=== PATIENT | male | born 1950 | race Caucasian/White ===

== ENCOUNTER 2023-04-23 09:35 | Day surgery (SDC) | payer OTHER, SELFPAY ==
--- NOTE | 2023-04-23 08:40 | P.ON_ITS ---
Date of procedure: 04/23/23 Procedure: Left sacroiliac joint injection - diagnostic Preop diagnosis includes pain secondary to Sacrum Disorder Postop diagnosis same Performed under fluoroscopic guidance Immediate complications none Anesthesia:none Solution used for injection: 2.5 milliliters 0.25% Marcaine Time out process compliant After informed consent obtained patient was brought to the procedure room placed in the prone position skin overlying the area was prepped and draped in a sterile fashion using betadine. 25 gauge spinal needle Insert over each of the target areas identified in fluoroscopy corresponding needles were advanced Under fluoroscopic guidance until the target/targets encountered , no indication of i ntravascular or Intraneuronal needle tip placement. Solution injected .needles removed post procedurally. patient transferred to recovery room in stable condition to be discharged home after meeting criteria Surgeon: Lisa Palm
[2023-04-23 10:07] VITALS: BP 123/72; PULSE 94; RESP 18; TEMP 36.3
[2023-04-23 10:53] VITALS: BP 125/73; PULSE 85; RESP 20; O2SAT 95
[2023-04-23] MEDS: METHYLPREDNISOLONE ACETATE 80 MG/ML VIAL INJ (10:55)
[2023-04-23] MEDS: BUPIVACAINE HCL 0.25% PF 25 MG/10 ML VIAL INJ (10:56)
[2023-04-23 10:58] VITALS: BP 132/78; PULSE 82; RESP 20; O2SAT 91
== END 2023-04-23 11:01 | disposition home or self-care (01) ==
LOC: SURGOUT 09:36
PROVIDERS: PCP Family Medicine; Visit Provider Anesthesiology Pain Medicine
DX: M53.3 Sacrococcygeal disorders, not elsewhere classified (principal)
CPT/HCPCS: 27096; J1040

== ENCOUNTER 2023-05-17 08:38 | Outpatient (OUT) | payer OTHER, SELFPAY ==
--- NOTE | 2023-05-17 08:53 | PM.CN ---
Consult Note: HPI Data of Consult Patient: known to practice within the last 3 years Consult date: 05/17/23 Requesting Physician: MYLENE ACUÑA NP Primary Care Provider: SUMANTH BECK Consult Narrative Narrative: Patient is here for f/u of left SI joint injection 04/23/23 . He received 100% relief of pain with increased fx. Pain today is left lower back SI area. No new sensorimotor or bowel or bladder issues. No adverse medication SE. Medication regimen assists patient with being better able to complete ADLs. cc:: CC: MYLENE ACUÑA NP Review of Systems ROS Status of ROS 10 or more systems reviewed and unremarkable except as noted in history and below Musculoskeletal Reports: back pain Meds Home Medications and Allergies Home Medications Medication Instructions Recorded Confirmed Type OSCAL WITH D PO .QD 04/18/23 History baclofen 10 mg tablet 10 mg PO TID PRN muscle spasm 04/18/23 04/23/23 History diclofenac sodium 75 mg 75 mg PO BID 04/18/23 04/23/23 History tablet,delayed release glucosamine-chondroitin 250 mg-200 2 tab PO .QD 04/18/23 04/23/23 History mg tablet (Osteo Bi-Flex) multivitamin 1 tab PO DAILY 04/18/23 04/23/23 History oxycodone-acetaminophen 5 mg-325 1 tab PO BID PRN pain 04/18/23 04/23/23 History mg tablet Allergies Allergy/AdvReac Type Severity Reaction Status Date / Time No Known Drug Allergies Allergy Verified 04/23/23 10:04 Exam Constitutional Documenting provider has reviewed patient's vital signs: yes Common normals: no apparent distress, average body habitus, oriented x3, no limitations, healthy appearing, alert and well nourished General appearance: cooperative, comfortable and well developed Orientation/consciousness: Yes awake, Yes oriented to person, Yes oriented to place and Yes oriented to time HENMT Common normals: normocephalic and moist oral mucous membranes Respiratory Common normals: normal respiratory effort, no retractions and no use of accessory muscles Effort & inspection: able to speak in complete sentences and symmetric chest movement Back & Pelvis Lumbar spine/lower back: normal to inspection, lumbar ROM normal, paraspinal muscle spasm and straight leg raise negative bilaterally Extremity Common normals: normal to inspection, normal capillary refill and no pedal edema Other: Muscle strength 5/5 bilat LE with intact sensation negative adrián, negative facet load Assessment and Plan Assessment and Plan (1) Sacroiliac joint pain: (2) Muscle spasm: Plan narcan RX percocet refill f/u 3 months
== END 2023-05-17 08:39 | disposition home or self-care (01) ==
LOC: PM 08:39
PROVIDERS: PCP Family Medicine; Visit Provider Nurse Practitioner
DX: M53.3 Sacrococcygeal disorders, not elsewhere classified (principal); M62.838 Other muscle spasm
CPT/HCPCS: G0463

== ENCOUNTER 2023-07-10 07:54 | Outpatient (OUT) | payer SELFPAY ==
--- NOTE | 2023-07-10 07:57 | PM.CN ---
Consult Note: HPI Data of Consult Patient: known to practice within the last 3 years Requesting Physician: Danielle Davila NP Primary Care Provider: SUMANTH BECK Consult Narrative Reason for consult: f/u Narrative: Regan ramirez pleasant 73 year old male presents for evaluation and management of chronic SIJ pain. Patient reports pain is well controlled since last injection in April, would like to hold off on additional injections at this time and return as pain worsens for repeat injection. cc:: CC: Danielle Davila NP Review of Systems ROS Status of ROS 10 or more systems reviewed and unremarkable except as noted in history and below Musculoskeletal Reports: joint pain (left SIJ) PFSH PFS Medical History (Updated 06/13/23 @ 13:44 by Rosalind Franco) Meds Home Medications and Allergies Home Medications Medication Instructions Recorded Confirmed Type OSCAL WITH D PO .QD 04/18/23 History baclofen 10 mg tablet 10 mg PO TID PRN muscle spasm 04/18/23 04/23/23 History diclofenac sodium 75 mg 75 mg PO BID 04/18/23 04/23/23 History tablet,delayed release glucosamine-chondroitin 250 mg-200 2 tab PO .QD 04/18/23 04/23/23 History mg tablet (Osteo Bi-Flex) multivitamin 1 tab PO DAILY 04/18/23 04/23/23 History oxycodone-acetaminophen 5 mg-325 1 tab PO BID PRN pain 04/18/23 04/23/23 History mg tablet oxycodone-acetaminophen 5 mg-325 1 tab PO BID PRN pain #60 tabs 06/14/23 Rx mg tablet (Percocet) Allergies Allergy/AdvReac Type Severity Reaction Status Date / Time No Known Drug Allergies Allergy Verified 04/23/23 10:04 Exam Constitutional Documenting provider has reviewed patient's vital signs: yes Common normals: no apparent distress, oriented x3, healthy appearing, alert and well nourished General appearance: cooperative HENMT Common normals: normocephalic, hearing grossly normal bilaterally and moist oral mucous membranes Head and scalp: normocephalic Eye Common normals: PERRL Pupil: PERRL Neck & C-Spine Common normals: full ROM General: normal visual inspection Chest Common normals: inspection of chest normal Respiratory Common normals: normal respiratory effort, no retractions and no use of accessory muscles Back & Pelvis Thoracic spine/upper back: normal to inspection Lumbar spine/lower back: normal to inspection, lumbar ROM normal and straight leg raise negative bilaterally Sacroiliac joints: SI joint(s) abnormal (left positive gaenslens, thigh thrust, FABERS) SI joint details: tender to palpation and pain elicited by compression of iliac crest maneuver Extremity Common normals: normal to inspection and full ROM Neuro Common normals: oriented x3, CN's II-XII intact bilaterally, moves all extremities, no focal motor deficits, no sensory deficits noted, deep tendon reflexes 2+ bilaterally and gait normal Sensorium/orientation: alert Motor exam: strength 5/5 throughout and no movement abnormalities noted Psych Common normals: mental status grossly normal, thought process normal, cooperative, affect normal, speech normal and activity/motor behavior normal Speech: normal speech Thought process: normal thought process Results Additional Findings Additional findings: I have checked an [place] report on this patient today and there are no aberrancies noted in the prescribing history.?? A drug screen was completed and reviewed within the last year, and if there has not been a drug screen completed we ordered one today to monitor higher risk, state monitored pain medication use. As part of providing excellent, safe, comprehensive care, the following was completed at our patient's visit: 1. A medication reconciliation and review to ensure accurate knowledge of current/active medications, including asking our patients to inform us about any [id number] medications or herbal remedies/nutritional supplements/alternative remedies. 2. A review to specifically ensure our patients have had annual screening for: elevated body mass index (BMI), tobacco use, screening for depression, and screening for unhealthy alcohol use. When screening is concerning, patients are provided with education and the specific recommendation to discuss the concerning health issue and treatment options with their primary care provider. Assessment and Plan Assessment and Plan (1) Sacroiliac joint pain: (2) Muscle spasm: Plan Repeat Left SIJ injection in 1-2 months or when patient is ready continue percocet 5-325mg BID PRN, narcan previously discussed and prescribed. No side effects from this medication continue baclofen 10mg TID PRN muscle spasms f/u 3 months or after injection
== END 2023-07-10 07:55 | disposition home or self-care (01) ==
PROVIDERS: PCP Family Medicine; Visit Provider Nurse Practitioner
DX: M62.838 Other muscle spasm (principal); M53.3 Sacrococcygeal disorders, not elsewhere classified
CPT/HCPCS: G0463

== ENCOUNTER 2023-09-19 07:59 | Outpatient (OUT) | payer OTHER, SELFPAY ==
--- NOTE | 2023-09-19 08:14 | PM.CN ---
Consult Note: HPI Data of Consult Patient: known to practice within the last 3 years Requesting Physician: Danielle Davila NP Primary Care Provider: SUMANTH BECK Consult Narrative Reason for consult: f/u Narrative: Regan Green a pleasant 73 year old male presents for evaluation and management of chronic sacroiliac joint pain, patient had >3 months of pain relief from last SIJ injection. Today rating pain 6/10 in left SIJ, feels like a stabbing pain. worse with activity. Patient finding benefit from current medication regimen, tolerating well without side effects cc:: CC: Danielle Davila NP Review of Systems ROS Status of ROS 10 or more systems reviewed and unremarkable except as noted in history and below Musculoskeletal Reports: joint pain PFSH PFSH Medical History Sacroiliitis, not elsewhere classified ?M46.1 - Sacroiliitis, not elsewhere classified (ICD-10) Meds Home Medications and Allergies Home Medications Medication Instructions Recorded Confirmed Type OSCAL WITH D PO .QD 04/18/23 History baclofen 10 mg tablet 10 mg PO TID PRN muscle spasm 04/18/23 04/23/23 History diclofenac sodium 75 mg 75 mg PO BID 04/18/23 04/23/23 History tablet,delayed release glucosamine-chondroitin 250 mg-200 2 tab PO .QD 04/18/23 04/23/23 History mg tablet (Osteo Bi-Flex) multivitamin 1 tab PO DAILY 04/18/23 04/23/23 History oxycodone-acetaminophen 5 mg-325 1 tab PO BID PRN pain 04/18/23 04/23/23 History mg tablet oxycodone-acetaminophen 5 mg-325 1 tab PO BID PRN pain #60 tabs 06/14/23 Rx mg tablet (Percocet) oxycodone-acetaminophen 5 mg-325 1 tab PO BID PRN pain #60 tabs 07/10/23 Rx mg tablet (Percocet) oxycodone-acetaminophen 5 mg-325 1 tab PO BID PRN pain #60 tabs 08/15/23 Rx mg tablet (Percocet) Allergies Allergy/AdvReac Type Severity Reaction Status Date / Time No Known Drug Allergies Allergy Verified 04/23/23 10:04 Exam Constitutional Documenting provider has reviewed patient's vital signs: yes Common normals: no apparent distress, oriented x3, healthy appearing, alert and well nourished General appearance: cooperative HENMT Common normals: normocephalic, hearing grossly normal bilaterally and moist oral mucous membranes Head and scalp: normocephalic Eye Common normals: PERRL Pupil: PERRL Neck & C-Spine Common normals: full ROM General: normal visual inspection Chest Common normals: inspection of chest normal Respiratory Common normals: normal respiratory effort, no retractions and no use of accessory muscles Back & Pelvis Sacroiliac joints: SI joint(s) abnormal (left positive gaenslens, thigh thrust, FABERS) SI joint details: tender to palpation and pain elicited by compression of iliac crest maneuver Extremity Common normals: normal to inspection and full ROM Neuro Common normals: oriented x3, CN's II-XII intact bilaterally, moves all extremities, no focal motor deficits, no sensory deficits noted, deep tendon reflexes 2+ bilaterally and gait normal Sensorium/orientation: alert Motor exam: strength 5/5 throughout and no movement abnormalities noted Psych Common normals: mental status grossly normal, thought process normal, cooperative, affect normal, speech normal and activity/motor behavior normal Speech: normal speech Thought process: normal thought process Assessment and Plan Assessment and Plan (1) Sacroiliac joint pain: (2) Chronic prescription opiate use: Assessment and Plan: I have refilled the patient's opioid prescriptions at the above noted dose and schedule.? I feel these medications are improving the patient's quality of life and allow them to tolerate activities of daily living as well as participate in recreational activity.? The patient does not report intolerable side effects. The patient is NOT opioid naive and non-pharmacologic and non-opioid treatment has failed to significantly relieve the patient's pain and improve functionality. The patient has a diagnosis that is related to a somatic or visceral pain etiology. ? ?? I reviewed with the patient the potential risks and side effects with the use of? opioid medications including but not limited to respiratory depression,? sedation, and even . I verified the patient has access to naloxone should? these effects occur. I advised the patient to avoid the use of any other? sedation substances including alcohol, THC, and benzodiazepines while? taking opioid medications due to the risk of compounding side effects and? detrimental outcomes. I reviewed the [employer], pain treatment agreement, urine? drug screen, and opioid start talking forms. The patient was advised to let? their family know they had Naloxone in case they would need to administer? the medication.? ?? A drug screen was completed within the last year, and no aberrancies were noted regarding their use of controlled substances. The patient understands they are subject to the terms and conditions of the pain contract that they have signed. ? ?? I have checked an [place] report on this patient today and there are no aberrancies noted in the prescribing history.? Plan left SIJ injection under fluoroscopy increase tizanidine 4mg tab 1-2 tabs TID PRN muscle spasms patient again inquiring about marijuana as he was previously utilizing opioids and marijuana with last pain management physician. Patient educated on our policy and we will not prescribe opioids if patient utilizes marijuana. continue percocet 5-325 BID PRN moderate to severe pain f/u after SIJ injection
== END 2023-09-19 08:00 | disposition home or self-care (01) ==
PROVIDERS: PCP Family Medicine; Visit Provider Nurse Practitioner
DX: M53.3 Sacrococcygeal disorders, not elsewhere classified (principal); Z79.891 Long term (current) use of opiate analgesic
CPT/HCPCS: G0463

== ENCOUNTER 2023-10-24 06:30 | Day surgery (SDC) | payer OTHER, SELFPAY ==
[2023-10-24 06:59] VITALS: BP 123/78; PULSE 80; RESP 16; O2SAT 99
[2023-10-24] MEDS: BUPIVACAINE HCL 0.25% PF 25 MG/10 ML VIAL 4 ML INJ (07:28)
[2023-10-24] MEDS: METHYLPREDNISOLONE ACETATE 80 MG/ML VIAL INJ (07:28)
--- NOTE | 2023-10-24 08:48 | W.PM.PROCNOT ---
Date of procedure: 10/24/23 Pre-op diagnosis: sacroiliitis Post-op diagnosis: same as pre-op Procedure: Left sacroiliac joint injection Preop diagnosis includes pain secondary to Sacroiliitis Performed under fluoroscopic guidance Immediate complications none Anesthesia:none Solution used for injection: 0.25% Marcaine 3ml, Depo 80mg Time out process compliant After informed consent obtained patient was brought to the procedure room placed in the prone position skin overlying the area was prepped and draped in a sterile fashion using betadine. 25 gauge spinal needle Insert over each of the target areas identified in fluoroscopy corresponding needles were advanced Under fluoroscopic guidance until the target/targets encountered , no indication of intravascular or Intraneuronal needle tip placement. Solution injected .needles removed post procedurally. patient transferred to recovery room in stable condition to be discharged home after meeting criteria Anesthesia: Local Surgeon: Lisa Palm Condition: stable
--- OUTSIDE RECORDS SUMMARY | 2023-10-24 10:20 | XMS_ITS | CCD ---
Author Name Unknown Address [address] [place] [address] Organization [facility] Care Team Providers Care Decision Analyst Name Role Phone PHYSICIAN, DEFAULT Unavailable Unavailable PHYSICIAN, DEFAULT Unavailable Unavailable EBRAHEIM, BILLY Unavailable Unavailable EBRAHEIM, BILLY Unavailable Unavailable SELF, REFERRED Unavailable Unavailable SELF, REFERRED Unavailable Unavailable SOSA ., DR ROMERO Ruiz Attending Unavailable SOSA ., DR ROMERO Ruiz Admitting Unavailable DEFRANCE, DR JULIO Primary Care Unavailable SOSA ., DR ROMERO Ruiz Consulting Unavailable GEETAANTONIA CRUZ Consulting Unava ilable SOSA ., DR ROMERO Ruiz Attending Unavailable SOSA ., DR ROMERO Ruiz Admitting Unavailable SALMERON ., ISELA Consulting Unavailable DEFRANCE, DR JULIO Primary Care Unavailable SOSA ., DR ROMERO Ruiz Attending Unavailable SOSA ., DR ROMERO uRiz Admitting Unavailable SALMERON ., ISELA Consulting Unavailable DEFRANCE, DR JULIO Primary Care Unavailable SOSA ., DR ROMERO Ruiz Attending Unavailable SOSA ., DR ROMERO Ruiz Admitting Unavailable DEFRANCE, DR JULIO Primary Care Unavailable SOSA ., DR ROMERO Ruiz Consulting Unavailable DEFRANCE, DR JULIO Consulting Unavailable SOSA ., DR ROMERO Ruiz Attending Unavailable SOSA ., DR ROMERO Ruiz Admitting Unavailable SALMERON ., ISELA Consulting Unavailable DEFRANCE, DR JULIO Primary Care Unavailable LAKSHMIPATHY ., LBAKE Consulting Ceci vailable LAKSHMIPATHY ., BLAKE Attending Ceci vailable LAKSHMIPATHY ., BLAKE Admitting Ceci vailable DEFRANCE, DR JULIO Primary Care Unavailable HALKER .MYLENE Consulting Unavailable SOSA ., DR ROMERO Ruiz Admitting Unavailable DEFRANCE, DR JULIO Primary Care Unavailable SOSA ., DR ROMERO Ruiz Consulting Unavailable SOSA ., DR ROMERO Ruiz Attending Unavailable LAKSHMIPATHY ., NARENDYUMI Admitting Ceci vailable LAKSHMIPATHY ., NARENDYUMI Attending Ceci MYLENE Anton Unavailable DEFRANCE, DR JULIO Primary Care Unavailable SHEILA ., DR ROMERO Ruiz Attending Unavailable SOSA ., DR ROMERO Ruiz Admitting Unavailable DEFRANCE, DR JULIO Primary Care Unavailable SHEILA ., DR ROMERO Ruiz Consulting Unavailable JARON ., ISELA Attending Unavailable SALMERON ., ISELA Admitting Unavailable DEFRANCE, DR JULIO Primary Care Unavailable ZIEBER, DR ALESSANDRO Gudino Consulting Unavailable SALMERON ., ISELA Consulting Unavailable SHEILA ., DR ROMERO Ruiz Attending Unavailable SOSA ., DR ROMERO Ruiz Admitting Unavailable DEFRANCE, DR JULIO Primary Care Unavailable SALMERON ., ISELA Consulting Unavailable Charity Barkley Unavailable MD Charity Barkley Attending Provider Charity Barkley Attending Unavailable NON STAFF Primary Care Unavailable Charity Barkley Admitting Unavailable NON STAFF Primary Care Unavailable Charity Barkley Admitting Unavailable Charity Barkley Attending Unavailable NON STAFF Primary Care Provider Unavailabl e Medications Current Medications Medication Drug Class(es) Dates Sig (Normalized) Sig (Original) Acetaminophen / oxyCODONE (4 sources) Opioid Agonist Percocet Active Calcium (4 sources) Phosphate Binder, Calcium Calcium + D3 Active Centrum Silver (4 sources) Centrum Silver Active Chondroitin Sulfates / Glucosamine (4 sources) Osteo Bi-Flex On e Per Day Active Diclofenac (4 sources) Nonsteroidal Anti-inflammatory Drug Diclofenac Active Elderberry preparation (4 sources) Elderberry 500 M G as directed Orally Active Super B Complex (4 sources) Super B Complex Active tiZANidine 4 mg oral tablet (4 sources) Central alpha-2 Adrenergic Agonist take 1 tablet by mouth every eight hours tiZANidine HCl 4 MG 1 tablet as needed Orally Three times a day Active Completed/Discontinued Medications Medication Drug Class(es) Dates Sig (Normalized) Sig (Original) triamcinolone acetonide 40 mg/ml injectable suspension (7 sources) Corticosteroid Start: 07-23-2023 Kenalog-40 Aug, 40 mg Start: 05-21-2023 Kenalog-40 May, 20 mg Problems Active Problems Problem Classification Problem Date Documented Date Episodic/Chronic Osteoarthritis (20 sources) Bilateral primary osteoarthritis of hip; Translations: [Unilateral primary osteoarthritis of first carpometacarpal joint, left hand] Onset: 04-16-2018 Chronic Other connective tissue disease (1 source) Arthrodesis status; Translations: [ARTHRODESIS STATUS] Onset: 04-16-2018 Episodic Other connective tissue disease (1 source) Other muscle spasm; Translations: [OTHER MUSCLE SPASM] Onset: 04-03-2023 Episodic Other connective tissue disease (2 sources) Pain in left hand; Translations: [PAIN IN LEFT HAND] Onset: 10-01-2022 Episodic Other connective tissue disease (3 sources) Impingement syndrome of right shoulder Episodic Other injuries and conditions due to external causes (1 source) Personal history of (healed) traumatic fracture; Translations: [PERSONAL HISTORY OF (HEALED) TRAUMATIC FRACTURE] Onset: 04-16-2018 Episodic Other nervous system disorders (5 sources) Other chronic pain; Translations: [OTHER CHRONIC PAIN] Onset: 10-11-2022 Chronic Other non-traumatic joint disorders (4 sources) Other specified arthritis, left hand; Translations: [OTHER SPECIFIED ARTHRITIS LEFT HAND] Onset: 02-21-2023 Chronic Other non-traumatic joint disorders (3 sources) Pain in right shoulder Episodic Spondylosis; intervertebral disc disorders; other back problems (18 sources) Sacroiliitis, not elsewhere classified; Translations: [Other intervertebral disc degeneration, lumbar region] Onset: 04-16-2018 Chronic Spondylosis; intervertebral disc disorders; other back problems (6 sources) Sacrococcygeal disorders, not elsewhere classified; Translations: [Intervertebral disc disorders with radiculopathy, lumbar region] Onset: 07-17-2022 Episodic Sprains and strains (3 sources) Other sprain of right shoulder joint, initial encounter Episodic Superficial injury; contusion (3 sources) Contusion of right shoulder, initial encounter Episodic Unclassified (2 sources) Unknown / UNK(Unknown) Onset: 04-16-2018 Unclassified (4 sources) LOW BACK PAIN, UNSPECIFIED; Translations: [LOW BACK PAIN, UNSPECIFIED] Onset: 10-11-2022 Unclassified (1 source) CONTACT W/AND (SUSP) EXPOS COVID-19; Translations: [CONTACT W/AND (SUSP) EXPOS COVID-19] Onset: 10-11-2022 Unclassified (1 source) Pain in right shoulder; Translations: [Pain in right shoulder] Onset: 06-24-2023 Unclassified (1 source) Pain in left hand; Translations: [Pain in left hand] Onset: 05-21-2023 Past or Other Problems Problem Classification Problem Date Documented Da te Episodic/Chronic Unclassified (1 source) LOW BACK PAIN, UNSPECIFIED; Translations: [LOW BACK PAIN, UNSPECIFIED] Onset: 11-22-2022 Results Test Name Value Interpretation Reference Range Facil ity XR shoulder RT min 2V*on XR shoulder RT min 2V* [facility] Main [address] [address] XRay Report Signed Patient: Regan Green MR#: [id number] 63 : 1950 Acct:[id number] Age/Sex: 73 / M ADM Date: 06/24/23 Loc: [facility] [place] Room: Type: [facility] CLI Attending Dr: Charity Barkley MD Copies to: Charity Barkley MD Ordering Provider: Charity Barkley MD Date of Service: 06/24/23 XR/XR shoulder RT min 2V*: Acute pain of right shoulder 3 views RIGHT shoulder plain film HISTORY: RIGHT shoulder pain COMPARISON: None ACUTE FINDINGS: None DEGENERATIVE CHANGE: Acromioclavicular marginal spurring inferiorly. Acromial spurring. Spurring of the glenohumeral joint SOFT TISSUE FINDINGS: Unremarkable JOINT EFFUSION: None POSTOP CHANGES: None BONY MINERALIZATION: Adequate XR/XR shoulder RT min 2V* IMPRESSION: Degenerative change. Impression dictated by: Artie Goldsmith M.D.06/24/2023 12:37 PM Dictation Location: [place] [address] Transcribed By: [facility] 06/24/23 1237 Dictated By: Artie Goldsmith DO 06/24/23 1236 Signed By: 06/24/23 1237 Normal [facility] XR hand LT min 3V*on 023 XR hand LT min 3V* [facility] Main [address] [address] XRay Report Signed Patient: Regan Green MR#: [id number] [birth year] : 1950 Acct:[id number] Age/Sex: 73 / M ADM Date: 05/21/23 Loc: [facility] [place] Room: Type: REG CLI Attending Dr: Charity Barkley MD Copies to: Charity Barkley MD Ordering Provider: Charity Barkley MD Date of Service: 05/21/23 XR/XR hand LT min 3V*: Left hand pain LEFT HAND - 5 views REASON FOR EXAM: Severe left CMC joint pain of the thumb for months. COMPARISON: Left hand series 01/18/2022 FINDINGS: No focal soft tissue abnormality. Severe degenerative changes involving the CMC joint of the thumb. No acute bony process is seen. IP joints demonstrate mild degenerative changes. Mild degenerative changes of the MCP joints of the first and third digits. No bony erosions. XR/XR hand LT min 3V* IMPRESSION: DEGENERATIVE CHANGES INVOLVING THE LEFT HAND, WORST AT THE CMC JOINT OF THE THUMB. NO ACUTE BONY PROCESS. Impression dictated by: Regan Vigil Jr., D.OLeonides05/21/2023 1:53 PM Dictation Location: [place] [address] Transcribed By: [facility] 05/21/23 1353 Dictated By: Regan Vigil Jr, DO 05/21/23 1352 Signed By: 05/21/23 1353 [facility] Covid-19 PCR (CVDTBH)on SARS-CoV-2 (COVID-19) RNA YASMIN+probe Ql (Unsp spec) Not detected Normal NOT DETECTED [facility] Comment on above: Result Comment: This test is not yet jory roved or cleared by the [place] FDA. When there are no FDA-approved or cleared tests available, and other criteria are met, FDA can make tests available under an emergency access mechanism called an Emergency Use Authorization (EUA). The EUA for this test is supported by the [place] of Health and Human Service's (HHS's) declaration that circumstances exist to justify the emergency use of in vitro diagnostics for the detection and/or diagnosis of the virus that causes COVID-19. This EUA will remain in effect (meaning this test can be used) for the duration of the COVID-19 declaration justifying emergency of IVDs, unless it is terminated or revoked by FDA (after which the test may no longer be used). When diagnostic testing is negative, the possibility of a false negative should be considered in the context of a patient's recent exposures and the presence of clinical signs and symptoms consistent with SARS-CoV-2. Performed By: #### C [facility] #### [place] [address] Dr. Keely Fitzgerald MRI Shoulder w/o Lefton 02-03 MRI Shoulder w/o Left HISTORY: Lifting injury. Patient felt a pop and snap one month ago. COMPARISON: None available TECHNIQUE: Multiplanar multisequence MRI was performed of the left shoulder without contrast. FINDINGS: Degenerative changes of the acromioclavicular joint with moderate undersurface osteophyte formation. The acromion is curved. Coracoclavicular ligament is intact. Small amount of subacromial/subdeltoid bursal fluid. Full thickness tear of distal supraspinatus tendon at the footprint with retraction of torn fibers approximately 2.5 cm. Low-grade intrasubstance tear along the myotendinous junction of infraspinatus. Subscapularis and teres minor tendons are intact. No atrophy or fatty infiltration of the rotator cuff musculature. Full thickness tear of the intra-articular long head biceps tendon. Mildly displaced tear of the posterior superior labrum superimposed on anterior superior through posterior superior labral degeneration. No well-defined or measurable articular cartilage defect or subchondral bone marrow edema. No glenohumeral joint effusion. IMPRESSION: Full thickness tear of distal supraspinatus tendon at the footprint with retraction of torn fibers approximately 2.5 cm. Low-grade intrasubstance tear along the myotendinous junction of infraspinatus. Full thickness tear of the intra-articular long head biceps tendon. Mildly displaced tear of the posterior superior labrum superimposed on anterior superior through posterior superior labral degeneration. Report reported and signed by Boogie Modi on 02/23/2022 1229 Normal [facility] [employer] Operator Brenna 04-28-2021 CNPN Telephone (KeyprDorene) -------- REGAN GREEN ([id number]) 1950 Date Time Provider Department 04/28/21 OZZY PEREZ During your visit today, we recorded the following information about you: Iwona Mcginnis 04/28/2021 10:08 AM Signed PSA order mailed to home address Allergies As of Date: 04/28/2021 (No Known Allergies) Date Reviewed: 05/01/2017 Reviewed by: Michell Correia Ma - Fully Assessed Reason for Visit: Orders [681] Prescriptions as of 04/28/2021 Sig: ASPIRIN 81 MG TABLET,DELAYED * Take 81 mg by mouth once sharita* PERCOCET ORAL Take 1 tablet by mouth once d* SILDENAFIL (PULMONARY HYPERTE* Take 2-5 tablets by mouth one* OXYBUTYNIN CHLORIDE 5 MG TABL* Take 1 tablet by mouth every * KETOROLAC 10 MG TABLET Take 1 tablet by mouth every * DOCUSATE SODIUM 100 MG CAPSULE Take 1 capsule by mouth twice* CIPROFLOXACIN 500 MG TABLET Take 1 tablet by mouth once d* Problem List As Of Date 04/28/2021 Noted Resolved Malignant neoplasm of prostate (HCC) [C61] 02/07/2017 Partial small bowel obstruction (HCC) [K56.600] 03/12/2017 03/12/2017 Rash/skin eruption [R21] 03/12/2017 UTI (urinary tract infection) [N39.0] 05/08/2017 Encounter Status:Closed by IWONA BUENO on 04/28/21 Normal [facility] PELVIS 1 OR 2 [facility] 04-16-20 18 [facility] [address] [place] [id number] ==Patient Name: REGAN GREEN : 1950ex: MAge: Race: WhiteMRN: [id number]. Location: 84Patient Status: OVisit #: [id number] Date: 04/16/2018 9:20:00 AMCompleted Date: 04/16/2018 09:18 AMRequesting Provider: BILLY KILLIAN Attending Provider: BILLY KILLIAN Report Copy To: Signs & Symptoms: M46.1 Sacroiliitis, not elsewhere classified W31Ijfxgjw: AthenaComments: , , , Ordering Provider - BILLY KILLIAN MD , Exam: PELVIS 1 OR 2 VWSAccession #: [id number] =========PELVIS 1 OR 2 VWS 04/16/2018 9:18 AM EDT SIGNS AND SYMPTOMS: M46.1 Sacroiliitis, not elsewhere classified I10 TECHNOLOGIST COMMENTS: ortho check up for pelvis area QUESTION FOR THE RADIOLOGIST: , , , Ordering Provider - BILLY KILLIAN MD , PROTOCOL: AP(PA) view was obtained. COMPARISON: May 27, 2008 FINDINGS: Soft tissues:Interval surgical clips along the pelvis with unchanged phlebolithsMinor heterotopic ossification along the left hip Bones:Posterior column and wall plate fixation of healing fracture Joints:Moderate bilateral hip osteoarthritisMild sacroiliac spurring and sclerosis IMPRESSION: 1. No acute abnormality2. Bilateral moderate hip osteoarthritis3. Pre-existing left posterior wall and column plate fixation of healed acetabular fracture Electronically signed by:Rios Le. Transcribed by: [email or web address], User Resident: Electronically Signed by: RIOS LE @ 04/16/2018 10:35 AM Normal [facility] Comment on above: Order Comment: , , , Ordering Provider - BILLY KILLIAN MD , Vital Signs Date Time Vital Sign Value Performing Clinician Saeed hernandez 05-21-2023 10:00-0400 Body height 182.88 cm Charity Barkley Other [employer] Other 05-21-2023 10:00-0400 Body mass index (BMI) [Ratio] 30.51 kg/m2 Charity Barkley Other [facility] Other 05-21-2023 10:00-0400 Body weight 102.06 kg Charity Deshawnarnol Other [employer] Other Encounters Encounter Date Encounter Type Care Provider Facility Start: 08-20-2023 End: 08-20-2023 ambulatory Charity Barkley Other [facility] Other Start: 08-20-2023 Office outpatient vi sit 15 minutes Charity Calvey [facility] Start: 07-23-2023 End: 07-23-2023 ambulatory Charity Barkley Other [facility] Other Start: 07-23-2023 Office outpatient vi sit 15 minutes Charity Calvey [facility] Start: 06-24-2023 Office outpatient vi sit 15 minutes Charity Calvey [facility] Start: 06-24-2023 End: 06-24-2023 ambulatory NON STAFF Facility:[facility] Start: 06-24-2023 End: 06-24-[address] [facility] Work Phone: Start: 06-24-2023 End: 06-24-2023 Patient encounter procedure MD Charity Barkley Work Phone: [facility] Start: 05-21-2023 Office outpatient ne w 30 minutes Charity Barkley [facility] Start: 05-21-2023 End: 05-21-2023 ambulatory Charity R Filippo [facility] Work Phone: Start: 05-21-2023 End: 05-21-2023 Patient encounter procedure MD Charity Barkley Work Phone: [facility] Start: 03-19-2023 End: 03-20-2023 ambulatory NARENDRANATH LAKSHMIPATHY . Facility:[facility] Start: 02-21-2023 End: 02-22-2023 ambulatory NARENDRANATH SHEYSHMIPATHY . Facility:[facility] Start: 12-18-2022 End: 12-19-[address] ROMERO SOSA . Facility:[facility] Start: 11-22-2022 End: 11-23-[address] ROMERO SOSA . Facility:[facility] Start: 10-11-2022 Encounter for preprocedural laboratory examination DR ROMERO SOSA . [facility] Start: 10-09-2022 End: 10-09-[address] ROMERO SOSA . Facility:[facility] Start: 10-05-2022 End: 10-06-[address] ROMERO SOSA . Facility:[facility] Start: 10-05-2022 End: 10-06-2022 Encounter for preprocedural laboratory examination DR ROMERO SOSA . Facility:[facility] Start: 10-01-2022 Encounter for preprocedural cardiovascular examination ISELA SALMERON . [facility] Start: 09-26-2022 End: 09-27-2022 ambulatory ISELA SALMERON . Facility:[facility] Start: 09-26-2022 End: 09-27-2022 Encounter for preprocedural cardiovascular examination ISELA SALMERON . Facility:[facility] Start: 09-20-2022 End: 09-21-[address] ROMERO SOSA . Facility:[facility] Start: 08-02-2022 End: 08-03-[address] ROMERO SOSA . Facility:[facility] Start: 07-17-2022 End: 07-17-[address] ROMERO SOSA . Facility:[facility] Start: 06-14-2022 End: 06-15-[address] ROMERO SOSA . Facility:[facility] Start: 04-16-2018 End: 04-17-2018 Ambulatory BILLY KILLIAN Facility:[facility] Start: 01-28-2018 End: 01-29-2018 Ambulatory DEFAULT PHYSICIAN Facility:[facility] Procedures Date Procedure Procedure Detail Performing Clinician Start: 06-24-2023 Plain X-ray of right shoulder MD Charity Barkley Work Phone: Start: 05-21-2023 Plain X-ray of left hand MD Charity Barkley Work Phone: Payers Date Payer Category Payer Self-pay [id number] 2023 Unknown [id number] 1957 Medicare [id number] 1959 Unknown [id number] 1959 Unknown [id number] 1950 Unknown [id number] [id number] 1950 Unknown [id number] [id number] 1950 Unknown [id number] 2.16.840.1.760708.3.579.2.593 1950 Unknown [id number] 2.16.840.1.593872.3.579.2.593 1950 Unknown [id number] 2.16.840.1.438407.3.579.2.593 1950 Unknown [id number] 2.16.840.1.538374.3.579.2.593 1950 Unknown [id number] 2.16.840.1.903454.3.579.2.593 1950 Unknown [id number] 2.16.840.1.077367.3.579.2.593 1950 Unknown [id number] 2.16.840.1.225091.3.579.2.593 1950 Unknown [id number] 2.16.840.1.548979.3.579.2.593 1950 Unknown [id number] 2.16.840.1.550462.3.579.2.593 Unknown Unknown [facility] [id number] Unknown [id number] [id number] Unknown [id number] [id number] Worker's Compensation [id number] Social History Date Type Detail Facility Unknown if ever smoked [facility] Work Phone: Sex Assigned At Sex Assigned At Bir th [employer] Other Start: 1950 Sex Assigned At Male F [facility] Clinical Notes 06-14-2022 to 08-20-2023 Note Date & Type Note Facility 08-20-2023 Evaluation note Encounter Date Diagnosis Assessment Notes Aug, Primary osteoarthritis of first carpometacarpal joint of left hand (ICD-10 - M18.12) We performed a cortisone injection into the CMC joint under sterile technique. The patient tolerated this well without complication . We discussed that the finger may feel numb and tingle for hours after this injection. Aug, Sprain of other part of right shoulder region, initial encounter (ICD-10 - S43.491A) Aug, Contusion of right shoulder, initial encounter (ICD-10 - S40.011A) Aug, Arthritis of right shoulder region (ICD-10 - M19.011) Aug, Subacromial impingement of right shoulder (ICD-10 - M75.41) Aug, Acute pain of right shoulder (ICD-10 - M25.511) [facility] [employer] Other 09-19-2023 Evaluation note* Encounter Date Diagnosis Assessment Notes Treatment Notes Treatment Clinical Notes Jul, Sprain of other part of right shoulder region, initial encounter (ICD-10 - S43.491A) Jul, Primary osteoarthrit is of first carpometacarpal joint of left hand (ICD-10 - M18.12) Jul, Contusion of right shoulder, initial encounter (ICD-10 - S40.011A) Jul, Arthritis of right shoulder region (ICD-10 - M19.011) Jul, Subacromial impingement of right shoulder (ICD-10 - M75.41) Right shoulder injected with cortisone under sterile technique, patient tolerated well Jul, Acute pain of right shoulder (ICD-10 - M25.511) [employer] Other 08-21-2023 Evaluation note* Encounter Date Diagnosis Assessment Notes Treatment Notes Treatment Clinical Notes Jun, Sprain of other part of right shoulder region, initial encounter (ICD-10 - S43.491A) Patient instructed on the use of Lidocaine Patches and Voltaren Gel Jun, Primary osteoarthrit is of first carpometacarpal joint of left hand (ICD-10 - M18.12) Patient doing well, he will continue to progress and allow cortisone to continue to keep pain under control. Jun, Contusion of right shoulder, initial encounter (ICD-10 - S40.011A) Jun, Arthritis of right shoulder region (ICD-10 - M19.011) Jun, Subacromial impingement of right shoulder (ICD-10 - M75.41) Jun, Acute pain of right shoulder (ICD-10 - M25.511) [employer] Other 07-18-2023 Evaluation note* Encounter Date Diagnosis Assessment Notes Treatment Notes Treatment Clinical Notes May, Left hand pain (ICD-10 - M79.642) May, Primary osteoarthritis of first carpometacarpal joint of left hand (ICD-10 - M18.12) The patient is suffering from degenerative arthritis involving the thumb CMC joint. We discussed the conservative treatment options which can be beneficial in relieving pain, including hand occupational therapy, wearing a brace, and non-steroidal anti-inflammatory medication. We discussed the use of occasional cortisone injections that can provide pain relief. , We performed a cortisone injection into the CMC joint under sterile technique. The patient tolerated this well without complication. We discussed that the finger may feel numb and tingle for hours after this injection. Patient given order for occupational therapy and braces [employer] Other 05-16-2023 NoteCONSULTATION CONSULTATION DATE: 03/19/2023 TO: Juan Carlos Ngo M.D. CHIEF COMPLAINT: Patient was seen today complaining of pain in his left lower back and hip area. HISTORY: He describes it at 5-7/10 pain, sharp in character, increased with activities such as standing, walking and performing transitioning maneuvers. He feels most comfortable in the semi-recumbent position. Denies any change in bowel and bladder habits or new sensorimotor changes in the lower extremities. EXAM: Notable for patient having no clinical radiculopathy or myelopathy involving his lower extremities. The patient did have a positive left sided FABERs sign and Gaenslen's maneuver, as well as pelvic compression test, and the patient had a fair amount of myofascial spasm involving the lumbar paravertebral muscles on the left side. 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 RECOMMENDATIONS: I have recommended we proceed with a left SI joint injection utilizing Marcaine 0.25% and Depo-Medrol 80 mg for therapeutic purposes. I have asked him to trial to discontinue his baclofen. We will trial him on Skelaxin for his myofascial spasm 800 mg b.i.d., and he was asked to follow up with your office in terms of trying to procure him a sleep aid, as the patient was requesting in our office. We redirected him to your office in regards to the same. As part of providing excellent, safe, comprehensive care, the following was completed at our patient's visit: 1. A medication reconciliation and review to ensure accurate knowledge of current/active medications, including asking our patients to inform us about any [id number] medications or herbal remedies/nutritional supplements/alternative remedies. 2. A review to specifically ensure our patients have had annual screening for: elevated body mass index (BMI, see intake chart for exact total), tobacco use, screening for depression, and screening for unhealthy alcohol use. When screening is concerning, patients are provided with education and the specific recommendation to discuss the concerning health issue and treatment options with their primary care provider.[facility] [id number] Note CONSULTATION PROCEDURE DATE: 02/21/2023 PROCEDURE: Right first MC joint injection. PREOPERATIVE DIAGNOSIS: Pain secondary to arthritis of left first MC joint. POSTOPERATIVE DIAGNOSIS: Pain secondary to arthritis of left first MC joint. INDICATIONS: Patient had mild edema overlying the area of his left first MC joint, point tenderness over the articulation of the first MC joint, mainly on the medial aspect. Range of motion was intact. He had no sensory deficits involving his left upper extremity. SOLUTION USED FOR INJECTION: 2 mL of 0.25% Marcaine, 40 mg of Kenalog, total of 2 mL and 1 mL was used for the injection. IMMEDIATE COMPLICATIONS: None. PROCEDURE: After informed consent was obtained from the patient, placed in the sitting position. Skin overlying the area of the left first MC joint was prepped with alcohol. A 25 gauge, 1 1/2 inch needle was inserted over this area and directed towards the same. After entering the joint space, no indication of intravascular or intraneural needle tip placement. 1 mL of solution was injected. He reports almost 100% reduction in pain symptoms post procedurally. Post procedure, needle was removed. He was discharged after meeting criteriaThe [facility] [id number] NoteCONSULTATION CONSULTATION DATE: 12/18/2022 CHIEF COMPLAINT: Left hand pain. HISTORY OF PRESENT ILLNESS: This is a very pleasant, 72-year-old gentleman who has severe pain in his left hand. He rates it a 9/10; a sharp, throbbing sensation. The patient has an appointment with Dr. Barkley, orthopedist, hand specialist; however, it is in May, the soonest available. The patient is on a wait list. The patient currently takes Percocet 5/325 b.i.d., diclofenac 75 mg b.i.d., baclofen 10 mg h.s. The patient also uses medical marijuana in the evenings. ADLs, activities, opening thing aggravate the patient's pain. The patient has an x-ray of his left hand, which shows subluxation along the carpal metacarpal digit of his thumb on the left hand side. Arthrosis is also noted along the metacarpophalangeal joint and the distal phalangeal joints on the left hand side, digit one. The patient has muscle atrophy noted along the left hand arthrosis. PHYSICAL EXAMINATION: Upon physical examination, this is a pleasant, cooperative gentleman, who does not appear to be in any acute distress. VITAL SIGNS: Stable at 138/88 with a heart rate of 85. At a height of 6', the patient weighs 102 kg. FOCUSED EVALUATION OF THE LEFT HAND: The patient is exquisitely tender along the carpal metacarpal joint on the left hand side along digit one. The patient also has tenderness along the metacarpophalangeal joint along the thumb, consistent with the arthrosis noted on the x-rays. DIAGNOSIS: Current working diagnosis on the patient is multifocal osteoarthritic degenerative changes, loss of left thenar eminence, subluxation of the metacarpal carpal bone on the left hand, digit one, secondary to degenerative changes. PLAN: We will inject the joint in a temporizing manner. Education was done with the patient, reviewing the x-rays. The patient was encouraged to maintain his appointment with Dr. Barkley and to follow up phone call for earlier input. The patient understands and would like to proceed. CC: Juan Carlos Ngo M.D.[facility] [id number] NoteCONSULTATION PROCEDURE DATE: 12/18/2022 PREOPERATIVE DIAGNOSIS: Osteoarthritis of the carpal metacarpal joint, digit one, and the metacarpophalangeal joint, digit one. POSTOPERATIVE DIAGNOSIS: Osteoarthritis of the carpal metacarpal joint, digit one, and the metacarpophalangeal joint, digit one. PROCEDURE: Carpal metacarpal injection, digit one, x1 and metacarpophalangeal joint injection, digit one, x1. Subsequent to obtaining informed consent, the patient was placed in the sitting position. Alcohol prep was used to sterilize the site. A 25 gauge needle was advanced and it comes to rest in the carpal metacarpal joint, digit one, on the left hand side. Negative aspiration. Marcaine 0.125% along with Kenalog 20 mg are placed in the carpal metacarpal joint, digit one, and the metacarpophalangeal joint, digit one. Negative heme. The patient tolerated the procedure well, without any overt complication, will be followed up in the office.[facility] [id number] NoteCONSULTATION CONSULTATION DATE: 11/22/2022 HISTORY OF PRESENT ILLNESS: This is a 72-year-old, active gentleman who returns to the clinic status post bilateral RFA of L2, L3 and L4, L5 completed on 10/09/2022. The patient states he has had 85% relief thus far. This was a repeat RFA, and he did state it felt longer for the improvement to surface. He just has some right lower lumbar tightness, but he works it out with exercise. He does have significant left CMC joint osteoarthritis, which we have obtained x-rays for in the past. It has given him increased pain as well, and does wake him through the night. Activities for his back include lifting, pushing, pulling and sitting too long aggravate his pain. Medications include diclofenac 75 mg b.i.d., Percocet 5/325 b.i.d., multivitamin regimen. Patient's REVIEW OF SYSTEMS / PAST MEDICAL HISTORY / ALLERGIES and IMAGES have been reviewed and noted on the chart. PHYSICAL EXAM: VITAL SIGNS: Blood pressure 133/84, heart rate is 91. His temperature is 97.5. He is 6' tall, weighs 102 kg. GENERAL IMPRESSION: Pleasant, appropriate, no acute distress. FOCUSED EXAM - BACK: Range of motion is functional in lateral rotation and flexion/extension. Right lower lumbar paravertebral muscles are taut but non-spasmodic. No spinal axial pain was reproduced. Philip's point non-tender bilaterally. Negative FABERs and compression test. MUSCULOSKELETAL: Motor is intact bilateral lower extremities, 5/5. Patient walks unassisted with a steady gait. Good muscle tone. Left hand CMC joint with edema and tenderness. Range of motion is decreased. NEUROLOGICALLY: Patient is cognitively intact. Radicular sensory is intact as well. +2 bilateral lower extremity reflexes. DIAGNOSIS: Lower back pain, lumbar spondylosis, lumbar degenerative disc disease and left CMC joint osteoarthritis. PLAN: We will start him on baclofen 10 mg q.h.s. I did talk to the patient about trialing ibuprofen as a replacement for diclofenac, to see if he can get greater inflammatory relief with that. I did recommend 800 mg in the morning, 600 mg in the evening with food. We will send a referral to [facility] to have his left CMC joint evaluated. Patient does agree with this, and we will follow him up in the clinic in three months' time.[facility] [id number] NotePROCEDURE: XR HAND LT MIN 3V HISTORY: Pain of left hand ; chronic first metacarpal pain increasing in severity COMPARISON: XR hand left 01/18/2022 FINDINGS: BONES:Marked degenerative changes of the first carpal-metacarpal joint. Mild-moderate degenerative joint disease involving the first metacarpophalangeal joint and multiple interphalangeal joints of the second through fifth digits. No fracture or dislocation. SOFT TISSUES:No visible soft tissue swelling. EFFUSION:None visible. OTHER: Negative. IMPRESSION: 1. Multifocal OsteoArthritic degenerative changes; marked at the first carpal-metacarpal joint which has progressed since prior study. Electronically authenticated by: ALESSANDRO MEJIA Date: 2022-09-26 22:39[facility]11-17-2022 NoteCONSULTATION CONSULTATION DATE: 09/20/2022 HISTORY OF PRESENT ILLNESS: This is a 72-year-old gentleman returning to the clinic for a two month follow up for chronic lower back pain and left buttock pain. Today he rates his pain 8/10. It is sharp and shooting. At times he has trouble getting out of bed and finds that forward flexion sitting is more comfortable. He reports any physical activities, particularly stairs, bending, standing, walking and pulling aggravate his pain. He has a new radicular pain down his left leg that extends just below the knee. Medication includes diclofenac 50 mg t.i.d., Percocet 5/325 b.i.d., multivitamin and Epkbc-Dy-[id number]. Patient, procedure-holloway, had radiofrequency ablation of his lumbar spine in February of 2021, as well as left SI joint injections in July of this year. Patient does feel that his back is tense and has recently been to the chiropractor which gave him temporary and minimal relief. He denies any new trips or falls. Patient's REVIEW OF SYSTEMS / PAST MEDICAL HISTORY / ALLERGIES and IMAGES have been reviewed and they are noted on the chart. PHYSICAL EXAM: VITAL SIGNS: Blood pressure 120/87, heart rate is 81. Temperature is 97.7. He is 6' tall, weighs 101 kg. GENERAL IMPRESSION: Pleasant, appropriate, no acute distress. FOCUSED EXAM - BACK: Range of motion is guarded in lateral rotation and flexion/extension. Paravertebral muscles are taut and spasmodic. Reproduction of spinal axial pain is noted upon direct compression of the lower lumbar facets bilaterally of L2, L3 and L4, L5 with positive jump response. Philip's point mildly tender to the left with negative FABERs, compression and thigh thrust tests. MUSCULOSKELETAL: Motor is 4/5. No vasomotor weakness to anterior tibialis or extensors. NEUROLOGICAL: Patchy hypoesthesia noted along the bilateral L5-S1 dermatome. Left does radiate below the knee. Reflexes are +1 bilaterally. Upper extremity, left hand first MCP edematous, tender to palpation with edema noted. DIAGNOSIS: Lumbar spondylosis, lumbar degenerative disc disease and left sacroiliitis, lumbar neuritis and left hand osteoarthritis. PLAN: We will obtain a left hand x-ray, as I believe his left thumb joint is arthritic but no conservative or medication measures give him relief. I believe we need further investigation. We will look to repeat bilateral radiofrequency ablation of L2, L3 and L4, L5 which the patient does agree to. He will be brought back to the clinic thereafter for follow up.[facility] [id number] NoteCONSULTATION CONSULTATION DATE: 08/02/2022 HISTORY OF PRESENT ILLNESS: This is a 72-year-old active patient returning to the clinic status post left sided SI joint injection completed on 07/17/2022 that afforded him 90% relief. The patient historically has responded well to SI injections, but patient states that with this injection he did not feel it start working until approximately 12 hours later. Following that, he has sustained great relief which is ongoing. Patient has been active lately, carrying heavy feed bags into the [employer] for hunting season. He knows he is exerting himself excessively and feels achy and sore following that. The patient did have lumbar radiofrequency ablations in February of 2021 which he is still benefiting from. Patient reports activities such as pulling, prolonged sitting, prolonged standing, evening hours, carrying, lifting and bending aggravate his pain. He does use ice which decrease his pain . He does occasionally use his friend's inversion table, which he feels is beneficial. Medications include diclofenac 50 mg t.i.d., Percocet 5/325 b.i.d. and a multivitamin regimen. Patient denies any new pain pattern or vasomotor changes. Patient's REVIEW OF SYSTEMS / PAST MEDICAL HISTORY / ALLERGIES and IMAGES have been reviewed and they are noted on the chart. PHYSICAL EXAM: VITAL SIGNS: Blood pressure 122/83, heart rate is 78. Temperature is 96.9. He is 6' tall, weighs 100.7 kg. GENERAL IMPRESSION: Pleasant, appropriate, no acute distress. FOCUSED EXAM - BACK: Range of motion is functional in lateral rotation and flexion/extension. Paravertebral muscles are taut but non-spasmodic. No reproduction of spinal axial pain upon compression of the lumbar facets indicative of successful RFA. Philip's point mildly tender to the left with no radiating pain. FABERs and compression test negative. MUSCULOSKELETAL: Lower extremities - Motor is 5/5 with good muscle tone. Patient ambulates with a steady gait, does not use assistive device. NEUROLOGICALLY: Radicular sensory is intact. Negative polyneuropathy. DIAGNOSIS: Left sided sacroiliitis, lumbar spondylosis, lumbar degenerative disc disease. PLAN: I did encourage the patient, if he is able to, to use his friend's inversion table on a daily basis. Stretches were demonstrated and encouraged as well. There will be no changes to his medication. We will maintain his Percocet and diclofenac at the said doses/frequencies. I encouraged him to not use ice, but to use heat instead, as well as with a heat rub. Patient will be brought back to the clinic at the end of September for re-evaluation if a repeat SI injection in the month of October is warranted. Patient agrees with the plan of care and all questions were answered.[facility] [id number] NoteCONSULTATION CONSULTATION DATE: 06/14/2022 This is a 72-year-old gentleman who is a [employer]men's [employer] case, returning to the clinic for a 3-month appointment for chronic left lower back pain and left sacroiliitis. He had a successful SI injection on 03/06/2022 that gave him 100% relief but it has since worn off. His pain is 7 out of 10 today, described as sharp. Activities that aggravate his pain are prolonged sitting, pulling, walking, lifting, heavy activity and the evening hours. He does use ice after activity which decreases his pain. Medications include diclofenac 50 mg t.i.d., Percocet 7.5/325 b.i.d. and a multivitamin regimen as well. The patient did have Covid at the end of March and has been dealing with thrush ever since. He is under the care of an oral surgeon and his PCP for management of that. REVIEW OF SYSTEMS, PAST MEDICAL HISTORY, ALLERGIES AND IMAGES: Have been reviewed and noted in the chart. PHYSICAL EXAM: VITAL SIGNS: Blood pressure 124/82, heart rate is 64, temperature is 97.1. Height is 6', weighs 97.8 kg. GENERAL APPEARANCE: Pleasant, appropriate; no acute distress. FOCUSED EXAM: BACK: Range of motion is guarded in left lateral rotation. Functional in flexion and extension. Minimal spinoaxial pain reproduction to compression along the facets of L4, L5 bilaterally; left greater than right. Fullness is felt along the facets indicative of ill facet arthropathy, lumbar spondylosis. Philip's point grossly tender to the right with positive Rai's, compression test and thigh thrust test. Pain does radiate down the left buttocks to the left hip and into the anterior portion of the left groin. This is concordant with left sacroiliitis. N MUSCULOSKELETAL: Difficulty transitioning from a sitting to standing position. Slight muscle atrophy to bilateral lower extremities. Motor is intact, 4 out of 5, patient does not use assistive device to ambulate. NEUROLOGICAL: Radicular sensory is intact, bilateral patella and Achilles reflexes are +2. DIAGNOSIS: Code [facility] is 724.6. PLAN: We will authorize for a left SI joint injection, refill his Percocet 5/325 b.i.d. and refill Diclofenac 50 mg t.i.d. He is compliant with his vitamin regimen. At this time, I reiterated the use of heat and stretches. The patient will be followed in the clinic post-procedure and agrees to move forward.[facility] Hospitalaluation noteNo assessment information available [facility] Work Phone: History general Narrative - Reported* Type Description Date Medical History post knee right replacement Surgical History knee replacement right Surgical History hernia Surgical History prostatectomy Surgical History acetabulum fx Hospitalization History see above [employer] Other Summary Purpose Family History No Family History Records FoundNo Family History Records FoundNo Family History Records FoundNo Family History Records FoundNo Family History Records Found Advance Directives Advance Directive Response Recorded Date/ Time Advance Directives No September 12, 2019 2:23pm Chief Complaint and Reason for Visit Chief Complaint M79.642 Additional Source Comments (unrecognized sect ion and content) No Status Records FoundNo Status Records FoundNo Status Records FoundNo Status Records FoundNo Status Records Found INFORMATION SOURCE (unrecogn ized section and content) DATE CREATED AUTHOR 04/21/2018 [facility] DATE CREATED AUTHOR AUTHOR'S ORGANIZ ATION 12/04/2021 [facility] DATE CREATED AUTHOR AUTHOR'S ORGANIZ ATION 02/25/2022 [facility] dical Specialist DATE CREATED AUTHOR AUTHOR'S ORGANIZ ATION 04/12/2023 [facility] DATE CREATED AUTHOR AUTHOR'S ORGANIZ ATION 07/01/[address] [facility] REASON FOR VISIT (unrecogniz ed section and content) Left Thumb PainRecheck Left ThumbRecheck Right Shoulder and Left ThumbRecheck Left Thumb Care Teams (unrecognized sec tion and content) Team Status: Inactive Member Role Status Dates Charity Barkley MD Attending Provider Active Team Status: Active Member Role Status Dates NON STAFF Primary Care Provider Active Team Status: Inactive Member Role Status Dates Charity Barkley MD Attending Provider Active NON STAFF Primary Care Provider Active Team Status: Inactive Member Role Status Dates NON STAFF Primary Care Provider Active Charity Barkley MD Attending Provider Active Goals (unrecognized section and content) Goals may be documented in a n alternate section FOR RECORDS PERTAINING TO PATIENTS WHO ARE OR HAVE BEEN ENROLLED IN A CHEMICAL DEPENDENCY/SUBSTANCEABUSE PROGRAM, SOME INFORMATION MAY BE OMITTED. This clinical summary was aggregated from multiple sources. Caution should be exercised in using it in the provision of clinical care. This summary normalizes information from multiple sources, and as a consequence, information in this document may materially change the coding, format and clinical context of patient data. In addition, data may be omitted in some cases. CLINICAL DECISIONS SHOULD BE BASED ON THE PRIMARY CLINICAL RECORDS. [employer] [facility]. provides no warranty or guarantee of the accuracy or completeness of information in this document.
[2023-10-24 10:56] VITALS: BP 139/78; BP 140/77; PULSE 78; PULSE 83; RESP 18; O2SAT 96; O2SAT 97
== END 2023-10-24 07:35 | disposition home or self-care (01) ==
LOC: SURGOUT 06:30
PROVIDERS: PCP Family Medicine; Visit Provider Anesthesiology Pain Medicine
DX: M46.1 Sacroiliitis, not elsewhere classified (principal)
CPT/HCPCS: 27096; J1040

== ENCOUNTER 2023-11-07 07:48 | Outpatient (OUT) | payer MEDICARE, OTHER, SELFPAY ==
--- OUTSIDE RECORDS SUMMARY | 2023-11-07 07:53 | XMS_ITS | CCD ---
Author Name Unknown Address [address] [place] [address] Organization [facility] Care Team Providers Care Branch Office Administrator Name Role Phone PHYSICIAN, DEFAULT Unavailable Unavailable PHYSICIAN, DEFAULT Unavailable Unavailable EBRAHEIM, BILLY Unavailable Unavailable EBRAHEIM, BILLY Unavailable Unavailable SELF, REFERRED Unavailable Unavailable SELF, REFERRED Unavailable Unavailable SOSA ., DR ROMERO Ruiz Attending Unavailable SOSA ., DR ROMERO Ruiz Admitting Unavailable DEFRANCE, DR JULIO Primary Care Unavailable SOSA ., DR ROMERO Ruiz Consulting Unavailable ANTONIA CONNOR Consulting Unava ilable SOSA ., DR ROMERO [...] DR JULIO Primary Care Unavailable LAKSHMIPATHY ., NARENDRANATH Consulting Ceci vailable LAKSHMIPATHY ., BLAKE Attending Ceci vailable LAKSHMIPATHY ., NARRAMONE Admitting Ceci vailable DEFRANCE, DR JULIO Primary Care Unavailable HALKER .MYLENE Consulting Unavailable SOSA ., DR ROMERO Ruiz Admitting Unavailable DEFRANCE, DR JULIO Primary Care Unavailable SOSA ., DR ROMERO Ruiz Consulting Unavailable SOSA ., DR ROMERO Ruiz Attending Unavailable LAKSHMIPATHY ., NARRAMONE Admitting Ceci vailable LAKSHMIPATHY ., NARENDRANATH Attending Ceci vailable DOMENICO .MYLENE Unavailable DEFRANCE, DR JULIO Primary Care Unavailable SHEILA ., DR ROMERO Ruiz Attending Unavailable SOSA ., DR ROMERO Ruiz Admitting Unavailable DEFRANCE, DR JULIO Primary Care Unavailable SOSA ., DR ROMERO Ruiz Consulting Unavailable SALMERON ., ISELA Attending Unavailable SALMERON ., ISELA Admitting Unavailable DEFRANCE, DR JULIO Primary Care Unavailable ZIEBER, DR ALESSANDRO Gudino Consulting Unavailable SALMERON ., ISELA Consulting Unavailable SOSA ., DR ROMERO Ruiz [...] NON STAFF Primary Care Provider Unavailabl e SUMANTH HILL Primary Care Unavailable SUMANTH HILL Referring Unavailable SUMANTH HILL Primary Care Unavailable SUMANTH HILL Primary Care Unavailable MAEVE COTA Attending Unavailable MAEVE COTA Referring Unavailable SUMANTH HILL Primary Care Unavailable Sumanth Hill MD Primary Care Provider Medications Current Medications Medication Drug Class(es) Dates Sig (Normalized) Sig (Original) acetaminophen 325 mg / oxyCODONE hydrochloride 5 mg oral tablet (7 sources) Opioid Agonist take 1 tablet by mk th every four hours as needed for pain oxyCODONE-acetamino phen (PERCOCET) 5-325 mg per tablet Take 1 tablet by mouth every 4 (four) hours as needed for pain. 0 Active Percocet Active Calcium (5 sources) Phosphate Binder, Calcium Calcium + D3 Active Centrum Silver (5 sources) Centrum Silver Active Chondroitin Sulfates / Glucosamine (5 sources) Osteo Bi-Flex On e Per Day Active diclofenac sodium 75 mg delayed release oral tablet (7 sources) Nonsteroidal Anti-inflammatory Drug take 1 tablet by mouth in the morning, then take 1 tablet by mouth at bedtime diclofenac (VOLTAREN) 75 mg EC tablet Take 1 tablet (75 mg total) by mouth in the morning and 1 tablet (75 mg total) before bedtime. 0 Active Diclofenac Activ e Elderberry preparation (5 sources) Elderberry 500 M G as directed Orally Active predniSONE 10 mg oral tablet (1 source) Start: 4 End: 4 take 6 tablets by mouth once daily, then take 1 tablet by mouth once daily at mealtime predniSONE (STERAPRED DS) 10 mg tablet pack Take by mouth daily for 8 days. 6 tabs qd x 3 d then 1 less each day with food 33 tablet 0 11/05/2023 11/13/2023 Active Super B Complex (5 sources) Super B Complex Active tiZANidine 4 mg oral tablet (7 sources) Central alpha-2 Adrenergic Agonist Start: 3 take 1 tablet by mouth every eight hours as needed tiZANidine (ZANAFLEX) 4 mg tablet Take 1 tablet (4 mg total) by mouth every 8 (eight) hours as needed for muscle spasms. 0 04/30/2023 Active take 1 tablet by mouth every eig ht hours tiZANidine HCl 4 MG 1 tablet as needed Orally Three times a day Active Completed/Discontinued Medications Medication Drug Class(es) Dates Sig (Normalized) Sig (Original) dexamethasone 0.1 mg/ml oral solution (2 sources) Corticosteroid End: 4 dexAMETHasone (DECADRON) 0.5 mg/5 mL elixir Take by mouth daily. 0 11/05/2023 Discontinued methylPREDNISolone (2 sources) Corticosteroid Start: 3 End: 4 methylPREDNISolone (MEDROL, DEMOND,) 4 mg tablet follow package directions 21 tablet 0 10/22/2023 11/05/2023 Discontinued Start: 10-22-2023 methylPREDNISo lone (MEDROL, DEMOND,) 4 mg tablet follow package directions 21 tablet 0 10/22/2023 Active triamcinolone acetonide 40 mg/ml injectable suspension (11 sources) Corticosteroid Start: 07-23-2023 Kenalog-40 Aug, 40 mg Start: 05-21-2023 Kenalog-40 Oct, 20 mg Problems Active Problems Problem Classification Problem Date Documented Date Episodic/Chronic Cancer of prostate (4 sources) Adenocarcinoma of prostate; Translations: [Malignant neoplasm of prostate] Onset: 11-20-2016 04-16-2023 Chronic Cancer of prostate (2 sources) History of malignant neoplasm of prostate; Translations: [Personal history of malignant neoplasm of prostate] Onset: 10-04-2023 10-04-2023 Episodic Diverticulosis and diverticulitis (1 source) Diverticulitis of intestine, part unspecified, without perforation or abscess without bleeding; Translations: [Diverticulitis of intestine, part unspecified, without perforation or abscess without bleeding] Onset: 10-22-2023 Chronic Intestinal obstruction without hernia (2 sources) Small bowel obstruction; Translations: [Unspecified intestinal obstruction, unspecified as to partial versus complete obstruction] Onset: 10-04-2023 10-04-2023 Episodic Osteoarthritis (20 sources) Bilateral primary osteoarthritis of [...] Onset: 10-01-2022 Episodic Other connective tissue disease (4 sources) Impingement syndrome of right shoulder Episodic [...] Onset: 02-21-2023 Chronic Other non-traumatic joint disorders (4 sources) Pain in right shoulder Episodic Spondylosis; intervertebral disc disorders; other back problems (12 sources) Sacrococcygeal disorders, not elsewhere classified; Translations: [Intervertebral disc disorders with radiculopathy, lumbar region] Onset: 07-17-2022 Episodic Sprains and strains (4 sources) Other sprain of right shoulder joint, initial encounter Episodic Superficial injury; contusion (4 sources) Contusion of right shoulder, initial encounter [...] Translations: [Pain in left hand] Onset: 05-21-2023 Unclassified (1 source) Low back pain, unspecified; Translations: [Low back pain, unspecified] Onset: 10-22-2023 Past or Other Problems Problem Classification Problem Date Documented Date Episodic/Chronic Mood disorders (2 sources) Mood disorders Onset: 07-29-2023 07-29-2023 Other screening for suspected conditions (not mental disorders or infectious disease) (2 sources) Raised prostate specific antigen; Translations: [Elevated prostate specific antigen [PSA]] Onset: 10-09-2016 01-21-2023 Episodic Other skin disorders (2 sources) Eruption; Translations: [Rash and other nonspecific skin eruption] Onset: 03-12-2017 05-19-2020 Episodic Residual codes; unclassified (2 sources) Localized edema; Translations: [Localized edema] Onset: 02-08-2020 02-08-2020 Episodic Spondylosis; intervertebral disc disorders; other back problems (20 sources) Sacroiliitis, not elsewhere classified; Translations: [Other intervertebral disc degeneration, lumbar region] Onset: 04-20-1996 Resolved: 10-04-2023 Chronic Unclassified (1 source) LOW BACK PAIN, UNSPECIFIED; Translations: [LOW BACK PAIN, UNSPECIFIED] Onset: 11-22-2022 Urinary tract infections (2 sources) Urinary tract infectious disease; Translations: [Urinary tract infection, site not specified] Onset: 05-08-2017 Resolved: 10-04-2023 10-04-2023 Episodic Varicose veins of lower extremity (2 sources) Pain co-occurrent and due to varicose veins of right leg; Translations: [Varicose veins of right lower extremity with pain] Onset: 02-08-2020 02-08-2020 Episodic Results Test Name Value Interpretation Reference Range Facil ity MR LUMBAR SPINE WO CONTon MR LUMBAR SPINE WO CONT MR LUMBAR SPINE WO CONT HISTORY: A 73-year-old male with the history of the chronic low back pain with pain is radiating down into the right lower extremity with numbness. Lumbar radiculopathy. TECHNIQUE: Multiplanar and multisequence MRI examination of the lumbar spine is performed. COMPARISON: Comparison is made with prior MRI examination of the lumbar spine of 01/23/[address] scan of the lumbar spine of 10/22/2023. FINDINGS: Vertebral heights are normal. There are diffuse degenerative changes in the lumbar spine. Facet arthropathy seen at multiple levels. There is a heterogeneous marrow signal from degenerative arthritis. No acute bony pathology is identified. There is a grade 1 spondylolisthesis at L4-L5. Both sacroiliac joints are intact. No significant paravertebral soft tissue abnormality seen. At L1-L2, there is a disc degenerative disease and minimal disc bulging with facet arthropathy causing mild degree of spinal stenosis and minimal narrowing of the neural foramina. At L2-L3, there is a disc degenerative disease and facet arthropathy causing moderate degree of spinal stenosis and narrowing of the neural foramina. At L3-L4, there is a severe disc degenerative disease and facet arthropathy. Severe degree of spinal stenosis and narrowing of the neural foramina are seen. There is a right-sided extruded disc with migration of the disc inferiorly behind the L4 vertebral body with. There is compression of the thecal sac and severe narrowing of the right neural foramen. At L4-L5, there is a disc degenerative disease with facet arthropathy causing severe degree of spinal stenosis and narrowing of the neural foramina. There is a grade 1 spondylolisthesis. At L5-S1, there is a disc degenerative disease and facet arthropathy causing mild degree of spinal stenosis. Neural foramina are minimally narrowed. Conus is seen at the level of T12-L1. No intrathecal signal abnormality is identified. IMPRESSION: * There is a right-sided extruded disc at L3-L4 with migration of the disc material inferiorly behind the L4 vertebral body. There is severe narrowing of the right neural foramen and compression of the thecal sac. * Diffusion advance a disc degenerative disease in the lower thoracic and lumbar spine. Facet arthropathy seen at all levels. Various degrees of spinal stenosis and narrowing of the neural foramina at multiple levels as described above. * Grade 1 spondylolisthesis at L4-L5. Finalized by Shaggy Ortega MD on 11/01/2023 10:24 AM [facility] XR shoulder RT min 2V*on XR shoulder RT min 2V* [facility] Main [place] [id number] XRay Report Signed Patient: Regan Green MR#: [id number] 65 : 1950 Acct:[id number] Age/Sex: 73 / M ADM Date: 06/24/23 Loc: [facility] Room: Type: REG CLI Attending Dr: Charity [...] Artie Goldsmith M.D.06/24/2023 12:37 PM Dictation Location: [place] [address] Transcribed By: [facility] 06/24/23 1237 Dictated By: Artie Goldsmith DO 06/24/23 1236 Signed By: 06/24/23 1237 [facility] XR hand LT min 3V*on 023 XR hand LT min 3V* [facility] Main [address] [address] XRay Report Signed Patient: Regan Green MR#: [id number] [birth year] : 1950 Acct:[id number] Age/Sex: 73 / M ADM Date: 05/21/23 Loc: [facility] Room: Type: REG CLI Attending Dr: Chraity Barkley MD Copies to: Charity Barkley MD [...] PROCESS. Impression dictated by: Regan Vigil Jr., D.O.05/21/2023 1:53 PM Dictation Location: [place] [address] Transcribed By: [facility] 05/21/23 1353 Dictated By: Regan Vigil Jr, DO 05/21/23 1352 Signed By: 05/21/23 1353 [facility] Covid-19 PCR (CVDTBH)on SARS-CoV-2 (COVID-19) RNA YASMIN+probe Ql (Unsp spec) Not detected Normal NOT DETECTED [facility] Comment on above: Result Comment: This test is not yet jory roved or cleared by the [place] FDA. When there are no FDA-approved or cleared tests available, and other criteria are met, FDA can make tests available under an emergency access mechanism called an Emergency Use Authorization (EUA). The EUA for this test is supported by the Vaccine Customer Representative of Health and Human Service's (HHS's) declaration [...] consistent with SARS-CoV-2. Performed By: #### C [facility] #### [place] [address] Dr. Keely Fitzgerald MRI Shoulder w/o Lefton [...] by Boogie Modi on 02/23/2022 1229 Normal [facility] Seed Pelleter Brenna 04-28-2021 [facility] -------- REGAN GREEN ([id number]) 1950 Date Time Provider Department 04/28/21 OZZY [...] Status:Closed by IWONA BUENO on 04/28/21 Normal [facility] PELVIS 1 OR 2 [facility] 04-16-20 18 PELVIS 1 OR [address] [facility] [address] [place] [id number] ==Patient Name: REGAN GREEN : 1950ex: MAge: Race: WhiteMRN: [id number]. Location: 84Patient Status: OVisit #: [id number] Date: 04/16/2018 9:20:00 AMCompleted Date: 04/16/2018 09:18 AMRequesting Provider: BILLY KILLIAN Attending Provider: BILLY KILLIAN Report Copy To: Signs & Symptoms: M46.1 Sacroiliitis, not elsewhere classified [id number]: AthenaComments: , , , Ordering Provider - BILLY KILLIAN MD , Exam: PELVIS 1 OR 2 VWSAccession #: [id number] =========PELVIS 1 OR 2 VWS 04/16/2018 9:18 [...] fracture Electronically signed by:Rios Le. Transcribed by: [email or web address], User Resident: Electronically Signed by: RIOS LE @ 04/16/2018 10:35 AM Normal [facility] Comment on above: Order Comment: , , , Ordering Provider - BILLY KILLIAN MD , Vital Signs Date Time Vital Sign Value Performing Clinician Saeed hernandez 05-21-2023 10:00-0400 Body height 182.88 cm Charity Barkley Other [facility] Other 05-21-2023 10:00-0400 Body mass index (BMI) [Ratio] 30.51 kg/m2 Charity Barkley Other [facility] Other 05-21-2023 10:00-0400 Body weight 102.06 kg Charity Barkley Other [facility] Other Encounters Encounter Date Encounter Type Care Provider Facility Start: 11-05-2023 Telephone encounter Dolorse Rm MA [facility] Comment on above: Er Follow-up Lumbar radiculopathy , chronic (Primary Dx) Start: 11-01-2023 End: 11-02-2023 ambulatory [facility] Start: 10-31-2023 End: 10-31-2023 Emergency department patient visit [facility] Start: 10-30-2023 End: 10-30-2023 ambulatory Charity Barkley Other [facility] Other Start: 10-30-2023 Office outpatient vi sit 15 minutes Charity Barkley [facility] Start: 10-22-2023 End: 10-23-2023 Emergency department patient visit MAEVE COTA [facility] Start: 08-20-2023 End: 08-20-2023 ambulatory Charity Barkley Other [facility] Other Start: 08-20-2023 Office outpatient vi sit 15 minutes Charity Barkley [facility] Start: 07-23-2023 End: 07-23-2023 ambulatory Charityzafar Barkley Other [facility] Other Start: 07-23-2023 Office outpatient vi sit 15 minutes Charityzafar Barkley [facility] Start: 06-24-2023 Office outpatient vi sit 15 minutes Charity Barkley [facility] Start: 06-24-2023 End: 06-24-2023 ambulatory NON STAFF Facility:[facility] Start: 06-24-2023 End: 06-24-2023 ambulatory NON STAFF [facility] Work Phone: Start: 06-24-2023 End: 06-24-2023 Patient encounter procedure MD Charity Barkley Work Phone: [facility] Start: 05-21-2023 Office outpatient ne w 30 minutes Charity Barkley [facility] Start: 05-21-2023 End: 05-21-2023 ambulatory Charity R Filippo [facility] Work Phone: Start: 05-21-2023 End: 05-21-2023 Patient encounter procedure MD Charity Barkley Work Phone: [facility] Start: 03-19-2023 End: 03-20-2023 ambulatory NARENDRANATH LAKSHMIPATHY . Facility:[facility] Start: 02-21-2023 End: 02-22-2023 ambulatory NARENDRANATH LAKSHMIPATHY . Facility:[facility] Start: 12-18-2022 End: 12-19-[address] ROMERO SOSA . Facility:[facility] Start: 11-22-2022 End: 11-23-[address] ROMERO SOSA . Facility:[facility] Start: 10-11-2022 Encounter for preprocedural laboratory examination DR ROMERO SOSA . [facility] Start: 10-09-2022 End: 10-09-[address] ROMERO SOSA . Facility:[facility] Start: 10-05-2022 End: 10-06-[address] ROMERO SOSA . Facility:[facility] Start: 10-05-2022 End: 10-06-2022 Encounter for preprocedural laboratory examination DR ROMERO SOSA . Facility:[facility] Start: 10-01-2022 Encounter for preprocedural cardiovascular examination ISELA SALMERON . [facility] Start: 09-26-2022 End: 09-27-2022 ambulatory ISELA SALMERON . Facility: Start: 09-26-2022 End: 09-27-2022 Encounter for preprocedural cardiovascular examination ISELA SALMERON . Facility: Start: 09-20-2022 End: 09-21-[address] ROMERO SOSA . Facility: Start: 08-02-2022 End: 08-03-[address] ROMERO SOSA . Facility: Start: 07-17-2022 End: 07-17-[address] ROMERO SOSA . Facility:[facility] Start: 06-14-2022 End: 06-15-[address] ROMERO SOSA . Facility: Start: 04-16-2018 End: 04-17-2018 Ambulatory BILLY KILLIAN Facility:[facility] Start: 01-28-2018 End: 01-29-2018 Ambulatory DEFAULT PHYSICIAN Facility:[facility] Procedures Date Procedure Procedure Detail Performing Clinician Start: 07-29-2023 Adult depression screening assessment Dolores Sybilangle MARIE Start: 06-24-2023 Plain X-ray of right shoulder MD Charity Barkley Work Phone: Start: 05-21-2023 Plain X-ray of left hand MD Charity Barkley Work Phone: Plan of Treatment Date Care Activity Detail Author Start: 10-31-2024 Tobacco Screening Tobacco Screening [facility] Start: 10-23-2024 Fall Risk Screening Fall Risk Screening [facility] Start: 10-22-2024 Adult BMI Screening Adult BMI Screening [facility] Start: 07-30-2024 End: 07-30-2024 Patient encounter procedure 07/30/2024 8:30 AM EDT Office Visit [facility] [address] [place] [address] Sumanth Hill MD [address] [place] [address] [facility] Start: 07-29-2024 Depression Screening Depression Screening [facility] Start: 07-29-2024 Medicare Annual Wellness Visit Medicare Annual Wellness Visit [facility] Start: 04-21-2024 End: 04-21-2024 Patient encounter procedure 04/21/2024 1:45 PM EDT Office Visit [facility] [address] [place] [address] [facility] [place] [address] Juan F Heller MD [facility] [place] [address] [facility] Start: 07-05-2023 COVID-19 Vaccine ( season) COVID-19 Vaccine ( season) [facility] Start: 07-24-2013 Administration of varicella zoster vaccine Zoster (Shingles) Vaccine (1 of 2) [facility] Start: 1971 DTaP,Tdap and Td Vaccines (1 - Tdap) DTaP,Tdap and Td Vaccines (1 - Tdap) [facility] Start: 1970 Adult BMI Follow Up Plan Adult BMI Follow Up Plan [facility] Immunizations Immunization Date Immunization Notes Care Provider Fa cility 08-20-2022 Influenza, [facility] , [facility] influenza, injectabl e, quadrivalent, preservative free Dolores [facility] 09-18-2021 influenza, injectabl e, quadrivalent, preservative free Dolores [facility] 07-20-2020 Influenza, High-dose , Quadrivalent [facility] 08-11-2019 influenza, high dose seasonal, preservative-free [facility] 08-11-2019 pneumococcal polysaccharide vaccine, 23 valent [facility] 07-31-2018 influenza, injectabl e, quadrivalent, preservative free Dolores [facility] 11-20-2017 influenza, seasonal, injectable, preservative free [facility] 11-20-2017 pneumococcal conjuga te vaccine, 13 valent Dolores [facility] 08-19-2013 pneumococcal polysaccharide vaccine, 23 valent [facility] 05-29-2013 zoster vaccine, live [facility] 05-29-2013 zoster vaccine, unspecified formulation [facility] 08-18-2012 influenza virus vacc ine, whole virus Dolores [facility] 08-13-2012 pneumococcal polysaccharide vaccine, 23 valent Dolores [facility] 08-13-2012 zoster vaccine, live Dolores [facility] 09-03-2011 influenza virus vacc ine, whole virus Dolores [facility] 09-11-2010 influenza virus vacc ine, whole virus Dolores [facility] 08-22-2009 influenza virus vacc ine, whole virus Dolores [facility] Payers Date Payer Category Payer Self-pay [id number] [phone] [id number] 2023 Unknown [id number] 2019 Unknown 2017 Medicare MEDICARE MEDICAR E PART A & B [id number] 2017-Present [phone] [address] [place] [address] [id number] 1959 Medicare [id number] 1959 Unknown [id number] 1959 Unknown [id number] 1950 Unknown [id number] 12.20.830.1.576909.3.579.2.59 3 1950 Unknown [id number] 12.20.830.1.105642.3.579.2.59 3 1952 Unknown [id number] .0.1.744076.3.579.2.59 3 1950 Unknown [id number] .0.1.481609.3.579.2.59 3 1952 Unknown [id number] 2.16.840.1.048242.3.579.2.59 3 1952 Unknown [id number] 2.16.840.1.512158.3.579.2.59 3 1952 Unknown [id number] 2.16.840.1.158053.3.579.2.59 3 1952 Unknown [id number] 2.16.840.1.720022.3.579.2.59 3 1952 Unknown [id number] 2.16.840.1.012515.3.579.2.59 3 1952 Unknown [id number] 2.16.840.1.658163.3.579.2.59 3 1952 Unknown [id number] 2.16.840.1.959504.3.579.2.59 3 1952 Unknown [id number] 2.16.840.1.766138.3.579.2.12 86 1952 Unknown [id number] 2.16.840.1.498932.3.579.2.12 86 1952 Unknown [id number] 2.16.840.1.362877.3.579.2.12 86 1950 Unknown [id number] 2.16.840.1.852728.3.579.2.12 86 Unknown [facility] [id number] Unknown [id number] 2.16.840.1.271842.3.579.2.53 1 Unknown [id number] 2.16.840.1.641024.3.579.2.53 1 Worker's Compensation [id number] Social History Date Type Detail Facility Unknown if ever smoked [facility] Work Phone: Start: 12-01-2019 End: 12-15-2020 [facility]igned At [facility] Start: 1950 Sex Assigned At [facility] Start: 01-17-2023 Tobacco smoking stat us NHIS Ex-smoker [facility] History of tobacco use Current smoker [facility] History of tobacco use Cigarette Smoker P [employer] [facility] Start: 01-17-2023 Tobacco use and exposure Smokeless tobacco non-user [facility] Start: 10-31-2023 Alcohol intake Current drinke r of alcohol (finding) [facility] Start: 12-01-2019 End: 12-15-2020 History of Social function [facility] Frequency of Alcohol Consumption 4 or more times a week [facility] Start: 01-17-2023 Alcohol Comment socially [facility] System Start: 1950 Sex Assigned At Not on file [facility] Goals Date Patient Goal Desired Activity /State Personal health goal Comment on above: Formatting of this n ote might be different from the original. Evaluation of progress towards goal: under assessment, has Clinical Notes 06-14-2022 to 11-05-2023 Telephone Encounter - Dolores Anderson [facility] - 11/05/2023 9:48 AM ESTTelephone Encounter - Dolores Anderson [facility] - 11/05/2023 9:48 AM EST Note Date & Type Note Facility 11-05-2023 Miscellaneous Notes Formattin g of this note might be different from the original. ED Outreach This documentation is being used for Transition of Care purposes: Yes/No: Yes ED Outreach Date: November 05, 2023 ED Outreach Method: COMMUNICATION METHOD: Telephone ED Outreach Attempt: first ED Outreach Outcome: Contacted Patient Name of ED Facility: [facility] Date of ED Discharge: 10/31/2023 Discharge Diagnosis: Sciatica of right side, acute bilateral back pain ED Chief Complaint: back pain Current Symptom Status: continuing- patient states that he is continuing to experience back pain. He had an MRI completed last week and is awaiting instructions from PCP office. He states that he is using heat, ice, percocet and Tizanidine as needed for pain. He denies other concerns at this time. Medication Changes Reviewed: yes Medication Questions/Concerns: denies concerns Follow-up PCP Scheduled: declines at this time Follow-up Specialist Scheduled: seeing pain management this week and discussing possible ablation. Calling Neurosurgeon for an appointment. Chiropractor appointment today. Follow up Testing Scheduled: n/a Patient Contacted Office Prior to ED Visit: yes Additional Comments: Patient will contact the office with additional concerns. documented in this encounter [facility] 11-05-2023 Telephone encount er Note ED Outreach This documentation is being used for Transition of Care purposes: Yes/No: Yes ED Outreach Date: November 05, 2023 ED Outreach Method: COMMUNICATION METHOD: Telephone ED Outreach Attempt: first ED Outreach Outcome: Contacted Patient Name of ED Facility: [facility] Date of ED Discharge: 10/31/2023 Discharge Diagnosis: Sciatica of right side, acute bilateral back pain ED Chief Complaint: back pain Current Symptom Status: continuing- patient states that he is continuing to experience back pain. He had an MRI completed last week and is awaiting instructions from PCP office. He states that he is using heat, ice, percocet and Tizanidine as needed for pain. He denies other concerns at this time. Medication Changes Reviewed: yes Medication Questions/Concerns: denies concerns Follow-up PCP Scheduled: declines at this time Follow-up Specialist Scheduled: seeing pain management this week and discussing possible ablation. Calling Neurosurgeon for an appointment. Chiropractor appointment today. Follow up Testing Scheduled: n/a Patient Contacted Office Prior to ED Visit: yes Additional Comments: Patient will contact the office with additional concerns. [facility] [place] [facility] 10-30-2023 Evaluation note Encounter Date Diagnosis Assessment Notes Oct, Primary osteoarthritis of first carpometacarpal joint of left hand (ICD-10 - M18.12) We performed a cortisone injection into the CMC joint under sterile technique. The patient tolerated this well without complication. We discussed that the finger may feel numb and tingle for hours after this injection. Oct, Sprain of other part of right shoulder region, initial encounter (ICD-10 - S43.491A) Oct, Contusion of right shoulder, initial encounter (ICD-10 - S40.011A) Oct, Arthritis of right shoulder region (ICD-10 - M19.011) Oct, Subacromial impingement of right shoulder (ICD-10 - M75.41) Oct, Acute pain of right shoulder (ICD-10 - M25.511) [facility] Other 12-19-2023 NoteCT LUMBAR SPINE WO CONT HISTORY AND/OR TECH NOTES Low back pain progressively worsening PROCEDURE CT lumbar spine Automated exposure control was utilized All CT scans at this facility use dose modulation, iterative reconstruction, and/or weight based dosing when appropriate to reduce radiation dose to as low as reasonably achievable. COMPARISON October 04 FINDINGS There is diverticulosis There is now increased bowel wall thickening and fat stranding around the proximal sigmoid colon consistent with acute diverticulitis There is no discrete abscess or suspicious gas visible within the wtkzt-pz-syhm. Repeat contrast abdominal pelvic CT may prove useful in combination with colonic screening with appropriate Probable parapelvic cysts in the left kidney Prominent vascular calcifications There is some metal artifact related to a prior surgery at the left acetabular region. There are also clips in the low pelvis as seen on the huc ob image Sagittal images include from the lower margin of T11 through the mid sacrum No compression fracture No destructive bone process Severe facet arthritis with slight anterior translation of L4 on L5 Moderate to severe multilevel degenerative disc disease No aggressive disc disease or endplate destruction No erosive change at the SI joints There is relatively severe canal and neural foraminal stenosis at L3-L4 and L4- L5 from disc bulge and hypertrophic change There is similar but slightly less severe canal stenosis and neural foraminal at L2-L3 and L5-S1 IMPRESSION: Findings most consistent with acute diverticulitis at the proximal sigmoid colon without visible abscess or suspicious gas within the azujj-ps-onwy Close clinical follow-up and short-term progress repeat abdominal pelvic contrast CT and colonic screening considered There is also be severe degenerative change of the lumbar spine and relatively severe canal and neural foraminal stenosis probably greatest at L3-4 and L4-5 levels There is no compression deformity or destructive bone process Finalized by Renaldo Tinajero MD on 10/22/2023 1:09 [facility] 08-20-2023 Evaluation note* Encounter Date Diagnosis Assessment Notes Treatment Notes Treatment Clinical Notes Aug, Primary osteoarthrit is of first carpometacarpal joint [...] pain of right shoulder (ICD-10 - M25.511) [facility] Other 09-19-2023 Evaluation note* Encounter Date Diagnosis [...] pain of right shoulder (ICD-10 - M25.511) [facility] Other 08-21-2023 Evaluation note* Encounter Date Diagnosis [...] pain of right shoulder (ICD-10 - M25.511) [facility] Other 07-18-2023 Evaluation note* Encounter Date Diagnosis [...] given order for occupational therapy and braces [facility] Other 05-16-2023 NoteCONSULTATION CONSULTATION DATE: 03/19/2023 TO: Sumanth Hill M.D. CHIEF COMPLAINT: Patient was seen today [...] our patients to inform us about any iysp-jcv-pdjimue medications or herbal remedies/nutritional supplements/alternative remedies. 2. [...] treatment options with their primary care provider.[facility] [id number] Note CONSULTATION PROCEDURE DATE: 02/21/2023 PROCEDURE: Right [...] removed. He was discharged after meeting criteriaThe [facility] Hospital [id number] NoteCONSULTATION CONSULTATION DATE: 12/18/2022 CHIEF COMPLAINT: Left [...] understands and would like to proceed. CC: Sumanth Hill M.D.[facility] [id number] NoteCONSULTATION PROCEDURE DATE: 12/18/2022 PREOPERATIVE DIAGNOSIS: Osteoarthritis [...] will be followed up in the office.[facility] [id number] NoteCONSULTATION CONSULTATION DATE: 11/22/2022 HISTORY OF PRESENT [...] food. We will send a referral to [facility] to have his left CMC joint evaluated. Patient does agree with this, and we will follow him up in the clinic in three months' time.[facility] [id number] NotePROCEDURE: XR HAND LT MIN 3V HISTORY: [...] Electronically authenticated by: ALESSANDRO MEJIA Date: 2022-09-26 22:39[facility] [id number] NoteCONSULTATION CONSULTATION DATE: 09/20/2022 HISTORY OF PRESENT [...] mg t.i.d., Percocet 5/325 b.i.d., multivitamin and Pmdtj-Te-Wqhd. Patient, procedure-holloway, had radiofrequency ablation of his [...] to the clinic thereafter for follow up.[facility] [id number] NoteCONSULTATION CONSULTATION DATE: 08/02/2022 HISTORY OF PRESENT [...] lately, carrying heavy feed bags into the [place] for hunting season. He knows he is [...] of care and all questions were answered.[facility] [id number] NoteCONSULTATION CONSULTATION DATE: 06/14/2022 This is a [...] and Achilles reflexes are +2. DIAGNOSIS: Code [facility] is 724.6. PLAN: We will authorize for a left SI joint injection, refill his Percocet 5/325 b.i.d. and refill Diclofenac 50 mg t.i.d. He is compliant with his vitamin regimen. At this time, I reiterated the use of heat and stretches. The patient will be followed in the clinic post-procedure and agrees to move forward.[facility] DaytonEvaluation noteNo assessment information available [facility] Work Phone: Evaluation note* Diagnosis Lumbar radiculopathy, chronic- Primary documented in this encounter [facility] Narrative - Reported* Type Description Date Medical History post knee right replacement Surgical History knee replacement right Surgical History hernia Surgical History prostatectomy Surgical History acetabulum fx Hospitalization History see above [facility] Other InstructionsNot on filedocumented in this encounter [facility] Dynamics EnergyReason for referral (narrative)* Consultation (Routine) - Pending Review Specialty Diagnoses / Procedures Referred By Gaston borges Referred To Contact Neurosurgery Diagnoses Lumbar radiculopathy, chronic Sumanth Hill MD [address] [place] [id number] Mayco Nolen MD [address] [place] [phone] Referral ID Status Reason Start Date Expiration Date Visits Requested Visits Authorized [id number] Pending Review Specialty Services Required 11/05/2023 11/04/2024 1 1 [facility] Summary Purpose Family History No Family History Records FoundNo Family History Records FoundNo Family History Records FoundNo Family History Records FoundNo Family History Records FoundNo Family History Records Found Advance Directives Advance Directive Response Recorded Date/ Time Advance Directives No September 12, 2019 2:23pm Latest Code Status on File Code Status Date Activated Date Inactivated Comments Full Code 10/04/2023 11:04 AM 10/06/2023 2:53 PM Latest Code Status on File Code Status Date Activated Date Inactivated Comments Full Code 10/04/2023 11:04 AM 10/06/2023 2:53 PM Chief Complaint and Reason for Visit Chief Complaint M79.642 Additional Source Comments (unrecognized sect ion and content) No Status Records FoundNo Status Records FoundNo Status Records FoundNo Status Records FoundNo Status Records FoundNo Status Records Found INFORMATION SOURCE (unrecogn ized section and content) DATE CREATED AUTHOR 04/21/2018 [facility] DATE CREATED AUTHOR AUTHOR'S ORGANIZ ATION 12/04/2021 [facility] DATE CREATED AUTHOR AUTHOR'S ORGANIZ ATION 02/25/2022 [facility] dical Specialist DATE CREATED AUTHOR AUTHOR'S ORGANIZ ATION 04/12/2023 [facility] DATE CREATED AUTHOR AUTHOR'S ORGANIZ ATION 07/01/2023 [facility] DATE CREATED AUTHOR AUTHOR'S ORGANIZ ATION 11/03/[address] [facility] REASON FOR VISIT (unrecogniz ed section and content) Reason Onset Date Comments Er Follow-up 11/05/2023 Care Teams (unrecognized sec tion and content) [...] Active Charity Barkley MD Attending Provider Active Branch Office Administrator Relationship Specialty Start Date End Date Sumanth Hill MD [address] [place] [address] PCP - General Family Medicine 01/16/23 Branch Office Administrator Relationship Specialty Start Date End Date Sumanth Hill MD [address] [place] [address] PCP - General Family Medicine 01/16/23 Goals (unrecognized section and content) Goals may [...] BE BASED ON THE PRIMARY CLINICAL RECORDS. [employer] provides no warranty or guarantee of the accuracy or completeness of information in this document.
--- NOTE | 2023-11-07 08:03 | P.CN_ITS ---
Consult Note: HPI Data of Consult Patient: known to practice within the last 3 years Consult date: 11/07/23 Requesting Physician: Danielle Davila NP Primary Care Provider: SUMANTH BECK Consult Narrative Reason for consult: f/u Narrative: Regan Green a pleasant 73 year old male presents for evaluation and management of low back pain with radiculopathy. Patient experiencing 10/10 pain in low back and bilateral legs, numbness tingling and weakness to left leg. Patient has been in the ER 3x with this problem and underwent an MRI which reveals severe stenosis at L3-4 L4-5 and mild at L5-S1, pending NS evaluation on 11/[address] Connors. Patient on a medrol dose pack without benefit, percocet diclofenac tizanidine with mild to no benefit. Was prescribed gabapentin 300mg BID short term which helped with his symptoms. cc:: CC: Danielle Davila NP Review of Systems ROS Status of ROS 10 or more systems reviewed and unremark able except as noted in history and below Musculoskeletal Reports: back pain, extremity pain and muscle weakness PFSH PFSH Medical History Sacroiliitis, not elsewhere classified ?M46.1 - Sacroiliitis, not elsewhere classified (ICD-10) Meds Home Medications and Allergies Home Medications Medication Instructions Recorded Confirmed Type OSCAL WITH D PO .QD 04/18/23 History baclofen 10 mg tablet 10 mg PO TID PRN muscle spasm 04/18/23 10/24/23 History diclofenac sodium 75 mg 75 mg PO BID 04/18/23 10/24/23 History tablet,delayed release glucosamine-chondroitin 250 mg-200 2 tab PO .QD 04/18/23 10/24/23 History mg tablet (Osteo Bi-Flex) multivitamin 1 tab PO DAILY 04/18/23 10/24/23 History oxycodone-acetaminophen 5 mg-325 1 tab PO BID PRN pain 04/18/23 04/23/23 History mg tablet oxycodone-acetaminophen 5 mg-325 1 tab PO BID PRN pain #60 tabs 10/21/23 10/24/23 Rx mg tablet (Percocet) tizanidine 4 mg capsule 4 mg PO BID PRN muscle spasticity 10/24/23 10/24/23 History Allergies Allergy/AdvReac Type Severity Reaction Status Date / Time No Known Drug Allergies Allergy Verified 04/23/23 10:04 Exam Constitutional Documenting provider has reviewed patient's vital signs: yes Common normals: no apparent distress, oriented x3, healthy appearing, alert and well nourished General appearance: cooperative HENMT Common normals: normocephalic, hearing grossly normal bilaterally and moist oral mucous membranes Head and scalp: normocephalic Eye Common normals: PERRL Pupil: PERRL Neck & C-Spine Common normals: full ROM General: normal visual inspection Chest Common normals: inspection of chest normal Respiratory Common normals: normal respiratory effort, no retractions and no use of accessory muscles Back & Pelvis Lumbar spine/lower back: ROM limited, pain with ROM and straight leg raise positive left Other: decreased sensation in left L3-4 dermatomal pattern strength 3.5/5 in LLE Extremity Common normals: normal to inspection and full ROM Neuro Common normals: oriented x3, CN's II-XII intact bilaterally, moves all extremities, no focal motor deficits, no sensory deficits noted and deep tendon reflexes 2+ bilaterally Sensorium/orientation: alert Gait (neuro): antalgic Motor exam: no movement abnormalities noted Psych Common normals: mental status grossly normal, thought process normal, cooperative, affect normal, speech normal and activity/motor behavior normal Speech: normal speech Thought process: normal thought process Assessment and Plan Assessment and Plan (1) Lumbar radiculopathy: (2) Lumbar stenosis: Qualifiers: Neurogenic claudication status: with neurogenic claudication Qualified Code(s): M48.062 - Spinal stenosis, lumbar region with neurogenic claudication (3) Muscle spasm: (4) Chronic prescription opiate use: Plan L3-4 CHANTELLE under fluoroscopy based on physical exam and MRI findings if appropriate with NS, consult on 11/19 start gabapentin 300mg daily-twice daily as tolerated continue Percocet 5/325 BID PRN, diclofenac 75mg BID, tizanidine 4-8mg TID PRN f/u 1-2 weeks after CHANTELLE
== END 2023-11-07 07:49 | disposition home or self-care (01) ==
PROVIDERS: PCP Family Medicine; Visit Provider Nurse Practitioner
DX: M54.16 Radiculopathy, lumbar region (principal); M48.062 Spinal stenosis, lumbar region with neurogenic claudication; M62.838 Other muscle spasm; Z79.891 Long term (current) use of opiate analgesic
CPT/HCPCS: G0463

== ENCOUNTER 2023-11-14 08:42 | Outpatient (OUT) | payer OTHER, SELFPAY ==
--- OUTSIDE RECORDS SUMMARY | 2023-11-14 08:45 | XMS_ITS | CCD ---
Author Name Unknown Address [address] [place] [address] Organization [facility] Care Team Providers Care Foundry Worker General Name Role Phone PHYSICIAN, DEFAULT Unavailable Unavailable [...] Unavailable NON STAFF Primary Care Unavailable Charity Brakley Admitting Unavailable NON STAFF Primary Care Unavailable [...] Shaggy Ortega MD on 11/01/2023 10:24 AM [facility] XR shoulder RT min 2V*on XR shoulder RT min 2V* [facility] Main [place] [id number] XRay Report Signed Patient: Regan Green MR#: [id number] 65 : 1950 Acct:[id number] Age/Sex: 73 / M ADM Date: 06/24/23 Loc: [facility] Room: Type: REG CLI Attending Dr: Charity [...] Artie Goldsmith M.D.06/24/2023 12:37 PM Dictation Location: [place] [address] Transcribed By: [facility] 06/24/23 1237 Dictated By: Artie Goldsmith DO 06/24/23 1236 Signed By: 06/24/[address] [facility] XR hand LT min 3V*on 023 XR hand LT min 3V* [facility] Main [address] [address] XRay Report Signed Patient: Regan Green MR#: [id number] 65 : 1950 Acct:[id number] Age/Sex: 73 / M ADM Date: 05/21/23 Loc: [facility] Room: Type: REG CLI Attending Dr: Charity [...] Vigil Jr., D.O.05/21/2023 1:53 PM Dictation Location: [place] [address] Transcribed By: [facility] 05/21/23 1353 Dictated By: Regan Vigil Jr, DO 05/21/23 1352 Signed By: 05/21/[address] [facility] Covid-19 PCR (CVDTBH)on SARS-CoV-2 (COVID-19) RNA YASMIN+probe Ql (Unsp spec) Not detected Normal NOT DETECTED [facility] Comment on above: Result Comment: This test is not yet jory roved or cleared by the [place] FDA. When there are no FDA-approved or cleared tests available, and other criteria are met, FDA can make tests available under an emergency access mechanism called an Emergency Use Authorization (EUA). The EUA for this test is supported by the [place] of Health and Human Service's (HHS's) declaration [...] consistent with SARS-CoV-2. Performed By: #### [facility] #### [place] [address] Dr. Keely Fitzgerald MRI Shoulder w/o Lefton [...] by Boogie Modi on 02/23/[address] [facility] Supervisor [employer] Brenna 04-28-2021 [facility] -------- REGAN GREEN ([id number]) 1950 Date Time Provider Department 04/28/21 OZZY [...] Status:Closed by IWONA BUENO on 04/28/21 Normal [facility] PELVIS 1 OR 2 [facility] 04-16-20 18 [facility]ELVIS [facility] [address] [place] [id number] ==Patient Name: REGAN GREEN : 1950ex: MAge: Race: WhiteMRN: [id number]. Location: 84Patient Status: OVisit #: [id number] Date: 04/16/2018 9:20:00 AMCompleted Date: 04/16/2018 09:18 AMRequesting Provider: BILLY KILLIAN Attending Provider: BILLY KILLIAN Report Copy To: Signs & Symptoms: M46.1 Sacroiliitis, not elsewhere classified [id number]: AthenaComments: , , , Ordering Provider - BILLY KILLIAN MD , Exam: PELVIS 1 OR 2 VWSAccession #: [id number] =========PELVIS 1 OR 2 VWS 04/16/2018 9:18 [...] fracture Electronically signed by:Rios Le. Transcribed by: [email or web address], User Resident: Electronically Signed by: RIOS LE @ 04/16/2018 10:35 AM Normal [facility] Comment on above: Order Comment: , , , Ordering Provider - BILLY KILLIAN MD , Vital Signs Date Time Vital Sign Value Performing Clinician Saeed hernandez 05-21-2023 10:00-0400 Body height 182.88 cm Charity Barkley Other [facility] Other 05-21-2023 10:00-0400 Body mass index (BMI) [Ratio] 30.51 kg/m2 Charity Barkley Other [facility] Other 05-21-2023 10:00-0400 Body weight 102.06 kg Charity Barkley Other [facility] Other Encounters Encounter Date Encounter Type Care Provider Facility Start: 11-05-2023 Telephone encounter Dolores Rm MA [facility] Comment on above: Er Follow-up Lumbar radiculopathy , chronic (Primary Dx) Start: 11-01-2023 End: 11-02-2023 ambulatory [facility] Start: 10-31-2023 End: 10-31-2023 Emergency department patient visit [facility] Start: 10-30-2023 End: 10-30-2023 ambulatory Charity Barkley Other [facility] Other Start: 10-30-2023 Office outpatient vi sit 15 minutes Charity Barklye [facility] Start: 10-22-2023 End: 10-23-2023 Emergency department patient visit [facility]E [facility] Start: 08-20-2023 End: 08-20-2023 ambulatory Charity Barkley Other [facility] Other Start: 08-20-2023 Office outpatient vi sit 15 minutes Charity Barkley [facility] Start: 07-23-2023 End: 07-23-2023 ambulatory Charityzafar Barkley Other [facility] Other Start: 07-23-2023 Office outpatient vi sit 15 minutes Charityzafar Barkley [facility] Start: 06-24-2023 Office outpatient vi sit 15 minutes Charity Barkley [facility] Start: 06-24-2023 End: 06-24-2023 ambulatory NON STAFF Facility:[facility] Start: 06-24-2023 End: 06-24-2023 ambulatory NON STAFF [facility] Work Phone: Start: 06-24-2023 End: 06-24-2023 Patient encounter procedure MD Charity Barkley Work Phone: [facility] Start: 05-21-2023 Office outpatient ne w 30 minutes Charity Barkley [facility] Start: 05-21-2023 End: 05-21-2023 ambulatory Charity R Filippo [facility] Work Phone: Start: 05-21-2023 End: 05-21-2023 Patient encounter procedure MD Charity Barkley Work Phone: [facility] Start: 03-19-2023 End: 03-20-2023 ambulatory NARENDRANATH LAKSHMIPATHY . Facility:[facility] Start: 02-21-2023 End: 02-22-2023 ambulatory NARENDRANATH LAKSHMIPATHY . Facility:[facility] Start: 12-18-2022 End: 12-19-[address] ROMERO SOSA . Facility:[facility] Start: 11-22-2022 End: 11-23-[address] ROMERO SOSA . Facility:[facility] Start: 10-11-2022 Encounter for preprocedural laboratory examination DR ROMERO SOSA . [facility] Start: 10-09-2022 End: 10-09-[address] ROMERO SOSA . Facility:[facility] Start: 10-05-2022 End: 10-06-[address] ROMERO SOSA . Facility:[facility] Start: 10-05-2022 End: 10-06-2022 Encounter for preprocedural laboratory examination DR ROMERO SOSA . Facility:[facility] Start: 10-01-2022 Encounter for preprocedural cardiovascular examination ISELA SALMERON . [facility] Start: 09-26-2022 End: 09-27-2022 ambulatory ISELA SALMERON [...] Start: 04-16-2018 End: 04-17-2018 Ambulatory BILLY KILLIAN Facility:[facility] Start: 01-28-2018 End: 01-29-2018 Ambulatory DEFAULT PHYSICIAN Facility:[facility] Procedures Date Procedure Procedure Detail Performing Clinician Start: 07-29-2023 Adult depression screening assessment Dolores Sybilangle MARIE Start: 06-24-2023 Plain X-ray of right shoulder MD Charity Barkley Work Phone: Start: 05-21-2023 Plain X-ray of left hand MD Charity Barkley Work Phone: Plan of Treatment Date Care Activity Detail Author Start: 10-31-2024 Tobacco Screening Tobacco Screening [facility] Start: 10-23-2024 Fall Risk Screening Fall Risk Screening [facility] Start: 10-22-2024 Adult BMI Screening Adult BMI Screening [facility] Start: 07-30-2024 End: 07-30-2024 Patient encounter procedure 07/30/2024 8:30 AM EDT Office Visit [facility] [address] [place] [address] Sumanth Hill MD [address] [place] [address] [facility] Start: 07-29-2024 Depression Screening Depression Screening [facility] Start: 07-29-2024 Medicare Annual Wellness Visit Medicare Annual Wellness Visit [facility] Start: 04-21-2024 End: 04-21-2024 Patient encounter procedure 04/21/2024 1:45 PM EDT Office Visit [facility] [address] [place] [address] [facility] [place] [address] Juan F Heller MD [facility] [place] [address] [facility] Start: 07-05-2023 COVID-19 Vaccine ( season) COVID-19 Vaccine ( season) [facility] Start: 07-24-2013 Administration of varicella zoster vaccine Zoster (Shingles) Vaccine (1 of 2) [facility] Start: 1971 DTaP,Tdap and Td Vaccines (1 - Tdap) DTaP,Tdap and Td Vaccines (1 - Tdap) [facility] Start: 1970 Adult BMI Follow Up Plan Adult BMI Follow Up Plan [facility] Immunizations Immunization Date Immunization Notes Care Provider Fa cility 08-20-2022 Influenza, High-dose , [facility]riv[facility]22 influenza, injectabl e, quadrivalent, preservative free Dolores [facility] 09-18-2021 influenza, injectabl e, quadrivalent, preservative free Dolores [facility] 07-20-2020 Influenza, High-dose , Quadrivalent [facility] 08-11-2019 influenza, high dose seasonal, preservative-free [facility] 08-11-2019 pneumococcal polysaccharide vaccine, 23 valent [facility] 07-31-2018 influenza, injectabl e, quadrivalent, preservative free Dolores [facility] 11-20-2017 influenza, seasonal, injectable, preservative free [facility] 11-20-2017 pneumococcal conjuga te vaccine, 13 valent Dolores [facility] 08-19-2013 pneumococcal polysaccharide vaccine, 23 valent [facility] 05-29-2013 zoster vaccine, live [facility] 05-29-2013 zoster vaccine, unspecified formulation [facility] 08-18-2012 influenza virus vacc ine, whole virus Dolores [facility] 08-13-2012 pneumococcal polysaccharide vaccine, 23 valent Dolores [facility] 08-13-2012 zoster vaccine, live Dolores [facility] 09-03-2011 influenza virus vacc ine, whole virus Dolores [facility] 09-11-2010 influenza virus vacc ine, whole virus Dolores [facility] 08-22-2009 influenza virus vacc ine, whole virus Dolores [facility] Payers Date Payer Category Payer Self-pay [id number] [phone] [id number] 2023 Unknown [id number] 2019 Unknown 2017 Medicare MEDICARE MEDICAR E PART A & B [id number] 2017-Present [phone] [address] [place] [address] [id number] 1959 Medicare [id number] 1959 Unknown [id number] 1959 Unknown [id number] 1950 Unknown [id number] 12.20.830.1.122486.3.579.2.59 3 1952 Unknown [id number] 12.20.830.1.272047.3.579.2.59 3 1952 Unknown [id number] .0.1.206012.3.579.2.59 3 1952 Unknown [id number] .0.1.759351.3.579.2.59 3 1952 Unknown [id number] 2.16.840.1.898301.3.579.2.59 3 1952 Unknown [id number] 2.16.840.1.202058.3.579.2.59 3 1952 Unknown [id number] 2.16.840.1.619562.3.579.2.59 3 1952 Unknown [id number] 2.16.840.1.946866.3.579.2.59 3 1952 Unknown [id number] 2.16.840.1.648367.3.579.2.59 3 1952 Unknown [id number] 2.16.840.1.523887.3.579.2.59 3 1952 Unknown [id number] 2.16.840.1.812191.3.579.2.59 3 1952 Unknown [id number] 2.16.840.1.886446.3.579.2.12 86 1950 Unknown [id number] 2.16.840.1.649801.3.579.2.12 86 1952 Unknown [id number] 2.16.840.1.295499.3.579.2.12 86 1950 Unknown [id number] 2.16.840.1.437417.3.579.2.12 86 Unknown [facility] [id number] Unknown [id number] 2.16.840.1.851684.3.579.2.53 1 Unknown [id number] 2.16.840.1.946624.3.579.2.53 1 Worker's Compensation [id number] Social History Date Type Detail Facility Unknown if ever smoked [facility] Work Phone: Start: 12-01-2019 End: 12-15-2020 [facility] Start: 1950 Sex Assigned At Male [facility] Start: 01-17-2023 Tobacco smoking stat us NHIS Ex-smoker [facility] History of tobacco use Current smoker [facility] History of tobacco use Cigarette Smoker P [facility] Start: 01-17-2023 Tobacco use and exposure Smokeless tobacco non-user [facility] Start: 10-31-2023 Alcohol intake Current drinke r of alcohol (finding) [facility] Start: 12-01-2019 End: 12-15-2020 History of Social function [facility] Frequency of Alcohol Consumption 4 or more times a week [facility] Start: 01-17-2023 Alcohol Comment socially [facility] Start: 1950 Sex Assigned At Not on file [facility] Goals Date Patient Goal Desired Activity /State Personal health goal Comment on above: Formatting of this n ote might be different from the original. Evaluation of progress towards goal: under assessment, has Clinical Notes 06-14-2022 to 11-05-2023 Telephone Encounter - Dolores Anderson [facility] - 11/05/2023 9:48 AM ESTTelephone Encounter - Dolores Anderson [facility] - 11/05/2023 9:48 AM EST Note Date [...] Outcome: Contacted Patient Name of ED Facility: [facility] Date of ED Discharge: 10/31/2023 Discharge [...] with additional concerns. documented in this encounter [facility] 11-05-2023 Telephone encount er Note ED Outreach This documentation is being used for Transition of Care purposes: Yes/No: Yes ED Outreach Date: November 05, 2023 ED Outreach Method: COMMUNICATION METHOD: Telephone ED Outreach Attempt: first ED Outreach Outcome: Contacted Patient Name of ED Facility: [facility] Date of ED Discharge: 10/31/2023 Discharge [...] will contact the office with additional concerns. [facility] 10-30-2023 Evaluation note Encounter Date Diagnosis Assessment [...] pain of right shoulder (ICD-10 - M25.511) [facility] Other 12-19-2023 NoteCT LUMBAR SPINE WO CONT [...] abscess or suspicious gas visible within the gkedu-ci-hege. Repeat contrast abdominal pelvic CT may prove useful in combination with colonic screening with appropriate Probable parapelvic cysts in the left kidney Prominent vascular calcifications There is some metal artifact related to a prior surgery at the left acetabular region. There are also clips in the low pelvis as seen on the plastic top assembler image Sagittal images include from the lower [...] visible abscess or suspicious gas within the ixpmz-oh-agiz Close clinical follow-up and short-term progress repeat abdominal pelvic contrast CT and colonic screening considered There is also be severe degenerative change of the lumbar spine and relatively severe canal and neural foraminal stenosis probably greatest at L3-4 and L4-5 levels There is no compression deformity or destructive bone process Finalized by Renaldo Tinajero MD on 10/22/2023 1:09 [facility] 08-20-2023 Evaluation note* Encounter Date Diagnosis Assessment [...] pain of right shoulder (ICD-10 - M25.511) [facility] Other 09-19-2023 Evaluation note* Encounter Date Diagnosis [...] pain of right shoulder (ICD-10 - M25.511) [facility] Other 08-21-2023 Evaluation note* Encounter Date Diagnosis [...] pain of right shoulder (ICD-10 - M25.511) [facility] Other 07-18-2023 Evaluation note* Encounter Date Diagnosis [...] given order for occupational therapy and braces [facility] Other 05-16-2023 NoteCONSULTATION CONSULTATION DATE: 03/19/2023 TO: [...] our patients to inform us about any uoqf-cup-eyttxcq medications or herbal remedies/nutritional supplements/alternative remedies. 2. [...] treatment options with their primary care provider.[facility] [id number] Note CONSULTATION PROCEDURE DATE: 02/21/2023 PROCEDURE: Right [...] removed. He was discharged after meeting criteriaThe [facility] [id number] NoteCONSULTATION CONSULTATION DATE: 12/18/2022 CHIEF COMPLAINT: Left [...] encouraged to maintain his appointment with Dr. Bakrley and to follow up phone call for earlier input. The patient understands and would like to proceed. CC: Sumanth Hill M.D.The [facility] [id number] NoteCONSULTATION PROCEDURE DATE: 12/18/2022 PREOPERATIVE DIAGNOSIS: Osteoarthritis [...] will be followed up in the office.The [facility] [id number] NoteCONSULTATION CONSULTATION DATE: 11/22/2022 HISTORY OF PRESENT [...] food. We will send a referral to [facility] to have his left CMC joint evaluated. Patient does agree with this, and we will follow him up in the clinic in three months' time.The [facility] [id number] NotePROCEDURE: XR HAND LT MIN 3V HISTORY: [...] authenticated by: ALESSANDRO MEJIA Date: 2022-09-26 22:39The [facility] [id number] NoteCONSULTATION CONSULTATION DATE: 09/20/2022 HISTORY OF PRESENT [...] mg t.i.d., Percocet 5/325 b.i.d., multivitamin and Tccjq-Mx-Ulbz. Patient, procedure-holloway, had radiofrequency ablation of his [...] to the clinic thereafter for follow up.The [facility] [id number] NoteCONSULTATION CONSULTATION DATE: 08/02/2022 HISTORY OF PRESENT [...] lately, carrying heavy feed bags into the [employer] for hunting season. He knows he is [...] of care and all questions were answered.The [facility] [id number] NoteCONSULTATION CONSULTATION DATE: 06/14/2022 This is a [...] and Achilles reflexes are +2. DIAGNOSIS: Code [facility] is 724.6. PLAN: We will authorize for a left SI joint injection, refill his Percocet 5/325 b.i.d. and refill Diclofenac 50 mg t.i.d. He is compliant with his vitamin regimen. At this time, I reiterated the use of heat and stretches. The patient will be followed in the clinic post-procedure and agrees to move forward.[facility] SystemEvaluation noteNo assessment information available [facility] Work Phone: Evaluation note* Diagnosis Lumbar radiculopathy, chronic- Primary documented in this encounter [facility] CenterToxic Attire [facility] HospitalHistory general Narrative - Reported* Type Description Date Medical History post knee right replacement Surgical History knee replacement right Surgical History hernia Surgical History prostatectomy Surgical History acetabulum fx Hospitalization History see above [facility] Other InstructionsNot on filedocumented in this encounter [facility] HospitalKnownReason for referral (narrative)* Consultation (Routine) - Pending Review Specialty Diagnoses / Procedures Referred By Gaston borges Referred To Contact Neurosurgery Diagnoses Lumbar radiculopathy, chronic Sumanth Hill MD [address] [place] [address] Mayco Nolen MD [address] [place] [phone] Referral ID Status Reason Start Date Expiration Date Visits Requested Visits Authorized [id number] Pending Review Specialty Services Required 11/05/2023 11/04/2024 1 1 [facility] Summary Purpose Family History No Family [...] section and content) DATE CREATED AUTHOR 04/21/2018 [facility] DATE CREATED AUTHOR AUTHOR'S ORGANIZ ATION 12/04/2021 [facility] DATE CREATED AUTHOR AUTHOR'S ORGANIZ ATION 02/25/2022 [facility] dical Specialist DATE CREATED AUTHOR AUTHOR'S ORGANIZ ATION 04/12/2023 [facility] DATE CREATED AUTHOR AUTHOR'S ORGANIZ ATION 07/01/2023 [place] DATE CREATED AUTHOR AUTHOR'S ORGANIZ ATION 11/03/2023 [facility] REASON FOR VISIT (unrecogniz ed section [...] Active Charity Barkley MD Attending Provider Active Foundry Worker General Relationship Specialty Start Date End Date Sumanth Hill MD [address] [place] [address] PCP - General Family Medicine 01/16/23 Foundry Worker General Relationship Specialty Start Date End Date Sumanth Hill MD [address] [place] [address] PCP - General Family Medicine 01/16/23 Goals [...] BE BASED ON THE PRIMARY CLINICAL RECORDS. [employer] provides no warranty or guarantee of the accuracy or completeness of information in this document.
== END 2023-11-14 08:43 ==
LOC: PM 08:42
PROVIDERS: PCP Family Medicine; Visit Provider Nurse Practitioner
DX: M46.1 Sacroiliitis, not elsewhere classified (principal)

== ENCOUNTER 2023-11-18 10:13 | Day surgery (SDC) | payer MEDICARE, OTHER, SELFPAY ==
[2023-11-18 10:48] VITALS: BP 131/74; PULSE 80; RESP 16; TEMP 36.8; O2SAT 98
[2023-11-18 11:43] VITALS: BP 143/69; PULSE 82; RESP 18; O2SAT 97
[2023-11-18 11:46] VITALS: PULSE 82; RESP 18; O2SAT 94
[2023-11-18 11:47] VITALS: BP 146/76
--- NOTE | 2023-11-18 11:47 | P.ON_ITS ---
Date of procedure: 11/18/23 Pre-op diagnosis: Lumbar stenosis with neurogenic claudication Post-op diagnosis: same as pre-op Procedure: Procedure: Left L3-4, L4-5 transforaminal epidural steroid injection Medications: Bupivacaine 0.25% 2cc, lidocaine 2% 1cc, dexamethasone 10mg The patient was seen and examined in the preoperative holding area.? Informed consent was obtained and placed on the chart.? Patient was brought to the medical procedure unit and placed in the prone position where a timeout was completed verifying the correct patient, procedure site, position, and planned special equipment using sterile aseptic technique.? Under direct fluoroscopic visualization a 25-gauge Quincke tipped spinal needle was advanced to the designated neural foramen where contrast dye was injected to show adequate spread.? The needle was inserted at level left L3-4. There was no evidence of vascular or adverse uptake.? Epidural spread was appreciated.? The above- mentioned injectate was then placed in a 1.5 mL aliquot preceded by negative aspiration.? The needle was removed. The needle was inserted and the procedure repeated at level left L4-5.? The surgery site was covered.? Patient was taken to the postprocedural recovery area and monitored for an appropriate length of time before found suitable for discharge in the accompaniment of a responsible adult. Anesthesia: Local Surgeon: Rosales Corona Pathology: none sent Condition: stable Disposition: no change
[2023-11-18] MEDS: 0.9 % SODIUM CHLORIDE 10 ML INJ (11:48)
[2023-11-18] MEDS: LIDOCAINE HCL 2% PF 100 MG/5 ML VIAL 3 ML INJ (11:49)
[2023-11-18] MEDS: IOHEXOL 240 MG/ML - 10 ML VIAL 24 MG INJ (11:49)
[2023-11-18] MEDS: BUPIVACAINE HCL 0.25% PF 25 MG/10 ML VIAL INJ (11:49)
[2023-11-18] MEDS: DEXAMETHASONE SOD PHOS 10 MG/ML VIAL INJ (11:49)
== END 2023-11-18 11:54 | disposition home or self-care (01) ==
PROVIDERS: PCP Family Medicine; Visit Provider Anesthesiology
DX: M48.062 Spinal stenosis, lumbar region with neurogenic claudication (principal)
CPT/HCPCS: 64483; 64484; J0665; J1100; Q9966

== ENCOUNTER 2023-11-27 07:49 | Outpatient (OUT) | payer MEDICARE, OTHER, SELFPAY ==
--- OUTSIDE RECORDS SUMMARY | 2023-11-27 07:56 | XMS_ITS | CCD ---
Author Name Unknown Address [address] [place] [address] Organization [facility] Care Team Providers Care Nutrition Internship Name Role Phone PHYSICIAN, DEFAULT Unavailable Unavailable PHYSICIAN, DEFAULT Unavailable Unavailable EBRAHEIM, BILLY Unavailable Unavailable EBRAHEIM, BILLY Unavailable Unavailable SELF, REFERRED Unavailable Unavailable SELF, REFERRED Unavailable Unavailable SOSA ., DR ROMERO Ruiz Attending Unavailable SOSA ., DR ROMERO Ruiz Admitting Unavailable DEFRANCE, DR JULIO Primary Care Unavailable SOSA ., DR ROMERO Ruiz Consulting Unavailable GEETAANTONIA Consulting Unava ilable SOSA ., DR ROMERO [...] DR JULIO Primary Care Unavailable LAKSHMIPATHY ., BLAKE Consulting Ceci vailable LAKSHMIPATHY ., BLAKE Attending Ceci vailable LAKSHMIPATHY ., BLAKE Admitting Ceci vailable DEFRANCE, DR JULIO Primary Care Unavailable HALKER .MYLENE Unavailable SOSA ., DR ROMERO Ruiz Admitting [...] SHEILA ., DR ROMERO Ruiz Consulting Unavailable SALMERON [...] Barkley Unavailable MD Charity Barkley Attending Provider [phone] Charity Barkley Attending Unavailable NON STAFF Primary Care Unavailable Charity Barkley Admitting Unavailable NON STAFF Primary Care Unavailable Charity Barkley Admitting Unavailable Charity Barkley Attending Unavailable NON STAFF Primary Care Provider UnavailSumanth Ivan MD Primary Care Provider SUMANTH HILL Referring Unavailable DEFRANCE, SUMANTH Borges Primary Care Unavailable CARL SOSA Attending Unavailable CARL SOSA Referring Unavailable MANJURANCE, SUMANTH Borges Primary Care Unavailable DEFRANCE, SUMANTH Borges Primary Care Unavailable DEFPELON, SUMANTH Borges Referring Unavailable DEFPELON, SUMANTH Borges Primary Care Unavailable EBONY, SUMANTH Borges Primary Care Unavailable MAEVE COTA Attending Unavailable MAEVE COTA Referring Unavailable EBONY, SUMANTH Borges Primary Care Unavailable CARL SOSA Referring Unavailable EBONY, SUMANTH Borges Primary Care Unavailable Chloe DELUCA, Rosales Leon Attending Unavailable Medications Current Medications Medication Drug Class(es) Dates Sig (Normalized) Sig (Original) acetaminophen 325 mg / oxyCODONE hydrochloride 5 mg oral tablet (8 sources) Opioid Agonist take 1 tablet by [...] sodium 75 mg delayed release oral tablet (8 sources) Nonsteroidal Anti-inflammatory Drug take 1 tablet by mouth in the morning, then take 1 tablet by mouth at bedtime diclofenac (VOLTAREN) 75 mg EC tablet Take 1 tablet (75 mg total) by mouth in the morning and 1 tablet (75 mg total) before bedtime. 0 Active Diclofenac Activ e Elderberry preparation (5 sources) Elderberry 500 M G as directed Orally Active gabapentin 300 mg oral capsule (1 source) Anti-epileptic Agent Start: 2023 take 1 capsule by mouth twice daily gabapentin (NEURONTIN) 300 mg capsule TAKE 1 CAPSULE BY MOUTH TWICE A DAY 0 11/07/2023 Active methylPREDNISolone (3 sources) Corticosteroid Start: 2023 methylPREDNISolone (MEDROL, DEMOND,) 4 mg tablet Indications: Lumbar radiculopathy, chronic , Neurogenic claudication follow package directions 21 tablet 0 11/14/2023 Active Start: 10-22-2023 End: 11-05-2023 methylPREDNISolone (MEDROL, DEMOND,) 4 mg tablet follow package directions 21 tablet 0 10/22/2023 11/05/2023 Discontinued Start: 10-22-2023 methylPREDNISo lone (MEDROL, DEMOND,) 4 mg tablet follow package directions 21 tablet 0 10/22/2023 Active predniSONE 10 mg oral tablet (1 source) Start: 11-05-2023 End: 11-13-2023 take 6 tablets by mouth once daily, [...] Complex Active tiZANidine 4 mg oral tablet (8 sources) Central alpha-2 Adrenergic Agonist Start: 04-30-2023 take 1 tablet by mouth every eight [...] mg/ml oral solution (2 sources) Corticosteroid End: 11-05-2023 dexAMETHasone (DECADRON) 0.5 mg/5 mL elixir Take by mouth daily. 0 11/05/2023 Discontinued triamcinolone acetonide 40 mg/ml injectable suspension (11 sources) Corticosteroid Start: 07-23-2023 Kenalog-40 17 Aug, 2023 40 mg Start: 05-21-2023 Kenalog-40 Oct, 20 mg Problems Active Problems Problem Classification Problem Date Documented Date Episodic/Chronic Cancer of prostate (6 sources) Adenocarcinoma of prostate; Translations: [Malignant neoplasm of prostate] Onset: 11-20-2016 04-16-2023 Chronic Cancer of prostate (3 sources) History of malignant neoplasm of prostate; Translations: [Personal history of malignant neoplasm of prostate] Onset: 10-04-2023 10-04-2023 Episodic Diverticulosis and diverticulitis (1 source) Diverticulitis of intestine, part unspecified, without perforation or abscess without bleeding; Translations: [Diverticulitis of intestine, part unspecified, without perforation or abscess without bleeding] Onset: 10-22-2023 Chronic Intestinal obstruction without hernia (3 sources) Small bowel obstruction; Translations: [Unspecified intestinal [...] Impingement syndrome of right shoulder Episodic Other connective tissue disease (1 source) Neurogenic claudication; Translations: [Other symptoms and signs involving the nervous system] 11-14-2023 Episodic Other connective tissue disease (3 sources) Other symptoms and signs involving the nervous system; Translations: [Other symptoms and signs involving the nervous system] Onset: 11-14-2023 Episodic Other injuries and conditions due to [...] Spondylosis; intervertebral disc disorders; other back problems (15 sources) Sacrococcygeal disorders, not elsewhere classified; Translations: [...] left hand] Onset: 05-21-2023 Unclassified (1 source) New Patient Onset: 11-14-2023 Unclassified (1 source) Low back pain, unspecified; Translations: [Low back pain, unspecified] Onset: 10-22-2023 Past or Other Problems Problem Classification Problem Date Documented Date Episodic/Chronic Mood disorders (3 sources) Mood disorders Onset: 07-29-2023 07-29-2023 Other screening for suspected conditions (not mental disorders or infectious disease) (3 sources) Raised prostate specific antigen; Translations: [Elevated prostate specific antigen [PSA]] Onset: 10-09-2016 01-21-2023 Episodic Other skin disorders (3 sources) Eruption; Translations: [Rash and other nonspecific skin eruption] Onset: 03-12-2017 05-19-2020 Episodic Residual codes; unclassified (3 sources) Localized edema; Translations: [Localized edema] Onset: 02-08-2020 02-08-2020 Episodic Spondylosis; intervertebral disc disorders; other back problems (20 sources) Sacroiliitis, not elsewhere classified; Translations: [Other intervertebral disc degeneration, lumbar region] Onset: 04-20-1996 Resolved: 10-04-2023 Chronic Unclassified (1 source) LOW BACK PAIN, UNSPECIFIED; Translations: [LOW BACK PAIN, UNSPECIFIED] Onset: 11-22-2022 Urinary tract infections (3 sources) Urinary tract infectious disease; Translations: [Urinary tract infection, site not specified] Onset: 05-08-2017 Resolved: 10-04-2023 10-04-2023 Episodic Varicose veins of lower extremity (3 sources) Pain co-occurrent and due to varicose veins of right leg; Translations: [Varicose veins of right lower extremity with pain] Onset: 02-08-2020 02-08-2020 Episodic Results Test Name Value Interpretation Reference Range Facil ity XR SPINE LUMB BENDING ONLY 2 -3 VWSon 11-16-2023 XR SPINE LUMB BENDING ONLY 2-3 VWS XR SPINE LUMB BENDING ONLY 2-3 VWS Clinical history: Back pain Lumbar spine flexion-extension views: 11/14/2023 COMPARISON: None FINDINGS: Lateral flexion and extension views lumbar spine were obtained. There is loss of intervertebral disc height throughout. No focal osseous lesion is evident. Facet degenerative changes are present. There is anterolisthesis of L4 on L5 measuring 6 mm on extension and 7 mm in flexion. IMPRESSION: Stents of lumbar degenerative changes with anterolisthesis of L4 on L5 with minimal movement as described above. No acute osseous deformity evident radiographically. Finalized by Juan F Morrell MD on 11/16/2023 8:57 PM [facility] MR LUMBAR SPINE WO CONTon MR LUMBAR [...] Shaggy Ortega MD on 11/01/2023 10:24 AM Normal [facility] XR shoulder RT min 2V*on XR shoulder RT min 2V* [facility] Main [address] [address] XRay Report Signed Patient: Regan Green MR#: [id number] 63 : 1950 Acct:[id number] Age/Sex: 73 / M ADM Date: 06/24/23 Loc: [facility] [place] [facility]: [facility] Dr: Charity Barkley MD Copies to: [...] Artie Goldsmith M.D.06/24/2023 12:37 PM Dictation Location: [place] [address] Transcribed By: [facility] 06/24/23 1237 Dictated By: Artie Goldsmith DO 06/24/23 1236 Signed By: 06/24/[address] [facility] XR hand LT min 3V*on 023 XR hand LT min 3V* [facility] Main [address] [address] XRay Report Signed Patient: Regan Green MR#: [id number] [birth year] : 1950 Acct:[id number] Age/Sex: 73 / M ADM Date: 05/21/23 Loc: [facility] [place] Room: [facility] Attending Dr: Charity Barkley MD Copies to: [...] PROCESS. Impression dictated by: Regan Vigil Jr., DLeonidesOLeonides05/21/2023 1:53 PM Dictation Location: [facility] Transcribed By: [facility] 05/21/23 135 Dictated By: Regan Vigil Jr, DO 05/21/23 135 Signed By: 05/21/23 135 [facility] Covid-19 PCR (CVDTB)on SARS-CoV-2 (COVID-19) RNA YASMIN+probe Ql (Unsp spec) Not detected Normal NOT DETECTED [facility] Comment on above: Result Comment: This test is not yet jory roved or cleared by the [place] FDA. When there are no FDA-approved or cleared tests available, and other criteria are met, FDA can make tests available under an emergency access mechanism called an Emergency Use Authorization (EUA). The EUA for this test is supported by the Supervisor Contact And Service Clerks of Health and Human Service's (HHS's) declaration [...] consistent with SARS-CoV-2. Performed By: #### C VDTB #### [facility] Laboratory [address] [place] [address] Dr. Keely Fitgzerald MRI Shoulder w/o Lefton 04-2 MRI Shoulder w/o Left HISTORY: Lifting injury. [...] by Boogie Modi on 02/23/2022 1229 Normal [facility] Photography Intern Brenna 04-28-2021 [facility] Telephone (JERE) -------- REGAN GREEN ([id number]) 1950 M Date Time Provider Department 04/28/21 OZZY PEREZ During your visit today, we recorded the following information about you: [place] [facility] 04/28/2021 10:08 AM Signed PSA order mailed [...] IWONA BUENO on 04/28/21 Normal [facility] PELVIS 1 OR 2 [facility] 04-16-20 18 PELVIS 1 OR [facility] [address] [place] [id number] ==Patient Name: REGAN GREEN : 1950ex: MAge: Race: WhiteMRN: [id number]. Location: 84Patient Status: OVisit #: [id number] Date: 04/16/2018 9:20:00 AMCompleted Date: 04/16/2018 09:18 AMRequesting Provider: BILLY KILLIAN Attending Provider: BILLY KILLIAN Report Copy To: Signs & Symptoms: M46.1 Sacroiliitis, not elsewhere classified [id number]: AthenaComments: , , , Ordering Provider - BILLY KILLIAN MD , Exam: PELVIS 1 OR 2 VWSAccession #: [id number] =========PELVIS 1 OR 2 VWS 04/16/2018 9:18 [...] fracture Electronically signed by:Rios Le. Transcribed by: [email or web address], User Resident: Electronically Signed by: RIOS LE @ 04/16/2018 10:35 AM Normal [facility] Comment on above: Order Comment: , , , Ordering Provider - BILLY KILLIAN MD , Vital Signs Date Time Vital Sign Value Performing Clinician Facility 11-14-2023 09:59-0500 Body height 180.3 cm Carl ABERNATHY Work Phone: [facility] 11-14-2023 09:59-0500 Body mass index (BMI) [Ratio] 29.57 kg/m2 Carl ABERNATHY Work Phone: [facility] 11-14-2023 09:59-0500 Body weight 96.16 kg Carl Sosa SENIOR BIOSTATISTICIAN/GROUP LEADER-DATA TYPIST [facility] 11-14-2023 09:59-0500 Diastolic blood pressure 86 mm[Hg] Carl Sosa SENIOR BIOSTATISTICIAN/GROUP LEADER-DATA TYPIST [facility] 11-14-2023 09:59-0500 Heart rate 81 /min Carl Sosa SENIOR BIOSTATISTICIAN/GROUP LEADER-DATA TYPIST [facility] 11-14-2023 09:59-0500 Systolic blood pressure 135 mm[Hg] Carl Sosa SENIOR BIOSTATISTICIAN/GROUP LEADER-DATA TYPIST [facility] 05-21-2023 10:00-0400 Body height 182.88 cm Charity Filippo Other [facility] Other 05-21-2023 10:00-0400 Body mass index (BMI) [Ratio] 30.51 kg/m2 Charity Filippo Other [facility] Other 05-21-2023 10:00-0400 Body weight 102.06 kg Charity Filippo Other [facility] Other Encounters Encounter Date Encounter Type Care Provider Facility Start: 11-22-2023 ambulatory CARL IAN [facility] Start: 11-18-2023 End: 11-19-2023 ambulatory Rosales Corona MD Facility: [facility] Start: 11-14-2023 End: 11-15-2023 ambulatory CARL SOSA [facility] Start: 11-14-2023 End: 11-14-2023 [facility]ulatory [facility] Start: 11-14-2023 End: 11-14-2023 Office outpatient new 45 minutes Carl Sosa SENIOR BIOSTATISTICIAN/GROUP LEADER-DATA TYPIST Work Phone: [facility] Comment on above: Neurogenic claudicat ion (Primary Dx); Lumbar radiculopathy, chronic Start: 11-05-2023 Telephone encounter Dolores Rm MA [facility] Comment on above: Er Follow-up Lumbar radiculopathy , chronic (Primary Dx) Start: 11-01-2023 End: 11-02-2023 ambulatory SUMANTH Jony [facility] Start: 10-31-2023 End: 10-31-2023 Emergency department patient visit SUMANTH Borges [facility] Start: 10-30-2023 End: 10-30-2023 ambulatory Charity Barkley Other [facility] Other Start: 10-30-2023 Office outpatient vi sit 15 minutes Charity Calvey [facility] Start: 10-22-2023 End: 10-23-2023 Emergency department patient visit MAEVE HICKMANKATHLEEN [facility] Start: 08-20-2023 End: 08-20-2023 ambulatory Charity Barkley Other [facility] Other Start: 08-20-2023 Office outpatient vi sit 15 minutes Charity Calvey [facility] Start: 07-23-2023 End: 07-23-2023 ambulatory Charity Calvey Other [facility] Other Start: 07-23-2023 Office outpatient vi sit 15 minutes Charity Calvey [facility] Start: 06-24-2023 Office outpatient vi sit 15 minutes Charity Calvey [facility] Start: 06-24-2023 End: 06-24-2023 ambulatory NON STAFF Facility:[facility] Start: 06-24-2023 End: 06-24-2023 ambulatory NON STAFF [facility] Work Phone: Start: 06-24-2023 End: 06-24-2023 Patient encounter procedure MD Charity Barkley Work Phone: [facility] Start: 05-21-2023 Office outpatient ne w 30 minutes Charity Calvey [facility] Start: 05-21-2023 End: 05-21-2023 ambulatory Charity Gudino Filippo [facility] Work Phone: Start: 05-21-2023 End: 05-21-2023 Patient encounter procedure MD Charity Barkley Work Phone: [facility] Start: 03-19-2023 End: 03-20-2023 ambulatory NARENDRANATH LAKSHMIPATHY . Facility:[facility] Start: 02-21-2023 End: 02-22-2023 ambulatory NARENDRANATH LAKSHMIPATHY . Facility:[facility] Start: 12-18-2022 End: 12-19-[address] ROMERO SOSA . Facility:[facility] Start: 11-22-2022 End: 11-23-[address] ROMERO SOSA . Facility:[facility] Start: 10-11-2022 Encounter for preprocedural laboratory examination DR ROMERO SOSA . [facility] Start: 10-09-2022 End: 10-09-[address] ROMERO SOSA . Facility:[facility] Start: 10-05-2022 End: 10-06-[address] ROMERO SOSA . Facility:[facility] Start: 10-05-2022 End: 10-06-2022 Encounter for preprocedural laboratory examination DR ROMERO SOSA . Facility:[facility] Start: 10-01-2022 Encounter for preprocedural cardiovascular examination ISELA SALMERON . [facility] Start: 09-26-2022 End: 09-27-2022 ambulatory ISELA SALMERON [...] Facility:[facility] Start: 04-16-2018 End: 04-17-2018 Ambulatory BILLY EBRAHEIM Facility:[facility] Start: 01-28-2018 End: 01-29-2018 Ambulatory DEFAULT PHYSICIAN Facility:[facility] Procedures Date Procedure Procedure Detail Performing Clinician Start: 07-29-2023 Adult depression screening assessment Dolores Anderson CMA Start: 06-24-2023 Plain X-ray of right shoulder MD Charity Barkley Work Phone: Start: 05-21-2023 Plain X-ray of left hand MD Charity Barkley Work Phone: Plan of Treatment Date Care Activity Detail Author Start: 11-14-2024 Adult BMI Screening Adult BMI Screen ing [facility] Start: 11-14-2024 Tobacco Screening Tobacco Screening [facility] Start: 10-31-2024 Tobacco Screening Tobacco Screening [facility] Start: 10-23-2024 Fall Risk Screening Fall Risk Screen ing [facility] Start: 10-22-2024 Adult BMI Screening Adult BMI Screen ing [facility] Start: 07-30-2024 End: 07-30-2024 Patient encounter procedure 07/30/2024 8:30 AM EDT Office Visit [facility] [address] [place] [address] Sumanth Hill MD [address] [place], [place] [id number] [facility] Start: 07-29-2024 Depression Screening Depression Scre ening [facility] Start: 07-29-2024 Medicare Annual Well ness Visit Medicare Annual Wellness Visit [facility] Start: 04-21-2024 End: 04-21-2024 Patient encounter procedure 04/21/2024 1:45 PM EDT Office Visit [facility] [address] [place] [address] [facility] [place] [address] Juan F Heller MD [address] [place] [address] [facility] Start: 11-14-2023 End: 11-14-2024 XR Lumbar spine Views AP W right bending and W left bending [facility] Work Phone: Comment on above: Expected: 11/14/2023 , Expires: 11/14/2024 Start: 07-05-2023 COVID-19 Vaccine ( season) COVID-19 Vaccine ( season) [facility] Start: 07-24-2013 Administration of varicella zoster vaccine Zoster (Shingles) Vaccine (1 of 2) [facility] Start: 1971 DTaP,Tdap and Td Vac cines (1 - Tdap) DTaP,Tdap and Td Vaccines (1 - Tdap) [facility] Start: 1970 Adult BMI Follow Up Plan Adult BMI Follow Up Plan [facility] Immunizations Immunization Date Immunization Notes Care Provider Fa cility 08-20-2022 Influenza, High-dose , Quadrivalent Dolores [facility] 04-26-2022 influenza, injectabl e, quadrivalent, preservative free Dolores [facility] 09-18-2021 influenza, injectabl e, quadrivalent, preservative free Dolores [facility] 07-20-2020 Influenza, High-dose , Quadrivalent Dolores [facility] 08-11-2019 influenza, high dose seasonal, preservative-free Dolores Justin [facility] 08-11-2019 pneumococcal polysaccharide vaccine, 23 valent Dolores [facility] 07-31-2018 influenza, injectabl e, quadrivalent, preservative free Dolores [facility] 11-20-2017 influenza, seasonal, injectable, preservative free Dolores [facility] 11-20-2017 pneumococcal conjuga te vaccine, 13 valent Dolores [facility] 08-19-2013 pneumococcal polysaccharide vaccine, 23 valent Dolores [facility] 05-29-2013 zoster vaccine, live Dolores [facility] 05-29-2013 zoster vaccine, unspecified formulation Dolores Chehi [facility] 08-18-2012 influenza virus vacc ine, whole virus Dolores [facility] 08-13-2012 pneumococcal polysaccharide vaccine, 23 valent Dolores [facility] 08-13-2012 zoster vaccine, live Dolores [facility] 09-03-2011 influenza virus vacc ine, whole virus Dolores [facility] 09-11-2010 influenza virus vacc ine, whole virus Dolores [facility] 08-22-2009 influenza virus vacc ine, whole virus Dolores [facility] Payers Date Payer Category Payer Self-pay [id number] 2023 Unknown [id number] 2019 Unknown 2017 Medicare [id number] 1959 Medicare [id number] 1959 Unknown [id number] 1959 Unknown [id number] 1950 Unknown [id number] 2.16.840.1.477382.3.579.2.59 1950 Unknown [id number] 2.16.840.1.181761.3.579.2.59 1950 Unknown [id number] 2.16.840.1.273116.3.579.2.59 1952 Unknown [id number] 2.16.840.1.775990.3.579.2.59 1952 Unknown [id number] 2.16.840.1.429017.3.579.2.59 1952 Unknown [id number] 2.16.840.1.093980.3.579.2.593 1950 Unknown [id number] 2.16.840.1.380026.3.579.2.593 1952 Unknown [id number] 2.16.840.1.807975.3.579.2.593 1952 Unknown [id number] 2.16.840.1.861417.3.579.2.593 1952 Unknown [id number] 2.16.840.1.288061.3.579.2.593 1952 Unknown [id number] 2.16.840.1.403266.3.579.2.593 1952 Unknown [id number] 2.16.840.1.209354.3.579.2.1285 1952 Unknown [id number] 2.16.840.1.700520.3.579.2.1285 1950 Unknown [id number] 2.16840.1.596004.3.579.2.1285 1952 Unknown [id number] 2.16.840.1.651583.3.579.2.1285 1952 Unknown [id number] 2.16.840.1.442401.3.579.2.1285 1952 Unknown [id number] 2.16.840.1.635741.3.579.2.1285 1952 Unknown [id number] 2.16.840.1.522762.3.579.2.1285 1950 Unknown [id number] 2.16.840.1.185001.3.579.2.196 Unknown [facility] [id number] Unknown [id number] 2.16.840.1.901555.3.579.2.531 Unknown [id number] 2.16.840.1.443903.3.579.2.531 Worker's Compensation [id number] Social History Date Type Detail Facility Unknown if ever smoked [facility] Work Phone: Start: 12-01-2019 End: 12-15-2020 Sex Assigned At [facility] [employer] Other Start: 1950 Sex Assigned At Male F [facility] Start: 01-17-2023 Tobacco smoking stat NHIS Ex-smoker [facility] History of tobacco use Current smoker [facility] History of tobacco use Cigarette Smoker P [facility] Start: 01-17-2023 Tobacco use and exposure Smokeless tobacco non-user [facility] Start: 10-31-2023 End: 11-14-2023 Alcohol intake Current drinker of alcohol (finding) [facility] Start: 12-01-2019 End: 12-15-2020 History of Social function [facility] Frequency of Alcohol Consumption 4 or more times a week [facility] Start: 01-17-2023 Alcohol Comment socially [facility] Start: 1950 Sex Assigned At Not on file P [facility] Goals Date Patient Goal Desired Activity /State Personal health goal Comment on above: Formatting of this n ote might be different from the original. Evaluation of progress towards goal: under assessment, has NG Clinical Notes 06-14-2022 to 11-14-2023 Carl Sosa APRN-LATOYA - 11/14/2023 9:30 AM ESTPatient InstructionsTelephone Encounter - Dolores Anderson CMA - 11/05/2023 9:48 AM EST Note Date & Type Note Facility 11-14-2023 History of Presen t illness Narrative Images from the original note were not included. [facility] [address] [place] [address], [address] [place] [address] * CHART NOTE ? 11/14/2023 Patient: Regan Green 1950 [id number] Nurse Practitioner: Carl Sosa CNP Physician: Mayco Nolen MD, FAANS CHIEF COMPLAINT Low back and BLE pain HISTORY OF PRESENT ILLNESS 73 year old male presents to the office as a new patient for a lumbar spine consultation regarding constant sharp pain in the midline low back that began approximately one month ago. He admits to pain that radiates into the posterior hips and thighs as far as the knee, and numbness in the entire LLE and no feeling in the RLE from the knee down. He states he has weakness in the BLE and must use a wheeled walker due to feeling unstable. He has tried percocet, voltaren, zanaflex, prednisone x 2 and gabapentin without significant improvement. No PT. He was seen by [facility] in [place], but was advised they could no longer help. He has not had any interventional pain procedures, but was seen at [facility] in [place], [place], but was advised he should be seen here first. Patient's imaging was discussed and reviewed to their understanding in office today. Patient has not yet exhausted all conservative measures of treatment and is agreeable to them namely CHANTELLE. 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 Patient uses a walker Patient is not diabetic and a former smoker. No relevant surgical Hx. ALLERGIES No Known Allergies MEDICATIONS Current Outpatient Medications: diclofenac (VOLTAREN) 75 mg EC tablet, Take 1 tablet (75 mg total) by mouth in the morning and 1 tablet (75 mg total) before bedtime., Disp: , Rfl: gabapentin (NEURONTIN) 300 mg capsule, TAKE 1 CAPSULE BY MOUTH TWICE A DAY, Disp: , Rfl: oxyCODONE-acetaminophen (PERCOCET) 5-325 mg per tablet, Take 1 tablet by mouth every 4 (four) hours as needed for pain., Disp: , Rfl: tiZANidine (ZANAFLEX) 4 mg tablet, Take 1 tablet (4 mg total) by mouth every 8 (eight) hours as needed for muscle spasms., Disp: , Rfl: methylPREDNISolone (MEDROL, DEMOND,) 4 mg tablet, follow package directions, Disp: 21 tablet, Rfl: 0 VITAL SIGNS BP 135/86 Pulse 81 Ht 180.3 cm (5' 11 ) Wt 96.2 kg (212 lb) BMI 29.57 kg/m PAST MEDICAL HISTORY Past Medical History: Diagnosis Date Carcinoma of prostate (CMS-HCC) Diverticulitis Diverticulosis Fecal impaction (CMS-HCC) Inflammation of sacroiliac joint (CMS-HCC) Knee pain Low back pain Lumbar disc disorder Osteoarthritis Shingles UTI (urinary tract infection) Visual impairment PAST SURGICAL HISTORY Past Surgical History: Procedure Laterality Date ABDOMINAL ADHESION SURGERY COLONOSCOPY COLONOSCOPY N/A 03/25/2023 Performed by Matt Campbell DO at [facility] HERNIA REPAIR Left inguinal HIP SURGERY Left JOINT REPLACEMENT Right knee and revision PROSTATE BIOPSY PROSTATECTOMY FAMILY HISTORY Family History Adopted: Yes SOCIAL HISTORY Social History Socioeconomic History Marital status: Spouse name: Not on file Number of children: Not on file Years of education: Not on file Highest education level: Not on file Occupational History Not on file Tobacco Use Smoking status: Former Types: Cigarettes Smokeless tobacco: Never Vaping Use Vaping Use: Former Substances: THC Devices: Disposable Substance and Sexual Activity Alcohol use: Yes Comment: socially Drug use: Not Currently Types: Medical Marijuana Sexual activity: Yes Other Topics Concern Not on file Social History Narrative Not on file Social Determinants of Health Financial Resource Strain: Not on file Food Insecurity: No Food Insecurity (11/14/2023) Hunger Screening Food Insecurity - Worry: Never True Food Insecurity - Inability: Never True Transportation Needs: Not on file Physical Activity: Not on file Stress: Not on file Social Connections: Not on file Interpersonal Safety: Not on file REVIEW OF SYSTEMS ROS Positive Findings: Negative otherwise noted in the HPI PHYSICAL EXAMINATION Physical Exam: Mental Status: Orientation: Oriented. Level of consciousness: alert. Speech: Normal quality. Language: Normal. Motor: Muscle Bulk: Normal. Muscle Tone: Normal. Muscle Strength: Right hip flexors: 5/5 Left hip flexors: 4/5 Right hip extensors: 5/5 Left hip extensors: 4/5 Right thigh adductors: 5/5 Left thigh adductors: 4/5 Right thigh abductors: 5/5 Left thigh abductors: 4/5 Right knee extensors: 4/5 Left knee extensors: 4/5 Right knee flexors: 4/5 Left knee flexors: 4/5 Right foot dorsiflexors: 5/5 Left foot dorsiflexors: 4/5 Right foot plantar flexors: 5/5 Left foot plantar flexors: 4/5 Left upper extremity strength 5/5 Sensory: Left arm light touch normal. Right leg light touch decreased from knee. Left leg light touch: decreased in anterior thigh. Gait/Coord/DTR: Abnormal gait: Antalgic; difficulty walking due to being unable to feel RLE. Reflexes: Right brachioradialis 2+ Left brachioradialis 2+ Right biceps 2+ Left biceps 2+ Right triceps 2+ Left triceps 2+ Right patellar 0 Left patellar 2+ Right achilles 2+ Left achilles 2+ Right water plant operator 2+ Left water plant operator 2+ Right Mack reflex absent and left Mack reflex absent Right ankle clonus absent and left ankle clonus absent. MRI / IMAGES MR lumbar spine without contrast 11-01-2023 IMPRESSION: * There is a right-sided extruded [...] above. * Grade 1 spondylolisthesis at L4-L5. CT lumbar spine without contrast 10-22-2023 IMPRESSION: Findings most consistent with acute diverticulitis at the proximal sigmoid colon without visible abscess or suspicious gas within the emqad-cv-awhc Close clinical follow-up and short-term progress repeat abdominal pelvic contrast CT and colonic screening considered There is also be severe degenerative change of the lumbar spine and relatively severe canal and neural foraminal stenosis probably greatest at L3-4 and L4-5 levels There is no compression deformity or destructive bone process DIAGNOSIS / PLAN 73 year old male presents to the office as a new patient for a lumbar spine consultation regarding constant sharp pain in the midline low back that began approximately one month ago. He admits to pain that radiates into the posterior hips and thighs as far as the knee, and numbness in the entire LLE and no feeling in the RLE from the knee down. He states he has weakness in the BLE and must use a wheeled walker due to feeling unstable. He has not had any interventional pain procedures, but was seen at [facility] in [place], [place], but was advised he should be seen here first. Patient's imaging was discussed and reviewed to their understanding in office today. Patient has not yet exhausted all conservative measures of treatment and is agreeable to them namely CHANTELLE. PLAN: Lumbar flexion/extension x-rays. Medrol dose demond. Refer to PT. Refer to Pain Management for L3-4 CHANTELLE. Follow up after injections. Electronically Signed By: Carl Sosa CNP in conjunction with Mayco Nolen MD This note was created with the assistance of a speech recognition program with the goal of generating a timely record of the patient encounter. Inadvertent computerized art professor errors related to syntax, spelling, homophones, and/or inaudibility may be present. Scribe Statement: Scribed for and in the presence of JOSEMANUEL Kirk by Joshua Higginbotham. JOSEMANUEL Kirk 11/14/23 1630 documented in this encounter [facility] 11-14-2023 Instructions AINSLEY Szymanski - 11/14/2023 9:30 AM EST Patient was seen by Dr. Nolen and JOSEMANUEL Chappell Patient was given an order for an x ray Lumbar spine Flex/Ext Medrol pack Physical therapy Referral for Lumbar to PT services Pain management referral for Lumbar L3-4 Patient will follow up after Pain management JA documented [facility] this encounter [facility] 11-05-2023 Miscellaneous Notes ED Outreach This documentation is being used for Transition of Care purposes: Yes/No: Yes ED Outreach Date: November 05, 2023 ED Outreach Method: COMMUNICATION METHOD: Telephone ED Outreach Attempt: first ED Outreach Outcome: Contacted Patient Name of ED Facility: [facility] Date of ED Discharge: 10/31/2023 Discharge [...] with additional concerns. documented in this encounter [facility] 11-05-2023 Telephone encounter Note ED Outreach This documentation is being used for Transition of Care purposes: Yes/No: Yes ED Outreach Date: November 05, 2023 ED Outreach Method: COMMUNICATION METHOD: Telephone ED Outreach Attempt: first ED Outreach Outcome: Contacted Patient Name of ED Facility: [facility] Date of ED Discharge: 10/31/2023 Discharge [...] will contact the office with additional concerns. [facility] 10-30-2023 Evaluation note Encounter Date Diagnosis Assessment [...] pain of right shoulder (ICD-10 - M25.511) [facility] Other 12-19-2023 NoteCT LUMBAR SPINE WO CONT [...] abscess or suspicious gas visible within the mxrrj-gq-qndk. Repeat contrast abdominal pelvic CT may prove useful in combination with colonic screening with appropriate Probable parapelvic cysts in the left kidney Prominent vascular calcifications There is some metal artifact related to a prior surgery at the left acetabular region. 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 Sagittal images include from the lower [...] visible abscess or suspicious gas within the uwvnx-bo-qbqd Close clinical follow-up and short-term progress repeat abdominal pelvic contrast CT and colonic screening considered There is also be severe degenerative change of the lumbar spine and relatively severe canal and neural foraminal stenosis probably greatest at L3-4 and L4-5 levels There is no compression deformity or destructive bone process Finalized by Renaldo Tinajero MD on 10/22/2023 1:09 [facility] 08-20-2023 Evaluation note* Encounter Date Diagnosis [...] pain of right shoulder (ICD-10 - M25.511) [facility] Other 09-19-2023 Evaluation note* Encounter Date Diagnosis [...] pain of right shoulder (ICD-10 - M25.511) [facility] Other 08-21-2023 Evaluation note* Encounter Date Diagnosis [...] pain of right shoulder (ICD-10 - M25.511) [facility] Other 07-18-2023 Evaluation note* Encounter Date Diagnosis [...] given order for occupational therapy and braces [facility] Other 05-16-2023 NoteCONSULTATION CONSULTATION DATE: 03/19/2023 TO: [...] our patients to inform us about any ptwn-lup-tuegafk medications or herbal remedies/nutritional supplements/alternative remedies. 2. [...] treatment options with their primary care provider.[facility] [id number] Note CONSULTATION PROCEDURE DATE: 02/21/2023 PROCEDURE: Right [...] removed. He was discharged after meeting criteriaThe [facility] Medical [id number] NoteCONSULTATION CONSULTATION DATE: 12/18/2022 CHIEF COMPLAINT: Left [...] like to proceed. CC: Sumanth Hill M.D.[facility] [id number] NoteCONSULTATION PROCEDURE DATE: 12/18/2022 PREOPERATIVE DIAGNOSIS: Osteoarthritis [...] will be followed up in the office.[facility] [id number] NoteCONSULTATION CONSULTATION DATE: 11/22/2022 HISTORY OF PRESENT [...] food. We will send a referral to [facility] to have his left CMC joint evaluated. Patient does agree with this, and we will follow him up in the clinic in three months' time.[facility] [id number] NotePROCEDURE: XR HAND LT MIN 3V HISTORY: [...] authenticated by: ALESSANDRO MEJIA Date: 2022-09-26 22:39[facility] [id number] NoteCONSULTATION CONSULTATION DATE: 09/20/2022 HISTORY OF PRESENT [...] mg t.i.d., Percocet 5/325 b.i.d., multivitamin and Cthnj-Fx-Mblf. Patient, procedure-holloway, had radiofrequency ablation of his [...] to the clinic thereafter for follow up.[facility] [id number] NoteCONSULTATION CONSULTATION DATE: 08/02/2022 HISTORY OF PRESENT [...] lately, carrying heavy feed bags into the [employer] for hunting season. He knows he is [...] of care and all questions were answered.[facility] [id number] NoteCONSULTATION CONSULTATION DATE: 06/14/2022 This is a [...] and Achilles reflexes are +2. DIAGNOSIS: Code [facility] is 724.6. PLAN: We will authorize for a left SI joint injection, refill his Percocet 5/325 b.i.d. and refill Diclofenac 50 mg t.i.d. He is compliant with his vitamin regimen. At this time, I reiterated the use of heat and stretches. The patient will be followed in the clinic post-procedure and agrees to move forward.[facility] CenterEvaluation noteNo assessment information available [facility] Work Phone: Evaluation note* Diagnosis Lumbar radiculopathy, chronic- Primary [facility]* Diagnosis Neurogenic claudication- Primary Spinal stenosis of lumbar region Lumbar radiculopathy, chronic [facility] N[facility] - Reported* Type Description Date Medical History post knee right replacement Surgical History knee replacement right Surgical History hernia Surgical History prostatectomy Surgical History acetabulum fx Hospitalization History see above [facility] Other InstructionsNot on filedocumented in this encounter [facility] CenterReason for referral (narrative)* Consultation (Routine) - Pending Review Specialty Diagnoses / Procedures Referred By Gaston borges Referred To Contact Neurosurgery Diagnoses Lumbar radiculopathy, chronic Sumanth Hill MD [address] [place] [phone] Myaco Nolen MD [address] [place] [phone] Referral ID Status Reason Start Date Expiration Date Visits Requested Visits Authorized [id number] Pending Review Specialty Services Required 11/05/2023 11/04/2024 1 1 [employer] [facility] (narrative)* Consultation (Routine) - Pending Review Specialty Diagnoses / Procedures Referred By Chachacherry jony Referred To Contact Pain Medicine Diagnoses Lumbar radiculopathy, chronic Neurogenic claudication Carl Sosa APRN-CNP [address] [facility] [address] [place] [address] [address] Referral ID Status Reason Start Date Expiration Date V isits Requested Visits Authorized [id number] Pending Review 11/14/2023 11/13/2024 1 1 * Physical Therapy (Routine) - Pending Review Specialty Diagnoses / Procedures Referred By Gaston borges Referred To Contact Rehabilitation Diagnoses Lumbar radiculopathy, chronic Neurogenic claudication Carl Sosa APRN-CNP [address] [facility] [address] [place] [address] [facility] [address] [place] [address] Referral ID Status Reason Start Date Expiration Date Visits Requested Visits Authorized [id number] Pending Review Specialty Services Required 11/14/2023 11/13/2024 1 1 [facility] Summary Purpose Family History No Family History Records FoundNo Family History Records FoundNo Family History Records FoundNo Family History Records FoundNo Family History Records FoundNo Family History Records FoundNo Family History Records FoundNo Family History Records FoundNo Family History Records Found Advance Directives No Advanced Directives Records Found Advance Directive Response Recorded Date/ Time Advance [...] section and content) DATE CREATED AUTHOR 04/21/2018 [facility] DATE CREATED AUTHOR AUTHOR'S ORGANIZ ATION 12/04/2021 [facility] DATE CREATED AUTHOR AUTHOR'S ORGANIZ ATION 02/25/2022 [facility] dical Specialist DATE CREATED AUTHOR AUTHOR'S ORGANIZ ATION 04/12/2023 [facility] DATE CREATED AUTHOR AUTHOR'S ORGANIZ ATION 07/01/2023 [facility] DATE CREATED AUTHOR AUTHOR'S ORGANIZ ATION 11/17/2023 [facility] DATE CREATED AUTHOR AUTHOR'S ORGANIZ ATION 11/17/2023 [facility] DATE CREATED AUTHOR AUTHOR'S ORGANIZ ATION 11/24/2023 [facility] DATE CREATED AUTHOR AUTHOR'S ORGANIZ ATION 11/27/2023 [facility] REASON FOR VISIT (unrecogniz ed section and content) Reason Onset Date Comments Er Follow-up 11/05/2023 Reason Comments 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/c/mailed pkt Specialty Diagnoses / Procedures Referred By Contac t Referred To Contact Neurosurgery Diagnoses Lumbar radiculopathy, chronic DefSumanth velasquez MD [address] [place] [phone] Mayco Nolen MD [address] [place] [phone] Referral ID Status Reason Start Date Expiration Date Visits Requested Visits Authorized [id number] Pending Review Specialty Services Required 11/05/2023 11/04/2024 1 1 Care Teams (unrecognized sec tion and content) [...] Active Charity Barkley MD Attending Provider Active Nutrition Internship Relationship Specialty Start Date End Date Sumanth Hill MD [address] [address] PCP - General [facility] 01/16/23 Nutrition Internship Relationship Specialty Start Date End Date Sumanth Hill MD [address] [place] [address] PCP - [facility] 01/16/23 Nutrition Internship Relationship Specialty Start Date End Date Sumanth Hill MD [address] [place], [place] [phone] PCP - [facility] 01/16/23 Goals (unrecognized section and content) Goals [...] BE BASED ON THE PRIMARY CLINICAL RECORDS. [facility] [employer] [facility]. provides no warranty or guarantee of the accuracy or completeness of information in this document.
--- NOTE | 2023-11-27 08:26 | PM.CN ---
Consult Note: HPI Data of Consult Patient: known to practice within the last 3 years Requesting Physician: Danielle Davila NP Primary Care Provider: SUMANTH BECK Consult Narrative Reason for consult: f/u Narrative: Regan Green a pleasant 73 year old male presents for evaluation and management of chronic low back pain, lumbar stenosis, lumbar radiculopathy, myofascial pain. Recently underwent right L3-4 L4-5 TFESI with no improvement in radicular symptoms or strength. Patient following with Dr Slick CRAIG in [place] who is planning for a L3-4 laminectomy, patient currently engaged in PT that is increasing his pain. He has attended 1 session so far and is planning to go twice a week. Patient continues to be in severe pain and ambulating with a cane and walker. Pain today 10/10 low back bilateral legs, numbness and weakness to bilateral legs worse on the right. Mild benefit from percocet, diclofenac, tizanidine, and gabapentin. cc:: CC: Danielle Davila NP Review of Systems ROS Status of ROS 10 or more systems reviewed and unremarkable except as noted in history and below Musculoskeletal Reports: back pain, extremity pain and muscle weakness PFSH PFS Medical History Sacroiliitis, not elsewhere classified ?M46.1 - Sacroiliitis, not elsewhere classified (ICD-10) Meds Home Medications and Allergies Home Medications Medication Instructions Recorded Confirmed Type OSCAL WITH D PO .QD 04/18/23 History diclofenac sodium 75 mg 75 mg PO BID 04/18/23 11/18/23 History tablet,delayed release glucosamine-chondroitin 250 mg-200 2 tab PO .QD 04/18/23 11/18/23 History mg tablet (Osteo Bi-Flex) multivitamin 1 tab PO DAILY 04/18/23 11/18/23 History oxycodone-acetaminophen 5 mg-325 1 tab PO BID PRN pain 04/18/23 11/18/23 History mg tablet oxycodone-acetaminophen 5 mg-325 1 tab PO BID PRN pain #60 tabs 10/21/23 10/24/23 Rx mg tablet (Percocet) tizanidine 4 mg capsule 4 mg PO BID PRN muscle spasticity 10/24/23 11/18/23 History oxycodone-acetaminophen 5 mg-325 1 tab PO BID PRN pain #60 tabs 11/14/23 Rx mg tablet (Percocet) Allergies Allergy/AdvReac Type Severity Reaction Status Date / Time No Known Drug Allergies Allergy Verified 11/18/23 10:53 Exam Constitutional Documenting provider has reviewed patient's vital signs: yes Common normals: no apparent distress, oriented x3, healthy appearing, alert and well nourished General appearance: cooperative HENMT Common normals: normocephalic, hearing grossly normal bilaterally and moist oral mucous membranes Head and scalp: normocephalic Eye Common normals: PERRL Pupil: PERRL Neck & C-Spine Common normals: full ROM General: normal visual inspection Chest Common normals: inspection of chest normal Respiratory Common normals: normal respiratory effort, no retractions and no use of accessory muscles Back & Pelvis Lumbar spine/lower back: ROM limited, pain with ROM and straight leg raise negative bilaterally Extremity Common normals: full ROM Neuro Common normals: oriented x3, CN's II-XII intact bilaterally, moves all extremities, no focal motor deficits, no sensory deficits noted and deep tendon reflexes 2+ bilaterally Sensorium/orientation: alert Gait (neuro): antalgic and assistive device used Motor exam: no movement abnormalities noted Other: decreased sensation to bilateral legs following L3-4 dermatomal pattern strength 3.5/5 in RLE 4/5 in LLE Psych Common normals: mental status grossly normal, thought process normal, cooperative, affect normal, speech normal and activity/motor behavior normal Speech: normal speech Thought process: normal thought process Results Additional Findings Additional findings: I have checked an OARRS report on this patient today and there are no aberrancies noted in the prescribing history.?? A drug screen was completed and reviewed within the last year, and if there has not been a drug screen completed we ordered one today to monitor higher risk, state monitored pain medication use. As part of providing excellent, safe, comprehensive care, the following was completed at our patient's visit: 1. A medication reconciliation and review to ensure accurate knowledge of current/active medications, including asking our patients to inform us about any [id number]-klrfoof medications or herbal remedies/nutritional supplements/alternative remedies. 2. A review to specifically ensure our patients have had annual screening for: elevated body mass index (BMI), tobacco use, screening for depression, and screening for unhealthy alcohol use. When screening is concerning, patients are provided with education and the specific recommendation to discuss the concerning health issue and treatment options with their primary care provider. Assessment and Plan Assessment and Plan (1) Lumbar radiculopathy: (2) Lumbar stenosis: Qualifiers: Neurogenic claudication status: with neurogenic claudication Qualified Code(s): M48.062 - Spinal stenosis, lumbar region with neurogenic claudication (3) Muscle spasm: (4) Chronic prescription opiate use: Assessment and Plan: I feel these medications are improving the patient's quality of life and allow them to tolerate activities of daily living as well as participate in recreational activity.? The patient does not report intolerable side effects. The patient is NOT opioid naive and non-pharmacologic and non-opioid treatment has failed to significantly relieve the patient's pain and improve functionality. The patient has a diagnosis that is related to a somatic or visceral pain etiology. ? ?? I reviewed with the patient the potential risks and side effects with the use of? opioid medications including but not limited to respiratory depression,? sedation, and even . I verified the patient has access to naloxone should? these effects occur. I advised the patient to avoid the use of any other? sedation substances including alcohol, THC, and benzodiazepines while? taking opioid medications due to the risk of compounding side effects and? detrimental outcomes. I reviewed the ECONOMIC RESEARCH ANALYST, pain treatment agreement, urine? drug screen, and opioid start talking forms. The patient was advised to let? their family know they had Naloxone in case they would need to administer? the medication.? ?? A drug screen was completed within the last year, and no aberrancies were noted regarding their use of controlled substances. The patient understands they are subject to the terms and conditions of the pain contract that they have signed. ? ?? I have checked an OARRS report on this patient today and there are no aberrancies noted in the prescribing history.? Plan continue f/u with Dr Kruger increase gabapentin to 600mg BID increase percocet to 5-325mg TID PRN moderate to severe pain continue diclofenac 75mg BID, tizanidine 4-8mg TID PRN f/u 6 weeks
== END 2023-11-27 07:50 | disposition home or self-care (01) ==
PROVIDERS: PCP Family Medicine; Visit Provider Nurse Practitioner
DX: M54.16 Radiculopathy, lumbar region (principal); M48.062 Spinal stenosis, lumbar region with neurogenic claudication; M62.838 Other muscle spasm; Z79.891 Long term (current) use of opiate analgesic
CPT/HCPCS: G0463

== ENCOUNTER 2024-01-22 08:35 | Outpatient (OUT) | payer MEDICARE, OTHER, SELFPAY ==
--- NOTE | 2024-01-22 08:39 | P.CN_ITS ---
Consult Note: HPI Data of Consult Patient: known to practice within the last 3 years Requesting Physician: Danielle Davila NP Primary Care Provider: SUMANTH BECK Consult Narrative Reason for consult: f/u Narrative: Regan Green a pleasant 73 year old male presents for evaluation and management of chronic low back pain, lumbar stenosis, lumbar radiculopathy, myofascial pain. Patient following with Dr Slick CRAIG in [place] who is performed L2-5 laminectomy on 12/25 with benefit. Patient currently on bending, lifting, twisting restrictions post op. Patient had stopped gabapentin with surgery and did not restart. Pain today 5/10 in bilateral hips and right knee. Patient finds moderate benefit from current medication regimen without side effects. cc:: CC: Danielle Davila NP Review of Systems 2 ROS0 Status of ROS 10 or more systems reviewed and unremark able except as noted in history and below Musculoskeletal Reports: back pain, extremity pain and muscle weakness PFSH PFSH Medical History Sacroiliitis, not elsewhere classified ?M46.1 - Sacroiliitis, not elsewhere classified (ICD-10) Meds Home Medications and Allergies Home Medications ?Medication ?Instructions ?Recorded ?Confirmed ?Type OSCAL WITH D PO .QD 04/18/23 History diclofenac sodium 75 mg 75 mg PO BID 04/18/23 11/18/23 History tablet,delayed release glucosamine-chondroitin 250 mg-200 2 tab PO .QD 04/18/23 11/18/23 History mg tablet (Osteo Bi-Flex) multivitamin 1 tab PO DAILY 04/18/23 11/18/23 History oxycodone-acetaminophen 5 mg-325 1 tab PO BID PRN pain 04/18/23 11/18/23 History mg tablet oxycodone-acetaminophen 5 mg-325 1 tab PO BID PRN pain #60 tabs 10/21/23 10/24/23 Rx mg tablet (Percocet) tizanidine 4 mg capsule 4 mg PO BID PRN muscle spasticity 10/24/23 11/18/23 History oxycodone-acetaminophen 5 mg-325 1 tab PO BID PRN pain #60 tabs 11/14/23 Rx mg tablet (Percocet) gabapentin 600 mg tablet 600 mg PO BID #60 tabs 11/27/23 Rx tizanidine 4 mg tablet 8 mg (2 x 4 mg) PO TID PRN muscle 11/27/23 Rx spasticity #180 tabs oxycodone-acetaminophen 5 mg-325 1 tab PO TID PRN pain #90 tabs 12/05/23 Rx mg tablet (Percocet) Allergies Allergy/AdvReac Type Severity Reaction Status Date / Time No Known Drug Allergies Allergy Verified 11/18/23 10:53 Exam Constitutional Documenting provider has reviewed patient's vital signs: yes Common normals: no apparent distress, oriented x3, healthy appearing, alert and well nourished General appearance: cooperative HENMT Common normals: normocephalic, hearing grossly normal bilaterally and moist oral mucous membranes Head and scalp: normocephalic Eye Common normals: PERRL Pupil: PERRL Neck & C-Spine Common normals: full ROM General: normal visual inspection Chest Common normals: inspection of chest normal Respiratory Common normals: normal respiratory effort, no retractions and no use of accessory muscles Back & Pelvis Lumbar spine/lower back: straight leg raise negative bilaterally Sacroiliac joints: SI joints normal Other: right buttock pain as noted below, pain increased with sitting, standing, walking Back image (male): 2 1. Extremity Common normals: full ROM Neuro Common normals: oriented x3, CN's II-XII intact bilaterally, moves all extremities, no focal motor deficits, no sensory deficits noted and deep tendon reflexes 2+ bilaterally Sensorium/orientation: alert Gait (neuro): antalgic and assistive device used cane Motor exam: no movement abnormalities noted and strength abnormal Other: strength 4/5 in RLE, 5/5 in LLE Psych Common normals: mental status grossly normal, thought process normal, cooperative, affect normal, speech normal and activity/motor behavior normal Speech: normal speech Thought process: normal thought process Results Additional Findings Additional findings: If on a controlled substance or opioids, I have checked an OARRS report on this patient and there are no aberrancies noted in the prescribing history.??If on a controlled substance or opioid a drug screen was completed and reviewed within the last year, and if there has not been a drug screen completed we ordered one today to monitor higher risk, state monitored pain medication use. As part of providing excellent, safe, comprehensive care, the following was completed at our patient's visit: 1. A medication reconciliation and review to ensure accurate knowledge of current/active medications, including asking our patients to inform us about any gusf-svy-syeqkgv medications or herbal remedies/nutritional supplements/alternative remedies. 2. A review to specifically ensure our patients have had annual screening for screening for depression, screening for tobacco use, and screening for unhealthy alcohol use. For concerning screenings had a discussion with the patient, provided patient education, and recommended follow-up with primary care provider when appropriate. If patient noted with a risk of falling, they received education on strength, gait, and balance training to prevent future risk of falling. Assessment and Plan Assessment and Plan (1) Post laminectomy syndrome: (2) Lumbar radiculopathy: (3) Lumbar stenosis: Qualifiers: Neurogenic claudication status: with neurogenic claudication Qualified Code(s): M48.062 - Spinal stenosis, lumbar region with neurogenic claudication (4) Muscle spasm: (5) Chronic prescription opiate use: Assessment and Plan: I feel these medications are improving the patient's quality of life and allow them to tolerate activities of daily living as well as participate in recreational activity.? The patient does not report intolerable side effects. The patient is NOT opioid naive and non-pharmacologic and non-opioid treatment has failed to significantly relieve the patient's pain and improve functionality. The patient has a diagnosis that is related to a somatic or visceral pain etiology. ? ?? I reviewed with the patient the potential risks and side effects with the use of? opioid medications including but not limited to respiratory depression,? sedation, and even . I verified the patient has access to naloxone should? these effects occur. I advised the patient to avoid the use of any other? sedation substances including alcohol, THC, and benzodiazepines while? taking opioid medications due to the risk of compounding side effects and? detrimental outcomes. 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 drug screen, and opioid start talking forms. The patient was advised to let? their family know they had Naloxone in case they would need to administer? the medication.? The patient was advised that U.S. Food and Drug Administration (FDA) is warning that respiratory depression may occur in patients using gabapentin (Neurontin, Gralise, Horizant) or pregabalin (Lyrica, Lyrica CR) who have respiratory risk factors. These include the use of opioid pain medicines and other drugs that depress the central nervous system, and conditions such as chronic obstructive pulmonary disease (COPD) that reduce lung function. The elderly are also at higher risk.? A drug screen was completed within the last year, and no aberrancies were noted regarding their use of controlled substances. The patient understands they are subject to the terms and conditions of the pain contract that they have signed. ? ?? I have checked an OARRS report on this patient today and there are no aberrancies noted in the prescribing history.? Plan continue f/u with Dr Kruger restart gabapentin 300mg HS decrease percocet 5-325mg BID PRN mdoerate to severe pain continue diclofenac 75mg BID PRN, tizanidine 4-8mg TID PRN f/u 2 months
== END 2024-01-22 08:36 | disposition home or self-care (01) ==
PROVIDERS: PCP Family Medicine; Visit Provider Nurse Practitioner
DX: M96.1 Postlaminectomy syndrome, not elsewhere classified (principal); M54.16 Radiculopathy, lumbar region; M48.062 Spinal stenosis, lumbar region with neurogenic claudication; M62.838 Other muscle spasm; Z79.891 Long term (current) use of opiate analgesic
CPT/HCPCS: G0463

== ENCOUNTER 2024-03-03 12:24 | Outpatient (OUT) | payer MEDICARE, OTHER, SELFPAY ==
--- NOTE | 2024-03-03 | CONS_ITS ---
CONSULTATION DATE: 03/03/2024 TO: Juan Carlos Ngo M.D. CHIEF COMPLAINT: Includes right lower back pain, leg pain. HISTORY: He reports the pain as being 6/10, fairly constant in nature, described as a deep aching pain with a sharp component. It is increased with activities such as standing, walking and performing transitioning maneuvers. Patient feels most comfortable in the semi-recumbent position. Denies any change in bowel and bladder habits. He reports progressive weakness and tingling and numbness of the right lower extremity. CURRENT MEDICATIONS: He has been using diclofenac 75 mg b.i.d., and has been using ibuprofen prior to that for at least the last 6-8 weeks. Other medication includes baclofen 10 mg t.i.d. p.r.n. tizanidine 8 mg daily p.r.n. His SRINIVAS was at 60%. EXAM: Notable for patient having hypoesthesia along the right L4 dermatome, depressed right patellar reflex. Straight leg is positive at approximately 90 degrees, and 3/5 strength involving the right anterior tibialis and quadriceps. Patient had severe myofascial spasm of lumbar paravertebral muscles occurring bilaterally. IMPRESSION: Our impression is patient appears to have chronic pain secondary to right L4 radiculopathy. This seems to be improved compared to the last visit. He does have persistent myofascial spasm. RECOMMENDATIONS: I have recommended the patient discontinue his tizanidine. Will trial increasing his baclofen 10 mg pills, one t.i.d. as tolerated, and increase the Neurontin to 300 mg t.i.d. as tolerated as well. Will see the patient back in the office, checking his response to change in medication. If he fails to have significant improvement, may consider proceeding with caudal epidural steroid injection as well as possibly considering EMG nerve conduction velocity study of his lower extremities and an MRI. As part of providing excellent, safe, comprehensive care, the following was completed at our patient's visit: 1. A medication reconciliation and review to ensure accurate knowledge of current/active medications, including asking our patients to inform us about any uyrb-qqu-belnest medications or herbal remedies/nutritional supplements/alternative remedies. 2. A review to specifically ensure our patients have had annual screening for: elevated body mass index (BMI, see intake chart for exact total), tobacco use, screening for depression, and screening for unhealthy alcohol use. When screening is concerning, patients are provided with education and the specific recommendation to discuss the concerning health issue and treatment options with their primary care provider. IGLESIA
--- OUTSIDE RECORDS SUMMARY | 2024-03-03 12:39 | XMS_ITS | CCD ---
Author Organization [facility] Care Team Providers Care Ward Aide Name Role Phone PHYSICIAN, DEFAULT Unavailable Unavailable [...] DR ROMERO Ruiz Admitting Unavailable DEFRANCE, DR JLUIO Primary Care Unavailable SOSA ., DR ROMERO Ruiz Consulting Unavailable DEFRANCE, DR JULIO Consulting Unavailable SOSA ., DR ROMERO Ruiz Attending Unavailable SOSA ., DR ROMERO Ruiz Admitting Unavailable SALMERON ., ISELA Consulting Unavailable DEFRANCE, DR JULIO Primary Care Unavailable LAKSHMIPATHY ., NARENDYUMI Consulting Ceci vailable LAKSHMIPATHY ., BLAKE Attending Ceci vailable LAKSHMIPATHY ., BLAKE Admitting Ceci vailable DEFRANCE, DR JULIO Primary Care Unavailable HALKER .MYLENE Consulting Unavailable SOSA ., DR ROMERO Ruiz Admitting Unavailable DEFRANCE, DR JULIO Primary Care Unavailable SOSA ., DR ROMERO Ruiz Consulting Unavailable SOSA ., DR ROMERO Ruiz Attending Unavailable LAKSHMIPATHY ., NARENDYUMI Admitting Ceci vailable LAKSHMIPATHY ., NARENDYUMI Attending Ceci vailable HALKER ., MYLENE Consulting Unavailable DEFRANCE, DR JULIO Primary Care [...] Attending Unavailable NON STAFF Primary Care Provider Unavailjudah Hill MD, Sumanth Borges Primary Care Provider Chloe DELUCA, Rosales Leon Attending Unavailable CARL SOSA Attending Unavailable DEFRANCE, SUMANTH T Referring Unavailable DEFRANCE, SUMANTH T Primary Care Unavailable DEFRANCE, SUMANTH T Referring Unavailable DEFRANCE, SUMANTH T Primary Care Unavailable SOSA, CARL Attending Unavailable SOSA, CARL Referring Unavailable DEFRANCE, SUMANTH T Primary Care Unavailable SOSA, CARL Referring Unavailable DEFRANCE, SUMANTH T Primary Care Unavailable MAYCO NOLEN Referring Unavailable DEFRANCE, SUMANTH T Primary Care Unavailable MAYCO NOLEN Admitting Unavailable MAYCO NOLEN Attending Unavailable DEFRANCE, SUMANTH T Primary Care Unavailable MARIA M VÁSQUEZ Attending Unavailable DEFRANCE, SUMANTH T Primary Care Unavailable MAYCO NOLEN Attending Unavailable MAYCO NOLEN Referring Unavailable DEFRANCE, SUMANTH T Primary Care Unavailable DEFRANCE, SUMANTH T Primary Care Unavailable DEFRANCE, SUMANTH T Referring Unavailable DEFRANCE, SUMANTH T Primary Care Unavailable DEFRANCE, SUMANTH T Primary Care Unavailable MAEVE COTA Attending Unavailable MAEVE COTA Referring Unavailable DEFRANCE, SUMANTH T Primary Care Unavailable SOSA, CARL Referring Unavailable DEFRANCE, SUMANTH T Primary Care Unavailable SOSA, CARL Referring Unavailable DEFRANCE, SUMANTH T Primary Care Unavailable SOSA, CARL Referring Unavailable DEFRANCE, SUMANTH T Primary Care Unavailable Medications Current Medications Medication Drug Class(es) Dates Sig (Normalized) Sig (Original) acetaminophen 325 mg oral tablet (4 sources) Start: 12-27-2023 take 2 tablets by mouth every four hours as needed for pain and fever acetaminophen (TYLENOL) 325 mg tablet Take 2 tablets (650 mg total) by mouth every 4 (four) hours as needed for pain or fever. 0 12/27/2023 Active Start: 12-25-2023 End: 12-27-2023 take 1 tablet by mouth every four hours as needed for pain 650 mg, oral, Every 4 hours PRN, mild pain - pain scale 1-3, fever of 38.6, Starting on Sat12/25/23 at 1932, PACU & Post-op, Do not give for fever if patient received acetaminophen containing products within 4 hours. Start: 12-25-2023 End: 12-25-2023 acetaminophen (TYLENOL EXTRA STRENGTH) tablet 1,000 mg B-complex with vitamin C tablet (2 sources) take 2 tablets by mo uth in the morning B-complex with vitamin C tablet Take 2 tablets by mouth in the morning. 0 Active take 2 tablets by mouth in the m orning B-complex with vitamin C tablet Take 2 tablets by mouth in the morning. 0 Calcium (5 sources) Phosphate Binder, Calcium Calcium + D3 Active calcium carbonate 1250 mg / cholecalciferol 200 unt oral tablet (2 sources) Vitamin D take 1 tablet by mouth once in the morning calcium carbonate-vitamin D3 (OSCAL 500 + D) 500 mg(1,250mg) -200 units per tablet Take 1 tablet by mouth in the morning and 1 tablet in the evening. Take with meals. 0 Active Centrum Silver (5 sources) Centrum Silver A ctive Chondroitin Sulfates / Glucosamine (5 sources) Osteo Bi-Flex On e Per Day Active Elderberry preparation (5 sources) Elderberry 500 M G as directed Orally Active methocarbamol 500 mg oral tablet (3 sources) Muscle Relaxant Start: 12-26-19 End: 01-10-20 take 1 tablet by mouth three times daily as needed for muscle spasms methocarbamoL (ROBAXIN) 500 mg tablet Take 1 tablet (500 mg total) by mouth 3 (three) times a day as needed for muscle spasms for up to 14 days. 42 tablet 0 12/27/2023 01/10/2024 Active mv-min/folic/K1/lycopen/ lutein (CENTRUM SILVER MEN ORAL) (2 sources) take 1 tablet by mouth once daily mv-min/folic/K1/lycop en/lutein (CENTRUM SILVER MEN ORAL) Take 1 tablet by mouth once daily. 0 Active take 1 tablet by mk th once daily mv-min/folic/K1/lycopen/lutein (CENTRUM SILVER MEN ORAL) Take 1 tablet by mouth once daily. 0 naloxone hydrochloride 40 mg/ml nasal spray (2 sources) Opioid Antagonist Start: 12-27-2023 naloxone (NARCAN) 4 mg/actuation spray,non-aerosol nasal spray Administer 1 spray (4 mg total) into alternating nostrils as needed for opioid reversal. 1 each 0 12/27/2023 Active oxyCODONE hydrochloride 5 mg oral tablet (4 sources) Opioid Agonist Start: 12-27-2023 End: 01-03-2024 take 1 tablet by mouth every four hours as needed for pain oxyCODONE (ROXICODONE) 5 mg immediate release tablet Indications: Radiculopathy, lumbar region Take 1 tablet (5 mg total) by mouth every 4 (four) hours as needed for pain for up to 7 days. Max Daily Amount: 30 mg 42 tablet 0 12/27/2023 01/03/2024 Active Start: 12-27-2023 End: 12-27-2023 oxyCODONE (ROXICODONE) 5 mg immediate release tablet Indications: Radiculopathy, lumbar region Take 1-2 tablets (5-10 mg total) by mouth every 6 (six) hours as needed for pain for up to 7 days. Max Daily Amount: 40 mg 56 tablet 0 12/27/2023 12/27/2023 Discontinued Start: 12-25-2023 End: 12-27-2023 take 1 tablet by mouth every three hours as needed for pain oxyCODONE (ROXICODONE) immediate release tablet 5 mg predniSONE 10 mg oral tablet (1 source) [...] Complex (5 sources) Super B Complex Active Completed/Discontinued Medications Medication Drug Class(es) Dates Sig (Normalized) Sig (Original) acetaminophen 325 mg / oxyCODONE hydrochloride 5 mg oral tablet (15 sources) Opioid Agonist End: 12-27-2023 take 3 tablets by mouth three times daily oxyCODONE-acetamino phen (PERCOCET) 5-325 mg per tablet Take 3 tablets by mouth 3 (three) times a day. 0 12/27/2023 Discontinued (Stop Taking at Discharge) take 1 tablet by mk every four hours as needed for pain oxyCODONE-acetaminophen (PERCOCET) 5-325 mg per tablet Take 1 tablet by mouth every 4 (four) hours as needed for pain. 0 Active Percocet Active bisacodyl 10 mg rectal suppository (1 source) Stimulant Laxative Start: 12-27-2023 End: 12-27-2023 10 mg, rectal, As needed, constipation, if no BM within 6 hours of administering Milk of Magnesia, Starting on Sat12/27/23 at 0000, PACU & Post-op, Start Post-Op Day 2 Look-alike/sound-alike medication - verify indication for use. calcium chloride 0.0014 meq/ml / potassium chloride 0.004 meq/ml / sodium chloride 0.103 meq/ml / sodium lactate 0.028 meq/ml injectable solution (2 sources) Start: 12-27-2023 End: 12-27-2023 lactated ringers bolus Start: 12-25-2023 End: 12-25-2023 lactated ringers infusion ceFAZolin (ANCEF) 2,000 mg in sodium chloride 0.9 % 50 mL IVPB-MBP (1 source) Start: 12-25-2023 End: 12-26-2023 take 2000 mg intravenously every eight hours 2,000 mg, intravenous, at 100 mL/hr, Administer over 30 Minutes, Every 8 hours, First dose on Sat12/25/23 at 1945, For 2 doses, PACU & Post-op, Pharmacy to adjust per renal function; Start 8 hours after pre-op dose for total of 3 doses including pre-op dose. Infuse all doses within 24 hours of initial dose. For patient less than 120 kg. ADD-VANTAGE/MBP- Discard 24 hours after activating; dissolve drug prior to administration, Indication: Surgical prophylaxis dexamethasone 0.1 mg/ml oral solution (2 sources) Corticosteroid End: 11-05-2023 dexAMETHasone (DECADRON) 0.5 mg/5 mL elixir Take by mouth daily. 0 11/05/2023 Discontinued diclofenac sodium 75 mg delayed release oral tablet (16 sources) Nonsteroidal Anti-inflammatory Drug Start: 01-29-2024 take 75 mg by mouth twice daily Diclofenac Sodium Active 75 MG PO Twice daily January 29, 2024 12:00am End: 12-27-2023 take 1 tablet by mouth in the morning, then take 1 tablet by mouth at bedtime diclofenac (VOLTAREN) 75 mg EC tablet Indications: osteoarthritis Take 1 tablet (75 mg total) by mouth in the morning and 1 tablet (75 mg total) before bedtime. Indications: joint damage causing pain and loss of function. 0 12/27/2023 Discontinued (Stop Taking at Discharge) Diclofenac Activ e docusate sodium 50 mg / sennosides, assisted 8.6 mg oral tablet (1 source) Start: 12-26-2023 End: 12-27-2023 take 1 tablet by mouth twice daily for diarrhea, then take 1 tablet by mouth once daily for diarrhea 1 tablet, oral, 2 times daily, First dose on Tanya 12/26/23 at 0900, PACU & Post-op, Start Post-Op Day 1: Hold for diarrhea 0.4 ml enoxaparin sodium 100 mg/ml prefilled syringe (1 source) Low Molecular Weight Heparin Start: 12-26-2023 End: 12-27-2023 40 mg, subcutaneous, Daily, First dose on Tanya 12/26/23 at 0600, PACU & Post-op, When Creatinine Clearance 30 mL/min or greater Look-alike/sound -alike medication - verify indication for use. 1 ml fentaNYL 0.05 mg/ml injection (1 source) Opioid Agonist Start: 12-25-2023 End: 12-25-2023 fentaNYL (SUBLIMAZE) injection 50 mcg fentaNYL (SUBLIMAZE) injection 12.5 mcg (1 source) Start: 12-25-2023 End: 12-27-2023 take 12.5 ug intravenously every hour as needed fentaNYL (SUBLIMAZE) injection 12.5 mcg gabapentin 600 mg oral tablet (10 sources) Anti-epileptic Agent Start: 11-07-2023 take 1 capsule by mouth twice daily gabapentin (NEURONTIN) 300 mg capsule TAKE 1 CAPSULE BY MOUTH TWICE A DAY 0 11/07/2023 Active Start: 11-07-2023 End: 12-27-2023 take 600 mg by mouth twice daily 600 mg, oral, 2 times daily, First dose on Sat12/25/23 at 2100, PACU & Post-op, Look-alike/sound-alike medication - verify indication for use. glucagon (rdna) 1 mg injection (1 source) Antihypoglycemic Agent Start: 12-25-2023 End: 12-27-2023 1 mg, intramuscular, As needed, low blood sugar, blood glucose less than 70 mg/dL and unconscious or NPO without IV access., Starting on Sat12/25/23 at 1932, PACU & Post-op, If conscious and not NPO, immediately follow with meal tray or high protein (7Grams) snack if tray not available. If NPO, initiate IV 5% Dextrose/Water at 100 mL/hr and contact prescriber for additional orders. If blood glucose is not greater than 70 mg/dL after initial treatment, repeat treatment. glucosamine/cho ndr piña A sod (OSTEO BI-FLEX ORAL) (1 source) End: 12-27-2023 take 1 capsule by mouth in the morning glucosamine/chondr piña A sod (OSTEO BI-FLEX ORAL) Take 1 capsule by mouth in the morning. 0 12/27/2023 Discontinued (Stop Taking at Discharge) 150 ml glucose 50 mg/ml injection (3 sources) Start: 12-25-2023 End: 12-27-2023 15 g, oral, As needed, low blood sugar, blood glucose less than 70 mg/dL, Starting on Sat12/25/23 at 1932, PACU & Post-op, If patient conscious and taking PO. If blood glucose is not greater than 70 mg/dL after initial treatment, repeat treatment. Start: 12-25-2023 End: 12-27-2023 25 mL, intravenous, As neede d, low blood sugar, blood glucose less than 70 mg/dL and unconscious or NPO with IV access, Starting on Sat12/25/23 at 1932, PACU & Post-op, Push over 1-3 minutes STAT. If conscious and not NPO, immediately follow with meal tray or high protein (7 grams) snack if tray not available. If NPO, initiate 5% dextrose in water at 100 mL/hr and contact prescriber for additional orders. If blood glucose is not greater than 70 mg/dL after initial treatment, repeat treatment. VESICANT (RED) Warning: HYPERTONIC solution. Start: 12-25-2023 End: 12-27-2023 take 70 mg intravenously every hour 100 mL/hr, intravenous, Continuous PRN, blood glucose less than 70 mg/dL, Starting on Sat12/25/23 at 1932, PACU & Post-op, Use immediately following dextrose 50% or glucagon treatment for patients who are unconscious or NPO. Contact prescriber for additional orders. If blood glucose is not greater than 70 mg/dL after initial treatment, repeat treatment. 10 ml lidocaine hydrochloride 10 mg/ml injection (1 source) Antiarrhythmic, Amide Local Anesthetic Start: 12-25-2023 End: 12-25-2023 lidocaine PF (XYLOCAINE) 10 mg/mL (1 %) injection 1 mg magnesium hydroxide 80 mg/ml oral suspension (1 source) Start: 12-27-2023 End: 12-27-2023 30 mL, oral, 2 times daily PRN, if no BM by post-op day 2, Starting on Sat12/27/23 at 0000, PACU & Post-op, Start Post-Op Day 2: DO NOT use in Renal/Dialysis patients Shake well. methylPREDNISolone (7 sources) Corticosteroid Start: 11-14-2023 End: 12-20-2023 methylPREDNISolone (MEDROL, DEMOND,) 4 mg tablet Indications: Lumbar radiculopathy, chronic , Neurogenic claudication follow package directions 21 tablet 0 11/14/2023 12/20/2023 Discontinued Start: 11-14-2023 methylPREDNISo lone (MEDROL, DEMOND,) 4 mg tablet Indications: Lumbar radiculopathy, chronic , Neurogenic claudication follow package directions 21 tablet 0 11/14/2023 Active Start: 10-22-2023 End: 11-05-2023 methylPREDNISolone (MEDROL, DEMOND,) 4 mg tablet follow package directions 21 tablet 0 10/22/2023 11/05/2023 Discontinued Start: 10-22-2023 methylPREDNISo lone (MEDROL, DEMOND,) 4 mg tablet follow package directions 21 tablet 0 10/22/2023 Active 2 ml midazolam 1 mg/ml cartridge (1 source) Benzodiazepine Start: 12-25-2023 End: 12-25-2023 midazolam (PF) (VERSED) injection 2 mg 2 ml ondansetron 2 mg/ml injection (1 source) Serotonin-3 Receptor Antagonist Start: 12-25-2023 End: 12-27-2023 take 4 mg intravenously every six hours as needed for nausea and vomiting 4 mg, intravenous, Every 6 hours PRN, nausea, vomiting, Starting on Sat12/25/23 at 1932, PACU & Post-op, Administer over 2-5 minutes. polyethylene glycol [id number] [id number] mg powder for oral solution (1 source) Osmotic Laxative Start: 12-25-2023 End: 12-27-2023 17 g, oral, Daily, First dose on Sat12/25/23 at 1945, PACU & Post-op, Look-alike/soun d-alike medication - verify indication for use. Dissolve 1 packet (17 gm) in 8 ounces of water, juice, soda, coffee or tea. 125 ml sodium chloride 9 mg/ml prefilled syringe (3 sources) Start: 12-25-2023 End: 12-27-2023 take 1 dose by mouth once 3 mL, intravenous, Every 12 hours scheduled, First dose on Sat12/25/23 at 2100, PACU & Post-op, Once tolerating oral intake Start: 12-25-2023 End: 12-25-2023 sodium chloride 0.9 % flush 3 mL tiZANidine 4 mg oral tablet (17 sources) Central alpha-2 Adrenergic Agonist Start: 12-25-2023 End: 12-26-2023 take 8 mg by mouth three times daily for muscle spasms 8 mg, oral, 3 times daily, First dose on Sat12/25/23 at 2000, PACU & Post-op, Look-alike/sound-alike medication - verify indication for use., Indications: muscle spasm Start: 12-25-2023 End: 12-25-2023 take 1 tablet by mouth every six hours as needed tiZANidine (ZANAFLEX) tablet 4 mg Start: 04-30-2023 End: 12-27-2023 tiZANidine (ZANAFLEX) 4 mg t ablet Indications: muscle spasm Take 2 tablets (8 mg total) by mouth in the morning and 2 tablets (8 mg total) at noon and 2 tablets (8 mg total) in the evening. Indications: muscle spasm. 0 04/30/2023 12/27/2023 Discontinued (Stop Taking at Discharge) Start: 04-30-2023 take 1 tablet by mk th every eight hours as needed tiZANidine (ZANAFLEX) 4 mg tablet Take 1 tablet (4 mg total) by mouth every 8 (eight) hours as needed for muscle spasms. 0 04/30/2023 Active take 1 tablet by mk th every eight hours tiZANidine HCl 4 MG 1 tablet as needed Orally Three times a day Active triamcinolone acetonide 40 mg/ml injectable suspension (11 sources) Corticosteroid Start: 07-23-2023 Kenalog-40 Aug, 40 mg Start: 05-21-2023 Kenalog-40 Oct, 20 mg vit C/zinc citrate/elderberr y (ELDERBERRY IMMUNE HEALTH ORAL) (1 source) End: 12-27-2023 vit C/zinc citrate/elderberr y (ELDERBERRY IMMUNE HEALTH ORAL) Take 1 Gum by mouth in the morning. 0 12/27/2023 Discontinued (Stop Taking at Discharge) Problems Active Problems Problem Classification Problem Date Documented Date Episodic/Chronic Blindness and vision defects (5 sources) Visual impairment; Translations: [Unspecified visual loss] Onset: 12-20-2023 12-20-2023 Chronic Cancer of prostate (20 sources) Adenocarcinoma of prostate; Translations: [Malignant neoplasm of prostate] Onset: 11-20-2016 04-16-2023 Chronic Cancer of prostate (5 sources) History of malignant neoplasm of prostate; Translations: [Personal history of malignant neoplasm of prostate] Onset: 10-04-2023 10-04-2023 Episodic Diverticulosis and diverticulitis (1 source) Diverticulitis of intestine, part unspecified, without perforation or abscess without bleeding; Translations: [Diverticulitis of intestine, part unspecified, without perforation or abscess without bleeding] Onset: 10-22-2023 Chronic Genitourinary symptoms and ill-defined conditions (2 sources) Abnormal urine; Translations: [Unspecified abnormal findings in urine] Onset: 12-20-2023 12-20-2023 Episodic Osteoarthritis (20 sources) Bilateral primary osteoarthritis of hip; Translations: [Unilateral primary osteoarthritis of first carpometacarpal joint, left hand] Onset: 04-16-2018 Chronic Other aftercare (1 source) Monitoring status; Translations: [Encounter for therapeutic drug level monitoring] 12-20-2023 Episodic Other aftercare (1 source) Encounter for therapeutic drug level monitoring; Translations: [Encounter for therapeutic drug level monitoring] Onset: 12-20-2023 Episodic Other aftercare (1 source) 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; Translations: [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] Onset: 12-20-2023 Episodic Other connective tissue disease (1 source) Arthrodesis status; Translations: [ARTHRODESIS STATUS] Onset: 04-16-2018 Episodic Other connective tissue disease (1 source) Other muscle spasm; Translations: [OTHER MUSCLE SPASM] Onset: 04-03-2023 Episodic Other connective tissue disease (3 sources) Pain in left hand; Translations: [Pain in limb] Onset: 10-01-2022 Episodic Other connective tissue disease (4 sources) Impingement syndrome of right shoulder Episodic Other connective tissue disease (9 sources) Neurogenic claudication; Translations: [Other symptoms and signs involving the nervous system] Onset: 12-17-2023 11-14-2023 Episodic Other connective tissue disease (1 source) Hand pain; Translations: [Pain in left hand] 01-27-2024 Episodic Other connective tissue disease (2 sources) Pain in right leg; Translations: [Pain in right leg] Onset: 02-12-2024 Episodic Other connective tissue disease (2 sources) Other symptoms and signs involving the musculoskeletal system; Translations: [Other symptoms and signs involving the musculoskeletal system] Onset: 02-12-2024 Episodic Other injuries and conditions due to [...] (4 sources) Pain in right shoulder Episodic Residual codes; unclassified (3 sources) Other specified postprocedural states; Translations: [Other specified postprocedural states] Onset: 02-12-2024 Episodic Residual codes; unclassified (1 source) Unspecified symptoms and signs involving general sensations and perceptions; Translations: [Unspecified symptoms and signs involving general sensations and perceptions] Onset: 02-12-2024 Episodic Sprains and strains (4 sources) Other sprain of right shoulder joint, initial encounter Episodic Superficial injury; contusion (4 sources) Contusion of right shoulder, initial encounter Episodic Syncope (1 source) Syncope and collapse; Translations: [Syncope and collapse] Onset: 12-25-2023 Episodic Unclassified (2 sources) Unknown / UNK(Unknown) [...] [Pain in left hand] Onset: 05-21-2023 Unclassified (2 sources) Low back pain, unspecified; Translations: [Low back pain, unspecified] Onset: 10-22-2023 Unclassified (1 source) Post-op Onset: 02-12-2024 Unclassified (1 source) New Patient Onset: 11-14-2023 Past or Other Problems Problem Classification Problem Date Documented Date Episodic/Chronic Intestinal obstruction without hernia (10 sources) Small bowel obstruction; Translations: [Unspecified intestinal obstruction, unspecified as to partial versus complete obstruction] Onset: 10-04-2023 Resolved: 12-20-2023 10-04-2023 Episodic Mood disorders (10 sources) Mood disorders Onset: 07-29-2023 07-29-2023 Other connective tissue disease (3 sources) Other symptoms and signs involving the nervous system; Translations: [Other symptoms and signs involving the nervous system] Onset: 11-14-2023 Episodic Other screening for suspected conditions (not mental disorders or infectious disease) (10 sources) Raised prostate specific antigen; Translations: [Elevated prostate specific antigen [PSA]] Onset: 10-09-2016 Resolved: 12-20-2023 01-21-2023 Episodic Other skin disorders (10 sources) Eruption; Translations: [Rash and other nonspecific skin eruption] Onset: 03-12-2017 Resolved: 12-20-2023 05-19-2020 Episodic Residual codes; unclassified (10 sources) Localized edema; Translations: [Localized edema] Onset: 02-08-2020 02-08-2020 Episodic Spondylosis; intervertebral disc disorders; other back problems (20 sources) Sacroiliitis, not elsewhere classified; Translations: [Other intervertebral disc degeneration, lumbar region] Onset: 04-20-1996 Resolved: 10-04-2023 Chronic Spondylosis; intervertebral disc disorders; other back problems (20 sources) Sacrococcygeal disorders, not elsewhere classified; Translations: [Intervertebral disc disorders with radiculopathy, lumbar region] Onset: 07-17-2022 Episodic Unclassified (1 source) LOW BACK PAIN, UNSPECIFIED; Translations: [LOW BACK PAIN, UNSPECIFIED] Onset: 11-22-2022 Urinary tract infections (10 sources) Urinary tract infectious disease; Translations: [Urinary tract infection, site not specified] Onset: 05-08-2017 Resolved: 10-04-2023 10-04-2023 Episodic Varicose veins of lower extremity (10 sources) Pain co-occurrent and due to varicose veins of right leg; Translations: [Varicose veins of right lower extremity with pain] Onset: 02-08-2020 02-08-2020 Episodic Results Test Name Value Interpretation Reference Range Facility XR SPINE LUMB BENDING ONLY 2 -3 VWSon 02-13-2024 XR SPINE LUMB BENDING ONLY 2-3 VWS XR SPINE LUMB BENDING ONLY 2-3 VWS History: Lumbar laminectomy Exam/Technique: Lateral flexion and extension views of the lumbar spine were obtained. Comparison: 11/14/2023 Findings: Anterolisthesis of L4-5 is seen but appears stable in both flexion and extension views. There is multilevel disc space narrowing, most severe at L5-S1. The vertebral heights are well-maintained. There is no evidence for an acute osseous abnormality. IMPRESSION: Anterolisthesis at L4-5 that appears stable in both flexion and extension views with stable multilevel disc space narrowing. Finalized by Sumanth Menjivar MD on 02/13/2024 2:22 PM Normal [facility] BASIC METABOLIC PANLon 12-27 Anion gap [Moles/Vol] 8 mmol/L Normal 5-15 [facility] Comment on above: Performed By: #### 1 9123-9, CBC, 98971-7, BMP ####[facility] ([id number])[address], [place] [address] Calcium [Mass/Vol] 9.2 mg/dL Normal 8.5-10.5 [facility] Comment on above: Performed By: #### 1 9123-9, CBC, 58560-5, BMP ####[facility] ([id number])[address], [place] [address] Chloride [Moles/Vol] 103 mmol/L Normal 98-109 [facility] Comment on above: Performed By: #### 1 9123-9, CBC, 41811-5, BMP ####[facility] ([id number])[address], [place] [address] CO2 [Moles/Vol] 28 mmol/L Normal 22-32 [facility] Comment on above: Performed By: #### 1 9123-9, CBC, 88693-5, BMP ####[facility] ([id number])[address], [place] [address] Creatinine [Mass/Vol] 0.77 mg/dL Normal 0.60-1.30 [facility] Comment on above: Result Comment: METH OD TRACEABLE TO IDMS STANDARD Performed By: #### 1 9123-9, CBC, 44519-5, BMP ####[facility] ([id number])[address], [address] [address] eGFR (CKD-EPI) NON-RACE DEPENDENT >90 Normal >59 [facility] Comment on above: Result Comment: Reported eGFR is based on the CKD-EPI 2020 equation that does not use a race coefficient. Performed By: #### 1 9123-9, CBC, 23104-9, BMP ####[facility] ([id number])[address], [address], [place] [address] Glucose [Mass/Vol] 110 mg/dL High 65-99 [facility] Comment on above: Performed By: #### 1 9123-9, CBC, 59269-7, BMP ####[facility] ([id number])[address], [address], [place] [address] Potassium [Moles/Vol] 4.3 mmol/L Normal 3.5-5.0 [facility] Comment on above: Performed By: #### 1 9123-9, CBC, 85140-2, BMP ####[facility] ([id number])[address], [address], [place] [address] Sodium [Moles/Vol] 139 mmol/L Normal 134-146 [facility] Comment on above: Performed By: #### 1 9123-9, CBC, 08595-5, BMP ####[facility] ([id number])[address], [address] [place] [address] Urea nitrogen [Mass/Vol] 14 mg/dL Normal 5-27 [facility] Comment on above: Performed By: #### 1 9123-9, CBC, 05679-6, BMP ####[facility] ([id number])[address], [address], [place] [address] Basic Metabolic Panelon 12-06 Anion gap [Moles/Vol] 8 mmol/L 5 - 15 mmol/L [facility] Calcium [Mass/Vol] 9.2 mg/dL 8.5 - 10. 5 mg/dL [facility] Chloride [Moles/Vol] 103 mmol/L 98 - 109 mmol/L [facility] CO2 [Moles/Vol] 28 mmol/L 22 - 32 mmol/L [facility] Creatinine [Mass/Vol] 0.77 mg/dL 0.60 - 1.30 mg/dL [facility] Comment on above: METHOD TRACEABLE TO [facility] STANDARD eGFR (CKD-EPI)non-race dependent - PINF [facility] Comment on above: Reported eGFR is based on the CKD-EPI 2020 equation that does not use a race coefficient. Glucose [Mass/Vol] 110 mg/dL High 65 - 99 mg/dL [facility] Interpretation and review of laboratory results Abnormal [facility] Potassium [Moles/Vol] 4.3 mmol/L 3.5 - 5.0 mmol/L [facility] Sodium [Moles/Vol] 139 mmol/L 134 - 146 mmol/L [facility] Urea nitrogen [Mass/Vol] 14 mg/dL 5 - 27 mg/dL [facility] CBC without diffon Erythrocyte distribution width (RBC) [Ratio] 13.3 % 11.5 - 15.0 % [facility] Hematocrit (Bld) [Volume fraction] 36.3 % Low 39 - 49 % [facility] Hemoglobin (Bld) [Mass/Vol] 12.4 g/dL Low 13.0 - 17.0 g/dL [facility] Interpretation and review of laboratory results Abnormal [facility] MCH (RBC) [Entitic mass] 30.2 pg 27 - 34 pg [facility] MCHC (RBC) [Mass/Vol] 34.2 g/dL 32 - 36 g/dL [facility] MCV (RBC) [Entitic vol] 88 fL 80 - 100 fL [facility] Platelet mean volume (Bld) [Entitic vol] 7.2 fL 7 - 12 fL [facility] Platelets (Bld) [#/Vol] 243 10*3/uL [facility] RBC (Bld) [#/Vol] 4.12 10*6/uL [facility] WBC corrected for nucl RBC Auto (Bld) [#/Vol] 11.6 High [facility] COMPLETE BLOOD COUNTon 12-27 Erythrocyte distribution width (RBC) [Ratio] 13.3 % Normal 11.5-15.0 [facility] Comment on above: Performed By: #### 1 9123-9, CBC, 67435-6, BMP ####[facility] ([id number])[address], [address] [place] [address] Hematocrit (Bld) [Volume fraction] 36.3 % Low 39-49 [facility] Comment on above: Performed By: #### 1 9123-9, CBC, 15838-9, BMP ####[facility] ([id number])[address], [address] [place] [address] Hemoglobin (Bld) [Mass/Vol] 12.4 g/dL Low 13.0-17.0 [facility] Comment on above: Performed By: #### 1 9123-9, CBC, 54382-6, BMP ####[facility] ([id number])[address], [address] [place] [address] MCH (RBC) [Entitic mass] 30.2 pg Normal 27-34 [facility] Comment on above: Performed By: #### 1 9123-9, CBC, 75546-0, BMP ####[facility] ([id number])[address], [address] [place] [address] MCHC (RBC) [Mass/Vol] 34.2 g/dL Normal 32-36 [facility] Comment on above: Performed By: #### 1 9123-9, CBC, 81232-9, BMP ####[facility] ([id number])[address], [address] [place] [address] MCV (RBC) [Entitic vol] 88 fL Normal 80-100 [facility] Comment on above: Performed By: #### 1 9123-9, CBC, 99727-9, BMP ####[facility] ([id number])[address], [address] [place] [address], [place] [address] Platelet mean volume (Bld) [Entitic vol] 7.2 fL Normal 7-12 [facility] Comment on above: Performed By: #### 1 9123-9, CBC, 75283-1, BMP ####[facility] ([id number])[address], [address] [place] [address] Platelets (Bld) [#/Vol] 243 10*3/uL Normal 150-450 [facility] Comment on above: Performed By: #### 1 9123-9, CBC, 96284-0, BMP ####[facility] ([id number])[address], [address] [place] [address] RBC COUNT 4.12 X10E12/L Normal 4.10-5.70 [facility] Comment on above: Performed By: #### 1 9123-9, CBC, 83225-6, BMP ####[facility] ([id number])[address], [address] [place] [address] WBC (Bld) [#/Vol] 11.6 10*3/uL High 4.0-11.0 [facility] Comment on above: Performed By: #### 1 9123-9, CBC, 42293-7, BMP ####[facility] ([id number])[address], [address] [place] [address] ECG 12 leadon 12-27-2023 TRACEMASTERVUE [facility] Glucose Glucometer (BldC) [M ass/Vol]on 12-27-2023 Glucose [Mass/Vol] 98 mg/dL 65 - 99 mg/dL [facility] Glucose [Mass/Vol] 98 mg/dL Normal 65-99 [facility] MAGNESIUMon 12-27-2023 Magnesium [Mass/Vol] 1.9 mg/dL Normal 1.8-2.6 [facility] Comment on above: Performed By: #### 1 9123-9, CBC, 02459-7, BMP ####[facility] ([id number])[address], [address], [place] [address] Magnesiumon 12-27-2023 Magnesium [Mass/Vol] 1.9 mg/dL 1.8 - 2.6 mg/dL [facility] No Panel Informationon 12-27 [facility] TROPONIN Ion 12-27-2023 Troponin I.cardiac [Mass/Vol] ng/mL Normal 0.00-0.04 [facility] Comment on above: Performed By: #### 1 9123-9, CBC, 91785-5, BMP ####[facility] ([id number])[address], [address], [place] [address] Troponin Ion 12-27-2023 Troponin I.cardiac [Mass/Vol] ng/mL 0.00 - 0.04 ng/mL [facility] Troponin I.cardiac [Mass/Vol ]on 12-27-2023 [facility] BASIC METABOLIC PANLon 12-26 Anion gap [Moles/Vol] 9 mmol/L Normal 5-15 [facility] Comment on above: Performed By: #### C BC, BMP #### [facility] ([id number]) [address], [address] [place] [address] Calcium [Mass/Vol] 9.4 mg/dL Normal 8.5-10.5 [facility] Comment on above: Performed By: #### C BC, BMP #### [facility] ([id number]) [address], [address] [place] [address] Chloride [Moles/Vol] 106 mmol/L Normal 98-109 [facility] Comment on above: Performed By: #### C BC, BMP #### [facility] ([id number]) [address], [address] [place] [address] CO2 [Moles/Vol] 25 mmol/L Normal 22-32 [facility] Comment on above: Performed By: #### C ELISA, BMP #### [facility] ([id number]) [address] [address] Creatinine [Mass/Vol] 0.63 mg/dL Normal 0.60-1.30 [facility] Comment on above: Result Comment: METH OD TRACEABLE TO IDMS STANDARD Performed By: #### C ELISA, BMP #### [facility] ([id number]) [address] [address] eGFR (CKD-EPI) NON-RACE DEPENDENT >90 Normal >59 [facility] Comment on above: Result Comment: Reported eGFR is based on the CKD-EPI 2020 equation that does not use a race coefficient. Performed By: #### C ELISA, BMP #### [facility] ([id number]) [address] [address] Glucose [Mass/Vol] 140 mg/dL High 65-99 [facility] Comment on above: Performed By: #### Sujey PÉREZ, BMP #### [facility] ([id number]) [address] [address] Potassium [Moles/Vol] 4.6 mmol/L Normal 3.5-5.0 [facility] Comment on above: Performed By: #### Sujey PÉREZ, BMP #### [facility] ([id number]) [address] [address] Sodium [Moles/Vol] 140 mmol/L Normal 134-146 [facility] Comment on above: Performed By: #### C ELISA, BMP #### [facility] ([id number]) [address] [address] Urea nitrogen [Mass/Vol] 17 mg/dL Normal 5-27 [facility] Comment on above: Performed By: #### C ELISA, BMP #### [facility] ([id number]) [address] [facility], [address] [place] [address] Basic Metabolic Panelon 12-06 Anion gap [Moles/Vol] 9 mmol/L 5 - 15 mmol/L [facility] Calcium [Mass/Vol] 9.4 mg/dL 8.5 - 10. 5 mg/dL [facility] Chloride [Moles/Vol] 106 mmol/L 98 - 109 mmol/L [facility] CO2 [Moles/Vol] 25 mmol/L 22 - 32 mmol/L [facility] Creatinine [Mass/Vol] 0.63 mg/dL 0.60 - 1.30 mg/dL [facility] Comment on above: METHOD TRACEABLE TO [facility] STANDARD eGFR (CKD-EPI)non-race dependent - PINF [facility] Comment on above: Reported eGFR is based on the CKD-EPI 2020 equation that does not use a race coefficient. Glucose [Mass/Vol] 140 mg/dL High 65 - 99 mg/dL [facility] Interpretation and review of laboratory results Abnormal [facility] Potassium [Moles/Vol] 4.6 mmol/L 3.5 - 5.0 mmol/L [facility] Sodium [Moles/Vol] 140 mmol/L 134 - 146 mmol/L [facility] Urea nitrogen [Mass/Vol] 17 mg/dL 5 - 27 mg/dL [facility] CBC without diffon Erythrocyte distribution width (RBC) [Ratio] 13.5 % 11.5 - 15.0 % [facility] Hematocrit (Bld) [Volume fraction] 37.5 % Low 39 - 49 % [facility] Hemoglobin (Bld) [Mass/Vol] 12.7 g/dL Low 13.0 - 17.0 g/dL [facility] Interpretation and review of laboratory results Abnormal [facility] MCH (RBC) [Entitic mass] 30.0 pg 27 - 34 pg [facility] MCHC (RBC) [Mass/Vol] 33.9 g/dL 32 - 36 g/dL [facility] MCV (RBC) [Entitic vol] 89 fL 80 - 100 fL [facility] Platelet mean volume (Bld) [Entitic vol] 7.2 fL 7 - [address] [facility] Platelets (Bld) [#/Vol] 264 10*3/uL [facility] RBC (Bld) [#/Vol] 4.23 10*6/uL [facility] WBC corrected for nucl RBC Auto (Bld) [#/Vol] 12.[address] [facility] COMPLETE BLOOD COUNTon 12-26 Erythrocyte distribution width (RBC) [Ratio] 13.5 % Normal 11.5-15.0 [facility] Comment on above: Performed By: #### Sujey PÉREZ, BMP #### [facility] ([id number]) [address], [address] [address] Hematocrit (Bld) [Volume fraction] 37.5 % Low 39-49 [facility] Comment on above: Performed By: #### Sujey PÉREZ, BMP #### [facility] ([id number]) [address], [address] [place] [address] Hemoglobin (Bld) [Mass/Vol] 12.7 g/dL Low 13.0-17.0 [facility] Comment on above: Performed By: #### Sujey PÉREZ, BMP #### [facility] ([id number]) [address], [address] [place] [address] MCH (RBC) [Entitic mass] 30.0 pg Normal 27-34 [facility] Comment on above: Performed By: #### Sujey PÉREZ, BMP #### [facility] ([id number]) [address], [address] [place] [address] MCHC (RBC) [Mass/Vol] 33.9 g/dL Normal 32-36 [facility] Comment on above: Performed By: #### Sujey PÉREZ, BMP #### [facility] ([id number]) [address], [address] [place] [address] MCV (RBC) [Entitic vol] 89 fL Normal 80-100 [facility] Comment on above: Performed By: #### Sujey PÉREZ, BMP #### [facility] ([id number]) [address], [address] [place] [address] Platelet mean volume (Bld) [Entitic vol] 7.2 fL Normal 7-12 [facility] Comment on above: Performed By: #### Sujey PÉREZ, BMP #### [facility] ([id number]) [address], [address] [place] [address] Platelets (Bld) [#/Vol] 264 10*3/uL Normal 150-450 [facility] Comment on above: Performed By: #### Sujey PÉREZ, BMP #### [facility] ([id number]) [address], [address] [place] [address] RBC COUNT 4.23 X10E12/L Normal 4.10-5.70 [facility] Comment on above: Performed By: #### Sujey PÉREZ, BMP #### [facility] ([id number]) [address], [address] [place] [address] WBC (Bld) [#/Vol] 12.6 10*3/uL High 4.0-11.0 [facility] Comment on above: Performed By: #### Sujey PÉREZ, BMP #### [facility] ([id number]) [address], [address] [place] [address] ABO Rh Repeaton 12-25-2023 ABO AB [facility] Rh Nom (Bld) Positive [facility] FL FLUORO GUIDANCE SPINAL PU NCTURE OPERATIVEon 12-25-2023 FL FLUORO GUIDANCE SPINAL PUNCTURE OPERATIVE FL FLUORO GUIDANCE SPINAL PUNCTURE OPERATIVE FL FLUORO GUIDANCE SPINAL PUNCTURE OPERATIVE INDICATION: Back pain FINDINGS: Intraoperative fluoroscopy for L2-L5 laminectomy. No radiologist present during the examination. Reference air kerma: 1.38 mGy Fluoroscopic time: 5 seconds Number of fluoroscopic images: 3 IMPRESSION: Intraoperative fluoroscopy provided as above. See operative report for additional details. Finalized by José Miguel Avelar on 12/25/2023 4:51 PM Normal [facility] RF Guidance for injection of Spine facet jointon 12-25-2023 FL FLUORO GUIDANCE SPINAL PUNCTURE OPERATIVE INDICATION: Back pain FINDINGS: Intraoperative fluoroscopy for L2-L5 laminectomy. No radiologist present during the examination. Reference air kerma: 1.38 mGy Fluoroscopic time: 5 seconds Number of fluoroscopic images: 3 IMPRESSION: Intraoperative fluoroscopy provided as above. See operative report for additional details. Finalized by José Miguel Avelar on 12/25/2023 4:51 PM José Miguel Massey MD - 12/25/2023 FL FLUORO GUIDANCE SPINAL PUNCTURE OPERATIVE INDICATION: Back pain FINDINGS: Intraoperative fluoroscopy for L2-L5 laminectomy. No radiologist present during the examination. Reference air kerma: 1.38 mGy Fluoroscopic time: 5 seconds Number of fluoroscopic images: 3 IMPRESSION: Intraoperative fluoroscopy provided as above. See operative report for additional details. Finalized by José Miguel Avelar on 12/25/2023 4:51 PM [facility] Radiology Study observation (narrative) [facility] RF Guidance for injection of Spine facet jointOrdered By: José Miguel Avelar on 12-25-2023 [facility] Work Phone: Bacteria identified Cx Nom ( U)on 12-21-2023 Service comment (Unsp spec) [Interp] <10,000 ORGANISMS/ML NORMAL URO GENITAL CORINA [facility] ABO Rh Repeaton 12-20-2023 ABO AB [facility] Rh Nom (Bld) Positive [facility] APTTon 12-20-2023 aPTT Coag (PPP) [Time] 31 s [facility] BASIC METABOLIC PANLon 12-20 Anion gap [Moles/Vol] 13 mmol/L Normal 5-15 [facility] Comment on above: Performed By: #### C BCA, 70414-0, BMP, PINR #### [facility] ([id number]) [address], [address] [place] [address] Calcium [Mass/Vol] 10.1 mg/dL Normal 8.5-10.5 [facility] Comment on above: Performed By: #### C BCA, 52855-0, BMP, PINR #### [facility] ([id number]) [address], [facility] [address] [place] [address] Chloride [Moles/Vol] 103 mmol/L Normal 98-109 [facility] Comment on above: Performed By: #### C BCA, 70316-9, BMP, PINR #### [facility] ([id number]) [address] [address] CO2 [Moles/Vol] 25 mmol/L Normal 22-32 [facility] Comment on above: Performed By: #### C BCA, 60719-3, BMP, PINR #### [facility] ([id number]) [address] [address] Creatinine [Mass/Vol] 0.76 mg/dL Normal 0.60-1.30 [facility] Comment on above: Result Comment: METH OD TRACEABLE TO IDMS STANDARD Performed By: #### C BCA, 73461-5, BMP, PINR #### [facility] ([id number]) [address] [address] [place] [address] eGFR (CKD-EPI) NON-RACE DEPENDENT >90 Normal >59 [facility] Comment on above: Result Comment: Reported eGFR is based on the CKD-EPI 2020 equation that does not use a race coefficient. Performed By: #### C BCA, 09303-1, BMP, PINR #### [facility] ([id number]) [address], [address] [place] [address] Glucose [Mass/Vol] 85 mg/dL Normal 65-99 [facility] Comment on above: Performed By: #### C BCA, 34655-8, BMP, PINR #### [facility] ([id number]) [address], [address] [place] [address] Potassium [Moles/Vol] 5.0 mmol/L Normal 3.5-5.0 [facility] Comment on above: Result Comment: SPEC IMEN HEMOLYZED, RESULTS INCREASED MODERATELY HEMOLYZED Performed By: #### C BCA, 10591-5, BMP, PINR #### [facility] ([id number]) [address], [address] [place] [address] Sodium [Moles/Vol] 141 mmol/L Normal 134-146 [facility] Comment on above: Performed By: #### C BCA, 86061-4, BMP, PINR #### [facility] ([id number]) [address], [address] [place] [address] Urea nitrogen [Mass/Vol] 20 mg/dL Normal 5-27 [facility] Comment on above: Performed By: #### C BCA, 68566-2, BMP, PINR #### [facility] ([id number]) [address], [address] [place] [address] Basic Metabolic Panelon 12-05 Anion gap [Moles/Vol] 13 mmol/L 5 - 15 mmol/L [facility] Calcium [Mass/Vol] 10.1 mg/dL 8.5 - 10. 5 mg/dL [facility] Chloride [Moles/Vol] 103 mmol/L 98 - 109 mmol/L [facility] CO2 [Moles/Vol] 25 mmol/L 22 - 32 mmol/L [facility] Creatinine [Mass/Vol] 0.76 mg/dL 0.60 - 1.30 mg/dL [facility] Comment on above: METHOD TRACEABLE TO IDMS STANDARD eGFR (CKD-EPI)non-race dependent - PINF [facility] Comment on above: Reported eGFR is based on the CKD-EPI 2020 equation that does not use a race coefficient. Glucose [Mass/Vol] 85 mg/dL 65 - 99 mg/dL [facility] Potassium [Moles/Vol] 5.0 mmol/L 3.5 - 5.0 mmol/L [facility] Comment on above: SPECIMEN HEMOLYZED, RESULTS INCREASED MODERATELY HEMOLYZED Sodium [Moles/Vol] 141 mmol/L 134 - 146 mmol/L [facility] Urea nitrogen [Mass/Vol] 20 mg/dL 5 - 27 mg/dL [facility] CBC AND AUTO DIFFon 12-20-19 24 ABSOLUTE BASOPHIL 0.1 X10E9/L Normal 0.0-0.2 [facility] Comment on above: Performed By: #### Sujey LOWRY, 38347-6, BMP, PINR #### [facility] ([id number]) [address], [address] [place] [address] ABSOLUTE NEUTROPHIL 4.4 X10E9/L Normal 1.5-6.6 [facility] Comment on above: Performed By: #### Sujey LOWRY, 72326-8, BMP, PINR #### [facility] ([id number]) [address], [address] [place] [address] Basophils/100 WBC (Bld) 0.9 % Normal [facility] Comment on above: Performed By: #### Sujey LOWRY, 76975-3, BMP, PINR #### [facility] ([id number]) [address], [address] [place] [address] Eosinophils (Bld) [#/Vol] 0.2 10*3/uL Normal 0.0-0.4 [facility] Comment on above: Performed By: #### Sujey LOWRY, 83059-3, BMP, PINR #### [facility] ([id number]) [address], [address] [place] [address] Eosinophils/100 WBC (Bld) 2.6 % Normal [facility] Comment on above: Performed By: #### Sujey LOWRY, 59334-7, BMP, PINR #### [facility] ([id number]) [address], [address] [place] [address] Erythrocyte distribution width (RBC) [Ratio] 13.6 % Normal 11.5-15.0 [facility] Comment on above: Performed By: #### C BCA, 03656-7, BMP, PINR #### [facility] ([id number]) [address], [address] [place] [address] Hematocrit (Bld) [Volume fraction] 45.1 % Normal 39-49 [facility] Comment on above: Performed By: #### C BCA, 04991-8, BMP, PINR #### [facility] ([id number]) [address], [facility] [address] [place] [address] Hemoglobin (Bld) [Mass/Vol] 15.5 g/dL Normal 13.0-17.0 [facility] Comment on above: Performed By: #### Sujey BCA, 74747-0, BMP, PINR #### [facility] ([id number]) [address], [facility] [address] [place] [address] Lymphocytes (Bld) [#/Vol] 1.5 10*3/uL Normal 1.0-3.5 [facility] Comment on above: Performed By: #### Sujey BCA, 96198-7, BMP, PINR #### [facility] ([id number]) [address], [facility] [address] [place] [address] Lymphocytes/100 WBC (Bld) 21.7 % Normal [facility] Comment on above: Performed By: #### Sujey BCA, 88762-5, BMP, PINR #### [facility] ([id number]) [address] [address] [place] [address] MCH (RBC) [Entitic mass] 30.2 pg Normal 27-34 [facility] Comment on above: Performed By: #### Sujey BCA, 88822-7, BMP, PINR #### [facility] ([id number]) [address] [place] [address] MCHC (RBC) [Mass/Vol] 34.4 g/dL Normal 32-36 [facility] Comment on above: Performed By: #### C BCA, 89923-0, BMP, PINR #### [facility] ([id number]) [address] [address] [place] [address] MCV (RBC) [Entitic vol] 88 fL Normal 80-100 [facility] Comment on above: Performed By: #### C ALEN, 43900-8, BMP, PINR #### [facility] ([id number]) [address] [address] [place] [address] Monocytes (Bld) [#/Vol] 1.0 10*3/uL High 0-0.9 [facility] Comment on above: Performed By: #### Sujey BCA, 91029-6, BMP, PINR #### [facility] ([id number]) [address] [facility] [address] [place] [address] Monocytes/100 WBC (Bld) 13.6 % Normal [facility] Comment on above: Performed By: #### Sujey BCA, 20254-1, BMP, PINR #### [facility] ([id number]) [address] [address] [place] [address] Neutrophils/100 WBC (Bld) 61.2 % Normal [facility] Comment on above: Performed By: #### C BCA, 19481-2, BMP, PINR #### [facility] ([id number]) [address] [address] [place] [address] Platelet mean volume (Bld) [Entitic vol] 7.8 fL Normal 7-12 [facility] Comment on above: Performed By: #### Sujey BCA, 56273-4, BMP, PINR #### [facility] ([id number]) [address] [place] [address] Platelets (Bld) [#/Vol] 269 10*3/uL Normal 150-450 [facility] Comment on above: Performed By: #### Sujey LOWRY, 59722-7, BMP, PINR #### [facility] ([id number]) [address] [place] [address] RBC COUNT 5.12 X10E12/L Normal 4.10-5.70 [facility] Comment on above: Performed By: #### Sujey LOWRY, 95657-0, BMP, PINR #### [facility] ([id number]) [address], [address] [address] WBC (Bld) [#/Vol] 7.1 10*3/uL Normal 4.0-11.0 [facility] Comment on above: Performed By: #### Sujey LOWRY, 13583-9, BMP, PINR #### [facility] ([id number]) [address] [place] [address] CBC auto differentialon 12-05 Basophils (Bld) [#/Vol] 0.1 10*3/uL [facility] Basophils/100 WBC (Bld) 0.9 % [facility] Eosinophils (Bld) [#/Vol] 0.2 10*3/uL [facility] Eosinophils/100 WBC (Bld) 2.6 % [facility] Erythrocyte distribution width (RBC) [Ratio] 13.6 % 11.5 - 15.0 % [facility] Hematocrit (Bld) [Volume fraction] 45.1 % 39 - 49 % [facility] Hemoglobin (Bld) [Mass/Vol] 15.5 g/dL 13.0 - 17.0 g/dL [facility] Interpretation and review of laboratory results Abnormal [facility] Lymphocytes (Bld) [#/Vol] 1.5 10*3/uL [facility] Lymphocytes/100 WBC (Bld) 21.7 % [facility] MCH (RBC) [Entitic mass] 30.2 pg 27 - [address] [facility] MCHC (RBC) [Mass/Vol] 34.4 g/dL 32 - 36 g/dL [facility] MCV (RBC) [Entitic vol] 88 fL 80 - [address] [facility] Monocytes (Bld) [#/Vol] 1.0 10*3/uL High [facility] Monocytes/100 WBC (Bld) 13.6 % [facility] Neutrophils (Bld) [#/Vol] 4.4 10*3/uL [facility] Neutrophils/100 WBC (Bld) 61.2 % [facility] Platelet mean volume (Bld) [Entitic vol] 7.8 fL 7 - [address] [facility] Platelets (Bld) [#/Vol] 269 10*3/uL [facility] RBC (Bld) [#/Vol] 5.12 10*6/uL [facility] WBC corrected for nucl RBC Auto (Bld) [#/Vol] 7.1 [facility] No Panel Informationon 12-20 [facility] PROTIME AND INRon 12-20-2023 INR Coag (PPP) [Relative time] 1.0 {INR} Normal 0.8-1.1 [facility] Comment on above: Performed By: #### Sujey LOWRY, 74225-2, BMP, PINR #### [facility] ([id number]) [address], [address] [place] [address] PT Coag (PPP) [Time] 11.3 s Normal 9.8-13.2 [facility] Comment on above: Performed By: #### C ALEN, 92425-4, BMP, PINR #### [facility] ([id number]) [address] [place] [address] Protime & INRon 12-20-2023 INR Coag (PPP) [Relative time] 1.0 {INR} [facility] PT Coag (PPP) [Time] 11.[address] [facility] Type and screenon 12-20-2023 ABO AB [facility] Rh Nom (Bld) Positive [facility] URINALYSISon 12-20-2023 Bilirubin Ql (U) Negative Normal NEG [facility] BLOOD/HGB Negative Normal NEG [facility] Color (U) YELLOW Normal YELLOW [facility] Glucose Ql (U) Negative Normal NEG [facility] Ketones Ql (U) Negative Normal NEG [facility] Leukocyte esterase Test strip Ql (U) Negative Normal NEG [facility] MUCOUS PRESENT Abnormal NONE [facility] Nitrite Ql (U) Negative Normal NEG [facility] pH (U) 6.0 [pH] Normal 5.0-8.5 [facility] Protein Ql (U) Trace Abnormal NEG [facility] R.B.CELLS 2 /hpf Normal 0-5 [facility] Specific gravity (U) [Rel density] 1.026 Normal 1.003-1.035 [facility] TURBIDITY CLEAR Normal CLEAR [facility] Urobilinogen (U) [Mass/Vol] mg/dL Normal <1.1 [facility] W.B.CELLS 2 /hpf Normal 0-5 [facility] URINE CULTUREon 12-20-2023 Bacteria identified Cx Nom (U) CULTURE RESULTS <10,000 ORGANISMS/ML NORMAL URO GENITAL CORINA Normal [facility] Comment on above: Performed By: #### 6 30-4 #### [facility] ([id number]) [address] [place] [address], [address] [place] [address] Urinalysison 12-20-2023 Bilirubin Ql (U) Negative Negative^Ne ga tive [facility] Color (U) YELLOW YELLOW^YELLOW [facility] Glucose (U) [Mass/Vol] Negative Negative^Nega tive mg/dL [facility] Hemoglobin Auto test strip Ql (U) Negative Negative^Nega tive [facility] Interpretation and review of laboratory results Abnormal [facility] Ketones (U) [Mass/Vol] Negative Negative^Nega tive mg/dL [facility] Leukocyte esterase Auto test strip Ql (U) Negative Negative^Nega tive [facility] Mucus Ql (Urine sed) PRESENT Abnormal NONE^NONE [facility] Nitrite Auto test strip Ql (U) Negative Negative^Nega tive [facility] pH (U) 6.0 [pH] 5.0 - 8.5 [facility] Protein (U) [Mass/Vol] Trace Abnormal Negative^Nega tive mg/dL [facility] RBC Auto (Urine sed) [#/Area] 2 [facility] Specific gravity Refractometry automated (U) [Rel density] 1.026 1.003 - 1.035 [facility] Turbidity Ql (U) CLEAR CLEAR^CLEAR [facility] Urobilinogen Qn (U) NINF [facility] WBC Auto (Urine sed) [#/Area] 2 [facility] aPTT Coag (PPP) [Time]on aPTT Coag (Bld) [Time] 31 s Normal 26-37 [facility] Comment on above: Performed By: #### C BCA, 45309-6, BMP, PINR #### [facility] ([id number]) [address] [place] [address] XR SPINE LUMB BENDING ONLY 2 -3 [...] F Morrell MD on 11/16/2023 8:57 PM Normal [facility] MR LUMBAR SPINE WO CONTon 12 -29-2023 MR LUMBAR SPINE WO CONT MR LUMBAR [...] Shaggy Ortega MD on 11/01/2023 10:24 AM [facility] XR shoulder RT min 2V*on XR shoulder RT min 2V* [facility] Main [address] [address] XRay Report Signed Patient: Regan Green MR#: [id number] 65 : 1950 Acct:[id number] Age/Sex: 73 / M ADM Date: 06/24/23 Loc: [facility] Room: Type: REG CLI Attending Dr: Charity [...] Artie Goldsmith M.D.06/24/2023 12:37 PM Dictation Location: [place] [address] Transcribed By: [facility] 06/24/23 1237 Dictated By: Artie Goldsmith DO 06/24/23 1236 Signed By: 06/24/23 1237 [facility] XR hand LT min 3V*on 023 XR hand LT min 3V* [facility] [address] [address] XRay Report Signed Patient: Regan Green MR#: [id number] [birth year] : 1950 Acct:[id number] Age/Sex: 73 / M ADM Date: 05/21/23 Loc: [facility] Room: Type: REG CLI Attending Dr: Charity [...] Vigil Jr., D.OLeonides05/21/2023 1:53 PM Dictation Location: [place] [address] Transcribed By: [facility] 05/21/23 1353 Dictated By: Regan Vigil Jr, DO 05/21/23 1352 Signed By: 05/21/[address] [place] [address] Covid-19 PCR (CVDTBH)on SARS-CoV-2 (COVID-19) RNA YASMIN+probe Ql (Unsp spec) Not detected Normal NOT DETECTED [facility] Comment on above: Result Comment: This test is not yet approved or cleared by the [place] FDA. When there are no FDA-approved or cleared tests available, and other criteria are met, FDA can make tests available under an emergency access mechanism called an Emergency Use Authorization (EUA). The EUA for this test is supported by the Corporate Development Manager of Health and Human Service's (HHS's) declaration [...] SARS-CoV-2. Performed By: #### C VDTB #### [facility] [address] [place] [address] Dr. Keely Fitzgerald MRI Shoulder w/o Lefton [...] by Boogie Modi on 02/23/2022 1229 Normal [facility] Brenna 04-28-2021 DESHAWN Telephone ([employer]odo[employer] TVN) REGAN GREEN ([id number]) 1950 M Date Time Provider Department 04/28/21 OZZY PEREZ During your visit today, we recorded the following information about you: Blaire Mcginnis 04/28/2021 10:08 AM Signed PSA order [...] tract infection) [N39.0] 05/08/2017 Encounter Status:Closed by BLAIRE BUENO on 04/28/21 Normal [facility] PELVIS [address] [facility] 04-16-20 18 PELVIS 1 OR [facility] [address] [place] [phone] ========Patient Name: REGAN GREEN : 1950ex: MAge: Race: WhiteMRN: [id number]. Location: 84Patient Status: OVisit #: [id number] Date: 04/16/2018 9:20:00 AMCompleted Date: 04/16/2018 09:18 AMRequesting Provider: BILLY KILLIAN Attending Provider: BILLY KILLIAN Report Copy To: Signs & Symptoms: M46.1 Sacroiliitis, not elsewhere classified [id number]: AthenaComments: , , , Ordering Provider - BILLY KILLIAN MD , Exam: PELVIS 1 OR 2 VWSAccession #: [id number] PELVIS 1 OR 2 VWS 04/16/2018 9:18 AM [...] fixation of healed acetabular fracture Electronically signed by:Lea Le. Transcribed by: [email or web address], User Resident: Electronically Signed by: LEA LE @ 04/16/2018 10:35 AM Normal [facility] Comment on above: Order Comment: , , = ========= , Ordering Provider - BILLY KILLIAN MD , Vital Signs Date Time Vital Sign Value Performing Clinician Facility 12-27-2023 11:46-0500 Body temperature 98.29 [degF] Mayco Nolen MD Work Phone: [facility] 12-27-2023 11:46-0500 Diastolic blood pressure 77 mm[Hg] Mayco Nolen MD Work Phone: [facility] 12-27-2023 11:46-0500 Heart rate 84 /min Mayco Nolen MD Work Phone: [facility] 12-27-2023 11:46-0500 Respiratory rate 14 /min Mayco Nolen MD Work Phone: [facility] 12-27-2023 11:46-0500 Systolic blood pressure 127 mm[Hg] Mayco Nolen MD Work Phone: [facility] 12-27-2023 04:23-0500 SaO2% (BldA) [Mass fraction] 94 % Mayco Nolen MD Work Phone: [facility] 12-25-2023 22:54-0500 Body mass index (BMI) [Ratio] 28.76 kg/m2 Mayco Nolen MD Work Phone: [facility] 12-25-2023 22:54-0500 Body weight 96.2 kg Mayco Nolen MD Work Phone: [facility] 12-25-2023 13:27-0500 Body height 182.9 cm Mayco Nolen MD Work Phone: [facility] 12-20-2023 14:20-0500 Body height 182.9 cm [facility] [address] [place] [address] 12-20-2023 14:20-0500 Body mass index (BMI) [Ratio] 29.39 kg/m2 [facility] 12-20-2023 14:20-0500 Body temperature 97.7 [degF] [facility] 12-20-2023 14:20-0500 Body weight 98.3 kg [facility] 12-20-2023 14:20-0500 Diastolic blood pressure 84 mm[Hg] [facility] 02-16-2024 14:20-0500 Heart rate 77 /min [facility] 12-20-2023 14:20-0500 Respiratory rate 18 /min [facility] 12-20-2023 14:20-0500 SaO2% (BldA) [Mass fraction] 97 % [facility] 12-20-2023 14:20-0500 Systolic blood pressure 132 mm[Hg] [facility] 11-14-2023 09:59-0500 Body height 180.3 cm Carl Sosa PHLEBOTOMY SUPERVISOR-BRINE TANK TENDER Work Phone: [facility] 11-14-2023 09:59-0500 Body mass index (BMI) [Ratio] 29.57 kg/m2 Carl Sosa PHLEBOTOMY SUPERVISOR-BRINE TANK TENDER Work Phone: [facility] 11-14-2023 09:59-0500 Body weight 96.16 kg Carl Sosa PHLEBOTOMY SUPERVISOR-BRINE TANK TENDER Work Phone: [facility] 11-14-2023 09:59-0500 Diastolic blood pressure 86 mm[Hg] Carl Sosa PHLEBOTOMY SUPERVISOR-BRINE TANK TENDER Work Phone: [facility] 11-14-2023 09:59-0500 Heart rate 81 /min Carl Sosa PHLEBOTOMY SUPERVISOR-BRINE TANK TENDER Work Phone: [facility] 11-14-2023 09:59-0500 Systolic blood pressure 135 mm[Hg] Carl Sosa PHLEBOTOMY SUPERVISOR-BRINE TANK TENDER Work Phone: [facility] 05-21-2023 10:00-0400 Body height 182.88 cm Charity Barkley Other [facility] Other 05-21-2023 10:00-0400 Body mass index (BMI) [Ratio] 30.51 kg/m2 Charity Barkley Other [facility] Other 05-21-2023 10:00-0400 Body weight 102.06 kg Chariytzafar Barkley Other [employer] Other Encounters Encounter Date Encounter Type Care Provider Facility Start: 02-14-2024 ambulatory [facility] Start: 02-12-2024 End: 02-13-2024 ambulatory [facility] Start: 01-29-2024 End: 01-29-2024 ambulatory [facility] Work Phone: Start: 01-29-2024 End: 01-29-2024 Patient encounter procedure [facility] Work Phone: Start: 12-28-2023 End: 12-28-2023 [facility] Start: 12-25-2023 End: 12-28-2023 ambulatory [facility] Start: 12-25-2023 End: 12-27-2023 ambulatory [facility] Start: 12-25-2023 End: 12-27-2023 Subsequent hospital visit by physician Mayco Nolen MD Work Phone: [facility] Comment on above: Radiculopathy, lumba r region; Neurogenic claudication Start: 12-24-2023 Telephone encounter [facility] Comment on above: surgery Start: 12-20-2023 End: 12-20-2023 ambulatory [facility] Start: 12-20-2023 Telephone encounter Hoda Chir[facility] Start: 12-20-2023 End: 12-20-2023 Patient encounter procedure Shalom León 9 [facility] [place] Comment on above: Radiculopathy, lumba r region; Neurogenic claudication; Monitoring for anticoagulant use; Abnormal urine findings Start: 12-18-2023 Documentation procedure Jasmin Noriega PHLEBOTOMY SUPERVISOR-BRINE TANK TENDER [facility] Start: 12-10-2023 Telephone encounter Myrtle Hatch LPN [facility] Comment on above: surgery Start: 12-05-2023 End: 01-03-2024 ambulatory [facility] Start: 11-27-2023 Telephone encounter Ella [facility] Start: 11-22-2023 End: 12-05-2023 ambulatory [facility] Start: 11-18-2023 End: 11-19-2023 ambulatory Rosales Corona MD Facility:[facility] Start: 11-14-2023 End: 11-15-2023 ambulatory [facility] Start: 11-14-2023 End: 11-14-2023 ambulatory [facility] Start: 11-14-2023 End: 11-14-2023 Office outpatient new [address] [facility] PHLEBOTOMY SUPERVISOR-BRINE TANK TENDER Work Phone: [facility] Comment on above: Neurogenic claudicat ion (Primary Dx); Lumbar radiculopathy, chronic Start: 11-05-2023 Telephone encounter Dolores Rm MA [facility] Comment on above: Er Follow-up Lumbar radiculopathy , chronic (Primary Dx) Start: 11-01-2023 End: 11-02-2023 ambulatory [facility] Start: 10-31-2023 End: 10-31-2023 Emergency department patient visit [facility] Start: 10-30-2023 End: 10-30-2023 ambulatory Charity Calvey Other [employer] Other Start: 10-30-2023 Office outpatient vi sit 15 minutes Charity Calvey [facility] Start: 10-22-2023 End: 10-23-2023 Emergency department patient visit MAEVE COTA [facility] Start: 08-20-2023 End: 08-20-2023 ambulatory Charity Calvey Other [employer] Other Start: 08-20-2023 Office outpatient vi sit 15 minutes Charity Calvey [facility] Start: 07-23-2023 End: 07-23-2023 ambulatory Hcarity Calvey Other [facility] [email or web address] Other Start: 07-23-2023 Office outpatient vi sit 15 minutes Charity Calvey [facility] Start: 06-24-2023 Office outpatient vi sit 15 minutes Charity Calvey [facility] Start: 06-24-2023 End: 06-24-2023 ambulatory NON STAFF Facility:[facility] Start: 06-24-2023 End: 06-24-2023 ambulatory NON STAFF [facility] Work Phone: Start: 06-24-2023 End: 06-24-2023 Patient encounter procedure MD Charity Barkley Work Phone: [facility] Start: 05-21-2023 Office outpatient ne w 30 minutes Charity Deshawney [facility] Start: 05-21-2023 End: 05-21-2023 ambulatory Charity R Deshawney [facility] Work Phone: Start: 05-21-2023 End: 05-21-2023 Patient encounter procedure MD Charity Barkley Work Phone: [facility] Start: 03-19-2023 End: 03-20-2023 ambulatory NARENDRANATH LAKSHMIPATHY . Facility:[facility] Start: 02-21-2023 End: 02-22-2023 ambulatory NARENDRANATH LAKSHMIPATHY . Facility:[facility] Start: 12-18-2022 End: 12-19-[address] ROMERO SOSA . Facility:[facility] Start: 11-22-2022 End: 11-23-[address] ROMERO SOSA . Facility:[facility] Start: 10-11-2022 Encounter for preprocedural laboratory examination DR ROMERO SOSA . [facility] Start: 10-09-2022 End: 10-09-[address] ROMERO SOSA . Facility:[facility] Start: 10-05-2022 End: 10-06-[address] ROMERO SOSA . Facility:[facility] Start: 10-05-2022 End: 10-06-2022 Encounter for preprocedural laboratory examination DR ROMERO SOSA . Facility:[facility] Start: 10-01-2022 Encounter for preprocedural cardiovascular examination ISELA SALMERON . [facility] Start: 09-26-2022 End: 09-27-2022 ambulatory ISELA [...] Start: 04-16-2018 End: 04-17-2018 Ambulatory BILLY KILLIAN Facility:[facility] Start: 01-28-2018 End: 01-29-2018 Ambulatory DEFAULT PHYSICIAN Facility:[facility] Procedures Date Procedure Procedure Detail Performing Clinician Start: 12-27-2023 Ecg routine ecg w/le ast 12 lds trcg only w/o i&r Christina Varma PHLEBOTOMY SUPERVISOR-BRINE TANK TENDER Work Phone: Start: 12-27-2023 End: 12-27-2023 Basic metabolic panel calcium total Christina Varma PHLEBOTOMY SUPERVISOR-BRINE TANK TENDER Work Phone: Start: 12-26-2023 Basic metabolic pane l calcium total Christina Varma PHLEBOTOMY SUPERVISOR-BRINE TANK TENDER Work Phone: Start: 12-25-2023 Fluor needle/cath spine/paraspinal dx/ther jenae Nolen MD Work Phone: Start: 12-25-2023 End: 12-25-2023 LAMINECTOMY LUMBAR MULTI LEVEL Mayco Nolen MD Work Phone: Start: 12-25-2023 REPEATED ABORH Mayco Nolen MD Work Phone: Start: 12-20-2023 Antibody screen [facility] Start: 12-20-2023 Basic metabolic pane l calcium total Mayco Nolen MD Work Phone: Start: 12-20-2023 Blood typing serologic abo Mayco Nolen MD Work Phone: Start: 12-20-2023 REPEATED ABORH Mayco Nolen MD Work Phone: Start: 12-20-2023 Urnls dip stick/tabl et rgnt auto w/o microscopy Mayco Nolen MD Work Phone: Start: 12-20-2023 Culture bacterial quanttative colony count urine Mayco Nolen MD Work Phone: Start: 07-29-2023 Adult depression scr eening assessment Dolores Anderson DESIGN TECHNOLOGY PROFESSOR Start: 06-24-2023 Plain X-ray of right shoulder MD Charity Barkley Work Phone: Start: 05-21-2023 Plain X-ray of left hand MD Charity Barkley Work Phone: Plan of Treatment Date Care Activity Detail Author Start: 12-25-2024 Adult BMI Screening Adult BMI Screen ing [facility] Start: 12-25-2024 Tobacco Screening Tobacco Screening [facility] Start: 12-20-2024 Adult BMI Screening Adult BMI Screen ing [facility] Start: 12-20-2024 Tobacco Screening Tobacco Screening [facility] Start: 11-14-2024 Adult BMI Screening Adult BMI Screen ing [facility] Start: 11-14-2024 Tobacco Screening Tobacco Screening [facility] Start: 10-31-2024 Tobacco Screening Tobacco Screening [facility] Start: 10-23-2024 Fall Risk Screening Fall Risk Screen ing [facility] Start: 10-22-2024 Adult BMI Screening Adult BMI Screen ing [facility] Start: 08-11-2024 End: 08-11-2024 Patient encounter procedure 08/11/2024 9:00 AM EDT Office Visit [facility] [address] [place] [phone] Sumanth Hill MD [address] [place] [address] [facility] Start: 07-30-2024 End: 07-30-2024 Patient encounter procedure 07/30/2024 8:30 AM EDT Office Visit [facility] [address] [phone] Sumanth Hill MD [address] [address] [facility] Start: 07-29-2024 [facility] Start: 07-29-2024 Medicare Annual Well ness Visit Medicare Annual Wellness Visit [facility] Start: 04-21-2024 End: 04-21-2024 Patient encounter procedure 04/21/2024 1:45 PM EDT Office Visit [facility] [address] [place] [address] [place] [address] [phone] Juan F Heller MD [address] [place] [address] [facility] Start: 02-13-2024 End: 02-13-2024 Patient encounter procedure 02/13/2024 1:50 PM EDT Office Visit [facility] [address] [place] [phone] Mayco Nolen MD [address] [place] [address] [address] [place] [phone] [facility] Start: 12-25-2023 End: 12-25-2023 Admission to same day surgery center 12/25/2023 2:45 PM EST - 12/25/2023 4:45 PM EST Surgery [facility] [address] [place] [phone] Mayco Nolen MD [address] [place] [address] [address] [place] [phone] LAMINECTOMY LUMBAR MULTI LEVEL / L2-L5 [facility] Comment on above: LAMINECTOMY LUMBAR M ULTI LEVEL / L2-L5 Start: 12-25-2023 End: 12-25-2023 LAMINECTOMY LUMBAR MULTI LEVEL [facility] Start: 12-25-2023 Subsequent hospital visit by physician 12/25/2023 2:45 PM EST Hospital Encounter [facility] [address] [place] [address] Mayco Nolen MD [address] [place] [address] [address] [place] [phone] [facility] Start: 12-06-2023 End: 12-06-2023 Patient encounter procedure 12/06/2023 7:00 AM EST Appointment [facility] [address] [place] [phone] [facility] Start: 11-14-2023 End: 11-14-2024 XR Lumbar spine Views AP W right bending and W left bending [facility] Work Phone: Comment on above: Expected: 11/14/2023 , Expires: 11/14/2024 Start: 07-05-2023 COVID-19 Vaccine ( season) COVID-19 Vaccine ( season) [facility] Start: 07-24-2013 Administration of varicella zoster vaccine Zoster (Shingles) Vaccine (1 of 2) [facility] Start: 1971 DTaP,Tdap and Td Vaccines (1 - Tdap) DTaP,Tdap and Td Vaccines (1 - Tdap) [facility] Start: 1970 Adult BMI Follow Up Plan Adult BMI Follow Up Plan [facility] Immunizations Immunization Date Immunization Notes Care Provider Fa cility 08-20-2022 Influenza, High-dose , [facility] influenza, injectabl e, quadrivalent, preservative free [facility] 09-18-2021 influenza, injectabl e, quadrivalent, preservative free Dolores [facility] 07-20-2020 Influenza, High-dose , Quadrivalent Dolores [facility] 08-11-2019 influenza, high dose seasonal, preservative-free Dolores [facility] 08-11-2019 pneumococcal polysaccharide vaccine, 23 valent Dolores [facility] 07-31-2018 influenza, injectabl e, quadrivalent, preservative free Dolores [facility] 11-20-2017 influenza, seasonal, injectable, preservative free Dolores [facility] 11-20-2017 pneumococcal conjuga te vaccine, 13 valent Dolores [facility] 08-19-2013 pneumococcal polysaccharide vaccine, 23 valent Dolores [facility] 05-29-2013 zoster vaccine, live Dolores [facility] 05-29-2013 zoster vaccine, unspecified formulation Dolores [facility] 08-18-2012 influenza virus vacc ine, whole virus Dolores [facility] 08-13-2012 pneumococcal polysaccharide vaccine, 23 valent Dolores [facility] 08-13-2012 zoster vaccine, live Dolores [facility] 09-03-2011 influenza virus vacc ine, whole virus Dolores [facility] 09-11-2010 influenza virus vacc ine, whole virus Dolores [facility] 08-22-2009 influenza virus vacc ine, whole virus Dolores [facility] Payers Date Payer Category Payer Self-pay [id number] 2023 Unknown [id number] 2019 Unknown 2017 Medicare [id number] 1959 Medicare [id number] 1959 Unknown [id number] 1959 Unknown [id number] 1952 Unknown [id number] 2.16.840.1.710257.3.579.2.593 1952 Unknown [id number] 2.16.840.1.283107.3.579.2.593 1952 Unknown [id number] 2.16.840.1.627137.3.579.2.593 1952 Unknown [id number] 2.16.840.1.054876.3.579.2.593 1952 Unknown [id number] 2.16.840.1.486950.3.579.2.593 1952 Unknown [id number] 2.16.840.1.840815.3.579.2.593 1952 Unknown [id number] 2.16.840.1.937957.3.579.2.593 1952 Unknown [id number] 2.16.840.1.610357.3.579.2.593 1952 Unknown [id number] 2.16.840.1.038339.3.579.2.593 1952 Unknown [id number] 2.16.840.1.139146.3.579.2.593 1952 Unknown [id number] 2.16.840.1.078790.3.579.2.593 1952 Unknown [id number] 2.16.840.1.537868.3.579.2.196 1952 Unknown [id number] 2.16.840.1.788927.3.579.2.1286 1952 Unknown [id number] 2.16.840.1.904218.3.579.2.1285 1952 Unknown [id number] 2.16.840.1.185706.3.579.2.1285 1952 Unknown [id number] 2.16.840.1.348299.3.579.2.1285 1952 Unknown [id number] 2.16.840.1.141177.3.579.2.1285 1952 Unknown [id number] 2.16.840.1.126823.3.579.2.1285 1952 Unknown [id number] 2.16.840.1.375970.3.579.2.1285 1952 Unknown [id number] 2.16.840.1.772949.3.579.2.1285 1952 Unknown [id number] 2.16.840.1.017474.3.579.2.1285 1952 Unknown [id number] 2.16.840.1.549271.3.579.2.1285 1952 Unknown [id number] 2.16.840.1.304304.3.579.2.1285 1952 Unknown [id number] 2.16.840.1.306674.3.579.2.1285 1952 Unknown [id number] 2.16.840.1.556557.3.579.2.1285 1952 Unknown [id number] 2.16.840.1.731164.3.579.2.1285 1952 Unknown [id number] 2.16.840.1.497569.3.579.2.1285 1952 Unknown [id number] 2.16.840.1.508861.3.579.2.1286 Unknown [place] [id number] Unknown [id number] 2.16.840.1.665037.3.579.2.531 Unknown [id number] 2.16.840.1.519906.3.579.2.531 Worker's Compensation [id number] Social History Date Type Detail Facility Unknown if ever smoked [facility] Work Phone: Start: 12-01-2019 End: 12-15-2020 Sex Assigned At [facility] [employer] Other Start: 1950 Sex Assigned At Male F [facility] Start: 01-17-2023 End: 12-20-2023 Tobacco smoking status MDIS Ex-smoker [facility] History of tobacco use Current smoker [facility] History of tobacco use Cigarette Smoker P [facility] Start: 01-17-2023 End: 12-20-2023 Tobacco use and exposure Smokeless tobacco non-user [facility] Start: 10-31-2023 End: 12-26-2023 Alcohol intake Current drinker of alcohol (finding) [facility] Start: 12-01-2019 End: 12-15-2020 History of Social function [facility] Frequency of Alcohol Consumption 4 or more times a week [facility] Start: 01-17-2023 Alcohol Comment socially [facility] Start: 1950 Sex Assigned At Not on file P [facility] Start: 11-07-2018 Tobacco smoking stat us [facility] Never smoked tobacco (finding) [facility] Medical Equipment Procedure Code Equipment Code Equipment Origin al Text Equipment Identifier Dates Patch Dura 1x1in Drmtrx-[place] + Clgn Rgnrt Membr Strl Rpl [id number] - [id number] Start: 12-25-2023 Goals Date Patient Goal Desired Activity /State Personal health goal Comment on above: Formatting of this n ote might be different from the original. Evaluation of progress towards goal: under assessment, has NG Personal health goal Comment on above: Formatting of this n ote might be different from the original. Evaluation of progress towards goal: Patient will discharge home with , self care. - Jace Silva RN 12/26/23 11:57 AM Clinical Notes 06-14-2022 to 12-27-2023 Michaelle Zeng RN - 12/27/2023 1:01 PM Keith Zeng RN - 12/27/2023 1:01 PM ESTPlan of Care - Michaelle Zeng RN - 12/27/2023 12:59 PM Nadine Varma APRN-LATOYA - 12/27/2023 12:28 PM EST Note Date & Type Note Facility 12-27-2023 Nurse Note Discharge instructions provided to patient. Patient verbalized understanding, and denies any further concerns at this time. IV removed at time of discharged. Patient gathered belongings from room. Patient in no apparent distress. Patient taken to entrance b in a wheelchair with . [facility] 12-27-2023 Nurse Note Discharge instructions provided to patient. Patient verbalized understanding, and denies any further concerns at this time. IV removed at time of discharged. Patient gathered belongings from room. Patient in no apparent distress. Patient taken to entrance b in a wheelchair with . documented in this encounter [facility] 12-27-2023 Plan of care note Problem: Pain Goal: Patient goal is pain score less than 4, able to rest, and participant in treatment plan as appropriate Description: INTERVENTIONS: 1. Encourage patient or legal client services representative to report early pain and ask for pain medicine when needed 2. Assess pain using appropriate pain scale and include the scale used when documenting 3. Administer analgesics based on type and severity of pain and evaluate response within appropriate time frame 4. Implement non-pharmacological measures as appropriate and evaluate response 5. Consider cultural and social influences on pain and pain management 6. Notify LIP if interventions ineffective or patient reports new pain 7. Monitor vital signs including pulse ox, end-tidal CO2 based on pain intervention 8. Reassess pain per policy 9. Teach patient or legal client services representative interventions for comforting 12/27/2023 1259 by MIREILLE Braswell Outcome: Adequate for Discharge 12/27/2023 1008 by MIREILLE Braswell Outcome: Progressing Note: Evaluation of progress towards goal: Patient states pain is 7/10 at this time. Appropriate interventions provided to patient. Plan of care ongoing. Problem: Safety Goal: Patient will be injury free during hospitalization Description: INTERVENTIONS: 1. Assess patient's risk for falls and implement fall prevention plan of care per policy 2. Provide and maintain a safe environment 3. Proper use of double Identifiers 4. Medication administration using the 5 rights 5. Hand hygiene 6. Specimens are labeled at the bedside 7. Instruct patient/ patient client services representative about use of safety devices 8. Include patient/ patient client services representative in decisions related to safety 12/27/2023 1259 by MIREILLE Braswell Outcome: Adequate for Discharge 12/27/2023 1008 by MIREILLE Braswell Outcome: Progressing Note: Evaluation of progress towards goal: Patient walkway in clear, and well lit. Will keep patient's environment safe. Plan of care ongoing. Problem: Infection Goal: Absence of infection during hospitalization Description: Interventions: 1. Assess and monitor for signs and symptoms of infection 2. Monitor lab/diagnostic results 3. Monitor all insertion sites i.e., indwelling lines, tubes and drains 4. Monitor endotracheal (as able) and nasal secretions for changes in amount and color 5. Administer medications as ordered 6. Instruct and encourage patient and family to use good hand hygiene technique 7. Identify and instruct patient/patient client services representative in use of appropriate isolation precautions for identified infection/symptoms 8. Provide and discuss with patient/patient client services representative on educational MDRO sheet 9. Encourage and monitor nutritional status daily and consult clinical abstractor if indicated 10. Implement neutropenic guidelines as needed 11. Review exposure to history of communicable disease and recent travel history on admission 12. Encourage annual influenza vaccine 13. Encourage pneumonia vaccine 12/27/2023 1259 by MIREILLE Braswell Outcome: Adequate for Discharge 12/27/2023 1008 by MIREILLE Braswell Outcome: Progressing Note: Evaluation of progress towards goal: Patient denies fever. No purulent drainage noted at site. Plan of care ongoing. Problem: Knowledge Deficit Goal: Patient/patient client services representative demonstrates understanding of disease process, treatment plan, medications, and discharge instructions Description: INTERVENTIONS 1. Complete learning assessment and assess knowledge base 2. Provide teaching at level of understanding 3. Provide teaching via preferred learning method(s) 12/27/2023 1259 by MIREILLE Braswell Outcome: Adequate for Discharge 12/27/2023 1008 by MIREILLE Braswell Outcome: Progressing Note: Evaluation of progress towards goal: Will continue to assess, and will educate patient until verbalizing a level of understanding. Problem: Discharge Planning Goal: Discharge to post-acute care, other facility, or home with appropriate resources Description: Patient's goal is: INTERVENTIONS 1. Conduct assessment to determine patient/family and health care team treatment goals, and need for post-acute services based on payer coverage, community resources, and patient preferences, and barriers to discharge 2. Coordinate with Social work, Care Navigation, and Utilization Review to arrange appropriate level of services according to patient's needs based on patient preference and payer coverage in collaboration with the physician and health care team 3. Address psychosocial, clinical, and financial barriers to discharge as identified in assessment in conjunction with the patient/family and health care team 4. Consult appropriate ancillary services (i.e.. PT/OT/ST, etc) as needed 5. Communicate with and update the patient/family, physician, and health care team regarding progress on the discharge plan 6. Identify discharge learning needs (meds, wound care, etc). 7. Arrange for needed discharge transportation as appropriate 12/27/2023 1259 by MIREILLE Braswell Outcome: Adequate for Discharge 12/27/2023 1008 by MIREILLE Braswell Outcome: Progressing Note: Evaluation of progress towards goal: Patient will be discharged with appropriate resources. Problem: Moderate - High Risk Fall Score Description: Soni Fall Score of =/> 25 or indicated by [facility] Assessment Goal: Patient should be free from fall Description: Interventions: 1. [place] to environment 2. Hourly rounds addressing the 4 P's (Pain, Positioning, Possessions, Potty) 3. Clear area of hazards (spills, clutter, electrical cords, unnecessary equipment) 4. Place equipment (bed & TV controls, call light, phone, urinal) within reach 5. Encourage patient to wear glasses and hearing aides as appropriate 6. Maintain bed in lowest position 7. Lock wheels on bed/wheelchair 8. Provide adequate lighting, including night light 9. Assess need for additional bedding, food/fluids, pain med's prior to sleep/routinely 10. Provide gripper slippers or personal non-skid footwear 11. Teach patient and patient client services representative to maintain environment for safety and engage in all aspects of fall prevention program 12. Remind patient to call for help before getting out of bed 13. Initiate bed/chair/exit alarms supportive devices as appropriate, (chair wedge, no-skid floor mat, raised edge mattress, hip protectors) 14. Locate patient bed assignment for optimal visualization 15. Evaluate and identify Safe Patient Handling Equipment needs 16. Provide supervision when out of bed or chair 17. Utilize gait belt as needed to assist with ambulation 18. Place adaptive equipment (cane, walker) within reach 19. Request patient client services representative bring adaptive equipment/mobility aids from home or obtain and provide as needed 20. Consult pharmacy regarding effects of med's affecting mobility, cognition, and alternatives 21. Obtain physician order for PT if risk factors associated with mobility are present 22. Obtain physician order for OT as appropriate 23. Utilize diversional activities 24. Educate patient and patient client services representative how to maintain a safe environment during visitation times (notify nurse prior to leaving bedside) 25. Consider appropriateness of medical or non-medical research assistant 26. Set up voiding schedule as appropriate (every 2 hours) 12/27/2023 1259 by MIREILLE Braswell Outcome: Adequate for Discharge 12/27/2023 1008 by MIREILLE Braswell Outcome: Progressing Note: Evaluation of progress towards goal: Patient denies fall during shift. Patient instructed to use call light to call nurse. Patient environment clear of clutter. Plan of care ongoing. Problem: Musculoskeletal - Adult Goal: Maintain proper alignment of affected body part Description: INTERVENTIONS: 1. Support and protect limb and body alignment per provider's orders 2. Instruct and reinforce with patient and family use of appropriate assistive device and precautions (e.g. spinal or hip dislocation precautions) 12/27/2023 1259 by MIREILLE Braswell Outcome: Adequate for Discharge 12/27/2023 1008 by MIREILLE Braswell Outcome: Progressing Note: Evaluation of progress towards goal: Plan of care ongoing. [facility] Miscellaneous Notes Problem: Pain Goal: Patient goal is pain score less than 4, able to rest, and participant in treatment plan as appropriate Description: INTERVENTIONS: 1. Encourage patient or legal client services representative to report early pain and ask for pain medicine when needed 2. Assess pain using appropriate pain scale and include the scale used when documenting 3. Administer analgesics based on type and severity of pain and evaluate response within appropriate time frame 4. Implement non-pharmacological measures as appropriate and evaluate response 5. Consider cultural and social influences on pain and pain management 6. Notify LIP if interventions ineffective or patient reports new pain 7. Monitor vital signs including pulse ox, end-tidal CO2 based on pain intervention 8. Reassess pain per policy 9. Teach patient or legal client services representative interventions for comforting 12/27/2023 1259 by MIREILLE Braswell Outcome: Adequate for Discharge 12/27/2023 1008 by MIREILLE Braswell Outcome: Progressing Note: Evaluation of progress towards goal: Patient states pain is 7/10 at this time. Appropriate interventions provided to patient. Plan of care ongoing. Problem: Safety Goal: Patient will be injury free during hospitalization Description: INTERVENTIONS: 1. Assess patient's risk for falls and implement fall prevention plan of care per policy 2. Provide and maintain a safe environment 3. Proper use of double Identifiers 4. Medication administration using the 5 rights 5. Hand hygiene 6. Specimens are labeled at the bedside 7. Instruct patient/ patient client services representative about use of safety devices 8. Include patient/ patient client services representative in decisions related to safety 12/27/2023 1259 by MIREILLE Braswell Outcome: Adequate for Discharge 12/27/2023 1008 by MIREILLE Braswell Outcome: Progressing Note: Evaluation of progress towards goal: Patient walkway in clear, and well lit. Will keep patient's environment safe. Plan of care ongoing. Problem: Infection Goal: Absence of infection during hospitalization Description: Interventions: 1. Assess and monitor for signs and symptoms of infection 2. Monitor lab/diagnostic results 3. Monitor all insertion sites i.e., indwelling lines, tubes and drains 4. Monitor endotracheal (as able) and nasal secretions for changes in amount and color 5. Administer medications as ordered 6. Instruct and encourage patient and family to use good hand hygiene technique 7. Identify and instruct patient/patient client services representative in use of appropriate isolation precautions for identified infection/symptoms 8. Provide and discuss with patient/patient client services representative on educational MDRO sheet 9. Encourage and monitor nutritional status daily and consult clinical abstractor if indicated 10. Implement neutropenic guidelines as needed 11. Review exposure to history of communicable disease and recent travel history on admission 12. Encourage annual influenza vaccine 13. Encourage pneumonia vaccine 12/27/2023 1259 by MIREILLE Braswell Outcome: Adequate for Discharge 12/27/2023 1008 by MIREILLE Braswell Outcome: Progressing Note: Evaluation of progress towards goal: Patient denies fever. No purulent drainage noted at site. Plan of care ongoing. Problem: Knowledge Deficit Goal: Patient/patient client services representative demonstrates understanding of disease process, treatment plan, medications, and discharge instructions Description: INTERVENTIONS 1. Complete learning assessment and assess knowledge base 2. Provide teaching at level of understanding 3. Provide teaching via preferred learning method(s) 12/27/2023 1259 by MIREILLE Braswell Outcome: Adequate for Discharge 12/27/2023 1008 by MIREILLE Braswell Outcome: Progressing Note: Evaluation of progress towards goal: Will continue to assess, and will educate patient until verbalizing a level of understanding. Problem: Discharge Planning Goal: Discharge to post-acute care, other facility, or home with appropriate resources Description: Patient's goal is: INTERVENTIONS 1. Conduct assessment to determine patient/family and health care team treatment goals, and need for post-acute services based on payer coverage, community resources, and patient preferences, and barriers to discharge 2. Coordinate with Social work, Care Navigation, and Utilization Review to arrange appropriate level of services according to patient's needs based on patient preference and payer coverage in collaboration with the physician and health care team 3. Address psychosocial, clinical, and financial barriers to discharge as identified in assessment in conjunction with the patient/family and health care team 4. Consult appropriate ancillary services (i.e.. PT/OT/ST, etc) as needed 5. Communicate with and update the patient/family, physician, and health care team regarding progress on the discharge plan 6. Identify discharge learning needs (meds, wound care, etc). 7. Arrange for needed discharge transportation as appropriate 12/27/2023 1259 by MIREILLE Braswell Outcome: Adequate for Discharge 12/27/2023 1008 by MIREILLE Braswell Outcome: Progressing Note: Evaluation of progress towards goal: Patient will be discharged with appropriate resources. Problem: Moderate - High Risk Fall Score Description: Soni Fall Score of =/> 25 or indicated by [facility] Assessment Goal: Patient should be free from fall Description: Interventions: 1. [place] to environment 2. Hourly rounds addressing the 4 P's (Pain, Positioning, Possessions, Potty) 3. Clear area of hazards (spills, clutter, electrical cords, unnecessary equipment) 4. Place equipment (bed & TV controls, call light, phone, urinal) within reach 5. Encourage patient to wear glasses and hearing aides as appropriate 6. Maintain bed in lowest position 7. Lock wheels on bed/wheelchair 8. Provide adequate lighting, including night light 9. Assess need for additional bedding, food/fluids, pain med's prior to sleep/routinely 10. Provide gripper slippers or personal non-skid footwear 11. Teach patient and patient client services representative to maintain environment for safety and engage in all aspects of fall prevention program 12. Remind patient to call for help before getting out of bed 13. Initiate bed/chair/exit alarms supportive devices as appropriate, (chair wedge, no-skid floor mat, raised edge mattress, hip protectors) 14. Locate patient bed assignment for optimal visualization 15. Evaluate and identify Safe Patient Handling Equipment needs 16. Provide supervision when out of bed or chair 17. Utilize gait belt as needed to assist with ambulation 18. Place adaptive equipment (cane, walker) within reach 19. Request patient client services representative bring adaptive equipment/mobility aids from home or obtain and provide as needed 20. Consult pharmacy regarding effects of med's affecting mobility, cognition, and alternatives 21. Obtain physician order for PT if risk factors associated with mobility are present 22. Obtain physician order for OT as appropriate 23. Utilize diversional activities 24. Educate patient and patient client services representative how to maintain a safe environment during visitation times (notify nurse prior to leaving bedside) 25. Consider appropriateness of medical or non-medical research assistant 26. Set up voiding schedule as appropriate (every 2 hours) 12/27/2023 1259 by MIREILLE Braswell Outcome: Adequate for Discharge 12/27/2023 1008 by MIREILLE Braswell Outcome: Progressing Note: Evaluation of progress towards goal: Patient denies fall during shift. Patient instructed to use call light to call nurse. Patient environment clear of clutter. Plan of care ongoing. Problem: Musculoskeletal - Adult Goal: Maintain proper alignment of affected body part Description: INTERVENTIONS: 1. Support and protect limb and body alignment per provider's orders 2. Instruct and reinforce with patient and family use of appropriate assistive device and precautions (e.g. spinal or hip dislocation precautions) 12/27/2023 1259 by MIREILLE Braswell Outcome: Adequate for Discharge 12/27/2023 1008 by MIREILLE Braswell Outcome: Progressing Note: Evaluation of progress towards goal: Plan of care ongoing. Problem: Pain Goal: Patient goal is pain score less than 4, able to rest, and participant in treatment plan as appropriate Description: INTERVENTIONS: 1. Encourage patient or legal client services representative to report early pain and ask for pain medicine when needed 2. Assess pain using appropriate pain scale and include the scale used when documenting 3. Administer analgesics based on type and severity of pain and evaluate response within appropriate time frame 4. Implement non-pharmacological measures as appropriate and evaluate response 5. Consider cultural and social influences on pain and pain management 6. Notify LIP if interventions ineffective or patient reports new pain 7. Monitor vital signs including pulse ox, end-tidal CO2 based on pain intervention 8. Reassess pain per policy 9. Teach patient or legal client services representative interventions for comforting Outcome: Progressing Note: Evaluation of progress towards goal: Patient states pain is 7/10 at this time. Appropriate interventions provided to patient. Plan of care ongoing. Problem: Safety Goal: Patient will be injury free during hospitalization Description: INTERVENTIONS: 1. Assess patient's risk for falls and implement fall prevention plan of care per policy 2. Provide and maintain a safe environment 3. Proper use of double Identifiers 4. Medication administration using the 5 rights 5. Hand hygiene 6. Specimens are labeled at the bedside 7. Instruct patient/ patient client services representative about use of safety devices 8. Include patient/ patient client services representative in decisions related to safety Outcome: Progressing Note: Evaluation of progress towards goal: Patient walkway in clear, and well lit. Will keep patient's environment safe. Plan of care ongoing. Problem: Infection Goal: Absence of infection during hospitalization Description: Interventions: 1. Assess and monitor for signs and symptoms of infection 2. Monitor lab/diagnostic results 3. Monitor all insertion sites i.e., indwelling lines, tubes and drains 4. Monitor endotracheal (as able) and nasal secretions for changes in amount and color 5. Administer medications as ordered 6. Instruct and encourage patient and family to use good hand hygiene technique 7. Identify and instruct patient/patient client services representative in use of appropriate isolation precautions for identified infection/symptoms 8. Provide and discuss with patient/patient client services representative on educational MDRO sheet 9. Encourage and monitor nutritional status daily and consult clinical abstractor if indicated 10. Implement neutropenic guidelines as needed 11. Review exposure to history of communicable disease and recent travel history on admission 12. Encourage annual influenza vaccine 13. Encourage pneumonia vaccine Outcome: Progressing Note: Evaluation of progress towards goal: Patient denies fever. No purulent drainage noted at site. Plan of care ongoing. Problem: Knowledge Deficit Goal: Patient/patient client services representative demonstrates understanding of disease process, treatment plan, medications, and discharge instructions Description: INTERVENTIONS 1. Complete learning assessment and assess knowledge base 2. Provide teaching at level of understanding 3. Provide teaching via preferred learning method(s) Outcome: Progressing Note: Evaluation of progress towards goal: Will continue to assess, and will educate patient until verbalizing a level of understanding. Problem: Discharge Planning Goal: Discharge to post-acute care, other facility, or home with appropriate resources Description: Patient's goal is: INTERVENTIONS 1. Conduct assessment to determine patient/family and health care team treatment goals, and need for post-acute services based on payer coverage, community resources, and patient preferences, and barriers to discharge 2. Coordinate with Social work, Care Navigation, and Utilization Review to arrange appropriate level of services according to patient's needs based on patient preference and payer coverage in collaboration with the physician and health care team 3. Address psychosocial, clinical, and financial barriers to discharge as identified in assessment in conjunction with the patient/family and health care team 4. Consult appropriate ancillary services (i.e.. PT/OT/ST, etc) as needed 5. Communicate with and update the patient/family, physician, and health care team regarding progress on the discharge plan 6. Identify discharge learning needs (meds, wound care, etc). 7. Arrange for needed discharge transportation as appropriate Outcome: Progressing Note: Evaluation of progress towards goal: Patient will be discharged with appropriate resources. Problem: Moderate - High Risk Fall Score Description: Soni Fall Score of =/> 25 or indicated by [facility] Assessment Goal: Patient should be free from fall Description: Interventions: 1. [place] to environment 2. Hourly rounds addressing the 4 P's (Pain, Positioning, Possessions, Potty) 3. Clear area of hazards (spills, clutter, electrical cords, unnecessary equipment) 4. Place equipment (bed & TV controls, call light, phone, urinal) within reach 5. Encourage patient to wear glasses and hearing aides as appropriate 6. Maintain bed in lowest position 7. Lock wheels on bed/wheelchair 8. Provide adequate lighting, including night light 9. Assess need for additional bedding, food/fluids, pain med's prior to sleep/routinely 10. Provide gripper slippers or personal non-skid footwear 11. Teach patient and patient client services representative to maintain environment for safety and engage in all aspects of fall prevention program 12. Remind patient to call for help before getting out of bed 13. Initiate bed/chair/exit alarms supportive devices as appropriate, (chair wedge, no-skid floor mat, raised edge mattress, hip protectors) 14. Locate patient bed assignment for optimal visualization 15. Evaluate and identify Safe Patient Handling Equipment needs 16. Provide supervision when out of bed or chair 17. Utilize gait belt as needed to assist with ambulation 18. Place adaptive equipment (cane, walker) within reach 19. Request patient client services representative bring adaptive equipment/mobility aids from home or obtain and provide as needed 20. Consult pharmacy regarding effects of med's affecting mobility, cognition, and alternatives 21. Obtain physician order for PT if risk factors associated with mobility are present 22. Obtain physician order for OT as appropriate 23. Utilize diversional activities 24. Educate patient and patient client services representative how to maintain a safe environment during visitation times (notify nurse prior to leaving bedside) 25. Consider appropriateness of medical or non-medical research assistant 26. Set up voiding schedule as appropriate (every 2 hours) Outcome: Progressing Note: Evaluation of progress towards goal: Patient denies fall during shift. Patient instructed to use call light to call nurse. Patient environment clear of clutter. Plan of care ongoing. Problem: Musculoskeletal - Adult Goal: Maintain proper alignment of affected body part Description: INTERVENTIONS: 1. Support and protect limb and body alignment per provider's orders 2. Instruct and reinforce with patient and family use of appropriate assistive device and precautions (e.g. spinal or hip dislocation precautions) Outcome: Progressing Note: Evaluation of progress towards goal: Plan of care ongoing. Physical Therapy [facility]CEL - Deferred Per RN pt is dizzy and diaphoretic laying supine in bed. Will hold PT treatment and attempt to complete session as able. Problem: Pain Goal: Patient goal is pain score less than 4, able to rest, and participant in treatment plan as appropriate Description: INTERVENTIONS: 1. Encourage patient or legal client services representative to report early pain and ask for pain medicine when needed 2. Assess pain using appropriate pain scale and include the scale used when documenting 3. Administer analgesics based on type and severity of pain and evaluate response within appropriate time frame 4. Implement non-pharmacological measures as appropriate and evaluate response 5. Consider cultural and social influences on pain and pain management 6. Notify LIP if interventions ineffective or patient reports new pain 7. Monitor vital signs including pulse ox, end-tidal CO2 based on pain intervention 8. Reassess pain per policy 9. Teach patient or legal client services representative interventions for comforting Outcome: Progressing Note: Evaluation of progress towards goal: pain well controled with prn medications Problem: Safety Goal: Patient will be injury free during hospitalization Description: INTERVENTIONS: 1. Assess patient's risk for falls and implement fall prevention plan of care per policy 2. Provide and maintain a safe environment 3. Proper use of double Identifiers 4. Medication administration using the 5 rights 5. Hand hygiene 6. Specimens are labeled at the bedside 7. Instruct patient/ patient client services representative about use of safety devices 8. Include patient/ patient client services representative in decisions related to safety Outcome: Progressing Note: Evaluation of progress towards goal: safety maintained Problem: Infection Goal: Absence of infection during hospitalization Description: Interventions: 1. Assess and monitor for signs and symptoms of infection 2. Monitor lab/diagnostic results 3. Monitor all insertion sites i.e., indwelling lines, tubes and drains 4. Monitor endotracheal (as able) and nasal secretions for changes in amount and color 5. Administer medications as ordered 6. Instruct and encourage patient and family to use good hand hygiene technique 7. Identify and instruct patient/patient client services representative in use of appropriate isolation precautions for identified infection/symptoms 8. Provide and discuss with patient/patient client services representative on educational MDRO sheet 9. Encourage and monitor nutritional status daily and consult clinical abstractor if indicated 10. Implement neutropenic guidelines as needed 11. Review exposure to history of communicable disease and recent travel history on admission 12. Encourage annual influenza vaccine 13. Encourage pneumonia vaccine Outcome: Progressing Note: Evaluation of progress towards goal: patient free from s/s of infection Problem: Knowledge Deficit Goal: Patient/patient client services representative demonstrates understanding of disease process, treatment plan, medications, and discharge instructions Description: INTERVENTIONS 1. Complete learning assessment and assess knowledge base 2. Provide teaching at level of understanding 3. Provide teaching via preferred learning method(s) Outcome: Progressing Note: Evaluation of progress towards goal: patient verbalized understanding of care plan Problem: Discharge Planning Goal: Discharge to post-acute care, other facility, or home with appropriate resources Description: Patient's goal is: INTERVENTIONS 1. Conduct assessment to determine patient/family and health care team treatment goals, and need for post-acute services based on payer coverage, community resources, and patient preferences, and barriers to discharge 2. Coordinate with Social work, Care Navigation, and Utilization Review to arrange appropriate level of services according to patient's needs based on patient preference and payer coverage in collaboration with the physician and health care team 3. Address psychosocial, clinical, and financial barriers to discharge as identified in assessment in conjunction with the patient/family and health care team 4. Consult appropriate ancillary services (i.e.. PT/OT/ST, etc) as needed 5. Communicate with and update the patient/family, physician, and health care team regarding progress on the discharge plan 6. Identify discharge learning needs (meds, wound care, etc). 7. Arrange for needed discharge transportation as appropriate Outcome: Progressing Note: Evaluation of progress towards goal: patient to return home on d/c Problem: Moderate - High Risk Fall Score Description: Soni Fall Score of =/> 25 or indicated by [facility] Assessment Goal: Patient should be free from fall Description: Interventions: 1. [place] to environment 2. Hourly rounds addressing the 4 P's (Pain, Positioning, Possessions, Potty) 3. Clear area of hazards (spills, clutter, electrical cords, unnecessary equipment) 4. Place equipment (bed & TV controls, call light, phone, urinal) within reach 5. Encourage patient to wear glasses and hearing aides as appropriate 6. Maintain bed in lowest position 7. Lock wheels on bed/wheelchair 8. Provide adequate lighting, including night light 9. Assess need for additional bedding, food/fluids, pain med's prior to sleep/routinely 10. Provide gripper slippers or personal non-skid footwear 11. Teach patient and patient client services representative to maintain environment for safety and engage in all aspects of fall prevention program 12. Remind patient to call for help before getting out of bed 13. Initiate bed/chair/exit alarms supportive devices as appropriate, (chair wedge, no-skid floor mat, raised edge mattress, hip protectors) 14. Locate patient bed assignment for optimal visualization 15. Evaluate and identify Safe Patient Handling Equipment needs 16. Provide supervision when out of bed or chair 17. Utilize gait belt as needed to assist with ambulation 18. Place adaptive equipment (cane, walker) within reach 19. Request patient client services representative bring adaptive equipment/mobility aids from home or obtain and provide as needed 20. Consult pharmacy regarding effects of med's affecting mobility, cognition, and alternatives 21. Obtain physician order for PT if risk factors associated with mobility are present 22. Obtain physician order for OT as appropriate 23. Utilize diversional activities 24. Educate patient and patient client services representative how to maintain a safe environment during visitation times (notify nurse prior to leaving bedside) 25. Consider appropriateness of medical or non-medical research assistant 26. Set up voiding schedule as appropriate (every 2 hours) Outcome: Progressing Note: Evaluation of progress towards goal: patient remains free from falls Problem: Musculoskeletal - Adult Goal: Maintain proper alignment of affected body part Description: INTERVENTIONS: 1. Support and protect limb and body alignment per provider's orders 2. Instruct and reinforce with patient and family use of appropriate assistive device and precautions (e.g. spinal or hip dislocation precautions) Outcome: Progressing Note: Evaluation of progress towards goal: patient maintaining body alignment per self Problem: Pain Goal: Patient goal is pain score less than 4, able to rest, and participant in treatment plan as appropriate Description: INTERVENTIONS: 1. Encourage patient or legal client services representative to report early pain and ask for pain medicine when needed 2. Assess pain using appropriate pain scale and include the scale used when documenting 3. Administer analgesics based on type and severity of pain and evaluate response within appropriate time frame 4. Implement non-pharmacological measures as appropriate and evaluate response 5. Consider cultural and social influences on pain and pain management 6. Notify LIP if interventions ineffective or patient reports new pain 7. Monitor vital signs including pulse ox, end-tidal CO2 based on pain intervention 8. Reassess pain per policy 9. Teach patient or legal client services representative interventions for comforting Outcome: Progressing Note: Evaluation of progress towards goal: Patient is able to rest and participate in care. Problem: Safety Goal: Patient will be injury free during hospitalization Description: INTERVENTIONS: 1. Assess patient's risk for falls and implement fall prevention plan of care per policy 2. Provide and maintain a safe environment 3. Proper use of double Identifiers 4. Medication administration using the 5 rights 5. Hand hygiene 6. Specimens are labeled at the bedside 7. Instruct patient/ patient client services representative about use of safety devices 8. Include patient/ patient client services representative in decisions related to safety Outcome: Progressing Note: Evaluation of progress towards goal: Patient remains injury free. Problem: Infection Goal: Absence of infection during hospitalization Description: Interventions: 1. Assess and monitor for signs and symptoms of infection 2. Monitor lab/diagnostic results 3. Monitor all insertion sites i.e., indwelling lines, tubes and drains 4. Monitor endotracheal (as able) and nasal secretions for changes in amount and color 5. Administer medications as ordered 6. Instruct and encourage patient and family to use good hand hygiene technique 7. Identify and instruct patient/patient client services representative in use of appropriate isolation precautions for identified infection/symptoms 8. Provide and discuss with patient/patient client services representative on educational MDRO sheet 9. Encourage and monitor nutritional status daily and consult clinical abstractor if indicated 10. Implement neutropenic guidelines as needed 11. Review exposure to history of communicable disease and recent travel history on admission 12. Encourage annual influenza vaccine 13. Encourage pneumonia vaccine Outcome: Progressing Note: Evaluation of progress towards goal: Patient is being monitored for s/sx of infection. Problem: Knowledge Deficit Goal: Patient/patient client services representative demonstrates understanding of disease process, treatment plan, medications, and discharge instructions Description: INTERVENTIONS 1. Complete learning assessment and assess knowledge base 2. Provide teaching at level of understanding 3. Provide teaching via preferred learning method(s) Outcome: Progressing Note: Evaluation of progress towards goal: Patient provided education on disease process, medications, treatment plan, and discharge. Problem: Discharge Planning Goal: Discharge to post-acute care, other facility, or home with appropriate resources Description: Patient's goal is: INTERVENTIONS 1. Conduct assessment to determine patient/family and health care team treatment goals, and need for post-acute services based on payer coverage, community resources, and patient preferences, and barriers to discharge 2. Coordinate with Social work, Care Navigation, and Utilization Review to arrange appropriate level of services according to patient's needs based on patient preference and payer coverage in collaboration with the physician and health care team 3. Address psychosocial, clinical, and financial barriers to discharge as identified in assessment in conjunction with the patient/family and health care team 4. Consult appropriate ancillary services (i.e.. PT/OT/ST, etc) as needed 5. Communicate with and update the patient/family, physician, and health care team regarding progress on the discharge plan 6. Identify discharge learning needs (meds, wound care, etc). 7. Arrange for needed discharge transportation as appropriate Outcome: Progressing Note: Evaluation of progress towards goal: Discharge planning started. Problem: Moderate - High Risk Fall Score Description: Soni Fall Score of =/> 25 or indicated by [facility] Assessment Goal: Patient should be free from fall Description: Interventions: 1. [place] to environment 2. Hourly rounds addressing the 4 P's (Pain, Positioning, Possessions, Potty) 3. Clear area of hazards (spills, clutter, electrical cords, unnecessary equipment) 4. Place equipment (bed & TV controls, call light, phone, urinal) within reach 5. Encourage patient to wear glasses and hearing aides as appropriate 6. Maintain bed in lowest position 7. Lock wheels on bed/wheelchair 8. Provide adequate lighting, including night light 9. Assess need for additional bedding, food/fluids, pain med's prior to sleep/routinely 10. Provide gripper slippers or personal non-skid footwear 11. Teach patient and patient client services representative to maintain environment for safety and engage in all aspects of fall prevention program 12. Remind patient to call for help before getting out of bed 13. Initiate bed/chair/exit alarms supportive devices as appropriate, (chair wedge, no-skid floor mat, raised edge mattress, hip protectors) 14. Locate patient bed assignment for optimal visualization 15. Evaluate and identify Safe Patient Handling Equipment needs 16. Provide supervision when out of bed or chair 17. Utilize gait belt as needed to assist with ambulation 18. Place adaptive equipment (cane, walker) within reach 19. Request patient client services representative bring adaptive equipment/mobility aids from home or obtain and provide as needed 20. Consult pharmacy regarding effects of med's affecting mobility, cognition, and alternatives 21. Obtain physician order for PT if risk factors associated with mobility are present 22. Obtain physician order for OT as appropriate 23. Utilize diversional activities 24. Educate patient and patient client services representative how to maintain a safe environment during visitation times (notify nurse prior to leaving bedside) 25. Consider appropriateness of medical or non-medical research assistant 26. Set up voiding schedule as appropriate (every 2 hours) Outcome: Progressing Note: Evaluation of progress towards goal: Patient remains free from falls. Problem: Musculoskeletal - Adult Goal: Maintain proper alignment of affected body part Description: INTERVENTIONS: 1. Support and protect limb and body alignment per provider's orders 2. Instruct and reinforce with patient and family use of appropriate assistive device and precautions (e.g. spinal or hip dislocation precautions) Outcome: Progressing Note: Evaluation of progress towards goal: Patient maintains proper anatomical alignment. Physical Therapy Evaluation Discharge Recommendations PT Recommendations: Home (use of RW with all mobility tasks) Home Recommendations: 24 hour caregiver support for: (IADLs and higher level mobility tasks) Post Discharge Therapy Recommendations: Home Physical Therapy 6 Clicks: Basic Mobility Turning from your back to your side while in a flat bed without using bed rails?: A little Moving from lying on your back to sitting on side of flat bed without using bed rails?: A little Moving to and from bed to a chair (including w/c)?: A little Standing up from a chair using your arms (e.g. w/c or bedside chair)?: A little To walk in hospital room?: A little Climbing 3-5 steps with a railing?: A little Scoring 6 Clicks: Basic Mobility Raw Score: 18 [facility] G Code Modifier: CK Therapy Plan Need for skilled Physical Therapy to address deficits in functional mobility due to a status decline resulting from recent admit on 12/25/23 with planned lumbar laminectomy at L2-L5 d/t radiculopathy of lumbar region. Past Medical History: Diagnosis Date Cancer of prostate ([facility]) 2017 prostatectomy Diverticulitis Diverticulosis Fecal impaction ([facility]) Inflammation of sacroiliac joint ([facility]) Knee pain Low back pain Lumbar disc disorder Neurogenic claudication 12/17/2023 Osteoarthritis SBO (small bowel obstruction) ([facility]) 10/04/2023 Shingles UTI (urinary tract infection) Varicose veins of right lower extremity with pain 02/08/2020 Visual impairment 12/20/2023 Past Surgical History: Procedure Laterality Date ABDOMINAL ADHESION SURGERY COLONOSCOPY COLONOSCOPY N/A 03/25/2023 Performed by Matt Campbell DO at [facility] HERNIA REPAIR Left inguinal HIP SURGERY Left LAMINECTOMY LUMBAR MULTI LEVEL / L2-L5 N/A 12/25/2023 Performed by Mayco Nolen MD at [facility] PROSTATE BIOPSY PROSTATECTOMY REVISION TOTAL KNEE ARTHROPLASTY Right 2012 due to swelling TOTAL KNEE ARTHROPLASTY Right 2012 PT Treatment/Interventions: Functional transfer training, LE strengthening/ROM, Endurance training, Patient/family training, Equipment eval/education, Balance, Bed mobility, Gait training, Stair training, Compensatory technique education, Coordination activities, Functional activities PT Frequency: 5-6days/week PT Duration: LOS Patient Response to Treatment: Tolerated evaluation without adverse reaction, Slow progress, decreased activity tolerance Assessment Patient Assessment Therapy Problem List: Decreased balance, Decreased endurance, Decreased gross motor, Decreased mobility, Decreased LE strength Patient Response to Treatment: Tolerated evaluation without adverse reaction, Slow progress, decreased activity tolerance Mood/Affect: Appropriate for circumstances Rehab Prognosis: Good, With continued PT status post acute discharge Visit RN Communication: Yes Medical Record Reviewed: Yes PT Type of Visit: Evaluation Precautions Activity: early mobility: pass Equipment: RW, gait belt, wound drain Telemetry/Defective Cigarette Slitter: Yes Oxygen Used: room air Other: fall risk, back precautions Pain Assessment Pain Assessment: 0-10 Pain Score: 7 Pain Type: Surgical pain Pain Location: Back Pain Intervention(s): Repositioned, Ambulation/increased activity Response to Interventions: Pain unchanged Home Living Type of Home: House Home Layout: One level, Performs ADLs on one level, Able to live on main level with bedroom/bathroom Stairs to Enter: 1 Hand Rails: None Stairs in Home: 3 to living room Hand Rails in Home: Right Bathroom Shower/Tub: Tub/shower unit Bathroom Toilet: Raised Bathroom Equipment: Shower chair, Hand-held shower (support near toilet) Home Equipment: Rolling walker, 4 Wheeled walker (3WW) Other : pt was using 3WW with all mobility tasks Prior Function Lives With: Spouse (works) Receives Help From: Neighbor (able to assist when spouse is at work) Level of Mobility: Independent with ADLs and functional transfers or gait Homemaking Assistance: Independent ADL / IADL Hand Dominance: Right Hearing / Speech / Vision Hearing: Within Functional Limits Speech: Within Functional Limits Current Vision: Wears glasses all the time Cognition Overall Cognitive Status: Within Functional Limits Orientation Level: Oriented X4 Sensation Overall Sensation Status: Exceptions to Within Functional Limits (n/t in bottom of the feet) Bed Mobility Supine to Sit: Contact guard assist Sit to Supine: Contact guard assist Other: assist for safety with cues for proper BUE placement and log technique while maintaining proper back precautions Transfers Sit to Stand: Contact guard assist Stand to Sit: Contact guard assist Other: assist needed for safety with cues for proepr BUE placement Gait Base of Support: Narrow Pattern: Decreased jozef, R Decreased heel strike, L Decreased heel strike Gait Assistance: Contact guard assist Assistive Device: Rolling walker Gait Distance: 100ft x2 Limiting Factors to Gait: Fatigue, Weakness, Decreased safety, Pain Stair Management Technique: One rail L up, Step to pattern Stair Management Assistance: Contact guard assist Number of Stairs: 3 Other: assist needed for safety and fall prevention with cues for proper gait pattern and sequencing Balance Sitting Balance: Static: Good Sitting Balance: Dynamic: Good Standing Balance: Static: Fair Standing Balance: Dynamic: Fair (-) Other: BUE support on RW with all standing tasks RLE Assessment: (grossly: 4-/5) LLE Assessment: (grossly: 4/5) Activity Tolerance Endurance: Tolerates <30 minutes activity WITHOUT vital sign changes Other: limited d/t weakness and fatigue Plan Physical Therapy Care Plan Physical Therapy Care Plan (Active) Template: PT - Physical Therapy Problem: Activity Tolerance Dates: Start: 12/26/23 Disciplines: PT Goal: Tolerate > 30 minutes of activity WITH rest breaks Dates: Start: 12/26/23 Expected End: 01/24/24 Description: Goal Description: Disciplines: PT Problem: Bed Mobility Dates: Start: 12/26/23 Disciplines: PT Goal: Patient will perform bed mobility with Modified Medina Dates: Start: 12/26/23 Expected End: 01/24/24 Description: Goal Description: with proper BUE placement and sequencing Disciplines: PT Problem: Gait Dates: Start: 12/26/23 Disciplines: PT Goal: Patient will perform gait with Modified Medina Dates: Start: 12/26/23 Expected End: 01/24/24 Description: With__RW__,__150__feet Goal Description: with proper gait pattern and safety awareness Disciplines: PT Problem: Stairs/Curb Dates: Start: 12/26/23 Disciplines: PT Goal: Patient will perform stairs/curb with Modified Medina Dates: Start: 12/26/23 Expected End: 01/24/24 Description: __3___steps,__right___hand rails Goal Description: for safer entry into home Disciplines: PT Problem: Standing Balance Dates: Start: 12/26/23 Disciplines: PT Goal: Improve balance to normal Dates: Start: 12/26/23 Expected End: 01/24/24 Description: Static/Dynamic to reduce risk of falls with all functional tasks Disciplines: PT Problem: Strength Dates: Start: 12/26/23 Disciplines: PT Goal: Improve strength Dates: Start: 12/26/23 Expected End: 01/24/24 Description: Of extremity/ location: BLE strength to WFL To facilitate: Safer functional mobility tasks Disciplines: PT Problem: Transfers Dates: Start: 12/26/23 Disciplines: PT Goal: Patient will perform transfers with Modified Medina Dates: Start: 12/26/23 Expected End: 01/24/24 Description: Goal Description: with proper BUE placement and sequencing Disciplines: PT Physical Therapy Care Plan (Resolved) There are no resolved problems. Principal Problem: Radiculopathy, lumbar region Active Problems: Neurogenic claudication Images from the original note were not included. DISCHARGE PLANNING NOTE Services Requested: Services Requested Discharge Disposition: Home with self care Does the patient need discharge transportation arranged?: No Mobility issues discussed with transportation provider: No Patient choice offered: Yes List Provided: Patient declined Initial DC Assessment Completed: Yes Patient Goals: Goals: Goals <enter goal here> (pt-stated) Evaluation of progress towards goal: Patient will discharge home with , self care. - Jace Silva RN 12/26/23 11:57 AM Met with patient to review transitions of care. Pt lives with his in a one story home. There are three steps to enter with a iron railing. He states that his works during the day. Explained that PT has been ordered and educated him on different levels of therapy that can be recommended. Pt admits that his legs feel Wobbly. But declined going to rehab or home care. PCP is Sumanth Hill. Pt will make his own follow up appts. He has a wheeled walker at home. Pt has transportation and can get to his follow up appts. He understands and can afford his medications. He denies smoking, drinking alcohol or doing illciit drugs. Problem: Pain Goal: Patient goal is pain score less than 4, able to rest, and participant in treatment plan as appropriate Description: INTERVENTIONS: 1. Encourage patient or legal client services representative to report early pain and ask for pain medicine when needed 2. Assess pain using appropriate pain scale and include the scale used when documenting 3. Administer analgesics based on type and severity of pain and evaluate response within appropriate time frame 4. Implement non-pharmacological measures as appropriate and evaluate response 5. Consider cultural and social influences on pain and pain management 6. Notify LIP if interventions ineffective or patient reports new pain 7. Monitor vital signs including pulse ox, end-tidal CO2 based on pain intervention 8. Reassess pain per policy 9. Teach patient or legal client services representative interventions for comforting Outcome: Progressing Note: Evaluation of progress towards goal: PRN pain meds given Problem: Infection Goal: Absence of infection during hospitalization Description: Interventions: 1. Assess and monitor for signs and symptoms of infection 2. Monitor lab/diagnostic results 3. Monitor all insertion sites i.e., indwelling lines, tubes and drains 4. Monitor endotracheal (as able) and nasal secretions for changes in amount and color 5. Administer medications as ordered 6. Instruct and encourage patient and family to use good hand hygiene technique 7. Identify and instruct patient/patient client services representative in use of appropriate isolation precautions for identified infection/symptoms 8. Provide and discuss with patient/patient client services representative on educational MDRO sheet 9. Encourage and monitor nutritional status daily and consult clinical abstractor if indicated 10. Implement neutropenic guidelines as needed 11. Review exposure to history of communicable disease and recent travel history on admission 12. Encourage annual influenza vaccine 13. Encourage pneumonia vaccine Outcome: Progressing Note: Evaluation of progress towards goal: labs reviewed Problem: Discharge Planning Goal: Discharge to post-acute care, other facility, or home with appropriate resources Description: Patient's goal is: INTERVENTIONS 1. Conduct assessment to determine patient/family and health care team treatment goals, and need for post-acute services based on payer coverage, community resources, and patient preferences, and barriers to discharge 2. Coordinate with Social work, Care Navigation, and Utilization Review to arrange appropriate level of services according to patient's needs based on patient preference and payer coverage in collaboration with the physician and health care team 3. Address psychosocial, clinical, and financial barriers to discharge as identified in assessment in conjunction with the patient/family and health care team 4. Consult appropriate ancillary services (i.e.. PT/OT/ST, etc) as needed 5. Communicate with and update the patient/family, physician, and health care team regarding progress on the discharge plan 6. Identify discharge learning needs (meds, wound care, etc). 7. Arrange for needed discharge transportation as appropriate Outcome: Progressing Note: Evaluation of progress towards goal: progressing Problem: Musculoskeletal - Adult Goal: Maintain proper alignment of affected body part Description: INTERVENTIONS: 1. Support and protect limb and body alignment per provider's orders 2. Instruct and reinforce with patient and family use of appropriate assistive device and precautions (e.g. spinal or hip dislocation precautions) Outcome: Progressing Note: Evaluation of progress towards goal: progressing with walker NEUROSURGERY OPERATIVE NOTE Patient Name: Regan Green Patient Patient Date of : 1950 Date of Surgery: 12/25/2023 Preoperative Diagnosis: Degenerative lumbar spondylosis L2-L5 with neural compression and neurogenic claudication Postoperative Diagnosis: Same as above Surgeon: Mayco Nolen MD Anesthesia: General endotracheal Procedures Performed: (1) complete L2, L3, L4, L5 laminectomy (2) partial medial facetectomy and bilateral foraminotomies L2-3, L3-4, and L4-5 Estimated Blood Loss: 100 mL Indications and Brief History: 73-year-old male presented with neurogenic claudication. MRI demonstrated degenerative spondylosis with significant neural compression. He failed conservative management, therefore, lumbar decompressive laminectomy was offered. Dynamic imaging studies demonstrated minimal to no instability so it was elected not to offer posterolateral fusion. Surgical risks were explained and consent was obtained. Detailed Description of Operative Note: Patient was brought to the operating room, anesthetized, and positioned prone on the Unruly table. C-arm was utilized to michael a midline incision. His back was prepped and draped in sterile fashion. A surgical pause was completed and answered. He received antibiotic prophylaxis. Incision line was infiltrated with a cocktail of lidocaine and epinephrine. Sharp incision was made in the midline. Subperiosteal dissection of the paraspinal muscles was completed with Bovie and Shi elevators. Self-retaining retractors were placed. The spinous processes of L2, L3, L4, and L5 were removed with Leksell rongeurs. Full laminectomies were then completed at L2, L3, L4, and L5 in the standard manner using a high-speed drill and Kerrison punches. The medial portion of the facet complexes at L2-3, L3-4, and L4-5 were then removed with Kerrison rongeurs and bilateral foraminotomies were completed at the above-mentioned levels using Kerrison punches. I then checked with a Clearwater elevator and confirmed that there was no residual lateral recess or foraminal stenosis. Epidural venous bleeding was controlled with Gelfoam soaked with thrombin. Inspection of the dura did not reveal any rents or mateo CSF leak. The cavity was irrigated with antibiotic infused saline. Hemostasis was achieved by coagulating the bleeding muscle points. A drain was placed in the epidural space and tunneled. The incision was then closed in standard layered fashion and dressed. The patient was awakened, extubated, and transported to the recovery room with stable vital signs. Complications: None. Brief Post-op Note NAME: Regan Green : 1950 PROCEDURE DATE: 12/25/2023 Surgeon: Surgeon(s) and Role: * Mayco Nolen MD - Primary Assistants: None Staff: Drafter [employer] Primary: Lily Glasgow RN Drafter [employer] Relief: Dina Roy RN Scrub Person: Janak Holman CST Pre-op Diagnosis: Radiculopathy, lumbar region [M54.16] Neurogenic claudication [R29.818] Procedure Details: Procedure(s): LAMINECTOMY LUMBAR MULTI LEVEL / L2-L5 - Wound Class: Clean - Incision Closure: Deep and Superficial Layers Anesthesia Type: General Post-Op Diagnosis Codes: * Radiculopathy, lumbar region [M54.16] * Neurogenic claudication [R29.818] Complications: none Additions (Drains, Specimens, Implants): Drains: Closed/Suction Drain 12/25/23 1 Inferior;Midline Back Accordion (Active) Drainage Appearance Bloody 12/26/23444 Output (mL) 50 mL 12/26/23 0445 Implants: Implant Name Type Inv. Item Serial No. Preconstruction Manager Lot No. LRB No. Used Action PATCH DURA 1X1IN DRMTRX-ONLAY + CLGN RGNRT MEMBR STRL RPL [id number] - [id number] Graft PATCH DURA 1X1IN DRMTRX-ONLAY + CLGN RGNRT MEMBR STRL RPL [id number] PAULINA [employer]ANIOM[employer] [id number] N/A 1 Implanted Estimated Blood Loss: 100 ml OB Surgical Procedure Blood Loss: Anesthesia EBL: * No values recorded between 12/25/2023 3:09 PM and 12/25/2023 4:54 PM * OB QBL: * No values recorded between 12/25/2023 3:09 PM and 12/25/2023 4:54 PM * Condition: stable Findings: severe lateral recess stenosis Anesthesia review: Lumb Patel: 12/25: TTH: GA. only hx prostate CA. No c/o CP or SOB. EKGs: LAst PCP note Reviewed and accepted by Dr Vásquez with no further orders documented in this encounter [facility] 12-27-2023 Hospital course Narrative Images from the original note were not included. [facility] [address], [address] [place] [address] * NEUROSURGERY DISCHARGE SUMMARY Patient: Regan Green Date of : 1950 Acct: [id number] Primary Care Physician: Sumanth Hill MD Admit date: 12/25/2023 12/25/2023 12:50 PM Discharge date: 10/26/24 Discharge Diagnoses: Radiculopathy, lumbar region Principal Problem: Radiculopathy, lumbar region Active Problems: Neurogenic claudication Discharge Medications: Medication List START taking these medications Instructions Last Dose Given Next Dose Due acetaminophen 325 mg tablet Commonly known as: TYLENOL Take 2 tablets (650 mg total) by mouth every 4 (four) hours as needed for pain or fever. methocarbamoL 500 mg tablet Commonly known as: ROBAXIN Take 1 tablet (500 mg total) by mouth 3 (three) times a day as needed for muscle spasms for up to 14 days. naloxone 4 mg/actuation spray,non-aerosol nasal spray Commonly known as: NARCAN Administer 1 spray (4 mg total) into alternating nostrils as needed for opioid reversal. oxyCODONE 5 mg immediate release tablet Commonly known as: ROXICODONE Take 1-2 tablets (5-10 mg total) by mouth every 6 (six) hours as needed for pain for up to 7 days. Max Daily Amount: 40 mg CONTINUE taking these medications Instructions Last Dose Given Next Dose Due B-complex with vitamin C tablet Take 2 tablets by mouth in the morning. calcium carbonate-vitamin D3 500 mg(1,250mg) -200 units per tablet Commonly known as: OSCAL 500 + D Take 1 tablet by mouth in the morning and 1 tablet in the evening. Take with meals. CENTRUM SILVER MEN ORAL Take 1 tablet by mouth once daily. gabapentin 600 mg tablet Commonly known as: NEURONTIN Take 1 tablet (600 mg total) by mouth in the morning and 1 tablet (600 mg total) before bedtime. STOP taking these medications diclofenac 75 mg EC tablet Commonly known as: VOLTAREN [employer] HEALTH ORAL OSTEO BI-FLEX ORAL oxyCODONE-acetaminophen 5-325 mg per tablet Commonly known as: PERCOCET tiZANidine 4 mg tablet Commonly known as: ZANAFLEX Where to Get Your Medications These medications were sent to [facility] [id number] [place], [place] - [address] [facility] [id number] methocarbamoL 500 mg tablet naloxone 4 mg/actuation spray,non-aerosol nasal spray oxyCODONE 5 mg immediate release tablet Information about where to get these medications is not yet available Ask your nurse or doctor about these medications acetaminophen 325 mg tablet Diet: Adult diet Regular Texture Activity: oob as tolerated Follow-up: Follow up as scheduled with Dr. Nolen Procedures: L2-L5 laminectomy 12/25/23 Incision: dissolvable sutures, cdi. Drain site cdi with dressing. No drainage noted. Drain removed 12/27/23 Hospital Course: clinical course has been stable Physical Exam: Pt seen and evaluated on morning rounds. Awake, alert and oriented with clear appropriate speech. Pre-op symptoms are improved after surgery. Surgical pain is well controlled with oral pain medications. Pt is eating, drinking and voiding without difficulty with + flatus. Ambulating in halls with steady gait. Surgical incision well approximated and intact with sutures, no incisional concerns. Criteria for discharge has been met. Verbal discharge instructions reviewed, all questions have been answered. Pt verbalized understanding. OARRS report has been reviewed and appropriate. Written discharge instructions and a prescription for roxicodone for pain control will be provided at the time of discharge. Pt will be discharged to home later today with no needs. Follow up appointment is in place and appointment details have been reviewed. Disposition: home Condition: stable JOSEMANUEL Sandoval The patient has been started on an opiate pain medication for a condition that is expected to last longer than seven days. Alternatives to opiate medication have been considered and discussed with the patient and it has been agreed upon that opiates are needed in this case. This initial prescription for this problem has been written for 7 days. The reasons for opiate pain medication therapy in this case is acute postoperative pain. The risks versus benefits of opiate therapy, and extended opiate therapy have been discussed with the patient and have been deemed acceptable and clinically appropriate. JOSEMANUEL Lainez Neurosurgery [facility] Patient Touch 12/27/23 12:28 PM JOSEMANUEL Sandoval 12/27/23 1231 documented in this encounter [facility] 12-27-2023 Hospital Discharge instructions JOSEMANUEL Sandoval - 12/27/2023 12:00 PM EST Neurosurgery Discharge Instructions Special Medication Instructions: No Aspirin, Anti-Inflammatories, Anti-Platelet agents or other blood thinning medications for 7 days from date of surgery No alcohol Continue stool softeners while taking narcotic pain medication. Add laxatives as needed Activities: No lifting greater than 1-2 lbs for 14 days No driving for 7 days or while taking pain medication May shower, no tub baths or swimming for 14 days from date of surgery Avoid bending, twisting and strenuous activity Take short frequent walks during the day Stairs as tolerated, take your time Notify Doctor if you notice: Increased pain Redness, swelling, bleeding or drainage from incision Temperature 101 degrees or above Numbness, tingling or decreased strength different than before your surgery or new since your surgery. In case of emergency, call 911 immediately! If 911 is not available, call your local emergency medical system for help Wound Care: Change dressing daily and as needed for 7 days or until sutures/adri are removed. Do not apply creams or ointments to your incision Shower daily with old dressing in place to protect incision Change dressing after your shower If surgical tapes rather than sutures/adri are present over your incision, they will likely loosen and fall off after several days. If the tapes are still in place 7 days after your surgery, gently remove at that time. Other Instructions: Call [facility] Neurosurgery with any questions, . The following attachments cannot be sent through Care Everywhere.Radiculopathy Discharge Instructions (Italian)documented in this encounter [facility] 12-27-2023 Plan of care note Problem: Pain Goal: Patient goal is pain score less than 4, able to rest, and participant in treatment plan as appropriate Description: INTERVENTIONS: 1. Encourage patient or legal client services representative to report early pain and ask for pain medicine when needed 2. Assess pain using appropriate pain scale and include the scale used when documenting 3. Administer analgesics based on type and severity of pain and evaluate response within appropriate time frame 4. Implement non-pharmacological measures as appropriate and evaluate response 5. Consider cultural and social influences on pain and pain management 6. Notify LIP if interventions ineffective or patient reports new pain 7. Monitor vital signs including pulse ox, end-tidal CO2 based on pain intervention 8. Reassess pain per policy 9. Teach patient or legal client services representative interventions for comforting Outcome: Progressing Note: Evaluation of progress towards goal: Patient states pain is 7/10 at this time. Appropriate interventions provided to patient. Plan of care ongoing. Problem: Safety Goal: Patient will be injury free during hospitalization Description: INTERVENTIONS: 1. Assess patient's risk for falls and implement fall prevention plan of care per policy 2. Provide and maintain a safe environment 3. Proper use of double Identifiers 4. Medication administration using the 5 rights 5. Hand hygiene 6. Specimens are labeled at the bedside 7. Instruct patient/ patient client services representative about use of safety devices 8. Include patient/ patient client services representative in decisions related to safety Outcome: Progressing Note: Evaluation of progress towards goal: Patient walkway in clear, and well lit. Will keep patient's environment safe. Plan of care ongoing. Problem: Infection Goal: Absence of infection during hospitalization Description: Interventions: 1. Assess and monitor for signs and symptoms of infection 2. Monitor lab/diagnostic results 3. Monitor all insertion sites i.e., indwelling lines, tubes and drains 4. Monitor endotracheal (as able) and nasal secretions for changes in amount and color 5. Administer medications as ordered 6. Instruct and encourage patient and family to use good hand hygiene technique 7. Identify and instruct patient/patient client services representative in use of appropriate isolation precautions for identified infection/symptoms 8. Provide and discuss with patient/patient client services representative on educational MDRO sheet 9. Encourage and monitor nutritional status daily and consult clinical abstractor if indicated 10. Implement neutropenic guidelines as needed 11. Review exposure to history of communicable disease and recent travel history on admission 12. Encourage annual influenza vaccine 13. Encourage pneumonia vaccine Outcome: Progressing Note: Evaluation of progress towards goal: Patient denies fever. No purulent drainage noted at site. Plan of care ongoing. Problem: Knowledge Deficit Goal: Patient/patient client services representative demonstrates understanding of disease process, treatment plan, medications, and discharge instructions Description: INTERVENTIONS 1. Complete learning assessment and assess knowledge base 2. Provide teaching at level of understanding 3. Provide teaching via preferred learning method(s) Outcome: Progressing Note: Evaluation of progress towards goal: Will continue to assess, and will educate patient until verbalizing a level of understanding. Problem: Discharge Planning Goal: Discharge to post-acute care, other facility, or home with appropriate resources Description: Patient's goal is: INTERVENTIONS 1. Conduct assessment to determine patient/family and health care team treatment goals, and need for post-acute services based on payer coverage, community resources, and patient preferences, and barriers to discharge 2. Coordinate with Social work, Care Navigation, and Utilization Review to arrange appropriate level of services according to patient's needs based on patient preference and payer coverage in collaboration with the physician and health care team 3. Address psychosocial, clinical, and financial barriers to discharge as identified in assessment in conjunction with the patient/family and health care team 4. Consult appropriate ancillary services (i.e.. PT/OT/ST, etc) as needed 5. Communicate with and update the patient/family, physician, and health care team regarding progress on the discharge plan 6. Identify discharge learning needs (meds, wound care, etc). 7. Arrange for needed discharge transportation as appropriate Outcome: Progressing Note: Evaluation of progress towards goal: Patient will be discharged with appropriate resources. Problem: Moderate - High Risk Fall Score Description: Soni Fall Score of =/> 25 or indicated by [facility] Assessment Goal: Patient should be free from fall Description: Interventions: 1. [place] to environment 2. Hourly rounds addressing the 4 P's (Pain, Positioning, Possessions, Potty) 3. Clear area of hazards (spills, clutter, electrical cords, unnecessary equipment) 4. Place equipment (bed & TV controls, call light, phone, urinal) within reach 5. Encourage patient to wear glasses and hearing aides as appropriate 6. Maintain bed in lowest position 7. Lock wheels on bed/wheelchair 8. Provide adequate lighting, including night light 9. Assess need for additional bedding, food/fluids, pain med's prior to sleep/routinely 10. Provide gripper slippers or personal non-skid footwear 11. Teach patient and patient client services representative to maintain environment for safety and engage in all aspects of fall prevention program 12. Remind patient to call for help before getting out of bed 13. Initiate bed/chair/exit alarms supportive devices as appropriate, (chair wedge, no-skid floor mat, raised edge mattress, hip protectors) 14. Locate patient bed assignment for optimal visualization 15. Evaluate and identify Safe Patient Handling Equipment needs 16. Provide supervision when out of bed or chair 17. Utilize gait belt as needed to assist with ambulation 18. Place adaptive equipment (cane, walker) within reach 19. Request patient client services representative bring adaptive equipment/mobility aids from home or obtain and provide as needed 20. Consult pharmacy regarding effects of med's affecting mobility, cognition, and alternatives 21. Obtain physician order for PT if risk factors associated with mobility are present 22. Obtain physician order for OT as appropriate 23. Utilize diversional activities 24. Educate patient and patient client services representative how to maintain a safe environment during visitation times (notify nurse prior to leaving bedside) 25. Consider appropriateness of medical or non-medical research assistant 26. Set up voiding schedule as appropriate (every 2 hours) Outcome: Progressing Note: Evaluation of progress towards goal: Patient denies fall during shift. Patient instructed to use call light to call nurse. Patient environment clear of clutter. Plan of care ongoing. Problem: Musculoskeletal - Adult Goal: Maintain proper alignment of affected body part Description: INTERVENTIONS: 1. Support and protect limb and body alignment per provider's orders 2. Instruct and reinforce with patient and family use of appropriate assistive device and precautions (e.g. spinal or hip dislocation precautions) Outcome: Progressing Note: Evaluation of progress towards goal: Plan of care ongoing. [facility] [place] 12-27-2023 Progress note Formatting of t his note is different from the original. Physical Therapy CANCEL - Deferred Per RN pt is dizzy and diaphoretic laying supine in bed. Will hold PT treatment and attempt to complete session as able. [facility] [place] 12-27-2023 History of Present illness Narrative Images from the original note were not included. [facility] [address] [place] [address], [address] [place] [address] * NEUROSURGERY DAILY PROGRESS NOTE DATE:12/27/2023 PATIENT'S NAME: Regan Green PATIENT'S PATIENT'S : 1950 PROCEDURE POD#2 L2-L5 laminectomy EVENTS LAST 24 HOURS / SUBJECTIVE No significant events overnight. Passing flatus, denies abdominal pain or nausea, no chest pain or shortness of breath, no leg or calf pain. Urinating well and voiding on his own with no issues. States improvement in his radiculopathy that was present pre operatively. C/o mild-moderate incisional pain. Ambulating in halls with walker. PHYSICAL EXAM Temp: [36.9 C (98.4 F)-37.9 C (100.2 F)] 37.9 C (100.2 F) Pulse: [81-105] 100 Resp: [14-16] 14 BP: (97-138)/(53-87) 97/53 SpO2: [93 %-95 %] 94 % O2 Device: None (Room air) O2 Flow Rate (L/min): [0 L/min] 0 L/min Physical Exam Vitals and nursing note reviewed. Constitutional: Appearance: Normal appearance. HENT: Head: Normocephalic and atraumatic. Nose: Nose normal. Mouth/Throat: Mouth: Mucous membranes are moist. Eyes: Extraocular Movements: Extraocular movements intact. Pupils: Pupils are equal, round, and reactive to light. Cardiovascular: Rate and Rhythm: Normal rate and regular rhythm. Pulses: Normal pulses. Heart sounds: Normal heart sounds. Pulmonary: Effort: Pulmonary effort is normal. Abdominal: General: Abdomen is flat. Palpations: Abdomen is soft. Musculoskeletal: General: Normal range of motion. Cervical back: Normal range of motion. Skin: General: Skin is warm and dry. Capillary Refill: Capillary refill takes less than 2 seconds. Neurological: General: No focal deficit present. Mental Status: He is alert. Sensory: No sensory deficit. Comments: No numbness or tingling, unsteady gait and generalized weakness with ambulation. Psychiatric: Mood and Affect: Mood normal. Drain output: 60ml overnight. Drain to gravity Incision: CDI with sutures LABORATORY DATA Results from last 7 days Lab Units 12/26/23 0342 12/20/23 1505 SODIUM mmol/L 140 141 POTASSIUM mmol/L 4.6 5.0 CREATININE mg/dL 0.63 0.76 GLUCOSE mg/dL 140* 85 CALCIUM mg/dL 9.4 10.1 APTT sec -- 31 INR -- 1.0 WBC X10E9/L 12.6* 7.1 HEMATOCRIT % 37.5* 45.1 HEMOGLOBIN g/dL 12.7* 15.5 PLATELETS X10E9/L 264 269 ASSESSMENT Lumbar radiculopathy S/p L2-L5 laminectomy PLAN - Remove surgical drain - SCD's for DVT prophylaxis - Encourage mobility - Encourage IS -Tolerating diet, Bowel regimen - Pain control - Continue current regimen. Plan to utilize PO and limit IV narcotics - PT/OT - give 1L fluid for symptomatic orthostatic hypotension this am - DC Planning - Home later today JOSEMANUEL Lainez [facility] Patient Touch 12/27/23 6:04 AM To find out which ESTEFANY is on for the day please go to [employer] and use log in [employer] and search for [facility] JOSEMANUEL Sandoval 12/26/23 1010 JOSEMANUEL Sandoval 12/27/23 1228 Images from the original note were not included. [facility] [address] [place] [address], [address] [place] [address] * NEUROSURGERY DAILY PROGRESS NOTE DATE:12/26/2023 PATIENT'S NAME: Regan Green PATIENT'S PATIENT'S : 1950 PROCEDURE POD#1 L2-L5 laminectomy EVENTS LAST 24 HOURS / SUBJECTIVE No significant events overnight, was admitted to obs unit from PACU. Passing flatus, denies abdominal pain or nausea, no chest pain or shortness of breath, no leg or calf pain. Urinating well and voiding on his own with no issues. States improvement in his radiculopathy that was present pre operatively. C/o mild-moderate incisional pain. PHYSICAL EXAM Temp: [36 C (96.8 F)-37 C (98.6 F)] 37 C (98.6 F) Pulse: [73-103] 103 Resp: [10-20] 16 BP: (101-130)/(59-89) 101/64 SpO2: [91 %-100 %] 95 % O2 Device: None (Room air) O2 Flow Rate (L/min): [0 L/min-3 L/min] 0 L/min Physical Exam Vitals and nursing note reviewed. Constitutional: Appearance: Normal appearance. HENT: Head: Normocephalic and atraumatic. Nose: Nose normal. Mouth/Throat: Mouth: Mucous membranes are moist. Eyes: Extraocular Movements: Extraocular movements intact. Pupils: Pupils are equal, round, and reactive to light. Cardiovascular: Rate and Rhythm: Normal rate and regular rhythm. Pulses: Normal pulses. Heart sounds: Normal heart sounds. Pulmonary: Effort: Pulmonary effort is normal. Abdominal: General: Abdomen is flat. Palpations: Abdomen is soft. Musculoskeletal: General: Normal range of motion. Cervical back: Normal range of motion. Skin: General: Skin is warm and dry. Capillary Refill: Capillary refill takes less than 2 seconds. Neurological: General: No focal deficit present. Mental Status: He is alert. Sensory: No sensory deficit. Comments: No numbness or tingling, unsteady gait and generalized weakness with ambulation. Psychiatric: Mood and Affect: Mood normal. Drain output: 50ml overnight total since surgery. Drain to gravity Incision: CDI with sutures LABORATORY DATA Results from last 7 days Lab Units 12/26/23 0342 12/20/23 1505 SODIUM mmol/L 140 141 POTASSIUM mmol/L 4.6 5.0 CREATININE mg/dL 0.63 0.76 GLUCOSE mg/dL 140* 85 CALCIUM mg/dL 9.4 10.1 APTT sec -- 31 INR -- 1.0 WBC X10E9/L 12.6* 7.1 HEMATOCRIT % 37.5* 45.1 HEMOGLOBIN g/dL 12.7* 15.5 PLATELETS X10E9/L 264 269 IMAGING Fluoroscopy guidance spine puncture operative Result Date: 12/25/2023 FL FLUORO GUIDANCE SPINAL PUNCTURE OPERATIVE INDICATION: Back pain FINDINGS: Intraoperative fluoroscopy for L2-L5 laminectomy. No radiologist present during the examination. Reference air kerma: 1.38 mGy Fluoroscopic time: 5 seconds Number of fluoroscopic images: 3 IMPRESSION: Intraoperative fluoroscopy provided as above. See operative report for additional details. Finalized by José Miguel Avelar on 12/25/2023 4:51 PM ASSESSMENT Lumbar radiculopathy S/p L2-L5 laminectomy PLAN - Monitor surgical drain output, keep to gravity. If output remaisn minimal possible removal later this afternoon - SCD's for DVT prophylaxis - Encourage mobility - Encourage IS -Tolerating diet, Bowel regimen - Pain control - Continue current regimen. Plan to utilize PO and limit IV narcotics - PT/OT consult - Unrinating well - DC Planning - If doing well and ambulating, pain controlled, passing flatus and drain removed later possible dc home later vs in AM JOSEMANUEL Lainez [facility] Patient Touch 12/26/23 9:51 AM To find out which ESTEFANY is on for the day please go to [employer] and use log in [employer] and search for [facility] Neuro[facility] JOSEMANUEL Sandoval 12/26/23 1010 documented in this encounter [email or web address] [facility] 12-27-2023 Plan of care note Problem: Pain Goal: Patient goal is pain score less than 4, able to rest, and participant in treatment plan as appropriate Description: INTERVENTIONS: 1. Encourage patient or legal client services representative to report early pain and ask for pain medicine when needed 2. Assess pain using appropriate pain scale and include the scale used when documenting 3. Administer analgesics based on type and severity of pain and evaluate response within appropriate time frame 4. Implement non-pharmacological measures as appropriate and evaluate response 5. Consider cultural and social influences on pain and pain management 6. Notify LIP if interventions ineffective or patient reports new pain 7. Monitor vital signs including pulse ox, end-tidal CO2 based on pain intervention 8. Reassess pain per policy 9. Teach patient or legal client services representative interventions for comforting Outcome: Progressing Note: Evaluation of progress towards goal: pain well controled with prn medications Problem: Safety Goal: Patient will be injury free during hospitalization Description: INTERVENTIONS: 1. Assess patient's risk for falls and implement fall prevention plan of care per policy 2. Provide and maintain a safe environment 3. Proper use of double Identifiers 4. Medication administration using the 5 rights 5. Hand hygiene 6. Specimens are labeled at the bedside 7. Instruct patient/ patient client services representative about use of safety devices 8. Include patient/ patient client services representative in decisions related to safety Outcome: Progressing Note: Evaluation of progress towards goal: safety maintained Problem: Infection Goal: Absence of infection during hospitalization Description: Interventions: 1. Assess and monitor for signs and symptoms of infection 2. Monitor lab/diagnostic results 3. Monitor all insertion sites i.e., indwelling lines, tubes and drains 4. Monitor endotracheal (as able) and nasal secretions for changes in amount and color 5. Administer medications as ordered 6. Instruct and encourage patient and family to use good hand hygiene technique 7. Identify and instruct patient/patient client services representative in use of appropriate isolation precautions for identified infection/symptoms 8. Provide and discuss with patient/patient client services representative on educational MDRO sheet 9. Encourage and monitor nutritional status daily and consult clinical abstractor if indicated 10. Implement neutropenic guidelines as needed 11. Review exposure to history of communicable disease and recent travel history on admission 12. Encourage annual influenza vaccine 13. Encourage pneumonia vaccine Outcome: Progressing Note: Evaluation of progress towards goal: patient free from s/s of infection Problem: Knowledge Deficit Goal: Patient/patient client services representative demonstrates understanding of disease process, treatment plan, medications, and discharge instructions Description: INTERVENTIONS 1. Complete learning assessment and assess knowledge base 2. Provide teaching at level of understanding 3. Provide teaching via preferred learning method(s) Outcome: Progressing Note: Evaluation of progress towards goal: patient verbalized understanding of care plan Problem: Discharge Planning Goal: Discharge to post-acute care, other facility, or home with appropriate resources Description: Patient's goal is: INTERVENTIONS 1. Conduct assessment to determine patient/family and health care team treatment goals, and need for post-acute services based on payer coverage, community resources, and patient preferences, and barriers to discharge 2. Coordinate with Social work, Care Navigation, and Utilization Review to arrange appropriate level of services according to patient's needs based on patient preference and payer coverage in collaboration with the physician and health care team 3. Address psychosocial, clinical, and financial barriers to discharge as identified in assessment in conjunction with the patient/family and health care team 4. Consult appropriate ancillary services (i.e.. PT/OT/ST, etc) as needed 5. Communicate with and update the patient/family, physician, and health care team regarding progress on the discharge plan 6. Identify discharge learning needs (meds, wound care, etc). 7. Arrange for needed discharge transportation as appropriate Outcome: Progressing Note: Evaluation of progress towards goal: patient to return home on d/c Problem: Moderate - High Risk Fall Score Description: Soni Fall Score of =/> 25 or indicated by [facility] Assessment Goal: Patient should be free from fall Description: Interventions: 1. [place] to environment 2. Hourly rounds addressing the 4 P's (Pain, Positioning, Possessions, Potty) 3. Clear area of hazards (spills, clutter, electrical cords, unnecessary equipment) 4. Place equipment (bed & TV controls, call light, phone, urinal) within reach 5. Encourage patient to wear glasses and hearing aides as appropriate 6. Maintain bed in lowest position 7. Lock wheels on bed/wheelchair 8. Provide adequate lighting, including night light 9. Assess need for additional bedding, food/fluids, pain med's prior to sleep/routinely 10. Provide gripper slippers or personal non-skid footwear 11. Teach patient and patient client services representative to maintain environment for safety and engage in all aspects of fall prevention program 12. Remind patient to call for help before getting out of bed 13. Initiate bed/chair/exit alarms supportive devices as appropriate, (chair wedge, no-skid floor mat, raised edge mattress, hip protectors) 14. Locate patient bed assignment for optimal visualization 15. Evaluate and identify Safe Patient Handling Equipment needs 16. Provide supervision when out of bed or chair 17. Utilize gait belt as needed to assist with ambulation 18. Place adaptive equipment (cane, walker) within reach 19. Request patient client services representative bring adaptive equipment/mobility aids from home or obtain and provide as needed 20. Consult pharmacy regarding effects of med's affecting mobility, cognition, and alternatives 21. Obtain physician order for PT if risk factors associated with mobility are present 22. Obtain physician order for OT as appropriate 23. Utilize diversional activities 24. Educate patient and patient client services representative how to maintain a safe environment during visitation times (notify nurse prior to leaving bedside) 25. Consider appropriateness of medical or non-medical research assistant 26. Set up voiding schedule as appropriate (every 2 hours) Outcome: Progressing Note: Evaluation of progress towards goal: patient remains free from falls Problem: Musculoskeletal - Adult Goal: Maintain proper alignment of affected body part Description: INTERVENTIONS: 1. Support and protect limb and body alignment per provider's orders 2. Instruct and reinforce with patient and family use of appropriate assistive device and precautions (e.g. spinal or hip dislocation precautions) Outcome: Progressing Note: Evaluation of progress towards goal: patient maintaining body alignment per self [facility] 12-26-2023 Plan of care note Problem: Pain Goal: Patient goal is pain score less than 4, able to rest, and participant in treatment plan as appropriate Description: INTERVENTIONS: 1. Encourage patient or legal client services representative to report early pain and ask for pain medicine when needed 2. Assess pain using appropriate pain scale and include the scale used when documenting 3. Administer analgesics based on type and severity of pain and evaluate response within appropriate time frame 4. Implement non-pharmacological measures as appropriate and evaluate response 5. Consider cultural and social influences on pain and pain management 6. Notify LIP if interventions ineffective or patient reports new pain 7. Monitor vital signs including pulse ox, end-tidal CO2 based on pain intervention 8. Reassess pain per policy 9. Teach patient or legal client services representative interventions for comforting Outcome: Progressing Note: Evaluation of progress towards goal: Patient is able to rest and participate in care. Problem: Safety Goal: Patient will be injury free during hospitalization Description: INTERVENTIONS: 1. Assess patient's risk for falls and implement fall prevention plan of care per policy 2. Provide and maintain a safe environment 3. Proper use of double Identifiers 4. Medication administration using the 5 rights 5. Hand hygiene 6. Specimens are labeled at the bedside 7. Instruct patient/ patient client services representative about use of safety devices 8. Include patient/ patient client services representative in decisions related to safety Outcome: Progressing Note: Evaluation of progress towards goal: Patient remains injury free. Problem: Infection Goal: Absence of infection during hospitalization Description: Interventions: 1. Assess and monitor for signs and symptoms of infection 2. Monitor lab/diagnostic results 3. Monitor all insertion sites i.e., indwelling lines, tubes and drains 4. Monitor endotracheal (as able) and nasal secretions for changes in amount and color 5. Administer medications as ordered 6. Instruct and encourage patient and family to use good hand hygiene technique 7. Identify and instruct patient/patient client services representative in use of appropriate isolation precautions for identified infection/symptoms 8. Provide and discuss with patient/patient client services representative on educational MDRO sheet 9. Encourage and monitor nutritional status daily and consult clinical abstractor if indicated 10. Implement neutropenic guidelines as needed 11. Review exposure to history of communicable disease and recent travel history on admission 12. Encourage annual influenza vaccine 13. Encourage pneumonia vaccine Outcome: Progressing Note: Evaluation of progress towards goal: Patient is being monitored for s/sx of infection. Problem: Knowledge Deficit Goal: Patient/patient client services representative demonstrates understanding of disease process, treatment plan, medications, and discharge instructions Description: INTERVENTIONS 1. Complete learning assessment and assess knowledge base 2. Provide teaching at level of understanding 3. Provide teaching via preferred learning method(s) Outcome: Progressing Note: Evaluation of progress towards goal: Patient provided education on disease process, medications, treatment plan, and discharge. Problem: Discharge Planning Goal: Discharge to post-acute care, other facility, or home with appropriate resources Description: Patient's goal is: INTERVENTIONS 1. Conduct assessment to determine patient/family and health care team treatment goals, and need for post-acute services based on payer coverage, community resources, and patient preferences, and barriers to discharge 2. Coordinate with Social work, Care Navigation, and Utilization Review to arrange appropriate level of services according to patient's needs based on patient preference and payer coverage in collaboration with the physician and health care team 3. Address psychosocial, clinical, and financial barriers to discharge as identified in assessment in conjunction with the patient/family and health care team 4. Consult appropriate ancillary services (i.e.. PT/OT/ST, etc) as needed 5. Communicate with and update the patient/family, physician, and health care team regarding progress on the discharge plan 6. Identify discharge learning needs (meds, wound care, etc). 7. Arrange for needed discharge transportation as appropriate Outcome: Progressing Note: Evaluation of progress towards goal: Discharge planning started. Problem: Moderate - High Risk Fall Score Description: Soni Fall Score of =/> 25 or indicated by [facility] Assessment Goal: Patient should be free from fall Description: Interventions: 1. [place] to environment 2. Hourly rounds addressing the 4 P's (Pain, Positioning, Possessions, Potty) 3. Clear area of hazards (spills, clutter, electrical cords, unnecessary equipment) 4. Place equipment (bed & TV controls, call light, phone, urinal) within reach 5. Encourage patient to wear glasses and hearing aides as appropriate 6. Maintain bed in lowest position 7. Lock wheels on bed/wheelchair 8. Provide adequate lighting, including night light 9. Assess need for additional bedding, food/fluids, pain med's prior to sleep/routinely 10. Provide gripper slippers or personal non-skid footwear 11. Teach patient and patient client services representative to maintain environment for safety and engage in all aspects of fall prevention program 12. Remind patient to call for help before getting out of bed 13. Initiate bed/chair/exit alarms supportive devices as appropriate, (chair wedge, no-skid floor mat, raised edge mattress, hip protectors) 14. Locate patient bed assignment for optimal visualization 15. Evaluate and identify Safe Patient Handling Equipment needs 16. Provide supervision when out of bed or chair 17. Utilize gait belt as needed to assist with ambulation 18. Place adaptive equipment (cane, walker) within reach 19. Request patient client services representative bring adaptive equipment/mobility aids from home or obtain and provide as needed 20. Consult pharmacy regarding effects of med's affecting mobility, cognition, and alternatives 21. Obtain physician order for PT if risk factors associated with mobility are present 22. Obtain physician order for OT as appropriate 23. Utilize diversional activities 24. Educate patient and patient client services representative how to maintain a safe environment during visitation times (notify nurse prior to leaving bedside) 25. Consider appropriateness of medical or non-medical research assistant 26. Set up voiding schedule as appropriate (every 2 hours) Outcome: Progressing Note: Evaluation of progress towards goal: Patient remains free from falls. Problem: Musculoskeletal - Adult Goal: Maintain proper alignment of affected body part Description: INTERVENTIONS: 1. Support and protect limb and body alignment per provider's orders 2. Instruct and reinforce with patient and family use of appropriate assistive device and precautions (e.g. spinal or hip dislocation precautions) Outcome: Progressing Note: Evaluation of progress towards goal: Patient maintains proper anatomical alignment. [facility] [place] 12-26-2023 Progress note Formatting of t his note is different from the original. Physical Therapy Evaluation Discharge Recommendations PT Recommendations: Home (use of RW with all mobility tasks) Home Recommendations: 24 hour caregiver support for: (IADLs and higher level mobility tasks) Post Discharge Therapy Recommendations: Home Physical Therapy 6 Clicks: Basic Mobility Turning from your back to your side while in a flat bed without using bed rails?: A little Moving from lying on your back to sitting on side of flat bed without using bed rails?: A little Moving to and from bed to a chair (including w/c)?: A little Standing up from a chair using your arms (e.g. w/c or bedside chair)?: A little To walk in hospital room?: A little Climbing 3-5 steps with a railing?: A little Scoring 6 Clicks: Basic Mobility Raw Score: 18 CMS G Code Modifier: CK Therapy Plan Need for skilled Physical Therapy to address deficits in functional mobility due to a status decline resulting from recent admit on 12/25/23 with planned lumbar laminectomy at L2-L5 d/t radiculopathy of lumbar region. Past Medical History: Diagnosis Date Cancer of prostate ([facility]) 2017 prostatectomy Diverticulitis Diverticulosis Fecal impaction ([facility]) Inflammation of sacroiliac joint ([facility]) Knee pain Low back pain Lumbar disc disorder Neurogenic claudication 12/17/2023 Osteoarthritis SBO (small bowel obstruction) ([facility]) 10/04/2023 Shingles UTI (urinary tract infection) Varicose veins of right lower extremity with pain 02/08/2020 Visual impairment 12/20/2023 Past Surgical History: Procedure Laterality Date ABDOMINAL ADHESION SURGERY COLONOSCOPY COLONOSCOPY N/A 03/25/2023 Performed by Matt Campbell DO at [facility] HERNIA REPAIR Left inguinal HIP SURGERY Left LAMINECTOMY LUMBAR MULTI LEVEL / L2-L5 N/A 12/25/2023 Performed by Mayco Nolen MD at [facility] PROSTATE BIOPSY PROSTATECTOMY REVISION TOTAL KNEE ARTHROPLASTY Right 2012 due to swelling TOTAL KNEE ARTHROPLASTY Right 2012 PT Treatment/Interventions: Functional transfer training, LE strengthening/ROM, Endurance training, Patient/family training, Equipment eval/education, Balance, Bed mobility, Gait training, Stair training, Compensatory technique education, Coordination activities, Functional activities PT Frequency: 5-6days/week PT Duration: LOS Patient Response to Treatment: Tolerated evaluation without adverse reaction, Slow progress, decreased activity tolerance Assessment Patient Assessment Therapy Problem List: Decreased balance, Decreased endurance, Decreased gross motor, Decreased mobility, Decreased LE strength Patient Response to Treatment: Tolerated evaluation without adverse reaction, Slow progress, decreased activity tolerance Mood/Affect: Appropriate for circumstances Rehab Prognosis: Good, With continued PT status post acute discharge Visit RN Communication: Yes Medical Record Reviewed: Yes PT Type of Visit: Evaluation Precautions Activity: early mobility: pass Equipment: RW, gait belt, wound drain Telemetry/Defective Cigarette Slitter: Yes Oxygen Used: room air Other: fall risk, back precautions Pain Assessment Pain Assessment: 0-10 Pain Score: 7 Pain Type: Surgical pain Pain Location: Back Pain Intervention(s): Repositioned, Ambulation/increased activity Response to Interventions: Pain unchanged Home Living Type of Home: House Home Layout: One level, Performs ADLs on one level, Able to live on main level with bedroom/bathroom Stairs to Enter: 1 Hand Rails: None Stairs in Home: 3 to living room Hand Rails in Home: Right Bathroom Shower/Tub: Tub/shower unit Bathroom Toilet: Raised Bathroom Equipment: Shower chair, Hand-held shower (support near toilet) Home Equipment: Rolling walker, 4 Wheeled walker (3WW) Other : pt was using 3WW with all mobility tasks Prior Function Lives With: Spouse (works) Receives Help From: Neighbor (able to assist when spouse is at work) Level of Mobility: Independent with ADLs and functional transfers or gait Homemaking Assistance: Independent ADL / IADL Hand Dominance: Right Hearing / Speech / Vision Hearing: Within Functional Limits Speech: Within Functional Limits Current Vision: Wears glasses all the time Cognition Overall Cognitive Status: Within Functional Limits Orientation Level: Oriented X4 Sensation Overall Sensation Status: Exceptions to Within Functional Limits (n/t in bottom of the feet) Bed Mobility Supine to Sit: Contact guard assist Sit to Supine: Contact guard assist Other: assist for safety with cues for proper BUE placement and log technique while maintaining proper back precautions Transfers Sit to Stand: Contact guard assist Stand to Sit: Contact guard assist Other: assist needed for safety with cues for proepr BUE placement Gait Base of Support: Narrow Pattern: Decreased jozef, R Decreased heel strike, L Decreased heel strike Gait Assistance: Contact guard assist Assistive Device: Rolling walker Gait Distance: 100ft x2 Limiting Factors to Gait: Fatigue, Weakness, Decreased safety, Pain Stair Management Technique: One rail L up, Step to pattern Stair Management Assistance: Contact guard assist Number of Stairs: 3 Other: assist needed for safety and fall prevention with cues for proper gait pattern and sequencing Balance Sitting Balance: Static: Good Sitting Balance: Dynamic: Good Standing Balance: Static: Fair Standing Balance: Dynamic: Fair (-) Other: BUE support on RW with all standing tasks RLE Assessment: (grossly: 4-/5) LLE Assessment: (grossly: 4/5) Activity Tolerance Endurance: Tolerates <30 minutes activity WITHOUT vital sign changes Other: limited d/t weakness and fatigue Plan Physical Therapy Care Plan Physical Therapy Care Plan (Active) Template: PT - Physical Therapy Problem: Activity Tolerance Dates: Start: 12/26/23 Disciplines: PT Goal: Tolerate > 30 minutes of activity WITH rest breaks Dates: Start: 12/26/23 Expected End: 01/24/24 Description: Goal Description: Disciplines: PT Problem: Bed Mobility Dates: Start: 12/26/23 Disciplines: PT Goal: Patient will perform bed mobility with Modified [place] Dates: Start: 12/26/23 Expected End: 01/24/24 Description: Goal Description: with proper BUE placement and sequencing Disciplines: PT Problem: Gait Dates: Start: 12/26/23 Disciplines: PT Goal: Patient will perform gait with Modified [place] Dates: Start: 12/26/23 Expected End: 01/24/24 Description: With__RW__,__150__feet Goal Description: with proper gait pattern and safety awareness Disciplines: PT Problem: Stairs/Curb Dates: Start: 12/26/23 Disciplines: PT Goal: Patient will perform stairs/curb with Modified [place] Dates: Start: 12/26/23 Expected End: 01/24/24 Description: __3___steps,__right___hand rails Goal Description: for safer entry into home Disciplines: PT Problem: Standing Balance Dates: Start: 12/26/23 Disciplines: PT Goal: Improve balance to normal Dates: Start: 12/26/23 Expected End: 01/24/24 Description: Static/Dynamic to reduce risk of falls with all functional tasks Disciplines: PT Problem: Strength Dates: Start: 12/26/23 Disciplines: PT Goal: Improve strength Dates: Start: 12/26/23 Expected End: 01/24/24 Description: Of extremity/ location: BLE strength to WFL To facilitate: Safer functional mobility tasks Disciplines: PT Problem: Transfers Dates: Start: 12/26/23 Disciplines: PT Goal: Patient will perform transfers with Modified [place] Dates: Start: 12/26/23 Expected End: 01/24/24 Description: Goal Description: with proper BUE placement and sequencing Disciplines: PT Physical Therapy Care Plan (Resolved) There are no resolved problems. Principal Problem: Radiculopathy, lumbar region Active Problems: Neurogenic claudication [facility] [place] 12-26-2023 Progress note Formatting of t his note is different from the original. Images from the original note were not included. DISCHARGE PLANNING NOTE Services Requested: Services Requested Discharge Disposition: Home with self care Does the patient need discharge transportation arranged?: No Mobility issues discussed with transportation provider: No Patient choice offered: Yes List Provided: Patient declined Initial DC Assessment Completed: Yes Patient Goals: Goals: Goals (pt-stated) Evaluation of progress towards goal: Patient will discharge home with , self care. - Jace Silva RN 12/26/23 11:57 AM Met with patient to review transitions of care. Pt lives with his in a one story home. There are three steps to enter with a iron railing. He states that his works during the day. Explained that PT has been ordered and educated him on different levels of therapy that can be recommended. Pt admits that his legs feel Wobbly. But declined going to rehab or home care. PCP is Sumanth Hill. Pt will make his own follow up appts. He has a wheeled walker at home. Pt has transportation and can get to his follow up appts. He understands and can afford his medications. He denies smoking, drinking alcohol or doing illciit drugs. [facility] [place] 12-26-2023 Plan of care note Problem: Pain Goal: Patient goal is pain score less than 4, able to rest, and participant in treatment plan as appropriate Description: INTERVENTIONS: 1. Encourage patient or legal client services representative to report early pain and ask for pain medicine when needed 2. Assess pain using appropriate pain scale and include the scale used when documenting 3. Administer analgesics based on type and severity of pain and evaluate response within appropriate time frame 4. Implement non-pharmacological measures as appropriate and evaluate response 5. Consider cultural and social influences on pain and pain management 6. Notify LIP if interventions ineffective or patient reports new pain 7. Monitor vital signs including pulse ox, end-tidal CO2 based on pain intervention 8. Reassess pain per policy 9. Teach patient or legal client services representative interventions for comforting Outcome: Progressing Note: Evaluation of progress towards goal: PRN pain meds given Problem: Infection Goal: Absence of infection during hospitalization Description: Interventions: 1. Assess and monitor for signs and symptoms of infection 2. Monitor lab/diagnostic results 3. Monitor all insertion sites i.e., indwelling lines, tubes and drains 4. Monitor endotracheal (as able) and nasal secretions for changes in amount and color 5. Administer medications as ordered 6. Instruct and encourage patient and family to use good hand hygiene technique 7. Identify and instruct patient/patient client services representative in use of appropriate isolation precautions for identified infection/symptoms 8. Provide and discuss with patient/patient client services representative on educational MDRO sheet 9. Encourage and monitor nutritional status daily and consult clinical abstractor if indicated 10. Implement neutropenic guidelines as needed 11. Review exposure to history of communicable disease and recent travel history on admission 12. Encourage annual influenza vaccine 13. Encourage pneumonia vaccine Outcome: Progressing Note: Evaluation of progress towards goal: labs reviewed Problem: Discharge Planning Goal: Discharge to post-acute care, other facility, or home with appropriate resources Description: Patient's goal is: INTERVENTIONS 1. Conduct assessment to determine patient/family and health care team treatment goals, and need for post-acute services based on payer coverage, community resources, and patient preferences, and barriers to discharge 2. Coordinate with Social work, Care Navigation, and Utilization Review to arrange appropriate level of services according to patient's needs based on patient preference and payer coverage in collaboration with the physician and health care team 3. Address psychosocial, clinical, and financial barriers to discharge as identified in assessment in conjunction with the patient/family and health care team 4. Consult appropriate ancillary services (i.e.. PT/OT/ST, etc) as needed 5. Communicate with and update the patient/family, physician, and health care team regarding progress on the discharge plan 6. Identify discharge learning needs (meds, wound care, etc). 7. Arrange for needed discharge transportation as appropriate Outcome: Progressing Note: Evaluation of progress towards goal: progressing Problem: Musculoskeletal - Adult Goal: Maintain proper alignment of affected body part Description: INTERVENTIONS: 1. Support and protect limb and body alignment per provider's orders 2. Instruct and reinforce with patient and family use of appropriate assistive device and precautions (e.g. spinal or hip dislocation precautions) Outcome: Progressing Note: Evaluation of progress towards goal: progressing with walker [facility] 12-25-2023 Procedure note NEUROSURGERY OPERATIVE NOTE Patient Name: Regan Green Patient Patient Date of : 1950 Date of Surgery: 12/25/2023 Preoperative Diagnosis: Degenerative lumbar spondylosis L2-L5 with neural compression and neurogenic claudication Postoperative Diagnosis: Same as above Surgeon: Mayco Nolen MD Anesthesia: General endotracheal Procedures Performed: (1) complete L2, L3, L4, L5 laminectomy (2) partial medial facetectomy and bilateral foraminotomies L2-3, L3-4, and L4-5 Estimated Blood Loss: 100 mL Indications and Brief History: 73-year-old male presented with neurogenic claudication. MRI demonstrated degenerative spondylosis with significant neural compression. He failed conservative management, therefore, lumbar decompressive laminectomy was offered. Dynamic imaging studies demonstrated minimal to no instability so it was elected not to offer posterolateral fusion. Surgical risks were explained and consent was obtained. Detailed Description of Operative Note: Patient was brought to the operating room, anesthetized, and positioned prone on the Unruly table. C-arm was utilized to michael a midline incision. His back was prepped and draped in sterile fashion. A surgical pause was completed and answered. He received antibiotic prophylaxis. Incision line was infiltrated with a cocktail of lidocaine and epinephrine. Sharp incision was made in the midline. Subperiosteal dissection of the paraspinal muscles was completed with Bovie and Shi elevators. Self-retaining retractors were placed. The spinous processes of L2, L3, L4, and L5 were removed with Leksell rongeurs. Full laminectomies were then completed at L2, L3, L4, and L5 in the standard manner using a high-speed drill and Kerrison punches. The medial portion of the facet complexes at L2-3, L3-4, and L4-5 were then removed with Kerrison rongeurs and bilateral foraminotomies were completed at the above-mentioned levels using Kerrison punches. I then checked with a Clearwater elevator and confirmed that there was no residual lateral recess or foraminal stenosis. Epidural venous bleeding was controlled with Gelfoam soaked with thrombin. Inspection of the dura did not reveal any rents or mateo CSF leak. The cavity was irrigated with antibiotic infused saline. Hemostasis was achieved by coagulating the bleeding muscle points. A drain was placed in the epidural space and tunneled. The incision was then closed in standard layered fashion and dressed. The patient was awakened, extubated, and transported to the recovery room with stable vital signs. Complications: None. [facility] 12-25-2023 Procedure note Brief Post-op Note NAME: Regan Green : 1950 PROCEDURE DATE: 12/25/2023 Surgeon: Surgeon(s) and Role: * Mayco Nolen MD - Primary Assistants: None Staff: Drafter [employer] Primary: Lily Glasgow RN Drafter [employer] Relief: Dina Roy RN Scrub Person: Janak Holman CST Pre-op Diagnosis: Radiculopathy, lumbar region [M54.16] Neurogenic claudication [R29.818] Procedure Details: Procedure(s): LAMINECTOMY LUMBAR MULTI LEVEL / L2-L5 - Wound Class: Clean - Incision Closure: Deep and Superficial Layers Anesthesia Type: General Post-Op Diagnosis Codes: * Radiculopathy, lumbar region [M54.16] * Neurogenic claudication [R29.818] Complications: none Additions (Drains, Specimens, Implants): Drains: Closed/Suction Drain 12/25/23 1 Inferior;Midline Back Accordion (Active) Drainage Appearance Bloody 12/26/23 0445 Output (mL) 50 mL 12/26/23 0445 Implants: Implant Name Type Inv. Item Serial No. Preconstruction Manager Lot No. LRB No. Used Action PATCH DURA 1X1IN DRMTRX-ONLAY + CLGN RGNRT MEMBR STRL RPL [id number] - [id number] Graft PATCH DURA 1X1IN DRMTRX-ONLAY + CLGN RGNRT MEMBR STRL RPL [id number] PAULINA CRANIOMAXILLOFACIAL [id number] N/A 1 Implanted Estimated Blood Loss: 100 ml OB Surgical Procedure Blood Loss: Anesthesia EBL: * No values recorded between 12/25/2023 3:09 PM and 12/25/2023 4:54 PM * OB QBL: * No values recorded between 12/25/2023 3:09 PM and 12/25/2023 4:54 PM * Condition: stable Findings: severe lateral recess [facility] Attending History and physical note HISTORY AND PHYSICAL INTERVAL NOTE: Regan Fortune Norma 1950 [id number] H&P reviewed. The patient was examined and there are no changes to the H&P. Mayco Nolen MD Source Note - JOSEMANUEL Daniels - 12/20/2023 6:12 PM EST Letter to pain management seeking clarification on post operative pain medications. JOSEMANUEL Jackson [facility] Contact via patient touch 12/20/23 6:21 PM To find out which ESTEFANY is on for the day please go to [employer] and use log in [employer] and search for [facility] Neurosurgery (ESTEFANY and Phone Number is listed) JOSEMANUEL Daniels 12/20/23 1821 JOSEMANUEL Daniels 12/25/23 1330 [facility] 12-25-2023 History and physical note HISTORY AND PHYSICAL INTERVAL NOTE: Regan Fortune Norma 1950 [id number] H&P reviewed. The patient was examined and there are no changes to the H&P. Mayco Nolen MD Source Note - JOSEMANUEL Daniels - 12/20/2023 6:12 PM EST Letter to pain management seeking clarification on post operative pain medications. JOSEMANUEL Jackson [facility] Contact via patient touch 12/20/23 6:21 PM To find out which ESTEFANY is on for the day please go to [employer] and use log in [employer] and search for [facility] Neuro[facility] (ESTEFANY and Phone Number is listed) JOSEMANUEL Daniels 12/20/23 1821 JOSEMANUEL Daniels 12/25/23 1330 documented in this encounter [facility] 12-24-2023 Miscellaneous Notes I spoke to Kenneth to explain how Medicare authorizes surgeries. Reminded Kenneth of surgery tomorrow 12/25/23 at 2:45pm with TTH arrival time of 12:45 pm documented in this encounter [facility] 12-24-2023 Telephone encounter Note I spoke to Kenneth to explain how Medicare authorizes surgeries. Reminded Kenneth of surgery tomorrow 12/25/23 at 2:45pm with TTH arrival time of 12:45 pm [facility] 12-24-2023 Nurse Note Anesthesia review: Lumb Patel: 12/25: TTH: GA. only hx prostate CA. No c/o CP or SOB. EKGs: LAst PCP note Reviewed and accepted by Dr Vásquez with no further orders [facility] 12-20-2023 Miscellaneous Notes Patient called to advise office that he does not need surgery clearance from PCP. documented in this encounter [facility] 12-20-2023 Telephone encounter Note Patient called to advise office that he does not need surgery clearance from PCP. [facility] 12-20-2023 History and physical note PRE-ADMISSION TESTING HISTORY AND PHYSICAL EXAM DATE: 12/20/23 PCP: Sumanth Hill MD CHIEF COMPLAINT: back pain HISTORY OF PRESENT ILLNESS: Regan Green, a 73 y.o. White or male, presents to [facility] for a pre-surgical H&P. The patient has been diagnosed with lumbar radiculopathy. He complains of low back pain that radiates into his legs, worse on the right currently, but it was worse on the left side. He c/o weakness and numbness in both legs. He is using a walker to ambulate. He has been having symptoms since 10/2023. He denies associated injury. Pt denies foot drop, saddle anesthesia and loss of control of bladder/ bowels. He has tried injections in his back and nerve ablations with pain management. Anesthesia problems: pt denies. Latex allergy: pt denies. Bleeding/ clotting disorders: pt denies. Recent hospitalizations: 10/2023 for bowel obstruction, had NG tube placed. PAST MEDICAL HISTORY: Past Medical History: Diagnosis Date Cancer of prostate ([facility]) 2017 prostatectomy Diverticulitis Diverticulosis Fecal impaction ([facility]) Inflammation of sacroiliac joint ([facility]) Knee pain Low back pain Lumbar disc disorder Neurogenic claudication 12/17/2023 Osteoarthritis SBO (small bowel obstruction) ([facility]) 10/04/2023 Shingles UTI (urinary tract infection) Varicose veins of right lower extremity with pain 02/08/2020 Visual impairment 12/20/2023 PAST SURGICAL HISTORY: Past Surgical History: Procedure Laterality Date ABDOMINAL ADHESION SURGERY COLONOSCOPY COLONOSCOPY N/A 03/25/2023 Performed by Matt Campbell DO at [facility] HERNIA REPAIR Left inguinal HIP SURGERY Left PROSTATE BIOPSY PROSTATECTOMY REVISION TOTAL KNEE ARTHROPLASTY Right 2013 due to swelling TOTAL KNEE ARTHROPLASTY Right 2013 FAMILY HISTORY: Family History Adopted: Yes Problem Relation Age of Onset Anesthesia problems Neg Hx SOCIAL HISTORY: The patient reports current alcohol use. He reports that he has quit smoking. His smoking use included cigarettes. He has never used smokeless tobacco. He reports that he does not currently use drugs after having used the following drugs: Medical Marijuana. ALLERGIES: No Known Allergies MEDICATIONS: Current Outpatient Medications: diclofenac (VOLTAREN) 75 mg EC tablet, Take 1 tablet (75 mg total) by mouth in the morning and 1 tablet (75 mg total) before bedtime. Indications: joint damage causing pain and loss of function., Disp: , Rfl: gabapentin (NEURONTIN) 600 mg tablet, Take 1 tablet (600 mg total) by mouth in the morning and 1 tablet (600 mg total) before bedtime., Disp: , Rfl: oxyCODONE-acetaminophen (PERCOCET) 5-325 mg per tablet, Take 3 tablets by mouth 3 (three) times a day., Disp: , Rfl: tiZANidine (ZANAFLEX) 4 mg tablet, Take 2 tablets (8 mg total) by mouth in the morning and 2 tablets (8 mg total) at noon and 2 tablets (8 mg total) in the evening. Indications: muscle spasm., Disp: , Rfl: REVIEW OF SYSTEMS: Review of Systems Constitutional: Negative for fever. HENT: Negative for dental problem, ear pain, rhinorrhea, sore throat and trouble swallowing. Eyes: Negative for redness. Respiratory: Negative for cough and shortness of breath. Cardiovascular: Negative for chest pain and leg swelling. Gastrointestinal: Negative for nausea, vomiting and diarrhea. Genitourinary: Negative for dysuria and hematuria. Skin: Negative for rash and wound. Neurological: Negative for seizures and syncope. Psychiatric/Behavioral: The patient is not nervous/anxious. VITAL SIGNS: BP 132/84 Pulse 77 Temp 36.5 C (97.7 F) (Temporal) Resp 18 Ht 182.9 cm (6') Wt 98.3 kg (216 lb 11.4 oz) SpO2 97% BMI 29.39 kg/m PHYSICAL EXAM: Physical Exam Constitutional: General: He is not in acute distress. Appearance: He is not toxic-appearing or diaphoretic. HENT: Head: Atraumatic. Nose: No rhinorrhea. Mouth/Throat: Mouth: Mucous membranes are moist. Pharynx: No posterior oropharyngeal erythema. Eyes: Conjunctiva/sclera: Conjunctivae normal. Pupils: Pupils are equal, round, and reactive to light. Cardiovascular: Rate and Rhythm: Normal rate and regular rhythm. Pulses: Normal pulses. Heart sounds: No murmur heard. Pulmonary: Effort: Pulmonary effort is normal. No respiratory distress. Breath sounds: No wheezing, rhonchi or rales. Abdominal: General: Bowel sounds are normal. Tenderness: There is no guarding. Musculoskeletal: General: No swelling. Skin: General: Skin is warm and dry. Neurological: Mental Status: He is alert and oriented to person, place, and time. Psychiatric: Mood and Affect: Mood normal. Behavior: Behavior normal. Behavior is cooperative. RECENT LABS: Lab Results Component Value Date WBC 10.4 10/06/2023 HGB 13.7 10/06/2023 HCT 39.8 10/06/2023 PLT 241 10/06/2023 SODIUM 137 10/06/2023 K 4.1 10/06/2023 CL 102 10/06/2023 CO2 25 10/06/2023 CALCIUM 9.1 10/06/2023 ALKPHOS 59 10/06/2023 ALBUMIN 3.6 10/06/2023 GLU 102 (H) 10/06/2023 ALT 29 10/06/2023 AST 12 10/06/2023 CREATININE 0.81 10/06/2023 BUN 14 10/06/2023 GFR >60 05/02/2022 GFR >60 05/02/2022 EGFR >90 10/06/2023 TSH 6.60 (H) 07/30/2023 PSA <0.01 04/16/2023 *Please note that labs listed above are the most recent lab values available in [facility] at the time of the office visit. PAT labs are pending per surgeon. ASSESSMENT / DIAGNOSIS: Linked DX: Radiculopathy, lumbar region [M54.16] PLAN: Regan Green is scheduled for Linked Case Date: 12/25/2023 Linked Surgeon: Forrest Nolen MD Linked Surgery: Laminectomy Lumbar Multi Level / L2-L5. JOSEMANUEL Santoyo 12/20/23 1511 [facility] 12-20-2023 History and physical note PRE-ADMISSION TESTING HISTORY AND PHYSICAL EXAM DATE: 12/20/23 PCP: Sumanth Hill MD CHIEF COMPLAINT: back pain HISTORY OF PRESENT ILLNESS: Regan Green, a 73 y.o. White or male, presents to [facility] for a pre-surgical H&P. The patient has been diagnosed with lumbar radiculopathy. He complains of low back pain that radiates into his legs, worse on the right currently, but it was worse on the left side. He c/o weakness and numbness in both legs. He is using a walker to ambulate. He has been having symptoms since 10/2023. He denies associated injury. Pt denies foot drop, saddle anesthesia and loss of control of bladder/ bowels. He has tried injections in his back and nerve ablations with pain management. Anesthesia problems: pt denies. Latex allergy: pt denies. Bleeding/ clotting disorders: pt denies. Recent hospitalizations: 10/2023 for bowel obstruction, had NG tube placed. 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 He reports that he has quit smoking. His smoking use included cigarettes. He has never used smokeless tobacco. He reports that he does not currently use drugs after having used the following drugs: Medical Marijuana. ALLERGIES: No Known Allergies MEDICATIONS: Current Outpatient Medications: diclofenac (VOLTAREN) 75 mg EC tablet, Take 1 tablet (75 mg total) by mouth in the morning and 1 tablet (75 mg total) before bedtime. Indications: joint damage causing pain and loss of function., Disp: , Rfl: gabapentin (NEURONTIN) 600 mg tablet, Take 1 tablet (600 mg total) by mouth in the morning and 1 tablet (600 mg total) before bedtime., Disp: , Rfl: oxyCODONE-acetaminophen (PERCOCET) 5-325 mg per tablet, Take 3 tablets by mouth 3 (three) times a day., Disp: , Rfl: tiZANidine (ZANAFLEX) 4 mg tablet, Take 2 tablets (8 mg total) by mouth in the morning and 2 tablets (8 mg total) at noon and 2 tablets (8 mg total) in the evening. Indications: muscle spasm., Disp: , Rfl: REVIEW OF SYSTEMS: Review of Systems Constitutional: Negative for fever. HENT: Negative for dental problem, ear pain, rhinorrhea, sore throat and trouble swallowing. Eyes: Negative for redness. Respiratory: Negative for cough and shortness of breath. Cardiovascular: Negative for chest pain and leg swelling. Gastrointestinal: Negative for nausea, vomiting and diarrhea. Genitourinary: Negative for dysuria and hematuria. Skin: Negative for rash and wound. Neurological: Negative for seizures and syncope. Psychiatric/Behavioral: The patient is not nervous/anxious. VITAL SIGNS: BP 132/84 Pulse 77 Temp 36.5 C (97.7 F) (Temporal) Resp 18 Ht 182.9 cm (6') Wt 98.3 kg (216 lb 11.4 oz) SpO2 97% BMI 29.39 kg/m PHYSICAL EXAM: Physical Exam Constitutional: General: He is not in acute distress. Appearance: He is not toxic-appearing or diaphoretic. HENT: Head: Atraumatic. Nose: No rhinorrhea. Mouth/Throat: Mouth: Mucous membranes are moist. Pharynx: No posterior oropharyngeal erythema. Eyes: Conjunctiva/sclera: Conjunctivae normal. Pupils: Pupils are equal, round, and reactive to light. Cardiovascular: Rate and Rhythm: Normal rate and regular rhythm. Pulses: Normal pulses. Heart sounds: No murmur heard. Pulmonary: Effort: Pulmonary effort is normal. No respiratory distress. Breath sounds: No wheezing, rhonchi or rales. Abdominal: General: Bowel sounds are normal. Tenderness: There is no guarding. Musculoskeletal: General: No swelling. Skin: General: Skin is warm and dry. Neurological: Mental Status: He is alert and oriented to person, place, and time. Psychiatric: Mood and Affect: Mood normal. Behavior: Behavior normal. Behavior is cooperative. RECENT LABS: Lab Results Component Value Date WBC 10.4 10/06/2023 HGB 13.7 10/06/2023 HCT 39.8 10/06/2023 PLT 241 10/06/2023 SODIUM 137 10/06/2023 K 4.1 10/06/2023 CL 102 10/06/2023 CO2 25 10/06/2023 CALCIUM 9.1 10/06/2023 ALKPHOS 59 10/06/2023 ALBUMIN 3.6 10/06/2023 GLU 102 (H) 10/06/2023 ALT 29 10/06/2023 AST 12 10/06/2023 CREATININE 0.81 10/06/2023 BUN 14 10/06/2023 GFR >60 05/02/2022 GFR >60 05/02/2022 EGFR >90 10/06/2023 TSH 6.60 (H) 07/30/2023 PSA <0.01 04/16/2023 *Please note that labs listed above are the most recent lab values available in [facility] at the time of the office visit. PAT labs are pending per surgeon. ASSESSMENT / DIAGNOSIS: Linked DX: Radiculopathy, lumbar region [M54.16] PLAN: Regan Green is scheduled for Linked Case Date: 12/25/2023 Linked Surgeon: Forrest Nolen MD Linked Surgery: Laminectomy Lumbar Multi Level / L2-L5. JOSEMANUEL Santoyo 12/20/23 1511 [facility] Instructions Antonia Rosario RN - 12/20/2023 1:45 PM EST Your surgery/procedure is scheduled at [facility] on 12/25 at 2:45 Arrival Time 12:45 [facility] Address: [address] [place] [address]. [place] [address] [address] in [address] Parking [address] located on [facility]. Report to the Entrance B. Check in at the information desk the surgery. The waiting room located on the second floor. If you have any questions prior to surgery, please call Pre-Admission Clinic at [phone] between 7:30 am and 4:30 pm Saturday through Saturday. If you have questions the morning of surgery, please call the Pre-op Department at [phone]. Notify your SURGEON if you develop any illness such as a cold, cough, fever, sore throat, vomiting or are hospitalized between now and your surgery. CONTINUE TO TAKE YOUR MEDICATIONS PRESCRIBED. DO NOT STOP YOUR PRESCRIBED MEDICATIONS UNLESS DIRECTED BY YOUR PRESCRIBING PHYSICIAN Take the following medications the morning of surgery with a sip of water: gabapentin, percocet. Stop tizanadine 3 days prior Weight loss medications: none Take inhalers as prescribed the morning of surgery. . Blood thinners: Medications such as Coumadin, Heparin, Aspirin, Plavix, Eliquis, Pradaxa) Please contact your physician regarding a stop/hold date for these medications. Diabetics: If you take insulin, contact your prescribing doctor for instructions on how to manage this the night before and the morning of surgery. Non-steriodal Anti-Inflammatory Drugs (NSAIDS)- Stop 3 days prior to surgery unless otherwise directed by your surgeon. Vitamins/Herbal Products: You may continue to take your prescribed vitamins such as potassium, iron, vitamin B, vitamin C, or multivitamin unless specifically instructed by your surgeon to stop. STOP taking all herbal products/teas one week prior to your surgery. Marijuana: Stop marijuana 72 hours prior to surgery, stop CBD oil 48 hours prior to surgery. If you have been given bowel prep instructions by your surgeon, please call the surgeon's office with any questions about these instructions. What do I do the day of Surgery? Age 2 through adult - Stop all solids by midnight, You may have clear liquids up to 2 hours before surgery, unless otherwise instructed by your surgeon. Clear liquids are: water, sports drinks such as Gatorade or G2, or apple juice. You may NOT have: tube feedings, dairy products, alcoholic beverages, orange juice, or any liquids with solids or pulp in it. If applicable, shower again with CHG soap the morning of your surgery. If you received a green plastic bracelet, bring it with you the day of surgery and your nurse will put it on you. In order to help prevent infection post-operatively, you may be asked to use a CHG mouthwash when you arrive to the Pre-op area. Your nurse will provide instruction the morning of. What do I need to do to prepare for surgery? If you will be going home the same day as your surgery, arrange for an adult over [address] Riding in a bus or taxi by yourself is not permitted. You should not smoke or drink alcohol 24 hours before your surgery. Alcohol thins the blood and may cause bleeding problems during surgery. Smoking increases the risk of breathing problems after surgery. If you have been assigned ALLA Education by your surgeon's office, please complete this education prior to your surgery. For questions regarding ALLA education, reach out to your surgeon's office. If you have been given a prescription for occupational, physical or speech therapy, please set up these appointments before your procedure. If you would like to schedule therapy at a [facility] facility, please call [phone] ([phone]). Do not use lotions, creams, powders, perfume, make up, cologne or after-shaves day of surgery. Remove ALL jewelry including wedding rings, body piercings,hair extensions that contain metal, nail tuvaluan, make-up, and contact lens. You may brush your teeth the morning of surgery, but do not swallow the water. Wear your dentures and partial plates to the hospital (no adhesive). Shower the night the before. If applicable, use the CHG (chlorhexidine gluconate) soap or wipes What should I bring to the hospital? If you received a green plastic bracelet, bring it with you the day of surgery and your nurse will put it on you. Eyeglass or contact lens case If you will be spending the night, please bring personal care items and leave them in the car until you are taken to your room after surgery. Leave ALL valuables at home. If any of these instructions conflict with those you received from the surgeon, please seek clarification from your surgeon's office. DEEP BREATHING EXERCISES This exercise helps promote good air exchange and helps to prevent pneumonia after surgery. Breathe in slowly and deeply through the nose. Hold your breath for a few seconds and then exhale slowly through the mouth. Repeat this three times and then cough.Coughing helps to clear your lungs. If you have had a surgery with an incision into your abdomen or chest, press gently against your incision with a pillow or a folded blanket when you cough. Please be aware - it may not be holloway to cough following some types of surgeries involving the eyes, ears, sinuses and throat. Always follow your doctor's instructions. LEG EXERCISE These exercises help promote good circulation and help to prevent blood clots after surgery. Point your toes to the ceiling and then point them to the wall. Do this slowly about 15-20 times. You may also move your feet in circles. Do the exercise that is most comfortable for you. If you have had surgery involving your shoulder or arm, we recommend you move your fingers. PRACTICING We ask that you begin practicing these exercises before your surgery. After surgery try to do both exercises at least every 2 hours during the day and early evening. SURGICAL SITE INFECTION PREVENTION What is a Surgical Site Infection? Infection can happen to the area of the body where surgery is done. This is called a surgical site infection (SSI). A SSI does not happen very often. Can SSIs be treated? Antibiotics are used to treat SSI. Some patients may need another surgery to treat the infection. The doctor will discuss treatment options with you. What are some of the things that hospitals are doing to prevent SSIs? Soap and water or alcohol hand rub are used before and after caring for each patient. Special soap is used to clean surgery workers hands and arms just before the surgery. Masks, gowns, gloves and hair covers are worn during the surgery to keep the area clean. Hair in the surgery area may be removed with clippers (not razors). A special soap that kills germs is used to clean the skin at the surgery site. Antibiotics may be given before the surgery starts. What can you do to prevent SSIs? Before surgery: You may be asked to shower or bathe with a special soap that kills germs the night before and the day of surgery. Use the soap as you were told. If you smoke, stop or cut down. Ask your doctor about ways to quit. Do not shave near where you will have surgery. Shaving can irritate the skin and make it easier to get and infection. After surgery: Be sure that the doctors and nurses clean their hands before and after touching you. Be sure your family and friends clean their hands before and after visiting you. Do not be afraid to remind them. * Care for your wound at home as told by your doctor or nurse * Call your doctor right away if you have fever, redness, increased pain, or drainage at the surgery site. Further questions? Contact the doctor, nurse or the Infection Prevention and Control department if you have any questions. PATIENT RIGHTS AND RESPONSIBILITIES As a patient at [facility], you have the right to: Receive medical care and be informed of who is taking care of you Be treated with dignity and respect Have a family member/client services representative of choice and your physician notified of your admission Receive information and actively participate in decisions about your care and treatment Refuse care, treatment and services Decide who may provide your support and speak for you Access anabaptism and spiritual services Participate in ethical issues and questions about your care Receive private and confidential care Have appropriate assessment and management of your pain Know guest visitation restrictions or limitations Have an advance directive Access protective services Consent or refuse to participate in research studies or production or recordings, films or other images Have resolution of your complaints Receive information of hospital charges and payment methods Patient/patient client services representative responsibilities are to: Provide information about health status to facilitate care, treatment and services Follow the treatment, plan, keep appointments and speak up when you do not understand the plan Respect the rights of other patients and healthcare personnel Follow organizational rules and regulations that support quality care and a safe environment Fulfill financial obligations as promptly as possible Bathing Before Surgery- Patients greater than 2 months of age You can help to lower your chance of infection at the site of your surgery by showering or bathing with a special soap called chlorhexidine gluconate (CHG). Germs live on your skin. This special soap will help lower the amount of germs so they do not get into your surgery site. Special points to know: Do not use this soap if you know that you are allergic to CHG. Shower or bathe with CHG the night before and the morning of surgery. Do not shave the area of your body where the surgery will be done within 7 days of surgery. The CHG may make your skin a little dry, but do not use lotion. Steps for Bathing: Wash your hair as usual with your normal shampoo. Rinse your hair and body well after you shampoo to get rid all of the shampoo. Wash gently with the CHG from the neck down, but do not scrub the skin to hard. Be sure to wash the area of your surgery very well. If showering, turn the water off while washing and then turn the water back onto rinse. Do not get CHG in the genital (private) area. Do not get CHG in the eyes, ears, nose or mouth. (If the soap gets into the eyes, flush them immediately with water). Do not wash with regular soap after CHG is used. Pat skin dry with a soft, clean towel. Patient should sleep in freshly laundered night clothes and report for surgery in clean clothes. documented in this encounter [facility] 12-18-2023 History of Present illness Narrative Pre Op Chart Review: Date of Surgery: 12/25/23 Surgeon: Dr. Nolen Operation: LAMINECTOMY LUMBAR MULTI LEVEL / L2-L5 Consent Obtained and Scanned: Not scanned; will follow up with Ella Relevant Past Medical History: Prostate CA SBO UTI Requested Pre Op Clearances and Date Received: N/A Anticoagulation/Antiplatelet Use (and why on it) and When Ok to Resume/Bridge: Diclofenac OARRS Reviewed: 12/20 Percocet 5-325 # 90 12/11/23 Post Operative Pain Plan if on Meds Pre Op: Letter sent to pain management 12/20/23 (Danielle Davila) Pre Op Testing Reviewed: CBC: WNL BMP: WNL Coags: WNL T&S (if needed): AB+ UA: WNL A1C (if diabetic): N/A EK10/04/23 NSR Chest Xray: 10/04/23 no acute pulmonary pathology Jasmin Noriega, PHLEBOTOMY SUPERVISOR-BRINE TANK TENDER [facility] Contact via patient touch 12/21/23 6:10 AM To find out which ESTEFANY is on for the day please go to [employer] and use log in [employer] and search for PTH Neurosurgery (ESTEFANY and Phone Number is listed) JOSEMANUEL Daniels 12/25/23 3166 documented in this encounter [facility] 12-10-2023 Miscellaneous Notes Regan calls into the office stating that he was seen previously in the office. Patient stated that he could not have surgery due to his insurance requesting him to try therapy and injections. Patient stated that he has had an injection and had at least 6 sessions of physical therapy. Patient also states that he feels therapy is making his back worse. Regan call returned. Patient stated that he has done at least 6-7 sessions of therapy. Patient also stated that he had a therapy session that he cancelled for tomorrow because it hurts his back to much but he kept his appointment for Saturday because its in the water. Patient also stated that the therapist he saw yesterday was going to fax a note to the office stating that he has been doing therapy and it is hard on his body. Patient was informed that he would have to speak with Dr. Nolen manager managing about surgery. Patient transferred to Dr. Nolen manager managing. documented in this encounter [facility] 12-10-2023 Telephone encounter Note Regan calls into the office stating that he was seen previously in the office. Patient stated that he could not have surgery due to his insurance requesting him to try therapy and injections. Patient stated that he has had an injection and had at least 6 sessions of physical therapy. Patient also states that he feels therapy is making his back worse. Regan call returned. Patient stated that he has done at least 6-7 sessions of therapy. Patient also stated that he had a therapy session that he cancelled for tomorrow because it hurts his back to much but he kept his appointment for Saturday because its in the water. Patient also stated that the therapist he saw yesterday was going to fax a note to the office stating that he has been doing therapy and it is hard on his body. Patient was informed that he would have to speak with Dr. Nolen manager managing about surgery. Patient transferred to Dr. Nolen manager managing. [facility] 11-27-2023 Miscellaneous Notes Kenneth left a message to ask how many physical therapy visits he should try to complete before scheduling surgery. Left message for Kenneth to let him know at least six visits usually show good effort but if these are unsuccessful he needs to make sure the physical therapist is documenting increase of pain or ineffectiveness. documented in this encounter [facility] 11-27-2023 Telephone encounter Note Kenneth left a message to ask how many physical therapy visits he should try to complete before scheduling surgery. [facility] 11-27-2023 Telephone encounter Note Left message for Kenneth to let him know at least six visits usually show good effort but if these are unsuccessful he needs to make sure the physical therapist is documenting increase of pain or ineffectiveness. [facility] 11-14-2023 History of Present illness Narrative Images from the original note were not included. [facility] [address] [place] [address], [address] [place] [address] * CHART NOTE ? 11/14/2023 Patient: Regan Green 1950 [id number] Nurse Practitioner: Carl Sosa CNP Physician: Mayco [...] He was seen by [facility] in [place], but was advised they could no longer help. He has not had any interventional pain procedures, but was seen at [facility] in [place], [place], but was advised he should be seen here first. Patient's imaging was discussed and reviewed to their understanding in office today. Patient has not yet exhausted all conservative measures of treatment and is agreeable to them namely CHANTELLE. Denies loss of community development planner strength, saddle anesthesia, urinary or bowel dysfunction, [...] Medical History: Diagnosis Date Carcinoma of prostate ([facility]) Diverticulitis Diverticulosis Fecal impaction ([facility]) Inflammation of sacroiliac joint [facility] [facility] Knee pain Low back pain Lumbar disc disorder Osteoarthritis Shingles UTI (urinary tract infection) Visual impairment PAST SURGICAL HISTORY Past Surgical History: Procedure Laterality Date ABDOMINAL ADHESION SURGERY COLONOSCOPY COLONOSCOPY N/A 03/25/2023 Performed by Matt Campbell DO at [facility] HERNIA REPAIR Left inguinal HIP SURGERY Left [...] Right achilles 2+ Left achilles 2+ Right community development planner 2+ Left community development planner 2+ Right Mack reflex absent and left [...] visible abscess or suspicious gas within the zdayz-nx-vzqz Close clinical follow-up and short-term progress repeat [...] but was seen at Pain Management in [place], [place], but was advised he should be [...] record of the patient encounter. Inadvertent computerized feed handler errors related to syntax, spelling, homophones, and/or inaudibility may be present. Scribe Statement: Scribed for and in the presence of JOSEMANUEL Kirk by Joshua Higginbotham. JOSEMANUEL Kirk 11/14/23 1630 documented in this encounter [facility] 11-14-2023 Instructions AINSLEY Szymanski - 11/14/2023 9:30 AM EST Patient was seen by Dr. oNlen and JOSEMANUEL Chappell Patient was given an order for an x ray Lumbar spine Flex/Ext Medrol pack Physical therapy Referral for Lumbar to PT services Pain management referral for Lumbar L3-4 Patient will follow up after Pain management JA documented in this encounter [facility] 11-05-2023 Miscellaneous Notes ED Outreach This documentation is being used for Transition of Care purposes: Yes/No: Yes ED Outreach Date: November 05, 2023 ED Outreach Method: COMMUNICATION METHOD: Telephone ED Outreach Attempt: first ED Outreach Outcome: Contacted Patient Name of ED Facility: [facility] Date of ED Discharge: 10/31/2023 Discharge Diagnosis: [...] with additional concerns. [facility]23 Telephone encounter Note ED Outreach This documentation is being used for Transition of Care purposes: Yes/No: Yes ED Outreach Date: November 05, 2023 ED Outreach Method: COMMUNICATION METHOD: Telephone ED Outreach Attempt: first ED Outreach Outcome: Contacted Patient Name of ED Facility: [facility] Date of ED Discharge: 10/31/2023 Discharge Diagnosis: [...] will contact the office with additional concerns. [facility] 10-30-2023 Evaluation note Encounter Date Diagnosis Assessment [...] pain of right shoulder (ICD-10 - M25.511) [facility] Other 12-19-2023 NoteCT LUMBAR SPINE WO CONT [...] abscess or suspicious gas visible within the jzknj-fm-dyfx. Repeat contrast abdominal pelvic CT may prove useful in combination with colonic screening with appropriate Probable parapelvic cysts in the left kidney Prominent vascular calcifications There is some metal artifact related to a prior surgery at the left acetabular region. There are also clips in the low pelvis as seen on the bsw image Sagittal images include from the lower [...] visible abscess or suspicious gas within the vzupa-ye-qtpv Close clinical follow-up and short-term progress repeat abdominal pelvic contrast CT and colonic screening considered There is also be severe degenerative change of the lumbar spine and relatively severe canal and neural foraminal stenosis probably greatest at L3-4 and L4-5 levels There is no compression deformity or destructive bone process Finalized by Renaldo Tinajero MD on 10/22/2023 1:09 [facility] 08-20-2023 Evaluation note* Encounter Date Diagnosis [...] pain of right shoulder (ICD-10 - M25.511) [facility] Other 09-19-2023 Evaluation note* Encounter Date Diagnosis [...] pain of right shoulder (ICD-10 - M25.511) [facility] Other 08-21-2023 Evaluation note* Encounter Date Diagnosis [...] pain of right shoulder (ICD-10 - M25.511) [facility] Other 07-18-2023 Evaluation note* Encounter Date Diagnosis [...] given order for occupational therapy and braces [facility] Other 05-16-2023 NoteCONSULTATION CONSULTATION DATE: 03/19/2023 TO: [...] our patients to inform us about any chlg-ncl-swvvxka medications or herbal remedies/nutritional supplements/alternative remedies. 2. [...] treatment options with their primary care provider.[facility] [id number] Note CONSULTATION PROCEDURE DATE: 02/21/2023 PROCEDURE: Right [...] removed. He was discharged after meeting criteriaThe [facility] [id number] NoteCONSULTATION CONSULTATION DATE: 12/18/2022 CHIEF COMPLAINT: Left [...] like to proceed. CC: Sumanth Hill M.D.[facility] [id number] NoteCONSULTATION PROCEDURE DATE: 12/18/2022 PREOPERATIVE DIAGNOSIS: Osteoarthritis [...] will be followed up in the office.[facility] [id number] NoteCONSULTATION CONSULTATION DATE: 11/22/2022 HISTORY OF PRESENT [...] food. We will send a referral to [facility] to have his left CMC joint evaluated. Patient does agree with this, and we will follow him up in the clinic in three months' time.[facility] [id number] NotePROCEDURE: XR HAND LT MIN 3V HISTORY: [...] by: ALESSANDRO MEJIA Date: 2022-09-26 22:39[facility]11-17-2022 NoteCONSULTATION CONSULTATION DATE: 09/20/2022 HISTORY OF [...] mg t.i.d., Percocet 5/325 b.i.d., multivitamin and Avjse-Kj-Hoho. Patient, procedure-holloway, had radiofrequency ablation of his [...] to the clinic thereafter for follow up.[facility] [id number] NoteCONSULTATION CONSULTATION DATE: 08/02/2022 HISTORY OF PRESENT [...] lately, carrying heavy feed bags into the [employer] for hunting season. He knows he is [...] of care and all questions were answered.[facility] [id number] NoteCONSULTATION CONSULTATION DATE: 06/14/2022 This is a [...] and Achilles reflexes are +2. DIAGNOSIS: Code [facility] is 724.6. PLAN: We will authorize for a left SI joint injection, refill his Percocet 5/325 b.i.d. and refill Diclofenac 50 mg t.i.d. He is compliant with his vitamin regimen. At this time, I reiterated the use of heat and stretches. The patient will be followed in the clinic post-procedure and agrees to move forward.[facility] HospitalEvaluation noteNo assessment information available [facility] Work Phone: Evaluation note* Diagnosis Lumbar radiculopathy, chronic- Primary [facility]* Diagnosis Neurogenic claudication- Primary Spinal stenosis of lumbar region Lumbar radiculopathy, chronic documented in this [facility]* Diagnosis Radiculopathy, lumbar region Thoracic or lumbosacral neuritis or radiculitis, unspecified Neurogenic claudication Spinal stenosis of lumbar region Radiculopathy, lumbar region Thoracic or lumbosacral neuritis or radiculitis, unspecified Neurogenic claudication Spinal stenosis of lumbar region Monitoring for anticoagulant use Encounter for long-term (current) use of 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 Abnormal urine findings Other nonspecific finding on examination of urine Radiculopathy, lumbar region Thoracic or lumbosacral neuritis or radiculitis, unspecified Neurogenic claudication Spinal stenosis of lumbar region documented in this encounter [facility]* Diagnosis Radiculopathy, lumbar region- Primary Thoracic or lumbosacral neuritis or radiculitis, unspecified Radiculopathy, lumbar region Thoracic or lumbosacral neuritis or radiculitis, unspecified Neurogenic claudication Spinal stenosis of lumbar region Neurogenic claudication Spinal stenosis of lumbar region [facility] Diagnosis Onset Date Resolution Status Left hand pain acute 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, left hand acute [facility] Work Phone: History general Narrative - Reported* Type Description Date Medical History post knee right replacement Surgical History knee replacement right Surgical History hernia Surgical History prostatectomy Surgical History acetabulum fx Hospitalization History see above [facility] Other InstructionsNot on filedocumented in this encounter [facility] filedocumented in this encounter [facility] System[facility]ructionsNot on filedocumented in this encounter [facility] SystemInstructionsNot on filedocumented in this encounter [facility] SystemReason for referral (narrative)* Consultation (Routine) - Pending Review Specialty Diagnoses / Procedures Referred By Gaston borges Referred To Contact Neurosurgery Diagnoses Lumbar radiculopathy, chronic Sumanth Hill MD [address] [place] [id number] Mayco Nolen MD [facility] [address] [phone] Referral ID Status Reason Start Date Expiration Date Visits Requested Visits Authorized [id number] Pending Review Specialty Services Required 11/05/2023 11/04/2024 1 1 [facility] ([facility])* Consultation (Routine) - Pending Review Specialty Diagnoses / Procedures Referred By Gaston borges Referred To Contact Pain Medicine Diagnoses Lumbar radiculopathy, chronic Neurogenic claudication Carl Sosa APRN-CNP [address] [place] [address] [facility], [address] [address] Referral ID Status Reason Start Date Expiration Date V isits Requested Visits Authorized [id number] Pending Review 11/14/2023 11/13/2024 1 1 * Physical Therapy (Routine) - Pending Review Specialty Diagnoses / Procedures Referred By Gaston t Referred To Contact Rehabilitation Diagnoses Lumbar radiculopathy, chronic Neurogenic claudication Carl Sosa APRN-CNP [address] [address] [facility] [address] [place] [address] Referral ID Status Reason Start Date Expiration Date Visits Requested Visits Authorized [id number] Pending Review Specialty Services Required 11/14/2023 11/13/2024 1 1 [employer] [facility] Summary Purpose Family History No Family History Records Found Relationship Condition Age at Onset Recorded Date/T akil father Unknown Not Specified Unknown Chronic obstructive pulmonary disease Unk nown Advance Directives No Advanced Directives Records Found [...] Date Activated Date Inactivated Comments Full Code 12/27/2023 2:16 AM 12/27/2023 2:55 PM Code Status History Code Status Date Activated Date Inactivated Comments Full Code 10/04/2023 11:04 AM 10/06/2023 2:53 PM Chief Complaint and Reason for Visit Chief Complaint M79.642 Chief Complaint 3 months Reason for Visit Left hand pain Unilateral primary osteoarthritis of first carpometacarpal joint, left hand Additional Source Comments (unrecognized sect ion and content) No Status Records FoundNo Status Records FoundNo Status Records FoundNo Status Records FoundNo Status Records FoundNo Status Records FoundNo Status Records FoundNo Status Records FoundNo Status Records Found INFORMATION SOURCE (unrecogn ized section and content) DATE CREATED AUTHOR 04/21/2018 [facility] DATE CREATED AUTHOR AUTHOR'S ORGANIZ ATION 12/04/2021 [facility] DATE CREATED AUTHOR AUTHOR'S ORGANIZ ATION 02/25/2022 [facility] dical Specialist DATE CREATED AUTHOR AUTHOR'S ORGANIZ ATION 04/12/2023 [facility] DATE CREATED AUTHOR AUTHOR'S ORGANIZ ATION 07/01/2023 [facility] DATE CREATED AUTHOR AUTHOR'S ORGANIZ ATION 11/27/2023 [facility] DATE CREATED AUTHOR AUTHOR'S ORGANIZ ATION 02/13/[address] 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 pkt Specialty Diagnoses / Procedures Referred By Contac t Referred To Contact Neurosurgery Diagnoses Lumbar radiculopathy, chronic Defrance, Sumanth Borges MD [address] [place] [address] Mayco Nolen MD [address] [place] [phone] Referral ID Status Reason Start Date Expiration Date Visits Requested Visits Authorized [id number] Pending Review Specialty Services Required 11/05/2023 11/04/2024 1 1 Reason Onset Date Comments surgery 12/10/2023 Reason Onset Date Comments surgery 12/24/2023 Specialty Diagnoses / Procedures Referred By Contac t Referred To Contact Referral ID Status Reason Start Date Expiration Date Visits Re quested Visits Authorized [id number] 1 1 Care Teams (unrecognized sec tion [...] Active Charity Barkley MD Attending Provider Active Ward Aide Relationship Specialty Start Date End Date Sumanth Hill MD [address] [address] PCP - General Family Medicine 01/16/23 Ward Aide Relationship Specialty Start Date End Date Sumanth Hill MD [address] [address] PCP - General Family Medicine 01/16/23 Ward Aide Relationship Specialty Start Date End Date Sumanth Hill MD [address] [place] [address] PCP - General Family Medicine 01/16/23 Ward Aide Relationship Specialty Start Date End Date Sumanth Hill MD [address] [place] [address] PCP - General Family Medicine 01/16/23 Ward Aide Relationship Specialty Start Date End Date Sumanth Hill MD [address] [place] [address] PCP - General Family Medicine 01/16/23 Ward Aide Relationship Specialty Start Date End Date Sumanth Hill MD [address] [place] [address] PCP - General Family Medicine 01/16/23 Ward Aide Relationship Specialty Start Date End Date Sumanth Hill MD [address] [place] [address] PCP - General Family Medicine 01/16/23 Ward Aide Relationship Specialty Start Date End Date Sumanth Hill MD [address] [place] [address] PCP - General Family Medicine 01/16/23 Team Status: Inactive Member Role Status Dates NON STAFF Primary Care Provider Active Start: January 29, 2024 End: January 29, 2024 Charity Barkley MD Attending Provider Active Start: January 29, 2024 End: January 29, 2024 Goals (unrecognized section and content) Goals may be documented in a n alternate section Scheduled Active and Recently Administ ered Medications (unrecognized section and content) Medication Order 12/25/2023 12/26/2023 12/27/2023 acetaminophen (TYLENOL EXTRA STRENGTH) tablet 1,000 mg (COMPLETED) 1,000 mg, oral, Once, On Sat12/25/23 at 1445, For 1 dose, Pre-op 1456 (Given - Provider: Vibha Saeed RN) ceFAZolin (ANCEF) 2,000 mg in sodium chloride 0.9 % 50 mL IVPB-MBP () 2,000 mg, intravenous, at 100 mL/hr, Administer over 30 Minutes, Every 8 hours, First dose on 12/25/23 at 1945, For 2 doses, PACU & Post-op, Pharmacy to adjust per renal function; Start 8 hours after pre-op dose for total of 3 doses including pre-op dose. Infuse all doses within 24 hours of initial dose. For patient less than 120 kg. ADD-VANTAGE/MBP- Discard 24 hours after activating; dissolve drug prior to administration, Indication: Surgical prophylaxis 1944 (Due)2113 (New Bag - Provider: Shira Thomas RN)2143 (Stop Bag - Provider: Bandar Bahena, MIREILLE) enoxaparin (LOVENOX) syringe 40 mg 40 mg, subcutaneous, Daily, First dose on Tanya 12/26/23 at 0600, PACU & Post-op, When Creatinine Clearance 30 mL/min or greater Look-alike/sound-alike medication - verify indication for use. 0525 (Given - Provider: Bandar Bahena RN) 0521 (Given - Provider: Pineda Alexandra RN) gabapentin (NEURONTIN) tablet 600 mg 600 mg, oral, 2 times daily, First dose on Sat12/25/23 at 2100, PACU & Post-op, Look-alike/sound-alike medication - verify indication for use. 2003 (Given - Provider: Shira Thomas RN) 822 (Given - Provider: José Miguel Devine RN)2022 (Given - Provider: Pineda Alexandra, RN) 943 (Given - Provider: Michaelle Zeng, MIREILLE) gentamicin 160 mg in 0.9% sod chl 1000 mL irrigation (bag) (COMPLETED) irrigation, Once, On Sat12/25/23 at 1600, For 1 dose, Intra-op 1520 (Given - Provider: Mayco Nolen MD - Comment: GAVE TO STERILE TABLE FOR SURGEONS USE.)1600 (Due) lactated ringers bolus (COMPLETED) 1,000 mL, intravenous, at 2,000 mL/hr, Administer over 0.5 Hours, Once, On Sat12/27/23 at 0915, For 1 dose 0905 (New Bag - Provider: Michaelle Zeng RN)0935 (Stop Bag - Provider: Michaelle Zeng, RN) methocarbamoL (ROBAXIN) tablet 500 mg 500 mg, oral, 4 times daily, First dose on Tanya 12/26/23 at 0900 0912 (Given - Provider: José Miguel Devine RN)1414 (Given - Provider: José Miguel Devine RN)1752 (Given - Provider: José Miguel Devine RN)2150 (Given - Provider: Pineda Alexandra, MIREILLE) 0945 (Given - Provider: Michaelle Zeng, MIREILLE) polyethylene glycol (GLYCOLAX) packet 17 g 17 g, oral, Daily, First dose on Sat12/25/23 at 1945, PACU & Post-op, Look-alike/sound-alike medication - verify indication for use. Dissolve 1 packet (17 gm) in 8 ounces of water, juice, soda, coffee or tea. 2055 (Given - Provider: Shira Thomas RN) 822 (Given - Provider: José Miguel Devine RN) 943 (Given - Provider: Michaelle Zeng, MIREILLE) sennosides-docusate sodium (SENOKOT-S) 8.6-50 mg 1 tablet 1 tablet, oral, 2 times daily, First dose on Tanya 12/26/23 at 0900, PACU & Post-op, Start Post-Op Day 1: Hold for diarrhea 821 (Given - Provider: José Miguel Devine RN)2022 (Given - Provider: Pineda Alexandra RN) 09 (Given - Provider: Michaelle Zeng, RN) sodium chloride 0.9 % flush 3 mL 3 mL, intravenous, Every 12 hours scheduled, First dose on Sat12/25/23 at 2100, PACU & Post-op, Once tolerating oral intake 2099 (Given - Provider: Shira Thomas RN) 08 (Given - Provider: José Miguel Devine RN)2022 (Given - Provider: Pineda Alexandra, MIREILLE) 0900 (Not Given - Provider: Michaelle Zeng RN - Reason: IV infusing) sodium chloride 0.9 % flush 3 mL (CANCELED) 3 mL, intravenous, Every 12 hours scheduled, First dose on Sat12/25/23 at 1445, Pre-op 1445 (Not Given - Provider: Vibha Saeed RN - Reason: IV infusing)2100 (Given - Provider: Shira Thomas RN) tiZANidine (ZANAFLEX) tablet 8 mg (CANCELED) 8 mg, oral, 3 times daily, First dose on Sat12/25/23 at 2000, PACU & Post-op, Look-alike/sound-alike medication - verify indication for use., Indications: muscle spasm 1945 (Given - Provider: Shira Thomas RN) 0800 (Not Given - Provider: José Miguel Devine RN - Reason: See Provider Order) Continuous Medication Order 12/25/2023 12/26/2023 12/27/2023 lactated ringers infusion (CANCELED) 75 mL/hr, intravenous, Continuous, Starting on Sat12/25/23 at 1445, Pre-op, If fluid restriction is not indicated, infuse at a rate up to 5 mL/kg/hr not to exceed the total replacement volume (2 ml/kg/hr) from the time NPO status was initiated. 1445 (New Bag - Provider: Vibha Saeed RN)1948 (New Bag - Provider: Shira Thomas RN) 1900 (Stop Bag - Provider: Pineda Alexandra RN - Comment: not hanging at start of shift) PRN Medication Order 12/25/2023 12/26/2023 12/27/2023 acetaminophen (TYLENOL) tablet 650 mg 650 mg, oral, Every 4 hours PRN, mild pain - pain scale 1-3, fever of 38.6, Starting on Sat12/25/23 at 1932, PACU & Post-op, Do not give for fever if patient received acetaminophen containing products within 4 hours. bisacodyL (DULCOLAX) suppository 10 mg 10 mg, rectal, As needed, constipation, if no BM within 6 hours of administering Milk of Magnesia, Starting on Sat12/27/23 at 0000, PACU & Post-op, Start Post-Op Day 2 Look-alike/sound-alike medication - verify indication for use. dextrose (GLUTOSE) 40 % gel 15 g 15 g, oral, As needed, low blood sugar, blood glucose less than 70 mg/dL, Starting on Sat12/25/23 at 1932, PACU & Post-op, If patient conscious and taking PO. If blood glucose is not greater than 70 mg/dL after initial treatment, repeat treatment. dextrose 5 % (D5W) infusion 100 mL/hr, intravenous, Continuous PRN, blood glucose less than 70 mg/dL, Starting on Sat12/25/23 at 1932, PACU & Post-op, Use immediately following dextrose 50% or glucagon treatment for patients who are unconscious or NPO. Contact prescriber for additional orders. If blood glucose is not greater than 70 mg/dL after initial treatment, repeat treatment. dextrose 50 % in water (D50W) 50% solution 25 mL 25 mL, intravenous, As needed, low blood sugar, blood glucose less than 70 mg/dL and unconscious or NPO with IV access, Starting on Sat12/25/23 at 1932, PACU & Post-op, Push over 1-3 minutes STAT. If conscious and not NPO, immediately follow with meal tray or high protein (7 grams) snack if tray not available. If NPO, initiate 5% dextrose in water at 100 mL/hr and contact prescriber for additional orders. If blood glucose is not greater than 70 mg/dL after initial treatment, repeat treatment. VESICANT (RED) Warning: HYPERTONIC solution. fentaNYL (SUBLIMAZE) injection 12.5 mcg(Linked Group 1) 12.5 mcg, intravenous, Every 1 hour prn, mild pain - pain scale 1-3, Starting on Sat12/25/23 at 1932, PACU & Post-op, Discontinue NPO pain medication orders once tolerating oral intake and switch to oral regimen. Notify prescriber if patient reported pain level remains unchanged or uncontrolled with current medication regimen. Look-alike/sound-alike medication - verify indication for use. fentaNYL (SUBLIMAZE) injection 25 mcg(Linked Group 1) 25 mcg, intravenous, Every 1 hour prn, moderate pain - pain scale 4-6, Starting on Sat12/25/23 at 1932, PACU & Post-op, Discontinue NPO pain medication orders once tolerating oral intake and switch to oral regimen. Notify prescriber if patient reported pain level remains unchanged or uncontrolled with current medication regimen. Look-alike/sound-alike medication - verify indication for use. fentaNYL (SUBLIMAZE) injection 50 mcg(Linked Group 1) 50 mcg, intravenous, Every 1 hour prn, severe pain - pain scale 7-10, Starting on Sat12/25/23 at 1932, PACU & Post-op, Discontinue NPO pain medication orders once tolerating oral intake and switch to oral regimen. Notify prescriber if patient reported pain level remains unchanged or uncontrolled with current medication regimen. Look-alike/sound-alike medication - verify indication for use. fentaNYL (SUBLIMAZE) injection 50 mcg (CANCELED) 50 mcg, intravenous, Every 5 min PRN, Pain Scale 6-10, Starting on Sat12/25/23 at 1651, PACU (only), Up to a maximum dose of 150 mcg. Look-alike/sound-alike medication - verify indication for use. 1723 (Given - Provider: Sheri Adler RN)1741 (Given - Provider: Sheri Adler RN) glucagon HCL injection 1 mg 1 mg, intramuscular, As needed, low blood sugar, blood glucose less than 70 mg/dL and unconscious or NPO without IV access., Starting on Sat12/25/23 at 1932, PACU & Post-op, If conscious and not NPO, immediately follow with meal tray or high protein (7Grams) snack if tray not available. If NPO, initiate IV 5% Dextrose/Water at 100 mL/hr and contact prescriber for additional orders. If blood glucose is not greater than 70 mg/dL after initial treatment, repeat treatment. lidocaine PF (XYLOCAINE) 10 mg/mL (1 %) injection 1 mg (CANCELED) 1 mg (0.1 mL), intradermal, As needed, times 1 per IV attempt for IV start pain control, Starting on Sat12/25/23 at 1434, Pre-op 1445 (Given - Provider: Vibha Saeed RN) lidocaine-EPINEPHrine (XYLOCAINE W/EPI) 1 %-1:[id number] injection (CANCELED) As needed, Starting on Sat12/25/23 at 1551, Intra-op 1551 (Given - Provider: Mayco Nolen MD) magnesium hydroxide (MILK OF MAGNESIA) suspension 30 mL 30 mL, oral, 2 times daily PRN, if no BM by post-op day 2, Starting on Sat12/27/23 at 0000, PACU & Post-op, Start Post-Op Day 2: DO NOT use in Renal/Dialysis patients Shake well. midazolam (PF) (VERSED) injection 2 mg (CANCELED) 2 mg, intravenous, As needed, anxiety, Starting on Sat12/25/23 at 1434, For 2 doses, Pre-op, May repeat in 10 minutes, if needed, if original midazolam (VERSED) ineffective, Indication: Other, Indication: anxiety 1458 (Given - Provider: Vibha Saeed RN) ondansetron (PF) (ZOFRAN) injection 4 mg 4 mg, intravenous, Every 6 hours PRN, nausea, vomiting, Starting on Sat12/25/23 at 1932, PACU & Post-op, Administer over 2-5 minutes. oxyCODONE (ROXICODONE) immediate release tablet 10 mg(Linked Group 2) 10 mg, oral, Every 3 hours PRN, severe pain - pain scale 7-10, Starting on Sat12/25/23 at 1715, PACU & Post-op, Look-alike/sound-alike medication - verify indication for use. Immediate release. 172 (Given - Provider: Sheri Adler RN)2056 (Given - Provider: Shira Thomas RN)2335 (Given - Provider: Bandar Bahena RN) 0451 (Given - Provider: Bandar Bahena, RN)1227 (Given - Provider: José Miguel Devine RN)1752 (Given - Provider: José Miguel Devine RN) 0944 (Given - Provider: Michaelle Zeng, RN) oxyCODONE (ROXICODONE) immediate release tablet 5 mg(Linked Group 2) 5 mg, oral, Every 3 hours PRN, moderate pain - pain scale 4-6, Starting on Sat12/25/23 at 1715, PACU & Post-op, Look-alike/sound-alike medication - verify indication for use. Immediate release. 1721 (See Alternative - Provider: Sheri Adler RN)2057 (See Alternative - Provider: Shira Thomas RN)2335 (See Alternative - Provider: Bandar Bahena RN) 0451 (See Alternative - Provider: Bandar Bahena RN)1227 (See Alternative - Provider: José Miguel Devine RN)1752 (See Alternative - Provider: José Miguel Devine RN) 0944 (See Alternative - Provider: Michaelle Zeng, MIREILLE) sodium chloride 0.9 % flush 3 mL 3 mL, intravenous, As needed, line care, before and after each intermittent use, Starting on Sat12/25/23 at 1932, PACU & Post-op, Once tolerating oral intake thrombin (recombinant) (RECOTHROM) solution (CANCELED) As needed, Starting on Sat12/25/23 at 1556, Intra-op 1520 (Given - Provider: Mayco Nolen MD) tiZANidine (ZANAFLEX) tablet 4 mg (CANCELED) 4 mg, oral, Every 6 hours PRN, muscle spasms, Starting on Sat12/25/23 at 1434, Pre-op, Look-alike/sound-alike medication - verify indication for use. 1457 (Given - Provider: Vibha Saeed RN) Linked Groups Order Group 1: fentaNYL (SUBLIMAZE) injection 12.5 mcgJump to med 12.5 mcg, intravenous, Every 1 hour prn, mild pain - pain scale 1-3, Starting on Sat12/25/23 at 1932, PACU & Post-op, Discontinue NPO pain medication orders once tolerating oral intake and switch to oral regimen. Notify prescriber if patient reported pain level remains unchanged or uncontrolled with current medication regimen. Look-alike/sound-alike medication - verify indication for use. Or fentaNYL (SUBLIMAZE) injection 25 mcgJump to med 25 mcg, intravenous, Every 1 hour prn, moderate pain - pain scale 4-6, Starting on Sat12/25/23 at 1932, PACU & Post-op, Discontinue NPO pain medication orders once tolerating oral intake and switch to oral regimen. Notify prescriber if patient reported pain level remains unchanged or uncontrolled with current medication regimen. Look-alike/sound-alike medication - verify indication for use. Or fentaNYL (SUBLIMAZE) injection 50 mcgJump to med 50 mcg, intravenous, Every 1 hour prn, severe pain - pain scale 7-10, Starting on Sat12/25/23 at 1932, PACU & Post-op, Discontinue NPO pain medication orders once tolerating oral intake and switch to oral regimen. Notify prescriber if patient reported pain level remains unchanged or uncontrolled with current medication regimen. Look-alike/sound-alike medication - verify indication for use. Group 2: oxyCODONE (ROXICODONE) immediate release tablet 5 mgJump to med 5 mg, oral, Every 3 hours PRN, moderate pain - pain scale 4-6, Starting on Sat12/25/23 at 1715, PACU & Post-op, Look-alike/sound-alike medication - verify indication for use. Immediate release. Or oxyCODONE (ROXICODONE) immediate release tablet 10 mgJump to med 10 mg, oral, Every 3 hours PRN, severe pain - pain scale 7-10, Starting on Sat12/25/23 at 1715, PACU & Post-op, Look-alike/sound-alike medication - verify indication for use. Immediate release. FOR RECORDS PERTAINING TO PATIENTS WHO ARE [...] BE BASED ON THE PRIMARY CLINICAL RECORDS. [facility]. provides no warranty or guarantee of the accuracy or completeness of information in this document.
== END 2024-03-03 12:25 | disposition home or self-care (01) ==
LOC: PM 12:24
PROVIDERS: PCP Family Medicine; Visit Provider Anesthesiology Pain Medicine
DX: M54.16 Radiculopathy, lumbar region (principal); M62.838 Other muscle spasm
CPT/HCPCS: G0463

== ENCOUNTER 2024-04-07 12:23 | Outpatient (OUT) | payer MEDICARE, OTHER, SELFPAY ==
--- NOTE | 2024-04-07 | CONS_ITS ---
CONSULTATION DATE: 04/07/2024 TO: Juan Carlos Ngo M.D. CHIEF COMPLAINT: Includes right leg pain, right hip pain. HISTORY: He describes the pain as being 5-7/10 pain, sharp in character with what he describes as a needle-like component in his right lower extremity. Reports the pain increases with activities such as standing and walking and performing transitioning maneuvers. He feels most comfortable in the semi- recumbent position. Denies any change in bowel and bladder habits or new sensorimotor changes in the lower extremities. MEDICATION: Current medication includes diclofenac 75 mg b.i.d. He has been taking this for at least the last 6-8 weeks, which he reports offers him only marginal reduction of pain symptoms. Patient?s SRINIVAS on today?s visit is 46%. Other medication includes Neurontin 600 mg t.i.d., baclofen 10 mg t.i.d. and Percocet 5 mg b.i.d. EXAM: Notable for patient having no clinical myelopathy involving the lower extremities. Patient did appear to have hypoesthesia long the right L4 dermatome, weakness of his right quadriceps/anterior tibialis, depressed right patellar reflex and a straight leg raise that was equivocally positive at approximately 90 degrees. He had no signs consistently with myelopathy. He also appeared to have significant myofascial dysfunction of the right IT band. IMPRESSION: Our impression is patient appears to have chronic pain secondary to right IT band dysfunction, possible right L4 radiculopathy. RECOMMENDATIONS: I recommend increasing his baclofen 10 mg pills, 1-2 up to t.i.d. In the future, he may be an appropriate candidate for EMG of his right lower extremity and possibly a caudal epidural steroid injection under fluoroscopic guidance. We will follow up with the patient in approximately 4-6 weeks time to monitor his response to the change in medication. As part of providing excellent, safe, comprehensive care, the following was completed at our patient's visit: 1. A medication reconciliation and review to ensure accurate knowledge of current/active medications, including asking our patients to inform us about any xxmz-jlj-uhnybon medications or herbal remedies/nutritional supplements/alternative remedies. 2. A review to specifically ensure our patients have had annual screening for: elevated body mass index (BMI, see intake chart for exact total), tobacco use, screening for depression, and screening for unhealthy alcohol use. When screening is concerning, patients are provided with education and the specific recommendation to discuss the concerning health issue and treatment options with their primary care provider. IGLESIA
== END 2024-04-07 12:24 | disposition home or self-care (01) ==
LOC: PM 12:23
PROVIDERS: PCP Family Medicine; Visit Provider Anesthesiology Pain Medicine
DX: M79.604 Pain in right leg (principal); M25.551 Pain in right hip; M76.31 Iliotibial band syndrome, right leg; M54.16 Radiculopathy, lumbar region
CPT/HCPCS: G0463

== ENCOUNTER 2024-04-09 09:31 | Outpatient (OUT) | payer OTHER, SELFPAY ==
--- NOTE | 2024-04-09 09:43 | PM.CN ---
Consult Note: HPI Data of Consult Patient: known to practice within the last 3 years Consult date: 11/07/23 Requesting Physician: Danielle Davila NP Primary Care Provider: SUMANTH BECK Consult Narrative Narrative: Regan Green a pleasant 74 year old male following for chronic sacroiliitis under [facility]. 10/24/23 left SIJ injection with Dr Palm with >70% improvement greater than 3 months. Patient finds significant benefit from SIJ injections. Pain today 4/10 sharp increasing to 8/10 with standing activity sleep and yard work. Patient has failed to benefit from PT/HEP and medication therapy. cc:: CC: Danielle Davila NP Review of Systems ROS Status of ROS 10 or more systems reviewed and unremarkable except as noted in history and below Musculoskeletal Reports: joint pain PFSH PFSH Medical History Sacroiliitis, not elsewhere classified ?M46.1 - Sacroiliitis, not elsewhere classified (ICD-10) Meds Home Medications and Allergies Home Medications ?Medication ?Instructions ?Recorded ?Confirmed ?Type OSCAL WITH D PO .QD 04/18/23 History diclofenac sodium 75 mg 75 mg PO BID 04/18/23 11/18/23 History tablet,delayed release glucosamine-chondroitin 250 mg-200 2 tab PO .QD 04/18/23 11/18/23 History mg tablet (Osteo Bi-Flex) multivitamin 1 tab PO DAILY 04/18/23 11/18/23 History tizanidine 4 mg capsule 4 mg PO BID PRN muscle spasticity 10/24/23 11/18/23 History gabapentin 300 mg capsule 300 mg PO .qhs #30 caps 01/22/24 Rx oxycodone-acetaminophen 5 mg-325 1 tab PO BID PRN pain #60 tabs 01/22/24 Rx mg tablet (Percocet) vitamin B complex (Vitamins B 1 tab PO DAILY 01/22/24 01/22/24 History Complex tablet) oxycodone-acetaminophen 5 mg-325 1 tab PO BID PRN pain #60 tabs 02/19/24 Rx mg tablet (Percocet) oxycodone-acetaminophen 5 mg-325 1 tab PO BID PRN pain #60 tabs 03/20/24 Rx mg tablet (Percocet) Allergies Allergy/AdvReac Type Severity Reaction Status Date / Time No Known Drug Allergies Allergy Verified 11/18/23 10:53 Exam Constitutional Documenting provider has reviewed patient's vital signs: yes Common normals: no apparent distress, oriented x3, healthy appearing, alert and well nourished General appearance: cooperative HENMT Common normals: normocephalic, hearing grossly normal bilaterally and moist oral mucous membranes Head and scalp: normocephalic Eye Common normals: PERRL Pupil: PERRL Neck & C-Spine Common normals: full ROM General: normal visual inspection Chest Common normals: inspection of chest normal Respiratory Common normals: normal respiratory effort, no retractions and no use of accessory muscles Back & Pelvis Lumbar spine/lower back: normal to inspection Sacroiliac joints: SI joint(s) abnormal Other: Left positive adrián(patricks), gaenslens, thigh thrust, compression test Extremity Common normals: normal to inspection and full ROM Neuro Common normals: oriented x3, CN's II-XII intact bilaterally, moves all extremities, no focal motor deficits, no sensory deficits noted and deep tendon reflexes 2+ bilaterally Sensorium/orientation: alert Motor exam: strength 5/5 throughout and no movement abnormalities noted Psych Common normals: mental status grossly normal, thought process normal, cooperative, affect normal, speech normal and activity/motor behavior normal Speech: normal speech Thought process: normal thought process Results Additional Findings Additional findings: If on a controlled substance or opioids, I have checked an [place]ARRS report on this patient and there are no aberrancies noted in the prescribing history.??If on a controlled substance or opioid a drug screen was completed and reviewed within the last year, and if there has not been a drug screen completed we ordered one today to monitor higher risk, state monitored pain medication use. As part of providing excellent, safe, comprehensive care, the following was completed at our patient's visit: 1. A medication reconciliation and review to ensure accurate knowledge of current/active medications, including asking our patients to inform us about any awyw-ewn-cnitqin medications or herbal remedies/nutritional supplements/alternative remedies. 2. A review to specifically ensure our patients have had annual screening for screening for depression, screening for tobacco use, and screening for unhealthy alcohol use. For concerning screenings had a discussion with the patient, provided patient education, and recommended follow-up with primary care provider when appropriate. If patient noted with a risk of falling, they received education on strength, gait, and balance training to prevent future risk of falling. Assessment and Plan Assessment and Plan (1) Sacroiliitis: Plan repeat left SIJ injection as previous injection provided >70% improvement greater than 3 months f/u after SIJ injection
== END 2024-04-09 09:32 | disposition home or self-care (01) ==
LOC: PM 09:31
PROVIDERS: PCP Family Medicine; Visit Provider Nurse Practitioner
DX: M46.1 Sacroiliitis, not elsewhere classified (principal)
CPT/HCPCS: G0463

== ENCOUNTER 2024-04-21 09:40 | Day surgery (SDC) | payer OTHER, SELFPAY ==
[2024-04-21 09:58] VITALS: BP 114/91; PULSE 86; TEMP 36.1; O2SAT 98
[2024-04-21 10:48] VITALS: PULSE 75; O2SAT 95
[2024-04-21 10:49] VITALS: BP 151/72; BP 155/74; PULSE 74; O2SAT 95
--- NOTE | 2024-04-21 10:53 | W.PM.PROCNOT ---
Date of procedure: 04/21/24 Pre-op diagnosis: Sacrum Disorders (cpt M53.3) Post-op diagnosis: same as pre-op Procedure: Left sacroiliac joint injection - diagnostic Preop diagnosis includes pain secondary to Sacroiliitis and sacroiliac dysfunction, Postop diagnosis same Performed under fluoroscopic guidance Immediate complications none Anesthesia:none Solution used for injection: In each syringe, 2 milliliters 0.25% Marcaine omnipaque 3cc 2.5 mL is used for injection for each side Time out process compliant After informed consent obtained patient was brought to the procedure room placed in the prone position skin overlying the area was prepped and draped in a sterile fashion using betadine. 25 gauge spinal needle Insert over each of the target areas identified in fluoroscopy corresponding needles were advanced Under fluoroscopic guidance until the target/targets encountered , no indication of intravascular or Intraneuronal needle tip placement. Needle tip placement confirmed with injection of contrast under fluoroscopy in both AP and Lateral views. Solution injected .needles removed post procedurally. patient transferred to recovery room in stable condition to be discharged home after meeting criteria Anesthesia: Local Surgeon: Lisa Palm Condition: stable
[2024-04-21] MEDS: IOHEXOL 240 MG/ML - 10 ML VIAL 12 MG INJ (10:54)
[2024-04-21] MEDS: BUPIVACAINE HCL 0.25% PF 25 MG/10 ML VIAL 4 ML INJ (10:54)
[2024-04-21] MEDS: METHYLPREDNISOLONE ACETATE 40 MG/ML VIAL INJ (10:55)
== END 2024-04-21 11:00 | disposition home or self-care (01) ==
LOC: SURGOUT 09:41
PROVIDERS: PCP Family Medicine; Visit Provider Anesthesiology Pain Medicine
DX: M53.3 Sacrococcygeal disorders, not elsewhere classified (principal)
CPT/HCPCS: 27096; J0665; J1010; Q9966

== ENCOUNTER 2024-04-23 14:38 | Outpatient (OUT) | payer MEDICARE, OTHER, SELFPAY ==
--- NOTE | 2024-04-23 14:40 | P.CN_ITS ---
Consult Note: HPI Data of Consult Patient: known to practice within the last 3 years Requesting Physician: Danielle Davila NP Primary Care Provider: SUMANTH BECK Consult Narrative Reason for consult: f/u Narrative: Regan Green a pleasant 73 year old male presents for evaluation and management of chronic low back pain, lumbar stenosis, lumbar radiculopathy, myofascial pain. Patient following with Dr Slick CRAIG in [place], status post L2-[address] Nolen now recommending L4-5 CHANTELLE be completed. Recent lumbar MRI reveals moderate to severe multilevel stenosis. Pain today 7/10 burning stabbing to right low back radiating down right leg. continues to report mild improvement from gabapentin 600mg TID, baclofen 10-20 mg TID PRN, percocet 5/325mg BID PRN moderate to severe pain. Pain increased with standing walking sitting sleeping, no improvement with heat/ice. cc:: CC: Danielle Davila NP Review of Systems ROS Status of ROS 10 or more systems reviewed and unremark able except as noted in history and below Musculoskeletal Reports: back pain and extremity pain PFSH PFSH Medical History (Updated 04/23/24 @ 14:59 by Danielle Davila NP) Rheumatoid arthritis ?M06.9 - Rheumatoid arthritis, unspecified (ICD-10) Low back pain ?M54.50 - Low back pain, unspecified (ICD-10) Prostate cancer ?C61 - Malignant neoplasm of prostate (ICD-10) Sacroiliitis, not elsewhere classified ?M46.1 - Sacroiliitis, not elsewhere classified (ICD-10) Surgical History Status post hip surgery ?Z98.890 - Other specified postprocedural states (ICD-10) S/P hernia repair ?Z98.890 - Other specified postprocedural states (ICD-10) ?Z87.19 - Personal history of other diseases of the digestive system (ICD-10) S/P total knee arthroplasty ?Z96.659 - Presence of unspecified artificial knee joint (ICD-10) S/P prostatectomy ?Z90.79 - Acquired absence of other genital organ(s) (ICD-10) Meds Home Medications and Allergies Home Medications ?Medication ?Instructions ?Recorded ?Confirmed ?Type OSCAL WITH D PO .QD 04/18/23 History diclofenac sodium 75 mg 75 mg PO BID 04/18/23 04/21/24 History tablet,delayed release glucosamine-chondroitin 250 mg-200 2 tab PO .QD 04/18/23 04/21/24 History mg tablet (Osteo Bi-Flex) multivitamin 1 tab PO DAILY 04/18/23 04/21/24 History gabapentin 300 mg capsule 300 mg PO .qhs #30 caps 01/22/24 04/21/24 Rx oxycodone-acetaminophen 5 mg-325 1 tab PO BID PRN pain #60 tabs 01/22/24 04/21/24 Rx mg tablet (Percocet) vitamin B complex (Vitamins B 1 tab PO DAILY 01/22/24 04/21/24 History Complex tablet) oxycodone-acetaminophen 5 mg-325 1 tab PO BID PRN pain #60 tabs 02/19/24 04/21/24 Rx mg tablet (Percocet) oxycodone-acetaminophen 5 mg-325 1 tab PO BID PRN pain #60 tabs 03/20/24 04/21/24 Rx mg tablet (Percocet) oxycodone-acetaminophen 5 mg-325 1 tab PO BID PRN pain #60 tabs 04/17/24 04/21/24 Rx mg tablet (Percocet) baclofen 10 mg tablet 10 mg PO Q6H 04/21/24 04/21/24 History Allergies Allergy/AdvReac Type Severity Reaction Status Date / Time No Known Drug Allergies Allergy Verified 11/18/23 10:53 Exam Constitutional Documenting provider has reviewed patient's vital signs: yes Common normals: no apparent distress, oriented x3, healthy appearing, alert and well nourished General appearance: cooperative [facility] Common normals: normocephalic, hearing grossly normal bilaterally and moist oral mucous membranes Head and scalp: normocephalic Eye Common normals: PERRL Pupil: PERRL Neck & C-Spine Common normals: full ROM General: normal visual inspection Chest Common normals: inspection of chest normal Respiratory Common normals: normal respiratory effort, no retractions and no use of accessory muscles Back & Pelvis Lumbar spine/lower back: ROM limited, pain with ROM and straight leg raise positive right Other: RLE 4/5 strength decreased sensation to right L4,5,S1 pattern Extremity Common normals: normal to inspection and full ROM Neuro Common normals: oriented x3, CN's II-XII intact bilaterally, moves all extremities, no focal motor deficits, no sensory deficits noted and deep tendon reflexes 2+ bilaterally Sensorium/orientation: alert Gait (neuro): antalgic Motor exam: no movement abnormalities noted and strength abnormal Other: strength 4/5 in RLE, 5/5 in LLE Psych Common normals: mental status grossly normal, thought process normal, cooperative, affect normal, speech normal and activity/motor behavior normal Speech: normal speech Thought process: normal thought process Results Additional Findings Additional findings: If on a controlled substance or opioids, I have checked an OARRS report on this patient and there are no aberrancies noted in the prescribing history.??If on a controlled substance or opioid a drug screen was completed and reviewed within the last year, and if there has not been a drug screen completed we ordered one today to monitor higher risk, state monitored pain medication use. As part of providing excellent, safe, comprehensive care, the following was completed at our patient's visit: 1. A medication reconciliation and review to ensure accurate knowledge of current/active medications, including asking our patients to inform us about any fxai-rzk-[id number] medications or herbal remedies/nutritional supplements/alternative remedies. 2. A review to specifically ensure our patients have had annual screening for screening for depression, screening for tobacco use, and screening for unhealthy alcohol use. For concerning screenings had a discussion with the patient, p rovided patient education, and recommended follow-up with primary care provider when appropriate. If patient noted with a risk of falling, they received education on strength, gait, and balance training to prevent future risk of falling. Assessment and Plan Assessment and Plan (1) Lumbar stenosis with neurogenic claudication: (2) Post laminectomy syndrome: (3) Lumbar radiculopathy: (4) Lumbar stenosis: Qualifiers: Neurogenic claudication status: with neurogenic claudication Qualified Code(s): M48.062 - Spinal stenosis, lumbar region with neurogenic claudication (5) Muscle spasm: (6) Chronic prescription opiate use: Assessment and Plan: I feel these medications are improving the patient's quality of life and allow them to tolerate activities of daily living as well as participate in recreational activity.? The patient does not report intolerable side effects. The patient is NOT opioid naive and non-pharmacologic and non-opioid treatment has failed to significantly relieve the patient's pain and improve functionality. The patient has a diagnosis that is related to a somatic or visceral pain etiology. ? ?? I reviewed with the patient the potential risks and side effects with the use of? opioid medications including but not limited to respiratory depression,? sedation, and even . I verified the patient has access to naloxone should? these effects occur. I advised the patient to avoid the use of any other? sedation substances including alcohol, THC, and benzodiazepines while? taking opioid medications due to the risk of compounding side effects and? detrimental outcomes. I reviewed the [employer], pain treatment agreement, urine? drug screen, and opioid start talking forms. The patient was advised to let? their family know they had Naloxone in case they would need to administer? the medication.? The patient was advised that U.S. Food and Drug Administration (FDA) is warning that respiratory depression may occur in patients using gabapentin (Neurontin, Gralise, Horizant) or pregabalin (Lyrica, Lyrica CR) who have respiratory risk factors. These include the use of opioid pain medicines and other drugs that depress the central nervous system, and conditions such as chronic obstructive pulmonary disease (COPD) that reduce lung function. The elderly are also at higher risk.? A drug screen was completed within the last year, and no aberrancies were noted regarding their use of controlled substances. The patient understands they are subject to the terms and conditions of the pain contract that they have signed. ? ?? I have checked an OARRS report on this patient today and there are no aberrancies noted in the prescribing history.? Plan L4-5 CHANTELLE under fluoroscopy for lumbar stenosis with NC continue f/u with Dr Kruger continue gabapentin 600mg TID continue percocet 5-325mg BID PRN moderate to severe pain and tizanidine 4-8mg TID PRN f/u 2 weeks after CHANTELLE
== END 2024-04-23 14:39 | disposition home or self-care (01) ==
PROVIDERS: PCP Family Medicine; Visit Provider Nurse Practitioner
DX: M48.062 Spinal stenosis, lumbar region with neurogenic claudication (principal); M96.1 Postlaminectomy syndrome, not elsewhere classified; M54.16 Radiculopathy, lumbar region; M62.838 Other muscle spasm; Z79.891 Long term (current) use of opiate analgesic
CPT/HCPCS: G0463

== ENCOUNTER 2024-04-30 08:36 | Outpatient (OUT) | payer OTHER, SELFPAY ==
--- NOTE | 2024-04-30 08:08 | PM.CN ---
Consult Note: HPI Data of Consult Patient: known to practice within the last 3 years Consult date: 11/07/23 Requesting Physician: Danielle Davila NP Primary Care Provider: SUMANTH BECK Consult Narrative Reason for consult: SIJ f/u Narrative: Regan Green a pleasant 74 year old male following for chronic sacroiliitis under [facility]. Patient finds significant benefit from SIJ injections. Pain today 2/10 sharp increasing to 4/10 with standing activity sleep and yard work. Patient has failed to benefit from PT/HEP and medication therapy. Recent left SIJ injection providing 90% improvement in pain and function per patient. Denies side effects to current medication regimen. cc:: CC: Danielle Davila NP Review of Systems ROS Status of ROS 10 or more systems reviewed and unremarkable except as noted in history and below Musculoskeletal Reports: extremity pain PFSH PFSH Medical History Rheumatoid arthritis ?M06.9 - Rheumatoid arthritis, unspecified (ICD-10) Low back pain ?M54.50 - Low back pain, unspecified (ICD-10) Prostate cancer ?C61 - Malignant neoplasm of prostate (ICD-10) Sacroiliitis, not elsewhere classified ?M46.1 - Sacroiliitis, not elsewhere classified (ICD-10) Surgical History Status post hip surgery ?Z98.890 - Other specified postprocedural states (ICD-10) S/P hernia repair ?Z98.890 - Other specified postprocedural states (ICD-10) ?Z87.19 - Personal history of other diseases of the digestive system (ICD-10) S/P total knee arthroplasty ?Z96.659 - Presence of unspecified artificial knee joint (ICD-10) S/P prostatectomy ?Z90.79 - Acquired absence of other genital organ(s) (ICD-10) Meds Home Medications and Allergies Home Medications ?Medication ?Instructions ?Recorded ?Confirmed ?Type OSCAL WITH D PO .QD 04/18/23 History diclofenac sodium 75 mg 75 mg PO BID 04/18/23 04/21/24 History tablet,delayed release glucosamine-chondroitin 250 mg-200 2 tab PO .QD 04/18/23 04/21/24 History mg tablet (Osteo Bi-Flex) multivitamin 1 tab PO DAILY 04/18/23 04/21/24 History gabapentin 300 mg capsule 300 mg PO .qhs #30 caps 01/22/24 04/21/24 Rx oxycodone-acetaminophen 5 mg-325 1 tab PO BID PRN pain #60 tabs 01/22/24 04/21/24 Rx mg tablet (Percocet) vitamin B complex (Vitamins B 1 tab PO DAILY 01/22/24 04/21/24 History Complex tablet) oxycodone-acetaminophen 5 mg-325 1 tab PO BID PRN pain #60 tabs 02/19/24 04/21/24 Rx mg tablet (Percocet) oxycodone-acetaminophen 5 mg-325 1 tab PO BID PRN pain #60 tabs 03/20/24 04/21/24 Rx mg tablet (Percocet) oxycodone-acetaminophen 5 mg-325 1 tab PO BID PRN pain #60 tabs 04/17/24 04/21/24 Rx mg tablet (Percocet) baclofen 10 mg tablet 10 mg PO Q6H 04/21/24 04/21/24 History Allergies Allergy/AdvReac Type Severity Reaction Status Date / Time No Known Drug Allergies Allergy Verified 11/18/23 10:53 Exam Constitutional Documenting provider has reviewed patient's vital signs: yes Common normals: no apparent distress, oriented x3, healthy appearing, alert and well nourished General appearance: cooperative [facility] Common normals: normocephalic, hearing grossly normal bilaterally and moist oral mucous membranes Head and scalp: normocephalic Eye Common normals: PERRL Pupil: PERRL Neck & C-Spine Common normals: full ROM General: normal visual inspection Chest Common normals: inspection of chest normal Respiratory Common normals: normal respiratory effort, no retractions and no use of accessory muscles Back & Pelvis Lumbar spine/lower back: ROM limited and pain with ROM Sacroiliac joints: SI joints normal Other: RLE 4/5 strength decreased sensation to right L4,5,S1 pattern negative SIJ exam, negative bilateral adrián(patricks), gaenslens, thigh thrust, compression test Extremity Common normals: normal to inspection and full ROM Neuro Common normals: oriented x3, CN's II-XII intact bilaterally, moves all extremities, no focal motor deficits, no sensory deficits noted and deep tendon reflexes 2+ bilaterally Sensorium/orientation: alert Gait (neuro): antalgic Motor exam: strength 5/5 throughout and no movement abnormalities noted Other: strength 4/5 in RLE, 5/5 in LLE Psych Common normals: mental status grossly normal, thought process normal, cooperative, affect normal, speech normal and activity/motor behavior normal Speech: normal speech Thought process: normal thought process Results Additional Findings Additional findings: If on a controlled substance or opioids, I have checked an [place] report on this patient and there are no aberrancies noted in the prescribing history.??If on a controlled substance or opioid a drug screen was completed and reviewed within the last year, and if there has not been a drug screen completed we ordered one today to monitor higher risk, state monitored pain medication use. As part of providing excellent, safe, comprehensive care, the following was completed at our patient's visit: 1. A medication reconciliation and review to ensure accurate knowledge of current/active medications, including asking our patients to inform us about any [id number] medications or herbal remedies/nutritional supplements/alternative remedies. 2. A review to specifically ensure our patients have had annual screening for screening for depression, screening for tobacco use, and screening for unhealthy alcohol use. For concerning screenings had a discussion with the patient, provided patient education, and recommended follow-up with primary care provider when appropriate. If patient noted with a risk of falling, they received education on strength, gait, and balance training to prevent future risk of falling. Assessment and Plan Assessment and Plan (1) Sacroiliitis: (2) Muscle spasm: (3) Chronic prescription opiate use: Assessment and Plan: I feel these medications are improving the patient's quality of life and allow them to tolerate activities of daily living as well as participate in recreational activity.? The patient does not report intolerable side effects. The patient is NOT opioid naive and non-pharmacologic and non-opioid treatment has failed to significantly relieve the patient's pain and improve functionality. The patient has a diagnosis that is related to a somatic or visceral pain etiology. ? ?? I reviewed with the patient the potential risks and side effects with the use of? opioid medications including but not limited to respiratory depression,? sedation, and even . I verified the patient has access to naloxone should? these effects occur. I advised the patient to avoid the use of any other? sedation substances including alcohol, THC, and benzodiazepines while? taking opioid medications due to the risk of compounding side effects and? detrimental outcomes. I reviewed the [employer], pain treatment agreement, urine? drug screen, and opioid start talking forms. The patient was advised to let? their family know they had Naloxone in case they would need to administer? the medication.? The patient was advised that U.S. Food and Drug Administration (FDA) is warning that respiratory depression may occur in patients using gabapentin (Neurontin, Gralise, Horizant) or pregabalin (Lyrica, Lyrica CR) who have respiratory risk factors. These include the use of opioid pain medicines and other drugs that depress the central nervous system, and conditions such as chronic obstructive pulmonary disease (COPD) that reduce lung function. The elderly are also at higher risk.? A drug screen was completed within the last year, and no aberrancies were noted regarding their use of controlled substances. The patient understands they are subject to the terms and conditions of the pain contract that they have signed. ? ?? I have checked an OARRS report on this patient today and there are no aberrancies noted in the prescribing history.? Plan update UDS today for medication monitoring continue gabapentin 600mg TID continue percocet 5-325mg BID PRN moderate to severe pain continue baclofen 10mg 1-2 tabs TID PRN f/u as scheduled
--- OUTSIDE RECORDS SUMMARY | 2024-04-30 08:40 | XMS_ITS | CCD ---
Author Organization [facility] Care Team Providers Care Line Assembly Utility Worker Name Role Phone PHYSICIAN, DEFAULT Unavailable Unavailable [...] DR JULIO Primary Care Unavailable LAKSHMIPATHY ., NARENDERICATH Consulting Ceci vailable LAKSHMIPATHY ., NARENDYUMI Attending Ceci vailable LAKSHMIPATHY ., BLAKE Admitting Ceci vailable DEFRANCE, DR JULIO Primary Care Unavailable HALKER .MYLENE Consulting Unavailable SOSA ., DR ROMERO Ruiz Admitting Unavailable DEFRANCE, DR JULIO Primary Care Unavailable SOSA ., DR ROMERO Ruiz Consulting Unavailable SOSA ., DR ROMERO Ruiz Attending Unavailable LAKSHMIPATHY ., NARENDRANATH Admitting Ceci vailable LAKSHMIPATHY ., NARENDRANATH Attending Ceci vailable HALKER ., MYLENE Consulting [...] Attending Unavailable NON STAFF Primary Care Unavailable Chairty Barkley Admitting Unavailable NON STAFF Primary Care Unavailable Charity Barkley Admitting Unavailable Charity Barkley Attending Unavailable NON STAFF Primary Care Provider UnavailSumanth Ivan MD Primary Care Provider Chloe DELUCA, Rosales Leon Attending Unavailable SOSA, CARL Referring Unavailable DEFRANCE, [...] Unavailable MAYCO NOLEN Referring Unavailable DEFRANCE, SUMANTH Borges Primary Care Unavailable DEFRANCE, SUMANTH T Referring Unavailable DEFRANCE, SUMANTH Borges Primary Care Unavailable CARL SOSA Attending Unavailable DEFRANCE, SUMANTH Borges Referring Unavailable DEFRANCE, SUMANTH Borges Primary Care Unavailable MAYCO NOLEN Attending Unavailable DEFRANCE, SUMANTH T Referring Unavailable DEFRANCE, SUMANTH T Primary Care Unavailable DEFRANCE, SUMANTH T Referring Unavailable DEFRANCE, SUMANTH T Primary Care Unavailable CARL SOSA Attending Unavailable MINH HELLER Attending Unavailable DEFRANCE, SUMANTH T Referring Unavailable [...] at Discharge) take 1 tablet by mk th every [...] e docusate sodium 50 mg / sennosides, long-term 8.6 mg oral tablet (1 source) Start: 12-26-2023 End: 12-27-2023 take 1 tablet by mouth twice daily for diarrhea, then take 1 tablet by mouth once daily for diarrhea 1 tablet, oral, 2 times daily, First dose on Sat12/26/23 at 0900, PACU & Post-op, Start Post-Op Day 1: Hold for diarrhea 0.4 ml enoxaparin sodium 100 mg/ml prefilled syringe (1 source) Low Molecular Weight Heparin Start: 12-26-2023 End: 12-27-2023 40 mg, subcutaneous, Daily, First dose on Sat12/26/23 at 0600, PACU & Post-op, When Creatinine [...] Administer over 2-5 minutes. polyethylene glycol 3350 [id number] mg powder for oral solution (1 source) [...] or abscess without bleeding] Onset: 10-22-2023 Chronic Osteoarthritis (20 sources) Bilateral primary osteoarthritis of hip; Translations: [Unilateral primary osteoarthritis of first carpometacarpal joint, left hand] Onset: 04-16-2018 Chronic Other acquired deformities (3 sources) Spondylolisthesis, lumbar region; Translations: [Spondylolisthesis, lumbar region] Onset: 04-23-2024 Episodic Other aftercare (1 source) Monitoring status; Translations: [Encounter for therapeutic drug level monitoring] 12-20-2023 Episodic Other connective tissue disease (1 [...] states] Onset: 02-12-2024 Episodic Residual codes; unclassified (2 sources) Unspecified symptoms and signs involving general sensations [...] unspecified; Translations: [Low back pain, unspecified] Onset: 02-12-2024 Unclassified (1 source) Post-op Onset: 02-12-2024 Unclassified (1 source) New Patient Onset: 11-14-2023 Past or Other Problems Problem Classification Problem Date Documented Date Episodic/Chronic Genitourinary symptoms and ill-defined conditions (2 sources) Abnormal urine; Translations: [Unspecified abnormal findings in urine] Onset: 12-20-2023 12-20-2023 Episodic Intestinal obstruction without hernia (10 sources) Small bowel obstruction; Translations: [Unspecified intestinal obstruction, unspecified as to partial versus complete obstruction] Onset: 10-04-2023 Resolved: 12-20-2023 10-04-2023 Episodic Mood disorders (10 sources) Mood disorders Onset: 07-29-2023 07-29-2023 Other aftercare (1 source) Encounter for therapeutic drug level monitoring; Translations: [Encounter for therapeutic drug level monitoring] Onset: 12-20-2023 Episodic Other aftercare (1 source) group home (current) use of 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; Translations: [intermission coordinator (current) use of 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] Onset: 12-20-2023 Episodic Other connective tissue disease (3 sources) [...] with radiculopathy, lumbar region] Onset: 07-17-2022 Episodic Syncope (1 source) Syncope and collapse; Translations: [Syncope and collapse] Onset: 12-25-2023 Episodic Unclassified (1 source) LOW BACK PAIN, [...] Test Name Value Interpretation Reference Range Facility Prostate specific Ag [Mass/V ol]on 04-28-2024 PROSTATIC SPEC ANT <0.01 Normal 0.00-4.00 [facility] Comment on above: Result Comment: The method used for this test is Deejay Monesbat DXI chemiluminescent immunoassay. Values obtained by different assay methods cannot be used interchangeably. Performed By: #### 2 857-1 #### [facility] ([id number]) [address], [address] [place] [address] XR SPINE LUMBAR 2 OR 3 VWSon 04-24-2024 XR SPINE LUMBAR 2 OR 3 VWS XR SPINE LUMBAR 2 OR 3 VWS Lumbosacral spine: 04/23/2024 10:15 AM. Reason for study: Spondylolisthesis of lumbar region. Comparison: Lumbosacral spine radiograph from 02/12/[address] lumbar spine from 10/22/2023 Technique: Flexion/extension lateral views of the lumbosacral spine were obtained. Findings: Redemonstration of similar-appearing grade 1 anterolisthesis of L4 and L5 without significant change on flexion/extension. Grade 1 retrolisthesis of L2 on L3 without significant change on flexion/extension. Moderate degenerative disc disease throughout the visualized lumbar spine however most severe at the lumbosacral junction. Vertebral body heights are well-maintained. Facet arthropathy the lower lumbar spine. Impression: Grade 1 anterolisthesis of L4 on L5 and grade 1 retrolisthesis of L2 on L3 without significant change on flexion/extension. Finalized by Juarez Granados MD on 04/24/2024 2:36 PM Normal [facility] MR LUMBAR SPINE WO CONTon MR LUMBAR SPINE WO CONT MR LUMBAR SPINE WO CONT EXAM: MR LUMBAR SPINE WO CONT INDICATION: Status post lumbar laminectomy; Low back pain, non-specific; Leg pain, right; Weakness of right lower extremity; Sensory deficit, right COMPARISON: 11/01/2023 TECHNIQUE: Multiplanar multisequence noncontrast MR sequences through the lumbosacral spine. FINDINGS: Vertebral Bodies and intervertebral discs: Vertebral body heights are normal. Heterogenous signal characteristics likely due to fatty infiltration superimposed on degenerative marrow changes. Modic 2 to the opposing endplates of L5-S1. Desiccation of the intervertebral discs. 8 mm anterolisthesis of L4 on L5 (increased when compared to prior previously measuring approximately 5 mm.. Laminectomy changes from L2 L5. Fluid collection is seen within the laminectomy bed extending from the L2-L3 level caudally to approximately L4-L5. The collection measures approximately 0.9 x 1.6 x 3.8 cm (AP X TR X CC) . Collection closely approximates the dorsal aspect of the thecal sac. Conus: The conus terminates at approximately L1. Spinal Cord and Cauda Equina: The included caudal spinal cord appears normal. Normal appearance of the cauda equina. Spinal levels: T12-L1: No spinal canal or foraminal stenosis. L1-L2: Mild circumferential disc bulge. Bilateral facet arthropathy and ligamentum flavum thickening. Mild spinal canal stenosis. Mild to moderate right and mild left neural foraminal stenosis. L2-L3: Laminectomy changes. Neural foramina are patent. L3-L4: Circumferential disc osteophyte complex. Laminectomy changes. Bilateral facet arthropathy. Moderate bilateral foraminal stenosis. L4-L5: Circumferential disc bulge. 8 mm anterolisthesis L4 and L5. Bulky bilateral facet arthropathy. Laminectomy changes. No spinal canal stenosis. Severe right and moderate to severe left neural foraminal stenosis. L5-S1: Potential disc osteophyte complex. Bilateral facet arthropathy and ligamentum flavum thickening. No significant spinal canal stenosis. Severe left and moderate right neural foraminal stenosis. Intraabdominal structures: The included retroperitoneal and pelvic structures appear normal. IMPRESSION: Laminectomy changes from L2 to L5. Postoperative fluid collections seen within the laminectomy bed extending from approximately the L2-L3 level to approximately L4-L5. Etiology is indeterminate most likely representing postoperative seroma. CSF leak and abscess or less likely. However, Correlate with symptoms. Increased anterolisthesis of L4 and L5 measuring approximately 8 mm, previously 5 mm. Finalized by Matt Matute on 04/22/2024 2:10 PM Normal [facility] XR SPINE LUMB BENDING ONLY 2 -3 [...] Menjivar MD on 02/13/2024 2:22 PM Normal [facility] BASIC METABOLIC PANLon 12-27 Anion gap [Moles/Vol] 8 mmol/L Normal 5-15 [facility] Comment on above: Performed By: #### C BC, BMP, , 32459-5 ####[facility] ([id number])[address] [address] Calcium [Mass/Vol] 9.2 mg/dL Normal 8.5-10.5 [facility] Comment on above: Performed By: #### C BC, BMP, , 46061-9 ####[facility] ([id number])[address], [address] [address] Chloride [Moles/Vol] 103 mmol/L Normal 98-109 [facility] Comment on above: Performed By: #### C BC, BMP, , 30798-2 ####[facility] ([id number])[address], [address] [address] CO2 [Moles/Vol] 28 mmol/L Normal 22-32 [facility] Comment on above: Performed By: #### C BC, BMP, 98919-9, 85831-4 ####[facility] ([id number])[address], [address] [place] [address] Creatinine [Mass/Vol] 0.77 mg/dL Normal 0.60-1.30 [facility] Comment on above: Result Comment: METH OD TRACEABLE TO IDMS STANDARD Performed By: #### C TIP PÉREZ, , 07067-5 ####[facility] ([id number])[address], [address], [place] [address] eGFR (CKD-EPI) NON-RACE DEPENDENT >90 Normal >59 [facility] Comment on above: Result Comment: Reported eGFR is based on the CKD-EPI 2020 equation that does not use a race coefficient. Performed By: #### C TIP PÉREZ, , 77174-0 ####[facility] ([id number])[address] [address], [place] [address] Glucose [Mass/Vol] 110 mg/dL High 65-99 [facility] Comment on above: Performed By: #### TIP CADET, , 59271-4 ####[facility] ([id number])[address] [address] Potassium [Moles/Vol] 4.3 mmol/L Normal 3.5-5.0 [facility] Comment on above: Performed By: #### TIP CADET, , 49221-5 ####[facility] ([id number])[address] [address] Sodium [Moles/Vol] 139 mmol/L Normal 134-146 [facility] Comment on above: Performed By: #### TIP CADET, , 44144-1 ####[facility] ([id number])[address] [address] Urea nitrogen [Mass/Vol] 14 mg/dL Normal 5-27 [facility] Comment on above: Performed By: #### TIP CADET, , ####[facility] ([id number])[address] [facility], [address] [place] [address] Basic Metabolic Panelon 12-06 Anion gap [Moles/Vol] 8 mmol/L 5 - 15 mmol/L [facility] Calcium [Mass/Vol] 9.2 mg/dL 8.5 - 10. 5 mg/dL [facility] Chloride [Moles/Vol] 103 mmol/L 98 - 109 mmol/L [facility] CO2 [Moles/Vol] 28 mmol/L 22 - 32 mmol/L [facility] Creatinine [Mass/Vol] 0.77 mg/dL 0.60 - 1.30 mg/dL [facility] Comment on above: METHOD TRACEABLE TO [facility] STANDARD eGFR (CKD-EPI)non-race dependent - PINF [facility] Comment on above: Reported eGFR is based on the CKD-EPI 2020 equation that does not use a race coefficient. Glucose [Mass/Vol] 110 mg/dL High 65 - 99 mg/dL [facility] Interpretation and review of laboratory results Abnormal [facility] Potassium [Moles/Vol] 4.3 mmol/L 3.5 - 5.0 mmol/L [facility] Sodium [Moles/Vol] 139 mmol/L 134 - 146 mmol/L [facility] Urea nitrogen [Mass/Vol] 14 mg/dL 5 - 27 mg/dL [facility] CBC without diffon Erythrocyte distribution width (RBC) [Ratio] 13.3 % 11.5 - 15.0 % [facility] Hematocrit (Bld) [Volume fraction] 36.3 % Low 39 - 49 % [facility] Hemoglobin (Bld) [Mass/Vol] 12.4 g/dL Low 13.0 - 17.0 g/dL [facility] Interpretation and review of laboratory results Abnormal [facility] MCH (RBC) [Entitic mass] 30.2 pg 27 - 34 pg [facility] MCHC (RBC) [Mass/Vol] 34.2 g/dL 32 - 36 g/dL [facility] MCV (RBC) [Entitic vol] 88 fL 80 - 100 fL [facility] Platelet mean volume (Bld) [Entitic vol] 7.2 fL 7 - 12 fL [facility] Platelets (Bld) [#/Vol] 243 10*3/uL [facility] RBC (Bld) [#/Vol] 4.12 10*6/uL [facility] WBC corrected for nucl RBC Auto (Bld) [#/Vol] 11.6 High [facility] COMPLETE BLOOD COUNTon 12-27 Erythrocyte distribution width (RBC) [Ratio] 13.3 % Normal 11.5-15.0 [facility] Comment on above: Performed By: #### C TIP PÉREZ, , 38392-4 ####[facility] ([id number])[address], [address] [place] [address] Hematocrit (Bld) [Volume fraction] 36.3 % Low 39-49 [facility] Comment on above: Performed By: #### TIP CADET, , 35715-4 ####[facility] ([id number])[address] [address] [place] [address] Hemoglobin (Bld) [Mass/Vol] 12.4 g/dL Low 13.0-17.0 [facility] Comment on above: Performed By: #### TIP CADET, , 11292-6 ####[facility] ([id number])[address], [address] [place] [address] MCH (RBC) [Entitic mass] 30.2 pg Normal 27-34 [facility] Comment on above: Performed By: #### TIP CADET, , 65822-6 ####[facility] ([id number])[address] [address] [place] [address] MCHC (RBC) [Mass/Vol] 34.2 g/dL Normal 32-36 [facility] Comment on above: Performed By: #### TIP CADET, , 15118-0 ####[facility] ([id number])[address], [address] [address] MCV (RBC) [Entitic vol] 88 fL Normal 80-100 [facility] Comment on above: Performed By: #### C ELISA, BMP, , 91533-4 ####[facility] ([id number])[address] [address] Platelet mean volume (Bld) [Entitic vol] 7.2 fL Normal 7-12 [facility] Comment on above: Performed By: #### C BC, BMP, , 30997-0 ####[facility] ([id number])[address] [address] [address] Platelets (Bld) [#/Vol] 243 10*3/uL Normal 150-450 [facility] Comment on above: Performed By: #### C ELISA, BMP, , 50454-3 ####[facility] ([id number])[address] [address] [address] RBC COUNT 4.12 X10E12/L Normal 4.10-5.[address] [facility] Comment on above: Performed By: #### C ELISA, BMP, , 88351-6 ####[facility] ([id number])[address] [address] [address] WBC (Bld) [#/Vol] 11.6 10*3/uL High 4.0-11.0 [facility] Comment on above: Performed By: #### C BC, BMP, , 68692-7 ####[facility] ([id number])[address], [address] [address] ECG 12 leadon 12-27-2023 TRACEMASTERVUE [facility] Glucose Glucometer (BldC) [M ass/Vol]on 12-27-2023 Glucose [Mass/Vol] 98 mg/dL 65 - 99 mg/dL [facility] Glucose [Mass/Vol] 98 mg/dL Normal 65-99 [facility] MAGNESIUMon 12-27-2023 Magnesium [Mass/Vol] 1.9 mg/dL Normal 1.8-2.6 [facility] Comment on above: Performed By: #### TIP CADET, , 72759-1 ####[facility] ([id number])[address], [address], [place] [address] Magnesiumon 12-27-2023 Magnesium [Mass/Vol] 1.9 mg/dL 1.8 - 2.6 mg/dL [facility] No Panel Informationon 12-27 [facility] TROPONIN Ion 12-27-2023 Troponin I.cardiac [Mass/Vol] ng/mL Normal 0.00-0.04 [facility] Comment on above: Performed By: #### TIP CADET, , 87271-1 ####[facility] ([id number])[address], [address] [place] [address] Troponin Ion 12-27-2023 Troponin I.cardiac [Mass/Vol] ng/mL 0.00 - 0.04 ng/mL [facility] Troponin I.cardiac [Mass/Vol ]on 12-27-2023 [facility] BASIC METABOLIC PANLon 12-26 Anion gap [Moles/Vol] 9 mmol/L Normal 5-15 [facility] Comment on above: Performed By: #### Sujey PÉREZ BMP #### [facility] ([id number]) [address], [address] [place] [address] Calcium [Mass/Vol] 9.4 mg/dL Normal 8.5-10.5 [facility] Comment on above: Performed By: #### Sujey PÉREZ BMP #### [facility] ([id number]) [address], [address] [place] [address] Chloride [Moles/Vol] 106 mmol/L Normal 98-109 [facility] Comment on above: Performed By: #### Sujey PÉREZ, BMP #### [facility] ([id number]) [address], [address] [place] [address] CO2 [Moles/Vol] 25 mmol/L Normal 22-32 [facility] Comment on above: Performed By: #### Sujey PÉREZ, BMP #### [facility] ([id number]) [address] [address] [place] [address] Creatinine [Mass/Vol] 0.63 mg/dL Normal 0.60-1.30 [facility] Comment on above: Result Comment: METH OD TRACEABLE TO IDMS STANDARD Performed By: #### Sujey PÉREZ, BMP #### [facility] ([id number]) [address] [address] [place] [address] eGFR (CKD-EPI) NON-RACE DEPENDENT >90 Normal >59 [facility] Comment on above: Result Comment: Reported eGFR is based on the CKD-EPI 2020 equation that does not use a race coefficient. Performed By: #### Sujey PÉREZ, BMP #### [facility] ([id number]) [address], [address] [place] [address] Glucose [Mass/Vol] 140 mg/dL High 65-99 [facility] Comment on above: Performed By: #### Sujey PÉREZ, BMP #### [facility] ([id number]) [address] [address] [place] [address] Potassium [Moles/Vol] 4.6 mmol/L Normal 3.5-5.0 [facility] Comment on above: Performed By: #### Sujey PÉREZ, BMP #### [facility] ([id number]) [address], [address] [place] [address] Sodium [Moles/Vol] 140 mmol/L Normal 134-146 [facility] Comment on above: Performed By: #### C ELISA, BMP #### [facility] ([id number]) [address], [address] [place] [address] Urea nitrogen [Mass/Vol] 17 mg/dL Normal 5-27 [facility] Comment on above: Performed By: #### C ELISA, BMP #### [facility] ([id number]) [address], [address] [place] [address] Basic Metabolic Panelon 12-06 Anion gap [Moles/Vol] 9 mmol/L 5 - 15 mmol/L [facility] Calcium [Mass/Vol] 9.4 mg/dL 8.5 - 10. 5 mg/dL [facility] Chloride [Moles/Vol] 106 mmol/L 98 - 109 mmol/L [facility] CO2 [Moles/Vol] 25 mmol/L 22 - 32 mmol/L [facility] Creatinine [Mass/Vol] 0.63 mg/dL 0.60 - 1.30 mg/dL [facility] Comment on above: METHOD TRACEABLE TO IDIN STANDARD eGFR (CKD-EPI)non-race dependent - PINF [facility] Comment on above: Reported eGFR is based on the CKD-EPI 2020 equation that does not use a race coefficient. Glucose [Mass/Vol] 140 mg/dL High 65 - 99 mg/dL [facility] Interpretation and review of laboratory results Abnormal [facility] Potassium [Moles/Vol] 4.6 mmol/L 3.5 - 5.0 mmol/L [facility] Sodium [Moles/Vol] 140 mmol/L 134 - 146 mmol/L [facility] Urea nitrogen [Mass/Vol] 17 mg/dL 5 - 27 mg/dL [facility] CBC without diffon Erythrocyte distribution width (RBC) [Ratio] 13.5 % 11.5 - 15.0 % [facility] Hematocrit (Bld) [Volume fraction] 37.5 % Low 39 - 49 % [facility] Hemoglobin (Bld) [Mass/Vol] 12.7 g/dL Low 13.0 - 17.0 g/dL [facility] Interpretation and review of laboratory results Abnormal [facility] MCH (RBC) [Entitic mass] 30.0 pg 27 - 34 pg [facility] MCHC (RBC) [Mass/Vol] 33.9 g/dL 32 - 36 g/dL [facility] MCV (RBC) [Entitic vol] 89 fL 80 - 100 fL [facility] Platelet mean volume (Bld) [Entitic vol] 7.2 fL 7 - 12 fL [facility] Platelets (Bld) [#/Vol] 264 10*3/uL [facility] RBC (Bld) [#/Vol] 4.23 10*6/uL [facility] WBC corrected for nucl RBC Auto (Bld) [#/Vol] 12.6 High [facility] COMPLETE BLOOD COUNTon 12-26 Erythrocyte distribution width (RBC) [Ratio] 13.5 % Normal 11.5-15.0 [facility] Comment on above: Performed By: #### C ELISA, BMP #### [facility] ([id number]) [address], [address] [place] [address] Hematocrit (Bld) [Volume fraction] 37.5 % Low 39-49 [facility] Comment on above: Performed By: #### C ELISA, BMP #### [facility] ([id number]) [address], [address] [place] [address] Hemoglobin (Bld) [Mass/Vol] 12.7 g/dL Low 13.0-17.0 [facility] Comment on above: Performed By: #### C ELISA, BMP #### [facility] ([id number]) [address], [address] [place] [address] MCH (RBC) [Entitic mass] 30.0 pg Normal 27-34 [facility] Comment on above: Performed By: #### C ELISA, BMP #### [facility] ([id number]) [address], [address] [place] [address] MCHC (RBC) [Mass/Vol] 33.9 g/dL Normal 32-36 [facility] Comment on above: Performed By: #### Sujey PÉREZ, BMP #### [facility] ([id number]) [address], [address] [place] [address] MCV (RBC) [Entitic vol] 89 fL Normal 80-100 [facility] Comment on above: Performed By: #### Sujey PÉREZ, BMP #### [facility] ([id number]) [address], [address] [place] [address] Platelet mean volume (Bld) [Entitic vol] 7.2 fL Normal 7-12 [facility] Comment on above: Performed By: #### Sujey PÉREZ, BMP #### [facility] ([id number]) [address] [address] [place] [address] Platelets (Bld) [#/Vol] 264 10*3/uL Normal 150-450 [facility] Comment on above: Performed By: #### Sujey PÉREZ, BMP #### [facility] ([id number]) [address], [address] [place] [address] RBC COUNT 4.23 X10E12/L Normal 4.10-5.[address] [facility] Comment on above: Performed By: #### Sujey PÉREZ, BMP #### [facility] ([id number]) [address], [address] [place] [address] WBC (Bld) [#/Vol] 12.6 10*3/uL High 4.0-11.0 [facility] Comment on above: Performed By: #### Sujey PÉREZ, BMP #### [facility] ([id number]) [address], [address] [place] [address] ABO Rh Repeaton 12-25-2023 ABO AB [facility] Rh Nom (Bld) Positive [facility] [place] FLUORO GUIDANCE SPINAL PU NCTURE [...] Miguel Avelar on 12/25/2023 4:51 PM Normal [facility] RF Guidance for injection of Spine [...] José Miguel Avelar on 12/25/2023 4:51 PM [facility] Radiology Study observation (narrative) [facility] RF Guidance for injection of Spine facet jointOrdered By: José Miguel Avelar on 12-25-2023 [facility] Work Phone: Bacteria identified Cx Nom ( U)on 12-21-2023 Service comment (Unsp spec) [Interp] <10,000 ORGANISMS/ML NORMAL URO GENITAL CORINA [facility] ABO Rh Repeaton 12-20-2023 ABO AB [facility] Rh Nom (Bld) Positive [facility] APTTon 12-20-2023 aPTT Coag (PPP) [Time] 31 s [facility] BASIC METABOLIC PANLon 12-20 Anion gap [Moles/Vol] 13 mmol/L Normal 5-15 [facility] Comment on above: Performed By: #### C BCA, PINR, 59704-8, BMP #### [facility] ([id number]) [address], [address] [place] [address] Calcium [Mass/Vol] 10.1 mg/dL Normal 8.5-10.5 [facility] Comment on above: Performed By: #### C BCA, PINR, 57359-0, BMP #### [facility] ([id number]) [address], [address] [place] [address] Chloride [Moles/Vol] 103 mmol/L Normal 98-109 [facility] Comment on above: Performed By: #### C BCA, PINR, 93083-9, BMP #### [facility] ([id number]) [address], [address] [place] [address] CO2 [Moles/Vol] 25 mmol/L Normal 22-32 [facility] Comment on above: Performed By: #### Sujey BCA, PINR, 00465-1, BMP #### [facility] ([id number]) [address], [address] [place] [address] Creatinine [Mass/Vol] 0.76 mg/dL Normal 0.60-1.30 [facility] Comment on above: Result Comment: METH OD TRACEABLE TO IDMS STANDARD Performed By: #### C BCA, PINR, 06896-6, BMP #### [facility] ([id number]) [address], [address] [place] [address] eGFR (CKD-EPI) NON-RACE DEPENDENT >90 Normal >59 [facility] Comment on above: Result Comment: Reported eGFR is based on the CKD-EPI 2020 equation that does not use a race coefficient. Performed By: #### C BUCKY LOWRY, 82246-8, BMP #### [facility] ([id number]) [address], [address] [place] [address] Glucose [Mass/Vol] 85 mg/dL Normal 65-99 [facility] Comment on above: Performed By: #### C BUCKY LOWRY, 03372-8, BMP #### [facility] ([id number]) [address], [address] [place] [address] Potassium [Moles/Vol] 5.0 mmol/L Normal 3.5-5.0 [facility] Comment on above: Result Comment: SPEC IMEN HEMOLYZED, RESULTS INCREASED MODERATELY HEMOLYZED Performed By: #### C BUCKY LOWRY, 14734-4, BMP #### [facility] ([id number]) [address] [place] [address] Sodium [Moles/Vol] 141 mmol/L Normal 134-146 [facility] Comment on above: Performed By: #### C BUCKY LOWRY, 57654-6, BMP #### [facility] ([id number]) [address], [address] [place] [address] Urea nitrogen [Mass/Vol] 20 mg/dL Normal 5-27 [facility] Comment on above: Performed By: #### C MEG LOWRYR, 70519-3, BMP #### [facility] ([id number]) [address], [address] [place] [address] Basic Metabolic Panelon 12-05 Anion gap [Moles/Vol] 13 mmol/L 5 - 15 mmol/L [facility] Calcium [Mass/Vol] 10.1 mg/dL 8.5 - 10. 5 mg/dL [facility] Chloride [Moles/Vol] 103 mmol/L 98 - 109 mmol/L [facility] CO2 [Moles/Vol] 25 mmol/L 22 - 32 mmol/L [facility] Creatinine [Mass/Vol] 0.76 mg/dL 0.60 - 1.30 mg/dL [facility] Comment on above: METHOD TRACEABLE TO IDIN STANDARD eGFR (CKD-EPI)non-race dependent - PINF [facility] Comment on above: Reported eGFR is based on the CKD-EPI 2020 equation that does not use a race coefficient. Glucose [Mass/Vol] 85 mg/dL 65 - 99 mg/dL [facility] Potassium [Moles/Vol] 5.0 mmol/L 3.5 - 5.0 mmol/L [facility] Comment on above: SPECIMEN HEMOLYZED, RESULTS INCREASED MODERATELY HEMOLYZED Sodium [Moles/Vol] 141 mmol/L 134 - 146 mmol/L [facility] Urea nitrogen [Mass/Vol] 20 mg/dL 5 - 27 mg/dL [facility] CBC AND AUTO DIFFon 12-20-19 ABSOLUTE BASOPHIL 0.1 X10E9/L Normal 0.0-0.2 [facility] Comment on above: Performed By: #### C BUCKY LOWRY, 76850-9, BMP #### [facility] ([id number]) [address], [address] [place] [address] ABSOLUTE NEUTROPHIL 4.4 X10E9/L Normal 1.5-6.6 [facility] Comment on above: Performed By: #### BUCKY Rm BCA, 30004-0, BMP #### [facility] ([id number]) [address], [address] [place] [address] Basophils/100 WBC (Bld) 0.9 % Normal [facility] Comment on above: Performed By: #### MEG Rm BCAR, 95928-9, BMP #### [facility] ([id number]) [address], [address] [place] [address] Eosinophils (Bld) [#/Vol] 0.2 10*3/uL Normal 0.0-0.4 [facility] Comment on above: Performed By: #### C ALEN, PINR, 01923-1, BMP #### [facility] ([id number]) [address], [address] [place] [address] Eosinophils/100 WBC (Bld) 2.6 % Normal [facility] Comment on above: Performed By: #### C ALEN, PINR, 91657-6, BMP #### [facility] ([id number]) [address], [address] [place] [address] Erythrocyte distribution width (RBC) [Ratio] 13.6 % Normal 11.5-15.0 [facility] Comment on above: Performed By: #### C ALEN, PINR, 58888-3, BMP #### [facility] ([id number]) [address] [place] [address] Hematocrit (Bld) [Volume fraction] 45.1 % Normal 39-49 [facility] Comment on above: Performed By: #### C ALEN, PINR, 07315-8, BMP #### [facility] ([id number]) [address], [facility] [address] [place] [address] Hemoglobin (Bld) [Mass/Vol] 15.5 g/dL Normal 13.0-17.0 [facility] Comment on above: Performed By: #### C ALEN, PINR, 30705-6, BMP #### [facility] ([id number]) [address], [address] [address] Lymphocytes (Bld) [#/Vol] 1.5 10*3/uL Normal 1.0-3.5 [facility] Comment on above: Performed By: #### C ALEN, PINR, 68447-9, BMP #### [facility] ([id number]) [address], [address] [place] [address] Lymphocytes/100 WBC (Bld) 21.7 % Normal [facility] Comment on above: Performed By: #### C ALEN PINR, 29853-9, BMP #### [facility] ([id number]) [address], [address] [place] [address] MCH (RBC) [Entitic mass] 30.2 pg Normal 27-34 [facility] Comment on above: Performed By: #### C ALEN, PINR, 83251-0, BMP #### [facility] ([id number]) [address], [address] [place] [address] MCHC (RBC) [Mass/Vol] 34.4 g/dL Normal 32-36 [facility] Comment on above: Performed By: #### C ALEN PINR, 87112-0, BMP #### [facility] ([id number]) [address] [place] [address] MCV (RBC) [Entitic vol] 88 fL Normal 80-100 [facility] Comment on above: Performed By: #### C ALEN, PINR, 00191-4, BMP #### [facility] ([id number]) [address], [address] [place] [address] Monocytes (Bld) [#/Vol] 1.0 10*3/uL High 0-0.9 [facility] Comment on above: Performed By: #### C ALEN PINR, 06793-8, BMP #### [facility] ([id number]) [address], [address] [place] [address] Monocytes/100 WBC (Bld) 13.6 % Normal [facility] Comment on above: Performed By: #### C ALEN, PINR, 15222-8, BMP #### [facility] ([id number]) [address] [place] [address] Neutrophils/100 WBC (Bld) 61.2 % Normal [facility] Comment on above: Performed By: #### Sujey LOWRY, PINR, 62627-1, BMP #### [facility] ([id number]) [address], [facility] [address] [place] [address] Platelet mean volume (Bld) [Entitic vol] 7.8 fL Normal 7-12 [facility] Comment on above: Performed By: #### Sujey LOWRY, PINR, 25548-1, BMP #### [facility] ([id number]) [address], [address] [address] Platelets (Bld) [#/Vol] 269 10*3/uL Normal 150-450 [facility] Comment on above: Performed By: #### Sujey LOWRY, PINR, 56541-7, BMP #### [facility] ([id number]) [address], [address] [address] RBC COUNT 5.12 X10E12/L Normal 4.10-5.[address] [facility] Comment on above: Performed By: #### Sujey LOWRY, PINR, 64646-5, BMP #### [facility] ([id number]) [address], [address] [address] WBC (Bld) [#/Vol] 7.1 10*3/uL Normal 4.0-11.0 [facility] Comment on above: Performed By: #### Sujey LOWRY, PINR, 83876-6, BMP #### [facility] ([id number]) [address], [address] [address] CBC auto differentialon 12-05 Basophils (Bld) [#/Vol] 0.1 10*3/uL [facility] Basophils/100 WBC (Bld) 0.9 % [facility] Eosinophils (Bld) [#/Vol] 0.2 10*3/uL [facility] Eosinophils/100 WBC (Bld) 2.6 % [facility] Erythrocyte distribution width (RBC) [Ratio] 13.6 % 11.5 - 15.0 % [facility] Hematocrit (Bld) [Volume fraction] 45.1 % 39 - 49 % [facility] Hemoglobin (Bld) [Mass/Vol] 15.5 g/dL 13.0 - 17.0 g/dL [facility] Interpretation and review of laboratory results Abnormal [facility] Lymphocytes (Bld) [#/Vol] 1.5 10*3/uL [facility] Lymphocytes/100 WBC (Bld) 21.7 % [facility] MCH (RBC) [Entitic mass] 30.2 pg 27 - 34 pg [facility] MCHC (RBC) [Mass/Vol] 34.4 g/dL 32 - 36 g/dL [facility] MCV (RBC) [Entitic vol] 88 fL 80 - 100 fL [facility] Monocytes (Bld) [#/Vol] 1.0 10*3/uL High [facility] Monocytes/100 WBC (Bld) 13.6 % [facility] Neutrophils (Bld) [#/Vol] 4.4 10*3/uL [facility] Neutrophils/100 WBC (Bld) 61.2 % [facility] Platelet mean volume (Bld) [Entitic vol] 7.8 fL 7 - 12 fL [facility] Platelets (Bld) [#/Vol] 269 10*3/uL [facility] RBC (Bld) [#/Vol] 5.12 10*6/uL [facility] WBC corrected for nucl RBC Auto (Bld) [#/Vol] 7.1 [facility] No Panel Informationon 12-20 [facility] PROTIME AND INRon 12-20-2023 INR Coag (PPP) [Relative time] 1.0 {INR} Normal 0.8-1.1 [facility] Comment on above: Performed By: #### C ALEN, PINR, 89337-2, BMP #### [facility] ([id number]) [address], [address] [place] [address] PT Coag (PPP) [Time] 11.3 s Normal 9.8-13.2 [facility] Comment on above: Performed By: #### C BCA, PINR, 82726-4, BMP #### [facility] ([id number]) [address], [address] [place] [address] Protime & INRon 12-20-2023 INR Coag (PPP) [Relative time] 1.0 {INR} [facility] PT Coag (PPP) [Time] 11.3 s [facility] Type and screenon 12-20-2023 ABO AB [facility] Rh Nom (Bld) Positive [facility] URINALYSISon 12-20-2023 Bilirubin Ql (U) Negative Normal NEG [facility] BLOOD/HGB Negative Normal NEG [facility] Color (U) YELLOW Normal YELLOW [facility] Glucose Ql (U) Negative Normal NEG [facility] Ketones Ql (U) Negative Normal NEG [facility] Leukocyte esterase Test strip Ql (U) Negative Normal NEG [facility] MUCOUS PRESENT Abnormal NONE [facility] Nitrite Ql (U) Negative Normal NEG [facility] pH (U) 6.0 [pH] Normal 5.0-8.5 [facility] Protein Ql (U) Trace Abnormal NEG [facility] R.B.CELLS 2 /hpf Normal 0-5 [facility] Specific gravity (U) [Rel density] 1.026 Normal 1.003-1.035 [facility] TURBIDITY CLEAR Normal CLEAR [facility] Urobilinogen (U) [Mass/Vol] mg/dL Normal <1.1 [facility] W.B.CELLS 2 /hpf Normal 0-5 [facility] URINE CULTUREon 12-20-2023 Bacteria identified Cx Nom (U) CULTURE RESULTS <10,000 ORGANISMS/ML NORMAL URO GENITAL CORINA Normal [facility] Comment on above: Performed By: #### 6 30-4 #### [facility] ([id number]) [address], [address] [place] [address] Urinalysison 12-20-2023 Bilirubin Ql (U) Negative Negative^Ne ga tive [facility] Color (U) YELLOW YELLOW^YELLOW [facility] Glucose (U) [Mass/Vol] Negative Negative^Nega tive mg/dL [facility] Hemoglobin Auto test strip Ql (U) Negative Negative^Nega tive [facility] Interpretation and review of laboratory results Abnormal [facility] Ketones (U) [Mass/Vol] Negative Negative^Nega tive mg/dL [facility] Leukocyte esterase Auto test strip Ql (U) Negative Negative^Nega tive [facility] Mucus Ql (Urine sed) PRESENT Abnormal NONE^NONE [facility] Nitrite Auto test strip Ql (U) Negative Negative^Nega tive [facility] pH (U) 6.0 [pH] 5.0 - 8.5 [facility] Protein (U) [Mass/Vol] Trace Abnormal Negative^Nega tive mg/dL [facility] RBC Auto (Urine sed) [#/Area] 2 [facility] Specific gravity Refractometry automated (U) [Rel density] 1.026 1.003 - 1.035 [facility] Turbidity Ql (U) CLEAR CLEAR^CLEAR [facility] Urobilinogen Qn (U) NINF [facility] WBC Auto (Urine sed) [#/Area] 2 [facility] aPTT Coag (PPP) [Time]on aPTT Coag (Bld) [Time] 31 s Normal 26-37 [facility] Comment on above: Performed By: #### C BCA, PINR, 67524-2, BMP #### [facility] ([id number]) [address], [address] [place] [address] XR SPINE LUMB BENDING ONLY 2 -3 [...] acute osseous deformity evident radiographically. Finalized by Minh Morrell MD on 11/16/2023 8:57 PM Normal [facility] MR LUMBAR SPINE WO CONTon MR [...] Shaggy Ortega MD on 11/01/2023 10:24 AM [facility] XR shoulder RT min 2V*on XR shoulder RT min 2V* [facility] Main [place] [address] [place] [address] XRay Report Signed Patient: Regan Green MR#: [id number] 65 : 1950 Acct:[id number] Age/Sex: 73 / M ADM Date: 06/24/23 Loc: [facility] Room: Type: [facility] Attending Dr: Charity Barkley MD Copies to: [...] Artie Goldsmith M.D.06/24/2023 12:37 PM Dictation Location: [place] [address] Transcribed By: [facility] 06/24/23 1237 Dictated By: Artie Goldsmith DO 06/24/23 1236 Signed By: 06/24/23 1237 [facility] XR hand LT min 3V*on 023 XR hand LT min 3V* [facility] Main [place] [address] [place] [address] XRay Report Signed Patient: Regan Green MR#: [id number] 65 : 1950 Acct:[id number] Age/Sex: 73 / M ADM Date: 05/21/23 Loc: [facility] Room: Type: [facility] Attending Dr: Charity Barkley MD Copies to: [...] Vigil Jr., DLeonidesOLeonides05/21/2023 1:53 PM Dictation Location: [place] [address] Transcribed By: [facility] 05/21/23 1353 Dictated By: Regan Vigil Jr, DO 05/21/23 1352 Signed By: 05/21/23 1353 Normal [facility] Covid-19 PCR (CVDTBH)on SARS-CoV-2 (COVID-19) RNA YASMIN+probe Ql (Unsp spec) Not detected Normal NOT DETECTED [facility] Comment on above: Result Comment: This test is not yet approved or cleared by the [place] FDA. When there are no FDA-approved or cleared tests available, and other criteria are met, FDA can make tests available under an emergency access mechanism called an Emergency Use Authorization (EUA). The EUA for this test is supported by the [place] of Health and Human Service's (HHS's) declaration [...] consistent with SARS-CoV-2. Performed By: #### C [facility] #### [facility] [address] [place] [address] Dr. Keely Fitzgerald MRI Shoulder w/o Lefton [...] by Boogie Modi on 02/23/2022 1229 Normal [facility] Specialist CNPNon 04-28-2021 CNPN Telephone (UROLMN) LOANREGAN ([id number]) 1950 M Date Time Provider Department 04/28/21 [...] Status:Closed by BLAIRE BUENO on 04/28/21 Normal [facility] PELVIS 1 OR 2 [facility] 04-16-20 18 PELVIS 1 OR 2 [facility] [address] [place] [address] ========Patient Name: REGAN GREEN : 2Sex: MAge: Race: WhiteMRN: [id number]. Location: 84Patient Status: OVisit #: [id number] Date: 04/16/2018 9:20:00 AMCompleted Date: 04/16/2018 09:18 AMRequesting Provider: BILLY KILLIAN Attending Provider: BILLY KILLIAN Report Copy To: Signs & Symptoms: M46.1 Sacroiliitis, not elsewhere classified S68Tbaferx: AthenaComments: , , , Ordering Provider - BILLY KILLIAN MD , Exam: PELVIS 1 OR 2 VWSAccession #: [id number] PELVIS 1 OR 2 VWS 04/16/2018 9:18 [...] fracture Electronically signed by:Lea Le. Transcribed by: Lilia, User Resident: Electronically Signed by: LEA LE @ 04/16/2018 10:35 AM Normal [facility] Comment on above: Order Comment: , , = ========= , Ordering Provider - BILLY KILLIAN MD , Vital Signs Date Time Vital Sign Value Performing Clinician Facility 12-27-2023 11:46-0500 Body temperature 98.29 [degF] Mayco Nolen MD Work Phone: [facility] 12-27-2023 11:46-0500 Diastolic blood pressure 77 mm[Hg] Mayco Nolen MD Work Phone: [facility] 12-27-2023 11:46-0500 Heart rate 84 /min Mayco Nolen MD Work Phone: [facility] 12-27-2023 11:46-0500 Respiratory rate 14 /min Mayco Nolen MD Work Phone: [facility] 12-27-2023 11:46-0500 Systolic blood pressure 127 mm[Hg] Mayco Nolen MD Work Phone: [facility] 12-27-2023 04:23-0500 SaO2% (BldA) [Mass fraction] 94 % Mayco Nolen MD Work Phone: [facility] 12-25-2023 22:54-0500 Body mass index (BMI) [Ratio] 28.76 kg/m2 Mayco Nolen MD Work Phone: [facility] 12-25-2023 22:54-0500 Body weight 96.2 kg Mayco Nolen MD Work Phone: [facility] 12-25-2023 13:27-0500 Body height 182.9 cm Mayco Nolen MD Work Phone: [facility] 12-20-2023 14:20-0500 Body height 182.9 cm [facility] 12-20-2023 14:20-0500 Body mass index (BMI) [Ratio] 29.39 kg/m2 [facility] 12-20-2023 14:20-0500 Body temperature 97.7 [degF] [facility] 12-20-2023 14:20-0500 Body weight 98.3 kg [facility] 12-20-2023 14:20-0500 Diastolic blood pressure 84 mm[Hg] [facility] [address] [place] [address] 12-20-2023 14:20-0500 Heart rate 77 /min [facility] 12-20-2023 14:20-0500 Respiratory rate 18 /min [facility] 12-20-2023 14:20-0500 SaO2% (BldA) [Mass fraction] 97 % [facility] 12-20-2023 14:20-0500 Systolic blood pressure 132 mm[Hg] [facility] [address] [place] [address] 11-14-2023 09:59-0500 Body height 180.3 cm Carlajith Sosa [employer] Work Phone: [facility] 11-14-2023 09:59-0500 Body mass index (BMI) [Ratio] 29.57 kg/m2 Carl Sosa [employer] Work Phone: [facility] 11-14-2023 09:59-0500 Body weight 96.16 kg Carl Sosa [employer] Work Phone: [facility] 11-14-2023 09:59-0500 Diastolic blood pressure 86 mm[Hg] Carl Sosa [employer] Work Phone: [facility] 11-14-2023 09:59-0500 Heart rate 81 /min Carl Sosa [employer] Work Phone: [facility] 11-14-2023 09:59-0500 Systolic blood pressure 135 mm[Hg] Carl Sosa [employer] Work Phone: [facility] 05-21-2023 10:00-0400 Body height 182.88 cm Charity Barkley Other [employer] Other 05-21-2023 10:00-0400 Body mass index (BMI) [Ratio] 30.51 kg/m2 Charity Barkley Other [employer] Other 05-21-2023 10:00-0400 Body weight 102.06 kg Charity Barkley Other [employer] Other Encounters Encounter Date Encounter Type Care Provider Facility Start: 04-28-2024 End: 04-28-2024 ambulatory [facility] Start: 04-27-2024 ambulatory [facility] Start: 04-23-2024 End: 04-23-[address] [facility] Start: 04-23-2024 End: 04-23-[address] [facility] Start: 04-21-2024 End: 04-21-2024 ambulatory [facility] Start: 04-06-2024 ambulatory [facility] Start: 03-04-2024 End: 04-04-2024 ambulatory [facility] Start: 02-14-2024 End: 03-04-2024 ambulatory [facility] Start: 02-12-2024 End: 02-12-[address] [facility] Start: 01-29-2024 End: 01-29-2024 ambulatory [facility] Work Phone: Start: 01-29-2024 End: 01-29-2024 Patient encounter procedure [facility] Work Phone: Start: 12-28-2023 End: 12-28-2023 ambulatory MARIA M VÁSQUEZ [facility] Start: 12-25-2023 End: 12-28-[address] [facility] Start: 12-25-2023 End: 12-27-[address] [facility] Start: 12-25-2023 End: 12-27-2023 Subsequent hospital visit by physician Mayco Nolen MD Work Phone: [facility] Comment on above: Radiculopathy, lumba r region; Neurogenic claudication Start: 12-24-2023 Telephone encounter [facility] Comment on above: surgery Start: 12-20-2023 [facility] Start: 12-20-2023 End: 12-20-2023 Patient encounter procedure [facility] Provider 9 [facility] Comment on above: Radiculopathy, lumba r region; Neurogenic claudication; Monitoring for anticoagulant use; Abnormal urine findings Start: 12-20-2023 End: 12-20-[address] [facility] Start: 12-18-2023 Documentation procedure Jasmin Noriega [employer] Work Phone: [facility] Start: 12-10-2023 Telephone encounter Myrtle Hatch LPN [facility] Comment on above: surgery Start: 12-05-2023 End: 01-03-2024 ambulatory [facility] Start: 11-27-2023 Telephone encounter [facility] Start: 11-22-2023 End: 12-05-2023 ambulatory [facility] Start: 11-18-2023 End: 11-19-2023 ambulatory Rosales Corona MD Facility: [facility] Start: 11-14-2023 End: 11-14-[address] [facility] Start: 11-14-2023 End: 11-14-2023 Office outpatient new 45 minutes Carl Greenwich [employer] Work Phone: [facility] Comment on above: Neurogenic claudicat ion (Primary Dx); Lumbar radiculopathy, chronic Start: 11-14-2023 End: 11-14-2023 ambulatory [facility] Start: 11-05-2023 Telephone encounter Dolores Rm MA [facility] Comment on above: Er Follow-up Lumbar radiculopathy , chronic (Primary Dx) Start: 11-01-2023 End: 11-01-2023 ambulatory [facility] Start: 10-31-2023 End: 10-31-2023 Emergency department patient visit [facility] Start: 10-30-2023 End: 10-30-2023 ambulatory Charity Barkley Other [employer] Other Start: 10-30-2023 Office outpatient vi sit 15 minutes Charity Calvey [facility] Start: 10-22-2023 End: 10-23-2023 Emergency department patient visit MAEVE Randal MARCELAALEJANDRO [facility] Start: 08-20-2023 End: 08-20-2023 ambulatory Charity Calvarnol Other [employer] Other Start: 08-20-2023 Office outpatient vi sit 15 minutes Charity Calvey [facility] Start: 07-23-2023 End: 07-23-2023 ambulatory Charity Calvey Other [employer] Other Start: 07-23-2023 Office outpatient vi sit 15 minutes Charity Calvey [facility] Start: 06-24-2023 Office outpatient vi sit 15 minutes Charity Calvey [facility] Start: 06-24-2023 End: 06-24-2023 ambulatory NON STAFF Facility:[facility] Start: 06-24-2023 End: 06-24-2023 ambulatory NON STAFF [facility] Work Phone: Start: 06-24-2023 End: 06-24-2023 Patient encounter procedure MD Charity Barkley Work Phone: [facility] Start: 05-21-2023 Office outpatient ne w 30 minutes Charity Filippo [facility] Start: 05-21-2023 End: 05-21-2023 ambulatory Charity Gudino Filippo [facility] Work Phone: Start: 05-21-2023 End: 05-21-2023 Patient encounter procedure MD Charity Barkely Work Phone: [facility] Start: 03-19-2023 End: 03-20-2023 ambulatory NARENDRANATH LAKSHMIPATHY . Facility:[facility] Start: 02-21-2023 End: 02-22-2023 ambulatory NARENDRANATH LAKSHMIPATHY . Facility:[facility] Start: 12-18-2022 End: 12-19-[address] ROMERO SOSA . Facility:[facility] Start: 11-22-2022 End: 11-23-[address] ROMERO SOSA . Facility:[facility] Start: 10-11-2022 Encounter for preprocedural laboratory examination DR ROMERO SOSA . [facility] Start: 10-09-2022 End: 10-09-[address] ROMERO SOSA . Facility:[facility] Start: 10-05-2022 End: 10-06-[address] ROMERO SOSA . Facility:[facility] Start: 10-05-2022 End: 10-06-2022 Encounter for preprocedural laboratory examination DR ROMERO SOSA . Facility:[facility] Start: 10-01-2022 Encounter for preprocedural cardiovascular examination ISELA SALMERON . [facility] Start: 09-26-2022 End: 09-27-2022 ambulatory ISELA SALMERON . Facility:[facility] Start: 09-26-2022 End: 09-27-2022 Encounter for preprocedural cardiovascular examination ISELA SALMERON . Facility:[facility] Start: 09-20-2022 End: 09-21-[address] ROMERO SOSA . Facility:[facility] Start: 08-02-2022 End: 08-03-[address] ROMERO SOSA . Facility:[facility] Start: 07-17-2022 End: 09-13-[address] ROMERO SOSA . Facility: Start: 06-14-2022 End: 06-15-[address] ROMERO SOSA . Facility: Start: 04-16-2018 End: 04-17-2018 Ambulatory BILLY EATONHEIM Facility:[facility] Start: 01-28-2018 End: 01-29-2018 Ambulatory DEFAULT PHYSICIAN Facility:[facility] Procedures Date Procedure Procedure Detail Performing Clinician Start: 04-23-2024 Follow-up visit Follow-up MAYCO NOLEN Start: 12-27-2023 Ecg routine ecg w/le ast 12 lds trcg only w/o i&r Christina Varma VP [employer] Work Phone: Start: 12-27-2023 End: 12-27-2023 Basic metabolic panel calcium total Christina Varma VP [employer] Work Phone: Start: 12-26-2023 Basic metabolic pane l calcium total Christina Varma VP [employer] Work Phone: Start: 12-25-2023 Fluor needle/cath spine/paraspinal dx/ther addon Mayco Nolen MD Work Phone: Start: 12-25-2023 End: 12-25-2023 LAMINECTOMY LUMBAR MULTI LEVEL Mayco Nolen MD Work Phone: Start: 12-25-2023 REPEATED JOSE E Nolen MD Work Phone: Start: 12-20-2023 Antibody screen [facility] Start: 12-20-2023 Basic metabolic pane l calcium total Mayco Nolen MD Work Phone: Start: 12-20-2023 Blood typing serologic abo Mayco Nolen MD Work Phone: Start: 12-20-2023 REPEATED JOSE E Nolen MD Work Phone: Start: 12-20-2023 Urnls dip stick/tabl et rgnt auto w/o microscopy Mayco Nolen MD Work Phone: Start: 12-20-2023 Culture bacterial quanttative colony count urine Mayco Nolen MD Work Phone: Start: 07-29-2023 Adult depression scr eening assessment Dolores Anderson CMA Start: 06-24-2023 Plain X-ray of right shoulder MD Charity Barkley Work Phone: Start: 05-21-2023 Plain X-ray of left hand MD Charity Barkley Work Phone: Plan of Treatment Date Care Activity Detail Author Start: 12-25-2024 Adult BMI Screening Adult BMI Screen ing [facility] Start: 12-25-2024 Tobacco Screening Tobacco Screening [facility] Start: 12-20-2024 Adult BMI Screening Adult BMI Screen ing [facility] Start: 12-20-2024 Tobacco Screening Tobacco Screening [facility] Start: 11-14-2024 Adult BMI Screening Adult BMI Screen ing [facility] Start: 11-14-2024 Tobacco Screening Tobacco Screening [facility] Start: 10-31-2024 Tobacco Screening Tobacco Screening [facility] Start: 10-23-2024 Fall Risk Screening Fall Risk Screen ing [facility] Start: 10-22-2024 Adult BMI Screening Adult BMI Screen ing [facility] Start: 08-11-2024 End: 08-11-2024 Patient encounter procedure 08/11/2024 9:00 AM EDT Office Visit [facility] [address] [place] [address] Sumanth Hill MD [address] [place], [place] [phone] [facility] Start: 07-30-2024 End: 07-30-2024 Patient encounter procedure 07/30/2024 8:30 AM EDT [facility] [address] [place] [address] Sumanth Hill MD [address] [place], [place] [id number] [facility] Start: 07-29-2024 [facility] Start: 07-29-[facility]24 Medicare Annual Well ness Visit Medicare Annual Wellness Visit [facility] Start: 04-21-2024 End: 04-21-2024 Patient encounter procedure 04/21/2024 1:45 PM EDT Office Visit [facility] [address] [place] [address] [address] [facility] [place] [address] Minh Heller MD [address] [place] [address] [facility] Start: 02-13-2024 End: 02-13-2024 Patient encounter procedure 02/13/2024 1:50 PM EDT Office Visit [facility] [address] [place] [address] [phone] Mayco Nolen MD [address] [place] [address] [address] [place] [address] [facility] Start: 12-25-2023 End: 12-25-2023 Admission to same day surgery center 12/25/2023 2:45 PM EST - 12/25/2023 4:45 PM EST Surgery [address] [phone] Mayco Nolen MD [address] [place] [address] [address] [place] [address] LAMINECTOMY LUMBAR MULTI LEVEL / L2-L5 [facility] Comment on above: LAMINECTOMY LUMBAR M ULTI LEVEL / L2-L5 Start: 12-25-2023 End: 12-25-2023 LAMINECTOMY LUMBAR MULTI LEVEL [facility] Start: 12-25-2023 Subsequent hospital visit by physician 12/25/2023 2:45 PM EST Hospital Encounter [facility] Surgery [address] [place] [phone] Mayco Nolen MD [address] [place] [address] [address] [place] [phone] [facility] Start: 12-06-2023 End: 12-06-2023 Patient encounter procedure 12/06/2023 7:00 AM EST [facility] [address] [place] [phone] [facility] Start: 11-14-2023 End: 11-14-2024 XR Lumbar spine Views AP W right bending and W left bending [facility] Work Phone: Comment on above: Expected: 11/14/2023 , Expires: 11/14/2024 Start: 07-05-2023 COVID-19 Vaccine ( season) COVID-19 Vaccine ( season) [facility] Start: 07-24-2013 Administration of varicella zoster vaccine Zoster (Shingles) Vaccine (1 of 2) [facility] Start: 1971 DTaP,Tdap and Td Vaccines (1 - Tdap) DTaP,Tdap and Td Vaccines (1 - Tdap) [facility] Start: 1970 Adult BMI Follow Up Plan Adult BMI Follow Up Plan [facility] Immunizations Immunization Date Immunization Notes Care Provider Fa cility 08-20-2022 Influenza, High-dose , Quadrivalent [facility] 04-26-2022 influenza, injectabl e, quadrivalent, preservative free [facility] 09-18-2021 influenza, injectabl e, quadrivalent, preservative free [facility] 07-20-2020 Influenza, High-dose , Quadrivalent [facility] 08-11-2019 influenza, high dose seasonal, preservative-free [facility] 08-11-2019 pneumococcal polysaccharide vaccine, 23 valent [facility] 07-31-2018 influenza, injectabl e, quadrivalent, preservative free [facility] 11-20-2017 influenza, seasonal, injectable, preservative free [facility] 11-20-2017 pneumococcal conjuga te vaccine, 13 valent [facility] 08-19-2013 pneumococcal polysaccharide vaccine, 23 valent [facility] 05-29-2013 zoster vaccine, live [facility] 05-29-2013 zoster vaccine, unspecified formulation [facility] 08-18-2012 influenza virus vacc ine, whole virus [facility] 08-13-2012 pneumococcal polysaccharide vaccine, 23 valent [facility] 08-13-2012 zoster vaccine, live [facility] 09-03-2011 influenza virus vacc ine, whole virus [facility] 09-11-2010 influenza virus vacc ine, whole virus [facility] 08-22-2009 influenza virus vacc ine, whole virus [facility] Payers Date Payer Category Payer Self-pay [id number] 2023 Unknown [id number] 2019 Unknown 2017 Medicare [id number] 1959 Medicare [id number] 1959 Unknown [id number] 1959 Unknown [id number] 1952 Unknown [id number] 2..840.1.388736.3.579.2.593 1952 Unknown [id number] 2.840.1.854203.3.579.2.593 1952 Unknown [id number] 2..840.1.909418.3.579.2.593 1952 Unknown [id number] 2.16.840.1.779507.3.579.2.593 1952 Unknown [id number] 2.16.840.1.507185.3.579.2.593 1952 Unknown [id number] 2.16.840.1.002918.3.579.2.593 1952 Unknown [id number] 2.16.840.1.563168.3.579.2.593 1952 Unknown [id number] 2.16.840.1.543318.3.579.2.593 1952 Unknown [id number] 2.16.840.1.460149.3.579.2.593 1952 Unknown [id number] 2.16.840.1.249798.3.579.2.593 1952 Unknown [id number] 2.16.840.1.310086.3.579.2.593 1952 Unknown [id number] 2.16.840.1.967650.3.579.2.196 1952 Unknown [id number] 2.16.840.1.093758.3.579.2.1286 1952 Unknown [id number] 2.16.840.1.723562.3.579.2.128 1952 Unknown [id number] 2.16.840.1.303750.3.579.2.128 1952 Unknown [id number] 2.16.840.1.420785.3.579.2.1285 1952 Unknown [id number] 2.16.840.1.295498.3.579.2.128 1952 Unknown [id number] 2.16.840.1.258785.3.579.2.128 1952 Unknown [id number] 2.16.840.1.896597.3.579.2.128 1952 Unknown [id number] 2.16.840.1.438055.3.579.2.1285 1952 Unknown [id number] 2.16.840.1.270926.3.579.2.1285 1952 Unknown [id number] 2.16.840.1.950167.3.579.2.1285 1952 Unknown [id number] 2.16.840.1.941696.3.579.2.1285 1952 Unknown [id number] 2.16.840.1.314023.3.579.2.1285 1952 Unknown [id number] 2.16.840.1.012151.3.579.2.1285 1952 Unknown [id number] 2.16.840.1.111889.3.579.2.1285 1952 Unknown [id number] 2.16.840.1.633556.3.579.2.1285 1952 Unknown [id number] 2.16.840.1.875254.3.579.2.1285 1952 Unknown [id number] 2.16.840.1.737222.3.579.2.1285 1952 Unknown [id number] 2.16.840.1.633980.3.579.2.1285 1952 Unknown [id number] 2.16.840.1.446955.3.579.2.1285 1952 Unknown [id number] 2.16.840.1.222619.3.579.2.1285 1952 Unknown [id number] 2.16.840.1.878877.3.579.2.1285 1952 Unknown [id number] 2.16.840.1.104455.3.579.2.1285 1952 Unknown [id number] 2.16.840.1.893839.3.579.2.1286 1952 Unknown [id number] 2.16.840.1.246943.3.579.2.1286 [address] [facility] [place] [id number] Unknown [id number] 2.16.840.1.724855.3.579.2.531 Unknown [id number] 2.16.840.1.396259.3.579.2.531 Worker's Compensation [id number] Social History Date Type Detail Facility Unknown if ever smoked [facility] Work Phone: Start: 12-01-2019 End: 12-15-2020 Sex Assigned At [facility] Other Start: 1950 Sex Assigned At Male F [facility] Start: 01-17-2023 End: 12-20-2023 Tobacco smoking status GAIS Ex-smoker [facility] History of tobacco use Current smoker [facility] History of tobacco use Cigarette Smoker P [facility] Start: 01-17-2023 End: 12-20-2023 Tobacco use and exposure Smokeless tobacco non-user [facility] Start: 10-31-2023 End: 12-26-2023 Alcohol intake Current drinker of alcohol (finding) [facility] Start: 12-01-2019 End: 12-15-2020 History of Social function [facility] Frequency of Alcohol Consumption 4 or more times a week [facility] Start: 01-17-[address] [facility] Start: 1950 Sex Assigned At Not on file P [facility] Start: 11-07-2018 Tobacco smoking stat us GAIS Never smoked tobacco (finding) [facility] Medical Equipment Procedure Code Equipment Code Equipment Origin al Text Equipment Identifier Dates Patch Dura 1x1in Drmtrx-[place] + Clgn Rgnrt Membr Str[facility] [id number] - [id number] Start: 12-25-2023 Goals Date Patient Goal [...] entrance b in a wheelchair with . [facility] 12-27-2023 Nurse Note Discharge instructions provided to patient. Patient verbalized understanding, and denies any further concerns at this time. IV removed at time of discharged. Patient gathered belongings from room. Patient in no apparent distress. Patient taken to entrance b in a wheelchair with . documented in this encounter [facility] 12-27-2023 Plan of care note Problem: Pain Goal: Patient goal is pain score less than 4, able to rest, and participant in treatment plan as appropriate Description: INTERVENTIONS: 1. Encourage patient or legal computer help desk representative to report early pain and ask [...] per policy 9. Teach patient or legal computer help desk representative interventions for comforting 12/27/2023 1259 by [...] at the bedside 7. Instruct patient/ patient computer help desk representative about use of safety devices 8. Include patient/ patient computer help desk representative in decisions related to safety 12/27/2023 [...] hygiene technique 7. Identify and instruct patient/patient computer help desk representative in use of appropriate isolation precautions for identified infection/symptoms 8. Provide and discuss with patient/patient computer help desk representative on educational MDRO sheet 9. Encourage and monitor nutritional status daily and consult motor driver if indicated 10. Implement neutropenic guidelines as [...] care ongoing. Problem: Knowledge Deficit Goal: Patient/patient computer help desk representative demonstrates understanding of disease process, treatment [...] Score of =/> 25 or indicated by [facility] Assessment Goal: Patient should be free from fall Description: Interventions: 1. [place] to environment 2. Hourly rounds addressing the [...] non-skid footwear 11. Teach patient and patient computer help desk representative to maintain environment for safety and [...] (cane, walker) within reach 19. Request patient computer help desk representative bring adaptive equipment/mobility aids from home or obtain and provide as needed 20. Consult pharmacy regarding effects of med's affecting mobility, cognition, and alternatives 21. Obtain physician order for PT if risk factors associated with mobility are present 22. Obtain physician order for OT as appropriate 23. Utilize diversional activities 24. Educate patient and patient computer help desk representative how to maintain a safe environment during visitation times (notify nurse prior to leaving bedside) 25. Consider appropriateness of medical or non-medical advisor 26. Set up voiding schedule as appropriate [...] progress towards goal: Plan of care ongoing. [facility] 12-27-2023 Miscellaneous Notes Problem: Pain Goal: Patient goal is pain score less than 4, able to rest, and participant in treatment plan as appropriate Description: INTERVENTIONS: 1. Encourage patient or legal computer help desk representative to report early pain and ask [...] per policy 9. Teach patient or legal computer help desk representative interventions for comforting 12/27/2023 1259 by [...] at the bedside 7. Instruct patient/ patient computer help desk representative about use of safety devices 8. Include patient/ patient computer help desk representative in decisions related to safety 12/27/2023 [...] hygiene technique 7. Identify and instruct patient/patient computer help desk representative in use of appropriate isolation precautions for identified infection/symptoms 8. Provide and discuss with patient/patient computer help desk representative on educational MDRO sheet 9. Encourage and monitor nutritional status daily and consult motor driver if indicated 10. Implement neutropenic guidelines as [...] care ongoing. Problem: Knowledge Deficit Goal: Patient/patient computer help desk representative demonstrates understanding of disease process, treatment [...] Score of =/> 25 or indicated by [facility] Assessment Goal: Patient should be free from fall Description: Interventions: 1. [place] to environment 2. Hourly rounds addressing the [...] non-skid footwear 11. Teach patient and patient computer help desk representative to maintain environment for safety and [...] (cane, walker) within reach 19. Request patient computer help desk representative bring adaptive equipment/mobility aids from home or obtain and provide as needed 20. Consult pharmacy regarding effects of med's affecting mobility, cognition, and alternatives 21. Obtain physician order for PT if risk factors associated with mobility are present 22. Obtain physician order for OT as appropriate 23. Utilize diversional activities 24. Educate patient and patient computer help desk representative how to maintain a safe environment during visitation times (notify nurse prior to leaving bedside) 25. Consider appropriateness of medical or non-medical advisor 26. Set up voiding schedule as appropriate [...] Description: INTERVENTIONS: 1. Encourage patient or legal computer help desk representative to report early pain and ask [...] per policy 9. Teach patient or legal computer help desk representative interventions for comforting Outcome: Progressing Note: [...] at the bedside 7. Instruct patient/ patient computer help desk representative about use of safety devices 8. Include patient/ patient computer help desk representative in decisions related to safety Outcome: [...] hygiene technique 7. Identify and instruct patient/patient computer help desk representative in use of appropriate isolation precautions for identified infection/symptoms 8. Provide and discuss with patient/patient computer help desk representative on educational MDRO sheet 9. Encourage and monitor nutritional status daily and consult motor driver if indicated 10. Implement neutropenic guidelines as needed 11. Review exposure to history of communicable disease and recent travel history on admission 12. Encourage annual influenza vaccine 13. Encourage pneumonia vaccine Outcome: Progressing Note: Evaluation of progress towards goal: Patient denies fever. No purulent drainage noted at site. Plan of care ongoing. Problem: Knowledge Deficit Goal: Patient/patient computer help desk representative demonstrates understanding of disease process, treatment [...] Score of =/> 25 or indicated by [facility] Assessment Goal: Patient should be free from fall Description: Interventions: 1. [place]ette to environment 2. Hourly rounds addressing the [...] non-skid footwear 11. Teach patient and patient computer help desk representative to maintain environment for safety and [...] (cane, walker) within reach 19. Request patient computer help desk representative bring adaptive equipment/mobility aids from home or obtain and provide as needed 20. Consult pharmacy regarding effects of med's affecting mobility, cognition, and alternatives 21. Obtain physician order for PT if risk factors associated with mobility are present 22. Obtain physician order for OT as appropriate 23. Utilize diversional activities 24. Educate patient and patient computer help desk representative how to maintain a safe environment during visitation times (notify nurse prior to leaving bedside) 25. Consider appropriateness of medical or non-medical advisor 26. Set up voiding schedule as appropriate [...] Description: INTERVENTIONS: 1. Encourage patient or legal computer help desk representative to report early pain and ask [...] per policy 9. Teach patient or legal computer help desk representative interventions for comforting Outcome: Progressing Note: [...] at the bedside 7. Instruct patient/ patient computer help desk representative about use of safety devices 8. Include patient/ patient computer help desk representative in decisions related to safety Outcome: [...] hygiene technique 7. Identify and instruct patient/patient computer help desk representative in use of appropriate isolation precautions for identified infection/symptoms 8. Provide and discuss with patient/patient computer help desk representative on educational MDRO sheet 9. Encourage and monitor nutritional status daily and consult motor driver if indicated 10. Implement neutropenic guidelines as needed 11. Review exposure to history of communicable disease and recent travel history on admission 12. Encourage annual influenza vaccine 13. Encourage pneumonia vaccine Outcome: Progressing Note: Evaluation of progress towards goal: patient free from s/s of infection Problem: Knowledge Deficit Goal: Patient/patient computer help desk representative demonstrates understanding of disease process, treatment [...] Score of =/> 25 or indicated by [facility] Assessment Goal: Patient should be free from fall Description: Interventions: 1. [place] to environment 2. Hourly rounds addressing the [...] non-skid footwear 11. Teach patient and patient computer help desk representative to maintain environment for safety and [...] (cane, walker) within reach 19. Request patient computer help desk representative bring adaptive equipment/mobility aids from home or obtain and provide as needed 20. Consult pharmacy regarding effects of med's affecting mobility, cognition, and alternatives 21. Obtain physician order for PT if risk factors associated with mobility are present 22. Obtain physician order for OT as appropriate 23. Utilize diversional activities 24. Educate patient and patient computer help desk representative how to maintain a safe environment during visitation times (notify nurse prior to leaving bedside) 25. Consider appropriateness of medical or non-medical advisor 26. Set up voiding schedule as appropriate [...] Description: INTERVENTIONS: 1. Encourage patient or legal computer help desk representative to report early pain and ask [...] per policy 9. Teach patient or legal computer help desk representative interventions for comforting Outcome: Progressing Note: [...] at the bedside 7. Instruct patient/ patient computer help desk representative about use of safety devices 8. Include patient/ patient computer help desk representative in decisions related to safety Outcome: [...] hygiene technique 7. Identify and instruct patient/patient computer help desk representative in use of appropriate isolation precautions for identified infection/symptoms 8. Provide and discuss with patient/patient computer help desk representative on educational MDRO sheet 9. Encourage and monitor nutritional status daily and consult motor driver if indicated 10. Implement neutropenic guidelines as needed 11. Review exposure to history of communicable disease and recent travel history on admission 12. Encourage annual influenza vaccine 13. Encourage pneumonia vaccine Outcome: Progressing Note: Evaluation of progress towards goal: Patient is being monitored for s/sx of infection. Problem: Knowledge Deficit Goal: Patient/patient computer help desk representative demonstrates understanding of disease process, treatment [...] be free from fall Description: Interventions: 1. [place]ette to environment 2. Hourly rounds addressing the [...] non-skid footwear 11. Teach patient and patient computer help desk representative to maintain environment for safety and [...] (cane, walker) within reach 19. Request patient computer help desk representative bring adaptive equipment/mobility aids from home or obtain and provide as needed 20. Consult pharmacy regarding effects of med's affecting mobility, cognition, and alternatives 21. Obtain physician order for PT if risk factors associated with mobility are present 22. Obtain physician order for OT as appropriate 23. Utilize diversional activities 24. Educate patient and patient computer help desk representative how to maintain a safe environment during visitation times (notify nurse prior to leaving bedside) 25. Consider appropriateness of medical or non-medical advisor 26. Set up voiding schedule as appropriate [...] Medical History: Diagnosis Date Cancer of prostate ([facility] 2017 prostatectomy Diverticulitis Diverticulosis Fecal impaction ([facility]) Inflammation of sacroiliac joint ([facility]) Knee pain Low back pain Lumbar disc disorder Neurogenic claudication 12/17/2023 Osteoarthritis SBO (small bowel obstruction) ([facility]) 10/04/2023 Shingles UTI (urinary tract infection) Varicose veins of right lower extremity with pain 02/08/2020 Visual impairment 12/20/2023 Past Surgical History: Procedure Laterality Date ABDOMINAL ADHESION SURGERY COLONOSCOPY COLONOSCOPY N/A 03/25/2023 Performed by Matt Campbell DO at [facility] HERNIA REPAIR Left inguinal HIP SURGERY Left LAMINECTOMY LUMBAR MULTI LEVEL / L2-L5 N/A 12/25/2023 Performed by Mayco Nolen MD at [facility] PROSTATE BIOPSY PROSTATECTOMY REVISION TOTAL KNEE ARTHROPLASTY [...] pass Equipment: RW, gait belt, wound drain Telemetry/Video Tape Duplicator: Yes Oxygen Used: room air Other: fall [...] Patient will perform bed mobility with Modified Bonner Dates: Start: 12/26/23 Expected End: 01/24/24 Description: Goal Description: with proper BUE placement and sequencing Disciplines: PT Problem: Gait Dates: Start: 12/26/23 Disciplines: PT Goal: Patient will perform gait with Modified Bonner Dates: Start: 12/26/23 Expected End: 01/24/24 Description: With__RW__,__150__feet Goal Description: with proper gait pattern and safety awareness Disciplines: PT Problem: Stairs/Curb Dates: Start: 12/26/23 Disciplines: PT Goal: Patient will perform stairs/curb with Modified Bonner Dates: Start: 12/26/23 Expected End: 01/24/24 Description: [...] Goal: Patient will perform transfers with Modified Bonner Dates: Start: 12/26/23 Expected End: 01/24/24 Description: [...] Description: INTERVENTIONS: 1. Encourage patient or legal computer help desk representative to report early pain and ask [...] per policy 9. Teach patient or legal computer help desk representative interventions for comforting Outcome: Progressing Note: [...] hygiene technique 7. Identify and instruct patient/patient computer help desk representative in use of appropriate isolation precautions for identified infection/symptoms 8. Provide and discuss with patient/patient computer help desk representative on educational MDRO sheet 9. Encourage and monitor nutritional status daily and consult motor driver if indicated 10. Implement neutropenic guidelines as [...] Kerrison punches. I then checked with a [place] elevator and confirmed that there was no residual lateral recess or foraminal stenosis. Epidural venous bleeding was controlled with Gelfoam soaked with thrombin. Inspection of the dura did not reveal any rents or stacy CSF leak. The cavity was irrigated with [...] Nolen MD - Primary Assistants: None Staff: Hammer Shop Supervisor Primary: Lily Glasgow RN Hammer Shop Supervisor Relief: Dina Roy RN Scrub Person: Janak [...] Implant Name Type Inv. Item Serial No. Veneer Slicing Machine Operator Lot No. LRB No. Used Action PATCH DURA 1X1IN DRMTRX-ONLAY + CLGN RGNRT MEMBR STRL RPL [id number] - [id number] Graft PATCH DURA 1X1IN DRMTRX-ONLAY + CLGN RGNRT MEMBR STRL RPL [id number] PAULINA CRANIOMAXILLOFACIAL [id number] N/A 1 Implanted Estimated Blood Loss: 100 [...] no further orders documented in this encounter [facility] 12-27-2023 Hospital course Narrative Images from the original note were not included. [facility] [address] [place] [address], [address] [place] [address] * NEUROSURGERY DISCHARGE SUMMARY Patient: Regan Green Date of : 1950 Acct: [id number] Primary Care Physician: Sumanth Hill MD Admit [...] mg EC tablet Commonly known as: VOLTAREN CV Ingenuity ORAL OSTEO BI-FLEX ORAL oxyCODONE-acetaminophen 5-325 mg per tablet Commonly known as: PERCOCET tiZANidine 4 mg tablet Commonly known as: ZANAFLEX Where to Get Your Medications These medications were sent to [facility] [id number] [address] [place] [id number] methocarbamoL 500 mg tablet naloxone 4 mg/actuation [...] acceptable and clinically appropriate. JOSEMANUEL Lainez Neurosurgery [facility] Patient Touch 12/27/23 12:28 PM JOSEMANUEL Sandoval 12/27/23 1231 documented in this encounter [facility] 12-27-2023 Hospital Discharge instructions JOSEMANUEL Sandoval - [...] remove at that time. Other Instructions: Call [facility] Neurosurgery with any questions, . The following attachments cannot be sent through Care Everywhere.Radiculopathy Discharge Instructions (Turkmen)documented in this encounter [facility] alike [facility] 12-27-2023 Plan of care note Problem: Pain Goal: Patient goal is pain score less than 4, able to rest, and participant in treatment plan as appropriate Description: INTERVENTIONS: 1. Encourage patient or legal computer help desk representative to report early pain and ask [...] per policy 9. Teach patient or legal computer help desk representative interventions for comforting Outcome: Progressing Note: [...] at the bedside 7. Instruct patient/ patient computer help desk representative about use of safety devices 8. Include patient/ patient computer help desk representative in decisions related to safety Outcome: [...] hygiene technique 7. Identify and instruct patient/patient computer help desk representative in use of appropriate isolation precautions for identified infection/symptoms 8. Provide and discuss with patient/patient computer help desk representative on educational MDRO sheet 9. Encourage and monitor nutritional status daily and consult motor driver if indicated 10. Implement neutropenic guidelines as needed 11. Review exposure to history of communicable disease and recent travel history on admission 12. Encourage annual influenza vaccine 13. Encourage pneumonia vaccine Outcome: Progressing Note: Evaluation of progress towards goal: Patient denies fever. No purulent drainage noted at site. Plan of care ongoing. Problem: Knowledge Deficit Goal: Patient/patient computer help desk representative demonstrates understanding of disease process, treatment [...] Score of =/> 25 or indicated by [facility] Rehab Assessment Goal: Patient should be free from fall Description: Interventions: 1. Payette to environment 2. Hourly rounds addressing the [...] non-skid footwear 11. Teach patient and patient computer help desk representative to maintain environment for safety and [...] (cane, walker) within reach 19. Request patient computer help desk representative bring adaptive equipment/mobility aids from home or obtain and provide as needed 20. Consult pharmacy regarding effects of med's affecting mobility, cognition, and alternatives 21. Obtain physician order for PT if risk factors associated with mobility are present 22. Obtain physician order for OT as appropriate 23. Utilize diversional activities 24. Educate patient and patient computer help desk representative how to maintain a safe environment during visitation times (notify nurse prior to leaving bedside) 25. Consider appropriateness of medical or non-medical advisor 26. Set up voiding schedule as appropriate [...] progress towards goal: Plan of care ongoing. [facility] [employer] 12-27-2023 Progress note Formatting of t his note is different from the original. Physical Therapy CANCEL - Deferred Per RN pt is dizzy and diaphoretic laying supine in bed. Will hold PT treatment and attempt to complete session as able. [facility] 12-27-2023 History of Present illness Narrative Images from the original note were not included. [facility] [address] [place] [address], [address] [place] [address] * NEUROSURGERY DAILY PROGRESS NOTE DATE:12/27/2023 PATIENT'S [...] - Home later today JOSEMANUEL Lainez Neurosurgery [facility] Patient Touch 12/27/23 6:04 AM To find out which ESTEFANY is on for the day please go to [employer] and use log in [employer] and search for [facility] Neurosurgery JOSEMANUEL Sandoval 12/26/23 1010 JOSEMANUEL Sandoval 12/27/23 1228 Images from the original note were not included. [facility] [address] [place] [address], [address] [place] [address] * NEUROSURGERY DAILY PROGRESS NOTE DATE:12/26/2023 PATIENT'S [...] later vs in AM JOSEMANUEL Lainez Neurosurgery [facility] Patient Touch 12/26/23 9:51 AM To find out which ESTEFANY is on for the day please go to [employer] and use log in [employer] and search for [facility] Neurosurgery JOSEMANUEL Sandoval 12/26/23 1010 documented [facility] this encounter [facility] 12-27-2023 Plan of care note Problem: Pain Goal: Patient goal is pain score less than 4, able to rest, and participant in treatment plan as appropriate Description: INTERVENTIONS: 1. Encourage patient or legal computer help desk representative to report early pain and ask [...] per policy 9. Teach patient or legal computer help desk representative interventions for comforting Outcome: Progressing Note: [...] at the bedside 7. Instruct patient/ patient computer help desk representative about use of safety devices 8. Include patient/ patient computer help desk representative in decisions related to safety Outcome: [...] hygiene technique 7. Identify and instruct patient/patient computer help desk representative in use of appropriate isolation precautions for identified infection/symptoms 8. Provide and discuss with patient/patient computer help desk representative on educational MDRO sheet 9. Encourage and monitor nutritional status daily and consult motor driver if indicated 10. Implement neutropenic guidelines as needed 11. Review exposure to history of communicable disease and recent travel history on admission 12. Encourage annual influenza vaccine 13. Encourage pneumonia vaccine Outcome: Progressing Note: Evaluation of progress towards goal: patient free from s/s of infection Problem: Knowledge Deficit Goal: Patient/patient computer help desk representative demonstrates understanding of disease process, treatment [...] be free from fall Description: Interventions: 1. Payette to environment 2. Hourly rounds addressing the [...] non-skid footwear 11. Teach patient and patient computer help desk representative to maintain environment for safety and [...] (cane, walker) within reach 19. Request patient computer help desk representative bring adaptive equipment/mobility aids from home or obtain and provide as needed 20. Consult pharmacy regarding effects of med's affecting mobility, cognition, and alternatives 21. Obtain physician order for PT if risk factors associated with mobility are present 22. Obtain physician order for OT as appropriate 23. Utilize diversional activities 24. Educate patient and patient computer help desk representative how to maintain a safe environment during visitation times (notify nurse prior to leaving bedside) 25. Consider appropriateness of medical or non-medical advisor 26. Set up voiding schedule as appropriate [...] goal: patient maintaining body alignment per self [facility] 12-26-2023 Plan of care note Problem: Pain Goal: Patient goal is pain score less than 4, able to rest, and participant in treatment plan as appropriate Description: INTERVENTIONS: 1. Encourage patient or legal computer help desk representative to report early pain and ask [...] per policy 9. Teach patient or legal computer help desk representative interventions for comforting Outcome: Progressing Note: [...] at the bedside 7. Instruct patient/ patient computer help desk representative about use of safety devices 8. Include patient/ patient computer help desk representative in decisions related to safety Outcome: [...] hygiene technique 7. Identify and instruct patient/patient computer help desk representative in use of appropriate isolation precautions for identified infection/symptoms 8. Provide and discuss with patient/patient computer help desk representative on educational MDRO sheet 9. Encourage and monitor nutritional status daily and consult motor driver if indicated 10. Implement neutropenic guidelines as needed 11. Review exposure to history of communicable disease and recent travel history on admission 12. Encourage annual influenza vaccine 13. Encourage pneumonia vaccine Outcome: Progressing Note: Evaluation of progress towards goal: Patient is being monitored for s/sx of infection. Problem: Knowledge Deficit Goal: Patient/patient computer help desk representative demonstrates understanding of disease process, treatment [...] Score of =/> 25 or indicated by [facility] Rehab Assessment Goal: Patient should be free from fall Description: Interventions: 1. Payette to environment 2. Hourly rounds addressing the [...] non-skid footwear 11. Teach patient and patient computer help desk representative to maintain environment for safety and [...] (cane, walker) within reach 19. Request patient computer help desk representative bring adaptive equipment/mobility aids from home or obtain and provide as needed 20. Consult pharmacy regarding effects of med's affecting mobility, cognition, and alternatives 21. Obtain physician order for PT if risk factors associated with mobility are present 22. Obtain physician order for OT as appropriate 23. Utilize diversional activities 24. Educate patient and patient computer help desk representative how to maintain a safe environment during visitation times (notify nurse prior to leaving bedside) 25. Consider appropriateness of medical or non-medical advisor 26. Set up voiding schedule as appropriate [...] towards goal: Patient maintains proper anatomical alignment. [facility] [employer] [facility] 12-26-2023 Progress note Formatting of t his [...] Medical History: Diagnosis Date Cancer of prostate ([facility]) 2017 prostatectomy Diverticulitis Diverticulosis Fecal impaction ([facility]) Inflammation of sacroiliac joint ([facility]) Knee pain Low back pain Lumbar disc disorder Neurogenic claudication 12/17/2023 Osteoarthritis SBO (small bowel obstruction) ([facility]) 10/04/2023 Shingles UTI (urinary tract infection) Varicose veins of right lower extremity with pain 02/08/2020 Visual impairment 12/20/2023 Past Surgical History: Procedure Laterality Date ABDOMINAL ADHESION SURGERY COLONOSCOPY COLONOSCOPY N/A 03/25/2023 Performed by Matt Campbell DO at [facility] HERNIA REPAIR Left inguinal HIP SURGERY Left LAMINECTOMY LUMBAR MULTI LEVEL / L2-L5 N/A 12/25/2023 Performed by Mayco Nolen MD at [facility] PROSTATE BIOPSY PROSTATECTOMY REVISION TOTAL KNEE ARTHROPLASTY [...] pass Equipment: RW, gait belt, wound drain Telemetry/Video Tape Duplicator: Yes Oxygen Used: room air Other: fall [...] Gait Base of Support: Narrow Pattern: Decreased ojzef, R Decreased heel strike, L Decreased heel [...] Patient will perform bed mobility with Modified Bonner Dates: Start: 12/26/23 Expected End: 01/24/24 Description: Goal Description: with proper BUE placement and sequencing Disciplines: PT Problem: Gait Dates: Start: 12/26/23 Disciplines: PT Goal: Patient will perform gait with Modified Bonner Dates: Start: 12/26/23 Expected End: 01/24/24 Description: With__RW__,__150__feet Goal Description: with proper gait pattern and safety awareness Disciplines: PT Problem: Stairs/Curb Dates: Start: 12/26/23 Disciplines: PT Goal: Patient will perform stairs/curb with Modified Bonner Dates: Start: 12/26/23 Expected End: 01/24/24 Description: [...] Goal: Patient will perform transfers with Modified Bonner Dates: Start: 12/26/23 Expected End: 01/24/24 Description: Goal Description: with proper BUE placement and sequencing Disciplines: PT Physical Therapy Care Plan (Resolved) There are no resolved problems. Principal Problem: Radiculopathy, lumbar region Active Problems: Neurogenic claudication [facility] [employer] 12-26-2023 Progress note Formatting of t his [...] discharge home with , self care. - Jaec Silva RN 12/26/23 11:57 AM Met with [...] smoking, drinking alcohol or doing illciit drugs. [facility] 12-26-2023 Plan of care note Problem: Pain Goal: Patient goal is pain score less than 4, able to rest, and participant in treatment plan as appropriate Description: INTERVENTIONS: 1. Encourage patient or legal computer help desk representative to report early pain and ask [...] per policy 9. Teach patient or legal computer help desk representative interventions for comforting Outcome: Progressing Note: [...] hygiene technique 7. Identify and instruct patient/patient computer help desk representative in use of appropriate isolation precautions for identified infection/symptoms 8. Provide and discuss with patient/patient computer help desk representative on educational MDRO sheet 9. Encourage and monitor nutritional status daily and consult motor driver if indicated 10. Implement neutropenic guidelines as [...] of progress towards goal: progressing with walker [facility] 12-25-2023 Procedure note NEUROSURGERY OPERATIVE NOTE Patient [...] Kerrison punches. I then checked with a [place] elevator and confirmed that there was no residual lateral recess or foraminal stenosis. Epidural venous bleeding was controlled with Gelfoam soaked with thrombin. Inspection of the dura did not reveal any rents or stacy CSF leak. The cavity was irrigated with antibiotic infused saline. Hemostasis was achieved by coagulating the bleeding muscle points. A drain was placed in the epidural space and tunneled. The incision was then closed in standard layered fashion and dressed. The patient was awakened, extubated, and transported to the recovery room with stable vital signs. Complications: None. [facility] 12-25-2023 Procedure note Brief Post-op Note NAME: Regan Green : 1950 PROCEDURE DATE: 12/25/2023 Surgeon: Surgeon(s) and Role: * Mayco Nolen MD - Primary Assistants: None Staff: Hammer Shop Supervisor Primary: Lily Glasgow RN Hammer Shop Supervisor Relief: Dina Roy RN Scrub Person: Janak [...] Appearance Bloody 12/26/23444 Output (mL) 50 mL 12/26/23444 Implants: Implant Name Type Inv. Item Serial No. Veneer Slicing Machine Operator Lot No. LRB No. Used Action PATCH DURA 1X1IN DRMTRX-ONLAY + CLGN RGNRT MEMBR STRL RPL [id number] - [id number] Graft PATCH DURA 1X1IN DRMTRX-ONLAY + CLGN RGNRT MEMBR STRL RPL [id number] PAULINA CRANIOMAXILLOFACIAL [id number] N/A 1 Implanted Estimated Blood Loss: 100 ml OB Surgical Procedure Blood Loss: Anesthesia EBL: * No values recorded between 12/25/2023 3:09 PM and 12/25/2023 4:54 PM * OB QBL: * No values recorded between 12/25/2023 3:09 PM and 12/25/2023 4:54 PM * Condition: stable Findings: severe lateral recess stenosis [facility] 12-25-2023 Attending History and physical note HISTORY AND PHYSICAL INTERVAL NOTE: Regan Green 1950 [id number] H&P reviewed. The patient was examined and there are no changes to the H&P. Mayco Nolen MD Source Note - JOSEMANUEL Daniels - 12/20/2023 6:12 PM EST Letter to pain management seeking clarification on post operative pain medications. JOSEMANUEL Jackson [facility] Neuro[facility] Contact via patient touch 12/20/23 6:21 PM To find out which ESTEFANY is on for the day please go to [employer] and use log in [employer] and search for [facility] Neurosurgery (ESTEFANY and Phone Number is listed) JOSEMANUEL Daniels 12/20/23 9203 JOSEMANUEL Daniels 12/25/23 1330 [facility] 12-25-2023 History and physical note HISTORY AND PHYSICAL INTERVAL NOTE: Regan Green 1950 [id number] H&P reviewed. The patient was examined and there are no changes to the H&P. Mayco Nolen MD Source Note - JOSEMANUEL Daniels - 12/20/2023 6:12 PM EST Letter to pain management seeking clarification on post operative pain medications. JOSEMANUEL Jackson [facility] Contact via patient touch 12/20/23 6:21 PM To find out which ESTEFANY is on for the day please go to [employer] and use log in [employer] and search for [facility] Neurosurgery (ESTEFANY and Phone Number is listed) JOSEMANUEL Daniels 12/20/23 1821 JOSEMANUEL Daniels 12/25/23 1330 documented in this encounter [facility] 12-24-2023 Miscellaneous Notes I spoke to Kenneth to explain how Medicare authorizes surgeries. Reminded Kenneth of surgery tomorrow 12/25/23 at 2:45pm with TTH arrival time of 12:45 pm documented in this encounter [facility] 12-24-2023 Telephone encounter Note I spoke to Kenneth to explain how Medicare authorizes surgeries. Reminded Kenneth of surgery tomorrow 12/25/23 at 2:45pm with TTH arrival time of 12:45 pm [facility] 12-24-2023 Nurse Note Anesthesia review: Parveen Patel: 12/25: TTH: GA. only hx prostate CA. No c/o CP or SOB. EKGs: LAst PCP note Reviewed and accepted by Dr Vásquez with no further orders [facility] 12-20-2023 Miscellaneous Notes Patient called to advise office that he does not need surgery clearance from PCP. documented in this encounter [facility] 12-20-2023 Telephone encounter Note Patient called to advise office that he does not need surgery clearance from PCP. [facility] 12-20-2023 History and physical note PRE-ADMISSION TESTING HISTORY AND PHYSICAL EXAM DATE: 12/20/23 PCP: Sumanth Hill MD CHIEF COMPLAINT: back pain HISTORY OF PRESENT ILLNESS: Regan Green, a 73 y.o. White or male, presents to [facility] for a pre-surgical H&P. The patient has [...] Medical History: Diagnosis Date Cancer of prostate ([facility] 2017 prostatectomy Diverticulitis Diverticulosis Fecal impaction ([facility]) Inflammation of sacroiliac joint ([facility]) Knee pain Low back pain Lumbar disc disorder Neurogenic claudication 12/17/2023 Osteoarthritis SBO (small bowel obstruction) ([facility]) 10/04/2023 Shingles UTI (urinary tract infection) Varicose veins of right lower extremity with pain 02/08/2020 Visual impairment 12/20/2023 PAST SURGICAL HISTORY: Past Surgical History: Procedure Laterality Date ABDOMINAL ADHESION SURGERY COLONOSCOPY COLONOSCOPY N/A 03/25/2023 Performed by Matt Campbell DO at [facility] HERNIA REPAIR Left inguinal HIP SURGERY [...] the most recent lab values available in [facility] at the time of the office visit. PAT labs are pending per surgeon. ASSESSMENT / DIAGNOSIS: Linked DX: Radiculopathy, lumbar region [M54.16] PLAN: Regan Green is scheduled for Linked Case Date: 12/25/2023 Linked Surgeon: Forrest Nolen MD Linked Surgery: Laminectomy Lumbar Multi Level / L2-L5. JOSEMANUEL Santoyo 12/20/23 1511 [facility] 12-20-2023 History and physical note PRE-ADMISSION TESTING HISTORY AND PHYSICAL EXAM DATE: 12/20/23 PCP: Sumanth Hill MD CHIEF COMPLAINT: back pain HISTORY OF PRESENT ILLNESS: Regan Green, a 73 y.o. White or male, presents to [facility] for a pre-surgical H&P. The patient has [...] Medical History: Diagnosis Date Cancer of prostate [place] 2017 prostatectomy Diverticulitis Diverticulosis Fecal impaction ([facility]) Inflammation of sacroiliac joint ([facility] Knee pain Low back pain Lumbar disc disorder Neurogenic claudication 12/17/2023 Osteoarthritis SBO (small bowel obstruction) ([facility]) 10/04/2023 Shingles UTI (urinary tract infection) Varicose veins of right lower extremity with pain 02/08/2020 Visual impairment 12/20/2023 PAST SURGICAL HISTORY: Past Surgical History: Procedure Laterality Date ABDOMINAL ADHESION SURGERY COLONOSCOPY COLONOSCOPY N/A 03/25/2023 Performed by Matt Campbell DO at [facility] HERNIA REPAIR Left inguinal HIP SURGERY [...] the most recent lab values available in [facility] at the time of the office visit. PAT labs are pending per surgeon. ASSESSMENT / DIAGNOSIS: Linked DX: Radiculopathy, lumbar region [M54.16] PLAN: Regan Green is scheduled for Linked Case Date: 12/25/2023 Linked Surgeon: Forrest Nolen MD Linked Surgery: Laminectomy Lumbar Multi Level / L2-L5. Sindi L Montini, VP [employer] 12/20/23 1511 documented in this encounter [facility] 12-20-2023 Instructions Antonia Rosario RN - 12/20/2023 1:45 PM EST Your surgery/procedure is scheduled at [facility] on 12/25 at 2:45 Arrival Time 12:45 [facility] Address: [address] [place] [address] Park in P1 Parking lot located on [facility]. Report to the Entrance B. Check in at the information desk the surgery. The waiting room located on the second floor. If you have any questions prior to surgery, please call Pre-Admission Clinic at [phone] between 7:30 am and 4:30 pm Saturday through Saturday. If you have questions the morning of surgery, please call the Pre-op Department at [phone]. Notify your SURGEON if you develop any [...] would like to schedule therapy at a [facility] facility, please call [phone] ([phone]). Do not use lotions, creams, powders, perfume, make up, cologne or after-shaves day of surgery. Remove ALL jewelry including wedding rings, body piercings,hair extensions that contain metal, nail armenian, make-up, and contact lens. You may brush [...] RIGHTS AND RESPONSIBILITIES As a patient at [facility], you have the right to: Receive medical care and be informed of who is taking care of you Be treated with dignity and respect Have a family member/computer help desk representative of choice and your physician notified of your admission Receive information and actively participate in decisions about your care and treatment Refuse care, treatment and services Decide who may provide your support and speak for you Access uatsdin and spiritual services Participate in ethical issues [...] of hospital charges and payment methods Patient/patient computer help desk representative responsibilities are to: Provide information about [...] in clean clothes. documented in this encounter [facility] 12-18-2023 History of Present illness Narrative Pre [...] Chest Xray: 10/04/23 no acute pulmonary pathology JOSEMANUEL Jackson [facility] Neurosurgery Contact via patient touch 12/21/23 6:10 AM To find out which ESTEFANY is on for the day please go to [employer] and use log in [employer] and search for PTH Neurosurgery (ESTEFANY and Phone Number is listed) JOSEMANUEL Daniels 12/25/23 3158 [facility] 12-10-2023 Miscellaneous Notes Regan calls into the [...] would have to speak with Dr. Nolen production scheduler about surgery. Patient transferred to Dr. Nolen production scheduler. documented [facility] this [facility] 12-10-2023 Telephone encounter Note Regan calls into [...] therapy is making his back worse. Regan bobby returned. Patient stated that he has done [...] would have to speak with Dr. Nolen production scheduler about surgery. Patient transferred to Dr. Nolen production scheduler. [facility] 11-27-2023 Miscellaneous Notes Kenneth left a message to ask how many physical therapy visits he should try to complete before scheduling surgery. Left message for Kenneth to let him know at least six visits usually show good effort but if these are unsuccessful he needs to make sure the physical therapist is documenting increase of pain or ineffectiveness. documented in this encounter [facility] 11-27-2023 Telephone encounter Note Kenneth left a message to ask how many physical therapy visits he should try to complete before scheduling surgery. [facility] 11-27-2023 Telephone encounter Note Left message for Kenneth to let him know at least six visits usually show good effort but if these are unsuccessful he needs to make sure the physical therapist is documenting increase of pain or ineffectiveness. [facility] 11-14-2023 History of Present illness Narrative Images from the original note were not included. [facility] [address] [place] [address], [address] [place] [id number] * CHART NOTE ? 11/14/2023 Patient: Regan Green 1950 [id number] Nurse Practitioner: Carl Sosa, [employer] Physician: Mayco Nolen MD, FAANS CHIEF COMPLAINT [...] He was seen by [facility] in [place], but was advised they could no longer help. He has not had any interventional pain procedures, but was seen at [facility] in [place], [place], but was advised he should be seen here first. Patient's imaging was discussed and reviewed to their understanding in office today. Patient has not yet exhausted all conservative measures of treatment and is agreeable to them namely CHANTELLE. Denies loss of stock lifter strength, saddle anesthesia, urinary or bowel dysfunction, [...] Medical History: Diagnosis Date Carcinoma of prostate ([facility]) Diverticulitis Diverticulosis Fecal impaction ([facility]) Inflammation of sacroiliac joint ([facility]) Knee pain Low back pain Lumbar disc disorder Osteoarthritis Shingles UTI (urinary tract infection) Visual impairment PAST SURGICAL HISTORY Past Surgical History: Procedure Laterality Date ABDOMINAL ADHESION SURGERY COLONOSCOPY COLONOSCOPY N/A 03/25/2023 Performed by Matt Campbell DO at [facility] HERNIA REPAIR Left inguinal HIP SURGERY Left [...] Right achilles 2+ Left achilles 2+ Right stock lifter 2+ Left stock lifter 2+ Right Mack reflex absent and left [...] visible abscess or suspicious gas within the jnxdm-eu-ugpn Close clinical follow-up and short-term progress repeat [...] but was seen at [facility] in [place], [place], but was advised he should be [...] record of the patient encounter. Inadvertent computerized automotive manager errors related to syntax, spelling, homophones, and/or inaudibility may be present. Scribe Statement: Scribed for and in the presence of JOSEMANUEL Kirk by Joshua Higginbotham. JOSEMANUEL Kirk 11/14/23 1630 documented in this encounter [facility] [employer] 11-14-2023 Instructions AINSLEY Szymanski - 11/14/2023 9:30 AM EST Patient was seen by Dr. Nolen and OJSEMANUEL Chappell Patient was given an order for an x ray Lumbar spine Flex/Ext Medrol pack Physical therapy Referral for Lumbar to PT services Pain management referral for Lumbar L3-4 Patient will follow up after Pain management JA documented in this encounter [facility] 11-05-2023 Miscellaneous Notes ED Outreach This documentation is being used for Transition of Care purposes: Yes/No: Yes ED Outreach Date: November 05, 2023 ED Outreach Method: COMMUNICATION METHOD: Telephone ED Outreach Attempt: first ED Outreach Outcome: Contacted Patient Name of ED Facility: [facility] Date of ED Discharge: 10/31/2023 [...] with additional concerns. documented in this encounter [facility] 11-05-2023 Telephone encounter Note ED Outreach This documentation is being used for Transition of Care purposes: Yes/No: Yes ED Outreach Date: November 05, 2023 ED Outreach Method: COMMUNICATION METHOD: Telephone ED Outreach Attempt: first ED Outreach Outcome: Contacted Patient Name of ED Facility: [facility] Date of ED Discharge: 10/31/2023 [...] will contact the office with additional concerns. [facility] 10-30-2023 Evaluation note Encounter Date Diagnosis Assessment [...] pain of right shoulder (ICD-10 - M25.511) [employer] Other 12-19-2023 NoteCT LUMBAR SPINE WO CONT [...] abscess or suspicious gas visible within the myizd-th-nvxp. Repeat contrast abdominal pelvic CT may prove useful in combination with colonic screening with appropriate Probable parapelvic cysts in the left kidney Prominent vascular calcifications There is some metal artifact related to a prior surgery at the left acetabular region. There are also clips in the low pelvis as seen on the transportation aid image Sagittal images include from the lower [...] visible abscess or suspicious gas within the wprbp-bp-yxax Close clinical follow-up and short-term progress repeat abdominal pelvic contrast CT and colonic screening considered There is also be severe degenerative change of the lumbar spine and relatively severe canal and neural foraminal stenosis probably greatest at L3-4 and L4-5 levels There is no compression deformity or destructive bone process Finalized by Renaldo Tinajero MD on 10/22/2023 1:09 [facility] 08-20-2023 Evaluation note* Encounter Date [...] pain of right shoulder (ICD-10 - M25.511) [employer] Other 09-19-2023 Evaluation note* Encounter Date Diagnosis [...] pain of right shoulder (ICD-10 - M25.511) [employer] Other 08-21-2023 Evaluation note* Encounter Date Diagnosis [...] pain of right shoulder (ICD-10 - M25.511) [employer] Other 07-18-2023 Evaluation note* Encounter Date Diagnosis [...] given order for occupational therapy and braces [employer] Other 05-16-2023 NoteCONSULTATION CONSULTATION DATE: 03/19/2023 TO: [...] our patients to inform us about any rssv-bpj-tbwjwzg medications or herbal remedies/nutritional supplements/alternative remedies. 2. [...] treatment options with their primary care provider.[facility] [id number] Note CONSULTATION PROCEDURE DATE: 02/21/2023 PROCEDURE: Right [...] removed. He was discharged after meeting criteriaThe [facility] [id number] NoteCONSULTATION CONSULTATION DATE: 12/18/2022 CHIEF COMPLAINT: Left [...] like to proceed. CC: Sumanth Hill M.D.[facility] [id number] NoteCONSULTATION PROCEDURE DATE: 12/18/2022 PREOPERATIVE DIAGNOSIS: Osteoarthritis [...] will be followed up in the office.[facility] [id number] NoteCONSULTATION CONSULTATION DATE: 11/22/2022 HISTORY OF PRESENT [...] food. We will send a referral to [facility] to have his left CMC joint evaluated. Patient does agree with this, and we will follow him up in the clinic in three months' time.[facility] [id number] NotePROCEDURE: XR HAND LT MIN 3V HISTORY: [...] by: ALESSANDRO MEJIA Date: 2022-09-26 22:39[facility]11-17-2022 NoteCONSULTATION CONSULTATION DATE: 09/20/2022 HISTORY OF [...] mg t.i.d., Percocet 5/325 b.i.d., multivitamin and Genwq-Fm-Qsxz. Patient, procedure-holloway, had radiofrequency ablation of his [...] to the clinic thereafter for follow up.[facility] [id number] NoteCONSULTATION CONSULTATION DATE: 08/02/2022 HISTORY OF PRESENT [...] lately, carrying heavy feed bags into the [place] for hunting season. He knows he is [...] of care and all questions were answered.[facility] [id number] NoteCONSULTATION CONSULTATION DATE: 06/14/2022 This is a [...] and Achilles reflexes are +2. DIAGNOSIS: Code [facility] is 724.6. PLAN: We will authorize for a left SI joint injection, refill his Percocet 5/325 b.i.d. and refill Diclofenac 50 mg t.i.d. He is compliant with his vitamin regimen. At this time, I reiterated the use of heat and stretches. The patient will be followed in the clinic post-procedure and agrees to move forward.[facility] HospitalEvaluation noteNo assessment information available [facility] Work Phone: Evaluation note* Diagnosis Lumbar radiculopathy, chronic- Primary [facility] Diagnosis Neurogenic claudication- Primary Spinal stenosis of lumbar region Lumbar radiculopathy, chronic [facility]* Diagnosis Radiculopathy, lumbar region Thoracic [...] of lumbar region [facility]* Diagnosis Radiculopathy, lumbar region- Primary Thoracic or lumbosacral neuritis or radiculitis, unspecified Radiculopathy, lumbar region Thoracic or lumbosacral neuritis or radiculitis, unspecified Neurogenic claudication Spinal stenosis of lumbar region Neurogenic claudication Spinal stenosis of lumbar region [facility]* Diagnosis Onset Date Resolution Status Left hand pain acute 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, left hand acute [facility] Work Phone: History general Narrative - Reported* Type Description Date Medical History post knee right replacement Surgical History knee replacement right Surgical History hernia Surgical History prostatectomy Surgical History acetabulum fx Hospitalization History see above [employer] Other InstructionsNot on filedocumented in this encounter [facility] alike SystemInstructionsNot on filedocumented in this encounter [facility] alike SystemInstructionsNot on filedocumented in this encounter [facility] SystemInstructionsNot on filedocumented in this encounter [facility] for referral (narrative)* Consultation (Routine) - Pending Review Specialty Diagnoses / Procedures Referred By Gaston borges Referred To Contact Neurosurgery Diagnoses Lumbar radiculopathy, chronic Sumanht Hill MD [address] [place] [address] Mayco Nolen MD [address] [place] [phone] Referral ID Status Reason Start Date Expiration Date Visits Requested Visits Authorized [id number] Pending Review Specialty Services Required 11/05/2023 11/04/2024 1 1 [facility] (narrative)* Consultation (Routine) - Pending Review Specialty Diagnoses / Procedures Referred By Gaston borges Referred To Contact Pain Medicine Diagnoses Lumbar radiculopathy, chronic Neurogenic claudication Carl Sosa APRN-CNP [address] [place] [address] [address] Referral ID Status Reason Start Date Expiration Date V isits Requested Visits Authorized [id number] Pending Review 11/14/2023 11/13/2024 1 1 * Physical Therapy (Routine) - Pending Review Specialty Diagnoses / Procedures Referred By Gaston t Referred To Contact Rehabilitation Diagnoses Lumbar radiculopathy, chronic Neurogenic claudication Carl Sosa APRN-CNP [address] [place] [address] [facility] [address] [place] [address] Referral ID Status Reason Start Date Expiration Date Visits Requested Visits Authorized [id number] Pending Review Specialty Services Required 11/14/2023 11/13/2024 1 1 [facility] Summary Purpose Family History No Family [...] section and content) DATE CREATED AUTHOR 04/21/2018 [facility] DATE CREATED AUTHOR AUTHOR'S ORGANIZ ATION 12/04/2021 [facility] DATE CREATED AUTHOR AUTHOR'S ORGANIZ ATION 02/25/2022 [facility] dical Specialist DATE CREATED AUTHOR AUTHOR'S ORGANIZ ATION 04/12/2023 [facility] DATE CREATED AUTHOR AUTHOR'S ORGANIZ ATION 07/01/2023 [facility] DATE CREATED AUTHOR AUTHOR'S ORGANIZ ATION 11/27/2023 [facility] DATE CREATED AUTHOR AUTHOR'S ORGANIZ ATION 04/25/2024 [facility] DATE CREATED AUTHOR AUTHOR'S ORGANIZ ATION 04/30/2024 [facility] DATE CREATED AUTHOR AUTHOR'S ORGANIZ ATION 04/30/2024 [facility] REASON FOR VISIT (unrecogniz ed section and content) Reason Onset Date Comments Er Follow-up 11/05/2023 Reason Comments New Patient stitcher hand/lumbar/promedica films/no w/c/mailed pkt Specialty Diagnoses / Procedures Referred By Gaston borges Referred To Contact Neurosurgery Diagnoses Lumbar [place]opathy, [place] [address] [place] [address]. [place] [address] Mayco Nolen MD [address] [place] [phone] Referral ID Status Reason Start Date Expiration Date Visits Requested Visits Authorized [id number] Pending Review Specialty Services Required 11/05/2023 11/04/2024 1 1 Reason Onset Date Comments surgery 12/10/2023 Reason Onset Date Comments surgery 12/24/2023 Specialty Diagnoses / Procedures Referred By Gaston borges Referred To Contact Referral ID Status Reason Start Date Expiration Date Visits Re quested Visits Authorized [id number] 1 1 Care Teams (unrecognized sec tion [...] Active Charity Barkley MD Attending Provider Active 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 Start Date End Date Sumanth Hill MD [address] [place] [address] PCP - General Family Medicine 01/16/23 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 Start Date End Date Sumanth Hill MD [address] [place] [address] PCP - General Family Medicine 01/16/23 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 Start Date End Date Sumanth Hill MD [address] [place] [address] PCP - General Family Medicine 01/16/23 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 Start Date End Date Sumanth Hill MD [address] [place] [address] PCP - General Family Medicine 01/16/23 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 Start Date End Date Sumanth Hill MD [address] [place] [address] PCP - General Family Medicine 01/16/23 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 Start Date End Date Sumanth Hill MD [address] [place] [address] PCP - General Family Medicine 01/16/23 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 Start Date End Date Sumanth Hill MD [address] [place] [address] PCP - General [facility] 01/16/23 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 Start Date End Date Sumanth Hill MD [address] [place], [place] [id number] PCP - General [facility] 01/16/23 Team Status: Inactive Member Role Status [...] Thomas RN)2143 (Stop Bag - Provider: Bandar Bahena RN) enoxaparin (LOVENOX) syringe 40 mg 40 mg, subcutaneous, Daily, First dose on Tanya 12/26/23 at 0600, PACU & Post-op, When Creatinine Clearance 30 mL/min or greater Look-alike/sound-alike medication - verify indication for use. 0525 (Given - Provider: Bandar Bahena RN) 05 (Given - Provider: Pineda Alexandra, RN) gabapentin (NEURONTIN) tablet 600 mg 600 mg, oral, 2 times daily, First dose on Sat12/25/23 at 2100, PACU & Post-op, Look-alike/sound-alike medication - verify indication for use. 2003 (Given - Provider: Shira Thomas RN) 822 (Given - Provider: José Miguel Devine RN)2022 (Given - Provider: Pineda Alexandra, MIREILLE) 943 (Given - Provider: Michaelle Zeng, MIREILLE) [...] dose 0905 (New Bag - Provider: Michaelle Zeng, MIREILLE)0935 (Stop Bag - Provider: Michaelle Zeng, RN) methocarbamoL (ROBAXIN) tablet 500 mg 500 mg, oral, 4 times daily, First dose on Tanya 12/26/23 at 0900 0912 (Given - Provider: José Miguel Devine RN)1414 (Given - Provider: José Miguel Devine, RN)1752 (Given - Provider: José Miguel Devine, RN)2150 (Given - Provider: Pineda Alexandra, MIREILLE) 0945 (Given - Provider: Michaelle Zeng, MIREILLE) polyethylene glycol (GLYCOLAX) packet 17 g 17 g, oral, Daily, First dose on Sat12/25/23 at 1945, PACU & Post-op, Look-alike/sound-alike medication - verify indication for use. Dissolve 1 packet (17 gm) in 8 ounces of water, juice, soda, coffee or tea. 2055 (Given - Provider: Shira Thomas RN) 08 (Given - Provider: José Miguel Devine RN) 09 (Given - Provider: Michaelle Zeng, RN) sennosides-docusate sodium (SENOKOT-S) 8.6-50 mg 1 tablet 1 tablet, oral, 2 times daily, First dose on Tanya 12/26/23 at 0900, PACU & Post-op, Start Post-Op Day 1: Hold for diarrhea 821 (Given - Provider: José Miguel Devine RN)2022 (Given - Provider: Pineda Alexandra, RN) 943 (Given - Provider: Michaelle Zeng, RN) sodium chloride 0.9 % flush 3 mL 3 mL, intravenous, Every 12 hours scheduled, First dose on Sat12/25/23 at 2100, PACU & Post-op, Once tolerating oral intake 2099 (Given - Provider: Shira Thomas RN) 822 [...] 1945 (Given - Provider: Shira Thomas RN) 08 (Not Given - Provider: José Miguel Devine RN - Reason: See Provider Order) Continuous Medication Order 12/25/2023 12/26/2023 12/27/2023 lactated ringers infusion (CANCELED) 75 mL/hr, intravenous, Continuous, Starting on Sat12/25/23 at 1445, Pre-op, If fluid restriction is not indicated, infuse at a rate up to 5 mL/kg/hr not to exceed the total replacement volume (2 ml/kg/hr) from the time NPO status was initiated. 144 (New Bag - Provider: Vibha Saeed RN)1947 (New Bag - Provider: Shira Thomas RN) 190 (Stop Bag - Provider: Pineda Alexandra RN [...] Vibha Saeed RN) lidocaine-EPINEPHrine (XYLOCAINE W/EPI) 1 %-1:251522 injection (CANCELED) As needed, Starting on Sat12/25/23 [...] Indication: anxiety 1458 (Given - Provider: Vibha Saede RN) ondansetron (PF) (ZOFRAN) injection 4 mg [...] - verify indication for use. Immediate release. 1720 (Given - Provider: Sheri Adler RN)2056 (Given - Provider: Shira Thomas RN)233 (Given - Provider: Bandar Bahena RN) 045 (Given - Provider: Bandar Bahena RN)1227 (Given - Provider: José Miguel Devine RN)175 (Given - Provider: José Miguel Devine, RN) 0944 (Given - Provider: Michaelle Zeng, RN) oxyCODONE (ROXICODONE) immediate release tablet 5 mg(Linked Group 2) 5 mg, oral, Every 3 hours PRN, moderate pain - pain scale 4-6, Starting on Sat12/25/23 at 1715, PACU & Post-op, Look-alike/sound-alike medication - verify indication for use. Immediate release. 172 (See Alternative - Provider: Sheri Adler RN)2056 (See Alternative - Provider: Shira Thomas RN)2334 (See Alternative - Provider: Bandar Bahena RN) 045 (See Alternative - Provider: Bandar Bahena RN)122 (See Alternative - Provider: José Miguel Devine RN)175 (See Alternative - Provider: José Miguel Devine RN) 0944 (See Alternative - Provider: Michaelle Zeng, RN) sodium chloride [...] BE BASED ON THE PRIMARY CLINICAL RECORDS. [facility] [employer] [facility]. provides no warranty or guarantee of the accuracy or completeness of information in this document.
== END 2024-04-30 08:37 | disposition home or self-care (01) ==
LOC: PM 08:36
PROVIDERS: PCP Family Medicine; Visit Provider Nurse Practitioner
DX: M46.1 Sacroiliitis, not elsewhere classified (principal); M62.838 Other muscle spasm; Z79.899 Other long term (current) drug therapy
CPT/HCPCS: G0463

== ENCOUNTER 2024-05-19 07:06 | Day surgery (SDC) | payer MEDICARE, OTHER, SELFPAY ==
--- OUTSIDE RECORDS SUMMARY | 2024-05-19 07:10 | XMS_ITS | CCD ---
Author Organization [facility] Care Team Providers Care Coal Mine Inspector Name Role Phone PHYSICIAN, DEFAULT Unavailable Unavailable [...] Hill MD, Sumanth Borges Primary Care Provider [phone] Chloe DELUCA, Rosales Leon Attending Unavailable SOSA, [...] Primary Care Unavailable SOSA, CARL Attending Unavailable DEFRANCE, SUMANTH T Referring Unavailable DEFRANCE, SUMANTH T Primary Care Unavailable MAYCO NOLEN Attending Unavailable DEFRANCE, SUMANTH T Referring Unavailable DEFRANCE, SUMANTH T Primary Care Unavailable DEFRANCE, SUMANTH T Referring Unavailable DEFRANCE, SUMANTH T Primary Care Unavailable SOSA, CARL Attending Unavailable MINH HELLER Attending Unavailable DEFRANCE, SUMANTH T Referring Unavailable DEFRANCE, SUMANTH T Primary Care Unavailable DEFRANCE, SUMANTH T Primary Care Unavailable DEFRANCE, SUMANTH T Referring Unavailable DEFRANCE, SUMANTH T Primary Care Unavailable SOSA, CARL Referring Unavailable DEFRANCE, SUMANTH T Primary Care Unavailable SOSA, CARL Referring Unavailable DEFRANCE, SUMANTH T Primary Care Unavailable SOSA, CARL Referring Unavailable DEFRANCE, SUMANTH Borges Primary Care Unavailable CARL SOSA Referring Unavailable DEFRANCE, SUMANTH Borges Primary Care Unavailable DEFRANCE, SUMANTH Borges Primary Care Unavailable MAEVE COTA Attending Unavailable MAEVE COTA Referring Unavailable DEFRANCE, SUMANTH Borges Primary Care Unavailable SOSACARL Referring Unavailable DEFRANCE, SUMANTH Borges Primary Care Unavailable SOSACARL Referring Unavailable DEFRANCE, SUMANTH Borges Primary Care Unavailable MAYCO NOLEN Referring Unavailable DEFRANCE, SUMANTH Borges Primary Care Unavailable DEFRANCE, SUMANTH Borges Referring Unavailable DEFRANCE, SUMANTH Borges Primary Care Unavailable Medications Current Medications Medication [...] e docusate sodium 50 mg / sennosides, [facility] 8.6 mg oral tablet (1 source) Start: [...] Administer over 2-5 minutes. 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 Values obtained by different assay methods cannot be used interchangeably. Performed By: #### 2 857-1 #### [facility] ([id number]) [address], [address] [place] [address] XR SPINE LUMBAR 2 OR 3 VWSon [...] Granados MD on 04/24/2024 2:[address] [facility] MR LUMBAR SPINE WO CONTon MR [...] on 04/22/2024 2:10 PM Normal [facility] XR SPINE LUMB BENDING ONLY 2 -3 [...] Menjivar MD on 02/13/2024 2:[address] [facility] BASIC METABOLIC PANLon 12-27 Anion gap [Moles/Vol] 8 mmol/L Normal 5-15 [facility] Comment on above: Performed By: #### C BC, BMP, , 49213-3 ####[facility] ([id number])[address], [address] [address] Calcium [Mass/Vol] 9.2 mg/dL Normal 8.5-10.5 [facility] Comment on above: Performed By: #### C BC, BMP, , 40873-6 ####[facility] ([id number])[address], [address], [place] [address] Chloride [Moles/Vol] 103 mmol/L Normal 98-109 [facility] Comment on above: Performed By: #### C BC, BMP, , 76912-9 ####[facility] ([id number])[address], [address] [address] CO2 [Moles/Vol] 28 mmol/L Normal 22-32 [facility] Comment on above: Performed By: #### C BC, BMP, 19143-6, 70946-5 ####[facility] ([id number])[address], [address] [place] [address] Creatinine [Mass/Vol] 0.77 mg/dL Normal 0.60-1.30 [facility] Comment on above: Result Comment: METH OD TRACEABLE TO IDMS STANDARD Performed By: #### C TIP PÉREZ, , 90722-0 ####[facility] ([id number])[address], [address] [address] eGFR (CKD-EPI) NON-RACE DEPENDENT >90 Normal >59 [facility] Comment on above: Result Comment: Reported eGFR is based on the CKD-EPI 2020 equation that does not use a race coefficient. Performed By: #### C TIP PÉREZ, , 34902-8 ####[facility] ([id number])[address] [address] [address] Glucose [Mass/Vol] 110 mg/dL High 65-99 [facility] Comment on above: Performed By: #### TIP CADET, , 35527-2 ####[facility] ([id number])[address] [address] Potassium [Moles/Vol] 4.3 mmol/L Normal 3.5-5.0 [facility] Comment on above: Performed By: #### TIP CADET, , 92932-6 ####[facility] ([id number])[address] [address] Sodium [Moles/Vol] 139 mmol/L Normal 134-146 [facility] Comment on above: Performed By: #### TIP CADET, , 13536-7 ####[facility] ([id number])[address] [address] Urea nitrogen [Mass/Vol] 14 mg/dL Normal 5-27 [facility] Comment on above: Performed By: #### TIP CADET, , ####[facility] ([id number])[address] [facility], [address] [place] [address] Basic Metabolic Panelon 12-06 Anion gap [Moles/Vol] 8 mmol/L 5 - 15 mmol/L [facility] Calcium [Mass/Vol] 9.2 mg/dL 8.5 - 10. 5 mg/dL [facility] Chloride [Moles/Vol] 103 mmol/L 98 - 109 mmol/L [facility] CO2 [Moles/Vol] 28 mmol/L 22 - 32 mmol/L [facility] Creatinine [Mass/Vol] 0.77 mg/dL 0.60 - 1.30 mg/dL [facility] Comment on above: METHOD TRACEABLE TO [facility] STANDARD eGFR (CKD-EPI)non-race dependent - PINF [facility] Comment on above: Reported eGFR is based on the CKD-EPI 2020 equation that does not use a race coefficient. Glucose [Mass/Vol] 110 mg/dL High 65 - 99 mg/dL [facility] Interpretation and review of laboratory results Abnormal [facility] Potassium [Moles/Vol] 4.3 mmol/L 3.5 - 5.0 mmol/L [facility] Sodium [Moles/Vol] 139 mmol/L 134 - 146 mmol/L [facility] Urea nitrogen [Mass/Vol] 14 mg/dL 5 - 27 mg/dL [facility] CBC without diffon Erythrocyte distribution width (RBC) [Ratio] 13.3 % 11.5 - 15.0 % [facility] Hematocrit (Bld) [Volume fraction] 36.3 % Low 39 - 49 % [facility] Hemoglobin (Bld) [Mass/Vol] 12.4 g/dL Low 13.0 - 17.0 g/dL [facility] Interpretation and review of laboratory results Abnormal [facility] MCH (RBC) [Entitic mass] 30.2 pg 27 - 34 pg [facility] MCHC (RBC) [Mass/Vol] 34.2 g/dL 32 - 36 g/dL [facility] MCV (RBC) [Entitic vol] 88 fL 80 - 100 fL [facility] Platelet mean volume (Bld) [Entitic vol] 7.2 fL 7 - 12 fL [facility] Platelets (Bld) [#/Vol] 243 10*3/uL [facility] RBC (Bld) [#/Vol] 4.12 10*6/uL [facility] WBC corrected for nucl RBC Auto (Bld) [#/Vol] 11.6 High [facility] COMPLETE BLOOD COUNTon 12-27 Erythrocyte distribution width (RBC) [Ratio] 13.3 % Normal 11.5-15.0 [facility] Comment on above: Performed By: #### C TIP PÉREZ, , 86523-5 ####[facility] ([id number])[address], [address] [place] [address] Hematocrit (Bld) [Volume fraction] 36.3 % Low 39-49 [facility] Comment on above: Performed By: #### TIP CADET, , 99242-0 ####[facility] ([id number])[address] [address] [place] [address] Hemoglobin (Bld) [Mass/Vol] 12.4 g/dL Low 13.0-17.0 [facility] Comment on above: Performed By: #### TIP CADET, , 48794-4 ####[facility] ([id number])[address], [address] [place] [address] MCH (RBC) [Entitic mass] 30.2 pg Normal 27-34 [facility] Comment on above: Performed By: #### TIP CADET, , 65713-3 ####[facility] ([id number])[address] [address] [place] [address] MCHC (RBC) [Mass/Vol] 34.2 g/dL Normal 32-36 [facility] Comment on above: Performed By: #### TIP CADET, , 49224-8 ####[facility] ([id number])[address], [address], [place] [address] MCV (RBC) [Entitic vol] 88 fL Normal 80-100 [facility] Comment on above: Performed By: #### C ELISA, BMP, , 25818-4 ####[facility] ([id number])[address], [address] [address] Platelet mean volume (Bld) [Entitic vol] 7.2 fL Normal 7-12 [facility] Comment on above: Performed By: #### C BC, BMP, , 51821-6 ####[facility] ([id number])[address] [address] [address] Platelets (Bld) [#/Vol] 243 10*3/uL Normal 150-450 [facility] Comment on above: Performed By: #### C ELISA, BMP, , 37023-6 ####[facility] ([id number])[address] [address] [address] RBC COUNT 4.12 X10E12/L Normal 4.10-5.70 [facility] Comment on above: Performed By: #### C ELISA, BMP, , 55296-0 ####[facility] ([id number])[address] [address] [address] WBC (Bld) [#/Vol] 11.6 10*3/uL High 4.0-11.0 [facility] Comment on above: Performed By: #### C BC, BMP, , 89027-2 ####[facility] ([id number])[address], [address] [address] ECG 12 leadon 12-27-2023 TRACEMASTERVUE [facility] Glucose Glucometer (BldC) [M ass/Vol]on 12-27-2023 Glucose [Mass/Vol] 98 mg/dL 65 - 99 mg/dL [facility] Glucose [Mass/Vol] 98 mg/dL Normal 65-99 [facility] MAGNESIUMon 12-27-2023 Magnesium [Mass/Vol] 1.9 mg/dL Normal 1.8-2.6 [facility] Comment on above: Performed By: #### TIP CADET, , 26886-6 ####[facility] ([id number])[address], [address] [address] Magnesiumon 12-27-2023 Magnesium [Mass/Vol] 1.9 mg/dL 1.8 - 2.6 mg/dL [facility] No Panel Informationon 12-27 [facility] TROPONIN Ion 12-27-2023 Troponin I.cardiac [Mass/Vol] ng/mL Normal 0.00-0.04 [facility] Comment on above: Performed By: #### TIP CADET, , 32826-6 ####[facility] ([id number])[address], [address] [place] [address] Troponin Ion 12-27-2023 Troponin I.cardiac [Mass/Vol] ng/mL 0.00 - 0.04 ng/mL [facility] Troponin I.cardiac [Mass/Vol ]on 12-27-2023 [facility] BASIC METABOLIC PANLon 12-26 Anion gap [Moles/Vol] 9 mmol/L Normal 5-15 [facility] Comment on above: Performed By: #### Sujey PÉREZ BMP #### [facility] ([id number]) [address], [address] [place] [address] Calcium [Mass/Vol] 9.4 mg/dL Normal 8.5-10.5 [facility] Comment on above: Performed By: #### Sujey PÉREZ BMP #### [facility] ([id number]) [address], [address] [place] [address] Chloride [Moles/Vol] 106 mmol/L Normal 98-109 [facility] Comment on above: Performed By: #### Sujey PÉREZ, BMP #### [facility] ([id number]) [address], [address] [place] [address] CO2 [Moles/Vol] 25 mmol/L Normal 22-32 [facility] Comment on above: Performed By: #### Sujey PÉREZ, BMP #### [facility] ([id number]) [address] [address] [place] [address] Creatinine [Mass/Vol] 0.63 mg/dL Normal 0.60-1.30 [facility] Comment on above: Result Comment: METH OD TRACEABLE TO IDMS STANDARD Performed By: #### Sujey PÉREZ, BMP #### [facility] ([id number]) [address] [address] [place] [address] eGFR (CKD-EPI) NON-RACE DEPENDENT >90 Normal >59 [facility] Comment on above: Result Comment: Reported eGFR is based on the CKD-EPI 2020 equation that does not use a race coefficient. Performed By: #### Sujey PÉREZ, BMP #### [facility] ([id number]) [address], [address] [place] [address] Glucose [Mass/Vol] 140 mg/dL High 65-99 [facility] Comment on above: Performed By: #### Sujey PÉREZ, BMP #### [facility] ([id number]) [address] [address] [place] [address] Potassium [Moles/Vol] 4.6 mmol/L Normal 3.5-5.0 [facility] Comment on above: Performed By: #### Sujey PÉREZ, BMP #### [facility] ([id number]) [address], [address] [place] [address] Sodium [Moles/Vol] 140 mmol/L Normal 134-146 [facility] Comment on above: Performed By: #### C ELISA, BMP #### [facility] ([id number]) [address], [address] [place] [address] Urea nitrogen [Mass/Vol] 17 mg/dL Normal 5-27 [facility] Comment on above: Performed By: #### C ELISA, BMP #### [facility] ([id number]) [address], [address] [place] [address] Basic Metabolic Panelon 12-06 Anion gap [Moles/Vol] 9 mmol/L 5 - 15 mmol/L [facility] Calcium [Mass/Vol] 9.4 mg/dL 8.5 - 10. 5 mg/dL [facility] Chloride [Moles/Vol] 106 mmol/L 98 - 109 mmol/L [facility] CO2 [Moles/Vol] 25 mmol/L 22 - 32 mmol/L [facility] Creatinine [Mass/Vol] 0.63 mg/dL 0.60 - 1.30 mg/dL [facility] Comment on above: METHOD TRACEABLE TO IDTN STANDARD eGFR (CKD-EPI)non-race dependent - PINF [facility] Comment on above: Reported eGFR is based on the CKD-EPI 2020 equation that does not use a race coefficient. Glucose [Mass/Vol] 140 mg/dL High 65 - 99 mg/dL [facility] Interpretation and review of laboratory results Abnormal [facility] Potassium [Moles/Vol] 4.6 mmol/L 3.5 - 5.0 mmol/L [facility] Sodium [Moles/Vol] 140 mmol/L 134 - 146 mmol/L [facility] Urea nitrogen [Mass/Vol] 17 mg/dL 5 - 27 mg/dL [facility] CBC without diffon Erythrocyte distribution width (RBC) [Ratio] 13.5 % 11.5 - 15.0 % [facility] Hematocrit (Bld) [Volume fraction] 37.5 % Low 39 - 49 % [facility] Hemoglobin (Bld) [Mass/Vol] 12.7 g/dL Low 13.0 - 17.0 g/dL [facility] Interpretation and review of laboratory results Abnormal [facility] MCH (RBC) [Entitic mass] 30.0 pg 27 - 34 pg [facility] MCHC (RBC) [Mass/Vol] 33.9 g/dL 32 - 36 g/dL [facility] MCV (RBC) [Entitic vol] 89 fL 80 - 100 fL [facility] Platelet mean volume (Bld) [Entitic vol] 7.2 fL 7 - 12 fL [facility] Platelets (Bld) [#/Vol] 264 10*3/uL [facility] RBC (Bld) [#/Vol] 4.23 10*6/uL [facility] WBC corrected for nucl RBC Auto (Bld) [#/Vol] 12.6 High [facility] COMPLETE BLOOD COUNTon 12-26 Erythrocyte distribution width (RBC) [Ratio] 13.5 % Normal 11.5-15.0 [facility] Comment on above: Performed By: #### C ELISA, BMP #### [facility] ([id number]) [address], [address] [place] [address] Hematocrit (Bld) [Volume fraction] 37.5 % Low 39-49 [facility] Comment on above: Performed By: #### C ELISA, BMP #### [facility] ([id number]) [address], [address] [place] [address] Hemoglobin (Bld) [Mass/Vol] 12.7 g/dL Low 13.0-17.0 [facility] Comment on above: Performed By: #### C ELISA, BMP #### [facility] ([id number]) [address], [address] [place] [address] MCH (RBC) [Entitic mass] 30.0 pg Normal 27-34 [facility] Comment on above: Performed By: #### C ELISA, BMP #### [facility] ([id number]) [address], [address] [place] [address] MCHC (RBC) [Mass/Vol] 33.9 g/dL Normal 32-36 [facility] Comment on above: Performed By: #### Sujey PÉREZ, BMP #### [facility] ([id number]) [address], [address] [place] [address] MCV (RBC) [Entitic vol] 89 fL Normal 80-100 [facility] Comment on above: Performed By: #### Sujey PÉREZ, BMP #### [facility] ([id number]) [address], [address] [place] [address] Platelet mean volume (Bld) [Entitic vol] 7.2 fL Normal 7-12 [facility] Comment on above: Performed By: #### Sujey PÉREZ, BMP #### [facility] ([id number]) [address] [address] [place] [address] Platelets (Bld) [#/Vol] 264 10*3/uL Normal 150-450 [facility] Comment on above: Performed By: #### Sujey PÉREZ, BMP #### [facility] ([id number]) [address], [address] [place] [address] RBC COUNT 4.23 X10E12/L Normal 4.10-5.70 [facility] Comment on above: Performed By: #### Sujey PÉREZ, BMP #### [facility] ([id number]) [address], [address] [place] [address] WBC (Bld) [#/Vol] 12.6 10*3/uL High 4.0-11.0 [facility] Comment on above: Performed By: #### Sujey PÉREZ, BMP #### [facility] ([id number]) [address], [address] [place] [address] ABO Rh Repeaton 12-25-2023 ABO AB [facility] Rh Nom (Bld) Positive [facility] [place] FLUORO GUIDANCE SPINAL PU [...] Miguel Avelar on 12/25/2023 4:[address] [facility] RF Guidance for injection of Spine [...] José Miguel Avelar on 12/25/2023 4:51 PM [facility] Radiology Study observation (narrative) [facility] RF Guidance for injection of Spine facet jointOrdered By: José Miguel Avelar on 12-25-2023 [facility] Work Phone: Bacteria identified Cx Nom ( U)on 12-21-2023 Service comment (Unsp spec) [Interp] <10,000 ORGANISMS/ML NORMAL URO GENITAL CORINA [facility] ABO Rh Repeaton 12-20-2023 ABO AB [facility] Rh Nom (Bld) Positive [facility] APTTon 12-20-2023 aPTT Coag (PPP) [Time] 31 s [facility] BASIC METABOLIC PANLon 12-20 Anion gap [Moles/Vol] 13 mmol/L Normal 5-15 [facility] Comment on above: Performed By: #### C BCA, PINR, 76833-5, BMP #### [facility] ([id number]) [address], [address] [place] [address] Calcium [Mass/Vol] 10.1 mg/dL Normal 8.5-10.5 [facility] Comment on above: Performed By: #### C BCA, PINR, 79842-3, BMP #### [facility] ([id number]) [address], [address] [place] [address] Chloride [Moles/Vol] 103 mmol/L Normal 98-109 [facility] Comment on above: Performed By: #### C BCA, PINR, 57629-4, BMP #### [facility] ([id number]) [address], [address] [place] [address] CO2 [Moles/Vol] 25 mmol/L Normal 22-32 [facility] Comment on above: Performed By: #### Sujey BCA, PINR, 05596-1, BMP #### [facility] ([id number]) [address], [address] [place] [address] Creatinine [Mass/Vol] 0.76 mg/dL Normal 0.60-1.30 [facility] Comment on above: Result Comment: METH OD TRACEABLE TO IDMS STANDARD Performed By: #### C BCA, PINR, 81887-9, BMP #### [facility] ([id number]) [address], [address] [place] [address] eGFR (CKD-EPI) NON-RACE DEPENDENT >90 Normal >59 [facility] Comment on above: Result Comment: Reported eGFR is based on the CKD-EPI 2020 equation that does not use a race coefficient. Performed By: #### C BUCKY LOWRY, 52887-3, BMP #### [facility] ([id number]) [address], [address] [place] [address] Glucose [Mass/Vol] 85 mg/dL Normal 65-99 [facility] Comment on above: Performed By: #### C BUCKY LOWRY, 89266-9, BMP #### [facility] ([id number]) [address], [address] [place] [address] Potassium [Moles/Vol] 5.0 mmol/L Normal 3.5-5.0 [facility] Comment on above: Result Comment: SPEC IMEN HEMOLYZED, RESULTS INCREASED MODERATELY HEMOLYZED Performed By: #### C BUCKY LOWRY, 83212-2, BMP #### [facility] ([id number]) [address], [address] [place] [address] Sodium [Moles/Vol] 141 mmol/L Normal 134-146 [facility] Comment on above: Performed By: #### C BUCKY LOWRY, 51567-7, BMP #### [facility] ([id number]) [address], [address] [place] [address] Urea nitrogen [Mass/Vol] 20 mg/dL Normal 5-27 [facility] Comment on above: Performed By: #### C MEG LOWRYR, 08251-4, BMP #### [facility] ([id number]) [address], [address] [place] [address] Basic Metabolic Panelon 12-05 Anion gap [Moles/Vol] 13 mmol/L 5 - 15 mmol/L [facility] Calcium [Mass/Vol] 10.1 mg/dL 8.5 - 10. 5 mg/dL [facility] Chloride [Moles/Vol] 103 mmol/L 98 - 109 mmol/L [facility] CO2 [Moles/Vol] 25 mmol/L 22 - 32 mmol/L [facility] Creatinine [Mass/Vol] 0.76 mg/dL 0.60 - 1.30 mg/dL [facility] Comment on above: METHOD TRACEABLE TO IDTN STANDARD eGFR (CKD-EPI)non-race dependent - PINF [facility] Comment on above: Reported eGFR is based on the CKD-EPI 2020 equation that does not use a race coefficient. Glucose [Mass/Vol] 85 mg/dL 65 - 99 mg/dL [facility] Potassium [Moles/Vol] 5.0 mmol/L 3.5 - 5.0 mmol/L [facility] Comment on above: SPECIMEN HEMOLYZED, RESULTS INCREASED MODERATELY HEMOLYZED Sodium [Moles/Vol] 141 mmol/L 134 - 146 mmol/L [facility] Urea nitrogen [Mass/Vol] 20 mg/dL 5 - 27 mg/dL [facility] CBC AND AUTO DIFFon 12-20-19 ABSOLUTE BASOPHIL 0.1 X10E9/L Normal 0.0-0.2 [facility] Comment on above: Performed By: #### C BUCKY LOWRY, 66800-1, BMP #### [facility] ([id number]) [address], [address] [place] [address] ABSOLUTE NEUTROPHIL 4.4 X10E9/L Normal 1.5-6.6 [facility] Comment on above: Performed By: #### BUCKY Rm BCA, 36966-7, BMP #### [facility] ([id number]) [address], [address] [place] [address] Basophils/100 WBC (Bld) 0.9 % Normal [facility] Comment on above: Performed By: #### MEG Rm BCAR, 38990-5, BMP #### [facility] ([id number]) [address], [address] [place] [address] Eosinophils (Bld) [#/Vol] 0.2 10*3/uL Normal 0.0-0.4 [facility] Comment on above: Performed By: #### C ALEN, PINR, 00217-0, BMP #### [facility] ([id number]) [address], [address] [place] [address] Eosinophils/100 WBC (Bld) 2.6 % Normal [facility] Comment on above: Performed By: #### C ALEN, PINR, 37671-0, BMP #### [facility] [facility] ([id number]) [address], [address] [place] [address] Erythrocyte distribution width (RBC) [Ratio] 13.6 % Normal 11.5-15.0 [facility] Comment on above: Performed By: #### C ALEN, PINR, 98071-1, BMP #### [facility] ([id number]) [address], [address] [place] [address] Hematocrit (Bld) [Volume fraction] 45.1 % Normal 39-49 [facility] Comment on above: Performed By: #### C ALEN, PINR, 40989-1, BMP #### [facility] ([id number]) [address], [facility] [address] [place] [address] Hemoglobin (Bld) [Mass/Vol] 15.5 g/dL Normal 13.0-17.0 [facility] Comment on above: Performed By: #### C ALEN, PINR, 16155-9, BMP #### [facility] ([id number]) [address], [address] [address] Lymphocytes (Bld) [#/Vol] 1.5 10*3/uL Normal 1.0-3.5 [facility] Comment on above: Performed By: #### C ALEN, PINR, 93477-0, BMP #### [facility] ([id number]) [address], [address] [place] [address] Lymphocytes/100 WBC (Bld) 21.7 % Normal [facility] Comment on above: Performed By: #### C ALEN PINR, 36353-6, BMP #### [facility] ([id number]) [address], [address] [place] [address] MCH (RBC) [Entitic mass] 30.2 pg Normal 27-34 [facility] Comment on above: Performed By: #### C ALEN, PINR, 15615-2, BMP #### [facility] ([id number]) [address], [address] [place] [address] MCHC (RBC) [Mass/Vol] 34.4 g/dL Normal 32-36 [facility] Comment on above: Performed By: #### C ALEN PINR, 37814-5, BMP #### [facility] ([id number]) [address], [address] [place] [address] MCV (RBC) [Entitic vol] 88 fL Normal 80-100 [facility] Comment on above: Performed By: #### C ALEN, PINR, 63886-8, BMP #### [facility] ([id number]) [address], [address] [place] [address] Monocytes (Bld) [#/Vol] 1.0 10*3/uL High 0-0.9 [facility] Comment on above: Performed By: #### C ALEN PINR, 61918-7, BMP #### [facility] ([id number]) [address], [address] [place] [address] Monocytes/100 WBC (Bld) 13.6 % Normal [facility] Comment on above: Performed By: #### C ALEN, PINR, 05736-8, BMP #### [facility] ([id number]) [address], [address] [place] [address] Neutrophils/100 WBC (Bld) 61.2 % Normal [facility] Comment on above: Performed By: #### Sujey LOWRY, PINR, 77543-3, BMP #### [facility] ([id number]) [address], [facility] [address] [place] [address] Platelet mean volume (Bld) [Entitic vol] 7.8 fL Normal 7-12 [facility] Comment on above: Performed By: #### Sujey LOWRY, PINR, 88153-3, BMP #### [facility] ([id number]) [address], [address] [address] Platelets (Bld) [#/Vol] 269 10*3/uL Normal 150-450 [facility] Comment on above: Performed By: #### Sujey LOWRY, PINR, 70202-3, BMP #### [facility] ([id number]) [address], [address] [address] RBC COUNT 5.12 X10E12/L Normal 4.10-5.70 [facility] Comment on above: Performed By: #### Sujey LOWRY, PINR, 24427-8, BMP #### [facility] ([id number]) [address], [address] [address] WBC (Bld) [#/Vol] 7.1 10*3/uL Normal 4.0-11.0 [facility] Comment on above: Performed By: #### Sujey LOWRY, PINR, 96931-4, BMP #### [facility] ([id number]) [address], [address] [address] CBC auto differentialon 12-05 Basophils (Bld) [#/Vol] 0.1 10*3/uL [facility] Basophils/100 WBC (Bld) 0.9 % [facility] Eosinophils (Bld) [#/Vol] 0.2 10*3/uL [facility] Eosinophils/100 WBC (Bld) 2.6 % [facility] Erythrocyte distribution width (RBC) [Ratio] 13.6 % 11.5 - 15.0 % [facility] Hematocrit (Bld) [Volume fraction] 45.1 % 39 - 49 % [facility] Hemoglobin (Bld) [Mass/Vol] 15.5 g/dL 13.0 - 17.0 g/dL [facility] Interpretation and review of laboratory results Abnormal [facility] Lymphocytes (Bld) [#/Vol] 1.5 10*3/uL [facility] Lymphocytes/100 WBC (Bld) 21.7 % [facility] MCH (RBC) [Entitic mass] 30.2 pg 27 - 34 pg [facility] MCHC (RBC) [Mass/Vol] 34.4 g/dL 32 - 36 g/dL [facility] MCV (RBC) [Entitic vol] 88 fL 80 - 100 fL [facility] Monocytes (Bld) [#/Vol] 1.0 10*3/uL High [facility] Monocytes/100 WBC (Bld) 13.6 % [facility] Neutrophils (Bld) [#/Vol] 4.4 10*3/uL [facility] Neutrophils/100 WBC (Bld) 61.2 % [facility] Platelet mean volume (Bld) [Entitic vol] 7.8 fL 7 - 12 fL [facility] Platelets (Bld) [#/Vol] 269 10*3/uL [facility] RBC (Bld) [#/Vol] 5.12 10*6/uL [facility] WBC corrected for nucl RBC Auto (Bld) [#/Vol] 7.1 [facility] No Panel Informationon 12-20 [facility] PROTIME AND INRon 12-20-2023 INR Coag (PPP) [Relative time] 1.0 {INR} Normal 0.8-1.1 [facility] Comment on above: Performed By: #### C ALEN, PINR, 12554-9, BMP #### [facility] ([id number]) [address], [address] [place] [address] PT Coag (PPP) [Time] 11.3 s Normal 9.8-13.2 [facility] Comment on above: Performed By: #### C BCA, PINR, 46380-6, BMP #### [facility] ([id number]) [address] [place] [address] Protime & INRon 12-20-2023 INR Coag (PPP) [Relative time] 1.0 {INR} [facility] PT Coag (PPP) [Time] 11.3 s [facility] Type and screenon 12-20-2023 ABO AB [facility] Rh Nom (Bld) Positive [facility] URINALYSISon 12-20-2023 Bilirubin Ql (U) Negative Normal NEG [facility] BLOOD/HGB Negative Normal NEG [facility] Color (U) YELLOW Normal YELLOW [facility] Glucose Ql (U) Negative Normal NEG [facility] Ketones Ql (U) Negative Normal NEG [facility] Leukocyte esterase Test strip Ql (U) Negative Normal NEG [facility] MUCOUS PRESENT Abnormal NONE [facility] Nitrite Ql (U) Negative Normal NEG [facility] pH (U) 6.0 [pH] Normal 5.0-8.5 [facility] Protein Ql (U) Trace Abnormal NEG [facility] R.B.CELLS 2 /hpf Normal 0-5 [facility] Specific gravity (U) [Rel density] 1.026 Normal 1.003-1.035 [facility] TURBIDITY CLEAR Normal CLEAR [facility] Urobilinogen (U) [Mass/Vol] mg/dL Normal <1.1 [facility] W.B.CELLS 2 /hpf Normal 0-5 [facility] URINE CULTUREon 12-20-2023 Bacteria identified Cx Nom (U) CULTURE RESULTS <10,000 ORGANISMS/ML NORMAL URO GENITAL CORINA Normal [facility] Comment on above: Performed By: #### 6 30-4 #### [facility] ([id number]) [address] [place] [address] Urinalysison 12-20-2023 Bilirubin Ql (U) Negative Negative^Ne ga tive [facility] Color (U) YELLOW YELLOW^YELLOW [facility] Glucose (U) [Mass/Vol] Negative Negative^Nega tive mg/dL [facility] Hemoglobin Auto test strip Ql (U) Negative Negative^Nega tive [facility] Interpretation and review of laboratory results Abnormal [facility] Ketones (U) [Mass/Vol] Negative Negative^Nega tive mg/dL [facility] Leukocyte esterase Auto test strip Ql (U) Negative Negative^Nega tive [facility] Mucus Ql (Urine sed) PRESENT Abnormal NONE^NONE [facility] Nitrite Auto test strip Ql (U) Negative Negative^Nega tive [facility] pH (U) 6.0 [pH] 5.0 - 8.5 [facility] Protein (U) [Mass/Vol] Trace Abnormal Negative^Nega tive mg/dL [facility] RBC Auto (Urine sed) [#/Area] 2 [facility] Specific gravity Refractometry automated (U) [Rel density] 1.026 1.003 - 1.035 [facility] Turbidity Ql (U) CLEAR CLEAR^CLEAR [facility] Urobilinogen Qn (U) NINF [facility] WBC Auto (Urine sed) [#/Area] 2 [facility] aPTT Coag (PPP) [Time]on aPTT Coag (Bld) [Time] 31 s Normal 26-37 [facility] Comment on above: Performed By: #### C BCA, PINR, 04753-8, BMP #### [facility] ([id number]) [address], [address] [place] [address] XR SPINE LUMB BENDING ONLY 2 -3 [...] Morrell MD on 11/16/2023 8:[address] [facility] MR LUMBAR SPINE WO CONTon MR [...] Shaggy Ortega MD on 11/01/2023 10:24 AM [facility] XR shoulder RT min 2V*on XR shoulder RT min 2V* [facility] [address] [place] [address] XRay Report Signed Patient: Regan Green MR#: [id number] [birth year] : 1950 Acct:[id number] Age/Sex: 73 / M ADM Date: 06/24/23 Loc: [facility] Room: Type: [facility] Attending Dr: Charity Barkley MD Copies to: [...] Artie Goldsmith M.D.06/24/2023 12:37 PM Dictation Location: [place] [address] Transcribed By: [facility] 06/24/23 1237 Dictated By: Artie Goldsmith DO 06/24/23 1236 Signed By: 06/24/23 1237 [facility] XR hand LT min 3V*on 023 XR hand LT min 3V* [facility] [address] [place] [address] XRay Report Signed Patient: Regan Green MR#: [id number] [birth year] : 1950 Acct:[id number] Age/Sex: 73 / M ADM Date: 05/21/23 Loc: [facility] Room: Type: [facility] Attending Dr: Charity Barkley MD Copies to: [...] Vigil Jr., DLeonidesOLeonides05/21/2023 1:53 PM Dictation Location: [place] [address] Transcribed By: [facility] 05/21/23 1353 Dictated By: Regan Vigil Jr, DO 05/21/23 1352 Signed By: 05/21/23 1353 [facility] Covid-19 PCR (CVDTBH)on SARS-CoV-2 (COVID-19) RNA YASMIN+probe Ql (Unsp spec) Not detected Normal NOT DETECTED [facility] Comment on above: Result Comment: This test is not yet approved or cleared by the [place] FDA. When there are no FDA-approved or cleared tests available, and other criteria are met, FDA can make tests available under an emergency access mechanism called an Emergency Use Authorization (EUA). The EUA for this test is supported by the [place] of Health and Human Service's (HHS's) declaration [...] Performed By: #### [facility] #### [facility] [address] [place] [address] Dr. Keely Fitzgerald MRI Shoulder w/o Lefton [...] by Boogie Modi on 02/23/2022 1229 Normal [facility] Specialist CNPNon 04-28-2021 CNPN Telephone (UROLMN) LOANREGAN ([id number]) 1950 M Date Time Provider Department 04/28/21 [...] Status:Closed by BLAIRE BUENO on 04/28/21 Normal [facility] PELVIS 1 OR 2 [facility] 04-16-20 18 PELVIS 1 OR 2 [facility] [address] [place] [address] ========Patient Name: REGAN GREEN : 2Sex: MAge: Race: WhiteMRN: [id number]. Location: 84Patient Status: OVisit #: [id number] Date: 04/16/2018 9:20:00 AMCompleted Date: 04/16/2018 09:18 AMRequesting Provider: BILLY KILLIAN Attending Provider: BILLY KILLIAN Report Copy To: Signs & Symptoms: M46.1 Sacroiliitis, not elsewhere classified [id number]: AthenaComments: , , , Ordering Provider - BILLY KILLIAN MD , Exam: PELVIS 1 OR 2 VWSAccession #: [id number] PELVIS 1 OR 2 VWS 04/16/2018 9:18 [...] LE @ 04/16/2018 10:35 AM Normal [facility] Comment on above: Order Comment: , , = ========= , Ordering Provider - BILLY KILLIAN MD , Vital Signs Date Time Vital Sign Value Performing Clinician Facility 12-27-2023 11:46-0500 Body temperature 98.29 [degF] Mayco Nolen MD Work Phone: [facility] 12-27-2023 11:46-0500 Diastolic blood pressure 77 mm[Hg] Mayco Nolen MD Work Phone: [facility] 12-27-2023 11:46-0500 Heart rate 84 /min Mayco Nolen MD Work Phone: [facility] 12-27-2023 11:46-0500 Respiratory rate 14 /min Mayco Nolen MD Work Phone: [facility] 12-27-2023 11:46-0500 Systolic blood pressure 127 mm[Hg] Mayco Nolen MD Work Phone: [facility] 12-27-2023 04:23-0500 SaO2% (BldA) [Mass fraction] 94 % Mayco Nolen MD Work Phone: [facility] 12-25-2023 22:54-0500 Body mass index (BMI) [Ratio] 28.76 kg/m2 Mayco Nolen MD Work Phone: [facility] 12-25-2023 22:54-0500 Body weight 96.2 kg Mayco Nolen MD Work Phone: [facility] 12-25-2023 13:27-0500 Body height 182.9 cm Mayco Nolen MD Work Phone: [facility] 12-20-2023 14:20-0500 Body height 182.9 cm [facility] 12-20-2023 14:20-0500 Body mass index (BMI) [Ratio] 29.39 kg/m2 [facility] 12-20-2023 14:20-0500 Body temperature 97.7 [degF] [facility] 12-20-2023 14:20-0500 Body weight 98.3 kg [facility] 12-20-2023 14:20-0500 Diastolic blood pressure 84 mm[Hg] [facility] [address] [place] [address] 12-20-2023 14:20-0500 Heart rate 77 /min [facility] 12-20-2023 14:20-0500 Respiratory rate 18 /min [facility] 12-20-2023 14:20-0500 SaO2% (BldA) [Mass fraction] 97 % [facility] 12-20-2023 14:20-0500 Systolic blood pressure 132 mm[Hg] [facility] [address] [place] [address] 11-14-2023 09:59-0500 Body height 180.3 cm Carlajith Sosa DRUM ATTENDANT-MARINE TECHNICIAN Work Phone: [facility] 11-14-2023 09:59-0500 Body mass index (BMI) [Ratio] 29.57 kg/m2 Carl Sosa DRUM ATTENDANT-MARINE TECHNICIAN Work Phone: [facility] 11-14-2023 09:59-0500 Body weight 96.16 kg Carl Sosa DRUM ATTENDANT-MARINE TECHNICIAN Work Phone: [facility] 11-14-2023 09:59-0500 Diastolic blood pressure 86 mm[Hg] Carl Sosa DRUM ATTENDANT-MARINE TECHNICIAN Work Phone: [facility] 11-14-2023 09:59-0500 Heart rate 81 /min Carl Sosa DRUM ATTENDANT-MARINE TECHNICIAN Work Phone: [facility] 11-14-2023 09:59-0500 Systolic blood pressure 135 mm[Hg] Carl Sosa DRUM ATTENDANT-MARINE TECHNICIAN Work Phone: [facility] 05-21-2023 10:00-0400 Body height 182.88 cm Charity Barkley Other [employer] Other 05-21-2023 10:00-0400 Body mass index (BMI) [Ratio] 30.51 kg/m2 Charity Barkley Other [employer] Other 05-21-2023 10:00-0400 Body weight 102.06 kg Charity Barkley Other [employer] Other Encounters Encounter Date Encounter Type Care Provider Facility Start: 04-28-2024 End: 04-28-2024 ambulatory [facility] Leigha [facility] Start: 04-27-2024 End: 05-04-2024 ambulatory [facility] Start: 04-23-2024 End: 04-23-2024 ambulatory [facility] Start: 04-23-2024 End: 04-23-2024 ambulatory [facility] Start: 04-21-2024 End: 04-21-2024 ambulatory [facility] Start: 04-06-2024 End: 05-04-2024 ambulatory [facility] Start: 03-04-2024 End: 04-04-2024 [facility] Start: 02-14-2024 End: 03-04-2024 ambulatory [facility] Start: 02-12-2024 End: 02-12-2024 ambulatory [facility] Start: 01-29-2024 End: 01-29-2024 ambulatory [facility] Work Phone: Start: 01-29-2024 End: 01-29-2024 Patient encounter procedure [facility] Work Phone: Start: 12-28-2023 End: 12-28-2023 ambulatory [facility] M [facility] Start: 12-25-2023 End: 12-28-2023 ambulatory [facility] Start: 12-25-2023 End: 12-27-2023 ambulatory [facility] Start: 12-25-2023 End: 12-27-2023 Subsequent hospital visit by physician Mayco Nolen MD Work Phone: [facility] Comment on above: Radiculopathy, lumba r region; Neurogenic claudication Start: 12-24-2023 Telephone encounter [facility] Comment on above: surgery Start: 12-20-2023 Telephone encounter [facility] Start: 12-20-2023 End: 12-20-2023 Patient encounter procedure [facility] Comment on above: Radiculopathy, lumba r region; Neurogenic claudication; Monitoring for anticoagulant use; Abnormal urine findings Start: 12-20-2023 End: 12-20-2023 ambulatory [facility] Start: 12-18-2023 Documentation procedure Jasmin Noriega DRUM ATTENDANT-MARINE TECHNICIAN Work Phone: [facility] Start: 12-10-2023 Telephone encounter [facility] Comment on above: surgery Start: 12-05-2023 End: 01-03-2024 ambulatory [facility] Start: 11-27-2023 Telephone encounter [facility] Start: 11-22-2023 End: 12-05-2023 ambulatory [facility] Start: 11-18-2023 End: 11-19-2023 ambulatory Rosales Corona MD Facility:[facility] Start: 11-14-2023 End: 11-14-2023 ambulatory [facility] Start: 11-14-2023 End: 11-14-2023 Office outpatient new 45 minutes Carl Sosa DRUM ATTENDANT-MARINE TECHNICIAN Work Phone: [facility] Comment on above: Neurogenic claudicat ion (Primary Dx); Lumbar radiculopathy, chronic Start: 11-14-2023 End: 11-14-2023 ambulatory [facility] Start: 11-05-2023 Telephone encounter Dolores Rm MA [facility] Comment on above: Er Follow-up Lumbar radiculopathy , chronic (Primary Dx) Start: 11-01-2023 End: 11-01-2023 ambulatory [facility] Start: 10-31-2023 End: 10-31-2023 Emergency department patient visit [facility] Start: 10-30-2023 End: 10-30-2023 ambulatory Charity Barkley Other [employer] Other Start: 10-30-2023 Office outpatient vi sit 15 minutes Charity Calvey [facility] Start: 10-22-2023 End: 10-23-2023 Emergency department patient visit MAEVE [facility] Start: 08-20-2023 End: 08-20-2023 ambulatory Charity Deshawney Other [employer] Other Start: 08-20-2023 Office outpatient vi sit 15 minutes Charity Calvey [facility] Start: 07-23-2023 End: 07-23-2023 ambulatory Charity Calvey Other [employer] Other Start: 07-23-2023 Office outpatient vi sit 15 minutes Charity Calvey [facility] Start: 06-24-2023 Office outpatient vi sit 15 minutes Charity Calvey [facility] Start: 06-24-2023 End: 06-24-2023 ambulatory NON STAFF Facility[facility] Start: 06-24-2023 End: 06-24-2023 ambulatory NON STAFF [facility] Work Phone: Start: 06-24-2023 End: 06-24-2023 Patient encounter procedure MD Charity Barkley Work Phone: [facility] Start: 05-21-2023 Office outpatient ne w 30 minutes Charity ELY [facility] Start: 05-21-2023 End: 05-21-2023 [facility] Work Phone: Start: 05-21-2023 End: 05-21-2023 Patient encounter procedure MD Charity Barkley Work Phone: [facility] Start: 03-19-2023 End: 03-20-2023 ambulatory NARENDRANATH LAKSHMIPATHY . Facility:[facility] Start: 02-21-2023 End: 02-22-2023 ambulatory NARENDRANATH LAKSHMIPATHY . Facility:[facility] Start: 12-18-2022 End: 12-19-[address] ROMERO SOSA . Facility:[facility] Start: 11-22-2022 End: 11-23-[address] ROMERO SOSA . Facility:[facility] Start: 10-11-2022 Encounter for preprocedural laboratory examination DR ROMERO SOSA . [facility] Start: 10-09-2022 End: 10-09-[address] ROMERO SOSA . Facility:[facility] Start: 10-05-2022 End: 10-06-[address] ROMERO SOSA . Facility:[facility] Start: 10-05-2022 End: 10-06-2022 Encounter for preprocedural laboratory examination DR ROMERO SOSA . Facility:[facility] Start: 10-01-2022 Encounter for preprocedural cardiovascular examination ISELA SALMERON . [facility] Start: 09-26-2022 End: 09-27-2022 ambulatory ISELA [...] Start: 04-16-2018 End: 04-17-2018 Ambulatory BILLY KILLIAN Facility:[facility] Start: 01-28-2018 End: 01-29-2018 Ambulatory DEFAULT PHYSICIAN Facility:[facility] Procedures Date Procedure Procedure Detail Performing Clinician Start: 04-23-2024 Follow-up visit Follow-up MAYCO NOLEN Start: 12-27-2023 Ecg routine ecg w/le ast 12 lds trcg only w/o i&r Christina Varma DRUM ATTENDANT-MARINE TECHNICIAN Work Phone: Start: 12-27-2023 End: 12-27-2023 Basic metabolic panel calcium total Christina Varma DRUM ATTENDANT-MARINE TECHNICIAN Work Phone: Start: 12-26-2023 Basic metabolic pane l calcium total Christina Varma DRUM ATTENDANT-MARINE TECHNICIAN Work Phone: Start: 12-25-2023 Fluor needle/cath spine/paraspinal [...] Adult BMI Screening Adult BMI Screen ing [facility] Start: 12-25-2024 Tobacco Screening Tobacco Screening [facility] Start: 12-20-2024 Adult BMI Screening Adult BMI Screen ing [facility] Start: 12-20-2024 Tobacco Screening Tobacco Screening [facility] Start: 11-14-2024 Adult BMI Screening Adult BMI Screen ing [facility] Start: 11-14-2024 Tobacco Screening Tobacco Screening [facility] Start: 10-31-2024 Tobacco Screening Tobacco Screening [facility] Start: 10-23-2024 Fall Risk Screening Fall Risk Screen ing [facility] Start: 10-22-2024 Adult BMI Screening Adult BMI Screen ing [facility] Start: 08-11-2024 End: 08-11-2024 Patient encounter procedure 08/11/2024 9:00 AM EDT Office Visit [facility] [address] [place] [id number] Sumanth Hill MD [address] [place] [address] [facility] Start: 07-30-2024 End: 07-30-2024 Patient encounter procedure 07/30/2024 8:30 AM EDT Office Visit [facility] [address] [place] [address] Sumanth Hill MD [address] [place] [place], [place] [id number] [facility] Start: 09-25-2024 Depression Screening Depression Scre ening [facility] Start: 07-29-2024 Medicare Annual Well ness Visit Medicare Annual Wellness Visit [facility] Start: 04-21-2024 End: 04-21-2024 Patient encounter procedure 04/21/2024 1:45 PM EDT Office Visit [facility] [address] [place] [address] [address] [facility] [place] [address] Minh Heller MD [address] [place] [address] [facility] Start: 02-13-2024 End: 02-13-2024 Patient encounter procedure 02/13/2024 1:50 PM EDT Office Visit [facility] [address] [place] [phone] Mayco Nolen MD [address] [place] [phone] [facility] Start: 12-25-2023 End: 12-25-2023 Admission to same day surgery center 12/25/2023 2:45 PM EST - 12/25/2023 4:45 PM EST Surgery [address] [phone] Mayco Nolen MD [address] [place] [phone] LAMINECTOMY LUMBAR MULTI LEVEL / L2-L5 [facility] Surgery Comment on above: LAMINECTOMY LUMBAR M ULTI LEVEL / L2-L5 Start: 12-25-2023 End: 12-25-2023 LAMINECTOMY LUMBAR MULTI LEVEL [facility] Start: 12-25-2023 Subsequent hospital visit by physician 12/25/2023 2:45 PM EST Hospital Encounter [facility] Surgery [address] [place] [phone] Mayco Nolen MD [address] [place] [address] [address] [place] [phone] [facility] Start: 12-06-2023 End: 12-06-2023 Patient encounter procedure 12/06/2023 7:00 AM EST Appointment [facility] [address] [place] [address] [facility] Start: 11-14-2023 End: 11-14-2024 XR Lumbar spine Views AP W right bending and W left bending [place] Work Phone: Comment on above: Expected: 11/14/2023 , Expires: 11/14/2024 Start: 07-05-2023 COVID-19 Vaccine ( season) COVID-19 Vaccine ( season) [facility] Start: 07-24-2013 Administration of varicella zoster vaccine Zoster (Shingles) Vaccine (1 of 2) [facility] Start: 1971 DTaP,Tdap and Td Vaccines (1 - Tdap) DTaP,Tdap and Td Vaccines (1 - Tdap) [facility] Start: 1970 Adult BMI Follow Up Plan Adult BMI Follow Up Plan [facility] Immunizations Immunization Date Immunization Notes Care Provider Fa cility 08-20-2022 Influenza, High-dose , Quadrivalent [facility] 04-26-2022 influenza, injectabl e, quadrivalent, preservative free Dolores [facility] 09-18-2021 influenza, injectabl e, quadrivalent, preservative free [facility] 07-20-2020 Influenza, High-dose , Quadrivalent [facility] 08-11-2019 influenza, high dose seasonal, preservative-free [facility] 08-11-2019 pneumococcal polysaccharide vaccine, 23 valent Dolores [facility] 07-31-2018 influenza, injectabl e, quadrivalent, preservative free Dolores [facility] 11-20-2017 influenza, seasonal, injectable, preservative free Dolores [facility] 11-20-2017 pneumococcal conjuga te vaccine, 13 valent Dolores [facility] 08-19-2013 pneumococcal polysaccharide vaccine, 23 valent Dolores [facility] 05-29-2013 zoster vaccine, live Dolores [facility] 05-29-2013 zoster vaccine, unspecified formulation Dolores [facility] 08-18-2012 influenza virus vacc ine, whole virus Dolores [facility] 08-13-2012 pneumococcal polysaccharide vaccine, 23 valent Dolores [facility] 08-13-2012 zoster vaccine, live Dolores [facility] 09-03-2011 influenza virus vacc ine, whole virus Dolores [facility] 09-11-2010 influenza virus vacc ine, whole virus Dolores [facility] 08-22-2009 influenza virus vacc ine, whole virus Dolores [facility] Payers Date Payer Category Payer Self-pay [id number] 2023 Unknown [id number] 2019 Unknown 2017 Medicare [id number] 1959 Medicare [id number] 1959 Unknown [id number] 1959 Unknown [id number] 1952 Unknown [id number] 2..840.1.254958.3.579.2.593 1952 Unknown [id number] 2..840.1.467274.3.579.2.593 1952 Unknown [id number] 2..840.1.870583.3.579.2.593 1952 Unknown [id number] 2.16.840.1.929151.3.579.2.593 1952 Unknown [id number] 2.16.840.1.782059.3.579.2.593 1952 Unknown [id number] 2.16.840.1.473203.3.579.2.593 1952 Unknown [id number] 2.16.840.1.551177.3.579.2.593 1952 Unknown [id number] 2.16.840.1.740527.3.579.2.593 1952 Unknown [id number] 2.16.840.1.592353.3.579.2.593 1952 Unknown [id number] 2.16.840.1.433636.3.579.2.593 1952 Unknown [id number] 2.16.840.1.290648.3.579.2.593 1952 Unknown [id number] 2.16.840.1.279737.3.579.2.196 1952 Unknown [id number] 2.16.840.1.400963.3.579.2.1286 1952 Unknown [id number] 2.16.840.1.120996.3.579.2.128 1952 Unknown [id number] 2.16.840.1.388433.3.579.2.128 1952 Unknown [id number] 2.16.840.1.100128.3.579.2.128 1952 Unknown [id number] 2.16.840.1.335021.3.579.2.128 1952 Unknown [id number] 2.16.840.1.667532.3.579.2.128 1952 Unknown [id number] 2.16.840.1.605667.3.579.2.1285 1952 Unknown [id number] 2.16.840.1.673643.3.579.2.1285 1952 Unknown [id number] 2.16.840.1.273696.3.579.2.1285 1952 Unknown [id number] 2.16.840.1.618070.3.579.2.1285 1952 Unknown [id number] 2.16.840.1.859734.3.579.2.1285 1952 Unknown [id number] 2.840.1.129570.3.579.2.1285 1952 Unknown [id number] 2.16.840.1.144706.3.579.2.1285 1952 Unknown [id number] 2.840.1.844133.3.579.2.1285 1952 Unknown [id number] 2.840.1.448747.3.579.2.1285 1952 Unknown [id number] 2.840.1.252579.3.579.2.1285 1952 Unknown [id number] 2.840.1.907770.3.579.2.1285 1952 Unknown [id number] 2.840.1.391692.3.579.2.1285 1952 Unknown [id number] 2.16.840.1.594245.3.579.2.1285 1952 Unknown [id number] 2.16840.1.625563.3.579.2.1285 1952 Unknown [id number] 2.16.840.1.091686.3.579.2.1285 1952 Unknown [id number] 2.16.840.1.577850.3.579.2.[facility]6 1950 Unknown [id number] 2.16.840.1.751189.3.579.2.1286 1952 Unknown [id number] 2.16.840.1.264510.3.579.2.1286 Unknown [facility] [id number] Unknown [id number] 2.16.840.1.227461.3.579.2.531 Unknown [id number] 2.16.840.1.906623.3.579.2.531 Worker's Compensation [id number] Social History Date Type Detail Facility Unknown if ever smoked [facility] Work Phone: Start: 12-01-2019 End: 12-15-2020 [facility] [employer] Other Start: 1950 Sex Assigned At Male [facility] Start: 01-17-2023 End: 12-20-2023 Tobacco smoking status COIS Ex-smoker [facility] History of tobacco use Current smoker [facility] History of tobacco use Cigarette Smoker [facility] Start: 01-17-2023 End: 12-20-2023 Tobacco use and exposure Smokeless tobacco non-user [facility] Start: 10-31-2023 End: 12-26-2023 Alcohol intake Current drinker of alcohol (finding) [facility] Start: 12-01-2019 End: 12-15-2020 History of Social function [facility] Frequency of Alcohol Consumption 4 or more times a week [facility] Start: 01-17-2023 Alcohol Comment socially [facility] Start: 1950 Sex Assigned At Not on file [facility] Start: 11-07-2018 Tobacco smoking stat us COIS Never smoked tobacco (finding) [facility] Medical Equipment Procedure Code Equipment Code Equipment Origin al Text Equipment Identifier Dates Patch Dura 1x1in Drmtrx-[place] + Clgn Rgnrt Membr Strl Rpl [id number] - [id number] Start: 12-25-2023 Goals Date Patient Goal [...] Michaelle Zeng RN - 12/27/2023 12:59 PM JOSEMANUEL Barone - 12/27/2023 12:28 PM EST Note Date & Type Note Facility 12-27-2023 Nurse Note Discharge instructions provided to patient. Patient verbalized understanding, and denies any further concerns at this time. IV removed at time of discharged. Patient gathered belongings from room. Patient in no apparent distress. Patient taken to entrance b in a wheelchair with . [facility] 12-27-2023 Nurse Note Discharge instructions provided to patient. Patient verbalized understanding, and denies any further concerns at this time. IV removed at time of discharged. Patient gathered belongings from room. Patient in no apparent distress. Patient taken to entrance b in a wheelchair with . documented in this encounter [facility] 12-27-2023 Plan of care note Problem: Pain Goal: Patient goal is pain score less than 4, able to rest, and participant in treatment plan as appropriate Description: INTERVENTIONS: 1. Encourage patient or legal new accounts representative to report early pain and ask [...] per policy 9. Teach patient or legal new accounts representative interventions for comforting 12/27/2023 1259 by [...] at the bedside 7. Instruct patient/ patient new accounts representative about use of safety devices 8. Include patient/ patient new accounts representative in decisions related to safety 12/27/2023 [...] hygiene technique 7. Identify and instruct patient/patient new accounts representative in use of appropriate isolation precautions for identified infection/symptoms 8. Provide and discuss with patient/patient new accounts representative on educational MDRO sheet 9. Encourage and monitor nutritional status daily and consult coding auditor if indicated 10. Implement neutropenic guidelines as [...] care ongoing. Problem: Knowledge Deficit Goal: Patient/patient new accounts representative demonstrates understanding of disease process, treatment [...] be free from fall Description: Interventions: 1. [place] to environment 2. Hourly rounds addressing the [...] non-skid footwear 11. Teach patient and patient new accounts representative to maintain environment for safety and [...] (cane, walker) within reach 19. Request patient new accounts representative bring adaptive equipment/mobility aids from home or obtain and provide as needed 20. Consult pharmacy regarding effects of med's affecting mobility, cognition, and alternatives 21. Obtain physician order for PT if risk factors associated with mobility are present 22. Obtain physician order for OT as appropriate 23. Utilize diversional activities 24. Educate patient and patient new accounts representative how to maintain a safe environment during visitation times (notify nurse prior to leaving bedside) 25. Consider appropriateness of medical or non-medical assistant internal medicine 26. Set up voiding schedule as appropriate [...] progress towards goal: Plan of care ongoing. [facility] [employer] 12-27-2023 Miscellaneous Notes Problem: Pain Goal: Patient goal is pain score less than 4, able to rest, and participant in treatment plan as appropriate Description: INTERVENTIONS: 1. Encourage patient or legal new accounts representative to report early pain and ask [...] per policy 9. Teach patient or legal new accounts representative interventions for comforting 12/27/2023 1259 by [...] at the bedside 7. Instruct patient/ patient new accounts representative about use of safety devices 8. Include patient/ patient new accounts representative in decisions related to safety 12/27/2023 [...] hygiene technique 7. Identify and instruct patient/patient new accounts representative in use of appropriate isolation precautions for identified infection/symptoms 8. Provide and discuss with patient/patient new accounts representative on educational MDRO sheet 9. Encourage and monitor nutritional status daily and consult coding auditor if indicated 10. Implement neutropenic guidelines as [...] care ongoing. Problem: Knowledge Deficit Goal: Patient/patient new accounts representative demonstrates understanding of disease process, treatment [...] Score of =/> 25 or indicated by [facility] Assessment Goal: Patient should be free from fall Description: Interventions: 1. [place] to environment 2. Hourly rounds addressing the [...] non-skid footwear 11. Teach patient and patient new accounts representative to maintain environment for safety and [...] (cane, walker) within reach 19. Request patient new accounts representative bring adaptive equipment/mobility aids from home or obtain and provide as needed 20. Consult pharmacy regarding effects of med's affecting mobility, cognition, and alternatives 21. Obtain physician order for PT if risk factors associated with mobility are present 22. Obtain physician order for OT as appropriate 23. Utilize diversional activities 24. Educate patient and patient new accounts representative how to maintain a safe environment during visitation times (notify nurse prior to leaving bedside) 25. Consider appropriateness of medical or non-medical assistant internal medicine 26. Set up voiding schedule as appropriate [...] Description: INTERVENTIONS: 1. Encourage patient or legal new accounts representative to report early pain and ask [...] per policy 9. Teach patient or legal new accounts representative interventions for comforting Outcome: Progressing Note: [...] at the bedside 7. Instruct patient/ patient new accounts representative about use of safety devices 8. Include patient/ patient new accounts representative in decisions related to safety Outcome: [...] hygiene technique 7. Identify and instruct patient/patient new accounts representative in use of appropriate isolation precautions for identified infection/symptoms 8. Provide and discuss with patient/patient new accounts representative on educational MDRO sheet 9. Encourage and monitor nutritional status daily and consult coding auditor if indicated 10. Implement neutropenic guidelines as needed 11. Review exposure to history of communicable disease and recent travel history on admission 12. Encourage annual influenza vaccine 13. Encourage pneumonia vaccine Outcome: Progressing Note: Evaluation of progress towards goal: Patient denies fever. No purulent drainage noted at site. Plan of care ongoing. Problem: Knowledge Deficit Goal: Patient/patient new accounts representative demonstrates understanding of disease process, treatment [...] Score of =/> 25 or indicated by [facility] Assessment Goal: Patient should be free from fall Description: Interventions: 1. [place] to environment 2. Hourly rounds addressing the [...] non-skid footwear 11. Teach patient and patient new accounts representative to maintain environment for safety and [...] (cane, walker) within reach 19. Request patient new accounts representative bring adaptive equipment/mobility aids from home or obtain and provide as needed 20. Consult pharmacy regarding effects of med's affecting mobility, cognition, and alternatives 21. Obtain physician order for PT if risk factors associated with mobility are present 22. Obtain physician order for OT as appropriate 23. Utilize diversional activities 24. Educate patient and patient new accounts representative how to maintain a safe environment during visitation times (notify nurse prior to leaving bedside) 25. Consider appropriateness of medical or non-medical assistant internal medicine 26. Set up voiding schedule as appropriate [...] Description: INTERVENTIONS: 1. Encourage patient or legal new accounts representative to report early pain and ask [...] per policy 9. Teach patient or legal new accounts representative interventions for comforting Outcome: Progressing Note: [...] at the bedside 7. Instruct patient/ patient new accounts representative about use of safety devices 8. Include patient/ patient new accounts representative in decisions related to safety Outcome: [...] hygiene technique 7. Identify and instruct patient/patient new accounts representative in use of appropriate isolation precautions for identified infection/symptoms 8. Provide and discuss with patient/patient new accounts representative on educational MDRO sheet 9. Encourage and monitor nutritional status daily and consult coding auditor if indicated 10. Implement neutropenic guidelines as needed 11. Review exposure to history of communicable disease and recent travel history on admission 12. Encourage annual influenza vaccine 13. Encourage pneumonia vaccine Outcome: Progressing Note: Evaluation of progress towards goal: patient free from s/s of infection Problem: Knowledge Deficit Goal: Patient/patient new accounts representative demonstrates understanding of disease process, treatment [...] Score of =/> 25 or indicated by [facility] Assessment Goal: Patient should be free from fall Description: Interventions: 1. [place] to environment 2. Hourly rounds addressing the [...] non-skid footwear 11. Teach patient and patient new accounts representative to maintain environment for safety and [...] (cane, walker) within reach 19. Request patient new accounts representative bring adaptive equipment/mobility aids from home or obtain and provide as needed 20. Consult pharmacy regarding effects of med's affecting mobility, cognition, and alternatives 21. Obtain physician order for PT if risk factors associated with mobility are present 22. Obtain physician order for OT as appropriate 23. Utilize diversional activities 24. Educate patient and patient new accounts representative how to maintain a safe environment during visitation times (notify nurse prior to leaving bedside) 25. Consider appropriateness of medical or non-medical assistant internal medicine 26. Set up voiding schedule as appropriate [...] Description: INTERVENTIONS: 1. Encourage patient or legal new accounts representative to report early pain and ask [...] per policy 9. Teach patient or legal new accounts representative interventions for comforting Outcome: Progressing Note: [...] at the bedside 7. Instruct patient/ patient new accounts representative about use of safety devices 8. Include patient/ patient new accounts representative in decisions related to safety Outcome: [...] hygiene technique 7. Identify and instruct patient/patient new accounts representative in use of appropriate isolation precautions for identified infection/symptoms 8. Provide and discuss with patient/patient new accounts representative on educational MDRO sheet 9. Encourage and monitor nutritional status daily and consult coding auditor if indicated 10. Implement neutropenic guidelines as needed 11. Review exposure to history of communicable disease and recent travel history on admission 12. Encourage annual influenza vaccine 13. Encourage pneumonia vaccine Outcome: Progressing Note: Evaluation of progress towards goal: Patient is being monitored for s/sx of infection. Problem: Knowledge Deficit Goal: Patient/patient new accounts representative demonstrates understanding of disease process, treatment [...] be free from fall Description: Interventions: 1. [place] to environment 2. Hourly rounds addressing the [...] non-skid footwear 11. Teach patient and patient new accounts representative to maintain environment for safety and [...] (cane, walker) within reach 19. Request patient new accounts representative bring adaptive equipment/mobility aids from home or obtain and provide as needed 20. Consult pharmacy regarding effects of med's affecting mobility, cognition, and alternatives 21. Obtain physician order for PT if risk factors associated with mobility are present 22. Obtain physician order for OT as appropriate 23. Utilize diversional activities 24. Educate patient and patient new accounts representative how to maintain a safe environment during visitation times (notify nurse prior to leaving bedside) 25. Consider appropriateness of medical or non-medical assistant internal medicine 26. Set up voiding schedule as appropriate [...] Medical History: Diagnosis Date Cancer of prostate ([facility]) 2017 prostatectomy Diverticulitis Diverticulosis Fecal impaction ([facility]) Inflammation of sacroiliac joint ([facility]) Knee pain Low back pain Lumbar disc disorder Neurogenic claudication 12/17/2023 Osteoarthritis SBO (small bowel obstruction) ([facility]) 10/04/2023 Shingles UTI (urinary tract infection) Varicose veins of right lower extremity with pain 02/08/2020 Visual impairment 12/20/2023 Past Surgical History: Procedure Laterality Date ABDOMINAL ADHESION SURGERY COLONOSCOPY COLONOSCOPY N/A 03/25/2023 Performed by Matt Campbell DO at [facility] HERNIA REPAIR Left inguinal HIP SURGERY Left LAMINECTOMY LUMBAR MULTI LEVEL / L2-L5 N/A 12/25/2023 Performed by Mayco Nolen MD at [facility] PROSTATE BIOPSY PROSTATECTOMY REVISION TOTAL KNEE [...] pass Equipment: RW, gait belt, wound drain Telemetry/Shopping Centre Manager: Yes Oxygen Used: room air Other: fall [...] Patient will perform bed mobility with Modified [place] Dates: Start: 12/26/23 Expected End: 01/24/24 Description: Goal Description: with proper BUE placement and sequencing Disciplines: PT Problem: Gait Dates: Start: 12/26/23 Disciplines: PT Goal: Patient will perform gait with Modified [place] Dates: Start: 12/26/23 Expected End: 01/24/24 Description: With__RW__,__150__feet Goal Description: with proper gait pattern and safety awareness Disciplines: PT Problem: Stairs/Curb Dates: Start: 12/26/23 Disciplines: PT Goal: Patient will perform stairs/curb with Modified [place] Dates: Start: 12/26/23 Expected End: 01/24/24 Description: [...] Goal: Patient will perform transfers with Modified [place] Dates: Start: 12/26/23 Expected End: 01/24/24 Description: [...] Description: INTERVENTIONS: 1. Encourage patient or legal new accounts representative to report early pain and ask [...] per policy 9. Teach patient or legal new accounts representative interventions for comforting Outcome: Progressing Note: [...] hygiene technique 7. Identify and instruct patient/patient new accounts representative in use of appropriate isolation precautions for identified infection/symptoms 8. Provide and discuss with patient/patient new accounts representative on educational MDRO sheet 9. Encourage and monitor nutritional status daily and consult coding auditor if indicated 10. Implement neutropenic guidelines as [...] [place] punches. I then checked with a [place] elevator and confirmed that there was no [...] Nolen MD - Primary Assistants: None Staff: Mft Primary: Lily Glasgow RN Mft Relief: Dina Roy RN Scrub Person: Janak [...] Implant Name Type Inv. Item Serial No. Photographers' Model Lot No. LRB No. Used Action PATCH DURA 1X1IN DRMTRX-ONLAY + CLGN RGNRT MEMBR STRL RPL [id number] - [id number] Graft PATCH DURA 1X1IN DRMTRX-ONLAY + CLGN RGNRT MEMBR STRL RPL [id number] [employer]ULINA [employer] [id number] N/A 1 Implanted Estimated Blood Loss: 100 [...] no further orders documented in this encounter [facility] 12-27-2023 Hospital course Narrative Images from the original note were not included. [facility] [address] [place] [address], [address] [place] [address] * NEUROSURGERY DISCHARGE SUMMARY Patient: Regan Green Date of : 1950 Acct: [id number] Primary Care Physician: Sumanth Hill MD Admit [...] mg EC tablet Commonly known as: VOLTAREN [facility] [facility] [email or web address] [facility] ORAL OSTEO BI-FLEX ORAL oxyCODONE-acetaminophen 5-325 mg per tablet Commonly known as: PERCOCET tiZANidine 4 mg tablet Commonly known as: ZANAFLEX Where to Get Your Medications These medications were sent to [facility] [phone] [facility] [address] [facility] [address] [facility] [id number] methocarbamoL 500 mg tablet naloxone 4 mg/actuation [...] acceptable and clinically appropriate. JOSEMANUEL Lainez [facility] Patient Touch 12/27/23 12:28 PM JOSEMANUEL [place] 12/27/23 1231 documented in this encounter [facility] 12-27-2023 Hospital Discharge instructions JOSEMANUEL Sandoval [...] remove at that time. Other Instructions: Call [facility] with any questions, . The following attachments cannot be sent through Care Everywhere.Radiculopathy Discharge Instructions (Maltese)documented in this encounter [facility] [employer] 12-27-2023 Plan of care note Problem: Pain Goal: Patient goal is pain score less than 4, able to rest, and participant in treatment plan as appropriate Description: INTERVENTIONS: 1. Encourage patient or legal new accounts representative to report early pain and ask [...] per policy 9. Teach patient or legal new accounts representative interventions for comforting Outcome: Progressing Note: [...] at the bedside 7. Instruct patient/ patient new accounts representative about use of safety devices 8. Include patient/ patient new accounts representative in decisions related to safety Outcome: [...] hygiene technique 7. Identify and instruct patient/patient new accounts representative in use of appropriate isolation precautions for identified infection/symptoms 8. Provide and discuss with patient/patient new accounts representative on educational MDRO sheet 9. Encourage and monitor nutritional status daily and consult coding auditor if indicated 10. Implement neutropenic guidelines as needed 11. Review exposure to history of communicable disease and recent travel history on admission 12. Encourage annual influenza vaccine 13. Encourage pneumonia vaccine Outcome: Progressing Note: Evaluation of progress towards goal: Patient denies fever. No purulent drainage noted at site. Plan of care ongoing. Problem: Knowledge Deficit Goal: Patient/patient new accounts representative demonstrates understanding of disease process, treatment [...] be free from fall Description: Interventions: 1. [place] to environment 2. Hourly rounds addressing the [...] non-skid footwear 11. Teach patient and patient new accounts representative to maintain environment for safety and [...] (cane, walker) within reach 19. Request patient new accounts representative bring adaptive equipment/mobility aids from home or obtain and provide as needed 20. Consult pharmacy regarding effects of med's affecting mobility, cognition, and alternatives 21. Obtain physician order for PT if risk factors associated with mobility are present 22. Obtain physician order for OT as appropriate 23. Utilize diversional activities 24. Educate patient and patient new accounts representative how to maintain a safe environment during visitation times (notify nurse prior to leaving bedside) 25. Consider appropriateness of medical or non-medical assistant internal medicine 26. Set up voiding schedule as appropriate [...] progress towards goal: Plan of care ongoing. [facility] tracx 12-27-2023 Progress note Formatting of t his note is different from the original. Physical Therapy CANCEL - Deferred Per RN pt is dizzy and diaphoretic laying supine in bed. Will hold PT treatment and attempt to complete session as able. tracx 12-27-2023 History of Present illness Narrative Images from the original note were not included. [facility] [address] [place] [address], [address] [place] [address] * NEUROSURGERY DAILY PROGRESS NOTE DATE:12/27/2023 PATIENT'S [...] - Home later today JOSEMANUEL Lainez Neurosurgery [facility] Patient Touch 12/27/23 6:04 AM To find out which ESTEFANY is on for the day please go to [email or web address] and use log in [employer] and search for PTH Neurosurgery JOSEMANUEL Sandoval 12/26/23 1010 JOSEMANUEL Sandoval 12/27/23 1228 Images from the original note were not included. [facility] [address] [place] [address], [address] [place] [address] * NEUROSURGERY DAILY PROGRESS NOTE DATE:12/26/2023 PATIENT'S [...] later vs in AM JOSEMANUEL Lainez Neurosurgery [facility] Patient Touch 12/26/23 9:51 AM To find out which ESTEFANY is on for the day please go to [email or web address] and use log in [employer] and search for P[facility] Neurosurgery JOSEMANUEL Sandoval 12/26/23 1010 [facility] 12-27-2023 Plan of care note Problem: Pain Goal: Patient goal is pain score less than 4, able to rest, and participant in treatment plan as appropriate Description: INTERVENTIONS: 1. Encourage patient or legal new accounts representative to report early pain and ask [...] per policy 9. Teach patient or legal new accounts representative interventions for comforting Outcome: Progressing Note: [...] at the bedside 7. Instruct patient/ patient new accounts representative about use of safety devices 8. Include patient/ patient new accounts representative in decisions related to safety Outcome: [...] hygiene technique 7. Identify and instruct patient/patient new accounts representative in use of appropriate isolation precautions for identified infection/symptoms 8. Provide and discuss with patient/patient new accounts representative on educational MDRO sheet 9. Encourage and monitor nutritional status daily and consult coding auditor if indicated 10. Implement neutropenic guidelines as needed 11. Review exposure to history of communicable disease and recent travel history on admission 12. Encourage annual influenza vaccine 13. Encourage pneumonia vaccine Outcome: Progressing Note: Evaluation of progress towards goal: patient free from s/s of infection Problem: Knowledge Deficit Goal: Patient/patient new accounts representative demonstrates understanding of disease process, treatment [...] be free from fall Description: Interventions: 1. [place] to environment 2. Hourly rounds addressing the [...] non-skid footwear 11. Teach patient and patient new accounts representative to maintain environment for safety and [...] (cane, walker) within reach 19. Request patient new accounts representative bring adaptive equipment/mobility aids from home or obtain and provide as needed 20. Consult pharmacy regarding effects of med's affecting mobility, cognition, and alternatives 21. Obtain physician order for PT if risk factors associated with mobility are present 22. Obtain physician order for OT as appropriate 23. Utilize diversional activities 24. Educate patient and patient new accounts representative how to maintain a safe environment during visitation times (notify nurse prior to leaving bedside) 25. Consider appropriateness of medical or non-medical assistant internal medicine 26. Set up voiding schedule as appropriate [...] goal: patient maintaining body alignment per self [facility] 12-26-2023 Plan of care note Problem: Pain Goal: Patient goal is pain score less than 4, able to rest, and participant in treatment plan as appropriate Description: INTERVENTIONS: 1. Encourage patient or legal new accounts representative to report early pain and ask [...] per policy 9. Teach patient or legal new accounts representative interventions for comforting Outcome: Progressing Note: [...] at the bedside 7. Instruct patient/ patient new accounts representative about use of safety devices 8. Include patient/ patient new accounts representative in decisions related to safety Outcome: [...] hygiene technique 7. Identify and instruct patient/patient new accounts representative in use of appropriate isolation precautions for identified infection/symptoms 8. Provide and discuss with patient/patient new accounts representative on educational MDRO sheet 9. Encourage and monitor nutritional status daily and consult coding auditor if indicated 10. Implement neutropenic guidelines as needed 11. Review exposure to history of communicable disease and recent travel history on admission 12. Encourage annual influenza vaccine 13. Encourage pneumonia vaccine Outcome: Progressing Note: Evaluation of progress towards goal: Patient is being monitored for s/sx of infection. Problem: Knowledge Deficit Goal: Patient/patient new accounts representative demonstrates understanding of disease process, treatment [...] Moderate - High Risk Fall Score Description: Soin Fall Score of =/> 25 or indicated by [facility] Assessment Goal: Patient should be free from fall Description: Interventions: 1. [place] to environment 2. Hourly rounds addressing the [...] non-skid footwear 11. Teach patient and patient new accounts representative to maintain environment for safety and [...] (cane, walker) within reach 19. Request patient new accounts representative bring adaptive equipment/mobility aids from home or obtain and provide as needed 20. Consult pharmacy regarding effects of med's affecting mobility, cognition, and alternatives 21. Obtain physician order for PT if risk factors associated with mobility are present 22. Obtain physician order for OT as appropriate 23. Utilize diversional activities 24. Educate patient and patient new accounts representative how to maintain a safe environment during visitation times (notify nurse prior to leaving bedside) 25. Consider appropriateness of medical or non-medical assistant internal medicine 26. Set up voiding schedule as appropriate [...] towards goal: Patient maintains proper anatomical alignment. [facility] tracx 12-26-2023 Progress note Formatting of t his [...] 6 Clicks: Basic Mobility Raw Score: 18 [facility] G Code Modifier: CK Therapy Plan Need for skilled Physical Therapy to address deficits in functional mobility due to a status decline resulting from recent admit on 12/25/23 with planned lumbar laminectomy at L2-L5 d/t radiculopathy of lumbar region. Past Medical History: Diagnosis Date Cancer of prostate ([facility]) 2017 prostatectomy Diverticulitis Diverticulosis Fecal impaction ([facility]) Inflammation of sacroiliac joint ([facility]) Knee pain Low back pain Lumbar disc disorder Neurogenic claudication 12/17/2023 Osteoarthritis SBO (small bowel obstruction) ([facility]) 10/04/2023 Shingles UTI (urinary tract infection) Varicose veins of right lower extremity with pain 02/08/2020 Visual impairment 12/20/2023 Past Surgical History: Procedure Laterality Date ABDOMINAL ADHESION SURGERY COLONOSCOPY COLONOSCOPY N/A 03/25/2023 Performed by Matt Campbell DO at [facility] HERNIA REPAIR Left inguinal HIP SURGERY Left LAMINECTOMY LUMBAR MULTI LEVEL / L2-L5 N/A 12/25/2023 Performed by Mayco Nolen MD at [facility] PROSTATE BIOPSY PROSTATECTOMY REVISION TOTAL KNEE ARTHROPLASTY Right 2013 due to swelling TOTAL KNEE ARTHROPLASTY Right 2013 PT Treatment/Interventions: Functional transfer training, LE strengthening/ROM, [...] pass Equipment: RW, gait belt, wound drain Telemetry/Shopping Centre Manager: Yes Oxygen Used: room air Other: fall [...] Patient will perform bed mobility with Modified [place] Dates: Start: 12/26/23 Expected End: 01/24/24 Description: Goal Description: with proper BUE placement and sequencing Disciplines: PT Problem: Gait Dates: Start: 12/26/23 Disciplines: PT Goal: Patient will perform gait with Modified [place] Dates: Start: 12/26/23 Expected End: 01/24/24 Description: With__RW__,__150__feet Goal Description: with proper gait pattern and safety awareness Disciplines: PT Problem: Stairs/Curb Dates: Start: 12/26/23 Disciplines: PT Goal: Patient will perform stairs/curb with Modified [place] Dates: Start: 12/26/23 Expected End: 01/24/24 Description: [...] Goal: Patient will perform transfers with Modified [place] Dates: Start: 12/26/23 Expected End: 01/24/24 Description: Goal Description: with proper BUE placement and sequencing Disciplines: PT Physical Therapy Care Plan (Resolved) There are no resolved problems. Principal Problem: Radiculopathy, lumbar region Active Problems: Neurogenic claudication [facility] 12-26-2023 Progress note Formatting of t his [...] smoking, drinking alcohol or doing illciit drugs. [facility] 12-26-2023 Plan of care note Problem: Pain Goal: Patient goal is pain score less than 4, able to rest, and participant in treatment plan as appropriate Description: INTERVENTIONS: 1. Encourage patient or legal new accounts representative to report early pain and ask [...] per policy 9. Teach patient or legal new accounts representative interventions for comforting Outcome: Progressing Note: [...] hygiene technique 7. Identify and instruct patient/patient new accounts representative in use of appropriate isolation precautions for identified infection/symptoms 8. Provide and discuss with patient/patient new accounts representative on educational MDRO sheet 9. Encourage and monitor nutritional status daily and consult coding auditor if indicated 10. Implement neutropenic guidelines as [...] of progress towards goal: progressing with walker [facility] 12-25-2023 Procedure note NEUROSURGERY OPERATIVE NOTE Patient [...] [place] punches. I then checked with a [place] elevator and confirmed that there was no [...] room with stable vital signs. Complications: None. [facility] 12-25-2023 Procedure note Brief Post-op Note NAME: Regan Green : 1950 PROCEDURE DATE: 12/25/2023 Surgeon: Surgeon(s) and Role: * Mayco Nolen MD - Primary Assistants: None Staff: Mft Primary: Lily Glasgow RN Mft Relief: Dina Roy RN Scrub Person: Janak [...] Implant Name Type Inv. Item Serial No. Photographers' Model Lot No. LRB No. Used Action PATCH DURA 1X1IN DRMTRX-ONLAY + CLGN RGNRT MEMBR STRL RPL [id number] - [id number] Graft PATCH DURA 1X1IN DRMTRX-ONLAY + CLGN RGNRT MEMBR STRL RPL [id number] [employer] [id number] N/A 1 Implanted Estimated Blood Loss: 100 ml OB Surgical Procedure Blood Loss: Anesthesia EBL: * No values recorded between 12/25/2023 3:09 PM and 12/25/2023 4:54 PM * OB QBL: * No values recorded between 12/25/2023 3:09 PM and 12/25/2023 4:54 PM * Condition: stable Findings: severe lateral recess stenosis [facility] [employer] [facility] 12-25-2023 Attending History and physical note HISTORY AND PHYSICAL INTERVAL NOTE: Regan Green 1950 [id number] H&P reviewed. The patient was examined and there are no changes to the H&P. Mayco Nolen MD Source Note - JOSEMANUEL Daniels - 12/20/2023 6:12 PM EST Letter to pain management seeking clarification on post operative pain medications. JOSEMANUEL Jackson [facility] Contact via patient touch 12/20/23 6:21 PM To find out which ESTEFANY is on for the day please go to [email or web address] and use log in [employer] and search for [facility] Neurosurgery (ESTEFANY and Phone Number is listed) JOSEMANUEL Daniels 12/20/23 [id number] JOSEMANUEL Daniels 12/25/23 1330 [facility] 12-25-2023 History and physical note HISTORY AND PHYSICAL INTERVAL NOTE: Regan Green 1950 [id number] H&P reviewed. The patient was examined and there are no changes to the H&P. Mayco Nolen MD Source Note - JOSEMANUEL Daniels - 12/20/2023 6:12 PM EST Letter to pain management seeking clarification on post operative pain medications. JOSEMANUEL Jackson [facility] Contact via patient touch 12/20/23 6:21 PM To find out which ESTEFANY is on for the day please go to [email or web address] and use log in [employer] and search for PTH Neurosurgery (ESTEFANY and Phone Number is listed) JOSEMANUEL Daniels 12/20/23 1821 JOSEMANUEL Daniels 12/25/23 1330 documented in this encounter [facility] 12-24-2023 Miscellaneous Notes I spoke to Kenneth to explain how Medicare authorizes surgeries. Reminded Kenneth of surgery tomorrow 12/25/23 at 2:45pm with TTH arrival time of 12:45 pm documented in this encounter [facility] 12-24-2023 Telephone encounter Note I spoke to Kenneth to explain how Medicare authorizes surgeries. Reminded Kenneth of surgery tomorrow 12/25/23 at 2:45pm with TTH arrival time of 12:45 pm [facility] 12-24-2023 Nurse Note Anesthesia review: Parveen Patel: 12/25: TTH: GA. only hx prostate CA. No c/o CP or SOB. EKGs: LAst PCP note Reviewed and accepted by Dr Vásquez with no further orders [facility] 12-20-2023 Miscellaneous Notes Patient called to advise office that he does not need surgery clearance from PCP. documented in this encounter [facility] 12-20-2023 Telephone encounter Note Patient called to advise office that he does not need surgery clearance from PCP. [facility] 12-20-2023 History and physical note PRE-ADMISSION TESTING HISTORY AND PHYSICAL EXAM DATE: 12/20/23 PCP: Sumanth Hill MD CHIEF COMPLAINT: back pain HISTORY OF PRESENT ILLNESS: Regan Green, a 73 y.o. White or male, presents to [facility] for a pre-surgical H&P. The patient [...] Medical History: Diagnosis Date Cancer of prostate ([facility]) 2017 prostatectomy Diverticulitis Diverticulosis Fecal impaction ([facility]) Inflammation of sacroiliac joint ([facility]) Knee pain Low back pain Lumbar disc disorder Neurogenic claudication 12/17/2023 Osteoarthritis SBO (small bowel obstruction) ([facility]) 10/04/2023 Shingles UTI (urinary tract infection) Varicose veins of right lower extremity with pain 02/08/2020 Visual impairment 12/20/2023 PAST SURGICAL HISTORY: Past Surgical History: Procedure Laterality Date ABDOMINAL ADHESION SURGERY COLONOSCOPY COLONOSCOPY N/A 03/25/2023 Performed by Matt Campbell DO at [facility] HERNIA REPAIR Left inguinal HIP SURGERY [...] the most recent lab values available in [facility] at the time of the office visit. PAT labs are pending per surgeon. ASSESSMENT / DIAGNOSIS: Linked DX: Radiculopathy, lumbar region [M54.16] PLAN: Regan Green is scheduled for Linked Case Date: 12/25/2023 Linked Surgeon: Forrest Nolen MD Linked Surgery: Laminectomy Lumbar Multi Level / L2-L5. JOSEMANUEL Santoyo 12/20/23 1511 tracx 12-20-2023 History and physical note PRE-ADMISSION TESTING HISTORY AND PHYSICAL EXAM DATE: 12/20/23 PCP: Sumanth Hill MD CHIEF COMPLAINT: back pain HISTORY OF PRESENT ILLNESS: Regan Green, a 73 y.o. White or male, presents to [facility] for a pre-surgical H&P. The patient [...] Medical History: Diagnosis Date Cancer of prostate ([facility]) 2017 prostatectomy Diverticulitis Diverticulosis Fecal impaction ([facility]) Inflammation of sacroiliac joint ([facility]) Knee pain Low back pain Lumbar disc disorder Neurogenic claudication 12/17/2023 Osteoarthritis SBO (small bowel obstruction) ([facility]) 10/04/2023 Shingles UTI (urinary tract infection) Varicose veins of right lower extremity with pain 02/08/2020 Visual impairment 12/20/2023 PAST SURGICAL HISTORY: Past Surgical History: Procedure Laterality Date ABDOMINAL ADHESION SURGERY COLONOSCOPY COLONOSCOPY N/A 03/25/2023 Performed by Matt Campbell DO at [facility] HERNIA REPAIR Left inguinal HIP SURGERY [...] the most recent lab values available in [facility] at the time of the office visit. PAT labs are pending per surgeon. ASSESSMENT / DIAGNOSIS: Linked DX: Radiculopathy, lumbar region [M54.16] PLAN: Regan Green is scheduled for Linked Case Date: 12/25/2023 Linked Surgeon: Forrest Nolen MD Linked Surgery: Laminectomy Lumbar Multi Level / L2-L5. JOSEMANUEL Santoyo 12/20/23 1511 documented in this encounter [facility] 12-20-2023 Instructions Antonia Rosario RN - 12/20/2023 1:45 PM EST Your surgery/procedure is scheduled at [facility] on 12/25 at 2:45 Arrival Time 12:45 [facility] Address: [address] [place] [address] in [address]ing lot located on [facility]. Report to the Entrance B. Check in at the information desk the surgery. The waiting room located on the second floor. If you have any questions prior to surgery, please call Pre-Admission Clinic at [phone] between 7:30 am and 4:30 pm Saturday through Saturday. If you have questions the morning of surgery, please call the Pre-op Department at [phone]. Notify your SURGEON if you develop any [...] would like to schedule therapy at a [facility] facility, please call [phone] ([phone]). Do not use lotions, creams, powders, perfume, make up, cologne or after-shaves day of surgery. Remove ALL jewelry including wedding rings, body piercings,hair extensions that contain metal, nail slovak, make-up, and contact lens. You may brush [...] RIGHTS AND RESPONSIBILITIES As a patient at [facility], you have the right to: Receive medical care and be informed of who is taking care of you Be treated with dignity and respect Have a family member/new accounts representative of choice and your physician notified of your admission Receive information and actively participate in decisions about your care and treatment Refuse care, treatment and services Decide who may provide your support and speak for you Access pentecostalism and spiritual services Participate in ethical issues [...] of hospital charges and payment methods Patient/patient new accounts representative responsibilities are to: Provide information about [...] in clean clothes. documented in this encounter [facility] 12-18-2023 History of Present illness Narrative [...] 10/04/23 no acute pulmonary pathology JOSEMANUEL Jackson [facility] Contact via patient touch 12/21/23 6:10 AM To find out which ESTEFANY is on for the day please go to [email or web address] and use log in [employer] and search for PTH Neurosurgery (ESTEFANY and Phone Number is listed) JOSEMANUEL Daniels 12/25/23 [id number] documented in this encounter [facility] 12-10-2023 Miscellaneous Notes Regan calls into the [...] would have to speak with Dr. Nolen receptionist scheduler about surgery. Patient transferred to Dr. Nolen receptionist scheduler. documented in this encounter [facility] 12-10-2023 Telephone encounter Note Regan calls [...] would have to speak with Dr. Nolen receptionist scheduler about surgery. Patient transferred to Dr. Nolen receptionist scheduler. [facility] 11-27-2023 Miscellaneous Notes Kenneth left a message to ask how many physical therapy visits he should try to complete before scheduling surgery. Left message for Kenneth to let him know at least six visits usually show good effort but if these are unsuccessful he needs to make sure the physical therapist is documenting increase of pain or ineffectiveness. documented in this encounter [facility] 11-27-2023 Telephone encounter Note Kenneth left a message to ask how many physical therapy visits he should try to complete before scheduling surgery. [facility] 11-27-2023 Telephone encounter Note Left message for Kenneth to let him know at least six visits usually show good effort but if these are unsuccessful he needs to make sure the physical therapist is documenting increase of pain or ineffectiveness. [facility] 11-14-2023 History of Present illness Narrative Images from the original note were not included. [facility] [address] [place] [address], [address] [place] [address] * CHART NOTE ? 11/14/2023 Patient: Regan Green 1950 [id number] Nurse Practitioner: Carl Sosa MARINE TECHNICIAN Physician: Mayco Nolen MD, [facility] CHIEF COMPLAINT [...] He was seen by [facility] in [place], but was advised they could no longer help. He has not had any interventional pain procedures, but was seen at [facility] in [place], [place], but was advised he should be seen here first. Patient's imaging was discussed and reviewed to their understanding in office today. Patient has not yet exhausted all conservative measures of treatment and is agreeable to them namely CHANTELLE. Denies loss of social media campaign manager strength, saddle anesthesia, urinary or bowel dysfunction, [...] Medical History: Diagnosis Date Carcinoma of prostate ([facility]) Diverticulitis Diverticulosis Fecal impaction ([facility]) Inflammation of sacroiliac joint ([facility]) Knee pain Low back pain Lumbar disc disorder Osteoarthritis Shingles UTI (urinary tract infection) Visual impairment PAST SURGICAL HISTORY Past Surgical History: Procedure Laterality Date ABDOMINAL ADHESION SURGERY COLONOSCOPY COLONOSCOPY N/A 03/25/2023 Performed by Matt Campbell DO at [facility] HERNIA REPAIR Left inguinal HIP SURGERY [...] Right achilles 2+ Left achilles 2+ Right social media campaign manager 2+ Left social media campaign manager 2+ Right Mack reflex absent and left [...] visible abscess or suspicious gas within the sznrn-fv-hjkb Close clinical follow-up and short-term progress repeat [...] but was seen at Pain Management in [place], [place], but was advised he should be [...] of the patient encounter. Inadvertent computerized automotive professional errors related to syntax, spelling, homophones, and/or inaudibility may be present. Scribe Statement: Scribed for and in the presence of JOSEMANUEL Kirk by Joshua Higginbotham. JOSEMANUEL Kirk 11/14/23 1630 documented in this encounter [facility] 11-14-2023 Instructions AINSLEY Szymanski - 11/14/2023 9:30 AM EST Patient was seen by Dr. Nolen and JOSEMANUEL Chappell Patient was given an order for an x ray Lumbar spine Flex/Ext Medrol pack Physical therapy Referral for Lumbar to PT services Pain management referral for Lumbar L3-4 Patient will follow up after Pain management JA [facility]-05-2023 Miscellaneous Notes ED Outreach This documentation is being used for Transition of Care purposes: Yes/No: Yes ED Outreach Date: November 05, 2023 ED Outreach Method: COMMUNICATION METHOD: Telephone ED Outreach Attempt: first ED Outreach Outcome: Contacted Patient Name of ED Facility: [facility] Date of ED Discharge: 10/31/2023 Discharge [...] with additional concerns. documented in this encounter [facility] 11-05-2023 Telephone encounter Note ED Outreach This documentation is being used for Transition of Care purposes: Yes/No: Yes ED Outreach Date: November 05, 2023 ED Outreach Method: COMMUNICATION METHOD: Telephone ED Outreach Attempt: first ED Outreach Outcome: Contacted Patient Name of ED Facility: [facility] Date of ED Discharge: 10/31/2023 Discharge [...] will contact the office with additional concerns. [facility] 10-30-2023 Evaluation note Encounter Date Diagnosis Assessment [...] pain of right shoulder (ICD-10 - M25.511) 800APP Other 12-19-2023 NoteCT LUMBAR SPINE WO CONT [...] abscess or suspicious gas visible within the xidbv-nl-xoje. Repeat contrast abdominal pelvic CT may prove useful in combination with colonic screening with appropriate Probable parapelvic cysts in the left kidney Prominent vascular calcifications There is some metal artifact related to a prior surgery at the left acetabular region. There are also clips in the low pelvis as seen on the office clerk routine image Sagittal images include from the lower [...] visible abscess or suspicious gas within the azrlu-ha-unfk Close clinical follow-up and short-term progress repeat abdominal pelvic contrast CT and colonic screening considered There is also be severe degenerative change of the lumbar spine and relatively severe canal and neural foraminal stenosis probably greatest at L3-4 and L4-5 levels There is no compression deformity or destructive bone process Finalized by Renaldo Tinajero MD on 10/22/2023 1:09 [facility] 08-20-2023 Evaluation note* Encounter Date Diagnosis [...] pain of right shoulder (ICD-10 - M25.511) 800APP Other 09-19-2023 Evaluation note* Encounter Date Diagnosis [...] pain of right shoulder (ICD-10 - M25.511) 800APP Other 08-21-2023 Evaluation note* Encounter Date Diagnosis [...] pain of right shoulder (ICD-10 - M25.511) 800APP Other 07-18-2023 Evaluation note* Encounter Date Diagnosis [...] given order for occupational therapy and braces 800APP Other 05-16-2023 NoteCONSULTATION CONSULTATION DATE: 03/19/2023 TO: [...] our patients to inform us about any jtjy-idv-nsghlfg medications or herbal remedies/nutritional supplements/alternative remedies. 2. [...] treatment options with their primary care provider.[facility] [id number] Note CONSULTATION PROCEDURE DATE: 02/21/2023 PROCEDURE: Right [...] removed. He was discharged after meeting criteriaThe [facility] [id number] NoteCONSULTATION CONSULTATION DATE: 12/18/2022 CHIEF COMPLAINT: Left [...] like to proceed. CC: Sumanth Hill M.D.[facility] [id number] NoteCONSULTATION PROCEDURE DATE: 12/18/2022 PREOPERATIVE DIAGNOSIS: Osteoarthritis [...] will be followed up in the office.[facility] [id number] NoteCONSULTATION CONSULTATION DATE: 11/22/2022 HISTORY OF PRESENT [...] food. We will send a referral to [facility] to have his left CMC joint evaluated. Patient does agree with this, and we will follow him up in the clinic in three months' time.[facility] [id number] NotePROCEDURE: XR HAND LT MIN 3V HISTORY: [...] Electronically authenticated by: ALESSANDRO MEJIA Date: 2022-09-26 22:39[facility]11-17-2022 NoteCONSULTATION CONSULTATION DATE: 09/20/2022 HISTORY OF PRESENT [...] mg t.i.d., Percocet 5/325 b.i.d., multivitamin and Vmryi-Xb-Ygxk. Patient, procedure-holloway, had radiofrequency ablation of his [...] to the clinic thereafter for follow up.[facility] [id number] NoteCONSULTATION CONSULTATION DATE: 08/02/2022 HISTORY OF PRESENT [...] of care and all questions were answered.[facility] [id number] NoteCONSULTATION CONSULTATION DATE: 06/14/2022 This is a [...] and Achilles reflexes are +2. DIAGNOSIS: Code [facility] is 724.6. PLAN: We will authorize for a left SI joint injection, refill his Percocet 5/325 b.i.d. and refill Diclofenac 50 mg t.i.d. He is compliant with his vitamin regimen. At this time, I reiterated the use of heat and stretches. The patient will be followed in the clinic post-procedure and agrees to move forward.[facility] HospitalEvaluation noteNo assessment information available [facility] Work Phone: Evaluation note* Diagnosis Lumbar radiculopathy, chronic- Primary documented in this encounter [facility]* Diagnosis Neurogenic claudication- Primary Spinal stenosis of lumbar region Lumbar radiculopathy, chronic documented in this encounter [facility]* Diagnosis Radiculopathy, lumbar region [...] of lumbar region [facility] Diagnosis Radiculopathy, lumbar region- Primary Thoracic or lumbosacral neuritis or radiculitis, unspecified Radiculopathy, lumbar region Thoracic or lumbosacral neuritis or radiculitis, unspecified Neurogenic claudication Spinal stenosis of lumbar region Neurogenic claudication Spinal stenosis of lumbar region documented in this encounter [facility]* Diagnosis Onset Date Resolution Status Left hand pain acute 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, left hand acute [facility] Work Phone: History general Narrative - Reported* Type Description Date Medical History post knee right replacement Surgical History knee replacement right Surgical History hernia Surgical History prostatectomy Surgical History acetabulum fx Hospitalization History see above 800APP Other InstructionsNot on filedocumented in this encounter [facility] Signicat SystemInstructionsNot on filedocumented in this encounter [facility] Signicat SystemInstructionsNot on filedocumented in this encounter [facility] Signicat SystemInstructionsNot on filedocumented in this encounter [facility] (narrative)* Consultation (Routine) - Pending Review Specialty Diagnoses / Procedures Referred By Gaston borges Referred To Contact Neurosurgery Diagnoses Lumbar radiculopathy, chronic Sumanth Hill MD [address] [place] [id number] Mayco Nolen MD [address] [place] [phone] Referral ID Status Reason Start Date Expiration Date Visits Requested Visits Authorized [id number] Pending Review Specialty Services Required 11/05/2023 11/04/2024 1 1 [facility] ([facility])* Consultation (Routine) - Pending Review Specialty Diagnoses / Procedures Referred By Gaston borges Referred To Contact Pain Medicine Diagnoses Lumbar radiculopathy, chronic Neurogenic claudication Carl Sosa APRN-CNP [address] [place] [address] [address] Referral ID Status Reason Start Date Expiration Date V isits Requested Visits Authorized [id number] Pending Review 11/14/2023 11/13/2024 1 1 * Physical Therapy (Routine) - Pending Review Specialty Diagnoses / Procedures Referred By Gaston borges Referred To Contact Rehabilitation Diagnoses Lumbar radiculopathy, chronic Neurogenic claudication Carl Sosa APRN-CNP [address] [place] [address] [facility] [address] [place] [address] Referral ID Status Reason Start Date Expiration Date Visits Requested Visits Authorized [id number] Pending Review Specialty Services Required 11/14/2023 11/13/2024 1 1 [employer] [facility] Summary Purpose Family History No Family [...] section and content) DATE CREATED AUTHOR 04/21/2018 [facility] DATE CREATED AUTHOR AUTHOR'S ORGANIZ ATION 12/04/2021 [facility] DATE CREATED AUTHOR AUTHOR'S ORGANIZ ATION 02/25/2022 [facility] dical Specialist DATE CREATED AUTHOR AUTHOR'S ORGANIZ ATION 04/12/2023 [facility] DATE CREATED AUTHOR AUTHOR'S ORGANIZ ATION 07/01/2023 [facility] DATE CREATED AUTHOR AUTHOR'S ORGANIZ ATION 11/27/2023 [facility] DATE CREATED AUTHOR AUTHOR'S ORGANIZ ATION 04/25/2024 [facility] DATE CREATED AUTHOR AUTHOR'S ORGANIZ ATION 04/30/2024 [facility] DATE CREATED AUTHOR AUTHOR'S ORGANIZ ATION 05/04/2024 [facility] REASON FOR VISIT (unrecogniz ed section and content) Reason Onset Date Comments Er Follow-up 11/05/2023 Reason Comments New Patient cnp/lumbar/promedica films/no w/c/mailed pkt Specialty Diagnoses / Procedures Referred By Gaston borges Referred To Contact Neurosurgery Diagnoses Lumbar radiculopathy, chronic Defrance, Sumanth Borges MD [address] [place] [address]. [place] [address] Mayco Nolen MD [address] [place] [phone] Referral ID Status Reason Start Date Expiration Date Visits Requested Visits Authorized [id number] Pending Review Specialty Services Required 11/05/2023 11/04/2024 1 1 Reason Onset Date Comments surgery 12/10/2023 Reason Onset Date Comments surgery 12/24/2023 Specialty Diagnoses / Procedures Referred By Gaston borges Referred To Contact Referral ID Status Reason Start Date Expiration Date Visits Re quested Visits Authorized [id number] 1 1 Care Teams (unrecognized sec tion [...] Active Charity Barkley MD Attending Provider Active Coal Mine Inspector Relationship Specialty Start Date End Date Sumanth Hill MD [address] [address] PCP - General Family Medicine 01/16/23 Coal Mine Inspector Relationship Specialty Start Date End Date Sumanth Hill MD [address] [place] [address] PCP - General Family Medicine 01/16/23 Coal Mine Inspector Relationship Specialty Start Date End Date Sumanth Hill MD [address] [place] [address] PCP - General Family Medicine 01/16/23 Coal Mine Inspector Relationship Specialty Start Date End Date Sumanth Hill MD [address] [place] [address] PCP - General Family Medicine 01/16/23 Coal Mine Inspector Relationship Specialty Start Date End Date Sumanth Hill MD [address] [place] [address] PCP - General Family Medicine 01/16/23 Coal Mine Inspector Relationship Specialty Start Date End Date Sumanth Hill MD [address] [place] [address] PCP - General Family Medicine 01/16/23 Coal Mine Inspector Relationship Specialty Start Date End Date Sumanth Hill MD [address] [place] [address] PCP - General Family Medicine 01/16/23 Coal Mine Inspector Relationship Specialty Start Date End Date Sumanth Hill MD [address] [place] [address] PCP - General Family Medicine 01/16/23 Team [...] RN)0935 (Stop Bag - Provider: Michaelle Zeng, MIREILLE) methocarbamoL (ROBAXIN) tablet 500 mg 500 mg, [...] RN)2022 (Given - Provider: Pineda Alexandra, RN) 09 (Given - Provider: Michaelle Zeng, RN) sodium chloride 0.9 % flush 3 mL 3 mL, intravenous, Every 12 hours scheduled, First dose on Sat12/25/23 at 2100, PACU & Post-op, Once tolerating oral intake 2099 (Given - Provider: Shira Thomas RN) 822 (Given - Provider: José Miguel eDvine RN)2022 (Given - Provider: Pineda Alexandra, RN) 0900 (Not Given - Provider: Michaelle Zeng, MIREILLE - Reason: IV infusing) sodium chloride 0.9 [...] Indications: muscle spasm 1945 (Given - Provider: Shiar Thomas RN) 08 (Not Given - Provider: [...] Vibha Saeed RN) lidocaine-EPINEPHrine (XYLOCAINE W/EPI) 1 %-[id number] injection (CANCELED) As needed, Starting on Sat12/25/23 [...] Bahena RN) 045 (See Alternative - Provider: Bnadar Bahena RN)1227 (See Alternative - Provider: José [...] BE BASED ON THE PRIMARY CLINICAL RECORDS. [employer] [facility]. provides no warranty or guarantee of the accuracy or completeness of information in this document.
[2024-05-19 07:17] VITALS: BP 125/82; PULSE 95; TEMP 36.3; O2SAT 98
[2024-05-19 08:02] VITALS: BP 172/91; PULSE 98; O2SAT 96
[2024-05-19 08:03] VITALS: BP 174/75; PULSE 90; O2SAT 96
[2024-05-19] MEDS: IOHEXOL 240 MG/ML - 10 ML VIAL 12 MG INJ (08:08)
[2024-05-19] MEDS: 0.9 % SODIUM CHLORIDE 10 ML SYRINGE - SALINE FLUSH 2 ML INJ (08:08)
[2024-05-19] MEDS: BUPIVACAINE HCL 0.25% PF 25 MG/10 ML VIAL 2 ML INJ (08:08)
[2024-05-19] MEDS: METHYLPREDNISOLONE ACETATE 80 MG/ML VIAL INJ (08:09)
[2024-05-19] MEDS: LIDOCAINE HCL 2% PF 100 MG/5 ML VIAL 2 ML INJ (08:09)
--- NOTE | 2024-05-19 08:54 | P.ON_ITS ---
Date of procedure: 05/19/24 Pre-op diagnosis: Lumbar stenosis Post-op diagnosis: same as pre-op Procedure: Caudal Epidural Steroid Injection without catheter advancement Pre-operative diagnosis includes Radiculopathy, Postoperative diagnosis same, Under fluoroscopic guidance Solution used for the injection is Marcaine 0.25% Depo-Medrol 80 mg total of 5ml Omnipaque 3cc,3ml total, 1ml was used for injection to confirm needle tip placement within the epidural space. Anesthesia: local anesthesia using 2% lidocaine, total no more than 5 mL. Timeout process compliant After obtaining informed consent .the patient was brought to the procedure room .placed in the prone position . the area was prepped and draped in a sterile fashion utilizing betadine.The procedure was changed to a caudal intra-op due to scar tissue from previous surgery. 25 gauge needle was used to create a skin wheal over the sacral hiatus identified under fluoroscopy. 17 gauge touhy needle was inserted over the anesthetized area and directed to the native hiatus under fluoroscopic guidance. after piercing the sacrococcygeal ligament. Confirmation of needle tip placement within the epidural space was accomplished with injection of contrast solution in AP and Lateral views. Epidural catheter was advanced to the L5 level, placement confirmed with injection of contrast solution . the steroid solution was then injected .needle was removed post procedurally. patient transferred to recovery area in stable condition. Discharged home after meeting criteria. Anesthesia: Local Surgeon: Lisa Palm Condition: stable
== END 2024-05-19 08:10 | disposition home or self-care (01) ==
LOC: SURGOUT 07:07
PROVIDERS: PCP Family Medicine; Visit Provider Anesthesiology Pain Medicine
DX: M48.061 Spinal stenosis, lumbar region without neurogenic claudication (principal); M54.16 Radiculopathy, lumbar region
CPT/HCPCS: 62323; J0665; J1010; Q9966

== ENCOUNTER 2024-05-28 08:18 | Outpatient (OUT) | payer MEDICARE, OTHER, SELFPAY ==
--- NOTE | 2024-05-28 08:28 | P.CN_ITS ---
Consult Note: HPI Data of Consult Patient: known to practice within the last 3 years Consult date: 11/07/23 Requesting Physician: Danielle Davila NP Primary Care Provider: SUMANTH BECK Consult Narrative Reason for consult: f/u Narrative: Regan Green a pleasant 73 year old male presents for evaluation and manag ement of chronic low back pain, lumbar stenosis, lumbar radiculopathy, myofascial pain. Patient following with Dr Slick CRAIG in [place], status post L2-[address] Nolen now recommending L4-5 CHANTELLE be completed, which was changed to Caudal targeting L5-S1 due to laminectomy. Recent lumbar MRI reveals moderate to severe multilevel stenosis. continues to report mild improvement from gabapentin 300mg daily, baclofen 10-20 mg TID PRN, percocet 5/325mg BID PRN moderate to severe pain. At this time reporting >80% improvement from CHANTELLE. cc:: CC: Danielle Davila NP Review of Systems ROS Status of ROS 10 or more systems reviewed and unremark able except as noted in history and below Musculoskeletal Reports: back pain PFSH PFSH Medical History Rheumatoid arthritis ?M06.9 - Rheumatoid arthritis, unspecified (ICD-10) Low back pain ?M54.50 - Low back pain, unspecified (ICD-10) Prostate cancer ?C61 - Malignant neoplasm of prostate (ICD-10) Sacroiliitis, not elsewhere classified ?M46.1 - Sacroiliitis, not elsewhere classified (ICD-10) Surgical History Status post hip surgery ?Z98.890 - Other specified postprocedural states (ICD-10) S/P hernia repair ?Z98.890 - Other specified postprocedural states (ICD-10) ?Z87.19 - Personal history of other diseases of the digestive system (ICD-10) S/P total knee arthroplasty ?Z96.659 - Presence of unspecified artificial knee joint (ICD-10) S/P prostatectomy ?Z90.79 - Acquired absence of other genital organ(s) (ICD-10) Meds Home Medications and Allergies Home Medications ?Medication ?Instructions ?Recorded ?Confirmed ?Type OSCAL WITH D PO .QD 04/18/23 History diclofenac sodium 75 mg 75 mg PO BID 04/18/23 05/19/24 History tablet,delayed release glucosamine-chondroitin 250 mg-200 2 tab PO .QD 04/18/23 05/19/24 History mg tablet (Osteo Bi-Flex) multivitamin 1 tab PO DAILY 04/18/23 05/19/24 History gabapentin 300 mg capsule 300 mg PO .qhs #30 caps 01/22/24 05/19/24 Rx vitamin B complex (Vitamins B 1 tab PO DAILY 01/22/24 05/19/24 History Complex tablet) oxycodone-acetaminophen 5 mg-325 1 tab PO BID PRN pain #60 tabs 04/17/24 05/19/24 Rx mg tablet (Percocet) diclofenac sodium 75 mg 75 mg PO BID PRN pain #60 tabs 05/14/24 05/19/24 Rx tablet,delayed release oxycodone-acetaminophen 5 mg-325 1 tab PO BID PRN pain #60 tabs 05/14/24 05/19/24 Rx mg tablet (Percocet) cyclobenzaprine 10 mg tablet mg 05/19/24 History Allergies Allergy/AdvReac Type Severity Reaction Status Date / Time No Known Drug Allergies Allergy Verified 05/19/24 07:15 Exam Constitutional Documenting provider has reviewed patient's vital signs: yes Common normals: no apparent distress, oriented x3, healthy appearing, alert and well nourished General appearance: cooperative [facility] Common normals: normocephalic, hearing grossly normal bilaterally and moist oral mucous membranes Head and scalp: normocephalic Eye Common normals: PERRL Pupil: PERRL Neck & C-Spine Common normals: full ROM General: normal visual inspection Chest Common normals: inspection of chest normal Respiratory Common normals: normal respiratory effort, no retractions and no use of accessory muscles Back & Pelvis Lumbar spine/lower back: paraspinal muscle tenderness and straight leg raise negative bilaterally Other: sensation intact BLE strength 5/5 in BLE tightness noted to bilateral lumbar paraspinal muscles but not identifiable trigger points Extremity Common normals: normal to inspection and full ROM Neuro Common normals: oriented x3, CN's II-XII intact bilaterally, moves all extremities, no focal motor deficits, no sensory deficits noted and deep tendon reflexes 2+ bilaterally Sensorium/orientation: alert Motor exam: strength 5/5 throughout and no movement abnormalities noted Other: strength 4/5 in RLE, 5/5 in LLE Psych Common normals: mental status grossly normal, thought process normal, cooperative, affect normal, speech normal and activity/motor behavior normal Speech: normal speech Thought process: normal thought process Results Additional Findings Additional findings: If on a controlled substance or opioids, I have checked an [place] report on this patient and there are no aberrancies noted in the prescribing history.??If on a controlled substance or opioid a drug screen was completed and reviewed within the last year, and if there has not been a drug screen completed we ordered one today to monitor higher risk, state monitored pain medication use. As part of providing excellent, safe, comprehensive care, the following was completed at our patient's visit: 1. A medication reconciliation and review to ensure accurate knowledge of current/active medications, including asking our patients to inform us about any [id number] medications or herbal remedies/nutritional supplements/alternative remedies. 2. A review to specifically ensure our patients have had annual screening for screening for depression, screening for tobacco use, and screening for unhealthy alcohol use. For concerning screenings had a discussion with the patient, provided patient education, and recommended follow-up with primary care provider when appropriate. If patient noted with a risk of falling, they received education on strength, gait, and balance training to prevent future risk of falling. Assessment and Plan Assessment and Plan (1) Lumbar stenosis with neurogenic claudication: (2) Post laminectomy syndrome: (3) Lumbar radiculopathy: (4) Lumbar stenosis: Qualifiers: Neurogenic claudication status: with neurogenic claudication Qualified Code(s): M48.062 - Spinal stenosis, lumbar region with neurogenic claudication (5) Muscle spasm: (6) Chronic prescription opiate use: Assessment and Plan: I feel these medications are improving the patient's quality of life and allow them to tolerate activities of daily living as well as participate in recreational activity.? The patient does not report intolerable side effects. The patient is NOT opioid naive and non-pharmacologic and non-opioid treatment has failed to significantly relieve the patient's pain and improve functionality. The patient has a diagnosis that is related to a somatic or visceral pain etiology. ? ?? I reviewed with the patient the potential risks and side effects with the use of? opioid medications including but not limited to respiratory depression,? sedation, and even . I verified the patient has access to naloxone should? these effects occur. I advised the patient to avoid the use of any other? sedation substances including alcohol, THC, and benzodiazepines while? taking opioid medications due to the risk of compounding side effects and? detrimental outcomes. I reviewed the [employer], pain treatment agreement, urine? drug screen, and opioid start talking forms. The patient was advised to let? their family know they had Naloxone in case they would need to administer? the medication.? The patient was advised that U.S. Food and Drug Administration (FDA) is warning that respiratory depression may occur in patients using gabapentin (Neurontin, Gralise, Horizant) or pregabalin (Lyrica, Lyrica CR) who have respiratory risk factors. These include the use of opioid pain medicines and other drugs that depress the central nervous system, and conditions such as chronic obstructive pulmonary disease (COPD) that reduce lung function. The elderly are also at higher risk.? A drug screen was completed within the last year, and no aberrancies were noted regarding their use of controlled substances. The patient understands they are subject to the terms and conditions of the pain contract that they have signed. ? ?? I have checked an [place]AR[place] report on this patient today and there are no aberrancies noted in the prescribing history.? Plan continue f/u with Dr Kruger pt has weaned to gabapentin 300mg QD, tolerating well continue percocet 5-325mg BID PRN moderate to severe pain at this time taking cyclobenzaprine 10mg daily PRN has completed 6 PT visits, does not plan on going back until seeing NS. recommended he trial TENS at next PT session f/u 3 months, sooner if needed
--- OUTSIDE RECORDS SUMMARY | 2024-05-28 08:29 | XMS_ITS | CCD ---
Author Organization [facility] Care Team Providers Care Community Service Officer Name Role Phone PHYSICIAN, DEFAULT Unavailable Unavailable [...] DEFRANCE, DR JULIO Primary Care Unavailable HALKER ., MYLENE Consulting Unavailable SOSA ., DR ROMERO Ruiz [...] Unavailable DEFRANCE, SUMANTH T Primary Care Unavailable MYACO NOLEN Referring Unavailable DEFRANCE, SUMANTH T Primary [...] Unavailable DEFRANCE, SUMANTH T Primary Care Unavailable IAN, CARL Attending Unavailable MINH HELLER Attending Unavailable DEFRANCE, SUMANTH T Referring Unavailable DEFRANCE, SUMANTH T Primary Care Unavailable DEFRANCE, SUMANTH T Primary Care Unavailable DEFRANCE, SUMANTH T Referring Unavailable DEFRANCE, SUMANTH T Primary Care Unavailable SOSA, CARL Referring Unavailable DEFRANCE, SUMANTH T Primary Care Unavailable SOSA, ACRL Referring Unavailable DEFRANCE, SUMANTH T Primary Care Unavailable SOSA, CARL Referring Unavailable DEFRANCE, SUMANTH T Primary Care Unavailable CARL SOSA Referring Unavailable [...] acetaminophen (TYLENOL EXTRA STRENGTH) tablet 1,000 mg acetaminophen 325 mg / oxyCODONE hydrochloride 5 mg oral tablet (16 sources) Opioid Agonist Start: 05-22-2024 Oxycodone-Acet aminophen Active TAB PO May 22, 2024 12:00am End: 12-27-2023 take 3 tablets by mouth three times daily oxyCODONE-acetaminophen (PERCOCET) 5-325 mg per tablet Take 3 tablets by mouth 3 (three) times a day. 0 12/27/2023 Discontinued (Stop Taking at Discharge) take 1 tablet by mk th every four hours as needed for pain oxyCODONE-acetaminophen (PERCOCET) 5-325 mg per tablet Take 1 tablet by mouth every 4 (four) hours as needed for pain. 0 Active Percocet Active B-complex with vitamin C tablet (2 sources) [...] Osteo Bi-Flex On e Per Day Active cyclobenzaprine hydrochloride 10 mg oral tablet (1 source) Muscle Relaxant Start: Cyclobenzaprine Active MG PO May 22, 2024 12:00am diclofenac sodium 75 mg delayed release oral tablet (17 sources) Nonsteroidal Anti-inflammatory Drug Start: take 75 mg by mouth twice daily [...] (Stop Taking at Discharge) Diclofenac Activ e Elderberry preparation (5 sources) Elderberry 500 M G as directed Orally Active gabapentin 300 mg oral capsule (11 sources) Anti-epileptic Agent Start: 05-22-2024 Gabapentin Active MG PO May 22, 2024 12:00am Start: 11-07-2023 take 1 capsule by mo uth twice daily gabapentin (NEURONTIN) 300 mg capsule TAKE 1 CAPSULE BY MOUTH TWICE A DAY 0 11/07/2023 Active Start: 11-07-2023 End: 12-27-2023 take 600 mg by mouth twice daily 600 mg, oral, 2 times daily, First dose on Sat12/25/23 at 2100, PACU & Post-op, Look-alike/sound-alike medication - verify indication for use. methocarbamol 500 mg oral tablet (3 sources) Muscle Relaxant Start: 12-26-2023 End: 01-10-2024 take 1 tablet by mouth three times daily as needed for muscle spasms methocarbamoL (ROBAXIN) 500 mg tablet Take 1 tablet (500 mg total) by mouth 3 (three) times a day as needed for muscle spasms for up to 14 days. 42 tablet 0 12/27/2023 01/10/2024 Active mv-min/folic/K1/lyco pen/lutein (CENTRUM SILVER MEN ORAL) (2 sources) take 1 tablet by mouth once daily mv-min/folic/K1/lyco pen/lutein (CENTRUM SILVER MEN ORAL) Take 1 tablet [...] Drug Class(es) Dates Sig (Normalized) Sig (Original) bisacodyl 10 mg rectal suppository (1 source) Stimulant Laxative Start: 12-27-2023 End: 12-27-2023 10 mg, rectal, As needed, constipation, if no BM within 6 hours of administering Milk of Magnesia, Starting on Sat12/27/23 at 0000, PACU & Post-op, Start Post-Op Day 2 Look-alike/sound-ali ke medication - verify indication for use. calcium [...] Take by mouth daily. 0 11/05/2023 Discontinued docusate sodium 50 mg / sennosides, fdc 8.6 mg oral tablet (1 source) Start: [...] When Creatinine Clearance 30 mL/min or greater Look-alike/sound-al charo medication - verify indication for use. 1 ml fentaNYL 0.05 mg/ml injection (1 source) Opioid Agonist Start: 12-25-2023 End: 12-25-2023 fentaNYL (SUBLIMAZE) injection 50 mcg fentaNYL (SUBLIMAZE) injection 12.5 mcg (1 source) Start: 12-25-2023 End: 12-27-2023 take 12.5 ug intravenously every hour as needed fentaNYL (SUBLIMAZE) injection 12.5 mcg glucagon (rdna) 1 mg injection (1 source) [...] 70 mg/dL after initial treatment, repeat treatment. glucosamine/chond r piña A sod (OSTEO BI-FLEX ORAL) (1 [...] Administer over 2-5 minutes. polyethylene glycol 3350 34228 mg powder for oral solution (1 source) [...] source) End: 12-27-2023 vit C/zinc citrate/elderberr y (Blazent ORAL) Take 1 Gum by mouth in [...] Onset: 04-03-2023 Episodic Other connective tissue disease (4 sources) Pain in left hand; Translations: [Pain in limb] Onset: 10-01-2022 Episodic Other connective tissue disease (4 sources) Impingement syndrome of right shoulder Episodic Other connective tissue disease (9 sources) Neurogenic claudication; Translations: [Other symptoms and signs involving the nervous system] Onset: 12-17-2023 11-14-2023 Episodic Other connective tissue disease (2 sources) Hand pain; Translations: [Pain in left hand] 01-27-2024 Episodic Other injuries and conditions due to [...] in right shoulder Episodic Residual codes; unclassified (2 sources) Unspecified [...] Onset: 12-20-2023 Episodic Other aftercare (1 source) longterm (current) use of 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; Translations: [longterm (current) use of 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] Onset: 12-20-2023 Episodic Other connective tissue disease (3 sources) Other symptoms and signs involving the nervous system; Translations: [Other symptoms and signs involving the nervous system] Onset: 11-14-2023 Episodic Other connective tissue disease (2 sources) Pain in right leg; Translations: [Pain in right leg] Onset: 02-12-2024 Episodic Other connective tissue disease (2 sources) Other symptoms and signs involving the musculoskeletal system; Translations: [Other symptoms and signs involving the musculoskeletal system] Onset: 02-12-2024 Episodic Other screening for suspected conditions (not mental disorders or infectious disease) (10 sources) Raised prostate specific antigen; Translations: [Elevated prostate specific antigen [PSA]] Onset: 10-09-2016 Resolved: 12-20-2023 01-21-2023 Episodic Other skin disorders (10 sources) Eruption; Translations: [Rash and other nonspecific skin eruption] Onset: 03-12-2017 Resolved: 12-20-2023 05-19-2020 Episodic Residual codes; unclassified (10 sources) Localized edema; Translations: [Localized edema] Onset: 02-08-2020 02-08-2020 Episodic Residual codes; unclassified (3 sources) Other specified postprocedural states; Translations: [Other specified postprocedural states] Onset: 02-12-2024 Episodic Spondylosis; intervertebral disc disorders; other back [...] 04-28-2024 PROSTATIC SPEC ANT <0.01 Normal 0.00-4.00 [facility] Comment on above: Result Comment: The method used for this test is Deejay Thrill On DXI chemiluminescent immunoassay. Values obtained by different assay methods cannot be used interchangeably. Performed By: #### 2 857-1 #### [facility] ([id number]) [address] [place] [address] XR SPINE LUMBAR 2 OR 3 VWSon [...] Granados MD on 04/24/2024 2:36 PM Normal [facility] MR LUMBAR SPINE WO CONTon MR LUMBAR [...] Matt Matute on 04/22/2024 2:10 PM Normal [facility] XR SPINE LUMB BENDING ONLY [...] Menjivar MD on 02/13/2024 2:22 PM Normal [facility] BASIC METABOLIC PANLon 12-27 Anion gap [Moles/Vol] 8 mmol/L Normal 5-15 [facility] Comment on above: Performed By: #### C TIP PÉREZ, , 97818-8 ####[facility] ([id number])[address], [address] [place] [address] Calcium [Mass/Vol] 9.2 mg/dL Normal 8.5-10.5 [facility] Comment on above: Performed By: #### C ELISA BMP, , 73534-2 ####[facility] ([id number])[address], [address] [place] [address] Chloride [Moles/Vol] 103 mmol/L Normal 98-109 [facility] Comment on above: Performed By: #### C BC, BMP, , ####[facility] ([id number])[address], [address], [place] [address] CO2 [Moles/Vol] 28 mmol/L Normal 22-32 [facility] Comment on above: Performed By: #### C TIP PÉREZ, , 47864-3 ####[facility] ([id number])[address], [address], [place] [address] Creatinine [Mass/Vol] 0.77 mg/dL Normal 0.60-1.30 [facility] Comment on above: Result Comment: METH OD TRACEABLE TO IDMS STANDARD Performed By: #### C TIP PÉREZ, , ####[facility] ([id number])[address], [address], [place] [address] eGFR (CKD-EPI) NON-RACE DEPENDENT >90 Normal >59 [facility] Comment on above: Result Comment: Reported eGFR is based on the CKD-EPI 2020 equation that does not use a race coefficient. Performed By: #### C TIP PÉREZ, , 75316-9 ####[facility] ([id number])[address], [place] [address] Glucose [Mass/Vol] 110 mg/dL High 65-99 [facility] Comment on above: Performed By: #### TIP CADET, , 27006-5 ####[facility] ([id number])[address] [facility], [place] [address] Potassium [Moles/Vol] 4.3 mmol/L Normal 3.5-5.0 [facility] Comment on above: Performed By: #### TIP CADET, , 43773-2 ####[facility] ([id number])[address], [address], [place] [address] Sodium [Moles/Vol] 139 mmol/L Normal 134-146 [facility] Comment on above: Performed By: #### C BC, BMP, 83411-5, 01528-3 ####[facility] ([id number])[address], [address] [place] [address] Urea nitrogen [Mass/Vol] 14 mg/dL Normal 5-27 [facility] Comment on above: Performed By: #### C BC, BMP, , 07341-1 ####[facility] ([id number])[address], [address], [place] [address] Basic Metabolic Panelon 12-06 Anion gap [Moles/Vol] [...] Hospital Comment on above: METHOD TRACEABLE TO IDMN STANDARD eGFR (CKD-EPI)non-race dependent - PINF [facility] Comment on above: Reported eGFR is based on the CKD-EPI 2020 equation that does not use a race coefficient. Glucose [Mass/Vol] 110 mg/dL High 65 - 99 mg/dL [facility] Interpretation and review of laboratory results Abnormal [facility] Potassium [Moles/Vol] 4.3 mmol/L [...] 36.3 % Low 39 - 49 % [facility] Hemoglobin (Bld) [Mass/Vol] 12.4 g/dL Low 13.0 - 17.0 g/dL [facility] Interpretation and review of laboratory results Abnormal [facility] MCH (RBC) [Entitic mass] 30.2 pg 27 - 34 pg [facility] MCHC (RBC) [Mass/Vol] 34.2 g/dL 32 - 36 g/dL [facility] MCV (RBC) [Entitic vol] 88 fL 80 - 100 fL [facility] Platelet mean volume (Bld) [Entitic vol] 7.2 fL 7 - 12 fL [facility] Platelets (Bld) [#/Vol] 243 10*3/uL [facility] RBC (Bld) [#/Vol] 4.12 10*6/uL [facility] WBC corrected for nucl RBC Auto (Bld) [#/Vol] 11.6 High [facility] named [facility] COMPLETE BLOOD COUNTon 12-27 Erythrocyte distribution width (RBC) [Ratio] 13.3 % Normal 11.5-15.0 [facility] Comment on above: Performed By: #### C ELISA, TIP, , 89903-6 ####[facility] ([id number])[address], [address] [place] [address] Hematocrit (Bld) [Volume fraction] 36.3 % Low 39-49 [facility] Comment on above: Performed By: #### C ELISA, TIP, , 58514-6 ####[facility] ([id number])[address], [address] [place] [address] Hemoglobin (Bld) [Mass/Vol] 12.4 g/dL Low 13.0-17.0 [facility] Comment on above: Performed By: #### C ELISA, TIP, , 09274-6 ####[facility] ([id number])[address], [address] [place] [address] MCH (RBC) [Entitic mass] 30.2 pg Normal 27-34 [facility] Comment on above: Performed By: #### C BC, BMP, , 12019-0 ####[facility] ([id number])[address] [facility], [place] [address] MCHC (RBC) [Mass/Vol] 34.2 g/dL Normal 32-36 [facility] Comment on above: Performed By: #### Sujey BC, BMP, , 92533-8 ####[facility] ([id number])[address], [address], [place] [address] MCV (RBC) [Entitic vol] 88 fL Normal 80-100 [facility] Comment on above: Performed By: #### Sujey BC, BMP, , 82874-3 ####[facility] ([id number])[address], [address], [place] [address] Platelet mean volume (Bld) [Entitic vol] 7.2 fL Normal 7-12 [facility] Comment on above: Performed By: #### Sujey PÉREZ, BMP, , 56243-9 ####[facility] ([id number])[address] [address] [place] [address] Platelets (Bld) [#/Vol] 243 10*3/uL Normal 150-450 [facility] Comment on above: Performed By: #### Sujey BC, BMP, , 84005-7 ####[facility] ([id number])[address], [address] [place] [address] RBC COUNT 4.12 X10E12/L Normal 4.10-5.70 [facility] Comment on above: Performed By: #### Sujey BC, BMP, , 40268-5 ####[facility] ([id number])[address] [address] [place] [address] WBC (Bld) [#/Vol] 11.6 10*3/uL High 4.0-11.0 [facility] Comment on above: Performed By: #### TIP CADET, , 07684-2 ####[facility] ([id number])[address], [address] [place] [address] ECG 12 leadon 12-27-2023 TRACEMASTERVUE [facility] Glucose Glucometer (BldC) [M ass/Vol]on 12-27-2023 Glucose [Mass/Vol] 98 mg/dL 65 - 99 mg/dL [facility] Glucose [Mass/Vol] 98 mg/dL Normal 65-99 [facility] MAGNESIUMon 12-27-2023 Magnesium [Mass/Vol] 1.9 mg/dL Normal 1.8-2.6 [facility] Comment on above: Performed By: #### TIP CADET, , 71217-5 ####[facility] ([id number])[address], [address] [place] [address] Magnesiumon 12-27-2023 Magnesium [Mass/Vol] 1.9 mg/dL 1.8 - 2.6 mg/dL [facility] No Panel Informationon 12-27 [facility] TROPONIN Ion 12-27-2023 Troponin I.cardiac [Mass/Vol] ng/mL Normal 0.00-0.04 [facility] Comment on above: Performed By: #### TIP CADET, , 04066-2 ####[facility] ([id number])[address], [address] [place] [address] Troponin Ion 12-27-2023 Troponin I.cardiac [Mass/Vol] ng/mL 0.00 - 0.04 ng/mL [facility] Troponin I.cardiac [Mass/Vol ]on 12-27-2023 [facility] BASIC METABOLIC PANLon 12-26 Anion gap [Moles/Vol] 9 mmol/L Normal 5-15 [facility] Comment on above: Performed By: #### C ELISA, BMP #### [facility] ([id number]) [address], [address] [place] [address] Calcium [Mass/Vol] 9.4 mg/dL Normal 8.5-10.5 [facility] Comment on above: Performed By: #### C ELISA, BMP #### [facility] ([id number]) [address], [address] [place] [address] Chloride [Moles/Vol] 106 mmol/L Normal 98-109 [facility] Comment on above: Performed By: #### C ELISA, BMP #### [facility] ([id number]) [address], [address] [place] [address] CO2 [Moles/Vol] 25 mmol/L Normal 22-32 [facility] Comment on above: Performed By: #### Sujey PÉREZ, BMP #### [facility] ([id number]) [address], [address] [place] [address] Creatinine [Mass/Vol] 0.63 mg/dL Normal 0.60-1.30 [facility] Comment on above: Result Comment: METH OD TRACEABLE TO IDMS STANDARD Performed By: #### Sujey PÉREZ, BMP #### [facility] ([id number]) [address], [address] [place] [address] eGFR (CKD-EPI) NON-RACE DEPENDENT >90 Normal >59 [facility] Comment on above: Result Comment: Reported eGFR is based on the CKD-EPI 2020 equation that does not use a race coefficient. Performed By: #### C ELISA, BMP #### [facility] ([id number]) [address], [address] [place] [address] Glucose [Mass/Vol] 140 mg/dL High 65-99 [facility] Comment on above: Performed By: #### Sujey PÉREZ, BMP #### [facility] ([id number]) [address], [address] [place] [address] Potassium [Moles/Vol] 4.6 mmol/L Normal 3.5-5.0 [facility] Comment on above: Performed By: #### C BC, BMP #### [facility] ([id number]) [address], [address] [place] [address] Sodium [Moles/Vol] 140 mmol/L Normal 134-146 [facility] Comment on above: Performed By: #### C ELISA, BMP #### [facility] ([id number]) [address], [address] [place] [address] Urea nitrogen [Mass/Vol] 17 mg/dL Normal 5-27 [facility] Comment on above: Performed By: #### Sujey PÉREZ, BMP #### [facility] ([id number]) [address], [address] [place] [address] Basic Metabolic Panelon 12-06 Anion gap [Moles/Vol] [...] Hospital Comment on above: METHOD TRACEABLE TO IDMS STANDARD eGFR (CKD-EPI)non-race dependent - PINF [facility] Comment on above: Reported eGFR is based on the CKD-EPI 2020 equation that does not use a race coefficient. Glucose [Mass/Vol] 140 mg/dL High 65 - 99 mg/dL [facility] Interpretation and review of laboratory results Abnormal [facility] Potassium [Moles/Vol] 4.6 mmol/L 3.5 - 5.0 mmol/L [facility] Sodium [Moles/Vol] 140 mmol/L 134 - 146 mmol/L [facility] Urea nitrogen [Mass/Vol] 17 mg/dL 5 - 27 mg/dL [facility] CBC without diffon Erythrocyte distribution width (RBC) [Ratio] 13.5 % 11.5 - 15.0 % [facility] Hematocrit (Bld) [Volume fraction] 37.5 % Low 39 - 49 % [facility] Hemoglobin (Bld) [Mass/Vol] 12.7 g/dL Low 13.0 - 17.0 g/dL [facility] Interpretation and review of laboratory results Abnormal [facility] MCH (RBC) [Entitic mass] 30.0 pg 27 [...] [facility] RBC (Bld) [#/Vol] 4.23 10*6/uL [facility] WBC corrected for nucl RBC Auto (Bld) [#/Vol] 12.6 High [facility] COMPLETE BLOOD COUNTon 12-26 Erythrocyte distribution width (RBC) [Ratio] 13.5 % Normal 11.5-15.0 [facility] Comment on above: Performed By: #### C ELISA, BMP #### [facility] ([id number]) [address], [address] [place] [address] Hematocrit (Bld) [Volume fraction] 37.5 % Low 39-49 [facility] Comment on above: Performed By: #### C ELISA, BMP #### [facility] ([id number]) [address], [address] [place] [address] Hemoglobin (Bld) [Mass/Vol] 12.7 g/dL Low 13.0-17.0 [facility] Comment on above: Performed By: #### Sujey PÉREZ, BMP #### [facility] ([id number]) [address], [address] [place] [address] MCH (RBC) [Entitic mass] 30.0 pg Normal 27-34 [facility] Comment on above: Performed By: #### C ELISA, BMP #### [facility] ([id number]) [address], [address] [place] [address] MCHC (RBC) [Mass/Vol] 33.9 g/dL Normal 32-36 [facility] Comment on above: Performed By: #### Sujey PÉREZ, BMP #### [facility] ([id number]) [address], [address] [place] [address] MCV (RBC) [Entitic vol] 89 fL Normal 80-100 [facility] Comment on above: Performed By: #### Sujey PÉREZ, BMP #### [facility] ([id number]) [address], [address] [place] [address] Platelet mean volume (Bld) [Entitic vol] 7.2 fL Normal 7-12 [facility] Comment on above: Performed By: #### Sujey PÉREZ, BMP #### [facility] ([id number]) [address], [address] [place] [address] Platelets (Bld) [#/Vol] 264 10*3/uL Normal 150-450 [facility] Comment on above: Performed By: #### Sujey PÉREZ, BMP #### [facility] ([id number]) [address], [address] [place] [address] RBC COUNT 4.23 X10E12/L Normal 4.10-5.70 [facility] Comment on above: Performed By: #### Sujey PÉREZ, BMP #### [facility] ([id number]) [address], [address] [place] [address] WBC (Bld) [#/Vol] 12.6 10*3/uL High 4.0-11.0 [facility] Comment on above: Performed By: #### C BC, BMP #### [facility] ([id number]) [address], [address] [place] [address] ABO Rh Repeaton 12-25-2023 ABO AB [facility] [...] Miguel Avelar on 12/25/2023 4:51 PM Normal [facility] RF Guidance for injection of Spine facet [...] jointOrdered By: José Miguel Avelar on 12-25-2023 [facility] Work Phone: Bacteria identified Cx Nom ( U)on 12-21-2023 Service comment (Unsp spec) [Interp] <10,000 ORGANISMS/ML NORMAL URO GENITAL CORINA Former[facility] named [facility] ABO Rh Repeaton 12-20-2023 ABO AB [facility] Rh Nom (Bld) Positive [facility] APTTon 12-20-2023 aPTT Coag (PPP) [Time] 31 s [facility] BASIC METABOLIC PANLon 12-20 Anion gap [Moles/Vol] 13 mmol/L Normal 5-15 [facility] Comment on above: Performed By: #### C BCA PINR, 89299-5, BMP #### [facility] ([id number]) [address], [address] [place] [address] Calcium [Mass/Vol] 10.1 mg/dL Normal 8.5-10.5 [facility] Comment on above: Performed By: #### C BCA, PINR, 05604-3, BMP #### [facility] ([id number]) [address], [address] [place] [address] Chloride [Moles/Vol] 103 mmol/L Normal 98-109 [facility] Comment on above: Performed By: #### C BCA, PINR, 19970-7, BMP #### [facility] ([id number]) [address], [address] [place] [address] CO2 [Moles/Vol] 25 mmol/L Normal 22-32 [facility] Comment on above: Performed By: #### C BCA, PINR, 86274-5, BMP #### [facility] ([id number]) [address], [address] [place] [address] Creatinine [Mass/Vol] 0.76 mg/dL Normal 0.60-1.30 [facility] Comment on above: Result Comment: METH OD TRACEABLE TO IDMS STANDARD Performed By: #### C ALEN, PINR, 23523-5, BMP #### [facility] ([id number]) [address], [address] [place] [address] eGFR (CKD-EPI) NON-RACE DEPENDENT >90 Normal >59 [facility] Comment on above: Result Comment: Reported eGFR is based on the CKD-EPI 2020 equation that does not use a race coefficient. Performed By: #### C ALEN, PINR, 22540-3, BMP #### [facility] ([id number]) [address], [address] [place] [address] Glucose [Mass/Vol] 85 mg/dL Normal 65-99 [facility] Comment on above: Performed By: #### C ALEN, PINR, 79812-8, BMP #### [facility] ([id number]) [address], [address] [place] [address] Potassium [Moles/Vol] 5.0 mmol/L Normal 3.5-5.0 [facility] Comment on above: Result Comment: SPEC IMEN HEMOLYZED, RESULTS INCREASED MODERATELY HEMOLYZED Performed By: #### C BCA, PINR, 20062-5, BMP #### [facility] ([id number]) [address], [address] [place] [address] Sodium [Moles/Vol] 141 mmol/L Normal 134-146 [facility] Comment on above: Performed By: #### C BCA, PINR, 52165-8, BMP #### [facility] ([id number]) [address], [address] [place] [address] Urea nitrogen [Mass/Vol] 20 mg/dL Normal 5-27 [facility] Comment on above: Performed By: #### C BCA, PINR, 25490-0, BMP #### [facility] ([id number]) [address], [address] [place] [address] Basic Metabolic Panelon 12-05 Anion gap [Moles/Vol] 13 mmol/L 5 - 15 mmol/L [facility] Calcium [Mass/Vol] 10.1 mg/dL 8.5 - 10. 5 mg/dL [facility] Chloride [Moles/Vol] 103 mmol/L 98 - 109 mmol/L [facility] CO2 [Moles/Vol] 25 mmol/L 22 - 32 mmol/L [facility] Creatinine [Mass/Vol] 0.76 mg/dL 0.60 - 1.30 mg/dL [facility] Comment on above: METHOD TRACEABLE TO IDMN STANDARD eGFR (CKD-EPI)non-race dependent - PINF [facility] Comment on above: Reported eGFR is based on the CKD-EPI 2020 equation that does not use a race coefficient. Glucose [Mass/Vol] 85 mg/dL 65 - 99 mg/dL [facility] Potassium [Moles/Vol] 5.0 mmol/L 3.5 - 5.0 mmol/L [facility] Comment on above: SPECIMEN HEMOLYZED, RESULTS INCREASED MODERATELY HEMOLYZED Sodium [Moles/Vol] 141 mmol/L 134 - 146 mmol/L [facility] Urea nitrogen [Mass/Vol] 20 mg/dL 5 - 27 mg/dL [facility] CBC AND AUTO DIFFon 12-20-19 ABSOLUTE BASOPHIL 0.1 X10E9/L Normal 0.0-0.2 [facility] Comment on above: Performed By: #### C ALEN PINR, 60004-1, BMP #### [facility] ([id number]) [address], [address] [place] [address] ABSOLUTE NEUTROPHIL 4.4 X10E9/L Normal 1.5-6.6 [facility] Comment on above: Performed By: #### C BCA, PINR, 44991-0, BMP #### [facility] ([id number]) [address], [address] [place] [address] Basophils/100 WBC (Bld) 0.9 % Normal [facility] Comment on above: Performed By: #### C ALEN PINR, 94383-8, BMP #### [facility] ([id number]) [address] [address] [place] [address] Eosinophils (Bld) [#/Vol] 0.2 10*3/uL Normal 0.0-0.4 [facility] Comment on above: Performed By: #### C ALEN PINR, 01309-9, BMP #### [facility] ([id number]) [address], [facility] [address] [place] [address] Eosinophils/100 WBC (Bld) 2.6 % Normal [facility] Comment on above: Performed By: #### C ALEN PINR, 97850-8, BMP #### [facility] ([id number]) [address] [address] [place] [address] Erythrocyte distribution width (RBC) [Ratio] 13.6 % Normal 11.5-15.0 [facility] Comment on above: Performed By: #### Sujey LOWRY PINR, 25009-3, BMP #### [facility] ([id number]) [address] [address] [place] [address] Hematocrit (Bld) [Volume fraction] 45.1 % Normal 39-49 [facility] Comment on above: Performed By: #### Sujey LOWRY PINR, 25145-0, BMP #### [facility] ([id number]) [address] [address] [place] [address] Hemoglobin (Bld) [Mass/Vol] 15.5 g/dL Normal 13.0-17.0 [facility] Comment on above: Performed By: #### C ALEN, PINR, 49214-1, BMP #### [facility] ([id number]) [address], [facility] [address] [place] [address] Lymphocytes (Bld) [#/Vol] 1.5 10*3/uL Normal 1.0-3.5 [facility] Comment on above: Performed By: #### C BUCKY LOWRY, 31008-7, BMP #### [facility] ([id number]) [address], [address] [place] [address] Lymphocytes/100 WBC (Bld) 21.7 % Normal [facility] Comment on above: Performed By: #### C BUCKY LOWRY, 75918-3, BMP #### [facility] ([id number]) [address], [address] [place] [address] MCH (RBC) [Entitic mass] 30.2 pg Normal 27-34 [facility] Comment on above: Performed By: #### C BUCKY LOWRY, 81612-4, BMP #### [facility] ([id number]) [address], [address] [place] [address] MCHC (RBC) [Mass/Vol] 34.4 g/dL Normal 32-36 [facility] Comment on above: Performed By: #### BUCKY Rm BCA, 73090-1, BMP #### [facility] ([id number]) [address], [address] [place] [address] MCV (RBC) [Entitic vol] 88 fL Normal 80-100 [facility] Comment on above: Performed By: #### BUCKY Rm BCA, 04416-7, BMP #### [facility] ([id number]) [address] [place] [address] Monocytes (Bld) [#/Vol] 1.0 10*3/uL High 0-0.9 [facility] Comment on above: Performed By: #### Sujey LOWRY PINR, 98811-4, BMP #### [facility] ([id number]) [address] [place] [address] Monocytes/100 WBC (Bld) 13.6 % Normal [facility] Comment on above: Performed By: #### Sujey LOWRY, PINR, 65199-7, BMP #### [facility] ([id number]) [address] [place] [address] Neutrophils/100 WBC (Bld) 61.2 % Normal [facility] Comment on above: Performed By: #### Sujey LOWRY, PINR, 95436-4, BMP #### [facility] ([id number]) [address], [facility] [address] [place] [address] Platelet mean volume (Bld) [Entitic vol] 7.8 fL Normal 7-12 [facility] Comment on above: Performed By: #### Sujey LOWRY, PINR, 06420-2, BMP #### [facility] ([id number]) [address], [facility] [address] [place] [address] Platelets (Bld) [#/Vol] 269 10*3/uL Normal 150-450 [facility] Comment on above: Performed By: #### Sujey LOWRY, PINR, 55919-0, BMP #### [facility] ([id number]) [address], [facility] [address] [place] [address] RBC COUNT 5.12 X10E12/L Normal 4.10-5.70 [facility] Comment on above: Performed By: #### Sujey LOWRY, PINR, 31477-4, BMP #### [facility] ([id number]) [address], [facility] [address] [place] [address] WBC (Bld) [#/Vol] 7.1 10*3/uL Normal 4.0-11.0 [facility] Comment on above: Performed By: #### Sujey LOWRY, PINR, 27805-1, BMP #### [facility] ([id number]) [address], [facility] [address] [place] [address] CBC auto differentialon 12-05 Basophils (Bld) [#/Vol] 0.1 10*3/uL [facility] Basophils/100 WBC (Bld) 0.9 % [facility] Eosinophils (Bld) [#/Vol] 0.2 10*3/uL [facility] Eosinophils/100 WBC (Bld) 2.6 % [facility] Erythrocyte distribution width (RBC) [Ratio] 13.6 % 11.5 - 15.0 % [facility] Hematocrit (Bld) [Volume fraction] 45.1 % 39 - 49 % [facility] Hemoglobin (Bld) [Mass/Vol] 15.5 g/dL 13.0 - 17.0 g/dL [facility] Interpretation and review of laboratory results Abnormal [facility] Lymphocytes (Bld) [#/Vol] 1.5 10*3/uL [facility] Lymphocytes/100 WBC (Bld) 21.7 % [facility] MCH (RBC) [Entitic mass] 30.2 pg 27 - 34 pg [facility] MCHC (RBC) [Mass/Vol] 34.4 g/dL 32 - 36 g/dL [facility] MCV (RBC) [Entitic vol] 88 fL 80 - 100 fL [facility] Monocytes (Bld) [#/Vol] 1.0 10*3/uL High [facility] Monocytes/100 WBC (Bld) 13.6 % [facility] Neutrophils (Bld) [#/Vol] 4.4 10*3/uL [facility] Neutrophils/100 WBC (Bld) 61.2 % [facility] Platelet mean volume (Bld) [Entitic vol] 7.8 fL 7 - 12 fL [facility] Platelets (Bld) [#/Vol] 269 10*3/uL [facility] RBC (Bld) [#/Vol] 5.12 10*6/uL [facility] WBC corrected for nucl RBC Auto (Bld) [#/Vol] 7.1 [facility] No Panel Informationon 12-20 [facility] PROTIME AND INRon 12-20-2023 INR Coag (PPP) [Relative time] 1.0 {INR} Normal 0.8-1.1 [facility] Comment on above: Performed By: #### C ALEN, PINR, 63901-0, BMP #### [facility] ([id number]) [address], [address] [place] [address] PT Coag (PPP) [Time] 11.3 s Normal 9.8-13.2 [facility] Comment on above: Performed By: #### C ALEN, PINR, 63685-1, BMP #### [facility] ([id number]) [address] [place] [address] Protime & INRon 12-20-2023 INR Coag (PPP) [Relative time] 1.0 {INR} [facility] PT Coag (PPP) [Time] 11.3 s [facility] Type and screenon 12-20-2023 ABO AB [facility] Rh Nom (Bld) Positive [facility] URINALYSISon 12-20-2023 Bilirubin Ql (U) Negative Normal NEG [facility] BLOOD/HGB Negative Normal NEG [facility] Color (U) YELLOW Normal YELLOW [facility] Glucose Ql (U) Negative Normal NEG [facility] Ketones Ql (U) Negative Normal NEG [facility] Leukocyte esterase Test strip Ql (U) Negative Normal NEG [facility] MUCOUS PRESENT Abnormal NONE [facility] Nitrite Ql (U) Negative Normal NEG [facility] pH (U) 6.0 [pH] Normal 5.0-8.5 [facility] Protein Ql (U) Trace Abnormal NEG [facility] R.B.CELLS 2 /hpf Normal 0-5 [facility] Specific gravity (U) [Rel density] 1.026 Normal 1.003-1.035 [facility] TURBIDITY CLEAR Normal CLEAR [facility] Urobilinogen (U) [Mass/Vol] mg/dL Normal <1.1 [facility] W.B.CELLS 2 /hpf Normal 0-5 [facility] URINE CULTUREon 12-20-2023 Bacteria identified Cx Nom (U) CULTURE RESULTS <10,000 ORGANISMS/ML NORMAL URO GENITAL CORINA Normal [facility] Comment on above: Performed By: #### 6 30-4 #### [facility] ([id number]) [address] [facility] [facility] [place] [address] Urinalysison 12-20-2023 Bilirubin Ql (U) Negative Negative^Ne ga tive [facility] Color (U) YELLOW YELLOW^YELLOW [facility] Glucose (U) [Mass/Vol] Negative Negative^Nega tive mg/dL [facility] Hemoglobin Auto test strip Ql (U) Negative Negative^Nega tive [facility] Interpretation and review of laboratory results Abnormal [facility] Ketones (U) [Mass/Vol] Negative Negative^Nega tive mg/dL [facility] Leukocyte esterase Auto test strip Ql (U) Negative Negative^Nega tive [facility] Mucus Ql (Urine sed) PRESENT Abnormal NONE^NONE [facility] Nitrite Auto test strip Ql (U) Negative Negative^Nega tive [facility] pH (U) 6.0 [pH] 5.0 - 8.5 [facility] Protein (U) [Mass/Vol] Trace Abnormal Negative^Nega tive mg/dL [facility] RBC Auto (Urine sed) [#/Area] 2 [facility] Specific gravity Refractometry automated (U) [Rel density] 1.026 1.003 - 1.035 [facility] Turbidity Ql (U) CLEAR CLEAR^CLEAR [facility] Urobilinogen Qn (U) NINF [facility] WBC Auto (Urine sed) [#/Area] 2 [facility] named [facility] aPTT Coag (PPP) [Time]on aPTT Coag (Bld) [Time] 31 s Normal 26-37 [facility] Comment on above: Performed By: #### C BCA, PINR, 01520-1, BMP #### [facility] ([id number]) [address] [facility] [place] [address] XR SPINE LUMB BENDING ONLY 2 -3 [...] Morrell MD on 11/16/2023 8:57 PM Normal [facility] MR LUMBAR SPINE WO CONTon MR LUMBAR [...] Ortega MD on 11/01/2023 10:24 AM Normal [facility] XR shoulder RT min 2V*on XR shoulder RT min 2V* [facility] [place] [address] [place] [address] XRay Report Signed Patient: Regan Green MR#: [id number] 65 : 1950 Acct:[id number] Age/Sex: 73 / M ADM Date: 06/24/23 Loc: [facility] Room: Type: [facility] Attending Dr: Charity Barkley MD Copies to: [...] Artie Goldsmith M.D.06/24/2023 12:37 PM Dictation Location: [place] [address] Transcribed By: [facility] 06/24/23 1237 Dictated By: Artie Goldsmith DO 06/24/23 1236 Signed By: 06/24/23 1237 [facility] XR hand LT min 3V*on 023 XR hand LT min 3V* [facility] [place] [address] [place] [address] XRay Report Signed Patient: Regan Green MR#: [id number] 65 : 1950 Acct:[id number] Age/Sex: 73 / M ADM Date: 05/21/23 Loc: [facility] Room: Type: [facility] Attending Dr: Charity Barkley MD Copies to: [...] Vigil Jr., DLeonidesOLeonides05/21/2023 1:53 PM Dictation Location: [facility]-12 Transcribed By: ELIZABETH 05/21/23 135 Dictated By: Regan Vigil Jr, DO 05/21/23 135 Signed By: 05/21/23 135 [facility] Covid-19 PCR (CVDTBH)on SARS-CoV-2 (COVID-19) RNA YASMIN+probe Ql (Unsp spec) Not detected Normal NOT DETECTED [facility] Comment on above: Result Comment: This test is not yet approved or cleared by the [place] FDA. When there are no FDA-approved or cleared tests available, and other criteria are met, FDA can make tests available under an emergency access mechanism called an Emergency Use Authorization (EUA). The EUA for this test is supported by the Home Agent of Health and Human Service's (HHS's) declaration [...] consistent with SARS-CoV-2. Performed By: #### C [facility] #### [facility] [address] [place] [address] Dr. Keely Fitzgerald MRI Shoulder w/o Lefton -2 MRI Shoulder w/o Left HISTORY: Lifting injury. [...] by Boogie Modi on 02/23/2022 1229 Normal [facility] Sales Floor Team Member Brenna 04-28-2021 CNPN Telephone (UROLMN) REGAN GREEN ([id number]) 1950 M Date Time Provider Department 04/28/21 OZZY PEREZ During your visit today, we recorded the following information about you: Blaire [facility] 04/28/2021 10:08 AM Signed PSA order mailed [...] Status:Closed by BLAIRE BUENO on 04/28/21 Normal [facility] PELVIS 1 OR 2 VWSon 04-16-20 18 PELVIS 1 OR 2 [facility]WS [facility] [id number] [place] [address] ========Patient Name: REGAN GREEN : 1950ex: MAge: Race: WhiteMRN: [id number]. Location: 84Patient Status: OVisit #: [id number] Date: 04/16/2018 9:20:00 AMCompleted Date: 04/16/2018 09:18 AMRequesting Provider: BILLY KILLIAN Attending Provider: BILLY KILLIAN Report Copy To: Signs & Symptoms: M46.1 Sacroiliitis, not elsewhere classified C44Nznrdzz: AthenaComments: , , , Ordering Provider - BILLY KILLIAN MD , Exam: PELVIS 1 OR 2 VWSAccession #: [id number] PELVIS 1 OR 2 VWS 04/16/2018 9:18 [...] fracture Electronically signed by:Lea Le. Transcribed by: [email or web address], User Resident: Electronically Signed by: LEA LE @ 04/16/2018 10:35 AM Normal [facility] Comment on above: Order Comment: , [...] mass index (BMI) [Ratio] 29.39 kg/m2 [facility] [address] [place] [address] 12-20-2023 14:20-0500 Body temperature 97.7 [degF] [facility] [address] [place] [address] 12-20-2023 14:20-0500 Body weight 98.3 kg [facility] 12-20-2023 14:20-0500 Diastolic blood pressure 84 mm[Hg] [facility] [address] [place] [address] 12-20-2023 14:20-0500 Heart rate 77 /min [facility] [address] [place] [address] 12-20-2023 14:20-0500 Respiratory rate 18 /min [facility] [address] [place] [address] 12-20-2023 14:20-0500 SaO2% (BldA) [Mass fraction] 97 % [facility] [address] [place] [address] 12-20-2023 14:20-0500 Systolic blood pressure 132 mm[Hg] [facility] [address] [place] [address] 11-14-2023 09:59-0500 Body height 180.3 cm Carl Sosa EXAMINATION SUPERVISOR-LAUNDRY AIDE Work Phone: [facility] 11-14-2023 09:59-0500 Body mass index (BMI) [Ratio] 29.57 kg/m2 Carl Sosa EXAMINATION SUPERVISOR-LAUNDRY AIDE Work Phone: [facility] 11-14-2023 09:59-0500 Body weight 96.16 kg Carl Sosa EXAMINATION SUPERVISOR-LAUNDRY AIDE Work Phone: [facility] 11-14-2023 09:59-0500 Diastolic blood pressure 86 mm[Hg] Carl Sosa EXAMINATION SUPERVISOR-LAUNDRY AIDE Work Phone: [facility] 11-14-2023 09:59-0500 Heart rate 81 /min Carl Sosa EXAMINATION SUPERVISOR-LAUNDRY AIDE Work Phone: [facility] 11-14-2023 09:59-0500 Systolic blood pressure 135 mm[Hg] Carl Sosa EXAMINATION SUPERVISOR-LAUNDRY AIDE Work Phone: [facility] 05-21-2023 10:00-0400 Body height 182.88 cm Charity Barkley Other [employer] Other 05-21-2023 10:00-0400 Body mass index (BMI) [Ratio] 30.51 kg/m2 Charity Barkley Other [employer] Other 05-21-2023 10:00-0400 Body weight 102.06 kg Charity Barkley Other [employer] Other Encounters Encounter Date Encounter Type Care Provider Facility Start: 05-22-2024 End: 05-22-2024 ambulatory [facility] Work Phone: Start: 05-22-2024 End: 05-22-2024 Patient encounter procedure [facility] Work Phone: Start: 05-12-2024 ambulatory [facility] Start: 04-28-2024 End: 04-28-2024 ambulatory MINH HELLER [facility] Start: 04-27-2024 End: 05-04-2024 ambulatory [facility] Start: 04-23-2024 End: 04-23-2024 ambulatory [facility] Start: 04-23-2024 End: 04-23-2024 ambulatory [facility] Start: 04-21-2024 End: 04-21-20[facility] Start: 04-06-2024 End: 05-04-2024 ambulatory [facility] Start: 03-04-2024 End: 04-04-2024 ambulatory [facility] Start: 02-14-2024 End: 03-04-2024 ambulatory [facility] Start: 02-12-2024 End: 02-12-2024 [facility] Start: 01-29-2024 End: 01-29-2024 ambulatory [facility] Work Phone: Start: 01-29-2024 End: 01-29-2024 Patient encounter procedure [facility] Work Phone: Start: 12-28-2023 End: 12-28-2023 ambulatory MARIA M Tee [facility] Start: 12-25-2023 End: 12-28-2023 ambulatory [facility] Start: 12-25-2023 End: 12-27-2023 ambulatory [facility] Start: 12-25-2023 End: 12-27-2023 Subsequent hospital visit by physician Mayco Nolen MD Work Phone: [facility] Comment on above: Radiculopathy, lumba r region; Neurogenic claudication Start: 12-24-2023 Telephone encounter [facility] Comment on above: surgery Start: 12-20-2023 Telephone encounter [facility] Start: 12-20-2023 End: 12-20-2023 Patient encounter procedure Shalom Regan Provider 9 [facility] Comment on above: Radiculopathy, lumba r region; Neurogenic claudication; Monitoring for anticoagulant use; Abnormal urine findings Start: 12-20-2023 End: 12-20-2023 ambulatory [facility] Start: 12-18-2023 Documentation procedure Jasmin Noriega EXAMINATION SUPERVISOR-LAUNDRY AIDE Work Phone: [facility] Start: 12-10-2023 Telephone encounter Myrtle Hatch LPN [facility] Comment on above: surgery Start: 12-05-2023 End: 01-03-2024 ambulatory [facility] Start: 11-27-2023 Telephone encounter [facility] Start: 11-22-2023 End: 12-05-2023 ambulatory [facility] Start: 11-18-2023 End: 11-19-2023 ambulatory Rosales Corona MD Facility:[facility] Start: 11-14-2023 End: 11-14-2023 ambulatory [facility] Start: 11-14-2023 End: 11-14-2023 Office outpatient new 45 minutes Carl Overton EXAMINATION SUPERVISOR-LAUNDRY AIDE Work Phone: [facility] Comment on above: Neurogenic claudicat ion (Primary Dx); Lumbar radiculopathy, chronic Start: 11-14-2023 End: 11-14-[address] [facility] Start: 11-05-2023 Telephone encounter Dolores Rm MA [facility] Comment on above: Er Follow-up Lumbar radiculopathy , chronic (Primary Dx) Start: 11-01-2023 End: 11-01-2023 ambulatory [facility] Start: 10-31-2023 End: 10-31-2023 Emergency department patient visit [facility] Start: 10-30-2023 End: 10-30-2023 ambulatory Charity Barkley Other [employer] Other Start: 10-30-2023 Office outpatient vi sit 15 minutes Charity Barkley [facility] Start: 10-22-2023 End: 10-23-2023 Emergency department patient visit MAEVE COTA [facility] Start: 08-20-2023 End: 08-20-2023 ambulatory Charity Barkley Other [employer] Other Start: 08-20-2023 Office outpatient vi sit 15 minutes Charity Calvey [facility] Start: 07-23-2023 End: 07-23-2023 ambulatory Charity Calvey Other [facility] [employer] Other Start: 07-23-2023 Office outpatient vi sit 15 minutes Charity Calvey [facility] Start: 06-24-2023 Office outpatient vi sit 15 minutes Charity Calvey [facility] Start: 06-24-2023 End: 06-24-2023 ambulatory NON STAFF Facility:[facility] Start: 06-24-2023 End: 06-24-2023 ambulatory NON STAFF [facility] Work Phone: Start: 06-24-2023 End: 06-24-2023 Patient encounter procedure MD Charity Barkley Work Phone: [facility] Start: 05-21-2023 Office outpatient ne w 30 minutes Charityzafar Barkley [facility] Start: 05-21-2023 End: 05-21-2023 ambulatory Charity R Filippo [facility] Work Phone: Start: 05-21-2023 End: 05-21-2023 Patient encounter procedure MD Charity Barkley Work Phone: [facility] Start: 03-19-2023 End: 03-20-2023 ambulatory NARENDRANATH LAKSHMIPATHY . Facility:[facility] Start: 02-21-2023 End: 02-22-2023 ambulatory NARENDRANATH LAKSHMIPATHY . Facility:[facility] Start: 12-18-2022 End: 12-19-[address] ROMERO SOSA . Facility:[facility] Start: 11-22-2022 End: 11-23-[address] ROMERO SOSA . Facility:[facility] Start: 10-11-2022 Encounter for preprocedural laboratory examination DR ROMERO SOSA . [facility] Start: 10-09-2022 End: 10-09-[address] ROMERO SOSA . Facility:[facility] Start: 10-05-2022 End: 10-06-[address] ROMERO SOSA . Facility:[facility] Start: 10-05-2022 End: 10-06-2022 Encounter for preprocedural laboratory examination DR ROMERO SOSA . Facility:[facility] Start: 10-01-2022 Encounter for preprocedural cardiovascular examination ISELA SALMERON . [facility] Start: 09-26-2022 End: 09-27-2022 ambulatory ISELA SALMERON . Facility:[facility] Start: 09-26-2022 End: 09-27-2022 Encounter for preprocedural cardiovascular examination ISELA SALMERON . Facility:[facility] Start: 09-20-2022 End: 09-21-[address] ROMERO SOSA . Facility:[facility] Start: 08-02-2022 End: 08-03-[address] ROMERO SOSA . Facility:[facility] Start: 07-17-2022 End: 07-17-[address] ROMERO OSSA . Facility:[facility] Start: 06-14-2022 End: 06-15-[address] ROMERO SOSA . Facility: Start: 04-16-2018 End: 04-17-2018 Ambulatory BILLY KILLIAN Facility:[facility] Start: 01-28-2018 End: 01-29-2018 Ambulatory DEFAULT PHYSICIAN Facility:[facility] Procedures Date Procedure Procedure Detail Performing Clinician Start: 04-23-2024 Follow-up visit Follow-up MAYCO NOLEN Start: 12-27-2023 Ecg routine ecg w/le ast 12 lds trcg only w/o i&r Christina Varma EXAMINATION SUPERVISOR-LAUNDRY AIDE Work Phone: Start: 12-27-2023 End: 12-27-2023 Basic metabolic panel calcium total Christina Varma EXAMINATION SUPERVISOR-LAUNDRY AIDE Work Phone: Start: 12-26-2023 Basic metabolic pane l calcium total Christina Varma EXAMINATION SUPERVISOR-LAUNDRY AIDE Work Phone: Start: 12-25-2023 Fluor needle/cath spine/paraspinal [...] 07-29-2023 Adult depression scr eening assessment Dolores Justin [facility] Start: 06-24-2023 Plain X-ray of right shoulder [...] procedure 08/11/2024 9:00 AM EDT Office Visit [facility] [address] [place] [phone] Sumanth Hill MD [address] [place], [place] [phone] [facility] Start: 07-30-2024 End: 07-30-2024 Patient encounter procedure 07/30/2024 8:30 AM EDT Office Visit [facility] [address] [phone] Sumanth Hill MD [address] [place], [place] [phone] [facility] Start: 07-29-2024 Depression Screening Depression Scre ening [facility] Start: 07-29-2024 Medicare Annual Well ness Visit Medicare Annual Wellness Visit [facility] Start: 04-21-2024 End: 04-21-2024 Patient encounter procedure 04/21/2024 1:45 PM EDT Office Visit [facility] [address] [place] [address] [facility] [place] [address] Minh Heller MD [address] [place] [phone] [facility] Start: 02-13-2024 End: 02-13-2024 Patient encounter procedure 02/13/2024 1:50 PM EDT Office Visit [facility] [address] [place] [phone] Mayco Nolen MD [address] [place] [phone] [facility] Start: 12-25-2023 End: 12-25-2023 Admission to same day surgery center 12/25/2023 2:45 PM EST - 12/25/2023 4:45 PM EST Surgery [facility] [address] [place] [phone] Mayco Nolen MD [address] [place] [address] [address] [place] [phone] LAMINECTOMY LUMBAR MULTI LEVEL / L2-L5 [facility] Comment on above: LAMINECTOMY LUMBAR M ULTI LEVEL / L2-L5 Start: 12-25-2023 End: 12-25-2023 LAMINECTOMY LUMBAR MULTI LEVEL [facility] Start: 12-25-2023 Subsequent hospital visit by physician 12/25/2023 2:45 PM EST Hospital Encounter [facility] [address] [place] [phone] Mayco Nolen MD [address] [place] [address] [address] [place] [phone] [facility] Start: 12-06-2023 End: 12-06-2023 Patient encounter procedure 12/06/2023 7:00 AM EST Appointment [facility] [address] [place] [phone] [facility] Start: 11-14-2023 End: 11-14-2024 XR Lumbar spine Views AP W right bending and W left bending [facility] Work Phone: Comment on above: Expected: 11/14/2023 [...] Immunization Date Immunization Notes Care Provider Fa cilikaela 08-20-2022 Influenza, High-dose , Quadrivalent Dolores [facility] 04-26-2022 influenza, injectabl e, quadrivalent, preservative free Dolores [facility] 09-18-2021 influenza, injectabl e, quadrivalent, preservative free Dolores [facility] 07-20-2020 Influenza, High-dose , Quadrivalent Dolores [facility] 08-11-2019 influenza, high dose seasonal, preservative-free Dolores [facility] 08-11-2019 pneumococcal polysaccharide vaccine, 23 valent Dolores [facility] 07-31-2018 influenza, injectabl e, quadrivalent, preservative free Dolores [facility] 11-20-2017 influenza, seasonal, injectable, preservative free Dolores [facility] 11-20-2017 pneumococcal conjuga te vaccine, 13 valent Dolores [facility] 08-19-2013 pneumococcal polysaccharide vaccine, 23 valent Dolores [facility] 05-29-2013 zoster vaccine, live Dolores [facility] 05-29-2013 zoster vaccine, unspecified formulation Dolores [facility] 08-18-2012 influenza virus vacc ine, whole virus Dolores [facility] 08-13-2012 pneumococcal polysaccharide vaccine, 23 valent Dolores [facility] 08-13-2012 zoster vaccine, live Dolores [facility] 09-03-2011 influenza virus vacc ine, whole virus Dolores [facility] 09-11-2010 influenza virus vacc ine, whole virus Dolores [facility] 08-22-2009 influenza virus vacc ine, whole virus Dolores [facility] Payers Date Payer Category Payer Worker's Compensation [id number] 2023 Self-pay [id number] 2023 Unknown [id number] 2019 Unknown 2017 Medicare [id number] 1959 Medicare [id number] 1959 Unknown [id number] 1959 Unknown [id number] 1952 Unknown [id number] 2.16.840.1.492275.3.579.2.593 1952 Unknown [id number] 2.16.840.1.029421.3.579.2.593 1952 Unknown [id number] 2.16.840.1.684128.3.579.2.593 1952 Unknown [id number] 2.16.840.1.509872.3.579.2.593 1952 Unknown [id number] 2.16.840.1.735813.3.579.2.593 1952 Unknown [id number] 2.16.840.1.353137.3.579.2.593 1952 Unknown [id number] 2.16.840.1.231521.3.579.2.593 1952 Unknown [id number] 2.16.840.1.012222.3.579.2.593 1952 Unknown [id number] 2.16.840.1.222140.3.579.2.593 1952 Unknown [id number] 2.16.840.1.291151.3.579.2.593 1952 Unknown [id number] 2.16.840.1.678877.3.579.2.593 1952 Unknown [id number] 2.16.840.1.709101.3.579.2. 1952 Unknown [id number] 2.16.840.1.145748.3.579.2.1285 1952 Unknown [id number] 2.16.840.1.750149.3.579.2.1285 1952 Unknown [id number] 2.16.840.1.138190.3.579.2.1285 1952 Unknown [id number] 2.16.840.1.993844.3.579.2.1285 1952 Unknown [id number] 2.16.840.1.409093.3.579.2.1285 1952 Unknown [id number] 2.16.840.1.709278.3.579.2.1285 1952 Unknown [id number] 2.16.840.1.180941.3.579.2.1285 1952 Unknown [id number] 2.16.840.1.784131.3.579.2.1285 1952 Unknown [id number] 2.16.840.1.770551.3.579.2.1285 1952 Unknown [id number] 2.16.840.1.535393.3.579.2.1285 1952 Unknown [id number] 2.16.840.1.382916.3.579.2.1285 1952 Unknown [id number] 2.16.840.1.953466.3.579.2.1285 1952 Unknown [id number] 2.16.840.1.120218.3.579.2.1285 1952 Unknown [id number] 2.16.840.1.994320.3.579.2.1285 1952 Unknown [id number] 2.16.840.1.060941.3.579.2.12852 Unknown [id number] 2.16.840.1.060338.3.579.2.1285 1952 Unknown [id number] 2.16.840.1.029336.3.579.2.1285 1952 Unknown [id number] 2.16.840.1.608597.3.579.2.1285 1952 Unknown [id number] 2.16.840.1.305230.3.579.2.1285 1952 Unknown [id number] 2.16.840.1.097246.3.579.2.1285 1952 Unknown [id number] 2.16.840.1.696878.3.579.2.1285 1952 Unknown [id number] 2.16.840.1.199367.3.579.2.1285 1952 Unknown [id number] 2.16.840.1.564707.3.579.2.1285 1952 Unknown [id number] 2.16.840.1.512040.3.579.2.1285 1952 Unknown [id number] 2.16.840.1.073468.3.579.2.1286 Unknown [facility] [id number] Unknown [id number] 2.16.840.1.065345.3.579.2.531 Unknown [id number] 2.16.840.1.931480.3.579.2.531 Social History Date Type Detail Facility Unknown if ever smoked [facility] Work Phone: Start: 12-01-2019 End: 12-15-2020 Sex Assigned At [facility] [employer] Other Start: 1950 Sex Assigned At Male [facility] Start: 01-17-2023 End: 12-20-2023 Tobacco smoking status NHIS Ex-smoker [facility] History of tobacco use Current smoker [facility] History of tobacco use Cigarette Smoker P [facility] Start: 01-17-2023 End: 12-20-2023 Tobacco use and exposure Smokeless tobacco non-user [facility] Start: 10-31-2023 End: 12-26-2023 Alcohol intake Current drinker of alcohol (finding) [facility] Start: 12-01-2019 End: 12-15-2020 History of Social function [facility] Frequency of Alcohol Consumption 4 or more times a week [facility] Start: 01-17-2023 Alcohol Comment socially [facility] Start: 1950 Sex Assigned At Not on file P [facility] Start: 11-07-2018 Tobacco smoking stat us NHIS Never smoked tobacco (finding) [facility] Medical Equipment Procedure Code Equipment Code Equipment Origin al Text Equipment Identifier Dates Patch Dura 1x1in Drmtrx-Onlay + Clgn Rgnrt Membr Strl [facility] [id number] - [id number] Start: 12-25-2023 Goals Date Patient Goal [...] wheelchair with . documented in this encounter [facility] BTC[facility]sx 12-27-2023 Plan of care note Problem: Pain Goal: Patient goal is pain score less than 4, able to rest, and participant in treatment plan as appropriate Description: INTERVENTIONS: 1. Encourage patient or legal employee representative to report early pain and ask [...] per policy 9. Teach patient or legal employee representative interventions for comforting 12/27/2023 1259 by [...] at the bedside 7. Instruct patient/ patient employee representative about use of safety devices 8. Include patient/ patient employee representative in decisions related to safety 12/27/2023 [...] hygiene technique 7. Identify and instruct patient/patient employee representative in use of appropriate isolation precautions for identified infection/symptoms 8. Provide and discuss with patient/patient employee representative on educational MDRO sheet 9. Encourage and monitor nutritional status daily and consult legislative director if indicated 10. Implement neutropenic guidelines as [...] care ongoing. Problem: Knowledge Deficit Goal: Patient/patient employee representative demonstrates understanding of disease process, treatment [...] Score of =/> 25 or indicated by [facility] Assessment Goal: Patient should be free from fall Description: Interventions: 1. Paguate to environment 2. Hourly rounds addressing the [...] non-skid footwear 11. Teach patient and patient employee representative to maintain environment for safety and [...] (cane, walker) within reach 19. Request patient employee representative bring adaptive equipment/mobility aids from home or obtain and provide as needed 20. Consult pharmacy regarding effects of med's affecting mobility, cognition, and alternatives 21. Obtain physician order for PT if risk factors associated with mobility are present 22. Obtain physician order for OT as appropriate 23. Utilize diversional activities 24. Educate patient and patient employee representative how to maintain a safe environment during visitation times (notify nurse prior to leaving bedside) 25. Consider appropriateness of medical or non-medical billing associate 26. Set up voiding schedule as appropriate [...] progress towards goal: Plan of care ongoing. [facility] 12-27-2023 Miscellaneous Notes Problem: Pain Goal: Patient goal is pain score less than 4, able to rest, and participant in treatment plan as appropriate Description: INTERVENTIONS: 1. Encourage patient or legal employee representative to report early pain and ask [...] per policy 9. Teach patient or legal employee representative interventions for comforting 12/27/2023 1259 by [...] at the bedside 7. Instruct patient/ patient employee representative about use of safety devices 8. Include patient/ patient employee representative in decisions related to safety 12/27/2023 [...] hygiene technique 7. Identify and instruct patient/patient employee representative in use of appropriate isolation precautions for identified infection/symptoms 8. Provide and discuss with patient/patient employee representative on educational MDRO sheet 9. Encourage and monitor nutritional status daily and consult legislative director if indicated 10. Implement neutropenic guidelines as [...] care ongoing. Problem: Knowledge Deficit Goal: Patient/patient employee representative demonstrates understanding of disease process, treatment [...] Score of =/> 25 or indicated by [facility] Assessment Goal: Patient should be free from fall Description: Interventions: 1. Paguate to environment 2. Hourly rounds addressing the [...] non-skid footwear 11. Teach patient and patient employee representative to maintain environment for safety and [...] (cane, walker) within reach 19. Request patient employee representative bring adaptive equipment/mobility aids from home or obtain and provide as needed 20. Consult pharmacy regarding effects of med's affecting mobility, cognition, and alternatives 21. Obtain physician order for PT if risk factors associated with mobility are present 22. Obtain physician order for OT as appropriate 23. Utilize diversional activities 24. Educate patient and patient employee representative how to maintain a safe environment during visitation times (notify nurse prior to leaving bedside) 25. Consider appropriateness of medical or non-medical billing associate 26. Set up voiding schedule as appropriate [...] Description: INTERVENTIONS: 1. Encourage patient or legal employee representative to report early pain and ask [...] per policy 9. Teach patient or legal employee representative interventions for comforting Outcome: Progressing Note: [...] at the bedside 7. Instruct patient/ patient employee representative about use of safety devices 8. Include patient/ patient employee representative in decisions related to safety Outcome: [...] hygiene technique 7. Identify and instruct patient/patient employee representative in use of appropriate isolation precautions for identified infection/symptoms 8. Provide and discuss with patient/patient employee representative on educational MDRO sheet 9. Encourage and monitor nutritional status daily and consult legislative director if indicated 10. Implement neutropenic guidelines as needed 11. Review exposure to history of communicable disease and recent travel history on admission 12. Encourage annual influenza vaccine 13. Encourage pneumonia vaccine Outcome: Progressing Note: Evaluation of progress towards goal: Patient denies fever. No purulent drainage noted at site. Plan of care ongoing. Problem: Knowledge Deficit Goal: Patient/patient employee representative demonstrates understanding of disease process, treatment [...] Score of =/> 25 or indicated by [facility] Assessment Goal: Patient should be free from fall Description: Interventions: 1. Paguate to environment 2. Hourly rounds addressing the [...] non-skid footwear 11. Teach patient and patient employee representative to maintain environment for safety and [...] (cane, walker) within reach 19. Request patient employee representative bring adaptive equipment/mobility aids from home or obtain and provide as needed 20. Consult pharmacy regarding effects of med's affecting mobility, cognition, and alternatives 21. Obtain physician order for PT if risk factors associated with mobility are present 22. Obtain physician order for OT as appropriate 23. Utilize diversional activities 24. Educate patient and patient employee representative how to maintain a safe environment during visitation times (notify nurse prior to leaving bedside) 25. Consider appropriateness of medical or non-medical billing associate 26. Set up voiding schedule as appropriate [...] Description: INTERVENTIONS: 1. Encourage patient or legal employee representative to report early pain and ask [...] per policy 9. Teach patient or legal employee representative interventions for comforting Outcome: Progressing Note: [...] at the bedside 7. Instruct patient/ patient employee representative about use of safety devices 8. Include patient/ patient employee representative in decisions related to safety Outcome: [...] hygiene technique 7. Identify and instruct patient/patient employee representative in use of appropriate isolation precautions for identified infection/symptoms 8. Provide and discuss with patient/patient employee representative on educational MDRO sheet 9. Encourage and monitor nutritional status daily and consult legislative director if indicated 10. Implement neutropenic guidelines as needed 11. Review exposure to history of communicable disease and recent travel history on admission 12. Encourage annual influenza vaccine 13. Encourage pneumonia vaccine Outcome: Progressing Note: Evaluation of progress towards goal: patient free from s/s of infection Problem: Knowledge Deficit Goal: Patient/patient employee representative demonstrates understanding of disease process, treatment [...] Score of =/> 25 or indicated by [facility] Assessment Goal: Patient should be free from fall Description: Interventions: 1. Paguate to environment 2. Hourly rounds addressing the [...] non-skid footwear 11. Teach patient and patient employee representative to maintain environment for safety and [...] (cane, walker) within reach 19. Request patient employee representative bring adaptive equipment/mobility aids from home or obtain and provide as needed 20. Consult pharmacy regarding effects of med's affecting mobility, cognition, and alternatives 21. Obtain physician order for PT if risk factors associated with mobility are present 22. Obtain physician order for OT as appropriate 23. Utilize diversional activities 24. Educate patient and patient employee representative how to maintain a safe environment during visitation times (notify nurse prior to leaving bedside) 25. Consider appropriateness of medical or non-medical billing associate 26. Set up voiding schedule as appropriate [...] Description: INTERVENTIONS: 1. Encourage patient or legal employee representative to report early pain and ask [...] per policy 9. Teach patient or legal employee representative interventions for comforting Outcome: Progressing Note: [...] at the bedside 7. Instruct patient/ patient employee representative about use of safety devices 8. Include patient/ patient employee representative in decisions related to safety Outcome: [...] hygiene technique 7. Identify and instruct patient/patient employee representative in use of appropriate isolation precautions for identified infection/symptoms 8. Provide and discuss with patient/patient employee representative on educational MDRO sheet 9. Encourage and monitor nutritional status daily and consult legislative director if indicated 10. Implement neutropenic guidelines as needed 11. Review exposure to history of communicable disease and recent travel history on admission 12. Encourage annual influenza vaccine 13. Encourage pneumonia vaccine Outcome: Progressing Note: Evaluation of progress towards goal: Patient is being monitored for s/sx of infection. Problem: Knowledge Deficit Goal: Patient/patient employee representative demonstrates understanding of disease process, treatment [...] Score of =/> 25 or indicated by [facility] Assessment Goal: Patient should be free from fall Description: Interventions: 1. Paguate to environment 2. Hourly rounds addressing the [...] non-skid footwear 11. Teach patient and patient employee representative to maintain environment for safety and [...] (cane, walker) within reach 19. Request patient employee representative bring adaptive equipment/mobility aids from home or obtain and provide as needed 20. Consult pharmacy regarding effects of med's affecting mobility, cognition, and alternatives 21. Obtain physician order for PT if risk factors associated with mobility are present 22. Obtain physician order for OT as appropriate 23. Utilize diversional activities 24. Educate patient and patient employee representative how to maintain a safe environment during visitation times (notify nurse prior to leaving bedside) 25. Consider appropriateness of medical or non-medical billing associate 26. Set up voiding schedule as appropriate [...] 6 Clicks: Basic Mobility Raw Score: 18 [facility] G Code Modifier: CK Therapy Plan Need for skilled Physical Therapy to address deficits in functional mobility due to a status decline resulting from recent admit on 12/25/23 with planned lumbar laminectomy at L2-L5 d/t radiculopathy of lumbar region. Past Medical History: Diagnosis Date Cancer of prostate ([facility]) 2017 prostatectomy Diverticulitis Diverticulosis Fecal impaction ([facility]) Inflammation of sacroiliac joint ([facility]) Knee pain Low back pain Lumbar disc disorder Neurogenic claudication 12/17/2023 Osteoarthritis SBO (small bowel obstruction) ([facility]) 10/04/2023 Shingles UTI (urinary tract infection) Varicose veins of right lower extremity with pain 02/08/2020 Visual impairment 12/20/2023 Past Surgical History: Procedure Laterality Date ABDOMINAL ADHESION SURGERY COLONOSCOPY COLONOSCOPY N/A 03/25/2023 Performed by Matt Campbell DO at [facility] HERNIA REPAIR Left inguinal HIP SURGERY Left LAMINECTOMY LUMBAR MULTI LEVEL / L2-L5 N/A 12/25/2023 Performed by Mayco Nolen MD at [facility] PROSTATE BIOPSY PROSTATECTOMY REVISION TOTAL KNEE [...] pass Equipment: RW, gait belt, wound drain Telemetry/Machine Packaging Technician: Yes Oxygen Used: room air Other: fall [...] Patient will perform bed mobility with Modified [place] Dates: Start: 12/26/23 Expected End: 01/24/24 Description: Goal Description: with proper BUE placement and sequencing Disciplines: PT Problem: Gait Dates: Start: 12/26/23 Disciplines: PT Goal: Patient will perform gait with Modified [place] Dates: Start: 12/26/23 Expected End: 01/24/24 Description: With__RW__,__150__feet Goal Description: with proper gait pattern and safety awareness Disciplines: PT Problem: Stairs/Curb Dates: Start: 12/26/23 Disciplines: PT Goal: Patient will perform stairs/curb with Modified [place] Dates: Start: 12/26/23 Expected End: 01/24/24 Description: [...] Goal: Patient will perform transfers with Modified [place] Dates: Start: 12/26/23 Expected End: 01/24/24 Description: [...] Description: INTERVENTIONS: 1. Encourage patient or legal employee representative to report early pain and ask [...] per policy 9. Teach patient or legal employee representative interventions for comforting Outcome: Progressing Note: [...] hygiene technique 7. Identify and instruct patient/patient employee representative in use of appropriate isolation precautions for identified infection/symptoms 8. Provide and discuss with patient/patient employee representative on educational MDRO sheet 9. Encourage and monitor nutritional status daily and consult legislative director if indicated 10. Implement neutropenic guidelines as [...] Kerrison punches. I then checked with a Mari[employer] elevator and confirmed that there was no [...] Nolen MD - Primary Assistants: None Staff: New Order Clerk Primary: Lily Glasgow RN New Order Clerk Relief: Dina Roy RN Scrub Person: Janak [...] Inferior;Midline Back Accordion (Active) Drainage Appearance Bloody 02/22/24 0445 Output (mL) 50 mL 12/26/23444 Implants: Implant Name Type Inv. Item Serial No. Motion Picture Set Up Worker Lot No. LRB No. Used Action PATCH DURA 1X1IN DRMTRX-ONLAY + CLGN RGNRT MEMBR STRL RPL [id number] - [id number] Graft PATCH DURA 1X1IN DRMTRX-ONLAY + CLGN RGNRT MEMBR STRL RPL [id number] PAULINA [employer] [id number] N/A 1 Implanted Estimated Blood Loss: 100 [...] from the original note were not included. [facility] [address] [place] [address], [address] [place] [address] * NEUROSURGERY DISCHARGE SUMMARY Patient: Regan Green Date of : 1950 Acct: [id number] Primary Care Physician: Sumanth Hill MD Admit [...] mg EC tablet Commonly known as: [facility]lim HEALTH ORAL OSTEO BI-FLEX ORAL oxyCODONE-acetaminophen 5-325 mg per tablet Commonly known as: PERCOCET tiZANidine 4 mg tablet Commonly known as: ZANAFLEX Where to Get Your Medications These medications were sent to [facility] [id number] [address] [facility] [address] [facility] [address] methocarbamoL 500 mg tablet naloxone 4 mg/actuation [...] acceptable and clinically appropriate. JOSEMANUEL L[facility] Patient Touch 12/27/23 12:28 PM JOSEMANUEL [...] remove at that time. Other Instructions: Call [facility] Neurosurgery with any questions, . The following attachments cannot be sent through Care Everywhere.Radiculopathy Discharge Instructions (Indonesian)documented in this encounter [facility] 12-27-2023 Plan of care note Problem: Pain Goal: Patient goal is pain score less than 4, able to rest, and participant in treatment plan as appropriate Description: INTERVENTIONS: 1. Encourage patient or legal employee representative to report early pain and ask [...] per policy 9. Teach patient or legal employee representative interventions for comforting Outcome: Progressing Note: [...] at the bedside 7. Instruct patient/ patient employee representative about use of safety devices 8. Include patient/ patient employee representative in decisions related to safety Outcome: [...] hygiene technique 7. Identify and instruct patient/patient employee representative in use of appropriate isolation precautions for identified infection/symptoms 8. Provide and discuss with patient/patient employee representative on educational MDRO sheet 9. Encourage and monitor nutritional status daily and consult legislative director if indicated 10. Implement neutropenic guidelines as needed 11. Review exposure to history of communicable disease and recent travel history on admission 12. Encourage annual influenza vaccine 13. Encourage pneumonia vaccine Outcome: Progressing Note: Evaluation of progress towards goal: Patient denies fever. No purulent drainage noted at site. Plan of care ongoing. Problem: Knowledge Deficit Goal: Patient/patient employee representative demonstrates understanding of disease process, treatment [...] Score of =/> 25 or indicated by [facility] Rehab Assessment Goal: Patient should be free from fall Description: Interventions: 1. Paguate to environment 2. Hourly rounds addressing the [...] non-skid footwear 11. Teach patient and patient employee representative to maintain environment for safety and [...] (cane, walker) within reach 19. Request patient employee representative bring adaptive equipment/mobility aids from home or obtain and provide as needed 20. Consult pharmacy regarding effects of med's affecting mobility, cognition, and alternatives 21. Obtain physician order for PT if risk factors associated with mobility are present 22. Obtain physician order for OT as appropriate 23. Utilize diversional activities 24. Educate patient and patient employee representative how to maintain a safe environment during visitation times (notify nurse prior to leaving bedside) 25. Consider appropriateness of medical or non-medical billing associate 26. Set up voiding schedule as appropriate [...] progress towards goal: Plan of care ongoing. [facility] 12-27-2023 Progress note Formatting of t his note is different from the original. Physical Therapy CANCEL - Deferred Per RN pt is dizzy and diaphoretic laying supine in bed. Will hold PT treatment and attempt to complete session as able. [facility] 12-27-2023 History of Present illness Narrative Images from the original note were not included. [facility] [address] [place] [address], [address] [place] [address] * NEUROSURGERY DAILY PROGRESS NOTE DATE:12/27/2023 PATIENT'S [...] - Home later today JOSEMANUEL Lainez Neurosurgery [facility] Patient Touch 12/27/23 6:04 AM To find out which ESTEFANY is on for the day please go to Spotjournal and use log in Tech[employer]ils and search for PTH Neurosurgery JOSEMANUEL Sandoval 12/26/23 1010 JOSEMANUEL Sandoval 12/27/23 1228 Images from the original note were not included. [facility] [address] [place] [address], [place] [address] * NEUROSURGERY DAILY PROGRESS NOTE DATE:12/26/2023 PATIENT'S [...] later vs in AM JOSEMANUEL Lainez Neurosurgery [facility] Patient Touch 12/26/23 9:51 AM To find out which ESTEFANY is on for the day please go to Spotjournal and use log in Tech[employer]ils and search for PTH Neurosurgery JOSEMANUEL Sandoval 12/26/23 1010 documented in this encounter [facility] 12-27-2023 Plan of care note Problem: Pain Goal: Patient goal is pain score less than 4, able to rest, and participant in treatment plan as appropriate Description: INTERVENTIONS: 1. Encourage patient or legal employee representative to report early pain and ask [...] per policy 9. Teach patient or legal employee representative interventions for comforting Outcome: Progressing Note: [...] at the bedside 7. Instruct patient/ patient employee representative about use of safety devices 8. Include patient/ patient employee representative in decisions related to safety Outcome: [...] hygiene technique 7. Identify and instruct patient/patient employee representative in use of appropriate isolation precautions for identified infection/symptoms 8. Provide and discuss with patient/patient employee representative on educational MDRO sheet 9. Encourage and monitor nutritional status daily and consult legislative director if indicated 10. Implement neutropenic guidelines as needed 11. Review exposure to history of communicable disease and recent travel history on admission 12. Encourage annual influenza vaccine 13. Encourage pneumonia vaccine Outcome: Progressing Note: Evaluation of progress towards goal: patient free from s/s of infection Problem: Knowledge Deficit Goal: Patient/patient employee representative demonstrates understanding of disease process, treatment [...] Score of =/> 25 or indicated by [facility] Assessment Goal: Patient should be free from fall Description: Interventions: 1. Paguate to environment 2. Hourly rounds addressing the [...] non-skid footwear 11. Teach patient and patient employee representative to maintain environment for safety and [...] (cane, walker) within reach 19. Request patient employee representative bring adaptive equipment/mobility aids from home or obtain and provide as needed 20. Consult pharmacy regarding effects of med's affecting mobility, cognition, and alternatives 21. Obtain physician order for PT if risk factors associated with mobility are present 22. Obtain physician order for OT as appropriate 23. Utilize diversional activities 24. Educate patient and patient employee representative how to maintain a safe environment during visitation times (notify nurse prior to leaving bedside) 25. Consider appropriateness of medical or non-medical billing associate 26. Set up voiding schedule as appropriate [...] goal: patient maintaining body alignment per self [facility] [employer] [facility] 12-26-2023 Plan of care note Problem: Pain Goal: Patient goal is pain score less than 4, able to rest, and participant in treatment plan as appropriate Description: INTERVENTIONS: 1. Encourage patient or legal employee representative to report early pain and ask [...] per policy 9. Teach patient or legal employee representative interventions for comforting Outcome: Progressing Note: [...] at the bedside 7. Instruct patient/ patient employee representative about use of safety devices 8. Include patient/ patient employee representative in decisions related to safety Outcome: [...] hygiene technique 7. Identify and instruct patient/patient employee representative in use of appropriate isolation precautions for identified infection/symptoms 8. Provide and discuss with patient/patient employee representative on educational MDRO sheet 9. Encourage and monitor nutritional status daily and consult legislative director if indicated 10. Implement neutropenic guidelines as needed 11. Review exposure to history of communicable disease and recent travel history on admission 12. Encourage annual influenza vaccine 13. Encourage pneumonia vaccine Outcome: Progressing Note: Evaluation of progress towards goal: Patient is being monitored for s/sx of infection. Problem: Knowledge Deficit Goal: Patient/patient employee representative demonstrates understanding of disease process, treatment [...] be free from fall Description: Interventions: 1. Paguate to environment 2. Hourly rounds addressing the [...] non-skid footwear 11. Teach patient and patient employee representative to maintain environment for safety and [...] (cane, walker) within reach 19. Request patient employee representative bring adaptive equipment/mobility aids from home or obtain and provide as needed 20. Consult pharmacy regarding effects of med's affecting mobility, cognition, and alternatives 21. Obtain physician order for PT if risk factors associated with mobility are present 22. Obtain physician order for OT as appropriate 23. Utilize diversional activities 24. Educate patient and patient employee representative how to maintain a safe environment during visitation times (notify nurse prior to leaving bedside) 25. Consider appropriateness of medical or non-medical billing associate 26. Set up voiding schedule as appropriate [...] towards goal: Patient maintains proper anatomical alignment. 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..] Patient will perform bed mobility with Modified [place] Dates: Start: 12/26/23 Expected End: 01/24/24 Description: Goal Description: with proper BUE placement and sequencing Disciplines: PT Problem: Gait Dates: Start: 12/26/23 Disciplines: PT Goal: Patient will perform gait with Modified [place] Dates: Start: 12/26/23 Expected End: 01/24/24 Description: With__RW__,__150__feet Goal Description: with proper gait pattern and safety awareness Disciplines: PT Problem: Stairs/Curb Dates: Start: 12/26/23 Disciplines: PT Goal: Patient will perform stairs/curb with Modified [place] Dates: Start: 12/26/23 Expected End: 01/24/24 Description: [...] Goal: Patient will perform transfers with Modified [place] Dates: Start: 12/26/23 Expected End: 01/24/24 Description: Goal Description: with proper BUE placement and sequencing Disciplines: PT Physical Therapy Care Plan (Resolved) There are no resolved problems. Principal Problem: Radiculopathy, lumbar region Active Problems: Neurogenic claudication [facility] 12-26-2023 Progress note Formatting of t [...] smoking, drinking alcohol or doing illciit drugs. [facility] 12-26-2023 Plan of care note Problem: Pain Goal: Patient goal is pain score less than 4, able to rest, and participant in treatment plan as appropriate Description: INTERVENTIONS: 1. Encourage patient or legal employee representative to report early pain and ask [...] per policy 9. Teach patient or legal employee representative interventions for comforting Outcome: Progressing Note: [...] hygiene technique 7. Identify and instruct patient/patient employee representative in use of appropriate isolation precautions for identified infection/symptoms 8. Provide and discuss with patient/patient employee representative on educational MDRO sheet 9. Encourage and monitor nutritional status daily and consult legislative director if indicated 10. Implement neutropenic guidelines as [...] of progress towards goal: progressing with walker [facility] [employer] [facility] 12-25-2023 Procedure note NEUROSURGERY OPERATIVE NOTE [...] Kerrison punches. I then checked with a [place] elevator and confirmed that there was no [...] room with stable vital signs. Complications: None. [facility] [employer] 12-25-2023 Procedure note Brief Post-op Note NAME: Regan Green : 1950 PROCEDURE DATE: 12/25/2023 Surgeon: Surgeon(s) and Role: * Mayco Nolen MD - Primary Assistants: None Staff: New Order Clerk Primary: Lily Glasgow RN New Order Clerk Relief: Dina Roy RN Scrub Person: Janak [...] Inferior;Midline Back Accordion (Active) Drainage Appearance Bloody 12/26/235 Output (mL) 50 mL 12/26/23 0445 Implants: Implant Name Type Inv. Item Serial No. Motion Picture Set Up Worker Lot No. LRB No. Used Action PATCH DURA 1X1IN DRMTRX-ONLAY + CLGN RGNRT MEMBR STRL RPL [id number] - [id number] Graft PATCH DURA 1X1IN DRMTRX-ONLAY + CLGN RGNRT MEMBR STRL RPL [id number] PAULINA CRANIOMAXILLOFACIAL [id number] N/A 1 Implanted Estimated Blood Loss: 100 ml OB Surgical Procedure Blood Loss: Anesthesia EBL: * No values recorded between 12/25/2023 3:09 PM and 12/25/2023 4:54 PM * OB QBL: * No values recorded between 12/25/2023 3:09 PM and 12/25/2023 4:54 PM * Condition: stable Findings: severe lateral recess stenosis [facility] 12-25-2023 Attending History and physical note HISTORY AND PHYSICAL INTERVAL NOTE: Regan Green 1950 [id number] H&P reviewed. The patient was examined and there are no changes to the H&P. Mayco Nolen MD Source Note - JOSEMANUEL Daniels - 12/20/2023 6:12 PM EST Letter to pain management seeking clarification on post operative pain medications. JOSEMANUEL Jackson [facility] Contact via patient touch 12/20/23 6:21 PM To find out which ESTEFANY is on for the day please go to Spotjournal and use log in TechDevils and search for PTH Neurosurgery (ESTEFANY and Phone Number is listed) JOSEMANUEL Daniels 12/20/23 1821 JOSEMANUEL Daniels 12/25/23 1330 [facility] 12-25-2023 History and physical note HISTORY AND PHYSICAL INTERVAL NOTE: Regan Green 1950 [id number] H&P reviewed. The patient was examined and there are no changes to the H&P. Mayco Nolen MD Source Note - JOSEMANUEL Daniels - 12/20/2023 6:12 PM EST Letter to pain management seeking clarification on post operative pain medications. JOSEMANUEL Jackson [facility] Contact via patient touch 12/20/23 6:21 PM To find out which ESTEFANY is on for the day please go to Spotjournal and use log in TechDevils and search for PTH Neurosurgery (ESTEFANY and [...] 73 y.o. White or male, presents to [facility] for a pre-surgical H&P. The patient has [...] Medical History: Diagnosis Date Cancer of prostate ([facility]) 2017 prostatectomy Diverticulitis Diverticulosis Fecal impaction ([facility]) Inflammation of sacroiliac joint ([facility]) Knee pain Low back pain Lumbar disc disorder Neurogenic claudication 12/17/2023 Osteoarthritis SBO (small bowel obstruction) ([facility]) 10/04/2023 Shingles UTI (urinary tract infection) Varicose veins of right lower extremity with pain 02/08/2020 Visual impairment 12/20/2023 PAST SURGICAL HISTORY: Past Surgical History: Procedure Laterality Date ABDOMINAL ADHESION SURGERY COLONOSCOPY COLONOSCOPY N/A 03/25/2023 Performed by Matt Campbell DO at [facility] HERNIA REPAIR Left inguinal HIP SURGERY [...] the most recent lab values available in [facility] at the time of the office visit. PAT labs are pending per surgeon. ASSESSMENT / DIAGNOSIS: Linked DX: Radiculopathy, lumbar region [M54.16] PLAN: Regan Green is scheduled for Linked Case Date: 12/25/2023 Linked Surgeon: Forrest Nolen MD Linked Surgery: Laminectomy Lumbar Multi Level / L2-L5. JOSEMANUEL Santoyo 12/20/23 1511 [facility] 12-20-2023 History and physical note PRE-ADMISSION TESTING HISTORY AND PHYSICAL EXAM DATE: 12/20/23 PCP: Sumanth Hill MD CHIEF COMPLAINT: back pain HISTORY OF PRESENT ILLNESS: Regan Green, a 73 y.o. White or male, presents to [facility] for a pre-surgical H&P. The patient has [...] Medical History: Diagnosis Date Cancer of prostate ([facility]) 2017 prostatectomy Diverticulitis Diverticulosis Fecal impaction ([facility]) Inflammation of sacroiliac joint ([facility]) Knee pain Low back pain Lumbar disc disorder Neurogenic claudication 12/17/2023 Osteoarthritis SBO (small bowel obstruction) ([facility]) 10/04/2023 Shingles UTI (urinary tract infection) Varicose veins of right lower extremity with pain 02/08/2020 Visual impairment 12/20/2023 PAST SURGICAL HISTORY: Past Surgical History: Procedure Laterality Date ABDOMINAL ADHESION SURGERY COLONOSCOPY COLONOSCOPY N/A 03/25/2023 Performed by Matt Campbell DO at [facility] HERNIA REPAIR Left inguinal HIP SURGERY [...] the most recent lab values available in [facility] at the time of the office visit. PAT labs are pending per surgeon. ASSESSMENT / DIAGNOSIS: Linked DX: Radiculopathy, lumbar region [M54.16] PLAN: Regan Green is scheduled for Linked Case Date: 12/25/2023 Linked Surgeon: Forrest Nolen MD Linked Surgery: Laminectomy Lumbar Multi Level / L2-L5. JOSEMANUEL Santoyo 12/20/23 1511 documented in this encounter [facility] 12-20-2023 Instructions Antnoia Rosario RN - 12/20/2023 1:45 PM EST Your surgery/procedure is scheduled at [facility] on 12/25 at 2:45 Arrival Time 12:45 [facility] Address: [address] [place] [address] Park in P1 Parking lot located on [facility]. Report to the Entrance B. Check in at the information desk the surgery. The waiting room located on the second floor. If you have any questions prior to surgery, please call Pre-Admission Clinic at [phone] between 7:30 am and 4:30 pm Saturday through Saturday. If you have questions the morning of surgery, please call the Pre-op Department at [phone]. Notify your SURGEON if you develop any [...] would like to schedule therapy at a [facility] facility, please call [phone] ([phone]). Do not use lotions, creams, powders, perfume, make up, cologne or after-shaves day of surgery. Remove ALL jewelry including wedding rings, body piercings,hair extensions that contain metal, nail chilean, make-up, and contact lens. You may brush [...] RIGHTS AND RESPONSIBILITIES As a patient at [facility], you have the right to: Receive medical care and be informed of who is taking care of you Be treated with dignity and respect Have a family member/employee representative of choice and your physician notified of your admission Receive information and actively participate in decisions about your care and treatment Refuse care, treatment and services Decide who may provide your support and speak for you Access yazidi and spiritual services Participate in ethical issues [...] of hospital charges and payment methods Patient/patient employee representative responsibilities are to: Provide information about [...] 10/04/23 no acute pulmonary pathology JOSEMANUEL Jackson [facility] Contact via patient touch 12/21/23 6:10 AM To find out which ESTEFANY is on for the day please go to Spotjournal and use log in TechDevils and search for PTH Neurosurgery (ESTEFANY and Phone Number is listed) JOSEMANUEL Daniels 12/25/23 0795 documented in this encounter [facility] 12-10-2023 Miscellaneous Notes Regan calls into [...] have to speak with Dr. Nolen manager portable about surgery. Patient transferred to Dr. Nolen manager portable. documented in this encounter [facility] 12-10-2023 Telephone encounter Note Regan calls [...] have to speak with Dr. Nolen manager portable about surgery. Patient transferred to Dr. Nolen manager portable. [facility] 11-27-2023 Miscellaneous Notes Kenneth left a [...] from the original note were not included. [facility] [address] [place] [address], [place] [address] * CHART NOTE ? 11/14/2023 Patient: Regan Green 1950 [id number] Nurse Practitioner: Carl Sosa LAUNDRY AIDE Physician: Mayco Nolen MD, FAANS CHIEF COMPLAINT [...] He was seen by [facility] in [place], but was advised they could no longer help. He has not had any interventional pain procedures, but was seen at [facility] in [place], [place], but was advised he should be seen here first. Patient's imaging was discussed and reviewed to their understanding in office today. Patient has not yet exhausted all conservative measures of treatment and is agreeable to them namely CHANTELLE. Denies loss of bar captain strength, saddle anesthesia, urinary or bowel dysfunction, [...] Medical History: Diagnosis Date Carcinoma of prostate ([facility]) Diverticulitis Diverticulosis Fecal impaction ([facility]) Inflammation of sacroiliac joint ([facility]) Knee pain Low back pain Lumbar disc disorder Osteoarthritis Shingles UTI (urinary tract infection) Visual impairment PAST SURGICAL HISTORY Past Surgical History: Procedure Laterality Date ABDOMINAL ADHESION SURGERY COLONOSCOPY COLONOSCOPY N/A 03/25/2023 Performed by Matt Campbell DO at [facility] HERNIA REPAIR Left inguinal HIP SURGERY [...] Right achilles 2+ Left achilles 2+ Right bar captain 2+ Left bar captain 2+ Right Mack reflex absent and left [...] visible abscess or suspicious gas within the [id number] Close clinical follow-up and short-term progress repeat [...] but was seen at [facility] in [place], [place], but was advised he should be [...] record of the patient encounter. Inadvertent computerized cam maker errors related to syntax, spelling, homophones, and/or inaudibility may be present. Scribe Statement: Scribed for and in the presence of JOSEMANUEL Kirk by Joshua Higginbotham. JOSEMANUEL Kirk 11/14/23 1630 documented in this encounter [facility] 11-14-2023 Instructions AINSLEY Szymanski - 11/14/2023 [...] Outcome: Contacted Patient Name of ED Facility: [facility] Date of ED Discharge: 10/31/2023 Discharge [...] with additional concerns. documented in this encounter [facility] 11-05-2023 Telephone encounter Note ED Outreach This documentation is being used for Transition of Care purposes: Yes/No: Yes ED Outreach Date: November 05, 2023 ED Outreach Method: COMMUNICATION METHOD: Telephone ED Outreach Attempt: first ED Outreach Outcome: Contacted Patient Name of ED Facility: [facility] Date of ED Discharge: 10/31/2023 Discharge [...] will contact the office with additional concerns. [facility] 10-30-2023 Evaluation note Encounter Date Diagnosis Assessment [...] pain of right shoulder (ICD-10 - M25.511) [employer] Other 12-19-2023 NoteCT LUMBAR SPINE WO CONT [...] abscess or suspicious gas visible within the [id number]. Repeat contrast abdominal pelvic CT may prove useful in combination with colonic screening with appropriate Probable parapelvic cysts in the left kidney Prominent vascular calcifications There is some metal artifact related to a prior surgery at the left acetabular region. There are also clips in the low pelvis as seen on the woodwind instrument repairer image Sagittal images include from the lower [...] visible abscess or suspicious gas within the kajej-tt-[id number] Close clinical follow-up and short-term progress repeat abdominal pelvic contrast CT and colonic screening considered There is also be severe degenerative change of the lumbar spine and relatively severe canal and neural foraminal stenosis probably greatest at L3-4 and L4-5 levels There is no compression deformity or destructive bone process Finalized by Renaldo Tinajero MD on 10/22/2023 1:09 [facility] 08-20-2023 Evaluation note* Encounter Date Diagnosis Assessment [...] pain of right shoulder (ICD-10 - M25.511) [facility] 09-19-2023 Evaluation note* Encounter Date Diagnosis [...] pain of right shoulder (ICD-10 - M25.511) [facility] 08-21-2023 Evaluation note* Encounter Date Diagnosis [...] pain of right shoulder (ICD-10 - M25.511) [facility] 07-18-2023 Evaluation note* Encounter Date Diagnosis [...] given order for occupational therapy and braces [facility] 05-16-2023 NoteCONSULTATION CONSULTATION DATE: 03/19/2023 TO: [...] our patients to inform us about any tvty-vmw-cniibok medications or herbal remedies/nutritional supplements/alternative remedies. 2. [...] treatment options with their primary care provider.[facility] [id number] Note CONSULTATION PROCEDURE DATE: 02/21/2023 PROCEDURE: Right [...] removed. He was discharged after meeting criteriaThe [facility] [id number] NoteCONSULTATION CONSULTATION DATE: 12/18/2022 CHIEF COMPLAINT: Left [...] would like to proceed. CC: Sumanth Hill M.D.[facility]02-14-2023 NoteCONSULTATION PROCEDURE DATE: 12/18/2022 PREOPERATIVE DIAGNOSIS: Osteoarthritis [...] will be followed up in the office.[facility] [id number] NoteCONSULTATION CONSULTATION DATE: 11/22/2022 HISTORY OF PRESENT [...] food. We will send a referral to [facility] to have his left CMC joint evaluated. Patient does agree with this, and we will follow him up in the clinic in three months' time.[facility] [id number] NotePROCEDURE: XR HAND LT MIN 3V HISTORY: [...] authenticated by: ALESSANDRO MEJIA Date: 2022-09-26 22:39[facility] [id number] NoteCONSULTATION CONSULTATION DATE: 09/20/2022 HISTORY OF PRESENT [...] mg t.i.d., Percocet 5/325 b.i.d., multivitamin and Fnmxl-Xe-Nlyg. Patient, procedure-holloway, had radiofrequency ablation of his [...] to the clinic thereafter for follow up.[facility] [id number] NoteCONSULTATION CONSULTATION DATE: 08/02/2022 HISTORY OF PRESENT [...] of care and all questions were answered.[facility] [id number] NoteCONSULTATION CONSULTATION DATE: 06/14/2022 This is a [...] and Achilles reflexes are +2. DIAGNOSIS: Code [facility] is 724.6. PLAN: We will authorize for a left SI joint injection, refill his Percocet 5/325 b.i.d. and refill Diclofenac 50 mg t.i.d. He is compliant with his vitamin regimen. At this time, I reiterated the use of heat and stretches. The patient will be followed in the clinic post-procedure and agrees to move forward.[facility] CenterEvaluation noteNo assessment information available [facility] Work Phone: Evaluation note* Diagnosis Lumbar radiculopathy, chronic- Primary [facility] Neurogenic claudication- Primary Spinal stenosis of lumbar region Lumbar radiculopathy, chronic [facility] Radiculopathy, lumbar region Thoracic or [...] of lumbar region [facility] Radiculopathy, lumbar region- Primary Thoracic or lumbosacral neuritis or radiculitis, unspecified Radiculopathy, lumbar region Thoracic or lumbosacral neuritis or radiculitis, unspecified Neurogenic claudication Spinal stenosis of lumbar region Neurogenic claudication Spinal stenosis of lumbar region [facility] Diagnosis Onset Date Resolution Status Left hand pain acute 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, left hand acute [facility] Work Phone: History general Narrative - Reported* Type Description Date Medical History post knee right replacement Surgical History knee replacement right Surgical History hernia Surgical History prostatectomy Surgical History acetabulum fx Hospitalization History see above [facility] Other InstructionsNot on filedocumented in this encounter [facility]Not [facility] filedocumented in this encounter [facility]ructionsNot on filedocumented in this encounter [facility] SystemInstructionsNot on filedocumented in this encounter [facility] SystemReason for referral (narrative)* Consultation (Routine) - Pending Review Specialty Diagnoses / Procedures Referred By Gaston borges Referred To Contact Neurosurgery Diagnoses Lumbar radiculopathy, chronic Sumanth Hill MD [address] [place] [address] Mayco Nolen MD [address] [facility] [address] [place] [address] Referral ID Status Reason Start Date Expiration Date Visits Requested Visits Authorized [id number] Pending Review Specialty Services Required 11/05/2023 11/04/2024 1 1 [facility] ([facility]ative)* Consultation (Routine) - Pending Review Specialty Diagnoses / Procedures Referred By Gaston borges Referred To Contact Pain Medicine Diagnoses Lumbar radiculopathy, chronic Neurogenic claudication Carl Sosa APRN-CNP [address] [facility] [address] [place] [address] [address] Referral ID Status Reason Start Date Expiration Date V isits Requested Visits Authorized [id number] Pending Review 11/14/2023 11/13/2024 1 1 * Physical Therapy (Routine) - Pending Review Specialty Diagnoses / Procedures Referred By Gaston borges Referred To Contact Rehabilitation Diagnoses Lumbar radiculopathy, chronic Neurogenic claudication Carl Sosa APRN-CNP [address] [facility] [address] [place] [address] [facility] [address] [place] [address] Referral ID Status Reason Start Date Expiration Date Visits Requested Visits Authorized [id number] Pending Review Specialty Services Required 11/14/2023 11/13/2024 1 1 [facility] Summary Purpose Family History No Family History Records Found Relationship Condition Age at Onset Recorded Date/T akil father Unknown Not Specified Unknown Chronic obstructive pulmonary disease Unk nown Relationship Condition Age at Onset Recorded Date/T akil father Unknown mother Unknown Chronic obstructive pulmonary disease Unk nown [...] osteoarthritis of first carpometacarpal joint, left hand Chief Complaint 3 month follow up Reason for Visit Left hand pain Unilateral primary osteoarthritis of first carpometacarpal joint, left hand Additional Source Comments (unrecognized sect ion and content) No Status Records FoundNo Status Records FoundNo Status Records FoundNo Status Records FoundNo Status Records FoundNo Status Records FoundNo Status Records FoundNo Status Records FoundNo Status Records Found INFORMATION SOURCE (unrecogn ized section and content) DATE CREATED AUTHOR 04/21/2018 [facility] DATE CREATED AUTHOR AUTHOR'S ORGANIZ ATION 12/04/2021 [facility] DATE CREATED AUTHOR AUTHOR'S ORGANIZ ATION 02/25/2022 [facility] dical Specialist DATE CREATED AUTHOR AUTHOR'S ORGANIZ ATION 04/12/2023 [facility] DATE CREATED AUTHOR AUTHOR'S ORGANIZ ATION 07/01/2023 [facility] DATE CREATED AUTHOR AUTHOR'S ORGANIZ ATION 11/27/2023 [facility] DATE CREATED AUTHOR AUTHOR'S ORGANIZ ATION 04/25/2024 [facility] DATE CREATED AUTHOR AUTHOR'S ORGANIZ ATION 04/30/2024 [facility] DATE CREATED AUTHOR AUTHOR'S ORGANIZ ATION 05/24/2024 [facility] REASON FOR VISIT (unrecogniz ed section and content) Reason Onset Date Comments Er Follow-up 11/05/2023 Reason Comments 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 [facility] [place] [address] Mayco Nolen MD [address] [place] [phone] Referral ID Status Reason Start Date Expiration Date Visits Requested Visits Authorized [id number] Pending Review Specialty Services Required 11/05/2023 11/04/2024 1 1 Reason Onset Date Comments surgery 12/10/2023 Reason Onset Date Comments surgery 12/24/2023 Specialty Diagnoses / Procedures Referred By Contac t Referred To Contact Referral ID Status Reason Start Date Expiration Date Visits Re quested Visits Authorized [id number] 1 1 Care Teams (unrecognized sec tion [...] Active Charity Barkley MD Attending Provider Active Community Service Officer Relationship Specialty Start Date End Date Sumanth Hill MD [address] [place] [address] PCP - General Family Medicine 01/16/23 Community Service Officer Relationship Specialty Start Date End Date Sumanth Hill MD [address] [place] [address] PCP - General Family Medicine 01/16/23 Community Service Officer Relationship Specialty Start Date End Date Sumanth Hill MD [address] [place] [address] PCP - General Family Medicine 01/16/23 Community Service Officer Relationship Specialty Start Date End Date Sumanth Hill MD [address] [place] [address] PCP - General Family Medicine 01/16/23 Community Service Officer Relationship Specialty Start Date End Date Sumanth Hill MD [address] [place] [address] PCP - General Family Medicine 01/16/23 Community Service Officer Relationship Specialty Start Date End Date Sumanth Hill MD [address] [place] [address] PCP - General Family Medicine 01/16/23 Community Service Officer Relationship Specialty Start Date End Date Sumanth Hill MD [address] [place] [address] PCP - General Family Medicine 01/16/23 Community Service Officer Relationship Specialty Start Date End Date Sumanth Hill MD [address] [place] [address] PCP - General Family Medicine 01/16/23 Team Status: Inactive Member Role Status Dates NON STAFF Primary Care Provider Active Start: January 29, 2024 End: January 29, 2024 Charity Barkley MD Attending Provider Active Start: January 29, 2024 End: January 29, 2024 Team Status: Inactive Member Role Status Dates NON STAFF Primary Care Provider Active Start: May 22, 2024 End: May 22, 2024 Charity Barkley MD Attending Provider Active Start: May 22, 2024 End: May 22, 2024 Goals (unrecognized section and content) Goals [...] prophylaxis 1944 (Due)2113 (New Bag - Provider: Sihra Thomas RN)2143 (Stop Bag - Provider: Bandar Bahena RN) enoxaparin (LOVENOX) syringe 40 mg 40 mg, subcutaneous, Daily, First dose on Tanya 12/26/23 at 0600, PACU & Post-op, When Creatinine Clearance 30 mL/min or greater Look-alike/sound-alike medication - verify indication for use. 524 (Given - Provider: Bandar Bahena RN) 520 (Given - Provider: Pineda Alexandra RN) gabapentin (NEURONTIN) tablet 600 mg 600 mg, oral, 2 times daily, First dose on Sat12/25/23 at 2100, PACU & Post-op, Look-alike/sound-alike medication - verify indication for use. 2003 (Given - Provider: Shira Thomas RN) 822 (Given - Provider: José Miguel Devine, RN)2022 (Given - Provider: Pineda Alexandra, RN) 943 (Given - Provider: Michaelle Zeng, RN) gentamicin 160 mg in 0.9% sod chl [...] Devine RN)1752 (Given - Provider: José Miguel Devine, RN)2150 (Given - Provider: Pineda Alexandra, MIREILLE) 0945 (Given - Provider: Michaelle Zeng, RN) polyethylene glycol (GLYCOLAX) packet 17 g 17 g, oral, Daily, First dose on Sat12/25/23 at 1945, PACU & Post-op, Look-alike/sound-alike medication - verify indication for use. Dissolve 1 packet (17 gm) in 8 ounces of water, juice, soda, coffee or tea. 2055 (Given - Provider: Shira Thomas RN) 822 (Given - Provider: José Miguel Devine, RN) 943 (Given - Provider: Michaelle Zeng, MIREILLE) sennosides-docusate sodium (SENOKOT-S) 8.6-50 mg 1 tablet 1 tablet, oral, 2 times daily, First dose on Tanya 12/26/23 at 0900, PACU & Post-op, Start Post-Op Day 1: Hold for diarrhea 821 (Given - Provider: José Miguel Devine RN)2023 (Given - Provider: Pineda Alexandra RN) 0944 (Given - Provider: Michaelle Zeng, RN) sodium chloride 0.9 % flush 3 mL 3 mL, intravenous, Every 12 hours scheduled, First dose on Sat12/25/23 at 2100, PACU & Post-op, Once tolerating oral intake 2100 (Given - Provider: Shira Thomas RN) 0823 (Given - Provider: José Miguel Devine RN)2022 (Given - Provider: Pineda Alexandra RN) 0900 (Not Given - Provider: Michaelle Zeng [...] verify indication for use., Indications: muscle spasm 194 (Given - Provider: Shira Thomas RN) 0800 [...] Vibha Saeed RN) lidocaine-EPINEPHrine (XYLOCAINE W/EPI) 1 %-[id number] injection (CANCELED) As needed, Starting on Sat12/25/23 [...] verify indication for use. Immediate release. 1721 (Given - Provider: Sheri Adler RN)2057 (Given - Provider: Shira Thomas RN)2335 (Given - Provider: Bandar Bahena, MIREILLE) 0451 (Given - Provider: Bandar Bahena, MIREILLE)1227 (Given - Provider: José Miguel Devine RN)1752 [...] Adler RN)2057 (See Alternative - Provider: Shira Thomas, RN)2335 (See Alternative - Provider: Bandar Bahena, RN) 0451 (See Alternative - Provider: Bandar Bahena, RN)1227 (See Alternative - Provider: José Miguel [...] BE BASED ON THE PRIMARY CLINICAL RECORDS. [employer] [facility]. provides no warranty or guarantee of the accuracy or completeness of information in this document.
== END 2024-05-28 08:19 | disposition home or self-care (01) ==
PROVIDERS: PCP Family Medicine; Visit Provider Nurse Practitioner
DX: M48.062 Spinal stenosis, lumbar region with neurogenic claudication (principal); M96.1 Postlaminectomy syndrome, not elsewhere classified; M54.16 Radiculopathy, lumbar region; M62.838 Other muscle spasm; Z79.891 Long term (current) use of opiate analgesic
CPT/HCPCS: G0463

== ENCOUNTER 2024-08-27 08:08 | Outpatient (OUT) | payer MEDICARE, OTHER, SELFPAY ==
--- OUTSIDE RECORDS SUMMARY | 2024-08-27 08:16 | XMS_ITS | CCD ---
Author Organization [facility] Care Team Providers Care Manager Club Name Role Phone PHYSICIAN, DEFAULT Unavailable Unavailable [...] DR JULIO Primary Care Unavailable LAKSHMIPATHY ., NARRAMONE Consulting Ceci vailable LAKSHMIPATHY ., BLAKE Attending Ceci vailable LAKSHMIPATHY ., BLAEK Admitting Ceci vailable DEFRANCE, DR JULIO Primary [...] Barkley Unavailable MD Charity Barkley Attending Provider NON STAFF Primary Care Provider UnavailSumanth Ivan MD Primary Care Provider Chloe DELUCA, Rosales Leon Attending Unavailable CARL SOSA Referring Unavailable DEFRANCE, SUMANTH T Primary Care Unavailable MAYCO NOLEN Referring Unavailable DEFRANCE, SUMANTH Borges Primary Care Unavailable CARL SOSA Referring Unavailable DEFRANCE, SUMANTH T Primary Care Unavailable MAYCO NOLEN Referring Unavailable DEFRANCE, SUMANTH T Primary Care Unavailable REINMAYCO ASCENCIO Admitting Unavailable MAYCO NOLEN Attending Unavailable DEFRANCE, SUMANTH T Primary Care Unavailable MARIA M VÁSQUEZ Attending Unavailable DEFRANCE, SUMANTH T Primary Care Unavailable REINMAYCO ASCENCIO Attending Unavailable MAYCO NOLEN Referring Unavailable DEFRANCE, SUMANTH T Primary Care Unavailable NON STAFF Primary Care Unavailable Charity Barkley Attending Unavailable Charity Barkley Admitting Unavailable JESSICA REYES Attending Unavailable KING CLARK Attending Unavailable Sumanth Peres Primary Care Provider CARL SOSA Attending Unavailable DEFRANCE, SUMANTH T Referring Unavailable DEFRANCE, SUMANTH T Primary Care Unavailable REINMAYCO ASCENCIO Attending Unavailable DEFRANCE, SUMANTH T Referring Unavailable DEFRANCE, SUMANTH T Primary Care Unavailable DEFRANCE, SUMANTH T Referring Unavailable DEFRANCE, SUMANTH T Primary Care Unavailable CARL SOSA Attending Unavailable MINH HELLER Attending Unavailable DEFRANCE, SUMANTH T Referring Unavailable DEFRANCE, SUMANTH T Primary Care Unavailable DEFRANCE, SUMANTH T Referring Unavailable DEFRANCE, SUMANTH T Primary Care Unavailable CARL SOSA Attending Unavailable DEFRANCE, SUMANTH Borges Attending Unavailable DEFRANCE, SUMANTH T Referring Unavailable DEFRANCE, SUMANTH T Primary Care Unavailable DEFRANCE, SUMANTH T. Primary Care Unavailable DEFRANCE, SUMANTH Avina Referring Unavailable DEFRANCE, SUMANTH Avina Primary Care Unavailable SOSA, CARL Referring Unavailable DEFRANCE, SUMANTH Borges. Primary Care Unavailable SOSA, CARL Referring Unavailable DEFRANCE, SUMANTH Borges. Primary Care Unavailable SOSA, CARL Referring Unavailable DEFRANCE, SUMANTH Borges. Primary Care Unavailable SOSA, CARL Referring Unavailable DEFRANCE, SUMNATH Borges. Primary Care Unavailable DEFRANCE, SUMANTH Avina Primary Care Unavailable MAEVE COTA Attending Unavailable MAEVE COTA Referring Unavailable DEFRANCE, SUMANTH Avina Primary Care Unavailable SOSA, CARL Referring Unavailable DEFRANCE, SUMANTH Borges. Primary Care Unavailable SOSA, CARL Referring Unavailable DEFRANCE, SUMANTH Avina Primary Care Unavailable MAYCO NOLEN Referring Unavailable DEFRANCE, SUMANTH Borges. Primary Care Unavailable DEFRANCE, SUMANTH Borges. Referring Unavailable DEFRANCE, SUMANTH Borges. Primary Care Unavailable MAYCO NOLEN Referring Unavailable DEFRANCE, SUMANTH Avina Primary Care Unavailable DEFRANCE, SUMANTH Avina Referring Unavailable DEFRANCE, SUMANTH Avina Primary Care Unavailable Medications Current Medications Medication [...] / oxyCODONE hydrochloride 5 mg oral tablet (19 sources) Opioid Agonist Start: 05-22-2024 Oxycodone-Acet aminophen Active TAB PO May 22, 2024 12:00am take 1 tablet by mk once in the evening, then take 1-2 tablets by mouth once daily oxyCODONE-acetaminophen (PERCOCET) 5-325 mg per tablet Take 1 tablet by mouth in the evening. 1 to 2 tablets daily. Active End: 12-27-2023 take 3 tablets by mouth [...] needed for pain. 0 Active Percocet Active amoxicillin 500 mg oral capsule (1 source) Penicillin-class Antibacterial Start: 02-25-2024 End: 08-11-2024 amoxicillin (AMOXIL) 500 mg capsule 02/25/2024 08/11/2024 Discontinued (Alternate therapy) aspirin 81 mg delayed release oral tablet (1 source) Platelet Aggregation Inhibitor, Nonsteroidal Anti-inflammatory Drug take 1 tablet by mouth once daily aspirin, enteric coated (ASPIRIN, ENTERIC COATED) 81 mg EC tablet Take 81 mg by mouth once daily. Active B-complex with vitamin C tablet (4 sources) take 2 tablets by mouth in the morning B-complex with vitamin C tablet Take 2 tablets by mouth in the morning. Active take 2 tablets by mouth in the m orning B-complex with vitamin C tablet Take 2 tablets by mouth in the morning. 0 Active take 2 tablets by mouth in the m orning B-complex with vitamin C tablet Take 2 tablets by mouth in the morning. 0 baclofen 10 mg oral tablet (1 source) gamma-Aminobutyric Acid-ergic Agonist Start: 04-02-2024 End: 08-11-2024 take 0.5-1 tablets by mouth three times daily baclofen (LIORESAL) 10 mg tablet TAKE 1/2 - 1 TABLET BY MOUTH 3 TIMES A DAY 04/02/2024 08/11/2024 Discontinued (Alternate therapy) Calcium (5 sources) Phosphate Binder, Calcium Calcium + D3 Active calcium carbonate 1250 mg / cholecalciferol 200 unt oral tablet (4 sources) Vitamin D take 1 tablet by mouth once in the morning calcium carbonate-vitamin D3 (OSCAL 500 + D) 500 mg(1,250mg) -200 units per tablet Take 1 tablet by mouth in the morning and 1 tablet in the evening. Take with meals. Active Centrum Silver (5 sources) Centrum Silver Active Chondroitin Sulfates / Glucosamine (5 sources) Osteo Bi-Flex On e Per Day Active ciprofloxacin 500 mg oral tablet (1 source) Quinolone Antimicrobial Start: 03-05-2017 take 1 tablet by mouth once daily ciprofloxacin HCl (CIPRO) 500 mg tablet Take 1 tablet by mouth once daily. Until catheter removed 10 tablet 03/05/2017 Active cyclobenzaprine hydrochloride 10 mg oral tablet (4 sources) Muscle Relaxant Start: 05-22-2024 Cyclobenzaprine Active MG PO May 22, 2024 12:00am Start: 04-23-2024 take 1 tablet by mk th three times daily as needed for muscle spasms cyclobenzaprine (FLEXERIL) 10 mg tablet Indications: Spondylolisthesis of lumbar region Take 1 tablet (10 mg total) by mouth 3 (three) times a day as needed for muscle spasms. This is an 10 day supply 30 tablet 2 04/23/2024 Active diclofenac sodium 75 mg delayed release oral tablet (20 sources) Nonsteroidal Anti-inflammatory Drug Start: 01-19-2024 take 1 tablet by mouth twice daily as needed diclofenac (VOLTAREN) 75 mg EC tablet TAKE 1 TABLET BY MOUTH TWICE A DAY NEEDED 01/19/2024 Active End: 12-27-2023 take 1 tablet by mouth [...] at Discharge) Diclofenac Activ e docusate sodium 100 mg oral capsule (1 source) Start: 03-05-2017 take 1 capsule by mouth twice daily docusate sodium (COLACE) 100 mg capsule Take 1 capsule by mouth twice daily. To prevent constipation. If you develop diarrhea, please stop this medication. 20 capsule 03/05/2017 Active ELDERBERRY FRUIT (2 sources) ELDERBERRY FRUIT ORAL Take by mouth in the morning and at bedtime. Active Elderberry preparation (5 sources) Elderberry 500 M G as directed Orally Active gabapentin 300 mg oral capsule (14 sources) Anti-epilepti c Agent Start: 05-22-2024 Gabapentin Active MG PO May 22, 2024 12:00am Start: 11-07-2023 take 0.5 tablet by m outh in the morning gabapentin (NEURONTIN) 600 mg tablet Take 0.5 tablets (300 mg total) by mouth in the morning. 11/07/2023 Active Start: 11-07-2023 take 1 capsule by mo uth twice daily gabapentin (NEURONTIN) 300 mg capsule TAKE 1 CAPSULE BY MOUTH TWICE A DAY 0 11/07/2023 Active Start: 11-07-2023 End: 12-27-2023 take 600 mg by mouth twice daily 600 mg, oral, 2 times daily, First dose on Sat12/25/23 at 2100, PACU & Post-op, Look-alike/sound-alike medication - verify indication for use. glucosamine/chondr piña A sod (OSTEO BI-FLEX ORAL) (3 sources) take 1 tablet by mouth in the morning glucosamine/chondr piña A sod (OSTEO BI-FLEX ORAL) Take 1 tablet by mouth in the morning. Active End: 12-27-2023 take 1 capsule by mouth in the morning glucosamine/chondr piña A sod (OSTEO BI-FLEX ORAL) Take 1 capsule by mouth in the morning. 0 12/27/2023 Discontinued (Stop Taking at Discharge) ketorolac tromethamine 10 mg oral tablet (1 source) Nonsteroidal Anti-inflammatory Drug, Cyclooxygenase Inhibitor Start: 03-05-2017 take 1 tablet by mouth every six hours as needed ketorolac (TORADOL) 10 mg tablet Take 1 tablet by mouth every 6 hours as needed for Pain. 15 tablet 03/05/2017 Active methocarbamol 500 mg oral tablet (3 sources) Muscle Relaxant Start: 12-26-2023 End: 01-10-2024 take 1 tablet by mouth three times daily as needed for muscle spasms methocarbamoL (ROBAXIN) 500 mg tablet Take 1 tablet (500 mg total) by mouth 3 (three) times a day as needed for muscle spasms for up to 14 days. 42 tablet 0 12/27/2023 01/10/2024 Active methylPREDNISolone (8 sources) Corticosteroid Start: 04-23-2024 End: 08-11-2024 methylPREDNISolone (MEDROL, DEMOND,) 4 mg tablet Indications: Spondylolisthesis of lumbar region follow package directions 21 tablet 04/23/2024 08/11/2024 Discontinued (Alternate therapy) Start: 11-14-2023 End: 12-20-2023 methylPREDNISolone (MEDROL, DEMOND,) [...] package directions 21 tablet 0 10/22/2023 Active mv-min/folic/K1/lycopen/lute in (CENTRUM SILVER MEN ORAL) (4 sources) take 1 tablet by mouth once daily mv-min/folic/K1/lycopen/lutein (CENTRUM SILVER MEN ORAL) Take 1 tablet by mouth once daily. Active take 1 tablet by mk th [...] opioid reversal. 1 each 0 12/27/2023 Active oxybutynin chloride 5 mg oral tablet (1 source) Cholinergic Muscarinic Antagonist Start: 03-06-2017 take 1 tablet by mouth every eight hours as needed oxybutynin (DITROPAN) 5 mg tablet Take 1 tablet by mouth every 8 hours as needed (for bladder spasms). 20 tablet 03/06/2017 Active oxyCODONE hydrochloride 5 mg oral tablet [...] oxyCODONE (ROXICODONE) immediate release tablet 5 mg OXYCODONE HCL/ACETAMINOPHEN (PERCOCET ORAL) (1 source) take 1 tablet by mouth once daily OXYCODONE HCL/ACETAMINOPHEN (PERCOCET ORAL) Take 1 tablet by mouth once daily. Active predniSONE 10 mg oral tablet (1 source) Start : 11-05 End: 11-13 take 6 tablets by mouth once daily, then take 1 tablet by mouth once daily at mealtime predniSONE (STERAPRED DS) 10 mg tablet pack Take by mouth daily for 8 days. 6 tabs qd x 3 d then 1 less each day with food 33 tablet 0 11/05/2023 11/13/2023 Active sildenafil 20 mg oral tablet (1 source) Phosphodiesterase 5 Inhibitor Start : 05-01 take 2-5 tablets by mouth every hour sildenafil (REVATIO) 20 mg tablet Take 2-5 tablets by mouth one hour prior to sexual activity. 50 tablet 5 05/01/2017 Active Super B Complex (5 sources) Super [...] Discontinued docusate sodium 50 mg / sennosides, correction 8.6 mg oral tablet (1 source) Start: [...] 70 mg/dL after initial treatment, repeat treatment. 150 ml glucose 50 mg/ml injection (3 [...] NOT use in Renal/Dialysis patients Shake well. 2 ml midazolam 1 mg/ml cartridge (1 [...] Administer over 2-5 minutes. polyethylene glycol 3350 [id number] mg powder for oral solution (1 source) [...] Documented Date Episodic/Chronic Blindness and vision defects (7 sources) Visual impairment; Translations: [Unspecified visual loss] Onset: 12-20-2023 12-20-2023 Chronic Cancer of prostate (20 sources) Adenocarcinoma of prostate; Translations: [Malignant neoplasm of prostate] Onset: 11-20-2016 04-16-2023 Chronic Cancer of prostate (5 sources) History of malignant neoplasm of prostate; Translations: [Personal history of malignant neoplasm of prostate] Onset: 10-04-2023 10-04-2023 Episodic Disorders of lipid metabolism (3 sources) Pure hypercholesterolemia, unspecified; Translations: [Pure hypercholesterolemia] Onset: 08-11-2024 08-11-2024 Chronic Diverticulosis and diverticulitis (1 source) Diverticulitis of intestine, part unspecified, without perforation or abscess without bleeding; Translations: [Diverticulitis of intestine, part unspecified, without perforation or abscess without bleeding] Onset: 10-22-2023 Chronic Osteoarthritis (20 sources) Bilateral primary osteoarthritis of hip; Translations: [Unilateral primary osteoarthritis of first carpometacarpal joint, left hand] Onset: 04-16-2018 Chronic Other acquired deformities (1 source) Lumbar spondylolisthesis; Translations: [Spondylolisthesis, lumbar region] 08-11-2024 Episodic Other aftercare (1 source) Monitoring status; Translations: [Encounter for therapeutic drug level monitoring] 12-20-2023 Episodic Other connective tissue disease (1 source) Arthrodesis status; Translations: [ARTHRODESIS STATUS] Onset: 04-16-2018 Episodic Other connective tissue disease (1 source) Other muscle spasm; Translations: [OTHER MUSCLE SPASM] Onset: 04-03-2023 Episodic Other connective tissue disease (6 sources) Pain in left hand; Translations: [Pain in limb] Onset: 10-01-2022 Episodic Other connective tissue disease (4 sources) Impingement syndrome of right shoulder Episodic Other connective tissue disease (3 sources) Hand pain; Translations: [Pain in left [...] SPECIFIED ARTHRITIS LEFT HAND] Onset: 02-21-2023 Chronic Sprains and strains (4 sources) Other sprain [...] EXPOS COVID-19] Onset: 10-11-2022 Unclassified (1 source) Annual Exam Onset: 08-11-2024 Unclassified (2 sources) Low back pain, unspecified; Translations: [Low back pain, unspecified] Onset: 02-12-2024 Unclassified (1 source) Post-op Onset: 02-12-2024 Unclassified (1 source) New Patient Onset: 11-14-2023 Past or Other Problems Problem Classification Problem Date Documented Date Episodic/Chronic Genitourinary symptoms and ill-defined conditions (2 sources) Abnormal urine; Translations: [Unspecified abnormal findings in urine] Onset: 12-20-2023 12-20-2023 Episodic Intestinal obstruction without hernia (13 sources) Small bowel obstruction; Translations: [Unspecified intestinal obstruction, unspecified as to partial versus complete obstruction] Onset: 03-12-2017 Resolved: 12-20-2023 10-04-2023 Episodic Mood disorders (12 sources) Mood disorders Onset: 07-29-2023 Resolved: 08-11-2024 07-29-2023 Other acquired deformities (3 sources) Spondylolisthesis, lumbar region; Translations: [Spondylolisthesis, lumbar region] Onset: 04-23-2024 Episodic Other aftercare (1 source) Encounter for therapeutic drug level monitoring; Translations: [Encounter for therapeutic drug level monitoring] Onset: 12-20-2023 Episodic Other aftercare (1 source) group home (current) use of 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; Translations: [group home (current) use of 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] Onset: 12-20-2023 Episodic Other connective tissue disease (11 sources) Neurogenic claudication; Translations: [Other symptoms and signs involving the nervous system] Onset: 12-17-2023 11-14-2023 Episodic Other connective tissue disease (3 [...] the musculoskeletal system] Onset: 02-12-2024 Episodic Other non-traumatic joint disorders (5 sources) Pain in right shoulder; Translations: [Pain in right shoulder] Onset: 06-24-2023 Episodic Other screening for suspected conditions (not mental disorders or infectious disease) (12 sources) Raised prostate specific antigen; Translations: [Elevated prostate specific antigen [PSA]] Onset: 10-09-2016 Resolved: 12-20-2023 01-21-2023 Episodic Other skin disorders (13 sources) Eruption; Translations: [Rash and other nonspecific skin eruption] Onset: 03-12-2017 Resolved: 12-20-2023 05-19-2020 Episodic Residual codes; unclassified (12 sources) Localized edema; Translations: [Localized edema] Onset: 02-08-2020 02-08-2020 Episodic Residual codes; unclassified (3 sources) Other specified postprocedural states; Translations: [Other specified postprocedural states] Onset: 02-12-2024 Episodic Residual codes; unclassified (2 sources) Unspecified symptoms and signs involving general sensations and perceptions; Translations: [Unspecified symptoms and signs involving general sensations and perceptions] Onset: 02-12-2024 Episodic Spondylosis; intervertebral disc disorders; [...] PAIN, UNSPECIFIED] Onset: 11-22-2022 Urinary tract infections (13 sources) Urinary tract infectious disease; Translations: [Urinary tract infection, site not specified] Onset: 05-08-2017 Resolved: 10-04-2023 10-04-2023 Episodic Varicose veins of lower extremity (12 sources) Pain co-occurrent and due to varicose veins of right leg; Translations: [Varicose veins of right lower extremity with pain] Onset: 02-08-2020 02-08-2020 Episodic Results Test Name Value Interpretation Reference Range Facility CBC AND AUTO DIFFon 08-25-20 ABSOLUTE BASOPHIL 0.1 X10E9/L Normal 0.0-0.2 [facility] Comment on above: Performed By: #### T MACIER, 71088-6, CMP, CBCA #### [facility] ([id number]) [address], [address] [place] [address] ABSOLUTE NEUTROPHIL 3.7 X10E9/L Normal 1.5-6.6 [facility] Comment on above: Performed By: #### T HYR, 94665-9, CMP, CBCA #### [facility] ([id number]) [address], [address] [place] [address] Basophils/100 WBC (Bld) 1.1 % Normal [facility] Comment on above: Performed By: #### T HYR, 85830-4, CMP, CBCA #### [facility] ([id number]) [address], [address] [place] [address] Eosinophils (Bld) [#/Vol] 0.2 10*3/uL Normal 0.0-0.4 [facility] Comment on above: Performed By: #### T NOE, 19233-1, CMP, CBCA #### [facility] ([id number]) [address], [address] [place] [address] Eosinophils/100 WBC (Bld) 2.6 % Normal [facility] Comment on above: Performed By: #### T NOE, 60801-1, CMP, CBCA #### [facility] ([id number]) [address], [facility] [address] [place] [address] Erythrocyte distribution width (RBC) [Ratio] 13.5 % Normal 11.5-15.0 [facility] Comment on above: Performed By: #### T NOE, 10568-4, CMP, CBCA #### [facility] ([id number]) [address], [address] [place] [address] Hematocrit (Bld) [Volume fraction] 44.7 % Normal 39-49 [facility] Comment on above: Performed By: #### Morales LIU, 13422-0, CMP, CBCA #### [facility] ([id number]) [address], [address] [place] [address] Hemoglobin (Bld) [Mass/Vol] 15.0 g/dL Normal 13.0-17.0 [facility] Comment on above: Performed By: #### T MACIER, 15183-1, CMP, CBCA #### [facility] ([id number]) [address], [address] [place] [address] Lymphocytes (Bld) [#/Vol] 1.5 10*3/uL Normal 1.0-3.5 [facility] Comment on above: Performed By: #### T HYR, 80548-8, CMP, CBCA #### [facility] ([id number]) [address], [address] [place] [address] Lymphocytes/100 WBC (Bld) 23.5 % Normal [facility] Comment on above: Performed By: #### T NOE, 03980-7, CMP, CBCA #### [facility] ([id number]) [address], [address] [place] [address] MCH (RBC) [Entitic mass] 32.1 pg Normal 27-34 [facility] Comment on above: Performed By: #### T NOE, 21100-5, CMP, CBCA #### [facility] ([id number]) [address], [facility] [address] [place] [address] MCHC (RBC) [Mass/Vol] 33.6 g/dL Normal 32-36 [facility] Comment on above: Performed By: #### Morales LIU, 15435-1, CMP, CBCA #### [facility] ([id number]) [address], [address] [place] [address] MCV (RBC) [Entitic vol] 96 fL Normal 80-100 [facility] Comment on above: Performed By: #### Morales LIU, 76121-6, CMP, CBCA #### [facility] ([id number]) [address], [address] [place] [address] Monocytes (Bld) [#/Vol] 0.8 10*3/uL Normal 0-0.9 [facility] Comment on above: Performed By: #### T MACIER, 82623-7, CMP, CBCA #### [facility] ([id number]) [address], [facility] [address] [place] [address] Monocytes/100 WBC (Bld) 13.1 % Normal [facility] Comment on above: Performed By: #### T HYR, 78128-6, CMP, CBCA #### [facility] ([id number]) [address], [address] [place] [address] Neutrophils/100 WBC (Bld) 59.7 % Normal [facility] Comment on above: Performed By: #### T NOE, 69648-0, CMP, CBCA #### [facility] ([id number]) [address], [address] [place] [address] Platelet mean volume (Bld) [Entitic vol] 7.5 fL Normal 7-12 [facility] Comment on above: Performed By: #### T NOE, 73560-4, CMP, CBCA #### [facility] ([id number]) [address], [address] [place] [address] Platelets (Bld) [#/Vol] 246 10*3/uL Normal 150-450 [facility] Comment on above: Performed By: #### T NOE, 74194-2, CMP, CBCA #### [facility] ([id number]) [address], [address] [place] [address] RBC COUNT 4.68 X10E12/L Normal 4.10-5.70 [facility] Comment on above: Performed By: #### Morales LIU, 23007-2, CMP, CBCA #### [facility] ([id number]) [address], [address] [place] [address] WBC (Bld) [#/Vol] 6.2 10*3/uL Normal 4.0-11.0 [facility] Comment on above: Performed By: #### T NOE, 28727-0, CMP, CBCA #### [facility] ([id number]) [address], [address] [place] [address] COMPREHENSIVE METABOLIC PANE Sandoval 08-25-2024 Albumin [Mass/Vol] 4.6 g/dL Normal 3.2-5.3 [facility] Comment on above: Performed By: #### T NOE, 49593-6, CMP, CBCA #### [facility] ([id number]) [address], [address] [place] [address] ALP [Catalytic activity/Vol] 77 U/L Normal 39-130 [facility] Comment on above: Performed By: #### T HYR, 07716-4, CMP, CBCA #### [facility] ([id number]) [address], [address] [place] [address] ALT [Catalytic activity/Vol] 36 U/L Normal 0-40 [facility] Comment on above: Performed By: #### T HYR, 50000-1, CMP, CBCA #### [facility] ([id number]) [address], [address] [place] [address] Anion gap [Moles/Vol] 11 mmol/L Normal 5-15 [facility] Comment on above: Performed By: #### T MACIER, 65294-3, CMP, CBCA #### [facility] ([id number]) [address], [address] [place] [address] AST [Catalytic activity/Vol] 31 U/L Normal 0-41 [facility] Comment on above: Performed By: #### T MACIER, 76965-6, CMP, CBCA #### [facility] ([id number]) [address], [address] [place] [address] Bilirubin [Mass/Vol] 0.5 mg/dL Normal 0.3-1.2 [facility] Comment on above: Performed By: #### T HYR, 47573-9, CMP, CBCA #### [facility] ([id number]) [address], [address] [place] [address] Calcium [Mass/Vol] 9.3 mg/dL Normal 8.5-10.5 [facility] Comment on above: Performed By: #### T HYR, 24745-5, CMP, CBCA #### [facility] ([id number]) [address], [address] [place] [address] Chloride [Moles/Vol] 104 mmol/L Normal 98-109 [facility] Comment on above: Performed By: #### Morales LIU, 93639-9, CMP, CBCA #### [facility] ([id number]) [address] [address] [place] [address] CO2 [Moles/Vol] 27 mmol/L Normal 22-32 [facility] Comment on above: Performed By: #### T NOE, 78337-8, CMP, CBCA #### [facility] ([id number]) [address] [address] Creatinine [Mass/Vol] 0.68 mg/dL Normal 0.60-1.30 [facility] [facility] Comment on above: Result Comment: METH OD TRACEABLE TO IDMS STANDARD Performed By: #### Morales LIU, 20098-7, CMP, CBCA #### [facility] ([id number]) [address], [facility] [address] [place] [address] eGFR (CKD-EPI) NON-RACE DEPENDENT >90 Normal >59 [facility] Comment on above: Result Comment: Reported eGFR is based on the CKD-EPI 2020 equation that does not use a race coefficient. Performed By: #### Morales LIU, 57283-1, CMP, CBCA #### [facility] ([id number]) [address] [address] [place] [address] Glucose [Mass/Vol] 84 mg/dL Normal 65-99 [facility] Comment on above: Performed By: #### T NOE, 22691-2, CMP, CBCA #### [facility] ([id number]) [address] [address] [place] [address] Potassium [Moles/Vol] 5.0 mmol/L Normal 3.5-5.0 [facility] Comment on above: Performed By: #### Morales LIU, 53919-6, CMP, CBCA #### [facility] ([id number]) [address], [address] [place] [address] Protein [Mass/Vol] 7.2 g/dL Normal 6.0-8.0 [facility] Comment on above: Performed By: #### Morales LIU, 74341-3, CMP, CBCA #### [facility] ([id number]) [address], [address] [place] [address] Sodium [Moles/Vol] 142 mmol/L Normal 134-146 [facility] Comment on above: Performed By: #### Morales LIU, 21195-5, CMP, CBCA #### [facility] ([id number]) [address], [address] [place] [address] Urea nitrogen [Mass/Vol] 15 mg/dL Normal 5-27 [facility] Comment on above: Performed By: #### Morales LIU, 53136-5, CMP, CBCA #### [facility] ([id number]) [address], [address] [place] [address] Lipid 1996 panelon 4 Cholesterol [Mass/Vol] 191 mg/dL Normal 150-200 [facility] Comment on above: Performed By: #### Morales LIU, 65091-7, CMP, CBCA #### [facility] ([id number]) [address], [address] [place] [address] Cholesterol in HDL [Mass/Vol] 54 mg/dL Normal >39 [facility] Comment on above: Result Comment: HDL <40 mg/dL - High Risk HDL > or = 40mg/dL- Desirable HDL >60 mg/dL - Negative Risk Performed By: #### Morales LIU, 67412-8, CMP, CBCA #### [facility] ([id number]) [address], [facility] [address] [place] [address] Cholesterol in LDL [Mass/Vol] 127 mg/dL Normal <130 [facility] Comment on above: Result Comment: LDL <100 mg/dL - Desirable LDL >160 mg/dL - High Risk Performed By: #### T HYR, 33479-8, CMP, CBCA #### [facility] ([id number]) [address] [address] [place] [address] Cholesterol in VLDL [Mass/Vol] 10 mg/dL Normal 0-30 [facility] Comment on above: Performed By: #### T MACIER, 88157-3, CMP, CBCA #### [facility] ([id number]) [address], [facility] [address] [place] [address] CHOLESTEROL:HDL 3.5 Normal 1.0-5.0 [facility] Comment on above: Performed By: #### T MACIER, 48468-1, CMP, CBCA #### [facility] ([id number]) [address] [address] [place] [address] Triglyceride [Mass/Vol] 50 mg/dL Normal 27-150 [facility] Comment on above: Performed By: #### T HYR, 70597-0, CMP, CBCA #### [facility] ([id number]) [address], [facility] [address] [place] [address] THYROID PROFILEon 08-25-2024 Free T4 [Mass/Vol] 0.93 ng/dL Normal 0.61-1.60 [facility] Comment on above: Performed By: #### T HYR, 91307-1, CMP, CBCA #### [facility] ([id number]) [address] [address] [place] [address] TSH 6.45 uIU/mL High 0.49-4.67 [facility] Comment on above: Performed By: #### T HYR, 89152-5, CMP, CBCA #### [facility] ([id number]) [address], [address] [place] [address] Prostate specific Ag [Mass/V ol]on 04-28-2024 PROSTATIC SPEC ANT <0.01 Normal 0.00-4.00 [facility] Comment on above: Result Comment: The method used for this test is ProntoForms DXI chemiluminescent immunoassay. Values obtained by different assay methods cannot be used interchangeably. Performed By: #### 2 857-1 #### [facility] ([id number]) [address], [address] [place] [address] XR SPINE LUMBAR 2 OR 3 VWSon [...] Granados MD on 04/24/2024 2:36 PM Normal [facility] MR LUMBAR SPINE WO CONTon MR [...] Matt Matute on 04/22/2024 2:10 PM Normal [facility] XR SPINE LUMB BENDING ONLY 2 -3 [...] Menjivar MD on 02/13/2024 2:22 PM Normal [facility] BASIC METABOLIC PANLon 12-27 Anion gap [Moles/Vol] 8 mmol/L Normal 5-15 [facility] Comment on above: Performed By: #### C TIP PÉREZ, , 50350-6 ####[facility] ([id number])[address], [address] [place] [address] Calcium [Mass/Vol] 9.2 mg/dL Normal 8.5-10.5 [facility] Comment on above: Performed By: #### C TIP PÉREZ, , 03598-3 ####[facility] ([id number])[address], [address] [address] Chloride [Moles/Vol] 103 mmol/L Normal 98-109 [facility] Comment on above: Performed By: #### C TIP PÉREZ, , 14225-8 ####[facility] ([id number])[address], [address] [place] [address] CO2 [Moles/Vol] 28 mmol/L Normal 22-32 [facility] Comment on above: Performed By: #### C BC, BMP, , ####[facility] ([id number])[address] [address], [place] [address] Creatinine [Mass/Vol] 0.77 mg/dL Normal 0.60-1.30 [facility] Comment on above: Result Comment: METH OD TRACEABLE TO IDMS STANDARD Performed By: #### C BC, BMP, , ####[facility] ([id number])[address] [address] [address] eGFR (CKD-EPI) NON-RACE DEPENDENT >90 Normal >59 [facility] Comment on above: Result Comment: Reported eGFR is based on the CKD-EPI 2020 equation that does not use a race coefficient. Performed By: #### Sujey PÉREZ, BMP, , 06098-4 ####[facility] ([id number])[address] [address], [place] [address] Glucose [Mass/Vol] 110 mg/dL High 65-99 [facility] Comment on above: Performed By: #### Sujey PÉREZ, BMP, , 83332-2 ####[facility] ([id number])[address] [address], [place] [address] Potassium [Moles/Vol] 4.3 mmol/L Normal 3.5-5.0 [facility] Comment on above: Performed By: #### C BC, BMP, , 17725-5 ####[facility] ([id number])[address] [address], [place] [address] Sodium [Moles/Vol] 139 mmol/L Normal 134-146 [facility] Comment on above: Performed By: #### Sujey BC, BMP, , 17271-3 ####[facility] ([id number])[address] [address], [place] [address] Urea nitrogen [Mass/Vol] 14 mg/dL Normal 5-27 [facility] Comment on above: Performed By: #### C , [facility], 53162-8, 55624-0 ####[facility] ([id number])[address] [facility] [place] [address] Basic Metabolic Panelon - Anion gap [Moles/Vol] 8 mmol/L 5 - 15 mmol/L [facility] Calcium [Mass/Vol] 9.2 mg/dL 8.5 - 10. 5 mg/dL [facility] Chloride [Moles/Vol] 103 mmol/L 98 - 109 mmol/L [facility] CO2 [Moles/Vol] 28 mmol/L 22 - 32 mmol/L [facility] Creatinine [Mass/Vol] 0.77 mg/dL 0.60 - 1.30 mg/dL [facility] Comment on above: METHOD TRACEABLE TO [facility] STANDARD eGFR (CKD-EPI)non-race dependent - PINF [facility] Comment on above: Reported eGFR is based on the CKD-EPI 2020 equation that does not use a race coefficient. Glucose [Mass/Vol] 110 mg/dL High 65 - 99 mg/dL [facility] Interpretation and review of laboratory results Abnormal [facility] Potassium [Moles/Vol] 4.3 mmol/L 3.5 - 5.0 mmol/L [facility] Sodium [Moles/Vol] 139 mmol/L 134 - 146 mmol/L [facility] Urea nitrogen [Mass/Vol] 14 mg/dL 5 - 27 mg/dL [facility] CBC without diffon Erythrocyte distribution width (RBC) [Ratio] 13.3 % 11.5 - 15.0 % [facility] Hematocrit (Bld) [Volume fraction] 36.3 % Low 39 - 49 % [facility] Hemoglobin (Bld) [Mass/Vol] 12.4 g/dL Low 13.0 - 17.0 g/dL [facility] Interpretation and review of laboratory results Abnormal [facility] MCH (RBC) [Entitic mass] 30.2 pg 27 - 34 pg [facility] MCHC (RBC) [Mass/Vol] 34.2 g/dL 32 - 36 g/dL [facility] MCV (RBC) [Entitic vol] 88 fL 80 - 100 fL [facility] Platelet mean volume (Bld) [Entitic vol] 7.2 fL 7 - 12 fL [facility] Platelets (Bld) [#/Vol] 243 10*3/uL [facility] RBC (Bld) [#/Vol] 4.12 10*6/uL [facility] WBC corrected for nucl RBC Auto (Bld) [#/Vol] 11.[address] [facility] COMPLETE BLOOD COUNTon 12-27 Erythrocyte distribution width (RBC) [Ratio] 13.3 % Normal 11.5-15.0 [facility] Comment on above: Performed By: #### C ELISA [facility], , 91176-4 ####[facility] ([id number])[address], [address] [address] Hematocrit (Bld) [Volume fraction] 36.3 % Low 39-49 [facility] Comment on above: Performed By: #### Sujey PÉREZ, [facility], , 55133-6 ####[facility] ([id number])[address], [address], [place] [address] Hemoglobin (Bld) [Mass/Vol] 12.4 g/dL Low 13.0-17.0 [facility] Comment on above: Performed By: #### Sujey BC, BMP, , 79501-6 ####[facility] ([id number])[address], [address], [place] [address] MCH (RBC) [Entitic mass] 30.2 pg Normal 27-34 [facility] Comment on above: Performed By: #### Sujey PÉREZ, BMP, , 88697-5 ####[facility] ([id number])[address], [address] [address] MCHC (RBC) [Mass/Vol] 34.2 g/dL Normal 32-36 [facility] Comment on above: Performed By: #### C BC, BMP, , 50374-2 ####[facility] ([id number])[address], [address] [place] [address] MCV (RBC) [Entitic vol] 88 fL Normal 80-100 [facility] Comment on above: Performed By: #### Sujey BC, BMP, , 64141-2 ####[facility] ([id number])[address], [address], [place] [address] Platelet mean volume (Bld) [Entitic vol] 7.2 fL Normal 7-12 [facility] Comment on above: Performed By: #### Sujey BC, BMP, , 19759-5 ####[facility] ([id number])[address], [address] [address] Platelets (Bld) [#/Vol] 243 10*3/uL Normal 150-450 [facility] Comment on above: Performed By: #### Sujey BC, BMP, , 97061-7 ####[facility] ([id number])[address], [address], [place] [address] RBC COUNT 4.12 X10E12/L Normal 4.10-5.70 [facility] Comment on above: Performed By: #### Sujey BC, BMP, , 57977-3 ####[facility] ([id number])[address], [address] [place] [address] WBC (Bld) [#/Vol] 11.6 10*3/uL High 4.0-11.0 [facility] Comment on above: Performed By: #### Sujey BC, BMP, , 81162-3 ####[facility] ([id number])[address], [address] [place] [address] ECG 12 leadon 12-27-2023 TRACEMASTERVUE [facility] Glucose Glucometer (BldC) [M ass/Vol]on 12-27-2023 Glucose [Mass/Vol] 98 mg/dL 65 - 99 mg/dL [facility] Glucose [Mass/Vol] 98 mg/dL Normal 65-99 [facility] MAGNESIUMon 12-27-2023 Magnesium [Mass/Vol] 1.9 mg/dL Normal 1.8-2.6 [facility] Comment on above: Performed By: #### TIP CADET, , 58362-0 ####[facility] ([id number])[address] [facility], [address] [place] [address] Magnesiumon 12-27-2023 Magnesium [Mass/Vol] 1.9 mg/dL 1.8 - 2.6 mg/dL [facility] No Panel Informationon 12-27 [facility] TROPONIN Ion 12-27-2023 Troponin I.cardiac [Mass/Vol] ng/mL Normal 0.00-0.04 [facility] Comment on above: Performed By: #### TIP CADET, , 85285-6 ####[facility] ([id number])[address] [facility], [address] [place] [address] Troponin Ion 12-27-2023 Troponin I.cardiac [Mass/Vol] ng/mL 0.00 - 0.04 ng/mL [facility] Troponin I.cardiac [Mass/Vol ]on 12-27-2023 [facility] BASIC METABOLIC PANLon 12-26 Anion gap [Moles/Vol] 9 mmol/L Normal 5-15 [facility] Comment on above: Performed By: #### Sujey PÉREZ BMP #### [facility] ([id number]) [address], [address] [place] [address] Calcium [Mass/Vol] 9.4 mg/dL Normal 8.5-10.5 [facility] Comment on above: Performed By: #### C ELISA, BMP #### [facility] ([id number]) [address], [address] [place] [address] Chloride [Moles/Vol] 106 mmol/L Normal 98-109 [facility] Comment on above: Performed By: #### C ELISA, BMP #### [facility] ([id number]) [address], [address] [place] [address] CO2 [Moles/Vol] 25 mmol/L Normal 22-32 [facility] Comment on above: Performed By: #### C ELISA, BMP #### [facility] ([id number]) [address], [address] [place] [address] Creatinine [Mass/Vol] 0.63 mg/dL Normal 0.60-1.30 [facility] Comment on above: Result Comment: METH OD TRACEABLE TO IDMS STANDARD Performed By: #### Sujey PÉREZ, BMP #### [facility] ([id number]) [address], [address] [place] [address] eGFR (CKD-EPI) NON-RACE DEPENDENT >90 Normal >59 [facility] Comment on above: Result Comment: Reported eGFR is based on the CKD-EPI 2020 equation that does not use a race coefficient. Performed By: #### Sujey PÉREZ, BMP #### [facility] ([id number]) [address], [address] [place] [address] Glucose [Mass/Vol] 140 mg/dL High 65-99 [facility] Comment on above: Performed By: #### C ELISA, BMP #### [facility] ([id number]) [address], [address] [place] [address] Potassium [Moles/Vol] 4.6 mmol/L Normal 3.5-5.0 [facility] Comment on above: Performed By: #### Sujey PÉREZ, BMP #### [facility] ([id number]) [address] [place] [address] Sodium [Moles/Vol] 140 mmol/L Normal 134-146 [facility] Comment on above: Performed By: #### C BC, BMP #### [facility] ([id number]) [address], [address] [place] [address] Urea nitrogen [Mass/Vol] 17 mg/dL Normal 5-27 [facility] Comment on above: Performed By: #### C ELISA, BMP #### [facility] ([id number]) [address], [address] [place] [address] Basic Metabolic Panelon 12-06 Anion gap [Moles/Vol] 9 mmol/L 5 - 15 mmol/L [facility] Calcium [Mass/Vol] 9.4 mg/dL 8.5 - 10. 5 mg/dL [facility] Chloride [Moles/Vol] 106 mmol/L 98 - 109 mmol/L [facility] CO2 [Moles/Vol] 25 mmol/L 22 - 32 mmol/L [facility] Creatinine [Mass/Vol] 0.63 mg/dL 0.60 - 1.30 mg/dL [facility] Comment on above: METHOD TRACEABLE TO IDPA STANDARD eGFR (CKD-EPI)non-race dependent - PINF [facility] Comment on above: Reported eGFR is based on the CKD-EPI 2020 equation that does not use a race coefficient. Glucose [Mass/Vol] 140 mg/dL High 65 - 99 mg/dL [facility] Interpretation and review of laboratory results Abnormal [facility] Potassium [Moles/Vol] 4.6 mmol/L 3.5 - 5.0 mmol/L [facility] Sodium [Moles/Vol] 140 mmol/L 134 - 146 mmol/L [facility] Urea nitrogen [Mass/Vol] 17 mg/dL 5 - 27 mg/dL [facility] CBC without diffon Erythrocyte distribution width (RBC) [Ratio] 13.5 % 11.5 - 15.0 % [facility] Hematocrit (Bld) [Volume fraction] 37.5 % Low 39 - 49 % [facility] Hemoglobin (Bld) [Mass/Vol] 12.7 g/dL Low 13.0 - 17.0 g/dL [facility] Interpretation and review of laboratory results Abnormal [facility] MCH (RBC) [Entitic mass] 30.0 pg 27 - 34 pg [facility] MCHC (RBC) [Mass/Vol] 33.9 g/dL 32 - 36 g/dL [facility] MCV (RBC) [Entitic vol] 89 fL 80 - 100 fL [facility] Platelet mean volume (Bld) [Entitic vol] 7.2 fL 7 - 12 fL [facility] Platelets (Bld) [#/Vol] 264 10*3/uL [facility] RBC (Bld) [#/Vol] 4.23 10*6/uL [facility] WBC corrected for nucl RBC Auto (Bld) [#/Vol] 12.6 High [facility] COMPLETE BLOOD COUNTon 12-26 Erythrocyte distribution width (RBC) [Ratio] 13.5 % Normal 11.5-15.0 [facility] Comment on above: Performed By: #### C ELISA, BMP #### [facility] ([id number]) [address], [address] [place] [address] Hematocrit (Bld) [Volume fraction] 37.5 % Low 39-49 [facility] Comment on above: Performed By: #### C ELISA, BMP #### [facility] ([id number]) [address] [place] [address] Hemoglobin (Bld) [Mass/Vol] 12.7 g/dL Low 13.0-17.0 [facility] Comment on above: Performed By: #### C ELISA, BMP #### [facility] ([id number]) [address] [place] [address] MCH (RBC) [Entitic mass] 30.0 pg Normal 27-34 [facility] Comment on above: Performed By: #### C ELISA, BMP #### [facility] ([id number]) [address], [address] [place] [address] MCHC (RBC) [Mass/Vol] 33.9 g/dL Normal 32-36 [facility] Comment on above: Performed By: #### C ELISA, BMP #### [facility] ([id number]) [address], [address] [place] [address] MCV (RBC) [Entitic vol] 89 fL Normal 80-100 [facility] Comment on above: Performed By: #### C ELISA, BMP #### [facility] ([id number]) [address], [address] [place] [address] Platelet mean volume (Bld) [Entitic vol] 7.2 fL Normal 7-12 [facility] Comment on above: Performed By: #### C ELISA, BMP #### [facility] ([id number]) [address], [address] [place] [address] Platelets (Bld) [#/Vol] 264 10*3/uL Normal 150-450 [facility] Comment on above: Performed By: #### C ELISA, BMP #### [facility] ([id number]) [address], [address] [place] [address] RBC COUNT 4.23 X10E12/L Normal 4.10-5.70 [facility] Comment on above: Performed By: #### C ELISA, BMP #### [facility] ([id number]) [address], [address] [place] [address] WBC (Bld) [#/Vol] 12.6 10*3/uL High 4.0-11.0 [facility] Comment on above: Performed By: #### C ELISA, BMP #### [facility] ([id number]) [address], [address] [place] [address] ABO Rh Repeaton 12-25-2023 ABO AB [facility] Rh Nom (Bld) [facility] [place] FLUORO GUIDANCE SPINAL PU NCTURE [...] Miguel Avelar on 12/25/2023 4:51 PM Normal [facility] RF Guidance for injection of Spine [...] José Miguel Avelar on 12/25/2023 4:51 PM [facility] Radiology Study observation (narrative) [facility] RF Guidance for injection of Spine facet jointOrdered By: José Miguel Avelar on 12-25-2023 [facility] Work Phone: Bacteria identified Cx Nom ( U)on 12-21-2023 Service comment (Unsp spec) [Interp] <10,000 ORGANISMS/ML NORMAL URO GENITAL CORINA [facility] ABO Rh Repeaton 12-20-2023 ABO AB [facility] Rh Nom (Bld) Positive [facility] APTTon 12-20-2023 aPTT Coag (PPP) [Time] 31 s [facility] BASIC METABOLIC PANLon 12-20 Anion gap [Moles/Vol] 13 mmol/L Normal 5-15 [facility] Comment on above: Performed By: #### C BCA, PINR, 77235-0, BMP #### [facility] ([id number]) [address], [address] [place] [address] Calcium [Mass/Vol] 10.1 mg/dL Normal 8.5-10.5 [facility] Comment on above: Performed By: #### C BCA, PINR, 83719-8, BMP #### [facility] ([id number]) [address], [address] [place] [address] Chloride [Moles/Vol] 103 mmol/L Normal 98-109 [facility] Comment on above: Performed By: #### C BCA, PINR, 43427-0, BMP #### [facility] ([id number]) [address], [address] [place] [address] CO2 [Moles/Vol] 25 mmol/L Normal 22-32 [facility] Comment on above: Performed By: #### C BCA, PINR, 44721-6, BMP #### [facility] ([id number]) [address], [address] [place] [address] Creatinine [Mass/Vol] 0.76 mg/dL Normal 0.60-1.30 [facility] Comment on above: Result Comment: METH OD TRACEABLE TO IDMS STANDARD Performed By: #### C BCA, PINR, 08439-6, BMP #### [facility] ([id number]) [address], [address] [address] eGFR (CKD-EPI) NON-RACE DEPENDENT >90 Normal >59 [facility] Comment on above: Result Comment: Reported eGFR is based on the CKD-EPI 2020 equation that does not use a race coefficient. Performed By: #### C BCA, PINR, 48057-4, BMP #### [facility] ([id number]) [address] [address] Glucose [Mass/Vol] 85 mg/dL Normal 65-99 [facility] Comment on above: Performed By: #### C ALEN, PINR, 79266-7, BMP #### [facility] ([id number]) [address] [address] Potassium [Moles/Vol] 5.0 mmol/L Normal 3.5-5.0 [facility] Comment on above: Result Comment: SPEC IMEN HEMOLYZED, RESULTS INCREASED MODERATELY HEMOLYZED Performed By: #### C BCA, PINR, 68625-8, BMP #### [facility] ([id number]) [address] [address] Sodium [Moles/Vol] 141 mmol/L Normal 134-146 [facility] Comment on above: Performed By: #### C BCA, PINR, 41702-4, BMP #### [facility] ([id number]) [address] [address] Urea nitrogen [Mass/Vol] 20 mg/dL Normal 5-27 [facility] Comment on above: Performed By: #### C BCA, PINR, 96593-1, BMP #### [facility] ([id number]) [address] [address] Basic Metabolic Panelon 12-05 Anion gap [Moles/Vol] 13 mmol/L 5 - 15 mmol/L [facility] Calcium [Mass/Vol] 10.1 mg/dL 8.5 - 10. 5 mg/dL [facility] Chloride [Moles/Vol] 103 mmol/L 98 - 109 mmol/L [facility] CO2 [Moles/Vol] 25 mmol/L 22 - 32 mmol/L [facility] Creatinine [Mass/Vol] 0.76 mg/dL 0.60 - 1.30 mg/dL [facility] Comment on above: METHOD TRACEABLE TO IDPA STANDARD eGFR (CKD-EPI)non-race dependent - PINF [facility] Comment on above: Reported eGFR is based on the CKD-EPI 2020 equation that does not use a race coefficient. Glucose [Mass/Vol] 85 mg/dL 65 - 99 mg/dL [facility] Potassium [Moles/Vol] 5.0 mmol/L 3.5 - 5.0 mmol/L [facility] Comment on above: SPECIMEN HEMOLYZED, RESULTS INCREASED MODERATELY HEMOLYZED Sodium [Moles/Vol] 141 mmol/L 134 - 146 mmol/L [facility] Urea nitrogen [Mass/Vol] 20 mg/dL 5 - 27 mg/dL [facility] CBC AND AUTO DIFFon 12-20-19 24 ABSOLUTE BASOPHIL 0.1 X10E9/L Normal 0.0-0.2 [facility] Comment on above: Performed By: #### BUCKY Rm BCA, 15890-2, BMP #### [facility] ([id number]) [address], [address] [place] [address] ABSOLUTE NEUTROPHIL 4.4 X10E9/L Normal 1.5-6.6 [facility] Comment on above: Performed By: #### Sujey LOWRY PINR, 81405-0, BMP #### [facility] ([id number]) [address], [address] [place] [address] Basophils/100 WBC (Bld) 0.9 % Normal [facility] Comment on above: Performed By: #### Sujey LOWRY PINR, 06295-4, BMP #### [facility] ([id number]) [address], [address] [place] [address] Eosinophils (Bld) [#/Vol] 0.2 10*3/uL Normal 0.0-0.4 [facility] Comment on above: Performed By: #### C BUCKY LOWRY, 18560-2, BMP #### [facility] ([id number]) [address] [address] [place] [address] Eosinophils/100 WBC (Bld) 2.6 % Normal [facility] Comment on above: Performed By: #### C ALEN PINR, 27753-4, BMP #### [facility] ([id number]) [address] [address] [place] [address] Erythrocyte distribution width (RBC) [Ratio] 13.6 % Normal 11.5-15.0 [facility] Comment on above: Performed By: #### C ALEN PINTerese, 82074-9, BMP #### [facility] ([id number]) [address], [facility] [address] [place] [address] Hematocrit (Bld) [Volume fraction] 45.1 % Normal 39-49 [facility] Comment on above: Performed By: #### C ALEN, PINR, 78924-6, BMP #### [facility] ([id number]) [address] [address] [place] [address] Hemoglobin (Bld) [Mass/Vol] 15.5 g/dL Normal 13.0-17.0 [facility] Comment on above: Performed By: #### C ALEN, PINR, 96031-3, BMP #### [facility] ([id number]) [address] [address] [place] [address] Lymphocytes (Bld) [#/Vol] 1.5 10*3/uL Normal 1.0-3.5 [facility] Comment on above: Performed By: #### C ALEN, PINR, 87734-0, BMP #### [facility] ([id number]) [address] [address] [place] [address] Lymphocytes/100 WBC (Bld) 21.7 % Normal [facility] Comment on above: Performed By: #### C ALEN, PINR, 83248-5, BMP #### [facility] ([id number]) [address], [address] [place] [address] MCH (RBC) [Entitic mass] 30.2 pg Normal 27-34 [facility] Comment on above: Performed By: #### C ALEN, PINR, 89185-6, BMP #### [facility] ([id number]) [address] [place] [address] MCHC (RBC) [Mass/Vol] 34.4 g/dL Normal 32-36 [facility] Comment on above: Performed By: #### Sujey LOWRY PINR, 56049-0, BMP #### [facility] ([id number]) [address] [place] [address] MCV (RBC) [Entitic vol] 88 fL Normal 80-100 [facility] Comment on above: Performed By: #### Sujey LOWRY, PINR, 85068-9, BMP #### [facility] ([id number]) [address], [address] [place] [address] Monocytes (Bld) [#/Vol] 1.0 10*3/uL High 0-0.9 [facility] Comment on above: Performed By: #### Sujey LOWRY, PINR, 11604-7, BMP #### [facility] ([id number]) [address], [address] [place] [address] Monocytes/100 WBC (Bld) 13.6 % Normal [facility] Comment on above: Performed By: #### Sujey LOWRY, PINR, 50085-5, BMP #### [facility] ([id number]) [address], [address] [place] [address] Neutrophils/100 WBC (Bld) 61.2 % Normal [facility] Comment on above: Performed By: #### Sujey LOWRY, PINR, 81356-1, BMP #### [facility] ([id number]) [address], [address] [place] [address] Platelet mean volume (Bld) [Entitic vol] 7.8 fL Normal 7-12 [facility] Comment on above: Performed By: #### Sujey LOWRY PINR, 54567-4, BMP #### [facility] ([id number]) [address], [facility] [address] [place] [address] Platelets (Bld) [#/Vol] 269 10*3/uL Normal 150-450 [facility] Comment on above: Performed By: #### Sujey LOWRY PINR, 83516-1, BMP #### [facility] ([id number]) [address], [facility] [address] [place] [address] RBC COUNT 5.12 X10E12/L Normal 4.10-5.70 [facility] Comment on above: Performed By: #### Sujey LOWRY, PINR, 34589-3, BMP #### [facility] ([id number]) [address], [address] [address] WBC (Bld) [#/Vol] 7.1 10*3/uL Normal 4.0-11.0 [facility] Comment on above: Performed By: #### Sujey LOWRY, PINR, 15637-2, BMP #### [facility] ([id number]) [address], [facility] [address] [place] [address] CBC auto differentialon 12-05 Basophils (Bld) [#/Vol] 0.1 10*3/uL [facility] Basophils/100 WBC (Bld) 0.9 % [facility] Eosinophils (Bld) [#/Vol] 0.2 10*3/uL [facility] Eosinophils/100 WBC (Bld) 2.6 % [facility] Erythrocyte distribution width (RBC) [Ratio] 13.6 % 11.5 - 15.0 % [facility] Hematocrit (Bld) [Volume fraction] 45.1 % 39 - 49 % [facility] Hemoglobin (Bld) [Mass/Vol] 15.5 g/dL 13.0 - 17.0 g/dL [facility] Interpretation and review of laboratory results Abnormal [facility] Lymphocytes (Bld) [#/Vol] 1.5 10*3/uL [facility] Lymphocytes/100 WBC (Bld) 21.7 % [facility] MCH (RBC) [Entitic mass] 30.2 pg 27 - 34 pg [facility] MCHC (RBC) [Mass/Vol] 34.4 g/dL 32 - 36 g/dL [facility] MCV (RBC) [Entitic vol] 88 fL 80 - 100 fL [facility] Monocytes (Bld) [#/Vol] 1.0 10*3/uL High [facility] Monocytes/100 WBC (Bld) 13.6 % [facility] Neutrophils (Bld) [#/Vol] 4.4 10*3/uL [facility] Neutrophils/100 WBC (Bld) 61.2 % [facility] Platelet mean volume (Bld) [Entitic vol] 7.8 fL 7 - 12 fL [facility] Platelets (Bld) [#/Vol] 269 10*3/uL [facility] RBC (Bld) [#/Vol] 5.12 10*6/uL [facility] WBC corrected for nucl RBC Auto (Bld) [#/Vol] 7.1 [facility] No Panel Informationon 12-20 [facility] PROTIME AND INRon 12-20-2023 INR Coag (PPP) [Relative time] 1.0 {INR} Normal 0.8-1.1 [facility] Comment on above: Performed By: #### C BCA, PINR, 74361-1, BMP #### [facility] ([id number]) [address] [facility] [place] [address] PT Coag (PPP) [Time] 11.3 s Normal 9.8-13.2 [facility] Comment on above: Performed By: #### C BCA, PINR, 97710-9, BMP #### [facility] ([id number]) [address] [facility] [place] [address] Protime & INRon 12-20-2023 INR Coag (PPP) [Relative time] 1.0 {INR} [facility] PT Coag (PPP) [Time] 11.3 s [facility] Type and screenon 12-20-[address] [facility] Rh Nom (Bld) Positive [facility] URINALYSISon 12-20-2023 Bilirubin Ql (U) Negative Normal NEG [facility] BLOOD/HGB Negative Normal NEG [facility] Color (U) YELLOW Normal YELLOW [facility] Glucose Ql (U) Negative Normal NEG [facility] Ketones Ql (U) Negative Normal NEG [facility] Leukocyte esterase Test strip Ql (U) Negative Normal NEG [facility] MUCOUS PRESENT Abnormal NONE [facility] Nitrite Ql (U) Negative Normal NEG [facility] pH (U) 6.0 [pH] Normal 5.0-8.5 [facility] Protein Ql (U) Trace Abnormal NEG [facility] R.B.CELLS 2 /hpf Normal 0-5 [facility] Specific gravity (U) [Rel density] 1.026 Normal 1.003-1.035 [facility] TURBIDITY CLEAR Normal CLEAR [facility] Urobilinogen (U) [Mass/Vol] mg/dL Normal <1.1 [facility] W.B.CELLS 2 /hpf Normal 0-5 [facility] URINE CULTUREon 12-20-2023 Bacteria identified Cx Nom (U) CULTURE RESULTS <10,000 ORGANISMS/ML NORMAL URO GENITAL CORINA Normal [facility] Comment on above: Performed By: #### 6 30-4 #### [facility] ([id number]) [address], [address] [place] [address] Urinalysison 12-20-2023 Bilirubin Ql (U) Negative Negative^Ne ga tive [facility] Color (U) YELLOW YELLOW^YELLOW [facility] Glucose (U) [Mass/Vol] Negative Negative^Nega tive mg/dL [facility] Hemoglobin Auto test strip Ql (U) Negative Negative^Nega tive [facility] Interpretation and review of laboratory results Abnormal [facility] Ketones (U) [Mass/Vol] Negative Negative^Nega tive mg/dL [facility] Leukocyte esterase Auto test strip Ql (U) Negative Negative^Nega tive [facility] Mucus Ql (Urine sed) PRESENT Abnormal NONE^NONE [facility] Nitrite Auto test strip Ql (U) Negative Negative^Nega tive [facility] pH (U) 6.0 [pH] 5.0 - 8.5 [facility] Protein (U) [Mass/Vol] Trace Abnormal Negative^Nega tive mg/dL [facility] RBC Auto (Urine sed) [#/Area] 2 [facility] Specific gravity Refractometry automated (U) [Rel density] 1.026 1.003 - 1.035 [facility] Turbidity Ql (U) CLEAR CLEAR^CLEAR [facility] Urobilinogen Qn (U) NINF [facility] WBC Auto (Urine sed) [#/Area] 2 [facility] aPTT Coag (PPP) [Time]on aPTT Coag (Bld) [Time] 31 s Normal 26-37 [facility] Comment on above: Performed By: #### C ALEN, PINR, 44594-8, BMP #### [facility] ([id number]) [address], [address] [place] [address] XR SPINE LUMB BENDING ONLY 2 -3 [...] Morrell MD on 11/16/2023 8:57 PM Normal [facility] MR LUMBAR SPINE WO CONTon MR [...] Shaggy Ortega MD on 11/01/2023 10:24 AM [facility] XR shoulder RT min 2V*on XR shoulder RT min 2V* [facility] Main [place] [address] [place] [address] XRay Report Signed Patient: Regan Green MR#: [id number] 63 : 1950 Acct:[id number] Age/Sex: 73 / M ADM Date: 06/24/23 Loc: [facility] Room: Type: [facility] Attending Dr: Charity Barkley MD Copies to: [...] Artie Goldsmith M.D.06/24/2023 12:37 PM Dictation Location: [place] [address] Transcribed By: [facility] 06/24/23 9237 Dictated By: Artie Goldsmith DO 06/24/23 1236 Signed By: 06/24/23 1237 Normal [facility]on SARS-CoV-2 (COVID-19) RNA YASMIN+probe Ql (Unsp spec) Not detected Normal NOT DETECTED [facility] Comment on above: Result Comment: This test is not yet approved or cleared by the [place] FDA. When there are no FDA-approved or cleared tests available, and other criteria are met, FDA can make tests available under an emergency access mechanism called an Emergency Use Authorization (EUA). The EUA for this test is supported by the [place] of Health and Human Service's (HHS's) declaration [...] consistent with SARS-CoV-2. Performed By: #### C [facility] #### [facility] [address] [place] [address] Dr. Keely Fitzgerald MRI Shoulder w/o Lefton [...] by Boogie Modi on 02/23/2022 1229 Normal [facility] Dump Grounds Checker PELVIS 1 OR 2 [facility] 04-16-20 PELVIS 1 OR [facility] [place] [address] ========Patient Name: REGAN GREEN : 1950ex: MAge: Race: WhiteMRN: [id number]. Location: 84Patient Status: OVisit #: [id number] Date: 04/16/2018 9:20:00 AMCompleted Date: 04/16/2018 09:18 AMRequesting Provider: BILLY KILLIAN Attending Provider: BILLY KILLIAN Report Copy To: Signs & Symptoms: M46.1 Sacroiliitis, not elsewhere classified R48Qiggodu: AthenaComments: , , , Ordering Provider - BILLY KILLIAN MD , Exam: PELVIS 1 OR 2 VWSAccession #: [id number] PELVIS 1 OR 2 VWS 04/16/2018 9:18 [...] fracture Electronically signed by:Lea Le. Transcribed by: [email or web address], User Resident: Electronically Signed by: LEA LE @ 04/16/2018 10:35 AM Normal [facility] Comment on above: Order Comment: , , = ========= , Ordering Provider - BILLY KILLIAN MD , Vital Signs Date Time Vital Sign Value Performing Clinician Facility 08-11-2024 09:120400 Body height 182.9 cm Sumanth Hill MD Work Phone: [facility] 08-11-2024 09:120400 Body mass index (BMI) [Ratio] 30.04 kg/m2 [facility] 08-11-2024 09:120400 Body temperature 96.8 [degF] [facility] 08-11-2024 09:120400 Body weight 100.47 kg Sumanth Hill MD Work Phone: [facility] 08-11-2024 09:12-0400 Diastolic blood pressure 82 mm[Hg] Sumanth Hill MD Work Phone: [facility] 08-11-2024 09:12-0400 Systolic blood pressure 134 mm[Hg] Sumanth Hill MD Work Phone: [facility] 12-27-2023 11:46-0500 Body temperature 98.29 [degF] Mayco Nolen MD Work Phone: [facility] 12-27-2023 11:46-0500 Diastolic blood pressure 77 mm[Hg] Mayco Nolen MD Work Phone: [facility] 12-27-2023 11:46-0500 Heart rate 84 /min Mayco Nolen MD Work Phone: [facility] 12-27-2023 11:46-0500 Respiratory rate 14 /min Mayco Nolen MD Work Phone: [facility] 12-27-2023 11:46-0500 Systolic blood pressure 127 mm[Hg] Mayco Nolen MD Work Phone: [facility] 12-27-2023 04:23-0500 SaO2% (BldA) [Mass fraction] 94 % Mayco Nolen MD Work Phone: [facility] 12-25-2023 22:54-0500 Body mass index (BMI) [Ratio] 28.76 kg/m2 Mayco Nolen MD Work Phone: [facility] 12-25-2023 22:54-0500 Body weight 96.2 kg Mayco Nolen MD Work Phone: [facility] 12-25-2023 13:27-0500 Body height 182.9 cm Mayco Nolen MD Work Phone: [facility] 12-20-2023 14:20-0500 Body height 182.9 cm [facility] 9 [facility] 12-20-2023 14:20-0500 Body mass index (BMI) [Ratio] 29.39 kg/m2 [facility] 9 [facility] 12-20-2023 14:20-0500 Body temperature 97.7 [degF] [facility] 9 [facility] 12-20-2023 14:20-0500 Body weight 98.3 kg [facility] 9 [facility] 12-20-2023 14:20-0500 Diastolic blood pressure 84 mm[Hg] [facility] 9 [facility] 12-20-2023 14:20-0500 Heart rate 77 /min [facility] 9 [facility] 12-20-2023 14:20-0500 Respiratory rate 18 /min [facility] 9 [facility] 12-20-2023 14:20-0500 SaO2% (BldA) [Mass fraction] 97 % [facility] 9 [facility] 12-20-2023 14:20-0500 Systolic blood pressure 132 mm[Hg] [facility] 9 [facility] 11-14-2023 09:59-0500 Body height 180.3 cm Carl Sosa ARMAMENT REPAIRER-CONTENT ARCHITECT Work Phone: [facility] 11-14-2023 09:59-0500 Body mass index (BMI) [Ratio] 29.57 kg/m2 Carlpadilla Sosa ARMAMENT REPAIRER-CONTENT ARCHITECT Work Phone: [facility] 11-14-2023 09:59-0500 Body weight 96.16 kg Carlpadilla Sosa ARMAMENT REPAIRER-CONTENT ARCHITECT Work Phone: [facility] 11-14-2023 09:59-0500 Diastolic blood pressure 86 mm[Hg] Carl Sosa ARMAMENT REPAIRER-CONTENT ARCHITECT Work Phone: [facility] 11-14-2023 09:59-0500 Heart rate 81 /min Carl Sosa ARMAMENT REPAIRER-CONTENT ARCHITECT Work Phone: [facility] 11-14-2023 09:59-0500 Systolic blood pressure 135 mm[Hg] Carl Sosa ARMAMENT REPAIRER-CONTENT ARCHITECT Work Phone: [facility] 05-21-2023 10:00-0400 Body height 182.88 cm Charity Barkley Other [facility] Other 05-21-2023 10:00-0400 Body mass index (BMI) [Ratio] 30.51 kg/m2 Charity Barkley Other [facility] Other 05-21-2023 10:00-0400 Body weight 102.06 kg Charity Barkley Other [employer] Other Encounters Encounter Date Encounter Type Care Provider Facility Start: 08-26-2024 End: 08-26-2024 Orders Only Sumanth Hill MD Work Phone: [facility] Start: 08-25-2024 End: 08-25-2024 ambulatory FINLEY Kailyn [facility] Start: 08-11-2024 End: 08-11-2024 ambulatory [facility] Start: 08-11-2024 Encounter for genera l adult medical examination without abnormal findings [facility] Start: 08-11-2024 End: 08-11-2024 Patient encounter procedure Sumanth Hill MD Work Phone: [facility] Comment on above: Routine general medi farida examination at a health care facility (Primary Dx); Lumbar radiculopathy, chronic; Spondylolisthesis of lumbar region; Pure hypercholesterolemia; Adenocarcinoma of prostate ([facility]) Start: 08-11-2024 End: 08-11-2024 Patient encounter status Sumanth Hill MD Work Phone: [facility] Work Phone: Start: 07-31-2024 End: 07-31-2024 ambulatory [facility] Work Phone: Start: 07-31-2024 End: 07-31-2024 Patient encounter procedure [facility] Work Phone: Start: 07-01-2024 End: 07-03-2024 Chart abstracting Unk Pcp (Hist) Neurology Start: 06-18-2024 End: 06-18-2024 ambulatory KING CLARK Not Available Start: 06-04-2024 End: 06-04-2024 ambulatory SUMANTH Borges MANJUPELON [facility] Start: 06-02-2024 End: 06-02-2024 ambulatory JESSICA REYES Not Available Start: 05-22-2024 End: 05-22-2024 ambulatory [facility] Work Phone: Start: 05-22-2024 End: 05-22-2024 Patient encounter procedure [facility] Work Phone: Start: 05-12-2024 End: 06-04-2024 ambulatory [facility] Start: 04-28-2024 End: 04-28-2024 ambulatory MINH Ahu[facility] Start: 04-27-2024 End: 05-04-2024 ambulatory [facility] Start: 04-23-2024 End: 04-23-2024 ambulatory [facility] Start: 04-23-2024 End: 04-23-2024 ambulatory [facility] Start: 04-21-2024 End: 04-21-2024 ambulatory [facility] Start: 04-06-2024 End: 05-04-2024 ambulatory [facility] Start: 03-04-2024 End: 04-04-2024 ambulatory [facility] Start: 02-14-2024 End: 03-04-2024 ambulatory [facility] Start: 02-12-2024 End: 02-12-2024 ambulatory [facility] Start: 01-29-2024 End: 01-29-2024 ambulatory [facility] Work Phone: Start: 01-29-2024 End: 01-29-2024 Patient encounter procedure [facility] Work Phone: Start: 12-28-2023 End: 12-28-2023 ambulatory MARIA M VÁSQUEZ [facility] Start: 12-25-2023 End: 12-28-2023 ambulatory [place] [facility] Start: 12-25-2023 End: 12-27-2023 ambulatory [place] [facility] Start: 12-25-2023 End: 12-27-2023 Subsequent hospital visit by physician Mayco Nolen MD Work Phone: [facility] Comment on above: Radiculopathy, lumba r region; Neurogenic claudication Start: 12-24-2023 Telephone encounter [facility] Comment on above: surgery Start: 12-20-2023 Telephone encounter Hoda Chirinos [facility] Start: 12-20-2023 End: 12-20-2023 Patient encounter [facility] Comment on above: Radiculopathy, lumba r region; Neurogenic claudication; Monitoring for anticoagulant use; Abnormal urine findings Start: 12-20-2023 End: 12-20-2023 ambulatory [place] [facility] Start: 12-18-2023 Documentation procedure Jasmin Noriega ARMAMENT REPAIRER-CONTENT ARCHITECT Work Phone: [facility] Start: 12-10-2023 Telephone encounter Myrtle Hatch LPN [facility] Comment on above: surgery Start: 12-05-2023 End: 01-03-2024 ambulatory CARL [facility] Start: 11-27-2023 Telephone encounter [facility] Start: 11-22-2023 End: 12-05-2023 ambulatory CARL [facility] Start: 11-18-2023 End: 11-19-2023 ambulatory Rosales Corona MD Facility:[facility] Start: 11-14-2023 End: 11-14-2023 ambulatory CARL [facility] Start: 11-14-2023 End: 11-14-2023 Office outpatient new 45 minutes Carl Sosa ARMAMENT REPAIRER-CONTENT ARCHITECT Work Phone: [facility] Comment on above: Neurogenic claudicat ion (Primary Dx); Lumbar radiculopathy, chronic Start: 11-14-2023 End: 11-14-2023 ambulatory [facility] Start: 11-05-2023 Telephone [facility] Comment on above: Er Follow-up Lumbar radiculopathy , chronic (Primary Dx) Start: 11-01-2023 End: 11-01-[address] [facility] Start: 10-31-2023 End: 10-31-2023 Emergency department patient visit [facility] Start: 10-30-2023 End: 10-30-2023 ambulatory Charity Barkley Other [facility] Other Start: 10-30-2023 Office outpatient vi sit 15 minutes Charity Calvey [facility] Start: 10-22-2023 End: 10-23-2023 Emergency department [facility] [facility] Start: 08-20-2023 End: 08-20-2023 ambulatory Charity Barkley Other [facility] Other Start: 08-20-2023 Office outpatient vi sit 15 minutes Charity Deshawney [facility] Start: 07-23-2023 End: 07-23-2023 ambulatory Charity Calvey Other [facility] Other Start: 07-23-2023 Office outpatient vi sit 15 minutes Charity Calvey [facility] Start: 06-24-2023 Office outpatient vi sit 15 minutes Charity Calvey [facility] Start: 06-24-2023 End: 06-24-2023 Patient encounter procedure MD Charity Barkley Work Phone: [facility] Start: 06-24-2023 End: 06-24-2023 ambulatory NON STAFF [facility] Work Phone: Start: 05-21-2023 Office outpatient ne w 30 minutes Charity ELY [facility] Start: 05-21-2023 End: 05-21-2023 ambulatory MD Charity Barkley Work Phone: [facility] Work Phone: Start: 05-21-2023 End: 05-21-2023 Patient encounter procedure MD Charity Barkley Work Phone: [facility] Start: 03-19-2023 End: 03-20-2023 ambulatory NARENDRANATH LAKSHMIPATHY . Facility:[facility] Start: 02-21-2023 End: 02-22-2023 ambulatory NARENDRANATH SHEYSHMIPATHY . Facility:[facility] Start: 12-18-2022 End: 12-19-[address] ROMERO SOSA . Facility:[facility] Start: 11-22-2022 End: 11-23-[address] ROMERO SOSA . Facility:[facility] Start: 10-11-2022 Encounter for preprocedural laboratory examination DR ROMERO SOSA . [facility] Start: 10-09-2022 End: 10-09-[address] ROMERO SOSA . Facility:[facility] Start: 10-05-2022 End: 10-06-[address] ROMERO SOSA . Facility:[facility] Start: 10-05-2022 End: 10-06-2022 Encounter for preprocedural laboratory examination DR ROMERO SOSA . Facility:[facility] Start: 10-01-2022 Encounter for preprocedural cardiovascular examination ISELA SALMERON . [facility] Start: 09-26-2022 End: 09-27-2022 ambulatory ISELA [...] Start: 04-16-2018 End: 04-17-2018 Ambulatory BILLY KILLIAN Facility:[facility] Start: 01-28-2018 End: 01-29-2018 Ambulatory DEFAULT PHYSICIAN Facility:[facility] Procedures Date Procedure Procedure Detail Performing Clinician Start: 08-11-2024 Adult depression scr eening assessment Sumanth Hill MD Work Phone: Start: 04-23-2024 Follow-up visit Follow-up MAYCO NOLEN Start: 12-27-2023 Ecg routine ecg w/le ast 12 lds trcg only w/o i&r Christina Varma ARMAMENT REPAIRER-CONTENT ARCHITECT Work Phone: Start: 12-27-2023 End: 12-27-2023 Basic metabolic panel calcium total Christina Varma ARMAMENT REPAIRER-CONTENT ARCHITECT Work Phone: Start: 12-26-2023 Basic metabolic pane l calcium total Christina Varma ARMAMENT REPAIRER-CONTENT ARCHITECT Work Phone: Start: 12-25-2023 Fluor needle/cath spine/paraspinal [...] urine Mayco Nolen MD Work Phone: Start: 07-30-2023 Lipid 1996 panel - S kenji or Plasma Unk (Hist) Start: 07-29-2023 Adult depression scr eening assessment Dolores Anderson CMA Start: 06-24-2023 Plain X-ray of right shoulder MD Charity Barkley Work Phone: Start: 05-21-2023 Plain X-ray of left hand MD Charity Barkley Work Phone: Start: 03-25-2023 Colonoscopy Unk (Hist) Plan of Treatment Date Care Activity Detail Author Start: 07-30-2028 Lipid panel Lipid Screening [facility] Start: 12-27-2026 Diabetes Screening Diabetes Screening [facility] Start: 08-18-2025 End: 08-18-2025 Patient encounter procedure 08/18/2025 8:00 AM EDT [facility] [address] [place] [phone] [facility] Start: 08-11-2025 Adult BMI Screening Adult BMI Screening [facility] Start: 08-11-2025 Depression Screening Depression Screening [facility] Start: 08-11-2025 Fall Risk Screening Fall Risk Screening [facility] Start: 08-11-2025 Medicare Annual Wellness Visit Medicare Annual Wellness Visit [facility] Start: 08-11-2025 Tobacco Screening Tobacco Screening [facility] Start: 06-04-2025 Tobacco Screening Tobacco Screening [facility] Start: 12-25-2024 Adult BMI Screening Adult BMI Screening [facility] Start: 12-25-2024 Tobacco Screening Tobacco Screening [facility] Start: 12-20-2024 Adult BMI Screening Adult BMI Screening [facility] Start: 12-20-2024 Tobacco Screening Tobacco Screening [facility] Start: 11-14-2024 Adult BMI Screening Adult BMI Screening [facility] Start: 11-14-2024 Tobacco Screening Tobacco Screening [facility] Start: 10-31-2024 Tobacco Screening Tobacco Screening [facility] Start: 10-23-2024 Fall Risk Screening Fall Risk Screening [facility] Start: 10-22-2024 Adult BMI Screening Adult BMI Screening [facility] Start: 08-11-2024 End: 08-11-2025 CBC W Auto Differential panel - Blood CBC auto differential Lab Routine Pure hypercholesterolemia Expected: 08/11/2024, Expires: 08/11/2025 [facility] Work Phone: Comment on above: Expected: 08/11/2024, Expires: Start: 08-11-2024 End: 08-11-2025 Comprehensive metabolic 2000 panel - Serum or Plasma Comprehensive metabolic panel Lab Routine Pure hypercholesterolemia Expected: 08/11/2024, Expires: 08/11/2025 [facility] Comment on above: Expected: 08/11/2024, Expires: Start: 08-11-2024 End: 08-11-2025 Lipid 1996 panel - Serum or Plasma Lipid profile Lab Routine Pure hypercholesterolemia Expected: 08/11/2024, Expires: 08/11/2025 [facility] Comment on above: Expected: 08/11/2024, Expires: Start: 08-11-2024 End: 08-11-2025 Thyroid profile includes TSH FT4 Thyroid profile includes TSH FT4 Lab Routine Pure hypercholesterolemia Expected: 08/11/2024, Expires: 08/11/2025 [facility] Comment on above: Expected: 08/11/2024, Expires: Start: 08-11-2024 End: 08-11-2024 Patient encounter procedure 08/11/2024 9:00 AM EDT Office Visit [facility] [address] [place] [address] Sumanth Hill MD [address] [facility], [place] [id number] [facility] Start: 07-30-2024 End: 07-30-2024 Patient encounter procedure 07/30/2024 8:30 AM EDT Office Visit [facility] [address] [phone] Sumanth Hill MD [address] [place], [place] [phone] [facility] Start: 07-29-2024 Depression Screening Depression Screening [facility] Start: 07-29-2024 Medicare Annual Wellness Visit Medicare Annual Wellness Visit [facility] Start: 07-05-2024 COVID-19 Vaccine () COVID-19 Vaccine () [facility] Start: 07-05-2024 Influenza vaccination Influenza Vaccine (#1) [facility] Start: 04-21-2024 End: 04-21-2024 Patient encounter procedure 04/21/2024 1:45 PM EDT Office Visit [facility] [address] [place] [address] [place] [address] Minh Heller MD [address] [place] [address] [facility] Start: 03-25-2024 Screening for malignant neoplasm of colon [facility] Start: 02-13-2024 End: 02-13-2024 Patient encounter procedure 02/13/2024 1:50 PM EDT Office Visit [facility] [address] [place] [phone] Mayco Nolen MD [address] [place] [address] [address] [place] [phone] [facility] Start: 12-25-2023 End: 12-25-2023 Admission to same day surgery center 12/25/2023 2:45 PM EST - 12/25/2023 4:45 PM EST Surgery [facility] [address] [place] [phone] Mayco Nolen MD [address] [place] [address] [address] [place] [phone] LAMINECTOMY LUMBAR MULTI LEVEL / L2-L5 [facility] Comment on above: LAMINECTOMY LUMBAR MULTI LEVEL / L2-L5 Start: 12-25-2023 End: 12-25-2023 LAMINECTOMY LUMBAR MULTI LEVEL [facility] Start: 12-25-2023 Subsequent hospital visit by physician 12/25/2023 2:45 PM EST Hospital Encounter [facility] [address] [place] [address] Mayco Nolen MD [address] [place] [address] [address] [place] [phone] [facility] Start: 12-06-2023 End: 12-06-2023 Patient encounter procedure 12/06/2023 7:00 AM EST Appointment [facility] [address] [place] [phone] [facility] Start: 11-14-2023 End: 11-14-2024 XR Lumbar spine Views AP W right bending and W left bending [facility] Work Phone: Comment on above: Expected: 11/14/2023, Expires: Start: 11-04-2023 Advance Directive Discussion Advance Directive Discussion [facility] Start: 07-05-2023 Covid-19 Vaccine ( season) Covid-19 Vaccine ( season) [facility] Start: 07-05-2023 COVID-19 Vaccine ( season) COVID-19 Vaccine ( season) [facility] Start: 2017 Abdominal aortic aneurysm screening Abdominal Aortic Aneurysm (AAA) Screen [facility] Start: 07-24-2013 Administration of varicella zoster vaccine Zoster (Shingles) Vaccine (1 of 2) [facility] Start: 07-24-2013 Shingrix Vaccine (2 of 3) Shingrix Vaccine (2 of 3) [facility] Start: 2012 RSV Vaccine (1 - 1-dose 60+ series) RSV Vaccine (1 - 1-dose 60+ series) [facility] Start: 1997 Screening for malignant neoplasm of colon [facility] Start: 1971 DTaP,Tdap and Td Vaccines (1 - Tdap) DTaP,Tdap and Td Vaccines (1 - Tdap) [facility] Start: 1971 Urine microalbumin profile DTaP,Tdap,Td Vaccine (1 - Tdap) [facility] Start: 1970 Adult BMI Follow Up Plan Adult BMI Follow Up Plan [facility] Start: 1970 Anxiety Screening Anxiety Screening [facility] Start: 1970 Depression Screening Depression Screening [facility] Start: 1970 Hepatitis C screening Hepatitis C Screening [facility] Start: 1952 Abdominal aortic aneurysm screening Abdominal Aortic Aneurysm Screening [facility] Immunizations Immunization Date Immunization Notes Care Provider Fa cility 07-09-2024 influenza, high dose seasonal, preservative-free Sumanth Hill MD Work Phone: [facility] 07-09-2024 Pneumococcal Conjuga te 20-valent Sumanth Hill MD Work Phone: [facility] 08-05-2023 Influenza, High-dose , Quadrivalent Sumanth Hill MD Work Phone: [facility] 08-05-2023 RSV, bivalent, prote in subunit RSVpreF, diluent reconstituted, 0.5 mL, PF Sumanth Hill MD Work Phone: [facility] 08-20-2022 Influenza, High-dose , Quadrivalent Dolores [facility] 08-20-2022 influenza virus vacc ine, unspecified formulation Unk (Hist) [facility] 04-26-2022 influenza, injectabl e, quadrivalent, preservative free Dolores [facility] 09-18-2021 influenza, injectabl e, quadrivalent, preservative free Dolores [facility] 07-20-2020 Influenza, High-dose , Quadrivalent Dolores [facility] 08-11-2019 influenza, high dose seasonal, preservative-free Dolores [facility] 08-11-2019 pneumococcal polysaccharide vaccine, 23 valent Dolores [facility] 07-31-2018 influenza, injectabl e, quadrivalent, preservative free Dolores [facility] 11-20-2017 influenza, seasonal, injectable, preservative free Dolores [facility] 11-20-2017 pneumococcal conjuga te vaccine, 13 valent Dolores [facility] 08-19-2013 pneumococcal polysaccharide vaccine, 23 valent Dolores [facility] 05-29-2013 zoster vaccine, live Dolores [facility] 05-29-2013 zoster vaccine, unspecified formulation Dolores [facility] 08-18-2012 influenza virus vacc ine, whole virus Dolores [facility] 08-13-2012 pneumococcal polysaccharide vaccine, 23 valent Dolores [facility] 08-13-2012 zoster vaccine, live Dolores [facility] 09-03-2011 influenza virus vacc ine, whole virus Dolores [facility] 09-11-2010 influenza virus vacc ine, whole virus Dolores [facility] 08-22-2009 influenza virus vacc ine, whole virus Dolores [facility] Payers Date Payer Category Payer Worker's Compensation [id number] 2023 Self-pay [id number] 2023 Unknown [id number] 2019 Commercial Indemnity [facility] [id number] 2019 Unknown 2017 Medicare [id number] 1959 Medicare [id number] 1959 Unknown [id number] 1959 Unknown [id number] 1952 Unknown [id number] 2.16.840.1.796729.3.579.2.5 1952 Unknown [id number] 2.16.840.1.426450.3.579.2.5 1952 Unknown [id number] 2.16.840.1.236538.3.579.2.5 1952 Unknown [id number] 2.16.840.1.694418.3.579.2.5 1952 Unknown [id number] 2.16.840.1.013952.3.579.2.5 1952 Unknown [id number] 2.16.840.1.656832.3.579.2.5 1952 Unknown [id number] 2.16.840.1.160974.3.579.2.5 1952 Unknown [id number] 2.16.840.1.342642.3.579.2.5 1952 Unknown [id number] 2.16.840.1.029304.3.579.2.5 1952 Unknown [id number] 2.16.840.1.089085.3.579.2.5 1952 Unknown [id number] 2.16.840.1.534655.3.579.2.5 1952 Unknown [id number] 2.16.840.1.952037.3.579.2.1 96 1952 Unknown [id number] 2.16.840.1.301484.3.579.2.1 286 1952 Unknown [id number] 2.16.840.1.303563.3.579.2.1 286 1952 Unknown [id number] 2.16.840.1.897149.3.579.2.1 286 1952 Unknown [id number] 2.16.840.1.357767.3.579.2.1 286 1952 Unknown [id number] 2.16.840.1.298434.3.579.2.1 286 1952 Unknown [id number] 2.16.840.1.105886.3.579.2.1 286 1952 Unknown [id number] 2.16.840.1.571007.3.579.2.1 286 1952 Unknown [id number] 2.16.840.1.588189.3.579.2.1 286 1952 Unknown [id number] 2.16.840.1.134849.3.579.2.1 259 1952 Unknown [id number] 2.16.840.1.200339.3.579.2.1 259 1952 Unknown [id number] 2.16.840.1.092253.3.579.2.1 286 1952 Unknown [id number] 2.16.840.1.680848.3.579.2.1 286 1952 Unknown [id number] 2.16.840.1.161819.3.579.2.1 286 1952 Unknown [id number] 2.16.840.1.092851.3.579.2.1 286 1952 Unknown [id number] 2.16.840.1.417712.3.579.2.1 286 1952 Unknown [id number] 2.16.840.1.588917.3.579.2.1 286 1952 Unknown [id number] 2.16.840.1.717482.3.579.2.1 286 1952 Unknown [id number] 2.16.840.1.142145.3.579.2.1 286 1952 Unknown [id number] 2.16.840.1.867104.3.579.2.1 286 1952 Unknown [id number] 2.16.840.1.488976.3.579.2.1 1952 Unknown [id number] 2.16.840.1.502971.3.579.2.1 1952 Unknown [id number] 2.16.840.1.629475.3.579.2.1 1952 Unknown [id number] 2.16.840.1.496991.3.579.2.1 1952 Unknown [id number] 2.16.840.1.221426.3.579.2.1 1952 Unknown [id number] 2.16.840.1.916701.3.579.2.1 1952 Unknown [id number] 2.16.840.1.821625.3.579.2.1 1952 Unknown [id number] 2.16.840.1.174842.3.579.2.1 1952 Unknown [id number] 2.16.840.1.707019.3.579.2.1 1952 Unknown [id number] 2.16.840.1.049040.3.579.2.1 1952 Unknown [id number] 2.16.840.1.555585.3.579.2.1 286 Unknown [facility] [id number] Unknown [id number] 2.16.840.1.339079.3.579.2.5 31 Social History Date Type Detail Facility Unknown if ever smoked [facility] Work Phone: Start: 12-01-2019 End: 12-15-2020 Sex Assigned At [facility] Other Start: 1950 Sex Assigned At Male F [facility] Start: 01-17-2023 End: 04-28-2024 Tobacco smoking status [facility] Ex-smoker [facility] End: 11-04-1996 History of tobacco use Current smoker [facility] End: 11-04-1996 History of tobacco use Cigarette Smoker [facility] Start: 01-17-2023 End: 04-28-2024 Tobacco use and exposure Smokeless tobacco non-user [facility] Start: 10-31-2023 End: 08-11-2024 Alcohol intake Current drinker of alcohol (finding) [facility] Start: 12-01-2019 End: 12-15-2020 History of Social function [facility] Frequency of Alcohol Consumption 4 or more times a week [facility] Start: 01-17-2023 Alcohol Comment socially [facility] Start: 1950 Sex Assigned At Not on file P [facility] Start: 11-07-2018 Tobacco smoking stat [facility] Never smoked tobacco (finding) [facility] Start: 06-09-2015 Sex Male (finding) [facility] Medical Equipment Procedure Code Equipment Code Equipment Origin al Text Equipment Identifier Dates Patch Dura 1x1in Drmtrx-[place] + Clgn Rgnrt Membr Strl Rpl [id number] - [id number] Start: 12-25-2023 Goals Date Patient Goal [...] 12/26/23 11:57 AM Clinical Notes 06-14-2022 to 08-11-2024 Sumanth Hill MD - 08/11/2024 9:00 AM EDTPatiLuanne Alvarenga APRN.LATOYA - 07/03/2024 4:08 PM Ling Moreno - 07/01/2024 2:32 PM Adeline Zeng RN - 12/27/2023 1:01 PM EST Note Date & Type Note Facility 08-11-2024 History of Present illness Narrative Images from the original note were not included. [address] [place] [id number] Subjective: Regan Green is a 74 y.o. male who presents for a Medicare Annual Wellness exam. The following portions of the patient's history were reviewed and updated as appropriate: Health Risk Assessment, allergies, past medical history, past surgical history, social history, family history, and immunization history Accompanied by: self History Provided By: self Language and Other Communication Barriers: Primary Language Spoken: Dominican Highest Level of Education Completed: high school diploma/GED Are You Happy With How Well You Read? yes Diet and Physical Activity: Current Prescribed Diet: Regular Diet How would you describe the condition of your mouth and teeth, including false teeth and dentures? Good Exercise Frequency: Daily Types of Exercise: Walking Health Risk Assessment: Cognitive Screening Do you have trouble remembering or recalling facts or events?: No Do family members or caregivers report that you have difficulty remembering things?: No Depression Screening Little interest or pleasure in doing things: Not at all Feeling down, depressed, or hopeless: Not at all Trouble falling or staying asleep, or sleeping too much: (!) Several days Feeling tired or having little energy: (!) Several days Poor appetite or overeating: Not at all Feeling bad about yourself - or that you are a failure or have let yourself or your family down: Not at all Trouble concentrating on things, such as reading the newspaper or watching television: Not at all Moving or speaking so slowly that other people could have noticed. Or the opposite - being so fidgety or restless that you have been moving around a lot more than usual: Not at all Thoughts that you would be better off , or of hurting yourself in some way: Not at all End of Life Planning Do you have a living will?: Yes Do you have a durable power of title attorney?: Yes Fall Risk Fall Risk Assessment Completed?: Yes Hearing Assessment Do you strain or struggle to hear/understand conversations?: No Do you have trouble hearing the television or radio when others do not?: No Does your family ever voice concerns about your hearing?: No Do you wear hearing aid/s?: No Lifestyle Assessment Do you smoke or use smokeless tobacco?: No If you smoke or use smokeless tobacco, are you ready to quit?: NA Are you exposed to secondhand smoke?: No On average, how many drinks of alcohol do you consume in a week?: (!) 6 - 9 Do you exercise for 30 or more minutes on average at least 3 days a week?: Always Do you have any tooth, denture, or oral problems?: No Do you snore or has anyone told you that you snore?: No Do you try to eat a balanced diet?: Yes Do you experience leakage of urine, also known as urinary incontinence?: (!) Sometimes Do you have difficulty performing any of these activities? (check all that apply): (!) Bathing Do you have difficulty performing any of these activities? (check all that apply): None Personal Health During the past 4 weeks, how would you rate your overall health?: Very Good Do you understand how to take all of your medications?: Yes How confident are you that you can control and manage most of your health problems?: Very confident In the past 12 months, how many times have you been hospitalized?: (!) 2 or more Safety Assessment Do you have throw rugs on the floor?: (!) Yes Do you feel safe at your home?: Yes Do you feel unsteady when walking?: No Are you having difficulty with driving?: No Do you have trouble seeing?: No What assistive device do you use? (check all that apply): None Vitals: Vitals: 08/11/24 0912 BP: 134/82 Temp: 36 C (96.8 F) Body mass index is 30.04 kg/m . History: Hospitalizations during the past 12 months: yes Patient Active Problem List Diagnosis Date Noted Visual impairment 12/20/2023 Radiculopathy, lumbar region 12/17/2023 Neurogenic claudication 12/17/2023 Localized edema 02/08/2020 Varicose veins of right lower extremity with pain 02/08/2020 Malignant neoplasm of prostate ([facility]) 02/07/2017 Adenocarcinoma of prostate ([facility]) 11/20/2016 Past Medical History: Diagnosis Date Cancer of [...] 03/25/2023 Performed by Matt Campbell DO at [facility] HERNIA REPAIR Left inguinal HIP SURGERY Left JOINT REPLACEMENT LAMINECTOMY LUMBAR MULTI LEVEL / L2-L5 N/A 12/25/2023 Performed by Mayco Nolen MD at [facility] PROSTATE BIOPSY PROSTATECTOMY REVISION TOTAL KNEE ARTHROPLASTY Right 2012 due to swelling TOTAL KNEE ARTHROPLASTY Right 2012 Family History Adopted: Yes Problem Relation Age of Onset Anesthesia problems Neg Hx Social History Tobacco Use Smoking status: Former Types: Cigarettes Smokeless tobacco: Never Substance Use Topics Alcohol use: Yes Alcohol/week: 3.0 standard drinks of alcohol Types: 3 Drinks containing 0.5 oz of alcohol per week Comment: socially Allergies: No Known Allergies Current Outpatient Medications Medication Sig Dispense Refill B-complex with vitamin C tablet Take 2 tablets by mouth in the morning. calcium carbonate-vitamin D3 (OSCAL 500 + D) 500 mg(1,250mg) -200 units per tablet Take 1 tablet by mouth in the morning and 1 tablet in the evening. Take with meals. cyclobenzaprine (FLEXERIL) 10 mg tablet Take 1 tablet (10 mg total) by mouth 3 (three) times a day as needed for muscle spasms. This is an 10 day supply 30 tablet 2 diclofenac (VOLTAREN) 75 mg EC tablet TAKE 1 TABLET BY MOUTH TWICE A DAY NEEDED ELDERBERRY FRUIT ORAL Take by mouth in the morning and at bedtime. gabapentin (NEURONTIN) 600 mg tablet Take 0.5 tablets (300 mg total) by mouth in the morning. glucosamine/chondr piña A sod (OSTEO BI-FLEX ORAL) Take 1 tablet by mouth in the morning. mv-min/folic/K1/lycopen/lutein (CENTRUM SILVER MEN ORAL) Take 1 tablet by mouth once daily. oxyCODONE-acetaminophen (PERCOCET) 5-325 mg per tablet Take 1 tablet by mouth in the evening. 1 to 2 tablets daily. No current facility-administered medications for this visit. Immunization History Administered Date(s) Administered COVID-19, mRNA, LNP-S, PF, 100mcg/0.5mL Dose 12/21/2020, 01/18/2021, 09/18/2021 Covid-19, Mrna, Lnp-s, Bivalent, Pf, 30mcg/0.3 ml 08/20/2022 Influenza (IM) Preservative Free 11/20/2017 Influenza High Dose Preservative Free IM 08/11/2019 Influenza Whole 08/22/2009, 09/11/2010, 09/03/2011, 08/18/2012 Influenza, High-dose, Quadrivalent 07/20/2020, 08/20/2022, 08/05/2023 Influenza, Injectable, quadrivalent (PF) 07/31/2018, 09/18/2021, 04/26/2022 Pneumococcal Conjugate 13-Valent 11/20/2017 Pneumococcal Polysaccharide 08/13/2012, 08/19/2013, 08/11/2019 RSV, bivalent, protein subunit RSVpreF, diluent reconstituted, 0.5 mL, PF 08/05/2023 Zoster Live 08/13/2012, 05/29/2013 Medication Adherence: Original 4-item [place] Scale Do you ever forget to take your medicine? no Are you careless at times about taking your medicine? no When you feel better, do you sometimes stop taking your medicine? no Sometimes if you feel worse when you take your medicine, do you stop taking it? no Score: 4 Scoring: high-low; yes=0 no=1. Range 0-4. By reversing the wording of four questions about the way patients might experience drug omissions, the sum of yes answers would provide a composite measure of non-adherence. Higher scores indicate higher adherence. Cognitive Screening: Clock Drawing Test: Normal Mini-Cog: Patient Concerns for Cognitive Function: no Family Concerns for Cognitive Function: no Sensory Screening: Hearing right ear: normal Hearing left ear: normal Can you hear what a person says without seeing his/her face, if spoken in a normal voice from across the room? Yes Can you hear what a person says without seeing his/her face, if that person whispers to you from across a room? Yes Do you use a hearing aid: No Review of Systems: Review of Systems Constitutional: Negative. Respiratory: Negative. Cardiovascular: Negative. Gastrointestinal: Negative. Genitourinary: Negative. Musculoskeletal: Positive for back pain. Neurological: Positive for numbness. Objective: Physical Exam Vitals and nursing note reviewed. Constitutional: Appearance: Normal appearance. HENT: Head: Normocephalic and atraumatic. Eyes: Extraocular Movements: Extraocular movements intact. Pupils: Pupils are equal, round, and reactive to light. Cardiovascular: Rate and Rhythm: Normal rate and regular rhythm. Pulses: Normal pulses. Heart sounds: Normal heart sounds. Pulmonary: Effort: Pulmonary effort is normal. Breath sounds: Normal breath sounds. Musculoskeletal: Comments: Postive SLR on right Skin: General: Skin is warm and dry. Neurological: General: No focal deficit present. Mental Status: He is alert and oriented to person, place, and time. Psychiatric: Mood and Affect: Mood normal. Behavior: Behavior normal. Hospital Outpatient Visit on 04/28/2024 Component Date Value Ref Range Status PSA 04/28/2024 <0.01 0.00 - 4.00 ng/mL Final Comment: The method used for this test is Deejay Solapa4 DXI chemiluminescent immunoassay. Values obtained by different assay methods cannot be used interchangeably. Advanced Directives: Living Will: Yes DPA for Health Care: Yes Discussion and Summary: Risk findings: none Personalized Prevention Plan Services: Specialty Evaluation Advised:N/A Preventative Programs Recommended: N/A Prevention Counseling and Education Materials:N/A Diseases: N/A Immunizations: N/A Nutrition: N/A Activity/Exercise/Safety/Misc: N/A The above recommendations were discussed with the patient. Medicare Available Services: Medicare Available Services Admin of Pneumococcal Vaccine: Completed Admin of influenza vaccine: Recommended Admin of Hep B vaccine: Not applicable AAA ultrasound screening: Completed Screening mammography: Not applicable Screening pap and pelvic exam: Not applicable Prostate cancer screening: Completed Colorectal cancer screening tests: Completed DM outpatient self management training services: Not applicable Bone mass measurements: Not applicable Screening for glaucoma: Completed Cardiovascular screening blood tests: Recommended DM screening blood tests: Recommended Smoking cessation counseling: Completed Counseling to prevent tobacco use: Completed Screening/counseling to reduce alcohol misuse: Completed Behavioral therapy for obesity: Not applicable STI infection screening and behavioral counseling: Not applicable Medical nutrition therapy services for DM: Not applicable Medical nutrition therapy services: Not applicable Copy to patient and copy in patient's medical record. Assessment/Plan: Regan Green has been seen for a well visit today. Preventative recommendations were reviewed. Any chronic conditions that have been addressed include those listed below. Kenneth was seen today for annual exam. Diagnoses and all orders for this visit: Routine general medical examination at a health care facility Lumbar radiculopathy, chronic Spondylolisthesis of lumbar region Pure hypercholesterolemia - CBC auto differential; Future - Comprehensive metabolic panel; Future - Lipid profile; Future - Thyroid profile includes TSH FT4; Future Adenocarcinoma of prostate ([facility]) Follow Up: Consider inversion table fasting labs documented in this encounter [facility] 08-11-2024 Instructions Sumanth Hill MD - 08/11/2024 9:00 AM EDT Medicare Available Services Admin of Pneumococcal Vaccine: Completed Admin of influenza vaccine: Recommended Admin of Hep B vaccine: Not applicable AAA ultrasound screening: Completed Screening mammography: Not applicable Screening pap and pelvic exam: Not applicable Prostate cancer screening: Completed Colorectal cancer screening tests: Completed DM outpatient self management training services: Not applicable Bone mass measurements: Not applicable Screening for glaucoma: Completed Cardiovascular screening blood tests: Recommended DM screening blood tests: Recommended Smoking cessation counseling: Completed Counseling to prevent tobacco use: Completed Screening/counseling to reduce alcohol misuse: Completed Behavioral therapy for obesity: Not applicable STI infection screening and behavioral counseling: Not applicable Medical nutrition therapy services for DM: Not applicable Medical nutrition therapy services: Not applicable documented in this encounter [facility] 07-03-2024 Note HNO ID: [id number] Author: LUANNE ELLIOTT APRN.CONTENT ARCHITECT Service: ? Author Type: Nurse Practitioner Type: Progress Notes Filed: 07/03/2024 16:12 Note Text: Per Triage: Regan Green is a 74 year old male that requests evaluation of lumbar spine. Per review, they have symptoms of right leg pain from right knee to ankle numbness and weakness Patient lives in [facility] [address] Gregorio Palm 's office referring the patient to be seen in Neuro Surgery for 2nd opinion for lumbar stenosis. Is this a 2nd opinion from another spine surgeon? Yes Were you offered surgery? Yes Fusion Prior surgery? 12/25/2023, Laminectomy L2-L5 CMT: Pt inj oral steroids, Gabapentin 600 mg (TID), muscle relaxants percocet Studies (Reports unless indicated) MRI lumbar report L1-L2: Mild circumferential disc bulge. Bilateral facet [...] left and moderate right neural foraminal stenosis. Disposition: Please schedule with first available lumbar surgeon, patient offered surgery, seeking 2nd opinion, severe findings on imaging correlate with right leg symptoms and exacerbated all CMT. Please tell patient to bring copy of imaging with him and injection history [facility] 07-03-2024 History of Present illness Narrative Per Triage: Regan Green is a 74 year old male that requests evaluation of lumbar spine. Per review, they have symptoms of right leg pain from right knee to ankle numbness and weakness Patient lives in [facility] [address] Gregorio Palm 's office referring the patient to be seen in Neuro Surgery for 2nd opinion for lumbar stenosis. Is this a 2nd opinion from another spine surgeon? Yes Were you offered surgery? Yes Fusion Prior surgery? 12/25/2023, Laminectomy L2-L5 CMT: Pt inj oral steroids, Gabapentin 600 mg (TID), muscle relaxants percocet Studies (Reports unless indicated) MRI lumbar report L1-L2: Mild circumferential disc bulge. Bilateral facet [...] left and moderate right neural foraminal stenosis. Disposition: Please schedule with first available lumbar surgeon, patient offered surgery, seeking 2nd opinion, severe findings on imaging correlate with right leg symptoms and exacerbated all CMT. Please tell patient to bring copy of imaging with him and injection history Patient name: Regan Green Are you being referred by a Center for Spine Health Provider or Pain Management Provider at [facility]? No If answer is YES please schedule directly with surgeon, triage does not need to be completed. Is this a self-referral No If not, who is the Referring Provider Dr. Gregorio Palm 's office referring the patient to be seen in Neuro Surgery for 2nd opinion for lumbar stenosis. Is this a 2nd opinion from another spine surgeon? Yes Were you offered surgery? Yes Fusion MRI/CT/myelogram within 12 months? Yes If NO , please refer to medical spine or PCP to complete above imaging, triage does not need to be completed If YES, please ask for the name/address of the facility where the MRI/CT/myelogram was completed: [facility] [address] [place] [address] MRI/CT/myelogram viewable in Epic: No If not, please provide [phone] to fax in imaging reports for review. Also, please inform patient to hand carry imaging disc to appointment. XR (spine) within 12 months: Yes If YES, please ask for the name/address of the facility where the XR was completed: [facility] [address] [place] [address] Dr. Robertson's patients: Have you had previous EMG/Nerve Conduction Study, Ultrasound, or MRI for these same symptoms? If YES, please ask for the name/address of the facility where they were completed: Requested provider (First and Last name): any Are you interested in a virtual visit if offered? No 1. Where are you having symptoms related to this visit? Back pain No Leg pain Yes R leg Arm pain No Neck pain No 2. Are you having any of the following symptoms: Difficulty walking No Numbness Yes R knee down to ankle Weakness Yes R leg Trouble using your hands? No 3. Have you had any injections or physical therapy in the last 12 months? Yes If YES then please ask for the name/address of the facility where the injections and/or physical therapy was completed PT: [facility] [address] [place] [address] Injections: [facility] [address] [place] [address] Have you tried any other kinds of non-surgical treatments in the last 12 months? (For example: NSAIDS, muscle relaxants, analgesics, oral steroids, Chiropractor, Acupuncture): oral steroids, Gabapentin 600 mg (TID), muscle relaxants 4. Are you currently taking daily prescribed narcotic medications for your current symptoms (For example Oxycodone, Hydrocodone, Tramadol, Morphine, Other)? Yes Percocet 5. Have you had previous spinal surgery for this same symptoms? Yes If YES please ask for the name of facility/address of where the surgery was completed: 12/25/2023, Laminectomy L2-L5 [facility] [address] [place] [id number] Additional Comments [phone] documented in this encounter [facility] 07-01-2024 Note HNO ID: [id number] Author: ?, ?, ? Service: ? Author Type: ? Type: Progress Notes Filed: 07/03/2024 16:12 Note Text: Patient name: Regan Green Are you being referred by a Center for Spine Health Provider or Pain Management Provider at [facility]? No If answer is YES please schedule directly with surgeon, triage does not need to be completed. Is this a self-referral No If not, who is the Referring Provider Dr. Gregorio Palm 's office referring the patient to be seen in Neuro Surgery for 2nd opinion for lumbar stenosis. Is this a 2nd opinion from another spine surgeon? Yes Were you offered surgery? Yes Fusion MRI/CT/myelogram within 12 months? Yes If NO , please refer to medical spine or PCP to complete above imaging, triage does not need to be completed If YES,? please ask for the name/address of the facility where the MRI/CT/myelogram was completed: [place] [address] MRI/CT/myelogram viewable in Epic: No If not, please provide [phone] to fax in imaging reports for review. Also, please inform patient to hand carry imaging disc to appointment. XR (spine) within 12 months: Yes If YES,? please ask for the name/address of the facility where the XR was completed: [place] [address] Dr. Robertson's patients: Have you had previous EMG/Nerve Conduction Study, Ultrasound, or MRI for these same symptoms? If YES,? please ask for the name/address of the facility where they were completed: Requested provider (First and Last name): any Are you interested in a virtual visit if offered? No 1. Where are you having symptoms related to this visit? Back pain No Leg pain Yes R leg Arm pain No Neck pain No 2. Are you having any of the following symptoms: Difficulty walking No Numbness Yes R knee down to ankle Weakness Yes R leg Trouble using your hands? No 3. Have you had any injections or physical therapy in the last 12 months? Yes If YES then please ask for the name/address of the facility where the injections and/or physical therapy was completed PT: [facility] [address] [place] [address] Injections: [facility] [address] [place] [address] Have you tried any other kinds of non-surgical treatments in the last 12 months? (For example: NSAIDS, muscle relaxants, analgesics, oral steroids, Chiropractor, Acupuncture): oral steroids, Gabapentin 600 mg (TID), muscle relaxants 4. Are you currently taking daily prescribed narcotic medications for your current symptoms (For example Oxycodone, Hydrocodone, Tramadol, Morphine, Other)? Yes Percocet 5. Have you had previous spinal surgery for this same symptoms? Yes If YES? please ask for the name of facility/address of where the surgery was completed: 12/25/2023, Laminectomy L2-L5 [facility] [address] [place] [address] Additional Comments [phone] [facility] 12-27-2023 Nurse Note Discharge instructions provided to patient. Patient verbalized understanding, and denies any further concerns at this time. IV removed at time of discharged. Patient gathered belongings from room. Patient in no apparent distress. Patient taken to entrance b in a wheelchair with . [facility] 12-27-2023 Nurse Note Discharge instructions provided to patient. Patient verbalized understanding, and denies any further concerns at this time. IV removed at time of discharged. Patient gathered belongings from room. Patient in no apparent distress. Patient taken to entrance b in a wheelchair with . documented in this encounter [facility] 12-27-2023 Plan of care note Problem: Pain Goal: Patient goal is pain score less than 4, able to rest, and participant in treatment plan as appropriate Description: INTERVENTIONS: 1. Encourage patient or legal underwriting service representative to report early pain and ask [...] per policy 9. Teach patient or legal underwriting service representative interventions for comforting 12/27/2023 1259 by [...] at the bedside 7. Instruct patient/ patient underwriting service representative about use of safety devices 8. Include patient/ patient underwriting service representative in decisions related to safety 12/27/2023 [...] hygiene technique 7. Identify and instruct patient/patient underwriting service representative in use of appropriate isolation precautions for identified infection/symptoms 8. Provide and discuss with patient/patient underwriting service representative on educational MDRO sheet 9. Encourage and monitor nutritional status daily and consult hypoid gear tester if indicated 10. Implement neutropenic guidelines as [...] care ongoing. Problem: Knowledge Deficit Goal: Patient/patient underwriting service representative demonstrates understanding of disease process, treatment [...] Score of =/> 25 or indicated by [facility] Assessment Goal: Patient should be free from fall Description: Interventions: 1. Ashley to environment 2. Hourly rounds addressing the [...] non-skid footwear 11. Teach patient and patient underwriting service representative to maintain environment for safety and [...] (cane, walker) within reach 19. Request patient underwriting service representative bring adaptive equipment/mobility aids from home or obtain and provide as needed 20. Consult pharmacy regarding effects of med's affecting mobility, cognition, and alternatives 21. Obtain physician order for PT if risk factors associated with mobility are present 22. Obtain physician order for OT as appropriate 23. Utilize diversional activities 24. Educate patient and patient underwriting service representative how to maintain a safe environment during visitation times (notify nurse prior to leaving bedside) 25. Consider appropriateness of medical or non-medical appointment clerk 26. Set up voiding schedule as appropriate [...] progress towards goal: Plan of care ongoing. [facility] 12-27-2023 Miscellaneous Notes Problem: Pain Goal: Patient goal is pain score less than 4, able to rest, and participant in treatment plan as appropriate Description: INTERVENTIONS: 1. Encourage patient or legal underwriting service representative to report early pain and ask [...] per policy 9. Teach patient or legal underwriting service representative interventions for comforting 12/27/2023 1259 by [...] at the bedside 7. Instruct patient/ patient underwriting service representative about use of safety devices 8. Include patient/ patient underwriting service representative in decisions related to safety 12/27/2023 [...] hygiene technique 7. Identify and instruct patient/patient underwriting service representative in use of appropriate isolation precautions for identified infection/symptoms 8. Provide and discuss with patient/patient underwriting service representative on educational MDRO sheet 9. Encourage and monitor nutritional status daily and consult hypoid gear tester if indicated 10. Implement neutropenic guidelines as [...] care ongoing. Problem: Knowledge Deficit Goal: Patient/patient underwriting service representative demonstrates understanding of disease process, treatment [...] Score of =/> 25 or indicated by [facility] Assessment Goal: Patient should be free from fall Description: Interventions: 1. Ashley to environment 2. Hourly rounds addressing the [...] non-skid footwear 11. Teach patient and patient underwriting service representative to maintain environment for safety and [...] (cane, walker) within reach 19. Request patient underwriting service representative bring adaptive equipment/mobility aids from home or obtain and provide as needed 20. Consult pharmacy regarding effects of med's affecting mobility, cognition, and alternatives 21. Obtain physician order for PT if risk factors associated with mobility are present 22. Obtain physician order for OT as appropriate 23. Utilize diversional activities 24. Educate patient and patient underwriting service representative how to maintain a safe environment during visitation times (notify nurse prior to leaving bedside) 25. Consider appropriateness of medical or non-medical appointment clerk 26. Set up voiding schedule as appropriate [...] Description: INTERVENTIONS: 1. Encourage patient or legal underwriting service representative to report early pain and ask [...] per policy 9. Teach patient or legal underwriting service representative interventions for comforting Outcome: Progressing Note: [...] at the bedside 7. Instruct patient/ patient underwriting service representative about use of safety devices 8. Include patient/ patient underwriting service representative in decisions related to safety Outcome: [...] hygiene technique 7. Identify and instruct patient/patient underwriting service representative in use of appropriate isolation precautions for identified infection/symptoms 8. Provide and discuss with patient/patient underwriting service representative on educational MDRO sheet 9. Encourage and monitor nutritional status daily and consult hypoid gear tester if indicated 10. Implement neutropenic guidelines as needed 11. Review exposure to history of communicable disease and recent travel history on admission 12. Encourage annual influenza vaccine 13. Encourage pneumonia vaccine Outcome: Progressing Note: Evaluation of progress towards goal: Patient denies fever. No purulent drainage noted at site. Plan of care ongoing. Problem: Knowledge Deficit Goal: Patient/patient underwriting service representative demonstrates understanding of disease process, treatment [...] be free from fall Description: Interventions: 1. Ashley to environment 2. Hourly rounds addressing the [...] non-skid footwear 11. Teach patient and patient underwriting service representative to maintain environment for safety and [...] (cane, walker) within reach 19. Request patient underwriting service representative bring adaptive equipment/mobility aids from home or obtain and provide as needed 20. Consult pharmacy regarding effects of med's affecting mobility, cognition, and alternatives 21. Obtain physician order for PT if risk factors associated with mobility are present 22. Obtain physician order for OT as appropriate 23. Utilize diversional activities 24. Educate patient and patient underwriting service representative how to maintain a safe environment during visitation times (notify nurse prior to leaving bedside) 25. Consider appropriateness of medical or non-medical appointment clerk 26. Set up voiding schedule as appropriate [...] Description: INTERVENTIONS: 1. Encourage patient or legal underwriting service representative to report early pain and ask [...] per policy 9. Teach patient or legal underwriting service representative interventions for comforting Outcome: Progressing Note: [...] at the bedside 7. Instruct patient/ patient underwriting service representative about use of safety devices 8. Include patient/ patient underwriting service representative in decisions related to safety Outcome: [...] hygiene technique 7. Identify and instruct patient/patient underwriting service representative in use of appropriate isolation precautions for identified infection/symptoms 8. Provide and discuss with patient/patient underwriting service representative on educational MDRO sheet 9. Encourage and monitor nutritional status daily and consult hypoid gear tester if indicated 10. Implement neutropenic guidelines as needed 11. Review exposure to history of communicable disease and recent travel history on admission 12. Encourage annual influenza vaccine 13. Encourage pneumonia vaccine Outcome: Progressing Note: Evaluation of progress towards goal: patient free from s/s of infection Problem: Knowledge Deficit Goal: Patient/patient underwriting service representative demonstrates understanding of disease process, treatment [...] Score of =/> 25 or indicated by [facility] Assessment Goal: Patient should be free from fall Description: Interventions: 1. Ashley to environment 2. Hourly rounds addressing the [...] non-skid footwear 11. Teach patient and patient underwriting service representative to maintain environment for safety and [...] (cane, walker) within reach 19. Request patient underwriting service representative bring adaptive equipment/mobility aids from home or obtain and provide as needed 20. Consult pharmacy regarding effects of med's affecting mobility, cognition, and alternatives 21. Obtain physician order for PT if risk factors associated with mobility are present 22. Obtain physician order for OT as appropriate 23. Utilize diversional activities 24. Educate patient and patient underwriting service representative how to maintain a safe environment during visitation times (notify nurse prior to leaving bedside) 25. Consider appropriateness of medical or non-medical appointment clerk 26. Set up voiding schedule as appropriate [...] Description: INTERVENTIONS: 1. Encourage patient or legal underwriting service representative to report early pain and ask [...] per policy 9. Teach patient or legal underwriting service representative interventions for comforting Outcome: Progressing Note: [...] at the bedside 7. Instruct patient/ patient underwriting service representative about use of safety devices 8. Include patient/ patient underwriting service representative in decisions related to safety Outcome: [...] hygiene technique 7. Identify and instruct patient/patient underwriting service representative in use of appropriate isolation precautions for identified infection/symptoms 8. Provide and discuss with patient/patient underwriting service representative on educational MDRO sheet 9. Encourage and monitor nutritional status daily and consult hypoid gear tester if indicated 10. Implement neutropenic guidelines as needed 11. Review exposure to history of communicable disease and recent travel history on admission 12. Encourage annual influenza vaccine 13. Encourage pneumonia vaccine Outcome: Progressing Note: Evaluation of progress towards goal: Patient is being monitored for s/sx of infection. Problem: Knowledge Deficit Goal: Patient/patient underwriting service representative demonstrates understanding of disease process, treatment [...] be free from fall Description: Interventions: 1. Ashley to environment 2. Hourly rounds addressing the [...] non-skid footwear 11. Teach patient and patient underwriting service representative to maintain environment for safety and [...] (cane, walker) within reach 19. Request patient underwriting service representative bring adaptive equipment/mobility aids from home or obtain and provide as needed 20. Consult pharmacy regarding effects of med's affecting mobility, cognition, and alternatives 21. Obtain physician order for PT if risk factors associated with mobility are present 22. Obtain physician order for OT as appropriate 23. Utilize diversional activities 24. Educate patient and patient underwriting service representative how to maintain a safe environment during visitation times (notify nurse prior to leaving bedside) 25. Consider appropriateness of medical or non-medical appointment clerk 26. Set up voiding schedule as appropriate [...] 6 Clicks: Basic Mobility Raw Score: 18 [facility] G Code Modifier: CK Therapy Plan Need [...] 03/25/2023 Performed by Matt Campbell DO at [facility] HERNIA REPAIR Left inguinal HIP SURGERY Left LAMINECTOMY LUMBAR MULTI LEVEL / L2-L5 N/A 12/25/2023 Performed by Mayco Nolen MD at [facility] PROSTATE BIOPSY PROSTATECTOMY REVISION TOTAL KNEE [...] pass Equipment: RW, gait belt, wound drain Telemetry/Senior Principal Architect: Yes Oxygen Used: room air Other: fall [...] Patient will perform bed mobility with Modified [place] Dates: Start: 12/26/23 Expected End: 01/24/24 Description: Goal Description: with proper BUE placement and sequencing Disciplines: PT Problem: Gait Dates: Start: 12/26/23 Disciplines: PT Goal: Patient will perform gait with Modified [place] Dates: Start: 12/26/23 Expected End: 01/24/24 Description: With__RW__,__150__feet Goal Description: with proper gait pattern and safety awareness Disciplines: PT Problem: Stairs/Curb Dates: Start: 12/26/23 Disciplines: PT Goal: Patient will perform stairs/curb with Modified [place] Dates: Start: 12/26/23 Expected End: 01/24/24 Description: [...] Goal: Patient will perform transfers with Modified [place] Dates: Start: 12/26/23 Expected End: 01/24/24 Description: [...] Description: INTERVENTIONS: 1. Encourage patient or legal underwriting service representative to report early pain and ask [...] per policy 9. Teach patient or legal underwriting service representative interventions for comforting Outcome: Progressing Note: [...] hygiene technique 7. Identify and instruct patient/patient underwriting service representative in use of appropriate isolation precautions for identified infection/symptoms 8. Provide and discuss with patient/patient underwriting service representative on educational MDRO sheet 9. Encourage and monitor nutritional status daily and consult hypoid gear tester if indicated 10. Implement neutropenic guidelines as [...] Kerrison punches. I then checked with a [employer] elevator and confirmed that there was no [...] Nolen MD - Primary Assistants: None Staff: Community Support Associate Primary: Lily Glasgow RN Community Support Associate Relief: Dina Roy RN Scrub Person: Janak [...] Implant Name Type Inv. Item Serial No. Clinical Academic Allergist Lot No. LRB No. Used Action PATCH DURA 1X1IN DRMTRX-ONLAY + CLGN RGNRT MEMBR STRL RPL [id number] - [id number] Graft PATCH DURA 1X1IN DRMTRX-ONLAY + CLGN RGNRT MEMBR STRL RPL [id number] PAULINA CRANIOMAXILLOFACIAL [id number] N/A 1 Implanted Estimated Blood Loss: 100 [...] no further orders documented in this encounter [facility] 12-27-2023 Hospital course Narrative Images from the original note were not included. [facility] [address] [place] [address], [address] [place] [address] * NEUROSURGERY DISCHARGE SUMMARY Patient: Regan Green Date of : 1950 Acct: [id number] Primary Care Physician: Sumanth Hill MD Admit [...] mg EC tablet Commonly known as: VOLTAREN [employer] HEALTH ORAL OSTEO BI-FLEX ORAL oxyCODONE-acetaminophen 5-325 mg per tablet Commonly known as: PERCOCET tiZANidine 4 mg tablet Commonly known as: ZANAFLEX Where to Get Your Medications These medications were sent to [facility] [id number] [facility] [address] [place] [address] AT [facility] [address] [facility] [address] methocarbamoL 500 mg tablet naloxone 4 mg/actuation [...] have been reviewed. Disposition: home Condition: stable Christina Varma, ROBB-LATOYA The patient has been started on an [...] and clinically appropriate. JOSEMANUEL Lainez Neurosurgery [facility] Patient Touch 12/27/23 12:28 PM JOSEMANUEL Sandoval 12/27/23 1234 documented in this encounter [facility] 12-27-2023 Hospital Discharge instructions JOSEMANUEL Sandoval - [...] remove at that time. Other Instructions: Call [facility] Neurosurgery with any questions, . The following attachments cannot be sent through Care Everywhere.Radiculopathy Discharge Instructions (Dominican)documented in this encounter [facility] 12-27-2023 Plan of care note Problem: Pain Goal: Patient goal is pain score less than 4, able to rest, and participant in treatment plan as appropriate Description: INTERVENTIONS: 1. Encourage patient or legal underwriting service representative to report early pain and ask [...] per policy 9. Teach patient or legal underwriting service representative interventions for comforting Outcome: Progressing Note: [...] at the bedside 7. Instruct patient/ patient underwriting service representative about use of safety devices 8. Include patient/ patient underwriting service representative in decisions related to safety Outcome: [...] hygiene technique 7. Identify and instruct patient/patient underwriting service representative in use of appropriate isolation precautions for identified infection/symptoms 8. Provide and discuss with patient/patient underwriting service representative on educational MDRO sheet 9. Encourage and monitor nutritional status daily and consult hypoid gear tester if indicated 10. Implement neutropenic guidelines as needed 11. Review exposure to history of communicable disease and recent travel history on admission 12. Encourage annual influenza vaccine 13. Encourage pneumonia vaccine Outcome: Progressing Note: Evaluation of progress towards goal: Patient denies fever. No purulent drainage noted at site. Plan of care ongoing. Problem: Knowledge Deficit Goal: Patient/patient underwriting service representative demonstrates understanding of disease process, treatment [...] be free from fall Description: Interventions: 1. Ashley to environment 2. Hourly rounds addressing the [...] non-skid footwear 11. Teach patient and patient underwriting service representative to maintain environment for safety and [...] (cane, walker) within reach 19. Request patient underwriting service representative bring adaptive equipment/mobility aids from home or obtain and provide as needed 20. Consult pharmacy regarding effects of med's affecting mobility, cognition, and alternatives 21. Obtain physician order for PT if risk factors associated with mobility are present 22. Obtain physician order for OT as appropriate 23. Utilize diversional activities 24. Educate patient and patient underwriting service representative how to maintain a safe environment during visitation times (notify nurse prior to leaving bedside) 25. Consider appropriateness of medical or non-medical appointment clerk 26. Set up voiding schedule as appropriate [...] progress towards goal: Plan of care ongoing. [facility] 12-27-2023 Progress note Formatting of t his note is different from the original. Physical Therapy CANCEL - Deferred Per RN pt is dizzy and diaphoretic laying supine in bed. Will hold PT treatment and attempt to complete session as able. [facility] 12-27-2023 History of Present illness Narrative Images from the original note were not included. [facility] [address] [place] [address], [address] [place] [address] * NEUROSURGERY DAILY PROGRESS NOTE DATE:12/27/2023 PATIENT'S [...] Home later today JOSEMANUEL Lainez Neurosurgery [facility] Patient Touch 12/27/23 6:04 AM To find out which ESTEFANY is on for the day please go to [employer] and use log in Street Library Network and search for PTH Neurosurgery JOSEMANUEL Sandoval 12/26/23 1010 JOSEMANUEL Sandoval 12/27/23 1228 Images from the original note were not included. [facility] [address] [place] [address], [address] [place] [address] * NEUROSURGERY DAILY PROGRESS NOTE DATE:12/26/2023 PATIENT'S [...] vs in AM JOSEMANUEL Lainez Neurosurgery [facility] Patient Touch 12/26/23 9:51 AM To find out which ESTEFANY is on for the day please go to [employer] and use log in Street Library Network and search for [facility] Neurosurgery JOSEMANUEL Sandoval 12/26/23 1010 [facility] 12-27-2023 Plan of care note Problem: Pain Goal: Patient goal is pain score less than 4, able to rest, and participant in treatment plan as appropriate Description: INTERVENTIONS: 1. Encourage patient or legal underwriting service representative to report early pain and ask [...] per policy 9. Teach patient or legal underwriting service representative interventions for comforting Outcome: Progressing Note: [...] at the bedside 7. Instruct patient/ patient underwriting service representative about use of safety devices 8. Include patient/ patient underwriting service representative in decisions related to safety Outcome: [...] hygiene technique 7. Identify and instruct patient/patient underwriting service representative in use of appropriate isolation precautions for identified infection/symptoms 8. Provide and discuss with patient/patient underwriting service representative on educational MDRO sheet 9. Encourage and monitor nutritional status daily and consult hypoid gear tester if indicated 10. Implement neutropenic guidelines as needed 11. Review exposure to history of communicable disease and recent travel history on admission 12. Encourage annual influenza vaccine 13. Encourage pneumonia vaccine Outcome: Progressing Note: Evaluation of progress towards goal: patient free from s/s of infection Problem: Knowledge Deficit Goal: Patient/patient underwriting service representative demonstrates understanding of disease process, treatment [...] Score of =/> 25 or indicated by [facility] Assessment Goal: Patient should be free from fall Description: Interventions: 1. Ashley to environment 2. Hourly rounds addressing the [...] non-skid footwear 11. Teach patient and patient underwriting service representative to maintain environment for safety and [...] (cane, walker) within reach 19. Request patient underwriting service representative bring adaptive equipment/mobility aids from home or obtain and provide as needed 20. Consult pharmacy regarding effects of med's affecting mobility, cognition, and alternatives 21. Obtain physician order for PT if risk factors associated with mobility are present 22. Obtain physician order for OT as appropriate 23. Utilize diversional activities 24. Educate patient and patient underwriting service representative how to maintain a safe environment during visitation times (notify nurse prior to leaving bedside) 25. Consider appropriateness of medical or non-medical appointment clerk 26. Set up voiding schedule as appropriate [...] goal: patient maintaining body alignment per self [facility] 12-26-2023 Plan of care note Problem: Pain Goal: Patient goal is pain score less than 4, able to rest, and participant in treatment plan as appropriate Description: INTERVENTIONS: 1. Encourage patient or legal underwriting service representative to report early pain and ask [...] per policy 9. Teach patient or legal underwriting service representative interventions for comforting Outcome: Progressing Note: [...] at the bedside 7. Instruct patient/ patient underwriting service representative about use of safety devices 8. Include patient/ patient underwriting service representative in decisions related to safety Outcome: [...] hygiene technique 7. Identify and instruct patient/patient underwriting service representative in use of appropriate isolation precautions for identified infection/symptoms 8. Provide and discuss with patient/patient underwriting service representative on educational MDRO sheet 9. Encourage and monitor nutritional status daily and consult hypoid gear tester if indicated 10. Implement neutropenic guidelines as needed 11. Review exposure to history of communicable disease and recent travel history on admission 12. Encourage annual influenza vaccine 13. Encourage pneumonia vaccine Outcome: Progressing Note: Evaluation of progress towards goal: Patient is being monitored for s/sx of infection. Problem: Knowledge Deficit Goal: Patient/patient underwriting service representative demonstrates understanding of disease process, treatment [...] Score of =/> 25 or indicated by [facility] Assessment Goal: Patient should be free from fall Description: Interventions: 1. Ashley to environment 2. Hourly rounds addressing the [...] non-skid footwear 11. Teach patient and patient underwriting service representative to maintain environment for safety and [...] (cane, walker) within reach 19. Request patient underwriting service representative bring adaptive equipment/mobility aids from home or obtain and provide as needed 20. Consult pharmacy regarding effects of med's affecting mobility, cognition, and alternatives 21. Obtain physician order for PT if risk factors associated with mobility are present 22. Obtain physician order for OT as appropriate 23. Utilize diversional activities 24. Educate patient and patient underwriting service representative how to maintain a safe environment during visitation times (notify nurse prior to leaving bedside) 25. Consider appropriateness of medical or non-medical appointment clerk 26. Set up voiding schedule as appropriate [...] towards goal: Patient maintains proper anatomical alignment. [facility] [employer] [facility] 12-26-2023 Progress note Formatting of t [...] 03/25/2023 Performed by Matt Campbell DO at [facility] HERNIA REPAIR Left inguinal HIP SURGERY Left LAMINECTOMY LUMBAR MULTI LEVEL / L2-L5 N/A 12/25/2023 Performed by Mayco Nolen MD at [facility] PROSTATE BIOPSY PROSTATECTOMY REVISION TOTAL KNEE [...] pass Equipment: RW, gait belt, wound drain Telemetry/Senior Principal Architect: Yes Oxygen Used: room air Other: fall [...] Gait Base of Support: Narrow Pattern: Decreased jozfe, R Decreased heel strike, L Decreased heel [...] Patient will perform bed mobility with Modified [place] Dates: Start: 12/26/23 Expected End: 01/24/24 Description: Goal Description: with proper BUE placement and sequencing Disciplines: PT Problem: Gait Dates: Start: 12/26/23 Disciplines: PT Goal: Patient will perform gait with Modified [place] Dates: Start: 12/26/23 Expected End: 01/24/24 Description: With__RW__,__150__feet Goal Description: with proper gait pattern and safety awareness Disciplines: PT Problem: Stairs/Curb Dates: Start: 12/26/23 Disciplines: PT Goal: Patient will perform stairs/curb with Modified [place] Dates: Start: 12/26/23 Expected End: 01/24/24 Description: [...] Goal: Patient will perform transfers with Modified [place] Dates: Start: 12/26/23 Expected End: 01/24/24 Description: Goal Description: with proper BUE placement and sequencing Disciplines: PT Physical Therapy Care Plan (Resolved) There are no resolved problems. Principal Problem: Radiculopathy, lumbar region Active Problems: Neurogenic claudication [facility] [employer] [facility] 12-26-2023 Progress note Formatting of t [...] smoking, drinking alcohol or doing illciit drugs. [facility] 12-26-2023 Plan of care note Problem: Pain Goal: Patient goal is pain score less than 4, able to rest, and participant in treatment plan as appropriate Description: INTERVENTIONS: 1. Encourage patient or legal underwriting service representative to report early pain and ask [...] per policy 9. Teach patient or legal underwriting service representative interventions for comforting Outcome: Progressing Note: [...] hygiene technique 7. Identify and instruct patient/patient underwriting service representative in use of appropriate isolation precautions for identified infection/symptoms 8. Provide and discuss with patient/patient underwriting service representative on educational MDRO sheet 9. Encourage and monitor nutritional status daily and consult hypoid gear tester if indicated 10. Implement neutropenic guidelines as [...] of progress towards goal: progressing with walker [facility] 12-25-2023 Procedure note NEUROSURGERY OPERATIVE [...] Kerrison punches. I then checked with a [employer] elevator and confirmed that there was no [...] room with stable vital signs. Complications: None. [facility] 12-25-2023 Procedure note Brief Post-op Note NAME: Regan Green : 1950 PROCEDURE DATE: 12/25/2023 Surgeon: Surgeon(s) and Role: * Mayco Nolen MD - Primary Assistants: None Staff: Community Support Associate Primary: Lily Glasgow RN Community Support Associate Relief: Dina Roy RN Scrub Person: Janak [...] Implant Name Type Inv. Item Serial No. Clinical Academic Allergist Lot No. LRB No. Used Action PATCH DURA 1X1IN DRMTRX-ONLAY + CLGN RGNRT MEMBR STRL RPL [id number] - [id number] Graft PATCH DURA 1X1IN DRMTRX-ONLAY + CLGN RGNRT MEMBR STRL RPL [id number] PAULINA CRANIOMAXILLOFACIAL [id number] N/A 1 Implanted Estimated Blood Loss: 100 ml OB Surgical Procedure Blood Loss: Anesthesia EBL: * No values recorded between 12/25/2023 3:09 PM and 12/25/2023 4:54 PM * OB QBL: * No values recorded between 12/25/2023 3:09 PM and 12/25/2023 4:54 PM * Condition: stable Findings: severe lateral recess stenosis [facility] 12-25-2023 Attending History and physical note HISTORY AND PHYSICAL INTERVAL NOTE: Regan Green 1950 [id number] H&P reviewed. The patient was examined and there are no changes to the H&P. Mayco Nolen MD Source Note - JOSEMANUEL Daniels - 12/20/2023 6:12 PM EST Letter to pain management seeking clarification on post operative pain medications. JOSEMANUEL [facility] Neurosurgery Contact via patient touch 12/20/23 6:21 PM To find out which ESTEFANY is on for the day please go to [employer] and use log in Street Library Network and search for [facility] Neurosurgery (ESTEFANY and Phone Number is listed) JOSEMANUEL Daniels 12/20/23 1821 JOSEMANUEL Daniels 12/25/23 1330 [facility] 12-25-2023 History and physical note HISTORY AND PHYSICAL INTERVAL NOTE: Reagn Green 1950 [id number] H&P reviewed. The patient was examined and there are no changes to the H&P. Mayco Nolen MD Source Note - JOSEMANUEL Daniels - 12/20/2023 6:12 PM EST Letter to pain management seeking clarification on post operative pain medications. JOSEMANUEL [facility] Neurosurgery Contact via patient touch 12/20/23 6:21 PM To find out which ESTEFANY is on for the day please go to [employer] and use log in Street Library Network and search for [facility] Neurosurgery (ESTEFANY and Phone Number is listed) JOSEMANUEL Daniels 12/20/23 182 JOSEMANUEL Daniels 12/25/23 1330 documented in this encounter [facility] 12-24-2023 Miscellaneous Notes I spoke to Kenneth to explain how Medicare authorizes surgeries. Reminded Kenneth of surgery tomorrow 12/25/23 at 2:45pm with TTH arrival time of 12:45 pm documented in this encounter [facility] 12-24-2023 Telephone encounter Note I spoke to Kenneth to explain how Medicare authorizes surgeries. Reminded Kenneth of surgery tomorrow 12/25/23 at 2:45pm with TTH arrival time of 12:45 pm [facility] 12-24-2023 Nurse Note Anesthesia review: Parveen Patel: 12/25: TTH: GA. only hx prostate CA. No c/o CP or SOB. EKGs: LAst PCP note Reviewed and accepted by Dr Vásquez with no further orders [facility] 12-20-2023 Miscellaneous Notes Patient called to advise office that he does not need surgery clearance from PCP. documented in this encounter [facility] 12-20-2023 Telephone encounter Note Patient called to advise office that he does not need surgery clearance from PCP. [facility] 12-20-2023 History and physical note PRE-ADMISSION TESTING HISTORY AND PHYSICAL EXAM DATE: 12/20/23 PCP: Sumanth Hill MD CHIEF COMPLAINT: back pain HISTORY OF PRESENT ILLNESS: Regan Green, a 73 y.o. White or male, presents to [facility] for a pre-surgical H&P. The [...] 03/25/2023 Performed by Matt Campbell DO at [facility] HERNIA REPAIR Left inguinal HIP SURGERY Left [...] the most recent lab values available in [facility] at the time of the office visit. [facility] labs are pending per surgeon. ASSESSMENT / DIAGNOSIS: Linked DX: Radiculopathy, lumbar region [M54.16] PLAN: Regan Green is scheduled for Linked Case Date: 12/25/2023 Linked Surgeon: Forrest Nolen MD Linked Surgery: Laminectomy Lumbar Multi Level / L2-L5. JOSEMANUEL Santoyo 12/20/23 1511 [facility] 12-20-2023 History and physical note PRE-ADMISSION TESTING HISTORY AND PHYSICAL EXAM DATE: 12/20/23 PCP: Sumanth Hill MD CHIEF COMPLAINT: back pain HISTORY OF PRESENT ILLNESS: Regan Green, a 73 y.o. White or male, presents to [facility] for a pre-surgical H&P. The [...] 03/25/2023 Performed by Matt Campbell DO at [facility] HERNIA REPAIR Left inguinal HIP SURGERY [...] the most recent lab values available in [facility] at the time of the office visit. PAT labs are pending per surgeon. ASSESSMENT / DIAGNOSIS: Linked DX: Radiculopathy, lumbar region [M54.16] PLAN: Regan Green is scheduled for Linked Case Date: 12/25/2023 Linked Surgeon: Forrest Nolen MD Linked Surgery: Laminectomy Lumbar Multi Level / L2-L5. JOSEMANUEL Santoyo 12/20/23 1511 documented in this encounter [facility] 12-20-2023 Instructions Antonia Rosario RN - 12/20/2023 1:45 PM EST Your surgery/procedure is scheduled at [facility] on 12/25 at 2:45 Arrival Time 12:45 [facility] Address: [address] [place] [address] Park in P1 Parking lot located on [facility]. Report to the Entrance B. Check in at the information desk the surgery. The waiting room located on the second floor. If you have any questions prior to surgery, please call Pre-Admission Clinic at [phone] between 7:30 am and 4:30 pm Saturday through Saturday. If you have questions the morning of surgery, please call the Pre-op Department at [phone]. Notify your SURGEON if you develop any [...] would like to schedule therapy at a [facility] facility, please call [phone] ([phone]). Do not use lotions, creams, powders, perfume, make up, cologne or after-shaves day of surgery. Remove ALL jewelry including wedding rings, body piercings,hair extensions that contain metal, nail tajik, make-up, and contact lens. You may brush [...] RIGHTS AND RESPONSIBILITIES As a patient at [facility], you have the right to: Receive medical care and be informed of who is taking care of you Be treated with dignity and respect Have a family member/underwriting service representative of choice and your physician notified of your admission Receive information and actively participate in decisions about your care and treatment Refuse care, treatment and services Decide who may provide your support and speak for you Access scientology and spiritual services Participate in ethical issues [...] of hospital charges and payment methods Patient/patient underwriting service representative responsibilities are to: Provide information about [...] in clean clothes. documented in this encounter [facility] 12-18-2023 History of Present illness Narrative Pre [...] 10/04/23 no acute pulmonary pathology JOSEMANUEL Jackson [facility] Neurosurgery Contact via patient touch 12/21/23 6:10 AM To find out which ESTEFANY is on for the day please go to [employer] and use log in [facility] [employer] and search for PTH Neurosurgery (ESTEFANY and Phone Number is listed) JOSEMANUEL Daniels 12/25/23 2854 documented in this encounter [facility] 12-10-2023 Miscellaneous Notes Regan calls into [...] would have to speak with Dr. Nolen creative services coordinator about surgery. Patient transferred to Dr. Nolen creative services coordinator. documented in this encounter [facility] 12-10-2023 Telephone encounter Note Regan calls into [...] would have to speak with Dr. Nolen creative services coordinator about surgery. Patient transferred to Dr. Nolen creative services coordinator. [facility] 11-27-2023 Miscellaneous Notes Kenneth left a message to ask how many physical therapy visits he should try to complete before scheduling surgery. Left message for Kenneth to let him know at least six visits usually show good effort but if these are unsuccessful he needs to make sure the physical therapist is documenting increase of pain or ineffectiveness. documented in this encounter [facility] 11-27-2023 Telephone encounter Note Kenneth left a message to ask how many physical therapy visits he should try to complete before scheduling surgery. [facility] 11-27-2023 Telephone encounter Note Left message for Kenneth to let him know at least six visits usually show good effort but if these are unsuccessful he needs to make sure the physical therapist is documenting increase of pain or ineffectiveness. [facility] 11-14-2023 History of Present illness Narrative Images from the original note were not included. [facility] [address] [place] [address], [address] [place] [address] * CHART NOTE ? 11/14/2023 Patient: Regan Green 1950 [id number] Nurse Practitioner: Carl Sosa CNP Physician: Mayco [...] He was seen by [facility] in [place], but was advised they could no longer help. He has not had any interventional pain procedures, but was seen at [facility] in [place], [place], but was advised he should be seen here first. Patient's imaging was discussed and reviewed to their understanding in office today. Patient has not yet exhausted all conservative measures of treatment and is agreeable to them namely CHANTELLE. Denies loss of department clerk strength, saddle anesthesia, urinary or bowel dysfunction, [...] 03/25/2023 Performed by Matt Campbell DO at [facility] HERNIA REPAIR Left inguinal HIP SURGERY Left [...] Right achilles 2+ Left achilles 2+ Right department clerk 2+ Left department clerk 2+ Right Mack reflex absent and left [...] visible abscess or suspicious gas within the ujqqd-iz-wcad Close clinical follow-up and short-term progress repeat [...] was seen at [facility] in [place], [place], but was advised he should be [...] record of the patient encounter. Inadvertent computerized well service floor worker errors related to syntax, spelling, homophones, and/or inaudibility may be present. Scribe Statement: Scribed for and in the presence of JOSEMANUEL Kirk by Joshua Higginbotham. JOSEMANUEL Kirk 11/14/23 1630 [facility] Instructions AINSLEY Szymanski - 11/14/2023 9:30 AM EST Patient was seen by Dr. Nolen and JOSEMANUEL Chappell Patient was given an order for an x ray Lumbar spine Flex/Ext Medrol pack Physical therapy Referral for Lumbar to PT services Pain management referral for Lumbar L3-4 Patient will follow up after Pain management JA documented [facility] encounter [facility] 11-05-2023 Miscellaneous Notes ED Outreach This documentation is being used for Transition of Care purposes: Yes/No: Yes ED Outreach Date: November 05, 2023 ED Outreach Method: COMMUNICATION METHOD: Telephone ED Outreach Attempt: first ED Outreach Outcome: Contacted Patient Name of ED Facility: [facility] Date of ED Discharge: 10/31/2023 [...] with additional concerns. documented in this encounter [facility] 11-05-2023 Telephone encounter Note ED Outreach This documentation is being used for Transition of Care purposes: Yes/No: Yes ED Outreach Date: November 05, 2023 ED Outreach Method: COMMUNICATION METHOD: Telephone ED Outreach Attempt: first ED Outreach Outcome: Contacted Patient Name of ED Facility: [facility] Date of ED Discharge: 10/31/2023 [...] will contact the office with additional concerns. [facility] 10-30-2023 Evaluation note Encounter Date Diagnosis Assessment [...] pain of right shoulder (ICD-10 - M25.511) [facility] Other 12-19-2023 NoteCT LUMBAR SPINE WO CONT [...] abscess or suspicious gas visible within the ihkbt-el-bwkk. Repeat contrast abdominal pelvic CT may prove useful in combination with colonic screening with appropriate Probable parapelvic cysts in the left kidney Prominent vascular calcifications There is some metal artifact related to a prior surgery at the left acetabular region. There are also clips in the low pelvis as seen on the docent coordinator image Sagittal images include from the lower [...] visible abscess or suspicious gas within the raasq-ig-msfc Close clinical follow-up and short-term progress repeat abdominal pelvic contrast CT and colonic screening considered There is also be severe degenerative change of the lumbar spine and relatively severe canal and neural foraminal stenosis probably greatest at L3-4 and L4-5 levels There is no compression deformity or destructive bone process Finalized by Renaldo Tinajero MD on 10/22/2023 1:09 [facility] 08-20-2023 Evaluation note* Encounter Date Diagnosis Assessment [...] pain of right shoulder (ICD-10 - M25.511) [facility] Other 09-19-2023 Evaluation note* Encounter Date Diagnosis [...] pain of right shoulder (ICD-10 - M25.511) [facility] Other 08-21-2023 Evaluation note* Encounter Date Diagnosis [...] pain of right shoulder (ICD-10 - M25.511) [facility] Other 07-18-2023 Evaluation note* Encounter Date Diagnosis [...] given order for occupational therapy and braces [facility] Other 05-16-2023 NoteCONSULTATION CONSULTATION DATE: 03/19/2023 TO: [...] our patients to inform us about any tdkj-rez-icgsdpc medications or herbal remedies/nutritional supplements/alternative remedies. 2. [...] treatment options with their primary care provider.[id number] Note CONSULTATION PROCEDURE DATE: 02/21/2023 PROCEDURE: Right [...] removed. He was discharged after meeting criteriaThe [facility] [id number] NoteCONSULTATION CONSULTATION DATE: 12/18/2022 CHIEF COMPLAINT: Left [...] like to proceed. CC: Sumanth Hill M.D.[facility] [id number] NoteCONSULTATION PROCEDURE DATE: 12/18/2022 PREOPERATIVE DIAGNOSIS: Osteoarthritis [...] will be followed up in the office.[facility] [id number] NoteCONSULTATION CONSULTATION DATE: 11/22/2022 HISTORY OF PRESENT [...] food. We will send a referral to [facility] to have his left CMC joint evaluated. Patient does agree with this, and we will follow him up in the clinic in three months' time.[facility] [id number] NotePROCEDURE: XR HAND LT MIN 3V HISTORY: [...] Electronically authenticated by: ALESSANDRO MEJIA Date: 2022-09-26 22:39[facility]11-[facility]-2022 NoteCONSULTATION CONSULTATION DATE: 09/20/2022 HISTORY OF PRESENT [...] mg t.i.d., Percocet 5/325 b.i.d., multivitamin and Bhqrf-Nx-Hlaq. Patient, procedure-holloway, had radiofrequency ablation of his [...] to the clinic thereafter for follow up.[facility] [id number] NoteCONSULTATION CONSULTATION DATE: 08/02/2022 HISTORY OF PRESENT [...] lately, carrying heavy feed bags into the [employer] for hunting season. He knows he is [...] of care and all questions were answered.[facility] [id number] NoteCONSULTATION CONSULTATION DATE: 06/14/2022 This is a [...] and Achilles reflexes are +2. DIAGNOSIS: Code [facility] is 724.6. PLAN: We will authorize for a left SI joint injection, refill his Percocet 5/325 b.i.d. and refill Diclofenac 50 mg t.i.d. He is compliant with his vitamin regimen. At this time, I reiterated the use of heat and stretches. The patient will be followed in the clinic post-procedure and agrees to move forward.[facility] HospitalEvaluation noteNo assessment information available [facility] Work Phone: Evaluation note* Diagnosis Lumbar radiculopathy, chronic- Primary [facility]* Diagnosis Neurogenic claudication- Primary Spinal stenosis of lumbar region Lumbar radiculopathy, chronic [facility]* Diagnosis Radiculopathy, lumbar region [...] of lumbar region [facility] Diagnosis Radiculopathy, lumbar region- Primary Thoracic or lumbosacral neuritis or radiculitis, unspecified Radiculopathy, lumbar region Thoracic or lumbosacral neuritis or radiculitis, unspecified Neurogenic claudication Spinal stenosis of lumbar region Neurogenic claudication Spinal stenosis of lumbar region documented [facility]* Diagnosis Onset Date Resolution Status Left hand pain acute 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, left hand acute [facility] Work Phone: Evaluation note* Diagnosis Onset Date Resolution Status Left hand pain acute 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, left hand acute Left hand pain acute 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, left hand acute [facility] Work Phone: Evaluation note* Diagnosis Routine general medical examination at a health care facility- Primary Lumbar radiculopathy, chronic Spondylolisthesis of lumbar region Pure hypercholesterolemia Adenocarcinoma of prostate ([facility]) Malignant neoplasm of prostate documented in this encounter [facility] System[facility] general Narrative - Reported* Type Description Date Medical History post knee right replacement Surgical History knee replacement right Surgical History hernia Surgical History prostatectomy Surgical History acetabulum fx Hospitalization History see above [facility] Other InstructionsNot on filedocumented in this encounter [facility] filedocumented in this encounter [facility] SystemInstructionsNot on filedocumented in this encounter [facility] SystemInstructionsNot on filedocumented in this encounter [facility] SystemInstructionsNot on filedocumented in this encounter [facility] SystemReason for referral (narrative)* Consultation (Routine) - Pending Review Specialty Diagnoses / Procedures Referred By Gaston borges Referred To Contact Neurosurgery Diagnoses Lumbar radiculopathy, chronic Defrance, Sumanth Borges MD [address] [place] [address] Mayco Nolen MD [address] [facility] [address] [place] [address] Referral ID Status Reason Start Date Expiration Date Visits Requested Visits Authorized [id number] Pending Review Specialty Services Required 11/05/2023 11/04/2024 1 1 [facility] for referral (narrative)* Consultation (Routine) - Pending Review Specialty Diagnoses / Procedures Referred By Gaston t Referred To Contact Pain Medicine Diagnoses Lumbar radiculopathy, chronic Neurogenic claudication Carl Sosa APRN-CNP [address] [facility] [address] [place] [address] [address] Referral ID Status Reason Start Date Expiration Date V isits Requested Visits Authorized [id number] Pending Review 11/14/2023 11/13/2024 1 1 * Physical Therapy (Routine) - Pending Review Specialty Diagnoses / Procedures Referred By Gaston borges Referred To Contact Rehabilitation Diagnoses Lumbar radiculopathy, chronic Neurogenic claudication Carl Sosa APRN-CNP [address] [facility] [address] [place] [address] [facility] [address] [place] [phone] Referral ID Status Reason Start Date Expiration Date Visits Requested Visits Authorized [id number] Pending Review Specialty Services Required 11/14/2023 11/13/2024 1 1 [facility] Summary Purpose Family History No Family History [...] Code 10/04/2023 11:04 AM 10/06/2023 2:53 PM Date Activated Date Inactivated Comments 12/27/2023 2:16 AM 12/27/2023 2:55 PM Date Activated Date Inactivated Comments 10/04/2023 11:04 AM 10/06/2023 2:53 PM Chief Complaint and Reason for Visit Chief Complaint M79.642 Chief Complaint 3 months Reason for Visit Left hand pain Unilateral primary osteoarthritis of first carpometacarpal joint, left hand Chief Complaint 3 month follow up Reason for Visit Left hand pain Unilateral primary osteoarthritis of first carpometacarpal joint, left hand Chief Complaint 3 month follow up 10 WEEKS Reason for Visit Left hand pain Unilateral primary osteoarthritis of first carpometacarpal joint, left hand Left hand pain Unilateral primary osteoarthritis of first carpometacarpal joint, left hand Additional Source Comments (unrecognized sect ion and content) No Status Records FoundNo Status Records FoundNo Status Records FoundNo Status Records FoundNo Status Records FoundNo Status Records FoundNo Status Records FoundNo Status Records FoundNo Status Records FoundNo Status Records Found INFORMATION SOURCE (unrecogn ized section and content) DATE CREATED AUTHOR 04/21/2018 [facility] DATE CREATED AUTHOR AUTHOR'S ORGANIZ ATION 02/25/2022 [facility] dical Specialist DATE CREATED AUTHOR AUTHOR'S ORGANIZ ATION 04/12/2023 [facility] DATE CREATED AUTHOR AUTHOR'S ORGANIZ ATION 11/27/2023 [facility] DATE CREATED AUTHOR AUTHOR'S ORGANIZ ATION 04/25/2024 [facility] DATE CREATED AUTHOR AUTHOR'S ORGANIZ ATION 06/05/2024 [facility] DATE CREATED AUTHOR AUTHOR'S ORGANIZ ATION 06/19/2024 [facility] Specialists EPIC DATE CREATED AUTHOR AUTHOR'S ORGANIZ ATION 07/04/2024 [facility] DATE CREATED AUTHOR AUTHOR'S ORGANIZ ATION 08/12/2024 [facility] DATE CREATED AUTHOR AUTHOR'S ORGANIZ ATION 08/26/2024 [facility] REASON FOR VISIT (unrecogniz ed section and content) Reason Onset Date Comments Er Follow-up 11/05/2023 Reason Comments 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/no w/c/mailed pkt Specialty Diagnoses / Procedures Referred By Contac t Referred To Contact Neurosurgery Diagnoses Lumbar radiculopathy, chronic Sumanth Hill MD [address] [place] [address] Mayco Nolen MD [address] [place] [phone] Referral ID Status Reason Start Date Expiration Date Visits Requested Visits Authorized [id number] Pending Review Specialty Services Required 11/05/2023 11/04/2024 1 1 Reason Onset Date Comments surgery 12/10/2023 Reason Onset Date Comments surgery 12/24/2023 Specialty Diagnoses / Procedures Referred By Contac t Referred To Contact Referral ID Status Reason Start Date Expiration Date Visits Re quested Visits Authorized [id number] 1 1 Reason Comments Annual Exam Care Teams (unrecognized sec tion and content) [...] Active Charity Barkley MD Attending Provider Active Manager Club Relationship Specialty Start Date End Date Sumanth Hill MD [address] [place] [address] PCP - General Family Medicine 01/16/23 Manager Club Relationship Specialty Start Date End Date Sumanth Hill MD [address] [place] [address] PCP - General Family Medicine 01/16/23 Manager Club Relationship Specialty Start Date End Date Sumanth Hill MD [address] [place] [address] PCP - General Family Medicine 01/16/23 Manager Club Relationship Specialty Start Date End Date Sumanth Hill MD [address] [place] [address] PCP - General Family Medicine 01/16/23 Manager Club Relationship Specialty Start Date End Date Sumanth Hill MD [address] [place] [address] PCP - General Family Medicine 01/16/23 Manager Club Relationship Specialty Start Date End Date Sumanth Hill MD [address] [place] [address] PCP - General Family Medicine 01/16/23 Manager Club Relationship Specialty Start Date End Date Sumanth Hill MD [address] [place] [address] PCP - General Family Medicine 01/16/23 Manager Club Relationship Specialty Start Date End Date Sumanth Hill MD [address] [place] [address] PCP - General Family Medicine 01/16/23 Team [...] May 22, 2024 End: May 22, 2024 Manager Club Relationship Specialty Start Date End Date Sumanth Peres PCP - General Family Medicine 12/17/14 Team Status: Inactive Member Role Status Dates NON STAFF Primary Care Provider Active Start: July 31, 2024 End: July 31, 2024 Charity Barkley MD Attending Provider Active Start: July 31, 2024 End: July 31, 2024 Manager Club Relationship Specialty Start Date End Date Sumanth Hill MD [address] [place] [address] PCP - General Family Medicine 01/16/23 Manager Club Relationship Specialty Start Date End Date Sumanth Hill MD [address] [place] [address] PCP - General Family Medicine 01/16/23 Goals [...] RN)2143 (Stop Bag - Provider: Bandar Bahena, RN) enoxaparin (LOVENOX) syringe 40 mg 40 mg, subcutaneous, Daily, First dose on Tanya 12/26/23 at 0600, PACU & Post-op, When Creatinine Clearance 30 mL/min or greater Look-alike/sound-alike medication - verify indication for use. 524 (Given - Provider: Bandar Bahena RN) 520 (Given - Provider: Pineda Alexandra, MIREILLE) gabapentin (NEURONTIN) tablet 600 mg 600 mg, oral, 2 times daily, First dose on Sat12/25/23 at 2100, PACU & Post-op, Look-alike/sound-alike medication - verify indication for use. 2003 (Given - Provider: Shira Thomas RN) 822 (Given - Provider: José Miguel Devine RN)2022 (Given - Provider: Pineda Alexandra, MIREILLE) 943 (Given - Provider: Michaelle Zeng, IMREILLE) gentamicin 160 mg in 0.9% sod chl 1000 mL irrigation (bag) (COMPLETED) irrigation, Once, On Sat12/25/23 at 1600, For 1 dose, Intra-op 1520 (Given - Provider: Mayco oNlen MD - Comment: GAVE TO STERILE TABLE FOR SURGEONS USE.)1600 (Due) lactated ringers bolus (COMPLETED) 1,000 mL, intravenous, at 2,000 mL/hr, Administer over 0.5 Hours, Once, On Sat12/27/23 at 0915, For 1 dose 0905 (New Bag - Provider: Michaelle Zeng, MIREILEL)0935 (Stop Bag - Provider: Michaelle Zeng, MIREILLE) methocarbamoL (ROBAXIN) tablet 500 mg 500 mg, oral, 4 times daily, First dose on Tanya 12/26/23 at 0900 0912 (Given - Provider: José Miguel Devine RN)1414 (Given - Provider: José Miguel Devine RN)1752 (Given - Provider: José Miguel Devine RN)2150 (Given - Provider: Pineda Alexandra RN) 0945 (Given - Provider: Michaelle Zeng, RN) [...] RN) 09 (Given - Provider: Michaelle Zeng, MIREILLE) sennosides-docusate sodium (SENOKOT-S) 8.6-50 mg 1 tablet 1 tablet, oral, 2 times daily, First dose on Sat12/26/23 at 0900, PACU & Post-op, Start Post-Op Day 1: Hold for diarrhea 821 (Given - Provider: José Miguel Devine RN)2022 (Given - Provider: Pineda Alexandra, MIREILLE) 09 (Given - Provider: Michaelle Zeng, MIREILLE) sodium chloride 0.9 % flush 3 mL 3 mL, intravenous, Every 12 hours scheduled, First dose on Sat12/25/23 at 2100, PACU & Post-op, Once tolerating oral intake 2099 (Given - Provider: Shira Thomas RN) 08 (Given - Provider: José Miguel Devine RN)2022 (Given - Provider: Pineda Alexandra, MIREILLE) 0900 (Not Given - Provider: Michaelle Zeng, [...] muscle spasm 194 (Given - Provider: Shira Thomas, MIREILLE) 0800 (Not Given - Provider: José Miguel [...] for use. 1723 (Given - Provider: Sheri Adler, MIREILLE)1741 (Given - Provider: Sheri Adler RN) glucagon [...] Vibha Saeed RN) lidocaine-EPINEPHrine (XYLOCAINE W/EPI) 1 %-1:[id number] injection (CANCELED) As needed, Starting on Sat12/25/23 [...] RN) 0944 (Given - Provider: Michaelle Zeng, MIREILLE) oxyCODONE (ROXICODONE) immediate release tablet 5 mg(Linked Group 2) 5 mg, oral, Every 3 hours PRN, moderate pain - pain scale 4-6, Starting on Sat12/25/23 at 1715, PACU & Post-op, Look-alike/sound-alike medication - verify indication for use. Immediate release. 1720 (See Alternative - Provider: Sheri Adler RN)2056 (See Alternative - Provider: Shira Thomas RN)233 (See Alternative - Provider: Bandar Bahena RN) 045 (See Alternative - Provider: Bandar Bahena RN)1227 [...] - verify indication for use. Immediate release. Source Comments (unrecognize d section and content) In the event this informatio n is protected by the Federal Confidentiality of Alcohol and Drug Abuse Patient Records regulations: The Federal rules restrict any use of the information to criminally investigate or prosecute any alcohol or drug abuse patient.[facility] FOR RECORDS PERTAINING TO PATIENTS WHO ARE [...] BE BASED ON THE PRIMARY CLINICAL RECORDS. [employer] provides no warranty or guarantee of the accuracy or completeness of information in this document.
--- NOTE | 2024-08-27 08:25 | P.CN_ITS ---
Consult Note: HPI Data of Consult Patient: known to practice within the last 3 years Consult date: 11/07/23 Requesting Physician: Danielle Davila NP Primary Care Provider: SUMANTH BECK Consult Narrative Reason for consult: f/u Narrative: Regan Green a pleasant 73 year old male presents for evaluation and manag ement of chronic low back pain, lumbar stenosis, lumbar radiculopathy, myofascial pain. Recent lumbar MRI reveals moderate to severe multilevel stenosis. Patient following with Dr Slick CRAIG in [place], status post L2-[address] Nolen had recommended L4-5 CHANTELLE be completed, which was changed to Caudal targeting L5-S1 due to laminectomy. overall pt received greater than 50% improvement for 3 months. continues to report mild improvement from gabapentin 600mg TID, baclofen 10-20 mg TID PRN, percocet 5/325mg BID PRN moderate to severe pain. continues to have moderate to severe low back and right leg pain. Pain increased with standing walking and activity. cc:: CC: Danielle Davila NP Review of Systems ROS Status of ROS 10 or more systems reviewed and unremark able except as noted in history and below Musculoskeletal Reports: back pain and extremity pain PFSH PFSH Medical History Rheumatoid arthritis ?M06.9 - Rheumatoid arthritis, unspecified (ICD-10) Low back pain ?M54.50 - Low back pain, unspecified (ICD-10) Prostate cancer ?C61 - Malignant neoplasm of prostate (ICD-10) Sacroiliitis, not elsewhere classified ?M46.1 - Sacroiliitis, not elsewhere classified (ICD-10) Surgical History Status post hip surgery ?Z98.890 - Other specified postprocedural states (ICD-10) S/P hernia repair ?Z98.890 - Other specified postprocedural states (ICD-10) ?Z87.19 - Personal history of other diseases of the digestive system (ICD-10) S/P total knee arthroplasty ?Z96.659 - Presence of unspecified artificial knee joint (ICD-10) S/P prostatectomy ?Z90.79 - Acquired absence of other genital organ(s) (ICD-10) Meds Home Medications and Allergies Home Medications ?Medication ?Instructions ?Recorded ?Confirmed ?Type OSCAL WITH D PO .QD 04/18/23 History diclofenac sodium 75 mg 75 mg PO BID 04/18/23 05/19/24 History tablet,delayed release glucosamine-chondroitin 250 mg-200 2 tab PO .QD 04/18/23 05/19/24 History mg tablet (Osteo Bi-Flex) multivitamin 1 tab PO DAILY 04/18/23 05/19/24 History gabapentin 300 mg capsule 300 mg PO .qhs #30 caps 01/22/24 05/19/24 Rx vitamin B complex (Vitamins B 1 tab PO DAILY 01/22/24 05/19/24 History Complex tablet) oxycodone-acetaminophen 5 mg-325 1 tab PO BID PRN pain #60 tabs 04/17/24 05/19/24 Rx mg tablet (Percocet) diclofenac sodium 75 mg 75 mg PO BID PRN pain #60 tabs 05/14/24 05/19/24 Rx tablet,delayed release oxycodone-acetaminophen 5 mg-325 1 tab PO BID PRN pain #60 tabs 05/14/24 05/19/24 Rx mg tablet (Percocet) cyclobenzaprine 10 mg tablet mg 05/19/24 History oxycodone-acetaminophen 5 mg-325 1 tab PO BID PRN pain #60 tabs 06/18/24 Rx mg tablet (Percocet) oxycodone-acetaminophen 5 mg-325 1 tab PO BID PRN pain #60 tabs 07/17/24 Rx mg tablet (Percocet) oxycodone-acetaminophen 5 mg-325 1 tab PO BID PRN pain #60 tabs 08/20/24 Rx mg tablet (Percocet) Allergies Allergy/AdvReac Type Severity Reaction Status Date / Time No Known Drug Allergies Allergy Verified 05/19/24 07:15 Exam Constitutional Documenting provider has reviewed patient's vital signs: yes Common normals: no apparent distress, oriented x3, healthy appearing, alert and well nourished General appearance: cooperative HENNV Common normals: normocephalic, hearing grossly normal bilaterally and moist oral mucous membranes Head and scalp: normocephalic Eye Common normals: PERRL Pupil: PERRL Neck & C-Spine Common normals: full ROM General: normal visual inspection Chest Common normals: inspection of chest normal Respiratory Common normals: normal respiratory effort, no retractions and no use of accessory muscles Back & Pelvis Lumbar spine/lower back: ROM limited, pain with ROM and straight leg raise positive right Sacroiliac joints: SI joint(s) abnormal Other: decreased sensation to right L4,5,S1 strength 4/5 in RLE 5/5 in LLE Extremity Common normals: normal to inspection and full ROM Neuro Common normals: oriented x3, CN's II-XII intact bilaterally, moves all extremities, no focal motor deficits, no sensory deficits noted and deep tendon reflexes 2+ bilaterally Sensorium/orientation: alert Motor exam: no movement abnormalities noted and strength abnormal Other: strength 4/5 in RLE, 5/5 in LLE Psych Common normals: mental status grossly normal, thought process normal, cooperative, affect normal, speech normal and activity/motor behavior normal Speech: normal speech Thought process: normal thought process Results Additional Findings Additional findings: If on a controlled substance or opioids, I have checked an [place] report on this patient and there are no aberrancies noted in the prescribing history.??If on a controlled substance or opioid a drug screen was completed and reviewed within the last year, and if there has not been a drug screen completed we ordered one today to monitor higher risk, state monitored pain medication use. As part of providing excellent, safe, comprehensive care, the following was completed at our patient's visit: 1. A medication reconciliation and review to ensure accurate knowledge of current/active medications, including asking our patients to inform us about any [id number] medications or herbal remedies/nutritional supplements/alternative remedies. 2. A review to specifically ensure our patients have had annual screening for screening for depression, screening for tobacco use, and screening for unhealthy alcohol use. For concerning screenings had a discussion with the patient, provided patient education, and recommended follow-up with primary care provider when appropriate. If patient noted with a risk of falling, they received education on strength, gait, and balance training to prevent future risk of falling. Assessment and Plan Assessment and Plan (1) Lumbar stenosis with neurogenic claudication: (2) Post laminectomy syndrome: (3) Lumbar radiculopathy: (4) Lumbar stenosis: Qualifiers: Neurogenic claudication status: with neurogenic claudication Qualified Code(s): M48.062 - Spinal stenosis, lumbar region with neurogenic claudication (5) Muscle spasm: (6) Chronic prescription opiate use: Plan right L4-5 L5-S1 TFESI with Dr Corona continue percocet 5-325mg BID PRN moderate to severe pain continue flexeril 10mg TID PRN continue gabapentin 600mg TID continue HEP as tolerated f/u 2 weeks after injection
== END 2024-08-27 08:09 | disposition home or self-care (01) ==
LOC: PM 08:08
PROVIDERS: PCP Family Medicine; Visit Provider Nurse Practitioner
DX: M48.062 Spinal stenosis, lumbar region with neurogenic claudication (principal); M96.1 Postlaminectomy syndrome, not elsewhere classified; M54.16 Radiculopathy, lumbar region; M62.838 Other muscle spasm; Z79.891 Long term (current) use of opiate analgesic
CPT/HCPCS: G0463

== ENCOUNTER 2024-09-07 06:43 | Day surgery (SDC) | payer MEDICARE, OTHER, SELFPAY ==
--- OUTSIDE RECORDS SUMMARY | 2024-09-07 06:47 | XMS_ITS | CCD ---
Author Organization [facility] Providers Care Manager Social Services Name Role Phone PHYSICIAN, DEFAULT Unavailable Unavailable [...] Barkley Unavailable MD Charity Barkley Attending Provider [phone] NON STAFF Primary Care Provider UnavailSumatnh Ivan MD Primary Care Provider Chloe DELUCA, [...] Unavailable DEFRANCE, SUMANTH Avina Primary Care Unavailable OSSA, CARL Referring Unavailable DEFRANCE, SUMANTH Borges. Primary Care Unavailable SOSA, CARL Referring Unavailable DEFRANCE, SUMANTH Borges. Primary Care Unavailable SOSA, CARL Referring Unavailable DEFRANCE, SUMANTH Borges. Primary Care Unavailable SOSA, CARL Referring Unavailable DEFRANCE, SUMANTH Borges. Primary Care Unavailable DEFRANCE, SUMANTH Avina [...] Discontinued docusate sodium 50 mg / sennosides, assisted [...] Administer over 2-5 minutes. polyethylene glycol 3350 21454 mg powder for oral solution (1 source) [...] Onset: 12-20-2023 Episodic Other aftercare (1 source) detention (current) use of 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; Translations: [detention (current) use of 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] Onset: 12-20-2023 Episodic [...] 08-25-20 ABSOLUTE BASOPHIL 0.1 X10E9/L Normal 0.0-0.2 [facility] Comment on above: Performed By: #### T MACIER, 93631-1, CMP, CBCA #### [facility] ([id number]) [address], [address] [place] [address] ABSOLUTE NEUTROPHIL 3.7 X10E9/L Normal 1.5-6.6 [facility] Comment on above: Performed By: #### T HYR, 78664-2, CMP, CBCA #### [facility] ([id number]) [address], [address] [place] [address] Basophils/100 WBC (Bld) 1.1 % Normal [facility] Comment on above: Performed By: #### T HYR, 61511-9, CMP, CBCA #### [facility] ([id number]) [address], [address] [place] [address] Eosinophils (Bld) [#/Vol] 0.2 10*3/uL Normal 0.0-0.4 [facility] Comment on above: Performed By: #### T NOE, 25927-1, CMP, CBCA #### [facility] ([id number]) [address], [address] [place] [address] Eosinophils/100 WBC (Bld) 2.6 % Normal [facility] Comment on above: Performed By: #### T NOE, 15573-8, CMP, CBCA #### [facility] ([id number]) [address], [facility] [address] [place] [address] Erythrocyte distribution width (RBC) [Ratio] 13.5 % Normal 11.5-15.0 [facility] Comment on above: Performed By: #### T NOE, 79614-3, CMP, CBCA #### [facility] ([id number]) [address], [address] [place] [address] Hematocrit (Bld) [Volume fraction] 44.7 % Normal 39-49 [facility] Comment on above: Performed By: #### Morales LIU, 73089-5, CMP, CBCA #### [facility] ([id number]) [address], [address] [place] [address] Hemoglobin (Bld) [Mass/Vol] 15.0 g/dL Normal 13.0-17.0 [facility] Comment on above: Performed By: #### T MACIER, 33771-1, CMP, CBCA #### [facility] ([id number]) [address], [address] [place] [address] Lymphocytes (Bld) [#/Vol] 1.5 10*3/uL Normal 1.0-3.5 [facility] Comment on above: Performed By: #### T HYR, 79745-7, CMP, CBCA #### [facility] ([id number]) [address], [address] [place] [address] Lymphocytes/100 WBC (Bld) 23.5 % Normal [facility] Comment on above: Performed By: #### T NOE, 75206-0, CMP, CBCA #### [facility] ([id number]) [address], [address] [place] [address] MCH (RBC) [Entitic mass] 32.1 pg Normal 27-34 [facility] Comment on above: Performed By: #### T NOE, 55888-1, CMP, CBCA #### [facility] ([id number]) [address], [facility] [address] [place] [address] MCHC (RBC) [Mass/Vol] 33.6 g/dL Normal 32-36 [facility] Comment on above: Performed By: #### Morales LIU, 01195-0, CMP, CBCA #### [facility] ([id number]) [address], [address] [place] [address] MCV (RBC) [Entitic vol] 96 fL Normal 80-100 [facility] Comment on above: Performed By: #### Morales LIU, 79695-5, CMP, CBCA #### [facility] ([id number]) [address], [address] [place] [address] Monocytes (Bld) [#/Vol] 0.8 10*3/uL Normal 0-0.9 [facility] Comment on above: Performed By: #### T MACIER, 41710-3, CMP, CBCA #### [facility] ([id number]) [address], [facility] [address] [place] [address] Monocytes/100 WBC (Bld) 13.1 % Normal [facility] Comment on above: Performed By: #### T HYR, 45132-6, CMP, CBCA #### [facility] ([id number]) [address], [address] [place] [address] Neutrophils/100 WBC (Bld) 59.7 % Normal [facility] Comment on above: Performed By: #### T NOE, 20304-0, CMP, CBCA #### [facility] ([id number]) [address], [address] [place] [address] Platelet mean volume (Bld) [Entitic vol] 7.5 fL Normal 7-12 [facility] Comment on above: Performed By: #### T NOE, 81829-9, CMP, CBCA #### [facility] ([id number]) [address], [address] [place] [address] Platelets (Bld) [#/Vol] 246 10*3/uL Normal 150-450 [facility] Comment on above: Performed By: #### T NOE, 36522-8, CMP, CBCA #### [facility] ([id number]) [address], [address] [place] [address] RBC COUNT 4.68 X10E12/L Normal 4.10-5.70 [facility] Comment on above: Performed By: #### Morales LIU, 59067-6, CMP, CBCA #### [facility] ([id number]) [address], [address] [place] [address] WBC (Bld) [#/Vol] 6.2 10*3/uL Normal 4.0-11.0 [facility] Comment on above: Performed By: #### T NOE, 98884-7, CMP, CBCA #### [facility] ([id number]) [address], [address] [place] [address] COMPREHENSIVE METABOLIC PANE Sandoval 08-25-2024 Albumin [Mass/Vol] 4.6 g/dL Normal 3.2-5.3 [facility] Comment on above: Performed By: #### T NOE, 17528-7, CMP, CBCA #### [facility] ([id number]) [address], [address] [place] [address] ALP [Catalytic activity/Vol] 77 U/L Normal 39-130 [facility] Comment on above: Performed By: #### T HYR, 54461-4, CMP, CBCA #### [facility] ([id number]) [address], [address] [place] [address] ALT [Catalytic activity/Vol] 36 U/L Normal 0-40 [facility] Comment on above: Performed By: #### T HYR, 08639-5, CMP, CBCA #### [facility] ([id number]) [address], [address] [place] [address] Anion gap [Moles/Vol] 11 mmol/L Normal 5-15 [facility] Comment on above: Performed By: #### T MACIER, 46788-1, CMP, CBCA #### [facility] ([id number]) [address], [address] [place] [address] AST [Catalytic activity/Vol] 31 U/L Normal 0-41 [facility] Comment on above: Performed By: #### T MACIER, 67937-2, CMP, CBCA #### [facility] ([id number]) [address], [address] [place] [address] Bilirubin [Mass/Vol] 0.5 mg/dL Normal 0.3-1.2 [facility] Comment on above: Performed By: #### T HYR, 54771-4, CMP, CBCA #### [facility] ([id number]) [address], [address] [place] [address] Calcium [Mass/Vol] 9.3 mg/dL Normal 8.5-10.5 [facility] Comment on above: Performed By: #### T HYR, 67446-7, CMP, CBCA #### [facility] ([id number]) [address], [address] [place] [address] Chloride [Moles/Vol] 104 mmol/L Normal 98-109 [facility] Comment on above: Performed By: #### Morales LIU, 27340-0, CMP, CBCA #### [facility] ([id number]) [address] [address] [place] [address] CO2 [Moles/Vol] 27 mmol/L Normal 22-32 [facility] Comment on above: Performed By: #### T NOE, 69627-9, CMP, CBCA #### [facility] ([id number]) [address] [address] Creatinine [Mass/Vol] 0.68 mg/dL Normal 0.60-1.30 [facility] Comment on above: Result Comment: METH OD TRACEABLE TO IDMS STANDARD Performed By: #### Morales LIU, 98352-5, CMP, CBCA #### [facility] ([id number]) [address], [facility] [address] [place] [address] eGFR (CKD-EPI) NON-RACE DEPENDENT >90 Normal >59 [facility] Comment on above: Result Comment: Reported eGFR is based on the CKD-EPI 2020 equation that does not use a race coefficient. Performed By: #### Morales LIU, 20258-6, CMP, CBCA #### [facility] ([id number]) [address] [address] [place] [address] Glucose [Mass/Vol] 84 mg/dL Normal 65-99 [facility] Comment on above: Performed By: #### T NOE, 63629-7, CMP, CBCA #### [facility] ([id number]) [address] [address] [place] [address] Potassium [Moles/Vol] 5.0 mmol/L Normal 3.5-5.0 [facility] Comment on above: Performed By: #### Morales LIU, 13954-8, CMP, CBCA #### [facility] ([id number]) [address], [address] [place] [address] Protein [Mass/Vol] 7.2 g/dL Normal 6.0-8.0 [facility] Comment on above: Performed By: #### Morales LIU, 71399-9, CMP, CBCA #### [facility] ([id number]) [address], [address] [place] [address] Sodium [Moles/Vol] 142 mmol/L Normal 134-146 [facility] Comment on above: Performed By: #### Morales LIU, 15432-7, CMP, CBCA #### [facility] ([id number]) [address], [address] [place] [address] Urea nitrogen [Mass/Vol] 15 mg/dL Normal 5-27 [facility] Comment on above: Performed By: #### Morales LIU, 91441-1, CMP, CBCA #### [facility] ([id number]) [address], [address] [place] [address] Lipid 1996 panelon 4 Cholesterol [Mass/Vol] 191 mg/dL Normal 150-200 [facility] Comment on above: Performed By: #### Morales LIU, 48317-2, CMP, CBCA #### [facility] ([id number]) [address], [address] [place] [address] Cholesterol in HDL [Mass/Vol] 54 mg/dL Normal >39 [facility] Comment on above: Result Comment: HDL <40 mg/dL - High Risk HDL > or = 40mg/dL- Desirable HDL >60 mg/dL - Negative Risk Performed By: #### Morales LIU, 50284-3, CMP, CBCA #### [facility] ([id number]) [address], [facility] [address] [place] [address] Cholesterol in LDL [Mass/Vol] 127 mg/dL Normal <130 [facility] Comment on above: Result Comment: LDL <100 mg/dL - Desirable LDL >160 mg/dL - High Risk Performed By: #### T HYR, 90029-6, CMP, CBCA #### [facility] ([id number]) [address] [address] [place] [address] Cholesterol in VLDL [Mass/Vol] 10 mg/dL Normal 0-30 [facility] Comment on above: Performed By: #### T MACIER, 85051-6, CMP, CBCA #### [facility] ([id number]) [address], [facility] [address] [place] [address] CHOLESTEROL:HDL 3.5 Normal 1.0-5.0 [facility] Comment on above: Performed By: #### T MACIER, 80081-1, CMP, CBCA #### [facility] ([id number]) [address] [address] [place] [address] Triglyceride [Mass/Vol] 50 mg/dL Normal 27-150 [facility] Comment on above: Performed By: #### T HYR, 88092-1, CMP, CBCA #### [facility] ([id number]) [address], [facility] [address] [place] [address] THYROID PROFILEon 08-25-2024 Free T4 [Mass/Vol] 0.93 ng/dL Normal 0.61-1.60 [facility] Comment on above: Performed By: #### T HYR, 92373-7, CMP, CBCA #### [facility] ([id number]) [address] [address] [place] [address] TSH 6.45 uIU/mL High 0.49-4.67 [facility] Comment on above: Performed By: #### T HYR, 95429-5, CMP, CBCA #### [facility] ([id number]) [address], [address] [place] [address] Prostate specific Ag [Mass/V ol]on 04-28-2024 PROSTATIC SPEC ANT <0.01 Normal 0.00-4.00 [facility] Comment on above: Result Comment: The method used for this test is [employer] DXI chemiluminescent immunoassay. Values obtained by different assay methods cannot be used interchangeably. Performed By: #### 2 857-1 #### [facility] ([id number]) [address], [address] [place] [address] XR SPINE LUMBAR 2 OR 3 VWSon [...] Granados MD on 04/24/2024 2:36 PM Normal [facility] MR LUMBAR SPINE WO CONTon MR [...] Matt Matute on 04/22/2024 2:10 PM Normal [facility] XR SPINE LUMB BENDING ONLY 2 -3 [...] Menjivar MD on 02/13/2024 2:22 PM Normal [facility] BASIC METABOLIC PANLon 12-27 Anion gap [Moles/Vol] 8 mmol/L Normal 5-15 [facility] Comment on above: Performed By: #### C TIP PÉREZ, , 43492-1 ####[facility] ([id number])[address], [address] [place] [address] Calcium [Mass/Vol] 9.2 mg/dL Normal 8.5-10.5 [facility] Comment on above: Performed By: #### C TIP PÉREZ, , 52856-5 ####[facility] ([id number])[address], [address] [address] Chloride [Moles/Vol] 103 mmol/L Normal 98-109 [facility] Comment on above: Performed By: #### C TIP PÉREZ, , 44952-3 ####[facility] ([id number])[address], [address] [place] [address] CO2 [Moles/Vol] 28 mmol/L Normal 22-32 [facility] Comment on above: Performed By: #### C BC, BMP, , ####[facility] ([id number])[address] [address], [place] [address] Creatinine [Mass/Vol] 0.77 mg/dL Normal 0.60-1.30 [facility] Comment on above: Result Comment: METH OD TRACEABLE TO IDMS STANDARD Performed By: #### C BC, BMP, , ####[facility] ([id number])[address] [address] [address] eGFR (CKD-EPI) NON-RACE DEPENDENT >90 Normal >59 [facility] Comment on above: Result Comment: Reported eGFR is based on the CKD-EPI 2020 equation that does not use a race coefficient. Performed By: #### Sujey PÉREZ, BMP, , 92662-9 ####[facility] ([id number])[address] [address], [place] [address] Glucose [Mass/Vol] 110 mg/dL High 65-99 [facility] Comment on above: Performed By: #### Sujey PÉREZ, BMP, , 18299-9 ####[facility] ([id number])[address] [address], [place] [address] Potassium [Moles/Vol] 4.3 mmol/L Normal 3.5-5.0 [facility] Comment on above: Performed By: #### C BC, BMP, , 68654-7 ####[facility] ([id number])[address] [address], [place] [address] Sodium [Moles/Vol] 139 mmol/L Normal 134-146 [facility] Comment on above: Performed By: #### Sujey BC, BMP, , 19650-2 ####[facility] ([id number])[address] [address], [place] [address] Urea nitrogen [Mass/Vol] 14 mg/dL Normal 5-27 [facility] Comment on above: Performed By: #### C , [facility], 13325-5, 97948-8 ####[facility] ([id number])[address] [facility] [place] [address] Basic Metabolic Panelon - Anion gap [Moles/Vol] 8 mmol/L 5 - 15 mmol/L [facility] Calcium [Mass/Vol] 9.2 mg/dL 8.5 - 10. 5 mg/dL [facility] Chloride [Moles/Vol] 103 mmol/L 98 - 109 mmol/L [facility] CO2 [Moles/Vol] 28 mmol/L 22 - 32 mmol/L [facility] Creatinine [Mass/Vol] 0.77 mg/dL 0.60 - 1.30 mg/dL [facility] Comment on above: METHOD TRACEABLE TO [facility] STANDARD eGFR (CKD-EPI)non-race dependent - PINF [facility] Comment on above: Reported eGFR is based on the CKD-EPI 2020 equation that does not use a race coefficient. Glucose [Mass/Vol] 110 mg/dL High 65 - 99 mg/dL [facility] Interpretation and review of laboratory results Abnormal [facility] Potassium [Moles/Vol] 4.3 mmol/L 3.5 - 5.0 mmol/L [facility] Sodium [Moles/Vol] 139 mmol/L 134 - 146 mmol/L [facility] Urea nitrogen [Mass/Vol] 14 mg/dL 5 - 27 mg/dL [facility] CBC without diffon Erythrocyte distribution width (RBC) [Ratio] 13.3 % 11.5 - 15.0 % [facility] Hematocrit (Bld) [Volume fraction] 36.3 % Low 39 - 49 % [facility] Hemoglobin (Bld) [Mass/Vol] 12.4 g/dL Low 13.0 - 17.0 g/dL [facility] Interpretation and review of laboratory results Abnormal [facility] MCH (RBC) [Entitic mass] 30.2 pg 27 - 34 pg [facility] MCHC (RBC) [Mass/Vol] 34.2 g/dL 32 - 36 g/dL [facility] MCV (RBC) [Entitic vol] 88 fL 80 - 100 fL [facility] Platelet mean volume (Bld) [Entitic vol] 7.2 fL 7 - 12 fL [facility] Platelets (Bld) [#/Vol] 243 10*3/uL [facility] RBC (Bld) [#/Vol] 4.12 10*6/uL [facility] WBC corrected for nucl RBC Auto (Bld) [#/Vol] 11.6 High [facility] COMPLETE BLOOD COUNTon 12-27 Erythrocyte distribution width (RBC) [Ratio] 13.3 % Normal 11.5-15.0 [facility] Comment on above: Performed By: #### C ELISA [facility], , 01773-0 ####[facility] ([id number])[address], [address] [address] Hematocrit (Bld) [Volume fraction] 36.3 % Low 39-49 [facility] Comment on above: Performed By: #### Sujey PÉREZ, [facility], , 18137-6 ####[facility] ([id number])[address], [address], [place] [address] Hemoglobin (Bld) [Mass/Vol] 12.4 g/dL Low 13.0-17.0 [facility] Comment on above: Performed By: #### Sujey BC, BMP, , 65440-7 ####[facility] ([id number])[address], [address], [place] [address] MCH (RBC) [Entitic mass] 30.2 pg Normal 27-34 [facility] Comment on above: Performed By: #### Sujey PÉREZ, BMP, , 65865-6 ####[facility] ([id number])[address], [address] [address] MCHC (RBC) [Mass/Vol] 34.2 g/dL Normal 32-36 [facility] Comment on above: Performed By: #### C BC, BMP, , 01424-9 ####[facility] ([id number])[address], [address] [place] [address] MCV (RBC) [Entitic vol] 88 fL Normal 80-100 [facility] Comment on above: Performed By: #### Sujey BC, BMP, , 98189-1 ####[facility] ([id number])[address], [address], [place] [address] Platelet mean volume (Bld) [Entitic vol] 7.2 fL Normal 7-12 [facility] Comment on above: Performed By: #### Sujey BC, BMP, , 30590-4 ####[facility] ([id number])[address] [address] Platelets (Bld) [#/Vol] 243 10*3/uL Normal 150-450 [facility] Comment on above: Performed By: #### Sujey BC, BMP, , 10217-3 ####[facility] ([id number])[address], [place] [address] RBC COUNT 4.12 X10E12/L Normal 4.10-5.70 [facility] Comment on above: Performed By: #### Sujey BC, BMP, , 75328-4 ####[facility] ([id number])[address], [address] [place] [address] WBC (Bld) [#/Vol] 11.6 10*3/uL High 4.0-11.0 [facility] Comment on above: Performed By: #### Sujey BC, BMP, , 98306-2 ####[facility] ([id number])[address], [address] [place] [address] ECG 12 leadon 12-27-2023 TRACEMASTERVUE [facility] Glucose Glucometer (BldC) [M ass/Vol]on 12-27-2023 Glucose [Mass/Vol] 98 mg/dL 65 - 99 mg/dL [facility] Glucose [Mass/Vol] 98 mg/dL Normal 65-99 [facility] MAGNESIUMon 12-27-2023 Magnesium [Mass/Vol] 1.9 mg/dL Normal 1.8-2.6 [facility] Comment on above: Performed By: #### TIP CADET, , 44001-0 ####[facility] ([id number])[address] [facility] [place] [address] Magnesiumon 12-27-2023 Magnesium [Mass/Vol] 1.9 mg/dL 1.8 - 2.6 mg/dL [facility] No Panel Informationon 12-27 [facility] TROPONIN Ion 12-27-2023 Troponin I.cardiac [Mass/Vol] ng/mL Normal 0.00-0.04 [facility] Comment on above: Performed By: #### TIP CADET, , 13253-3 ####[facility] ([id number])[address] [facility], [address] [place] [address] Troponin Ion 12-27-2023 Troponin I.cardiac [Mass/Vol] ng/mL 0.00 - 0.04 ng/mL [facility] Troponin I.cardiac [Mass/Vol ]on 12-27-2023 [facility] BASIC METABOLIC PANLon 12-26 Anion gap [Moles/Vol] 9 mmol/L Normal 5-15 [facility] Comment on above: Performed By: #### Sujey PÉREZ BMP #### [facility] ([id number]) [address], [address] [place] [id number] Calcium [Mass/Vol] 9.4 mg/dL Normal 8.5-10.5 [facility] Comment on above: Performed By: #### C ELISA, BMP #### [facility] ([id number]) [address], [address] [place] [address] Chloride [Moles/Vol] 106 mmol/L Normal 98-109 [facility] Comment on above: Performed By: #### C ELISA, BMP #### [facility] ([id number]) [address], [address] [place] [address] CO2 [Moles/Vol] 25 mmol/L Normal 22-32 [facility] Comment on above: Performed By: #### C ELIAS, BMP #### [facility] ([id number]) [address], [address] [place] [address] Creatinine [Mass/Vol] 0.63 mg/dL Normal 0.60-1.30 [facility] Comment on above: Result Comment: METH OD TRACEABLE TO IDMS STANDARD Performed By: #### Sujey PÉREZ, BMP #### [facility] ([id number]) [address], [address] [place] [address] eGFR (CKD-EPI) NON-RACE DEPENDENT >90 Normal >59 [facility] Comment on above: Result Comment: Reported eGFR is based on the CKD-EPI 2020 equation that does not use a race coefficient. Performed By: #### Sujey PÉREZ, BMP #### [facility] ([id number]) [address], [address] [place] [address] Glucose [Mass/Vol] 140 mg/dL High 65-99 [facility] Comment on above: Performed By: #### C ELISA, BMP #### [facility] ([id number]) [address], [address] [place] [address] Potassium [Moles/Vol] 4.6 mmol/L Normal 3.5-5.0 [facility] Comment on above: Performed By: #### Sujey PÉREZ, BMP #### [facility] ([id number]) [address], [address] [place] [address] Sodium [Moles/Vol] 140 mmol/L Normal 134-146 [facility] Comment on above: Performed By: #### C BC, BMP #### [facility] ([id number]) [address] [place] [address] Urea nitrogen [Mass/Vol] 17 mg/dL Normal 5-27 [facility] Comment on above: Performed By: #### C ELISA, BMP #### [facility] ([id number]) [address], [address] [place] [address] Basic Metabolic Panelon 12-06 Anion gap [Moles/Vol] 9 mmol/L 5 - 15 mmol/L [facility] Calcium [Mass/Vol] 9.4 mg/dL 8.5 - 10. 5 mg/dL [facility] Chloride [Moles/Vol] 106 mmol/L 98 - 109 mmol/L [facility] CO2 [Moles/Vol] 25 mmol/L 22 - 32 mmol/L [facility] Creatinine [Mass/Vol] 0.63 mg/dL 0.60 - 1.30 mg/dL [facility] Comment on above: METHOD TRACEABLE TO IDUT STANDARD eGFR (CKD-EPI)non-race dependent - PINF [facility] Comment on above: Reported eGFR is based on the CKD-EPI 2020 equation that does not use a race coefficient. Glucose [Mass/Vol] 140 mg/dL High 65 - 99 mg/dL [facility] Interpretation and review of laboratory results Abnormal [facility] Potassium [Moles/Vol] 4.6 mmol/L 3.5 - 5.0 mmol/L [facility] Sodium [Moles/Vol] 140 mmol/L 134 - 146 mmol/L [facility] Urea nitrogen [Mass/Vol] 17 mg/dL 5 - 27 mg/dL [facility] CBC without diffon Erythrocyte distribution width (RBC) [Ratio] 13.5 % 11.5 - 15.0 % [facility] Hematocrit (Bld) [Volume fraction] 37.5 % Low 39 - 49 % [facility] Hemoglobin (Bld) [Mass/Vol] 12.7 g/dL Low 13.0 - 17.0 g/dL [facility] Interpretation and review of laboratory results Abnormal [facility] MCH (RBC) [Entitic mass] 30.0 pg 27 - 34 pg [facility] MCHC (RBC) [Mass/Vol] 33.9 g/dL 32 - 36 g/dL [facility] MCV (RBC) [Entitic vol] 89 fL 80 - 100 fL [facility] Platelet mean volume (Bld) [Entitic vol] 7.2 fL 7 - 12 fL [facility] Platelets (Bld) [#/Vol] 264 10*3/uL [facility] RBC (Bld) [#/Vol] 4.23 10*6/uL [facility] WBC corrected for nucl RBC Auto (Bld) [#/Vol] 12.6 [facility] COMPLETE BLOOD COUNTon 12-26 Erythrocyte distribution width (RBC) [Ratio] 13.5 % Normal 11.5-15.0 [facility] Comment on above: Performed By: #### C ELISA, BMP #### [facility] ([id number]) [address], [address] [place] [address] Hematocrit (Bld) [Volume fraction] 37.5 % Low 39-49 [facility] Comment on above: Performed By: #### C ELISA, BMP #### [facility] ([id number]) [address] [place] [address] Hemoglobin (Bld) [Mass/Vol] 12.7 g/dL Low 13.0-17.0 [facility] Comment on above: Performed By: #### C ELISA, BMP #### [facility] ([id number]) [address], [address] [place] [address] MCH (RBC) [Entitic mass] 30.0 pg Normal 27-34 [facility] Comment on above: Performed By: #### C ELISA, BMP #### [facility] ([id number]) [address], [address] [place] [address] MCHC (RBC) [Mass/Vol] 33.9 g/dL Normal 32-36 [facility] Comment on above: Performed By: #### C ELISA, BMP #### [facility] ([id number]) [address], [address] [place] [address] MCV (RBC) [Entitic vol] 89 fL Normal 80-100 [facility] Comment on above: Performed By: #### C ELISA, BMP #### [facility] ([id number]) [address], [address] [place] [address] Platelet mean volume (Bld) [Entitic vol] 7.2 fL Normal 7-12 [facility] Comment on above: Performed By: #### C ELISA, BMP #### [facility] ([id number]) [address], [address] [place] [address] Platelets (Bld) [#/Vol] 264 10*3/uL Normal 150-450 [facility] Comment on above: Performed By: #### C ELISA, BMP #### [facility] ([id number]) [address], [address] [place] [address] RBC COUNT 4.23 X10E12/L Normal 4.10-5.70 [facility] Comment on above: Performed By: #### C ELISA, BMP #### [facility] ([id number]) [address], [address] [place] [address] WBC (Bld) [#/Vol] 12.6 10*3/uL High 4.0-11.0 [facility] Comment on above: Performed By: #### C ELISA, BMP #### [facility] ([id number]) [address], [address] [place] [address] ABO Rh Repeaton 12-25-2023 ABO AB [facility] Rh Nom (Bld) Positive [facility] [place] FLUORO GUIDANCE [...] Miguel Avelar on 12/25/2023 4:51 PM Normal [facility] RF Guidance for injection of Spine [...] José Miguel Avelar on 12/25/2023 4:51 PM [facility] Radiology Study observation (narrative) [facility] RF Guidance for injection of Spine facet jointOrdered By: José Miguel Avelar on 12-25-2023 [facility] Work Phone: Bacteria identified Cx Nom ( U)on 12-21-2023 Service comment (Unsp spec) [Interp] <10,000 ORGANISMS/ML NORMAL URO GENITAL CORINA [facility] ABO Rh Repeaton 12-20-2023 [facility]BO [facility] Nom (Bld) Positive [facility] APTTon 12-20-2023 aPTT Coag (PPP) [Time] 31 s [facility] BASIC METABOLIC PANLon 12-20 Anion gap [Moles/Vol] 13 mmol/L Normal 5-15 [facility] Comment on above: Performed By: #### C BCA, PINR, 77556-8, BMP #### [facility] ([id number]) [address], [address] [place] [address] Calcium [Mass/Vol] 10.1 mg/dL Normal 8.5-10.5 [facility] Comment on above: Performed By: #### C BCA, PINR, 21819-2, BMP #### [facility] ([id number]) [address], [address] [place] [address] Chloride [Moles/Vol] 103 mmol/L Normal 98-109 [facility] Comment on above: Performed By: #### C BCA, PINR, 83672-6, BMP #### [facility] ([id number]) [address], [address] [place] [address] CO2 [Moles/Vol] 25 mmol/L Normal 22-32 [facility] Comment on above: Performed By: #### C BCA, PINR, 98784-9, BMP #### [facility] ([id number]) [address], [address] [place] [address] Creatinine [Mass/Vol] 0.76 mg/dL Normal 0.60-1.30 [facility] Comment on above: Result Comment: METH OD TRACEABLE TO IDMS STANDARD Performed By: #### C BCA, PINR, 94848-1, BMP #### [facility] ([id number]) [address], [address] [address] eGFR (CKD-EPI) NON-RACE DEPENDENT >90 Normal >59 [facility] Comment on above: Result Comment: Reported eGFR is based on the CKD-EPI 2020 equation that does not use a race coefficient. Performed By: #### C BCA, PINR, 76631-4, BMP #### [facility] ([id number]) [address] [address] Glucose [Mass/Vol] 85 mg/dL Normal 65-99 [facility] Comment on above: Performed By: #### C ALEN, PINR, 55096-1, BMP #### [facility] ([id number]) [address] [address] Potassium [Moles/Vol] 5.0 mmol/L Normal 3.5-5.0 [facility] Comment on above: Result Comment: SPEC IMEN HEMOLYZED, RESULTS INCREASED MODERATELY HEMOLYZED Performed By: #### C BCA, PINR, 26191-9, BMP #### [facility] ([id number]) [address] [address] Sodium [Moles/Vol] 141 mmol/L Normal 134-146 [facility] Comment on above: Performed By: #### C BCA, PINR, 57841-0, BMP #### [facility] ([id number]) [address] [address] Urea nitrogen [Mass/Vol] 20 mg/dL Normal 5-27 [facility] Comment on above: Performed By: #### C BCA, PINR, 23022-4, BMP #### [facility] ([id number]) [address] [address] Basic Metabolic Panelon 12-05 Anion gap [Moles/Vol] 13 mmol/L 5 - 15 mmol/L [facility] Calcium [Mass/Vol] 10.1 mg/dL 8.5 - 10. 5 mg/dL [facility] Chloride [Moles/Vol] 103 mmol/L 98 - 109 mmol/L [facility] CO2 [Moles/Vol] 25 mmol/L 22 - 32 mmol/L [facility] Creatinine [Mass/Vol] 0.76 mg/dL 0.60 - 1.30 mg/dL [facility] Comment on above: METHOD TRACEABLE TO IDUT STANDARD eGFR (CKD-EPI)non-race dependent - PINF [facility] Comment on above: Reported eGFR is based on the CKD-EPI 2020 equation that does not use a race coefficient. Glucose [Mass/Vol] 85 mg/dL 65 - 99 mg/dL [facility] Potassium [Moles/Vol] 5.0 mmol/L 3.5 - 5.0 mmol/L [facility] Comment on above: SPECIMEN HEMOLYZED, RESULTS INCREASED MODERATELY HEMOLYZED Sodium [Moles/Vol] 141 mmol/L 134 - 146 mmol/L [facility] Urea nitrogen [Mass/Vol] 20 mg/dL 5 - 27 mg/dL [facility] CBC AND AUTO DIFFon 12-20-19 24 ABSOLUTE BASOPHIL 0.1 X10E9/L Normal 0.0-0.2 [facility] Comment on above: Performed By: #### BUCKY Rm BCA, 25270-5, BMP #### [facility] ([id number]) [address], [address] [place] [address] ABSOLUTE NEUTROPHIL 4.4 X10E9/L Normal 1.5-6.6 [facility] Comment on above: Performed By: #### Sujey LOWRY PINR, 27489-5, BMP #### [facility] ([id number]) [address], [address] [place] [address] Basophils/100 WBC (Bld) 0.9 % Normal [facility] Comment on above: Performed By: #### Sujey LOWRY PINR, 47703-0, BMP #### [facility] ([id number]) [address], [address] [place] [address] Eosinophils (Bld) [#/Vol] 0.2 10*3/uL Normal 0.0-0.4 [facility] Comment on above: Performed By: #### C BUCKY LOWRY, 33555-6, BMP #### [facility] ([id number]) [address] [address] [place] [address] Eosinophils/100 WBC (Bld) 2.6 % Normal [facility] Comment on above: Performed By: #### C ALEN PINR, 95565-6, BMP #### [facility] ([id number]) [address] [address] [place] [address] Erythrocyte distribution width (RBC) [Ratio] 13.6 % Normal 11.5-15.0 [facility] Comment on above: Performed By: #### C ALEN PINTerese, 18769-5, BMP #### [facility] ([id number]) [address], [facility] [address] [place] [address] Hematocrit (Bld) [Volume fraction] 45.1 % Normal 39-49 [facility] Comment on above: Performed By: #### C ALEN, PINR, 46462-0, BMP #### [facility] ([id number]) [address] [address] [place] [address] Hemoglobin (Bld) [Mass/Vol] 15.5 g/dL Normal 13.0-17.0 [facility] Comment on above: Performed By: #### C ALEN, PINR, 22019-0, BMP #### [facility] ([id number]) [address] [address] [place] [address] Lymphocytes (Bld) [#/Vol] 1.5 10*3/uL Normal 1.0-3.5 [facility] Comment on above: Performed By: #### C ALEN, PINR, 32937-9, BMP #### [facility] ([id number]) [address] [address] [place] [address] Lymphocytes/100 WBC (Bld) 21.7 % Normal [facility] Comment on above: Performed By: #### C ALEN, PINR, 95923-6, BMP #### [facility] ([id number]) [address], [address] [place] [address] MCH (RBC) [Entitic mass] 30.2 pg Normal 27-34 [facility] Comment on above: Performed By: #### C ALEN, PINR, 79401-3, BMP #### [facility] ([id number]) [address], [address] [place] [address] MCHC (RBC) [Mass/Vol] 34.4 g/dL Normal 32-36 [facility] Comment on above: Performed By: #### Sujey LOWRY PINR, 36627-5, BMP #### [facility] ([id number]) [address], [address] [place] [address] MCV (RBC) [Entitic vol] 88 fL Normal 80-100 [facility] Comment on above: Performed By: #### Sujey LOWRY, PINR, 00730-5, BMP #### [facility] ([id number]) [address], [address] [place] [address] Monocytes (Bld) [#/Vol] 1.0 10*3/uL High 0-0.9 [facility] Comment on above: Performed By: #### Sujey LOWRY, PINR, 09086-3, BMP #### [facility] ([id number]) [address], [address] [place] [address] Monocytes/100 WBC (Bld) 13.6 % Normal [facility] Comment on above: Performed By: #### Sujey LOWRY, PINR, 91837-8, BMP #### [facility] ([id number]) [address], [address] [place] [address] Neutrophils/100 WBC (Bld) 61.2 % Normal [facility] Comment on above: Performed By: #### Sujey LOWRY, PINR, 04129-6, BMP #### [facility] ([id number]) [address], [address] [place] [address] Platelet mean volume (Bld) [Entitic vol] 7.8 fL Normal 7-12 [facility] Comment on above: Performed By: #### Sujey LOWRY PINR, 54466-3, BMP #### [facility] ([id number]) [address], [facility] [address] [place] [address] Platelets (Bld) [#/Vol] 269 10*3/uL Normal 150-450 [facility] Comment on above: Performed By: #### Sujey LOWRY PINR, 11053-4, BMP #### [facility] ([id number]) [address], [facility] [address] [place] [address] RBC COUNT 5.12 X10E12/L Normal 4.10-5.70 [facility] Comment on above: Performed By: #### Sujey LOWRY, PINR, 55260-6, BMP #### [facility] ([id number]) [address], [address] [address] WBC (Bld) [#/Vol] 7.1 10*3/uL Normal 4.0-11.0 [facility] Comment on above: Performed By: #### Sujey LOWRY, PINR, 59106-9, BMP #### [facility] ([id number]) [address], [facility] [address] [place] [address] CBC auto differentialon 12-05 Basophils (Bld) [#/Vol] 0.1 10*3/uL [facility] Basophils/100 WBC (Bld) 0.9 % [facility] Eosinophils (Bld) [#/Vol] 0.2 10*3/uL [facility] Eosinophils/100 WBC (Bld) 2.6 % [facility] Erythrocyte distribution width (RBC) [Ratio] 13.6 % 11.5 - 15.0 % [facility] Hematocrit (Bld) [Volume fraction] 45.1 % 39 - 49 % [facility] Hemoglobin (Bld) [Mass/Vol] 15.5 g/dL 13.0 - 17.0 g/dL [facility] Interpretation and review of laboratory results Abnormal [facility] Lymphocytes (Bld) [#/Vol] 1.5 10*3/uL [facility] Lymphocytes/100 WBC (Bld) 21.7 % [facility] MCH (RBC) [Entitic mass] 30.2 pg 27 - 34 pg [facility] MCHC (RBC) [Mass/Vol] 34.4 g/dL 32 - 36 g/dL [facility] MCV (RBC) [Entitic vol] 88 fL 80 - 100 fL [facility] Monocytes (Bld) [#/Vol] 1.0 10*3/uL High [facility] Monocytes/100 WBC (Bld) 13.6 % [facility] Neutrophils (Bld) [#/Vol] 4.4 10*3/uL [facility] Neutrophils/100 WBC (Bld) 61.2 % [facility] Platelet mean volume (Bld) [Entitic vol] 7.8 fL 7 - 12 fL [facility] Platelets (Bld) [#/Vol] 269 10*3/uL [facility] RBC (Bld) [#/Vol] 5.12 10*6/uL [facility] WBC corrected for nucl RBC Auto (Bld) [#/Vol] 7.1 [facility] No Panel Informationon 12-20 [facility] PROTIME AND INRon 12-20-2023 INR Coag (PPP) [Relative time] 1.0 {INR} Normal 0.8-1.1 [facility] Comment on above: Performed By: #### C BCA, PINR, 40638-9, BMP #### [facility] ([id number]) [address] [facility] [address] [facility] [place] [address] PT Coag (PPP) [Time] 11.3 s Normal 9.8-13.2 [facility] Comment on above: Performed By: #### C BCA, PINR, 44864-3, BMP #### [facility] ([id number]) [address] [facility] [address] [facility] [place] [address] Protime & INRon 12-20-2023 INR Coag (PPP) [Relative time] 1.0 {INR} [facility] PT Coag (PPP) [Time] 11.3 s [facility] Type and screenon 12-20-2023 ABO AB [facility] Rh Nom (Bld) Positive [facility] URINALYSISon 12-20-2023 Bilirubin Ql (U) Negative Normal NEG [facility] BLOOD/HGB Negative Normal NEG [facility] Color (U) YELLOW Normal YELLOW [facility] Glucose Ql (U) Negative Normal NEG [facility] Ketones Ql (U) Negative Normal NEG [facility] Leukocyte esterase Test strip Ql (U) Negative Normal NEG [facility] MUCOUS PRESENT Abnormal NONE [facility] Nitrite Ql (U) Negative Normal NEG [facility] pH (U) 6.0 [pH] Normal 5.0-8.5 [facility] Protein Ql (U) Trace Abnormal NEG [facility] R.B.CELLS 2 /hpf Normal 0-5 [facility] Specific gravity (U) [Rel density] 1.026 Normal 1.003-1.035 [facility] TURBIDITY CLEAR Normal CLEAR [facility] Urobilinogen (U) [Mass/Vol] mg/dL Normal <1.1 [facility] W.B.CELLS 2 /hpf Normal 0-5 [facility] URINE CULTUREon 12-20-2023 Bacteria identified Cx Nom (U) CULTURE RESULTS <10,000 ORGANISMS/ML NORMAL URO GENITAL CORINA Normal [facility] Comment on above: Performed By: #### 6 30-4 #### [facility] ([id number]) [address], [address] [place] [address] Urinalysison 12-20-2023 Bilirubin Ql (U) Negative Negative^Ne ga tive [facility] Color (U) YELLOW YELLOW^YELLOW [facility] Glucose (U) [Mass/Vol] Negative Negative^Nega tive mg/dL [facility] Hemoglobin Auto test strip Ql (U) Negative Negative^Nega tive [facility] Interpretation and review of laboratory results Abnormal [facility] Ketones (U) [Mass/Vol] Negative Negative^Nega tive mg/dL [facility] Leukocyte esterase Auto test strip Ql (U) Negative Negative^Nega tive [facility] Mucus Ql (Urine sed) PRESENT Abnormal NONE^NONE [facility] Nitrite Auto test strip Ql (U) Negative Negative^Nega tive [facility] pH (U) 6.0 [pH] 5.0 - 8.5 [facility] Protein (U) [Mass/Vol] Trace Abnormal Negative^Nega tive mg/dL [facility] RBC Auto (Urine sed) [#/Area] 2 [facility] Specific gravity Refractometry automated (U) [Rel density] 1.026 1.003 - 1.035 [facility] Turbidity Ql (U) CLEAR CLEAR^CLEAR [facility] Urobilinogen Qn (U) NINF [facility] WBC Auto (Urine sed) [#/Area] 2 [facility] aPTT Coag (PPP) [Time]on aPTT Coag (Bld) [Time] 31 s Normal 26-37 [facility] Comment on above: Performed By: #### C ALEN, PINR, 40716-1, BMP #### [facility] ([id number]) [address], [address] [place] [address] XR SPINE LUMB BENDING ONLY 2 -3 [...] Morrell MD on 11/16/2023 8:57 PM Normal [facility] MR LUMBAR SPINE WO CONTon MR [...] Shaggy Ortega MD on 11/01/2023 10:24 AM [facility] XR shoulder RT min 2V*on XR shoulder RT min 2V* [facility] [place] [address] [place] [address] XRay Report Signed Patient: eRgan Green MR#: [id number] : 1950 Acct:[id number] Age/Sex: 73 / M ADM Date: 06/24/23 Loc: [facility] Room: Type: [facility] Attending Dr: Charity Barkley MD Copies [...] Artie Goldsmith M.D.06/24/2023 12:37 PM Dictation Location: [place] [address] Transcribed By: [facility] 06/24/23 9947 Dictated By: Artie Goldsmith DO 06/24/23 1236 Signed By: 06/24/23 1237 Normal [facility]on SARS-CoV-2 (COVID-19) RNA YASMIN+probe Ql (Unsp spec) Not detected Normal NOT DETECTED [facility] Comment on above: Result Comment: This test is not yet approved or cleared by the [place] FDA. When there are no FDA-approved or cleared tests available, and other criteria are met, FDA can make tests available under an emergency access mechanism called an Emergency Use Authorization (EUA). The EUA for this test is supported by the [place] of Health and Human Service's (HHS's) declaration [...] consistent with SARS-CoV-2. Performed By: #### C [facility] #### [facility] [address] [place] [address] Dr. Keely Fitzgerald MRI Shoulder w/o Lefton [...] by Boogie Modi on 02/23/2022 1229 Normal [facility] Hydrologist PELVIS [address] [facility] 04-16-20 PELVIS 1 OR [facility] [id number] [place] [address] ========Patient Name: REGAN GREEN : 1950ex: MAge: Race: WhiteMRN: [id number]. Location: 84Patient Status: OVisit #: [id number] Date: 04/16/2018 9:20:00 AMCompleted Date: 04/16/2018 09:18 AMRequesting Provider: BILLY KILLIAN Attending Provider: BILLY KILLIAN Report Copy To: Signs & Symptoms: M46.1 Sacroiliitis, not elsewhere classified V75Ooziibj: AthenaComments: , , , Ordering Provider - BILLY KILLIAN MD , Exam: PELVIS 1 OR 2 VWSAccession #: [id number] PELVIS 1 OR 2 VWS 04/16/2018 9:18 [...] fracture Electronically signed by:Lea Le. Transcribed by: [email or web address], User Resident: Electronically Signed by: LEA LE @ 04/16/2018 10:35 AM Normal [facility] Comment on above: Order Comment: , , = ========= , Ordering Provider - BILLY KILLIAN MD , Vital Signs Date Time Vital Sign Value Performing Clinician Facility 08-11-2024 09:120400 Body height 182.9 cm Sumanth Hill MD Work Phone: [employer] 08-11-2024 09:120400 Body mass index (BMI) [Ratio] 30.04 kg/m2 [facility] 08-11-2024 09:120400 Body temperature 96.8 [degF] Sum[facility] Hill MD [facility] 08-11-2024 09:120400 Body weight 100.47 kg Sumanth Hill MD Work Phone: [employer] 08-11-2024 09:12-0400 Diastolic blood pressure 82 mm[Hg] Sumanth Hill MD Work Phone: [facility] [employer] [facility] 08-11-2024 09:12-0400 Systolic blood pressure 134 mm[Hg] Sumanth Hill MD Work Phone: [facility] 12-27-2023 11:46-0500 Body temperature 98.29 [degF] Mayco Nolen MD Work Phone: [facility] 12-27-2023 11:46-0500 Diastolic blood pressure 77 mm[Hg] Mayco Nolen MD Work Phone: [facility] 12-27-2023 11:46-0500 Heart rate 84 /min Mayco Nolen MD Work Phone: [facility] 12-27-2023 11:46-0500 Respiratory rate 14 /min Mayco Nolen MD Work Phone: [facility] 12-27-2023 11:46-0500 Systolic blood pressure 127 mm[Hg] Mayco Nolen MD Work Phone: [facility] 12-27-2023 04:23-0500 SaO2% (BldA) [Mass fraction] 94 % Mayco Nolen MD Work Phone: [facility] 12-25-2023 22:54-0500 Body mass index (BMI) [Ratio] 28.76 kg/m2 Mayco Nolen MD Work Phone: [facility] 12-25-2023 22:54-0500 Body weight 96.2 kg Mayco Nolen MD Work Phone: [facility] 12-25-2023 13:27-0500 Body height 182.9 cm Mayco Nolen MD Work Phone: [facility] 12-20-2023 14:20-0500 Body height 182.9 cm [facility] 9 [facility] 12-20-2023 14:20-0500 Body mass index (BMI) [Ratio] 29.39 kg/m2 [facility] 9 [facility] 12-20-2023 14:20-0500 Body temperature 97.7 [degF] [facility] 9 [facility] 12-20-2023 14:20-0500 Body weight 98.3 kg [facility] 9 [facility] 12-20-2023 14:20-0500 Diastolic blood pressure 84 mm[Hg] [facility] 9 [facility] 12-20-2023 14:20-0500 Heart rate 77 /min [facility] 9 [facility] 12-20-2023 14:20-0500 Respiratory rate 18 /min [facility] 9 [facility] 12-20-2023 14:20-0500 SaO2% (BldA) [Mass fraction] 97 % [facility] 9 [facility] 12-20-2023 14:20-0500 Systolic blood pressure 132 mm[Hg] [facility] 9 [facility] 11-14-2023 09:59-0500 Body height 180.3 cm Carl Sosa [employer] Work Phone: [facility] 11-14-2023 09:59-0500 Body mass index (BMI) [Ratio] 29.57 kg/m2 Cralpadilla Sosa [employer] Work Phone: [facility] 11-14-2023 09:59-0500 Body weight 96.16 kg Carlpadilla Sosa [employer] Work Phone: [facility] 11-14-2023 09:59-0500 Diastolic blood pressure 86 mm[Hg] Carl Sosa [employer] Work Phone: [facility] 11-14-2023 09:59-0500 Heart rate 81 /min Carl Sosa [employer] Work Phone: [facility] 11-14-2023 09:59-0500 Systolic blood pressure 135 mm[Hg] Carl Sosa [employer] Work Phone: [facility] 05-21-2023 10:00-0400 Body height 182.88 cm Charity Barkley Other [facility] Other 05-21-2023 10:00-0400 Body mass index (BMI) [Ratio] 30.51 kg/m2 Charity Barkley Other [facility] Other 05-21-2023 10:00-0400 Body weight 102.06 kg Charity Barkley Other [employer] Other Encounters Encounter Date Encounter Type Care Provider Facility Start: 08-26-2024 End: 08-26-2024 Orders Only Sumanth Hill MD Work Phone: [facility] Start: 08-25-2024 End: 08-25-2024 ambulatory GAKONA Kailyn [facility] Start: 08-11-2024 End: 08-11-2024 ambulatory [facility] Start: 08-11-2024 Encounter for genera l adult medical examination without abnormal findings [facility] Start: 08-11-2024 End: 08-11-2024 Patient encounter procedure Sumanth Hill MD Work Phone: [facility] Comment on above: Routine general medi farida examination at a health care facility (Primary Dx); Lumbar radiculopathy, chronic; Spondylolisthesis of lumbar region; Pure hypercholesterolemia; Adenocarcinoma of prostate ([facility]) Start: 08-11-2024 End: 08-11-2024 Patient encounter status Sumanth Hill MD Work Phone: [facility] Work Phone: Start: 07-31-2024 End: 07-31-2024 ambulatory [facility] Work Phone: Start: 07-31-2024 End: 07-31-2024 Patient encounter procedure [facility] Work Phone: Start: 07-01-2024 End: 07-03-2024 Chart abstracting Un[facility] P[facility] (Hist) Neurology Start: 06-18-2024 End: 06-18-2024 ambulatory KING CLARK Not Available Start: 06-04-2024 End: 06-04-2024 ambulatory SUMANTH Borges MANJUPELON [facility] Start: 06-02-2024 End: 06-02-2024 ambulatory JESSICA REYES Not Available Start: 05-22-2024 End: 05-22-2024 ambulatory [facility] Work Phone: Start: 05-22-2024 End: 05-22-2024 Patient encounter procedure [facility] Work Phone: Start: 05-12-2024 End: 06-04-2024 ambulatory [facility] Start: 04-28-2024 End: 04-28-2024 ambulatory MINH Ahuja [facility] Start: 04-27-2024 End: 05-04-2024 ambulatory [facility] Start: 04-23-2024 End: 04-23-2024 ambulatory [facility] Start: 04-23-2024 End: 04-23-2024 ambulatory [facility] Start: 04-21-2024 End: 04-21-2024 ambulatory [facility] Start: 04-06-2024 End: 05-04-2024 ambulatory [facility] Start: 03-04-2024 End: 04-04-2024 ambulatory [facility] Start: 02-14-2024 End: 03-04-2024 ambulatory [facility] Start: 02-12-2024 End: 02-12-2024 ambulatory [facility] Start: 01-29-2024 End: 01-29-2024 ambulatory [facility] Work Phone: Start: 01-29-2024 End: 01-29-2024 Patient encounter procedure [facility] Work Phone: Start: 12-28-2023 End: 12-28-2023 ambulatory MARIA M VÁSQUEZ [facility] Start: 12-25-2023 End: 12-28-2023 ambulatory [place] Sarah [facility] Start: 12-25-2023 End: 12-27-2023 ambulatory [place] Sarah [facility] Start: 12-25-2023 End: 12-27-2023 Subsequent hospital visit by physician Mayco Nolen MD Work Phone: [facility] Comment on above: Radiculopathy, lumba r region; Neurogenic claudication Start: 12-24-2023 Telephone encounter [facility] Comment on above: surgery Start: 12-20-2023 Telephone encounter Hoda Chirinos [facility] Start: 12-20-2023 End: 12-20-2023 Patient encounter procedure [facility] Comment on above: Radiculopathy, lumba r region; Neurogenic claudication; Monitoring for anticoagulant use; Abnormal urine findings Start: 12-20-2023 End: 12-20-2023 ambulatory [place] Sarah [facility] Start: 12-18-2023 Documentation procedure Jasmin Noriega [employer] Work Phone: [facility] Start: 12-10-2023 Telephone encounter Myrtle Hatch LPN [facility] Comment on above: surgery Start: 12-05-2023 End: 01-03-2024 ambulatory [facility] Start: 11-27-2023 Telephone encounter [facility] Start: 11-22-2023 End: 12-05-2023 ambulatory [facility] Start: 11-18-2023 End: 11-19-2023 ambulatory Rosales Corona MD Facility:[facility] Start: 11-14-2023 End: 11-14-2023 ambulatory [facility] Start: 11-14-2023 End: 11-14-2023 Office outpatient new 45 minutes Carl Sosa [employer] Work Phone: [facility] Comment on above: Neurogenic claudicat ion (Primary Dx); Lumbar radiculopathy, chronic Start: 11-14-2023 End: 11-14-2023 ambulatory [facility] Start: 11-05-2023 Telephone encounter [facility]ores [facility] Comment on above: Er Follow-up Lumbar radiculopathy , chronic (Primary Dx) Start: 11-01-2023 End: 11-01-2023 ambulatory [facility] Start: 10-31-2023 End: 10-31-2023 Emergency department patient visit [facility] Start: 10-30-2023 End: 10-30-2023 ambulatory Charity Barkley Other [facility] Other Start: 10-30-2023 Office outpatient vi sit 15 minutes Charity Calvey [facility] Start: 10-22-2023 End: 10-23-2023 Emergency department patient visit MAEVE COTA [facility] Start: 08-20-2023 End: 08-20-2023 ambulatory Charity Barkley Other [facility] Other Start: 08-20-2023 Office outpatient vi sit 15 minutes Charity Deshawney [facility] Start: 07-23-2023 End: 07-23-2023 ambulatory Charity Calvey Other [facility] Other Start: 07-23-2023 Office outpatient vi sit 15 minutes Charity Calvey [facility] Start: 06-24-2023 Office outpatient vi sit 15 minutes Charity Calvey [facility] Start: 06-24-2023 End: 06-24-2023 Patient encounter procedure MD Charity Barkley Work Phone: [facility] Start: 06-24-2023 End: 06-24-2023 ambulatory NON STAFF [facility] Work Phone: Start: 05-21-2023 Office outpatient ne w 30 minutes Charity ELY [facility] Start: 05-21-2023 End: 05-21-2023 ambulatory MD Charity Barkley Work Phone: [facility] Work Phone: Start: 05-21-2023 End: 05-21-2023 Patient encounter procedure MD Charity Barkley Work Phone: [facility] Start: 03-19-2023 End: 03-20-2023 ambulatory NARENDRANATH LAKSHMIPATHY . Facility:[facility] Start: 02-21-2023 End: 02-22-2023 ambulatory NARENDRANATH SHEYSHMIPATHY . Facility:[facility] Start: 12-18-2022 End: 12-19-[address] ROMERO SOSA . Facility:[facility] Start: 11-22-2022 End: 11-23-[address] ROMERO SOSA . Facility:[facility] Start: 10-11-2022 Encounter for preprocedural laboratory examination DR ROMERO SOSA . [facility] Start: 10-09-2022 End: 10-09-[address] ROMERO SOSA . Facility:[facility] Start: 10-05-2022 End: 10-06-[address] ROMERO SOSA . Facility:[facility] Start: 10-05-2022 End: 10-06-2022 Encounter for preprocedural laboratory examination DR ROMERO SOSA . Facility:[facility] Start: 10-01-2022 Encounter for preprocedural cardiovascular examination ISELA SALMERON . [facility] Start: 09-26-2022 End: 09-27-2022 ambulatory ISELA [...] Start: 04-16-2018 End: 04-17-2018 Ambulatory BILLY KILLIAN Facility:[facility] Start: 01-28-2018 End: 01-29-2018 Ambulatory DEFAULT PHYSICIAN Facility:[facility] Procedures Date Procedure Procedure Detail Performing Clinician Start: 08-11-2024 Adult depression scr eening assessment Sumanth Hill MD Work Phone: Start: 04-23-2024 Follow-up visit Follow-up MAYCO NOLEN Start: 12-27-2023 Ecg routine ecg w/le ast 12 lds trcg only w/o i&r Christina Varma [employer] Work Phone: Start: 12-27-2023 End: 12-27-2023 Basic metabolic panel calcium total Christina Varma [employer] Work Phone: Start: 12-26-2023 Basic metabolic pane l calcium total Christina Varma [employer] Work Phone: Start: 12-25-2023 Fluor needle/cath spine/paraspinal [...] Author Start: 07-30-2028 Lipid panel Lipid Screening [facility] Start: 12-27-2026 Diabetes Screening Diabetes Screening [facility] Start: 08-18-2025 End: 08-18-2025 Patient encounter procedure 08/18/2025 8:00 AM EDT [facility] [address] [place] [phone] [facility] Start: 08-11-2025 Adult BMI Screening Adult BMI Screening [facility] Start: 08-11-2025 Depression Screening Depression Screening [facility] Start: 08-11-2025 Fall Risk Screening Fall Risk Screening [facility] Start: 08-11-2025 Medicare Annual Wellness Visit Medicare Annual Wellness Visit [facility] Start: 08-11-2025 Tobacco Screening Tobacco Screening [facility] Start: 06-04-2025 Tobacco Screening Tobacco Screening [facility] Start: 12-25-2024 Adult BMI Screening Adult BMI Screening [facility] Start: 12-25-2024 Tobacco Screening Tobacco Screening [facility] Start: 12-20-2024 Adult BMI Screening Adult BMI Screening [facility] Start: 12-20-2024 Tobacco Screening Tobacco Screening [facility] Start: 11-14-2024 Adult BMI Screening Adult BMI Screening [facility] Start: 11-14-2024 Tobacco Screening Tobacco Screening [facility] Start: 10-31-2024 Tobacco Screening Tobacco Screening [facility] Start: 10-23-2024 Fall Risk Screening Fall Risk Screening [facility] Start: 10-22-2024 Adult BMI Screening Adult BMI Screening [facility] Start: 08-11-2024 End: 08-11-2025 CBC W Auto Differential panel - Blood CBC auto differential Lab Routine Pure hypercholesterolemia Expected: 08/11/2024, Expires: 08/11/2025 [facility] Work Phone: Comment on above: Expected: 08/11/2024, Expires: Start: 08-11-2024 End: 08-11-2025 Comprehensive metabolic 2000 panel - Serum or Plasma Comprehensive metabolic panel Lab Routine Pure hypercholesterolemia Expected: 08/11/2024, Expires: 08/11/2025 [facility] Comment on above: Expected: 08/11/2024, Expires: Start: 08-11-2024 End: 08-11-2025 Lipid 1996 panel - Serum or Plasma Lipid profile Lab Routine Pure hypercholesterolemia Expected: 08/11/2024, Expires: 08/11/2025 [facility] Comment on above: Expected: 08/11/2024, Expires: Start: 08-11-2024 End: 08-11-2025 Thyroid profile includes TSH FT4 Thyroid profile includes TSH FT4 Lab Routine Pure hypercholesterolemia Expected: 08/11/2024, Expires: 08/11/2025 [facility] Comment on above: Expected: 08/11/2024, Expires: Start: 08-11-2024 End: 08-11-2024 Patient encounter procedure 08/11/2024 9:00 AM EDT Office Visit [facility] [address] [place] [address] Sumanth Hill MD [address] [facility], [place] [phone] [facility] Start: 07-30-2024 End: 07-30-2024 Patient encounter procedure 07/30/2024 8:30 AM EDT Office Visit [facility] [address] [phone] Sumanth Hill MD [address] [place], [place] [phone] [facility] Start: 07-29-2024 Depression Screening Depression Screening [facility] Start: 07-29-2024 Medicare Annual Wellness Visit Medicare Annual Wellness Visit [facility] Start: 07-05-2024 COVID-19 Vaccine () COVID-19 Vaccine () [facility] Start: 07-05-2024 Influenza vaccination Influenza Vaccine (#1) [facility] Start: 04-21-2024 End: 04-21-2024 Patient encounter procedure 04/21/2024 1:45 PM EDT Office Visit [facility] [address] [place] [address] [place] [address] Minh Heller MD [address] [place] [address] [facility] Start: 03-25-2024 Screening for malignant neoplasm of colon [facility] Start: 02-13-2024 End: 02-13-2024 Patient encounter procedure 02/13/2024 1:50 PM EDT Office Visit [facility] [address] [place] [phone] Mayco Nolen MD [address] [place] [address] [address] [place] [phone] [facility] Start: 12-25-2023 End: 12-25-2023 Admission to same day surgery center 12/25/2023 2:45 PM EST - 12/25/2023 4:45 PM EST Surgery [facility] [address] [place] [phone] Mayco Nolen MD [address] [place] [address] [address] [place] [phone] LAMINECTOMY LUMBAR MULTI LEVEL / L2-L5 [facility] Comment on above: LAMINECTOMY LUMBAR MULTI LEVEL / L2-L5 Start: 12-25-2023 End: 12-25-2023 LAMINECTOMY LUMBAR MULTI LEVEL [facility] Start: 12-25-2023 Subsequent hospital visit by physician 12/25/2023 2:45 PM EST Hospital Encounter [facility] [address] [place] [address] Mayco Nolen MD [address] [place] [address] [address] [place] [address] [facility] Start: 12-06-2023 End: 12-06-2023 Patient encounter procedure 12/06/2023 7:00 AM EST Appointment [facility] [address] [place] [phone] [facility] Start: 11-14-2023 End: 11-14-2024 XR Lumbar spine Views AP W right bending and W left bending [facility] Work Phone: Comment on above: Expected: 11/14/2023, Expires: Start: 11-04-2023 Advance Directive Discussion Advance Directive Discussion [facility] Start: 07-05-2023 Covid-19 Vaccine ( season) Covid-19 Vaccine ( season) [facility] Start: 07-05-2023 COVID-19 Vaccine ( season) COVID-19 Vaccine ( season) [facility] Start: 2017 Abdominal aortic aneurysm screening Abdominal Aortic Aneurysm (AAA) Screen [facility] Start: 07-24-2013 Administration of varicella zoster vaccine Zoster (Shingles) Vaccine (1 of 2) [facility] Start: 07-24-2013 Shingrix Vaccine (2 of 3) Shingrix Vaccine (2 of 3) [facility] Start: 2012 RSV Vaccine (1 - 1-dose 60+ series) RSV Vaccine (1 - 1-dose 60+ series) [facility] Start: 1997 Screening for malignant neoplasm of colon [facility] Start: 1971 DTaP,Tdap and Td Vaccines (1 - Tdap) DTaP,Tdap and Td Vaccines (1 - Tdap) [facility] Start: 1971 Urine microalbumin profile DTaP,Tdap,Td Vaccine (1 - Tdap) [facility] Start: 1970 Adult BMI Follow Up Plan Adult BMI Follow Up Plan [facility] Start: 1970 Anxiety Screening Anxiety Screening [facility] Start: 1970 Depression Screening Depression Screening [facility] Start: 1970 Hepatitis C screening Hepatitis C Screening [facility] Start: 1952 Abdominal aortic aneurysm screening Abdominal Aortic Aneurysm Screening [facility] Immunizations Immunization Date Immunization Notes Care Provider Fa cility 07-09-2024 influenza, high dose seasonal, preservative-free Sumanth Hill MD Work Phone: [facility] 07-09-2024 Pneumococcal Conjuga te 20-valent Sumanth Hill MD Work Phone: [facility] 08-05-2023 Influenza, High-dose , Quadrivalent Sumanth Hill MD Work Phone: [facility] 08-05-2023 RSV, bivalent, prote in subunit RSVpreF, diluent reconstituted, 0.5 mL, PF Sumanth Hill MD Work Phone: [facility] 08-20-2022 Influenza, High-dose , Quadrivalent Dolores [facility] 08-20-2022 influenza virus vacc ine, unspecified formulation Unk (Hist) [facility] 04-26-2022 influenza, injectabl e, quadrivalent, preservative free Dolores [facility] 09-18-2021 influenza, injectabl e, quadrivalent, preservative free Dolores [facility] 07-20-2020 Influenza, High-dose , Quadrivalent Dolores [facility] 08-11-2019 influenza, high dose seasonal, preservative-free Dolores [facility] 08-11-2019 pneumococcal polysaccharide vaccine, 23 valent Dolores [facility] 07-31-2018 influenza, injectabl e, quadrivalent, preservative free Dolores [facility] 11-20-2017 influenza, seasonal, injectable, preservative free Dolores [facility] 11-20-2017 pneumococcal conjuga te vaccine, 13 valent Dolores [facility] 08-19-2013 pneumococcal polysaccharide vaccine, 23 valent Dolores [facility] 05-29-2013 zoster vaccine, live Dolores [facility] 05-29-2013 zoster vaccine, unspecified formulation Dolores [facility] 08-18-2012 influenza virus vacc ine, whole virus Dolores [facility] 08-13-2012 pneumococcal polysaccharide vaccine, 23 valent Dolores [facility] 08-13-2012 zoster vaccine, live Dolores [facility] 09-03-2011 influenza virus vacc ine, whole virus Dolores [facility] 09-11-2010 influenza virus vacc ine, whole virus Dolores [facility] 08-22-2009 influenza virus vacc ine, whole virus Dolores [facility] Payers Date Payer Category Payer Worker's Compensation [id number] 2023 Self-pay [id number] 2023 Unknown [id number] 2019 Commercial Indemnity [facility] [id number] 2019 Unknown 2017 Medicare [id number] 1959 Medicare [id number] 1959 Unknown [id number] 1959 Unknown [id number] 1952 Unknown [id number] 2.16.840.1.511141.3.579.2.5 1952 Unknown [id number] 2.16.840.1.167479.3.579.2.5 1952 Unknown [id number] 2.16.840.1.005192.3.579.2.5 1952 Unknown [id number] 2.16.840.1.441392.3.579.2.5 1952 Unknown [id number] 2.16.840.1.242901.3.579.2.5 1952 Unknown [id number] 2.16.840.1.009485.3.579.2.5 1952 Unknown [id number] 2.16.840.1.936479.3.579.2.5 1952 Unknown [id number] 2.16.840.1.960035.3.579.2.5 1952 Unknown [id number] 2.16.840.1.657126.3.579.2.5 1952 Unknown [id number] 2.16.840.1.043973.3.579.2.5 1952 Unknown [id number] 2.16.840.1.934849.3.579.2.5 1952 Unknown [id number] 2.16.840.1.549912.3.579.2.1 96 1952 Unknown [id number] 2.16.840.1.878109.3.579.2.1 286 1952 Unknown [id number] 2.16.840.1.963070.3.579.2.1 286 1952 Unknown [id number] 2.16.840.1.201349.3.579.2.1 286 1952 Unknown [id number] 2.16.840.1.554895.3.579.2.1 286 1952 Unknown [id number] 2.16.840.1.138608.3.579.2.1 286 1952 Unknown [id number] 2.16.840.1.413140.3.579.2.1 286 1952 Unknown [id number] 2.16.840.1.818016.3.579.2.1 286 1952 Unknown [id number] 2.16.840.1.671026.3.579.2.1 286 1952 Unknown [id number] 2.16.840.1.386657.3.579.2.1 259 1952 Unknown [id number] 2.16.840.1.028858.3.579.2.1 259 1952 Unknown [id number] 2.16.840.1.972323.3.579.2.1 286 1952 Unknown [id number] 2.16.840.1.091966.3.579.2.1 286 1952 Unknown [id number] 2.16.840.1.630884.3.579.2.1 286 1952 Unknown [id number] 2.16.840.1.188508.3.579.2.1 286 1952 Unknown [id number] 2.16.840.1.267277.3.579.2.1 286 1952 Unknown [id number] 2.16.840.1.697527.3.579.2.1 286 1952 Unknown [id number] 2.16.840.1.598671.3.579.2.1 286 1952 Unknown [id number] 2.16.840.1.919753.3.579.2.1 286 1952 Unknown [id number] 2.16.840.1.757134.3.579.2.1 286 1952 Unknown [id number] 2.16.840.1.268593.3.579.2.1 1952 Unknown [id number] 2.16.840.1.951528.3.579.2.1 1952 Unknown [id number] 2.16.840.1.803874.3.579.2.1 1952 Unknown [id number] 2.16.840.1.884394.3.579.2.1 1952 Unknown [id number] 2.16.840.1.977933.3.579.2.1 1952 Unknown [id number] 2.16.840.1.738530.3.579.2.1 1952 Unknown [id number] 2.16.840.1.239054.3.579.2.1 1952 Unknown [id number] 2.16.840.1.865918.3.579.2.1 1952 Unknown [id number] 2.16.840.1.248628.3.579.2.1 1952 Unknown [id number] 2.16.840.1.519115.3.579.2.1 1952 Unknown [id number] 2.16.840.1.132584.3.579.2.1 286 Unknown [facility] [id number] Unknown [id number] 2.16.840.1.613101.3.579.2.5 31 Social History Date Type Detail Facility Unknown if ever smoked [facility] Work Phone: Start: 12-01-2019 End: 12-15-2020 Sex Assigned At [facility] [employer] Other Start: 1950 Sex Assigned At Male F [facility] Start: 01-17-2023 End: 04-28-2024 Tobacco smoking status [facility] Ex-smoker [facility] End: 11-04-1996 History of tobacco use Current smoker [facility] End: 11-04-1996 History of tobacco use Cigarette Smoker [facility] Start: 01-17-2023 End: 04-28-2024 Tobacco use and exposure Smokeless tobacco non-user [facility] Start: 10-31-2023 End: 08-11-2024 Alcohol intake Current drinker of alcohol (finding) [facility] Start: 12-01-2019 End: 12-15-2020 History of Social function [facility] Frequency of Alcohol Consumption 4 or more times a week [facility] Start: 01-17-2023 Alcohol Comment socially [facility] Start: 1950 Sex Assigned At Not on file P [facility] Start: 11-07-2018 Tobacco smoking stat [facility] Never smoked tobacco (finding) [facility] Start: 06-09-2015 Sex Male (finding) [facility] Medical Equipment Procedure Code Equipment Code Equipment Origin al Text Equipment Identifier Dates Patch Dura 1x1in Drmtrx-[place] + Clgn Rgnrt Membr Strl Rpl [id number] - [id number] Start: 12-25-2023 Goals Date Patient Goal [...] original note were not included. [address] [place] [id number] Subjective: Regan Green is a 74 y.o. male who presents for a Medicare Annual Wellness exam. The following portions of the patient's history were reviewed and updated as appropriate: Health Risk Assessment, allergies, past medical history, past surgical history, social history, family history, and immunization history Accompanied by: self History Provided By: self Language and Other Communication Barriers: Primary Language Spoken: Central African Highest Level of Education Completed: high school [...] Do you have a durable power of attorney lawyer?: Yes Fall Risk Fall Risk Assessment Completed?: [...] with pain 02/08/2020 Malignant neoplasm of prostate ([facility]) 02/07/2017 Adenocarcinoma of prostate ([facility]) 11/20/2016 Past Medical History: Diagnosis Date Cancer of prostate ([facility]) 2017 prostatectomy Diverticulitis Diverticulosis Fecal impaction ([facility]) Inflammation of sacroiliac joint ([facility]) Knee pain Low back pain Lumbar disc disorder Neurogenic claudication 12/17/2023 Osteoarthritis SBO (small bowel obstruction) ([facility]) 10/04/2023 Shingles UTI (urinary tract infection) Varicose [...] 12/25/2023 Performed by Mayco Nolen MD at [facility] PROSTATE BIOPSY PROSTATECTOMY REVISION TOTAL KNEE [...] method used for this test is [employer] DXI chemiluminescent immunoassay. Values obtained by different [...] includes TSH FT4; Future Adenocarcinoma of prostate ([facility]) Follow Up: Consider inversion table fasting labs documented in this encounter [employer] 08-11-2024 Instructions Sumanth Hill MD - 08/11/2024 [...] services: Not applicable documented in this encounter [facility] 07-03-2024 Note HNO ID: [id number] Author: LUANNE ELLIOTT APRN.[employer] Service: ? Author Type: Nurse Practitioner Type: Progress Notes Filed: 07/03/2024 16:12 Note Text: Per Triage: Regan Green is a 74 year old male that requests evaluation of lumbar spine. Per review, they have symptoms of right leg pain from right knee to ankle numbness and weakness Patient lives in [facility] [address] Gregorio Palm 's [...] of imaging with him and injection history [facility] 07-03-2024 History of Present illness Narrative Per Triage: Regan Green is a 74 year old male that requests evaluation of lumbar spine. Per review, they have symptoms of right leg pain from right knee to ankle numbness and weakness Patient lives in [facility] [address] Gregorio Palm 's [...] Health Provider or Pain Management Provider at [facility]? No If answer is YES please [...] the facility where the MRI/CT/myelogram was completed: [facility] [address] [place] [address] MRI/CT/myelogram viewable in Epic: No If not, please provide [phone] to fax in imaging reports for review. Also, please inform patient to hand carry imaging disc to appointment. XR (spine) within 12 months: Yes If YES, please ask for the name/address of the facility where the XR was completed: [facility] [address] [place] [address] Dr. Robertson's patients: Have you had previous [...] injections and/or physical therapy was completed PT: [facility] [address] [place] [address] Injections: [facility] [address] [place] [address] Have you tried any other kinds of [...] the surgery was completed: 12/25/2023, Laminectomy L2-L5 [facility] [address] [place] [id number] Additional Comments [phone] documented in this encounter [facility] 07-01-2024 Note HNO ID: [id number] Author: ?, ?, ? Service: ? Author Type: ? Type: Progress Notes Filed: 07/03/2024 16:12 Note Text: Patient name: Regan Green Are you being referred by a [facility] Provider or Pain Management Provider at [facility]? No If answer is YES please [...] the facility where the MRI/CT/myelogram was completed: [place] [address] MRI/CT/myelogram viewable in Epic: No If not, please provide [phone] to fax in imaging reports for review. Also, please inform patient to hand carry imaging disc to appointment. XR (spine) within 12 months: Yes If YES,? please ask for the name/address of the facility where the XR was completed: [place] [address] Dr. Robertson's patients: Have you had previous [...] injections and/or physical therapy was completed PT: [facility] [address] [place] [address] Injections: [facility] [address] [place] [address] Have you tried any other kinds of [...] the surgery was completed: 12/25/2023, Laminectomy L2-L5 [facility] [address] [place] [address] Additional Comments [phone] [facility] 12-27-2023 Nurse Note Discharge instructions provided to patient. Patient verbalized understanding, and denies any further concerns at this time. IV removed at time of discharged. Patient gathered belongings from room. Patient in no apparent distress. Patient taken to entrance b in a wheelchair with . [facility] 12-27-2023 Nurse Note Discharge instructions provided to patient. Patient verbalized understanding, and denies any further concerns at this time. IV removed at time of discharged. Patient gathered belongings from room. Patient in no apparent distress. Patient taken to entrance b in a wheelchair with . documented in this encounter [facility] 12-27-2023 Plan of care note Problem: Pain Goal: Patient goal is pain score less than 4, able to rest, and participant in treatment plan as appropriate Description: INTERVENTIONS: 1. Encourage patient or legal employee's representative to report early pain and ask [...] per policy 9. Teach patient or legal employee's representative interventions for comforting 12/27/2023 1259 by [...] at the bedside 7. Instruct patient/ patient employee's representative about use of safety devices 8. Include patient/ patient employee's representative in decisions related to safety 12/27/2023 [...] hygiene technique 7. Identify and instruct patient/patient employee's representative in use of appropriate isolation precautions for identified infection/symptoms 8. Provide and discuss with patient/patient employee's representative on educational MDRO sheet 9. Encourage and monitor nutritional status daily and consult event coordinator marketing and sales if indicated 10. Implement neutropenic guidelines as [...] care ongoing. Problem: Knowledge Deficit Goal: Patient/patient employee's representative demonstrates understanding of disease process, treatment [...] Score of =/> 25 or indicated by [facility] Assessment Goal: Patient should be free from fall Description: Interventions: 1. [place] to environment 2. Hourly rounds addressing the [...] non-skid footwear 11. Teach patient and patient employee's representative to maintain environment for safety and [...] (cane, walker) within reach 19. Request patient employee's representative bring adaptive equipment/mobility aids from home or obtain and provide as needed 20. Consult pharmacy regarding effects of med's affecting mobility, cognition, and alternatives 21. Obtain physician order for PT if risk factors associated with mobility are present 22. Obtain physician order for OT as appropriate 23. Utilize diversional activities 24. Educate patient and patient employee's representative how to maintain a safe environment during visitation times (notify nurse prior to leaving bedside) 25. Consider appropriateness of medical or non-medical office technologist 26. Set up voiding schedule as appropriate [...] progress towards goal: Plan of care ongoing. [facility] 12-27-2023 Miscellaneous Notes Problem: Pain Goal: Patient goal is pain score less than 4, able to rest, and participant in treatment plan as appropriate Description: INTERVENTIONS: 1. Encourage patient or legal employee's representative to report early pain and ask [...] per policy 9. Teach patient or legal employee's representative interventions for comforting 12/27/2023 1259 by [...] at the bedside 7. Instruct patient/ patient employee's representative about use of safety devices 8. Include patient/ patient employee's representative in decisions related to safety 12/27/2023 [...] hygiene technique 7. Identify and instruct patient/patient employee's representative in use of appropriate isolation precautions for identified infection/symptoms 8. Provide and discuss with patient/patient employee's representative on educational MDRO sheet 9. Encourage and monitor nutritional status daily and consult event coordinator marketing and sales if indicated 10. Implement neutropenic guidelines as [...] care ongoing. Problem: Knowledge Deficit Goal: Patient/patient employee's representative demonstrates understanding of disease process, treatment [...] Score of =/> 25 or indicated by [facility] Assessment Goal: Patient should be free from fall Description: Interventions: 1. [place] to environment 2. Hourly rounds addressing the [...] non-skid footwear 11. Teach patient and patient employee's representative to maintain environment for safety and [...] (cane, walker) within reach 19. Request patient employee's representative bring adaptive equipment/mobility aids from home or obtain and provide as needed 20. Consult pharmacy regarding effects of med's affecting mobility, cognition, and alternatives 21. Obtain physician order for PT if risk factors associated with mobility are present 22. Obtain physician order for OT as appropriate 23. Utilize diversional activities 24. Educate patient and patient employee's representative how to maintain a safe environment during visitation times (notify nurse prior to leaving bedside) 25. Consider appropriateness of medical or non-medical office technologist 26. Set up voiding schedule as appropriate [...] Description: INTERVENTIONS: 1. Encourage patient or legal employee's representative to report early pain and ask [...] per policy 9. Teach patient or legal employee's representative interventions for comforting Outcome: Progressing Note: [...] at the bedside 7. Instruct patient/ patient employee's representative about use of safety devices 8. Include patient/ patient employee's representative in decisions related to safety Outcome: [...] hygiene technique 7. Identify and instruct patient/patient employee's representative in use of appropriate isolation precautions for identified infection/symptoms 8. Provide and discuss with patient/patient employee's representative on educational MDRO sheet 9. Encourage and monitor nutritional status daily and consult event coordinator marketing and sales if indicated 10. Implement neutropenic guidelines as needed 11. Review exposure to history of communicable disease and recent travel history on admission 12. Encourage annual influenza vaccine 13. Encourage pneumonia vaccine Outcome: Progressing Note: Evaluation of progress towards goal: Patient denies fever. No purulent drainage noted at site. Plan of care ongoing. Problem: Knowledge Deficit Goal: Patient/patient employee's representative demonstrates understanding of disease process, treatment [...] be free from fall Description: Interventions: 1. [place] to environment 2. Hourly rounds addressing the [...] non-skid footwear 11. Teach patient and patient employee's representative to maintain environment for safety and [...] (cane, walker) within reach 19. Request patient employee's representative bring adaptive equipment/mobility aids from home or obtain and provide as needed 20. Consult pharmacy regarding effects of med's affecting mobility, cognition, and alternatives 21. Obtain physician order for PT if risk factors associated with mobility are present 22. Obtain physician order for OT as appropriate 23. Utilize diversional activities 24. Educate patient and patient employee's representative how to maintain a safe environment during visitation times (notify nurse prior to leaving bedside) 25. Consider appropriateness of medical or non-medical office technologist 26. Set up voiding schedule as appropriate [...] Description: INTERVENTIONS: 1. Encourage patient or legal employee's representative to report early pain and ask [...] per policy 9. Teach patient or legal employee's representative interventions for comforting Outcome: Progressing Note: [...] at the bedside 7. Instruct patient/ patient employee's representative about use of safety devices 8. Include patient/ patient employee's representative in decisions related to safety Outcome: [...] hygiene technique 7. Identify and instruct patient/patient employee's representative in use of appropriate isolation precautions for identified infection/symptoms 8. Provide and discuss with patient/patient employee's representative on educational MDRO sheet 9. Encourage and monitor nutritional status daily and consult event coordinator marketing and sales if indicated 10. Implement neutropenic guidelines as needed 11. Review exposure to history of communicable disease and recent travel history on admission 12. Encourage annual influenza vaccine 13. Encourage pneumonia vaccine Outcome: Progressing Note: Evaluation of progress towards goal: patient free from s/s of infection Problem: Knowledge Deficit Goal: Patient/patient employee's representative demonstrates understanding of disease process, treatment [...] Score of =/> 25 or indicated by [facility] Assessment Goal: Patient should be free from fall Description: Interventions: 1. [place] to environment 2. Hourly rounds addressing the [...] non-skid footwear 11. Teach patient and patient employee's representative to maintain environment for safety and [...] (cane, walker) within reach 19. Request patient employee's representative bring adaptive equipment/mobility aids from home or obtain and provide as needed 20. Consult pharmacy regarding effects of med's affecting mobility, cognition, and alternatives 21. Obtain physician order for PT if risk factors associated with mobility are present 22. Obtain physician order for OT as appropriate 23. Utilize diversional activities 24. Educate patient and patient employee's representative how to maintain a safe environment during visitation times (notify nurse prior to leaving bedside) 25. Consider appropriateness of medical or non-medical office technologist 26. Set up voiding schedule as appropriate [...] Description: INTERVENTIONS: 1. Encourage patient or legal employee's representative to report early pain and ask [...] per policy 9. Teach patient or legal employee's representative interventions for comforting Outcome: Progressing Note: [...] at the bedside 7. Instruct patient/ patient employee's representative about use of safety devices 8. Include patient/ patient employee's representative in decisions related to safety Outcome: [...] hygiene technique 7. Identify and instruct patient/patient employee's representative in use of appropriate isolation precautions for identified infection/symptoms 8. Provide and discuss with patient/patient employee's representative on educational MDRO sheet 9. Encourage and monitor nutritional status daily and consult event coordinator marketing and sales if indicated 10. Implement neutropenic guidelines as needed 11. Review exposure to history of communicable disease and recent travel history on admission 12. Encourage annual influenza vaccine 13. Encourage pneumonia vaccine Outcome: Progressing Note: Evaluation of progress towards goal: Patient is being monitored for s/sx of infection. Problem: Knowledge Deficit Goal: Patient/patient employee's representative demonstrates understanding of disease process, treatment [...] be free from fall Description: Interventions: 1. [place] to environment 2. Hourly rounds addressing the [...] non-skid footwear 11. Teach patient and patient employee's representative to maintain environment for safety and [...] (cane, walker) within reach 19. Request patient employee's representative bring adaptive equipment/mobility aids from home or obtain and provide as needed 20. Consult pharmacy regarding effects of med's affecting mobility, cognition, and alternatives 21. Obtain physician order for PT if risk factors associated with mobility are present 22. Obtain physician order for OT as appropriate 23. Utilize diversional activities 24. Educate patient and patient employee's representative how to maintain a safe environment during visitation times (notify nurse prior to leaving bedside) 25. Consider appropriateness of medical or non-medical office technologist 26. Set up voiding schedule as appropriate [...] 6 Clicks: Basic Mobility Raw Score: 18 [facility] G Code Modifier: CK Therapy Plan Need for skilled Physical Therapy to address deficits in functional mobility due to a status decline resulting from recent admit on 12/25/23 with planned lumbar laminectomy at L2-L5 d/t radiculopathy of lumbar region. Past Medical History: Diagnosis Date Cancer of prostate ([facility]) 2017 prostatectomy Diverticulitis Diverticulosis Fecal impaction ([facility]) Inflammation of sacroiliac joint ([facility]) Knee pain Low back pain Lumbar disc disorder Neurogenic claudication 12/17/2023 Osteoarthritis SBO (small bowel obstruction) ([facility]) 10/04/2023 Shingles UTI (urinary tract infection) Varicose [...] 12/25/2023 Performed by Mayco Nolen MD at [facility] PROSTATE BIOPSY PROSTATECTOMY REVISION TOTAL KNEE ARTHROPLASTY [...] pass Equipment: RW, gait belt, wound drain Telemetry/Linux System Admin: Yes Oxygen Used: room air Other: fall [...] Patient will perform bed mobility with Modified [place] Dates: Start: 12/26/23 Expected End: 01/24/24 Description: Goal Description: with proper BUE placement and sequencing Disciplines: PT Problem: Gait Dates: Start: 12/26/23 Disciplines: PT Goal: Patient will perform gait with Modified [place] Dates: Start: 12/26/23 Expected End: 01/24/24 Description: With__RW__,__150__feet Goal Description: with proper gait pattern and safety awareness Disciplines: PT Problem: Stairs/Curb Dates: Start: 12/26/23 Disciplines: PT Goal: Patient will perform stairs/curb with Modified [place] Dates: Start: 12/26/23 Expected End: 01/24/24 Description: [...] Goal: Patient will perform transfers with Modified [place] Dates: Start: 12/26/23 Expected End: 01/24/24 Description: [...] Description: INTERVENTIONS: 1. Encourage patient or legal employee's representative to report early pain and ask [...] per policy 9. Teach patient or legal employee's representative interventions for comforting Outcome: Progressing Note: [...] hygiene technique 7. Identify and instruct patient/patient employee's representative in use of appropriate isolation precautions for identified infection/symptoms 8. Provide and discuss with patient/patient employee's representative on educational MDRO sheet 9. Encourage and monitor nutritional status daily and consult event coordinator marketing and sales if indicated 10. Implement neutropenic guidelines as [...] [place] punches. I then checked with a [place] elevator and confirmed that there was no [...] Nolen MD - Primary Assistants: None Staff: Chief Scientist Primary: Lily Glasgow RN Chief Scientist Relief: iDna Roy RN Scrub Person: Janak Holman CST [...] Implant Name Type Inv. Item Serial No. Bladder Changer Lot No. LRB No. Used Action PATCH DURA 1X1IN DRMTRX-ONLAY + CLGN RGNRT MEMBR STRL RPL [id number] - [id number] Graft PATCH DURA 1X1IN DRMTRX-ONLAY + CLGN RGNRT MEMBR STRL RPL [id number] PAULINA [employer] [id number] N/A 1 Implanted Estimated Blood Loss: 100 [...] no further orders documented in this encounter [facility] 12-27-2023 Hospital course Narrative Images from the original note were not included. [facility] [address] [place] [address], [address] [place] [address] * NEUROSURGERY DISCHARGE SUMMARY Patient: Regan Green Date of : 1950 Acct: [id number] Primary Care Physician: Sumanth Hill MD Admit [...] mg EC tablet Commonly known as: VOLTAREN [employer] HEALTH ORAL OSTEO BI-FLEX ORAL oxyCODONE-acetaminophen 5-325 mg per tablet Commonly known as: PERCOCET tiZANidine 4 mg tablet Commonly known as: ZANAFLEX Where to Get Your Medications These medications were sent to [facility] [id number] [facility] [address] [place] [address] AT [facility] [address] [facility] [address] methocarbamoL 500 mg tablet naloxone 4 mg/actuation [...] acceptable and clinically appropriate. JOSEMANUEL Lainez [facility] Patient Touch 12/27/23 12:28 PM JOSEMANUEL Sandoval 12/27/23 1233 documented in this encounter [facility] 12-27-2023 Hospital Discharge instructions JOSEMANUEL [...] remove at that time. Other Instructions: Call [facility] Neurosurgery with any questions, . The following attachments cannot be sent through Care Everywhere.Radiculopathy Discharge Instructions (Central African)documented in this encounter [facility] 12-27-2023 Plan of care note Problem: Pain Goal: Patient goal is pain score less than 4, able to rest, and participant in treatment plan as appropriate Description: INTERVENTIONS: 1. Encourage patient or legal employee's representative to report early pain and ask [...] per policy 9. Teach patient or legal employee's representative interventions for comforting Outcome: Progressing Note: [...] at the bedside 7. Instruct patient/ patient employee's representative about use of safety devices 8. Include patient/ patient employee's representative in decisions related to safety Outcome: [...] hygiene technique 7. Identify and instruct patient/patient employee's representative in use of appropriate isolation precautions for identified infection/symptoms 8. Provide and discuss with patient/patient employee's representative on educational MDRO sheet 9. Encourage and monitor nutritional status daily and consult event coordinator marketing and sales if indicated 10. Implement neutropenic guidelines as needed 11. Review exposure to history of communicable disease and recent travel history on admission 12. Encourage annual influenza vaccine 13. Encourage pneumonia vaccine Outcome: Progressing Note: Evaluation of progress towards goal: Patient denies fever. No purulent drainage noted at site. Plan of care ongoing. Problem: Knowledge Deficit Goal: Patient/patient employee's representative demonstrates understanding of disease process, treatment [...] be free from fall Description: Interventions: 1. [place] to environment 2. Hourly rounds addressing the [...] non-skid footwear 11. Teach patient and patient employee's representative to maintain environment for safety and [...] (cane, walker) within reach 19. Request patient employee's representative bring adaptive equipment/mobility aids from home or obtain and provide as needed 20. Consult pharmacy regarding effects of med's affecting mobility, cognition, and alternatives 21. Obtain physician order for PT if risk factors associated with mobility are present 22. Obtain physician order for OT as appropriate 23. Utilize diversional activities 24. Educate patient and patient employee's representative how to maintain a safe environment during visitation times (notify nurse prior to leaving bedside) 25. Consider appropriateness of medical or non-medical office technologist 26. Set up voiding schedule as appropriate [...] ongoing. [facility] [employer] 12-27-2023 Progress note Formatting of t his note is different from the original. Physical Therapy [facility] - Deferred Per RN pt is dizzy and diaphoretic laying supine in bed. Will hold PT treatment and attempt to complete session as able. [employer] 12-27-2023 History of Present illness Narrative Images from the original note were not included. [facility] [address] [place] [address], [address] [place] [address] * NEUROSURGERY DAILY PROGRESS NOTE DATE:12/27/2023 PATIENT'S [...] - Home later today JOSEMANUEL Lainez Neurosurgery [facility] Patient Touch 12/27/23 6:04 AM To find out which ESTEFANY is on for the day please go to [employer] and use log in [employer] and search for PTH Neurosurgery JOSEMANUEL Sandoval 12/26/23 1010 JOSEMANUEL Sandoval 12/27/23 1228 Images from the original note were not included. [facility] [address] [place] [address], [address] [place] [address] * NEUROSURGERY DAILY PROGRESS NOTE DATE:12/26/2023 PATIENT'S [...] later vs in AM JOSEMANUEL Lainez Neurosurgery [facility] Patient Touch 12/26/23 9:51 AM To find out which ESTEFANY is on for the day please go to [employer] and use log in [employer] and search for PTH Neurosurgery JOSEMANUEL Sandoval 12/26/23 1010 [facility] 12-27-2023 Plan of care note Problem: Pain Goal: Patient goal is pain score less than 4, able to rest, and participant in treatment plan as appropriate Description: INTERVENTIONS: 1. Encourage patient or legal employee's representative to report early pain and ask [...] per policy 9. Teach patient or legal employee's representative interventions for comforting Outcome: Progressing Note: [...] at the bedside 7. Instruct patient/ patient employee's representative about use of safety devices 8. Include patient/ patient employee's representative in decisions related to safety Outcome: [...] hygiene technique 7. Identify and instruct patient/patient employee's representative in use of appropriate isolation precautions for identified infection/symptoms 8. Provide and discuss with patient/patient employee's representative on educational MDRO sheet 9. Encourage and monitor nutritional status daily and consult event coordinator marketing and sales if indicated 10. Implement neutropenic guidelines as needed 11. Review exposure to history of communicable disease and recent travel history on admission 12. Encourage annual influenza vaccine 13. Encourage pneumonia vaccine Outcome: Progressing Note: Evaluation of progress towards goal: patient free from s/s of infection Problem: Knowledge Deficit Goal: Patient/patient employee's representative demonstrates understanding of disease process, treatment [...] Score of =/> 25 or indicated by [facility] Rehab Assessment Goal: Patient should be free from fall Description: Interventions: 1. [place] to environment 2. Hourly rounds addressing the [...] non-skid footwear 11. Teach patient and patient employee's representative to maintain environment for safety and [...] (cane, walker) within reach 19. Request patient employee's representative bring adaptive equipment/mobility aids from home or obtain and provide as needed 20. Consult pharmacy regarding effects of med's affecting mobility, cognition, and alternatives 21. Obtain physician order for PT if risk factors associated with mobility are present 22. Obtain physician order for OT as appropriate 23. Utilize diversional activities 24. Educate patient and patient employee's representative how to maintain a safe environment during visitation times (notify nurse prior to leaving bedside) 25. Consider appropriateness of medical or non-medical office technologist 26. Set up voiding schedule as appropriate [...] goal: patient maintaining body alignment per self [facility] [employer] [facility] 12-26-2023 Plan of care note Problem: Pain Goal: Patient goal is pain score less than 4, able to rest, and participant in treatment plan as appropriate Description: INTERVENTIONS: 1. Encourage patient or legal employee's representative to report early pain and ask [...] per policy 9. Teach patient or legal employee's representative interventions for comforting Outcome: Progressing Note: [...] at the bedside 7. Instruct patient/ patient employee's representative about use of safety devices 8. Include patient/ patient employee's representative in decisions related to safety Outcome: [...] hygiene technique 7. Identify and instruct patient/patient employee's representative in use of appropriate isolation precautions for identified infection/symptoms 8. Provide and discuss with patient/patient employee's representative on educational MDRO sheet 9. Encourage and monitor nutritional status daily and consult event coordinator marketing and sales if indicated 10. Implement neutropenic guidelines as needed 11. Review exposure to history of communicable disease and recent travel history on admission 12. Encourage annual influenza vaccine 13. Encourage pneumonia vaccine Outcome: Progressing Note: Evaluation of progress towards goal: Patient is being monitored for s/sx of infection. Problem: Knowledge Deficit Goal: Patient/patient employee's representative demonstrates understanding of disease process, treatment [...] Score of =/> 25 or indicated by [facility] Assessment Goal: Patient should be free from fall Description: Interventions: 1. [place] to environment 2. Hourly rounds addressing the [...] non-skid footwear 11. Teach patient and patient employee's representative to maintain environment for safety and [...] (cane, walker) within reach 19. Request patient employee's representative bring adaptive equipment/mobility aids from home or obtain and provide as needed 20. Consult pharmacy regarding effects of med's affecting mobility, cognition, and alternatives 21. Obtain physician order for PT if risk factors associated with mobility are present 22. Obtain physician order for OT as appropriate 23. Utilize diversional activities 24. Educate patient and patient employee's representative how to maintain a safe environment during visitation times (notify nurse prior to leaving bedside) 25. Consider appropriateness of medical or non-medical office technologist 26. Set up voiding schedule as appropriate [...] alignment. [facility] [employer] [facility] 12-26-2023 Progress note Formatting of t his [...] Medical History: Diagnosis Date Cancer of prostate ([facility]) 2017 prostatectomy Diverticulitis Diverticulosis Fecal impaction ([facility]) Inflammation of sacroiliac joint ([facility]) Knee pain Low back pain Lumbar disc disorder Neurogenic claudication 12/17/2023 Osteoarthritis SBO (small bowel obstruction) ([facility]) 10/04/2023 Shingles UTI (urinary tract infection) Varicose [...] pass Equipment: RW, gait belt, wound drain Telemetry/Linux System Admin: Yes Oxygen Used: room air Other: fall [...] Patient will perform bed mobility with Modified [place] Dates: Start: 12/26/23 Expected End: 01/24/24 Description: Goal Description: with proper BUE placement and sequencing Disciplines: PT Problem: Gait Dates: Start: 12/26/23 Disciplines: PT Goal: Patient will perform gait with Modified [place] Dates: Start: 12/26/23 Expected End: 01/24/24 Description: With__RW__,__150__feet Goal Description: with proper gait pattern and safety awareness Disciplines: PT Problem: Stairs/Curb Dates: Start: 12/26/23 Disciplines: PT Goal: Patient will perform stairs/curb with Modified [place] Dates: Start: 12/26/23 Expected End: 01/24/24 Description: [...] Goal: Patient will perform transfers with Modified [place] Dates: Start: 12/26/23 Expected End: 01/24/24 Description: Goal Description: with proper BUE placement and sequencing Disciplines: PT Physical Therapy Care Plan (Resolved) There are no resolved problems. Principal Problem: Radiculopathy, lumbar region Active Problems: Neurogenic claudication [facility] [employer] [facility] 12-26-2023 Progress note Formatting of t his [...] smoking, drinking alcohol or doing illciit drugs. [facility] 12-26-2023 Plan of care note Problem: Pain Goal: Patient goal is pain score less than 4, able to rest, and participant in treatment plan as appropriate Description: INTERVENTIONS: 1. Encourage patient or legal employee's representative to report early pain and ask [...] per policy 9. Teach patient or legal employee's representative interventions for comforting Outcome: Progressing Note: [...] hygiene technique 7. Identify and instruct patient/patient employee's representative in use of appropriate isolation precautions for identified infection/symptoms 8. Provide and discuss with patient/patient employee's representative on educational MDRO sheet 9. Encourage and monitor nutritional status daily and consult event coordinator marketing and sales if indicated 10. Implement neutropenic guidelines as [...] of progress towards goal: progressing with walker [facility] 12-25-2023 Procedure note NEUROSURGERY OPERATIVE NOTE [...] Kerrison punches. I then checked with a [place] elevator and confirmed that there was no [...] room with stable vital signs. Complications: None. [facility] 12-25-2023 Procedure note Brief Post-op Note NAME: Regan Green : 1950 PROCEDURE DATE: 12/25/2023 Surgeon: Surgeon(s) and Role: * Mayco Nolen MD - Primary Assistants: None Staff: Chief Scientist Primary: Lily Glasgow RN Chief Scientist Relief: Dina Roy RN Scrub Person: Janak [...] Implant Name Type Inv. Item Serial No. Bladder Changer Lot No. LRB No. Used Action PATCH DURA 1X1IN DRMTRX-ONLAY + CLGN RGNRT MEMBR STRL RPL [id number] - [id number] Graft PATCH DURA 1X1IN DRMTRX-ONLAY + CLGN RGNRT MEMBR STRL RPL [id number] PAULINA CRANIOMAXILLOFACIAL [id number] N/A 1 Implanted Estimated Blood Loss: 100 ml OB Surgical Procedure Blood Loss: Anesthesia EBL: * No values recorded between 12/25/2023 3:09 PM and 12/25/2023 4:54 PM * OB QBL: * No values recorded between 12/25/2023 3:09 PM and 12/25/2023 4:54 PM * Condition: stable Findings: severe lateral recess stenosis [facility] [employer] [facility] 12-25-2023 Attending History and physical note HISTORY AND PHYSICAL INTERVAL NOTE: Regan Green 1950 [id number] H&P reviewed. The patient was examined and there are no changes to the H&P. Mayco Nolen MD Source Note - JOSEMANUEL Daniels - 12/20/2023 6:12 PM EST Letter to pain management seeking clarification on post operative pain medications. JOSEMANUEL Jackson [facility] Neurosurgery Contact via patient touch 12/20/23 6:21 PM To find out which ESTEFANY is on for the day please go to [employer] and use log in [employer] and search for [facility] Neurosurgery (ESTEFANY and Phone Number is listed) JOSEMANUEL Daniels 12/20/23 1821 JOSEMANUEL Daniels 12/25/23 1330 [facility] 12-25-2023 History and physical note HISTORY AND PHYSICAL INTERVAL NOTE: Regan Green 1950 [id number] H&P reviewed. The patient was examined and there are no changes to the H&P. Mayco Nolen MD Source Note - JOSEMANUEL Daniels - 12/20/2023 6:12 PM EST Letter to pain management seeking clarification on post operative pain medications. JOSEMANUEL Jackson [facility]surgery Contact via patient touch 12/20/23 6:21 PM To find out which ESTEFANY is on for the day please go to [employer] and use log in [employer] and search for PTH Neurosurgery (ESTEFANY and Phone Number is listed) JOSEMANUEL Daniels 12/20/23 182 JOSEMANUEL Daniels 12/25/23 1330 documented in this encounter [facility] 12-24-2023 Miscellaneous Notes I spoke to Kenneth to explain how Medicare authorizes surgeries. Reminded Kenneth of surgery tomorrow 12/25/23 at 2:45pm with TTH arrival time of 12:45 pm documented in this encounter [facility] 12-24-2023 Telephone encounter Note I spoke to Kenneth to explain how Medicare authorizes surgeries. Reminded Kenneth of surgery tomorrow 12/25/23 at 2:45pm with TTH arrival time of 12:45 pm [facility] 12-24-2023 Nurse Note Anesthesia review: Parveen Patel: 12/25: TTH: GA. only hx prostate CA. No c/o CP or SOB. EKGs: LAst PCP note Reviewed and accepted by Dr Vásquez with no further orders [facility] 12-20-2023 Miscellaneous Notes Patient called to advise office that he does not need surgery clearance from PCP. documented in this encounter [facility] 12-20-2023 Telephone encounter Note Patient called to advise office that he does not need surgery clearance from PCP. [facility] 12-20-2023 History and physical note PRE-ADMISSION TESTING HISTORY AND PHYSICAL EXAM DATE: 12/20/23 PCP: Sumanth Hill MD CHIEF COMPLAINT: back pain HISTORY OF PRESENT ILLNESS: Regan Green, a 73 y.o. White or male, presents to [facility] for a pre-surgical H&P. The patient [...] Medical History: Diagnosis Date Cancer of prostate ([facility]) 2017 prostatectomy Diverticulitis Diverticulosis Fecal impaction ([facility]) Inflammation of sacroiliac joint ([facility]) Knee pain Low back pain Lumbar disc disorder Neurogenic claudication 12/17/2023 Osteoarthritis SBO (small bowel obstruction) ([facility]) 10/04/2023 Shingles UTI (urinary tract infection) Varicose [...] the most recent lab values available in [facility] at the time of the office visit. [facility] labs are pending per surgeon. ASSESSMENT / DIAGNOSIS: Linked DX: Radiculopathy, lumbar region [M54.16] PLAN: Regan Green is scheduled for Linked Case Date: 12/25/2023 Linked Surgeon: Forrest Nolen MD Linked Surgery: Laminectomy Lumbar Multi Level / L2-L5. JOSEMANUEL Santoyo 12/20/23 1511 [employer] 12-20-2023 History and physical note PRE-ADMISSION TESTING HISTORY AND PHYSICAL EXAM DATE: 12/20/23 PCP: Sumanth Hill MD CHIEF COMPLAINT: back pain HISTORY OF PRESENT ILLNESS: Regan Green, a 73 y.o. White or male, presents to [facility] for a pre-surgical H&P. The patient [...] Medical History: Diagnosis Date Cancer of prostate ([facility]) 2017 prostatectomy Diverticulitis Diverticulosis Fecal impaction ([facility]) Inflammation of sacroiliac joint ([facility]) Knee pain Low back pain Lumbar disc disorder Neurogenic claudication 12/17/2023 Osteoarthritis SBO (small bowel obstruction) ([facility]) 10/04/2023 Shingles UTI (urinary tract infection) Varicose veins of right lower extremity with pain 02/08/2020 Visual impairment 12/20/2023 PAST SURGICAL HISTORY: Past Surgical History: Procedure Laterality Date ABDOMINAL ADHESION SURGERY COLONOSCOPY COLONOSCOPY N/A 03/25/2023 Performed by Matt Campbell DO at [facility] HERNIA REPAIR Left inguinal HIP SURGERY [...] the most recent lab values available in [facility] at the time of the office visit. PAT labs are pending per surgeon. ASSESSMENT / DIAGNOSIS: Linked DX: Radiculopathy, lumbar region [M54.16] PLAN: Regan Green is scheduled for Linked Case Date: 12/25/2023 Linked Surgeon: Forrest Nolen MD Linked Surgery: Laminectomy Lumbar Multi Level / L2-L5. JOSEMANUEL Santoyo 12/20/23 1511 documented in this encounter [facility] 12-20-2023 Instructions Antonia Rosario RN - 12/20/2023 1:45 PM EST Your surgery/procedure is scheduled at [facility] on 12/25 at 2:45 Arrival Time 12:45 [facility] Address: [address] [place] [address] Park in [address] Parking lot located on [facility]. Report to the Entrance B. Check in at the information desk the surgery. The waiting room located on the second floor. If you have any questions prior to surgery, please call Pre-Admission Clinic at [phone] between 7:30 am and 4:30 pm Saturday through Saturday. If you have questions the morning of surgery, please call the Pre-op Department at [phone]. Notify your SURGEON if you develop any [...] would like to schedule therapy at a [facility] facility, please call [phone] ([phone]). Do not use lotions, creams, powders, perfume, make up, cologne or after-shaves day of surgery. Remove ALL jewelry including wedding rings, body piercings,hair extensions that contain metal, nail icelandic, make-up, and contact lens. You may brush [...] RIGHTS AND RESPONSIBILITIES As a patient at [facility], you have the right to: Receive medical care and be informed of who is taking care of you Be treated with dignity and respect Have a family member/employee's representative of choice and your physician notified of your admission Receive information and actively participate in decisions about your care and treatment Refuse care, treatment and services Decide who may provide your support and speak for you Access scientologist and spiritual services Participate in ethical issues [...] of hospital charges and payment methods Patient/patient employee's representative responsibilities are to: Provide information about [...] in clean clothes. documented in this encounter [facility] 12-18-2023 History of Present illness [...] 10/04/23 no acute pulmonary pathology JOSEMANUEL Jackson [facility] Contact via patient touch 12/21/23 6:10 AM To find out which ESTEFANY is on for the day please go to [employer] and use log in [employer] and search for PTH Neurosurgery (ESTEFANY and Phone Number is listed) JOSEMANUEL Daniels 12/25/23 7143 documented in this encounter [facility] 12-10-2023 Miscellaneous Notes Regan calls [...] would have to speak with Dr. Nolen plastic surgery coordinator about surgery. Patient transferred to Dr. Nolen plastic surgery coordinator. documented in this encounter [facility] 12-10-2023 Telephone encounter Note Regan [...] would have to speak with Dr. Nolen plastic surgery coordinator about surgery. Patient transferred to Dr. Nolen plastic surgery coordinator. [facility] 11-27-2023 Miscellaneous Notes Kenneth left [...] pain or ineffectiveness. documented in this encounter [facility] 11-27-2023 Telephone encounter Note Kenneth left a message to ask how many physical therapy visits he should try to complete before scheduling surgery. [facility] 11-27-2023 Telephone encounter Note Left message for Kenneth to let him know at least six visits usually show good effort but if these are unsuccessful he needs to make sure the physical therapist is documenting increase of pain or ineffectiveness. [facility] 11-14-2023 History of Present illness Narrative Images from the original note were not included. [facility] [address] [place] [address], [address] [place] [address] * CHART NOTE ? 11/14/2023 Patient: Regan Green 1950 [id number] Nurse Practitioner: Carl Sosa CNP Physician: Mayco [...] He was seen by [facility] in [place], but was advised they could no longer help. He has not had any interventional pain procedures, but was seen at [facility] in [place], [place], but was advised he should be seen here first. Patient's imaging was discussed and reviewed to their understanding in office today. Patient has not yet exhausted all conservative measures of treatment and is agreeable to them namely CHANTELLE. Denies loss of retail service specialist strength, saddle anesthesia, urinary or bowel dysfunction, [...] Right achilles 2+ Left achilles 2+ Right retail service specialist 2+ Left retail service specialist 2+ Right Mack reflex absent and left [...] visible abscess or suspicious gas within the gqcvr-ts-oing Close clinical follow-up and short-term progress repeat [...] but was seen at [facility] in [place], [place], but was advised he should be [...] record of the patient encounter. Inadvertent computerized customer service supervisor errors related to syntax, spelling, homophones, and/or inaudibility may be present. Scribe Statement: Scribed for and in the presence of JOSEMANUEL Kirk by Joshua Higginbotham. JOSEMANUEL Kirk 11/14/23 1630 documented [facility] this encounter [facility]-14-2023 Instructions AINSLEY Szymanski - 11/14/2023 9:30 AM EST Patient was seen by Dr. Nolen and JOSEMANUEL Chappell Patient was given an order for an x ray Lumbar spine Flex/Ext Medrol pack Physical therapy Referral for Lumbar to PT services Pain management referral for Lumbar L3-4 Patient will follow up after Pain management JA documented [facility] this encounter [facility] 11-05-2023 Miscellaneous Notes ED Outreach This documentation is being used for Transition of Care purposes: Yes/No: Yes ED Outreach Date: November 05, 2023 ED Outreach Method: COMMUNICATION METHOD: Telephone ED Outreach Attempt: first ED Outreach Outcome: Contacted Patient Name of ED Facility: [facility] Date of ED Discharge: 10/31/2023 Discharge Diagnosis: [...] with additional concerns. documented in this encounter [employer] 11-05-2023 Telephone encounter Note ED Outreach This documentation is being used for Transition of Care purposes: Yes/No: Yes ED Outreach Date: November 05, 2023 ED Outreach Method: COMMUNICATION METHOD: Telephone ED Outreach Attempt: first ED Outreach Outcome: Contacted Patient Name of ED Facility: [facility] Date of ED Discharge: 10/31/2023 Discharge Diagnosis: [...] will contact the office with additional concerns. [employer] 10-30-2023 Evaluation note Encounter Date Diagnosis Assessment [...] pain of right shoulder (ICD-10 - M25.511) [employer] Other 12-19-2023 NoteCT LUMBAR SPINE WO CONT [...] abscess or suspicious gas visible within the gflao-we-ncfp. Repeat contrast abdominal pelvic CT may prove useful in combination with colonic screening with appropriate Probable parapelvic cysts in the left kidney Prominent vascular calcifications There is some metal artifact related to a prior surgery at the left acetabular region. There are also clips in the low pelvis as seen on the durability technician image Sagittal images include from the [...] visible abscess or suspicious gas within the fzhyx-to-lqzp Close clinical follow-up and short-term progress repeat abdominal pelvic contrast CT and colonic screening considered There is also be severe degenerative change of the lumbar spine and relatively severe canal and neural foraminal stenosis probably greatest at L3-4 and L4-5 levels There is no compression deformity or destructive bone process Finalized by Renaldo Tinajero MD on 10/22/2023 1:09 [facility] 08-20-2023 Evaluation note* Encounter Date [...] pain of right shoulder (ICD-10 - M25.511) [employer] Other 09-19-2023 Evaluation note* Encounter Date Diagnosis [...] pain of right shoulder (ICD-10 - M25.511) [employer] Other 08-21-2023 Evaluation note* Encounter Date Diagnosis [...] pain of right shoulder (ICD-10 - M25.511) [employer] Other 07-18-2023 Evaluation note* Encounter Date Diagnosis [...] given order for occupational therapy and braces [employer] Other 05-16-2023 NoteCONSULTATION CONSULTATION DATE: 03/19/2023 TO: [...] our patients to inform us about any mogn-mro-nivfurt medications or herbal remedies/nutritional supplements/alternative remedies. 2. [...] treatment options with their primary care provider.[id number] Note CONSULTATION PROCEDURE DATE: 02/21/2023 PROCEDURE: Right [...] removed. He was discharged after meeting criteriaThe [facility] [id number] NoteCONSULTATION CONSULTATION DATE: 12/18/2022 CHIEF COMPLAINT: Left [...] like to proceed. CC: Sumanth Hill M.D.[facility] [id number] NoteCONSULTATION PROCEDURE DATE: 12/18/2022 PREOPERATIVE DIAGNOSIS: Osteoarthritis [...] will be followed up in the office.[facility] [id number] NoteCONSULTATION CONSULTATION DATE: 11/22/2022 HISTORY OF PRESENT [...] food. We will send a referral to [facility] to have his left CMC joint evaluated. Patient does agree with this, and we will follow him up in the clinic in three months' time.[facility] [id number] NotePROCEDURE: XR HAND LT MIN 3V HISTORY: [...] Electronically authenticated by: ALESSANDRO MEJIA Date: 2022-09-26 22:39[facility]11-17-2022 NoteCONSULTATION CONSULTATION DATE: 09/20/2022 HISTORY OF PRESENT [...] mg t.i.d., Percocet 5/325 b.i.d., multivitamin and Ewaxl-Pz-Vvxk. Patient, procedure-holloway, had radiofrequency ablation of his [...] to the clinic thereafter for follow up.[facility] [id number] NoteCONSULTATION CONSULTATION DATE: 08/02/2022 HISTORY OF PRESENT [...] lately, carrying heavy feed bags into the [place] for hunting season. He knows he is [...] of care and all questions were answered.[facility] [id number] NoteCONSULTATION CONSULTATION DATE: 06/14/2022 This is a [...] and Achilles reflexes are +2. DIAGNOSIS: Code [facility] is 724.6. PLAN: We will authorize for a left SI joint injection, refill his Percocet 5/325 b.i.d. and refill Diclofenac 50 mg t.i.d. He is compliant with his vitamin regimen. At this time, I reiterated the use of heat and stretches. The patient will be followed in the clinic post-procedure and agrees to move forward.[facility] HospitalEvaluation noteNo assessment information available [facility] Work Phone: Evaluation note* Diagnosis Lumbar radiculopathy, chronic- Primary documented in this encounter [facility]* Diagnosis Neurogenic claudication- Primary Spinal stenosis of lumbar region Lumbar radiculopathy, chronic documented in this encounter [facility]* Diagnosis Radiculopathy, lumbar region Thoracic [...] of lumbar region documented in this encounter [facility]* Diagnosis Radiculopathy, lumbar region- Primary Thoracic or lumbosacral neuritis or radiculitis, unspecified Radiculopathy, lumbar region Thoracic or lumbosacral neuritis or radiculitis, unspecified Neurogenic claudication Spinal stenosis of lumbar region Neurogenic claudication Spinal stenosis of lumbar region documented in this encounter [facility]* Diagnosis Onset Date Resolution Status Left hand pain acute 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, left hand acute [facility] Work Phone: Evaluation note* Diagnosis Onset Date Resolution Status Left hand pain acute 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, left hand acute Left hand pain acute 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, left hand acute [facility] Work Phone: Evaluation note* Diagnosis Routine general medical examination at a health care facility- Primary Lumbar radiculopathy, chronic Spondylolisthesis of lumbar region Pure hypercholesterolemia Adenocarcinoma of prostate ([facility]) Malignant neoplasm of prostate documented in this encounter [facility] SystemHistory general Narrative - Reported* Type Description Date Medical History post knee right replacement Surgical History knee replacement right Surgical History hernia Surgical History prostatectomy Surgical History acetabulum fx Hospitalization History see above Talko Other InstructionsNot on filedocumented in this encounter [...] Lumbar radiculopathy, chronic Defrance, Sumanth Borges MD [address] [place] [address] Mayco Nolen MD [address] [facility] [address] [place] [address] Referral ID Status Reason Start Date Expiration Date Visits Requested Visits Authorized [id number] Pending Review Specialty Services Required 11/05/2023 11/04/2024 1 1 TAZZ NetworksReason for referral (narrative)* Consultation (Routine) - Pending Review Specialty Diagnoses / Procedures Referred By Gaston t Referred To Contact Pain Medicine Diagnoses Lumbar radiculopathy, chronic Neurogenic claudication Carl Sosa APRN-CNP [address] [facility] [address] [place] [address] [address] Referral ID Status Reason Start Date Expiration Date V isits Requested Visits Authorized [id number] Pending Review 11/14/2023 11/13/2024 1 1 * Physical Therapy (Routine) - Pending Review Specialty Diagnoses / Procedures Referred By Gaston borges Referred To Contact Rehabilitation Diagnoses Lumbar radiculopathy, chronic Neurogenic claudication Carl Sosa APRN-CNP [address] [facility] [address] [place] [address] [facility] [address] [place] [phone] Referral ID Status Reason Start Date Expiration Date Visits Requested Visits Authorized [id number] Pending Review Specialty Services Required 11/14/2023 11/13/2024 1 1 [employer] Summary Purpose Family History No Family History [...] section and content) DATE CREATED AUTHOR 04/21/2018 [facility] DATE CREATED AUTHOR AUTHOR'S ORGANIZ ATION 02/25/2022 [facility] Specialist DATE CREATED AUTHOR AUTHOR'S ORGANIZ ATION 04/12/2023 [facility] DATE CREATED AUTHOR AUTHOR'S ORGANIZ ATION 11/27/2023 [facility] DATE CREATED AUTHOR AUTHOR'S ORGANIZ ATION 04/25/2024 [facility] DATE CREATED AUTHOR AUTHOR'S ORGANIZ ATION 06/05/2024 [facility] DATE CREATED AUTHOR AUTHOR'S ORGANIZ ATION 06/19/2024 [facility]ists EPIC DATE CREATED AUTHOR AUTHOR'S ORGANIZ ATION 07/04/2024 [facility] DATE CREATED AUTHOR AUTHOR'S ORGANIZ ATION 08/12/2024 [facility] DATE CREATED AUTHOR AUTHOR'S ORGANIZ ATION 08/26/2024 [facility] REASON FOR VISIT (unrecogniz ed section and content) Reason Onset Date Comments Er Follow-up 11/05/2023 Reason Comments New 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/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 films/no w/c/mailed pkt Specialty Diagnoses / Procedures Referred By Contac t Referred To Contact Neurosurgery Diagnoses Lumbar radiculopathy, chronic Sumanth Hill MD [address] [place] [address] Mayco Nolen MD [address] [place] [phone] Referral ID Status Reason Start Date Expiration Date Visits Requested Visits Authorized [id number] Pending Review Specialty Services Required 11/05/2023 11/04/2024 1 1 Reason Onset Date Comments surgery 12/10/2023 Reason Onset Date Comments surgery 12/24/2023 Specialty Diagnoses / Procedures Referred By Contac t Referred To Contact Referral ID Status Reason Start Date Expiration Date Visits Re quested Visits Authorized [id number] 1 1 Reason Comments Annual Exam Care [...] Charity Barkley MD Attending Provider Active Manager Social Services Relationship Specialty Start Date End Date Sumanth Hill MD [address] [place] [address] PCP - General Family Medicine 01/16/23 Manager Social Services Relationship Specialty Start Date End Date Sumanth Hill MD [address] [place] [address] PCP - General Family Medicine 01/16/23 Manager Social Services Relationship Specialty Start Date End Date Sumanth Hill MD [address] [place] [address] PCP - General Family Medicine 01/16/23 Manager Social Services Relationship Specialty Start Date End Date Sumanth Hill MD [address] [place] [address] PCP - General Family Medicine 01/16/23 Manager Social Services Relationship Specialty Start Date End Date Sumanth Hill MD [address] [place] [address] PCP - General Family Medicine 01/16/23 Manager Social Services Relationship Specialty Start Date End Date Sumanth Hill MD [address] [place] [address] PCP - General Family Medicine 01/16/23 Manager Social Services Relationship Specialty Start Date End Date Sumanth Hill MD [address] [place] [address] PCP - General Family Medicine 01/16/23 Manager Social Services Relationship Specialty Start Date End Date Sumanth Hill MD [address] [place] [address] PCP - General Family Medicine 01/16/23 Team [...] 22, 2024 End: May 22, 2024 Manager Social Services Relationship Specialty Start Date End Date Sumanth Peres PCP - General Family Medicine 12/17/14 Team Status: Inactive Member Role Status Dates NON STAFF Primary Care Provider Active Start: July 31, 2024 End: July 31, 2024 Charity Barkley MD Attending Provider Active Start: July 31, 2024 End: July 31, 2024 Manager Social Services Relationship Specialty Start Date End Date Sumanth Hill MD [address] [place] [address] PCP - General Family Medicine 01/16/23 Manager Social Services Relationship Specialty Start Date End Date Sumanth Hill MD [address] [place] [address] PCP - General Family Medicine 01/16/23 Goals [...] [id number] (Stop Bag - Provider: Michaelle Zeng, MIREILLE) [...] Vibha Saeed RN) lidocaine-EPINEPHrine (XYLOCAINE W/EPI) 1 %-1:761332 injection (CANCELED) As needed, Starting on Sat12/25/23 [...] or prosecute any alcohol or drug abuse patient.[facility] FOR RECORDS PERTAINING TO PATIENTS WHO [...] BE BASED ON THE PRIMARY CLINICAL RECORDS. [employer] provides no warranty or guarantee of the accuracy or completeness of information in this document.
[2024-09-07 07:03] VITALS: BP 126/88; PULSE 97; TEMP 36.3; O2SAT 96
[2024-09-07 07:34] VITALS: BP 140/89; PULSE 92; O2SAT 97
[2024-09-07 07:35] VITALS: BP 139/88; PULSE 93; O2SAT 94
[2024-09-07] MEDS: 0.9 % SODIUM CHLORIDE 10 ML SYRINGE - SALINE FLUSH INJ (07:36)
[2024-09-07] MEDS: IOHEXOL 240 MG/ML - 10 ML VIAL 24 MG INJ (07:36)
[2024-09-07] MEDS: BUPIVACAINE HCL 0.25% PF 25 MG/10 ML VIAL INJ (07:36)
[2024-09-07] MEDS: TRIAMCINOLONE ACETONIDE 40 MG/ML VIAL 80 MG INJ (07:37)
[2024-09-07] MEDS: LIDOCAINE HCL 2% 400 MG/20 ML MDV 3 ML INJ (07:37)
--- NOTE | 2024-09-07 07:40 | W.PM.PROCNOT ---
Date of procedure: 09/07/24 Pre-op diagnosis: Pain due to lumbar stenosis with neurogenic claudication Post-op diagnosis: same as pre-op Procedure: Procedure: Right L4-5, L5-S1 transforaminal epidural steroid injection Medications: Bupivacaine 0.25% 2cc, lidocaine 2% 1cc, kenalog 80mg The patient was seen and examined in the preoperative holding area.? Informed consent was obtained and placed on the chart.? Patient was brought to the medical procedure unit and placed in the prone position where a timeout was completed verifying the correct patient, procedure site, position, and planned special equipment using sterile aseptic technique.? Under direct fluoroscopic visualization a 25-gauge Quincke tipped spinal needle was advanced at level right L4-5 to the designated neural foramen where contrast dye was injected to show adequate spread.? There was no evidence of vascular or adverse uptake.? Epidural spread was appreciated.? The above-mentioned injectate was then placed in a 1.5 mL aliquot preceded by negative aspiration.? The needle was removed. The same procedure was completed at right L5-S1. ? Patient was taken to the postprocedural recovery area and monitored for an appropriate length of time before found suitable for discharge in the accompaniment of a responsible adult. Anesthesia: Local Surgeon: Rosales Corona Pathology: none sent Condition: stable Disposition: no change
== END 2024-09-07 07:58 | disposition home or self-care (01) ==
LOC: SURGOUT 06:44
PROVIDERS: PCP Family Medicine; Visit Provider Anesthesiology
DX: M48.062 Spinal stenosis, lumbar region with neurogenic claudication (principal)
CPT/HCPCS: 64483; 64484; J0665; J3301; Q9966

== ENCOUNTER 2024-09-16 08:23 | Outpatient (OUT) | payer MEDICARE, OTHER, SELFPAY ==
--- OUTSIDE RECORDS SUMMARY | 2024-09-16 08:30 | XMS_ITS | CCD ---
Author Organization [facility] Care Team Providers Care Head Tennis Professional Name Role Phone PHYSICIAN, DEFAULT Unavailable Unavailable [...] DR ROMERO Ruiz Attending Unavailable LAKSHMIPATHY ., NARENDRANCELIA Admitting Ceci vailable LAKSHMIPATHY ., NARENDYUMI Attending Ceci vailable HALKER ., MYLENE Consulting Unavailable DEFRANCE, DR JULIO Primary Care Unavailable SOSA ., DR ROMERO Ruiz Attending Unavailable SOSA ., DR ROMERO Ruiz Admitting Unavailable DEFRANCE, DR JULIO Primary Care Unavailable SOSA ., DR ROMERO Ruiz Consulting Unavailable SALMEORN ., ISELA Attending Unavailable SALMERON ., ISELA Admitting Unavailable DEFRANCE, DR JULIO Primary Care Unavailable ZIEBER, DR ALESSANDRO Gudino Consulting Unavailable SALMERON ., ISELA Consulting Unavailable SOSA ., DR ROMERO Ruiz Attending Unavailable SOSA ., DR ROMERO Ruiz Admitting Unavailable DEFRANCE, DR JULIO Primary Care Unavailable SALMERON ., ISELA Consulting Unavailable Charity Barkley Unavailable MD Charity Barkley Attending Provider [phone] NON STAFF Primary Care Provider UnavailSumanth Ivan MD Primary Care Provider CARL SOSA Referring Unavailable DEFRANCE, SUMANTH Borges Primary Care Unavailable MAYCO NOLEN Referring Unavailable DEFRANCE, SUMANTH Borges Primary Care Unavailable CARL SOSA Referring Unavailable DEFRANCE, SUMANTH Borges Primary Care Unavailable MAYCO NOLEN Referring Unavailable DEFRANCE, SUMANTH Borges Primary Care Unavailable MAYCO NOLEN Admitting Unavailable MAYCO NOLEN Attending Unavailable DEFRANCE, SUMANTH Borges Primary Care Unavailable MARIA M VÁSQUEZ Attending Unavailable DEFRANCE, SUMANTH Borges Primary Care Unavailable MAYCO NOLEN Attending Unavailable MAYCO NOLEN Referring Unavailable DEFRANCE, SUMANTH Borges Primary Care Unavailable NON STAFF Primary Care Unavailable Charity Barkley Attending Unavailable Charity Barkley Admitting Unavailable JESSICA REYES Attending Unavailable KING CLARK Attending Unavailable Sumanth Peres Primary Care Provider CARL SOSA Attending Unavailable DEFRANCE, SUMANTH Borges Referring Unavailable DEFRANCE, SUMANTH T Primary Care Unavailable REINMAYCO ASCENCIO Attending Unavailable DEFRANCE, SUMANTH Borges Referring Unavailable DEFRANCE, SUMANTH Borges Primary Care Unavailable DEFRANCE, SUMANTH Borges Referring Unavailable DEFRANCE, SUMANTH Borges Primary Care Unavailable CARL SOSA Attending Unavailable MINH HELLER Attending Unavailable DEFRANCE, SUMANTH Borges Referring Unavailable DEFRANCE, SUMANTH T Primary Care Unavailable DEFRANCE, SUMANTH T Referring Unavailable DEFRANCE, SUMANTH T Primary Care Unavailable CARL SOSA Attending Unavailable DEFRANCE, SUMANTH Borges Attending Unavailable DEFRANCE, SUMANTH Borges Referring Unavailable DEFRANCE, SUMANTH Borges Primary Care Unavailable DEFRANCE, SUMANTH Borges. Primary Care Unavailable DEFRANCE, SUMANTH T. Referring Unavailable DEFRANCE, SUMANTH Avina Primary Care Unavailable SOSA, CARL Referring Unavailable DEFRANCE, SUMANTH Borges. Primary Care Unavailable SOSA, CARL Referring Unavailable DEFRANCE, SUMANTH T. Primary Care Unavailable SOSA, CARL Referring Unavailable DEFRANCE, SUMANTH T. Primary Care Unavailable SOSA, CARL Referring Unavailable DEFRANCE, SUMANTH Borges. Primary Care Unavailable DEFRANCE, SUMANTH Borges. Primary Care Unavailable MAEVE COTA Attending Unavailable MAEVE COTA Referring Unavailable DEFRANCE, SUMANTH Avina Primary Care Unavailable SOSA, CARL Referring Unavailable DEFRANCE, SUMANTH Borges. Primary Care Unavailable SOSA, CARL Referring Unavailable DEFRANCE, SUMANTH Avina Primary Care Unavailable MAYCO NOLEN Referring Unavailable DEFRANCE, SUMANTH Borges. Primary Care Unavailable DEFRANCE, USMANTH Borges. Referring Unavailable DEFRANCE, SUMANTH Borges. Primary Care Unavailable MAYCO NOLEN Referring Unavailable DEFRANCE, SUMANTH Borges. Primary Care Unavailable DEFRANCE, SUMANTH Avina Referring Unavailable DEFRANCE, SUMANTH Avina Primary Care Unavailable Chloe DELUCA, Rosales Leon Attending Unavailable Chloe DELUCA, Rosales Leon Attending Unavailable [...] 2024 12:00am take 1 tablet by mk th once in the evening, then take 1-2 [...] take 2 tablets by mouth in the orning B-complex with vitamin C tablet Take [...] Discontinued docusate sodium 50 mg / sennosides, chcf 8.6 mg oral tablet (1 source) Start: [...] Administer over 2-5 minutes. polyethylene glycol 3350 82249 mg powder for oral solution (1 source) [...] Onset: 12-20-2023 Episodic Other aftercare (1 source) meterman (current) use of 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; Translations: [intermediate (current) use of 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] Onset: 12-20-2023 Episodic [...] 08-25-20 ABSOLUTE BASOPHIL 0.1 X10E9/L Normal 0.0-0.2 [facility] Comment on above: Performed By: #### T HYR, 31235-9, CMP, CBCA #### [facility] ([id number]) [address], [address] [place] [address] ABSOLUTE NEUTROPHIL 3.7 X10E9/L Normal 1.5-6.6 [facility] Comment on above: Performed By: #### T HYR, 23239-6, CMP, CBCA #### [facility] ([id number]) [address], [address] [place] [address] Basophils/100 WBC (Bld) 1.1 % Normal [facility] Comment on above: Performed By: #### T HYR, 00780-8, CMP, CBCA #### [facility] ([id number]) [address], [address] [place] [address] Eosinophils (Bld) [#/Vol] 0.2 10*3/uL Normal 0.0-0.4 [facility] Comment on above: Performed By: #### T MACIER, 55916-4, CMP, CBCA #### [facility] ([id number]) [address], [facility] [address] [place] [address] Eosinophils/100 WBC (Bld) 2.6 % Normal [facility] Comment on above: Performed By: #### T MACIER, 98727-1, CMP, CBCA #### [facility] ([id number]) [address], [facility] [address] [place] [address] Erythrocyte distribution width (RBC) [Ratio] 13.5 % Normal 11.5-15.0 [facility] Comment on above: Performed By: #### T NOE, 41647-4, CMP, CBCA #### [facility] ([id number]) [address], [facility] [address] [place] [address] Hematocrit (Bld) [Volume fraction] 44.7 % Normal 39-49 [facility] Comment on above: Performed By: #### T MACIER, 56464-5, CMP, CBCA #### [facility] ([id number]) [address], [facility] [address] [place] [address] Hemoglobin (Bld) [Mass/Vol] 15.0 g/dL Normal 13.0-17.0 [facility] Comment on above: Performed By: #### T HYR, 48137-7, CMP, CBCA #### [facility] ([id number]) [address] [address] Lymphocytes (Bld) [#/Vol] 1.5 10*3/uL Normal 1.0-3.5 [facility] Comment on above: Performed By: #### T HYR, 07000-7, CMP, CBCA #### [facility] ([id number]) [address], [address] [place] [address] Lymphocytes/100 WBC (Bld) 23.5 % Normal [facility] Comment on above: Performed By: #### T HYR, 74831-1, CMP, CBCA #### [facility] ([id number]) [address], [facility] [address] [place] [address] MCH (RBC) [Entitic mass] 32.1 pg Normal 27-34 [facility] Comment on above: Performed By: #### T HYR, 48136-1, CMP, CBCA #### [facility] ([id number]) [address] [address] [place] [address] MCHC (RBC) [Mass/Vol] 33.6 g/dL Normal 32-36 [facility] Comment on above: Performed By: #### T HYR, 26726-7, CMP, CBCA #### [facility] ([id number]) [address], [facility] [address] [place] [address] MCV (RBC) [Entitic vol] 96 fL Normal 80-100 [facility] Comment on above: Performed By: #### T HYR, 01017-6, CMP, CBCA #### [facility] ([id number]) [address] [address] [place] [address] Monocytes (Bld) [#/Vol] 0.8 10*3/uL Normal 0-0.9 [facility] Comment on above: Performed By: #### T HYR, 39000-4, CMP, CBCA #### [facility] ([id number]) [address] [address] [place] [address] Monocytes/100 WBC (Bld) 13.1 % Normal [facility] Comment on above: Performed By: #### T HYR, 97034-7, CMP, CBCA #### [facility] ([id number]) [address], [address] [place] [address] Neutrophils/100 WBC (Bld) 59.7 % Normal [facility] Comment on above: Performed By: #### T ONE, 21527-3, CMP, CBCA #### [facility] ([id number]) [address], [address] [place] [address] Platelet mean volume (Bld) [Entitic vol] 7.5 fL Normal 7-12 [facility] Comment on above: Performed By: #### T NOE, 20176-2, CMP, CBCA #### [facility] ([id number]) [address], [address] [place] [address] Platelets (Bld) [#/Vol] 246 10*3/uL Normal 150-450 [facility] Comment on above: Performed By: #### Morales LIU, 63861-5, CMP, CBCA #### [facility] ([id number]) [address], [address] [place] [address] RBC COUNT 4.68 X10E12/L Normal 4.10-5.70 [facility] Comment on above: Performed By: #### T NOE, 66243-9, CMP, CBCA #### [facility] ([id number]) [address], [address] [place] [address] WBC (Bld) [#/Vol] 6.2 10*3/uL Normal 4.0-11.0 [facility] Comment on above: Performed By: #### T MACIER, 84151-1, CMP, CBCA #### [facility] ([id number]) [address], [address] [place] [address] COMPREHENSIVE METABOLIC PANE Sandoval 08-25-2024 Albumin [Mass/Vol] 4.6 g/dL Normal 3.2-5.3 [facility] Comment on above: Performed By: #### T NOE, 83127-2, CMP, CBCA #### [facility] ([id number]) [address], [address] [place] [address] ALP [Catalytic activity/Vol] 77 U/L Normal 39-130 [facility] Comment on above: Performed By: #### T MACIER, 97748-7, CMP, CBCA #### [facility] ([id number]) [address], [address] [place] [address] ALT [Catalytic activity/Vol] 36 U/L Normal 0-40 [facility] Comment on above: Performed By: #### T HYR, 51369-9, CMP, CBCA #### [facility] ([id number]) [address], [address] [place] [address] Anion gap [Moles/Vol] 11 mmol/L Normal 5-15 [facility] Comment on above: Performed By: #### T NOE, 51535-9, CMP, CBCA #### [facility] ([id number]) [address], [address] [place] [address] AST [Catalytic activity/Vol] 31 U/L Normal 0-41 [facility] Comment on above: Performed By: #### T MACIER, 81539-8, CMP, CBCA #### [facility] ([id number]) [address], [address] [place] [address] Bilirubin [Mass/Vol] 0.5 mg/dL Normal 0.3-1.2 [facility] Comment on above: Performed By: #### T HYR, 52589-4, CMP, CBCA #### [facility] ([id number]) [address], [address] [place] [address] Calcium [Mass/Vol] 9.3 mg/dL Normal 8.5-10.5 [facility] Comment on above: Performed By: #### T HYR, 81765-7, CMP, CBCA #### [facility] ([id number]) [address], [address] [place] [address] Chloride [Moles/Vol] 104 mmol/L Normal 98-109 [facility] Comment on above: Performed By: #### Morales LIU, 39843-0, CMP, CBCA #### [facility] ([id number]) [address], [address] [place] [address] CO2 [Moles/Vol] 27 mmol/L Normal 22-32 [facility] Comment on above: Performed By: #### Morales LIU, 30897-7, CMP, CBCA #### [facility] ([id number]) [address] [address] [place] [address] Creatinine [Mass/Vol] 0.68 mg/dL Normal 0.60-1.30 [facility] Comment on above: Result Comment: METH OD TRACEABLE TO IDMS STANDARD Performed By: #### Morales LIU, 63757-2, CMP, CBCA #### [facility] ([id number]) [address] [address] [place] [address] eGFR (CKD-EPI) NON-RACE DEPENDENT >90 Normal >59 [facility] Comment on above: Result Comment: Reported eGFR is based on the CKD-EPI 2020 equation that does not use a race coefficient. Performed By: #### Morales LIU, 13926-0, CMP, CBCA #### [facility] ([id number]) [address], [address] [place] [address] Glucose [Mass/Vol] 84 mg/dL Normal 65-99 [facility] Comment on above: Performed By: #### Morales LIU, 17424-4, CMP, CBCA #### [facility] ([id number]) [address], [address] [place] [address] Potassium [Moles/Vol] 5.0 mmol/L Normal 3.5-5.0 [facility] Comment on above: Performed By: #### Morales LIU, 01140-7, CMP, CBCA #### [facility] ([id number]) [address], [address] [place] [address] Protein [Mass/Vol] 7.2 g/dL Normal 6.0-8.0 [facility] Comment on above: Performed By: #### Morales LIU, 61174-3, CMP, CBCA #### [facility] ([id number]) [address], [address] [place] [address] Sodium [Moles/Vol] 142 mmol/L Normal 134-146 [facility] Comment on above: Performed By: #### Morales LIU, 89865-9, CMP, CBCA #### [facility] ([id number]) [address], [address] [place] [address] Urea nitrogen [Mass/Vol] 15 mg/dL Normal 5-27 [facility] Comment on above: Performed By: #### Morales LIU, 32626-9, CMP, CBCA #### [facility] ([id number]) [address], [address] [place] [address] Lipid 1996 panelon 4 Cholesterol [Mass/Vol] 191 mg/dL Normal 150-200 [facility] Comment on above: Performed By: #### Morales LIU, 71186-2, CMP, CBCA #### [facility] ([id number]) [address], [address] [place] [address] Cholesterol in HDL [Mass/Vol] 54 mg/dL Normal >39 [facility] Comment on above: Result Comment: HDL <40 mg/dL - High Risk HDL > or = 40mg/dL- Desirable HDL >60 mg/dL - Negative Risk Performed By: #### Morales LIU, 85015-0, CMP, CBCA #### [facility] ([id number]) [address], [address] [place] [address] Cholesterol in LDL [Mass/Vol] 127 mg/dL Normal <130 [facility] Comment on above: Result Comment: LDL <100 mg/dL - Desirable LDL >160 mg/dL - High Risk Performed By: #### T HYR, 09927-0, CMP, CBCA #### [facility] ([id number]) [address], [facility] [address] [place] [address] Cholesterol in VLDL [Mass/Vol] 10 mg/dL Normal 0-30 [facility] Comment on above: Performed By: #### T HYR, 02174-8, CMP, CBCA #### [facility] ([id number]) [address], [address] [place] [address] CHOLESTEROL:HDL 3.5 Normal 1.0-5.0 [facility] Comment on above: Performed By: #### T HYR, 02590-6, CMP, CBCA #### [facility] ([id number]) [address], [facility] [address] [place] [address] Triglyceride [Mass/Vol] 50 mg/dL Normal 27-150 [facility] Comment on above: Performed By: #### T HYR, 86141-3, CMP, CBCA #### [facility] ([id number]) [address], [address] [place] [address] THYROID PROFILEon 08-25-2024 Free T4 [Mass/Vol] 0.93 ng/dL Normal 0.61-1.60 [facility] Comment on above: Performed By: #### T HYR, 82816-7, CMP, CBCA #### [facility] ([id number]) [address] [place] [address] TSH 6.45 uIU/mL High 0.49-4.67 [facility] Comment on above: Performed By: #### T HYR, 72222-8, CMP, CBCA #### [facility] ([id number]) [address], [address] [place] [address] Prostate specific Ag [Mass/V ol]on 04-28-2024 PROSTATIC SPEC ANT <0.01 Normal 0.00-4.00 [facility] Comment on above: Result Comment: The method used for this test is Deejay Vizibility DXI chemiluminescent immunoassay. Values obtained by different assay methods cannot be used interchangeably. Performed By: #### 2 857-1 #### [facility] ([id number]) [address], [address] [place] [address] XR SPINE LUMBAR 2 OR 3 VWSon [...] Granados MD on 04/24/2024 2:36 PM Normal [facility] MR LUMBAR SPINE WO CONTon MR [...] Matt Matute on 04/22/2024 2:10 PM Normal [facility] XR SPINE LUMB BENDING ONLY 2 [...] Menjivar MD on 02/13/2024 2:22 PM Normal [facility] BASIC METABOLIC PANLon 12-27 Anion gap [Moles/Vol] 8 mmol/L Normal 5-15 [facility] Comment on above: Performed By: #### C TIP PÉREZ, 62032-7, 86746-3 ####[facility] ([id number])[address], [address] [place] [address] Calcium [Mass/Vol] 9.2 mg/dL Normal 8.5-10.5 [facility] Comment on above: Performed By: #### C ELISA BMP, 63590-3, 80519-2 ####[facility] ([id number])[address], [address], [place] [address] Chloride [Moles/Vol] 103 mmol/L Normal 98-109 [facility] Comment on above: Performed By: #### C ELISA BMP, , 78607-7 ####[facility] ([id number])[address] [address] CO2 [Moles/Vol] 28 mmol/L Normal 22-32 [facility] Comment on above: Performed By: #### C BC, BMP, , 95878-6 ####[facility] ([id number])[address] [address] [address] Creatinine [Mass/Vol] 0.77 mg/dL Normal 0.60-1.30 [facility] Comment on above: Result Comment: METH OD TRACEABLE TO IDMS STANDARD Performed By: #### C BC, BMP, , 04496-1 ####[facility] ([id number])[address] [address], [place] [address] eGFR (CKD-EPI) NON-RACE DEPENDENT >90 Normal >59 [facility] Comment on above: Result Comment: Reported eGFR is based on the CKD-EPI 2020 equation that does not use a race coefficient. Performed By: #### Sujey BC, BMP, , 63661-3 ####[facility] ([id number])[address] [address] [address] Glucose [Mass/Vol] 110 mg/dL High 65-99 [facility] Comment on above: Performed By: #### C BC, BMP, , 66312-8 ####[facility] ([id number])[address] [address], [place] [address] Potassium [Moles/Vol] 4.3 mmol/L Normal 3.5-5.0 [facility] Comment on above: Performed By: #### C BC, BMP, , 64850-6 ####[facility] ([id number])[address] [address], [place] [address] Sodium [Moles/Vol] 139 mmol/L Normal 134-146 [facility] Comment on above: Performed By: #### C BC, BMP, , 64724-0 ####[facility] ([id number])[address] [address] [place] [address] Urea nitrogen [Mass/Vol] 14 mg/dL Normal 5-27 [facility] Comment on above: Performed By: #### C , [facility], 42897-8, 76534-7 ####[facility] ([id number])[address] [address] [place] [address] Basic Metabolic Panelon 12-06 Anion gap [Moles/Vol] 8 mmol/L 5 - 15 mmol/L [facility] Calcium [Mass/Vol] 9.2 mg/dL 8.5 - 10. 5 mg/dL [facility] Chloride [Moles/Vol] 103 mmol/L 98 - 109 mmol/L [facility] CO2 [Moles/Vol] 28 mmol/L 22 - 32 mmol/L [facility] Creatinine [Mass/Vol] 0.77 mg/dL 0.60 - 1.30 mg/dL [facility] Comment on above: METHOD TRACEABLE TO IDMN STANDARD eGFR (CKD-EPI)non-race dependent - PINF [facility] Comment on above: Reported eGFR is based on the CKD-EPI 2020 equation that does not use a race coefficient. Glucose [Mass/Vol] 110 mg/dL High 65 - 99 mg/dL [facility] Interpretation and review of laboratory results Abnormal [facility] Potassium [Moles/Vol] 4.3 mmol/L 3.5 - 5.0 mmol/L [facility] Sodium [Moles/Vol] 139 mmol/L 134 - 146 mmol/L [facility] Urea nitrogen [Mass/Vol] 14 mg/dL 5 - 27 mg/dL [facility] CBC without diffon Erythrocyte distribution width (RBC) [Ratio] 13.3 % 11.5 - 15.0 % [facility] Hematocrit (Bld) [Volume fraction] 36.3 % Low 39 - 49 % [facility] Hemoglobin (Bld) [Mass/Vol] 12.4 g/dL Low 13.0 - 17.0 g/dL [facility] Interpretation and review of laboratory results Abnormal [facility] MCH (RBC) [Entitic mass] 30.2 pg 27 - 34 pg [facility] MCHC (RBC) [Mass/Vol] 34.2 g/dL 32 - 36 g/dL [facility] MCV (RBC) [Entitic vol] 88 fL 80 - 100 fL [facility] Platelet mean volume (Bld) [Entitic vol] 7.2 fL 7 - 12 fL [facility] Platelets (Bld) [#/Vol] 243 10*3/uL [facility] RBC (Bld) [#/Vol] 4.12 10*6/uL [facility] WBC corrected for nucl RBC Auto (Bld) [#/Vol] 11.6 [facility] COMPLETE BLOOD COUNTon 12-27 Erythrocyte distribution width (RBC) [Ratio] 13.3 % Normal 11.5-15.0 [facility] Comment on above: Performed By: #### C ELISA BMP, , 44479-6 ####[facility] ([id number])[address], [address] [place] [address] Hematocrit (Bld) [Volume fraction] 36.3 % Low 39-49 [facility] Comment on above: Performed By: #### Sujey PÉREZ, BMP, , 09181-2 ####[facility] ([id number])[address], [address] [place] [address] Hemoglobin (Bld) [Mass/Vol] 12.4 g/dL Low 13.0-17.0 [facility] Comment on above: Performed By: #### Sujey BC, BMP, , 99267-5 ####[facility] ([id number])[address], [address] [place] [address] MCH (RBC) [Entitic mass] 30.2 pg Normal 27-34 [facility] Comment on above: Performed By: #### Sujey BC, BMP, , 99191-6 ####[facility] ([id number])[address] [place] [address] MCHC (RBC) [Mass/Vol] 34.2 g/dL Normal 32-36 [facility] Comment on above: Performed By: #### C BC, BMP, , 93730-8 ####[facility] ([id number])[address], [place] [address] MCV (RBC) [Entitic vol] 88 fL Normal 80-100 [facility] Comment on above: Performed By: #### C BC, BMP, , 38479-8 ####[facility] ([id number])[address], [place] [address] Platelet mean volume (Bld) [Entitic vol] 7.2 fL Normal 7-12 [facility] Comment on above: Performed By: #### Sujey BC, BMP, , 98755-2 ####[facility] ([id number])[address], [address], [place] [address] Platelets (Bld) [#/Vol] 243 10*3/uL Normal 150-450 [facility] Comment on above: Performed By: #### Sujey BC, BMP, , 96216-5 ####[facility] ([id number])[address], [address] [place] [address] RBC COUNT 4.12 X10E12/L Normal 4.10-5.70 [facility] Comment on above: Performed By: #### Sujey BC, BMP, , 94926-0 ####[facility] ([id number])[address], [address] [place] [address] WBC (Bld) [#/Vol] 11.6 10*3/uL High 4.0-11.0 [facility] Comment on above: Performed By: #### Sujey BC, BMP, , 74599-1 ####[facility] ([id number])[address] [facility], [address] [place] [address] ECG 12 leadon 12-27-2023 TRACEMASTERVUE [facility] Glucose Glucometer (BldC) [M ass/Vol]on 12-27-2023 Glucose [Mass/Vol] 98 mg/dL 65 - 99 mg/dL [facility] Glucose [Mass/Vol] 98 mg/dL Normal 65-99 [facility] MAGNESIUMon 12-27-2023 Magnesium [Mass/Vol] 1.9 mg/dL Normal 1.8-2.6 [facility] Comment on above: Performed By: #### TIP CADET, 36890-1, 28873-9 ####[facility] ([id number])[address] [facility], [address] [place] [address] Magnesiumon 12-27-2023 Magnesium [Mass/Vol] 1.9 mg/dL 1.8 - 2.6 mg/dL [facility] No Panel Informationon 12-27 [facility] TROPONIN Ion 12-27-2023 Troponin I.cardiac [Mass/Vol] ng/mL Normal 0.00-0.04 [facility] Comment on above: Performed By: #### TIP CADET, , 10245-3 ####[facility] ([id number])[address] [facility], [address] [place] [address] Troponin Ion 12-27-2023 Troponin I.cardiac [Mass/Vol] ng/mL 0.00 - 0.04 ng/mL [facility] Troponin I.cardiac [Mass/Vol ]on 12-27-2023 [facility] BASIC METABOLIC PANLon 12-26 Anion gap [Moles/Vol] 9 mmol/L Normal 5-15 [facility] Comment on above: Performed By: #### Sujey PÉREZ BMP #### [facility] ([id number]) [address] [facility], [address] [place] [address] Calcium [Mass/Vol] 9.4 mg/dL Normal 8.5-10.5 [facility] Comment on above: Performed By: #### C ELISA, BMP #### [facility] ([id number]) [address], [address] [place] [address] Chloride [Moles/Vol] 106 mmol/L Normal 98-109 [facility] Comment on above: Performed By: #### C ELISA, BMP #### [facility] ([id number]) [address], [address] [place] [address] CO2 [Moles/Vol] 25 mmol/L Normal 22-32 [facility] Comment on above: Performed By: #### C ELISA, BMP #### [facility] ([id number]) [address], [address] [place] [address] Creatinine [Mass/Vol] 0.63 mg/dL Normal 0.60-1.30 [facility] Comment on above: Result Comment: METH OD TRACEABLE TO IDMS STANDARD Performed By: #### C ELIAS, BMP #### [facility] ([id number]) [address], [address] [place] [address] eGFR (CKD-EPI) NON-RACE DEPENDENT >90 Normal >59 [facility] Comment on above: Result Comment: Reported eGFR is based on the CKD-EPI 2020 equation that does not use a race coefficient. Performed By: #### C ELISA, BMP #### [facility] ([id number]) [address], [address] [place] [address] Glucose [Mass/Vol] 140 mg/dL High 65-99 [facility] Comment on above: Performed By: #### C ELISA, BMP #### [facility] ([id number]) [address], [address] [place] [address] Potassium [Moles/Vol] 4.6 mmol/L Normal 3.5-5.0 [facility] Comment on above: Performed By: #### C ELISA, BMP #### [facility] ([id number]) [address], [address] [place] [address] Sodium [Moles/Vol] 140 mmol/L Normal 134-146 [facility] Comment on above: Performed By: #### C BC, BMP #### [facility] ([id number]) [address], [address] [place] [address] Urea nitrogen [Mass/Vol] 17 mg/dL Normal 5-27 [facility] Comment on above: Performed By: #### C BC, BMP #### [facility] ([id number]) [address], [address] [place] [address] Basic Metabolic Panelon 12-06 Anion gap [Moles/Vol] 9 mmol/L 5 - 15 mmol/L [facility] Calcium [Mass/Vol] 9.4 mg/dL 8.5 - 10. 5 mg/dL [facility] Chloride [Moles/Vol] 106 mmol/L 98 - 109 mmol/L [facility] CO2 [Moles/Vol] 25 mmol/L 22 - 32 mmol/L [facility] Creatinine [Mass/Vol] 0.63 mg/dL 0.60 - 1.30 mg/dL [facility] Comment on above: METHOD TRACEABLE TO IDMN STANDARD eGFR (CKD-EPI)non-race dependent - PINF [facility] Comment on above: Reported eGFR is based on the CKD-EPI 2020 equation that does not use a race coefficient. Glucose [Mass/Vol] 140 mg/dL High 65 - 99 mg/dL [facility] Interpretation and review of laboratory results Abnormal [facility] Potassium [Moles/Vol] 4.6 mmol/L 3.5 - 5.0 mmol/L [facility] Sodium [Moles/Vol] 140 mmol/L 134 - 146 mmol/L [facility] Urea nitrogen [Mass/Vol] 17 mg/dL 5 - 27 mg/dL [facility] CBC without diffon Erythrocyte distribution width (RBC) [Ratio] 13.5 % 11.5 - 15.0 % [facility] Hematocrit (Bld) [Volume fraction] 37.5 % Low 39 - 49 % [facility] Hemoglobin (Bld) [Mass/Vol] 12.7 g/dL Low 13.0 - 17.0 g/dL [facility] Interpretation and review of laboratory results Abnormal [facility] MCH (RBC) [Entitic mass] 30.0 pg 27 - 34 pg [facility] MCHC (RBC) [Mass/Vol] 33.9 g/dL 32 - 36 g/dL [facility] MCV (RBC) [Entitic vol] 89 fL 80 - 100 fL [facility] Platelet mean volume (Bld) [Entitic vol] 7.2 fL 7 - 12 fL [facility] Platelets (Bld) [#/Vol] 264 10*3/uL [facility] RBC (Bld) [#/Vol] 4.23 10*6/uL [facility] WBC corrected for nucl RBC Auto (Bld) [#/Vol] 12.6 High [facility] COMPLETE BLOOD COUNTon 12-26 Erythrocyte distribution width (RBC) [Ratio] 13.5 % Normal 11.5-15.0 [facility] Comment on above: Performed By: #### C ELISA, BMP #### [facility] ([id number]) [address], [address] [place] [address] Hematocrit (Bld) [Volume fraction] 37.5 % Low 39-49 [facility] Comment on above: Performed By: #### C ELISA, BMP #### [facility] ([id number]) [address], [address] [place] [address] Hemoglobin (Bld) [Mass/Vol] 12.7 g/dL Low 13.0-17.0 [facility] Comment on above: Performed By: #### Sujey PÉREZ, BMP #### [facility] ([id number]) [address], [address] [place] [address] MCH (RBC) [Entitic mass] 30.0 pg Normal 27-34 [facility] Comment on above: Performed By: #### C ELISA, BMP #### [facility] ([id number]) [address], [address] [place] [address] MCHC (RBC) [Mass/Vol] 33.9 g/dL Normal 32-36 [facility] Comment on above: Performed By: #### C ELISA, BMP #### [facility] ([id number]) [address], [address] [place] [address] MCV (RBC) [Entitic vol] 89 fL Normal 80-100 [facility] Comment on above: Performed By: #### Sujey PÉREZ, BMP #### [facility] ([id number]) [address], [address] [place] [address] Platelet mean volume (Bld) [Entitic vol] 7.2 fL Normal 7-12 [facility] Comment on above: Performed By: #### Sujey PÉREZ, BMP #### [facility] ([id number]) [address], [address] [place] [address] Platelets (Bld) [#/Vol] 264 10*3/uL Normal 150-450 [facility] Comment on above: Performed By: #### Sujey PÉREZ, BMP #### [facility] ([id number]) [address], [address] [place] [address] RBC COUNT 4.23 X10E12/L Normal 4.10-5.70 [facility] Comment on above: Performed By: #### C ELISA, BMP #### [facility] ([id number]) [address], [address] [place] [address] WBC (Bld) [#/Vol] 12.6 10*3/uL High 4.0-11.0 [facility] Comment on above: Performed By: #### Sujey PÉREZ, BMP #### [facility] ([id number]) [address], [address] [place] [address] ABO Rh Repeaton 12-25-2023 ABO AB [facility] [...] Miguel Avelar on 12/25/2023 4:51 PM Normal [facility] RF Guidance for injection of Spine [...] José Miguel Avelar on 12/25/2023 4:51 PM [facility] [employer] [facility] Radiology Study observation (narrative) [facility] [employer] [facility] RF Guidance for injection of Spine facet jointOrdered By: José Miguel Avelar on 12-25-[address] [facility] Work Phone: Bacteria identified Cx Nom ( U)on 12-21-2023 Service comment (Unsp spec) [Interp] <10,000 ORGANISMS/ML NORMAL URO GENITAL CORINA [facility] ABO Rh Repeaton 12-20-2023 ABO AB [facility] Rh Nom (Bld) Positive [facility] APTTon 12-20-2023 aPTT Coag (PPP) [Time] 31 s [facility] BASIC METABOLIC PANLon 12-20 Anion gap [Moles/Vol] 13 mmol/L Normal 5-15 [facility] Comment on above: Performed By: #### C BCA, PINR, 00010-1, BMP #### [facility] ([id number]) [address], [address] [place] [address] Calcium [Mass/Vol] 10.1 mg/dL Normal 8.5-10.5 [facility] Comment on above: Performed By: #### C BCA, PINR, 57095-8, BMP #### [facility] ([id number]) [address] [place] [address] Chloride [Moles/Vol] 103 mmol/L Normal 98-109 [facility] Comment on above: Performed By: #### C BCA, PINR, 84723-7, BMP #### [facility] ([id number]) [address], [address] [place] [address] CO2 [Moles/Vol] 25 mmol/L Normal 22-32 [facility] Comment on above: Performed By: #### C BCA, PINR, 40743-2, BMP #### [facility] ([id number]) [address], [address] [place] [address] Creatinine [Mass/Vol] 0.76 mg/dL Normal 0.60-1.30 [facility] Comment on above: Result Comment: METH OD TRACEABLE TO IDMS STANDARD Performed By: #### C BCA, PINR, 71418-2, BMP #### [facility] ([id number]) [address], [address] [place] [address] eGFR (CKD-EPI) NON-RACE DEPENDENT >90 Normal >59 [facility] Comment on above: Result Comment: Reported eGFR is based on the CKD-EPI 2020 equation that does not use a race coefficient. Performed By: #### C BCA, PINR, 00723-9, BMP #### [facility] ([id number]) [address], [address] [place] [address] Glucose [Mass/Vol] 85 mg/dL Normal 65-99 [facility] Comment on above: Performed By: #### C ALEN, PINR, 79377-0, BMP #### [facility] ([id number]) [address], [address] [place] [address] Potassium [Moles/Vol] 5.0 mmol/L Normal 3.5-5.0 [facility] Comment on above: Result Comment: SPEC IMEN HEMOLYZED, RESULTS INCREASED MODERATELY HEMOLYZED Performed By: #### C BCA, PINR, 66723-8, BMP #### [facility] ([id number]) [address], [address] [place] [address] Sodium [Moles/Vol] 141 mmol/L Normal 134-146 [facility] Comment on above: Performed By: #### C BCA, PINR, 22952-0, BMP #### [facility] ([id number]) [address], [address] [place] [address] Urea nitrogen [Mass/Vol] 20 mg/dL Normal 5-27 [facility] Comment on above: Performed By: #### C BCA, PINR, 50027-8, BMP #### [facility] ([id number]) [address], [address] [place] [address] Basic Metabolic Panelon 12-05 Anion gap [Moles/Vol] 13 mmol/L 5 - 15 mmol/L [facility] Calcium [Mass/Vol] 10.1 mg/dL 8.5 - 10. 5 mg/dL [facility] Chloride [Moles/Vol] 103 mmol/L 98 - 109 mmol/L [facility] CO2 [Moles/Vol] 25 mmol/L 22 - 32 mmol/L [facility] Creatinine [Mass/Vol] 0.76 mg/dL 0.60 - 1.30 mg/dL [facility] Comment on above: METHOD TRACEABLE TO IDMN STANDARD eGFR (CKD-EPI)non-race dependent - PINF [facility] Comment on above: Reported eGFR is based on the CKD-EPI 2020 equation that does not use a race coefficient. Glucose [Mass/Vol] 85 mg/dL 65 - 99 mg/dL [facility] Potassium [Moles/Vol] 5.0 mmol/L 3.5 - 5.0 mmol/L [facility] Comment on above: SPECIMEN HEMOLYZED, RESULTS INCREASED MODERATELY HEMOLYZED Sodium [Moles/Vol] 141 mmol/L 134 - 146 mmol/L [facility] Urea nitrogen [Mass/Vol] 20 mg/dL 5 - 27 mg/dL [facility] CBC AND AUTO DIFFon 12-20-19 24 ABSOLUTE BASOPHIL 0.1 X10E9/L Normal 0.0-0.2 [facility] Comment on above: Performed By: #### C ALEN, PINR, 40139-5, BMP #### [facility] ([id number]) [address], [address] [place] [address] ABSOLUTE NEUTROPHIL 4.4 X10E9/L Normal 1.5-6.6 [facility] Comment on above: Performed By: #### C BCA PINR, 69901-7, BMP #### [facility] ([id number]) [address], [facility] [address] [place] [address] Basophils/100 WBC (Bld) 0.9 % Normal [facility] Comment on above: Performed By: #### C BCA, PINR, 98817-3, BMP #### [facility] ([id number]) [address], [address] [place] [address] Eosinophils (Bld) [#/Vol] 0.2 10*3/uL Normal 0.0-0.4 [facility] Comment on above: Performed By: #### C ALEN, PINR, 29273-5, BMP #### [facility] ([id number]) [address], [facility] [address] [place] [address] Eosinophils/100 WBC (Bld) 2.6 % Normal [facility] Comment on above: Performed By: #### C ALEN, PINR, 77227-0, BMP #### [facility] ([id number]) [address], [facility] [address] [place] [address] Erythrocyte distribution width (RBC) [Ratio] 13.6 % Normal 11.5-15.0 [facility] Comment on above: Performed By: #### C ALEN, PINR, 47273-9, BMP #### [facility] ([id number]) [address], [facility] [address] [place] [address] Hematocrit (Bld) [Volume fraction] 45.1 % Normal 39-49 [facility] Comment on above: Performed By: #### C ALEN, PINR, 80922-7, BMP #### [facility] ([id number]) [address], [facility] [address] [place] [address] Hemoglobin (Bld) [Mass/Vol] 15.5 g/dL Normal 13.0-17.0 [facility] Comment on above: Performed By: #### C BCA, PINR, 87889-0, BMP #### [facility] ([id number]) [address] [address] [place] [address] Lymphocytes (Bld) [#/Vol] 1.5 10*3/uL Normal 1.0-3.5 [facility] Comment on above: Performed By: #### C ALEN, PINR, 25525-2, BMP #### [facility] ([id number]) [address], [address] [place] [address] Lymphocytes/100 WBC (Bld) 21.7 % Normal [facility] Comment on above: Performed By: #### Sujey LOWRY, PINR, 56377-2, BMP #### [facility] ([id number]) [address], [address] [place] [address] MCH (RBC) [Entitic mass] 30.2 pg Normal 27-34 [facility] Comment on above: Performed By: #### C ALEN, PINR, 96618-2, BMP #### [facility] ([id number]) [address], [facility] [address] [place] [address] MCHC (RBC) [Mass/Vol] 34.4 g/dL Normal 32-36 [facility] Comment on above: Performed By: #### Sujey LOWRY, PINR, 93790-6, BMP #### [facility] ([id number]) [address], [address] [place] [address] MCV (RBC) [Entitic vol] 88 fL Normal 80-100 [facility] Comment on above: Performed By: #### Sujey LOWRY, PINR, 47904-8, BMP #### [facility] ([id number]) [address], [facility] [address] [place] [address] Monocytes (Bld) [#/Vol] 1.0 10*3/uL High 0-0.9 [facility] Comment on above: Performed By: #### C BCA, PINR, 86074-0, BMP #### [facility] ([id number]) [address], [facility] [address] [place] [address] Monocytes/100 WBC (Bld) 13.6 % Normal [facility] Comment on above: Performed By: #### Sujey LOWRY, PINR, 52309-7, BMP #### [facility] ([id number]) [address], [address] [place] [address] Neutrophils/100 WBC (Bld) 61.2 % Normal [facility] Comment on above: Performed By: #### BUCKY Rm BCA, 35654-6, BMP #### [facility] ([id number]) [address], [facility] [address] [place] [address] Platelet mean volume (Bld) [Entitic vol] 7.8 fL Normal 7-12 [facility] Comment on above: Performed By: #### Sujey LOWRY PINR, 85054-4, BMP #### [facility] ([id number]) [address], [address] [address] Platelets (Bld) [#/Vol] 269 10*3/uL Normal 150-450 [facility] Comment on above: Performed By: #### BUCKY Rm BCA, 79329-2, BMP #### [facility] ([id number]) [address], [address] [address] RBC COUNT 5.12 X10E12/L Normal 4.10-5.70 [facility] Comment on above: Performed By: #### Sujey LOWRY, PINR, 83263-3, BMP #### [facility] ([id number]) [address] [address] WBC (Bld) [#/Vol] 7.1 10*3/uL Normal 4.0-11.0 [facility] Comment on above: Performed By: #### MEG Rm BCAR, 28036-0, BMP #### [facility] ([id number]) [address] [address] CBC auto differentialon 12-05 Basophils (Bld) [#/Vol] 0.1 10*3/uL [facility] Basophils/100 WBC (Bld) 0.9 % [facility] Eosinophils (Bld) [#/Vol] 0.2 10*3/uL [facility] Eosinophils/100 WBC (Bld) 2.6 % [facility] Erythrocyte distribution width (RBC) [Ratio] 13.6 % 11.5 - 15.0 % [facility] Hematocrit (Bld) [Volume fraction] 45.1 % 39 - 49 % [facility] Hemoglobin (Bld) [Mass/Vol] 15.5 g/dL 13.0 - 17.0 g/dL [facility] Interpretation and review of laboratory results Abnormal [facility] Lymphocytes (Bld) [#/Vol] 1.5 10*3/uL [facility] Lymphocytes/100 WBC (Bld) 21.7 % [facility] MCH (RBC) [Entitic mass] 30.2 pg 27 - 34 pg [facility] MCHC (RBC) [Mass/Vol] 34.4 g/dL 32 - 36 g/dL [facility] MCV (RBC) [Entitic vol] 88 fL 80 - 100 fL [facility] Monocytes (Bld) [#/Vol] 1.0 10*3/uL High [facility] Monocytes/100 WBC (Bld) 13.6 % [facility] Neutrophils (Bld) [#/Vol] 4.4 10*3/uL [facility] Neutrophils/100 WBC (Bld) 61.2 % [facility] Platelet mean volume (Bld) [Entitic vol] 7.8 fL 7 - 12 fL [facility] Platelets (Bld) [#/Vol] 269 10*3/uL [facility] RBC (Bld) [#/Vol] 5.12 10*6/uL [facility] WBC corrected for nucl RBC Auto (Bld) [#/Vol] 7.1 [facility] No Panel Informationon 12-20 [facility] PROTIME AND INRon 12-20-2023 INR Coag (PPP) [Relative time] 1.0 {INR} Normal 0.8-1.1 [facility] Comment on above: Performed By: #### C ALEN, PINR, 38213-2, BMP #### [facility] ([id number]) [address] [place] [address] PT Coag (PPP) [Time] 11.3 s Normal 9.8-13.2 [facility] Comment on above: Performed By: #### C BCA, PINR, 55063-8, BMP #### [facility] ([id number]) [address], [address] [place] [address] Protime & INRon 12-20-2023 INR Coag (PPP) [Relative time] 1.0 {INR} [facility] PT Coag (PPP) [Time] 11.3 s [facility] Type and screenon 12-20-[address] [facility] Rh Nom (Bld) Positive [facility] URINALYSISon 12-20-2023 Bilirubin Ql (U) Negative Normal NEG [facility] BLOOD/HGB Negative Normal NEG [facility] Color (U) YELLOW Normal YELLOW [facility] Glucose Ql (U) Negative Normal NEG [facility] Ketones Ql (U) Negative Normal NEG [facility] Leukocyte esterase Test strip Ql (U) Negative Normal NEG [facility] MUCOUS PRESENT Abnormal NONE [facility] Nitrite Ql (U) Negative Normal NEG [facility] pH (U) 6.0 [pH] Normal 5.0-8.5 [facility] Protein Ql (U) Trace Abnormal NEG [facility] R.B.CELLS 2 /hpf Normal 0-5 [facility] Specific gravity (U) [Rel density] 1.026 Normal 1.003-1.035 [facility] TURBIDITY CLEAR Normal CLEAR [facility] Urobilinogen (U) [Mass/Vol] mg/dL Normal <1.1 [facility] W.B.CELLS 2 /hpf Normal 0-5 [facility] URINE CULTUREon 12-20-2023 Bacteria identified Cx Nom (U) CULTURE RESULTS <10,000 ORGANISMS/ML NORMAL URO GENITAL CORINA Normal [facility] Comment on above: Performed By: #### 6 30-4 #### [facility] ([id number]) [address] [place] [address] Urinalysison 12-20-2023 Bilirubin Ql (U) Negative Negative^Ne ga tive [facility] Color (U) YELLOW YELLOW^YELLOW [facility]alt System Glucose (U) [Mass/Vol] Negative Negative^Nega tive mg/dL [facility] Hemoglobin Auto test strip Ql (U) Negative Negative^Nega tive [facility] Interpretation and review of laboratory results Abnormal [facility] Ketones (U) [Mass/Vol] Negative Negative^Nega tive mg/dL [facility] Leukocyte esterase Auto test strip Ql (U) Negative Negative^Nega tive [facility] Mucus Ql (Urine sed) PRESENT Abnormal NONE^NONE [facility] Nitrite Auto test strip Ql (U) Negative Negative^Nega tive [facility] pH (U) 6.0 [pH] 5.0 - 8.5 [facility] Protein (U) [Mass/Vol] Trace Abnormal Negative^Nega tive mg/dL [facility] RBC Auto (Urine sed) [#/Area] 2 [facility] Specific gravity Refractometry automated (U) [Rel density] 1.026 1.003 - 1.035 [facility] Turbidity Ql (U) CLEAR CLEAR^CLEAR [facility] Urobilinogen Qn (U) NINF [facility] WBC Auto (Urine sed) [#/Area] 2 [facility] aPTT Coag (PPP) [Time]on aPTT Coag (Bld) [Time] 31 s Normal 26-37 [facility] Comment on above: Performed By: #### C ALEN, PINR, [id number], BMP #### [facility] ([id number]) [address], [address] [place] [address] XR SPINE LUMB BENDING ONLY 2 -3 [...] Morrell MD on 11/16/2023 8:57 PM Normal [facility] MR LUMBAR SPINE WO CONTon MR [...] Shaggy Ortega MD on 11/01/2023 10:24 AM [facility] XR shoulder RT min 2V*on XR shoulder RT min 2V* [facility] Main [place] [address] [place] [address] XRay Report Signed Patient: Regan Green MR#: [id number] 65 : 1950 Acct:[id number] Age/Sex: 73 / M ADM Date: 06/24/23 Loc: [facility] Room: Type: [facility] Attending Dr: Charity Barkley MD Copies [...] Artie Goldsmith M.D.06/24/2023 12:37 PM Dictation Location: [place] [address] Transcribed By: ELIZABETH 06/24/23 1237 Dictated By: Artie Goldsmith DO 06/24/23 1236 Signed By: 06/24/23 1237 Normal [facility] Covid-19 PCR ([facility])on SARS-CoV-2 (COVID-19) RNA YASMIN+probe Ql (Unsp spec) Not detected Normal NOT DETECTED [facility] Comment on above: Result Comment: This test is not yet approved or cleared by the [place] FDA. When there are no FDA-approved or cleared tests available, and other criteria are met, FDA can make tests available under an emergency access mechanism called an Emergency Use Authorization (EUA). The EUA for this test is supported by the [employer] Mechan[employer] of Health and Human Service's (HHS's) declaration [...] SARS-CoV-2. Performed By: #### C [facility] #### [facility] [address] [place] [address] Dr. 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 Location: 84Patient Status: OVisit #: [id number] Date: 04/16/2018 9:20:00 AMCompleted Date: 04/16/2018 09:18 AMRequesting Provider: BILLY KILLIAN Attending Provider: BILLY KILLIAN Report Copy To: Signs & Symptoms: M46.1 Sacroiliitis, not elsewhere classified [id number]: AthenaComments: , , , Ordering Provider - BILLY KILLIAN MD , Exam: PELVIS 1 OR 2 VWSAccession #: [id number] PELVIS 1 OR 2 VWS 04/16/2018 9:18 [...] fracture Electronically signed by:Lea Le. Transcribed by: [email or web address], User Resident: Electronically Signed by: LEA LE @ 04/16/2018 10:35 AM Normal [facility] Comment on above: Order Comment: , , = ========= , Ordering Provider - BILLY KILLIAN MD , Vital Signs Date Time Vital Sign Value Performing Clinician Facility 08-11-2024 09:120400 Body height 182.9 cm Sumanth Hill MD Work Phone: [facility] [employer] [facility] 08-11-2024 09:120400 Body mass index (BMI) [Ratio] 30.04 kg/m2 Sumanth Hill MD Work Phone: [facility] 08-11-2024 09:120400 Body temperature 96.8 [degF] Sumanth Hill MD Work Phone: [facility] [employer] [facility] 08-11-2024 09:120400 Body weight 100.47 kg Sumanth Hill MD Work Phone: [facility] [employer] [facility] 08-11-2024 09:12-0400 Diastolic blood pressure 82 mm[Hg] Sumanth Hill MD Work Phone: [facility] [employer] [facility] 08-11-2024 09:12-0400 Systolic blood pressure 134 mm[Hg] Sumanth Hill MD Work Phone: [facility] 12-27-2023 11:46-0500 Body temperature 98.29 [degF] Myaco Nolen MD Work Phone: [facility] 12-27-2023 11:46-0500 Diastolic blood pressure 77 mm[Hg] Mayco Nolen MD Work Phone: [facility] 12-27-2023 11:46-0500 Heart rate 84 /min Mayco Nolen MD Work Phone: [facility] 12-27-2023 11:46-0500 Respiratory rate 14 /min Mayco Nolen MD Work Phone: [facility] 12-27-2023 11:46-0500 Systolic blood pressure 127 mm[Hg] Mayco Nolen MD Work Phone: [facility] 12-27-2023 04:23-0500 SaO2% (BldA) [Mass fraction] 94 % Mayco Nolen MD Work Phone: [facility] 12-25-2023 22:54-0500 Body mass index (BMI) [Ratio] 28.76 kg/m2 Mayco Nolen MD Work Phone: [facility] 12-25-2023 22:54-0500 Body weight 96.2 kg Mayco Nolen MD Work Phone: [facility] 12-25-2023 13:27-0500 Body height 182.9 cm Mayco Nolen MD Work Phone: [facility] 12-20-2023 14:20-0500 Body height 182.9 cm [facility] 12-20-2023 14:20-0500 Body mass index (BMI) [Ratio] 29.39 kg/m2 [facility] 12-20-2023 14:20-0500 Body temperature 97.7 [degF] [facility] 12-20-2023 14:20-0500 Body weight 98.3 kg [facility] 12-20-2023 14:20-0500 Diastolic blood pressure 84 mm[Hg] [facility] 12-20-2023 14:20-0500 Heart rate 77 /min [facility] 12-20-2023 14:20-0500 Respiratory rate 18 /min [facility] 12-20-2023 14:20-0500 SaO2% (BldA) [Mass fraction] 97 % [facility] 12-20-2023 14:20-0500 Systolic blood pressure 132 mm[Hg] [facility] 11-14-2023 09:59-0500 Body height 180.3 cm Carl Sosa 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 Work Phone: [facility] 11-14-2023 09:59-0500 Body mass index (BMI) [Ratio] 29.57 kg/m2 Carlpadilla Sosa 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 Work Phone: [facility] 11-14-2023 09:59-0500 Body weight 96.16 kg Carlpadilla Sosa 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 Work Phone: [facility] 11-14-2023 09:59-0500 Diastolic blood pressure 86 mm[Hg] Carl Sosa 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 Work Phone: [facility] 11-14-2023 09:59-0500 Heart rate 81 /min Carl Sosa 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 Work Phone: [facility] 11-14-2023 09:59-0500 Systolic blood pressure 135 mm[Hg] Carl Sosa 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 Work Phone: [facility] 05-21-2023 10:00-0400 Body height 182.88 cm Charity Barkley Other [employer] Other 05-21-2023 10:00-0400 Body mass index (BMI) [Ratio] 30.51 kg/m2 Charity Barkley Other [employer] Other 05-21-2023 10:00-0400 Body weight 102.06 kg Charity Barkley Other [employer] Other Encounters Encounter Date Encounter Type Care Provider Facility Start: 09-07-2024 End: 09-07-2024 ambulatory Rosales Corona MD Facility:[facility] Start: 08-26-2024 End: 08-26-2024 Orders Only Sumanth Hill MD Work Phone: [facility] Start: 08-25-2024 End: 08-25-2024 ambulatory [facility] Start: 08-11-2024 End: 08-11-2024 ambulatory [facility] [place] [facility] Start: 08-11-2024 Encounter for genera l adult medical examination without abnormal findings [facility] Start: 08-11-2024 End: 08-11-2024 Patient encounter procedure [facility] Comment on above: Routine general medi farida examination at a health care facility (Primary Dx); Lumbar radiculopathy, chronic; Spondylolisthesis of lumbar region; Pure hypercholesterolemia; Adenocarcinoma of prostate ([facility]) Start: 08-11-2024 End: 08-11-2024 Patient encounter status Sumanth Hill MD Work Phone: [facility] Work Phone: Start: 07-31-2024 End: 07-31-2024 ambulatory [facility] Work Phone: Start: 07-31-2024 End: 07-31-2024 Patient encounter procedure [facility] Work Phone: Start: 07-01-2024 End: 07-03-2024 Chart abstracting Unk Pcp (Hist) Neurology Start: 06-18-2024 End: 06-18-2024 ambulatory KING CLARK Not Available Start: 06-04-2024 End: 06-04-2024 ambulatory SUMANTH Morales [facility] Start: 06-02-2024 End: 06-02-2024 ambulatory JESSICA REYES Not Available Start: 05-22-2024 End: 05-22-2024 ambulatory [facility] Work Phone: Start: 05-22-2024 End: 05-22-2024 Patient encounter procedure [facility] Work Phone: Start: 05-12-2024 End: 06-04-2024 ambulatory [facility] Start: 04-28-2024 End: 04-28-2024 ambulatory MINH Leigha [facility] Start: 04-27-2024 End: 05-04-2024 ambulatory [facility] Start: 04-23-2024 End: 04-23-2024 ambulatory [facility] Start: 04-23-2024 End: 04-23-2024 ambulatory [facility] Start: 04-21-2024 End: 04-21-2024 ambulatory [facility] Start: 04-06-2024 End: 05-04-2024 ambulatory [facility] Start: 03-04-2024 End: 04-04-2024 ambulatory [facility] Start: 02-14-2024 End: 03-04-2024 ambulatory [facility] Start: 02-12-2024 End: 02-12-2024 ambulatory [facility] Start: 01-29-2024 End: 01-29-2024 ambulatory [facility] Work Phone: Start: 01-29-2024 End: 01-29-2024 Patient encounter procedure [facility] Work Phone: Start: 12-28-2023 End: 12-28-2023 ambulatory MARIA M VÁSQUEZ [facility] Start: 12-25-2023 End: 12-28-2023 ambulatory LEPANTO Sarah [facility] Start: 12-25-2023 End: 12-27-2023 ambulatory [facility] Start: 12-25-2023 End: 12-27-2023 Subsequent hospital visit by physician Mayco Nolen MD Work Phone: [facility] Comment on above: Radiculopathy, lumba r region; Neurogenic claudication Start: 12-24-2023 Telephone encounter [facility] Comment on above: surgery Start: 12-20-2023 Telephone encounter Hoda Rm MA [facility] Start: 12-20-2023 End: 12-20-2023 Patient encounter procedure [facility] [address] [facility] Comment on above: Radiculopathy, lumba r region; Neurogenic claudication; Monitoring for anticoagulant use; Abnormal urine findings Start: 12-20-2023 End: 12-20-2023 ambulatory [facility] Start: 12-18-2023 Documentation procedure Jasmin Noriega 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 Work Phone: [facility] Start: 12-10-2023 Telephone encounter Myrtle Hatch LPN [facility] Comment on above: surgery Start: 12-05-2023 End: 01-03-2024 ambulatory [facility] Start: 11-27-2023 Telephone encounter Ella [facility] Start: 11-22-2023 End: 12-05-2023 ambulatory [facility] Start: 11-18-2023 End: 11-18-2023 ambulatory Rosales Corona MD Facility:[facility] Start: 11-14-2023 End: 11-14-2023 ambulatory CARL SOSA [facility] Start: 11-14-2023 End: 11-14-2023 Office outpatient new 45 minutes Carl Sosa 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 Work Phone: [facility] Comment on above: Neurogenic claudicat ion (Primary Dx); Lumbar radiculopathy, chronic Start: 11-14-2023 End: 11-14-2023 ambulatory [facility] Start: 11-05-2023 Telephone encounter Dolores Rm MA [facility] Comment on above: Er Follow-up Lumbar radiculopathy , chronic (Primary Dx) Start: 11-01-2023 End: 11-01-2023 ambulatory [facility] Start: 10-31-2023 End: 10-31-2023 Emergency department patient visit [facility] Start: 10-30-2023 End: 10-30-2023 ambulatory Charity Calvey Other [employer] Other Start: 10-30-2023 Office outpatient vi sit 15 minutes Charity Calvey [facility] Start: 10-22-2023 End: 10-23-2023 Emergency department patient visit MAEVE HICKMANKATHLEEN [facility] Start: 08-20-2023 End: 08-20-2023 ambulatory Charity Calvey Other [employer] Other Start: 08-20-2023 Office outpatient vi sit 15 minutes Charity Calvey [facility] Start: 07-23-2023 End: 07-23-2023 ambulatory Charity Calvey Other [employer] Other Start: 07-23-2023 Office outpatient vi sit 15 minutes Charity Calvey [facility] Start: 06-24-2023 Office outpatient vi sit 15 minutes Charity Calvey [facility] Start: 06-24-2023 End: 06-24-2023 Patient encounter procedure MD Charity Barkley Work Phone: [facility] Start: 06-24-2023 End: 06-24-2023 ambulatory NON STAFF [facility] Work Phone: Start: 05-21-2023 Office outpatient ne w 30 minutes Charity Barkley [facility] Start: 05-21-2023 End: 05-21-2023 ambulatory MD Charity Barkley Work Phone: [facility] Work Phone: Start: 05-21-2023 End: 05-21-2023 Patient encounter procedure MD Charity Barkley Work Phone: [facility] Start: 03-19-2023 End: 03-20-2023 ambulatory NARENDRANATH LAKSHMIPATHY . Facility:[facility] Start: 02-21-2023 End: 02-22-2023 ambulatory NARENDRANATH LAKSHMIPATHY . Facility:[facility] Start: 12-18-2022 End: 12-19-[address] ROMERO SOSA . Facility:[facility] Start: 11-22-2022 End: 11-23-[address] ROMERO SOSA . Facility:[facility] Start: 10-11-2022 Encounter for preprocedural laboratory examination DR ROMERO SOSA . [facility] Start: 10-09-2022 End: 10-09-[address] ROMERO SOSA . Facility:[facility] Start: 10-05-2022 End: 10-06-[address] ROMERO SOSA . Facility:[facility] Start: 10-05-2022 End: 10-06-2022 Encounter for preprocedural laboratory examination DR ROMERO SOSA . Facility:[facility] Start: 10-01-2022 Encounter for preprocedural cardiovascular examination ISELA SALMERON . [facility] Start: 09-26-2022 End: 09-27-2022 ambulatory ISELA SALMERON . Facility:[facility] Start: 09-26-2022 End: 09-27-2022 Encounter for preprocedural cardiovascular examination ISELA SALMERON . Facility:[facility] Start: 09-20-2022 End: 09-21-[address] ROMERO SOSA . Facility: Start: 08-02-2022 End: 08-03-[address] ROMERO SOSA . Facility: Start: 07-17-2022 End: 07-17-[address] ROMERO SOSA . Facility: Start: 06-14-2022 End: 06-15-[address] ROMERO SOSA . Facility: Start: 04-16-2018 End: 04-17-2018 Ambulatory BILLY KILLIAN Facility:[facility] Start: 01-28-2018 End: 01-29-2018 Ambulatory DEFAULT PHYSICIAN Facility:[facility] Procedures Date Procedure Procedure Detail Performing Clinician Start: 08-11-2024 Adult depression scr eening assessment Sumanth Hill MD Work Phone: Start: 04-23-2024 Follow-up visit Follow-up MAYCO NOLEN Start: 12-27-2023 Ecg routine ecg w/le ast 12 lds trcg only w/o i&r Christina Varma 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 Work Phone: Start: 12-27-2023 End: 12-27-2023 Basic metabolic panel calcium total Christina Varma 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 Work Phone: Start: 12-26-2023 Basic metabolic pane l calcium total Christina Varma 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 Work Phone: Start: 12-25-2023 Fluor needle/cath spine/paraspinal [...] Adult depression scr eening assessment Dolores Anderson [employer] SALES REPRESENTATIVE Start: 06-24-2023 Plain X-ray of right shoulder MD Charity Barkley Work Phone: Start: 05-21-2023 Plain X-ray of left hand MD Charity Barkley Work Phone: Start: 03-25-2023 Colonoscopy Unk (Hist) Plan of Treatment Date Care Activity Detail Author Start: 07-30-2028 Lipid panel Lipid Screening [facility] Start: 12-27-2026 Diabetes Screening Diabetes Screening [facility] Start: 08-18-2025 End: 08-18-2025 Patient encounter procedure 08/18/2025 8:00 AM EDT Office Visit [facility] [address] [place] [phone] [facility] Start: 08-11-2025 Adult BMI Screening Adult BMI Screening [facility] Start: 08-11-2025 Depression Screening Depression Screening [facility] Start: 08-11-2025 Fall Risk Screening Fall Risk Screening [facility] Start: 08-11-2025 Medicare Annual Wellness Visit Medicare Annual Wellness Visit [facility] Start: 08-11-2025 Tobacco Screening Tobacco Screening [facility] Start: 06-04-2025 Tobacco Screening Tobacco Screening [facility] Start: 12-25-2024 Adult BMI Screening Adult BMI Screening [facility] Start: 12-25-2024 Tobacco Screening Tobacco Screening [facility] Start: 12-20-2024 Adult BMI Screening Adult BMI Screening [facility] Start: 12-20-2024 Tobacco Screening Tobacco Screening [facility] Start: 11-14-2024 Adult BMI Screening Adult BMI Screening [facility] Start: 11-14-2024 Tobacco Screening Tobacco Screening [facility] Start: 10-31-2024 Tobacco Screening Tobacco Screening [facility] Start: 10-23-2024 Fall Risk Screening Fall Risk Screening [facility] Start: 10-22-2024 Adult BMI Screening Adult BMI Screening [facility] Start: 08-11-2024 End: 08-11-2025 CBC W Auto Differential panel - Blood CBC auto differential Lab Routine Pure hypercholesterolemia Expected: 08/11/2024, Expires: 08/11/2025 [facility] Work Phone: Comment on above: Expected: 08/11/2024, Expires: Start: 08-11-2024 End: 08-11-2025 Comprehensive metabolic 2000 panel - Serum or Plasma Comprehensive metabolic panel Lab Routine Pure hypercholesterolemia Expected: 08/11/2024, Expires: 08/11/2025 [facility] Comment on above: Expected: 08/11/2024, Expires: Start: 08-11-2024 End: 08-11-2025 Lipid 1996 panel - Serum or Plasma Lipid profile Lab Routine Pure hypercholesterolemia Expected: 08/11/2024, Expires: 08/11/2025 [facility] Comment on above: Expected: 08/11/2024, Expires: Start: 08-11-2024 End: 08-11-2025 Thyroid profile includes TSH FT4 Thyroid profile includes TSH FT4 Lab Routine Pure hypercholesterolemia Expected: 08/11/2024, Expires: 08/11/2025 [facility] Comment on above: Expected: 08/11/2024, Expires: Start: 08-11-2024 End: 08-11-2024 Patient encounter procedure 08/11/2024 9:00 AM EDT Office Visit [facility] [address] [place] [phone] Sumanth Hill MD [address] [place] [phone] [facility] Start: 07-30-2024 End: 07-30-2024 Patient encounter procedure 07/30/2024 8:30 AM EDT Office Visit [facility] [address] [place] [address] Sumanth Hill MD [address] [place], [place] [phone] [facility] Start: 07-29-2024 Depression Screening Depression Screening [facility] Start: 07-29-2024 Medicare Annual Wellness Visit Medicare Annual Wellness Visit [facility] Start: 07-05-2024 COVID-19 Vaccine () COVID-19 Vaccine () [facility] Start: 07-05-2024 Influenza vaccination Influenza Vaccine (#1) [facility] Start: 04-21-2024 End: 04-21-2024 Patient encounter procedure 04/21/2024 1:45 PM EDT Office Visit [facility] [address] [place] [address] [place] [address] Minh Heller MD [address] [place] [phone] [facility] Start: 03-25-2024 Screening for malignant neoplasm of colon [facility] Start: 02-13-2024 End: 02-13-2024 Patient encounter procedure 02/13/2024 1:50 PM EDT Office Visit [facility] [address] [place] [phone] Mayco Nolen MD [address] [place] [address] [address] [place] [address] [facility] Start: 12-25-2023 End: 12-25-2023 Admission to same day surgery center 12/25/2023 2:45 PM EST - 12/25/2023 4:45 PM EST Surgery [facility] [address] [place] [address] [phone] Mayco Nolen MD [address] [place] [address] [address] [place] [address] LAMINECTOMY LUMBAR MULTI LEVEL / L2-L5 [facility] Comment on above: LAMINECTOMY LUMBAR MULTI LEVEL / L2-L5 Start: 12-25-2023 End: 12-25-2023 LAMINECTOMY LUMBAR MULTI LEVEL [facility] Start: 12-25-2023 Subsequent hospital visit by physician 12/25/2023 2:45 PM EST Hospital Encounter [facility] [address] [place] [phone] Mayco Nolen MD [address] [place] [address] [address] [place] [address] [facility] Start: 12-06-2023 End: 12-06-2023 Patient encounter procedure 12/06/2023 7:00 AM EST Appointment [facility] [address] [place] [phone] [facility] Start: 11-14-2023 End: 11-14-2024 XR Lumbar spine Views AP W right bending and W left bending [facility] Work Phone: Comment on above: Expected: 11/14/2023, Expires: Start: 11-04-2023 Advance Directive Discussion Advance Directive Discussion [facility] Start: 07-05-2023 Covid-19 Vaccine ( season) Covid-19 Vaccine () [facility] Start: 07-05-2023 COVID-19 Vaccine ( season) COVID-19 Vaccine () [facility] Start: 2017 Abdominal aortic aneurysm screening Abdominal Aortic Aneurysm (AAA) Screen [facility] Start: 07-24-2013 Administration of varicella zoster vaccine Zoster (Shingles) Vaccine (1 of 2) [facility] Start: 07-24-2013 Shingrix Vaccine (2 of 3) Shingrix Vaccine (2 of 3) [facility] Start: 2012 RSV Vaccine (1 - 1-dose 60+ series) RSV Vaccine (1 - 1-dose 60+ series) [facility] Start: 1997 Screening for malignant neoplasm of colon [facility] Start: 1971 DTaP,Tdap and Td Vaccines (1 - Tdap) DTaP,Tdap and Td Vaccines (1 - Tdap) [facility] Start: 1971 Urine microalbumin profile DTaP,Tdap,Td Vaccine (1 - Tdap) [facility] Start: 1970 Adult BMI Follow Up Plan Adult BMI Follow Up Plan [facility] Start: 1970 Anxiety Screening Anxiety Screening [facility] Start: 1970 Depression Screening Depression Screening [facility] Start: 1970 Hepatitis C screening Hepatitis C Screening [facility] Start: 1952 Abdominal aortic aneurysm screening Abdominal Aortic Aneurysm Screening [facility] Immunizations Immunization Date Immunization Notes Care Provider Fa cility 07-09-2024 influenza, high dose seasonal, preservative-free Sumanth Hill MD Work Phone: [facility] 07-09-2024 Pneumococcal Conjuga te 20-valent Sumanth Hill MD Work Phone: [facility] 08-05-2023 Influenza, High-dose , Quadrivalent Sumanth Hill MD Work Phone: [facility] 08-05-2023 RSV, bivalent, prote in subunit RSVpreF, diluent reconstituted, 0.5 mL, PF Sumanth Hill MD Work Phone: [facility] 08-20-2022 Influenza, High-dose , Quadrivalent [facility] 08-20-2022 influenza virus vacc ine, unspecified formulation Unk (Hist) [facility] 04-26-2022 influenza, injectabl e, quadrivalent, preservative free [facility] 09-18-2021 influenza, injectabl e, quadrivalent, preservative free [facility] 07-20-2020 Influenza, High-dose , Quadrivalent [facility] 08-11-2019 influenza, high dose seasonal, preservative-free [facility] 08-11-2019 pneumococcal polysaccharide vaccine, 23 valent [facility] 07-31-2018 influenza, injectabl e, quadrivalent, preservative free [facility] 11-20-2017 influenza, seasonal, injectable, preservative free [facility] 11-20-2017 pneumococcal conjuga te vaccine, 13 valent [facility] 08-19-2013 pneumococcal polysaccharide vaccine, 23 valent [facility] 05-29-2013 zoster vaccine, live [facility] 05-29-2013 zoster vaccine, unspecified formulation [facility] 08-18-2012 influenza virus vacc ine, whole virus [facility] 08-13-2012 pneumococcal polysaccharide vaccine, 23 valent [facility] 08-13-2012 zoster vaccine, live [facility] 09-03-2011 influenza virus vacc ine, whole virus [facility] 09-11-2010 influenza virus vacc ine, whole virus [facility] 08-22-2009 influenza virus vacc ine, whole virus [facility] Payers Date Payer Category Payer Worker's Compensation [id number] 2023 Self-pay [id number] 2023 Unknown [id number] 2019 Commercial Indemnity [facility] [id number] 2019 Unknown 2017 Medicare [id number] 1959 Medicare [id number] 1959 Unknown [id number] 1959 Unknown [id number] 1952 Unknown [id number] 2.16.840.1.370309.3.579.2.5 1952 Unknown [id number] 2.16.840.1.180313.3.579.2.5 1952 Unknown [id number] 2.16.840.1.544788.3.579.2.5 1952 Unknown [id number] 2.16.840.1.611491.3.579.2.5 1952 Unknown [id number] 2.16.840.1.535010.3.579.2.5 1952 Unknown [id number] 2.16.840.1.765647.3.579.2.5 1952 Unknown [id number] 2.16.840.1.545971.3.579.2.5 1952 Unknown [id number] 2.16.840.1.554912.3.579.2.5 1952 Unknown [id number] 2.16.840.1.407902.3.579.2.5 1952 Unknown [id number] 2.16.840.1.448927.3.579.2.5 93 1952 Unknown [id number] 2.16.840.1.138201.3.579.2.5 93 1952 Unknown [id number] 2.16.840.1.923650.3.579.2.1 286 1952 Unknown [id number] 2.16.840.1.773897.3.579.2.1 286 1952 Unknown [id number] 2.16.840.1.760037.3.579.2.1 286 1952 Unknown [id number] 2.16.840.1.045917.3.579.2.1 286 1952 Unknown [id number] 2.16.840.1.931604.3.579.2.1 286 1952 Unknown [id number] 2.16.840.1.225141.3.579.2.1 286 1952 Unknown [id number] 2.16.840.1.056639.3.579.2.1 286 1952 Unknown [id number] 2.16.840.1.787442.3.579.2.1 286 1952 Unknown [id number] 2.16.840.1.427578.3.579.2.1 259 1952 Unknown [id number] 2.16.840.1.396547.3.579.2.1 259 1952 Unknown [id number] 2.16.840.1.139718.3.579.2.1 286 1952 Unknown [id number] 2.16.840.1.914896.3.579.2.1 286 1952 Unknown [id number] 2.16.840.1.816231.3.579.2.1 286 1952 Unknown [id number] 2.16.840.1.705521.3.579.2.1 286 1952 Unknown [id number] 2.16.840.1.622052.3.579.2.1 286 1952 Unknown [id number] 2.16.840.1.121913.3.579.2.1 286 1952 Unknown [id number] 2.16.840.1.483665.3.579.2.1 286 1952 Unknown [id number] 2.16.840.1.361737.3.579.2.1 1952 Unknown [id number] 2.16.840.1.886350.3.579.2.1 1952 Unknown [id number] 2.16.840.1.580627.3.579.2.1 1952 Unknown [id number] 2.16.840.1.970391.3.579.2.1 1952 Unknown [id number] 2.16.840.1.828389.3.579.2.1 1952 Unknown [id number] 2.16.840.1.921862.3.579.2.1 1952 Unknown [id number] 2.16.840.1.712758.3.579.2.1 1952 Unknown [id number] 2.16.840.1.845659.3.579.2.1 1952 Unknown [id number] 2.16.840.1.871730.3.579.2.1 1952 Unknown [id number] 2.16.840.1.821108.3.579.2.1 1952 Unknown [id number] 2.16.840.1.072676.3.579.2.1 1952 Unknown [id number] 2.16.840.1.230478.3.579.2.1 1952 Unknown [id number] 2.16.840.1.183340.3.579.2.1 286 1952 Unknown [id number] 2.16.840.1.864747.3.579.2.1 96 1952 Unknown [id number] 2.16.840.1.372057.3.579.2.1 96 Unknown [facility] [id number] Unknown [id number] 2.16.840.1.846427.3.579.2.5 31 Social History Date Type Detail Facility Unknown if ever smoked [facility] Work Phone: Start: 12-01-2019 End: 12-15-2020 Sex Assigned At [facility] Other Start: 1950 Sex Assigned At Male [facility] Start: 01-17-2023 End: 04-28-2024 Tobacco smoking status AKIS Ex-smoker [facility] End: 11-04-1996 History of tobacco use Current smoker [facility] End: 11-04-1996 History of tobacco use Cigarette Smoker [facility] Start: 01-17-2023 End: 04-28-2024 Tobacco use and exposure Smokeless tobacco non-user [facility] Start: 10-31-2023 End: 08-11-2024 Alcohol intake Current drinker of alcohol (finding) [facility] Start: 12-01-2019 End: 12-15-2020 History of Social function [facility] Frequency of Alcohol Consumption 4 or more times a week [facility] Start: 01-17-2023 Alcohol Comment socially [facility] Start: 1950 Sex Assigned At Not on file P [facility] Start: 11-07-2018 Tobacco smoking stat us [facility] Never smoked tobacco (finding) [facility] Start: 06-09-2015 Sex Male (finding) [facility] Medical Equipment Procedure Code Equipment Code Equipment Origin al Text Equipment Identifier Dates Patch Dura 1x1in Drmtrx-[place] + Clgn Rgnrt Membr Strl Rpl [id number] - [id number] Start: 12-25-2023 Goals Date Patient Goal [...] Sumanth Hill MD - 08/11/2024 9:00 AM EDTPatient Luanne Clayton APRN.RESEARCH ASSOCIATE - 07/03/2024 4:08 PM Ling Moreno - 07/01/2024 2:32 PM Adeline Zeng RN - 12/27/2023 1:01 PM EST Note Date & Type Note Facility 08-11-2024 History of Present illness Narrative Images from the original note were not included. [address] [facility] [id number] Subjective: Regan Green is a 74 y.o. male who presents for a Medicare Annual Wellness exam. The following portions of the patient's history were reviewed and updated as appropriate: Health Risk Assessment, allergies, past medical history, past surgical history, social history, family history, and immunization history Accompanied by: self History Provided By: self Language and Other Communication Barriers: Primary Language Spoken: Georgian Highest Level of Education Completed: high school [...] Do you have a durable power of disability attorney?: Yes Fall Risk Fall Risk Assessment [...] with pain 02/08/2020 Malignant neoplasm of prostate ([facility]) 02/07/2017 Adenocarcinoma of prostate ([facility]) 11/20/2016 Past Medical History: Diagnosis Date Cancer of prostate ([facility]) 2017 prostatectomy Diverticulitis Diverticulosis Fecal impaction ([facility]) Inflammation of sacroiliac joint ([facility]) Knee pain Low back pain Lumbar disc disorder Neurogenic claudication 12/17/2023 Osteoarthritis SBO (small bowel obstruction) ([facility]) 10/04/2023 Shingles UTI (urinary tract infection) Varicose veins of right lower extremity with pain 02/08/2020 Visual impairment 12/20/2023 Past Surgical History: Procedure Laterality Date ABDOMINAL ADHESION SURGERY COLONOSCOPY COLONOSCOPY N/A 03/25/2023 Performed by Matt Campbell DO at [facility] HERNIA REPAIR Left inguinal HIP SURGERY Left JOINT REPLACEMENT LAMINECTOMY LUMBAR MULTI LEVEL / L2-L5 N/A 12/25/2023 Performed by Mayco Nolen MD at [facility] PROSTATE BIOPSY PROSTATECTOMY REVISION TOTAL KNEE ARTHROPLASTY [...] The method used for this test is [employer] DXI chemiluminescent immunoassay. Values obtained by different [...] includes TSH FT4; Future Adenocarcinoma of prostate ([facility]) Follow Up: Consider inversion table fasting labs documented in this encounter [facility] 08-11-2024 Instructions Sumanth Hill MD - 08/11/2024 [...] services: Not applicable [facility] Note HNO ID: [id number] Author: LUANNE ELLIOTT APRN.RESEARCH ASSOCIATE Service: ? Author Type: Nurse Practitioner Type: Progress Notes Filed: 07/03/2024 16:12 Note Text: Per Triage: Regan Green is a 74 year old male that requests evaluation of lumbar spine. Per review, they have symptoms of right leg pain from right knee to ankle numbness and weakness Patient lives in [place] [address] Gregorio Palm 's office [...] of imaging with him and injection history [facility] 07-03-2024 History of Present illness Narrative Per Triage: Regan Green is a 74 year old male that requests evaluation of lumbar spine. Per review, they have symptoms of right leg pain from right knee to ankle numbness and weakness Patient lives in [facility] [address] Gregorio Palm 's [...] Health Provider or Pain Management Provider at [facility]? No If answer is YES please [...] the facility where the MRI/CT/myelogram was completed: [facility] [address] [place] [address] MRI/CT/myelogram viewable in Epic: No If not, please provide [phone] to fax in imaging reports for review. Also, please inform patient to hand carry imaging disc to appointment. XR (spine) within 12 months: Yes If YES, please ask for the name/address of the facility where the XR was completed: [facility] [address] [place] [address] Dr. Robertson's patients: Have you had previous [...] and/or physical therapy was completed PT: [facility] [address] [place] [address] Injections: [facility] [address] [place] [address] Have you tried any other kinds of [...] the surgery was completed: 12/25/2023, Laminectomy L2-L5 [facility] [address] [place] [address] Additional Comments [phone] documented in this encounter [facility] 07-01-2024 Note HNO ID: [id number] Author: ?, ?, ? Service: ? Author Type: ? Type: Progress Notes Filed: 07/03/2024 16:12 Note Text: Patient name: Regan Green Are you being referred by a [facility] Spine Health Provider or Pain Management Provider at [facility]? No If answer is YES please [...] the facility where the MRI/CT/myelogram was completed: [place] [facility] [address] [place] [address] MRI/CT/myelogram viewable in Epic: No If not, please provide [phone] to fax in imaging reports for review. Also, please inform patient to hand carry imaging disc to appointment. XR (spine) within 12 months: Yes If YES,? please ask for the name/address of the facility where the XR was completed: [facility] [address] [place] [address] Dr. Robertson's patients: Have you had previous [...] and/or physical therapy was completed PT: [facility] [address] [place] [address] Injections: [facility] [address] [place] [address] Have you tried any other kinds of [...] the surgery was completed: 12/25/2023, Laminectomy L2-L5 [facility] [address] [place] [address] Additional Comments [phone] [facility] 12-27-2023 Nurse Note Discharge instructions provided to patient. Patient verbalized understanding, and denies any further concerns at this time. IV removed at time of discharged. Patient gathered belongings from room. Patient in no apparent distress. Patient taken to entrance b in a wheelchair with . [facility] 12-27-2023 Nurse Note Discharge instructions provided to patient. Patient verbalized understanding, and denies any further concerns at this time. IV removed at time of discharged. Patient gathered belongings from room. Patient in no apparent distress. Patient taken to entrance b in a wheelchair with . documented in this encounter [facility] 12-27-2023 Plan of care note Problem: Pain Goal: Patient goal is pain score less than 4, able to rest, and participant in treatment plan as appropriate Description: INTERVENTIONS: 1. Encourage patient or legal sales representative church furniture to report early pain and ask for [...] per policy 9. Teach patient or legal sales representative church furniture interventions for comforting 12/27/2023 1259 by MIREILLE [...] at the bedside 7. Instruct patient/ patient sales representative church furniture about use of safety devices 8. Include patient/ patient sales representative church furniture in decisions related to safety 12/27/2023 1259 [...] hygiene technique 7. Identify and instruct patient/patient sales representative church furniture in use of appropriate isolation precautions for identified infection/symptoms 8. Provide and discuss with patient/patient sales representative church furniture on educational MDRO sheet 9. Encourage and monitor nutritional status daily and consult vp [employer] solutions if indicated 10. Implement neutropenic guidelines as [...] care ongoing. Problem: Knowledge Deficit Goal: Patient/patient sales representative church furniture demonstrates understanding of disease process, treatment plan, [...] discharge transportation as appropriate 12/27/2023 1259 by MRIEILLE Braswell Outcome: Adequate for Discharge 12/27/2023 1008 by MIREILLE Braswell Outcome: Progressing Note: Evaluation of progress towards goal: Patient will be discharged with appropriate resources. Problem: Moderate - High Risk Fall Score Description: Soni Fall Score of =/> 25 or indicated by [facility] Assessment Goal: Patient should be free from fall Description: Interventions: 1. [place] to environment 2. Hourly rounds addressing the [...] non-skid footwear 11. Teach patient and patient sales representative church furniture to maintain environment for safety and engage [...] (cane, walker) within reach 19. Request patient sales representative church furniture bring adaptive equipment/mobility aids from home or obtain and provide as needed 20. Consult pharmacy regarding effects of med's affecting mobility, cognition, and alternatives 21. Obtain physician order for PT if risk factors associated with mobility are present 22. Obtain physician order for OT as appropriate 23. Utilize diversional activities 24. Educate patient and patient sales representative church furniture how to maintain a safe environment during visitation times (notify nurse prior to leaving bedside) 25. Consider appropriateness of medical or non-medical field representative 26. Set up voiding schedule as appropriate [...] progress towards goal: Plan of care ongoing. [facility] 12-27-2023 Miscellaneous Notes Problem: Pain Goal: Patient goal is pain score less than 4, able to rest, and participant in treatment plan as appropriate Description: INTERVENTIONS: 1. Encourage patient or legal sales representative church furniture to report early pain and ask for [...] per policy 9. Teach patient or legal sales representative church furniture interventions for comforting 12/27/2023 1259 by MIREILLE [...] at the bedside 7. Instruct patient/ patient sales representative church furniture about use of safety devices 8. Include patient/ patient sales representative church furniture in decisions related to safety 12/27/2023 1259 [...] hygiene technique 7. Identify and instruct patient/patient sales representative church furniture in use of appropriate isolation precautions for identified infection/symptoms 8. Provide and discuss with patient/patient sales representative church furniture on educational MDRO sheet 9. Encourage and monitor nutritional status daily and consult vp [employer] solutions if indicated 10. Implement neutropenic guidelines as [...] care ongoing. Problem: Knowledge Deficit Goal: Patient/patient sales representative church furniture demonstrates understanding of disease process, treatment plan, [...] be free from fall Description: Interventions: 1. [place] to environment 2. Hourly rounds addressing the [...] non-skid footwear 11. Teach patient and patient sales representative church furniture to maintain environment for safety and engage [...] (cane, walker) within reach 19. Request patient sales representative church furniture bring adaptive equipment/mobility aids from home or obtain and provide as needed 20. Consult pharmacy regarding effects of med's affecting mobility, cognition, and alternatives 21. Obtain physician order for PT if risk factors associated with mobility are present 22. Obtain physician order for OT as appropriate 23. Utilize diversional activities 24. Educate patient and patient sales representative church furniture how to maintain a safe environment during visitation times (notify nurse prior to leaving bedside) 25. Consider appropriateness of medical or non-medical field representative 26. Set up voiding schedule as appropriate [...] Description: INTERVENTIONS: 1. Encourage patient or legal sales representative church furniture to report early pain and ask for [...] per policy 9. Teach patient or legal sales representative church furniture interventions for comforting Outcome: Progressing Note: Evaluation [...] at the bedside 7. Instruct patient/ patient sales representative church furniture about use of safety devices 8. Include patient/ patient sales representative church furniture in decisions related to safety Outcome: Progressing [...] hygiene technique 7. Identify and instruct patient/patient sales representative church furniture in use of appropriate isolation precautions for identified infection/symptoms 8. Provide and discuss with patient/patient sales representative church furniture on educational MDRO sheet 9. Encourage and monitor nutritional status daily and consult vp [employer] marketing solutions if indicated 10. Implement neutropenic guidelines as needed 11. Review exposure to history of communicable disease and recent travel history on admission 12. Encourage annual influenza vaccine 13. Encourage pneumonia vaccine Outcome: Progressing Note: Evaluation of progress towards goal: Patient denies fever. No purulent drainage noted at site. Plan of care ongoing. Problem: Knowledge Deficit Goal: Patient/patient sales representative church furniture demonstrates understanding of disease process, treatment plan, [...] Score of =/> 25 or indicated by [facility] Assessment Goal: Patient should be free from fall Description: Interventions: 1. [place] to environment 2. Hourly rounds addressing the [...] non-skid footwear 11. Teach patient and patient sales representative church furniture to maintain environment for safety and engage [...] (cane, walker) within reach 19. Request patient sales representative church furniture bring adaptive equipment/mobility aids from home or obtain and provide as needed 20. Consult pharmacy regarding effects of med's affecting mobility, cognition, and alternatives 21. Obtain physician order for PT if risk factors associated with mobility are present 22. Obtain physician order for OT as appropriate 23. Utilize diversional activities 24. Educate patient and patient sales representative church furniture how to maintain a safe environment during visitation times (notify nurse prior to leaving bedside) 25. Consider appropriateness of medical or non-medical field representative 26. Set up voiding schedule as appropriate [...] Description: INTERVENTIONS: 1. Encourage patient or legal sales representative church furniture to report early pain and ask for [...] per policy 9. Teach patient or legal sales representative church furniture interventions for comforting Outcome: Progressing Note: Evaluation [...] at the bedside 7. Instruct patient/ patient sales representative church furniture about use of safety devices 8. Include patient/ patient sales representative church furniture in decisions related to safety Outcome: Progressing [...] hygiene technique 7. Identify and instruct patient/patient sales representative church furniture in use of appropriate isolation precautions for identified infection/symptoms 8. Provide and discuss with patient/patient sales representative church furniture on educational MDRO sheet 9. Encourage and monitor nutritional status daily and consult vp [employer] marketing solutions if indicated 10. Implement neutropenic guidelines as needed 11. Review exposure to history of communicable disease and recent travel history on admission 12. Encourage annual influenza vaccine 13. Encourage pneumonia vaccine Outcome: Progressing Note: Evaluation of progress towards goal: patient free from s/s of infection Problem: Knowledge Deficit Goal: Patient/patient sales representative church furniture demonstrates understanding of disease process, treatment plan, [...] Score of =/> 25 or indicated by [facility] Assessment Goal: Patient should be free from fall Description: Interventions: 1. [place] to environment 2. Hourly rounds addressing the [...] non-skid footwear 11. Teach patient and patient sales representative church furniture to maintain environment for safety and engage [...] (cane, walker) within reach 19. Request patient sales representative church furniture bring adaptive equipment/mobility aids from home or obtain and provide as needed 20. Consult pharmacy regarding effects of med's affecting mobility, cognition, and alternatives 21. Obtain physician order for PT if risk factors associated with mobility are present 22. Obtain physician order for OT as appropriate 23. Utilize diversional activities 24. Educate patient and patient sales representative church furniture how to maintain a safe environment during visitation times (notify nurse prior to leaving bedside) 25. Consider appropriateness of medical or non-medical field representative 26. Set up voiding schedule as appropriate [...] Description: INTERVENTIONS: 1. Encourage patient or legal sales representative church furniture to report early pain and ask for [...] per policy 9. Teach patient or legal sales representative church furniture interventions for comforting Outcome: Progressing Note: Evaluation [...] at the bedside 7. Instruct patient/ patient sales representative church furniture about use of safety devices 8. Include patient/ patient sales representative church furniture in decisions related to safety Outcome: Progressing [...] hygiene technique 7. Identify and instruct patient/patient sales representative church furniture in use of appropriate isolation precautions for identified infection/symptoms 8. Provide and discuss with patient/patient sales representative church furniture on educational MDRO sheet 9. Encourage and monitor nutritional status daily and consult vp global marketing solutions if indicated 10. Implement neutropenic guidelines as needed 11. Review exposure to history of communicable disease and recent travel history on admission 12. Encourage annual influenza vaccine 13. Encourage pneumonia vaccine Outcome: Progressing Note: Evaluation of progress towards goal: Patient is being monitored for s/sx of infection. Problem: Knowledge Deficit Goal: Patient/patient sales representative church furniture demonstrates understanding of disease process, treatment plan, [...] Score of =/> 25 or indicated by [facility] Rehab Assessment Goal: Patient should be free from fall Description: Interventions: 1. [place] to environment 2. Hourly rounds addressing the [...] non-skid footwear 11. Teach patient and patient sales representative church furniture to maintain environment for safety and engage [...] (cane, walker) within reach 19. Request patient sales representative church furniture bring adaptive equipment/mobility aids from home or obtain and provide as needed 20. Consult pharmacy regarding effects of med's affecting mobility, cognition, and alternatives 21. Obtain physician order for PT if risk factors associated with mobility are present 22. Obtain physician order for OT as appropriate 23. Utilize diversional activities 24. Educate patient and patient sales representative church furniture how to maintain a safe environment during visitation times (notify nurse prior to leaving bedside) 25. Consider appropriateness of medical or non-medical field representative 26. Set up voiding schedule as appropriate [...] 6 Clicks: Basic Mobility Raw Score: 18 [facility] G Code Modifier: CK Therapy Plan Need for skilled Physical Therapy to address deficits in functional mobility due to a status decline resulting from recent admit on 12/25/23 with planned lumbar laminectomy at L2-L5 d/t radiculopathy of lumbar region. Past Medical History: Diagnosis Date Cancer of prostate ([facility]) 2017 prostatectomy Diverticulitis Diverticulosis Fecal impaction ([facility]) Inflammation of sacroiliac joint ([facility]) Knee pain Low back pain Lumbar disc disorder Neurogenic claudication 12/17/2023 Osteoarthritis SBO (small bowel obstruction) ([facility]) 10/04/2023 Shingles UTI (urinary tract infection) Varicose veins of right lower extremity with pain 02/08/2020 Visual impairment 12/20/2023 Past Surgical History: Procedure Laterality Date ABDOMINAL ADHESION SURGERY COLONOSCOPY COLONOSCOPY N/A 03/25/2023 Performed by Matt Campbell DO at [facility] HERNIA REPAIR Left inguinal HIP SURGERY Left LAMINECTOMY LUMBAR MULTI LEVEL / L2-L5 N/A 12/25/2023 Performed by Mayco Nolen MD at [facility] PROSTATE BIOPSY PROSTATECTOMY REVISION TOTAL KNEE ARTHROPLASTY [...] pass Equipment: RW, gait belt, wound drain Telemetry/Sand Screener Operator: Yes Oxygen Used: room air Other: fall [...] Patient will perform bed mobility with Modified Sharkey Dates: Start: 12/26/23 Expected End: 01/24/24 Description: Goal Description: with proper BUE placement and sequencing Disciplines: PT Problem: Gait Dates: Start: 12/26/23 Disciplines: PT Goal: Patient will perform gait with Modified Sharkey Dates: Start: 12/26/23 Expected End: 01/24/24 Description: With__RW__,__150__feet Goal Description: with proper gait pattern and safety awareness Disciplines: PT Problem: Stairs/Curb Dates: Start: 12/26/23 Disciplines: PT Goal: Patient will perform stairs/curb with Modified Sharkey Dates: Start: 12/26/23 Expected End: 01/24/24 Description: [...] Goal: Patient will perform transfers with Modified Sharkey Dates: Start: 12/26/23 Expected End: 01/24/24 Description: [...] home with , self care. - Jace iSlva RN 12/26/23 11:57 AM Met with patient [...] Description: INTERVENTIONS: 1. Encourage patient or legal sales representative church furniture to report early pain and ask for [...] per policy 9. Teach patient or legal sales representative church furniture interventions for comforting Outcome: Progressing Note: Evaluation [...] hygiene technique 7. Identify and instruct patient/patient sales representative church furniture in use of appropriate isolation precautions for identified infection/symptoms 8. Provide and discuss with patient/patient sales representative church furniture on educational MDRO sheet 9. Encourage and monitor nutritional status daily and consult vp global marketing solutions if indicated 10. Implement neutropenic guidelines as [...] [place] punches. I then checked with a [place] elevator and confirmed that there was no [...] Nolen MD - Primary Assistants: None Staff: Golf Club Head Inspector And Adjuster Primary: Lily Glasgow RN Golf Club Head Inspector And Adjuster Relief: Dina Roy RN Scrub Person: Janak [...] Implant Name Type Inv. Item Serial No. Associate Counsel Lot No. LRB No. Used Action PATCH DURA 1X1IN DRMTRX-ONLAY + CLGN RGNRT MEMBR STRL RPL [id number] - [id number] Graft PATCH DURA 1X1IN DRMTRX-ONLAY + CLGN RGNRT MEMBR STRL RPL [id number] PAULINA CRANIOMAXILLOFACIAL [id number] N/A 1 Implanted Estimated Blood Loss: 100 [...] no further orders documented in this encounter [facility] 12-27-2023 Hospital course Narrative Images from the original note were not included. [facility] [address] [place] [address], [address] [place] [address] * NEUROSURGERY DISCHARGE SUMMARY Patient: Regan Green Date of : 1950 Acct: [id number] Primary Care Physician: Sumanth Hill MD Admit [...] mg EC tablet Commonly known as: VOLTAREN [employer] ORAL OSTEO BI-FLEX ORAL oxyCODONE-acetaminophen 5-325 mg per tablet Commonly known as: PERCOCET tiZANidine 4 mg tablet Commonly known as: ZANAFLEX Where to Get Your Medications These medications were sent to [facility] [id number] [place] [id number] methocarbamoL 500 mg tablet naloxone 4 mg/actuation [...] acceptable and clinically appropriate. JOSEMANUEL Lainez Neurosurgery [facility] Patient Touch 12/27/23 12:28 PM JOSEMANUEL Sandoval 12/27/23 1231 documented in this encounter [facility] 12-27-2023 Hospital Discharge instructions JOSEMANUEL Sandoval - [...] as needed for 7 days or until sutures/adir are removed. Do not apply creams or [...] remove at that time. Other Instructions: Call [facility] Neurosurgery with any questions, . The following attachments cannot be sent through Care Everywhere.Radiculopathy Discharge Instructions (Georgian)documented in this encounter [facility] 12-27-2023 Plan of care note Problem: Pain Goal: Patient goal is pain score less than 4, able to rest, and participant in treatment plan as appropriate Description: INTERVENTIONS: 1. Encourage patient or legal sales representative church furniture to report early pain and ask for [...] per policy 9. Teach patient or legal sales representative church furniture interventions for comforting Outcome: Progressing Note: Evaluation [...] at the bedside 7. Instruct patient/ patient sales representative church furniture about use of safety devices 8. Include patient/ patient sales representative church furniture in decisions related to safety Outcome: Progressing [...] hygiene technique 7. Identify and instruct patient/patient sales representative church furniture in use of appropriate isolation precautions for identified infection/symptoms 8. Provide and discuss with patient/patient sales representative church furniture on educational MDRO sheet 9. Encourage and monitor nutritional status daily and consult vp global marketing solutions if indicated 10. Implement neutropenic guidelines as needed 11. Review exposure to history of communicable disease and recent travel history on admission 12. Encourage annual influenza vaccine 13. Encourage pneumonia vaccine Outcome: Progressing Note: Evaluation of progress towards goal: Patient denies fever. No purulent drainage noted at site. Plan of care ongoing. Problem: Knowledge Deficit Goal: Patient/patient sales representative church furniture demonstrates understanding of disease process, treatment plan, [...] Score of =/> 25 or indicated by [facility] Rehab Assessment Goal: Patient should be free from fall Description: Interventions: 1. [place] to environment 2. Hourly rounds addressing the [...] non-skid footwear 11. Teach patient and patient sales representative church furniture to maintain environment for safety and engage [...] (cane, walker) within reach 19. Request patient sales representative church furniture bring adaptive equipment/mobility aids from home or obtain and provide as needed 20. Consult pharmacy regarding effects of med's affecting mobility, cognition, and alternatives 21. Obtain physician order for PT if risk factors associated with mobility are present 22. Obtain physician order for OT as appropriate 23. Utilize diversional activities 24. Educate patient and patient sales representative church furniture how to maintain a safe environment during visitation times (notify nurse prior to leaving bedside) 25. Consider appropriateness of medical or non-medical field representative 26. Set up voiding schedule as appropriate [...] progress towards goal: Plan of care ongoing. [facility] 12-27-2023 Progress note Formatting of t his note is different from the original. Physical Therapy CANCEL - Deferred Per RN pt is dizzy and diaphoretic laying supine in bed. Will hold PT treatment and attempt to complete session as able. [facility]-27[facility] History of Present illness Narrative Images from the original note were not included. [facility] [address] [place] [address], [address] [place] [address] * NEUROSURGERY DAILY PROGRESS NOTE DATE:12/27/2023 PATIENT'S [...] - Home later today JOSEMANUEL Lainez Neurosurgery [facility] Patient Touch 12/27/23 6:04 AM To find out which ESTEFANY is on for the day please go to [employer] and use log in [employer] and search for PTH Neurosurgery JOSEMANUEL Sandoval 12/26/23 1010 JOSEMANUEL Sandoval 12/27/23 1222 Images from the original note were not included. [facility] [address] [place] [address], [address] [place] [address] * NEUROSURGERY DAILY PROGRESS NOTE DATE:12/26/2023 PATIENT'S [...] later vs in AM JOSEMANUEL Lainez Neurosurgery [facility] Patient Touch 12/26/23 9:51 AM To find out which ESTEFANY is on for the day please go to [employer] and use log in [employer] and search for PTH Neurosurgery JOSEMANUEL Sandoval 12/26/23 1010 documented in this encounter [facility] 12-27-2023 Plan of care note Problem: Pain Goal: Patient goal is pain score less than 4, able to rest, and participant in treatment plan as appropriate Description: INTERVENTIONS: 1. Encourage patient or legal sales representative church furniture to report early pain and ask for [...] per policy 9. Teach patient or legal sales representative church furniture interventions for comforting Outcome: Progressing Note: Evaluation [...] at the bedside 7. Instruct patient/ patient sales representative church furniture about use of safety devices 8. Include patient/ patient sales representative church furniture in decisions related to safety Outcome: Progressing [...] hygiene technique 7. Identify and instruct patient/patient sales representative church furniture in use of appropriate isolation precautions for identified infection/symptoms 8. Provide and discuss with patient/patient sales representative church furniture on educational MDRO sheet 9. Encourage and monitor nutritional status daily and consult vp global marketing solutions if indicated 10. Implement neutropenic guidelines as needed 11. Review exposure to history of communicable disease and recent travel history on admission 12. Encourage annual influenza vaccine 13. Encourage pneumonia vaccine Outcome: Progressing Note: Evaluation of progress towards goal: patient free from s/s of infection Problem: Knowledge Deficit Goal: Patient/patient sales representative church furniture demonstrates understanding of disease process, treatment plan, [...] be free from fall Description: Interventions: 1. [place] to environment 2. Hourly rounds addressing the [...] non-skid footwear 11. Teach patient and patient sales representative church furniture to maintain environment for safety and engage [...] (cane, walker) within reach 19. Request patient sales representative church furniture bring adaptive equipment/mobility aids from home or obtain and provide as needed 20. Consult pharmacy regarding effects of med's affecting mobility, cognition, and alternatives 21. Obtain physician order for PT if risk factors associated with mobility are present 22. Obtain physician order for OT as appropriate 23. Utilize diversional activities 24. Educate patient and patient sales representative church furniture how to maintain a safe environment during visitation times (notify nurse prior to leaving bedside) 25. Consider appropriateness of medical or non-medical field representative 26. Set up voiding schedule as appropriate [...] goal: patient maintaining body alignment per self [facility] 12-26-2023 Plan of care note Problem: Pain Goal: Patient goal is pain score less than 4, able to rest, and participant in treatment plan as appropriate Description: INTERVENTIONS: 1. Encourage patient or legal sales representative church furniture to report early pain and ask for [...] per policy 9. Teach patient or legal sales representative church furniture interventions for comforting Outcome: Progressing Note: Evaluation [...] at the bedside 7. Instruct patient/ patient sales representative church furniture about use of safety devices 8. Include patient/ patient sales representative church furniture in decisions related to safety Outcome: Progressing [...] hygiene technique 7. Identify and instruct patient/patient sales representative church furniture in use of appropriate isolation precautions for identified infection/symptoms 8. Provide and discuss with patient/patient sales representative church furniture on educational MDRO sheet 9. Encourage and monitor nutritional status daily and consult vp global marketing solutions if indicated 10. Implement neutropenic guidelines as needed 11. Review exposure to history of communicable disease and recent travel history on admission 12. Encourage annual influenza vaccine 13. Encourage pneumonia vaccine Outcome: Progressing Note: Evaluation of progress towards goal: Patient is being monitored for s/sx of infection. Problem: Knowledge Deficit Goal: Patient/patient sales representative church furniture demonstrates understanding of disease process, treatment plan, [...] Score of =/> 25 or indicated by [facility] Rehab Assessment Goal: Patient should be free from fall Description: Interventions: 1. [place] to environment 2. Hourly rounds addressing the [...] non-skid footwear 11. Teach patient and patient sales representative church furniture to maintain environment for safety and engage [...] (cane, walker) within reach 19. Request patient sales representative church furniture bring adaptive equipment/mobility aids from home or obtain and provide as needed 20. Consult pharmacy regarding effects of med's affecting mobility, cognition, and alternatives 21. Obtain physician order for PT if risk factors associated with mobility are present 22. Obtain physician order for OT as appropriate 23. Utilize diversional activities 24. Educate patient and patient sales representative church furniture how to maintain a safe environment during visitation times (notify nurse prior to leaving bedside) 25. Consider appropriateness of medical or non-medical field representative 26. Set up voiding schedule as appropriate [...] towards goal: Patient maintains proper anatomical alignment. [facility] 12-26-2023 Progress note Formatting of t his [...] 6 Clicks: Basic Mobility Raw Score: 18 [facility] G Code Modifier: CK Therapy Plan Need for skilled Physical Therapy to address deficits in functional mobility due to a status decline resulting from recent admit on 12/25/23 with planned lumbar laminectomy at L2-L5 d/t radiculopathy of lumbar region. Past Medical History: Diagnosis Date Cancer of prostate ([facility]) 2017 prostatectomy Diverticulitis Diverticulosis Fecal impaction ([facility]) Inflammation of sacroiliac joint ([facility]) Knee pain Low back pain Lumbar disc disorder Neurogenic claudication 12/17/2023 Osteoarthritis SBO (small bowel obstruction) ([facility]) 10/04/2023 Shingles UTI (urinary tract infection) Varicose veins of right lower extremity with pain 02/08/2020 Visual impairment 12/20/2023 Past Surgical History: Procedure Laterality Date ABDOMINAL ADHESION SURGERY COLONOSCOPY COLONOSCOPY N/A 03/25/2023 Performed by Matt Campbell DO at [facility] HERNIA REPAIR Left inguinal HIP SURGERY Left LAMINECTOMY LUMBAR MULTI LEVEL / L2-L5 N/A 12/25/2023 Performed by Mayco Nolen MD at [facility] PROSTATE BIOPSY PROSTATECTOMY REVISION TOTAL KNEE ARTHROPLASTY [...] pass Equipment: RW, gait belt, wound drain Telemetry/Sand Screener Operator: Yes Oxygen Used: room air Other: fall [...] Patient will perform bed mobility with Modified Sharkey Dates: Start: 12/26/23 Expected End: 01/24/24 Description: Goal Description: with proper BUE placement and sequencing Disciplines: PT Problem: Gait Dates: Start: 12/26/23 Disciplines: PT Goal: Patient will perform gait with Modified Sharkey Dates: Start: 12/26/23 Expected End: 01/24/24 Description: With__RW__,__150__feet Goal Description: with proper gait pattern and safety awareness Disciplines: PT Problem: Stairs/Curb Dates: Start: 12/26/23 Disciplines: PT Goal: Patient will perform stairs/curb with Modified Sharkey Dates: Start: 12/26/23 Expected End: 01/24/24 Description: [...] Goal: Patient will perform transfers with Modified Sharkey Dates: Start: 12/26/23 Expected End: 01/24/24 Description: Goal Description: with proper BUE placement and sequencing Disciplines: PT Physical Therapy Care Plan (Resolved) There are no resolved problems. Principal Problem: Radiculopathy, lumbar region Active Problems: Neurogenic claudication [facility] 12-26-2023 Progress note Formatting of t [...] smoking, drinking alcohol or doing illciit drugs. [facility] 12-26-2023 Plan of care note Problem: Pain Goal: Patient goal is pain score less than 4, able to rest, and participant in treatment plan as appropriate Description: INTERVENTIONS: 1. Encourage patient or legal sales representative church furniture to report early pain and ask for [...] per policy 9. Teach patient or legal sales representative church furniture interventions for comforting Outcome: Progressing Note: Evaluation [...] hygiene technique 7. Identify and instruct patient/patient sales representative church furniture in use of appropriate isolation precautions for identified infection/symptoms 8. Provide and discuss with patient/patient sales representative church furniture on educational MDRO sheet 9. Encourage and monitor nutritional status daily and consult vp global marketing solutions if indicated 10. Implement neutropenic guidelines as [...] of progress towards goal: progressing with walker [facility] 12-25-2023 Procedure note NEUROSURGERY OPERATIVE NOTE [...] room with stable vital signs. Complications: None. [facility] 12-25-2023 Procedure note Brief Post-op Note NAME: Regan Green : 1950 PROCEDURE DATE: 12/25/2023 Surgeon: Surgeon(s) and Role: * Mayco Nolen MD - Primary Assistants: None Staff: Golf Club Head Inspector And Adjuster Primary: Lily Glasgow RN Golf Club Head Inspector And Adjuster Relief: Dina Roy RN Scrub Person: Janak Holman DOWEL POINTER Pre-op Diagnosis: Radiculopathy, lumbar region [M54.16] Neurogenic [...] Implant Name Type Inv. Item Serial No. Associate Counsel Lot No. LRB No. Used Action PATCH DURA 1X1IN DRMTRX-ONLAY + CLGN RGNRT MEMBR STRL RPL [id number] - [id number] Graft PATCH DURA 1X1IN DRMTRX-ONLAY + CLGN RGNRT MEMBR STRL RPL [id number] PAULINA CRANIOMAXILLOFACIAL [id number] N/A 1 Implanted Estimated Blood Loss: 100 ml OB Surgical Procedure Blood Loss: Anesthesia EBL: * No values recorded between 12/25/2023 3:09 PM and 12/25/2023 4:54 PM * OB QBL: * No values recorded between 12/25/2023 3:09 PM and 12/25/2023 4:54 PM * Condition: stable Findings: severe lateral recess stenosis [facility] 12-25-2023 Attending History and physical note HISTORY AND PHYSICAL INTERVAL NOTE: Regan Green 1950 [id number] H&P reviewed. The patient was examined and there are no changes to the H&P. Mayco Nolen MD Source Note - Jasmin Noriega APRN-RESEARCH ASSOCIATE - 12/20/2023 6:12 PM EST Letter to pain management seeking clarification on post operative pain medications. JOSEMANUEL [facility] Neurosurgery Contact via patient touch 12/20/23 6:21 PM To find out which ESTEFANY is on for the day please go to [employer] and use log in [employer] and search for PTH Neurosurgery (ESTEFANY and Phone Number is listed) JOSEMANUEL Daniels 12/20/23 182 JOSEMANUEL Daniels 12/25/[address] [facility] History and physical note HISTORY AND PHYSICAL INTERVAL NOTE: Regan Green 1950 [id number] H&P reviewed. The patient was examined and there are no changes to the H&P. Mayco Nolen MD Source Note - JOSEMANUEL Daniels - 12/20/2023 6:12 PM EST Letter to pain management seeking clarification on post operative pain medications. JOSEMANUEL [facility] Neurosurgery Contact via patient touch 12/20/23 6:21 PM To find out which ESTEFANY is on for the day please go to [employer] and use log in [employer] and search for PTH Neurosurgery (ESTEFANY and Phone Number is listed) JOSEMANUEL Daniels 12/20/23 182 JOSEMANUEL Daniels 12/25/23 [id number] documented in this encounter [facility] 12-24-2023 Miscellaneous Notes I spoke to Kenneth to explain how Medicare authorizes surgeries. Reminded Kenneth of surgery tomorrow 12/25/23 at 2:45pm with TT arrival time of 12:45 pm documented in this encounter [facility] 12-24-2023 Telephone encounter Note I spoke to Kenneth to explain how Medicare authorizes surgeries. Reminded Kenneth of surgery tomorrow 12/25/23 at 2:45pm with TTH arrival time of 12:45 pm [facility] 12-24-2023 Nurse Note Anesthesia review: Lumb Patel: 12/25: TTH: GA. only hx prostate CA. No c/o CP or SOB. EKGs: LAst PCP note Reviewed and accepted by Dr Vásquez with no further orders [facility] 12-20-2023 Miscellaneous Notes Patient called to advise office that he does not need surgery clearance from PCP. documented in this encounter [facility] 12-20-2023 Telephone encounter Note Patient called to advise office that he does not need surgery clearance from PCP. [facility] 12-20-2023 History and physical note PRE-ADMISSION TESTING HISTORY AND PHYSICAL EXAM DATE: 12/20/23 PCP: Sumanth Hill MD CHIEF COMPLAINT: back pain HISTORY OF PRESENT ILLNESS: Regan Green, a 73 y.o. White or male, presents to [facility] for a pre-surgical H&P. The patient has [...] Medical History: Diagnosis Date Cancer of prostate ([facility]) 2017 prostatectomy Diverticulitis Diverticulosis Fecal impaction ([facility]) Inflammation of sacroiliac joint ([facility]) Knee pain Low back pain Lumbar disc disorder Neurogenic claudication 12/17/2023 Osteoarthritis SBO (small bowel obstruction) ([facility]) 10/04/2023 Shingles UTI (urinary tract infection) Varicose veins of right lower extremity with pain 02/08/2020 Visual impairment 12/20/2023 PAST SURGICAL HISTORY: Past Surgical History: Procedure Laterality Date ABDOMINAL ADHESION SURGERY COLONOSCOPY COLONOSCOPY N/A 03/25/2023 Performed by Matt Campbell DO at [facility] HERNIA REPAIR Left inguinal HIP SURGERY [...] the most recent lab values available in PSYCHIATRIC at the time of the office visit. [facility] labs are pending per surgeon. ASSESSMENT / DIAGNOSIS: Linked DX: Radiculopathy, lumbar region [M54.16] PLAN: Regna Green is scheduled for Linked Case Date: 12/25/2023 Linked Surgeon: Forrest Nolen MD Linked Surgery: Laminectomy Lumbar Multi Level / L2-L5. JOSEMANUEL Santoyo 12/20/23 1511 [facility] 12-20-2023 History and physical note PRE-ADMISSION TESTING HISTORY AND PHYSICAL EXAM DATE: 12/20/23 PCP: Sumanth Hill MD CHIEF COMPLAINT: back pain HISTORY OF PRESENT ILLNESS: Regan Green, a 73 y.o. White or male, presents to [facility] for a pre-surgical H&P. The patient has [...] Medical History: Diagnosis Date [facility] 2017 prostatectomy Diverticulitis Diverticulosis Fecal impaction ([facility]) Inflammation of sacroiliac joint ([facility]) Knee pain Low back pain Lumbar disc disorder Neurogenic claudication 12/17/2023 Osteoarthritis SBO (small bowel obstruction) ([facility]) 10/04/2023 Shingles UTI (urinary tract infection) Varicose veins of right lower extremity with pain 02/08/2020 Visual impairment 12/20/2023 PAST SURGICAL HISTORY: Past Surgical History: Procedure Laterality Date ABDOMINAL ADHESION SURGERY COLONOSCOPY COLONOSCOPY N/A 03/25/2023 Performed by Matt Campbell DO at [facility] HERNIA REPAIR Left inguinal HIP SURGERY [...] the most recent lab values available in PSYCHIATRIC at the time of the office visit. PAT labs are pending per surgeon. ASSESSMENT / DIAGNOSIS: Linked DX: Radiculopathy, lumbar region [M54.16] PLAN: Regan Green is scheduled for Linked Case Date: 12/25/2023 Linked Surgeon: Forrest Nolen MD Linked Surgery: Laminectomy Lumbar Multi Level / L2-L5. JOSEMANUEL Santoyo 12/20/23 1511 documented in this encounter [facility] 12-20-2023 Instructions Antonia Rosario RN - 12/20/2023 1:45 PM EST Your surgery/procedure is scheduled at [facility] on 12/25 at 2:45 Arrival Time 12:45 [facility] Address: [address] [place] [address] in [address] Parking lot located on [facility]. Report to the Entrance B. Check in at the information desk the surgery. The waiting room located on the second floor. If you have any questions prior to surgery, please call Pre-Admission Clinic at [phone] between 7:30 am and 4:30 pm Saturday through Saturday. If you have questions the morning of surgery, please call the Pre-op Department at [phone]. Notify your SURGEON if you develop any [...] would like to schedule therapy at a [facility] facility, please call [phone] ([phone]). Do not use lotions, creams, powders, perfume, make up, cologne or after-shaves day of surgery. Remove ALL jewelry including wedding rings, body piercings,hair extensions that contain metal, nail tamazight, make-up, and contact lens. You may brush [...] RIGHTS AND RESPONSIBILITIES As a patient at [facility], you have the right to: Receive medical care and be informed of who is taking care of you Be treated with dignity and respect Have a family member/sales representative church furniture of choice and your physician notified of your admission Receive information and actively participate in decisions about your care and treatment Refuse care, treatment and services Decide who may provide your support and speak for you Access episcopalian and spiritual services Participate in ethical issues [...] of hospital charges and payment methods Patient/patient sales representative church furniture responsibilities are to: Provide information about health [...] in clean clothes. documented in this encounter [facility] 12-18-2023 History of Present illness Narrative Pre [...] 10/04/23 no acute pulmonary pathology JOSEMANUEL Jackson [facility] Physicians Neurosurgery Contact via patient touch 12/21/23 6:10 AM To find out which ESTEFANY is on for the day please go to [employer] and use log in [employer] and search for PTH Neurosurgery (ESTEFANY and Phone Number is listed) JOSEMANUEL Daniels 12/25/23 9972 documented in this encounter [facility] 12-10-2023 Miscellaneous Notes Regan calls into the [...] would have to speak with Dr. Nolen surgery technician about surgery. Patient transferred to Dr. Nolen surgery technician. documented in this encounter [facility] 12-10-2023 Telephone encounter Note Regan calls into [...] would have to speak with Dr. Nolen surgery technician about surgery. Patient transferred to Dr. Nolen surgery technician. [facility] 11-27-2023 Miscellaneous Notes Kenneth left a message to ask how many physical therapy visits he should try to complete before scheduling surgery. Left message for Kenneth to let him know at least six visits usually show good effort but if these are unsuccessful he needs to make sure the physical therapist is documenting increase of pain or ineffectiveness. documented in this encounter [facility] 11-27-2023 Telephone encounter Note Kenneth left a message to ask how many physical therapy visits he should try to complete before scheduling surgery. [facility] 11-27-2023 Telephone encounter Note Left message for Kenneth to let him know at least six visits usually show good effort but if these are unsuccessful he needs to make sure the physical therapist is documenting increase of pain or ineffectiveness. [facility] 11-14-2023 History of Present illness Narrative Images from the original note were not included. [facility] [address] [place] [address], [address] [place] [address] * CHART NOTE ? 11/14/2023 Patient: Regan Green 1950 [id number] Nurse Practitioner: Carl Sosa, LATOYA Physician: Mayco Nolen MD, FAANS CHIEF COMPLAINT [...] He was seen by [facility] in [place], but was advised they could no longer help. He has not had any interventional pain procedures, but was seen at [facility] in [place], [place], but was advised he should be seen here first. Patient's imaging was discussed and reviewed to their understanding in office today. Patient has not yet exhausted all conservative measures of treatment and is agreeable to them namely CHANTELLE. Denies loss of data capture clerk strength, saddle anesthesia, urinary or bowel [...] 03/25/2023 Performed by Matt Campbell DO at [facility] HERNIA REPAIR Left inguinal HIP SURGERY [...] Right achilles 2+ Left achilles 2+ Right data capture clerk 2+ Left data capture clerk 2+ Right Mack reflex absent and [...] visible abscess or suspicious gas within the adbze-cx-svxe Close clinical follow-up and short-term progress repeat [...] but was seen at [facility] in [place], [place], but was advised he should be [...] record of the patient encounter. Inadvertent computerized adapted physical education teacher errors related to syntax, spelling, homophones, and/or inaudibility may be present. Scribe Statement: Scribed for and in the presence of JOSEMANUEL Kirk by Joshua Higginbotham. JOSEMANUEL Kirk 11/14/23 1630 documented in this encounter [facility] 11-14-2023 Instructions AINSLEY Szymanski - 11/14/2023 9:30 AM EST Patient was seen by Dr. Nolen and JOSEMANUEL Chappell Patient was given an order for an x ray Lumbar spine Flex/Ext Medrol pack Physical therapy Referral for Lumbar to PT services Pain management referral for Lumbar L3-4 Patient will follow up after Pain management JA documented in this encounter [facility] 11-05-2023 Miscellaneous Notes ED Outreach This documentation is being used for Transition of Care purposes: Yes/No: Yes ED Outreach Date: November 05, 2023 ED Outreach Method: COMMUNICATION METHOD: Telephone ED Outreach Attempt: first ED Outreach Outcome: Contacted Patient Name of ED Facility: [facility] Date of ED Discharge: 10/31/2023 [...] with additional concerns. documented in this encounter [facility] 11-05-2023 Telephone encounter Note ED Outreach This documentation is being used for Transition of Care purposes: Yes/No: Yes ED Outreach Date: November 05, 2023 ED Outreach Method: COMMUNICATION METHOD: Telephone ED Outreach Attempt: first ED Outreach Outcome: Contacted Patient Name of ED Facility: [facility] Date of ED Discharge: 10/31/2023 [...] will contact the office with additional concerns. [facility] 10-30-2023 Evaluation note Encounter Date Diagnosis [...] pain of right shoulder (ICD-10 - M25.511) [facility] Other 12-19-2023 NoteCT LUMBAR SPINE WO CONT [...] abscess or suspicious gas visible within the buwzz-dl-hqpj. Repeat contrast abdominal pelvic CT may prove useful in combination with colonic screening with appropriate Probable parapelvic cysts in the left kidney Prominent vascular calcifications There is some metal artifact related to a prior surgery at the left acetabular region. There are also clips in the low pelvis as seen on the professor of radiology image Sagittal images include from the lower [...] visible abscess or suspicious gas within the svmoz-rp-evyu Close clinical follow-up and short-term progress repeat abdominal pelvic contrast CT and colonic screening considered There is also be severe degenerative change of the lumbar spine and relatively severe canal and neural foraminal stenosis probably greatest at L3-4 and L4-5 levels There is no compression deformity or destructive bone process Finalized by Renaldo Tinajero MD on 10/22/2023 1:09 [facility] 08-20-2023 Evaluation note* Encounter Date Diagnosis [...] pain of right shoulder (ICD-10 - M25.511) [facility] Other 09-19-2023 Evaluation note* Encounter Date Diagnosis [...] pain of right shoulder (ICD-10 - M25.511) [facility] Other 08-21-2023 Evaluation note* Encounter Date Diagnosis [...] pain of right shoulder (ICD-10 - M25.511) [facility] Other 07-18-2023 Evaluation note* Encounter Date Diagnosis [...] given order for occupational therapy and braces [facility] [employer] Other 05-16-2023 NoteCONSULTATION CONSULTATION DATE: 03/19/2023 TO: [...] our patients to inform us about any xewp-ove-lhmwysv medications or herbal remedies/nutritional supplements/alternative remedies. 2. [...] treatment options with their primary care provider.[facility] [id number] Note CONSULTATION PROCEDURE DATE: 02/21/2023 PROCEDURE: Right [...] removed. He was discharged after meeting criteriaThe [facility] [id number] NoteCONSULTATION CONSULTATION DATE: 12/18/2022 CHIEF COMPLAINT: Left [...] like to proceed. CC: Sumanth Hill M.D.[facility] [id number] NoteCONSULTATION PROCEDURE DATE: 12/18/2022 PREOPERATIVE DIAGNOSIS: Osteoarthritis [...] will be followed up in the office.[facility] [id number] NoteCONSULTATION CONSULTATION DATE: 11/22/2022 HISTORY OF PRESENT [...] food. We will send a referral to [facility] to have his left CMC joint evaluated. Patient does agree with this, and we will follow him up in the clinic in three months' time.[facility] [id number] NotePROCEDURE: XR HAND LT MIN 3V HISTORY: [...] authenticated by: ALESSANDRO MEJIA Date: 2022-09-26 22:39[facility] [id number] NoteCONSULTATION CONSULTATION DATE: 09/20/2022 HISTORY OF PRESENT [...] mg t.i.d., Percocet 5/325 b.i.d., multivitamin and Kccxd-Rr-Lwdf. Patient, procedure-holloway, had radiofrequency ablation of his [...] to the clinic thereafter for follow up.[facility] [id number] NoteCONSULTATION CONSULTATION DATE: 08/02/2022 HISTORY OF PRESENT [...] lately, carrying heavy feed bags into the [employer] SPINE for hunting season. He knows he is [...] of care and all questions were answered.[facility] [id number] NoteCONSULTATION CONSULTATION DATE: 06/14/2022 This is a [...] and Achilles reflexes are +2. DIAGNOSIS: Code [facility] is 724.6. PLAN: We will authorize for a left SI joint injection, refill his Percocet 5/325 b.i.d. and refill Diclofenac 50 mg t.i.d. He is compliant with his vitamin regimen. At this time, I reiterated the use of heat and stretches. The patient will be followed in the clinic post-procedure and agrees to move forward.[facility] HospitalEvaluation noteNo assessment information available [facility] Work Phone: Evaluation note* Diagnosis Lumbar radiculopathy, chronic- Primary documented in this encounter [facility] System[facility]* Diagnosis Neurogenic claudication- Primary Spinal stenosis of lumbar region Lumbar radiculopathy, chronic documented in this encounter [facility] System[facility] note* Diagnosis Radiculopathy, lumbar [...] of lumbar region documented in this [facility]* Diagnosis Radiculopathy, lumbar region- Primary Thoracic or lumbosacral neuritis or radiculitis, unspecified Radiculopathy, lumbar region Thoracic or lumbosacral neuritis or radiculitis, unspecified Neurogenic claudication Spinal stenosis of lumbar region Neurogenic claudication Spinal stenosis of lumbar region documented in this encounter [facility] SystemEvaluation note* Diagnosis Onset Date Resolution Status Left hand pain acute 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, left hand acute [facility] Work Phone: Evaluation note* Diagnosis Onset Date Resolution Status Left hand pain acute 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, left hand acute Left hand pain acute 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, left hand acute [facility] Work Phone: Evaluation note* Diagnosis Routine general medical examination at a health care facility- Primary Lumbar radiculopathy, chronic Spondylolisthesis of lumbar region Pure hypercholesterolemia Adenocarcinoma of prostate ([facility]) Malignant neoplasm of prostate documented in this encounter [facility] [employer] SystemHistory general Narrative - Reported* Type Description Date Medical History post knee right replacement Surgical History knee replacement right Surgical History hernia Surgical History prostatectomy Surgical History acetabulum fx Hospitalization History see above [facility] Other InstructionsNot on filedocumented in this encounter [facility] [employer] SystemInstructionsNot on filedocumented in this encounter [facility] [employer] SystemInstructionsNot on filedocumented in this encounter [facility] [employer] SystemInstructionsNot on filedocumented in this encounter [facility] SystemInstructionsNot on filedocumented in this encounter [facility] (n[facility]ative)* Consultation (Routine) - Pending Review Specialty Diagnoses / Procedures Referred By Gaston borges Referred To Contact Neurosurgery Diagnoses Lumbar radiculopathy, chronic Sumanth Hill MD [address] [place] [address] Mayco Nolen MD [address] [place] [address] Referral ID Status Reason Start Date Expiration Date Visits Requested Visits Authorized [id number] Pending Review Specialty Services Required 11/05/2023 11/04/2024 1 1 [facility] (narrative)* Consultation (Routine) - Pending Review Specialty Diagnoses / Procedures Referred By Gaston borges Referred To Contact Pain Medicine Diagnoses Lumbar radiculopathy, chronic Neurogenic claudication Carl Sosa APRN-CNP 0 [facility] [address] [place] [address] [address] Referral ID Status Reason Start Date Expiration Date V isits Requested Visits Authorized [id number] Pending Review 11/14/2023 11/13/2024 1 1 * Physical Therapy (Routine) - Pending Review Specialty Diagnoses / Procedures Referred By Gaston borges Referred To Contact Rehabilitation Diagnoses Lumbar radiculopathy, chronic Neurogenic claudication Carl Sosa APRN-CNP [address] [facility] [address] [place] [address] [facility] [address] [place] [address] Referral ID Status Reason Start Date Expiration Date Visits Requested Visits Authorized [id number] Pending Review Specialty Services Required 11/14/2023 11/13/2024 1 1 [facility] Summary Purpose Family History No Family [...] section and content) DATE CREATED AUTHOR 04/21/2018 [facility] DATE CREATED AUTHOR AUTHOR'S ORGANIZ ATION 02/25/2022 [facility] dical Specialist DATE CREATED AUTHOR AUTHOR'S ORGANIZ ATION 04/12/2023 [facility] DATE CREATED AUTHOR AUTHOR'S ORGANIZ ATION 04/25/2024 [facility] DATE CREATED AUTHOR AUTHOR'S ORGANIZ ATION 06/05/2024 [facility] DATE CREATED AUTHOR AUTHOR'S ORGANIZ ATION 06/19/2024 [facility] dical Specialists EPIC DATE CREATED AUTHOR AUTHOR'S ORGANIZ ATION 07/04/2024 [facility] DATE CREATED AUTHOR AUTHOR'S ORGANIZ ATION 08/12/2024 [facility] DATE CREATED AUTHOR AUTHOR'S ORGANIZ ATION 08/26/2024 [facility] DATE CREATED AUTHOR AUTHOR'S ORGANIZ ATION 09/12/2024 [facility] REASON FOR VISIT (unrecogniz ed section and content) Reason Onset Date Comments Er Follow-up 11/05/2023 Reason Comments 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 [place] [address] Mayco Nolen MD [address] [place] [id number] Referral ID Status Reason Start Date Expiration Date Visits Requested Visits Authorized [id number] Pending Review Specialty Services Required 11/05/2023 11/04/2024 1 1 Reason Onset Date Comments surgery 12/10/2023 Reason Onset Date Comments surgery 12/24/2023 Specialty Diagnoses / Procedures Referred By Contac t Referred To Contact Referral ID Status Reason Start Date Expiration Date Visits Re quested Visits Authorized [id number] 1 1 Reason Comments Annual Exam Care [...] Active Charity Barkley MD Attending Provider Active Head Tennis Professional Relationship Specialty Start Date End Date Sumanth Hill MD [address] [place] [address] PCP - General Family Medicine 01/16/23 Head Tennis Professional Relationship Specialty Start Date End Date Sumanth Hill MD [address] [place] [address] PCP - General Family Medicine 01/16/23 Head Tennis Professional Relationship Specialty Start Date End Date Sumanth Hill MD [address] [place] [address] PCP - General Family Medicine 01/16/23 Head Tennis Professional Relationship Specialty Start Date End Date Sumanth Hill MD [address] [place] [address] PCP - General Family Medicine 01/16/23 Head Tennis Professional Relationship Specialty Start Date End Date Sumanth Hill MD [address] [place] [address] PCP - General Family Medicine 01/16/23 Head Tennis Professional Relationship Specialty Start Date End Date Sumanth Hill MD [address] [place] [address] PCP - General Family Medicine 01/16/23 Head Tennis Professional Relationship Specialty Start Date End Date Sumanth Hill MD [address] [place] [address] PCP - General Family Medicine 01/16/23 Head Tennis Professional Relationship Specialty Start Date End Date Sumanth Hill MD [address] [place] [address] PCP - [facility] 01/16/23 Team Status: Inactive Member Role [...] May 22, 2024 End: May 22, 2024 Head Tennis Professional Relationship Specialty Start Date End Date Sumanth Peres PCP - [facility] 12/17/14 Team Status: Inactive Member Role Status Dates NON STAFF Primary Care Provider Active Start: July 31, 2024 End: July 31, 2024 Charity Barkley MD Attending Provider Active Start: July 31, 2024 End: July 31, 2024 Head Tennis Professional Relationship Specialty Start Date End Date Sumanth Hill MD [address] [place] [address] PCP - [facility] 01/16/23 Head Tennis Professional Relationship Specialty Start Date End Date Sumanth Hill MD [address] [place] [address] PCP - [facility] Family Medicine 01/16/23 Goals (unrecognized section and content) Goals may be documented in a n alternate section Scheduled Active and Recently Administ ered Medications (unrecognized section and content) Medication Order 12/25/2023 12/26/2023 12/27/2023 acetaminophen (TYLENOL EXTRA STRENGTH) tablet 1,000 mg (COMPLETED) 1,000 mg, oral, Once, On Sat12/25/23 at 1445, For 1 dose, Pre-op 1456 (Given - Provider: Vibha Saeed, MIREILLE) ceFAZolin (ANCEF) 2,000 mg in sodium chloride [...] Look-alike/sound-alike medication - verify indication for use. 05 (Given - Provider: Bandar Bahena RN) 05 (Given - Provider: Pineda Alexandra, MIREILLE) gabapentin (NEURONTIN) tablet 600 mg 600 mg, oral, 2 times daily, First dose on Sat12/25/23 at 2100, PACU & Post-op, Look-alike/sound-alike medication - verify indication for use. 2003 (Given - Provider: Shira Thomas RN) 822 (Given - Provider: José Miguel Devine, RN)2022 (Given - Provider: Pineda Alexandra, MIREILLE) [...] Zeng RN)0935 (Stop Bag - Provider: Michaelle Zeng RN) methocarbamoL (ROBAXIN) tablet 500 mg 500 mg, oral, 4 times daily, First dose on Sat12/26/23 at 0900 0912 (Given - Provider: José Miguel Devine RN)1414 (Given - Provider: José Miguel Devine RN)1752 (Given - Provider: José Miguel Devine RN)215 (Given - Provider: Pineda Alexandra, MIREILLE) 0945 [...] RN)2022 (Given - Provider: Pineda Alexandra, MIREILLE) 0944 (Given - Provider: Michaelle Zeng, MIREILLE) sodium [...] verify indication for use., Indications: muscle spasm 1946 (Given - Provider: Shira Thomas RN) 0800 [...] Vibha Saeed RN) lidocaine-EPINEPHrine (XYLOCAINE W/EPI) 1 %[id number] injection (CANCELED) As needed, Starting on Sat12/25/23 [...] Shira Thomas RN)233 (Given - Provider: Bandar Bahena, MIREILLE) 0451 (Given - Provider: Bandar Bahena, RN)1227 (Given - Provider: José Miguel Devine RN)1752 (Given - Provider: José Miguel Devine RN) 0944 (Given - Provider: Michaelle Zeng RN) oxyCODONE (ROXICODONE) immediate release tablet 5 [...] RN)1227 (See Alternative - Provider: José Miguel Devine, RN)1752 (See Alternative - Provider: José Miguel Devine RN) 0944 (See Alternative - Provider: Michaelle Zeng RN) sodium chloride 0.9 % flush 3 [...] or prosecute any alcohol or drug abuse patient.[facility] FOR RECORDS PERTAINING TO PATIENTS WHO [...] BE BASED ON THE PRIMARY CLINICAL RECORDS. [facility]. provides no warranty or guarantee of the accuracy or completeness of information in this document.
--- NOTE | 2024-09-16 08:47 | P.CN_ITS ---
Consult Note: HPI Data of Consult Patient: known to practice within the last 3 years Consult date: 11/07/23 Requesting Physician: Danielle Davila NP Primary Care Provider: SUMANTH BECK Consult Narrative Reason for consult: f/u Narrative: Regan Green a pleasant 73 year old male presents for evaluation and manag ement of chronic low back pain, lumbar stenosis, lumbar radiculopathy, myofascial pain. Recent lumbar MRI reveals moderate to severe multilevel stenosis. Patient following with Dr Slick CRAIG in [place], status post L2-[address] Nolen had recommended L4-5 CHANTELLE be completed, which was changed to Caudal targeting L5-S1 due to laminectomy. overall pt received greater than 50% improvement for 3 months. continues to report mild improvement from gabapentin 300mg BID-TID, baclofen 10-20 mg TID PRN, percocet 5/325mg BID PRN moderate to severe pain. Recently underwent right L4/5 L5/S1 TFESI with 80% improvement overall, continues to have moderate to severe axial low back pain. Pain today 3/10 increasing to 7/10 with standing walking twisting bending lifting yardwork, improved with sitting, lying, ice and sleep. cc:: CC: Danielle Davila NP Review of Systems ROS Status of ROS 10 or more systems reviewed and unremark able except as noted in history and below Musculoskeletal Reports: back pain and extremity pain PFSH PFSH Medical History Rheumatoid arthritis ?M06.9 - Rheumatoid arthritis, unspecified (ICD-10) Low back pain ?M54.50 - Low back pain, unspecified (ICD-10) Prostate cancer ?C61 - Malignant neoplasm of prostate (ICD-10) Sacroiliitis, not elsewhere classified ?M46.1 - Sacroiliitis, not elsewhere classified (ICD-10) Surgical History Status post hip surgery ?Z98.890 - Other specified postprocedural states (ICD-10) S/P hernia repair ?Z98.890 - Other specified postprocedural states (ICD-10) ?Z87.19 - Personal history of other diseases of the digestive system (ICD-10) S/P total knee arthroplasty ?Z96.659 - Presence of unspecified artificial knee joint (ICD-10) S/P prostatectomy ?Z90.79 - Acquired absence of other genital organ(s) (ICD-10) Meds Home Medications and Allergies Home Medications ?Medication ?Instructions ?Recorded ?Confirmed ?Type OSCAL WITH D PO .QD 04/18/23 History glucosamine-chondroitin 250 mg-200 2 tab PO .QD 04/18/23 09/07/24 History mg tablet (Osteo Bi-Flex) multivitamin 1 tab PO DAILY 04/18/23 09/07/24 History vitamin B complex (Vitamins B 1 tab PO DAILY 01/22/24 09/07/24 History Complex tablet) diclofenac sodium 75 mg 75 mg PO BID PRN pain #60 tabs 05/14/24 09/07/24 Rx tablet,delayed release cyclobenzaprine 10 mg tablet mg 05/19/24 History oxycodone-acetaminophen 5 mg-325 1 tab PO BID PRN pain #60 tabs 06/18/24 09/07/24 Rx mg tablet (Percocet) gabapentin 600 mg tablet 600 mg PO TID 09/01/24 09/07/24 History Allergies Allergy/AdvReac Type Severity Reaction Status Date / Time No Known Drug Allergies Allergy Verified 09/07/24 07:00 Exam Constitutional Documenting provider has reviewed patient's vital signs: yes Common normals: no apparent distress, oriented x3, healthy appearing, alert and well nourished General appearance: cooperative [facility] Common normals: normocephalic, hearing grossly normal bilaterally and moist oral mucous membranes Head and scalp: normocephalic Eye Common normals: PERRL Pupil: PERRL Neck & C-Spine Common normals: full ROM General: normal visual inspection Chest Common normals: inspection of chest normal Respiratory Common normals: normal respiratory effort, no retractions and no use of accessory muscles Back & Pelvis Lumbar spine/lower back: ROM limited, pain with ROM and straight leg raise negative bilaterally Sacroiliac joints: SI joints normal Other: decreased sensation to right L4,5,S1 strength 4/5 in RLE 5/5 in LLE positive facet loading L3-5 Extremity Common normals: normal to inspection and full ROM Neuro Common normals: oriented x3, CN's II-XII intact bilaterally, moves all extremities, no focal motor deficits, no sensory deficits noted and deep tendon reflexes 2+ bilaterally Sensorium/orientation: alert Motor exam: no movement abnormalities noted and strength abnormal Other: strength 4/5 in RLE, 5/5 in LLE Psych Common normals: mental status grossly normal, thought process normal, cooperative, affect normal, speech normal and activity/motor behavior normal Speech: normal speech Thought process: normal thought process Assessment and Plan Assessment and Plan (1) Lumbar radiculopathy: (2) Lumbar stenosis with neurogenic claudication: (3) Post laminectomy syndrome: (4) Lumbar spondylosis: (5) Chronic prescription opiate use: Assessment and Plan: I feel these medications are improving the patient's quality of life and allow them to tolerate activities of daily living as well as participate in recreational activity.? The patient does not report intolerable side effects. The patient is NOT opioid naive and non-pharmacologic and non-opioid treatment has failed to significantly relieve the patient's pain and improve functionali ty. The patient has a diagnosis that is related to a somatic or visceral pain etiology. ? ?? I reviewed with the patient the potential risks and side effects with the use of? opioid medications including but not limited to respiratory depression,? sedation, and even . Within the last 12 months I have verified the patient has access to naloxone should? these effects occur. The patient was advised to let? their family know they had Naloxone in case they would need to administer? the medication. I advised the patient to avoid the use of any other? sedation substances including alcohol, THC, and benzodiazepines while? taking opioid medications due to the risk of compounding side effects and? detrimental outcomes. within the last 12 months I have reviewed the [employer], pain treatment agreement and urine drug screen.? ?? A drug screen was completed within the last year, and no aberrancies were noted regarding their use of controlled substances. The patient understands they are subject to the terms and conditions of the pain contract that they have signed. ? ?? I have checked an [facility] report on this patient today and there are no aberrancies noted in the prescribing history.? (6) Sacroiliitis: (7) Rheumatoid arthritis: Plan defer bilateral L3-4 L4-5 facet medial branch block x2 working towards RFA for axial low back pain secondary to lumbar spondylosis continue f/u with NS declining narcan, has available at home pt weaning off of gabapentin as NC pain and symptoms well controlled, currently taking 300mg BID to TID, encouraged to wean slowly and not to abruptly stop. will take 300mg less daily every 3-4 days as tolerated and if pain increases he will add back 300mg. pt to call for refill and discuss dosing and response continue diclofenac 75mg BID PRN pain, flexeril 10-20mg TID PRN pain/spasms, percocet 5-325mg BID PRN moderate to severe pain. risks vs benefits reviewed, reporting functional improvement without side effects f/u 3 months, sooner if needed
== END 2024-09-16 08:24 | disposition home or self-care (01) ==
PROVIDERS: PCP Family Medicine; Visit Provider Nurse Practitioner
DX: M54.16 Radiculopathy, lumbar region (principal); M48.062 Spinal stenosis, lumbar region with neurogenic claudication; M96.1 Postlaminectomy syndrome, not elsewhere classified; M47.816 Spondylosis without myelopathy or radiculopathy, lumbar region; Z79.891 Long term (current) use of opiate analgesic; M46.1 Sacroiliitis, not elsewhere classified; M06.9 Rheumatoid arthritis, unspecified
CPT/HCPCS: G0463

== ENCOUNTER 2024-12-16 08:22 | Outpatient (OUT) | payer MEDICARE, OTHER, SELFPAY ==
--- OUTSIDE RECORDS SUMMARY | 2024-12-16 08:36 | XMS_ITS | CCD ---
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 and no apparent distress. NEURO PSYCH: Patient oriented to person, place, and time. Mood pleasant. Benign affect. MUSCULOSKELETAL VISUAL INSPECTION CERVICAL: WNL THORACIC: WNL LUMBAR: WNL MOTOR: 5/5 in all muscle groups. SENSORY: Normal sensory exam Dec (more content not included)... Normal [facility] CBC AND AUTO DIFFon 08-25-20 24 ABSOLUTE BASOPHIL 0.1 X10E9/L Normal 0.0-0.2 [facility] Comment on above: Performed By: #### T HYR, 98595-8, CMP, CBCA #### [facility] ([id number]) [address], [address] [place] [address] ABSOLUTE NEUTROPHIL 3.7 X10E9/L Normal 1.5-6.6 [facility] Comment on above: Performed By: #### T MACIER, 85154-9, CMP, CBCA #### [facility] ([id number]) [address], [address] [place] [address] Basophils/100 WBC (Bld) 1.1 % Normal [facility] Comment on above: Performed By: #### T MACIER, 57093-1, CMP, CBCA #### [facility] ([id number]) [address], [address] [place] [address] Eosinophils (Bld) [#/Vol] 0.2 10*3/uL Normal 0.0-0.4 [facility] Comment on above: Performed By: #### T HYR, 62127-0, CMP, CBCA #### [facility] ([id number]) [address], [address] [place] [address] Eosinophils/100 WBC (Bld) 2.6 % Normal [facility] Comment on above: Performed By: #### T HYR, 86467-7, CMP, CBCA #### [facility] ([id number]) [address], [address] [place] [address] Erythrocyte distribution width (RBC) [Ratio] 13.5 % Normal 11.5-15.0 [facility] Comment on above: Performed By: #### T HYR, 03226-6, CMP, CBCA #### [facility] ([id number]) [address], [address] [place] [address] Hematocrit (Bld) [Volume fraction] 44.7 % Normal 39-49 [facility] Comment on above: Performed By: #### T HYR, 22906-1, CMP, CBCA #### [facility] ([id number]) [address], [facility] [address] [place] [address] Hemoglobin (Bld) [Mass/Vol] 15.0 g/dL Normal 13.0-17.0 [facility] Comment on above: Performed By: #### T HYR, 27298-1, CMP, CBCA #### [facility] ([id number]) [address] [address] [place] [address] Lymphocytes (Bld) [#/Vol] 1.5 10*3/uL Normal 1.0-3.5 [facility] Comment on above: Performed By: #### T HYR, 94895-2, CMP, CBCA #### [facility] ([id number]) [address] [address] [place] [address] Lymphocytes/100 WBC (Bld) 23.5 % Normal [facility] Comment on above: Performed By: #### T HYR, 31128-9, CMP, CBCA #### [facility] ([id number]) [address] [address] [place] [address] MCH (RBC) [Entitic mass] 32.1 pg Normal 27-34 [facility] Comment on above: Performed By: #### T HYR, 29123-7, CMP, CBCA #### [facility] ([id number]) [address] [address] [place] [address] MCHC (RBC) [Mass/Vol] 33.6 g/dL Normal 32-36 [facility] Comment on above: Performed By: #### T HYR, 86824-7, CMP, CBCA #### [facility] ([id number]) [address], [address] [place] [address] MCV (RBC) [Entitic vol] 96 fL Normal 80-100 [facility] Comment on above: Performed By: #### Morales LIU, 99720-0, CMP, CBCA #### [facility] ([id number]) [address], [address] [place] [address] Monocytes (Bld) [#/Vol] 0.8 10*3/uL Normal 0-0.9 [facility] Comment on above: Performed By: #### Morales LIU, 05574-1, CMP, CBCA #### [facility] ([id number]) [address], [facility] [address] [place] [address] Monocytes/100 WBC (Bld) 13.1 % Normal [facility] Comment on above: Performed By: #### Morales LIU, 44271-4, CMP, CBCA #### [facility] ([id number]) [address], [facility] [address] [place] [address] Neutrophils/100 WBC (Bld) 59.7 % Normal [facility] Comment on above: Performed By: #### Morales LIU, 82627-9, CMP, CBCA #### [facility] ([id number]) [address], [address] [place] [address] Platelet mean volume (Bld) [Entitic vol] 7.5 fL Normal 7-12 [facility] Comment on above: Performed By: #### T NOE, 05693-3, CMP, CBCA #### [facility] ([id number]) [address], [facility] [address] [place] [address] Platelets (Bld) [#/Vol] 246 10*3/uL Normal 150-450 [facility] Comment on above: Performed By: #### Morales LIU, 77447-8, CMP, CBCA #### [facility] ([id number]) [address], [address] [place] [address] RBC COUNT 4.68 X10E12/L Normal 4.10-5.70 [facility] Comment on above: Performed By: #### T NOE, 64900-6, CMP, CBCA #### [facility] ([id number]) [address], [address] [place] [address] WBC (Bld) [#/Vol] 6.2 10*3/uL Normal 4.0-11.0 [facility] Comment on above: Performed By: #### Morales LIU, 55808-2, CMP, CBCA #### [facility] ([id number]) [address], [address] [place] [address] COMPREHENSIVE METABOLIC PANE Sandoval 08-25-2024 Albumin [Mass/Vol] 4.6 g/dL Normal 3.2-5.3 [facility] Comment on above: Performed By: #### Morales LIU, 85804-8, CMP, CBCA #### [facility] ([id number]) [address], [address] [place] [address] ALP [Catalytic activity/Vol] 77 U/L Normal 39-130 [facility] Comment on above: Performed By: #### Morales LIU, 65281-1, CMP, CBCA #### [facility] ([id number]) [address], [address] [place] [address] ALT [Catalytic activity/Vol] 36 U/L Normal 0-40 [facility] Comment on above: Performed By: #### T NEO, 81724-2, CMP, CBCA #### [facility] ([id number]) [address], [address] [place] [address] Anion gap [Moles/Vol] 11 mmol/L Normal 5-15 [facility] Comment on above: Performed By: #### T HYR, 43497-9, CMP, CBCA #### [facility] ([id number]) [address], [address] [place] [address] AST [Catalytic activity/Vol] 31 U/L Normal 0-41 [facility] Comment on above: Performed By: #### T HYR, 28895-5, CMP, CBCA #### [facility] ([id number]) [address], [address] [place] [address] Bilirubin [Mass/Vol] 0.5 mg/dL Normal 0.3-1.2 [facility] Comment on above: Performed By: #### T NOE, 35202-6, CMP, CBCA #### [facility] ([id number]) [address], [address] [place] [address] Calcium [Mass/Vol] 9.3 mg/dL Normal 8.5-10.5 [facility] Comment on above: Performed By: #### T NOE, 02850-6, CMP, CBCA #### [facility] ([id number]) [address], [address] [place] [address] Chloride [Moles/Vol] 104 mmol/L Normal 98-109 [facility] Comment on above: Performed By: #### T NOE, 58748-6, CMP, CBCA #### [facility] ([id number]) [address], [address] [place] [address] CO2 [Moles/Vol] 27 mmol/L Normal 22-32 [facility] Comment on above: Performed By: #### T HYR, 78814-5, CMP, CBCA #### [facility] ([id number]) [address], [address] [place] [address] Creatinine [Mass/Vol] 0.68 mg/dL Normal 0.60-1.30 [facility] Comment on above: Result Comment: METH OD TRACEABLE TO IDMS STANDARD Performed By: #### T HYR, 41549-9, CMP, CBCA #### [facility] ([id number]) [address], [address] [place] [address] eGFR (CKD-EPI) NON-RACE DEPENDENT >90 Normal >59 [facility] Comment on above: Result Comment: Reported eGFR is based on the CKD-EPI 2020 equation that does not use a race coefficient. Performed By: #### T NOE, 94838-8, CMP, CBCA #### [facility] ([id number]) [address], [address] [place] [address] Glucose [Mass/Vol] 84 mg/dL Normal 65-99 [facility] Comment on above: Performed By: #### Morales LIU, 15035-6, CMP, CBCA #### [facility] ([id number]) [address], [address] [place] [address] Potassium [Moles/Vol] 5.0 mmol/L Normal 3.5-5.0 [facility] Comment on above: Performed By: #### Morales LIU, 22467-1, CMP, CBCA #### [facility] ([id number]) [address], [address] [place] [address] Protein [Mass/Vol] 7.2 g/dL Normal 6.0-8.0 [facility] Comment on above: Performed By: #### Morales LIU, 06830-5, CMP, CBCA #### [facility] ([id number]) [address], [address] [place] [address] Sodium [Moles/Vol] 142 mmol/L Normal 134-146 [facility] Comment on above: Performed By: #### T NOE, 23570-7, CMP, CBCA #### [facility] ([id number]) [address], [address] [place] [address] Urea nitrogen [Mass/Vol] 15 mg/dL Normal 5-27 [facility] Comment on above: Performed By: #### Morales LIU, 23582-5, CMP, CBCA #### [facility] ([id number]) [address], [address] [place] [address] Lipid 1996 panelon 4 Cholesterol [Mass/Vol] 191 mg/dL Normal 150-200 [facility] Comment on above: Performed By: #### Morales LIU, 12393-0, CMP, CBCA #### [facility] ([id number]) [address], [address] [place] [address] Cholesterol in HDL [Mass/Vol] 54 mg/dL Normal >39 [facility] Comment on above: Result Comment: HDL <40 mg/dL - High Risk HDL > or = 40mg/dL- Desirable HDL >60 mg/dL - Negative Risk Performed By: #### Morales LIU, 19198-5, CMP, CBCA #### [facility] ([id number]) [address], [address] [place] [address] Cholesterol in LDL [Mass/Vol] 127 mg/dL Normal <130 [facility] Comment on above: Result Comment: LDL <100 mg/dL - Desirable LDL >160 mg/dL - High Risk Performed By: #### Morales LIU, 76078-9, CMP, CBCA #### [facility] ([id number]) [address], [address] [place] [address] Cholesterol in VLDL [Mass/Vol] 10 mg/dL Normal 0-30 [facility] Comment on above: Performed By: #### Morales LIU, 82317-8, CMP, CBCA #### [facility] ([id number]) [address] [address] [place] [address] CHOLESTEROL:HDL 3.5 Normal 1.0-5.0 [facility] Comment on above: Performed By: #### T NOE, 06930-9, CMP, CBCA #### [facility] ([id number]) [address], [facility] [address] [place] [address] Triglyceride [Mass/Vol] 50 mg/dL Normal 27-150 [facility] Comment on above: Performed By: #### T NOE, 36112-6, CMP, CBCA #### [facility] ([id number]) [address] [address] THYROID PROFILEon 08-25-2024 Free T4 [Mass/Vol] 0.93 ng/dL Normal 0.61-1.60 [facility] Comment on above: Performed By: #### T NOE, 39770-9, CMP, CBCA #### [facility] ([id number]) [address] [address] [place] [address] TSH 6.45 uIU/mL High 0.49-4.67 [facility] Comment on above: Performed By: #### T NOE, 55722-1, CMP, CBCA #### [facility] ([id number]) [address] [address] Prostate specific Ag [Mass/V ol]on 04-28-2024 PROSTATIC SPEC ANT <0.01 Normal 0.00-4.00 [facility] Comment on above: Result Comment: The method used for this test is [employer] DXI chemiluminescent immunoassay. Values obtained by different assay methods cannot be used interchangeably. Performed By: #### 2 857-1 #### [facility] ([id number]) [address] [address] [place] [address] XR SPINE LUMBAR 2 OR 3 VWSon 06-21-2024 XR SPINE LUMBAR 2 OR 3 VWS [...] Juarez Granados MD on 04/24/2024 2:36 PM [facility] MR LUMBAR SPINE WO CONTon MR [...] 8 mm, previously 5 mm. Finalized by Johnathan Matute on 04/22/2024 2:10 PM Normal [facility] XR SPINE LUMB BENDING ONLY [...] Menjivar MD on 02/13/2024 2:22 PM Normal [facility] BASIC METABOLIC PANLon 12-27 Anion gap [Moles/Vol] 8 mmol/L Normal 5-15 [facility] Comment on above: Performed By: #### C ELISA, BMP, , 76525-1 ####[facility] ([id number])[address], [address], [place] [address] Calcium [Mass/Vol] 9.2 mg/dL Normal 8.5-10.5 [facility] Comment on above: Performed By: #### C BC, BMP, , 98835-9 ####[facility] ([id number])[address], [address], [place] [address] Chloride [Moles/Vol] 103 mmol/L Normal 98-109 [facility] Comment on above: Performed By: #### Sujey PÉREZ, BMP, , 80709-9 ####[facility] ([id number])[address], [address], [place] [address] CO2 [Moles/Vol] 28 mmol/L Normal 22-32 [facility] Comment on above: Performed By: #### C ELISA, BMP, , 57733-1 ####[facility] ([id number])[address] [address], [place] [address] Creatinine [Mass/Vol] 0.77 mg/dL Normal 0.60-1.30 [facility] Comment on above: Result Comment: METH OD TRACEABLE TO IDMS STANDARD Performed By: #### C BC, BMP, , 56374-7 ####[facility] ([id number])[address] [address], [place] [address] eGFR (CKD-EPI) NON-RACE DEPENDENT >90 Normal >59 [facility] Comment on above: Result Comment: Reported eGFR is based on the CKD-EPI 2020 equation that does not use a race coefficient. Performed By: #### C BC, BMP, , 95083-9 ####[facility] ([id number])[address], [place] [address] Glucose [Mass/Vol] 110 mg/dL High 65-99 [facility] Comment on above: Performed By: #### Sujey PÉREZ, BMP, , 85424-9 ####[facility] ([id number])[address], [address] [place] [address] Potassium [Moles/Vol] 4.3 mmol/L Normal 3.5-5.0 [facility] Comment on above: Performed By: #### Sujey PÉREZ, TIP, , 12173-6 ####[facility] ([id number])[address], [address] [place] [address] Sodium [Moles/Vol] 139 mmol/L Normal 134-146 [facility] Comment on above: Performed By: #### Sujey PÉRZE, TIP, , 38570-8 ####[facility] ([id number])[address], [address] [place] [address] Urea nitrogen [Mass/Vol] 14 mg/dL Normal 5-27 [facility] Comment on above: Performed By: #### Sujey PÉREZ, TIP, , 72634-2 ####[facility] ([id number])[address], [address] [place] [address] Basic Metabolic Panelon -2 Anion gap [Moles/Vol] 8 mmol/L 5 - 15 mmol/L [facility] Calcium [Mass/Vol] 9.2 mg/dL 8.5 - 10. 5 mg/dL [facility] Chloride [Moles/Vol] 103 mmol/L 98 - 10 9 mmol/L [facility] CO2 [Moles/Vol] 28 mmol/L 22 - 32 mmol/L [facility] Creatinine [Mass/Vol] 0.77 mg/dL 0.60 - 1.30 mg/dL [facility] Comment on above: METHOD TRACEABLE TO IDMS STANDARD eGFR (CKD-EPI)non-race dependent - PINF [facility] Comment on above: Reported eGFR is based on the CKD-EPI 2020 equation that does not use a race coefficient. Glucose [Mass/Vol] 110 mg/dL High 65 - 99 mg/dL [facility] Interpretation and review of laboratory results Abnormal [facility] Potassium [Moles/Vol] 4.3 mmol/L 3.5 - 5.0 mmol/L [facility] Sodium [Moles/Vol] 139 mmol/L 134 - 146 mmol/L [facility] Urea nitrogen [Mass/Vol] 14 mg/dL 5 - 27 mg/dL [facility] CBC without diffon Erythrocyte distribution width (RBC) [Ratio] 13.3 % 11.5 - 15.0 % [facility] Hematocrit (Bld) [Volume fraction] 36.3 % Low 39 - 49 % [facility] Hemoglobin (Bld) [Mass/Vol] 12.4 g/dL Low 13.0 - 17.0 g/dL [facility] Interpretation and review of laboratory results Abnormal [facility] MCH (RBC) [Entitic mass] 30.2 pg 27 - 34 pg [facility] MCHC (RBC) [Mass/Vol] 34.2 g/dL 32 - 36 g/dL P [facility] MCV (RBC) [Entitic vol] 88 fL 80 - 100 fL [facility] Platelet mean volume (Bld) [Entitic vol] 7.2 fL 7 - 12 fL [facility] Platelets (Bld) [#/Vol] 243 10*3/uL [facility] RBC (Bld) [#/Vol] 4.12 10*6/uL [facility] WBC corrected for nucl RBC Auto (Bld) [#/Vol] 11.6 High [facility] COMPLETE BLOOD COUNTon 12-27 Erythrocyte distribution width (RBC) [Ratio] 13.3 % Normal 11.5-15.0 [facility] Comment on above: Performed By: #### C BC, BMP, 47931-7, 79633-9 ####[facility] ([id number])[address] [address], [place] [address] Hematocrit (Bld) [Volume fraction] 36.3 % Low 39-49 [facility] Comment on above: Performed By: #### C BC, BMP, , 30497-4 ####[facility] ([id number])[address] [address] [place] [address] Hemoglobin (Bld) [Mass/Vol] 12.4 g/dL Low 13.0-17.0 [facility] Comment on above: Performed By: #### C BC, BMP, , 64151-9 ####[facility] ([id number])[address] [address] [place] [address] MCH (RBC) [Entitic mass] 30.2 pg Normal 27-34 [facility] Comment on above: Performed By: #### Sujey BC, BMP, , ####[facility] ([id number])[address] [address] [place] [address] MCHC (RBC) [Mass/Vol] 34.2 g/dL Normal 32-36 [facility] Comment on above: Performed By: #### Sujey BC, BMP, , 53430-2 ####[facility] ([id number])[address] [address] [place] [address] MCV (RBC) [Entitic vol] 88 fL Normal 80-100 [facility] Comment on above: Performed By: #### C BC, BMP, , 08401-9 ####[facility] ([id number])[address] [address] [place] [address], [place] [address] Platelet mean volume (Bld) [Entitic vol] 7.2 fL Normal 7-12 [facility] Comment on above: Performed By: #### C BC, BMP, , 07737-7 ####[facility] ([id number])[address], [address], [place] [address] Platelets (Bld) [#/Vol] 243 10*3/uL Normal 150-450 [facility] Comment on above: Performed By: #### Sujey PÉREZ, TIP, , 06786-2 ####[facility] ([id number])[address], [address], [place] [address] RBC COUNT 4.12 X10E12/L Normal 4.10-5.70 [facility] Comment on above: Performed By: #### TIP CADET, , 80285-7 ####[facility] ([id number])[address], [address] [place] [address] WBC (Bld) [#/Vol] 11.6 10*3/uL High 4.0-11.0 [facility] Comment on above: Performed By: #### TIP CADET, , 42647-8 ####[facility] ([id number])[address], [address] [place] [address] ECG 12 leadon 12-27-[address] [facility] Glucose Glucometer (BldC) [M ass/Vol]on 12-27-2023 Glucose [Mass/Vol] 98 mg/dL 65 - 99 mg/dL [facility] Glucose [Mass/Vol] 98 mg/dL Normal 65-99 [facility] MAGNESIUMon 12-27-2023 Magnesium [Mass/Vol] 1.9 mg/dL Normal 1.8-2.6 [facility] Comment on above: Performed By: #### Sujey PÉREZ, TIP, , 61220-2 ####[facility] ([id number])[address], [place] [address] Magnesiumon 12-27-2023 Magnesium [Mass/Vol] 1.9 mg/dL 1.8 - 2 .6 mg/dL [facility] No Panel Informationon 12-[address] [facility] TROPONIN Ion 12-27-2023 Troponin I.cardiac [Mass/Vol] ng/mL Normal 0.00-0.04 [facility] Comment on above: Performed By: #### Sujey PÉREZ, BMP, 52510-4, 31402-4 ####[facility] ([id number])[address], [place] [address] Troponin Ion 12-27-2023 Troponin I.cardiac [Mass/Vol] ng/mL 0.00 - 0.04 ng/mL [facility] Troponin I.cardiac [Mass/Vol ]on 12-27-[address] [facility] BASIC METABOLIC PANLon 12-26 Anion gap [Moles/Vol] 9 mmol/L Normal 5-15 [facility] Comment on above: Performed By: #### Sujey PÉREZ, BMP #### [facility] ([id number]) [address] [place] [address] Calcium [Mass/Vol] 9.4 mg/dL Normal 8.5-10.5 [facility] Comment on above: Performed By: #### Sujey PÉREZ, BMP #### [facility] ([id number]) [address] [place] [address] Chloride [Moles/Vol] 106 mmol/L Normal 98-109 [facility] Comment on above: Performed By: #### Sujey PÉREZ, BMP #### [facility] ([id number]) [address] [place] [address] CO2 [Moles/Vol] 25 mmol/L Normal 22-32 [facility] Comment on above: Performed By: #### Sujey PÉREZ, BMP #### [facility] ([id number]) [address] [place] [address] Creatinine [Mass/Vol] 0.63 mg/dL Normal 0.60-1.30 [facility] Comment on above: Result Comment: METH OD TRACEABLE TO IDMS STANDARD Performed By: #### Sujey PÉREZ, BMP #### [facility] ([id number]) [address] [place] [address] eGFR (CKD-EPI) NON-RACE DEPENDENT >90 Normal >59 [facility] Comment on above: Result Comment: Reported eGFR is based on the CKD-EPI 2020 equation that does not use a race coefficient. Performed By: #### Sujey PÉRZE, BMP #### [facility] ([id number]) [address] [place] [address] Glucose [Mass/Vol] 140 mg/dL High 65-99 [facility] Comment on above: Performed By: #### Sujey PÉREZ, BMP #### [facility] ([id number]) [address] [place] [address] Potassium [Moles/Vol] 4.6 mmol/L Normal 3.5-5.0 [facility] Comment on above: Performed By: #### Sujey PÉREZ, BMP #### [facility] ([id number]) [address] [place] [address] Sodium [Moles/Vol] 140 mmol/L Normal 134-146 [facility] Comment on above: Performed By: #### Sujey PÉREZ, BMP #### [facility] ([id number]) [address], [address] [place] [address] Urea nitrogen [Mass/Vol] 17 mg/dL Normal 5-27 [facility] Comment on above: Performed By: #### Sujey PÉREZ, BMP #### [facility] ([id number]) [address], [address] [place] [address] Basic Metabolic Panelon -2 Anion gap [Moles/Vol] 9 mmol/L 5 - 15 mmol/L [facility] Calcium [Mass/Vol] 9.4 mg/dL 8.5 - 10. 5 mg/dL [facility] Chloride [Moles/Vol] 106 mmol/L 98 - 10 9 mmol/L [facility] CO2 [Moles/Vol] 25 mmol/L 22 - 32 mmol/L [facility] Creatinine [Mass/Vol] 0.63 mg/dL 0.60 - 1.30 mg/dL [facility] Comment on above: METHOD TRACEABLE TO [facility] STANDARD eGFR (CKD-EPI)non-race dependent - PINF [facility] Comment on above: Reported eGFR is based on the CKD-EPI 2020 equation that does not use a race coefficient. Glucose [Mass/Vol] 140 mg/dL High 65 - 99 mg/dL [facility] Interpretation and review of laboratory results Abnormal [facility] Potassium [Moles/Vol] 4.6 mmol/L 3.5 - 5.0 mmol/L [facility] Sodium [Moles/Vol] 140 mmol/L 134 - 146 mmol/L [facility] Urea nitrogen [Mass/Vol] 17 mg/dL 5 - 27 mg/dL [facility] CBC without diffon Erythrocyte distribution width (RBC) [Ratio] 13.5 % 11.5 - 15.0 % [facility] Hematocrit (Bld) [Volume fraction] 37.5 % Low 39 - 49 % [facility] Hemoglobin (Bld) [Mass/Vol] 12.7 g/dL Low 13.0 - 17.0 g/dL [facility] Interpretation and review of laboratory results Abnormal [facility] MCH (RBC) [Entitic mass] 30.0 pg 27 - 34 pg [facility] MCHC (RBC) [Mass/Vol] 33.9 g/dL 32 - 36 g/dL [facility] MCV (RBC) [Entitic vol] 89 fL 80 - 100 fL [facility] Platelet mean volume (Bld) [Entitic vol] 7.2 fL 7 - 12 fL [facility] Platelets (Bld) [#/Vol] 264 10*3/uL [facility] RBC (Bld) [#/Vol] 4.23 10*6/uL [facility] WBC corrected for nucl RBC Auto (Bld) [#/Vol] 12.[address] [facility] COMPLETE BLOOD COUNTon 12-26 Erythrocyte distribution width (RBC) [Ratio] 13.5 % Normal 11.5-15.0 [facility] Comment on above: Performed By: #### C ELISA, BMP #### [facility] ([id number]) [address], [address] [place] [address] Hematocrit (Bld) [Volume fraction] 37.5 % Low 39-49 [facility] Comment on above: Performed By: #### C ELISA, BMP #### [facility] ([id number]) [address], [address] [place] [address] Hemoglobin (Bld) [Mass/Vol] 12.7 g/dL Low 13.0-17.0 [facility] Comment on above: Performed By: #### C ELISA, BMP #### [facility] ([id number]) [address], [address] [place] [address] MCH (RBC) [Entitic mass] 30.0 pg Normal 27-34 [facility] Comment on above: Performed By: #### C ELISA, BMP #### [facility] ([id number]) [address], [address] [place] [address] MCHC (RBC) [Mass/Vol] 33.9 g/dL Normal 32-36 [facility] Comment on above: Performed By: #### C ELISA, BMP #### [facility] ([id number]) [address], [address] [place] [address] MCV (RBC) [Entitic vol] 89 fL Normal 80-100 [facility] Comment on above: Performed By: #### C ELISA, BMP #### [facility] ([id number]) [address], [address] [place] [address] Platelet mean volume (Bld) [Entitic vol] 7.2 fL Normal 7-12 [facility] Comment on above: Performed By: #### C BC, BMP #### [facility] ([id number]) [address], [address] [place] [address] Platelets (Bld) [#/Vol] 264 10*3/uL Normal 150-450 [facility] Comment on above: Performed By: #### C BC, BMP #### [facility] ([id number]) [address], [address] [place] [address] RBC COUNT 4.23 X10E12/L Normal 4.10-5.70 [facility] Comment on above: Performed By: #### C BC, BMP #### [facility] ([id number]) [address], [address] [place] [address] WBC (Bld) [#/Vol] 12.6 10*3/uL High 4.0-11.0 [facility] Comment on above: Performed By: #### C BC, BMP #### [facility] ([id number]) [address], [address] [place] [address] ABO Rh Repeaton 12-25-2023 ABO AB [facility] [...] Miguel Avelar on 12/25/2023 4:51 PM Normal [facility] RF Guidance for injection of Spine [...] 4:51 PM [facility] Radiology Study observation (narrative) [facility] RF Guidance for injection of Spine facet jointOrdered By: José Miguel Avelar on 12-25-[address] [facility] Work Phone: Bacteria identified Cx Nom ( U)on 12-21-2023 Service comment (Unsp spec) [Interp] <10,000 ORGANISMS/ML NORMAL URO GENITAL CORINA [facility] ABO Rh Repeaton 12-20-2023 ABO AB [facility] Rh Nom (Bld) Positive [facility] APTTon 12-20-2023 aPTT Coag (PPP) [Time] 31 s [facility] BASIC METABOLIC PANLon 12-20 Anion gap [Moles/Vol] 13 mmol/L Normal 5-15 [facility] Comment on above: Performed By: #### C BCA, PINR, 27089-0, BMP #### [facility] ([id number]) [address], [address] [place] [address] Calcium [Mass/Vol] 10.1 mg/dL Normal 8.5-10.5 [facility] Comment on above: Performed By: #### C BCA, PINR, 54533-3, BMP #### [facility] ([id number]) [address], [address] [place] [address] Chloride [Moles/Vol] 103 mmol/L Normal 98-109 [facility] Comment on above: Performed By: #### C ALEN, PINR, 60555-3, BMP #### [facility] ([id number]) [address], [address] [place] [address] CO2 [Moles/Vol] 25 mmol/L Normal 22-32 [facility] Comment on above: Performed By: #### C ALEN, PINR, 13381-4, BMP #### [facility] ([id number]) [address], [address] [place] [address] Creatinine [Mass/Vol] 0.76 mg/dL Normal 0.60-1.30 [facility] Comment on above: Result Comment: METH OD TRACEABLE TO IDMS STANDARD Performed By: #### C ALEN, PINR, 88896-2, BMP #### [facility] ([id number]) [address], [address] [place] [address] eGFR (CKD-EPI) NON-RACE DEPENDENT >90 Normal >59 [facility] Comment on above: Result Comment: Reported eGFR is based on the CKD-EPI 2020 equation that does not use a race coefficient. Performed By: #### C ALEN, PINR, 57100-7, BMP #### [facility] ([id number]) [address], [address] [place] [address] Glucose [Mass/Vol] 85 mg/dL Normal 65-99 [facility] Comment on above: Performed By: #### C ALEN, PINR, 24221-0, BMP #### [facility] ([id number]) [address], [address] [place] [address] Potassium [Moles/Vol] 5.0 mmol/L Normal 3.5-5.0 [facility] Comment on above: Result Comment: SPEC IMEN HEMOLYZED, RESULTS INCREASED MODERATELY HEMOLYZED Performed By: #### C BCA, PINR, 65113-3, BMP #### [facility] ([id number]) [address], [address] [place] [address] Sodium [Moles/Vol] 141 mmol/L Normal 134-146 [facility] Comment on above: Performed By: #### C BCA, PINR, 25776-6, BMP #### [facility] ([id number]) [address], [address] [place] [address] Urea nitrogen [Mass/Vol] 20 mg/dL Normal 5-27 [facility] Comment on above: Performed By: #### C BCA, PINR, 79846-8, BMP #### [facility] ([id number]) [address], [address] [place] [address] Basic Metabolic Panelon 12-05 Anion gap [Moles/Vol] 13 mmol/L 5 - 15 mmol/L [facility] Calcium [Mass/Vol] 10.1 mg/dL 8.5 - 10. 5 mg/dL [facility] Chloride [Moles/Vol] 103 mmol/L 98 - 10 9 mmol/L [facility] CO2 [Moles/Vol] 25 mmol/L 22 - 32 mmol/L [facility] Creatinine [Mass/Vol] 0.76 mg/dL 0.60 - 1.30 mg/dL [facility] Comment on above: METHOD TRACEABLE TO IDMS STANDARD eGFR (CKD-EPI)non-race dependent - PINF [facility] Comment on above: Reported eGFR is based on the CKD-EPI 2020 equation that does not use a race coefficient. Glucose [Mass/Vol] 85 mg/dL 65 - 99 mg/dL [facility] Potassium [Moles/Vol] 5.0 mmol/L 3.5 - 5.0 mmol/L [facility] Comment on above: SPECIMEN HEMOLYZED, RESULTS INCREASED MODERATELY HEMOLYZED Sodium [Moles/Vol] 141 mmol/L 134 - 146 mmol/L [facility] Urea nitrogen [Mass/Vol] 20 mg/dL 5 - 27 mg/dL [facility] CBC AND AUTO DIFFon 12-20-19 24 ABSOLUTE BASOPHIL 0.1 X10E9/L Normal 0.0-0.2 [facility] Comment on above: Performed By: #### C ALEN, PINR, 00622-2, BMP #### [facility] ([id number]) [address], [address] [place] [address] ABSOLUTE NEUTROPHIL 4.4 X10E9/L Normal 1.5-6.6 [facility] Comment on above: Performed By: #### Sujey LOWRY PINR, 98082-8, BMP #### [facility] ([id number]) [address], [address] [place] [address] Basophils/100 WBC (Bld) 0.9 % Normal [facility] Comment on above: Performed By: #### Sujey LOWRY, PINR, 45100-2, BMP #### [facility] ([id number]) [address], [address] [place] [address] Eosinophils (Bld) [#/Vol] 0.2 10*3/uL Normal 0.0-0.4 [facility] Comment on above: Performed By: #### Sujey LOWRY, PINR, 53036-2, BMP #### [facility] ([id number]) [address], [address] [place] [address] Eosinophils/100 WBC (Bld) 2.6 % Normal [facility] Comment on above: Performed By: #### Sujey LOWRY, PINR, 62248-1, BMP #### [facility] ([id number]) [address], [address] [place] [address] Erythrocyte distribution width (RBC) [Ratio] 13.6 % Normal 11.5-15.0 [facility] Comment on above: Performed By: #### Sujey LOWRY, PINR, 76036-6, BMP #### [facility] ([id number]) [address] [place] [address] Hematocrit (Bld) [Volume fraction] 45.1 % Normal 39-49 [facility] Comment on above: Performed By: #### C ALEN, PINR, 19274-5, BMP #### [facility] ([id number]) [address] [place] [address] Hemoglobin (Bld) [Mass/Vol] 15.5 g/dL Normal 13.0-17.0 [facility] Comment on above: Performed By: #### C ALEN PINR, 69928-7, BMP #### [facility] ([id number]) [address] [address] Lymphocytes (Bld) [#/Vol] 1.5 10*3/uL Normal 1.0-3.5 [facility] Comment on above: Performed By: #### C ALEN, PINR, 71781-5, BMP #### [facility] ([id number]) [address] [address] Lymphocytes/100 WBC (Bld) 21.7 % Normal [facility] Comment on above: Performed By: #### Sujey LOWRY, PINR, 63652-1, BMP #### [facility] ([id number]) [address] [place] [address] MCH (RBC) [Entitic mass] 30.2 pg Normal 27-34 [facility] Comment on above: Performed By: #### C BCA, PINR, 66795-7, BMP #### [facility] ([id number]) [address] [place] [address] MCHC (RBC) [Mass/Vol] 34.4 g/dL Normal 32-36 [facility] Comment on above: Performed By: #### C BCA, PINR, 42859-1, BMP #### [facility] ([id number]) [address], [address] [place] [address] MCV (RBC) [Entitic vol] 88 fL Normal 80-100 [facility] Comment on above: Performed By: #### C ALEN, PINR, 47218-1, BMP #### [facility] ([id number]) [address], [address] [place] [address] Monocytes (Bld) [#/Vol] 1.0 10*3/uL High 0-0.9 [facility] Comment on above: Performed By: #### C ALEN, PINR, 36633-5, BMP #### [facility] ([id number]) [address], [address] [place] [address] Monocytes/100 WBC (Bld) 13.6 % Normal [facility] Comment on above: Performed By: #### C ALEN, PINR, 34500-2, BMP #### [facility] ([id number]) [address], [address] [place] [address] Neutrophils/100 WBC (Bld) 61.2 % Normal [facility] Comment on above: Performed By: #### C BCA, PINR, 26371-9, BMP #### [facility] ([id number]) [address], [address] [place] [address] Platelet mean volume (Bld) [Entitic vol] 7.8 fL Normal 7-12 [facility] Comment on above: Performed By: #### C BCA, PINR, 63598-7, BMP #### [facility] ([id number]) [address], [address] [place] [address] Platelets (Bld) [#/Vol] 269 10*3/uL Normal 150-450 [facility] Comment on above: Performed By: #### C BCA, PINR, 57510-3, BMP #### [facility] ([id number]) [address], [address] [place] [address] RBC COUNT 5.12 X10E12/L Normal 4.10-5.70 [facility] Comment on above: Performed By: #### C BCA, PINR, 20693-0, BMP #### [facility] ([id number]) [address], [address] [place] [address] WBC (Bld) [#/Vol] 7.1 10*3/uL Normal 4.0-11.0 [facility] Comment on above: Performed By: #### C BCA, PINR, 33310-3, BMP #### [facility] ([id number]) [address], [address] [place] [address] CBC auto differentialon 12-05 Basophils (Bld) [#/Vol] 0.1 10*3/uL [facility] Basophils/100 WBC (Bld) 0.9 % [facility] Eosinophils (Bld) [#/Vol] 0.2 10*3/uL [facility] Eosinophils/100 WBC (Bld) 2.6 % [facility] Erythrocyte distribution width (RBC) [Ratio] 13.6 % 11.5 - 15.0 % [facility] Hematocrit (Bld) [Volume fraction] 45.1 % 39 - 49 % [facility] Hemoglobin (Bld) [Mass/Vol] 15.5 g/dL 13.0 - 17.0 g/dL [facility] Interpretation and review of laboratory results Abnormal [facility] Lymphocytes (Bld) [#/Vol] 1.5 10*3/uL [facility] Lymphocytes/100 WBC (Bld) 21.7 % [facility] MCH (RBC) [Entitic mass] 30.2 pg 27 - 34 pg [facility] MCHC (RBC) [Mass/Vol] 34.4 g/dL 32 - 36 g/dL P [facility] MCV (RBC) [Entitic vol] 88 fL 80 - 100 fL [facility] Monocytes (Bld) [#/Vol] 1.0 10*3/uL High [facility] Monocytes/100 WBC (Bld) 13.6 % [facility] Neutrophils (Bld) [#/Vol] 4.4 10*3/uL [facility] Neutrophils/100 WBC (Bld) 61.2 % [facility] Platelet mean volume (Bld) [Entitic vol] 7.8 fL 7 - 12 fL [facility] Platelets (Bld) [#/Vol] 269 10*3/uL [facility] RBC (Bld) [#/Vol] 5.12 10*6/uL [facility] WBC corrected for nucl RBC Auto (Bld) [#/Vol] 7.1 [facility] No Panel Informationon 12-20 [facility] PROTIME AND INRon 12-20-2023 INR Coag (PPP) [Relative time] 1.0 {INR} Normal 0.8-1.1 [facility] Comment on above: Performed By: #### C ALEN, PINR, 46700-6, BMP #### [facility] ([id number]) [address], [address] [place] [address] PT Coag (PPP) [Time] 11.3 s Normal 9.8-13.2 [facility] Comment on above: Performed By: #### C BCA, PINR, 25176-3, BMP #### [facility] ([id number]) [address] [place] [address] Protime & INRon 12-20-2023 INR Coag (PPP) [Relative time] 1.0 {INR} [facility] PT Coag (PPP) [Time] 11.3 s [facility] Type and screenon 12-20-2023 ABO AB [facility] Rh Nom (Bld) Positive [facility] URINALYSISon 12-20-2023 Bilirubin Ql (U) Negative Normal NEG [facility] BLOOD/HGB Negative Normal NEG [facility] Color (U) YELLOW Normal YELLOW [facility] Glucose Ql (U) Negative Normal NEG [facility] Ketones Ql (U) Negative Normal NEG [facility] Leukocyte esterase Test strip Ql (U) Negative Normal NEG [facility] MUCOUS PRESENT Abnormal NONE [facility] Nitrite Ql (U) Negative Normal NEG [facility] pH (U) 6.0 [pH] Normal 5.0-8.5 [facility] Protein Ql (U) Trace Abnormal NEG [facility] R.B.CELLS 2 /hpf Normal 0-5 [facility] Specific gravity (U) [Rel density] 1.026 Normal 1.003-1.035 [facility] TURBIDITY CLEAR Normal CLEAR [facility] Urobilinogen (U) [Mass/Vol] mg/dL Normal <1.1 [facility] W.B.CELLS 2 /hpf Normal 0-5 [facility] URINE CULTUREon 12-20-2023 Bacteria identified Cx Nom (U) CULTURE RESULTS <10,000 ORGANISMS/ML NORMAL URO GENITAL CORINA Normal [facility] Comment on above: Performed By: #### 6 30-4 #### [facility] ([id number]) [address] [place] [address], [address] [place] [address] Urinalysison 12-20-2023 Bilirubin Ql (U) Negative Negative^Ne g ative [facility] Color (U) YELLOW YELLOW^YELLO W [facility] Glucose (U) [Mass/Vol] Negative Negative^Neg ative mg/dL [facility] Hemoglobin Auto test strip Ql (U) Negative Negative^Neg ative [facility] Interpretation and review of laboratory results Abnormal [facility] Ketones (U) [Mass/Vol] Negative Negative^Neg ative mg/dL [facility] Leukocyte esterase Auto test strip Ql (U) Negative Negative^Neg ative [facility] Mucus Ql (Urine sed) PRESENT Abnormal NONE^NONE [facility] Nitrite Auto test strip Ql (U) Negative Negative^Neg ative [facility] pH (U) 6.0 [pH] 5.0 - 8.[address] [facility] Protein (U) [Mass/Vol] Trace Abnormal Negative^Neg ative mg/dL [facility] RBC Auto (Urine sed) [#/Area] 2 [facility] Specific gravity Refractometry automated (U) [Rel density] 1.026 1.003 - 1.035 [facility] Turbidity Ql (U) CLEAR CLEAR^CLEAR [facility] Urobilinogen Qn (U) NINF [facility] WBC Auto (Urine sed) [#/Area] [address] [facility] aPTT Coag (PPP) [Time]on aPTT Coag (Bld) [Time] 31 s Normal 26-37 [facility] Comment on above: Performed By: #### C BCA, PINR, 97884-5, BMP #### [facility] ([id number]) [address], [address] [place] [address] XR SPINE LUMB BENDING ONLY 2 -3 [...] Morrell MD on 11/16/2023 8:57 PM Normal [facility] MR LUMBAR SPINE WO CONTon MR [...] MD on 11/01/2023 10:24 AM Normal [facility] XR shoulder RT min 2V*on XR shoulder RT min 2V* [facility] [address] [place] [id number] XRay Report Signed Patient: Regan Green MR#: [id number] 65 : 1950 Acct:[id number] Age/Sex: 73 / M ADM Date: 06/24/23 Loc: [facility] Room: Type: [facility] Attending Dr: Charity Barkley MD Copies to: [...] Artie Goldsmith M.D.06/24/2023 12:37 PM Dictation Location: [place] [address] Transcribed By: [facility] 06/24/23 1237 Dictated By: Artie Goldsmith DO 06/24/23 1236 Signed By: 06/24/23 1237 Normal [facility] Covid-19 PCR (CVDTBH)on SARS-CoV-2 (COVID-19) RNA YASMIN+probe Ql (Unsp spec) Not detected Normal NOT DETECTED [facility] Comment on above: Result Comment: This test is not yet approved or cleared by the [place] FDA. When there are no FDA-approved or cleared tests available, and other criteria are met, FDA can make tests available under an emergency access mechanism called an Emergency Use Authorization (EUA). The EUA for this test is supported by the Newspaper Copy Editor of Health and Human Service's (HHS's) declaration [...] SARS-CoV-2. Performed By: #### C [facility] #### [facility] [address] [place] [address] [address] Keely Fitzgerald MRI Shoulder w/o Lefton 02-03 MRI Shoulder w/o Left HISTORY: Lifting injury. Patient felt a pop and snap one month ago. COMPARISON: None available TECHNIQUE: Multiplanar multisequence MRI was performed of the left shoulder without contrast. FINDINGS: Degenerative changes of the acromioclavicular joint with moderate undersurface osteophyte formation. The acromion is curved. Coracoclavicular ligament is intact. Small amount of subacromial/subdeltoi d bursal fluid. Full thickness tear of distal [...] by Boogie Modi on 02/23/2022 1229 Normal [facility] [employer] PELVIS 1 OR 2 [facility] 04-16-20 18 PELVIS 1 OR [facility] [place] [address] Patient Name: REGAN GREEN : 1950ex: MAge: Race: WhiteMRN: [id number]. Location: 84Patient Status: OVisit #: [id number] Date: 04/16/2018 9:20:00 AMCompleted Date: 04/16/2018 09:18 AMRequesting Provider: BILLY KILLIAN Attending Provider: BILLY KILLIAN Report Copy To: Signs & Symptoms: M46.1 Sacroiliitis, not elsewhere classified [id number]: AthenaComments: , , , Ordering Provider - BILLY KILLIAN MD , Exam: PELVIS 1 OR 2 VWSAccession #: [id number] PEL VIS 1 OR 2 VWS 04/16/2018 9:18 AM [...] fracture Electronically signed by:Lea Le. Transcribed by: [email or web address], User Resident: Electronically Signed by: LEA LE @ 04/16/2018 10:35 AM Normal [facility] Comment on above: Order Comment: , , = ========= , Ordering Provider - BILLY KILLIAN MD , Vital Signs Date Time Vital Sign Value Performing Clinician Facility 11-25-2024 13:57-0500 Body height 175.3 cm Johnathan Kraus MD Work Phone: [facility] 11-25-2024 13:57-0500 Body mass index (BMI) [Ratio] 33.23 kg/m2 Johnathan Kraus MD Work Phone: [facility] 11-25-2024 13:57-0500 Body weight 102.06 kg Johnathan Kraus MD Work Phone: [facility] 11-25-2024 13:57-0500 Diastolic blood pressure 87 mm[Hg] Johnathan Kraus MD Work Phone: [facility] 11-25-2024 13:57-0500 Heart rate 80 /min Johnathan Kraus MD Work Phone: [facility] 11-25-2024 13:57-0500 SaO2% (BldA) [Mass fraction] 97 % Johnathan Kraus MD Work Phone: [facility] 11-25-2024 13:57-0500 Systolic blood pressure 139 mm[Hg] Johnathan Kraus MD Work Phone: [facility] 08-11-2024 09:12-0400 Body height 182.9 cm Sumanth Hill [facility] 08-11-2024 09:12-0400 Body mass index (BMI) [Ratio] 30.04 kg/m2 Sumanth Hill MD [email or web address] 08-11-2024 09:12-0400 Body temperature 96.8 [degF] Sumanth Hill MD Work [facility] 08-11-2024 09:12-0400 Body weight 100.47 kg Sumanth Hill MD Work Phone: [facility] 08-11-2024 09:12-0400 Diastolic blood pressure 82 mm[Hg] Sumanth Hill MD Work Phone: [facility] 08-11-2024 09:12-0400 Systolic blood pressure 134 mm[Hg] Sumanth Hill MD Work Phone: [facility] 02-12-2024 09:03-0400 Body height 185.4 cm Carl Sosa 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 Work Phone: [facility] 02-12-2024 09:03-0400 Body mass index (BMI) [Ratio] 28.37 kg/m2 Carl Sosa 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 Work Phone: [facility] 02-12-2024 09:03-0400 Body weight 97.52 kg Carl Sosa 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 Work Phone: [facility] 02-12-2024 09:03-0400 Diastolic blood pressure 87 mm[Hg] Carl Sosa 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 Work Phone: [facility] 02-12-2024 09:03-0400 Heart rate 85 /min Carl Sosa 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 Work Phone: [facility] [facility] 02-12-2024 09:03-0400 Systolic blood pressure 135 mm[Hg] Carl Sosa 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 Work Phone: [facility] 12-27-2023 11:46-0500 Body temperature 98.29 [degF] Mayco Nolen MD Work Phone: [facility] 12-27-2023 11:46-0500 Diastolic blood pressure 77 mm[Hg] Mayco Nolen MD Work Phone: [facility] 12-27-2023 11:46-0500 Heart rate 84 /min Mayco Nolen MD Work Phone: [facility] 12-27-2023 11:46-0500 Respiratory rate 14 /min Mayco Nolen MD Work Phone: [facility] 12-27-2023 11:46-0500 Systolic blood pressure 127 mm[Hg] Mayco Nolen MD Work Phone: [facility] 12-27-2023 04:23-0500 SaO2% (BldA) [Mass fraction] 94 % Mayco Nolen MD Work Phone: [facility] 12-25-2023 22:54-0500 Body mass index (BMI) [Ratio] 28.76 kg/m2 Mayco Nolen MD Work Phone: [facility] 12-25-2023 22:54-0500 Body weight 96.2 kg Mayco Nolen MD Work Phone: [facility] 12-25-2023 13:27-0500 Body height 182.9 cm Mayco Nolen MD Work Phone: [facility] 12-20-2023 14:20-0500 Body height 182.9 cm [facility] [address] [place] [address] 12-20-2023 14:20-0500 Body mass index (BMI) [Ratio] 29.39 kg/m2 [address] 12-20-2023 14:20-0500 Body temperature 97.7 [degF] [facility] [address] [place] [address] 12-20-2023 14:20-0500 Body weight 98.3 kg [facility] [address] [place] [address] 12-20-2023 14:20-0500 Diastolic blood pressure 84 mm[Hg] [facility] 9 [facility] 12-20-2023 14:20-0500 Heart rate 77 /min [facility] 9 [facility] 12-20-2023 14:20-0500 Respiratory rate 18 /min [facility] [address] [place] [address] 12-20-2023 14:20-0500 SaO2% (BldA) [Mass fraction] 97 % [facility] [address] [place] [address] 12-20-2023 14:20-0500 Systolic blood pressure 132 mm[Hg] [facility] 11-14-2023 09:59-0500 Body height 180.3 cm Carl Sosa 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 Work Phone: [facility] 11-14-2023 09:59-0500 Body mass index (BMI) [Ratio] 29.57 kg/m2 Carl Sosa 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 Work Phone: [facility] 11-14-2023 09:59-0500 Body weight 96.16 kg Carl Sosa 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 Work Phone: [facility] 11-14-2023 09:59-0500 Diastolic blood pressure 86 mm[Hg] Carl Sosa 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 Work Phone: [facility] 11-14-2023 09:59-0500 Heart rate 81 /min Carl Sosa 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 Work Phone: [facility] 11-14-2023 09:59-0500 Systolic blood pressure 135 mm[Hg] Carl Sosa 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 Work Phone: [facility] 05-21-2023 10:00-0400 Body height 182.88 cm Charity Filippo Other [facility] Other 05-21-2023 10:00-0400 Body mass index (BMI) [Ratio] 30.51 kg/m2 Charity Filippo Other [facility] Other 05-21-2023 10:00-0400 Body weight 102.06 kg Charity Filippo Other [facility] Other Encounters Encounter Date Encounter Type Care Provider Facility Start: 12-09-2024 ambulatory SUMANTH LOZANO Facility:[facility] Start: 12-09-2024 End: 12-09-2024 Subsequent hospital visit by physician [facility] Work Phone: [facility] Comment on above: Spondylolisthesis of lumbar region [M43.16] Start: 11-25-2024 End: 11-25-2024 ambulatory JOHNATHAN KRAUS Facility:[facility] Start: 11-25-2024 End: 11-25-2024 Patient encounter procedure Johnathan Kraus MD Work Phone: [facility] Comment on above: Spondylolisthesis of lumbar region (Primary Dx); Abnormal findings on diagnostic imaging of other parts of musculoskeletal system Start: 09-07-2024 End: 09-07-2024 ambulatory Rosales Corona MD Facility:[facility] Start: 08-26-2024 End: 08-26-2024 Orders Only Sumanth Hill MD Work Phone: [facility] Start: 08-25-2024 End: 08-25-2024 ambulatory [facility] Start: 08-11-2024 End: 08-11-2024 ambulatory [facility] Start: 08-11-2024 Encounter for genera l adult medical examination without abnormal findings [facility] Start: 08-11-2024 End: 08-11-2024 Patient encounter procedure Sumanth Hill MD Work Phone: [facility] Comment on above: Routine general medi jarrett examination at a health care facility (Primary Dx); Lumbar radiculopathy, chronic; Spondylolisthesis of lumbar region; Pure hypercholesterolemia; Adenocarcinoma of prostate ([facility]) Start: 08-11-2024 End: 08-11-2024 Patient encounter status Sumanth Hill MD Work Phone: [facility] Work Phone: Start: 07-31-2024 End: 07-31-2024 ambulatory [facility] Work Phone: Start: 07-31-2024 End: 07-31-2024 Patient encounter procedure [facility] Work Phone: Start: 07-01-2024 End: 07-03-2024 Chart abstracting Unk Pcp (Hist) Neurology Start: 06-18-2024 End: 06-18-2024 ambulatory KING CLARK Not Available Start: 06-04-2024 End: 06-04-2024 ambulatory SUMANTH HILL [facility] Start: 06-02-2024 End: 06-02-2024 ambulatory JESSICA REYES Not Available Start: 05-22-2024 End: 05-22-2024 ambulatory [facility] Work Phone: Start: 05-22-2024 End: 05-22-2024 Patient encounter procedure [facility] Work Phone: Start: 05-12-2024 End: 06-04-2024 ambulatory [facility] Start: 04-28-2024 End: 04-28-2024 ambulatory MINH Mike MARYANA [facility] Start: 04-27-2024 End: 05-04-2024 ambulatory [facility] Start: 04-23-2024 End: 04-23-2024 ambulatory [facility] Start: 04-23-2024 End: 04-23-2024 ambulatory [facility] Start: 04-21-2024 End: 04-21-2024 ambulatory [facility] Start: 04-06-2024 End: 05-04-2024 ambulatory CARL [facility] Start: 03-04-2024 End: 04-04-2024 ambulatory CARL [facility] Start: 02-14-2024 End: 03-04-2024 ambulatory [facility] Start: 02-12-2024 End: 02-12-2024 Postop follow up visit related to original px Carl Sosa 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 Work Phone: [facility] Comment on above: Status post lumbar l aminectomy (Primary Dx); Low back pain, non-specific; Leg pain, right; Weakness of right lower extremity; Sensory deficit, right Start: 02-12-2024 End: 02-12-2024 ambulatory [facility] Start: 01-29-2024 End: 01-29-2024 ambulatory [facility] Work Phone: Start: 01-29-2024 End: 01-29-2024 Patient encounter procedure [facility] Work Phone: Start: 12-28-2023 End: 12-28-2023 ambulatory MARIA M Tee RONITANDREW [facility] Start: 12-25-2023 End: 12-28-2023 ambulatory GLEN RICHEY [facility] Start: 12-25-2023 End: 12-27-2023 ambulatory [facility] Start: 12-25-2023 End: 12-27-2023 Subsequent hospital visit by physician Mayco Nolen MD Work Phone: [facility] Comment on above: Radiculopathy, lumba r region; Neurogenic claudication Start: 12-24-2023 Telephone encounter Ella [facility] Comment on above: surgery Start: 12-20-2023 Telephone encounter Hoda Chir[facility] Start: 12-20-2023 End: 12-20-2023 Patient encounter procedure [facility] Comment on above: Radiculopathy, lumba r region; Neurogenic claudication; Monitoring for anticoagulant use; Abnormal urine findings Start: 12-20-2023 End: 12-20-2023 [facility] Start: 12-18-2023 Documentation procedure Jasmin Noriega 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 Work Phone: [facility] Start: 12-10-2023 Telephone encounter Myrtle Hatch LPN [facility] Comment on above: surgery Start: 12-05-2023 End: 01-03-2024 ambulatory [facility] Start: 11-27-2023 Telephone encounter Ella Brenner [facility] Start: 11-22-2023 End: 12-05-2023 ambulatory CARL SOSA [facility] Start: 11-18-2023 End: 11-18-2023 ambulatory Rosales Corona MD Facility: [place] Start: 11-14-2023 End: 11-14-2023 ambulatory CARL SOSA [facility] Start: 11-14-2023 End: 11-14-2023 Office outpatient new 45 minutes Carl Sosa 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 Work Phone: [facility] Comment on above: Neurogenic claudicat ion (Primary Dx); Lumbar radiculopathy, chronic Start: 11-14-2023 End: 11-14-2023 ambulatory [facility] Start: 11-05-2023 Telephone encounter Dolores Rm MA [facility] Comment on above: Er Follow-up Lumbar radiculopathy , chronic (Primary Dx) Start: 11-01-2023 End: 11-01-2023 ambulatory [facility] Start: 10-31-2023 End: 10-31-2023 Emergency department patient visit [facility] Start: 10-30-2023 End: 10-30-2023 ambulatory Charity [facility] Other [facility] Other Start: 10-30-2023 Office outpatient vi sit 15 minutes Charity Calvey [facility] Start: 10-22-2023 End: 10-23-2023 Emergency department patient visit MAEVE Randal VICKKATHLEEN [facility] Start: 08-20-2023 End: 08-20-2023 ambulatory Charity Calvey Other [facility] Other Start: 08-20-2023 Office outpatient vi sit 15 minutes Charity Calvey [facility] Start: 07-23-2023 End: 07-23-2023 ambulatory Charity Calvey Other [facility] Other Start: 07-23-2023 Office outpatient vi sit 15 minutes Charity Barkley [facility] Start: 06-24-2023 Office outpatient vi sit 15 minutes Charity Barkley [facility] Start: 06-24-2023 End: 06-24-2023 Patient encounter procedure MD Charity Barkley Work Phone: [facility] Start: 06-24-2023 End: 06-24-2023 ambulatory NON STAFF [facility] Work Phone: Start: 05-21-2023 Office outpatient ne w 30 minutes Charity Barkley [facility] Start: 05-21-2023 End: 05-21-2023 ambulatory MD Charity Barkley Work Phone: [facility] Work Phone: Start: 05-21-2023 End: 05-21-2023 Patient encounter procedure MD Charity Barkley Work Phone: [facility] Start: 03-19-2023 End: 03-20-2023 ambulatory NARENDRANATH LAKSHMIPATHY . Facility:[facility] Start: 02-21-2023 End: 02-22-2023 ambulatory NARENDRANATH LAKSHMIPATHY . Facility:[facility] Start: 12-18-2022 End: 12-19-[address] ROMERO SOSA . Facility:[facility] Start: 11-22-2022 End: 11-23-[address] ROMERO SOSA . Facility:[facility] Start: 10-11-2022 Encounter for preprocedural laboratory examination DR ROMERO SOSA . [facility] Start: 10-09-2022 End: 10-09-[address] ROMERO SOSA . Facility:[facility] Start: 10-05-2022 End: 10-06-[address] ROMERO SOSA . Facility:[facility] Start: 10-05-2022 End: 10-06-2022 Encounter for preprocedural laboratory examination DR ROMERO SOSA . Facility:[facility] Start: 10-01-2022 Encounter for preprocedural cardiovascular examination ISELA SALMERON . [facility] Start: 09-26-2022 End: 09-27-2022 ambulatory [...] Facility: Start: 04-16-2018 End: 04-17-2018 Ambulatory BILLY CONSTANTIN Facility:[email or web address] Start: 01-28-2018 End: 01-29-2018 Ambulatory DEFAULT PHYSICIAN Facility:[facility] [[email or web address] Procedures Date Procedure Procedure Detail Performing Clinician Start: 12-09-2024 Bone &/joint imaging 3 phase study Johnathan Kraus MD Work Phone: Start: 08-25-2024 Lipid 1996 panel - S kenji or Plasma Johnathan Kraus MD Work Phone: Start: 08-11-2024 Adult depression scr eening assessment Sumanth Hill MD Work Phone: Start: 04-23-2024 Follow-up visit Follow-up MAYCO NOLEN Start: 12-27-2023 Ecg routine ecg w/le ast 12 lds trcg only w/o i&r Christina Varma 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 Work Phone: Start: 12-27-2023 End: 12-27-2023 Basic metabolic panel calcium total Christina Varma 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 Work Phone: Start: 12-26-2023 Basic metabolic pane l calcium total Christina Varma 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 Work Phone: Start: 12-25-2023 Fluor needle/cath spine/paraspinal [...] Adult depression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 prostatectomy Diverticulitis Diverticulosis Fecal impaction ([facility]) Inflammation of sacroiliac joint ([facility]) Knee pain Low back pain Lumbar disc disorder Neurogenic claudication 12/17/2023 Osteoarthritis SBO (small bowel obstruction) ([facility]) 10/04/2023 Shingles UTI (urinary tract infection) Varicose veins of right lower extremity with pain 02/08/2020 Visual impairment 12/20/2023 PAST SURGICAL HISTORY: Past Surgical History: Procedure Laterality Date ABDOMINAL ADHESION SURGERY COLONOSCOPY COLONOSCOPY N/A 03/25/2023 Performed by Johnathan Campbell DO at [facility] HERNIA REPAIR [...] the most recent lab values available in [facility] at the time of the office visit. PAT labs are pending per surgeon. ASSESSMENT / DIAGNOSIS: Linked DX: Radiculopathy, lumbar region [M54.16] PLAN: Regan Green is scheduled for Linked Case Date: 12/25/2023 Linked Surgeon: Forrest Nolen MD Linked Surgery: Laminectomy Lumbar Multi Level / L2-L5. JOSEMANUEL Santoyo 12/20/23 1511 documented [facility]-20[facility]2023 Instructions Antonia Rosario RN - 12/20/2023 1:45 PM EST Your surgery/procedure is scheduled at [facility] on 12/25 at 2:45 Arrival Time 12:45 [facility] Address: [address] [place] [address]. [place] [address] Park in [address] Parking lot located on [facility]. Report to the Entrance B. Check in at the information desk the surgery. The waiting room located on the second floor. If you have any questions prior to surgery, please call Pre-Admission Clinic at [phone] between 7:30 am and 4:30 pm Saturday through Saturday. If you have questions the morning of surgery, please call the Pre-op Department at [phone]. Notify your SURGEON if you develop any [...] would like to schedule therapy at a [facility] facility, please call [phone] ([phone]). Do not use lotions, creams, powders, perfume, make up, cologne or after-shaves day of surgery. Remove ALL jewelry including wedding rings, body piercings,hair extensions that contain metal, nail khmer, make-up, and contact lens. You may brush [...] RIGHTS AND RESPONSIBILITIES As a patient at [facility], you have the right to: Receive medical care and be informed of who is taking care of you Be treated with dignity and respect Have a family member/sales representative gas service of choice and your physician notified of your admission Receive information and actively participate in decisions about your care and treatment Refuse care, treatment and services Decide who may provide your support and speak for you Access jewish and spiritual services Participate in ethical issues [...] charges and payment methods Patient/patient sales representative gas service responsibilities are to: Provide information about health [...] in clean clothes. [facility]2023 History of Present illness Narrative Pre [...] 10/04/23 no acute pulmonary pathology Jasmin Noriega, 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 [facility] Contact via patient touch 12/21/23 6:10 AM To find out which ESTEFANY is on for the day please go to [employer] and use log in Driver Hire and search for P[facility] Neurosurgery (ESTEFANY and Phone Number is listed) JOSEMANUEL Daniels 12/25/23 1513 documented in this encounter [facility] 12-10-2023 Miscellaneous Notes Regan calls into the [...] would have to speak with Dr. Nolen oral surgery technician about surgery. Patient transferred to Dr. Nolen oral surgery technician. documented in this encounter [facility] 12-10-2023 Telephone encounter Note Regan [...] would have to speak with Dr. Nolen oral surgery technician about surgery. Patient transferred to Dr. Nolen oral surgery technician. [facility] 11-27-2023 Miscellaneous Notes Kenneth left [...] pain or ineffectiveness. documented in this encounter [facility] 11-27-2023 Telephone encounter Note Kenneth left a message to ask how many physical therapy visits he should try to complete before scheduling surgery. [facility] 11-27-2023 Telephone encounter Note Left message for Kenneth to let him know at least six visits usually show good effort but if these are unsuccessful he needs to make sure the physical therapist is documenting increase of pain or ineffectiveness. [facility] 11-14-2023 History of Present illness Narrative Images from the original note were not included. [facility] [address] [place] [address], [address] [place] [address] * CHART NOTE ? 11/14/2023 Patient: Regan Green 1950 [id number] Nurse Practitioner: Carl Sosa CNP Physician: Mayco [...] He was seen by [facility] in [place], but was advised they could no longer help. He has not had any interventional pain procedures, but was seen at [facility] in [place], [place], but was advised he should be seen here first. Patient's imaging was discussed and reviewed to their understanding in office today. Patient has not yet exhausted all conservative measures of treatment and is agreeable to them namely CHANTELLE. Denies loss of hydrometer finisher strength, saddle anesthesia, urinary or bowel dysfunction, [...] SURGERY COLONOSCOPY COLONOSCOPY N/A 03/25/2023 Performed by Johnathan Campbell DO at [facility] HERNIA REPAIR Left inguinal HIP SURGERY Left [...] Right achilles 2+ Left achilles 2+ Right hydrometer finisher 2+ Left hydrometer finisher 2+ Right Mack reflex absent and left [...] visible abscess or suspicious gas within the dyflf-lo-edac Close clinical follow-up and short-term progress repeat [...] but was seen at [facility] in [place], [place], but was advised he should be [...] record of the patient encounter. Inadvertent computerized mds coordinator errors related to syntax, spelling, homophones, and/or inaudibility may be present. Scribe Statement: Scribed for and in the presence of JOSEMANUEL Kirk by Joshua Higginbotham. JOSEMANUEL Kirk 11/14/23 1630 documented in this encounter [facility] 11-14-2023 Instructions AINSLEY Szymanski - 11/14/2023 9:30 AM EST Patient was seen by Dr. Nolen and JOSEMANUEL Chappell Patient was given an order for an x ray Lumbar spine Flex/Ext Medrol pack Physical therapy Referral for Lumbar to PT services Pain management referral for Lumbar L3-4 Patient will follow up after Pain management JA documented in this encounter [facility] 11-05-2023 Miscellaneous Notes ED Outreach This documentation is being used for Transition of Care purposes: Yes/No: Yes ED Outreach Date: November 05, 2023 ED Outreach Method: COMMUNICATION METHOD: Telephone ED Outreach Attempt: first ED Outreach Outcome: Contacted Patient Name of ED Facility: [facility] Date of ED Discharge: 10/31/2023 Discharge Diagnosis: [...] with additional concerns. [email or web address] 11-05-2023 Telephone encounter Note ED Outreach This documentation is being used for Transition of Care purposes: Yes/No: Yes ED Outreach Date: November 05, 2023 ED Outreach Method: COMMUNICATION METHOD: Telephone ED Outreach Attempt: first ED Outreach Outcome: Contacted Patient Name of ED Facility: [facility] Date of ED Discharge: 10/31/2023 Discharge Diagnosis: [...] will contact the office with additional concerns. [email or web address] 10-30-2023 Evaluation note Encounter Date Diagnosis [...] pain of right shoulder (ICD-10 - M25.511) [facility] Other 12-19-2023 NoteCT LUMBAR SPINE WO CONT [...] abscess or suspicious gas visible within the gobwc-tq-zvte. Repeat contrast abdominal pelvic CT may prove useful in combination with colonic screening with appropriate Probable parapelvic cysts in the left kidney Prominent vascular calcifications There is some metal artifact related to a prior surgery at the left acetabular region. There are also clips in the low pelvis as seen on the tire trimmer hand image Sagittal images include from the lower [...] visible abscess or suspicious gas within the xfufw-tq-sytx Close clinical follow-up and short-term progress repeat abdominal pelvic contrast CT and colonic screening considered There is also be severe degenerative change of the lumbar spine and relatively severe canal and neural foraminal stenosis probably greatest at L3-4 and L4-5 levels There is no compression deformity or destructive bone process Finalized by Renaldo Tinjaero MD on 10/22/2023 1:09 [facility] 08-20-2023 Evaluation note* Encounter Date Diagnosis [...] pain of right shoulder (ICD-10 - M25.511) [facility] Other 09-19-2023 Evaluation note* Encounter Date Diagnosis [...] pain of right shoulder (ICD-10 - M25.511) [facility] Other 08-21-2023 Evaluation note* Encounter Date Diagnosis [...] pain of right shoulder (ICD-10 - M25.511) [facility] Other 07-18-2023 Evaluation note* Encounter Date Diagnosis [...] given order for occupational therapy and braces [facility] Other 05-16-2023 NoteCONSULTATION CONSULTATION DATE: 03/19/2023 TO: [...] our patients to inform us about any hunt-sxq-pmuwwek medications or herbal remedies/nutritional supplements/alternative remedies. 2. [...] treatment options with their primary care provider.[facility] [id number] Note CONSULTATION PROCEDURE DATE: 02/21/2023 PROCEDURE: Right [...] removed. He was discharged after meeting criteriaThe [facility] [id number] NoteCONSULTATION CONSULTATION DATE: 12/18/2022 CHIEF COMPLAINT: Left [...] like to proceed. CC: Sumanth Hill M.D.[facility] [id number] NoteCONSULTATION PROCEDURE DATE: 12/18/2022 PREOPERATIVE DIAGNOSIS: Osteoarthritis [...] will be followed up in the office.[facility] [id number] NoteCONSULTATION CONSULTATION DATE: 11/22/2022 HISTORY OF PRESENT [...] food. We will send a referral to [facility] to have his left CMC joint evaluated. Patient does agree with this, and we will follow him up in the clinic in three months' time.[facility] HospitalSijmajsi52-97-2054 NotePROCEDURE: XR HAND LT MIN 3V HISTORY: [...] authenticated by: ALESSANDRO MEJIA Date: 2022-09-26 22:39[facility] [id number] NoteCONSULTATION CONSULTATION DATE: 09/20/2022 HISTORY OF PRESENT [...] mg t.i.d., Percocet 5/325 b.i.d., multivitamin and Tlzqu-Nf-Yxyr. Patient, procedure-holloway, had radiofrequency ablation of his [...] to the clinic thereafter for follow up.[facility] [id number] NoteCONSULTATION CONSULTATION DATE: 08/02/2022 HISTORY OF PRESENT [...] lately, carrying heavy feed bags into the [employer] for hunting season. He knows he is [...] of care and all questions were answered.[facility] [id number] NoteCONSULTATION CONSULTATION DATE: 06/14/2022 This is a [...] grossly tender to the right with positive Mary's, compression test and thigh thrust test. Pain [...] and Achilles reflexes are +2. DIAGNOSIS: Code [facility] is 724.6. PLAN: We will authorize for a left SI joint injection, refill his Percocet 5/325 b.i.d. and refill Diclofenac 50 mg t.i.d. He is compliant with his vitamin regimen. At this time, I reiterated the use of heat and stretches. The patient will be followed in the clinic post-procedure and agrees to move forward.[facility] HospitalEvaluation noteNo assessment information available [facility] Work Phone: Evaluation note* Diagnosis Radiculopathy, lumbar region Thoracic or [...] of lumbar region documented in this encounter [facility] SystemEvaluation note* Diagnosis Radiculopathy, lumbar region- Primary Thoracic or lumbosacral neuritis or radiculitis, unspecified Radiculopathy, lumbar region Thoracic or lumbosacral neuritis or radiculitis, unspecified Neurogenic claudication Spinal stenosis of lumbar region Neurogenic claudication Spinal stenosis of lumbar region documented in this encounter [facility] SystemEvaluation note* Diagnosis Onset Date Resolution Status Left hand pain acute 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, left hand acute [facility] Work Phone: Evaluation note* Diagnosis Onset Date Resolution Status Left hand pain acute 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, left hand acute Left hand pain acute 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, left hand acute [facility] Work Phone: Evaluation note* Diagnosis Routine general medical examination at a health care facility- Primary Lumbar radiculopathy, chronic Spondylolisthesis of lumbar region Pure hypercholesterolemia Adenocarcinoma of prostate ([facility]) Malignant neoplasm of prostate [facility]* Diagnosis Status post lumbar laminectomy- Primary Low back pain, non-specific Leg pain, right Pain in soft tissues of limb Weakness of right lower extremity Sensory deficit, right documented in this encounter [facility] SystemEvaluation note* Diagnosis Spondylolisthesis of lumbar region- Primary Acquired spondylolisthesis Abnormal findings on diagnostic imaging of other parts of musculoskeletal system documented [facility]* Diagnosis Spondylolisthesis of lumbar region Acquired spondylolisthesis Abnormal findings on diagnostic imaging of other parts of musculoskeletal system documented in this encounter [facility]* Diagnosis Lumbar radiculopathy, chronic- Primary documented in this encounter [facility] SystemEvaluation note* Diagnosis Neurogenic claudication- Primary Spinal stenosis of lumbar region Lumbar radiculopathy, chronic documented in this encounter [facility] SystemHistory general Narrative - Reported* Type Description Date Medical History post knee right replacement Surgical History knee replacement right Surgical History hernia Surgical History prostatectomy Surgical History acetabulum fx Hospitalization History see above [facility] Other InstructionsNot on filedocumented in this encounter [facility] SystemInstructionsNot on filedocumented in this encounter [facility] Health SystemInstructionsNot on filedocumented in this encounter [facility] Beep SystemInstructionsNot on filedocumented in this encounter [facility] Beep SystemInstructionsNot on filedocumented in this encounter [facility] SystemReason for referral (narrative)* Diagnostic Procedure Only (Routine) - Authorized Specialty Diagnoses / Procedures Referred By Contact Referred To Contact MOLECULAR & FUNCTIONAL IMAGING Diagnoses Abnormal findings on diagnostic imaging of other parts of musculoskeletal system Procedures NM BONE 3 PHASE BONE &/JOINT IMAGING 3 PHASE STUDY Johnathan Kraus MD [address] [place] [address] Molecular & Functional Imaging [address] [place] [address] Referral ID Status Reason Start Date Expiration Date Visits Requested Visits Authorized [id number] Authorized Auto-Generat ed Referral 11/25/2024 12/25/2025 1 1 * Diagnostic Procedure Only (Routine) - Authorized Specialty Diagnoses / Procedures Referred By Contac t Referred To Contact MOLECULAR & FUNCTIONAL IMAGING Diagnoses Spondylolisthesis of lumbar region Procedures NM BONE SPECT RP LOCLZJ BERENICE SPECT W/CT 1 AREA 1 DAY IMAGING Johnathan Kraus MD [address] [facility] [place] [address] Molecular & Functional Imaging [address] [place] [address] Referral ID Status Reason Start Date Expiration Date Visits Requested Visits Authorized [id number] Authorized Auto-Generat ed Referral 11/25/2024 12/25/2025 1 1 [facility] for referral (narrative)* Diagnostic Procedure Only (Routine) - Closed Specialty Diagnoses / Procedures Referred By Contact Referred To Contact MOLECULAR & FUNCTIONAL IMAGING Diagnoses Abnormal findings on diagnostic imaging of other parts of musculoskeletal system Procedures NM BONE 3 PHASE BONE &/JOINT IMAGING 3 PHASE STUDY Johnathan Kraus MD [address] [place] [address] Molecular & Functional Imaging [address] [place] [address] Referral ID Status Reason Start Date Expiration Date V isits Requested Visits Authorized [id number] Closed Auto-Generate d Referral 11/25/2024 12/25/2025 1 1 * Diagnostic Procedure Only (Routine) - Closed Specialty Diagnoses / Procedures Referred By Contac t Referred To Contact MOLECULAR & FUNCTIONAL IMAGING Diagnoses Spondylolisthesis of lumbar region Procedures NM BONE SPECT RP LOCLZJ BERENICE SPECT W/CT 1 AREA 1 DAY IMAGING Johnathan Kraus MD [address] [facility] [address] [place] [address] Molecular & Functional Imaging [address] [place] [address] Referral ID Status Reason Start Date Expiration Date V isits Requested Visits Authorized [id number] Closed Auto-Generate d Referral 11/25/2024 12/25/2025 1 1 [facility] Consultation (Routine) - Pending Review Specialty Diagnoses / Procedures Referred By Gaston t Referred To Contact Neurosurgery Diagnoses Lumbar radiculopathy, chronic Sumanth Hill MD [address] [place] [address] [place] [address] [place] [phone] Referral ID Status Reason Start Date Expiration Date Visits Requested Visits Authorized [id number] Pending Review Specialty Services Required 11/05/2023 11/04/2024 1 1 [facility] Consultation (Routine) - Pending Review Specialty Diagnoses / Procedures Referred By Gaston t Referred To Contact Pain Medicine Diagnoses Lumbar radiculopathy, chronic Neurogenic claudication Carl Sosa APRN-CNP [address] [place] [address] [address] Referral ID Status Reason Start Date Expiration Date V isits Requested Visits Authorized [id number] Pending Review 11/14/2023 11/13/2024 1 1 * Physical Therapy (Routine) - Pending Review Specialty Diagnoses / Procedures Referred By Gaston borges Referred To Contact Rehabilitation Diagnoses Lumbar radiculopathy, chronic Neurogenic claudication Carl Sosa APRN-CNP [address] [address] [facility] [address] [place] [address] Referral ID Status Reason Start Date Expiration Date Visits Requested Visits Authorized [id number] Pending Review Specialty Services Required 11/14/2023 11/13/2024 1 1 [facility] Summary Purpose Family History Relationship Condition Age at Onset Recorded Date/T akil father Unknown Not Specified Unknown Chronic obstructive pulmonary disease Unk nown Relationship Condition Age at Onset Recorded Date/T akil father Unknown mother Unknown Chronic obstructive pulmonary disease Unk nown Advance Directives Advance Directive Response Recorded Date/ [...] Comments 10/04/2023 11:04 AM 10/06/2023 2:53 PM Date Activated Date Inactivated Comments 12/27/2023 2:16 AM 12/27/2023 2:55 PM Date Activated Date Inactivated Comments 10/04/2023 11:04 AM 10/06/2023 2:53 PM Latest [...] osteoarthritis of first carpometacarpal joint, left hand Reason for Referral Specialty Diagnoses / Procedures Referred By Gaston borges Referred To Contact Rehabilitation Diagnoses Status post lumbar laminectomy Leg pain, right Weakness of right lower extremity Carl Sosa APRN-ACCOUNT MANAGER [address] [employer] [address] [address] [facility] [address] [place] [address] Referral ID Status Reason Start Date Expiration Date Visits Requested Visits Authorized [id number] Authorized Specialty Services Required 02/12/2024 02/11/2025 1 1 Specialty Diagnoses / Procedures Referred By Gaston borges Referred To Contact Radiology Diagnoses Status post lumbar laminectomy Low back pain, non-specific Leg pain, right Weakness of right lower extremity Sensory deficit, right Procedures MR lumbar spine without contrast Carl Sosa APRN-ACCOUNT MANAGER [address] [employer] [address] [address] Referral ID Status Reason Start Date Expiration Date V isits Requested Visits Authorized [id number] Pending Review 02/12/2024 02/11/2025 1 1 Additional Source Comments (unrecognized sect ion and content) No Status Records FoundNo Status Records FoundNo Status Records FoundNo Status Records FoundNo Status Records FoundNo Status Records FoundNo Status Records FoundNo Status Records FoundNo Status Records FoundNo Status Records FoundNo Status Records Found INFORMATION SOURCE (unrecogn ized section and content) DATE CREATED AUTHOR 04/21/2018 [facility] DATE CREATED AUTHOR AUTHOR'S ORGANIZ ATION 02/25/2022 [facility] dical Specialist DATE CREATED AUTHOR AUTHOR'S ORGANIZ ATION 04/12/2023 [facility] DATE CREATED AUTHOR AUTHOR'S ORGANIZ ATION 04/25/2024 [facility] DATE CREATED AUTHOR AUTHOR'S ORGANIZ ATION 06/05/2024 [facility] DATE CREATED AUTHOR AUTHOR'S ORGANIZ ATION 06/19/2024 [facility] dical Specialists EPIC DATE CREATED AUTHOR AUTHOR'S ORGANIZ ATION 08/12/2024 [facility] DATE CREATED AUTHOR AUTHOR'S ORGANIZ ATION 08/26/2024 [facility] DATE CREATED AUTHOR AUTHOR'S ORGANIZ ATION 09/12/2024 [facility] DATE CREATED AUTHOR AUTHOR'S ORGANIZ ATION 12/02/2024 [facility] DATE CREATED AUTHOR AUTHOR'S ORGANIZ ATION 12/11/2024 [facility] REASON FOR VISIT (unrecogniz ed section and content) Reason Onset Date Comments surgery 12/10/2023 Reason Onset Date Comments surgery 12/24/2023 Specialty Diagnoses / Procedures Referred By Gaston borges Referred To Contact Referral ID Status Reason Start Date Expiration Date Visits Re quested Visits Authorized [id number] 1 1 Reason Comments Annual Exam Reason Comments Post-op POST OP LUMBAR GIFTY ECTOMY Reason Comments New Patient Reason Comments Radiology NM Specialty Diagnoses / Procedures Referred By Contact Referred To Contact MOLECULAR & FUNCTIONAL IMAGING Diagnoses Abnormal findings on diagnostic imaging of other parts of musculoskeletal system Procedures NM BONE 3 PHASE BONE &/JOINT IMAGING 3 PHASE STUDY Johnathan Kraus MD [address] [facility] [address] [place] [address] Molecular & Functional Imaging [address] [place] [address] Referral ID Status Reason Start Date Expiration Date V isits Requested Visits Authorized [id number] Closed Auto-Generate d Referral 11/25/2024 12/25/2025 1 1 Reason Onset Date Comments Er Follow-up 11/05/2023 Reason Comments 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 [address] Mayco Nolen MD [address] [place] [phone] Referral ID Status Reason Start Date Expiration Date Visits Requested Visits Authorized [id number] Pending Review Specialty Services Required 11/05/2023 11/04/2024 [...] Active Charity Barkley MD Attending Provider Active Fence [employer] Relationship Specialty Start Date End Date Sumanth Hill MD [address] [place] [address] PCP - General Family Medicine 01/16/23 [employer] Relationship Specialty Start Date End Date Sumanth Hill MD [address] [place] [address] PCP - General Family Medicine 01/16/23 [employer] Relationship Specialty Start Date End Date Sumanth Hill MD [address] [place] [address] PCP - General Family Medicine 01/16/23 [employer] Relationship Specialty Start Date End Date Sumanth Hill MD [address] [place] [address] PCP - General Family Medicine 01/16/23 [employer] Relationship Specialty Start Date End Date Sumanth Hill MD [address] [place] [address] PCP - General Family Medicine 01/16/23 Team [...] May 22, 2024 End: May 22, 2024 [employer]ence [employer] Relationship Specialty Start Date End Date Sumanth Light PCP - General Family Medicine 12/17/14 Team Status: Inactive Member Role Status Dates NON STAFF Primary Care Provider Active Start: July 31, 2024 End: July 31, 2024 Charity Barkley MD Attending Provider Active Start: July 31, 2024 End: July 31, 2024 [employer]ence [employer] Relationship Specialty Start Date End Date Sumanth Hill MD [address] [place] [address] [address] - 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 [address] PCP - General Family Medicine 01/16/23 [employer]ence [employer] Relationship Specialty Start Date End Date Sumanth Hill MD [address] [place] [address] PCP - General Family Medicine 01/16/23 [employer] Relationship Specialty Start Date End Date Sumanth Light PCP - General Family Medicine 12/17/14 [employer]ence [employer] Relationship Specialty Start Date End Date Sumanth Light PCP - General [facility] 12/17/14 [employer]ence [employer] Relationship Specialty Start Date End Date Sumanth Light PCP - [facility] 12/17/14 [employer] Relationship Specialty Start Date End Date Sumanth Hill MD [address] [place] [address] PCP - [facility] 01/16/23 Fence [employer] Driver Relationship Specialty Start Date End Date Sumanth Hill MD [address] [place] [address] PCP - [facility] 01/16/23 Fence [employer] Driver Relationship Specialty Start Date End Date Sumanth Hill MD [address] [place] [address] PCP - [facility] 01/16/23 Goals (unrecognized section and [...] for use. 524 (Given - Provider: Bandar Bahena, RN) 520 (Given - Provider: Pineda Alexandra, RN) gabapentin (NEURONTIN) tablet 600 mg 600 mg, oral, 2 times daily, First dose on Sat12/25/23 at 2100, PACU & Post-op, Look-alike/sound-alike medication - verify indication for use. 2003 (Given - Provider: Shira Thomas RN) 822 (Given - Provider: José Miguel Devine RN)2022 (Given - Provider: Pineda Alexandra RN) 943 (Given - Provider: Michaelle Zeng, [...] Alexandra, MIREILLE) 0945 (Given - Provider: Michaelle ZnegMIREILLE) polyethylene glycol (GLYCOLAX) packet 17 g 17 [...] MIREILLE) 09 (Given - Provider: Michaelle Zeng, RN) [...] 0800 (Not Given - Provider: José Miguel Rich, RN - Reason: See Provider Order) Continuous [...] Vibha Saeed RN) lidocaine-EPINEPHrine (XYLOCAINE W/EPI) 1 %-1:231352 injection (CANCELED) As needed, Starting on Sat12/25/23 [...] Adler RN)2056 (Given - Provider: Shira Thomas RN)2334 (Given - Provider: Bandar Bahena RN) 045 (Given - Provider: Bandar Bahena RN)122 (Given - Provider: José Miguel Devine RN)175 (Given - Provider: José Miguel Devine RN) [...] RN)175 (See Alternative - Provider: José Miguel Devine, RN) 0944 (See Alternative - Provider: Michaelle [...] or prosecute any alcohol or drug abuse patient.[facility] the event this information is protected by the Federal Confidentiality of Alcohol and Drug Abuse Patient Records regulations: The Federal rules restrict any use of the information to criminally investigate or prosecute any alcohol or drug abuse patient.[facility] the event this information is protected by the Federal Confidentiality of Alcohol and Drug Abuse Patient Records regulations: The Federal rules restrict any use of the information to criminally investigate or prosecute any alcohol or drug abuse patient.[facility] the event this information is protected by the Federal Confidentiality of Alcohol and Drug Abuse Patient Records regulations: The Federal rules restrict any use of the information to criminally investigate or prosecute any alcohol or drug abuse patient.[facility] FOR RECORDS PERTAINING TO PATIENTS WHO [...] BE BASED ON THE PRIMARY CLINICAL RECORDS. [facility]. provides no warranty or guarantee of the accuracy or completeness of information in this document.
--- NOTE | 2024-12-16 08:59 | P.CN_ITS ---
Consult Note: HPI Data of Consult Patient: known to practice within the last 3 years Requesting Physician: Danielle Davila NP Primary Care Provider: SUMANTH BECK Consult Narrative Reason for consult: f/u Narrative: Regan Green a pleasant 74 year old male presents for evaluation and management of chronic low back pain, lumbar stenosis, lumbar radiculopathy, myofascial pain. Recent lumbar MRI reveals moderate to severe multilevel stenosis. Pt has a hx of multilevel laminectomy, L5-S1 fusion. Pt previously following with Dr Nolen who recommended L2-5 additional fusion, pt transferred to F Dr Garcia for second opinion who recommends L4/5 fusion. Pt reporting >50% improvement from prior lumbar TFESI. continues to have moderate to severe axial low back pain increased with standing, walking, bending, activity and sleeping. Pain today 7/10 increasing to 10/10. finds benefit to gabapentin 300mg TID, diclofenac, flexeril, and percocet 5-325mg BID PRN moderate to severe pain. denies side effects. denies falls. cc:: CC: Danielle Davila NP Review of Systems ROS Status of ROS 10 or more systems reviewed and unremark able except as noted in history and below Musculoskeletal Reports: back pain PFSH PFSH Medical History Rheumatoid arthritis ?M06.9 - Rheumatoid arthritis, unspecified (ICD-10) Low back pain ?M54.50 - Low back pain, unspecified (ICD-10) Prostate cancer ?C61 - Malignant neoplasm of prostate (ICD-10) Sacroiliitis, not elsewhere classified ?M46.1 - Sacroiliitis, not elsewhere classified (ICD-10) Surgical History Status post hip surgery ?Z98.890 - Other specified postprocedural states (ICD-10) S/P hernia repair ?Z98.890 - Other specified postprocedural states (ICD-10) ?Z87.19 - Personal history of other diseases of the digestive system (ICD-10) S/P total knee arthroplasty ?Z96.659 - Presence of unspecified artificial knee joint (ICD-10) S/P prostatectomy ?Z90.79 - Acquired absence of other genital organ(s) (ICD-10) Meds Home Medications and Allergies Home Medications ?Medication ?Instructions ?Recorded ?Confirmed ?Type OSCAL WITH D PO .QD 04/18/23 History glucosamine-chondroitin 250 mg-200 2 tab PO .QD 04/18/23 09/07/24 History mg tablet (Osteo Bi-Flex) multivitamin 1 tab PO DAILY 04/18/23 09/07/24 History vitamin B complex (Vitamins B 1 tab PO DAILY 01/22/24 09/07/24 History Complex tablet) diclofenac sodium 75 mg 75 mg PO BID PRN pain #60 tabs 05/14/24 09/07/24 Rx tablet,delayed release cyclobenzaprine 10 mg tablet mg 05/19/24 History oxycodone-acetaminophen 5 mg-325 1 tab PO BID PRN pain #60 tabs 06/18/24 09/07/24 Rx mg tablet (Percocet) gabapentin 600 mg tablet 600 mg PO TID 09/01/24 09/07/24 History oxycodone-acetaminophen 5 mg-325 1 tab PO BID PRN pain #60 tabs 09/16/24 Rx mg tablet (Percocet) oxycodone-acetaminophen 5 mg-325 1 tab PO BID PRN pain #60 tabs 10/20/24 Rx mg tablet (Percocet) diclofenac sodium 75 mg 75 mg PO BID PRN pain #60 tabs 11/12/24 Rx tablet,delayed release oxycodone-acetaminophen 5 mg-325 1 tab PO BID PRN pain #60 tabs 11/18/24 Rx mg tablet (Percocet) cyclobenzaprine 10 mg tablet 10 mg PO TID PRN muscle spasm #90 12/09/24 Rx tabs Allergies Allergy/AdvReac Type Severity Reaction Status Date / Time No Known Drug Allergies Allergy Verified 09/07/24 07:00 Exam Constitutional Documenting provider has reviewed patient's vital signs: yes Common normals: no apparent distress, oriented x3, healthy appearing, alert and well nourished General appearance: cooperative HENMT Common normals: normocephalic, hearing grossly normal bilaterally and moist oral mucous membranes Head and scalp: normocephalic Eye Common normals: PERRL Pupil: PERRL Neck & C-Spine Common normals: full ROM General: normal visual inspection Chest Common normals: inspection of chest normal Respiratory Common normals: normal respiratory effort, no retractions and no use of accessory muscles Back & Pelvis Lumbar spine/lower back: ROM limited, pain with ROM and straight leg raise negative bilaterally Other: strength 4/5 in RLE 5/5 in LLE positive facet loading L3-5 Extremity Common normals: normal to inspection and full ROM Neuro Common normals: oriented x3, CN's II-XII intact bilaterally, moves all extremities, no focal motor deficits, no sensory deficits noted and deep tendon reflexes 2+ bilaterally Sensorium/orientation: alert Motor exam: strength 5/5 throughout and no movement abnormalities noted Other: strength 4/5 in RLE, 5/5 in LLE Psych Common normals: mental status grossly normal, thought process normal, cooperative, affect normal, speech normal and activity/motor behavior normal Speech: normal speech Thought process: normal thought process Results Additional Findings Additional findings: If on a controlled substance or opioids, I have checked an [place] report on this patient and there are no aberrancies noted in the prescribing history.??If on a controlled substance or opioid a drug screen was completed and reviewed within the last year, and if there has not been a drug screen completed we ordered one today to monitor higher risk, state monitored pain medication use. As part of providing excellent, safe, comprehensive care, the following was completed at our patient's visit: 1. A medication reconciliation and review to ensure accurate knowledge of current/active medications, including asking our patients to inform us about any [id number] medications or herbal remedies/nutritional supplements/altern ative remedies. 2. A review to specifically ensure our patients have had annual screening for screening for depression, screening for tobacco use, and screening for unhealthy alcohol use. For concerning screenings had a discussion with the patient, provided patient education, and recommended follow-up with primary care provider when appropriate. If patient noted with a risk of falling, they received education on strength, gait, and balance training to prevent future risk of falling. Portions of this note may have been carried over from the previous visit and updated as appropriate. Please note this office utilizes paper charting in addition to the electronic medical record. A list of current medications, vitals, and PMH is available there as the clinical staff outside of myself do not have access to [employer] charting during the clinic day operations. As part of providing quality comprehensive care the current medications, vitals, and PMH were reviewed in the paper chart. Assessment and Plan Assessment and Plan (1) Lumbar spondylosis: Assessment and Plan: The patient has had over 3 months of moderate to severe low back pain with functional impairment and inadequate response to conservative care including NSAIDS (unless there are contraindication such as concurrent blood thinners), multiple oral or topical pain medications, and home exercise program/physical therapy.? Patient has completed >6 weeks of guided home exercise program and/or formal physical therapy program without relief of their symptoms.? The Oswestry Disability Index was completed, and the patient scored a 50%.? The patient noted the following:?? moderate to severe pain, pain impacting ADLs, pain limiting ability to stand and sit, limiting sleep social life and travel We discussed the risks and benefits of the procedure with the patient, and we are NOT planning on using sedation as outlined in the guidelines from Medicare unless there is a documented reason that sedation would be strongly recommended.?? ?The procedure will be completed with fluoroscopic guidance.? (2) Lumbar radiculopathy: Assessment and Plan: >50% improvement ongoing from prior TFESI (3) Lumbar stenosis with neurogenic claudication: (4) Post laminectomy syndrome: (5) Chronic prescription opiate use: Assessment and Plan: I feel these medications are improving the patient's quality of life and allow them to tolerate activities of daily living as well as participate in recreational activity.? The patient does not report intolerable side effects. The patient is NOT opioid naive and non-pharmacologic and non-opioid treatment has failed to significantly relieve the patient's pain and improve functionality. The patient has a diagnosis that is related to a somatic or visceral pain etiology. ? ?? I reviewed with the patient the potential risks and side effects with the use of? opioid medications including but not limited to respiratory depression,? sedation, and even . Within the last 12 months I have verified the patient has access to naloxone should? these effects occur. The patient was advised to let? their family know they had Naloxone in case they would need to administer? the medication. I advised the patient to avoid the use of any other? sedation substances including alcohol, THC, and benzodiazepines while? taking opioid medications due to the risk of compounding side effects and? detrimental outcomes. within the last 12 months I have reviewed the [employer], pain treatment agreement and urine drug screen.? ?? A drug screen was completed within the last year, and no aberrancies were noted regarding their use of controlled substances. The patient understands they are subject to the terms and conditions of the pain contract that they have signed. ? ?? I have checked an [place]AR[place] report on this patient today and there are no aberrancies noted in the prescribing history.? (6) Sacroiliitis: (7) Rheumatoid arthritis: Plan defer bilateral L3-4 L4-5 facet medial branch block x2 working towards RFA for axial low back pain secondary to lumbar spondylosis at this time, pt to call to schedule continue f/u with NS declining narcan, has available at home continue gabapentin 300mg TID, diclofenac 75mg BID PRN pain, flexeril 10-20mg TID PRN pain/spasms, percocet 5-325mg BID PRN moderate to severe pain. risks vs benefits reviewed, reporting functional improvement without side effects. pt could not tolerate lower doses of gabapentin due to increased pain f/u 3 months for medication management, or after each MBB
== END 2024-12-16 08:23 | disposition home or self-care (01) ==
LOC: PM 08:22
PROVIDERS: PCP Family Medicine; Visit Provider Nurse Practitioner
DX: M47.816 Spondylosis without myelopathy or radiculopathy, lumbar region (principal); M54.16 Radiculopathy, lumbar region; M48.062 Spinal stenosis, lumbar region with neurogenic claudication; M96.1 Postlaminectomy syndrome, not elsewhere classified; Z79.891 Long term (current) use of opiate analgesic; M46.1 Sacroiliitis, not elsewhere classified; M06.9 Rheumatoid arthritis, unspecified
CPT/HCPCS: G0463

== ENCOUNTER 2025-01-21 08:22 | Outpatient (OUT) | payer MEDICARE, OTHER, SELFPAY ==
--- NOTE | 2025-01-21 08:52 | P.CN_ITS ---
Consult Note: HPI Data of Consult Patient: known to practice within the last 3 years Requesting Physician: Danielle Davila NP Primary Care Provider: SUMANTH BECK Consult Narrative Reason for consult: f/u Narrative: Regan Green a pleasant 74 year old male presents for evaluation. longstanding hx of back pain unresponsive to > 6 weeks of pT/provider guided HEP, heat, ice, tylenol and NSAIDs. continues to f/u with NS regarding additional lumbar surgery, pending L4,5 fusion with [facility] when pt is ready. Prior advanced imaging consistent with multilevel DDD, stenosis, and facet arthropathy. Pain today 7/10 stabbing aching shooting burning increasing to 10/10 with standing, walking, activity, bending, and sleep. denies recent fall or injury. SRINIVAS 58% with moderate to severe pain impacting ADLs, sleep, social life, travel, ability to sit and stand. continues to find benefit to diclofenac, percocet, flexeril, and gabapentin. cc:: CC: Danielle Davila NP Review of Systems ROS Status of ROS 10 or more systems reviewed and unremark able except as noted in history and below Musculoskeletal Reports: back pain, extremity pain and joint pain PFSH PFSH Medical History Rheumatoid arthritis ?M06.9 - Rheumatoid arthritis, unspecified (ICD-10) Low back pain ?M54.50 - Low back pain, unspecified (ICD-10) Prostate cancer ?C61 - Malignant neoplasm of prostate (ICD-10) Sacroiliitis, not elsewhere classified ?M46.1 - Sacroiliitis, not elsewhere classified (ICD-10) Surgical History Status post hip surgery ?Z98.890 - Other specified postprocedural states (ICD-10) S/P hernia repair ?Z98.890 - Other specified postprocedural states (ICD-10) ?Z87.19 - Personal history of other diseases of the digestive system (ICD-10) S/P total knee arthroplasty ?Z96.659 - Presence of unspecified artificial knee joint (ICD-10) S/P prostatectomy ?Z90.79 - Acquired absence of other genital organ(s) (ICD-10) Meds Home Medications and Allergies Home Medications ?Medication ?Instructions ?Recorded ?Confirmed ?Type OSCAL WITH D PO .QD 04/18/23 History glucosamine-chondroitin 250 mg-200 2 tab PO .QD 04/18/23 09/07/24 History mg tablet (Osteo Bi-Flex) multivitamin 1 tab PO DAILY 04/18/23 09/07/24 History vitamin B complex (Vitamins B 1 tab PO DAILY 01/22/24 09/07/24 History Complex tablet) diclofenac sodium 75 mg 75 mg PO BID PRN pain #60 tabs 05/14/24 09/07/24 Rx tablet,delayed release cyclobenzaprine 10 mg tablet mg 05/19/24 History oxycodone-acetaminophen 5 mg-325 1 tab PO BID PRN pain #60 tabs 06/18/24 09/07/24 Rx mg tablet (Percocet) gabapentin 600 mg tablet 600 mg PO TID 09/01/24 09/07/24 History oxycodone-acetaminophen 5 mg-325 1 tab PO BID PRN pain #60 tabs 09/16/24 Rx mg tablet (Percocet) oxycodone-acetaminophen 5 mg-325 1 tab PO BID PRN pain #60 tabs 10/20/24 Rx mg tablet (Percocet) diclofenac sodium 75 mg 75 mg PO BID PRN pain #60 tabs 11/12/24 Rx tablet,delayed release oxycodone-acetaminophen 5 mg-325 1 tab PO BID PRN pain #60 tabs 11/18/24 Rx mg tablet (Percocet) cyclobenzaprine 10 mg tablet 10 mg PO TID PRN muscle spasm #90 12/09/24 Rx tabs gabapentin 300 mg capsule 300 mg PO TID #90 caps 12/16/24 Rx oxycodone-acetaminophen 5 mg-325 1 tab PO BID PRN pain #60 tabs 12/16/24 Rx mg tablet (Percocet) oxycodone-acetaminophen 5 mg-325 1 tab PO BID PRN pain #60 tabs 01/14/25 Rx mg tablet (Percocet) Allergies Allergy/AdvReac Type Severity Reaction Status Date / Time No Known Drug Allergies Allergy Verified 09/07/24 07:00 Exam Constitutional Documenting provider has reviewed patient's vital signs: yes Common normals: no apparent distress, oriented x3, healthy appearing, alert and well nourished General appearance: cooperative HENMT Common normals: normocephalic, hearing grossly normal bilaterally and moist oral mucous membranes Head and scalp: normocephalic Eye Common normals: PERRL Pupil: PERRL Neck & C-Spine Common normals: full ROM General: normal visual inspection Chest Common normals: inspection of chest normal Respiratory Common normals: normal respiratory effort, no retractions and no use of accessory muscles Back & Pelvis Lumbar spine/lower back: ROM limited, pain with ROM and straight leg raise positive right Sacroiliac joints: SI joint(s) abnormal Other: decreased sensation to right L4,5,S1 strength 4/5 in RLE 5/5 in LLE Neuro Common normals: oriented x3, CN's II-XII intact bilaterally, moves all extremities, no focal motor deficits, no sensory deficits noted and deep tendon reflexes 2+ bilaterally Sensorium/orientation: alert Motor exam: no movement abnormalities noted Psych Common normals: mental status grossly normal, thought process normal, coop erative, affect normal, speech normal and activity/motor behavior normal Speech: normal speech Thought process: normal thought process Results Additional Findings Additional findings: If on a controlled substance or opioids, I have checked an [place] report on this patient and there are no aberrancies noted in the prescribing history.??If on a controlled substance or opioid a drug screen was completed and reviewed within the last year, and if there has not been a drug screen completed we ordered one today to monitor higher risk, state monitored pain medication use. As part of providing excellent, safe, comprehensive care, the following was completed at our patient's visit: 1. A medication reconciliation and review to ensure accurate knowledge of current/active medications, including asking our patients to inform us about any [id number] medications or herbal remedies/nutritional supplements/alternative remedies. 2. A review to specifically ensure our patients have had annual screening for screening for depression, screening for tobacco use, and screening for unhealthy alcohol use. For concerning screenings had a discussion with the patient, provided patient education, and recommended follow-up with primary care provider when appropriate. If patient noted with a risk of falling, they received education on strength, gait, and balance training to prevent future risk of falling. Portions of this note may have been carried over from the previous visit and updated as appropriate. Please note this office utilizes paper charting in addition to the electronic medical record. A list of current medications, vitals, and PMH is available there as the clinical staff outside of myself do not have access to [employer] charting during the clinic day operations. As part of providing quality comprehensive care the current medications, vitals, and PMH were reviewed in the paper chart. Assessment and Plan Assessment and Plan (1) Lumbar stenosis with neurogenic claudication: (2) Lumbar spondylosis: (3) Sacroiliitis: (4) Post laminectomy syndrome: (5) Lumbar radiculopathy: (6) Chronic prescription opiate use: (7) Muscle spasm: Plan proceed with repeat right L4-5 L5-S1 TFESI under fluoroscopy, previous injection provided >50% improvement in pain and functional ability for 3 months increase flexeril 10mg 1-2 tabs TID PRN pain/spasms continue current medications continue HEP as tolerated f/u 2 weeks after [facility]
== END 2025-01-21 08:23 ==
LOC: PM 08:22
PROVIDERS: PCP Family Medicine; Visit Provider Nurse Practitioner
DX: M48.062 Spinal stenosis, lumbar region with neurogenic claudication (principal); M47.816 Spondylosis without myelopathy or radiculopathy, lumbar region; M46.1 Sacroiliitis, not elsewhere classified; M96.1 Postlaminectomy syndrome, not elsewhere classified; M54.16 Radiculopathy, lumbar region; Z79.891 Long term (current) use of opiate analgesic; M62.838 Other muscle spasm
CPT/HCPCS: G0463

== ENCOUNTER 2025-01-25 09:13 | Day surgery (SDC) | payer MEDICARE, OTHER, SELFPAY ==
--- OUTSIDE RECORDS SUMMARY | 2025-01-25 09:32 | XMS_ITS | CCD ---
Author Organization [facility] CliniSynv Care Team Providers Care Celery Tier Name Role Phone PHYSICIAN, DEFAULT Unavailable Unavailable [...] Barkley Unavailable MD Charity Barkley Attending Provider [phone] NON STAFF Primary Care Provider UnavailCARL Michaels Referring Unavailable DEFRANCE, SUMANTH T Primary Care Unavailable MAYCO NOLEN Referring Unavailable DEFRANCE, SUMANTH T Primary Care Unavailable SOSA, CARL Referring Unavailable DEFRANCE, SUMANTH T Primary Care Unavailable REINMAYCO ASCENCIO Referring Unavailable DEFRANCE, SUMANTH Borges Primary Care [...] Attending Unavailable KING CLARK Attending Unavailable Sumanth Huang Primary Care Provider CARL SOSA Attending Unavailable [...] Unavailable DEFRANCE, SUMANTH T Primary Care Unavailable SOSACARL Attending Unavailable DEFRANCE, SUMANTH Borges Attending Unavailable DEFRANCE, SUMANTH T Referring Unavailable DEFRANCE, SUMANTH T Primary Care Unavailable DEFRANCE, SUMANTH T. Primary Care Unavailable DEFRANCE, SUMANTH Borges. Referring Unavailable DEFRANCE, SUMANTH T. Primary Care Unavailable SOSA, CARL Referring Unavailable DEFRANCESUMANTH Primary Care Unavailable SOSA, CARL Referring Unavailable [...] Unavailable Chloe DELUCA, Rosales Leon Attending Unavailable Defrance Sumanth DELUCA Primary Care Provider [phone] JOHNATHAN KRAUS Referring Unavailable DE SUMANTH LOZANO Primary Care Unavaila ble JOHNATHAN KRAUS Referring Unavailable DE SUMANTH LOZANO Primary Care Unavaila ble JOHNATHAN KRAUS Attending Unavailable LAKSHMIPATHY, NARENDRANATH Referring Unava ilable CA MARTA, SUMANTH MALIK Primary Care Unavaila ble JOHNATHAN KRAUS Attending Unavailable JOHNATHAN KRAUS Referring Unavailable CA MARTA, SUMANTH MALIK Primary Care Unavaila ble Medications Current Medications Medication Drug Class(es) Dates [...] Percocet Active amoxicillin 500 mg oral capsule (6 sources) Penicillin-class Antibacterial Start: 02-25-2024 End: 08-11-2024 amoxicillin (AMOXIL) 500 mg capsule 02/25/2024 08/11/2024 Discontinued (Alternate therapy) aspirin 81 mg delayed release oral tablet (5 sources) Platelet Aggregation Inhibitor, Nonsteroidal Anti-inflammatory Drug take 1 tablet by mouth once daily aspirin, enteric coated (ASPIRIN, ENTERIC COATED) 81 mg EC tablet Take 81 mg by mouth once daily. Active B-complex with vitamin C tablet (10 sources) take 2 tablets by mouth in [...] morning. 0 baclofen 10 mg oral tablet (6 sources) gamma-Aminobutyric Acid-ergic Agonist Start: 04-02-2024 End: 08-11-2024 take 0.5-1 tablets by mouth three times daily baclofen (LIORESAL) 10 mg tablet TAKE 1/2 - 1 TABLET BY MOUTH 3 TIMES A DAY 04/02/2024 08/11/2024 Discontinued (Alternate therapy) Calcium (5 sources) Phosphate Binder, Calcium Calcium + D3 Active calcium carbonate 1250 mg oral tablet (4 sources) calcium carbonat e (OS-JARRETT 500) 500 mg calcium (1,250 mg) tablet 1 (one) time each day at the same time Active calcium carbonate 1250 mg / cholecalciferol 200 unt oral tablet (10 sources) Vitamin D take 1 tablet by [...] Day Active ciprofloxacin 500 mg oral tablet (5 sources) Quinolone Antimicrobial Start: 03-05-2017 take 1 tablet by mouth once daily ciprofloxacin HCl (CIPRO) 500 mg tablet Take 1 tablet by mouth once daily. Until catheter removed 10 tablet 03/05/2017 Active cyclobenzaprine hydrochloride 10 mg oral tablet (13 sources) Muscle Relaxant Start: 05-22-2024 Cyclobenzaprine Active MG PO May 22, 2024 12:00am Start: 04-23-2024 cyclobenzaprin e (FLEXERIL) 10 mg tablet 04/23/2024 Active diclofenac sodium 75 mg delayed release oral tablet (20 sources) Nonsteroidal Anti-inflammatory Drug Start: 01-19-2024 End: 12-27-2023 take 75 mg by mouth twice daily Diclofenac Sodium Active 75 MG PO Twice daily January 29, 2024 12:00am Diclofenac Activ e docusate sodium 100 mg oral capsule (5 sources) Start: 03-05-2017 take 1 capsule by mouth twice daily docusate sodium (COLACE) 100 mg capsule Take 1 capsule by mouth twice daily. To prevent constipation. If you develop diarrhea, please stop this medication. 20 capsule 03/05/2017 Active ELDERBERRY FRUIT (6 sources) ELDERBERRY FRUIT ORAL Take by mouth. Active ELDERBERRY FRUIT ORAL Take by mouth in the morning and at bedtime. Active Elderberry preparation (5 sources) Elderberry 500 M G as directed Orally Active gabapentin 300 mg oral capsule (20 sources) Anti-epileptic Agent Start: 05-22-2024 gabapentin (NEURONTIN) [...] Discharge) ketorolac tromethamine 10 mg oral tablet (5 sources) Nonsteroidal Anti-inflammatory Drug, Cyclooxygenase Inhibitor Start: [...] 42 tablet 0 12/27/2023 01/10/2024 Active methylPREDNISolone (14 sources) Corticosteroid Start: 04-23-2024 End: 08-11-2024 methylPREDNISolone (MEDROL, DEMOND,) 4 mg tablet Indications: Spondylolisthesis of lumbar region follow package directions 21 tablet 04/23/2024 08/11/2024 Discontinued (Alternate therapy) Start: 04-23-2024 methylPREDNISo lone (MEDROL, DEMODN,) 4 mg tablet Indications: Spondylolisthesis of lumbar region follow package directions 21 tablet 04/23/2024 Active Start: 02-12-2024 methylPREDNISo lone (MEDROL, DEMOND,) 4 [...] Active mv-min/folic/K1/lycopen/lute in (CENTRUM SILVER MEN ORAL) (10 sources) take 1 tablet by mouth once [...] Active oxybutynin chloride 5 mg oral tablet (5 sources) Cholinergic Muscarinic Antagonist Start: 03-06-2017 take [...] tablet 5 mg OXYCODONE HCL/ACETAMINOPHEN (PERCOCET ORAL) (5 sources) take 1 tablet by [...] 11/13/2023 Active sildenafil 20 mg oral tablet (5 sources) Phosphodiesterase 5 Inhibitor Start : 05-01 [...] Discontinued docusate sodium 50 mg / sennosides, mcfp 8.6 mg oral tablet (1 source) Start: [...] Administer over 2-5 minutes. polyethylene glycol 3350 06611 mg powder for oral solution (1 source) [...] Documented Date Episodic/Chronic Blindness and vision defects (13 sources) Visual impairment; Translations: [Unspecified visual loss] Onset: 12-20-2023 12-20-2023 Chronic Cancer of prostate (20 sources) Malignant tumor of prostate; Translations: [Malignant neoplasm of prostate] Onset: 11-20-2016 03-05-2017 Chronic Disorders of lipid metabolism (3 sources) Pure [...] region] Onset: 04-23-2024 Episodic Other acquired deformities (6 sources) Lumbar spondylolisthesis; Translations: [Spondylolisthesis, lumbar region] 11-25-2024 Episodic Other connective tissue disease (1 source) [...] conditions (not mental disorders or infectious disease) (20 sources) Radiology result abnormal; Translations: [Abnormal findings on diagnostic imaging of other parts of musculoskeletal system] Onset: 10-09-2016 Resolved: 12-20-2023 11-25-2024 Episodic Sprains and strains (4 sources) Other [...] Date Documented Date Episodic/Chronic Cancer of prostate (5 sources) History of malignant neoplasm of prostate; Translations: [Personal history of malignant neoplasm of prostate] Onset: 10-04-2023 10-04-2023 Episodic Genitourinary symptoms and ill-defined conditions (2 sources) Unspecified abnormal findings in urine; Translations: [Abnormal urine] Onset: 12-20-2023 12-20-2023 Episodic Intestinal obstruction without hernia (20 sources) Partial obstruction of small bowel; Translations: [Partial intestinal obstruction, unspecified as to cause] Onset: 03-12-2017 Resolved: 12-20-2023 03-12-2017 Episodic Mood disorders (18 sources) Mood disorders Onset: 07-29-2023 Resolved: 08-11-2024 07-29-2023 Other aftercare (1 source) Encounter for therapeutic drug level monitoring; Translations: [Encounter for therapeutic drug level monitoring] Onset: 12-20-2023 Episodic Other aftercare (1 source) care home (current) 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 of 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; 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] Onset: 12-20-2023 Episodic Other aftercare (1 source) Monitoring status; Translations: [Encounter for therapeutic drug level monitoring] 12-20-2023 Episodic Other connective tissue disease (3 [...] 02-12-2024 02-12-2024 Episodic Other connective tissue disease (17 sources) Neurogenic claudication; Translations: [Other symptoms and signs involving the nervous system] Onset: 12-17-2023 11-14-2023 Episodic Other connective tissue disease (1 source) Pain in right lower limb; Translations: [Pain in right leg] 02-12-2024 Episodic Other non-traumatic joint disorders (5 sources) Pain in right shoulder; Translations: [Pain in right shoulder] Onset: 06-24-2023 Episodic Other skin disorders (20 sources) Eruption; Translations: [Rash and other nonspecific skin eruption] Onset: 03-12-2017 Resolved: 12-20-2023 03-12-2017 Episodic Residual codes; unclassified (3 sources) Other specified postprocedural states; Translations: [Other specified postprocedural states] Onset: 02-12-2024 Episodic Residual codes; unclassified (2 sources) Unspecified symptoms and signs involving general sensations and perceptions; Translations: [Unspecified symptoms and signs involving general sensations and perceptions] Onset: 02-12-2024 Episodic Residual codes; unclassified (18 sources) Localized edema; Translations: [Localized edema] Onset: 02-08-2020 02-08-2020 Episodic Residual codes; unclassified (2 sources) History of lumbar laminectomy; Translations: [Other specified postprocedural states] 04-23-2024 Episodic Residual codes; unclassified (1 source) Cognitive [...] PAIN, UNSPECIFIED] Onset: 11-22-2022 Urinary tract infections (20 sources) Urinary tract infectious disease; Translations: [Urinary tract infection, site not specified] Onset: 05-08-2017 Resolved: 10-04-2023 05-08-2017 Episodic Varicose veins of lower extremity (18 sources) Pain co-occurrent and due to varicose veins of right leg; Translations: [Varicose veins of right lower extremity with pain] Onset: 02-08-2020 02-08-2020 Episodic Results Test Name Value Interpretation Reference Range Facility NM BONE 3 PHASEon 12-09-2024 NM BONE 3 PHASE * * *Final Report* * * * * * SEE BOTTOM OF REPORT FOR ADDENDED TEXT * * * DATE OF EXAM: Dec 09 2024 3:10PM [facility] 000[facility] - NM BONE 3 PHASE / PROCEDURE REASON: Abnormal findings on diagnostic imaging of other parts of musculoskeletal system * * * * Physician Interpretation * * * * * * * * * * * * ORIGINAL REPORT * * * * * * * * EXAM: THREE-PHASE BONE [...] and bilateral facet joints of L3-L4 level. * * * * * * * * ADDENDUM #1 * * * * * * * * Additional SPECT/CT images were obtained. SPECT imaging of the lumbar spine was also acquired. Low dose non-contrast CT of the same body region was obtained for attenuation correction and anatomic localization. 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[employer] Transcribe Date/Time: Dec 21 2024 9:33A Dictated by : CHARLENE WEBSTER MD This examination was interpreted and the report reviewed and electronically signed by: CHARLENE WEBSTER MD on Dec 09 2024 4:29PM EST This document has been addended by: CHARLENE WEBSTER MD on Dec 21 2024 9:35AM EST [id number] N [facility] NM BONE SPECTon 12-09-2024 NM BONE SPECT * * *Final Report* * * * * * SEE BOTTOM OF REPORT FOR ADDENDED TEXT * * * DATE OF EXAM: Dec 09 2024 3:10PM [facility] 0010 - NM BONE SPECT / PROCEDURE REASON: Spondylolisthesis of lumbar region * * * * Physician Interpretation * * * * * * * * * * * * ORIGINAL REPORT * * * * * * * * EXAM: THREE-PHASE BONE [...] and bilateral facet joints of L3-L4 level. * * * * * * * * ADDENDUM #1 * * * * * * * * Additional SPECT/CT images were obtained. SPECT imaging of the lumbar spine was also acquired. Low dose non-contrast CT of the same body region was obtained for attenuation correction and anatomic localization. 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 [facility] Provider, [facility] - 12/09/2024 * * *Final Report* * * DATE OF EXAM: Dec 09 2024 3:10PM [facility] 0009 - NM BONE 3 PHASE / [...] and bilateral facet joints of L3-L4 level. 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[facility] Transcribe Date/Time: Dec 09 2024 4:16P Dictated by : CHARLENE WEBSTER MD This examination was interpreted and the report reviewed and electronically signed by: CHARLENE WEBSTER MD on Dec 09 2024 4:29PM [facility] Panel Informationon 12-09 IMPRESSION: Degenerative uptake at the endplates of L4-5 level and bilateral facet joints of L3-L4 level. 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[facility] Transcribe Date/Time: Dec 09 2024 4:16P Dictated by : CHARLENE WEBSTER MD This examination was interpreted and the report reviewed and electronically signed by: CHARLENE WEBSTER MD on Dec 09 2024 4:29PM [facility] Radiology Study observation (narrative) [facility] No Panel InformationOrdered By: [facility] Provider on 12-09-2024 [facility] ic SPECT Boneon 12-09-2024 * * *Final Report* * * DATE OF EXAM: Dec 09 2024 3:10PM N 0010 - NM BONE SPECT / PROCEDURE [...] shoulders, sternoclavicular, left knee, wrists and feet. [facility] Provider, [facility] - 12/09/2024 * * *Final Report* * * DATE OF EXAM: Dec 09 2024 3:10PM N 0010 - NM BONE SPECT / PROCEDURE [...] and bilateral facet joints of L3-L4 level. 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[employer] Transcribe Date/Time: Dec 09 2024 4:16P Dictated by : CHARLENE WEBSTER MD This examination was interpreted and the report reviewed and electronically signed by: CHARLENE WEBSTER MD on Dec 09 2024 4:29PM [facility] CNOVon 11-25-2024 CNOV Office Visit (SPNSMN ) REGAN GREEN ([id number]) 1950 M Date Time Provider Department 11/25/24 3:10 PM JOHNATHAN KRAUS SPNSMN During your visit today, we recorded the following information about you: Pulse Blood pressure Weight Height 80/minute 139/87 102.1 kg 1.753 m Johnathan Kraus MD 12/01/2024 7:07 AM Signed SPINE SURGERY NEW PATIENT PCP: Sumanth Huang MD REFERRING PROVIDER: Lisa Palm [address] [address] 30 minutes Assessment/Plan No diagnosis found. Regan [...] SPECT By signing my name below, I, Shireenleigh Ding, attest that this documentation has been [...] exam Dec (more content not included)... Normal [facility] CBC AND AUTO DIFFon 08-25-20 24 ABSOLUTE BASOPHIL 0.1 X10E9/L Normal 0.0-0.2 [facility] Comment on above: Performed By: #### T HYR, 24524-4, CMP, CBCA #### [facility] ([id number]) [address], [address] [place] [address] ABSOLUTE NEUTROPHIL 3.7 X10E9/L Normal 1.5-6.6 [facility] Comment on above: Performed By: #### T HYR, 41515-7, CMP, CBCA #### [facility] ([id number]) [address], [address] [place] [address] Basophils/100 WBC (Bld) 1.1 % Normal [facility] Comment on above: Performed By: #### T HYR, 31936-2, CMP, CBCA #### [facility] ([id number]) [address], [address] [place] [address] Eosinophils (Bld) [#/Vol] 0.2 10*3/uL Normal 0.0-0.4 [facility] Comment on above: Performed By: #### T HYR, 78031-1, CMP, CBCA #### [facility] ([id number]) [address], [address] [place] [address] Eosinophils/100 WBC (Bld) 2.6 % Normal [facility] Comment on above: Performed By: #### T HYR, 78700-7, CMP, CBCA #### [facility] ([id number]) [address], [address] [place] [address] Erythrocyte distribution width (RBC) [Ratio] 13.5 % Normal 11.5-15.0 [facility] Comment on above: Performed By: #### T HYR, 50435-5, CMP, CBCA #### [facility] ([id number]) [address], [address] [place] [address] Hematocrit (Bld) [Volume fraction] 44.7 % Normal 39-49 [facility] Comment on above: Performed By: #### T HYR, 83084-2, CMP, CBCA #### [facility] ([id number]) [address] [place] [address] Hemoglobin (Bld) [Mass/Vol] 15.0 g/dL Normal 13.0-17.0 [facility] Comment on above: Performed By: #### T HYR, 56117-9, CMP, CBCA #### [facility] ([id number]) [address], [address] [place] [address] Lymphocytes (Bld) [#/Vol] 1.5 10*3/uL Normal 1.0-3.5 [facility] Comment on above: Performed By: #### T NOE, 94895-9, CMP, CBCA #### [facility] ([id number]) [address], [facility] [address] [place] [address] Lymphocytes/100 WBC (Bld) 23.5 % Normal [facility] Comment on above: Performed By: #### T NOE, 06582-4, CMP, CBCA #### [facility] ([id number]) [address], [facility] [address] [place] [address] MCH (RBC) [Entitic mass] 32.1 pg Normal 27-34 [facility] Comment on above: Performed By: #### T NOE, 12889-0, CMP, CBCA #### [facility] ([id number]) [address] [place] [address] MCHC (RBC) [Mass/Vol] 33.6 g/dL Normal 32-36 [facility] Comment on above: Performed By: #### T MACIER, 27528-3, CMP, CBCA #### [facility] ([id number]) [address] [place] [address] MCV (RBC) [Entitic vol] 96 fL Normal 80-100 [facility] Comment on above: Performed By: #### T HYR, 98936-1, CMP, CBCA #### [facility] ([id number]) [address] [place] [address] Monocytes (Bld) [#/Vol] 0.8 10*3/uL Normal 0-0.9 [facility] Comment on above: Performed By: #### T NOE, 88163-2, CMP, CBCA #### [facility] ([id number]) [address], [address] [place] [address] Monocytes/100 WBC (Bld) 13.1 % Normal [facility] Comment on above: Performed By: #### T MACIER, 31444-9, CMP, CBCA #### [facility] ([id number]) [address], [address] [place] [address] Neutrophils/100 WBC (Bld) 59.7 % Normal [facility] Comment on above: Performed By: #### T NOE, 99676-0, CMP, CBCA #### [facility] ([id number]) [address], [address] [place] [address] Platelet mean volume (Bld) [Entitic vol] 7.5 fL Normal 7-12 [facility] Comment on above: Performed By: #### T NOE, 92533-7, CMP, CBCA #### [facility] ([id number]) [address], [address] [place] [address] Platelets (Bld) [#/Vol] 246 10*3/uL Normal 150-450 [facility] Comment on above: Performed By: #### T NOE, 02990-0, CMP, CBCA #### [facility] ([id number]) [address], [address] [place] [address] RBC COUNT 4.68 X10E12/L Normal 4.10-5.70 [facility] Comment on above: Performed By: #### T HYR, 62177-0, CMP, CBCA #### [facility] ([id number]) [address], [address] [place] [address] WBC (Bld) [#/Vol] 6.2 10*3/uL Normal 4.0-11.0 [facility] Comment on above: Performed By: #### T NOE, 14013-4, CMP, CBCA #### [facility] ([id number]) [address], [address] [place] [address] COMPREHENSIVE METABOLIC PANE Sandoval 08-25-2024 Albumin [Mass/Vol] 4.6 g/dL Normal 3.2-5.3 [facility] [place] Comment on above: Performed By: #### T MACIER, 96712-7, CMP, CBCA #### [facility] ([id number]) [address], [address] [place] [address] ALP [Catalytic activity/Vol] 77 U/L Normal 39-130 [facility] Comment on above: Performed By: #### T MACIER, 44875-6, CMP, CBCA #### [facility] ([id number]) [address], [address] [place] [address] ALT [Catalytic activity/Vol] 36 U/L Normal 0-40 [facility] Comment on above: Performed By: #### T HYR, 21503-4, CMP, CBCA #### [facility] ([id number]) [address], [address] [place] [address] Anion gap [Moles/Vol] 11 mmol/L Normal 5-15 [facility] Comment on above: Performed By: #### T HYR, 80345-1, CMP, CBCA #### [facility] ([id number]) [address], [address] [place] [address] AST [Catalytic activity/Vol] 31 U/L Normal 0-41 [facility] Comment on above: Performed By: #### T HYR, 82708-1, CMP, CBCA #### [facility] ([id number]) [address], [address] [place] [address] Bilirubin [Mass/Vol] 0.5 mg/dL Normal 0.3-1.2 [facility] Comment on above: Performed By: #### T HYR, 27772-3, CMP, CBCA #### [facility] ([id number]) [address], [address] [place] [address] Calcium [Mass/Vol] 9.3 mg/dL Normal 8.5-10.5 [facility] Comment on above: Performed By: #### T NOE, 50815-4, CMP, CBCA #### [facility] ([id number]) [address], [address] [place] [address] Chloride [Moles/Vol] 104 mmol/L Normal 98-109 [facility] Comment on above: Performed By: #### T NOE, 31842-8, CMP, CBCA #### [facility] ([id number]) [address], [address] [place] [address] CO2 [Moles/Vol] 27 mmol/L Normal 22-32 [facility] Comment on above: Performed By: #### Morales LIU, 84616-8, CMP, CBCA #### [facility] ([id number]) [address], [address] [place] [address] Creatinine [Mass/Vol] 0.68 mg/dL Normal 0.60-1.30 [facility] Comment on above: Result Comment: METH OD TRACEABLE TO IDMS STANDARD Performed By: #### T NOE, 94304-4, CMP, CBCA #### [facility] ([id number]) [address], [address] [place] [address] eGFR (CKD-EPI) NON-RACE DEPENDENT >90 Normal >59 [facility] Comment on above: Result Comment: Reported eGFR is based on the CKD-EPI 2020 equation that does not use a race coefficient. Performed By: #### T NOE, 30665-1, CMP, CBCA #### [facility] ([id number]) [address], [address] [place] [address] Glucose [Mass/Vol] 84 mg/dL Normal 65-99 [facility] Comment on above: Performed By: #### T MACIER, 69257-8, CMP, CBCA #### [facility] ([id number]) [address], [address] [place] [address] Potassium [Moles/Vol] 5.0 mmol/L Normal 3.5-5.0 [facility] Comment on above: Performed By: #### T MACIER, 09866-5, CMP, CBCA #### [facility] ([id number]) [address], [address] [place] [address] Protein [Mass/Vol] 7.2 g/dL Normal 6.0-8.0 [facility] Comment on above: Performed By: #### T MACIER, 78365-8, CMP, CBCA #### [facility] ([id number]) [address], [address] [place] [address] Sodium [Moles/Vol] 142 mmol/L Normal 134-146 [facility] [place] Comment on above: Performed By: #### T MACIER, 05932-5, CMP, CBCA #### [facility] ([id number]) [address], [address] [place] [address] Urea nitrogen [Mass/Vol] 15 mg/dL Normal 5-27 [facility] Comment on above: Performed By: #### T MACIER, 00505-5, CMP, CBCA #### [facility] ([id number]) [address], [address] [place] [address] Lipid 1996 panelon 4 Cholesterol [Mass/Vol] 191 mg/dL Normal 150-200 [facility] Comment on above: Performed By: #### T HYR, 30514-9, CMP, CBCA #### [facility] ([id number]) [address], [address] [place] [address] Cholesterol in HDL [Mass/Vol] 54 mg/dL Normal >39 [facility] Comment on above: Result Comment: HDL <40 mg/dL - High Risk HDL > or = 40mg/dL- Desirable HDL >60 mg/dL - Negative Risk Performed By: #### Morales LIU, 80117-6, CMP, CBCA #### [facility] ([id number]) [address], [address] [place] [address] Cholesterol in LDL [Mass/Vol] 127 mg/dL Normal <130 [facility] Comment on above: Result Comment: LDL <100 mg/dL - Desirable LDL >160 mg/dL - High Risk Performed By: #### Morales LIU, 37098-0, CMP, CBCA #### [facility] ([id number]) [address], [address] [place] [address] Cholesterol in VLDL [Mass/Vol] 10 mg/dL Normal 0-30 [facility] Comment on above: Performed By: #### Morales LIU, 37262-1, CMP, CBCA #### [facility] ([id number]) [address], [address] [place] [address] CHOLESTEROL:HDL 3.5 Normal 1.0-5.0 [facility] Comment on above: Performed By: #### Morales LIU, 80492-8, CMP, CBCA #### [facility] ([id number]) [address], [address] [place] [address] Triglyceride [Mass/Vol] 50 mg/dL Normal 27-150 [facility] Comment on above: Performed By: #### Morales LIU, 05006-1, CMP, CBCA #### [facility] ([id number]) [address] [address] [place] [address] THYROID PROFILEon 08-25-2024 Free T4 [Mass/Vol] 0.93 ng/dL Normal 0.61-1.60 [facility] [place] Comment on above: Performed By: #### T HYR, 58652-2, CMP, CBCA #### [facility] ([id number]) [address], [address] [place] [address] TSH 6.45 uIU/mL High 0.49-4.67 [facility] Comment on above: Performed By: #### T HYR, 59663-1, CMP, CBCA #### [facility] ([id number]) [address], [facility] [address] [place] [address] Prostate specific Ag [Mass/V ol]on 04-28-2024 PROSTATIC SPEC ANT <0.01 Normal 0.00-4.00 [facility] [place] Comment on above: Result Comment: The method used for this test is [employer] DXI chemiluminescent immunoassay. Values obtained by different assay methods cannot be used interchangeably. Performed By: #### 2 857-1 #### [facility] ([id number]) [address] [address] XR Lumbar spine 2 or 3 Views on 04-24-2024 Lumbosacral spine: 04/23/2024 10:15 AM. Reason for [...] Juarez Granados MD on 04/24/2024 2:36 PM [facility] - 04/24/2024 Lumbosacral spine: 04/23/2024 10:15 AM. Reason for [...] Juarez Granados MD on 04/24/2024 2:36 PM [employer] XR Lumbar spine 2 or 3 Views Ordered By: Juarez Granados on 04-24-2024 [employer] Work Phone: XR SPINE LUMBAR 2 OR 3 VWSon [...] Granados MD on 04/24/2024 2:36 PM Normal [facility] XR Lumbar spine 2 or 3 Views on 04-23-2024 Radiology Study observation (narrative) [facility] MR LUMBAR SPINE WO CONTon [...] Johnathan Matute on 04/22/2024 2:10 PM Normal [facility] XR SPINE LUMB BENDING ONLY [...] Menjivar MD on 02/13/2024 2:22 PM Normal [facility] BASIC METABOLIC PANLon 12-27 Anion gap [Moles/Vol] 8 mmol/L Normal 5-15 [facility] Comment on above: Performed By: #### C TIP PÉREZ, , 86339-8 ####[facility] ([id number])[address], [address] [place] [address] Calcium [Mass/Vol] 9.2 mg/dL Normal 8.5-10.5 [facility] Comment on above: Performed By: #### C TIP PÉREZ, , 71438-5 ####[facility] ([id number])[address], [address] [address] Chloride [Moles/Vol] 103 mmol/L Normal 98-109 [facility] Comment on above: Performed By: #### C ELISA, [facility], , 77972-1 ####[facility] ([id number])[address], [address] [address] CO2 [Moles/Vol] 28 mmol/L Normal 22-32 [facility] Comment on above: Performed By: #### C ELISA, [facility], , 14732-0 ####[facility] ([id number])[address] [address] [address] Creatinine [Mass/Vol] 0.77 mg/dL Normal 0.60-1.30 [facility] Comment on above: Result Comment: METH OD TRACEABLE TO IDMS STANDARD Performed By: #### C ELISA, [facility], , 56748-4 ####[facility] ([id number])[address] [address] [address] eGFR (CKD-EPI) NON-RACE DEPENDENT >90 Normal >59 [facility] Comment on above: Result Comment: Reported eGFR is based on the CKD-EPI 2020 equation that does not use a race coefficient. Performed By: #### C ELISA, TIP, , 47639-2 ####[facility] ([id number])[address] [address] [address] Glucose [Mass/Vol] 110 mg/dL High 65-99 [facility] Comment on above: Performed By: #### Sujey PÉREZ, TIP, , 32095-4 ####[facility] ([id number])[address] [address] [address] Potassium [Moles/Vol] 4.3 mmol/L Normal 3.5-5.0 [facility] Comment on above: Performed By: #### C ELISA, [facility], , 71191-2 ####[facility] ([id number])[address], [address] [place] [address] Sodium [Moles/Vol] 139 mmol/L Normal 134-146 [facility] Comment on above: Performed By: #### C ELISA, TIP, , 27435-9 ####[facility] ([id number])[address], [address], [place] [address] Urea nitrogen [Mass/Vol] 14 mg/dL Normal 5-27 [facility] Comment on above: Performed By: #### C ELISA, [facility], , 12880-6 ####[facility] ([id number])[address], [address] [place] [address] Basic Metabolic Panelon 12-06 Anion gap [Moles/Vol] 8 mmol/L 5 - 15 mmol/L [facility] Calcium [Mass/Vol] 9.2 mg/dL 8.5 - 10. 5 mg/dL [facility] Chloride [Moles/Vol] 103 mmol/L 98 - 10 9 mmol/L [facility] CO2 [Moles/Vol] 28 mmol/L 22 - 32 mmol/L [facility] Creatinine [Mass/Vol] 0.77 mg/dL 0.60 - 1.30 mg/dL [facility] Comment on above: METHOD TRACEABLE TO IDMS STANDARD eGFR (CKD-EPI)non-race dependent - PINF [facility] Comment on above: Reported eGFR is based on the CKD-EPI 2020 equation that does not use a race coefficient. Glucose [Mass/Vol] 110 mg/dL High 65 - 99 mg/dL [facility] Interpretation and review of laboratory results Abnormal [facility] Potassium [Moles/Vol] 4.3 mmol/L 3.5 - 5.0 mmol/L [facility] Sodium [Moles/Vol] 139 mmol/L 134 - 146 mmol/L [facility] Urea nitrogen [Mass/Vol] 14 mg/dL 5 - 27 mg/dL [facility] CBC without diffon Erythrocyte distribution width (RBC) [Ratio] 13.3 % 11.5 - 15.0 % [facility] Hematocrit (Bld) [Volume fraction] 36.3 % Low 39 - 49 % [facility] Hemoglobin (Bld) [Mass/Vol] 12.4 g/dL Low 13.0 - 17.0 g/dL [facility] Interpretation and review of laboratory results Abnormal [facility] MCH (RBC) [Entitic mass] 30.2 pg 27 - 34 pg [facility] MCHC (RBC) [Mass/Vol] 34.2 g/dL 32 - 36 g/dL P [facility] MCV (RBC) [Entitic vol] 88 fL 80 - 100 fL [facility] Platelet mean volume (Bld) [Entitic vol] 7.2 fL 7 - 12 fL [facility] Platelets (Bld) [#/Vol] 243 10*3/uL [facility] RBC (Bld) [#/Vol] 4.12 10*6/uL [facility] WBC corrected for nucl RBC Auto (Bld) [#/Vol] 11.6 [facility] COMPLETE BLOOD COUNTon 12-27 Erythrocyte distribution width (RBC) [Ratio] 13.3 % Normal 11.5-15.0 [facility] Comment on above: Performed By: #### C TIP PÉREZ, 07979-2, 31174-6 ####[facility] ([id number])[address], [address] [place] [address] Hematocrit (Bld) [Volume fraction] 36.3 % Low 39-49 [facility] Comment on above: Performed By: #### C TIP PÉREZ, 54149-6, 53581-0 ####[facility] ([id number])[address], [place] [address] Hemoglobin (Bld) [Mass/Vol] 12.4 g/dL Low 13.0-17.0 [facility] Comment on above: Performed By: #### C BC, BMP, , 57258-4 ####[facility] ([id number])[address], [address] [address] MCH (RBC) [Entitic mass] 30.2 pg Normal 27-34 [facility] Comment on above: Performed By: #### Sujey BC, BMP, , 54908-3 ####[facility] ([id number])[address], [address] [address] MCHC (RBC) [Mass/Vol] 34.2 g/dL Normal 32-36 [facility] Comment on above: Performed By: #### Sujey BC, BMP, , 30366-9 ####[facility] ([id number])[address], [address] [address] MCV (RBC) [Entitic vol] 88 fL Normal 80-100 [facility] Comment on above: Performed By: #### Sujey PÉREZ, BMP, , 58241-7 ####[facility] ([id number])[address] [address] [address] Platelet mean volume (Bld) [Entitic vol] 7.2 fL Normal 7-12 [facility] Comment on above: Performed By: #### Sujey BC, BMP, , 70108-7 ####[facility] ([id number])[address] [address] [address] Platelets (Bld) [#/Vol] 243 10*3/uL Normal 150-450 [facility] Comment on above: Performed By: #### Sujey BC, BMP, , 85488-1 ####[facility] ([id number])[address], [address] [address] RBC COUNT 4.12 X10E12/L Normal 4.10-5.70 [facility] Comment on above: Performed By: #### C ELISA, TIP, , 09937-1 ####[facility] ([id number])[address], [address] [place] [address] WBC (Bld) [#/Vol] 11.6 10*3/uL High 4.0-11.0 [facility] Comment on above: Performed By: #### Sujey PÉREZ, TIP, , 19259-7 ####[facility] ([id number])[address], [address] [place] [address] ECG 12 leadon 12-27-2023 TRACEMASTERVUE [facility] Glucose Glucometer (BldC) [M ass/Vol]on 12-27-2023 Glucose [Mass/Vol] 98 mg/dL 65 - 99 mg/dL [facility] Glucose [Mass/Vol] 98 mg/dL Normal 65-99 [facility] MAGNESIUMon 12-27-2023 Magnesium [Mass/Vol] 1.9 mg/dL Normal 1.8-2.6 [facility] Comment on above: Performed By: #### C TIP PÉREZ, , 22953-0 ####[facility] ([id number])[address], [address] [place] [address] Magnesiumon 12-27-2023 Magnesium [Mass/Vol] 1.9 mg/dL 1.8 - 2 .6 mg/dL [facility] No Panel Informationon 12-27 [facility] TROPONIN Ion 12-27-2023 Troponin I.cardiac [Mass/Vol] ng/mL Normal 0.00-0.04 [facility] Comment on above: Performed By: #### Sujey PÉREZ, TIP, , 40386-3 ####[facility] ([id number])[address], [address] [place] [address] Troponin Ion 12-27-2023 Troponin I.cardiac [Mass/Vol] ng/mL 0.00 - 0.04 ng/mL [facility] Troponin I.cardiac [Mass/Vol ]on 12-27-2023 [facility] BASIC METABOLIC PANLon 12-26 Anion gap [Moles/Vol] 9 mmol/L Normal 5-15 [facility] Comment on above: Performed By: #### C ELISA, BMP #### [facility] ([id number]) [address], [address] [place] [address] Calcium [Mass/Vol] 9.4 mg/dL Normal 8.5-10.5 [facility] Comment on above: Performed By: #### Sujey PÉREZ, BMP #### [facility] ([id number]) [address], [address] [place] [address] Chloride [Moles/Vol] 106 mmol/L Normal 98-109 [facility] Comment on above: Performed By: #### Sujey PÉREZ, BMP #### [facility] ([id number]) [address], [address] [place] [address] CO2 [Moles/Vol] 25 mmol/L Normal 22-32 [facility] Comment on above: Performed By: #### Sujey PÉREZ, BMP #### [facility] ([id number]) [address], [address] [place] [address] Creatinine [Mass/Vol] 0.63 mg/dL Normal 0.60-1.30 [facility] Comment on above: Result Comment: METH OD TRACEABLE TO IDMS STANDARD Performed By: #### C ELISA, BMP #### [facility] ([id number]) [address], [facility] [address] [place] [address] eGFR (CKD-EPI) NON-RACE DEPENDENT >90 Normal >59 [facility] Comment on above: Result Comment: Reported eGFR is based on the CKD-EPI 2020 equation that does not use a race coefficient. Performed By: #### Sujey PÉREZ, BMP #### [facility] ([id number]) [address], [address] [place] [address] Glucose [Mass/Vol] 140 mg/dL High 65-99 [facility] Comment on above: Performed By: #### C BC, BMP #### [facility] ([id number]) [address], [address] [place] [address] Potassium [Moles/Vol] 4.6 mmol/L Normal 3.5-5.0 [facility] Comment on above: Performed By: #### C ELISA, BMP #### [facility] ([id number]) [address], [address] [place] [address] Sodium [Moles/Vol] 140 mmol/L Normal 134-146 [facility] Comment on above: Performed By: #### Sujey PÉREZ, BMP #### [facility] ([id number]) [address], [address] [place] [address] Urea nitrogen [Mass/Vol] 17 mg/dL Normal 5-27 [facility] Comment on above: Performed By: #### Sujey PÉREZ, BMP #### [facility] ([id number]) [address], [address] [place] [address] Basic Metabolic Panelon 12-06 Anion gap [Moles/Vol] 9 mmol/L 5 - 15 mmol/L [facility] Calcium [Mass/Vol] 9.4 mg/dL 8.5 - 10. 5 mg/dL [facility] Chloride [Moles/Vol] 106 mmol/L 98 - 10 9 mmol/L [facility] CO2 [Moles/Vol] 25 mmol/L 22 - 32 mmol/L [facility] Creatinine [Mass/Vol] 0.63 mg/dL 0.60 - 1.30 mg/dL [facility] Comment on above: METHOD TRACEABLE TO IDWI STANDARD eGFR (CKD-EPI)non-race dependent - PINF [facility] Comment on above: Reported eGFR is based on the CKD-EPI 2020 equation that does not use a race coefficient. Glucose [Mass/Vol] 140 mg/dL High 65 - 99 mg/dL [facility] Interpretation and review of laboratory results Abnormal [facility] Potassium [Moles/Vol] 4.6 mmol/L 3.5 - 5.0 mmol/L [facility] Sodium [Moles/Vol] 140 mmol/L 134 - 146 mmol/L [facility] Urea nitrogen [Mass/Vol] 17 mg/dL 5 - 27 mg/dL [facility] CBC without diffon Erythrocyte distribution width (RBC) [Ratio] 13.5 % 11.5 - 15.0 % [facility] Hematocrit (Bld) [Volume fraction] 37.5 % Low 39 - 49 % [facility] Hemoglobin (Bld) [Mass/Vol] 12.7 g/dL Low 13.0 - 17.0 g/dL [facility] Interpretation and review of laboratory results Abnormal [facility] MCH (RBC) [Entitic mass] 30.0 pg 27 - 34 pg [facility] MCHC (RBC) [Mass/Vol] 33.9 g/dL 32 - 36 g/dL P [facility] MCV (RBC) [Entitic vol] 89 fL 80 - 100 fL [facility] Platelet mean volume (Bld) [Entitic vol] 7.2 fL 7 - 12 fL [facility] Platelets (Bld) [#/Vol] 264 10*3/uL [facility] RBC (Bld) [#/Vol] 4.23 10*6/uL [facility] WBC corrected for nucl RBC Auto (Bld) [#/Vol] 12.6 [facility] COMPLETE BLOOD COUNTon 12-26 Erythrocyte distribution width (RBC) [Ratio] 13.5 % Normal 11.5-15.0 [facility] Comment on above: Performed By: #### C BC, BMP #### [facility] ([id number]) [address], [address] [place] [address] Hematocrit (Bld) [Volume fraction] 37.5 % Low 39-49 [facility] Comment on above: Performed By: #### C ELISA, BMP #### [facility] ([id number]) [address], [address] [place] [address] Hemoglobin (Bld) [Mass/Vol] 12.7 g/dL Low 13.0-17.0 [facility] Comment on above: Performed By: #### C ELISA, BMP #### [facility] ([id number]) [address], [address] [place] [address] MCH (RBC) [Entitic mass] 30.0 pg Normal 27-34 [facility] Comment on above: Performed By: #### C ELISA, BMP #### [facility] ([id number]) [address], [address] [place] [address] MCHC (RBC) [Mass/Vol] 33.9 g/dL Normal 32-36 [facility] Comment on above: Performed By: #### C ELISA, BMP #### [facility] ([id number]) [address], [address] [place] [address] MCV (RBC) [Entitic vol] 89 fL Normal 80-100 [facility] Comment on above: Performed By: #### C ELISA, BMP #### [facility] ([id number]) [address], [address] [place] [address] Platelet mean volume (Bld) [Entitic vol] 7.2 fL Normal 7-12 [facility] Comment on above: Performed By: #### C ELISA, BMP #### [facility] ([id number]) [address], [address] [place] [address] Platelets (Bld) [#/Vol] 264 10*3/uL Normal 150-450 [facility] Comment on above: Performed By: #### Sujey PÉREZ, BMP #### [facility] ([id number]) [address], [address] [place] [address] RBC COUNT 4.23 X10E12/L Normal 4.10-5.70 [facility] Comment on above: Performed By: #### C BC, BMP #### [facility] ([id number]) [address], [address] [place] [address] WBC (Bld) [#/Vol] 12.6 10*3/uL High 4.0-11.0 [facility] Comment on above: Performed By: #### C BC, BMP #### [facility] ([id number]) [address], [address] [place] [address] ABO Rh Repeaton 12-25-2023 ABO AB [facility] [...] Miguel Avelar on 12/25/2023 4:51 PM Normal [facility] RF Guidance for injection of [...] José Miguel Avelar on 12/25/2023 4:51 PM [facility] Radiology Study observation (narrative) [facility] RF Guidance for injection of Spine facet jointOrdered By: José Miguel Avelar on 12-25-2023 [facility] Work Phone: Bacteria identified Cx Nom ( U)on 12-21-2023 Service comment (Unsp spec) [Interp] <10,000 ORGANISMS/ML NORMAL URO GENITAL CORINA [facility] ABO Rh Repeaton 12-20-2023 ABO AB [facility] Rh Nom (Bld) Positive [facility] APTTon 12-20-2023 aPTT Coag (PPP) [Time] 31 s [facility] BASIC METABOLIC PANLon 12-20 Anion gap [Moles/Vol] 13 mmol/L Normal 5-15 [facility] Comment on above: Performed By: #### C ALEN PINR, 51222-9, BMP #### [facility] ([id number]) [address] [place] [address] Calcium [Mass/Vol] 10.1 mg/dL Normal 8.5-10.5 [facility] Comment on above: Performed By: #### C ALEN PINR, 96056-0, BMP #### [facility] ([id number]) [address] [place] [address] Chloride [Moles/Vol] 103 mmol/L Normal 98-109 [facility] Comment on above: Performed By: #### C BCA PINR, 17492-7, BMP #### [facility] ([id number]) [address] [place] [address] CO2 [Moles/Vol] 25 mmol/L Normal 22-32 [facility] Comment on above: Performed By: #### C BCA, PINR, 25755-9, BMP #### [facility] ([id number]) [address], [address] [place] [address] Creatinine [Mass/Vol] 0.76 mg/dL Normal 0.60-1.30 [facility] Comment on above: Result Comment: METH OD TRACEABLE TO IDMS STANDARD Performed By: #### C ALEN, PINR, 12566-6, BMP #### [facility] ([id number]) [address], [address] [place] [address] eGFR (CKD-EPI) NON-RACE DEPENDENT >90 Normal >59 [facility] Comment on above: Result Comment: Reported eGFR is based on the CKD-EPI 2020 equation that does not use a race coefficient. Performed By: #### C ALEN, PINR, 17010-1, BMP #### [facility] ([id number]) [address], [address] [place] [address] Glucose [Mass/Vol] 85 mg/dL Normal 65-99 [facility] Comment on above: Performed By: #### C BCA, PINR, 32737-9, BMP #### [facility] ([id number]) [address], [facility] [address] [place] [address] Potassium [Moles/Vol] 5.0 mmol/L Normal 3.5-5.0 [facility] Comment on above: Result Comment: SPEC IMEN HEMOLYZED, RESULTS INCREASED MODERATELY HEMOLYZED Performed By: #### C BCA, PINR, 14919-9, BMP #### [facility] ([id number]) [address] [place] [address] Sodium [Moles/Vol] 141 mmol/L Normal 134-146 [facility] Comment on above: Performed By: #### C BCA, PINR, 15157-6, BMP #### [facility] ([id number]) [address], [address] [place] [address] Urea nitrogen [Mass/Vol] 20 mg/dL Normal 5-27 [facility] Comment on above: Performed By: #### C MEG LOWRYR, 34048-8, BMP #### [facility] ([id number]) [address], [address] [place] [address] Basic Metabolic Panelon 12-05 Anion gap [Moles/Vol] 13 mmol/L 5 - 15 mmol/L [facility] Calcium [Mass/Vol] 10.1 mg/dL 8.5 - 10. 5 mg/dL [facility] Chloride [Moles/Vol] 103 mmol/L 98 - 10 9 mmol/L [facility] CO2 [Moles/Vol] 25 mmol/L 22 - 32 mmol/L [facility] Creatinine [Mass/Vol] 0.76 mg/dL 0.60 - 1.30 mg/dL [facility] Comment on above: METHOD TRACEABLE TO IDWI STANDARD eGFR (CKD-EPI)non-race dependent - PINF [facility] Comment on above: Reported eGFR is based on the CKD-EPI 2020 equation that does not use a race coefficient. Glucose [Mass/Vol] 85 mg/dL 65 - 99 mg/dL [facility] Potassium [Moles/Vol] 5.0 mmol/L 3.5 - 5.0 mmol/L [facility] Comment on above: SPECIMEN HEMOLYZED, RESULTS INCREASED MODERATELY HEMOLYZED Sodium [Moles/Vol] 141 mmol/L 134 - 146 mmol/L [facility] Urea nitrogen [Mass/Vol] 20 mg/dL 5 - 27 mg/dL [facility] CBC AND AUTO DIFFon 12-20-19 ABSOLUTE BASOPHIL 0.1 X10E9/L Normal 0.0-0.2 [facility] Comment on above: Performed By: #### C MEG LOWRYR, 06655-0, BMP #### [facility] ([id number]) [address], [address] [place] [address] ABSOLUTE NEUTROPHIL 4.4 X10E9/L Normal 1.5-6.6 [facility] Comment on above: Performed By: #### C ALEN PINR, 27227-0, BMP #### [facility] ([id number]) [address], [address] [place] [address] Basophils/100 WBC (Bld) 0.9 % Normal [facility] Comment on above: Performed By: #### C ALEN PINR, 10313-7, BMP #### [facility] ([id number]) [address], [facility] [address] [place] [address] Eosinophils (Bld) [#/Vol] 0.2 10*3/uL Normal 0.0-0.4 [facility] Comment on above: Performed By: #### C ALEN, PINR, 11067-7, BMP #### [facility] ([id number]) [address], [facility] [address] [place] [address] Eosinophils/100 WBC (Bld) 2.6 % Normal [facility] Comment on above: Performed By: #### Sujey LOWRY PINR, 14146-9, BMP #### [facility] ([id number]) [address], [facility] [address] [place] [address] Erythrocyte distribution width (RBC) [Ratio] 13.6 % Normal 11.5-15.0 [facility] Comment on above: Performed By: #### C ALEN PINR, 97706-0, BMP #### [facility] ([id number]) [address], [address] [place] [address] Hematocrit (Bld) [Volume fraction] 45.1 % Normal 39-49 [facility] Comment on above: Performed By: #### C ALEN, PINR, 83012-2, BMP #### [facility] ([id number]) [address], [facility] [address] [place] [address] Hemoglobin (Bld) [Mass/Vol] 15.5 g/dL Normal 13.0-17.0 [facility] Comment on above: Performed By: #### C ALEN PINTerese, 89217-8, BMP #### [facility] ([id number]) [address], [address] [place] [address] Lymphocytes (Bld) [#/Vol] 1.5 10*3/uL Normal 1.0-3.5 [facility] Comment on above: Performed By: #### C BUCKY LOWRY, 66317-7, BMP #### [facility] ([id number]) [address], [facility] [address] [place] [address] Lymphocytes/100 WBC (Bld) 21.7 % Normal [facility] Comment on above: Performed By: #### C BUCKY LOWRY, 88834-1, BMP #### [facility] ([id number]) [address], [address] [place] [address] MCH (RBC) [Entitic mass] 30.2 pg Normal 27-34 [facility] Comment on above: Performed By: #### C BUCKY LOWRY, 93368-9, BMP #### [facility] ([id number]) [address], [address] [place] [address] MCHC (RBC) [Mass/Vol] 34.4 g/dL Normal 32-36 [facility] Comment on above: Performed By: #### BUCKY Rm BCA, 28317-1, BMP #### [facility] ([id number]) [address], [address] [place] [address] MCV (RBC) [Entitic vol] 88 fL Normal 80-100 [facility] Comment on above: Performed By: #### Sujey LOWRY PINR, 33888-1, BMP #### [facility] ([id number]) [address], [address] [place] [address] Monocytes (Bld) [#/Vol] 1.0 10*3/uL High 0-0.9 [facility] Comment on above: Performed By: #### C ALEN, PINR, 99407-7, BMP #### [facility] ([id number]) [address], [address] [place] [address] Monocytes/100 WBC (Bld) 13.6 % Normal [facility] Comment on above: Performed By: #### Sujey LOWRY, PINR, 56154-6, BMP #### [facility] ([id number]) [address], [address] [place] [address] Neutrophils/100 WBC (Bld) 61.2 % Normal [facility] Comment on above: Performed By: #### Sujey LOWRY, PINR, 33322-9, BMP #### [facility] ([id number]) [address], [address] [place] [address] Platelet mean volume (Bld) [Entitic vol] 7.8 fL Normal 7-12 [facility] Comment on above: Performed By: #### Sujey LOWRY, PINR, 58016-0, BMP #### [facility] ([id number]) [address], [address] [place] [address] Platelets (Bld) [#/Vol] 269 10*3/uL Normal 150-450 [facility] Comment on above: Performed By: #### Sujey LOWRY, PINR, 98999-0, BMP #### [facility] ([id number]) [address], [address] [place] [address] RBC COUNT 5.12 X10E12/L Normal 4.10-5.70 [facility] Comment on above: Performed By: #### Sujey LOWRY, PINR, 91400-0, BMP #### [facility] ([id number]) [address], [address] [place] [address] WBC (Bld) [#/Vol] 7.1 10*3/uL Normal 4.0-11.0 [facility] Comment on above: Performed By: #### C BCA, PINR, 83814-8, BMP #### [facility] ([id number]) [address] [facility] [place] [address] CBC auto differentialon 12-05 Basophils (Bld) [#/Vol] 0.1 10*3/uL [facility] Basophils/100 WBC (Bld) 0.9 % [facility] Eosinophils (Bld) [#/Vol] 0.2 10*3/uL [facility] Eosinophils/100 WBC (Bld) 2.6 % [facility] Erythrocyte distribution width (RBC) [Ratio] 13.6 % 11.5 - 15.0 % [facility] Hematocrit (Bld) [Volume fraction] 45.1 % 39 - 49 % [facility] Hemoglobin (Bld) [Mass/Vol] 15.5 g/dL 13.0 - 17.0 g/dL [facility] Interpretation and review of laboratory results Abnormal [facility] Lymphocytes (Bld) [#/Vol] 1.5 10*3/uL [facility] Lymphocytes/100 WBC (Bld) 21.7 % [facility] MCH (RBC) [Entitic mass] 30.2 pg 27 - 34 pg [facility] MCHC (RBC) [Mass/Vol] 34.4 g/dL 32 - 36 g/dL P [facility] MCV (RBC) [Entitic vol] 88 fL 80 - 100 fL [facility] Monocytes (Bld) [#/Vol] 1.0 10*3/uL High [facility] Monocytes/100 WBC (Bld) 13.6 % [facility] Neutrophils (Bld) [#/Vol] 4.4 10*3/uL [facility] Neutrophils/100 WBC (Bld) 61.2 % [facility] Platelet mean volume (Bld) [Entitic vol] 7.8 fL 7 - 12 fL [facility] Platelets (Bld) [#/Vol] 269 10*3/uL [facility] RBC (Bld) [#/Vol] 5.12 10*6/uL [facility] WBC corrected for nucl RBC Auto (Bld) [#/Vol] 7.[address] [facility] No Panel Informationon 12-20 [facility] PROTIME AND INRon 12-20-2023 INR Coag (PPP) [Relative time] 1.0 {INR} Normal 0.8-1.1 [facility] Comment on above: Performed By: #### C BUCKY LOWRY, 44239-2, BMP #### [facility] ([id number]) [address], [address] [place] [address] PT Coag (PPP) [Time] 11.3 s Normal 9.8-13.2 [facility] Comment on above: Performed By: #### C BUCKY LOWRY, 29226-3, BMP #### [facility] ([id number]) [address], [address] [place] [address] Protime & INRon 12-20-2023 INR Coag (PPP) [Relative time] 1.0 {INR} [facility] PT Coag (PPP) [Time] 11.3 s [facility] Type and screenon 12-20-2023 ABO AB [facility] Rh Nom (Bld) Positive [facility] URINALYSISon 12-20-2023 Bilirubin Ql (U) Negative Normal NEG [facility] BLOOD/HGB Negative Normal NEG [facility] Color (U) YELLOW Normal YELLOW [facility] Glucose Ql (U) Negative Normal NEG [facility] Ketones Ql (U) Negative Normal NEG [facility] Leukocyte esterase Test strip Ql (U) Negative Normal NEG [facility] MUCOUS PRESENT Abnormal NONE [facility] Nitrite Ql (U) Negative Normal NEG [facility] pH (U) 6.0 [pH] Normal 5.0-8.5 [facility] Protein Ql (U) Trace Abnormal NEG [facility] R.B.CELLS 2 /hpf Normal 0-5 [facility] Specific gravity (U) [Rel density] 1.026 Normal 1.003-1.035 [facility] TURBIDITY CLEAR Normal CLEAR [facility] Urobilinogen (U) [Mass/Vol] mg/dL Normal <1.1 [facility] W.B.CELLS 2 /hpf Normal 0-5 [facility] URINE CULTUREon 12-20-2023 Bacteria identified Cx Nom (U) CULTURE RESULTS <10,000 ORGANISMS/ML NORMAL URO GENITAL CORINA Normal [facility] Comment on above: Performed By: #### 6 30-4 #### [facility] ([id number]) [address] [place] [address], [address] [place] [address] Urinalysison 12-20-2023 Bilirubin Ql (U) Negative Negative^Ne g ative [facility] Color (U) YELLOW YELLOW^YELLO W [facility] Glucose (U) [Mass/Vol] Negative Negative^Neg ative mg/dL [facility] Hemoglobin Auto test strip Ql (U) Negative Negative^Neg ative [facility] Interpretation and review of laboratory results Abnormal [facility] Ketones (U) [Mass/Vol] Negative Negative^Neg ative mg/dL [facility] Leukocyte esterase Auto test strip Ql (U) Negative Negative^Neg ative [facility] Mucus Ql (Urine sed) PRESENT Abnormal NONE^NONE [facility] Nitrite Auto test strip Ql (U) Negative Negative^Neg ative [facility] pH (U) 6.0 [pH] 5.0 - 8.5 [facility] Protein (U) [Mass/Vol] Trace Abnormal Negative^Neg ative mg/dL [facility] RBC Auto (Urine sed) [#/Area] 2 [facility] Specific gravity Refractometry automated (U) [Rel density] 1.026 1.003 - 1.035 [facility] Turbidity Ql (U) CLEAR CLEAR^CLEAR [facility] Urobilinogen Qn (U) NINF [facility] WBC Auto (Urine sed) [#/Area] [address] [facility] aPTT Coag (PPP) [Time]on aPTT Coag (Bld) [Time] 31 s Normal 26-37 [facility] Comment on above: Performed By: #### C BUCKY LOWRY, 06784-7, [facility] #### [facility] ([id number]) [address], [address] [place] [address] XR SPINE LUMB BENDING ONLY 2 -3 [...] Morrell MD on 11/16/2023 8:57 PM Normal [facility] MR LUMBAR SPINE WO CONTon [...] Ortega MD on 11/01/2023 10:24 AM Normal [facility] XR shoulder RT min 2V*on XR shoulder RT min 2V* [facility] Main [place] [address] [place] [address] XRay Report Signed Patient: Regan Green MR#: [id number] 65 : 1950 Acct:[id number] Age/Sex: 73 / M ADM Date: 06/24/23 Loc: [facility] Room: Type: [facility] Attending Dr: Charity Barkley MD Copies to: [...] Artie Goldsmith M.D.06/24/2023 12:37 PM Dictation Location: [place] [address] Transcribed By: [facility] 06/24/23 1237 Dictated By: Artie Goldsmith DO 06/24/23 1236 Signed By: 06/24/23 1237 Normal [facility] Covid-19 PCR ([facility])on SARS-CoV-2 (COVID-19) RNA YASMIN+probe Ql (Unsp spec) Not detected Normal NOT DETECTED [facility] Comment on above: Result Comment: This test is not yet approved or cleared by the [place] FDA. When there are no FDA-approved or cleared tests available, and other criteria are met, FDA can make tests available under an emergency access mechanism called an Emergency Use Authorization (EUA). The EUA for this test is supported by the Car Checker of Health and Human Service's (HHS's) declaration [...] consistent with SARS-CoV-2. Performed By: #### [facility] #### [facility] [address] [place] [address] Dr. Keely Fitzgerald MRI Shoulder w/o Lefton - MRI Shoulder w/o Left HISTORY: Lifting injury. [...] by Boogie Modi on 02/23/2022 1229 Normal [facility] Stay Cutter PELVIS 1 OR 2 [facility] 04-16-20 PELVIS 1 [facility] [id number] [place] [address] Patient Name: REGAN GREEN : 1950ex: MAge: Race: WhiteMRN: [id number]. Location: 84Patient Status: OVisit #: [id number] Date: 04/16/2018 9:20:00 AMCompleted Date: 04/16/2018 09:18 AMRequesting Provider: BILLY KILLIAN Attending Provider: BILLY KILLINA Report Copy To: Signs & Symptoms: M46.1 Sacroiliitis, not elsewhere classified [id number]: AthenaComments: , , , Ordering Provider - BILLY KILLIAN MD , Exam: PELVIS 1 OR 2 VWSAccession #: [id number] PEL VIS 1 OR 2 VWS 04/16/2018 [...] fracture Electronically signed by:Lea Le. Transcribed by: [email or web address], User Resident: Electronically Signed by: LEA LE @ 04/16/2018 10:35 AM Normal [facility] Comment on above: Order Comment: , , = ========= , Ordering Provider - BILLY KILLIAN MD , Vital Signs Date Time Vital Sign Value Performing Clinician Facility 11-25-2024 13:57-0500 Body height 175.3 cm Johnathan Kraus MD Work Phone: [facility] 11-25-2024 13:57-0500 Body mass index (BMI) [Ratio] 33.23 kg/m2 Johnathan Kraus MD Work Phone: [facility] 11-25-2024 13:57-0500 Body weight 102.06 kg Johnathan Kraus MD Work Phone: [facility] 11-25-2024 13:57-0500 Diastolic blood pressure 87 mm[Hg] Johnathan Kraus MD Work Phone: [facility] 11-25-2024 13:57-0500 Heart rate 80 /min Johnathan Kraus MD Work Phone: [facility] 11-25-2024 13:57-0500 SaO2% (BldA) [Mass fraction] 97 % Johnathan Kraus MD Work Phone: [facility] 11-25-2024 13:57-0500 Systolic blood pressure 139 mm[Hg] Johnathan Kraus MD Work Phone: [facility] 08-11-2024 09:12-0400 Body height 182.9 cm Sumanth Hill MD Work Phone: [facility] 08-11-2024 09:12-0400 Body mass index (BMI) [Ratio] 30.04 kg/m2 Sumanth Hill MD Work Phone: [facility] 08-11-2024 09:12-0400 Body temperature 96.8 [degF] Sumanth Hill MD Work Phone: [facility] 08-11-2024 09:12-0400 Body weight 100.47 kg Sumanth Hill MD Work Phone: [facility] 08-11-2024 09:12-0400 Diastolic blood pressure 82 mm[Hg] Sumanth Hill MD Work Phone: [facility] 08-11-2024 09:12-0400 Systolic blood pressure 134 mm[Hg] Sumanth Hill MD Work Phone: [facility] 06-04-2024 10:55-0400 Body height 182.9 cm Carl Sosa [employer] Work Phone: [facility] [facility] 06-04-2024 10:55-0400 Body mass index (BMI) [Ratio] 30.52 kg/m2 Carl Sosa [employer] Work Phone: [facility] 06-04-2024 10:55-0400 Body weight 102.06 kg Carl Sosa [employer] Work Phone: [facility] 06-04-2024 10:55-0400 Diastolic blood pressure 90 mm[Hg] Carl Sosa [employer] Work Phone: [facility] 06-04-2024 10:55-0400 Heart rate 87 /min Carl Sosa [employer] Work Phone: [facility] 06-04-2024 10:55-0400 Respiratory rate 16 /min Carl Sosa [employer] Work Phone: [facility] 06-04-2024 10:55-0400 Systolic blood pressure 138 mm[Hg] Carl Sosa [employer] Work Phone: [facility] 04-28-2024 12:59-0400 Body height 182.9 cm Minh Heller MD Work Phone: [facility] 04-28-2024 12:59-0400 Body mass index (BMI) [Ratio] 30.52 kg/m2 Minh Heller MD Work Phone: [facility] 04-28-2024 12:59-0400 Body weight 102.06 kg Minh Heller MD Work Phone: [facility] 04-28-2024 12:59-0400 Diastolic blood pressure 85 mm[Hg] Minh Heller MD Work Phone: [facility] 04-28-2024 12:59-0400 Heart rate 77 /min Minh Heller MD Work Phone: [facility] 04-28-2024 12:59-0400 Systolic blood pressure 130 mm[Hg] Minh Heller MD Work Phone: [facility] 04-23-2024 09:44-0400 Body height 185.4 cm Mayco Nolen MD Work Phone: [facility] 04-23-2024 09:44-0400 Body mass index (BMI) [Ratio] 29.69 kg/m2 Mayco Nolen MD Work Phone: [facility] 04-23-2024 09:44-0400 Body weight 102.06 kg Mayco Nolen MD Work Phone: [facility] 04-23-2024 09:44-0400 Diastolic blood pressure 75 mm[Hg] Mayco Nolen MD Work Phone: [facility] 04-23-2024 09:44-0400 Heart rate 79 /min Mayco Nolen MD Work Phone: [facility] 04-23-2024 09:44-0400 Systolic blood pressure 134 mm[Hg] Mayco Nolen MD Work Phone: [facility] 02-12-2024 09:03-0400 Body height 185.4 cm Carl Sosa [employer] Work Phone: [facility] 02-12-2024 09:03-0400 Body mass index (BMI) [Ratio] 28.37 kg/m2 Carl Sosa [employer] Work Phone: [facility] 02-12-2024 09:03-0400 Body weight 97.52 kg Carl Sosa [employer] Work Phone: [facility] 02-12-2024 09:03-0400 Diastolic blood pressure 87 mm[Hg] Carl Sosa [employer] Work Phone: [facility] 02-12-2024 09:03-0400 Heart rate 85 /min Carl Sosa [employer] Work Phone: [facility] 02-12-2024 09:03-0400 Systolic blood pressure 135 mm[Hg] Carl Sosa [employer] Work Phone: [facility] 12-27-2023 11:46-0500 Body temperature 98.29 [degF] Mayco Nolen MD Work Phone: [facility] 12-27-2023 11:46-0500 Diastolic blood pressure 77 mm[Hg] Mayco Nolen MD Work Phone: [facility] 12-27-2023 11:46-0500 Heart rate 84 /min Mayco Nolen MD Work Phone: [facility] 12-27-2023 11:46-0500 Respiratory rate 14 /min Mayco Nolen MD Work Phone: [facility] 12-27-2023 11:46-0500 Systolic blood pressure 127 mm[Hg] Mayco Nolen MD Work Phone: [facility] 12-27-2023 04:23-0500 SaO2% (BldA) [Mass fraction] 94 % Mayco Nolen MD Work Phone: [facility] 12-25-2023 22:54-0500 Body mass index (BMI) [Ratio] 28.76 kg/m2 Mayco Nolen MD Work Phone: [facility] 12-25-2023 22:54-0500 Body weight 96.2 kg Mayco Nolen MD Work Phone: [facility] 12-25-2023 13:27-0500 Body height 182.9 cm Mayco Nolen MD Work Phone: [facility] 12-20-2023 14:20-0500 Body height 182.9 cm [facility] 12-20-2023 14:20-0500 Body mass index (BMI) [Ratio] 29.39 kg/m2 [facility] 12-20-2023 14:20-0500 Body temperature 97.7 [degF] [facility] 12-20-2023 14:20-0500 Body weight 98.3 kg [facility] 12-20-2023 14:20-0500 Diastolic blood pressure 84 mm[Hg] [facility] 12-20-2023 14:20-0500 Heart rate 77 /min [facility] 12-20-2023 14:20-0500 Respiratory rate 18 /min [facility] 12-20-2023 14:20-0500 SaO2% (BldA) [Mass fraction] 97 % [facility] 12-20-2023 14:20-0500 Systolic blood pressure 132 mm[Hg] [facility] 11-14-2023 09:59-0500 Body height 180.3 cm Carl Sosa [employer] Work Phone: [facility] 11-14-2023 09:59-0500 Body mass index (BMI) [Ratio] 29.57 kg/m2 Carl Sosa [employer] Work Phone: [facility] 11-14-2023 09:59-0500 Body weight 96.16 kg Carl John [employer] Work Phone: [facility] 11-14-2023 09:59-0500 Diastolic blood pressure 86 mm[Hg] Carl Sosa [employer] Work Phone: [facility] 11-14-2023 09:59-0500 Heart rate 81 /min Carl Sosa [employer] Work Phone: [facility] 11-14-2023 09:59-0500 Systolic blood pressure 135 mm[Hg] Carl Sosa [employer] Work Phone: [facility] 05-21-2023 10:00-0400 Body height 182.88 cm Charity Barkley Other [employer] Other 05-21-2023 10:00-0400 Body mass index (BMI) [Ratio] 30.51 kg/m2 Charity Barkley Other [employer] Other 05-21-2023 10:00-0400 Body weight 102.06 kg Charity Barkley Other [employer] Other Encounters Encounter Date Encounter Type Care Provider Facility Start: 01-09-2025 End: 01-09-2025 ambulatory Johnathan Kraus MD Work Phone: [facility] Comment on above: Spondylolisthesis of lumbar region (Primary Dx); Abnormal findings on diagnostic imaging of other parts of musculoskeletal system Start: 01-09-2025 End: 01-09-2025 Telemedicine consultation with patient Johnathan Kraus MD Work Phone: [facility] Start: 12-09-2024 ambulatory JOHNATHAN KRAUS Fac ility:[facility] Start: 12-09-2024 End: 12-09-2024 Subsequent hospital visit by physician [facility] 2 Work Phone: [facility] Comment on above: Spondylolisthesis of lumbar region [M43.16] Start: 11-25-2024 End: 11-25-2024 ambulatory JOHNATHAN KRAUS Facility:[facility] Start: 11-25-2024 End: 11-25-2024 Patient encounter procedure Johnathan Kraus MD Work Phone: [facility] Comment on above: Spondylolisthesis of lumbar region (Primary Dx); Abnormal findings on diagnostic imaging of other parts of musculoskeletal system Start: 09-07-2024 End: 09-07-2024 ambulatory Rosales Corona MD Facility:[facility] Start: 08-26-2024 End: 08-26-2024 Orders Only Sumanth Hill MD Work Phone: [facility] Start: 08-25-2024 End: 08-25-2024 ambulatory [facility]ANTH [facility] Start: 08-11-2024 End: 08-11-2024 ambulatory SUMANTH T [facility] Start: 08-11-2024 Encounter for genera l adult medical examination without abnormal findings SUMAN[facility] Start: 08-11-2024 End: 08-11-2024 Patient encounter procedure Sumanth Hill MD Work Phone: [facility] Comment on above: Routine general medi jarrett examination at a health care facility (Primary Dx); Lumbar radiculopathy, chronic; Spondylolisthesis of lumbar region; Pure hypercholesterolemia; Adenocarcinoma of prostate ([facility]) Start: 08-11-2024 End: 08-11-2024 Patient encounter status Sumanth Hill MD Work Phone: [facility] Work Phone: Start: 07-31-2024 End: 07-31-2024 ambulatory [facility] Work Phone: Start: 07-31-2024 End: 07-31-2024 Patient encounter procedure [facility] Work Phone: Start: 07-27-2024 End: 07-27-2024 Telephone encounter Luanne Dowell RN Work Phone: [facility] Comment on above: Request for retro C9 Start: 07-01-2024 End: 07-03-2024 Chart abstracting Unk P[facility] (Hist) Neurology Start: 06-18-2024 End: 06-18-2024 ambulatory KING CLARK Not Available Start: 06-04-2024 End: 06-04-2024 ambulatory SUMANTH Borges [facility] Start: 06-04-2024 End: 06-04-2024 Office outpatient visit 40 minutes Carl Sosa [employer] Work Phone: [facility] Comment on above: Spondylolisthesis of lumbar region (Primary Dx) Start: 06-02-2024 End: 06-02-2024 ambulatory JESSICA REYES Not Available Start: 05-22-2024 End: 05-22-2024 ambulatory [facility] Work Phone: Start: 05-22-2024 End: 05-22-2024 Patient encounter procedure [facility] Work Phone: Start: 05-12-2024 End: 06-04-2024 ambulatory [facility] Start: 04-28-2024 End: 04-28-2024 Office outpatient visit 15 minutes Minh Heller MD Work Phone: [facility] Comment on above: Adenocarcinoma of pr ostate ([facility]) (Primary Dx) Start: 04-28-2024 End: 04-28-2024 ambulatory MINH HELLER [facility] Start: 04-27-2024 End: 04-27-2024 Telephone encounter Kayleigh Garcia LPN [facility] Start: 04-27-2024 End: 05-04-2024 ambulatory [facility] Start: 04-23-2024 End: 04-23-2024 ambulatory [facility] Start: 04-23-2024 End: 04-23-2024 Office outpatient visit 25 minutes Mayco Nolen MD Work Phone: [facility] Comment on above: Spondylolisthesis of lumbar region (Primary Dx); Status post lumbar laminectomy; Radiculopathy, lumbar region Start: 04-23-2024 End: 04-23-2024 ambulatory [facility] Start: 04-21-2024 End: 04-21-2024 ambulatory CARL [facility] Start: 04-06-2024 End: 05-04-2024 ambulatory [facility] Start: 03-04-2024 End: 04-04-2024 ambulatory [facility] Start: 02-14-2024 End: 03-04-2024 ambulatory [facility] Start: 02-12-2024 End: 02-12-2024 Postop follow up visit related to original px Carl Sosa [employer]IST Work Phone: [facility] Comment on above: Status post lumbar l aminectomy (Primary Dx); Low back pain, non-specific; Leg pain, right; Weakness of right lower extremity; Sensory deficit, right Start: 02-12-2024 End: 02-12-2024 ambulatory CARL SOSA [facility] Start: 01-29-2024 End: 01-29-2024 ambulatory [facility] Work Phone: Start: 01-29-2024 End: 01-29-2024 Patient encounter procedure [facility] Work Phone: Start: 12-28-2023 End: 12-28-2023 ambulatory MARIA M VÁSQUEZ [facility] Start: 12-25-2023 End: 12-28-2023 ambulatory [facility] Start: 12-25-2023 End: 12-27-2023 ambulatory [facility] Start: 12-25-2023 End: 12-27-2023 Subsequent hospital visit by physician Mayco Nolen MD Work Phone: [facility] Comment on above: Radiculopathy, lumba r region; Neurogenic claudication Start: 12-24-2023 Telephone encounter [facility] Comment on above: surgery Start: 12-20-2023 Telephone encounter Hoda Chirinos [facility] Start: 12-20-2023 End: 12-20-2023 Patient encounter procedure [facility] Comment on above: Radiculopathy, lumba r region; Neurogenic claudication; Monitoring for anticoagulant use; Abnormal urine findings Start: 12-20-2023 End: 12-20-2023 ambulatory [facility] Start: 12-18-2023 Documentation procedure Jasmin Noriega [employer]IST [facility] Start: 12-10-2023 Telephone encounter Myrtle Hatch LPN [facility] Comment on above: surgery Start: 12-05-2023 End: 01-03-2024 ambulatory [facility] Start: 11-27-2023 Telephone encounter [facility] Start: 11-22-2023 End: 12-05-2023 ambulatory [facility] Start: 11-18-2023 End: 11-18-2023 ambulatory Rosales Corona MD Facility:[facility] Start: 11-14-2023 End: 11-14-2023 ambulatory [facility] Start: 11-14-2023 End: 11-14-2023 Office outpatient new 45 minutes Carl Sosa [employer] SPECIALIST Work Phone: [facility] Comment on above: Neurogenic claudicat ion (Primary Dx); Lumbar radiculopathy, chronic Start: 11-14-2023 End: 11-14-2023 ambulatory [facility] Start: 11-05-2023 Telephone encounter Dolores Rm MA [facility] Comment on above: Er Follow-up Lumbar radiculopathy , chronic (Primary Dx) Start: 11-01-2023 End: 11-01-[address] [facility] Start: 10-31-2023 End: 10-31-2023 Emergency department patient visit [facility] Start: 10-30-2023 End: 10-30-2023 ambulatory Charity Calvey Other [employer] Other Start: 10-30-2023 Office outpatient vi sit 15 minutes Charityzafar Barkley [facility] Start: 10-22-2023 End: 10-23-2023 Emergency department patient visit MAEVE C[facility] Start: 08-20-2023 End: 08-20-2023 ambulatory Charity Calvey Other [employer] Other Start: 08-20-2023 Office outpatient vi sit 15 minutes Charity Calvey [facility] Start: 07-23-2023 End: 07-23-2023 ambulatory [address] Barkley Other [facility] Other Start: 07-23-2023 Office outpatient vi sit 15 minutes Charity Calvey [facility] Start: 06-24-2023 Office outpatient vi sit 15 minutes Charity Calvey [facility] Start: 06-24-2023 End: 06-24-2023 Patient encounter procedure MD Charity Barkley Work Phone: [facility] Start: 06-24-2023 End: 06-24-2023 ambulatory NON STAFF [facility] Work Phone: Start: 05-21-2023 Office outpatient ne w 30 minutes Charity Deshawnarnol [facility] Start: 05-21-2023 End: 05-21-2023 ambulatory MD Charity Barkley Work Phone: [facility] Work Phone: Start: 05-21-2023 End: 05-21-2023 Patient encounter procedure MD Charity Barkley Work Phone: [facility] Start: 03-19-2023 End: 03-20-2023 ambulatory NARENDRANATH LAKSHMIPATHY . Facility:[facility] Start: 02-21-2023 End: 02-22-2023 ambulatory NARENDRANATH LAKSHMIPATHY . Facility:[facility] Start: 12-18-2022 End: 12-19-[address] ROMERO SOSA . Facility:[facility] Start: 11-22-2022 End: 11-23-[address] ROMERO SOSA . Facility:[facility] Start: 10-11-2022 Encounter for preprocedural laboratory examination DR ROMERO SOSA . [facility] Start: 10-09-2022 End: 10-09-[address] ROMERO SOSA . Facility:[facility] Start: 10-05-2022 End: 10-06-[address] ROMERO SOSA . Facility:[facility] Start: 10-05-2022 End: 10-06-2022 Encounter for preprocedural laboratory examination DR ROMERO SOSA . Facility: Start: 10-01-2022 Encounter for preprocedural cardiovascular examination ISELA SALMERON . [facility] Start: 09-26-2022 End: 09-27-2022 ambulatory ISELA SALMERON [...] Start: 04-16-2018 End: 04-17-2018 Ambulatory BILLY KILLIAN Facility:[facility] Start: 01-28-2018 End: 01-29-2018 Ambulatory DEFAULT PHYSICIAN Facility:[facility] Procedures Date Procedure Procedure Detail Performing [...] lds trcg only w/o i&r Christina Varma [employer]IST Work Phone: Start: 12-27-2023 End: 12-27-2023 Basic metabolic panel calcium total Christina Varma [employer] SPECIALIST Work Phone: Start: 12-26-2023 Basic metabolic pane l calcium total Christina Varma [employer] SPECIALIST Work Phone: Start: 12-25-2023 Fluor needle/cath spine/paraspinal [...] Adult depression scr eening assessment Dolores Anderson [employer]OR CLOSER MECH[employer]IC Start: 06-24-2023 Plain X-ray of right shoulder MD Charity Barkley Work Phone: Start: 05-21-2023 Plain X-ray of left hand MD Charity Barkley Work Phone: Start: 03-25-2023 Colonoscopy Unk (Hist) Plan of Treatment Date Care Activity Detail Author Start: 08-25-2029 Lipid panel Lipid Screening [facility] Start: 07-30-2028 Lipid panel Lipid Screening [facility] Start: 08-25-2027 Diabetes Screening Diabetes Screening [facility] Start: 12-27-2026 Diabetes Screening Diabetes Screening [facility] Start: 08-18-2025 End: 08-18-2025 Patient encounter procedure 08/18/2025 8:00 AM EDT Office Visit [facility] [address] [place] [address] [facility] Start: 08-11-2025 Adult BMI Screening Adult BMI Screening [facility] Start: 08-11-2025 Depression Screening Depression Screening [facility] Start: 08-11-2025 Fall Risk Screening Fall Risk Screening [facility] Start: 08-11-2025 Medicare Annual Wellness Visit Medicare Annual Wellness Visit [facility] Start: 08-11-2025 Tobacco Screening Tobacco Screening [facility] Start: 06-04-2025 Adult BMI Screening Adult BMI Screening [facility] Start: 06-04-2025 Tobacco Screening Tobacco Screening [facility] Start: 04-28-2025 Adult BMI Screening Adult BMI Screening [facility] Start: 04-28-2025 Tobacco Screening Tobacco Screening [facility] Start: 04-23-2025 Adult BMI Screening Adult BMI Screening [facility] Start: 02-11-2025 Adult BMI Screening Adult BMI Screening [facility] Start: 02-11-2025 Tobacco Screening Tobacco Screening [facility] Start: 01-09-2025 End: 01-09-2025 ambulatory 01/09/2025 9:30 AM [facility] [address] [place] [address] Johnathan Kraus MD [address] [facility] [address] [place] [address] f/u with provider [facility] Comment on above: f/u with provider Start: 12-25-2024 Adult BMI Screening Adult BMI Screening [facility] Start: 12-25-2024 Tobacco Screening Tobacco Screening [facility] Start: 12-20-2024 Adult BMI Screening Adult BMI Screening [facility] Start: 12-20-2024 Tobacco Screening Tobacco Screening [facility] Start: 12-09-2024 End: 12-09-2024 Patient encounter procedure [facility] Comment on above: Weight 225 / Not Diabetic / DX: Abnormal findings on diagnostic imaging of other parts of musculoskeletal system [R93.7] WITH SPECT CT... Start: 11-14-2024 Adult BMI Screening Adult BMI Screening [facility] Start: 11-14-2024 Tobacco Screening Tobacco Screening [facility] Start: 11-04-2024 Advance Directive Discussion Advance Directive Discussion [facility] Start: 10-31-2024 Tobacco Screening Tobacco Screening [facility] Start: 10-23-2024 Fall Risk Screening Fall Risk Screening [facility] Start: 10-22-2024 Adult BMI Screening Adult BMI Screening [facility] Start: 08-11-2024 End: 08-11-2025 CBC W Auto Differential panel - Blood CBC auto differential Lab Routine Pure hypercholesterolemia Expected: 08/11/2024, Expires: 08/11/2025 [employer] Work Phone: Comment on above: Expected: 08/11/2024, Expires: Start: 08-11-2024 End: 08-11-2025 Comprehensive metabolic 2000 panel - Serum or Plasma Comprehensive metabolic panel Lab Routine Pure hypercholesterolemia Expected: 08/11/2024, Expires: 08/11/2025 [facility] Comment on above: Expected: 08/11/2024, Expires: Start: 08-11-2024 End: 08-11-2025 Lipid 1996 panel - Serum or Plasma Lipid profile Lab Routine Pure hypercholesterolemia Expected: 08/11/2024, Expires: 08/11/2025 [facility] Comment on above: Expected: 08/11/2024, Expires: Start: 08-11-2024 End: 08-11-2025 Thyroid profile includes TSH FT4 Thyroid profile includes TSH FT4 Lab Routine Pure hypercholesterolemia Expected: 08/11/2024, Expires: 08/11/2025 [facility] Comment on above: Expected: 08/11/2024, Expires: Start: 08-11-2024 End: 08-11-2024 Patient encounter procedure 08/11/2024 9:00 AM EDT Office Visit [facility] [address] [place] [phone] Sumanth Hill MD [address] [place] [phone] [facility] Start: 07-30-2024 End: 07-30-2024 Patient encounter procedure 07/30/2024 8:30 AM EDT Office Visit [facility] [address] [phone] Sumanth Hill MD [address] [facility] [place] [id number] [facility] Start: 07-29-2024 Depression Screening Depression Screening [facility] Start: 07-29-2024 Medicare Annual Wellness Visit Medicare Annual Wellness Visit [facility] Start: 07-05-2024 COVID-19 Vaccine ( season) COVID-19 Vaccine () [facility] Start: 07-05-2024 Covid-19 Vaccine () Covid-19 Vaccine () [facility] Start: 07-05-2024 Influenza vaccination [facility] Start: 06-04-2024 End: 06-04-2024 Patient encounter procedure 06/04/2024 9:45 AM EDT Office Visit [facility] [address] [place] [phone] Mayco Nolen MD [address] [place] [phone] [facility] Start: 05-01-2024 End: 05-01-2024 Patient encounter procedure 05/01/2024 7:30 AM EDT Appointment [facility] [address] [facility] [facility] [place] [address] Spondylolisthesis of lumbar region [facility] Comment on above: Spondylolisthesis of lumbar region Start: 04-28-2024 End: 04-28-2024 Patient encounter procedure 04/28/2024 1:00 PM EDT Office Visit [facility] [address] [place] [address] [address] [facility] [address] Minh Heller MD [address] [place] [address] [facility] Start: 04-21-2024 End: 04-21-2024 Patient encounter procedure 04/21/2024 1:45 PM EDT Office Visit [facility] [address] [place] [address] [place] [phone] Minh Heller MD [address] [place] [address] [facility] Start: 03-25-2024 Screening for malignant neoplasm of colon [facility] Start: 02-13-2024 End: 02-13-2024 Patient encounter procedure 02/13/2024 1:50 PM EDT Office Visit [facility] [address] [place] [phone] Mayco Nolen MD [address] [place] [phone] [facility] Start: 02-12-2024 End: 02-11-2025 XR Lumbar spine Views AP W right bending and W left bending [facility] Comment on above: Expected: 02/12/2024, Expires: Start: 12-25-2023 End: 12-25-2023 Admission to same day surgery center 12/25/2023 2:45 PM EST - 12/25/2023 4:45 PM EST Surgery [facility] [address] [place] [phone] Mayco Nolen MD [address] [place] [address] [address] [place] [phone] LAMINECTOMY LUMBAR MULTI LEVEL / L2-L5 [facility] Comment on above: LAMINECTOMY LUMBAR MULTI LEVEL / L2-L5 Start: 12-25-2023 End: 12-25-2023 LAMINECTOMY LUMBAR MULTI LEVEL [facility] Start: 12-25-2023 Subsequent hospital visit by physician 12/25/2023 2:45 PM EST Hospital Encounter [facility] [address] [place] [address] Mayco Nolen MD [address] [facility] [address] [place] [phone] [facility] Start: 12-06-2023 End: 12-06-2023 Patient encounter procedure 12/06/2023 7:00 AM EST Appointment [facility] [address] [place] [address] [facility] Start: 11-14-2023 End: 11-14-2024 XR Lumbar spine Views AP W right bending and W left bending [facility] Work Phone: Comment on above: Expected: 11/14/2023, Expires: Start: 11-04-2023 Advance Directive Discussion Advance Directive Discussion [facility] Start: 07-05-2023 Covid-19 Vaccine ( season) Covid-19 Vaccine ( season) [facility] Start: 07-05-2023 COVID-19 Vaccine ( season) COVID-19 Vaccine ( season) [facility] Start: 2017 Abdominal aortic aneurysm screening Abdominal Aortic Aneurysm (AAA) Screen [facility] Start: 07-24-2013 Administration of varicella zoster vaccine Zoster (Shingles) Vaccine (1 of 2) [facility] Start: 07-24-2013 Shingrix Vaccine (2 of 3) Shingrix Vaccine (2 of 3) [facility] Start: 2012 RSV Vaccine (1 - 1-dose 60+ series) RSV Vaccine (1 - 1-dose 60+ series) [facility] Start: 1997 Screening for malignant neoplasm of colon [facility] Start: 1971 DTaP,Tdap and Td Vaccines (1 - Tdap) DTaP,Tdap and Td Vaccines (1 - Tdap) [facility] Start: 1971 Urine microalbumin profile DTaP,Tdap,Td Vaccine (1 - Tdap) [facility] Start: 1970 Adult BMI Follow Up Plan Adult BMI Follow Up Plan [facility] Start: 1970 Anxiety Screening Anxiety Screening [facility] Start: 1970 Depression Screening Depression Screening [facility] Start: 1970 Hepatitis C screening Hepatitis C Screening [facility] Start: 1952 Abdominal aortic aneurysm screening Abdominal Aortic Aneurysm Screening [facility] End: 02-11-2025 MR Lumbar spine WO contrast MR lumbar spine without contrast Imaging Routine Status post lumbar laminectomy Low back pain, non-specific Leg pain, right Weakness of right lower extremity Sensory deficit, right 1 Occurrences starting 02/12/2024 until 02/11/20[facility] Comment on above: 1 Occurrences starting 02/12/2024 until 02/11/2025 End: 12-25-2025 NM Bone 3 Phase Views NM BONE 3 PHASE Radiology Routine Abnormal findings on diagnostic imaging of other parts of musculoskeletal system 1 Occurrences starting 11/25/2024 until 12/25/2025 [facility] Comment on above: 1 Occurrences starting 11/25/2024 until 12/25/2025 End: 12-25-2025 SPECT Bone NM BONE SPECT Radiology Routine Spondylolisthesis of lumbar region 1 Occurrences starting 11/25/2024 until 12/25/2025 [facility] Work Phone: Comment on above: 1 Occurrences starting 11/25/2024 until 12/25/2025 Immunizations Immunization Date Immunization Notes Care Provider Yogi clark 07-09-2024 influenza, high dose seasonal, preservative-free Sumanth Hill MD Work Phone: [facility] 07-09-2024 Pneumococcal Conjuga te 20-valent Sumanth Hill MD Work Phone: [facility] 08-05-2023 Influenza, High-dose , Quadrivalent Sumanth Hill MD Work Phone: [facility] 08-05-2023 RSV, bivalent, prote in subunit RSVpreF, diluent reconstituted, 0.5 mL, PF Sumanth Hill MD Work Phone: [facility] 08-05-2023 influenza virus vacc ine, unspecified formulation Carl Sosa [employer] SPECIALIST Work Phone: [facility] 08-20-2022 Influenza, High-dose , Quadrivalent Dolores [facility] 08-20-2022 influenza virus vacc ine, unspecified formulation Unk (Hist) [facility] 04-26-2022 influenza, injectabl e, quadrivalent, preservative free Dolores [facility] 09-18-2021 influenza, injectabl e, quadrivalent, preservative free Dolores [facility] 07-20-2020 Influenza, High-dose , Quadrivalent Dolores [facility] 08-11-2019 influenza, high dose seasonal, preservative-free Dolores [facility] 08-11-2019 pneumococcal polysaccharide vaccine, 23 [...] Center 05-29-2013 zoster vaccine, unspecified formulation Dolores [facility] 08-18-2012 influenza virus vacc ine, whole virus Dolores [facility] 08-13-2012 pneumococcal polysaccharide vaccine, 23 valent Dolores [facility] 08-13-2012 zoster vaccine, live Dolores Anderson [facility] 09-03-2011 influenza virus vacc ine, whole virus Dolores Anderson [facility] 09-11-2010 influenza virus vacc ine, whole virus Dolores Anderson [facility] 08-22-2009 influenza virus vacc ine, whole virus Dolores Anderson [facility] Payers Date Payer Category Payer Worker's Compensation [id number] 2023 Self-pay [id number] 2023 Unknown [id number] 2021 Private Health Insurance MMO MED ICARE SUPPLEMENT [id number] 2019 Commercial Indemnity [facility]ICAL [facility] [id number] 2019 Unknown 2017 Medicare [id number] 1959 Medicare [id number] 1959 Unknown [id number] 1959 Unknown [id number] 1952 Unknown [id number] 2.16.840.1.963126.3.579.2 .593 1952 Unknown [id number] 2.16.840.1.915475.3.579.2 .593 1952 Unknown [id number] 2.16.840.1.461505.3.579.2 .593 1952 Unknown [id number] 2.16.840.1.930836.3.579.2 .593 1952 Unknown [id number] 2.16.840.1.196357.3.579.2 .593 1952 Unknown [id number] 2.16.840.1.104557.3.579.2 .593 1952 Unknown [id number] 2.16.840.1.137685.3.579.2 .593 1952 Unknown [id number] 2.16.840.1.289733.3.579.2 .593 1952 Unknown [id number] 2.16.840.1.798600.3.579.2 .593 1952 Unknown [id number] 2.16.840.1.607714.3.579.2 .593 1952 Unknown [id number] 2.16.840.1.753153.3.579.2 .593 1952 Unknown [id number] 2.16.840.1.131241.3.579.2 .1286 1952 Unknown [id number] 2.16.840.1.003932.3.579.2 .1286 1952 Unknown [id number] 2.16.840.1.704836.3.579.2 .1286 1952 Unknown [id number] 2.16.840.1.778269.3.579.2 .1285 1952 Unknown [id number] 2.16.840.1.498555.3.579.2 .1285 1952 Unknown [id number] 2.16.840.1.090110.3.579.2 .1285 1952 Unknown [id number] 2.16.840.1.036520.3.579.2 .1285 1952 Unknown [id number] 2.16.840.1.372260.3.579.2 .1285 1952 Unknown [id number] 2.16.840.1.756539.3.579.2 .1258 1952 Unknown [id number] 2.16.840.1.759542.3.579.2 .1258 1952 Unknown [id number] 2.16.840.1.626706.3.579.2 .1285 1952 Unknown [id number] 2.16.840.1.168794.3.579.2 .1285 1952 Unknown [id number] 2.16.840.1.280119.3.579.2 .1285 1952 Unknown [id number] 2.16.840.1.955369.3.579.2 .1285 1952 Unknown [id number] 2.16.840.1.025498.3.579.2 .1285 1952 Unknown [id number] 2.16.840.1.178416.3.579.2 .1285 1952 Unknown [id number] 2.16.840.1.754051.3.579.2 .1285 1952 Unknown [id number] 2.16.840.1.677750.3.579.2 .1285 1952 Unknown [id number] 2.16.840.1.877000.3.579.2 .128 1952 Unknown [id number] 2.16.840.1.035462.3.579.2 .1285 1952 Unknown [id number] 2.16.840.1.255120.3.579.2 .1285 1952 Unknown [id number] 2.16.840.1.795630.3.579.2 .1285 1952 Unknown [id number] 2.16.840.1.341868.3.579.2 .1285 1952 Unknown [id number] 2.16.840.1.522372.3.579.2 .1285 1952 Unknown [id number] 2.16.840.1.642291.3.579.2 .1285 1952 Unknown [id number] 2.16.840.1.128334.3.579.2 .1285 1952 Unknown [id number] 2.16.840.1.245243.3.579.2 .1285 1952 Unknown [id number] 2.16.840.1.356051.3.579.2 .1285 1952 Unknown [id number] 2.16.840.1.162149.3.579.2 .1285 1952 Unknown [id number] 2.16.840.1.561604.3.579.2 .1285 1952 Unknown [id number] 2.16.840.1.965075.3.579.2 .196 1952 Unknown [id number] 2.16.840.1.556137.3.579.2 .196 Unknown [facility] [id number] Unknown [id number] 2.16.840.1.575909.3.579.2 .531 Social History Date Type Detail Facility Unknown if ever smoked [facility] Work Phone: Start: 11-02-2017 End: 11-25-2024 Sex Assigned At [facility] Start: 1950 Sex Assigned At Male [facility] Start: 11-07-2018 Tobacco smoking stat us OKIS Never smoked tobacco (finding) [facility] Start: 02-08-2017 End: 11-25-2024 Tobacco smoking status NHIS Ex-smoker [facility] End: 11-04-1996 History of tobacco use Current smoker [facility] End: 11-04-1996 History of tobacco use Cigarette Smoker [facility] Start: 02-08-2017 End: 11-25-2024 Tobacco use and exposure Smokeless tobacco non-user [facility] Start: 05-01-2017 End: 11-25-2024 Alcoholic beverage intake Current drinker of alcohol (finding) [facility] Start: 11-02-2017 End: 11-25-2024 History of Social function [facility] Start: 1950 Sex assigned at Not on file P [facility] Adult Depression Screening Assessment 1 [facility] Start: 07-22-2024 Gender identity Identifies as male gender (finding) [facility] Start: 07-22-2024 Sexual orientation Heterosexual (fin ding) [facility] Start: 01-17-2023 Alcohol Comment socially [facility] Start: 06-09-2015 Sex Male (finding) [facility] Procedure Code Equipment Code Equipment Origin al Text Equipment Identifier Dates Patch Dura 1x1in Drmtrx-[place] + Clgn Rgnrt Membr Strl [facility] [id number] - [id number] Start: 12-25-2023 Goals Date Patient Goal [...] - Jace Silva RN 12/26/23 11:57 AM Functional Status Date Assessment Result Facility 03-12-2017 Are you deaf, or do you have serious difficulty hearing No 03/12/2017 5:46 PM Dolores Viera, MIREILLE No [facility] 03-12-2017 Are you blind, or do you have serious difficulty seeing, even when wearing glasses No 03/12/2017 5:46 PM Dolores Viera, MIREILLE No [facility] 03-12-2017 Do you have serious difficulty walking or climbing stairs No 03/12/2017 5:46 PM Dolores Viera RN No [facility] 03-12-2017 Do you have difficul ty dressing or bathing No 03/12/2017 5:46 PM Dolores Viera RN No [facility] 03-12-2017 Because of a physica l, mental, or emotional condition, do you have difficulty doing errands alone such as visiting a physician's office or shopping No 03/12/2017 5:46 PM Dolores Viera RN No [facility] Mental Status Date Assessment Result Facility 03-12-2017 Because of a physica l, mental, or emotional condition, do you have serious difficulty concentrating, remembering, or making decisions No 03/12/2017 5:46 PM Dolores Viera RN No [facility] Clinical Notes 06-14-2022 to 01-09-2025 Johnathan Kraus MD - 01/09/2025 9:48 AM Claudia Gonzalez, [employer] - 12/09/2024 10:30 AM Johnathan Sheldon MD - 11/25/2024 3:10 PM ESTPatient InstructionsPatient Instructions Note Date & Type Note Facility 01-09-2025 Note HNO ID: [id number] Author: JOHNATHAN KRAUS MD Service: ? Author Type: Physician Type: Progress Notes Filed: 01/09/2025 09:51 Note Text: SPINE SURGERY ESTABLISHED VISIT This is a virtual visit using [employer] Video Visit. It required patient-provider interaction for the medical decision making as documented below. I have communicated my name and active licensure. The patient's identity and physical location were verified at the time of this visit. Either the patient or their legal food service representative has been informed of the risks and benefits of -- and alternatives to -- treatment through a remote evaluation and consents to proceed with the evaluation remotely. DATE OF SERVICE: 01/09/2025 DATE OF LAST VISIT: 11/25/2024 SUBJECTIVE: HPI:Regan Green is a 74 year old male presenting with spouse about the same since our nov appt here to review ct spect. MEDICATIONS: calcium carbonate (OS-JARRETT 500) 500 mg calcium (1,250 mg) tablet 1 (one) time each day at the same time diclofenac, EC, (VOLTAREN) 75 mg EC tablet two times a day. cyclobenzaprine (FLEXERIL) 10 mg tablet gabapentin (NEURONTIN) 300 mg capsule three times a day. ELDERBERRY FRUIT ORAL Take by mouth. aspirin, enteric coated (ASPIRIN, ENTERIC COATED) 81 mg EC tablet Take 81 mg by mouth once daily. OXYCODONE HCL/ACETAMINOPHEN (PERCOCET ORAL) Take 1 tablet by mouth once daily. sildenafil (REVATIO) 20 mg tablet Take 2-5 tablets by mouth one hour prior to sexual activity. oxybutynin (DITROPAN) 5 mg tablet Take 1 tablet by mouth every 8 hours as needed (for bladder spasms). ketorolac (TORADOL) 10 mg tablet Take 1 tablet by mouth every 6 hours as needed for Pain. docusate sodium (COLACE) 100 mg capsule Take 1 capsule by mouth twice daily. To prevent constipation. If you develop diarrhea, please stop this medication. ciprofloxacin HCl (CIPRO) 500 mg tablet Take 1 tablet by mouth once daily. Until catheter removed Patient Entered Questionnaires 11/18/2024 01/03/2025 Spine Questions Pain Location: Lower back Lower back Pain Duration: 1 to 5 years Pain over last 6 months: Every day or nearly every day in the past 6 months Symptoms from neck/cervical spine: No Yes Employment Status: Retired Involved in law suit/legal claim: No 01/03/2025 Neck Questionnaires Benzel Modified VJ Score 14 (Moderate Myelopathy Symptoms) PROMIS Score Percentiles 11/18/2024 01/03/2025 Physical Health Physical Function Percentile 5 8 Sleep Percentile 18* 16* Fatigue Percentile 50 27* Pain Interference Percentile 4 5 11/18/2024 01/03/2025 PROMIS SOCIAL ROLE SCORE Social Role Satisfaction Percentile 31 16* 02/08/2017 11/18/2024 PROMIS Global Health Scale Physical Health Percentile 31 Mental Health Percentile 63 53 Patient-reported Percentiles provide an indication of how the patient's score ranks in relation to the general population. Higher percentile rankings indicate better function/quality of life. 50th percentile is the average of the general population and indicates half of respondents had a worse score. Descriptive Summary for PROMIS Physical Function T-score = 36 (Percentile 8) Much difficulty - Carry a laundry basket up a flight of stairs. Some difficulty - Walk at a normal speed. Unable - Walk more than a mile (1.6 km). Depression Screenin11/18/2024 01/03/2025 PHQ-9 Score 5 3 11/18/2024 01/03/2025 PHQ-9 Self-harm Question Question 9 Not at all Not at all PHQ-9 Self-Harm (Item 9) response options: 0 Not at all 1 Several days 2 More than half the days 3 Nearly every day PHQ-9 Levels: 0-4 No to mild depression 5-9 Mild depression 10-14 Moderate depression 15-19 Moderately severe depression 20-27 Severe depression OBJECTIVE: PHYSICAL EXAM: Unchanged from prior CT SPECT scan of the lumbar spine reviewed there is significant uptake at the L4-5 disc level and vacuum disc, at the level above which is also degenerative there is no uptake in the disc and there is some uptake in the bilateral L3-4 facet joints ASSESSMENT/PLAN (M43.16) Spondylolisthesis of lumbar region (primary encounter diagnosis) (R93.7) Abnormal findings on diagnostic imaging of other parts of musculoskeletal system We had a long discussion of findings, I think the leg pain is clearly caused by the spondylolisthesis and nerve compression at L4-5 and likely majority of the back pain is coming from the L4-5 level we had a discussion around the findings at the L3-4 level as well and its indications and back pain. We discussed from a surgical standpoint either decompressing and fusing L4-5 alone plus or minus the addition of the L3-4 level. We talked about the pros and cons of both. It be my suggestion that we decompress and fuse L4-5 alone knowing that there is some uptake in the facet joints at L3-4. If back pain persists and not significant after surgery we can always come back later and approach the L3-4 (more content not included)... [facility] 01-09-2025 History of Present illness Narrative Images from the original note were not included. SPINE SURGERY ESTABLISHED VISIT This is a virtual visit using [employer] Video Visit. It required patient-provider interaction for the medical decision making as documented below. I have communicated my name and active licensure. The patient's identity and physical location were verified at the time of this visit. Either the patient or their legal food service representative has been informed of the risks and benefits of -- and alternatives to -- treatment through a remote evaluation and consents to proceed with the evaluation remotely. DATE OF SERVICE: 01/09/2025 DATE OF LAST VISIT: 11/25/2024 SUBJECTIVE: HPI:Regan Green is a 74 year old male presenting with spouse about the same since our nov appt here to review ct spect. MEDICATIONS: calcium carbonate (OS-JARRETT 500) 500 mg calcium (1,250 mg) tablet 1 (one) time each day at the same time diclofenac, EC, (VOLTAREN) 75 mg EC tablet two times a day. cyclobenzaprine (FLEXERIL) 10 mg tablet gabapentin (NEURONTIN) 300 mg capsule three times a day. ELDERBERRY FRUIT ORAL Take by mouth. aspirin, enteric coated (ASPIRIN, ENTERIC COATED) 81 mg EC tablet Take 81 mg by mouth once daily. OXYCODONE HCL/ACETAMINOPHEN (PERCOCET ORAL) Take 1 tablet by mouth once daily. sildenafil (REVATIO) 20 mg tablet Take 2-5 tablets by mouth one hour prior to sexual activity. oxybutynin (DITROPAN) 5 mg tablet Take 1 tablet by mouth every 8 hours as needed (for bladder spasms). ketorolac (TORADOL) 10 mg tablet Take 1 tablet by mouth every 6 hours as needed for Pain. docusate sodium (COLACE) 100 mg capsule Take 1 capsule by mouth twice daily. To prevent constipation. If you develop diarrhea, please stop this medication. ciprofloxacin HCl (CIPRO) 500 mg tablet Take 1 tablet by mouth once daily. Until catheter removed Patient Entered Questionnaires 11/18/2024 01/03/2025 Spine Questions Pain Location: Lower back Lower back Pain Duration: 1 to 5 years Pain over last 6 months: Every day or nearly every day in the past 6 months Symptoms from neck/cervical spine: No Yes Employment Status: Retired Involved in law suit/legal claim: No 01/03/2025 Neck Questionnaires Benzel Modified VJ Score 14 (Moderate Myelopathy Symptoms) PROMIS Score Percentiles 11/18/2024 01/03/2025 Physical Health Physical Function Percentile 5 8 Sleep Percentile 18* 16* Fatigue Percentile 50 27* Pain Interference Percentile 4 5 11/18/2024 01/03/2025 PROMIS SOCIAL ROLE SCORE Social Role Satisfaction Percentile 31 16* 02/08/2017 11/18/2024 PROMIS Global Health Scale Physical Health Percentile 31 Mental Health Percentile 63 53 Patient-reported Percentiles provide an indication of how the patient's score ranks in relation to the general population. Higher percentile rankings indicate better function/quality of life. 50th percentile is the average of the general population and indicates half of respondents had a worse score. Descriptive Summary for PROMIS Physical Function T-score = 36 (Percentile 8) Much difficulty - Carry a laundry basket up a flight of stairs. Some difficulty - Walk at a normal speed. Unable - Walk more than a mile (1.6 km). Depression Screenin11/18/2024 01/03/2025 PHQ-9 Score 5 3 11/18/2024 01/03/2025 PHQ-9 Self-harm Question Question 9 Not at all Not at all PHQ-9 Self-Harm (Item 9) response options: 0 Not at all 1 Several days 2 More than half the days 3 Nearly every day PHQ-9 Levels: 0-4 No to mild depression 5-9 Mild depression 10-14 Moderate depression 15-19 Moderately severe depression 20-27 Severe depression OBJECTIVE: PHYSICAL EXAM: Unchanged from prior CT SPECT scan of the lumbar spine reviewed there is significant uptake at the L4-5 disc level and vacuum disc, at the level above which is also degenerative there is no uptake in the disc and there is some uptake in the bilateral L3-4 facet joints ASSESSMENT/PLAN (M43.16) Spondylolisthesis of lumbar region (primary encounter diagnosis) (R93.7) Abnormal findings on diagnostic imaging of other parts of musculoskeletal system We had a long discussion of findings, I think the leg pain is clearly caused by the spondylolisthesis and nerve compression at L4-5 and likely majority of the back pain is coming from the L4-5 level we had a discussion around the findings at the L3-4 level as well and its indications and back pain. We discussed from a surgical standpoint either decompressing and fusing L4-5 alone plus or minus the addition of the L3-4 level. We talked about the pros and cons of both. It be my suggestion that we decompress and fuse L4-5 alone knowing that there is some uptake in the facet joints at L3-4. If back pain persists and not significant after surgery we can always come back later and approach the L3-4 level from a lateral approach. I think we both agreed to that and are comfortable with it. I went over the risks and the percentages of those risks with this operation and answered all questions. They are going to think about things and call us in the future if they want a move forward with surgery Regan Green is clinically indicated and wishes to consider Lumbar Decompression with Fusion at L4/5. Clinical Indications for Spinal Fusion: Spondylolisthesis: Grade 1 with 4-10mm of slip Decompression requiring >75% removal unilateral facet The risks, benefits, and anticipated outcomes of the procedure/treatment/test, the alternatives to the procedure/treatment/test and their risks and benefits, and the roles and tasks of the personnel to be involved were discussed with the patient or the patient s personal food service representative. The patient intends to call the office with a decison. Shared decision making occurred while obtaining informed consent. 1. No Orders Entered Today 2. Follow up: Following above Imaging Ordered: None time 30 min SIGNATURE: Johnathan Kraus MD PATIENT NAME: Regan Green DATE: January 09, 2025 TIME: 9:48 AM PAGER: documented in this encounter [facility] 12-09-2024 History of Present illness Narrative RADIOLOGY [...] PATIENT PRESENTS WITH AN IMPLANTABLE OR ATTACHED GAUGE OPERATOR: No CREATININE: Creatinine Date Value Ref Range [...] 1025 PATIENT DISCHARGED TO: Ambulatory patient, left [place] department area. Is this a therapy: No A Diagnostic radioactive procedure has taken place, with no further precautions necessary other than routine body substance precautions. More information regarding radiation safety can be found using this link: [email or web address] %[email or web address] SIGNATURE: Sorin Shnae PATIENT NAME: Regan Green DATE: December 09, 2024 TIME: 10:48 AM PAGER/CONTACT #: documented in this encounter [facility] 12-09-2024 Note HNO ID: [id number] Author: CLAUDIA CHOWDHURY [employer] Service: Nuclear Medicine Author Type: Meat Service Team Member Type: Progress Notes Filed: 12/09/2024 10:50 Note [...] PATIENT PRESENTS WITH AN IMPLANTABLE OR ATTACHED GAUGE OPERATOR: No CREATININE: Creatinine Date Value Ref Range [...] 1025 PATIENT DISCHARGED TO: Ambulatory patient, left [place] department area. Is this a therapy: No A Diagnostic radioactive procedure has taken place, with no further precautions necessary other than routine body substance precautions. More information regarding radiation safety can be found using this link: [email or web address] 20Diagnostic%20Nuclear%20Medicine% 20Procedures.[email or web address] SIGNATURE: Claudia Chowdhury, [employer] PATIENT NAME: Regan Green DATE: December 09, 2024 TIME: 10:48 AM PAGER/CONTACT #: [facility] 11-25-2024 History of Present illness Narrative Images from the original note were not included. SPINE SURGERY NEW PATIENT PCP: Sumanth Huang MD REFERRING PROVIDER: Lisa Palm [address] [facility] [address] 30 minutes Assessment/Plan No diagnosis found. Regan [...] disc space narrowing. documented in this encounter [facility] 11-25-2024 Note HNO ID: [id number] Author: JOHNATHAN KRAUS MD Service: ? Author Type: Physician Type: Progress Notes Filed: 12/01/2024 07:07 Note Text: SPINE SURGERY NEW PATIENT PCP: Sumanth Huang MD REFERRING PROVIDER: Lisa Palm [address] [facility] [address] 30 minutes Assessment/Plan No diagnosis found. Regan [...] Not tested. SPURLING' (more content not included)... [facility] 08-11-2024 History of Present illness Narrative Images from the original note were not included. [id number] [facility] [id number] Subjective: Regan Green is a 74 y.o. male who presents for a Medicare Annual Wellness exam. The following portions of the patient's history were reviewed and updated as appropriate: Health Risk Assessment, allergies, past medical history, past surgical history, social history, family history, and immunization history Accompanied by: self History Provided By: self Language and Other Communication Barriers: Primary Language Spoken: Urdu Highest Level of Education Completed: high school [...] Do you have a durable power of claim attorney?: Yes Fall Risk Fall Risk Assessment [...] with pain 02/08/2020 Malignant neoplasm of prostate ([facility]) 02/07/2017 Adenocarcinoma of prostate ([facility]) 11/20/2016 Past Medical History: Diagnosis Date Cancer of prostate ([facility]) 2017 prostatectomy Diverticulitis Diverticulosis Fecal impaction ([facility]) Inflammation of sacroiliac joint ([facility]) Knee pain Low back pain Lumbar disc disorder Neurogenic claudication 12/17/2023 Osteoarthritis SBO (small bowel obstruction) (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 02/08/2020 Visual impairment 12/20/2023 Past Surgical History: Procedure Laterality Date ABDOMINAL ADHESION SURGERY COLONOSCOPY COLONOSCOPY N/A 03/25/2023 Performed by Johnathan Campbell DO at [facility] EXPRESS HERNIA REPAIR Left inguinal HIP SURGERY Left JOINT REPLACEMENT LAMINECTOMY LUMBAR MULTI LEVEL / L2-L5 N/A 12/25/2023 Performed by Mayco Nolen MD at [facility] PROSTATE BIOPSY PROSTATECTOMY REVISION TOTAL KNEE [...] method used for this test is Deejay Proximal Data DXI chemiluminescent immunoassay. Values obtained by different [...] includes TSH FT4; Future Adenocarcinoma of prostate ([facility]) Follow Up: Consider inversion table fasting labs [facility] Instructions Sumanth Hill MD - 08/11/2024 [...] services: Not applicable [facility] Miscellaneous Notes Received a request for a retro C9 for PT for patient. Patient's care and surgery with us has never been under a workers comp claim. Call to Chuckie [phone] advising his of this and call back number provided if he has any additional questions. Fax we received will be scanned into chart. documented in this encounter [employer] 07-27-2024 Telephone encounter Note Received a request for a retro C9 for PT for patient. Patient's care and surgery with us has never been under a workers comp claim. Call to Chuckie [phone] advising his of this and call back number provided if he has any additional questions. Fax we received will be scanned into chart. [employer] Work Phone: 07-03-2024 Note HNO ID: [id number] Author: LUANNE ELLIOTT APRN.HUMAN RESOURCES SPECIALIST Service: ? Author Type: Nurse Practitioner Type: Progress Notes Filed: 07/03/2024 16:12 Note Text: Per Triage: Regan Green is a 74 year old male that requests evaluation of lumbar spine. Per review, they have symptoms of right leg pain from right knee to ankle numbness and weakness Patient lives in [facility] [address] Gregorio Palm 's [...] of imaging with him and injection history [facility] 07-03-2024 History of Present illness Narrative Per Triage: Regan Green is a 74 year old male that requests evaluation of lumbar spine. Per review, they have symptoms of right leg pain from right knee to ankle numbness and weakness Patient lives in [place] [address] Gregorio Palm 's office [...] Health Provider or Pain Management Provider at [facility]? No If answer is YES please [...] the facility where the MRI/CT/myelogram was completed: [place] [id number] MRI/CT/myelogram viewable in Epic: No If not, please provide [phone] to fax in imaging reports for review. Also, please inform patient to hand carry imaging disc to appointment. XR (spine) within 12 months: Yes If YES, please ask for the name/address of the facility where the XR was completed: [address] [address] [address] Robertson's patients: Have you had previous [...] injections and/or physical therapy was completed PT: [facility] [address] [place] [address] Injections: [facility] [address] [place] [address] Have you tried any other kinds of [...] the surgery was completed: 12/25/2023, Laminectomy L2-L5 [facility] [address] [place] [address] Additional Comments [phone] documented in this encounter [facility] 07-01-2024 Note HNO ID: [id number] Author: ?, ?, ? Service: ? Author Type: ? Type: Progress Notes Filed: 07/03/2024 16:12 Note Text: Patient name: Regan Green Are you being referred by a [facility] Spine Health Provider or Pain Management Provider at [facility]? No If answer is YES please [...] the facility where the MRI/CT/myelogram was completed: [facility] [address] [place] [address] MRI/CT/myelogram viewable in Epic: No If not, please provide [phone] to fax in imaging reports for review. Also, please inform patient to hand carry imaging disc to appointment. XR (spine) within 12 months: Yes If YES,? please ask for the name/address of the facility where the XR was completed: [facility] [address] [place] [address] Dr. Robertson's patients: Have you had previous [...] injections and/or physical therapy was completed PT: [facility] [address] [place] [address] Injections: [facility] [address] [place] [address] Have you tried any other kinds of [...] the surgery was completed: 12/25/2023, Laminectomy L2-L5 [facility] [address] [place] [address] Additional Comments [phone] [facility] 06-04-2024 History of Present illness Narrative Images from the original note were not included. [facility] [address] [facility] [address], [address] [place] [address] * CHART NOTE ? 06/04/2024 Patient: Regan Green 1950 [id number] Nurse Practitioner: Carl Sosa, LATOYA Physician: Mayco Nolen MD, FAANS IMPRESSION / PLAN 74 y.o. male with right lower extremity radiculopathy. Imaging demonstrated a L4-5 spondylolisthesis. Given the failure of conservative therapies to improve the patients condition he is a surgical candidate for a L4-5 realignment and fusion. He would like time to consider surgery and will call when he Is ready to schedule. HISTORY OF PRESENT ILLNESS 74 y.o. male s/p L2-L5 laminectomy on 12/25/23 presents to the clinic as a follow up for RLE radiculopathy with findings of L4-5 spondylolisthesis. He was referred to pain management for CHANTELLE, aquatic therapy, and prescribed anti-inflammatory medications. Kenneth reports he is not having low back pain, but continues to have pain, paresthesias and stabbing pain into the right anterior thigh. He states he also feels like he is walking on wet sponges on the right foot. Patient's imaging was discussed and reviewed to their understanding in office today. Given the failure of conservative therapies to improve patient's current symptoms, the goals and indications for neurosurgical intervention were discussed to the patient's understanding. Denies loss of environmental services supervisor strength, saddle anesthesia, urinary or bowel dysfunction, weakness, and loss of balance. Patient does not use an assistive device for ambulation. Patient is not diabetic and former smoker. PAST MEDICAL HISTORY Past Medical History: Diagnosis Date Cancer of prostate ([facility]) 2017 prostatectomy Diverticulitis Diverticulosis Fecal impaction ([facility]) Inflammation of sacroiliac joint ([facility]) Knee pain Low back pain Lumbar disc disorder Neurogenic claudication 12/17/2023 Osteoarthritis SBO (small bowel obstruction) (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 02/08/2020 Visual impairment 12/20/2023 PAST SURGICAL HISTORY Past Surgical History: Procedure Laterality Date ABDOMINAL ADHESION SURGERY COLONOSCOPY COLONOSCOPY N/A 03/25/2023 Performed by Johnathan Campbell DO at [facility] EXPRESS HERNIA REPAIR Left inguinal HIP SURGERY Left LAMINECTOMY LUMBAR MULTI LEVEL / L2-L5 N/A 12/25/2023 Performed by Mayco Nolen MD at [facility] PROSTATE BIOPSY PROSTATECTOMY REVISION TOTAL KNEE ARTHROPLASTY Right 2012 due to swelling TOTAL KNEE ARTHROPLASTY Right 2012 SOCIAL HISTORY Social History Socioeconomic History Marital status: Spouse name: Not on file Number of children: Not on file Years of education: Not on file Highest education level: Not on file Occupational History Not on file Tobacco Use Smoking status: Former Types: Cigarettes Smokeless tobacco: Never Vaping Use Vaping status: Never Used Substance and Sexual Activity Alcohol use: Yes Comment: socially Drug use: Not Currently Types: Medical Marijuana Sexual activity: Defer Other Topics Concern Not on file Social History Narrative Not on file Social Determinants of Health Financial Resource Strain: Not on file Food Insecurity: No Food Insecurity (04/28/2024) Hunger Screening Food Insecurity - Worry: Never True Food Insecurity - Inability: Never True Transportation Needs: Not on file Physical Activity: Not on file Stress: Not on file Social Connections: Not on file Interpersonal Safety: Not on file Housing Instability: Low Risk (10/06/2023) Housing Instability Housing Instability: No REVIEW OF SYSTEMS ROS Positive Findings: Negative otherwise noted in the HPI PHYSICAL EXAMINATION Alert Oriented No percussion tenderness along spine ROM of the low back is slightly decreased No weakness No pathological reflexes No atrophy No fasciculations Sensation to light touch is decreased in the right lateral thigh Gait is within normal limits MARY is negative SLR is negative MRI / IMAGES XR Lumbar 04/23/2024 Impression: Grade 1 anterolisthesis of L4 on L5 and grade 1 retrolisthesis of L2 on L3 without significant change on flexion/extension. I reviewed the imaging studies independently and critical findings were anotated for the patient. Electronically Signed By: Carl Sosa CNP in conjunction with Mayco Nolen MD This note was created with the assistance of a speech recognition program with the goal of generating a timely record of the patient encounter. Inadvertent computerized small engine specialist errors related to syntax, spelling, homophones, and/or inaudibility may be present. Scribe Statement: Scribed for and in the presence of Mayco Nolen MD by Cheo Rodriguez. Provider Statement: I, Mayco Nolen MD personally performed the services described in the documentation, as scribed by Joshua Higginbotham in my presence, and it is both accurate and complete Cheo Rodriguez 06/04/24 [id number] JOSEMANUEL Kirk 06/04/24 1157 documented in this encounter [facility] 06-04-2024 Instructions AINSLEY Szymanski - 06/04/2024 9:45 AM EDT Patient was seen today by Dr. Nolen. Patient will call in regards to Lumbar Fusion. JA documented in this encounter [facility] 04-28-2024 History of Present illness Narrative Images from the original note were not included. [address] [place] [address] [facility] [id number] Patient: Regan Green Date of : 1950 Encounter Date: 04/28/2024 History of Present Illness: Chief Complaint: Follow up The patient is a 74 y.o. male, an established patient, and is here for He was diagnosed with adenocarcinoma prostate Lucas 7 with 2 of 12 cores positive in 2017. He underwent open radical prostatectomy with bilateral pelvic lymph node dissection at [facility] in 2017. Final path T2N0. PSA was undetectable. He had his PSA drawn today which is still pending. He uses 1 liner per day. Urinary incontinence worse if he consumes beer. Otherwise this remains stable. No hematuria. No erections. . Summary of old records: Urinalysis today: No results for input(s): EXTPOCURCO , EXTPOCURCH , EXTPOCAPP , EXTPOCURBS , EXTPOCURBIL , EXTPOCUKET , EXTPOCUSPG , EXTPOCUHGB , EXTPOCUPRO , EXTPOCUURO , EXTPOCULEU , EXTPOCUNIT , EXTPOCUWBC , EXTPOCUBLD , EXTPOCURBC , EXTPOCUCRY , EXTPOCUBAC , EXTPOCUTREP , EXTPOCUPH , EXTPOCULEE in the last 72 hours. Last BUN and creatinine: Lab Results Component Value Date BUN 14 12/27/2023 Lab Results Component Value Date CREATININE 0.77 12/27/2023 Last PSA: Lab Results Component Value Date PSA <0.01 04/16/2023 PSA 8.38 09/06/2016 No results found for: PROSTATICSP Additional Lab/Culture results: Imaging Reviewed during this Office Visit: None (Results were independently reviewed by physician and radiology report verified) Past Medical, Family, and Social History Update: The following portions of the patient's history were reviewed and updated as appropriate: allergies, current medications, past family history, past medical history, past social history, past surgical history and problem list. Past Medical History: Diagnosis Date Cancer of prostate ([facility]) 2017 prostatectomy Diverticulitis Diverticulosis Fecal impaction ([facility]) Inflammation of sacroiliac joint ([facility]) Knee pain Low back pain Lumbar disc disorder Neurogenic claudication 12/17/2023 Osteoarthritis SBO (small bowel obstruction) (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 02/08/2020 Visual impairment 12/20/2023 Past Surgical History: Procedure Laterality Date ABDOMINAL ADHESION SURGERY COLONOSCOPY COLONOSCOPY N/A 03/25/2023 Performed by Johnathan Campbell DO at [facility] EXPRESS HERNIA REPAIR Left inguinal HIP SURGERY Left LAMINECTOMY LUMBAR MULTI LEVEL / L2-L5 N/A 12/25/2023 Performed by Mayco Nolen MD at [facility] PROSTATE BIOPSY PROSTATECTOMY REVISION TOTAL KNEE ARTHROPLASTY Right 2012 due to swelling TOTAL KNEE ARTHROPLASTY Right 2012 Family History Adopted: Yes Problem Relation Age of Onset Anesthesia problems Neg Hx Current Outpatient Medications Medication Sig Dispense Refill B-complex with vitamin C tablet Take 2 tablets by mouth in the morning. baclofen (LIORESAL) 10 mg tablet TAKE 1/2 - 1 TABLET BY MOUTH 3 TIMES A DAY calcium carbonate-vitamin D3 (OSCAL 500 + D) [...] TABLET BY MOUTH TWICE A DAY NEEDED gabapentin (NEURONTIN) 600 mg tablet Take 0.5 tablets (300 mg total) by mouth in the morning. methylPREDNISolone (MEDROL, DEMOND,) 4 mg tablet follow package directions 21 tablet 0 mv-min/folic/K1/lycopen/lutein (CENTRUM SILVER MEN ORAL) Take 1 tablet by mouth once daily. oxyCODONE-acetaminophen (PERCOCET) 5-325 mg per tablet Take 1 tablet by mouth in the evening. 1 to 2 tablets daily. amoxicillin (AMOXIL) 500 mg capsule No current facility-administered medications for this visit. (All medications reviewed and updated by provider since last office visit or hospitalization) Allergies: Patient has no known allergies. Tobacco History: Social History Tobacco Use Smoking Status Former Types: Cigarettes Smokeless Tobacco Never (If patient a smoker, smoking cessation counseling offered) Social History: Social History Substance and Sexual Activity Alcohol Use Yes Comment: socially Review of Systems: General: Negative for chills and fever. Cardiovascular: Negative for chest pain and shortness of breath. Gastrointestinal: Negative for constipation, diarrhea, nausea, and vomitting. -per HPI Physical Exam: BP 130/85 Pulse 77 Ht 182.9 cm (6') Wt 102.1 kg (225 lb) BMI 30.52 kg/m Assessment and Plan: Kenneth was seen today for follow-up. Diagnoses and all orders for this visit: Adenocarcinoma of prostate ([facility]) Problem List Genitourinary Adenocarcinoma of prostate ([facility]) - Primary Overview T1c adenocarcinoma prostate Gary 3 + 3 = 6 5% and 3+4=7 in 20% PSA 8.38 dx 11/20 Prolaris score 4.3 (more aggressive); 10 year cancer specific mortality of 4.9% We again discussed in detail the available options for localized prostate cancer including active surveillance, prostatectomy, radiation therapy including external beam radiotherapy and brachytherapy, cryosurgical destruction of the prostate and watchful waiting. Given the Prolaris score and the Gary 7 I again told him that active surveillance would not be recommended. He is still not sure which treatment option he would like. I gave him a referral to the radiation oncologist to discuss that treatment further. Plan to have him return after to discuss. He additionally is using homeopathic medicine with THC which I again told him there is not great data to suggest this would help him 03/20 open radical prostatectomy with bilateral pelvic lymph node dissection [facility]. Final pathology T2 N0 04/16/23: psa today. Recheck annually. 04/28/24: PSA pending today. Assuming his PSA today remains undetectable he should continue to get his PSA checked annually. He is more than 5 years out from surgery. He was planning to have his PSA drawn annually with his wellness exam. If it becomes detectable or urinary symptoms worsen he will return Follow-up: Minh Heller MD This note was created with the assistance of a speech recognition program. While intending to generate a timely document that accurately reflects the content of the visit, no guarantee can be provided that every grammatical or spelling mistake has been or will be identified or corrected. Thank you for your understanding. documented in this encounter [facility] 04-27-2024 Miscellaneous Notes This nurse called the Pt. To remind him to get his PSA drawn for his appointment with MD Brian tomorrow. Pt. Did not answer, message was left on his answering machine. documented in this encounter [facility] 04-27-2024 Telephone encounter Note This nurse called the Pt. To remind him to get his PSA drawn for his appointment with MD Brian tomorrow. Pt. Did not answer, message was left on his answering machine. [facility] 04-23-2024 History of Present illness Narrative Images from the original note were not included. [facility] [address] [place] [address], [address] [place] [address] * CHART NOTE ? 04/23/2024 Patient: Regan Green 1950 [id number] Nurse Practitioner: Carl Sosa, HUMAN RESOURCES SPECIALIST Physician: Mayco Nolen MD, FAANS IMPRESSION / PLAN 74 y.o. male with radicular symptoms down the RLE. Findings of L4-5 spondylolisthesis. Exam showed no evidence of weakness. As he has yet to exhaust conservative therapies we will refer him to pain management for CHANTELLE. We will refer him to aquatic therapy and prescribe him with anti-inflammatory medication. Recommend f/e XR and follow up to review. HISTORY OF PRESENT ILLNESS 74 y.o. male presents to the clinic as a follow up for RLE pain in weakness s/p lumbar laminectomy on 12-25-2023. Patient advises that since his last visit his symptoms remain stable. He is still experiencing the radicular pain down the right lower extremity. The radicular pain into the right leg has increased significantly. Patient's imaging was discussed and reviewed to their understanding in office today. Patient has not yet exhausted all conservative measures of treatment and is agreeable to them. Denies loss of environmental services supervisor strength, saddle anesthesia, urinary or bowel dysfunction, weakness, numbness or tingling, and loss of balance. Patient does not use an assistive device for ambulation. Patient is not diabetic and former smoker. PAST MEDICAL HISTORY Past Medical History: Diagnosis Date Cancer of prostate ([facility]) 2017 prostatectomy Diverticulitis Diverticulosis Fecal impaction ([facility]) Inflammation of sacroiliac joint ([facility]) Knee pain Low back pain Lumbar disc disorder Neurogenic claudication 12/17/2023 Osteoarthritis SBO (small bowel obstruction) (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 02/08/2020 Visual impairment 12/20/2023 PAST SURGICAL HISTORY Past Surgical History: Procedure Laterality Date ABDOMINAL ADHESION SURGERY COLONOSCOPY COLONOSCOPY N/A 03/25/2023 Performed by Johnathan Campbell DO at [facility] EXPRESS HERNIA REPAIR Left inguinal HIP SURGERY Left LAMINECTOMY LUMBAR MULTI LEVEL / L2-L5 N/A 12/25/2023 Performed by Mayco Nolen MD at [facility] PROSTATE BIOPSY PROSTATECTOMY REVISION TOTAL KNEE ARTHROPLASTY Right 2012 due to swelling TOTAL KNEE ARTHROPLASTY Right 2012 SOCIAL HISTORY Social History Socioeconomic History Marital status: Spouse name: Not on file Number of children: Not on file Years of education: Not on file Highest education level: Not on file Occupational History Not on file Tobacco Use Smoking status: Former Types: Cigarettes Smokeless tobacco: Never Vaping Use Vaping status: Never Used Substance and Sexual Activity Alcohol use: Yes Comment: socially Drug use: Not Currently Types: Medical Marijuana Sexual activity: Defer Other Topics Concern Not on file Social History Narrative Not on file Social Determinants of Health Financial Resource Strain: Not on file Food Insecurity: No Food Insecurity (02/12/2024) Hunger Screening Food Insecurity - Worry: Never True Food Insecurity - Inability: Never True Transportation Needs: Not on file Physical Activity: Not on file Stress: Not on file Social Connections: Not on file Interpersonal Safety: Not on file Housing Instability: Low Risk (10/06/2023) Housing Instability Housing Instability: No REVIEW OF SYSTEMS ROS Positive Findings: Negative otherwise noted in the HPI PHYSICAL EXAMINATION Alert Oriented No percussion tenderness along spine Absent Lhermitte's Absent Spurling ROM of the neck is normal No weakness No pathological reflexes No atrophy No fasciculations Sensation to light touch is normal in potter dermatomes Gait is within normal limits MARY is negative SLR is negative MRI / IMAGES MR lumbar 04-21-2024 IMPRESSION: Laminectomy changes from L2 to L5. Postoperative fluid collections seen within the laminectomy bed extending from approximately the L2-L3 level to approximately L4-L5. Etiology is indeterminate most likely representing postoperative seroma. CSF leak and abscess or less likely. However, Correlate with symptoms. Increased anterolisthesis of L4 and L5 measuring approximately 8 mm, previously 5 mm. I reviewed the imaging studies independently and critical findings were anotated for the patient. MRI demonstrated postoperative changes with a small seroma. At L4-5 there is worsening listhesis which is concerning for instability. Electronically Signed By: Mayco Nolen MD This note was created with the assistance of a speech recognition program with the goal of generating a timely record of the patient encounter. Inadvertent computerized small engine specialist errors related to syntax, spelling, homophones, and/or inaudibility may be present. Scribe Statement: Scribed for and in the presence of Mayco Nolen MD by Joshua Higginbotham. Provider Statement: I, Mayco Nolen MD personally performed the services described in the documentation, as scribed by Joshua Neftaly in my presence, and it is both accurate and complete documented in this encounter [facility] [email or web address] 04-23-2024 Instructions Desirae Dawn - 04/23/2024 9:30 AM EDT Patient seen today by Dr. Nolen Referral to Physical and aquatic therapy Referral to Pain management L4-5 Medrol dose pack Flexeril 10 mg Xray lumbar spine FLEX / EXT Patient to call to schedule follow up in 4 weeks KM [facility] 02-12-2024 History of Present illness Narrative Images from the original note were not included. [facility] [address] [place] [address], [address] [place] [address] * CHART NOTE ? 02/12/2024 Patient: Regan Green 1950 [id number] Physician: Carl Sosa, HUMAN RESOURCES SPECIALIST CHIEF COMPLAINT Post op. HISTORY OF PRESENT [...] weakness in the RLE. Denies loss of environmental services supervisor strength, saddle anesthesia, urinary or bowel dysfunction, [...] record of the patient encounter. Inadvertent computerized small engine specialist errors related to syntax, spelling, homophones, and/or inaudibility may be present. JOSEMANUEL Kirk 02/12/24 1039 documented in this encounter [facility] 02-12-2024 Instructions Desirae Dawn - 02/12/2024 9:15 AM EDT Patient was seen today by Misti. Lumbar flexion-extension x-rays. Medrol Dosepak. Refer to physical therapy. Lumbar MRI without contrast. Patient will follow up with Dr. Nolen, Neurosurgeon, once MRI is complete. documented in this encounter [facility] 12-27-2023 Nurse Note Discharge instructions provided to patient. Patient verbalized understanding, and denies any further concerns at this time. IV removed at time of discharged. Patient gathered belongings from room. Patient in no apparent distress. Patient taken to entrance b in a wheelchair with . [facility] 12-27-2023 Nurse Note Discharge instructions provided to patient. Patient verbalized understanding, and denies any further concerns at this time. IV removed at time of discharged. Patient gathered belongings from room. Patient in no apparent distress. Patient taken to entrance b in a wheelchair with . documented in this encounter [facility] 12-27-2023 Plan of care note Problem: Pain Goal: Patient goal is pain score less than 4, able to rest, and participant in treatment plan as appropriate Description: INTERVENTIONS: 1. Encourage patient or legal food service representative to report early pain and [...] per policy 9. Teach patient or legal food service representative interventions for comforting 12/27/2023 1259 [...] at the bedside 7. Instruct patient/ patient food service representative about use of safety devices 8. Include patient/ patient food service representative in decisions related to safety [...] hygiene technique 7. Identify and instruct patient/patient food service representative in use of appropriate isolation precautions for identified infection/symptoms 8. Provide and discuss with patient/patient food service representative on educational MDRO sheet 9. Encourage and monitor nutritional status daily and consult wiring inspector if indicated 10. Implement neutropenic guidelines as [...] care ongoing. Problem: Knowledge Deficit Goal: Patient/patient food service representative demonstrates understanding of disease process, [...] =/> 25 or indicated by [facility] Assessment Goal: Patient should be free from fall Description: Interventions: 1. [place] to environment 2. Hourly rounds addressing the [...] non-skid footwear 11. Teach patient and patient food service representative to maintain environment for safety [...] (cane, walker) within reach 19. Request patient food service representative bring adaptive equipment/mobility aids from home or obtain and provide as needed 20. Consult pharmacy regarding effects of med's affecting mobility, cognition, and alternatives 21. Obtain physician order for PT if risk factors associated with mobility are present 22. Obtain physician order for OT as appropriate 23. Utilize diversional activities 24. Educate patient and patient food service representative how to maintain a safe environment during visitation times (notify nurse prior to leaving bedside) 25. Consider appropriateness of medical or non-medical physics researcher 26. Set up voiding schedule as appropriate [...] progress towards goal: Plan of care ongoing. [facility] [employer] 12-27-2023 Miscellaneous Notes Problem: Pain Goal: Patient goal is pain score less than 4, able to rest, and participant in treatment plan as appropriate Description: INTERVENTIONS: 1. Encourage patient or legal food service representative to report early pain and [...] per policy 9. Teach patient or legal food service representative interventions for comforting 12/27/2023 1259 [...] at the bedside 7. Instruct patient/ patient food service representative about use of safety devices 8. Include patient/ patient food service representative in decisions related to safety [...] hygiene technique 7. Identify and instruct patient/patient food service representative in use of appropriate isolation precautions for identified infection/symptoms 8. Provide and discuss with patient/patient food service representative on educational MDRO sheet 9. Encourage and monitor nutritional status daily and consult wiring inspector if indicated 10. Implement neutropenic guidelines as [...] care ongoing. Problem: Knowledge Deficit Goal: Patient/patient food service representative demonstrates understanding of disease process, [...] =/> 25 or indicated by [facility] Assessment Goal: Patient should be free from fall Description: Interventions: 1. [place] to environment 2. Hourly rounds addressing the [...] non-skid footwear 11. Teach patient and patient food service representative to maintain environment for safety [...] (cane, walker) within reach 19. Request patient food service representative bring adaptive equipment/mobility aids from home or obtain and provide as needed 20. Consult pharmacy regarding effects of med's affecting mobility, cognition, and alternatives 21. Obtain physician order for PT if risk factors associated with mobility are present 22. Obtain physician order for OT as appropriate 23. Utilize diversional activities 24. Educate patient and patient food service representative how to maintain a safe environment during visitation times (notify nurse prior to leaving bedside) 25. Consider appropriateness of medical or non-medical physics researcher 26. Set up voiding schedule as appropriate [...] Description: INTERVENTIONS: 1. Encourage patient or legal food service representative to report early pain and [...] per policy 9. Teach patient or legal food service representative interventions for comforting Outcome: Progressing [...] at the bedside 7. Instruct patient/ patient food service representative about use of safety devices 8. Include patient/ patient food service representative in decisions related to safety [...] hygiene technique 7. Identify and instruct patient/patient food service representative in use of appropriate isolation precautions for identified infection/symptoms 8. Provide and discuss with patient/patient food service representative on educational MDRO sheet 9. Encourage and monitor nutritional status daily and consult wiring inspector if indicated 10. Implement neutropenic guidelines as needed 11. Review exposure to history of communicable disease and recent travel history on admission 12. Encourage annual influenza vaccine 13. Encourage pneumonia vaccine Outcome: Progressing Note: Evaluation of progress towards goal: Patient denies fever. No purulent drainage noted at site. Plan of care ongoing. Problem: Knowledge Deficit Goal: Patient/patient food service representative demonstrates understanding of disease process, [...] be free from fall Description: Interventions: 1. [place] to environment 2. Hourly rounds addressing the [...] non-skid footwear 11. Teach patient and patient food service representative to maintain environment for safety [...] (cane, walker) within reach 19. Request patient food service representative bring adaptive equipment/mobility aids from home or obtain and provide as needed 20. Consult pharmacy regarding effects of med's affecting mobility, cognition, and alternatives 21. Obtain physician order for PT if risk factors associated with mobility are present 22. Obtain physician order for OT as appropriate 23. Utilize diversional activities 24. Educate patient and patient food service representative how to maintain a safe environment during visitation times (notify nurse prior to leaving bedside) 25. Consider appropriateness of medical or non-medical physics researcher 26. Set up voiding schedule as appropriate [...] Description: INTERVENTIONS: 1. Encourage patient or legal food service representative to report early pain and [...] per policy 9. Teach patient or legal food service representative interventions for comforting Outcome: Progressing [...] at the bedside 7. Instruct patient/ patient food service representative about use of safety devices 8. Include patient/ patient food service representative in decisions related to safety [...] hygiene technique 7. Identify and instruct patient/patient food service representative in use of appropriate isolation precautions for identified infection/symptoms 8. Provide and discuss with patient/patient food service representative on educational MDRO sheet 9. Encourage and monitor nutritional status daily and consult wiring inspector if indicated 10. Implement neutropenic guidelines as needed 11. Review exposure to history of communicable disease and recent travel history on admission 12. Encourage annual influenza vaccine 13. Encourage pneumonia vaccine Outcome: Progressing Note: Evaluation of progress towards goal: patient free from s/s of infection Problem: Knowledge Deficit Goal: Patient/patient food service representative demonstrates understanding of disease process, [...] =/> 25 or indicated by [facility] Assessment Goal: Patient should be free from fall Description: Interventions: 1. [place] to environment 2. Hourly rounds addressing the [...] non-skid footwear 11. Teach patient and patient food service representative to maintain environment for safety [...] (cane, walker) within reach 19. Request patient food service representative bring adaptive equipment/mobility aids from home or obtain and provide as needed 20. Consult pharmacy regarding effects of med's affecting mobility, cognition, and alternatives 21. Obtain physician order for PT if risk factors associated with mobility are present 22. Obtain physician order for OT as appropriate 23. Utilize diversional activities 24. Educate patient and patient food service representative how to maintain a safe environment during visitation times (notify nurse prior to leaving bedside) 25. Consider appropriateness of medical or non-medical physics researcher 26. Set up voiding schedule as appropriate [...] Description: INTERVENTIONS: 1. Encourage patient or legal food service representative to report early pain and [...] per policy 9. Teach patient or legal food service representative interventions for comforting Outcome: Progressing [...] at the bedside 7. Instruct patient/ patient food service representative about use of safety devices 8. Include patient/ patient food service representative in decisions related to safety [...] hygiene technique 7. Identify and instruct patient/patient food service representative in use of appropriate isolation precautions for identified infection/symptoms 8. Provide and discuss with patient/patient food service representative on educational MDRO sheet 9. Encourage and monitor nutritional status daily and consult wiring inspector if indicated 10. Implement neutropenic guidelines as needed 11. Review exposure to history of communicable disease and recent travel history on admission 12. Encourage annual influenza vaccine 13. Encourage pneumonia vaccine Outcome: Progressing Note: Evaluation of progress towards goal: Patient is being monitored for s/sx of infection. Problem: Knowledge Deficit Goal: Patient/patient food service representative demonstrates understanding of disease process, [...] =/> 25 or indicated by [facility] Assessment Goal: Patient should be free from fall Description: Interventions: 1. [place] to environment 2. Hourly rounds addressing the [...] non-skid footwear 11. Teach patient and patient food service representative to maintain environment for safety [...] (cane, walker) within reach 19. Request patient food service representative bring adaptive equipment/mobility aids from home or obtain and provide as needed 20. Consult pharmacy regarding effects of med's affecting mobility, cognition, and alternatives 21. Obtain physician order for PT if risk factors associated with mobility are present 22. Obtain physician order for OT as appropriate 23. Utilize diversional activities 24. Educate patient and patient food service representative how to maintain a safe environment during visitation times (notify nurse prior to leaving bedside) 25. Consider appropriateness of medical or non-medical physics researcher 26. Set up voiding schedule as appropriate [...] Medical History: Diagnosis Date Cancer of prostate ([facility]) 2017 prostatectomy Diverticulitis Diverticulosis Fecal impaction ([facility]) Inflammation of sacroiliac joint ([facility]) Knee pain Low back pain Lumbar disc disorder Neurogenic claudication 12/17/2023 Osteoarthritis SBO (small bowel obstruction) (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 02/08/2020 Visual impairment 12/20/2023 Past Surgical History: Procedure Laterality Date ABDOMINAL ADHESION SURGERY COLONOSCOPY COLONOSCOPY N/A 03/25/2023 Performed by Johnathan Campbell DO at [facility] EXPRESS HERNIA REPAIR Left inguinal HIP SURGERY Left LAMINECTOMY LUMBAR MULTI LEVEL / L2-L5 N/A 12/25/2023 Performed by Mayco Nolen MD at [facility] PROSTATE BIOPSY PROSTATECTOMY REVISION TOTAL KNEE [...] pass Equipment: RW, gait belt, wound drain Telemetry/Reference Librarian: Yes Oxygen Used: room air Other: fall [...] Patient will perform bed mobility with Modified [place] Dates: Start: 12/26/23 Expected End: 01/24/24 Description: Goal Description: with proper BUE placement and sequencing Disciplines: PT Problem: Gait Dates: Start: 12/26/23 Disciplines: PT Goal: Patient will perform gait with Modified [place] Dates: Start: 12/26/23 Expected End: 01/24/24 Description: With__RW__,__150__feet Goal Description: with proper gait pattern and safety awareness Disciplines: PT Problem: Stairs/Curb Dates: Start: 12/26/23 Disciplines: PT Goal: Patient will perform stairs/curb with Modified [place] Dates: Start: 12/26/23 Expected End: 01/24/24 Description: [...] Goal: Patient will perform transfers with Modified [place] Dates: Start: 12/26/23 Expected End: 01/24/24 Description: [...] Description: INTERVENTIONS: 1. Encourage patient or legal food service representative to report early pain and [...] per policy 9. Teach patient or legal food service representative interventions for comforting Outcome: Progressing [...] hygiene technique 7. Identify and instruct patient/patient food service representative in use of appropriate isolation precautions for identified infection/symptoms 8. Provide and discuss with patient/patient food service representative on educational MDRO sheet 9. Encourage and monitor nutritional status daily and consult wiring inspector if indicated 10. Implement neutropenic guidelines as [...] [place] punches. I then checked with a [employer] elevator and confirmed that there was no [...] Nolen MD - Primary Assistants: None Staff: Manager Support Services Primary: Lily Glasgow RN Manager Support Services Relief: Dina Roy RN Scrub Person: Janak [...] Implant Name Type Inv. Item Serial No. Complementary Health Therapists Lot No. LRB No. Used Action PATCH DURA 1X1IN DRMTRX-ONLAY + CLGN RGNRT MEMBR STRL RPL [id number] - [id number] Graft PATCH DURA 1X1IN DRMTRX-ONLAY + CLGN RGNRT MEMBR STRL RPL [id number] PAULINA CRANIOMAXILLOFACIAL [id number] N/A 1 Implanted Estimated Blood Loss: 100 [...] no further orders documented in this encounter [facility] 12-27-2023 Hospital course Narrative Images from the original note were not included. [facility] [address] [place] [address], [address] [place] [address] * NEUROSURGERY DISCHARGE SUMMARY Patient: Regan Green Date of : 1950 Acct: [id number] Primary Care Physician: Sumanth Hill MD Admit [...] 75 mg EC tablet Commonly known as: VOLTTower [employer] ORAL OSTEO BI-FLEX ORAL oxyCODONE-acetaminophen 5-325 mg per tablet Commonly known as: PERCOCET tiZANidine 4 mg tablet Commonly known as: ZANAFLEX Where to Get Your Medications These medications were sent to [facility] [id number] [address] [facility] [address] methocarbamoL 500 mg tablet naloxone 4 mg/actuation [...] have been deemed acceptable and clinically appropriate. OJSEMANUEL Lainez Neurosurgery [facility] Patient Touch 12/27/23 12:28 PM JOSEMANUEL Sandoval 12/27/23 1231 documented in this encounter [facility] 12-27-2023 Hospital Discharge instructions JOSEMANUEL Sandoval [...] remove at that time. Other Instructions: Call [facility] Neurosurgery with any questions, . The following attachments cannot be sent through Care Everywhere.Radiculopathy Discharge Instructions (Urdu)documented in this encounter [facility] 12-27-2023 Plan of care note Problem: Pain Goal: Patient goal is pain score less than 4, able to rest, and participant in treatment plan as appropriate Description: INTERVENTIONS: 1. Encourage patient or legal food service representative to report early pain and [...] per policy 9. Teach patient or legal food service representative interventions for comforting Outcome: Progressing [...] at the bedside 7. Instruct patient/ patient food service representative about use of safety devices 8. Include patient/ patient food service representative in decisions related to safety [...] hygiene technique 7. Identify and instruct patient/patient food service representative in use of appropriate isolation precautions for identified infection/symptoms 8. Provide and discuss with patient/patient food service representative on educational MDRO sheet 9. Encourage and monitor nutritional status daily and consult wiring inspector if indicated 10. Implement neutropenic guidelines as needed 11. Review exposure to history of communicable disease and recent travel history on admission 12. Encourage annual influenza vaccine 13. Encourage pneumonia vaccine Outcome: Progressing Note: Evaluation of progress towards goal: Patient denies fever. No purulent drainage noted at site. Plan of care ongoing. Problem: Knowledge Deficit Goal: Patient/patient food service representative demonstrates understanding of disease process, [...] =/> 25 or indicated by [facility] Assessment Goal: Patient should be free from fall Description: Interventions: 1. [place] to environment 2. Hourly rounds addressing the [...] non-skid footwear 11. Teach patient and patient food service representative to maintain environment for safety [...] (cane, walker) within reach 19. Request patient food service representative bring adaptive equipment/mobility aids from home or obtain and provide as needed 20. Consult pharmacy regarding effects of med's affecting mobility, cognition, and alternatives 21. Obtain physician order for PT if risk factors associated with mobility are present 22. Obtain physician order for OT as appropriate 23. Utilize diversional activities 24. Educate patient and patient food service representative how to maintain a safe environment during visitation times (notify nurse prior to leaving bedside) 25. Consider appropriateness of medical or non-medical physics researcher 26. Set up voiding schedule as appropriate [...] progress towards goal: Plan of care ongoing. [facility] 12-27-2023 Progress note Formatting of t his note is different from the original. Physical Therapy CANCEL - Deferred Per RN pt is dizzy and diaphoretic laying supine in bed. Will hold PT treatment and attempt to complete session as able. [facility] 12-27-2023 History of Present illness Narrative Images from the original note were not included. [facility] [address] [place] [address], [address] [place] [address] * NEUROSURGERY DAILY PROGRESS NOTE DATE:12/27/2023 PATIENT'S [...] - DC Planning - Home later today Christina Varma, TORCH HEATER-HUMAN RESOURCES SPECIALIST Neurosurgery [facility] Patient Touch 12/27/23 6:04 AM To find out which ESTEFANY is on for the day please go to [employer] and use log in [employer] and search for PTH Neurosurgery JOSEMANUEL Sandoval 12/26/23 1010 JOSEMANUEL Sandoval 12/27/23 1228 Images from the original note were not included. [facility] [address] [place] [address], [address] [place] [address] * NEUROSURGERY DAILY PROGRESS NOTE DATE:12/26/2023 PATIENT'S [...] possible dc home later vs in AM Christina Varma APRN-HUMAN RESOURCES SPECIALIST Neurosurgery [facility] Patient Touch 12/26/23 9:51 AM To find out which ESTEFANY is on for the day please go to [employer] and use log in [employer] and search for PTH Neurosurgery JOSEMANUEL Sandoval 12/26/23 1010 documented in this encounter [facility] 12-27-2023 Plan of care note Problem: Pain Goal: Patient goal is pain score less than 4, able to rest, and participant in treatment plan as appropriate Description: INTERVENTIONS: 1. Encourage patient or legal food service representative to report early pain and [...] per policy 9. Teach patient or legal food service representative interventions for comforting Outcome: Progressing [...] at the bedside 7. Instruct patient/ patient food service representative about use of safety devices 8. Include patient/ patient food service representative in decisions related to safety [...] hygiene technique 7. Identify and instruct patient/patient food service representative in use of appropriate isolation precautions for identified infection/symptoms 8. Provide and discuss with patient/patient food service representative on educational MDRO sheet 9. Encourage and monitor nutritional status daily and consult wiring inspector if indicated 10. Implement neutropenic guidelines as needed 11. Review exposure to history of communicable disease and recent travel history on admission 12. Encourage annual influenza vaccine 13. Encourage pneumonia vaccine Outcome: Progressing Note: Evaluation of progress towards goal: patient free from s/s of infection Problem: Knowledge Deficit Goal: Patient/patient food service representative demonstrates understanding of disease process, [...] be free from fall Description: Interventions: 1. [place] to environment 2. Hourly rounds addressing the [...] non-skid footwear 11. Teach patient and patient food service representative to maintain environment for safety [...] (cane, walker) within reach 19. Request patient food service representative bring adaptive equipment/mobility aids from home or obtain and provide as needed 20. Consult pharmacy regarding effects of med's affecting mobility, cognition, and alternatives 21. Obtain physician order for PT if risk factors associated with mobility are present 22. Obtain physician order for OT as appropriate 23. Utilize diversional activities 24. Educate patient and patient food service representative how to maintain a safe environment during visitation times (notify nurse prior to leaving bedside) 25. Consider appropriateness of medical or non-medical physics researcher 26. Set up voiding schedule as appropriate [...] goal: patient maintaining body alignment per self [facility] 12-26-2023 Plan of care note Problem: Pain Goal: Patient goal is pain score less than 4, able to rest, and participant in treatment plan as appropriate Description: INTERVENTIONS: 1. Encourage patient or legal food service representative to report early pain and [...] per policy 9. Teach patient or legal food service representative interventions for comforting Outcome: Progressing [...] at the bedside 7. Instruct patient/ patient food service representative about use of safety devices 8. Include patient/ patient food service representative in decisions related to safety [...] hygiene technique 7. Identify and instruct patient/patient food service representative in use of appropriate isolation precautions for identified infection/symptoms 8. Provide and discuss with patient/patient food service representative on educational MDRO sheet 9. Encourage and monitor nutritional status daily and consult wiring inspector if indicated 10. Implement neutropenic guidelines as needed 11. Review exposure to history of communicable disease and recent travel history on admission 12. Encourage annual influenza vaccine 13. Encourage pneumonia vaccine Outcome: Progressing Note: Evaluation of progress towards goal: Patient is being monitored for s/sx of infection. Problem: Knowledge Deficit Goal: Patient/patient food service representative demonstrates understanding of disease process, [...] =/> 25 or indicated by [facility] Assessment Goal: Patient should be free from fall Description: Interventions: 1. [place] to environment 2. Hourly rounds addressing the [...] non-skid footwear 11. Teach patient and patient food service representative to maintain environment for safety [...] (cane, walker) within reach 19. Request patient food service representative bring adaptive equipment/mobility aids from home or obtain and provide as needed 20. Consult pharmacy regarding effects of med's affecting mobility, cognition, and alternatives 21. Obtain physician order for PT if risk factors associated with mobility are present 22. Obtain physician order for OT as appropriate 23. Utilize diversional activities 24. Educate patient and patient food service representative how to maintain a safe environment during visitation times (notify nurse prior to leaving bedside) 25. Consider appropriateness of medical or non-medical physics researcher 26. Set up voiding schedule as appropriate [...] towards goal: Patient maintains proper anatomical alignment. [facility] 12-26-2023 Progress note Formatting of t his [...] Medical History: Diagnosis Date Cancer of prostate ([facility]) 2017 prostatectomy Diverticulitis Diverticulosis Fecal impaction ([facility]) Inflammation of sacroiliac joint ([facility]) Knee pain Low back pain Lumbar disc disorder Neurogenic claudication 12/17/2023 Osteoarthritis SBO (small bowel obstruction) (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 02/08/2020 Visual impairment 12/20/2023 Past Surgical History: Procedure Laterality Date ABDOMINAL ADHESION SURGERY COLONOSCOPY COLONOSCOPY N/A 03/25/2023 Performed by Johnathan Campbell DO at [facility] EXPRESS HERNIA REPAIR Left inguinal HIP SURGERY Left LAMINECTOMY LUMBAR MULTI LEVEL / L2-L5 N/A 12/25/2023 Performed by Mayco Nolen MD at [facility] PROSTATE BIOPSY PROSTATECTOMY REVISION TOTAL KNEE [...] pass Equipment: RW, gait belt, wound drain Telemetry/Reference Librarian: Yes Oxygen Used: room air Other: fall [...] Patient will perform bed mobility with Modified [place] Dates: Start: 12/26/23 Expected End: 01/24/24 Description: Goal Description: with proper BUE placement and sequencing Disciplines: PT Problem: Gait Dates: Start: 12/26/23 Disciplines: PT Goal: Patient will perform gait with Modified [place] Dates: Start: 12/26/23 Expected End: 01/24/24 Description: With__RW__,__150__feet Goal Description: with proper gait pattern and safety awareness Disciplines: PT Problem: Stairs/Curb Dates: Start: 12/26/23 Disciplines: PT Goal: Patient will perform stairs/curb with Modified [place] Dates: Start: 12/26/23 Expected End: 01/24/24 Description: [...] Goal: Patient will perform transfers with Modified [place] Dates: Start: 12/26/23 Expected End: 01/24/24 Description: Goal Description: with proper BUE placement and sequencing Disciplines: PT Physical Therapy Care Plan (Resolved) There are no resolved problems. Principal Problem: Radiculopathy, lumbar region Active Problems: Neurogenic claudication [facility] [employer] [facility] 12-26-2023 Progress note Formatting of [...] smoking, drinking alcohol or doing illciit drugs. [facility] 12-26-2023 Plan of care note Problem: Pain Goal: Patient goal is pain score less than 4, able to rest, and participant in treatment plan as appropriate Description: INTERVENTIONS: 1. Encourage patient or legal food service representative to report early pain and [...] per policy 9. Teach patient or legal food service representative interventions for comforting Outcome: Progressing [...] hygiene technique 7. Identify and instruct patient/patient food service representative in use of appropriate isolation precautions for identified infection/symptoms 8. Provide and discuss with patient/patient food service representative on educational MDRO sheet 9. Encourage and monitor nutritional status daily and consult wiring inspector if indicated 10. Implement neutropenic guidelines as [...] of progress towards goal: progressing with walker [facility] 12-25-2023 Procedure note NEUROSURGERY OPERATIVE NOTE Patient Name: Regan Green Patient Patient Date of : 1950 Date of Surgery: 12/25/2023 Preoperative Diagnosis: Degenerative lumbar spondylosis L2-L5 with neural compression and neurogenic claudication Postoperative Diagnosis: Same as above Surgeon: aMyco Nolen MD Anesthesia: General endotracheal Procedures Performed: [...] room with stable vital signs. Complications: None. [employer] 12-25-2023 Procedure note Brief Post-op Note NAME: Regan Green : 1950 PROCEDURE DATE: 12/25/2023 Surgeon: Surgeon(s) and Role: * Mayco Nolen MD - Primary Assistants: None Staff: Manager Support Services Primary: Lily Glasgow RN Manager Support Services Relief: Dina Roy RN Scrub Person: Janak [...] Implant Name Type Inv. Item Serial No. Complementary Health Therapists Lot No. LRB No. Used Action PATCH DURA 1X1IN DRMTRX-ONLAY + CLGN RGNRT MEMBR STRL RPL [id number] - [id number] Graft PATCH DURA 1X1IN DRMTRX-ONLAY + CLGN RGNRT MEMBR STRL RPL [id number] PAULINA CRANIOMAXILLOFACIAL [id number] N/A 1 Implanted Estimated Blood Loss: 100 ml OB Surgical Procedure Blood Loss: Anesthesia EBL: * No values recorded between 12/25/2023 3:09 PM and 12/25/2023 4:54 PM * OB QBL: * No values recorded between 12/25/2023 3:09 PM and 12/25/2023 4:54 PM * Condition: stable Findings: severe lateral recess stenosis [employer] 12-25-2023 Attending History and physical note HISTORY AND PHYSICAL INTERVAL NOTE: Regan Green 1950 [id number] H&P reviewed. The patient was examined and there are no changes to the H&P. Mayco Nolen MD Source Note - JOSEMANUEL Daniels - 12/20/2023 6:12 PM EST Letter to pain management seeking clarification on post operative pain medications. JOSEMANUEL Jackson [facility] Contact via patient touch 12/20/23 6:21 PM To find out which ESTEFANY is on for the day please go to [employer] and use log in [employer] and search for PTH Neurosurgery (ESTEFANY and Phone Number is listed) JOSEMANUEL Daniels 12/20/23 4727 JOSEMANUEL Daniels 12/25/23 1020 [facility] 12-25-2023 History and physical note HISTORY AND PHYSICAL INTERVAL NOTE: Regan Green 1950 [id number] H&P reviewed. The patient was examined and there are no changes to the H&P. Mayco Nolen MD Source Note - JOSEMANUEL Daniels - 12/20/2023 6:12 PM EST Letter to pain management seeking clarification on post operative pain medications. JOSEMANUEL Jackson [facility] Contact via patient touch 12/20/23 6:21 PM To find out which ESTEFANY is on for the day please go to [employer] and use log in [employer] and search for PTH Neurosurgery (ESTEFANY and Phone Number is listed) JOSEMANUEL Daniels 12/20/23 4373 JOSEMANUEL Daniels 12/25/23 1330 documented in this encounter [facility] 12-24-2023 Miscellaneous Notes I spoke to Kenneth to explain how Medicare authorizes surgeries. Reminded Kenneth of surgery tomorrow 12/25/23 at 2:45pm with TTH arrival time of 12:45 pm documented in this encounter [facility] 12-24-2023 Telephone encounter Note I spoke to Kenneth to explain how Medicare authorizes surgeries. Reminded Kenneth of surgery tomorrow 12/25/23 at 2:45pm with TTH arrival time of 12:45 pm [facility] 12-24-2023 Nurse Note Anesthesia review: Lumb Patel: 12/25: TTH: GA. only hx prostate CA. No c/o CP or SOB. EKGs: LAst PCP note Reviewed and accepted by Dr Vásquez with no further orders [facility] 12-20-2023 Miscellaneous Notes Patient called to advise office that he does not need surgery clearance from PCP. documented in this encounter [facility] 12-20-2023 Telephone encounter Note Patient called to advise office that he does not need surgery clearance from PCP. [facility] 12-20-2023 History and physical note PRE-ADMISSION [...] Medical History: Diagnosis Date Cancer of prostate ([facility]) 2017 prostatectomy Diverticulitis Diverticulosis Fecal impaction ([facility]) Inflammation of sacroiliac joint ([facility]) Knee pain Low back pain Lumbar disc disorder Neurogenic claudication 12/17/2023 Osteoarthritis SBO (small bowel obstruction) (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 02/08/2020 Visual impairment 12/20/2023 PAST SURGICAL HISTORY: Past Surgical History: Procedure Laterality Date ABDOMINAL ADHESION SURGERY COLONOSCOPY COLONOSCOPY N/A 03/25/2023 Performed by Johnathan Campbell DO at [facility] HERNIA REPAIR Left inguinal HIP SURGERY [...] the most recent lab values available in [facility] at the time of the office visit. PAT labs are pending per surgeon. ASSESSMENT / DIAGNOSIS: Linked DX: Radiculopathy, lumbar region [M54.16] PLAN: Regan Green is scheduled for Linked Case Date: 12/25/2023 Linked Surgeon: Forrest Nolen MD Linked Surgery: Laminectomy Lumbar Multi Level / L2-L5. JOSEMANUEL Santoyo 12/20/23 1511 [facility] 12-20-2023 History and physical note PRE-ADMISSION [...] Medical History: Diagnosis Date Cancer of prostate ([facility]) 2017 prostatectomy Diverticulitis Diverticulosis Fecal impaction ([facility]) Inflammation of sacroiliac joint ([facility]) Knee pain Low back pain Lumbar disc disorder Neurogenic claudication 12/17/2023 Osteoarthritis SBO (small bowel obstruction) (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 02/08/2020 Visual impairment 12/20/2023 PAST SURGICAL HISTORY: Past Surgical History: Procedure Laterality Date ABDOMINAL ADHESION SURGERY COLONOSCOPY COLONOSCOPY N/A 03/25/2023 Performed by Johnathan Campbell DO at [facility] HERNIA REPAIR Left inguinal HIP SURGERY [...] the most recent lab values available in [facility] at the time of the office visit. PAT labs are pending per surgeon. ASSESSMENT / DIAGNOSIS: Linked DX: Radiculopathy, lumbar region [M54.16] PLAN: Regan Green is scheduled for Linked Case Date: 12/25/2023 Linked Surgeon: Forrest Nolen MD Linked Surgery: Laminectomy Lumbar Multi Level / L2-L5. JOSEMANUEL Santoyo 12/20/23 1511 documented in this encounter [facility] 12-20-2023 Instructions Antonia Rosario RN - 12/20/2023 1:45 PM EST Your surgery/procedure is scheduled at [facility] on 12/25 at 2:45 Arrival Time 12:45 [facility] Address: [address] [place] [address] in P1 Parking lot located on [facility]. Report to the Entrance B. Check in at the information desk the surgery. The waiting room located on the second floor. If you have any questions prior to surgery, please call Pre-Admission Clinic at [phone] between 7:30 am and 4:30 pm Saturday through Saturday. If you have questions the morning of surgery, please call the Pre-op Department at [phone]. Notify your SURGEON if you develop any [...] would like to schedule therapy at a [facility] facility, please call [phone] ([phone]). Do not use lotions, creams, powders, perfume, make up, cologne or after-shaves day of surgery. Remove ALL jewelry including wedding rings, body piercings,hair extensions that contain metal, nail fijian, make-up, and contact lens. You may brush [...] RIGHTS AND RESPONSIBILITIES As a patient at [facility], you have the right to: Receive medical care and be informed of who is taking care of you Be treated with dignity and respect Have a family member/food service representative of choice and your physician notified of your admission Receive information and actively participate in decisions about your care and treatment Refuse care, treatment and services Decide who may provide your support and speak for you Access sikhism and spiritual services Participate in ethical issues [...] of hospital charges and payment methods Patient/patient food service representative responsibilities are to: Provide information [...] in clean clothes. documented in this encounter [facility] 12-18-2023 History of Present illness Narrative [...] 10/04/23 no acute pulmonary pathology JOSEMANUEL Jackson [facility] Contact via patient touch 12/21/23 6:10 AM To find out which ESTEFANY is on for the day please go to [employer] and use log in [employer] and search for [facility] Neurosurgery (ESTEFANY and Phone Number is listed) JOSEMANUEL Daniels 12/25/23 2713 documented in this encounter [facility] 12-10-2023 Miscellaneous Notes Regan calls into [...] would have to speak with Dr. Nolen reed press feeder about surgery. Patient transferred to Dr. Nolen reed press feeder. documented in this encounter [employer] 12-10-2023 Telephone encounter Note Regan calls into [...] would have to speak with Dr. Nolen reed press feeder about surgery. Patient transferred to Dr[facility] reed press feeder. [facility] Miscellaneous Notes Kenneth left a message to ask how many physical therapy visits he should try to complete before scheduling surgery. Left message for Kenneth to let him know at least six visits usually show good effort but if these are unsuccessful he needs to make sure the physical therapist is documenting increase of pain or ineffectiveness. documented in this encounter [facility] 11-27-2023 Telephone encounter Note Kenneth left a message to ask how many physical therapy visits he should try to complete before scheduling surgery. [facility] 11-27-2023 Telephone encounter Note Left message for Kenneth to let him know at least six visits usually show good effort but if these are unsuccessful he needs to make sure the physical therapist is documenting increase of pain or ineffectiveness. [facility] 11-14-2023 History of Present illness Narrative Images from the original note were not included. [facility] [address] [place] [address], [address] [place] [address] * CHART NOTE ? 11/14/2023 Patient: Regan Green 1950 [id number] Nurse Practitioner: Carl Sosa, HUMAN RESOURCES SPECIALIST Physician: Mayco Nolen MD, FAANS CHIEF COMPLAINT [...] He was seen by [facility] in [place], but was advised they could no longer help. He has not had any interventional pain procedures, but was seen at [facility] in [place], [place], but was advised he should be seen here first. Patient's imaging was discussed and reviewed to their understanding in office today. Patient has not yet exhausted all conservative measures of treatment and is agreeable to them namely CHANTELLE. Denies loss of environmental services supervisor strength, saddle anesthesia, urinary or bowel dysfunction, [...] 03/25/2023 Performed by Johnathan Campbell DO at [facility] HERNIA REPAIR Left inguinal HIP SURGERY [...] Right achilles 2+ Left achilles 2+ Right environmental services supervisor 2+ Left environmental services supervisor 2+ Right Mack reflex absent and left [...] visible abscess or suspicious gas within the ivbmr-lp-ugin Close clinical follow-up and short-term progress repeat [...] but was seen at [facility] in [place], [place], but was advised he should be [...] record of the patient encounter. Inadvertent computerized small engine specialist errors related to syntax, spelling, homophones, and/or inaudibility may be present. Scribe Statement: Scribed for and in the presence of JOSEMANUEL Kirk by Joshua Higginbotham. JOSEMANUEL Kirk 11/14/23 1630 documented in this encounter [facility] 11-14-2023 Instructions AINSLEY Szymanski - 11/14/2023 9:30 AM EST Patient was seen by Dr. Nolen and JOSEMANUEL Chappell Patient was given an order for an x ray Lumbar spine Flex/Ext Medrol pack Physical therapy Referral for Lumbar to PT services Pain management referral for Lumbar L3-4 Patient will follow up after Pain management JA documented in this encounter [facility] 11-05-2023 Miscellaneous Notes ED Outreach This documentation is being used for Transition of Care purposes: Yes/No: Yes ED Outreach Date: November 05, 2023 ED Outreach Method: COMMUNICATION METHOD: Telephone ED Outreach Attempt: first ED Outreach Outcome: Contacted Patient Name of ED Facility: [facility] Date of ED Discharge: 10/31/2023 [...] with additional concerns. documented in this encounter [facility] 11-05-2023 Telephone encounter Note ED Outreach This documentation is being used for Transition of Care purposes: Yes/No: Yes ED Outreach Date: November 05, 2023 ED Outreach Method: COMMUNICATION METHOD: Telephone ED Outreach Attempt: first ED Outreach Outcome: Contacted Patient Name of ED Facility: [facility] Date of ED Discharge: 10/31/2023 [...] will contact the office with additional concerns. [facility] [employer] [facility] 10-30-2023 Evaluation note Encounter Date Diagnosis [...] pain of right shoulder (ICD-10 - M25.511) [employer] Other 12-19-2023 NoteCT LUMBAR SPINE WO CONT [...] abscess or suspicious gas visible within the cvyju-qz-lfej. Repeat contrast abdominal pelvic CT may prove useful in combination with colonic screening with appropriate Probable parapelvic cysts in the left kidney Prominent vascular calcifications There is some metal artifact related to a prior surgery at the left acetabular region. There are also clips in the low pelvis as seen on the company laborer image Sagittal images include from the lower [...] visible abscess or suspicious gas within the xhyxi-nq-illa Close clinical follow-up and short-term progress repeat abdominal pelvic contrast CT and colonic screening considered There is also be severe degenerative change of the lumbar spine and relatively severe canal and neural foraminal stenosis probably greatest at L3-4 and L4-5 levels There is no compression deformity or destructive bone process Finalized by Renaldo Tinajero MD on 10/22/2023 1:09 [facility] 08-20-2023 Evaluation note* Encounter Date Diagnosis [...] pain of right shoulder (ICD-10 - M25.511) [employer] Other 09-19-2023 Evaluation note* Encounter Date Diagnosis [...] pain of right shoulder (ICD-10 - M25.511) [employer] Other 08-21-2023 Evaluation note* Encounter Date Diagnosis [...] pain of right shoulder (ICD-10 - M25.511) [employer] Other 07-18-2023 Evaluation note* Encounter Date Diagnosis [...] given order for occupational therapy and braces [employer] Other 05-16-2023 NoteCONSULTATION CONSULTATION DATE: 03/19/2023 TO: [...] our patients to inform us about any fjoo-jhn-klijskl medications or herbal remedies/nutritional supplements/alternative remedies. 2. [...] treatment options with their primary care provider.[facility] [id number] Note CONSULTATION PROCEDURE DATE: 02/21/2023 PROCEDURE: Right [...] removed. He was discharged after meeting criteriaThe [facility] [id number] NoteCONSULTATION CONSULTATION DATE: 12/18/2022 CHIEF COMPLAINT: Left [...] like to proceed. CC: Sumanth Hill M.D.[facility] [id number] NoteCONSULTATION PROCEDURE DATE: 12/18/2022 PREOPERATIVE DIAGNOSIS: Osteoarthritis [...] will be followed up in the office.[facility] [id number] NoteCONSULTATION CONSULTATION DATE: 11/22/2022 HISTORY OF PRESENT [...] food. We will send a referral to [facility] to have his left CMC joint evaluated. Patient does agree with this, and we will follow him up in the clinic in three months' time.[facility] [id number] NotePROCEDURE: XR HAND LT MIN 3V HISTORY: [...] authenticated by: ALESSANDRO MEJIA Date: 2022-09-26 22:39[facility] [id number] NoteCONSULTATION CONSULTATION DATE: 09/20/2022 HISTORY OF PRESENT [...] mg t.i.d., Percocet 5/325 b.i.d., multivitamin and Ryuao-Pr-Kngk. Patient, procedure-holloway, had radiofrequency ablation of his [...] to the clinic thereafter for follow up.[facility] [id number] NoteCONSULTATION CONSULTATION DATE: 08/02/2022 HISTORY OF PRESENT [...] lately, carrying heavy feed bags into the [employer] for hunting season. He knows he is [...] of care and all questions were answered.[facility] [id number] NoteCONSULTATION CONSULTATION DATE: 06/14/2022 This is a [...] and Achilles reflexes are +2. DIAGNOSIS: Code [facility] is 724.6. PLAN: We will authorize for a left SI joint injection, refill his Percocet 5/325 b.i.d. and refill Diclofenac 50 mg t.i.d. He is compliant with his vitamin regimen. At this time, I reiterated the use of heat and stretches. The patient will be followed in the clinic post-procedure and agrees to move forward.[facility] RehabilitationEvaluation noteNo assessment information available [facility] Work Phone: evaluation note* Diagnosis Onset Date Resolution Status Left hand pain acute 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, left hand acute [facility] Work Phone: evaluation note* Diagnosis Onset Date Resolution Status Left hand pain acute 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, left hand acute Left hand pain acute 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, left hand acute [facility] Work Phone: evaluation note* Diagnosis Spondylolisthesis of lumbar region- Primary Acquired spondylolisthesis Abnormal findings on diagnostic imaging of other parts of musculoskeletal system documented in this encounter [facility] note* Diagnosis Spondylolisthesis of lumbar region Acquired spondylolisthesis Abnormal findings on diagnostic imaging of other parts of musculoskeletal system documented in this encounter [facility] note* Diagnosis Lumbar radiculopathy, chronic- Primary documented in this encounter [facility]* Diagnosis Neurogenic claudication- Primary Spinal stenosis of lumbar region Lumbar radiculopathy, chronic documented in this encounter [facility]* Diagnosis Radiculopathy, lumbar region [...] of lumbar region documented in this encounter [facility]* Diagnosis Adenocarcinoma of prostate ([facility] Primary Malignant neoplasm of prostate Spondylolisthesis of lumbar region documented in this encounter [facility]* Diagnosis Spondylolisthesis of lumbar region- Primary Status post lumbar laminectomy Radiculopathy, lumbar region Thoracic or lumbosacral neuritis or radiculitis, unspecified Spondylolisthesis of lumbar region documented [facility]* Diagnosis Radiculopathy, lumbar region- Primary Thoracic or lumbosacral neuritis or radiculitis, unspecified Radiculopathy, lumbar region Thoracic or lumbosacral neuritis or radiculitis, unspecified Neurogenic claudication Spinal stenosis of lumbar region Neurogenic claudication Spinal stenosis of lumbar region [facility]* Diagnosis Spondylolisthesis of lumbar region- Primary documented in [facility]* Diagnosis Status post lumbar laminectomy- Primary Low back pain, non-specific Leg pain, right Pain in soft tissues of limb Weakness of right lower extremity Sensory deficit, right documented in this encounter [facility]* Diagnosis Routine general medical examination at a health care facility- Primary Lumbar radiculopathy, chronic Spondylolisthesis of lumbar region Pure hypercholesterolemia Adenocarcinoma of prostate ([facility]) Malignant neoplasm of prostate documented in this encounter [facility]* Diagnosis Spondylolisthesis of lumbar region- Primary Acquired spondylolisthesis Abnormal findings on diagnostic imaging of other parts of musculoskeletal system documented in this encounter [facility] general Narrative - Reported* Type Description Date Medical History post knee right replacement Surgical History knee replacement right Surgical History hernia Surgical History prostatectomy Surgical History acetabulum fx Hospitalization History see above Digital Message Display Other InstructionsNot on filedocumented in this encounter [facility]Not on filedocumented in this encounter [facility] SystemInstructionsNot on filedocumented in this encounter [facility] SystemInstructionsNot on filedocumented in this encounter [facility] SystemInstructionsNot on filedocumented in this encounter [facility] SystemInstructionsNot on filedocumented in this encounter [facility]ructionsNot on filedocumented in this encounter [facility] System[facility] for referral (narrative)* Diagnostic Procedure Only (Routine) - Authorized Specialty Diagnoses / Procedures Referred By Contact Referred To Contact MOLECULAR & FUNCTIONAL IMAGING Diagnoses Abnormal findings on diagnostic imaging of other parts of musculoskeletal system Procedures NM BONE 3 PHASE BONE &/JOINT IMAGING 3 PHASE STUDY Johnathan Kraus MD [address] [place] [address] Molecular & Functional Imaging [address] [place] [address] Referral ID Status Reason Start Date Expiration Date Visits Requested Visits Authorized [id number] Authorized Auto-Generat ed Referral 11/25/2024 12/25/2025 1 1 * Diagnostic Procedure Only (Routine) - Authorized Specialty Diagnoses / Procedures Referred By Contac t Referred To Contact MOLECULAR & FUNCTIONAL IMAGING Diagnoses Spondylolisthesis of lumbar region Procedures NM BONE SPECT RP LOCLZJ BERENICE SPECT W/CT 1 AREA 1 DAY IMAGING Johnathan Kraus MD [address] [facility] [place] [address] Molecular & Functional Imaging [address] [place] [address] Referral ID Status Reason Start Date Expiration Date Visits Requested Visits Authorized [id number] Authorized Auto-Generat ed Referral 11/25/2024 12/25/2025 1 1 [facility] for referral (narrative)* Diagnostic Procedure Only (Routine) - Closed Specialty Diagnoses / Procedures Referred By Contact Referred To Contact MOLECULAR & FUNCTIONAL IMAGING Diagnoses Abnormal findings on diagnostic imaging of other parts of musculoskeletal system Procedures NM BONE 3 PHASE BONE &/JOINT IMAGING 3 PHASE STUDY Johnathan Kraus MD [id number] [address] Molecular & Functional Imaging [address] [place] [address] Referral ID Status Reason Start Date Expiration Date V isits Requested Visits Authorized [id number] Closed Auto-Generate d Referral 11/25/2024 12/25/2025 1 1 * Diagnostic Procedure Only (Routine) - Closed Specialty Diagnoses / Procedures Referred By Contac t Referred To Contact MOLECULAR & FUNCTIONAL IMAGING Diagnoses Spondylolisthesis of lumbar region Procedures NM BONE SPECT RP LOCLZJ BERENICE SPECT W/CT 1 AREA 1 DAY IMAGING Johnathan Kraus MD [address] [facility] [address] [place] [address] Molecular & Functional Imaging [address] [place] [address] Referral ID Status Reason Start Date Expiration Date V isits Requested Visits Authorized [id number] Closed Auto-Generate d Referral 11/25/2024 12/25/2025 1 1 [facility] for referral (narrative)* Consultation (Routine) - Pending Review Specialty Diagnoses / Procedures Referred By Contcheryr t Referred To Contact Neurosurgery Diagnoses Lumbar radiculopathy, chronic Sumanth Hill MD [address] [place] [address] [place] [address] [place] [id number] Referral ID Status Reason Start Date Expiration Date Visits Requested Visits Authorized [id number] Pending Review Specialty Services Required 11/05/2023 11/04/2024 1 1 [facility] for referral (narrative)* Consultation (Routine) - Pending Review Specialty Diagnoses / Procedures Referred By Contac t Referred To Contact Pain Medicine Diagnoses Lumbar radiculopathy, chronic Neurogenic claudication Carl Sosa, TORCH HEATER-LATOYA [address] [facility] [address] [place] [address] [address] Referral ID Status Reason Start Date Expiration Date V isits Requested Visits Authorized [id number] Pending Review 11/14/2023 11/13/2024 1 1 * Physical Therapy (Routine) - Pending Review Specialty Diagnoses / Procedures Referred By Contac t Referred To Contact Rehabilitation Diagnoses Lumbar radiculopathy, chronic Neurogenic claudication Carl Sosa APRN-CNP [address] [place] [phone] [facility] [address] [place] [phone] Referral ID Status Reason Start Date Expiration Date Visits Requested Visits Authorized [id number] Pending Review Specialty Services Required 11/14/2023 11/13/2024 1 1 [facility] for referral (narrative)* Consultation (Routine) - Pending Review Specialty Diagnoses / Procedures Referred By Contac t Referred To Contact Pain Medicine Diagnoses Spondylolisthesis of lumbar region Mayco Nolen MD [address] [place] [phone] James Ly MD [address] [place] [address] COMPREHENSIVE CUSTOMER PROGRAM [place]GER [place] [address] Referral ID Status Reason Start Date Expiration Date V isits Requested Visits Authorized [id number] Pending Review 04/23/2024 04/23/2025 1 1 * (Routine) - Pending Review Specialty Diagnoses / Procedures Referred By Contac t Referred To Contact Rehabilitation Diagnoses Spondylolisthesis of lumbar region Mayco Nolen MD [address] [place] [phone] Referral ID Status Reason Start Date Expiration Date Visits Requested Visits Authorized [id number] Pending Review Specialty Services Required 04/23/2024 10/23/2024 1 1 [facility] [employer] [facility] [employer] [facility] Summary Purpose Family History No [...] Referral Specialty Diagnoses / Procedures Referred By Contac t Referred To Contact Rehabilitation Diagnoses Status post lumbar laminectomy Leg pain, right Weakness of right lower extremity Carl Sosa, TORCH HEATER-HUMAN RESOURCES SPECIALIST [address] [place] [address] [facility] [address] [place] [phone] Referral ID Status Reason Start Date Expiration Date Visits Requested Visits Authorized [id number] Authorized Specialty Services Required 02/12/2024 02/11/2025 1 1 Specialty Diagnoses / Procedures Referred By Gaston borges Referred To Contact Radiology Diagnoses Status post lumbar laminectomy Low back pain, non-specific Leg pain, right Weakness of right lower extremity Sensory deficit, right Procedures MR lumbar spine without contrast Carl Sosa APRN-HUMAN RESOURCES SPECIALIST [address] [facility] [address] [place] [address] Referral ID Status Reason Start Date Expiration Date V isits Requested Visits Authorized [id number] Pending Review 02/12/2024 02/11/2025 1 1 Additional Source Comments (unrecognized sect ion and content) No Status Records FoundNo Status Records FoundNo Status Records FoundNo Status Records FoundNo Status Records FoundNo Status Records FoundNo Status Records FoundNo Status Records FoundNo Status Records FoundNo Status Records FoundNo Status Records Found INFORMATION SOURCE (unrecogn ized section and content) DATE CREATED AUTHOR 04/21/2018 [facility] DATE CREATED AUTHOR AUTHOR'S ORGANIZ ATION 02/25/2022 [facility] dical Specialist DATE CREATED AUTHOR AUTHOR'S ORGANIZ ATION 04/12/2023 [facility] DATE CREATED AUTHOR AUTHOR'S ORGANIZ ATION 04/25/2024 [facility] DATE CREATED AUTHOR AUTHOR'S ORGANIZ ATION 06/05/2024 [facility] DATE CREATED AUTHOR AUTHOR'S ORGANIZ ATION 06/19/2024 [facility] dical Specialists EPIC DATE CREATED AUTHOR AUTHOR'S ORGANIZ ATION 08/12/2024 [facility] DATE CREATED AUTHOR AUTHOR'S ORGANIZ ATION 08/26/2024 [facility] DATE CREATED AUTHOR AUTHOR'S ORGANIZ ATION 09/12/2024 [facility] DATE CREATED AUTHOR AUTHOR'S ORGANIZ ATION 12/22/2024 [facility] DATE CREATED AUTHOR AUTHOR'S ORGANIZ ATION 01/11/2025 [facility] REASON FOR VISIT (unrecogniz ed section and content) Reason Comments New Patient Reason Comments Radiology NM Specialty Diagnoses / Procedures Referred By Contact Referred To Contact MOLECULAR & FUNCTIONAL IMAGING Diagnoses Abnormal findings on diagnostic imaging of other parts of musculoskeletal system Procedures NM BONE 3 PHASE BONE &/JOINT IMAGING 3 PHASE STUDY Johnathan Kraus MD [address] [facility] [address] [place] [address] Molecular & Functional Imaging [address] [place] [address] Referral ID Status Reason Start Date Expiration Date V isits Requested Visits Authorized [id number] Closed Auto-Generate d Referral 11/25/2024 12/25/2025 1 1 Reason Onset Date Comments Er Follow-up 11/05/2023 Reason Comments New Patient scale agent/lumbar/promedica films/no w/c/mailed pkt Specialty Diagnoses / Procedures Referred By Gaston t Referred To Contact Neurosurgery Diagnoses Lumbar radiculopathy, chronic Defrance, Sumanth Borges MD [address] [facility] [place] [address] Mayco Nolen MD [address] [facility] [address] [place] [phone] Referral ID Status Reason Start Date Expiration Date Visits Requested Visits Authorized [id number] Pending Review Specialty Services Required 11/05/2023 11/04/2024 1 1 Reason Onset Date Comments surgery 12/10/2023 Reason Comments Follow-up Annual follow up wit h PSA Reason Onset Date Comments surgery 12/24/2023 Reason Comments Follow-up F/u mri results joseluis ent with worsening RLE radiculopathy Specialty Diagnoses / Procedures Referred By Gaston borges Referred To Contact Referral ID Status Reason Start Date Expiration Date Visits Re quested Visits Authorized [id number] 1 1 Reason Comments Follow-up 4-6 wk lumbar Reason Comments Post-op POST OP LUMBAR GIFTY ECTOMY Reason Comments Annual Exam Reason Onset Date Comments Request for retro C9 07/27/2024 Reason Comments Leg Pain Care Teams (unrecognized sec tion and content) [...] Active Charity Barkley MD Attending Provider Active Team Status: Inactive Member Role [...] May 22, 2024 End: May 22, 2024 Celery Tier Relationship Specialty Start Date End Date Sumanth Huang PCP - General Family Medicine 12/17/14 Team Status: Inactive Member Role Status Dates NON STAFF Primary Care Provider Active Start: July 31, 2024 End: July 31, 2024 Charity Barkley MD Attending Provider Active Start: July 31, 2024 End: July 31, 2024 Celery Tier Relationship Specialty Start Date End Date Sumanth Huang PCP - General Family Medicine 12/17/14 Celery Tier Relationship Specialty Start Date End Date Sumanth Huang PCP - General Family Medicine 12/17/14 Celery Tier Relationship Specialty Start Date End Date Sumanth Huang PCP - General Family Medicine 12/17/14 Celery Tier Relationship Specialty Start Date End Date Sumanth Hill MD [address] [place] [address] PCP - General Family Medicine 01/16/23 Celery Tier Relationship Specialty Start Date End Date Sumanth Hill MD [address] [place] [address] PCP - General Family Medicine 01/16/23 Celery Tier Relationship Specialty Start Date End Date Sumanth Hill MD [address] [place] [address] PCP - General Family Medicine 01/16/23 Celery Tier Relationship Specialty Start Date End Date Sumanth Hill MD [address] [place] [address] PCP - General Family Medicine 01/16/23 Celery Tier Relationship Specialty Start Date End Date Sumanth Hill MD [address] [place] [address] PCP - General Family Medicine 01/16/23 Celery Tier Relationship Specialty Start Date End Date Sumanth Hill MD [address] [place] [address] PCP - General Family Medicine 01/16/23 Celery Tier Relationship Specialty Start Date End Date Sumanth Hill MD [address] [place] [address] PCP - General Family Medicine 01/16/23 Celery Tier Relationship Specialty Start Date End Date Sumanth Hill MD [address] [place] [address] PCP - General Family Medicine 01/16/23 Celery Tier Relationship Specialty Start Date End Date Sumanth Hill MD [address] [place] [address] PCP - [facility] 01/16/23 Celery Tier Relationship Specialty Start Date End Date Sumanth Hill MD [address] [place] [address] PCP - [facility] 01/16/23 Celery Tier Relationship Specialty Start Date End Date Sumanth Hill MD [address] [place] [address] PCP - [facility] 01/16/23 Celery Tier Relationship Specialty Start Date End Date Sumanth Hill MD [address] [place] [address] PCP - [facility] 01/16/23 Celery Tier Relationship Specialty Start Date End Date Sumanth Hill MD [address] [place] [address] PCP - [facility] 01/16/23 Celery Tier Relationship Specialty Start Date End Date Sumanth Huang PCP - [facility] 12/17/14 Goals (unrecognized section and content) Goals may be documented in a n alternate section Source Comments (unrecognize d section and content) In the event this informatio n is protected by the Federal Confidentiality of Alcohol and Drug Abuse Patient Records regulations: The Federal rules restrict any use of the information to criminally investigate or prosecute any alcohol or drug abuse patient.[facility] the event this information is protected by the Federal Confidentiality of Alcohol and Drug Abuse Patient Records regulations: The Federal rules restrict any use of the information to criminally investigate or prosecute any alcohol or drug abuse patient.[facility] the event this information is protected by the Federal Confidentiality of Alcohol and Drug Abuse Patient Records regulations: The Federal rules restrict any use of the information to criminally investigate or prosecute any alcohol or drug abuse patient.[facility] the event this information is protected by the Federal Confidentiality of Alcohol and Drug Abuse Patient Records regulations: The Federal rules restrict any use of the information to criminally investigate or prosecute any alcohol or drug abuse patient.[facility] Center[facility] the event this information is protected by the Federal Confidentiality of Alcohol and Drug Abuse Patient Records regulations: The Federal rules restrict any use of the information to criminally investigate or prosecute any alcohol or drug abuse patient.[facility] Scheduled Active and Recently Administ ered Medications [...] RN) 822 (Given - Provider: José Miguel Dveine RN)2022 (Given - Provider: Pineda Alexandra RN) 0944 (Given - Provider: Michaelle Zeng, MIREILLE) gentamicin [...] 943 (Given - Provider: Michaelle Zeng, MIREILLE) sodium [...] RN) 1900 (Stop Bag - Provider: Pineda Alexandra, RN - Comment: not hanging at start [...] Sheri Adler, MIREILLE)1741 (Given - Provider: Sheri Adler, MIREILLE) glucagon HCL injection 1 mg 1 mg, [...] Vibha Saeed RN) lidocaine-EPINEPHrine (XYLOCAINE W/EPI) 1 %-1:[id number] injection (CANCELED) As needed, Starting on Sat12/25/23 [...] Indication: anxiety 1458 (Given - Provider: Vibha Saeed, MIREILLE) ondansetron (PF) (ZOFRAN) injection 4 mg 4 [...] Bahena, RN)1227 (Given - Provider: José Miguel Devine, RN)1752 (Given - Provider: José Miguel Devine RN) 0944 (Given - Provider: Michaelle Zeng, MIREILLE) oxyCODONE (ROXICODONE) immediate release tablet 5 mg(Linked Group 2) 5 mg, oral, Every 3 hours PRN, moderate pain - pain scale 4-6, Starting on Sat12/25/23 at 1715, PACU & Post-op, Look-alike/sound-alike medication - verify indication for use. Immediate release. 1721 (See Alternative - Provider: Sheri Adler, RN)2057 (See Alternative - Provider: Shira Thomas, RN)2335 (See Alternative - Provider: Bandar Bahena, MIREILLE) 0451 (See Alternative - Provider: Bandar Bahena, MIREILLE)1227 (See Alternative - Provider: José Miguel Devine, [...] BE BASED ON THE PRIMARY CLINICAL RECORDS. [employer] provides no warranty or guarantee of the accuracy or completeness of information in this document.
[2025-01-25 09:49] VITALS: BP 144/89; PULSE 76; TEMP 36.6; O2SAT 99
[2025-01-25 10:31] VITALS: BP 135/78; BP 140/78; PULSE 100; PULSE 101; O2SAT 95
--- NOTE | 2025-01-25 10:35 | P.ON_ITS ---
Date of procedure: 01/25/25 Pre-op diagnosis: Pain due to lumbar stenosis with neurogenic claudication Post-op diagnosis: same as pre-op Procedure: Procedure: Right L4-5, L5-S1 transforaminal epidural steroid injection Medications: Bupivacaine 0.25% 2cc, lidocaine 2% 1cc, depomedrol 80mg The patient was seen and examined in the preoperative holding area.? Informed consent was obtained and placed on the chart.? Patient was brought to the medical procedure unit and placed in the prone position where a timeout was completed verifying the correct patient, procedure site, position, and planned special equipment using sterile aseptic technique.? Under direct fluoroscopic visualization a 25-gauge Quincke tipped spinal needle was advanced to the designated neural foramen where contrast dye was injected to show adequate spread.? The needle was inserted at level right L4-5. There was no evidence of vascular or adverse uptake.? Epidural spread was appreciated.? The above- mentioned injectate was then placed in a 1.5 mL aliquot preceded by negative aspiration.? The needle was removed. The needle was inserted and the procedure repeated at level right L5-S1.? The surgery site was covered.? Patient was taken to the postprocedural recovery area and monitored for an appropriate length of time before found suitable for discharge in the accompaniment of a responsible adult. Anesthesia: Local Surgeon: Rosales Corona Pathology: none sent Condition: stable Disposition: no change
[2025-01-25] MEDS: IOHEXOL 240 MG/ML - 10 ML VIAL 12 MG INJ (10:36)
[2025-01-25] MEDS: 0.9 % SODIUM CHLORIDE 10 ML SYRINGE - SALINE FLUSH INJ (10:36)
[2025-01-25] MEDS: BUPIVACAINE HCL 0.25% PF 25 MG/10 ML VIAL INJ (10:36)
[2025-01-25] MEDS: LIDOCAINE HCL 2% 400 MG/20 ML MDV 3 ML INJ (10:36)
[2025-01-25] MEDS: METHYLPREDNISOLONE ACETATE 80 MG/ML VIAL INJ (10:37)
--- NOTE | 2025-01-25 11:29 | PC.NURSE ---
Patient stayed longer in post op in wheelchair as he had numbness down LLE. Waited for it to resolve for him to drive home safely. Dr. Corona aware. Pt taken to car by wheelchair
== END 2025-01-25 11:21 | disposition home or self-care (01) ==
PROVIDERS: PCP Family Medicine; Visit Provider Anesthesiology
DX: M48.062 Spinal stenosis, lumbar region with neurogenic claudication (principal); M54.50 Low back pain, unspecified
CPT/HCPCS: 64483; 64484; J0665; J1010; Q9966

== ENCOUNTER 2025-02-10 07:49 | Outpatient (OUT) | payer MEDICARE, OTHER, SELFPAY ==
--- NOTE | 2025-02-10 08:02 | PM.CN ---
Consult Note: HPI Data of Consult Patient: known to practice within the last 3 years Requesting Physician: Danielle Davila NP Primary Care Provider: SUMANTH BECK Consult Narrative Reason for consult: f/u Narrative: Regan Green a pleasant 74 year old male presents for evaluation. longstanding hx of back pain unresponsive to > 6 weeks of PT/provider guided HEP, heat, ice, tylenol and NSAIDs. prior advanced imaging consistent with multilevel lumbar spondylosis, stenosis, and lumbar DDD. continues to f/u with NS, planning for L4,5 fusion on 03/30/25 with [facility]. Pt recently underwent right L4/5 L5/S1 TFESI with >50% improvement in pain and functional ability ongoing. pain today 01/11 with standing, walking, twisting, pushing, pulling, activity. continues to utilize diclofenac, flexeril, percocet, gabapentin with benefit without side effects. cc:: CC: Danielle Davila NP Review of Systems ROS Status of ROS 10 or more systems reviewed and unremarkable except as noted in history and below Musculoskeletal Reports: back pain and extremity pain PFSH PFSH Medical History Rheumatoid arthritis ?M06.9 - Rheumatoid arthritis, unspecified (ICD-10) Low back pain ?M54.50 - Low back pain, unspecified (ICD-10) Prostate cancer ?C61 - Malignant neoplasm of prostate (ICD-10) Sacroiliitis, not elsewhere classified ?M46.1 - Sacroiliitis, not elsewhere classified (ICD-10) Surgical History Status post hip surgery ?Z98.890 - Other specified postprocedural states (ICD-10) S/P hernia repair ?Z98.890 - Other specified postprocedural states (ICD-10) ?Z87.19 - Personal history of other diseases of the digestive system (ICD-10) S/P total knee arthroplasty ?Z96.659 - Presence of unspecified artificial knee joint (ICD-10) S/P prostatectomy ?Z90.79 - Acquired absence of other genital organ(s) (ICD-10) Meds Home Medications and Allergies Home Medications ?Medication ?Instructions ?Recorded ?Confirmed ?Type OSCAL WITH D PO .QD 04/18/23 History glucosamine-chondroitin 250 mg-200 2 tab PO .QD 04/18/23 01/25/25 History mg tablet (Osteo Bi-Flex) multivitamin 1 tab PO DAILY 04/18/23 01/25/25 History vitamin B complex (Vitamins B 1 tab PO DAILY 01/22/24 01/25/25 History Complex tablet) diclofenac sodium 75 mg 75 mg PO BID PRN pain #60 tabs 05/14/24 01/25/25 Rx tablet,delayed release cyclobenzaprine 10 mg tablet 10 mg 05/19/24 History diclofenac sodium 75 mg 75 mg PO BID PRN pain #60 tabs 11/12/24 01/25/25 Rx tablet,delayed release oxycodone-acetaminophen 5 mg-325 1 tab PO BID PRN pain #60 tabs 11/18/24 01/25/25 Rx mg tablet (Percocet) cyclobenzaprine 10 mg tablet 10 mg PO TID PRN muscle spasm #90 12/09/24 01/25/25 Rx tabs gabapentin 300 mg capsule 300 mg PO TID #90 caps 12/16/24 01/25/25 Rx oxycodone-acetaminophen 5 mg-325 1 tab PO BID PRN pain #60 tabs 02/10/25 Rx mg tablet (Percocet) Allergies Allergy/AdvReac Type Severity Reaction Status Date / Time No Known Drug Allergies Allergy Verified 01/25/25 09:43 Exam Constitutional Documenting provider has reviewed patient's vital signs: yes Common normals: no apparent distress, oriented x3, healthy appearing, alert and well nourished General appearance: cooperative [facility] Common normals: normocephalic, hearing grossly normal bilaterally and moist oral mucous membranes Head and scalp: normocephalic Eye Common normals: PERRL Pupil: PERRL Neck & C-Spine Common normals: full ROM General: normal visual inspection Chest Common normals: inspection of chest normal Respiratory Common normals: normal respiratory effort, no retractions and no use of accessory muscles Back & Pelvis Lumbar spine/lower back: ROM limited, pain with ROM and straight leg raise negative bilaterally Other: strength 4/5 in RLE and 5/5 in LLE Neuro Common normals: oriented x3 Sensorium/orientation: alert Psych Common normals: mental status grossly normal, thought process normal, cooperative, affect normal, speech normal and activity/motor behavior normal Speech: normal speech Thought process: normal thought process Results Additional Findings Additional findings: If on a controlled substance or opioids, I have checked an [place]AR[place] report on this patient and there are no aberrancies noted in the prescribing history.??If on a controlled substance or opioid a drug screen was completed and reviewed within the last year, and if there has not been a drug screen completed we ordered one today to monitor higher risk, state monitored pain medication use. As part of providing excellent, safe, comprehensive care, the following was completed at our patient's visit: 1. A medication reconciliation and review to ensure accurate knowledge of current/active medications, including asking our patients to inform us about any ecuu-iss-kompfwo medications or herbal remedies/nutritional supplements/alternative remedies. 2. A review to specifically ensure our patients have had annual screening for screening for depression, screening for tobacco use, and screening for unhealthy alcohol use. For concerning screenings had a discussion with the patient, provided patient education, and recommended follow-up with primary care provider when appropriate. If patient noted with a risk of falling, they received education on strength, gait, and balance training to prevent future risk of falling. Portions of this note may have been carried over from the previous visit and updated as appropriate. Please note this office utilizes paper charting in addition to the electronic medical record. A list of current medications, vitals, and PMH is available there as the clinical staff outside of myself do not have access to [employer] charting during the clinic day operations. As part of providing quality comprehensive care the current medications, vitals, and PMH were reviewed in the paper chart. Assessment and Plan Assessment and Plan (1) Lumbar stenosis with neurogenic claudication: Assessment and Plan: 01/25/25 right L4/5 L5/S1 TFESI >50% improvement ongoing (2) Lumbar spondylosis: (3) Post laminectomy syndrome: (4) Lumbar radiculopathy: (5) Chronic prescription opiate use: Assessment and Plan: I feel these medications are improving the patient's quality of life and allow them to tolerate activities of daily living as well as participate in recreational activity.? The patient does not report intolerable side effects. The patient is NOT opioid naive and non-pharmacologic and non-opioid treatment has failed to significantly relieve the patient's pain and improve functionality. The patient has a diagnosis that is related to a somatic or visceral pain etiology. ? ?? I reviewed with the patient the potential risks and side effects with the use of? opioid medications including but not limited to respiratory depression,? sedation, and even . Within the last 12 months I have verified the patient has access to naloxone should? these effects occur. The patient was advised to let? their family know they had Naloxone in case they would need to administer? the medication. I advised the patient to avoid the use of any other? sedation substances including alcohol, THC, and benzodiazepines while? taking opioid medications due to the risk of compounding side effects and? detrimental outcomes. within the last 12 months I have reviewed the [employer], pain treatment agreement and urine drug screen.? ?? A drug screen was completed within the last year, and no aberrancies were noted regarding their use of controlled substances. The patient understands they are subject to the terms and conditions of the pain contract that they have signed. ? ?? I have checked an OARRS report on this patient today and there are no aberrancies noted in the prescribing history.? (6) Muscle spasm: Plan 74 year old male with chronic low back pain presents for evaluation, recently underwent right L4/5 L5/S1 TFESI with >50% improvement ongoing. Pt pending lumbar fusion with [facility] 03/30/25, per pt L4,5 fusion. As discussed today pt to DC percocet following surgery and allow NS team to manage post op pain until they clear him and he contact our office to resume his medication regimen. continue diclofenac, flexeril, and gabapentin as ordered. pt finds benefit without side effects to current medication regimen. at this time will f/u in 3 months, sooner if needed as discussed.
--- OUTSIDE RECORDS SUMMARY | 2025-02-10 08:08 | XMS_ITS | CCD ---
Author Organization [facility] CliniSysd Care Team Providers Care Manager Post Name Role Phone PHYSICIAN, DEFAULT Unavailable Unavailable [...] Primary Care Unavailable SOSA ., DR ROMERO Riuz Consulting Unavailable DEFRANCE, DR JULIO Consulting Unavailable [...] Barkley Unavailable MD Charity Barkley Attending Provider [phone] NON STAFF Primary Care Provider UnavailCARL Michaels [...] Attending Unavailable Sumanth Huang Primary Care Provider [phone] CARL SOSA Attending Unavailable DEFRANCE, SUMANTH T [...] Primary Care Unavailable SOSA, CARL Referring Unavailable DEFSUMANTH BIRD Primary Care Unavailable SOSA, CARL Referring Unavailable [...] DEFRANCE, SUMANTH Avina Referring Unavailable DEFRANCE, SUMANTH Avian Primary Care Unavailable MAYCO NOLEN Referring Unavailable DEFRANCE, SUMANTH Avina Primary Care Unavailable DEFRANCE, SUMANTH Avina Referring Unavailable DEFRANCE, SUMANTH Avina Primary Care Unavailable Sumanth Hill MD Primary Care Provider JOHNATHAN KRAUS Referring Unavailable NH MARTA, SUMANTH MALIK Primary Care Unavaila ble JOHNATHAN KRAUS Referring Unavailable DE MARTA, SUMANTH MALIK [facility] Chloe DELUCA, Rosales Leon Attending Unavailable Chloe DELUCA, Rosales Leon Attending Unavailable JOHNATHAN KRAUS Attending Unavailable JOHNATHAN KRAUS Referring Unavailable NH MARTA, SUMANTH MALIK [facility] Unavaila ble JOHNATHAN KRAUS Attending Unavailable LAKSHMIPATHY, NARENDRANATH Referring Unava ilable [facility], SUMANTH MALIK Primary [facility] Unavaila ble Medications Current Medications Medication Drug [...] acetaminophen (TYLENOL EXTRA STRENGTH) tablet 1,000 mg amoxicillin 500 mg oral capsule (6 sources) Penicillin-class Antibacterial Start: 02-25-2024 End: 08-11-2024 amoxicillin (AMOXIL) 500 mg capsule 02/25/2024 08/11/2024 Discontinued (Alternate therapy) aspirin 81 mg delayed release oral tablet (6 sources) Platelet Aggregation Inhibitor, Nonsteroidal Anti-inflammatory Drug [...] Active calcium carbonate 1250 mg oral tablet (5 sources) calcium carbonat e (OS-JARRETT 500) 500 [...] Day Active ciprofloxacin 500 mg oral tablet (6 sources) Quinolone Antimicrobial Start: 03-05-2017 take 1 tablet by mouth once daily ciprofloxacin HCl (CIPRO) 500 mg tablet Take 1 tablet by mouth once daily. Until catheter removed 10 tablet 03/05/2017 Active cyclobenzaprine hydrochloride 10 mg oral tablet (15 sources) Muscle Relaxant Start: 05-22-2024 Cyclobenzaprine Active MG PO May 22, 2024 12:00am Start: 04-23-2024 cyclobenzaprin e (FLEXERIL) 10 mg tablet 04/23/2024 Active diclofenac sodium 75 mg delayed release oral tablet (20 sources) Nonsteroidal Anti-inflammatory Drug Start: 01-29-2024 take 1 tablet by mouth twice daily Diclofenac Sodium 75 mg tablet,delayed release (DR/EC) Active 75 MG PO Twice daily January 29, 2024 12:00am Start: 01-19-2024 End: 12-27-2023 take 75 mg by mouth twice daily Diclofenac Sodium Acti ve 75 MG PO Twice daily January 29, 2024 12:00am diclofenac, EC, (VOLTAREN) 75 mg EC tablet two times a day. Active Diclofenac Activ e docusate sodium 100 mg oral capsule (6 sources) Start: 03-05-2017 take 1 capsule by mouth twice daily docusate sodium (COLACE) 100 mg capsule Take 1 capsule by mouth twice daily. To prevent constipation. If you develop diarrhea, please stop this medication. 20 capsule 03/05/2017 Active ELDERBERRY FRUIT (7 sources) ELDERBERRY FRUIT ORAL Take by mouth. [...] Discharge) ketorolac tromethamine 10 mg oral tablet (6 sources) Nonsteroidal Anti-inflammatory Drug, Cyclooxygenase Inhibitor Start: [...] (Alternate therapy) Start: 04-23-2024 methylPREDNISo lone (MEDROL, DEMOND,) 4 mg tablet Indications: Spondylolisthesis [...] Active oxybutynin chloride 5 mg oral tablet (6 sources) Cholinergic Muscarinic Antagonist Start: 03-06-2017 take [...] tablet 5 mg OXYCODONE HCL/ACETAMINOPHEN (PERCOCET ORAL) (6 sources) take 1 tablet by mouth once [...] 11/13/2023 Active sildenafil 20 mg oral tablet (6 sources) Phosphodiesterase 5 Inhibitor Start : 05-01 [...] tablet (20 sources) Opioid Agonist Start: 05-22-2024 End: 10-21-2024 Oxycodone-Acetamino phen 5-325 mg tablet Discontinued TAB PO May 22, 2024 12:00am October 21, 2024 8:59am take 1 tablet by mk th once [...] Discontinued docusate sodium 50 mg / sennosides, intermediate 8.6 mg oral tablet (1 source) Start: [...] Administer over 2-5 minutes. 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 Caller: self Patient Identified by Name and : Regan Green 1950 Reason for Call: General - Patient is calling would like to schedule his surgery. Is there any additional information the provider should know? Yes he has had two injection on 01/25/25 wants to know if that is going to be issue when he has his surgery. Last Office Visit: 01/09/2025 Next scheduled appointment: Visit date not found Best number to reach caller: [phone] and [phone] Best time to reach caller: anytime Is it OK to leave a detailed voice message? Yes Reyes Burkett RN 01/28/2025 1:18 PM Signed Per SY w/ MS on 01/09/25: It be my suggestion that we decompress and fuse L4-5 alone knowing that there is some uptake in the facet joints at L3-4. If back pain persists and not significant after surgery we can always come back later and approach the L3-4 level from a lateral approach. Shared with TB RNCC for scheduling upon return to office. Carrie Pratt, MIREILLE 02/01/2025 5:12 PM Signed Neuro SPINE CARE COORDINATION QUICK NOTE Called patient to discuss surgical scheduling for Saturday03/30/25. Patient did not answer but a detailed message was left on identified VM. I stated who I was and why calling. I offered surgical date and stated that I would also send MC message with this information. I also provided the office number for call back. Carrie Pratt RN Spine Pulp Drier Dolores Fuller 02/02/2025 8:25 AM Signed Patient called; rec'd message from nurse re: surgery date/scheduling; patient is requesting call back; [phone] Carrie Pratt RN 02/02/2025 9:38 AM Signed Neuro SPINE CARE COORDINATION QUICK NOTE Called patient to discuss surgical scheduling. Patient accepted surgical date of 03/30. We discussed pre op, post op, appointments, recovery and I answered all patient questions. Patient aware that post op appointments will be scheduled as VV and can be Antonia Avery or Dr. Kraus. Patient verbalized understanding of information provided by nurse. Patient instructed to call back should symptoms change or worsen. Patient has no other questions or concerns at this time. Patient advised to follow up with office with any additional issues. Carrie Pratt RN Spine Pulp Drier Allergies As of Date: 01/28/2025 (No Known Allergies) Date Reviewed: 11/25/2024 Reviewed by: John Gabriel MA - Fully Assessed Reason for Visit: Schedule Surgery [1330] Prescriptions as of 02/02/2025 - calcium carbonate (OS-JARRETT 500) 500 mg calcium (1,250 mg) tablet 1 (one) time each day at the same time - diclofenac, EC, (VOLTAREN) 75 mg EC tablet two times a day. - cyclobenzaprine (FLEXERIL) 10 mg tablet - gabapentin (NEURONTIN) 300 mg capsule three times a day. - ELDERBERRY FRUIT ORAL Take by mouth. - aspirin, enteric coated (ASPIRIN, ENTERIC COATED) 81 mg EC tablet Take 81 mg by mouth once daily. - OXYCODONE HCL/ACETAMINOPHEN (PERCOCET ORAL) Take 1 tablet by mouth once daily. - sildenafil (REVATIO) 20 mg tablet Take 2-5 tablets by mouth one hour prior to sexual activity. - oxybutynin (DITROPAN) 5 mg tablet Take 1 tablet by mouth every 8 hours as needed (for bladder spasms). - ketorolac (TORADOL) 10 mg tablet Take 1 tablet by mouth every 6 hours as needed for Pain. - docusate sodium (COLACE) 100 mg capsule Take 1 capsule by mouth twice daily. To prevent constipation. If you develop diarrhea, please stop this medication. - ciprofloxacin HCl (CIPRO) 500 mg tablet Take 1 tablet by mouth once daily. Until catheter removed Problem List As Of Date 01/28/2025 Noted Resolved Malignant neoplasm of prostate (HCC) [C61] 02/07/2017 Partial small bowel obstruction (HCC) [K56.600] 03/12/2017 03/12/2017 Rash/skin eruption [R21] 03/12/2017 UTI (urinary tract infection) [N39.0] 05/08/2017 Encounter Status:Closed by REYES STEINBERG on 01/28/25 Normal [facility] BONE 3 PHASEon 12-09-2024 NM BONE 3 [...] 188 mGy*cm CT Dose Reduction Employed: Yes Natural Resource Technician: LU Transcribe Date/Time: Dec 21 2024 9:33A Dictated by : CHARLENE WEBSTER MD This examination was interpreted and the report reviewed and electronically signed by: CHARLENE WEBSTER MD on Dec 09 2024 4:29PM EST This document has been addended by: CHARLENE WEBSTER MD on Dec 21 2024 9:35AM EST [id number] N [facility] NM BONE SPECTon 12-09-2024 NM BONE [...] 188 mGy*cm CT Dose Reduction Employed: Yes Natural Resource Technician: LU Transcribe Date/Time: Dec 21 2024 9:33A Dictated by : CHARLENE WEBSTER MD This examination was interpreted and the report reviewed and electronically signed by: CHARLENE WEBSTER MD on Dec 09 2024 4:29PM EST This document has been addended by: CHARLENE WEBSTER MD on Dec 21 2024 9:35AM EST [id number] Normal [facility] Bone 3 Phase Viewson * * *Final Report* * * DATE OF EXAM: Dec 09 2024 3:10PM PENDING SALE TO [facility] - [place] BONE 3 PHASE / PROCEDURE REASON: Abnormal [...] shoulders, sternoclavicular, left knee, wrists and feet. [facility] Provider, [facility] 12/09/2024 * * *Final Report* * * DATE OF EXAM: Dec 09 2024 3:10PM PENDING SALE TO [facility] - [place] BONE 3 PHASE / PROCEDURE REASON: Abnormal [...] and bilateral facet joints of L3-L4 level. Natural Resource Technician: LU Transcribe Date/Time: Dec 09 2024 4:16P Dictated by : CHARLENE WEBSTER MD This examination was interpreted and the report reviewed and electronically signed by: CHARLENE WEBSTER MD on Dec 09 2024 4:29PM [facility] No Panel Informationon 12-09 IMPRESSION: Degenerative uptake at the endplates of L4-5 level and bilateral facet joints of L3-L4 level. Natural Resource Technician: LU Transcribe Date/Time: Dec 09 2024 4:16P Dictated by : CHARLENE WEBSTER MD This examination was interpreted and the report reviewed and electronically signed by: CHARLENE WEBSTER MD on Dec 09 2024 4:29PM [facility] Radiology Study observation (narrative) [facility] No Panel InformationOrdered By: Ccf Provider on 12-09-2024 [facility] ic SPECT Boneon 12-09-2024 * * *Final [...] shoulders, sternoclavicular, left knee, wrists and feet. [facility] Provider, Jackson Hair - 12/09/2024 * * *Final Report* * [...] and bilateral facet joints of L3-L4 level. Natural Resource Technician: PSCB Transcribe Date/Time: Dec 09 2024 4:16P Dictated by : CHARLENE WEBSTER MD This examination was interpreted and the report reviewed and electronically signed by: CHARLENE WEBSTER MD on Dec 09 2024 4:29PM [facility] CNOVon 11-25-2024 CNOV Office Visit (SPNSMN ) REGAN GREEN ([id number]) 1950 M Date Time Provider Department 11/25/24 3:10 PM JOHNATHAN KRAUS SPELIAS During your visit today, we recorded the following information about you: Pulse Blood pressure Weight Height 80/minute 139/87 102.1 kg 1.753 m Johnathan Kraus MD 12/01/2024 7:07 AM Signed SPINE SURGERY NEW PATIENT PCP: Sumanth Huang MD REFERRING PROVIDER: Lisa Palm [address] [facility] [id number] 30 minutes Assessment/Plan No diagnosis found. Regan [...] exam Dec (more content not included)... Normal [facility] CBC AND AUTO DIFFon 08-25-20 24 ABSOLUTE BASOPHIL 0.1 X10E9/L Normal 0.0-0.2 [facility] Comment on above: Performed By: #### T NOE, 37281-9, CMP, CBCA #### [facility] ([id number]) [address], [facility] [address] [place] [address] ABSOLUTE NEUTROPHIL 3.7 X10E9/L Normal 1.5-6.6 [facility] Comment on above: Performed By: #### T NOE, 52132-4, CMP, CBCA #### [facility] ([id number]) [address], [address] [place] [address] Basophils/100 WBC (Bld) 1.1 % Normal [facility] Comment on above: Performed By: #### T NOE, 02241-3, CMP, CBCA #### [facility] ([id number]) [address], [address] [place] [address] Eosinophils (Bld) [#/Vol] 0.2 10*3/uL Normal 0.0-0.4 [facility] Comment on above: Performed By: #### T MACIER, 54112-8, CMP, CBCA #### [facility] ([id number]) [address], [facility] [address] [place] [address] Eosinophils/100 WBC (Bld) 2.6 % Normal [facility] Comment on above: Performed By: #### T HYR, 32784-0, CMP, CBCA #### [facility] ([id number]) [address], [address] [place] [address] Erythrocyte distribution width (RBC) [Ratio] 13.5 % Normal 11.5-15.0 [facility] Comment on above: Performed By: #### Morales LIU, 95891-9, CMP, CBCA #### [facility] ([id number]) [address], [address] [place] [address] Hematocrit (Bld) [Volume fraction] 44.7 % Normal 39-49 [facility] Comment on above: Performed By: #### Morales LIU, 00973-2, CMP, CBCA #### [facility] ([id number]) [address], [address] [place] [address] Hemoglobin (Bld) [Mass/Vol] 15.0 g/dL Normal 13.0-17.0 [facility] Comment on above: Performed By: #### Morales LIU, 78761-5, CMP, CBCA #### [facility] ([id number]) [address], [address] [place] [address] Lymphocytes (Bld) [#/Vol] 1.5 10*3/uL Normal 1.0-3.5 [facility] Comment on above: Performed By: #### Morales LIU, 33017-7, CMP, CBCA #### [facility] ([id number]) [address], [address] [place] [address] Lymphocytes/100 WBC (Bld) 23.5 % Normal [facility] Comment on above: Performed By: #### T NOE, 33430-9, CMP, CBCA #### [facility] ([id number]) [address], [address] [place] [address] MCH (RBC) [Entitic mass] 32.1 pg Normal 27-34 [facility] Comment on above: Performed By: #### T NOE, 92259-2, CMP, CBCA #### [facility] ([id number]) [address], [address] [place] [address] MCHC (RBC) [Mass/Vol] 33.6 g/dL Normal 32-36 [facility] Comment on above: Performed By: #### Morales LIU, 18485-5, CMP, CBCA #### [facility] ([id number]) [address], [address] [place] [address] MCV (RBC) [Entitic vol] 96 fL Normal 80-100 [facility] Comment on above: Performed By: #### Morales LIU, 72623-8, CMP, CBCA #### [facility] ([id number]) [address], [facility] [address] [place] [address] Monocytes (Bld) [#/Vol] 0.8 10*3/uL Normal 0-0.9 [facility] Comment on above: Performed By: #### Morales LIU, 70725-2, CMP, CBCA #### [facility] ([id number]) [address], [address] [place] [address] Monocytes/100 WBC (Bld) 13.1 % Normal [facility] Comment on above: Performed By: #### Morales LIU, 50480-4, CMP, CBCA #### [facility] ([id number]) [address], [address] [place] [address] Neutrophils/100 WBC (Bld) 59.7 % Normal [facility] Comment on above: Performed By: #### Morales LIU, 85036-8, CMP, CBCA #### [facility] ([id number]) [address] [place] [address] Platelet mean volume (Bld) [Entitic vol] 7.5 fL Normal 7-12 [facility] Comment on above: Performed By: #### T NOE, 00228-0, CMP, CBCA #### [facility] ([id number]) [address], [address] [place] [address] Platelets (Bld) [#/Vol] 246 10*3/uL Normal 150-450 [facility] Comment on above: Performed By: #### T NOE, 52580-1, CMP, CBCA #### [facility] ([id number]) [address], [address] [place] [address] RBC COUNT 4.68 X10E12/L Normal 4.10-5.70 [facility] Comment on above: Performed By: #### Morales LIU, 68915-6, CMP, CBCA #### [facility] ([id number]) [address] [address] WBC (Bld) [#/Vol] 6.2 10*3/uL Normal 4.0-11.0 [facility] Comment on above: Performed By: #### Morales LIU, 92709-8, CMP, CBCA #### [facility] ([id number]) [address], [facility] [address] [place] [address] COMPREHENSIVE METABOLIC PANE Sandoval 08-25-2024 Albumin [Mass/Vol] 4.6 g/dL Normal 3.2-5.3 [facility] Comment on above: Performed By: #### T NOE, 12036-1, CMP, CBCA #### [facility] ([id number]) [address], [facility] [address] [place] [address] ALP [Catalytic activity/Vol] 77 U/L Normal 39-130 [facility] Comment on above: Performed By: #### T MACIER, 81351-3, CMP, CBCA #### [facility] ([id number]) [address], [facility] [address] [place] [address] ALT [Catalytic activity/Vol] 36 U/L Normal 0-40 [facility] Comment on above: Performed By: #### T MACIER, 75022-0, CMP, CBCA #### [facility] ([id number]) [address], [address] [place] [address] Anion gap [Moles/Vol] 11 mmol/L Normal 5-15 [facility] Comment on above: Performed By: #### T NOE, 47008-6, CMP, CBCA #### [facility] ([id number]) [address], [address] [place] [address] AST [Catalytic activity/Vol] 31 U/L Normal 0-41 [facility] Comment on above: Performed By: #### T NOE, 86782-1, CMP, CBCA #### [facility] ([id number]) [address], [address] [place] [address] Bilirubin [Mass/Vol] 0.5 mg/dL Normal 0.3-1.2 [facility] Comment on above: Performed By: #### Morales LIU, 36441-0, CMP, CBCA #### [facility] ([id number]) [address], [address] [place] [address] Calcium [Mass/Vol] 9.3 mg/dL Normal 8.5-10.5 [facility] Comment on above: Performed By: #### T NOE, 93069-7, CMP, CBCA #### [facility] ([id number]) [address], [address] [place] [address] Chloride [Moles/Vol] 104 mmol/L Normal 98-109 [facility] Comment on above: Performed By: #### T MACIER, 61886-6, CMP, CBCA #### [facility] ([id number]) [address] [place] [address] CO2 [Moles/Vol] 27 mmol/L Normal 22-32 [facility] Comment on above: Performed By: #### T MACIER, 33420-7, CMP, CBCA #### [facility] ([id number]) [address] [place] [address] Creatinine [Mass/Vol] 0.68 mg/dL Normal 0.60-1.30 [facility] Comment on above: Result Comment: METH OD TRACEABLE TO IDMS STANDARD Performed By: #### T NOE, 16566-8, CMP, CBCA #### [facility] ([id number]) [address] [place] [address] eGFR (CKD-EPI) NON-RACE DEPENDENT >90 Normal >59 [facility] Comment on above: Result Comment: Reported eGFR is based on the CKD-EPI 2020 equation that does not use a race coefficient. Performed By: #### Morales LIU 51471-8, CMP, CBCA #### [facility] ([id number]) [address] [place] [address] Glucose [Mass/Vol] 84 mg/dL Normal 65-99 [facility] Comment on above: Performed By: #### Morales LIU, 83305-1, CMP, CBCA #### [facility] ([id number]) [address] [place] [address] Potassium [Moles/Vol] 5.0 mmol/L Normal 3.5-5.0 [facility] Comment on above: Performed By: #### Moraels LIU, 89680-8, CMP, CBCA #### [facility] ([id number]) [address] [place] [address] Protein [Mass/Vol] 7.2 g/dL Normal 6.0-8.0 [facility] Comment on above: Performed By: #### Morales LIU, 15655-4, CMP, CBCA #### [facility] ([id number]) [address] [place] [address] Sodium [Moles/Vol] 142 mmol/L Normal 134-146 [facility] Comment on above: Performed By: #### Morales LIU, 95007-8, CMP, CBCA #### [facility] ([id number]) [address] [place] [address] Urea nitrogen [Mass/Vol] 15 mg/dL Normal 5-27 [facility] Comment on above: Performed By: #### Morales LIU, 77458-7, CMP, CBCA #### [facility] ([id number]) [address] [place] [address] Lipid 1996 panelon 4 Cholesterol [Mass/Vol] 191 mg/dL Normal 150-200 [facility] Comment on above: Performed By: #### Morales LIU, 56058-9, NGOC CBCSarah #### [facility] ([id number]) [address] [place] [address] Cholesterol in HDL [Mass/Vol] 54 mg/dL Normal >39 [facility] Comment on above: Result Comment: HDL <40 mg/dL - High Risk HDL > or = 40mg/dL- Desirable HDL >60 mg/dL - Negative Risk Performed By: #### Morales LIU, 94207-5, CMP, CBCA #### [facility] ([id number]) [address] [place] [address] Cholesterol in LDL [Mass/Vol] 127 mg/dL Normal <130 [facility] Comment on above: Result Comment: LDL <100 mg/dL - Desirable LDL >160 mg/dL - High Risk Performed By: #### Morales LIU, 86916-5, CMP, CBCA #### [facility] ([id number]) [address] [place] [address] Cholesterol in VLDL [Mass/Vol] 10 mg/dL Normal 0-30 [facility] Comment on above: Performed By: #### Morales LIU 71396-8, CMP, CBCA #### [facility] ([id number]) [address] [place] [address] CHOLESTEROL:HDL 3.5 Normal 1.0-5.0 [facility] Comment on above: Performed By: #### Morales LIU 56799-5, CMP, CBCA #### [facility] ([id number]) [address] [place] [address] Triglyceride [Mass/Vol] 50 mg/dL Normal 27-150 [facility] Comment on above: Performed By: #### Morales LIU 40114-1, CMP, CBCA #### [facility] ([id number]) [address], [facility] [address] [place] [address] THYROID PROFILEon 08-25-2024 Free T4 [Mass/Vol] 0.93 ng/dL Normal 0.61-1.60 [facility] Comment on above: Performed By: #### Morales LIU, 72308-8, CMP, CBCA #### [facility] ([id number]) [address], [facility] [address] [place] [address] TSH 6.45 uIU/mL High 0.49-4.67 [facility] Comment on above: Performed By: #### Morales LIU, 87018-0, CMP, CBCA #### [facility] ([id number]) [address] [address] [place] [address] Prostate specific Ag [Mass/V ol]on 04-28-2024 PROSTATIC SPEC ANT <0.01 Normal 0.00-4.00 [facility] Comment on above: Result Comment: The method used for this test is Deejay Whitman DXI chemiluminescent immunoassay. Values obtained by different assay methods cannot be used interchangeably. Performed By: #### 2 857-1 #### [facility] ([id number]) [address] [facility] [place] [address] XR Lumbar spine 2 or 3 Views [...] Juarez Granados MD on 04/24/2024 2:36 PM [facility] Juarez Granados MD - 04/24/2024 Lumbosacral spine: 04/23/2024 10:15 [...] Juarez Granados MD on 04/24/2024 2:36 PM [facility] XR Lumbar spine 2 or 3 Views Ordered By: Juarez Granados on 04-24-2024 [facility] Work Phone: XR SPINE LUMBAR 2 OR [...] MD on 04/24/2024 2:[address] [facility] XR Lumbar spine 2 or 3 Views on 04-23-2024 Radiology Study observation (narrative) [facility] MR LUMBAR SPINE WO CONTon MR LUMBAR [...] Johnathan Matute on 04/22/2024 2:10 PM Normal [facility] XR SPINE LUMB BENDING ONLY 2 [...] MD on 02/13/2024 2:[address] [facility] BASIC METABOLIC PANLon 12-27 Anion gap [Moles/Vol] 8 mmol/L Normal 5-15 [facility] Comment on above: Performed By: #### C BC, BMP, , 32283-9 ####[facility] ([id number])[address], [address] [address] Calcium [Mass/Vol] 9.2 mg/dL Normal 8.5-10.5 [facility] Comment on above: Performed By: #### C BC, BMP, , 97633-8 ####[facility] ([id number])[address], [address] [place] [address] Chloride [Moles/Vol] 103 mmol/L Normal 98-109 [facility] Comment on above: Performed By: #### C BC, BMP, , 01935-2 ####[facility] ([id number])[address], [address] [address] CO2 [Moles/Vol] 28 mmol/L Normal 22-32 [facility] Comment on above: Performed By: #### C BC, BMP, , 57291-7 ####[facility] ([id number])[address], [address] [place] [address] Creatinine [Mass/Vol] 0.77 mg/dL Normal 0.60-1.30 [facility] Comment on above: Result Comment: METH OD TRACEABLE TO IDMS STANDARD Performed By: #### C BC, BMP, , 35978-0 ####[facility] ([id number])[address] [address], [place] [address] eGFR (CKD-EPI) NON-RACE DEPENDENT >90 Normal >59 [facility] Comment on above: Result Comment: Reported eGFR is based on the CKD-EPI 2020 equation that does not use a race coefficient. Performed By: #### C BC, BMP, , 00070-8 ####[facility] ([id number])[address] [address] [address] Glucose [Mass/Vol] 110 mg/dL High 65-99 [facility] Comment on above: Performed By: #### Sujey PÉREZ, BMP, , 58614-8 ####[facility] ([id number])[address] [facility] [address], [place] [address] Potassium [Moles/Vol] 4.3 mmol/L Normal 3.5-5.0 [facility] Comment on above: Performed By: #### Sujey PÉREZ, BMP, , 47092-4 ####[facility] ([id number])[address] [facility] [address], [place] [address] Sodium [Moles/Vol] 139 mmol/L Normal 134-146 [facility] Comment on above: Performed By: #### Sujey PÉREZ, BMP, , 90316-4 ####[facility] ([id number])[address] [address] Urea nitrogen [Mass/Vol] 14 mg/dL Normal 5-27 [facility] Comment on above: Performed By: #### Sujey BC, BMP, , 44719-6 ####[facility] ([id number])[address] [facility] [address] [address] Basic Metabolic Panelon 02-2 Anion gap [Moles/Vol] 8 mmol/L 5 - 15 mmol/L [facility] Calcium [Mass/Vol] 9.2 mg/dL 8.5 - 10. 5 mg/dL [facility] Chloride [Moles/Vol] 103 mmol/L 98 - 10 9 mmol/L [facility] CO2 [Moles/Vol] 28 mmol/L 22 - 32 mmol/L [facility] Creatinine [Mass/Vol] 0.77 mg/dL 0.60 - 1.30 mg/dL [facility] Comment on above: METHOD TRACEABLE TO [facility] STANDARD eGFR (CKD-EPI)non-race dependent - PINF [facility] Comment on above: Reported eGFR is based on the CKD-EPI 2020 equation that does not use a race coefficient. Glucose [Mass/Vol] 110 mg/dL High 65 - 99 mg/dL [facility] Interpretation and review of laboratory results Abnormal [facility] Potassium [Moles/Vol] 4.3 mmol/L 3.5 - 5.0 mmol/L [facility] Sodium [Moles/Vol] 139 mmol/L 134 - 146 mmol/L [facility] Urea nitrogen [Mass/Vol] 14 mg/dL 5 - 27 mg/dL [facility] CBC without diffon Erythrocyte distribution width (RBC) [Ratio] 13.3 % 11.5 - 15.0 % [facility] Hematocrit (Bld) [Volume fraction] 36.3 % Low 39 - 49 % [facility] Hemoglobin (Bld) [Mass/Vol] 12.4 g/dL Low 13.0 - 17.0 g/dL [facility] Interpretation and review of laboratory results Abnormal [facility] MCH (RBC) [Entitic mass] 30.2 pg 27 - 34 pg [facility] MCHC (RBC) [Mass/Vol] 34.2 g/dL 32 - 36 g/dL [facility] MCV (RBC) [Entitic vol] 88 fL 80 - 100 fL [facility] Platelet mean volume (Bld) [Entitic vol] 7.2 fL 7 - 12 fL [facility] Platelets (Bld) [#/Vol] 243 10*3/uL [facility] RBC (Bld) [#/Vol] 4.12 10*6/uL [facility] WBC corrected for nucl RBC Auto (Bld) [#/Vol] 11.6 High [facility] COMPLETE BLOOD COUNTon 12-27 Erythrocyte distribution width (RBC) [Ratio] 13.3 % Normal 11.5-15.0 [facility] Comment on above: Performed By: #### C BC, BMP, , 58227-3 ####[facility] ([id number])[address], [address], [place] [address] Hematocrit (Bld) [Volume fraction] 36.3 % Low 39-49 [facility] Comment on above: Performed By: #### C BC, BMP, , 58419-2 ####[facility] ([id number])[address], [address] [address] Hemoglobin (Bld) [Mass/Vol] 12.4 g/dL Low 13.0-17.0 [facility] Comment on above: Performed By: #### Sujey BC, BMP, , 55743-9 ####[facility] ([id number])[address], [address] [address] MCH (RBC) [Entitic mass] 30.2 pg Normal 27-34 [facility] Comment on above: Performed By: #### Sujey PÉREZ, BMP, , 56856-1 ####[facility] ([id number])[address], [address], [place] [address] MCHC (RBC) [Mass/Vol] 34.2 g/dL Normal 32-36 [facility] Comment on above: Performed By: #### Sujey BC, BMP, , 15191-9 ####[facility] ([id number])[address], [address] [place] [address] MCV (RBC) [Entitic vol] 88 fL Normal 80-100 [facility] Comment on above: Performed By: #### C BC, BMP, , 38215-6 ####[facility] ([id number])[address], [address] [address] Platelet mean volume (Bld) [Entitic vol] 7.2 fL Normal 7-12 [facility] Comment on above: Performed By: #### Sujey PÉREZ, [facility], , 82121-2 ####[facility] ([id number])[address], [address] [place] [address] Platelets (Bld) [#/Vol] 243 10*3/uL Normal 150-450 [facility] Comment on above: Performed By: #### Sujey PÉREZ, [facility], , 41115-1 ####[facility] ([id number])[address], [address] [address] RBC COUNT 4.12 X10E12/L Normal 4.10-5.70 [facility] Comment on above: Performed By: #### Sujey PÉREZ, [facility], , 05167-9 ####[facility] ([id number])[address], [address] [place] [address] WBC (Bld) [#/Vol] 11.6 10*3/uL High 4.0-11.0 [facility] Comment on above: Performed By: #### Sujey PÉREZ, [facility], , 10887-9 ####[facility] ([id number])[address], [address] [place] [address] ECG 12 leadon 12-27-2023 TRACEMASTERVUE [facility] Glucose Glucometer (BldC) [M ass/Vol]on 12-27-2023 Glucose [Mass/Vol] 98 mg/dL 65 - 99 mg/dL [facility] Glucose [Mass/Vol] 98 mg/dL Normal 65-99 [facility] MAGNESIUMon 12-27-2023 Magnesium [Mass/Vol] 1.9 mg/dL Normal 1.8-2.6 [facility] Comment on above: Performed By: #### TIP CADET, , 79035-9 ####[facility] ([id number])[address], [address] [place] [address] Magnesiumon 12-27-2023 Magnesium [Mass/Vol] 1.9 mg/dL 1.8 - 2 .6 mg/dL [facility] No Panel Informationon 12-27 [facility] TROPONIN Ion 12-27-2023 Troponin I.cardiac [Mass/Vol] ng/mL Normal 0.00-0.04 [facility] Comment on above: Performed By: #### TIP CADET, , 68302-9 ####[facility] ([id number])[address], [address] [place] [address] Troponin Ion 12-27-2023 Troponin I.cardiac [Mass/Vol] ng/mL 0.00 - 0.04 ng/mL [facility] Troponin I.cardiac [Mass/Vol ]on 12-27-2023 [facility] BASIC METABOLIC PANLon 12-26 Anion gap [Moles/Vol] 9 mmol/L Normal 5-15 [facility] Comment on above: Performed By: #### Sujey PÉREZ BMP #### [facility] ([id number]) [address], [address] [place] [address] Calcium [Mass/Vol] 9.4 mg/dL Normal 8.5-10.5 [facility] Comment on above: Performed By: #### Sujey PÉREZ, BMP #### [facility] ([id number]) [address], [address] [place] [address] Chloride [Moles/Vol] 106 mmol/L Normal 98-109 [facility] Comment on above: Performed By: #### Sujey PÉREZ, BMP #### [facility] ([id number]) [address], [address] [place] [address] CO2 [Moles/Vol] 25 mmol/L Normal 22-32 [facility] Comment on above: Performed By: #### Sujey PÉREZ, BMP #### [facility] ([id number]) [address], [facility] [address] [place] [address] Creatinine [Mass/Vol] 0.63 mg/dL Normal 0.60-1.30 [facility] Comment on above: Result Comment: METH OD TRACEABLE TO IDMS STANDARD Performed By: #### Sujey PÉREZ, BMP #### [facility] ([id number]) [address] [facility] [address] [place] [address] eGFR (CKD-EPI) NON-RACE DEPENDENT >90 Normal >59 [facility] Comment on above: Result Comment: Reported eGFR is based on the CKD-EPI 2020 equation that does not use a race coefficient. Performed By: #### Sujey PÉREZ, BMP #### [facility] ([id number]) [address], [address] [place] [address] Glucose [Mass/Vol] 140 mg/dL High 65-99 [facility] Comment on above: Performed By: #### Sujey PÉREZ, BMP #### [facility] ([id number]) [address], [address] [place] [address] Potassium [Moles/Vol] 4.6 mmol/L Normal 3.5-5.0 [facility] Comment on above: Performed By: #### Sujey PÉREZ, BMP #### [facility] ([id number]) [address], [address] [place] [address] Sodium [Moles/Vol] 140 mmol/L Normal 134-146 [facility] Comment on above: Performed By: #### Sujey PÉREZ, BMP #### [facility] ([id number]) [address], [address] [place] [address] Urea nitrogen [Mass/Vol] 17 mg/dL Normal 5-27 [facility] Comment on above: Performed By: #### C BC, BMP #### [facility] ([id number]) [address] [facility], [address] [place] [address] Basic Metabolic Panelon 12-06 Anion gap [Moles/Vol] 9 mmol/L 5 - 15 mmol/L [facility] Calcium [Mass/Vol] 9.4 mg/dL 8.5 - 10. 5 mg/dL [facility] Chloride [Moles/Vol] 106 mmol/L 98 - 10 9 mmol/L [facility] CO2 [Moles/Vol] 25 mmol/L 22 - 32 mmol/L [facility] Creatinine [Mass/Vol] 0.63 mg/dL 0.60 - 1.30 mg/dL [facility] Comment on above: METHOD TRACEABLE TO [employer]WV STANDARD eGFR (CKD-EPI)non-race dependent - PINF [facility] Comment on above: Reported eGFR is based on the CKD-EPI 2020 equation that does not use a race coefficient. Glucose [Mass/Vol] 140 mg/dL High 65 - 99 mg/dL [facility] Interpretation and review of laboratory results Abnormal [facility] Potassium [Moles/Vol] 4.6 mmol/L 3.5 - 5.0 mmol/L [facility] Sodium [Moles/Vol] 140 mmol/L 134 - 146 mmol/L [facility] Urea nitrogen [Mass/Vol] 17 mg/dL 5 - 27 mg/dL [facility] CBC without diffon Erythrocyte distribution width (RBC) [Ratio] 13.5 % 11.5 - 15.0 % [facility] Hematocrit (Bld) [Volume fraction] 37.5 % Low 39 - 49 % [facility] Hemoglobin (Bld) [Mass/Vol] 12.7 g/dL Low 13.0 - 17.0 g/dL [facility] Interpretation and review of laboratory results Abnormal [facility] MCH (RBC) [Entitic mass] 30.0 pg 27 - 34 pg [facility] MCHC (RBC) [Mass/Vol] 33.9 g/dL 32 - 36 g/dL [facility] MCV (RBC) [Entitic vol] 89 fL 80 - 100 fL [facility] Platelet mean volume (Bld) [Entitic vol] 7.2 fL 7 - 12 fL [facility] Platelets (Bld) [#/Vol] 264 10*3/uL [facility] RBC (Bld) [#/Vol] 4.23 10*6/uL [facility] WBC corrected for nucl RBC Auto (Bld) [#/Vol] 12.6 High [facility] COMPLETE BLOOD COUNTon 12-26 Erythrocyte distribution width (RBC) [Ratio] 13.5 % Normal 11.5-15.0 [facility] Comment on above: Performed By: #### C ELISA, BMP #### [facility] ([id number]) [address], [address] [place] [address] Hematocrit (Bld) [Volume fraction] 37.5 % Low 39-49 [facility] Comment on above: Performed By: #### Sujey PÉREZ, BMP #### [facility] ([id number]) [address], [address] [place] [address] Hemoglobin (Bld) [Mass/Vol] 12.7 g/dL Low 13.0-17.0 [facility] Comment on above: Performed By: #### C ELISA, BMP #### [facility] ([id number]) [address], [address] [place] [address] MCH (RBC) [Entitic mass] 30.0 pg Normal 27-34 [facility] Comment on above: Performed By: #### C ELISA, BMP #### [facility] ([id number]) [address] [address] MCHC (RBC) [Mass/Vol] 33.9 g/dL Normal 32-36 [facility] Comment on above: Performed By: #### C ELISA, BMP #### [facility] ([id number]) [address], [address] [place] [address] MCV (RBC) [Entitic vol] 89 fL Normal 80-100 [facility] Comment on above: Performed By: #### Sujey PÉREZ, BMP #### [facility] ([id number]) [address], [address] [place] [address] Platelet mean volume (Bld) [Entitic vol] 7.2 fL Normal 7-12 [facility] Comment on above: Performed By: #### Sujey PÉREZ, BMP #### [facility] ([id number]) [address], [facility] [address] [place] [address] Platelets (Bld) [#/Vol] 264 10*3/uL Normal 150-450 [facility] Comment on above: Performed By: #### Sujey PÉREZ, BMP #### [facility] ([id number]) [address], [address] [place] [address] RBC COUNT 4.23 X10E12/L Normal 4.10-5.70 [facility] Comment on above: Performed By: #### Sujey PÉREZ, BMP #### [facility] ([id number]) [address], [address] [address] WBC (Bld) [#/Vol] 12.6 10*3/uL High 4.0-11.0 [facility] Comment on above: Performed By: #### Sujey PÉREZ, BMP #### [facility] ([id number]) [address], [address] [place] [address] ABO Rh [place]pe[place] 12-25-2023 ABO AB [facility] [...] Avelar on 12/25/2023 4:[address] [facility] RF Guidance for injection of Spine [...] José Miguel Avelar on 12/25/2023 4:51 PM [facility] Radiology Study observation (narrative) [facility] RF Guidance for injection of Spine facet jointOrdered By: José Miguel Avelar on 12-25-2023 [facility] Work Phone: Bacteria identified Cx Nom ( U)on 12-21-2023 Service comment (Unsp spec) [Interp] <10,000 ORGANISMS/ML NORMAL URO GENITAL CORINA [facility] ABO Rh Repeaton 12-20-2023 ABO AB [facility] Rh Nom (Bld) Positive [facility] APTTon 12-20-2023 aPTT Coag (PPP) [Time] 31 s [facility] BASIC METABOLIC PANLon 12-20 Anion gap [Moles/Vol] 13 mmol/L Normal 5-15 [facility] Comment on above: Performed By: #### C BCA, PINR, 51714-5, BMP #### [facility] ([id number]) [address], [address] [place] [address] Calcium [Mass/Vol] 10.1 mg/dL Normal 8.5-10.5 [facility] Comment on above: Performed By: #### C BCA, PINR, 15798-2, BMP #### [facility] ([id number]) [address], [address] [place] [address] Chloride [Moles/Vol] 103 mmol/L Normal 98-109 [facility] Comment on above: Performed By: #### C BCA, PINR, 52295-0, BMP #### [facility] ([id number]) [address], [address] [place] [address] CO2 [Moles/Vol] 25 mmol/L Normal 22-32 [facility] Comment on above: Performed By: #### C BCA, PINR, 07697-5, BMP #### [facility] ([id number]) [address], [address] [place] [address] Creatinine [Mass/Vol] 0.76 mg/dL Normal 0.60-1.30 [facility] Comment on above: Result Comment: METH OD TRACEABLE TO IDMS STANDARD Performed By: #### C BCA, PINR, 75629-0, BMP #### [facility] ([id number]) [address], [address] [place] [address] eGFR (CKD-EPI) NON-RACE DEPENDENT >90 Normal >59 [facility] Comment on above: Result Comment: Reported eGFR is based on the CKD-EPI 2020 equation that does not use a race coefficient. Performed By: #### C BCA, PINR, 35812-3, BMP #### [facility] ([id number]) [address], [address] [place] [address] Glucose [Mass/Vol] 85 mg/dL Normal 65-99 [facility] Comment on above: Performed By: #### C BCA, PINR, 17968-3, BMP #### [facility] ([id number]) [address], [address] [place] [address] Potassium [Moles/Vol] 5.0 mmol/L Normal 3.5-5.0 [facility] Comment on above: Result Comment: SPEC IMEN HEMOLYZED, RESULTS INCREASED MODERATELY HEMOLYZED Performed By: #### C BCA, PINR, 28444-3, BMP #### [facility] ([id number]) [address], [address] [place] [address] Sodium [Moles/Vol] 141 mmol/L Normal 134-146 [facility] Comment on above: Performed By: #### C BCA, PINR, 79049-3, BMP #### [facility] ([id number]) [address], [address] [place] [address] Urea nitrogen [Mass/Vol] 20 mg/dL Normal 5-27 [facility] Comment on above: Performed By: #### C BCA, PINR, 40981-7, BMP #### [facility] ([id number]) [address], [address] [place] [address] Basic Metabolic Panelon 12-05 Anion gap [Moles/Vol] 13 mmol/L 5 - 15 mmol/L [facility] Calcium [Mass/Vol] 10.1 mg/dL 8.5 - 10. 5 mg/dL [facility] Chloride [Moles/Vol] 103 mmol/L 98 - 10 9 mmol/L [facility] CO2 [Moles/Vol] 25 mmol/L 22 - 32 mmol/L [facility] Creatinine [Mass/Vol] 0.76 mg/dL 0.60 - 1.30 mg/dL [facility] Comment on above: METHOD TRACEABLE TO IDWV STANDARD eGFR (CKD-EPI)non-race dependent - PINF [facility] Comment on above: Reported eGFR is based on the CKD-EPI 2021 equation that does not use a race coefficient. Glucose [Mass/Vol] 85 mg/dL 65 - 99 mg/dL [facility] Potassium [Moles/Vol] 5.0 mmol/L 3.5 - 5.0 mmol/L [facility] Comment on above: SPECIMEN HEMOLYZED, RESULTS INCREASED MODERATELY HEMOLYZED Sodium [Moles/Vol] 141 mmol/L 134 - 146 mmol/L [facility] Urea nitrogen [Mass/Vol] 20 mg/dL 5 - 27 mg/dL [facility] CBC AND AUTO DIFFon 12-20-19 24 ABSOLUTE BASOPHIL 0.1 X10E9/L Normal 0.0-0.2 [facility] Comment on above: Performed By: #### BUCKY Rm BCA, 31285-9, BMP #### [facility] ([id number]) [address], [address] [place] [address] ABSOLUTE NEUTROPHIL 4.4 X10E9/L Normal 1.5-6.6 [facility] Comment on above: Performed By: #### Sujey LOWRY PINR, 98493-2, BMP #### [facility] ([id number]) [address], [address] [place] [address] Basophils/100 WBC (Bld) 0.9 % Normal [facility] Comment on above: Performed By: #### Sujey LOWRY PINR, 21955-5, BMP #### [facility] ([id number]) [address], [address] [place] [address] Eosinophils (Bld) [#/Vol] 0.2 10*3/uL Normal 0.0-0.4 [facility] Comment on above: Performed By: #### Sujey LOWRY PINR, 54840-9, BMP #### [facility] ([id number]) [address], [address] [place] [address] Eosinophils/100 WBC (Bld) 2.6 % Normal [facility] Comment on above: Performed By: #### Sujey LOWRY PINR, 32272-0, BMP #### [facility] ([id number]) [address], [address] [place] [address] Erythrocyte distribution width (RBC) [Ratio] 13.6 % Normal 11.5-15.0 [facility] Comment on above: Performed By: #### C ALEN PINR, 53832-1, BMP #### [facility] ([id number]) [address], [address] [place] [address] Hematocrit (Bld) [Volume fraction] 45.1 % Normal 39-49 [facility] Comment on above: Performed By: #### C ALEN PINR, 13534-3, BMP #### [facility] ([id number]) [address], [address] [place] [address] Hemoglobin (Bld) [Mass/Vol] 15.5 g/dL Normal 13.0-17.0 [facility] Comment on above: Performed By: #### C ALEN PINR, 10164-4, BMP #### [facility] ([id number]) [address], [address] [place] [address] Lymphocytes (Bld) [#/Vol] 1.5 10*3/uL Normal 1.0-3.5 [facility] Comment on above: Performed By: #### C ALEN PINR, 02751-7, BMP #### [facility] ([id number]) [address], [address] [place] [address] Lymphocytes/100 WBC (Bld) 21.7 % Normal [facility] Comment on above: Performed By: #### C ALEN PINR, 71721-3, BMP #### [facility] ([id number]) [address], [address] [place] [address] MCH (RBC) [Entitic mass] 30.2 pg Normal 27-34 [facility] Comment on above: Performed By: #### C BCA, PINR, 39183-5, BMP #### [facility] ([id number]) [address], [address] [place] [address] MCHC (RBC) [Mass/Vol] 34.4 g/dL Normal 32-36 [facility] Comment on above: Performed By: #### C ALEN, PINR, 18795-0, BMP #### [facility] ([id number]) [address] [place] [address] MCV (RBC) [Entitic vol] 88 fL Normal 80-100 [facility] Comment on above: Performed By: #### C ALEN, PINR, 69365-3, BMP #### [facility] ([id number]) [address], [address] [place] [address] Monocytes (Bld) [#/Vol] 1.0 10*3/uL High 0-0.9 [facility] Comment on above: Performed By: #### C BCA, PINR, 81598-0, BMP #### [facility] ([id number]) [address], [address] [place] [address] Monocytes/100 WBC (Bld) 13.6 % Normal [facility] Comment on above: Performed By: #### Sujey LOWRY, PINR, 68164-0, BMP #### [facility] ([id number]) [address], [address] [place] [address] Neutrophils/100 WBC (Bld) 61.2 % Normal [facility] Comment on above: Performed By: #### C BCA, PINR, 76217-0, BMP #### [facility] ([id number]) [address], [address] [place] [address] Platelet mean volume (Bld) [Entitic vol] 7.8 fL Normal 7-12 [facility] Comment on above: Performed By: #### Sujey BCA, PINR, 80014-3, BMP #### [facility] ([id number]) [address], [address] [place] [address] Platelets (Bld) [#/Vol] 269 10*3/uL Normal 150-450 [facility] Comment on above: Performed By: #### Sujey LOWRY, PINR, 23234-0, BMP #### [facility] ([id number]) [address], [address] [place] [address] RBC COUNT 5.12 X10E12/L Normal 4.10-5.70 [facility] Comment on above: Performed By: #### Sujey LOWRY, PINR, 71433-1, BMP #### [facility] ([id number]) [address], [address] [place] [address] WBC (Bld) [#/Vol] 7.1 10*3/uL Normal 4.0-11.0 [facility] Comment on above: Performed By: #### Sujey LOWRY, PINR, 40872-6, BMP #### [facility] ([id number]) [address], [address] [place] [address] CBC auto differentialon 12-05 Basophils (Bld) [#/Vol] 0.1 10*3/uL [facility] Basophils/100 WBC (Bld) 0.9 % [facility] Eosinophils (Bld) [#/Vol] 0.2 10*3/uL [facility] Eosinophils/100 WBC (Bld) 2.6 % [facility] Erythrocyte distribution width (RBC) [Ratio] 13.6 % 11.5 - 15.0 % [facility] Hematocrit (Bld) [Volume fraction] 45.1 % 39 - 49 % [facility] Hemoglobin (Bld) [Mass/Vol] 15.5 g/dL 13.0 - 17.0 g/dL [facility] Interpretation and review of laboratory results Abnormal [facility] Lymphocytes (Bld) [#/Vol] 1.5 10*3/uL [facility] Lymphocytes/100 WBC (Bld) 21.7 % [facility] MCH (RBC) [Entitic mass] 30.2 pg 27 - 34 pg [facility] MCHC (RBC) [Mass/Vol] 34.4 g/dL 32 - 36 g/dL [facility] MCV (RBC) [Entitic vol] 88 fL 80 - 100 fL [facility] Monocytes (Bld) [#/Vol] 1.0 10*3/uL High [facility] Monocytes/100 WBC (Bld) 13.6 % [facility] Neutrophils (Bld) [#/Vol] 4.4 10*3/uL [facility] Neutrophils/100 WBC (Bld) 61.2 % [facility] Platelet mean volume (Bld) [Entitic vol] 7.8 fL 7 - 12 fL [facility] Platelets (Bld) [#/Vol] 269 10*3/uL [facility] RBC (Bld) [#/Vol] 5.12 10*6/uL [facility] WBC corrected for nucl RBC Auto (Bld) [#/Vol] 7.1 [facility] No Panel Informationon 12-20 [facility] PROTIME AND INRon 12-20-2023 INR Coag (PPP) [Relative time] 1.0 {INR} Normal 0.8-1.1 [facility] Comment on above: Performed By: #### BUCKY Rm BCA, 31310-2, BMP #### [facility] ([id number]) [address], [address] [place] [address] PT Coag (PPP) [Time] 11.3 s Normal 9.8-13.2 [facility] Comment on above: Performed By: #### BUCKY Rm BCA, 38870-4, BMP #### [facility] ([id number]) [address], [address] [place] [address] Protime & INRon 12-20-2023 INR Coag (PPP) [Relative time] 1.0 {INR} [facility] PT Coag (PPP) [Time] 11.3 s [facility] Type and screenon 12-20-2023 ABO AB [facility] Rh Nom (Bld) Positive [facility] URINALYSISon 12-20-2023 Bilirubin Ql (U) Negative Normal NEG [facility] BLOOD/HGB Negative Normal NEG [facility] Color (U) YELLOW Normal YELLOW [facility] Glucose Ql (U) Negative Normal NEG [facility] Ketones Ql (U) Negative Normal NEG [facility] Leukocyte esterase Test strip Ql (U) Negative Normal NEG [facility] MUCOUS PRESENT Abnormal NONE [facility] Nitrite Ql (U) Negative Normal NEG [facility] pH (U) 6.0 [pH] Normal 5.0-8.5 [facility] Protein Ql (U) Trace Abnormal NEG [facility] R.B.CELLS 2 /hpf Normal 0-5 [facility] Specific gravity (U) [Rel density] 1.026 Normal 1.003-1.035 [facility] TURBIDITY CLEAR Normal CLEAR [facility] Urobilinogen (U) [Mass/Vol] mg/dL Normal <1.1 [facility] W.B.CELLS 2 /hpf Normal 0-5 [facility] URINE CULTUREon 12-20-2023 Bacteria identified Cx Nom (U) CULTURE RESULTS <10,000 ORGANISMS/ML NORMAL URO GENITAL CORINA Normal [facility] Comment on above: Performed By: #### 6 30-4 #### [facility] ([id number]) [address] [place] [address] Urinalysison 12-20-2023 Bilirubin Ql (U) Negative Negative^Ne g ative [facility] Color (U) YELLOW YELLOW^YELLO W [facility] Glucose (U) [Mass/Vol] Negative Negative^Neg ative mg/dL [facility] Hemoglobin Auto test strip Ql (U) Negative Negative^Neg ative [facility] Interpretation and review of laboratory results Abnormal [facility] Ketones (U) [Mass/Vol] Negative Negative^Neg ative mg/dL [facility] Leukocyte esterase Auto test strip Ql (U) Negative Negative^Neg ative [facility] Mucus Ql (Urine sed) PRESENT Abnormal NONE^NONE [facility] Nitrite Auto test strip Ql (U) Negative Negative^Neg ative [facility] pH (U) 6.0 [pH] 5.0 - 8.5 [facility] Protein (U) [Mass/Vol] Trace Abnormal Negative^Neg ative mg/dL [facility] RBC Auto (Urine sed) [#/Area] 2 [facility] Specific gravity Refractometry automated (U) [Rel density] 1.026 1.003 - 1.035 [facility] Turbidity Ql (U) CLEAR CLEAR^CLEAR [facility] Urobilinogen Qn (U) NINF [facility] WBC Auto (Urine sed) [#/Area] 2 [facility] aPTT Coag (PPP) [Time]on aPTT Coag (Bld) [Time] 31 s Normal 26-37 [facility] Comment on above: Performed By: #### C ALEN, PINR, 63792-8, BMP #### [facility] ([id number]) [address], [address] [place] [address] XR SPINE LUMB BENDING ONLY 2 -3 [...] MD on 11/16/2023 8:[address] [facility] MR LUMBAR SPINE WO CONTon MR [...] Ortega MD on 11/01/2023 10:24 AM Normal [facility] XR shoulder RT min 2V*on XR shoulder RT min 2V* [facility] [address] [place] [address] XRay Report Signed Patient: Rgean Green MR#: [id number] 65 : 1950 Acct:[id number] Age/Sex: 73 / M ADM Date: 06/24/23 [place] [facility] [place]: Type: [facility] Attending Dr: Charity Barkley MD Copies [...] IMPRESSION: Degenerative change. Impression dictated by: Artie Glodsmith M.D.06/24/2023 12:37 PM Dictation Location: [place] [address] Transcribed By: [facility] 06/24/23 1237 Dictated By: Artie Goldsmith DO 06/24/23 1236 Signed By: 06/24/23 1237 Normal [facility] Covid-19 PCR (CVDTBH)on SARS-CoV-2 (COVID-19) RNA YASMIN+probe Ql (Unsp spec) Not detected Normal NOT DETECTED [facility] Comment on above: Result Comment: This test is not yet approved or cleared by the [place] FDA. When there are no FDA-approved or cleared tests available, and other criteria are met, FDA can make tests available under an emergency access mechanism called an Emergency Use Authorization (EUA). The EUA for this test is supported by the Systems Planner of Health and Human Service's (HHS's) declaration [...] with SARS-CoV-2. Performed By: #### [facility] #### [facility] [address] [place] [address] Dr. Keely Fitzgerald MRI Shoulder w/o Lefton [...] by Boogie Modi on 02/23/2022 1229 Normal [facility] [employer]eder PELVIS 1 OR 2 VWSon 04-16-20 PELVIS 1 OR 2 [facility]WS [facility] [place] [address] Patient Name: REGAN GREEN : 1950ex: MAge: Race: WhiteMRN: [id number]. Location: 84Patient Status: OVisit #: [id number] Date: 04/16/2018 9:20:00 AMCompleted Date: 04/16/2018 09:18 AMRequesting Provider: BILLY KILLIAN Attending Provider: BILLY KILLIAN Report Copy To: Signs & Symptoms: M46.1 Sacroiliitis, not elsewhere classified V80Zerallw: AthenaComments: , , , Ordering Provider - BILLY KILLIAN MD , Exam: PELVIS 1 OR 2 VWSAccession #: [id number] PEL VIS 1 OR 2 VWS 04/16/2018 [...] fracture Electronically signed by:Lea Le. Transcribed by: [email or web address], User Resident: Electronically Signed by: LEA LE @ 04/16/2018 10:35 AM Normal [facility] Comment on above: Order Comment: , , = ========= , Ordering Provider - BILLY KILLIAN MD , Vital Signs Date Time Vital Sign Value Performing Clinician Facility 11-25-2024 13:57-0500 Body height 175.3 cm Johnathan Kraus MD Work Phone: [facility] 11-25-2024 13:57-0500 Body mass index (BMI) [Ratio] 33.23 kg/m2 Johnathan Kraus MD Work Phone: [facility] 11-25-2024 13:57-0500 Body weight 102.06 kg Johnathan Kraus MD Work Phone: [facility] 11-25-2024 13:57-0500 Diastolic blood pressure 87 mm[Hg] Johnathan Kraus MD Work Phone: [facility] 11-25-2024 13:57-0500 Heart rate 80 /min Johnathan Kraus MD Work Phone: [facility] 11-25-2024 13:57-0500 SaO2% (BldA) [Mass fraction] 97 % Johnathan Kraus MD Work Phone: [facility] 11-25-2024 13:57-0500 Systolic blood pressure 139 mm[Hg] Johnathan Kraus MD Work Phone: [facility] 08-11-2024 09:12-0400 Body height 182.9 cm Sumanth Hill MD [facility] 08-11-2024 09:12-0400 Body mass index (BMI) [Ratio] 30.04 kg/m2 Sumanth Hill MD Work Phone: [facility] 08-11-2024 09:12-0400 Body temperature 96.8 [degF] Sumanth Hill MD Work Phone: [facility] 08-11-2024 09:12-0400 Body weight 100.47 kg Sumanth Hill MD Work Phone: [facility] 08-11-2024 09:12-0400 Diastolic blood pressure 82 mm[Hg] Sumanth Hill MD Work Phone: [facility] 08-11-2024 09:12-0400 Systolic blood pressure 134 mm[Hg] Sumanth Hill MD Work Phone: [facility] 06-04-2024 10:55-0400 Body height 182.9 cm Carl Sosa [employer] Work Phone: [facility] 06-04-2024 10:55-0400 Body mass index (BMI) [Ratio] 30.52 kg/m2 Carl Sosa [employer] Work Phone: [facility] 06-04-2024 10:55-0400 Body weight 102.06 kg Carl Ssoa [employer] Work Phone: [facility] 06-04-2024 10:55-0400 Diastolic blood pressure 90 mm[Hg] Carl Sosa [employer] Work Phone: [facility] 06-04-2024 10:55-0400 Heart rate 87 /min Carl Sosa [employer] Work Phone: [facility] 06-04-2024 10:55-0400 Respiratory rate 16 /min Carl Sosa [employer] Work Phone: [facility] 06-04-2024 10:55-0400 Systolic blood pressure 138 mm[Hg] Carl Sosa [employer] Work Phone: [facility] 04-28-2024 12:59-0400 Body height 182.9 cm Minh Heller MD Work Phone: [facility] 04-28-2024 12:59-0400 Body mass index (BMI) [Ratio] 30.52 kg/m2 Minh Heller MD Work Phone: [facility] 04-28-2024 12:59-0400 Body weight 102.06 kg Minh Heller MD Work Phone: [facility] 04-28-2024 12:59-0400 Diastolic blood pressure 85 mm[Hg] Minh Heller MD Work Phone: [facility] 04-28-2024 12:59-0400 Heart rate 77 /min Minh Heller MD Work Phone: [facility] 04-28-2024 12:59-0400 Systolic blood pressure 130 mm[Hg] Minh Heller MD Work Phone: [facility] 04-23-2024 09:44-0400 Body height 185.4 cm Mayco Nolen MD Work Phone: [facility] 04-23-2024 09:44-0400 Body mass index (BMI) [Ratio] 29.69 kg/m2 Mayco Nolen MD Work Phone: [facility] 04-23-2024 09:44-0400 Body weight 102.06 kg Mayco Nolen MD Work Phone: [facility] 04-23-2024 09:44-0400 Diastolic blood pressure 75 mm[Hg] Mayco Nolen MD Work Phone: [facility] 04-23-2024 09:44-0400 Heart rate 79 /min Mayco Nolen MD Work Phone: [facility] 04-23-2024 09:44-0400 Systolic blood pressure 134 mm[Hg] Mayco Nolen MD Work Phone: [facility] 02-12-2024 09:03-0400 Body height 185.4 cm Carl Sosa [employer] Work Phone: [facility] 02-12-2024 09:03-0400 Body mass index (BMI) [Ratio] 28.37 kg/m2 Carl Sosa [employer] Work Phone: [facility] 02-12-2024 09:03-0400 Body weight 97.52 kg Carl Sosa [employer] Work Phone: [facility] 02-12-2024 09:03-0400 Diastolic blood pressure 87 mm[Hg] Carl Sosa [employer] Work Phone: [facility] 02-12-2024 09:03-0400 Heart rate 85 /min Carl Sosa [employer] Work Phone: [facility] 02-12-2024 09:03-0400 Systolic blood pressure 135 mm[Hg] Carl Sosa [employer] Work Phone: [facility] 12-27-2023 11:46-0500 Body temperature 98.29 [degF] Mayco Nolen MD Work Phone: [facility] 12-27-2023 11:46-0500 Diastolic blood pressure 77 mm[Hg] Mayco Nolen MD Work Phone: [facility] 12-27-2023 11:46-0500 Heart rate 84 /min Mayco Nolen MD Work Phone: [facility] 12-27-2023 11:46-0500 Respiratory rate 14 /min Mayco Nolen MD Work Phone: [facility] 12-27-2023 11:46-0500 Systolic blood pressure 127 mm[Hg] Mayco Nolen MD Work Phone: [facility] 12-27-2023 04:23-0500 SaO2% (BldA) [Mass fraction] 94 % Mayco Nolen MD Work Phone: [facility] 12-25-2023 22:54-0500 Body mass index (BMI) [Ratio] 28.76 kg/m2 Mayco Nolen MD Work Phone: [facility] 12-25-2023 22:54-0500 Body weight 96.2 kg Mayco Nolen MD Work Phone: [facility] 12-25-2023 13:27-0500 Body height 182.9 cm Mayco Nolen MD Work Phone: [facility] 12-20-2023 14:20-0500 Body height 182.9 cm [facility] [address] [place] [address] 12-20-2023 14:20-0500 Body mass index (BMI) [Ratio] 29.39 kg/m2 [facility] [address] [place] [address] 12-20-2023 14:20-0500 Body temperature 97.7 [degF] [facility] [address] [place] [address] 12-20-2023 14:20-0500 Body weight 98.3 kg [facility] [address] [place] [address] 12-20-2023 14:20-0500 Diastolic blood pressure 84 mm[Hg] [facility] [address] [place] [address] 12-20-2023 14:20-0500 Heart rate 77 /min [facility] [address] [place] [address] 12-20-2023 14:20-0500 Respiratory rate 18 /min [facility] [address] [place] [address] 12-20-2023 14:20-0500 SaO2% (BldA) [Mass fraction] 97 % [facility] [address] [place] [address] 12-20-2023 14:20-0500 Systolic blood pressure 132 mm[Hg] [facility] [address] [place] [address] 11-14-2023 09:59-0500 Body height 180.3 cm Carl ABERNATHY Work Phone: [facility] 11-14-2023 09:59-0500 Body mass index (BMI) [Ratio] 29.57 kg/m2 Carl ABERNATHY Work Phone: [facility] 11-14-2023 09:59-0500 Body weight 96.16 kg Carl Sosa [employer] [facility] 11-14-2023 09:59-0500 Diastolic blood pressure 86 mm[Hg] Carl Sosa [employer] [facility] 11-14-2023 09:59-0500 Heart rate 81 /min Carl Sosa [employer] [facility] 11-14-2023 09:59-0500 Systolic blood pressure 135 mm[Hg] Carl Sosa [employer] Work Phone: [employer] 05-21-2023 10:00-0400 Body height 182.88 cm Charity Barkley Other [employer] Other 05-21-2023 10:00-0400 Body mass index (BMI) [Ratio] 30.51 kg/m2 Charity Filippo Other [employer] Other 05-21-2023 10:00-0400 Body weight 102.06 kg Charity Filippo Other [employer] Other Encounters Encounter Date Encounter Type Care Provider Facility Start: 01-28-2025 End: 01-28-2025 Telephone encounter Johnathan Kraus MD Work Phone: Neurology Comment on above: Schedule Surgery Start: 01-26-2025 End: 01-26-2025 ambulatory [facility] Work Phone: Start: 01-26-2025 End: 01-26-2025 Patient encounter procedure [facility] Work Phone: Start: 01-25-2025 End: 01-25-2025 ambulatory Rosales Corona MD Facility:[facility] Start: 01-09-2025 End: 01-09-2025 ambulatory Johnathan Kraus MD Work Phone: [facility] Comment on above: Spondylolisthesis of lumbar region (Primary Dx); Abnormal findings on diagnostic imaging of other parts of musculoskeletal system Start: 01-09-2025 End: 01-09-2025 Telemedicine consultation with patient Johnathan Kraus MD Work Phone: [facility] Start: 12-09-2024 ambulatory JOHNATHAN KRAUS Fac ility:[facility] Start: 12-09-2024 End: 12-09-2024 Subsequent hospital visit by physician [facility] Work Phone: [facility] Comment on above: Spondylolisthesis of lumbar region [M43.16] Start: 11-25-2024 End: 11-25-2024 ambulatory JOHNATHAN KRAUS Facility:[facility] Start: 11-25-2024 End: 11-25-2024 Patient encounter procedure Johnathan Kraus MD Work Phone: [facility] Comment on above: Spondylolisthesis of lumbar region (Primary Dx); Abnormal findings on diagnostic imaging of other parts of musculoskeletal system Start: 09-07-2024 End: 09-07-2024 ambulatory Rosales Corona MD Facility:[facility] Start: 08-26-2024 End: 08-26-2024 Orders Only Sumanth Hill MD [facility] Start: 08-25-2024 End: 08-25-2024 ambulatory [facility] Start: 08-11-2024 End: 08-11-2024 ambulatory SUMANTH [facility] Start: 08-11-2024 Encounter for genera l adult medical examination without abnormal findings SUMANTH [facility] Start: 08-11-2024 End: 08-11-2024 Patient encounter procedure Sumanth Hill MD Work Phone: [facility] Comment on above: Routine general medi jarrett examination at a health care facility (Primary Dx); Lumbar radiculopathy, chronic; Spondylolisthesis of lumbar region; Pure hypercholesterolemia; Adenocarcinoma of prostate ([facility]) Start: 08-11-2024 End: 08-11-2024 Patient encounter status Sumanth Hill MD Work Phone: [facility] Work Phone: Start: 07-31-2024 End: 07-31-2024 ambulatory [facility] Work Phone: Start: 07-31-2024 End: 07-31-2024 Patient encounter procedure [facility] Work Phone: Start: 07-27-2024 End: 07-27-2024 Telephone encounter Luanne Dowell RN Work Phone: [facility] Comment on above: Request for retro C9 Start: 07-01-2024 End: 07-03-2024 Chart abstracting Unk [facility] (Hist) Neurology Start: 06-18-2024 End: 06-18-2024 ambulatory KING CLARK Not Available Start: 06-04-2024 End: 06-04-2024 ambulatory SUMANTH HILL [facility] Start: 06-04-2024 End: 06-04-2024 Office outpatient visit 40 minutes Carl Sosa [employer] Work Phone: [facility] Comment on above: Spondylolisthesis of lumbar region (Primary Dx) Start: 06-02-2024 End: 06-02-2024 ambulatory JESSICA REYES Not Available Start: 05-22-2024 End: 05-22-2024 ambulatory [facility] Work Phone: Start: 05-22-2024 End: 05-22-2024 Patient encounter procedure [facility] Work Phone: Start: 05-12-2024 End: 06-04-2024 ambulatory MAYCO NOLEN [facility] Start: 04-28-2024 End: 04-28-2024 Office outpatient visit 15 minutes Minh Heller MD Work Phone: [facility] Comment on above: Adenocarcinoma of pr ostate (CMS-HCC) (Primary Dx) Start: 04-28-2024 End: 04-28-2024 ambulatory MINH HELLER [facility] Start: 04-27-2024 End: 04-27-2024 Telephone encounter Kayleigh Garcia LPN [facility] Start: 04-27-2024 End: 05-04-2024 ambulatory [facility] Start: 04-23-2024 End: 04-23-2024 ambulatory [facility] Start: 04-23-2024 End: 04-23-2024 Office outpatient visit 25 minutes Mayco Nolen MD Work Phone: [facility] Comment on above: Spondylolisthesis of lumbar region (Primary Dx); Status post lumbar laminectomy; Radiculopathy, lumbar region Start: 04-23-2024 End: 04-23-2024 ambulatory [facility] Start: 04-21-2024 End: 04-21-[facility] Start: 04-06-2024 End: 05-04-2024 [facility] Start: 03-04-2024 End[facility] Start: 02-14-2024 End: 03-04-2024 [facility] Start: 02-12-2024 End: 02-12-2024 Postop follow up visit related to original px Carl Sosa [employer] Work Phone: [facility] Comment on above: Status post lumbar l aminectomy (Primary Dx); Low back pain, non-specific; Leg pain, right; Weakness of right lower extremity; Sensory deficit, right Start: 02-12-2024 End: 02-12-2024 ambulatory CARL [facility] Start: 01-29-2024 End: 01-29-2024 ambulatory [facility] Work Phone: Start: 01-29-2024 End: 01-29-2024 Patient encounter procedure [facility] Work Phone: Start: 12-28-2023 End: 12-28-2023 ambulatory MARIA M VÁSQUEZ [facility] Start: 12-25-2023 End: 12-28-2023 ambulatory LUCAS Sarah [facility] Start: 12-25-2023 End: 12-27-2023 ambulatory [facility] Start: 12-25-2023 End: 12-27-2023 Subsequent hospital visit by physician Mayco Nolen MD Work Phone: [facility] Comment on above: Radiculopathy, lumba r region; Neurogenic claudication Start: 12-24-2023 Telephone encounter Ella [facility] Comment on above: surgery Start: 12-20-2023 Telephone encounter Hoda Rm MA [facility] Start: 12-20-2023 End: 12-20-2023 Patient encounter procedure [facility] Comment on above: Radiculopathy, lumba r region; Neurogenic claudication; Monitoring for anticoagulant use; Abnormal urine findings Start: 12-20-2023 End: 12-20-2023 ambulatory LUCAS [facility] Start: 12-18-2023 Documentation procedure Jasmin Noriega [employer] Work Phone: [facility] Start: 12-10-2023 Telephone encounter Myrtle Hatch LPN [facility] Comment on above: surgery Start: 12-05-2023 End: 01-03-[address] [facility] Start: 11-27-2023 Telephone encounter Ella [facility] Start: 11-22-2023 End: 12-05-[address] [facility] Start: 11-14-2023 End: 11-14-2023 ambulatory [facility] Start: 11-14-2023 End: 11-14-2023 Office outpatient new 45 minutes Carl Sosa [employer] Work Phone: [facility] Comment on above: Neurogenic claudicat ion (Primary Dx); Lumbar radiculopathy, chronic Start: 11-14-2023 End: 11-14-2023 ambulatory [facility] Start: 11-05-2023 Telephone encounter Dolores Rm [facility] Comment on above: Er Follow-up Lumbar radiculopathy , chronic (Primary Dx) Start: 11-01-2023 End: 11-01-2023 ambulatory [facility] Start: 10-31-2023 End: 10-31-2023 Emergency department patient visit [facility] Start: 10-30-2023 End: 10-30-2023 ambulatory Charity Barkley Other [employer] Other Start: 10-30-2023 Office outpatient vi sit 15 minutes Charity Barkley [facility] Start: 10-22-2023 End: 10-23-2023 Emergency department patient visit MAEVE [facility] Start: 08-20-2023 End: 08-20-2023 ambulatory Charity Barkley Other [employer] Other Start: 08-20-2023 Office outpatient vi sit 15 minutes Charity Calvey [facility] Start: 07-23-2023 End: 07-23-2023 ambulatory Charity Calvey Other [employer] Other Start: 07-23-2023 Office outpatient vi sit 15 minutes Charity Calvey [facility] Start: 06-24-2023 Office outpatient vi sit 15 minutes Charity Calvey [facility] Start: 06-24-2023 End: 06-24-2023 Patient encounter procedure MD Charity Barkley Work Phone: [facility] Start: 06-24-2023 End: 06-24-[address] [facility] Work Phone: Start: 05-21-2023 Office outpatient ne w 30 minutes [facility] Start: 05-21-2023 End: 05-21-2023 ambulatory MD Charity Barkley Work Phone: [facility] Work Phone: Start: 05-21-2023 End: 05-21-2023 Patient encounter procedure MD Charity Barkley Work Phone: [facility] Start: 03-19-2023 End: 03-20-2023 ambulatory NARENDRANATH LAKSHMIPATHY . Facility:[facility] Start: 02-21-2023 End: 02-22-2023 ambulatory NARENDRANATH LAKSHMIPATHY . Facility:[facility] Start: 12-18-2022 End: 12-19-[address] ROMERO SOSA . Facility:[facility] Start: 11-22-2022 End: 11-23-[address] ROMERO SOSA . Facility:[facility] Start: 10-11-2022 Encounter for preprocedural laboratory examination DR ROMERO SOSA . [facility] Start: 10-09-2022 End: 10-09-[address] ROMERO SOSA . Facility:[facility] Start: 10-05-2022 End: 10-06-[address] ROMERO SOSA . Facility:[facility] Start: 10-05-2022 End: 10-06-2022 Encounter for preprocedural laboratory examination DR ROMERO SOSA . Facility:[facility] Start: 10-01-2022 Encounter for preprocedural cardiovascular examination ISELA SALMERON . [facility] Start: 09-26-2022 End: 09-27-2022 ambulatory ISELA [...] Start: 04-16-2018 End: 04-17-2018 Ambulatory BILLY KILLIAN Facility:[facility] Start: 01-28-2018 End: 01-29-2018 Ambulatory DEFAULT PHYSICIAN Facility:[facility] Procedures Date Procedure Procedure Detail Performing Clinician Start: 12-09-2024 Bone &/joint imaging 3 phase study Johnathan Kraus MD Work Phone: Start: 08-25-2024 Lipid 1996 panel - S kenji or Plasma Johnathan Kraus MD Work Phone: Start: 08-11-2024 Adult depression scr eening assessment Sumanth Hlil MD Work Phone: Start: 04-23-2024 Follow-up visit Follow-up MAYCO NOLEN Start: 12-27-2023 Ecg routine ecg w/le ast 12 lds trcg only w/o i&r Christina Varma ACCOUNT LIAISON-[employer]INGER [employer]FF SE[employer]ER Work Phone: Start: 12-27-2023 End: 12-27-2023 Basic metabolic panel calcium total Christina Varma [employer] LIAISON[employer] Work Phone: Start: 12-26-2023 Basic metabolic pane l calcium total Christina Varma ACCOUNT LIAISON-[employer]ER [employer] SE[employer] Work Phone: Start: 12-25-2023 Fluor needle/cath spine/paraspinal [...] Adult depression scr eening assessment Dolores Justin LIAISON INSPECTION LABORATORY ASSISTANT Start: 06-24-2023 Plain X-ray of right shoulder MD Charity Barkley Work Phone: Start: 05-21-2023 Plain X-ray of left hand MD Charity Barkley Work Phone: Start: 03-25-2023 Colonoscopy Unk (Hist) Plan of Treatment Date Care Activity Detail Author Start: 08-25-2029 Lipid panel Lipid Screening [facility] Start: 07-30-2028 Lipid panel Lipid Screening [facility] Start: 08-25-2027 Diabetes Screening Diabetes Screening [facility] Start: 12-27-2026 Diabetes Screening Diabetes Screening [facility] Start: 08-18-2025 End: 08-18-2025 Patient encounter procedure 08/18/2025 8:00 AM EDT Office Visit [facility] [address] [place] [address] [facility] Start: 08-11-2025 Adult BMI Screening Adult BMI Screening [facility] Start: 08-11-2025 Depression Screening Depression Screening [facility] Start: 08-11-2025 Fall Risk Screening Fall Risk Screening [facility] Start: 08-11-2025 Medicare Annual Wellness Visit Medicare Annual Wellness Visit [facility] Start: 08-11-2025 Tobacco Screening Tobacco Screening [facility] Start: 06-04-2025 Adult BMI Screening Adult BMI Screening [facility] Start: 06-04-2025 Tobacco Screening Tobacco Screening [facility] Start: 04-28-2025 Adult BMI Screening Adult BMI Screening [facility] Start: 04-28-2025 Tobacco Screening Tobacco Screening [facility] Start: 04-23-2025 Adult BMI Screening Adult BMI Screening [facility] Start: 02-11-2025 Adult BMI Screening Adult BMI Screening [facility] Start: 02-11-2025 Tobacco Screening Tobacco Screening [facility] Start: 01-09-2025 End: 01-09-2025 ambulatory 01/09/2025 9:30 AM EST [facility] [address] [id number] Johnathan Kraus MD [address] [facility] [address] [id number] f/u with provider [facility] Comment on above: f/u with provider Start: 12-25-2024 Adult BMI Screening Adult BMI Screening [facility] Start: 12-25-2024 Tobacco Screening Tobacco Screening [facility] Start: 12-20-2024 Adult BMI Screening Adult BMI Screening [facility] Start: 12-20-2024 Tobacco Screening Tobacco Screening [facility] Start: 12-09-2024 End: 12-09-2024 Patient encounter procedure [facility] Comment on above: Weight 225 / Not Diabetic / DX: Abnormal findings on diagnostic imaging of other parts of musculoskeletal system [R93.7] WITH SPECT CT... Start: 11-14-2024 Adult BMI Screening Adult BMI Screening [facility] Start: 11-14-2024 Tobacco Screening Tobacco Screening [facility] Start: 11-04-2024 Advance Directive Discussion Advance Directive Discussion [facility] Start: 10-31-2024 Tobacco Screening Tobacco Screening [facility] Start: 10-23-2024 Fall Risk Screening Fall Risk Screening [facility] Start: 10-22-2024 Adult BMI Screening Adult BMI Screening [facility] Start: 08-11-2024 End: 08-11-2025 CBC W Auto Differential panel - Blood CBC auto differential Lab Routine Pure hypercholesterolemia Expected: 08/11/2024, Expires: 08/11/2025 [facility] Work Phone: Comment on above: Expected: 08/11/2024, Expires: Start: 08-11-2024 End: 08-11-2025 Comprehensive metabolic 2000 panel - Serum or Plasma Comprehensive metabolic panel Lab Routine Pure hypercholesterolemia Expected: 08/11/2024, Expires: 08/11/2025 [facility] Comment on above: Expected: 08/11/2024, Expires: Start: 08-11-2024 End: 08-11-2025 Lipid 1996 panel - Serum or Plasma Lipid profile Lab Routine Pure hypercholesterolemia Expected: 08/11/2024, Expires: 08/11/2025 [facility] Comment on above: Expected: 08/11/2024, Expires: Start: 08-11-2024 End: 08-11-2025 Thyroid profile includes TSH FT4 Thyroid profile includes TSH FT4 Lab Routine Pure hypercholesterolemia Expected: 08/11/2024, Expires: 08/11/2025 [facility] Comment on above: Expected: 08/11/2024, Expires: Start: 08-11-2024 End: 08-11-2024 Patient encounter procedure 08/11/2024 9:00 AM EDT Office Visit [facility] [address] [facility] [place] [phone] Sumanth Hill MD [address] [address] [facility] Start: 07-30-2024 End: 07-30-2024 Patient encounter procedure 07/30/2024 8:30 AM EDT Office Visit [facility] [address] [place] [phone] Sumanth Hill MD [address] [place], [place] [phone] [facility] Start: 07-29-2024 Depression Screening Depression Screening [facility] Start: 07-29-2024 Medicare Annual Wellness Visit Medicare Annual Wellness Visit [facility] Start: 07-05-2024 COVID-19 Vaccine ( season) COVID-19 Vaccine () [facility] Start: 07-05-2024 Covid-19 Vaccine () Covid-19 Vaccine () [facility] Start: 07-05-2024 Influenza vaccination [facility] Start: 06-04-2024 End: 06-04-2024 Patient encounter procedure 06/04/2024 9:45 AM EDT Office Visit [facility] [address] [place] [phone] Mayco Nolen MD [address] [place] [phone] [facility] Start: 05-01-2024 End: 05-01-2024 Patient encounter procedure 05/01/2024 7:30 AM EDT Appointment [facility] [address] [place] [phone] Spondylolisthesis of lumbar region [facility] Comment on above: Spondylolisthesis of lumbar region Start: 04-28-2024 End: 04-28-2024 Patient encounter procedure 04/28/2024 1:00 PM EDT Office Visit [facility] [address] [place] [address] [facility] [place] [phone] Minh Heller MD [address] [place] [address] [facility] Start: 04-21-2024 End: 04-21-2024 Patient encounter procedure 04/21/2024 1:45 PM EDT Office Visit [facility] [address] [place] [address] [address] [facility] [place] [address] Minh Heller MD [address] [place] [address] [facility] Start: 03-25-2024 Screening for malignant neoplasm of colon [facility] Start: 02-13-2024 End: 02-13-2024 Patient encounter procedure 02/13/2024 1:50 PM EDT Office Visit [facility] [address] [place] [phone] Mayco Nolen MD [address] [place] [phone] [facility] Start: 02-12-2024 End: 02-11-2025 XR Lumbar spine Views AP W right bending and W left bending [facility] Comment on above: Expected: 02/12/2024, Expires: Start: 12-25-2023 End: 12-25-2023 Admission to same day surgery center 12/25/2023 2:45 PM EST - 12/25/2023 4:45 PM EST Surgery [facility] [address] [place] [phone] Mayco Nolen MD [address] [place] [phone] LAMINECTOMY LUMBAR MULTI LEVEL / L2-L5 [facility] Comment on above: LAMINECTOMY LUMBAR MULTI LEVEL / L2-L5 Start: 12-25-2023 End: 12-25-2023 LAMINECTOMY LUMBAR MULTI LEVEL [facility] Start: 12-25-2023 Subsequent hospital visit by physician 12/25/2023 2:45 PM EST Hospital Encounter [facility] [address] [place] [phone] Mayco Nolen MD [address] [place] [phone] [facility] Start: 12-06-2023 End: 12-06-2023 Patient encounter procedure 12/06/2023 7:00 AM EST Appointment [facility] [address] [place] [phone] [facility] Start: 11-14-2023 End: 11-14-2024 XR Lumbar spine Views AP W right bending and W left bending [facility] Work Phone: Comment on above: Expected: 11/14/2023, Expires: Start: 11-04-2023 Advance Directive Discussion Advance Directive Discussion [facility] Start: 07-05-2023 Covid-19 Vaccine ( season) Covid-19 Vaccine ( season) [facility] Start: 07-05-2023 COVID-19 Vaccine ( season) COVID-19 Vaccine ( season) [facility] Start: 2017 Abdominal aortic aneurysm screening Abdominal Aortic Aneurysm (AAA) Screen [facility] Start: 07-24-2013 Administration of varicella zoster vaccine Zoster (Shingles) Vaccine (1 of 2) [facility] Start: 07-24-2013 Shingrix Vaccine (2 of 3) Shingrix Vaccine (2 of 3) [facility] Start: 2012 RSV Vaccine (1 - 1-dose 60+ series) RSV Vaccine (1 - 1-dose 60+ series) [facility] Start: 1997 Screening for malignant neoplasm of colon [facility] Start: 1971 DTaP,Tdap and Td Vaccines (1 - Tdap) DTaP,Tdap and Td Vaccines (1 - Tdap) [facility] Start: 1971 Urine microalbumin profile DTaP,Tdap,Td Vaccine (1 - Tdap) [facility] Start: 1970 Adult BMI Follow Up Plan Adult BMI Follow Up Plan [facility] Start: 1970 Anxiety Screening Anxiety Screening [facility] Start: 1970 Depression Screening Depression Screening [facility] Start: 1970 Hepatitis C screening Hepatitis C Screening [facility] Start: 1952 Abdominal aortic aneurysm screening Abdominal Aortic Aneurysm Screening [facility] End: 02-11-2025 MR Lumbar spine WO contrast MR lumbar spine without contrast Imaging Routine Status post lumbar laminectomy Low back pain, non-specific Leg pain, right Weakness of right lower extremity Sensory deficit, right 1 Occurrences starting 02/12/2024 until 02/11/2025 [facility] Work Phone: Comment on above: 1 Occurrences starting 02/12/2024 until 02/11/2025 End: 12-25-2025 NM Bone 3 Phase Views NM BONE 3 PHASE Radiology Routine Abnormal findings on diagnostic imaging of other parts of musculoskeletal system 1 Occurrences starting 11/25/2024 until 12/25/2025 [facility] Comment on above: 1 Occurrences starting 11/25/2024 until 12/25/2025 End: 12-25-2025 SPECT Bone NM BONE SPECT Radiology Routine Spondylolisthesis of lumbar region 1 Occurrences starting 11/25/2024 until 12/25/2025 [facility] Work Phone: Comment on above: 1 Occurrences starting 11/25/2024 until 12/25/2025 Immunizations Immunization Date Immunization Notes Care Provider [facility] 07-09-2024 influenza, high dose seasonal, preservative-free Sumanth Hill MD Work Phone: [facility] 07-09-2024 Pneumococcal Conjuga te 20-valent Sumanth Hill MD Work Phone: [facility] 08-05-2023 Influenza, High-dose , Quadrivalent Sumanth Hill MD Work Phone: [facility] 08-05-2023 RSV, bivalent, prote in subunit RSVpreF, diluent reconstituted, 0.5 mL, PF Sumanth Hill MD Work Phone: [facility] 08-05-2023 influenza virus vacc ine, unspecified formulation Carl Sosa ACCOUNT LIAISON-[employer]INGER [employer]FF SEWER Work Phone: [facility] 08-20-2022 Influenza, High-dose , Quadrivalent Dolores [facility] 08-20-2022 influenza virus vacc ine, unspecified formulation Unk (Hist) [facility] 04-26-2022 influenza, injectabl e, quadrivalent, preservative free Dolores [facility] 09-18-2021 influenza, injectabl e, quadrivalent, preservative free Dolores [facility] 07-20-2020 Influenza, High-dose , Quadrivalent Dolores [facility] 08-11-2019 influenza, high dose seasonal, preservative-free Dolores [facility] 08-11-2019 pneumococcal polysaccharide vaccine, 23 valent Dolores [facility] 07-31-2018 influenza, injectabl e, quadrivalent, preservative free Dolores [facility] 11-20-2017 influenza, seasonal, injectable, preservative free Dolores [facility] 11-20-2017 pneumococcal conjuga te vaccine, 13 valent Dolores [facility] 08-19-2013 pneumococcal polysaccharide vaccine, 23 valent Dolores [facility] 05-29-2013 zoster vaccine, live Dolores [facility] 05-29-2013 zoster vaccine, unspecified formulation Dolores [facility] 08-18-2012 influenza virus vacc ine, whole virus Dolores [facility] 08-13-2012 pneumococcal polysaccharide vaccine, 23 valent Dolores [facility] 08-13-2012 zoster vaccine, live Dolores [facility] 09-03-2011 influenza virus vacc ine, whole virus Dolores [facility] 09-11-2010 influenza virus vacc ine, whole virus Dolores [facility] 08-22-2009 influenza virus vacc ine, whole virus Dolores [facility] Payers Date Payer Category Payer Worker's Compensation [id number] 2023 Self-pay [id number] 2023 Unknown [id number] 2021 Private Health Insurance MMO MED ICARE SUPPLEMENT [id number] 2019 Commercial Indemnity MEDICAL MUT UAL [id number] 2019 Unknown 2017 Medicare [id number] 1959 Medicare [id number] 1959 Unknown [id number] 1959 Unknown [id number] 1952 Unknown [id number] 2.16.840.1.870799.3.579.2 .593 1952 Unknown [id number] 2.16.840.1.886186.3.579.2 .593 1952 Unknown [id number] 2.16.840.1.063990.3.579.2 .593 1952 Unknown [id number] 2.16.840.1.527574.3.579.2 .593 1952 Unknown [id number] 2.16.840.1.306390.3.579.2 .593 1952 Unknown [id number] 2.16.840.1.058180.3.579.2 .593 1952 Unknown [id number] 2.16.840.1.231650.3.579.2 .593 1952 Unknown [id number] 2.16.840.1.490189.3.579.2 .593 1952 Unknown [id number] 2.16.840.1.329979.3.579.2 .593 1952 Unknown [id number] 2.16.840.1.395577.3.579.2 .593 1952 Unknown [id number] 2.16.840.1.946518.3.579.2 .3 1952 Unknown [id number] 2.16.840.1.353979.3.579.2 .1285 1952 Unknown [id number] 2.16.840.1.441789.3.579.2 .1285 1952 Unknown [id number] 2.16.840.1.658964.3.579.2 .1285 1952 Unknown [id number] 2.16.840.1.970159.3.579.2 .1285 1952 Unknown [id number] 2.16.840.1.114596.3.579.2 .1285 1952 Unknown [id number] 2.16.840.1.499336.3.579.2 .1285 1952 Unknown [id number] 2.16.840.1.484497.3.579.2 .1285 1952 Unknown [id number] 2.16.840.1.493812.3.579.2 .1285 1952 Unknown [id number] 2.16.840.1.164659.3.579.2 .1258 1952 Unknown [id number] 2.16.840.1.223740.3.579.2 .1258 1952 Unknown [id number] 2.16.840.1.049894.3.579.2 .1285 1952 Unknown [id number] 2.16.840.1.809154.3.579.2 .1285 1952 Unknown [id number] 2.16.840.1.596079.3.579.2 .1285 1952 Unknown [id number] 2.16.840.1.447151.3.579.2 .1285 1952 Unknown [id number] 2.16.840.1.485708.3.579.2 .1285 1952 Unknown [id number] 2..840.1.942171.3.579.2 .1285 1952 Unknown [id number] 2.840.1.532939.3.579.2 .1285 1952 Unknown [id number] 2.16.840.1.389752.3.579.2 .1285 1952 Unknown [id number] 2.16.840.1.589309.3.579.2 .1285 1952 Unknown [id number] 2.16.840.1.530934.3.579.2 .1285 1952 Unknown [id number] 2.16.840.1.039148.3.579.2 .1285 1952 Unknown [id number] 2.16.840.1.309661.3.579.2 .1285 1952 Unknown [id number] 2.16.840.1.758078.3.579.2 .1285 1952 Unknown [id number] 2.16.840.1.646107.3.579.2 .1286 1952 Unknown [id number] 2.16.840.1.017301.3.579.2 .1286 1952 Unknown [id number] 2.16.840.1.838669.3.579.2 .1286 1952 Unknown [id number] 2.16.840.1.134541.3.579.2 .1286 1952 Unknown [id number] 2.16.840.1.735373.3.579.2 .1286 1952 Unknown [id number] 2.16.840.1.903161.3.579.2 .6 1952 Unknown [id number] 2.16.840.1.087162.3.579.2 .1286 1952 Unknown [id number] 2.16.840.1.813306.3.579.2 .196 1952 Unknown [id number] 2.16.840.1.428400.3.579.2 .196 Unknown [facility] [id number] Unknown [id number] 2.16.840.1.888785.3.579.2 .531 Social History Date Type Detail Facility Unknown if ever smoked [facility] Work Phone: Start: 11-02-2017 End: 11-25-2024 Sex Assigned At [facility] Start: 1950 Sex Assigned At Male F [facility] Start: 11-07-2018 Tobacco smoking stat us [facility] Never smoked tobacco (finding) [facility] Start: 02-08-2017 End: 11-25-2024 Tobacco smoking status PRIS Ex-smoker [facility] End: 11-04-1996 History of tobacco use Current smoker [facility] End: 11-04-1996 History of tobacco use Cigarette Smoker [facility] Start: 02-08-2017 End: 11-25-2024 Tobacco use and exposure Smokeless tobacco non-user [facility] Start: 05-01-2017 End: 11-25-2024 Alcoholic beverage intake Current drinker of alcohol (finding) [facility] Start: 11-02-2017 End: 11-25-2024 History of Social function [facility] Start: 1950 Sex assigned at Not on file P [facility] Adult Depression Screening Assessment 1 [facility] Start: 07-22-2024 Gender identity Identifies as male gender (finding) [facility] Start: 07-22-2024 Sexual orientation Heterosexual (fin ding) [facility] Start: 01-17-2023 Alcohol Comment socially [facility] Start: 06-09-2015 End: 01-26-2025 Sex Male (finding) [facility] Medical Equipment Procedure Code Equipment Code Equipment Origin al Text Equipment Identifier Dates Patch Dura 1x1in Drmtrx-[place] + Clgn Rgnrt Membr Strl [facility] [id number] - [id number] Start: 12-25-2023 Goals Date Patient Goal [...] difficulty hearing No 03/12/2017 5:46 PM Dolores Viera RN No [facility] 03-12-2017 Are you blind, or do you have serious difficulty seeing, even when wearing glasses No 03/12/2017 5:46 PM Dolores Viera RN No [facility] 03-12-2017 Do you have serious difficulty walking or climbing stairs No 03/12/2017 5:46 PM Dolores Viera RN No [facility] 03-12-2017 Do you have difficul ty dressing or bathing No 03/12/2017 5:46 PM Dolores Viera RN No [facility] 03-12-2017 Because of a physica l, mental, or emotional condition, do you have difficulty doing errands alone such as visiting a physician's office or shopping No 03/12/2017 5:46 PM EDT Dolores Bishop RN No [facility] Mental Status Date Assessment Result Facility 03-12-2017 Because of a physica l, mental, or emotional condition, do you have serious difficulty concentrating, remembering, or making decisions No 03/12/2017 5:46 PM EDT Dolores Bishop RN No [facility] Clinical Notes 06-14-2022 to 01-28-2025 Telephone Encounter - Reyes Steinberg RN - 01/28/2025 1:17 PM EDTTelephone Encounter - Reyes Steinberg RN - 01/28/2025 1:17 PM EDTTelephone Encounter - Kaykay Gandhi - 01/28/2025 10:34 AM EDT Note Date & Type Note Facility 01-28-2025 Telephone encounter Note Per SY w/ MS on 01/09/25: It be my suggestion that we decompress and fuse L4-5 alone knowing that there is some uptake in the facet joints at L3-4. If back pain persists and not significant after surgery we can always come back later and approach the L3-4 level from a lateral approach. Shared with RNCC for scheduling upon return to office. [facility] 01-28-2025 Miscellaneous Notes Per SY w/ MS on 01/09/25: It be my suggestion that we decompress and fuse L4-5 alone knowing that there is some uptake in the facet joints at L3-4. If back pain persists and not significant after surgery we can always come back later and approach the L3-4 level from a lateral approach. Shared with RNCC for scheduling upon return to office. Call received for Johnathan Kraus MD regarding Regan Green. Caller: self Patient Identified by Name and : Regan Green 1950 Reason for Call: General - Patient is calling would like to schedule his surgery. Is there any additional information the provider should know? Yes he has had two injection on 01/25/25 wants to know if that is going to be issue when he has his surgery. Last Office Visit: 01/09/2025 Next scheduled appointment: Visit date not found Best number to reach caller: [phone] and [phone] Best time to reach caller: anytime Is it OK to leave a detailed voice message? Yes Kaykay Gandhi documented in this encounter [facility] 01-28-2025 Telephone encounter Note Call received for Johnathan Kraus MD regarding Regan Green. Caller: self Patient Identified by Name and : Regan Green 1950 Reason for Call: General - Patient is calling would like to schedule his surgery. Is there any additional information the provider should know? Yes he has had two injection on 01/25/25 wants to know if that is going to be issue when he has his surgery. Last Office Visit: 01/09/2025 Next scheduled appointment: Visit date not found Best number to reach caller: [phone] and [phone] Best time to reach caller: anytime Is it OK to leave a detailed voice message? Yes Kaykay Gandhi [facility] 01-09-2025 Note HNO ID: [id number] Author: JOHNATHAN KRAUS MD Service: ? Author Type: Physician Type: Progress Notes Filed: 01/09/2025 09:51 Note Text: SPINE SURGERY ESTABLISHED VISIT This is a virtual visit using [employer] Video Visit. It required patient-provider interaction for the medical decision making as documented below. I have communicated my name and active licensure. The patient's identity and physical location were verified at the time of this visit. Either the patient or their legal customer service representative teacher has been informed of the risks and [...] approach the L3-4 (more content not included)... [facility] 01-09-2025 History of Present illness Narrative Images from the original note were not included. SPINE SURGERY ESTABLISHED VISIT This is a virtual visit using [employer] Zoom Video Visit. It required patient-provider interaction for the medical decision making as documented below. I have communicated my name and active licensure. The patient's identity and physical location were verified at the time of this visit. Either the patient or their legal customer service representative teacher has been informed of the risks and [...] the patient or the patient s personal customer service representative teacher. The patient intends to call the office with a decison. Shared decision making occurred while obtaining informed consent. 1. No Orders Entered Today 2. Follow up: Following above Imaging Ordered: None time 30 min SIGNATURE: Johnathan Kraus MD PATIENT NAME: Regan Green DATE: January 09, 2025 TIME: 9:48 AM PAGER: documented in this encounter [facility] 12-09-2024 History of Present illness [...] PATIENT PRESENTS WITH AN IMPLANTABLE OR ATTACHED KITCHEN MECHANIC: No CREATININE: Creatinine Date Value Ref Range [...] DIAGNOSTIC CT PERFORMED: No IV SITE: Ambulatory: [place] only - direct IV injection in the Right hand POST EXAM PIV STATUS: Discontinued PROCEDURE TYPE: NM INJECT: THREE PHASE BONE SCAN SPECT/CT WITH WHOLEBODY SCAN. 23.7 mCi Tc99m MDP. No other medications given.. ADMINISTRATION TIME: 1025 PATIENT DISCHARGED TO: Ambulatory patient, left [place] department area. Is this a therapy: No A Diagnostic radioactive procedure has taken place, with no further precautions necessary other than routine body substance precautions. More information regarding radiation safety can be found using this link: [email or web address] %[email or web address] SIGNATURE: Sorin Shane PATIENT NAME: Regan Green DATE: December 09, 2024 TIME: 10:48 AM PAGER/CONTACT #: documented in this encounter [facility] 12-09-2024 Note HNO ID: [id number] Author: CLAUDIA CHOWDHURY Nuclear Tech Service: Nuclear Medicine Author Type: Layout Worker Type: Progress Notes Filed: 12/09/2024 10:50 Note [...] PATIENT PRESENTS WITH AN IMPLANTABLE OR ATTACHED KITCHEN MECHANIC: No CREATININE: Creatinine Date Value Ref Range [...] 1025 PATIENT DISCHARGED TO: Ambulatory patient, left [place] department area. Is this a therapy: No A Diagnostic radioactive procedure has taken place, with no further precautions necessary other than routine body substance precautions. More information regarding radiation safety can be found using this link: [email or web address] [email or web address] 20Diagnostic%20Nuclear%20Medicine% 20Procedures.pdf SIGNATURE: Claudia Chowdhury [place] PATIENT NAME: Regan Green DATE: December 09, 2024 TIME: 10:48 AM PAGER/CONTACT #: [facility] 11-25-2024 History of Present illness Narrative Images from the original note were not included. SPINE SURGERY NEW PATIENT PCP: Sumanth Huang MD REFERRING PROVIDER: Lisa Palm [address] [facility] [address] 30 minutes Assessment/Plan No diagnosis found. Regan [...] disc space narrowing. documented in this encounter [facility] 11-25-2024 Note HNO ID: [id number] Author: JOHNATHAN KRAUS MD Service: ? Author Type: Physician Type: Progress Notes Filed: 12/01/2024 07:07 Note Text: SPINE SURGERY NEW PATIENT PCP: Sumanth Huang MD REFERRING PROVIDER: Lisa Palm [address] [facility] [address] 30 minutes Assessment/Plan No diagnosis found. Regan [...] Not tested. SPURLING' (more content not included)... [facility] 08-11-2024 History of Present illness Narrative Images from the original note were not included. [address] [id number] Subjective: Regan Green is [...] and Other Communication Barriers: Primary Language Spoken: Nepalese Highest Level of Education Completed: high school [...] you have a durable power of assistant city attorney?: Yes Fall Risk Fall Risk Assessment [...] with pain 02/08/2020 [place]ignant [place] of [place] 02/07/2017 Adenocarcinoma of prostate ([facility] 11/20/2016 Past Medical History: Diagnosis Date Cancer [...] 03/25/2023 Performed by Johnathan Campbell DO at [facility] HERNIA REPAIR Left inguinal HIP SURGERY Left JOINT REPLACEMENT LAMINECTOMY LUMBAR MULTI LEVEL / L2-L5 N/A 12/25/2023 Performed by Mayco Nolen MD at [facility] PROSTATE BIOPSY PROSTATECTOMY REVISION TOTAL KNEE [...] method used for this test is [employer] DXI chemiluminescent immunoassay. Values obtained by different [...] includes TSH FT4; Future Adenocarcinoma of prostate ([facility]) Follow Up: Consider inversion table fasting labs [facility] Instructions Sumanth Hill MD - 08/11/2024 [...] services: Not applicable [facility]24 Miscellaneous Notes Received a request for a retro C9 for PT for patient. Patient's care and surgery with us has never been under a workers comp claim. Call to Chuckie [phone] advising his of this and call back number provided if he has any additional questions. Fax we received will be scanned into chart. documented in this encounter [employer] 07-27-2024 Telephone encounter Note Received a request for a retro C9 for PT for patient. Patient's care and surgery with us has never been under a workers comp claim. Call to Chuckie Leyva [phone] advising his of this and call back number provided if he has any additional questions. Fax we received will be scanned into chart. [employer] Work Phone: 07-03-2024 Note HNO ID: [id number] Author: LUANNE ELLIOTT APRN.FINGER BUFF SEWER Service: ? Author Type: Nurse Practitioner Type: Progress Notes Filed: 07/03/2024 16:12 Note Text: Per Triage: Regan Green is a 74 year old male that requests evaluation of lumbar spine. Per review, they have symptoms of right leg pain from right knee to ankle numbness and weakness Patient lives in [facility] [address] Gregorio Palm [...] of imaging with him and injection history [facility] 07-03-2024 History of Present illness Narrative Per Triage: Regan Green is a 74 year old male that requests evaluation of lumbar spine. Per review, they have symptoms of right leg pain from right knee to ankle numbness and weakness Patient lives in [place] [address] Gregorio Palm 's office [...] the facility where the MRI/CT/myelogram was completed: [place] [address] [place] [id number] MRI/CT/myelogram viewable in Epic: No If not, please provide [phone] to fax in imaging reports for review. Also, please inform patient to hand carry imaging disc to appointment. XR (spine) within 12 months: Yes If YES, please ask for the name/address of the facility where the XR was completed: [place] [id number] Dr. Robertson's patients: Have you had previous [...] injections and/or physical therapy was completed PT: [facility] [address] [place] [address] Injections: [facility] [address] [place] [address] Have you tried any other kinds of [...] the surgery was completed: 12/25/2023, Laminectomy L2-L5 [address] [address] Additional Comments [phone] documented in this encounter [facility] 07-01-2024 Note HNO ID: [id number] Author: ?, ?, ? Service: ? Author [...] who is the Referring Provider Dr. Gregorio aPlm 's office referring the patient to be [...] the facility where the MRI/CT/myelogram was completed: [facility] [address] [place] [address] MRI/CT/myelogram viewable in [facility]: No If not, please provide [phone] to fax in imaging reports for review. Also, please inform patient to hand carry imaging disc to appointment. XR (spine) within 12 months: Yes If YES,? please ask for the name/address of the facility where the XR was completed: [facility] [address] [place] [address] Dr. Robertson's patients: Have you had previous [...] injections and/or physical therapy was completed PT: [facility] [address] [place] [address] Injections: [facility] [address] [place] [address] Have you tried any other kinds of [...] the surgery was completed: 12/25/2023, Laminectomy L2-L5 [facility] [address] [place] [address] Additional Comments [phone] [facility] 06-04-2024 History of Present illness Narrative Images from the original note were not included. [facility] [address] [place] [address], [address] [place] [address] * CHART NOTE ? 06/04/2024 Patient: Regan Green 1950 [id number] Nurse Practitioner: Carl Sosa, FINGER BUFF SEWER Physician: Mayco Nolen MD, FAANS IMPRESSION / [...] to the patient's understanding. Denies loss of basketballs and footballs reverser strength, saddle anesthesia, urinary or bowel dysfunction, [...] 03/25/2023 Performed by Johnathan Campbell DO at [facility] HERNIA REPAIR Left inguinal HIP SURGERY Left LAMINECTOMY LUMBAR MULTI LEVEL / L2-L5 N/A 12/25/2023 Performed by Mayco Nolen MD at [facility] PROSTATE BIOPSY PROSTATECTOMY [...] record of the patient encounter. Inadvertent computerized dividend deposit voucher clerk errors related to syntax, spelling, homophones, and/or inaudibility may be present. Scribe Statement: Scribed for and in the presence of Mayco Nolen MD by Cheo Rodriguez. Provider Statement: IMayco MD personally performed the services described in the documentation, as scribed by Joshua Higginbotham in my presence, and it is both accurate and complete Cheo Rodriguez 06/04/24 0804 JOESMANUEL Kirk 06/04/24 1157 documented in this encounter [facility] 06-04-2024 Instructions AINSLEY Szymanski - 06/04/2024 9:45 AM EDT Patient was seen today by Dr. Nolen. Patient will call in regards to Lumbar Fusion. JA documented in this encounter [facility] 04-28-2024 History of Present illness Narrative Images from the original note were not included. [address] [place] [id number] Patient: Regan Green Date of : 1950 Encounter Date: 04/28/2024 History of Present Illness: Chief Complaint: Follow up The patient is a 74 y.o. male, an established patient, and is here for He was diagnosed with adenocarcinoma prostate Gary 7 with 2 of 12 cores positive in 2017. He underwent open radical prostatectomy with bilateral pelvic lymph node dissection at [facility] in 2017. Final path T2N0. [...] 03/25/2023 Performed by Johnathan Campbell DO at [facility] HERNIA REPAIR Left inguinal HIP SURGERY Left LAMINECTOMY LUMBAR MULTI LEVEL / L2-L5 N/A 12/25/2023 Performed by Mayco Nolen MD at [facility] PROSTATE BIOPSY PROSTATECTOMY REVISION TOTAL KNEE [...] orders for this visit: Adenocarcinoma of prostate ([facility] Problem List Genitourinary Adenocarcinoma of prostate ([facility]) - Primary Overview T1c adenocarcinoma prostate [...] waiting. Given the Prolaris score and the [place] 7 I again told him that active [...] prostatectomy with bilateral pelvic lymph node dissection [facility]. Final pathology T2 N0 04/16/23: [...] for your understanding. documented in this encounter [facility] 04-27-2024 Miscellaneous Notes This nurse called the Pt. To remind him to get his PSA drawn for his appointment with MD Brian tomorrow. Pt. Did not answer, message was left on his answering machine. documented in this encounter [facility] 04-27-2024 Telephone encounter Note This nurse called the Pt. To remind him to get his PSA drawn for his appointment with MD Brian tomorrow. Pt. Did not answer, message was left on his answering machine. [facility] 04-23-2024 History of Present illness Narrative Images from the original note were not included. [facility] [address] [place] [address], [address] [place] [address] * CHART NOTE ? 04/23/2024 Patient: Regan Green 1950 [id number] Nurse Practitioner: Carl Sosa, FINGER BUFF SEWER Physician: Mayco Nolen MD, FAANS IMPRESSION / [...] is agreeable to them. Denies loss of basketballs and footballs reverser strength, saddle anesthesia, urinary or bowel dysfunction, [...] 03/25/2023 Performed by Johnathan Campbell DO at [facility] HERNIA REPAIR Left inguinal HIP SURGERY Left LAMINECTOMY LUMBAR MULTI LEVEL / L2-L5 N/A 12/25/2023 Performed by Mayco Nolen MD at [facility] PROSTATE BIOPSY PROSTATECTOMY [...] record of the patient encounter. Inadvertent computerized dividend deposit voucher clerk errors related to syntax, spelling, homophones, and/or inaudibility may be present. Scribe Statement: Scribed for and in the presence of Mayco Nolen MD by Joshua Higginbotham. Provider Statement: IMayco MD personally performed the services described in the documentation, as scribed by Joshua Higginbotham in my presence, and it is both accurate and complete documented in this encounter [facility] 04-23-2024 Instructions Desirae Dawn - 04/23/2024 9:30 AM EDT Patient seen today by Dr. Nolen Referral to Physical and aquatic therapy Referral to Pain management L4-5 Medrol dose pack Flexeril 10 mg Xray lumbar spine FLEX / EXT Patient to call to schedule follow up in 4 weeks KM documented in this encounter [facility] 02-12-2024 History of Present illness Narrative Images from the original note were not included. [facility] [address] [place] [address], [address] [place] [address] * CHART NOTE ? 02/12/2024 Patient: Regan Green 1950 [id number] Physician: Carl Sosa, FINGER BUFF SEWER CHIEF COMPLAINT Post op. HISTORY OF PRESENT [...] weakness in the RLE. Denies loss of basketballs and footballs reverser strength, saddle anesthesia, urinary or bowel dysfunction, [...] record of the patient encounter. Inadvertent computerized dividend deposit voucher clerk errors related to syntax, spelling, homophones, and/or inaudibility may be present. JOSEMANUEL Kirk 02/12/24 1039 documented in this encounter [facility] 02-12-2024 Instructions Desirae Dawn - 02/12/2024 9:15 AM EDT Patient was seen today by Misti. Lumbar flexion-extension x-rays. Medrol Dosepak. Refer to physical therapy. Lumbar MRI without contrast. Patient will follow up with Dr. Nolen, Neurosurgeon, once MRI is complete. documented in this encounter [facility] 12-27-2023 Nurse Note Discharge instructions provided to patient. Patient verbalized understanding, and denies any further concerns at this time. IV removed at time of discharged. Patient gathered belongings from room. Patient in no apparent distress. Patient taken to entrance b in a wheelchair with . [facility] 12-27-2023 Nurse Note Discharge instructions provided to patient. Patient verbalized understanding, and denies any further concerns at this time. IV removed at time of discharged. Patient gathered belongings from room. Patient in no apparent distress. Patient taken to entrance b in a wheelchair with . documented in this encounter [facility] 12-27-2023 Plan of care note Problem: Pain Goal: Patient goal is pain score less than 4, able to rest, and participant in treatment plan as appropriate Description: INTERVENTIONS: 1. Encourage patient or legal customer service representative teacher to report early pain and ask for [...] per policy 9. Teach patient or legal customer service representative teacher interventions for comforting 12/27/2023 1259 by MIREILLE [...] at the bedside 7. Instruct patient/ patient customer service representative teacher about use of safety devices 8. Include patient/ patient customer service representative teacher in decisions related to safety 12/27/2023 1259 [...] hygiene technique 7. Identify and instruct patient/patient customer service representative teacher in use of appropriate isolation precautions for identified infection/symptoms 8. Provide and discuss with patient/patient customer service representative teacher on educational MDRO sheet 9. Encourage and monitor nutritional status daily and consult fish hatchery specialist if indicated 10. Implement neutropenic guidelines as [...] care ongoing. Problem: Knowledge Deficit Goal: Patient/patient customer service representative teacher demonstrates understanding of disease process, treatment plan, [...] Score of =/> 25 or indicated by [facility] Assessment Goal: Patient should be free from fall Description: Interventions: 1. [place] to environment 2. Hourly rounds addressing the [...] non-skid footwear 11. Teach patient and patient customer service representative teacher to maintain environment for safety and engage [...] (cane, walker) within reach 19. Request patient customer service representative teacher bring adaptive equipment/mobility aids from home or obtain and provide as needed 20. Consult pharmacy regarding effects of med's affecting mobility, cognition, and alternatives 21. Obtain physician order for PT if risk factors associated with mobility are present 22. Obtain physician order for OT as appropriate 23. Utilize diversional activities 24. Educate patient and patient customer service representative teacher how to maintain a safe environment during visitation times (notify nurse prior to leaving bedside) 25. Consider appropriateness of medical or non-medical detailist 26. Set up voiding schedule as appropriate [...] progress towards goal: Plan of care ongoing. [facility] 12-27-2023 Miscellaneous Notes Problem: Pain Goal: Patient goal is pain score less than 4, able to rest, and participant in treatment plan as appropriate Description: INTERVENTIONS: 1. Encourage patient or legal customer service representative teacher to report early pain and ask for [...] per policy 9. Teach patient or legal customer service representative teacher interventions for comforting 12/27/2023 1259 by MIREILLE [...] at the bedside 7. Instruct patient/ patient customer service representative teacher about use of safety devices 8. Include patient/ patient customer service representative teacher in decisions related to safety 12/27/2023 1259 [...] hygiene technique 7. Identify and instruct patient/patient customer service representative teacher in use of appropriate isolation precautions for identified infection/symptoms 8. Provide and discuss with patient/patient customer service representative teacher on educational MDRO sheet 9. Encourage and monitor nutritional status daily and consult fish hatchery specialist if indicated 10. Implement neutropenic guidelines as [...] care ongoing. Problem: Knowledge Deficit Goal: Patient/patient customer service representative teacher demonstrates understanding of disease process, treatment plan, [...] Score of =/> 25 or indicated by [facility] Assessment Goal: Patient should be free from fall Description: Interventions: 1. [place] to environment 2. Hourly rounds addressing the [...] non-skid footwear 11. Teach patient and patient customer service representative teacher to maintain environment for safety and engage [...] (cane, walker) within reach 19. Request patient customer service representative teacher bring adaptive equipment/mobility aids from home or obtain and provide as needed 20. Consult pharmacy regarding effects of med's affecting mobility, cognition, and alternatives 21. Obtain physician order for PT if risk factors associated with mobility are present 22. Obtain physician order for OT as appropriate 23. Utilize diversional activities 24. Educate patient and patient customer service representative teacher how to maintain a safe environment during visitation times (notify nurse prior to leaving bedside) 25. Consider appropriateness of medical or non-medical detailist 26. Set up voiding schedule as appropriate [...] Description: INTERVENTIONS: 1. Encourage patient or legal customer service representative teacher to report early pain and ask for [...] per policy 9. Teach patient or legal customer service representative teacher interventions for comforting Outcome: Progressing Note: Evaluation [...] at the bedside 7. Instruct patient/ patient customer service representative teacher about use of safety devices 8. Include patient/ patient customer service representative teacher in decisions related to safety Outcome: Progressing [...] hygiene technique 7. Identify and instruct patient/patient customer service representative teacher in use of appropriate isolation precautions for identified infection/symptoms 8. Provide and discuss with patient/patient customer service representative teacher on educational MDRO sheet 9. Encourage and monitor nutritional status daily and consult fish hatchery specialist if indicated 10. Implement neutropenic guidelines as needed 11. Review exposure to history of communicable disease and recent travel history on admission 12. Encourage annual influenza vaccine 13. Encourage pneumonia vaccine Outcome: Progressing Note: Evaluation of progress towards goal: Patient denies fever. No purulent drainage noted at site. Plan of care ongoing. Problem: Knowledge Deficit Goal: Patient/patient customer service representative teacher demonstrates understanding of disease process, treatment plan, [...] Score of =/> 25 or indicated by [facility] Assessment Goal: Patient should be free from fall Description: Interventions: 1. [place] to environment 2. Hourly rounds addressing the [...] non-skid footwear 11. Teach patient and patient customer service representative teacher to maintain environment for safety and engage [...] (cane, walker) within reach 19. Request patient customer service representative teacher bring adaptive equipment/mobility aids from home or obtain and provide as needed 20. Consult pharmacy regarding effects of med's affecting mobility, cognition, and alternatives 21. Obtain physician order for PT if risk factors associated with mobility are present 22. Obtain physician order for OT as appropriate 23. Utilize diversional activities 24. Educate patient and patient customer service representative teacher how to maintain a safe environment during visitation times (notify nurse prior to leaving bedside) 25. Consider appropriateness of medical or non-medical detailist 26. Set up voiding schedule as appropriate [...] Description: INTERVENTIONS: 1. Encourage patient or legal customer service representative teacher to report early pain and ask for [...] per policy 9. Teach patient or legal customer service representative teacher interventions for comforting Outcome: Progressing Note: Evaluation [...] at the bedside 7. Instruct patient/ patient customer service representative teacher about use of safety devices 8. Include patient/ patient customer service representative teacher in decisions related to safety Outcome: Progressing [...] hygiene technique 7. Identify and instruct patient/patient customer service representative teacher in use of appropriate isolation precautions for identified infection/symptoms 8. Provide and discuss with patient/patient customer service representative teacher on educational MDRO sheet 9. Encourage and monitor nutritional status daily and consult fish hatchery specialist if indicated 10. Implement neutropenic guidelines as needed 11. Review exposure to history of communicable disease and recent travel history on admission 12. Encourage annual influenza vaccine 13. Encourage pneumonia vaccine Outcome: Progressing Note: Evaluation of progress towards goal: patient free from s/s of infection Problem: Knowledge Deficit Goal: Patient/patient customer service representative teacher demonstrates understanding of disease process, treatment plan, [...] Score of =/> 25 or indicated by [facility] Assessment Goal: Patient should be free from fall Description: Interventions: 1. [place] to environment 2. Hourly rounds addressing the [...] non-skid footwear 11. Teach patient and patient customer service representative teacher to maintain environment for safety and engage [...] (cane, walker) within reach 19. Request patient customer service representative teacher bring adaptive equipment/mobility aids from home or obtain and provide as needed 20. Consult pharmacy regarding effects of med's affecting mobility, cognition, and alternatives 21. Obtain physician order for PT if risk factors associated with mobility are present 22. Obtain physician order for OT as appropriate 23. Utilize diversional activities 24. Educate patient and patient customer service representative teacher how to maintain a safe environment during visitation times (notify nurse prior to leaving bedside) 25. Consider appropriateness of medical or non-medical detailist 26. Set up voiding schedule as appropriate [...] Description: INTERVENTIONS: 1. Encourage patient or legal customer service representative teacher to report early pain and ask for [...] per policy 9. Teach patient or legal customer service representative teacher interventions for comforting Outcome: Progressing Note: Evaluation [...] at the bedside 7. Instruct patient/ patient customer service representative teacher about use of safety devices 8. Include patient/ patient customer service representative teacher in decisions related to safety Outcome: Progressing [...] hygiene technique 7. Identify and instruct patient/patient customer service representative teacher in use of appropriate isolation precautions for identified infection/symptoms 8. Provide and discuss with patient/patient customer service representative teacher on educational MDRO sheet 9. Encourage and monitor nutritional status daily and consult fish hatchery specialist if indicated 10. Implement neutropenic guidelines as needed 11. Review exposure to history of communicable disease and recent travel history on admission 12. Encourage annual influenza vaccine 13. Encourage pneumonia vaccine Outcome: Progressing Note: Evaluation of progress towards goal: Patient is being monitored for s/sx of infection. Problem: Knowledge Deficit Goal: Patient/patient customer service representative teacher demonstrates understanding of disease process, treatment plan, [...] Score of =/> 25 or indicated by [facility] Assessment Goal: Patient should be free from fall Description: Interventions: 1. [place] to environment 2. Hourly rounds addressing the [...] non-skid footwear 11. Teach patient and patient customer service representative teacher to maintain environment for safety and engage [...] (cane, walker) within reach 19. Request patient customer service representative teacher bring adaptive equipment/mobility aids from home or obtain and provide as needed 20. Consult pharmacy regarding effects of med's affecting mobility, cognition, and alternatives 21. Obtain physician order for PT if risk factors associated with mobility are present 22. Obtain physician order for OT as appropriate 23. Utilize diversional activities 24. Educate patient and patient customer service representative teacher how to maintain a safe environment during visitation times (notify nurse prior to leaving bedside) 25. Consider appropriateness of medical or non-medical detailist 26. Set up voiding schedule as appropriate [...] SURGERY COLONOSCOPY COLONOSCOPY N/A 03/25/2023 Performed by Jonhathan Campbell DO at [facility] HERNIA REPAIR Left inguinal HIP SURGERY Left LAMINECTOMY LUMBAR MULTI LEVEL / L2-L5 N/A 12/25/2023 Performed by Mayco Nolen MD at [facility] BIOPSY PROSTATECTOMY [...] pass Equipment: RW, gait belt, wound drain Telemetry/Audio Visual Facilities Engineer: Yes Oxygen Used: room air Other: fall [...] Patient will perform bed mobility with Modified Aiken Dates: Start: 12/26/23 Expected End: 01/24/24 Description: Goal Description: with proper BUE placement and sequencing Disciplines: PT Problem: Gait Dates: Start: 12/26/23 Disciplines: PT Goal: Patient will perform gait with Modified Aiken Dates: Start: 12/26/23 Expected End: 01/24/24 Description: With__RW__,__150__feet Goal Description: with proper gait pattern and safety awareness Disciplines: PT Problem: Stairs/Curb Dates: Start: 12/26/23 Disciplines: PT Goal: Patient will perform stairs/curb with Modified Aiken Dates: Start: 12/26/23 Expected End: 01/24/24 Description: [...] Goal: Patient will perform transfers with Modified Aiken Dates: Start: 12/26/23 Expected End: 01/24/24 Description: [...] Description: INTERVENTIONS: 1. Encourage patient or legal customer service representative teacher to report early pain and ask for [...] per policy 9. Teach patient or legal customer service representative teacher interventions for comforting Outcome: Progressing Note: Evaluation [...] hygiene technique 7. Identify and instruct patient/patient customer service representative teacher in use of appropriate isolation precautions for identified infection/symptoms 8. Provide and discuss with patient/patient customer service representative teacher on educational MDRO sheet 9. Encourage and monitor nutritional status daily and consult fish hatchery specialist if indicated 10. Implement neutropenic guidelines as [...] Nolen MD - Primary Assistants: None Staff: Game Trapper Primary: Lily Glasgow RN Game Trapper Relief: Dina Roy RN Scrub Person: Janak [...] Implant Name Type Inv. Item Serial No. Communications Scientist Lot No. LRB No. Used Action PATCH DURA 1X1IN DRMTRX-ONLAY + CLGN RGNRT MEMBR STRL RPL [id number] - [id number] Graft PATCH DURA 1X1IN DRMTRX-ONLAY + CLGN RGNRT MEMBR STRL RPL [id number] PAULINA CRANIOMAXILLOFACIAL [id number] N/A 1 Implanted Estimated Blood Loss: 100 [...] no further orders documented in this encounter [facility] 12-27-2023 Hospital course Narrative Images from the original note were not included. [facility] [address] [place] [address], [address] [place] [address] * NEUROSURGERY DISCHARGE SUMMARY Patient: Regan Green Date of : 1950 Acct: [id number] Primary Care Physician: Sumanth Hill MD Admit [...] mg EC tablet Commonly known as: [facility] [employer] HEALTH ORAL OSTEO BI-FLEX ORAL oxyCODONE-acetaminophen 5-325 mg per tablet Commonly known as: PERCOCET tiZANidine 4 mg tablet Commonly known as: ZANAFLEX Where to Get Your Medications These medications were sent to [facility] [id number] [address] [place], [place] [id number] methocarbamoL 500 mg tablet naloxone 4 mg/actuation [...] acceptable and clinically appropriate. JOSEMANUEL Lainez Neurosurgery [facility] Patient Touch 12/27/23 12:28 PM JOSEMANUEL Sandoval 12/27/23 [id number] documented in this encounter [facility] 12-27-2023 Hospital Discharge instructions JOSEMANUEL Sandoval [...] remove at that time. Other Instructions: Call [facility] Neurosurgery with any questions, . The following attachments cannot be sent through Care Everywhere.Radiculopathy Discharge Instructions (Nepalese)documented in this encounter [facility] 12-27-2023 Plan of care note Problem: Pain Goal: Patient goal is pain score less than 4, able to rest, and participant in treatment plan as appropriate Description: INTERVENTIONS: 1. Encourage patient or legal customer service representative teacher to report early pain and ask for [...] per policy 9. Teach patient or legal customer service representative teacher interventions for comforting Outcome: Progressing Note: Evaluation [...] at the bedside 7. Instruct patient/ patient customer service representative teacher about use of safety devices 8. Include patient/ patient customer service representative teacher in decisions related to safety Outcome: Progressing [...] hygiene technique 7. Identify and instruct patient/patient customer service representative teacher in use of appropriate isolation precautions for identified infection/symptoms 8. Provide and discuss with patient/patient customer service representative teacher on educational MDRO sheet 9. Encourage and monitor nutritional status daily and consult fish hatchery specialist if indicated 10. Implement neutropenic guidelines as needed 11. Review exposure to history of communicable disease and recent travel history on admission 12. Encourage annual influenza vaccine 13. Encourage pneumonia vaccine Outcome: Progressing Note: Evaluation of progress towards goal: Patient denies fever. No purulent drainage noted at site. Plan of care ongoing. Problem: Knowledge Deficit Goal: Patient/patient customer service representative teacher demonstrates understanding of disease process, treatment plan, [...] Score of =/> 25 or indicated by [facility] Assessment Goal: Patient should be free from fall Description: Interventions: 1. [place] to environment 2. Hourly rounds addressing the [...] non-skid footwear 11. Teach patient and patient customer service representative teacher to maintain environment for safety and engage [...] (cane, walker) within reach 19. Request patient customer service representative teacher bring adaptive equipment/mobility aids from home or obtain and provide as needed 20. Consult pharmacy regarding effects of med's affecting mobility, cognition, and alternatives 21. Obtain physician order for PT if risk factors associated with mobility are present 22. Obtain physician order for OT as appropriate 23. Utilize diversional activities 24. Educate patient and patient customer service representative teacher how to maintain a safe environment during visitation times (notify nurse prior to leaving bedside) 25. Consider appropriateness of medical or non-medical detailist 26. Set up voiding schedule as appropriate [...] progress towards goal: [facility] Progress note Formatting of t his note is different from the original. Physical Therapy CANCEL - Deferred Per RN pt is dizzy and diaphoretic laying supine in bed. Will hold PT treatment and attempt to complete session as able. [facility] [employer] 12-27-2023 History of Present illness Narrative Images from the original note were not included. [facility] [address] [place] [address], [address] [place] [address] * NEUROSURGERY DAILY PROGRESS NOTE DATE:12/27/2023 PATIENT'S [...] - Home later today JOSEMANUEL Lainez Neurosurgery [facility] Patient Touch 12/27/23 6:04 AM To find out which ESTEFANY is on for the day please go to [email or web address] and use log in [facility] and search for PTH Neurosurgery JOSEMANUEL Sandoval 12/26/23 1010 JOSEMANUEL Sandoval 12/27/23 1228 Images from the original note were not included. [facility] [address] [place] [address], [address] [place] [address] * NEUROSURGERY DAILY PROGRESS NOTE DATE:12/26/2023 PATIENT'S [...] later vs in AM JOSEMANUEL Lainez Neurosurgery [facility] Patient Touch 12/26/23 9:51 AM To find out which ESTEFANY is on for the day please go to [email or web address] and use log in [facility] and search for PTH Neurosurgery JOSEMANUEL Sandoval 12/26/23 1010 documented in this encounter [facility] 12-27-2023 Plan of care note Problem: Pain Goal: Patient goal is pain score less than 4, able to rest, and participant in treatment plan as appropriate Description: INTERVENTIONS: 1. Encourage patient or legal customer service representative teacher to report early pain and ask for [...] per policy 9. Teach patient or legal customer service representative teacher interventions for comforting Outcome: Progressing Note: Evaluation [...] at the bedside 7. Instruct patient/ patient customer service representative teacher about use of safety devices 8. Include patient/ patient customer service representative teacher in decisions related to safety Outcome: Progressing [...] hygiene technique 7. Identify and instruct patient/patient customer service representative teacher in use of appropriate isolation precautions for identified infection/symptoms 8. Provide and discuss with patient/patient customer service representative teacher on educational MDRO sheet 9. Encourage and monitor nutritional status daily and consult fish hatchery specialist if indicated 10. Implement neutropenic guidelines as needed 11. Review exposure to history of communicable disease and recent travel history on admission 12. Encourage annual influenza vaccine 13. Encourage pneumonia vaccine Outcome: Progressing Note: Evaluation of progress towards goal: patient free from s/s of infection Problem: Knowledge Deficit Goal: Patient/patient customer service representative teacher demonstrates understanding of disease process, treatment plan, [...] Score of =/> 25 or indicated by [facility] Assessment Goal: Patient should be free from fall Description: Interventions: 1. [place] to environment 2. Hourly rounds addressing the [...] non-skid footwear 11. Teach patient and patient customer service representative teacher to maintain environment for safety and engage [...] (cane, walker) within reach 19. Request patient customer service representative teacher bring adaptive equipment/mobility aids from home or obtain and provide as needed 20. Consult pharmacy regarding effects of med's affecting mobility, cognition, and alternatives 21. Obtain physician order for PT if risk factors associated with mobility are present 22. Obtain physician order for OT as appropriate 23. Utilize diversional activities 24. Educate patient and patient customer service representative teacher how to maintain a safe environment during visitation times (notify nurse prior to leaving bedside) 25. Consider appropriateness of medical or non-medical detailist 26. Set up voiding schedule as appropriate [...] goal: patient maintaining body alignment per self [facility] [employer] 12-26-2023 Plan of care note Problem: Pain Goal: Patient goal is pain score less than 4, able to rest, and participant in treatment plan as appropriate Description: INTERVENTIONS: 1. Encourage patient or legal customer service representative teacher to report early pain and ask for [...] per policy 9. Teach patient or legal customer service representative teacher interventions for comforting Outcome: Progressing Note: Evaluation [...] at the bedside 7. Instruct patient/ patient customer service representative teacher about use of safety devices 8. Include patient/ patient customer service representative teacher in decisions related to safety Outcome: Progressing [...] hygiene technique 7. Identify and instruct patient/patient customer service representative teacher in use of appropriate isolation precautions for identified infection/symptoms 8. Provide and discuss with patient/patient customer service representative teacher on educational MDRO sheet 9. Encourage and monitor nutritional status daily and consult fish hatchery specialist if indicated 10. Implement neutropenic guidelines as needed 11. Review exposure to history of communicable disease and recent travel history on admission 12. Encourage annual influenza vaccine 13. Encourage pneumonia vaccine Outcome: Progressing Note: Evaluation of progress towards goal: Patient is being monitored for s/sx of infection. Problem: Knowledge Deficit Goal: Patient/patient customer service representative teacher demonstrates understanding of disease process, treatment plan, [...] be free from fall Description: Interventions: 1. [place] to environment 2. Hourly rounds addressing the [...] non-skid footwear 11. Teach patient and patient customer service representative teacher to maintain environment for safety and engage [...] (cane, walker) within reach 19. Request patient customer service representative teacher bring adaptive equipment/mobility aids from home or obtain and provide as needed 20. Consult pharmacy regarding effects of med's affecting mobility, cognition, and alternatives 21. Obtain physician order for PT if risk factors associated with mobility are present 22. Obtain physician order for OT as appropriate 23. Utilize diversional activities 24. Educate patient and patient customer service representative teacher how to maintain a safe environment during visitation times (notify nurse prior to leaving bedside) 25. Consider appropriateness of medical or non-medical detailist 26. Set up voiding schedule as appropriate [...] towards goal: Patient maintains proper anatomical alignment. [facility] [employer] 12-26-2023 Progress note Formatting of t his [...] 03/25/2023 Performed by Johnathan Campbell DO at [facility]IA REPAIR Left inguinal HIP SURGERY Left LAMINECTOMY LUMBAR MULTI LEVEL / L2-L5 N/A 12/25/2023 Performed by Mayco Nolen MD at [facility] BIOPSY PROSTATECTOMY [...] pass Equipment: RW, gait belt, wound drain Telemetry/Audio Visual Facilities Engineer: Yes Oxygen Used: room air Other: fall [...] Patient will perform bed mobility with Modified Aiken Dates: Start: 12/26/23 Expected End: 01/24/24 Description: Goal Description: with proper BUE placement and sequencing Disciplines: PT Problem: Gait Dates: Start: 12/26/23 Disciplines: PT Goal: Patient will perform gait with Modified Aiken Dates: Start: 12/26/23 Expected End: 01/24/24 Description: With__RW__,__150__feet Goal Description: with proper gait pattern and safety awareness Disciplines: PT Problem: Stairs/Curb Dates: Start: 12/26/23 Disciplines: PT Goal: Patient will perform stairs/curb with Modified Aiken Dates: Start: 12/26/23 Expected End: 01/24/24 Description: [...] Goal: Patient will perform transfers with Modified Aiken Dates: Start: 12/26/23 Expected End: 01/24/24 Description: Goal Description: with proper BUE placement and sequencing Disciplines: PT Physical Therapy Care Plan (Resolved) There are no resolved problems. Principal Problem: Radiculopathy, lumbar region Active Problems: Neurogenic claudication [facility] 12-26-2023 Progress note Formatting of [...] smoking, drinking alcohol or doing illciit drugs. [facility] 12-26-2023 Plan of care note Problem: Pain Goal: Patient goal is pain score less than 4, able to rest, and participant in treatment plan as appropriate Description: INTERVENTIONS: 1. Encourage patient or legal customer service representative teacher to report early pain and ask for [...] per policy 9. Teach patient or legal customer service representative teacher interventions for comforting Outcome: Progressing Note: Evaluation [...] hygiene technique 7. Identify and instruct patient/patient customer service representative teacher in use of appropriate isolation precautions for identified infection/symptoms 8. Provide and discuss with patient/patient customer service representative teacher on educational MDRO sheet 9. Encourage and monitor nutritional status daily and consult fish hatchery specialist if indicated 10. Implement neutropenic guidelines as [...] of progress towards goal: progressing with walker [facility] [employer] 12-25-2023 Procedure note NEUROSURGERY OPERATIVE NOTE Patient [...] [place] punches. I then checked with a [place] elevator and confirmed that there was no [...] room with stable vital signs. Complications: None. [facility] 12-25-2023 Procedure note Brief Post-op Note NAME: Regan Green : 1950 PROCEDURE DATE: 12/25/2023 Surgeon: Surgeon(s) and Role: * Mayco Nolen MD - Primary Assistants: None Staff: Game Trapper Primary: Lily Glasgow RN Game Trapper Relief: Dina Roy RN Scrub Person: Janak [...] Implant Name Type Inv. Item Serial No. Communications Scientist Lot No. LRB No. Used Action PATCH DURA 1X1IN DRMTRX-ONLAY + CLGN RGNRT MEMBR STRL RPL [id number] - [id number] Graft PATCH DURA 1X1IN DRMTRX-ONLAY + CLGN RGNRT MEMBR STRL RPL [id number] PAULINA CRANIOMAXILLOFACIAL [id number] N/A 1 Implanted Estimated Blood Loss: 100 ml OB Surgical Procedure Blood Loss: Anesthesia EBL: * No values recorded between 12/25/2023 3:09 PM and 12/25/2023 4:54 PM * OB QBL: * No values recorded between 12/25/2023 3:09 PM and 12/25/2023 4:54 PM * Condition: stable Findings: severe lateral recess stenosis [facility] 12-25-2023 Attending History and physical note HISTORY AND PHYSICAL INTERVAL NOTE: Regan Green 1950 [id number] H&P reviewed. The patient was examined and there are no changes to the H&P. Mayco Nolen MD Source Note - JOSEMANUEL Daniels - 12/20/2023 6:12 PM EST Letter to pain management seeking clarification on post operative pain medications. JOSEMANUEL [facility] Contact via patient touch 12/20/23 6:21 PM To find out which ESTEFANY is on for the day please go to [email or web address] and use log in [facility] and search for PTH Neurosurgery (ESTEFANY and Phone Number is listed) JOSEMANUEL Daniels 12/20/23 1821 JOSEMANUEL Daniels 12/25/23 1330 [facility] 12-25-2023 History and physical note HISTORY AND PHYSICAL INTERVAL NOTE: Regan Green 1950 [id number] H&P reviewed. The patient was examined and there are no changes to the H&P. Mayco Nolen MD Source Note - JOSEMANUEL Daniels - 12/20/2023 6:12 PM EST Letter to pain management seeking clarification on post operative pain medications. JOSEMANUEL [facility] Neurosurgery Contact via patient touch 12/20/23 6:21 PM To find out which ESTEFANY is on for the day please go to [email or web address] and use log in [facility] and search for PTH Neurosurgery (ESTEFANY and Phone Number is listed) JOSEMANUEL Daniels 12/20/23 1821 JOSEMANUEL Daniels 12/25/23 1330 documented in this encounter [facility] 12-24-2023 Miscellaneous Notes I spoke to Kenneth to explain how Medicare authorizes surgeries. Reminded Kenneth of surgery tomorrow 12/25/23 at 2:45pm with TTH arrival time of 12:45 pm documented in this encounter [facility] 12-24-2023 Telephone encounter Note I spoke to Kenneth to explain how Medicare authorizes surgeries. Reminded Kenneth of surgery tomorrow 12/25/23 at 2:45pm with TTH arrival time of 12:45 pm [facility] 12-24-2023 Nurse Note Anesthesia review: Parveen Patel: 12/25: TTH: GA. only hx prostate CA. No c/o CP or SOB. EKGs: LAst PCP note Reviewed and accepted by Dr Vásquez with no further orders [facility] 12-20-2023 Miscellaneous Notes Patient called to advise office that he does not need surgery clearance from PCP. documented in this encounter [facility] 12-20-2023 Telephone encounter Note Patient called to advise office that he does not need surgery clearance from PCP. [facility] 12-20-2023 History and physical note PRE-ADMISSION TESTING HISTORY AND PHYSICAL EXAM DATE: 12/20/23 PCP: Sumanth Hill MD CHIEF COMPLAINT: back pain HISTORY OF PRESENT ILLNESS: Regan Green, a 73 y.o. White or male, presents to [facility] for a pre-surgical H&P. The patient has [...] 03/25/2023 Performed by Johnathan Campbell DO at [facility] HERNIA REPAIR Left inguinal HIP SURGERY [...] the most recent lab values available in [facility] at the time of the office visit. PAT labs are pending per surgeon. ASSESSMENT / DIAGNOSIS: Linked DX: Radiculopathy, lumbar region [M54.16] PLAN: Regan Green is scheduled for Linked Case Date: 12/25/2023 Linked Surgeon: Forrest Nolen MD Linked Surgery: Laminectomy Lumbar Multi Level / L2-L5. JOSEMANUEL Santoyo 12/20/23 1511 [facility] 12-20-2023 History and physical note PRE-ADMISSION TESTING HISTORY AND PHYSICAL EXAM DATE: 12/20/23 PCP: Sumanth Hill MD CHIEF COMPLAINT: back pain HISTORY OF PRESENT ILLNESS: Regan Green, a 73 y.o. White or male, presents to [facility] for a pre-surgical H&P. The patient has [...] 03/25/2023 Performed by Johnathan Campbell DO at [facility] HERNIA REPAIR Left inguinal HIP SURGERY [...] the most recent lab values available in [facility] at the time of the office visit. PAT labs are pending per surgeon. ASSESSMENT / DIAGNOSIS: Linked DX: Radiculopathy, lumbar region [M54.16] PLAN: Regan Green is scheduled for Linked Case Date: 12/25/2023 Linked Surgeon: Forrest Nolen MD Linked Surgery: Laminectomy Lumbar Multi Level / L2-L5. JOSEMANUEL Santoyo 12/20/23 1511 documented in this encounter [facility] 12-20-2023 Instructions Antonia Rosario RN - 12/20/2023 1:45 PM EST Your surgery/procedure is scheduled at [facility] on 12/25 at 2:45 Arrival Time 12:45 [facility] Address: [address] [place] [address] Park in P1 Parking lot located on [facility]. Report to the Entrance B. Check in at the information desk the surgery. The waiting room located on the second floor. If you have any questions prior to surgery, please call Pre-Admission Clinic at [phone] between 7:30 am and 4:30 pm Saturday through Saturday. If you have questions the morning of surgery, please call the Pre-op Department at [phone]. Notify your SURGEON if you develop any [...] like to schedule therapy at a [facility] facility, please call [address] [place] [address] ([phone]). Do not use lotions, creams, powders, perfume, make up, cologne or after-shaves day of surgery. Remove ALL jewelry including wedding rings, body piercings,hair extensions that contain metal, nail nicaraguan, make-up, and contact lens. You may brush [...] RIGHTS AND RESPONSIBILITIES As a patient at [facility], you have the right to: Receive medical care and be informed of who is taking care of you Be treated with dignity and respect Have a family member/customer service representative teacher of choice and your physician notified of your admission Receive information and actively participate in decisions about your care and treatment Refuse care, treatment and services Decide who may provide your support and speak for you Access buddhism and spiritual services Participate in ethical issues [...] of hospital charges and payment methods Patient/patient customer service representative teacher responsibilities are to: Provide information about health [...] in clean clothes. documented in this encounter [facility] 12-18-2023 History of Present illness Narrative [...] 10/04/23 no acute pulmonary pathology JOSEMANUEL [facility] Contact via patient touch 12/21/23 6:10 AM To find out which ESTEFANY is on for the day please go to [email or web address] and use log in [facility] and search for [facility] Neurosurgery (ESTEFANY and Phone Number is listed) JOSEMANUEL Daniels 12/25/23 5440 documented in this encounter [facility] 12-10-2023 Miscellaneous Notes Regan calls [...] would have to speak with Dr. Nolen central scheduler about surgery. Patient transferred to Dr. Nolen central scheduler. documented in this encounter [facility] 12-10-2023 Telephone encounter Note Regan calls [...] would have to speak with Dr. Nolen central scheduler about surgery. Patient transferred to Dr. Nolen central scheduler. [facility] 11-27-2023 Miscellaneous Notes Kenneth left a message to ask how many physical therapy visits he should try to complete before scheduling surgery. Left message for Kenneth to let him know at least six visits usually show good effort but if these are unsuccessful he needs to make sure the physical therapist is documenting increase of pain or ineffectiveness. documented in this encounter [facility] 11-27-2023 Telephone encounter Note Kenneth left a message to ask how many physical therapy visits he should try to complete before scheduling surgery. [facility] 11-27-2023 Telephone encounter Note Left message for Kenneth to let him know at least six visits usually show good effort but if these are unsuccessful he needs to make sure the physical therapist is documenting increase of pain or ineffectiveness. [facility] 11-14-2023 History of Present illness Narrative Images from the original note were not included. [facility] [address] [place] [address], [address] [place] [address] * CHART NOTE ? 11/14/2023 Patient: Regan Green 1950 [id number] Nurse Practitioner: Carl Sosa, FINGER BUFF SEWER Physician: Mayco Nolen MD, FAANS CHIEF COMPLAINT [...] He was seen by [facility] in [place], but was advised they could no longer help. He has not had any interventional pain procedures, but was seen at [facility] in [place], [place], but was advised he should be seen here first. Patient's imaging was discussed and reviewed to their understanding in office today. Patient has not yet exhausted all conservative measures of treatment and is agreeable to them namely CHANTELLE. Denies loss of basketballs and footballs reverser strength, saddle anesthesia, urinary or bowel dysfunction, [...] Medical History: Diagnosis Date Carcinoma of prostate ([facility]) Diverticulitis Diverticulosis Fecal impaction ([facility]) Inflammation of sacroiliac joint ([facility]) Knee pain Low back pain Lumbar disc disorder Osteoarthritis Shingles UTI (urinary tract infection) Visual impairment PAST SURGICAL HISTORY Past Surgical History: Procedure Laterality Date ABDOMINAL ADHESION SURGERY COLONOSCOPY COLONOSCOPY N/A 03/25/2023 Performed by Johnathan Campbell DO at [facility] HERNIA REPAIR Left inguinal HIP SURGERY [...] Right achilles 2+ Left achilles 2+ Right basketballs and footballs reverser 2+ Left basketballs and footballs reverser 2+ Right Mack reflex absent and left [...] visible abscess or suspicious gas within the syhxx-ew-dwcc Close clinical follow-up and short-term progress repeat [...] but was seen at [facility] in [place], [place], but was advised he should be [...] record of the patient encounter. Inadvertent computerized dividend deposit voucher clerk errors related to syntax, spelling, homophones, and/or inaudibility may be present. Scribe Statement: Scribed for and in the presence of JOSEMANUEL Kirk by Joshua Higginbotham. JOSEMANUEL Kirk 11/14/23 1630 documented in this encounter [facility] 11-14-2023 Instructions AINSLEY Szymanski - 11/14/2023 9:30 AM EST Patient was seen by Dr. Nolen and JOSEMANUEL Chappell Patient was given an order for an x ray Lumbar spine Flex/Ext Medrol pack Physical therapy Referral for Lumbar to PT services Pain management referral for Lumbar L3-4 Patient will follow up after Pain management JA documented in this encounter [facility] 11-05-2023 Miscellaneous Notes ED Outreach This documentation is being used for Transition of Care purposes: Yes/No: Yes ED Outreach Date: November 05, 2023 ED Outreach Method: COMMUNICATION METHOD: Telephone ED Outreach Attempt: first ED Outreach Outcome: Contacted Patient Name of ED Facility: [facility] Date of ED Discharge: 10/31/2023 [...] with additional concerns. documented in this encounter [facility] 11-05-2023 Telephone encounter Note ED Outreach This documentation is being used for Transition of Care purposes: Yes/No: Yes ED Outreach Date: November 05, 2023 ED Outreach Method: COMMUNICATION METHOD: Telephone ED Outreach Attempt: first ED Outreach Outcome: Contacted Patient Name of ED Facility: [facility] Date of ED Discharge: 10/31/2023 [...] will contact the office with additional concerns. [facility] [employer] 10-30-2023 Evaluation note Encounter Date Diagnosis Assessment [...] pain of right shoulder (ICD-10 - M25.511) [employer] Other 12-19-2023 NoteCT LUMBAR SPINE WO CONT [...] abscess or suspicious gas visible within the zxzam-st-wyhq. Repeat contrast abdominal pelvic CT may prove useful in combination with colonic screening with appropriate Probable parapelvic cysts in the left kidney Prominent vascular calcifications There is some metal artifact related to a prior surgery at the left acetabular region. There are also clips in the low pelvis as seen on the quality assurance analyst image Sagittal images include from the lower [...] visible abscess or suspicious gas within the sznyg-th-cjeq Close clinical follow-up and short-term progress repeat abdominal pelvic contrast CT and colonic screening considered There is also be severe degenerative change of the lumbar spine and relatively severe canal and neural foraminal stenosis probably greatest at L3-4 and L4-5 levels There is no compression deformity or destructive bone process Finalized by Renaldo Tinajero MD on 10/22/2023 1:09 [facility] 08-20-2023 Evaluation note* Encounter Date Diagnosis Assessment Notes Treatment Notes Treatment Clinical Notes Aug, Primary osteoarthrit is of first carpometacarpal joint of left hand (ICD-10 - M18.12) We performed a cortisone injection into the CMC joint under sterile technique. The patient tolerated this well without complication. We discussed that the finger may feel numb and tingle for hours after this injection. 17 Oct, 2023 Sprain of other part of right shoulder region, initial encounter (ICD-10 - S43.491A) Aug, Contusion of right shoulder, initial encounter (ICD-10 - S40.011A) Aug, Arthritis of right shoulder region (ICD-10 - M19.011) Aug, Subacromial impingement of right shoulder (ICD-10 - M75.41) Aug, Acute pain of right shoulder (ICD-10 - M25.511) [employer] Other 09-19-2023 Evaluation note* Encounter Date Diagnosis [...] pain of right shoulder (ICD-10 - M25.511) [employer] Other 08-21-2023 Evaluation note* Encounter Date Diagnosis [...] impingement of right shoulder (ICD-10 - M75.41) 21 Aug, 2023 Acute pain of right shoulder (ICD-10 - M25.511) [employer] Other 07-18-2023 Evaluation note* Encounter Date Diagnosis [...] given order for occupational therapy and braces [employer] Other 05-16-2023 NoteCONSULTATION CONSULTATION DATE: 03/19/2023 TO: [...] our patients to inform us about any dhuf-nwn-eqiinqa medications or herbal remedies/nutritional supplements/alternative remedies. 2. [...] options with their primary care provider.[facility] [id number] Note CONSULTATION PROCEDURE DATE: 02/21/2023 PROCEDURE: Right [...] He was discharged after meeting criteriaThe [facility] [id number] NoteCONSULTATION CONSULTATION DATE: 12/18/2022 CHIEF COMPLAINT: Left [...] would like to proceed. CC: Sumanth Hill M.D.[facility]02-14-2023 NoteCONSULTATION PROCEDURE DATE: 12/18/2022 PREOPERATIVE DIAGNOSIS: Osteoarthritis [...] be followed up in the office.[facility] [id number] NoteCONSULTATION CONSULTATION DATE: 11/22/2022 HISTORY OF PRESENT [...] food. We will send a referral to [facility] to have his left CMC joint evaluated. Patient does agree with this, and we will follow him up in the clinic in three months' time.[facility] [id number] NotePROCEDURE: XR HAND LT MIN 3V HISTORY: [...] authenticated by: ALESSANDRO MEJIA Date: 2022-09-26 22:39[facility] [id number] NoteCONSULTATION CONSULTATION DATE: 09/20/2022 HISTORY OF PRESENT [...] mg t.i.d., Percocet 5/325 b.i.d., multivitamin and Rvwhe-Qj-Uzwc. Patient, procedure-holloway, had radiofrequency ablation of his [...] the clinic thereafter for follow up.[facility] [id number] NoteCONSULTATION CONSULTATION DATE: 08/02/2022 HISTORY OF PRESENT [...] care and all questions were answered.[facility] [id number] NoteCONSULTATION CONSULTATION DATE: 06/14/2022 This is a [...] and Achilles reflexes are +2. DIAGNOSIS: Code [facility] is 724.6. PLAN: We will authorize for a left SI joint injection, refill his Percocet 5/325 b.i.d. and refill Diclofenac 50 mg t.i.d. He is compliant with his vitamin regimen. At this time, I reiterated the use of heat and stretches. The patient will be followed in the clinic post-procedure and agrees to move forward.[facility] HospitalEvaluation noteNo assessment information available [facility] Work Phone: Evaluation note* Diagnosis Onset Date Resolution Status Left hand pain acute 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, left hand acute [facility] Work Phone: Evaluation note* Diagnosis Onset Date Resolution Status Left hand pain acute 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, left hand acute Left hand pain acute 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, left hand acute [facility] Work Phone: Evaluation note* Diagnosis Spondylolisthesis of lumbar region- Primary Acquired spondylolisthesis Abnormal findings on diagnostic imaging of other parts of musculoskeletal system [facility] Diagnosis Spondylolisthesis of lumbar region Acquired spondylolisthesis Abnormal findings on diagnostic imaging of other parts of musculoskeletal system documented in this encounter [facility] note* Diagnosis Lumbar radiculopathy, chronic- Primary [facility] Diagnosis Neurogenic claudication- Primary Spinal stenosis of lumbar region Lumbar radiculopathy, chronic [facility]* Diagnosis Radiculopathy, lumbar region Thoracic or [...] of lumbar region [facility]* Diagnosis Adenocarcinoma of prostate ([facility])- Primary Malignant neoplasm of prostate Spondylolisthesis of lumbar region [facility]* Diagnosis Spondylolisthesis of lumbar region- Primary Status post lumbar laminectomy Radiculopathy, lumbar region Thoracic or lumbosacral neuritis or radiculitis, unspecified Spondylolisthesis of lumbar region documented in this [facility]* Diagnosis Radiculopathy, lumbar region- Primary Thoracic or lumbosacral neuritis or radiculitis, unspecified Radiculopathy, lumbar region Thoracic or lumbosacral neuritis or radiculitis, unspecified Neurogenic claudication Spinal stenosis of lumbar region Neurogenic claudication Spinal stenosis of lumbar region [facility] Diagnosis Spondylolisthesis of lumbar region- Primary [facility] Diagnosis Status post lumbar laminectomy- Primary Low back pain, non-specific Leg pain, right Pain in soft tissues of limb Weakness of right lower extremity Sensory deficit, right [facility]* Diagnosis Routine general medical examination at a health care facility- Primary Lumbar radiculopathy, chronic Spondylolisthesis of lumbar region Pure hypercholesterolemia Adenocarcinoma of prostate ([facility]) Malignant neoplasm of prostate [facility]* Diagnosis Spondylolisthesis of lumbar region- Primary Acquired spondylolisthesis Abnormal findings on diagnostic imaging of other parts of musculoskeletal system documented [facility]* Diagnosis Onset Date Resolution Status Admit Date Left hand pain acute January 9:17am 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, left hand acute January 26, 2025 9:17am [facility] Work Phone: History general Narrative - Reported* Type Description Date Medical History post knee right replacement Surgical History knee replacement right Surgical History hernia Surgical History prostatectomy Surgical History acetabulum fx Hospitalization History see above [employer] Other InstructionsNot on filedocumented in this encounter [facility] SystemInstructionsNot on filedocumented in this encounter [facility] SystemInstructionsNot on filedocumented in this encounter [facility] SystemInstructionsNot on filedocumented in this encounter [facility]ructionsNot on filedocumented in this encounter [facility] SystemInstructionsNot on filedocumented in this encounter [facility] SystemInstructionsNot on filedocumented in this encounter [facility] SystemReason for referral (narrative)* Diagnostic Procedure Only (Routine) - Authorized Specialty Diagnoses / Procedures Referred By Contact Referred To Contact MOLECULAR & FUNCTIONAL IMAGING Diagnoses Abnormal findings on diagnostic imaging of other parts of musculoskeletal system Procedures NM BONE 3 PHASE BONE &/JOINT IMAGING 3 PHASE STUDY Johnathan Kraus MD [address] [place] [address] Molecular & Functional Imaging [address] [place] [address] Referral ID Status Reason Start Date Expiration Date Visits Requested Visits Authorized [id number] Authorized Auto-Generat ed Referral 11/25/2024 12/25/2025 1 1 * Diagnostic Procedure Only (Routine) - Authorized Specialty Diagnoses / Procedures Referred By Contac t Referred To Contact MOLECULAR & FUNCTIONAL IMAGING Diagnoses Spondylolisthesis of lumbar region Procedures NM BONE SPECT RP LOCLZJ BERENICE SPECT W/CT 1 AREA 1 DAY IMAGING Johnathan Kraus MD [address] [address] Molecular & Functional Imaging [address] [place] [address] Referral ID Status Reason Start Date Expiration Date Visits Requested Visits Authorized [id number] Authorized Auto-Generat ed Referral 11/25/2024 12/25/2025 1 1 [facility] for referral (narrative)* Diagnostic Procedure Only (Routine) - Closed Specialty Diagnoses / Procedures Referred By Contact Referred To Contact MOLECULAR & FUNCTIONAL IMAGING Diagnoses Abnormal findings on diagnostic imaging of other parts of musculoskeletal system Procedures NM BONE 3 PHASE BONE &/JOINT IMAGING 3 PHASE STUDY Jonhathan Kraus MD [address] [place] [address] Molecular & Functional Imaging [address] [place] [address] Referral ID Status Reason Start Date Expiration Date V isits Requested Visits Authorized [id number] Closed Auto-Generate d Referral 11/25/2024 12/25/2025 1 1 * Diagnostic Procedure Only (Routine) - Closed Specialty Diagnoses / Procedures Referred By Contac t Referred To Contact MOLECULAR & FUNCTIONAL IMAGING Diagnoses Spondylolisthesis of lumbar region Procedures NM BONE SPECT RP LOCLZJ BERENICE SPECT W/CT 1 AREA 1 DAY IMAGING Johnathan Kraus MD [address] [facility] [address] [place] [address] Molecular & Functional Imaging [address] [place] [address] Referral ID Status Reason Start Date Expiration Date V isits Requested Visits Authorized [id number] Closed Auto-Generate d Referral 11/25/2024 12/25/2025 1 1 [facility] for referral (narrative)* Consultation (Routine) - Pending Review Specialty Diagnoses / Procedures Referred By Contac t Referred To Contact Neurosurgery Diagnoses Lumbar radiculopathy, chronic Sumanth Hill MD [address] [place] [address] [place] [address] [place] [phone] Referral ID Status Reason Start Date Expiration Date Visits Requested Visits Authorized [id number] Pending Review Specialty Services Required 11/05/2023 11/04/2024 1 1 [facility])* Consultation (Routine) - Pending Review Specialty Diagnoses / Procedures Referred By Contac t Referred To Contact Pain Medicine Diagnoses Lumbar radiculopathy, chronic Neurogenic claudication Carl Sosa APRN-CNP [address] [facility] [address] [place] [address] [address] Referral ID Status Reason Start Date Expiration Date V isits Requested Visits Authorized [id number] Pending Review 11/14/2023 11/13/2024 1 1 * Physical Therapy (Routine) - Pending Review Specialty Diagnoses / Procedures Referred By Contac t Referred To Contact Rehabilitation Diagnoses Lumbar radiculopathy, chronic Neurogenic claudication Carl Sosa APRN-CNP [address] [facility] [address] [place] [address] PT SERVICES REHIBILITATION [address] [place] [phone] Referral ID Status Reason Start Date Expiration Date Visits Requested Visits Authorized [id number] Pending Review Specialty Services Required 11/14/2023 11/13/2024 1 1 [facility] Consultation (Routine) - Pending Review Specialty Diagnoses / Procedures Referred By Contac t Referred To Contact Pain Medicine Diagnoses Spondylolisthesis of lumbar region Mayco Nolen MD [address] [facility] [address] [place] [address] James Ly MD [address] [facility] COMPREHENSIVE LABORATORY TECHNOLOGY TE[employer] [place] [address] Referral ID Status Reason Start Date Expiration Date V isits Requested Visits Authorized [id number] Pending Review 04/23/2024 04/23/2025 1 1 * (Routine) - Pending Review Specialty Diagnoses / Procedures Referred By Contac t Referred To Contact Rehabilitation Diagnoses Spondylolisthesis of lumbar region Mayco Nolen MD [address] [place] [address] [address] [place] [phone] Referral ID Status Reason Start Date Expiration Date Visits Requested Visits Authorized [id number] Pending Review Specialty Services Required 04/23/2024 10/23/2024 1 1 [facility] Summary Purpose Family History No Family [...] first carpometacarpal joint, left hand Chief Complaint Admit Date 3 MONTHS January 26, 2025 9:1 7am Reason for Visit Admit Date Left hand pain January 26, 2025 9:1 7am 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, left hand January 26, 2025 9:17am Reason for Referral Specialty Diagnoses / Procedures Referred By Gaston borges Referred To Contact Rehabilitation Diagnoses Status post lumbar laminectomy Leg pain, right Weakness of right lower extremity Carl Sosa APRN-FINGER BUFF SEWER [address] [address] [facility] [address] [place] [address] Referral ID Status Reason Start Date Expiration Date Visits Requested Visits Authorized [id number] Authorized Specialty Services Required 02/12/2024 02/11/2025 1 1 Specialty Diagnoses / Procedures Referred By Gaston borges Referred To Contact Radiology Diagnoses Status post lumbar laminectomy Low back pain, non-specific Leg pain, right Weakness of right lower extremity Sensory deficit, right Procedures MR lumbar spine without contrast Carl Sosa APRN-FINGER BUFF SEWER [address] [employer] [address] Referral ID Status Reason Start Date Expiration Date V isits Requested Visits Authorized [id number] Pending Review 02/12/2024 02/11/2025 1 1 Additional Source Comments (unrecognized sect ion and content) No Status Records FoundNo Status Records FoundNo Status Records FoundNo Status Records FoundNo Status Records FoundNo Status Records FoundNo Status Records FoundNo Status Records FoundNo Status Records FoundNo Status Records FoundNo Status Records Found INFORMATION SOURCE (unrecogn ized section and content) DATE CREATED AUTHOR 04/21/2018 [facility] DATE CREATED AUTHOR AUTHOR'S ORGANIZ ATION 02/25/2022 [facility] DATE CREATED AUTHOR AUTHOR'S ORGANIZ ATION 04/12/2023 [facility] DATE CREATED AUTHOR AUTHOR'S ORGANIZ ATION 04/25/2024 [facility] DATE CREATED AUTHOR AUTHOR'S ORGANIZ ATION 06/05/2024 [facility] DATE CREATED AUTHOR AUTHOR'S ORGANIZ ATION 06/19/2024 [facility] EPIC DATE CREATED AUTHOR AUTHOR'S ORGANIZ ATION 08/12/2024 [facility] DATE CREATED AUTHOR AUTHOR'S ORGANIZ ATION 08/26/2024 [facility] DATE CREATED AUTHOR AUTHOR'S ORGANIZ ATION 12/22/2024 [facility] DATE CREATED AUTHOR AUTHOR'S ORGANIZ ATION 01/30/[address] [facility] DATE CREATED AUTHOR AUTHOR'S ORGANIZ ATION 02/03/2025 [facility] REASON FOR VISIT (unrecogniz ed section and content) Reason Comments New Patient Reason Comments Radiology NM Specialty Diagnoses / Procedures Referred By Contact Referred To Contact MOLECULAR & FUNCTIONAL IMAGING Diagnoses Abnormal findings on diagnostic imaging of other parts of musculoskeletal system Procedures NM BONE 3 PHASE BONE &/JOINT IMAGING 3 PHASE STUDY Johnathan Kraus MD [address] [facility] [address] [place] [address] Molecular & Functional Imaging [address] [place] [address] Referral ID Status Reason Start Date Expiration Date V isits Requested Visits Authorized [id number] Closed Auto-Generate d Referral 11/25/2024 12/25/2025 1 1 Reason Onset Date Comments Er Follow-up 11/05/2023 Reason Comments 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 [address] Mayco Nolen MD [address] [address] Referral ID Status Reason Start Date Expiration Date Visits Requested Visits Authorized [id number] Pending Review Specialty Services Required 11/05/2023 11/04/2024 1 1 Reason Onset Date Comments surgery 12/10/2023 Reason Comments Follow-up Annual follow up wit h PSA Reason Onset Date Comments surgery 12/24/2023 Reason Comments Follow-up F/u mri results joseluis ent with worsening RLE radiculopathy Specialty Diagnoses / Procedures Referred By Gaston t Referred To Contact Referral ID Status Reason Start Date Expiration Date Visits Re quested Visits Authorized [id number] 1 1 Reason Comments Follow-up 4-6 wk lumbar Reason Comments Post-op POST OP LUMBAR GIFTY ECTOMY Reason Comments Annual Exam Reason Onset Date Comments Request for retro C9 07/27/2024 Reason Comments Leg Pain Reason Comments Schedule Surgery Care Teams (unrecognized sec tion and content) [...] 22, 2024 End: May 22, 2024 Manager Post Relationship Specialty Start Date End Date Sumanth Huang PCP - General Family Medicine 12/17/14 Team Status: Inactive Member Role Status Dates NON STAFF Primary Care Provider Active Start: July 31, 2024 End: July 31, 2024 Charity Barkley MD Attending Provider Active Start: July 31, 2024 End: July 31, 2024 Manager Post Relationship Specialty Start Date End Date Sumanth Huang PCP - General Family Medicine 12/17/14 Manager Post Relationship Specialty Start Date End Date sherri Sumanth Nelson King PCP - General Family Medicine 12/17/14 Manager Post Relationship Specialty Start Date End Date sherri MartaSumanth King PCP - General Family Medicine 12/17/14 Manager Post Relationship Specialty Start Date End Date Sumanth Hill MD [address] [place] [address] PCP - General Family Medicine 01/16/23 Manager Post Relationship Specialty Start Date End Date Sumanth Hill MD [address] [place] [address] PCP - General Family Medicine 01/16/23 Manager Post Relationship Specialty Start Date End Date Sumanth Hill MD [address] [place] [address] PCP - General Family Medicine 01/16/23 Manager Post Relationship Specialty Start Date End Date Sumanth Hill MD [address] [place] [address] PCP - General Family Medicine 01/16/23 Manager Post Relationship Specialty Start Date End Date Sumanth Hill MD [address] [place] [address] PCP - General Family Medicine 01/16/23 Manager Post Relationship Specialty Start Date End Date Sumanth Hill MD [address] [place] [address] PCP - General Family Medicine 01/16/23 Manager Post Relationship Specialty Start Date End Date Sumanth Hill MD [address] [place] [address] PCP - General Family Medicine 01/16/23 Manager Post Relationship Specialty Start Date End Date Sumanth Hill MD [address] [place] [address] PCP - General Family Medicine 01/16/23 Manager Post Relationship Specialty Start Date End Date Sumanth Hill MD [address] [place] [address] PCP - General Family Medicine 01/16/23 Manager Post Relationship Specialty Start Date End Date Sumanth Hill MD [address] [place] [address] PCP - General Family Medicine 01/16/23 Manager Post Relationship Specialty Start Date End Date Sumanth Hill MD [address] [place] [address] PCP - General Family Medicine 01/16/23 Manager Post Relationship Specialty Start Date End Date Sumanth Hill MD [address] [place] [address] PCP - General Family Medicine 01/16/23 Manager Post Relationship Specialty Start Date End Date Sumanth Hill MD [address] [place] [address] PCP - General Family Medicine 01/16/23 Manager Post Relationship Specialty Start Date End Date Sumanth Huang PCP - General Family Medicine 12/17/14 Team Status: Inactive Member Role Status Dates NON STAFF Primary Care Provider Active Start: January 26, 2025 End: January 26, 2025 Charity Barkley MD Attending Provider Active Start: January 26, 2025 End: January 26, 2025 Manager Post Relationship Specialty Start Date End Date Sumanth Huang PCP - General Family Medicine 12/17/14 Goals (unrecognized section and content) Goals may be documented in a n alternate section Source Comments (unrecognize d section and content) In the event this informatio n is protected by the Federal Confidentiality of Alcohol and Drug Abuse Patient Records regulations: The Federal rules restrict any use of the information to criminally investigate or prosecute any alcohol or drug abuse patient.[facility] Center[facility] the event this information is protected by the Federal Confidentiality of Alcohol and Drug Abuse Patient Records regulations: The Federal rules restrict any use of the information to criminally investigate or prosecute any alcohol or drug abuse patient.[facility] Center[facility] the event this information is protected by the Federal Confidentiality of Alcohol and Drug Abuse Patient Records regulations: The Federal rules restrict any use of the information to criminally investigate or prosecute any alcohol or drug abuse patient.[facility] Center[facility] the event this information is protected by the Federal Confidentiality of Alcohol and Drug Abuse Patient Records regulations: The Federal rules restrict any use of the information to criminally investigate or prosecute any alcohol or drug abuse patient.[facility] CenterIn the event this information is protected by the Federal Confidentiality of Alcohol and Drug Abuse Patient Records regulations: The Federal rules restrict any use of the information to criminally investigate or prosecute any alcohol or drug abuse patient.[facility] CenterIn the event this information is protected by the Federal Confidentiality of Alcohol and Drug Abuse Patient Records regulations: The Federal rules restrict any use of the information to criminally investigate or prosecute any alcohol or drug abuse patient.[facility] Scheduled Active and Recently Administ ered Medications (unrecognized section and content) Medication Order 12/25/2023 12/26/2023 12/27/2023 acetaminophen (TYLENOL EXTRA STRENGTH) tablet 1,000 mg (COMPLETED) 1,000 mg, oral, Once, On Sat12/25/23 at 1445, For 1 dose, Pre-op 1456 (Given - Provider: Vibha Saeed, RN) ceFAZolin (ANCEF) 2,000 mg in sodium [...] 524 (Given - Provider: Bandar Bahena, RN) 05 (Given - Provider: Pineda Alexandra, [...] 0905 (New Bag - Provider: Michaelle Zeng, RN)0935 (Stop Bag - Provider: Michaelle Zeng, [...] or tea. 2055 (Given - Provider: Shira Thoams RN) 822 (Given - Provider: José Miguel [...] 0900 (Not Given - Provider: Michaelle Zeng, RN - Reason: IV infusing) sodium chloride [...] Saeed RN)1948 (New Bag - Provider: Shira Thomas, MIREILLE) 1900 (Stop Bag - Provider: Pineda Alexandra [...] Vibha Saeed RN) lidocaine-EPINEPHrine (XYLOCAINE W/EPI) 1 %-[id number] injection (CANCELED) As needed, Starting on Sat12/25/23 [...] RN)233 (Given - Provider: Bandar Bahena RN) 0451 (Given - Provider: Bandar Bahena RN)1227 (Given [...] RN)2056 (See Alternative - Provider: Shira Thomas RN)2335 (See Alternative - Provider: Bandar Bahena RN) 0451 (See Alternative - Provider: Bandar Bahena RN)1227 (See Alternative - Provider: José Miguel Devine RN)1752 (See Alternative - Provider: José Miguel Devine, [...] BE BASED ON THE PRIMARY CLINICAL RECORDS. [employer] [facility]. provides no warranty or guarantee of the accuracy or completeness of information in this document.
== END 2025-02-10 07:50 | disposition home or self-care (01) ==
PROVIDERS: PCP Family Medicine; Visit Provider Nurse Practitioner
DX: M48.062 Spinal stenosis, lumbar region with neurogenic claudication (principal); M47.816 Spondylosis without myelopathy or radiculopathy, lumbar region; M96.1 Postlaminectomy syndrome, not elsewhere classified; M54.16 Radiculopathy, lumbar region; Z79.891 Long term (current) use of opiate analgesic; M62.838 Other muscle spasm
CPT/HCPCS: G0463

== ENCOUNTER 2025-03-10 08:23 | Outpatient (OUT) | payer MEDICARE, OTHER, SELFPAY ==
--- NOTE | 2025-03-10 08:54 | PM.CN ---
Consult Note: HPI Data of Consult Patient: known to practice within the last 3 years Requesting Physician: Danielle Davila NP Primary Care Provider: SUMANTH BECK Consult Narrative Reason for consult: f/u Narrative: Regan Green a pleasant 74 year old male presents for evaluation. longstanding hx of back pain unresponsive to > 6 weeks of PT/provider guided HEP, heat, ice, tylenol and NSAIDs. prior advanced imaging consistent with multilevel lumbar spondylosis, stenosis, and lumbar DDD. continues to f/u with NS, planning for L4,5 fusion on 03/30/25 with [facility]. pain today 8/10 with standing, walking, twisting, pushing, pulling, activity. continues to utilize diclofenac, flexeril, percocet, gabapentin with benefit without side effects. cc:: CC: Danielle Davila NP Review of Systems ROS Status of ROS 10 or more systems reviewed and unremarkable except as noted in history and below Musculoskeletal Reports: back pain, extremity pain and muscle cramps PFSH PFSH Medical History Rheumatoid arthritis ?M06.9 - Rheumatoid arthritis, unspecified (ICD-10) Low back pain ?M54.50 - Low back pain, unspecified (ICD-10) Prostate cancer ?C61 - Malignant neoplasm of prostate (ICD-10) Sacroiliitis, not elsewhere classified ?M46.1 - Sacroiliitis, not elsewhere classified (ICD-10) Surgical History Status post hip surgery ?Z98.890 - Other specified postprocedural states (ICD-10) S/P hernia repair ?Z98.890 - Other specified postprocedural states (ICD-10) ?Z87.19 - Personal history of other diseases of the digestive system (ICD-10) S/P total knee arthroplasty ?Z96.659 - Presence of unspecified artificial knee joint (ICD-10) S/P prostatectomy ?Z90.79 - Acquired absence of other genital organ(s) (ICD-10) Meds Home Medications and Allergies Home Medications ?Medication ?Instructions ?Recorded ?Confirmed ?Type OSCAL WITH D PO .QD 04/18/23 History glucosamine-chondroitin 250 mg-200 2 tab PO .QD 04/18/23 01/25/25 History mg tablet (Osteo Bi-Flex) multivitamin 1 tab PO DAILY 04/18/23 01/25/25 History vitamin B complex (Vitamins B 1 tab PO DAILY 01/22/24 01/25/25 History Complex tablet) diclofenac sodium 75 mg 75 mg PO BID PRN pain #60 tabs 05/14/24 01/25/25 Rx tablet,delayed release cyclobenzaprine 10 mg tablet 10 mg 05/19/24 History diclofenac sodium 75 mg 75 mg PO BID PRN pain #60 tabs 11/12/24 01/25/25 Rx tablet,delayed release oxycodone-acetaminophen 5 mg-325 1 tab PO BID PRN pain #60 tabs 11/18/24 01/25/25 Rx mg tablet (Percocet) cyclobenzaprine 10 mg tablet 10 mg PO TID PRN muscle spasm #90 12/09/24 01/25/25 Rx tabs gabapentin 300 mg capsule 300 mg PO TID #90 caps 12/16/24 01/25/25 Rx oxycodone-acetaminophen 5 mg-325 1 tab PO BID PRN pain #60 tabs 02/10/25 Rx mg tablet (Percocet) cyclobenzaprine 10 mg tablet 10 mg PO TID PRN muscle spasm #90 03/02/25 Rx tabs gabapentin 300 mg capsule 300 mg PO TID #90 caps 03/02/25 Rx oxycodone-acetaminophen 5 mg-325 1 tab PO BID PRN pain #60 tabs 03/10/25 Rx mg tablet (Percocet) Allergies Allergy/AdvReac Type Severity Reaction Status Date / Time No Known Drug Allergies Allergy Verified 01/25/25 09:43 Exam Constitutional Documenting provider has reviewed patient's vital signs: yes Common normals: no apparent distress, oriented x3, healthy appearing, alert and well nourished General appearance: cooperative [facility] Common normals: normocephalic, hearing grossly normal bilaterally and moist oral mucous membranes Head and scalp: normocephalic Eye Common normals: PERRL Pupil: PERRL Neck & C-Spine Common normals: full ROM General: normal visual inspection Chest Common normals: inspection of chest normal Respiratory Common normals: normal respiratory effort, no retractions and no use of accessory muscles Back & Pelvis Lumbar spine/lower back: ROM limited, pain with ROM, paraspinal muscle spasm Lumbar paraspinal muscle spasm: right Right lumbar paraspinal muscle spasm: L4 and L5 and straight leg raise negative bilaterally Other: strength 4/5 in RLE and 5/5 in LLE numerous trigger points noted to right paralumbar spine involving latissimus dorsi muscles Neuro Common normals: oriented x3 Sensorium/orientation: alert Psych Common normals: mental status grossly normal, thought process normal, cooperative, affect normal, speech normal and activity/motor behavior normal Speech: normal speech Thought process: normal thought process Results Additional Findings Additional findings: If on a controlled substance or opioids, I have checked an OARRS report on this patient and there are no aberrancies noted in the prescribing history.??If on a controlled substance or opioid a drug screen was completed and reviewed within the last year, and if there has not been a drug screen completed we ordered one today to monitor higher risk, state monitored pain medication use. As part of providing excellent, safe, comprehensive care, the following was completed at our patient's visit: 1. A medication reconciliation and review to ensure accurate knowledge of current/active medications, including asking our patients to inform us about any [id number] medications or herbal remedies/nutritional supplements/alternative remedies. 2. A review to specifically ensure our patients have had annual screening for screening for depression, screening for tobacco use, and screening for unhealthy alcohol use. For concerning screenings had a discussion with the patient, provided patient education, and recommended follow-up with primary care provider when appropriate. If patient noted with a risk of falling, they received education on strength, gait, and balance training to prevent future risk of falling. Portions of this note may have been carried over from the previous visit and updated as appropriate. Please note this office utilizes paper charting in addition to the electronic medical record. A list of current medications, vitals, and PMH is available there as the clinical staff outside of myself do not have access to [employer] charting during the clinic day operations. As part of providing quality comprehensive care the current medications, vitals, and PMH were reviewed in the paper chart. Assessment and Plan Assessment and Plan (1) Myalgia, other site: Assessment and Plan: OPERATION:?right latissimus dorsi trigger point injection for myalgia other site COMPLICATIONS:?None. DESCRIPTION OF PROCEDURE:?The procedure risks, hazards and alternatives were discussed with the patient and a proper consent was obtained. The area over the myofascial spasm was prepped with alcohol utilizing sterile technique. After isolating it between two palpating fingertips a 25-gauge 1.5 needle was placed in the center of the myofascial spasms and a negative aspiration was performed. Then 2cc of lidocaine 2% 10mg was injected into each trigger point x6. The patient tolerated the procedure well without any apparent difficulties or complications. They were feeling relief by the time the block had set. (2) Lumbar stenosis with neurogenic claudication: Assessment and Plan: 01/25/25 right L4/5 L5/S1 TFESI >50% improvement ongoing in radicular pain (3) Lumbar spondylosis: (4) Post laminectomy syndrome: (5) Lumbar radiculopathy: (6) Chronic prescription opiate use: Assessment and Plan: I feel these medications are improving the patient's quality of life and allow them to tolerate activities of daily living as well as participate in recreational activity.? The patient does not report intolerable side effects. The patient is NOT opioid naive and non-pharmacologic and non-opioid treatment has failed to significantly relieve the patient's pain and improve functionality. The patient has a diagnosis that is related to a somatic or visceral pain etiology. ? ?? I reviewed with the patient the potential risks and side effects with the use of? opioid medications including but not limited to respiratory depression,? sedation, and even . Within the last 12 months I have verified the patient has access to naloxone should? these effects occur. The patient was advised to let? their family know they had Naloxone in case they would need to administer? the medication. I advised the patient to avoid the use of any other? sedation substances including alcohol, THC, and benzodiazepines while? taking opioid medications due to the risk of compounding side effects and? detrimental outcomes. within the last 12 months I have reviewed the COPY EDITOR, pain treatment agreement and urine drug screen.? ?? A drug screen was completed within the last year, and no aberrancies were noted regarding their use of controlled substances. The patient understands they are subject to the terms and conditions of the pain contract that they have signed. ? ?? I have checked an OARRS report on this patient today and there are no aberrancies noted in the prescribing history.? (7) Muscle spasm: Plan 74 year old male with chronic low back pain presents for evaluation. Pt pending lumbar fusion with [facility] 03/30/25, per pt L4,5 fusion. As discussed today pt to DC percocet following surgery and allow NS team to manage post op pain until they clear him and he contact our office to resume his medication regimen. right latissimus dorsi trigger point injection as detailed above for acute myofascial spasming and trigger points presenting over the last 4 weeks unresponsive to heat, ice, stretching, and current medications. increase gabapentin 600mg TID, risks vs benefits reviewed. increase flexeril 10mg QID PRN pain/spasms. continue percocet 5-325mg BID PRN pain. f/u 2-3 months at this time.
== END 2025-03-10 08:24 | disposition home or self-care (01) ==
PROVIDERS: PCP Family Medicine; Visit Provider Nurse Practitioner
DX: M79.18 Myalgia, other site (principal); M48.062 Spinal stenosis, lumbar region with neurogenic claudication; M47.816 Spondylosis without myelopathy or radiculopathy, lumbar region; M96.1 Postlaminectomy syndrome, not elsewhere classified; M54.16 Radiculopathy, lumbar region; Z79.891 Long term (current) use of opiate analgesic
CPT/HCPCS: G0463

== ENCOUNTER 2025-04-29 09:30 | Outpatient (OUT) | payer MEDICARE, OTHER, SELFPAY ==
--- NOTE | 2025-04-29 09:44 | PM.CN ---
Consult Note: HPI Data of Consult Patient: known to practice within the last 3 years Requesting Physician: Danielle Davila NP Primary Care Provider: SUMANTH BECK Consult Narrative Reason for consult: f/u Narrative: Regan Green a pleasant 75 year old male presents for evaluation. longstanding hx of back pain and right knee pain post replacement unresponsive to > 6 weeks of PT/provider guided HEP, heat, ice, tylenol and NSAIDs. prior advanced imaging consistent with multilevel lumbar spondylosis, stenosis, and lumbar DDD. pt status post L4/5 fusion, continues to f/u with NS next appointment 05/10/25. pain today 3/10 aching in low back 6/10 in right knee increasing to 10/10 with walking and activity. cc:: CC: Danielle Davila NP Review of Systems ROS Status of ROS 10 or more systems reviewed and unremarkable except as noted in history and below Musculoskeletal Reports: back pain and joint pain PFSH PFSH Medical History Rheumatoid arthritis ?M06.9 - Rheumatoid arthritis, unspecified (ICD-10) Low back pain ?M54.50 - Low back pain, unspecified (ICD-10) Prostate cancer ?C61 - Malignant neoplasm of prostate (ICD-10) Sacroiliitis, not elsewhere classified ?M46.1 - Sacroiliitis, not elsewhere classified (ICD-10) Surgical History Status post hip surgery ?Z98.890 - Other specified postprocedural states (ICD-10) S/P hernia repair ?Z98.890 - Other specified postprocedural states (ICD-10) ?Z87.19 - Personal history of other diseases of the digestive system (ICD-10) S/P total knee arthroplasty ?Z96.659 - Presence of unspecified artificial knee joint (ICD-10) S/P prostatectomy ?Z90.79 - Acquired absence of other genital organ(s) (ICD-10) Meds Home Medications and Allergies Home Medications ?Medication ?Instructions ?Recorded ?Confirmed ?Type OSCAL WITH D PO .QD 04/18/23 History glucosamine-chondroitin 250 mg-200 2 tab PO .QD 04/18/23 01/25/25 History mg tablet (Osteo Bi-Flex) multivitamin 1 tab PO DAILY 04/18/23 01/25/25 History vitamin B complex (Vitamins B 1 tab PO DAILY 01/22/24 01/25/25 History Complex tablet) diclofenac sodium 75 mg 75 mg PO BID PRN pain #60 tabs 05/14/24 01/25/25 Rx tablet,delayed release cyclobenzaprine 10 mg tablet 10 mg 05/19/24 History diclofenac sodium 75 mg 75 mg PO BID PRN pain #60 tabs 11/12/24 01/25/25 Rx tablet,delayed release oxycodone-acetaminophen 5 mg-325 1 tab PO BID PRN pain #60 tabs 11/18/24 01/25/25 Rx mg tablet (Percocet) cyclobenzaprine 10 mg tablet 10 mg PO TID PRN muscle spasm #90 12/09/24 01/25/25 Rx tabs gabapentin 300 mg capsule 300 mg PO TID #90 caps 12/16/24 01/25/25 Rx oxycodone-acetaminophen 5 mg-325 1 tab PO BID PRN pain #60 tabs 02/10/25 Rx mg tablet (Percocet) cyclobenzaprine 10 mg tablet 10 mg PO TID PRN muscle spasm #90 03/02/25 Rx tabs gabapentin 300 mg capsule 300 mg PO TID #90 caps 03/02/25 Rx oxycodone-acetaminophen 5 mg-325 1 tab PO BID PRN pain #60 tabs 03/10/25 Rx mg tablet (Percocet) gabapentin 300 mg capsule 300 mg PO TID #90 caps 03/24/25 Rx diclofenac sodium 75 mg 75 mg PO BID PRN pain #60 tabs 04/19/25 Rx tablet,delayed release Allergies Allergy/AdvReac Type Severity Reaction Status Date / Time No Known Drug Allergies Allergy Verified 01/25/25 09:43 Exam Constitutional Documenting provider has reviewed patient's vital signs: yes Common normals: no apparent distress, oriented x3, healthy appearing, alert and well nourished General appearance: cooperative HENMT Common normals: normocephalic, hearing grossly normal bilaterally and moist oral mucous membranes Head and scalp: normocephalic Eye Common normals: PERRL Pupil: PERRL Neck & C-Spine Common normals: full ROM General: normal visual inspection Chest Common normals: inspection of chest normal Respiratory Common normals: normal respiratory effort, no retractions and no use of accessory muscles Back & Pelvis Lumbar spine/lower back: ROM limited and straight leg raise negative bilaterally Other: strength 5/5 in BLE, improved from prior altered sensation right L4/5 Extremity Right lower extremity: knee joint Other: moderate pain with palpation, no edema noted. ROM intact Neuro Common normals: oriented x3 Sensorium/orientation: alert Psych Common normals: mental status grossly normal, thought process normal, cooperative, affect normal, speech normal and activity/motor behavior normal Speech: normal speech Thought process: normal thought process Results Additional Findings Additional findings: If on a controlled substance or opioids, I have checked an [place] report on this patient and there are no aberrancies noted in the prescribing history.??If on a controlled substance or opioid a drug screen was completed and reviewed within the last year, and if there has not been a drug screen completed we ordered one today to monitor higher risk, state monitored pain medication use. As part of providing excellent, safe, comprehensive care, the following was completed at our patient's visit: 1. A medication reconciliation and review to ensure accurate knowledge of current/active medications, including asking our patients to inform us about any [id number] medications or herbal remedies/nutritional supplements/alternative remedies. 2. A review to specifically ensure our patients have had annual screening for screening for depression, screening for tobacco use, and screening for unhealthy alcohol use. For concerning screenings had a discussion with the patient, provided patient education, and recommended follow-up with primary care provider when appropriate. If patient noted with a risk of falling, they received education on strength, gait, and balance training to prevent future risk of falling. Portions of this note may have been carried over from the previous visit and updated as appropriate. Please note this office utilizes paper charting in addition to the electronic medical record. A list of current medications, vitals, and PMH is available there as the clinical staff outside of myself do not have access to [employer] charting during the clinic day operations. As part of providing quality comprehensive care the current medications, vitals, and PMH were reviewed in the paper chart. Assessment and Plan Assessment and Plan (1) Status post right knee replacement: Assessment and Plan: The patient has had over 3 months of moderate to severe right knee pain with functional impairment and inadequate response to conservative care including NSAIDS (unless there are contraindication such as concurrent blood thinners), multiple oral or topical pain medications, and home exercise program/physical therapy.? Patient has completed >6 weeks of guided home exercise program and/or formal physical therapy program without relief of their symptoms.? The Oswestry Disability Index was completed, and the patient scored a 50%.? (2) Chronic pain of right knee: (3) Myalgia, other site: (4) Lumbar stenosis with neurogenic claudication: Assessment and Plan: 01/25/25 right L4/5 L5/S1 TFESI >50% improvement ongoing in radicular pain (5) Lumbar spondylosis: (6) Post laminectomy syndrome: (7) Lumbar radiculopathy: (8) Chronic prescription opiate use: Assessment and Plan: I feel these medications are improving the patient's quality of life and allow them to tolerate activities of daily living as well as participate in recreational activity.? The patient does not report intolerable side effects. The patient is NOT opioid naive and non-pharmacologic and non-opioid treatment has failed to significantly relieve the patient's pain and improve functionality. The patient has a diagnosis that is related to a somatic or visceral pain etiology. ? ?? I reviewed with the patient the potential risks and side effects with the use of? opioid medications including but not limited to respiratory depression,? sedation, and even . Within the last 12 months I have verified the patient has access to naloxone should? these effects occur. The patient was advised to let? their family know they had Naloxone in case they would need to administer? the medication. I advised the patient to avoid the use of any other? sedation substances including alcohol, THC, and benzodiazepines while? taking opioid medications due to the risk of compounding side effects and? detrimental outcomes. within the last 12 months I have reviewed the [employer], pain treatment agreement and urine drug screen.? ?? A drug screen was completed within the last year, and no aberrancies were noted regarding their use of controlled substances. The patient understands they are subject to the terms and conditions of the pain contract that they have signed. ? ?? I have checked an [place] report on this patient today and there are no aberrancies noted in the prescribing history.? (9) Muscle spasm: Plan proceed with right genicular nerve block x1 under fluoroscopy in consideration of RFA continue current medications risks vs benefits reviewed update UDS today f/u after genicular nerve block
== END 2025-04-29 09:31 | disposition home or self-care (01) ==
PROVIDERS: PCP Family Medicine; Visit Provider Nurse Practitioner
DX: M25.561 Pain in right knee (principal); Z96.651 Presence of right artificial knee joint; M79.18 Myalgia, other site; M48.062 Spinal stenosis, lumbar region with neurogenic claudication; M47.816 Spondylosis without myelopathy or radiculopathy, lumbar region; M96.1 Postlaminectomy syndrome, not elsewhere classified; M54.16 Radiculopathy, lumbar region; Z79.891 Long term (current) use of opiate analgesic
CPT/HCPCS: G0463

== ENCOUNTER 2025-06-30 08:05 | Outpatient (OUT) | payer MEDICARE, OTHER, SELFPAY ==
--- OUTSIDE RECORDS SUMMARY | 2025-06-30 08:29 | XMS_ITS | CCD ---
Author Organization [facility] Care Team Providers Care Aircraft Delivery Checker Name Role Phone PHYSICIAN, DEFAULT Unavailable Unavailable [...] DR JULIO Primary Care Unavailable LAKSHMIPATHY ., LISA Consulting Ceci vailable LAKSHMIPATHY ., LISA Attending Ceci vailable LAKSHMIPATHY ., LISA Admitting Ceci vailable DEFRANCE, DR JULIO Primary Care Unavailable HALKER ., MYLENE Consulting Unavailable SOSA ., DR ROMERO Ruiz Admitting Unavailable DEFRANCE, DR JULOI Primary Care Unavailable SOSA ., DR ROMERO Ruiz Consulting Unavailable SOSA ., DR ROMERO Ruiz Attending Unavailable LAKSHMIPATHY ., NARENDYUMI Admitting Ceci vailable LAKSHMIPATHY ., NARENDERICATH Attending Ceci vailable HALKER ., MYLENE Consulting [...] DR ROMERO Ruiz Admitting Unavailable DEFRANCE, DR JUILO Primary Care Unavailable SALMERON ., ISELA Consulting Unavailable Charity Barkley Unavailable MD Charity Barkley Attending Provider NON STAFF Primary Care Provider UnavailCARL Michaels Referring Unavailable DEFRANCE, SUMANTH Borges Primary Care [...] Barkley Attending Unavailable Charity Barkley Admitting Unavailable Sumanth Light Primary Care Provider Sumanth Hill MD Primary Care Provider JOHNATHAN KRAUS Referring Unavailable SUMANTH LIGHT Primary Care Unavaila ble JOHNATHAN KRAUS Referring Unavailable DE SUMANTH LOZANO Primary Care Unavaila ble Chloe DELUCA, Rosales Leon Attending Unavailable Chloe DELUCA, Rosales Leon Attending Unavailable Ovi Mcdaniel MD Primary Care Provider SUMANTH HILL Referring Unavailable DEFRANCE, SUMANTH Borges Primary Care Unavailable CARL SOSA Attending Unavailable DEFRANCE, SUMANTH Borges Attending Unavailable DEFRANCE, SUMANTH Borges Referring Unavailable DEFRANCE, SUMANTH Borges Primary Care Unavailable OVI MCDANIEL Attending Unavailable DEFPELON, SUMANTH Borges Referring Unavailable OVI MCDANIEL Primary Care Unavailable OVI MCDANIEL Attending Unavailable JONAS, OVI Referring Unavailable JONAS, OVI Primary Care Unavailable JODI CANALES I Attending Unavailable JONAS, OVI Referring Unavailable JONAS, OVI Primary Care Unavailable DE MARTA, SUMANTH MALIK Primary Care Unavaila ble DREW LEIJA Attending Unavailable DE MARTA, SUMANTH MALIK Primary Care Unavaila ble LAKSHMIPATHY, NARENDRANATH Referring Unava ilable JOHNATHAN KRAUS Attending Unavailable DE MARTA, SUMANTH MALIK Primary Care Unavaila ble JOHNATHAN KRAUS Referring Unavailable DE MARTA, SUMANTH MALIK Primary Care Unavaila ble JOHNATHAN KRAUS Attending Unavailable DE MARTA, SUMANTH MALIK Primary Care Unavaila ble ALEXISMAREK Attending Unavailable DREW LEIJA Referring Unavailable DE MARTA, SUMANTH MALIK Primary Care Unavaila ble DE MARTA, SUMANTH MALIK Primary Care Unavaila ble DE MARTA, SUMANTH MALIK Primary Care Unavaila ble DE MARTA, SUMANTH MALIK Primary Care Unavaila ble DREW LEIJA Referring Unavailable DE MARTA, SUMANTH MALIK Primary Care Unavaila ble JOHNATHAN KRAUS Admitting Unavailable JOHNATHAN KRAUS Attending Unavailable DE MARTA, SUMANTH MALIK Primary Care Unavaila ble DEFRANCESUMANTH Referring Unavailable DEFRANCESUMANTH Primary Care Unavailable OVI MCDANIEL Referring Unavailable JONAS, OVI Primary Care Unavailable JODI CANALES I Referring Unavailable JONAS, OVI Primary Care Unavailable JODI CANALES I Referring Unavailable JONAS, OVI Primary Care Unavailable Unavailable Primary Care Provider UnavailJESSICA Smith Attending Unavailable KING CLARK Attending Unavailable Allergies Allergy Classification Reported Allergen(s) Allergy Type Date of Onset Reaction(s) Facility (7 sources) Sulfonamides (Antibiotic); Translations: [SULFA (SULFONAMIDE ANTIBIOTICS)] Propensity to adverse reactions to drug [facility] Work Phone: Medications Current Medications Medication Drug Class(es) Dates Sig (Normalized) Sig (Original) acetaminophen 325 mg / oxyCODONE hydrochloride 5 mg oral tablet (20 sources) Opioid Agonist Start: 05-22-2024 End: 10-21-2024 oxyCODONE-acetamin ophen (Percocet) 5-325 MG tablet Take 1 tablet by oral route as needed for 30 days. 05/22/2024 Active take 1 tablet by mk th [...] aspirin 81 mg delayed release oral tablet (11 sources) Platelet Aggregation Inhibitor, Nonsteroidal Anti-inflammatory Drug take 1 tablet by mouth once daily aspirin, enteric coated (ASPIRIN, ENTERIC COATED) 81 mg EC tablet Take 81 mg by mouth once daily. Active baclofen 10 mg oral tablet (9 sources) gamma-Aminobutyric Acid-ergic Agonist Start: 04-02-2024 End: 08-11-2024 take 0.5-1 tablets by mouth three times daily baclofen (Lioresal) 10 MG tablet TAKE 1/2 - 1 TABLET BY MOUTH 3 TIMES A DAY 04/02/2024 Active Calcium (5 sources) Phosphate Binder, Calcium Calcium + D3 Active calcium carbonate 1250 mg oral tablet (20 sources) calcium carbonat e (OS-JARRETT 500) 500 mg calcium (1,250 mg) tablet 1 (one) time each day at the same time Active calcium carbonat e (Os-Jarrett) 1250 (500 Ca) MG tablet 1 (one) time each day at the same time Active calcium carbonate 1250 mg / cholecalciferol 200 unt oral tablet (17 sources) Vitamin D take 1 tablet by [...] Day Active ciprofloxacin 500 mg oral tablet (15 sources) Quinolone Antimicrobial Start: End: take 1 tablet by mouth in the morning, then take 1 tablet by mouth at bedtime ciprofloxacin HCl (CIPRO) 500 mg tablet Indications: Acute bacterial simple cystitis Take 1 tablet (500 mg total) by mouth in the morning and 1 tablet (500 mg total) before bedtime. Do all this for 7 days. 14 tablet 04/12/2025 04/19/2025 Active Start: 03-05-2017 take 1 tablet by mk th once daily ciprofloxacin HCl (CIPRO) 500 mg tablet Take 1 tablet by mouth once daily. Until catheter removed 10 tablet 03/05/2017 Active cyclobenzaprine hydrochloride 10 mg oral tablet (20 sources) Muscle Relaxant Start: 05-22-2024 Cyclobenzaprin e Active MG PO May 22, 2024 12:00am Start: 04-23-2024 cyclobenzaprin e (Flexeril) 10 MG tablet 04/23/2024 Active diclofenac sodium 75 mg delayed release oral tablet (20 sources) Nonsteroidal Anti-inflammatory Drug Start: 01-19-2024 diclofenac (VOLTAREN) 75 mg EC tablet 01/19/2024 Active Start: 01-19-2024 End: 12-27-2023 take 75 mg by mouth twice daily Diclofenac Sodium Acti ve 75 MG PO Twice daily January 29, 2024 12:00am diclofenac, EC, (VOLTAREN) 75 mg EC tablet two times a day. Active Diclofenac Activ e docusate sodium 100 mg oral capsule (11 sources) Start: 03-05-2017 take 1 capsule by mouth twice daily docusate sodium (COLACE) 100 mg capsule Take 1 capsule by mouth twice daily. To prevent constipation. If you develop diarrhea, please stop this medication. 20 capsule 03/05/2017 Active ELDERBERRY FRUIT (20 sources) End: 04-06-2025 ELDERBERRY FRUIT ORAL Take by mouth in the morning and at bedtime. 04/06/2025 Discontinued ELDERBERRY FRUIT ORAL Take by mouth. Active ELDERBERRY FRUIT ORAL Take by mouth in the morning and at bedtime. Active Elderberry preparation (5 sources) Elderberry 500 M G as directed Orally Active fluorouracil 50 mg/ml topical cream (2 sources) Nucleoside Metabolic Inhibitor Start: 06-02-2025 fluorouracil (Efudex) 5 % cream Indications: Actinic keratosis Apply to directed areas on the scalp and temples twice a day x 14 days. Dispense 30 day supply but only use for 14 days. 40 g 06/02/2025 Active Start: 06-02-2025 fluorouracil ( Efudex) 5 % cream Indications: Actinic keratosis Apply to directed areas on the scalp and temples twice a day x 14 days. Dispense 30 day supply but only use for 14 days. 40 g 06/02/2025 Active gabapentin 600 mg oral tablet (20 sources) Anti-epileptic Agent Start: 05-22-2024 take 1 tablet by mouth three times daily gabapentin (NEURONTIN) 600 mg tablet Take 600 mg by mouth three times a day. 05/22/2024 Active Start: 05-22-2024 gabapentin (Ne urontin) 300 MG capsule 05/22/2024 Active Start: 05-22-2024 Gabapentin Act [place] [...] glucosamine/chondr piña A sod (OSTEO BI-FLEX ORAL) (10 sources) take 1 tablet by mouth in the morning glucosamine/chondr piña A sod (OSTEO BI-FLEX ORAL) Take 1 tablet by mouth in the morning. Active End: 12-27-2023 take 1 capsule by mouth in the morning glucosamine/chondr piña A sod (OSTEO BI-FLEX ORAL) Take 1 capsule by mouth in the morning. 0 12/27/2023 Discontinued (Stop Taking at Discharge) ketorolac tromethamine 10 mg oral tablet (11 sources) Nonsteroidal Anti-inflammatory Drug, Cyclooxygenase Inhibitor Start: 03-05-2017 take 1 tablet by mouth every six hours as needed ketorolac (TORADOL) 10 mg tablet Take 1 tablet by mouth every 6 hours as needed for Pain. 15 tablet 03/05/2017 Active methylPREDNISolone (14 sources) Corticosteroid Start: 04-23-2024 [...] Active mv-min/folic/K1/lycopen/lute in (CENTRUM SILVER MEN ORAL) (17 sources) take 1 tablet by mouth once in the morning mv-min/folic/K1/lycopen/lutein (CENTRUM SILVER MEN ORAL) Take 1 tablet by mouth in the morning. Active take 1 tablet by mk th [...] Active oxybutynin chloride 5 mg oral tablet (11 sources) Cholinergic Muscarinic Antagonist Start: 03-06-2017 take 1 tablet by mouth every eight hours as needed oxybutynin (DITROPAN) 5 mg tablet Take 1 tablet by mouth every 8 hours as needed (for bladder spasms). 20 tablet 03/06/2017 Active oxyCODONE hydrochloride 5 mg oral tablet (8 sources) Opioid Agonist Start: 04-02-2025 End: 04-09-2025 take 5-10 mg enteral route every six hours as needed oxyCODONE (ROXICODONE) 5 mg immediate release tablet 1-2 tablets (5-10 mg total) by feeding tube route every 6 (six) hours as needed. 04/02/2025 04/09/2025 Active Start: 12-27-2023 End: 01-03-2024 take 1 tablet [...] tablet 5 mg OXYCODONE HCL/ACETAMINOPHEN (PERCOCET ORAL) (11 sources) take 1 tablet by mouth once [...] 11/13/2023 Active sildenafil 20 mg oral tablet (11 sources) Phosphodiesterase 5 Inhibitor Start : 05-01 take 2-5 tablets by mouth every hour sildenafil (REVATIO) 20 mg tablet Take 2-5 tablets by mouth one hour prior to sexual activity. 50 tablet 5 05/01/2017 Active sulfamethoxazole 800 mg / trimethoprim 160 mg oral tablet (1 source) Dihydrofolate Reductase Inhibitor Antibacterial, Sulfonamide Antimicrobial Start : 04-07 End: 04-12 take 1 tablet by mouth once in the morning sulfamethoxazole-trime thoprim (BACTRIM DS) 800-160 mg per tablet Indications: Hematuria, unspecified type , Acute bacterial simple cystitis Take 1 tablet by mouth in the morning and 1 tablet before bedtime. Do all this for 7 days. 14 tablet 04/07/2025 04/12/2025 Discontinued (Allergic response) Super B Complex (5 sources) Super B Complex Active Completed/Discontinued Medications Medication Drug Class(es) Dates Sig (Normalized) Sig (Original) acetaminophen 500 mg oral tablet (13 sources) Start: 04-02-2025 End: 05-12-2025 take 2 tablets by mouth every eight hours acetaminophen (TYLENOL) 500 mg tablet 2 tablets by ORAL/FEEDING TUBE route every 8 hours. 04/02/2025 05/12/2025 Discontinued Start: 12-27-2023 take 2 tablets by [facility] every four hours as needed for pain [...] 1,000 mg B-complex with vitamin C tablet (13 sources) End: 04-06-2025 take 2 tablets by mouth in the morning B-complex with vitamin C tablet Take 2 tablets by mouth in the morning. 04/06/2025 Discontinued take 2 tablets by mouth in the [...] tablets by mouth in the morning. 0 bisacodyl 10 mg rectal suppository (1 source) [...] mg/dL after initial treatment, repeat treatment. lidocaine 0.04 mg/mg medicated patch (16 sources) Antiarrhythmic, Amide Local Anesthetic Start: 04-03-2025 End: 06-29-2025 apply 1 dose transdermal route once daily lidocaine (SALONPAS) 4 % patch Apply 1 patch as directed once daily. 5 patch 04/03/2025 06/29/2025 Discontinued Start: 12-25-2023 End: 12-25-2023 lidocaine PF (XYLOCAINE) 10 mg/mL (1 %) injection 1 mg magnesium hydroxide 80 mg/ml oral suspension (1 source) Start: 12-27-2023 End: 12-27-2023 30 mL, oral, 2 times daily PRN, if no BM by post-op day 2, Starting on Sat12/27/23 at 0000, PACU & Post-op, Start Post-Op Day 2: DO NOT use in Renal/Dialysis patients Shake well. methocarbamol 750 mg oral tablet (16 sources) Muscle Relaxant Start: 04-02-2025 End: 05-12-2025 take 1 tablet by mouth three times daily methocarbamol (ROBAXIN) 750 mg tablet Take 1 tablet by mouth three times a day. 60 tablet 04/02/2025 05/12/2025 Discontinued Start: 12-26-2023 End: 01-10-2024 take 1 tablet by mouth three times daily as needed for muscle spasms methocarbamoL (ROBAXIN) 500 mg tablet Take 1 tablet (500 mg total) by mouth 3 (three) times a day as needed for muscle spasms for up to 14 days. 42 tablet 0 12/27/2023 01/10/2024 Active 2 ml midazolam 1 mg/ml cartridge [...] Administer over 2-5 minutes. polyethylene glycol 3350 [id number] mg powder for oral solution (1 source) [...] Problem Classification Problem Date Documented Date Episodic/Chronic Acute posthemorrhagic anemia (10 sources) Acute posthemorrhagic anemia; Translations: [Acute posthemorrhagic anemia] Onset: 03-31-2025 03-31-2025 Episodic Administrative/social admission (2 sources) Education and/or schooling finding; Translations: [Problems related to education and literacy, unspecified] Onset: 03-23-2025 03-10-2025 Episodic Blindness and vision defects (20 sources) Visual impairment; Translations: [Unspecified visual loss] Onset: 12-20-2023 12-20-2023 Chronic Cancer of prostate (20 sources) Malignant tumor of prostate; Translations: [Malignant neoplasm of prostate] Onset: 11-20-2016 03-05-2017 Chronic Deficiency and other anemia (1 source) Anemia; Translations: [Anemia, unspecified] 03-10-2025 Episodic Deficiency and other anemia (1 source) Anemia, unspecified; Translations: [Anemia, unspecified type] Onset: 03-18-2025 Episodic Disorders of lipid metabolism (3 sources) Pure hypercholesterolemia; Translations: [Pure hypercholesterolemia, unspecified] Onset: 08-11-2024 08-11-2024 Chronic Genitourinary symptoms and ill-defined conditions (12 sources) Unspecified abnormal findings in urine; Translations: [Abnormal urine] Onset: 12-20-2023 12-20-2023 Episodic Immunizations and screening for infectious disease (2 sources) Suspected carrier of methicillin resistant staphylococcus aureus; Translations: [Carrier or suspected carrier of Methicillin resistant Staphylococcus aureus] Onset: 03-18-2025 03-10-2025 Episodic Neoplasms of unspecified nature or uncertain behavior (2 sources) Neoplastic disease; Translations: [Neoplasm of unspecified behavior of bone, soft tissue, and skin] 06-02-2025 Episodic Osteoarthritis (20 sources) Bilateral primary osteoarthritis of hip; Translations: [Unilateral primary osteoarthritis of first carpometacarpal joint, left hand] Onset: 04-16-2018 Chronic Other acquired deformities (4 sources) Spondylolisthesis, lumbar region; Translations: [Spondylolisthesis, lumbar region] Onset: 04-23-2024 Episodic Other acquired deformities (9 sources) Lumbar spondylolisthesis; Translations: [Spondylolisthesis, lumbar region] 11-25-2024 Episodic Other aftercare (1 source) Surgical follow-up; Translations: [Encounter for removal of sutures] 04-14-2025 Episodic Other and unspecified benign neoplasm (2 sources) Melanocytic nevus of trunk; Translations: [Melanocytic nevi of trunk] 06-02-2025 Episodic Other connective tissue disease (14 sources) History of total knee arthroplasty; Translations: [Presence of unspecified artificial knee joint] Onset: 03-18-2025 03-18-2025 Chronic Other connective tissue disease (1 source) Presence of unspecified artificial knee joint; Translations: [Status post total knee replacement, unspecified laterality] Onset: 03-18-2025 Chronic Other connective tissue disease (2 sources) Arthrodesis status; Translations: [ARTHRODESIS STATUS] Onset: 04-16-2018 [...] hand] 01-27-2024 Episodic Other connective tissue disease (12 sources) History of lumbar fusion; Translations: [Arthrodesis status] Onset: 03-31-2025 03-31-2025 Episodic Other injuries and conditions due to external causes (1 source) Personal history of (healed) traumatic fracture; Translations: [PERSONAL HISTORY OF (HEALED) TRAUMATIC FRACTURE] Onset: 04-16-2018 Episodic Other nervous system disorders (5 sources) Other chronic pain; Translations: [OTHER CHRONIC PAIN] Onset: 10-11-2022 Chronic Other nervous system disorders (14 sources) Acute postoperative pain; Translations: [Other acute postprocedural pain] Onset: 03-31-2025 03-31-2025 Episodic Other nervous system disorders (2 sources) Numbness and tingling sensation of skin; Translations: [Anesthesia of skin] 05-12-2025 Episodic Other nervous system disorders (1 source) Anesthesia of skin; Translations: [Numbness and tingling] Onset: 05-12-2025 Episodic Other nervous system disorders (1 source) Paresthesia of skin; Translations: [Numbness and tingling] Onset: 05-12-2025 Episodic Other nervous system disorders (1 source) Other acute postprocedural pain; Translations: [Acute post-operative pain] Onset: 03-31-2025 Episodic Other non-traumatic joint disorders (4 sources) Other specified arthritis, left hand; Translations: [OTHER SPECIFIED ARTHRITIS LEFT HAND] Onset: 02-21-2023 Chronic Other nutritional; endocrine; and metabolic disorders (10 sources) Obesity caused by energy imbalance; Translations: [Class 1 obesity due to excess calories with body mass index (BMI) of 30.0 to 30.9 in adult] Onset: 03-31-2025 03-31-2025 Chronic Other skin disorders (2 sources) Actinic keratosis; Translations: [Actinic keratosis] 06-02-2025 Episodic Other skin disorders (2 sources) Lentiginosis; Translations: [Other melanin hyperpigmentation] 06-02-2025 Episodic Other skin disorders (2 sources) Seborrheic keratosis; Translations: [Other seborrheic keratosis] 06-02-2025 Episodic Residual codes; unclassified (2 sources) Other specified postprocedural states; Translations: [Other specified postprocedural states] Onset: 02-12-2024 Episodic Residual codes; unclassified (1 source) History of operative procedure on lumbar spinal structure; Translations: [Other specified postprocedural states] 04-14-2025 Episodic Residual codes; unclassified (1 source) Postoperative state; Translations: [Other specified postprocedural states] 04-06-2025 Episodic Spondylosis; intervertebral disc disorders; other back problems (20 sources) Sacroiliitis, not elsewhere classified; Translations: [Other intervertebral disc degeneration, lumbar region] Onset: 04-20-1996 Resolved: 10-04-2023 Chronic Sprains and strains (4 sources) Other [...] EXPOS COVID-19] Onset: 10-11-2022 Unclassified (1 source) Patient encounter status 03-11-2025 Unclassified (1 source) Suture / Staple Removal Onset: 04-14-2025 Unclassified (1 source) Annual Exam Onset: 08-11-2024 Unclassified (4 sources) History of lumbar fusion 05-12-2025 Unclassified (3 sources) SI joint arthritis 06-29-2025 Past or Other Problems Problem Classification Problem Date Documented Date Episodic/Chronic Cancer of prostate (5 sources) History of malignant neoplasm of prostate; Translations: [Personal history of malignant neoplasm of prostate] Onset: 10-04-2023 10-04-2023 Episodic Intestinal obstruction without hernia (20 sources) Partial obstruction of small bowel; Translations: [Partial intestinal obstruction, unspecified as to cause] Onset: 03-12-2017 Resolved: 12-20-2023 03-12-2017 Episodic Mood disorders (20 sources) Mood disorders Onset: 07-29-2023 Resolved: 04-06-2025 07-29-2023 Other aftercare (1 source) Encounter for therapeutic drug level monitoring; Translations: [Encounter for therapeutic drug level monitoring] Onset: 12-20-2023 Episodic Other aftercare (1 source) prison (current) use of 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; Translations: [prison (current) use of 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] Onset: 12-20-2023 Episodic Other aftercare (1 source) Monitoring status; Translations: [Encounter for therapeutic drug level monitoring] 12-20-2023 Episodic Other connective tissue disease (1 source) Other symptoms and signs involving the nervous system; Translations: [Other symptoms and signs involving the nervous system] Onset: 12-17-2023 Episodic Other connective tissue disease (20 sources) Neurogenic claudication; Translations: [Other symptoms and signs involving the nervous system] Onset: 12-17-2023 11-14-2023 Episodic Other connective tissue disease (1 source) Pain in right lower limb; Translations: [Pain in right leg] 02-12-2024 Episodic Other connective tissue disease (1 source) Other symptoms and signs involving the musculoskeletal system; Translations: [Other musculoskeletal symptoms referable to limbs] 02-12-2024 Episodic Other non-traumatic joint disorders (5 sources) Pain in right shoulder; Translations: [Pain in right shoulder] Onset: 06-24-2023 Episodic Other screening for suspected conditions (not mental disorders or infectious disease) (20 sources) Radiology result abnormal; Translations: [Abnormal findings on diagnostic imaging of other parts of musculoskeletal system] Onset: 10-09-2016 Resolved: 12-20-2023 11-25-2024 Episodic Other skin disorders (20 sources) Eruption; Translations: [Rash and other nonspecific skin eruption] Onset: 03-12-2017 Resolved: 12-20-2023 03-12-2017 Episodic Residual codes; unclassified (20 sources) Localized edema; Translations: [Localized edema] Onset: [...] 05-08-2017 Episodic Varicose veins of lower extremity (20 sources) Pain co-occurrent and due to varicose veins of right leg; Translations: [Varicose veins of right lower extremity with pain] Onset: 02-08-2020 02-08-2020 Episodic Results Test Name Value Interpretation Reference Range Facility No Panel Informationon 06-02 Type of biopsy: tangential Informed consent: discussed and consent obtained Informed consent comment: The risks and benefits of the biopsy were discussed. Risks include but are not limited to bleeding, infection, scarring, pain, and nerve damage. An opportunity to ask questions prior to the procedure was permitted and all questions were answered. Patient was prepped and draped in usual sterile fashion: area cleansed with alcohol. Anesthesia: the lesion was anesthetized in a standard fashion Anesthetic: 1% lidocaine w/ epinephrine 1-100,000 buffered w/ 8.4% NaHCO3 Instrument used: DermaBlade Hemostasis achieved with: electrodesiccation Outcome: patient tolerated procedure well Outcome comment: The specimen was placed in a prelabeled formalin container to be sent for pathology Post-procedure details: sterile dressing applied and wound care instructions given Post-procedure details comment: Emphasized need to contact clinic for any signs of infection, uncontrollable bleeding, or complications. Dressing type: bandage Additional details: Photo taken yes Amount of lidocaine used: 0.5 cc [employer] e CT UROGRAMon 05-18-[address] UROGRAM STUDY: CT abdomen and pelvis with and without contrast (CT Urogram) 05/12/2025 CLINICAL HISTORY: Gross hematuria COMPARISON: None. TECHNIQUE: CT of the abdomen and pelvis (CT urogram) was performed prior to and following the uneventful ministration of 100 cc Omnipaque 350 nonionic intravenous contrast utilizing thin section axial imaging with multiphasic contrast injection. Coronal and sagittal reformatted images were generated. Volume rendered 3 -D Maximum intensity projection reconstructions constructed under concurrent physician supervision on a independent workstation and reviewed for purposes of evaluation of the urinary tract and collecting systems. FINDINGS: No pleural or pericardial effusion and lung bases. There is no lower lung consolidation seen. There is diffuse hepatic steatosis. Gallbladder is present. The adrenal glands, pancreas and spleen appear to be unremarkable. Small bowel is nondilated. No enlarged mesenteric or retroperitoneal lymph nodes. Multiple descending and sigmoid colonic diverticula. There is no renal collecting system dilatation. There is near complete opacification of both ureters. Small left renal parapelvic cysts are seen requiring no additional follow-up imaging. Urinary bladder is grossly unremarkable. Postoperative changes of the pelvis. No free pelvic fluid. No enlarged pelvic lymph nodes. Degenerative changes of the normal caliber abdominal aorta. Small fat-containing ventral abdominal hernia. Streak artifact from left hemipelvic surgical hardware compromising assessment. Postoperative changes of the lumbar spine with multilevel degenerative disc disease. IMPRESSION: 1. Unremarkable appearance of the renal collecting systems and ureters. No focal ureteral abnormality identified. 2. Left renal cysts are seen requiring no additional follow-up imaging. 3. Colonic diverticulosis. 4. Diffuse hepatic steatosis. All CT scans at this facility use dose modulation, iterative reconstruction, and/or weight based dosing when appropriate to reduce radiation dose to as low as reasonably achievable. Finalized by Johnathan Rodriguez MD on 05/18/2025 9:39 AM Normal [facility] 05-12-2025 [facility] Telephone (NIQ) REGAN GREEN ([id number]) 1950 Date Time Provider Department 05/12/25 JOHNATHAN KRAUS During your visit today, we recorded the following information about you: Anabela Mark 05/12/2025 11:33 AM Signed Pt called in stated that he did just do a virtual but needed some clarification How long can car rides be When and how long can he be on a motorcycle When can he do a riding law mower, and for how long. Carrie Martines, MIREILLE 05/14/2025 10:54 AM Signed Neuro SPINE CARE COORDINATION QUICK NOTE Returned call to patient to discuss questions. I relayed information as per Drew Duarte. I stated that ok to ride his riding mower as well as his motorcycle try in short bursts of time to see how he is feeling. If having pain or feeling anything wait a few days and then can try again. I also stated that can go on longer car rides but as he is still healing from surgery for another 6 weeks just move a bit if ride will be longer then an hour. Patient verbalized understanding of information provided by nurse. Patient instructed to call back should symptoms change or worsen. Patient has no other questions or concerns at this time. Patient advised to follow up with office with any additional issues. Carrie Martines RN Spine Poultry Farmer Meat Allergies As of Date: 05/12/2025 (No Known Allergies) Date Reviewed: 03/30/2025 Reviewed by: Ramandeep Williamson RN - Fully Assessed Reason for Visit: Patient Question [6497] Prescriptions as of 05/14/2025 - lidocaine (SALONPAS) 4 % patch Apply 1 patch as directed once daily. - calcium carbonate (OS-JARRETT 500) 500 mg calcium (1,250 mg) tablet 1 (one) time each day at the same time - gabapentin (NEURONTIN) 600 mg tablet Take 600 mg by mouth three times a day. - ELDERBERRY FRUIT ORAL Take by mouth. 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*02/08/2020 S/P total knee arthroplasty [Z96.659] 03/18/2025 Spinal stenosis of lumbar region, unspecified w*03/30/2025 Acute post-operative pain [G89.18] 03/31/2025 S/P lumbar fusion [Z98.1] 03/31/2025 Class 1 obesity due to excess calories with bod*03/31/2025 ABLA (acute blood loss anemia) [D62] 03/31/2025 Encounter Status:Closed by CARRIE MARTINES on 05/14/25 [facility] Brenna 05-05-2025 [place] Telephone (NIQ) REGAN GREEN ([id number]) 1950 M Date Time Provider Department 05/05/25 JOHNATHAN KRAUS During your visit today, we recorded the following information about you: Anabela Mark 05/05/2025 3:27 PM Addendum Pt stated that he did get the message for Drew Leija for 05/12 at 10:40. He was stating that he is having problems getting [facility] paid, he did say there was an issue where it went over to [employer]'s comp when it should have been paid by Medicare and [employer]. He would like a call back. Reyes Steinberg RN 05/05/2025 4:13 PM Signed Date of Surgery: 03/30/2025 Physician: Johnathan Kraus Procedure: revision L4-5 decompression, L4-5 TLIF NOV: 05/12/25 w/ LIANE Called pt to review message. The patient called the office and shared that the surgery is not being paid. He said it should not be billed to a workman's comp claim, instead it should go to his insurance, [employer], and his Medicare. There are other injections which he gets annually that should to go [facility], but not this surgery. He shared that he previously made sure that the procedure was approved before surgery, but he does not have any documentation for this. Email sent to [facility] and [facility] to get a status update. Update shared wDonovan ROB and BRETT, RNCC. Allergies As of Date: 05/05/2025 (No Known Allergies) Date Reviewed: 03/30/2025 Reviewed by: Ramandeep Williamson, MIREILLE - Fully Assessed Reason for Visit: Patient Update [7594] Patient Question [4997] Prescriptions as of 05/05/2025 - acetaminophen (TYLENOL) 500 mg tablet 2 tablets by ORAL/FEEDING TUBE route every 8 hours. - lidocaine (SALONPAS) 4 % patch Apply 1 patch as directed once daily. - methocarbamol (ROBAXIN) 750 mg tablet Take 1 tablet by mouth three times a day. - calcium carbonate (OS-JARRETT 500) 500 mg calcium (1,250 mg) tablet 1 (one) time each day at the same time - gabapentin (NEURONTIN) 600 mg tablet Take 600 mg by mouth three times a day. - ELDERBERRY FRUIT ORAL Take by mouth. 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*02/08/2020 S/P total knee arthroplasty [Z96.659] 03/18/2025 Spinal stenosis of lumbar region, unspecified w*03/30/2025 Acute post-operative pain [G89.18] 03/31/2025 S/P lumbar fusion [Z98.1] 03/31/2025 Class 1 obesity due to excess calories with bod*03/31/2025 ABLA (acute blood loss anemia) [D62] 03/31/2025 Encounter Status:Closed by REYES STEINBERG on 05/05/25 Normal [facility] CREATININE, SERUMon 04-30-20 25 Creatinine [Mass/Vol] 0.76 mg/dL Normal 0.60-1.30 [facility] Comment on above: Result Comment: METH OD TRACEABLE TO IDMS STANDARD Performed By: #### C RT #### [facility] (TT) [address] [place] [address] VIR EGFR (CKD-EPI) NON-RACE DEPENDENT >^90 Normal >=60 [facility] Comment on above: Result Comment: Repo rted eGFR is based on the CKD-EPI 2020 equation that does not use a race coefficient. Performed By: #### C RT #### [facility] ([facility]) [address] [place] [address] VIR PROSTATIC SPECIFIC ANTIGEN, DIAGNOSTICon 04-30-2025 PROSTATIC SPEC ANT <^0.01 Normal 0.00-4.00 [facility] Comment on above: Result Comment: The method used for this test is Deejay Ventura DXI chemiluminescent immunoassay. Values obtained by different assay methods cannot be used interchangeably. Performed By: #### P SA #### [facility] ([facility]) [address] [place] [address] PARVIN Ceja 04-19-2025 CNPN Telephone (SPNMMN) REGAN GREEN ([id number]) 1950 M Date Time Provider Department 04/19/25 JOHNATHAN KRAUS SPNMMN During your visit today, we recorded the following information about you: Kerline Deshpande 04/19/2025 4:46 PM Signed Call received for Johnathan Kraus MD regarding Regan Green. Caller: self Patient Identified by Name and : Regan Green 1950 Reason for Call: General - Pt called to see if he should still take gabapentin and methocarbamol. Also would like to know when he could go back driving after surgery Is there any additional information the provider should know? No Last Office Visit: 04/15/2025 Next scheduled appointment: Visit date not found Best number to reach caller: [phone] Best time to reach caller: Any Is it OK to leave a detailed voice message? Yes Carrie Caputo, RN 04/20/2025 5:01 PM Signed Neuro SPINE CARE COORDINATION QUICK NOTE Returned call to patient to discuss questions. We discussed his gabapentin and robaxin. Patient has been getting gabapentin prescribed per PM and take 600mg TID. I explained that is not a medication that you can just quit taking. I stated it has to be weaned slowly and recommended talking with PM if feeling like he can come off. Patient also stated that he has not been taking the robaxin as he did not like how it made him feel. Prior to surgery was taking flexeril 10mg TID per PM and patient has gone back to that. I stated that is ok as long as not taking both flexeril and robaxin. I also discuss returning to driving and being off pain medications. Patient was worried about twisting to much and seeing blind spot. I explained that twisting to see blind spot is safe it would just depend on how he is feeling. I recommended a short practice run with someone else in the car incase it is to painful. Patient verbalized understanding of information provided by nurse. Patient instructed to call back should symptoms change or worsen. Patient has no other questions or concerns at this time. Patient advised to follow up with office with any additional issues. Carrie Martines RN Spine Poultry Farmer Meat Allergies As of Date: 04/19/2025 (No Known Allergies) Date Reviewed: 03/30/2025 Reviewed by: Ramandeep Williamson RN - Fully Assessed Reason for Visit: Patient Question [8098] Prescriptions as of 04/20/2025 - acetaminophen (TYLENOL) 500 mg tablet 2 tablets by ORAL/FEEDING TUBE route every 8 hours. - lidocaine (SALONPAS) 4 % patch Apply 1 patch as directed once daily. - methocarbamol (ROBAXIN) 750 mg tablet Take 1 tablet by mouth three times a day. - calcium carbonate (OS-JARRETT 500) 500 mg calcium (1,250 mg) tablet 1 (one) time each day at the same time - gabapentin (NEURONTIN) 600 mg tablet Take 600 mg by mouth three times a day. - ELDERBERRY FRUIT ORAL Take by mouth. 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*02/08/2020 S/P total knee arthroplasty [Z96.659] 03/18/2025 Spinal stenosis of lumbar region, unspecified w*03/30/2025 Acute post-operative pain [G89.18] 03/31/2025 S/P lumbar fusion [Z98.1] 03/31/2025 Class 1 obesity due to excess calories with bod*03/31/2025 ABLA (acute blood loss anemia) [D62] 03/31/2025 Encounter Status:Closed by CARRIE MARTINES on 04/20/25 Normal [facility] CNPNon 04-15-2025 CNPN Telephone (NIQ) NORMAREGAN Albarado ([id number]) 1950 M Date Time Provider Department 04/15/25 JOHNATHAN KRAUS NIQ During your visit today, we recorded the following information about you: Dolores Fuller 04/15/2025 10:50 AM Signed Rec'd call from Jodi at PCP's office - Dr Mcdaniel; states that their office removed patient's adri yesterday (total of 23); states that she needs confirmation of how many adri were placed; not mentioned in Op note; requesting call back w/this information; ph. [phone] Opt 1 (ask to speak w/Jodi) Carrie Martines RN 04/15/2025 2:55 PM Signed Neuro SPINE CARE COORDINATION QUICK NOTE I spoke with Drew Duarte regarding this. Based on post operative xray there was 23 adri noted. Called provided number to discussed. Was asked to leave a message on patient information protected line. I verified who and where I was calling from. I provided patient name and bday and confirmed 23 adri. I provided office call back if has any other questions. Patient verbalized understanding of information provided by nurse. Patient instructed to call back should symptoms change or worsen. Patient has no other questions or concerns at this time. Patient advised to follow up with office with any additional issues. Carrie Martines RN Spine Poultry Farmer Meat Allergies As of Date: 04/15/2025 (No Known Allergies) Date Reviewed: 03/30/2025 Reviewed by: Ramandeep Williamson, MIREILLE - Fully Assessed Prescriptions as of 04/15/2025 - acetaminophen (TYLENOL) 500 mg tablet 2 tablets by ORAL/FEEDING TUBE route every 8 hours. - lidocaine (SALONPAS) 4 % patch Apply 1 patch as directed once daily. - methocarbamol (ROBAXIN) 750 mg tablet Take 1 tablet by mouth three times a day. - calcium carbonate (OS-JARRETT 500) 500 mg calcium (1,250 mg) tablet 1 (one) time each day at the same time - gabapentin (NEURONTIN) 600 mg tablet Take 600 mg by mouth three times a day. - ELDERBERRY FRUIT ORAL Take by mouth. 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 Wound Appearance: clean, warm and pink Adri Removed: 25 Post-procedure assessment: cleaned with alcohol and left to dry. Patient tolerance: patient tolerated the procedure well with no immediate complications MANUALLY TRANSCRIBED RESULTS [facility] PO[facility] Urinalysis Auto, W/O Marisa monroy 04-14-2025 External Poct Urine Blood Negative [facility] External Poct Urine Glucose Negative [facility] External Poct Urine Ketones Negative [facility] External Poct Urine Leukocyte Esterase Negative [facility] External Poct Urine Nitrite Negative [facility] External Poct Urine Ph 5 [facility] External Poct Urine Protein Negative [facility] Interpretation and review of laboratory results Normal [facility] UROVYSION(TM) FOR BLADDERon 04-14-2025 UROVYSION FOR BLADDER CANCER SEE COMMENTS Normal [facility] Comment on above: Result Comment: Test Result Flag Unit RefValue ------ UroVysion (R) for Bladder Cancer Result Summary Suspicious Result SEE COMMENTS Scanning revealed greater than or equal to 4 cells with gains of two or more chromosomes 3, 7 or 17. In 100 consecutive non-inflammatory cells, 3% were abnormal. Interpretation SEE COMMENTS These findings are suspicious but not diagnostic for urothelial carcinoma or other tumor involving the genitourinary tract. In the absence of a clinically detectable tumor, close follow up with FISH is recommended. ADDITIONAL INFORMATION Fluorescence in situ hybridization (FISH) with centromere probes for chromosomes 3 (D3Z1), 7(D7Z1), 17(D17Z1), and a locus specific probe for 9p21 ([employer] [place], [place]). This test has been modified from the hack driver's instructions. Its performance characteristics were determined by [facility] in a manner consistent with CLIA requirements. This test has not been cleared or approved by the U.S. Food and Drug Administration. Reason for Referral Evaluate for urothelial carcinoma. Specimen Varies Source Urine, Clean Catch, Midstream Released By Mina Escobedo M.D. Test Performed by: [facility] - [facility] [address] [id number] Marketing Forecaster: Gonzales Bryson Ph.D.; CLIA# [id number] Performed By: #### U RVY #### [facility] (SDL) [address] [place] [address] VIR UROVYSION(TM) FOR BLADDER URVY UROVYSION(TM) FOR BLADDER Cancelled Normal [facility] Comment on above: Order Comment: NO RE COLLECT REQUIRED. Brenna 04-08-2025 CNPN Telephone (NIQ) REGAN GREEN ([id number]) 1950 M Date Time Provider Department 04/08/25 JOHNATHAN KRAUS During your visit today, we recorded the following information about you: Michelle De 04/08/2025 9:17 AM Signed Call received for Johnathan Kraus MD regarding Regan Green. Caller: self Patient Identified by Name and : Regan Green 1950 Reason for Call: Patient is calling to update Jamison Kraus that he was diagose with Ecoli Is there any additional information the provider should know? No Last Office Visit: 04/06/2025 Next scheduled appointment: Visit date not found Best number to reach caller: [phone] Best time to reach caller: anytime Is it OK to leave a detailed voice message? Yes Michelle Flannery Psychology AssociateCarrie Ashton, RN 04/08/2025 1:43 PM Signed Neuro SPINE CARE COORDINATION QUICK NOTE Returned call to patient to discuss update. See other encounter as patient had been having blood in his urine. Patient scheduled with urology on 04/14 but saw his PCP Saturday. Patient urine was tested and came back positive for E. Coli. Patient now on 7 days of Bactrim and then will follow up after abx. Will update surgical team as to plan and will let patient know if any recommendations. Patient verbalized understanding of information provided by nurse. Patient instructed to call back should symptoms change or worsen. Patient has no other questions or concerns at this time. Patient advised to follow up with office with any additional issues. Carrie Martines RN Spine Poultry Farmer Meat Katarina Pascual 04/16/2025 2:27 PM Signed Pt called and stated he had appts for the blood in his urine and the UTI. Pt stated the blood in urine was probably from them pulling out the catheter and it wasn't fully collapsed. Pt stated they gave him a Solvent drug which he was allergic to and broke out in hives. He is now on another drug. Pt stated he won't get any of the results for another month [phone] Carrie Martines RN 04/19/2025 4:26 PM Signed Neuro SPINE CARE COORDINATION QUICK NOTE Called patient to discuss message and review with Drew garcia. I stated that patient has had follow up and abx regarding UTI. I stated to continue with urology and PCP for continued follow up. Patient did not answer but a detailed message was left on identified line. Carrie Martines RN Spine Poultry Farmer Meat Allergies As of Date: 04/08/2025 (No Known Allergies) Date Reviewed: 03/30/2025 Reviewed by: Ramandeep Williamson, MIREILLE - Fully Assessed Reason for Visit: Patient Question [7874] Prescriptions as of 04/19/2025 - acetaminophen (TYLENOL) 500 mg tablet 2 tablets by ORAL/FEEDING TUBE route every 8 hours. - lidocaine (SALONPAS) 4 % patch Apply 1 patch as directed once daily. - methocarbamol (ROBAXIN) 750 mg tablet Take 1 tablet by mouth three times a day. - calcium carbonate (OS-JARRETT 500) 500 mg calcium (1,250 mg) tablet 1 (one) time each day at the same time - gabapentin (NEURONTIN) 600 mg tablet Take 600 mg by mouth three times a day. - ELDERBERRY FRUIT ORAL Take by mouth. 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*02/08/2020 S/P total knee arthroplasty [Z96.659] 03/18/2025 Spinal stenosis of lumbar region, unspecified w*03/30/2025 Acute post-operative pain [G89.18] 03/31/2025 S/P lumbar fusion [Z98.1] 03/31/2025 Class 1 obesity due to excess calories with bod*03/31/2025 ABLA (acute blood loss anemia) [D62] 03/31/2025 Encounter Status:Closed by CARRIE MARTINES on 04/19/25 [facility] CNNURSEon 04-06-2025 CNNURSE Nurse Visit (SPNSMN) REGAN GREEN ([id number]) 1950 Date Time Provider Department 04/06/25 11:00 AM CARRIE MARTINES SPRAFAMN During your visit today, we recorded the following information about you: Carrie Martines RN 04/06/2025 11:28 AM Signed Neuro SPINE CARE COORDINATION POST OP FOLLOW UP Spoke to patient who is 7 days post 03/30/2025: revision L4-5 decompression, L4-5 TLIF . Pain is well controlled with pain meds Tylenol and muscle relaxer Robaxin Incisions is clean, dry, and healing well Ambulatory/Activity: walking well unassisted Additional patient concerns: voiding difficulty (patient seeing PCP today at 3) Follow up: V V with ESTEFANY 05/12 Daily Plan of Care Visit during inpatient stay: yes Plan of Care Visit helpful: yes Additional Notes: Patient overall surgical healing feels that he is doing well. Controlling pain with tylenol and robaxin. Patient has not needed the oxycodone. Patient walking and moving slowly but able to do so. Patient having urination issues that were addressed yesterday 04/05 with follow up today 04/06. Patient denies any red flag symptoms and denies need for any refills. Patient states incision looks good with no concerns. Will update office with any needs. Carrie Martines RN Allergies As of Date: 04/06/2025 (No Known Allergies) Date Reviewed: 03/30/2025 Reviewed by: Ramandeep Williamson RN - Fully Assessed Primary Visit Diagnosis:Post-operat [place] [Z98.890] Prescriptions as of 04/06/2025 - acetaminophen (TYLENOL) 500 mg tablet 2 tablets by ORAL/FEEDING TUBE route every 8 hours. - lidocaine (SALONPAS) 4 % patch Apply 1 patch as directed once daily. - methocarbamol (ROBAXIN) 750 mg tablet Take 1 tablet by mouth three times a day. - oxyCODONE IR (ROXICODONE) 5 mg immediate release tablet 1-2 tablets by ORAL/FEEDING TUBE route every 6 hours as needed for up to 7 days. - calcium carbonate (OS-JARRETT 500) 500 mg calcium (1,250 mg) tablet 1 (one) time each day at the same time - gabapentin (NEURONTIN) 600 mg tablet Take 600 mg by mouth three times a day. - ELDERBERRY FRUIT ORAL Take by mouth. 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*02/08/2020 S/P total knee arthroplasty [Z96.659] 03/18/2025 Spinal stenosis of lumbar region, unspecified w*03/30/2025 Acute post-operative pain [G89.18] 03/31/2025 S/P lumbar fusion [Z98.1] 03/31/2025 Class 1 obesity due to excess calories with bod*03/31/2025 ABLA (acute blood loss anemia) [D62] 03/31/2025 Encounter Status:Closed by CARRIE MARTINES on 04/06/25 Normal [facility] Brenna 04-06-2025 CNPN Telephone (SPNSMN) NORMAREGAN Albarado ([id number]) 1950 M Date Time Provider Department 04/06/25 JOHNATHAN KRAUS SPNSMN During your visit today, we recorded the following information about you: Vibha Hurtado RN 04/06/2025 11:33 AM Addendum Neuro SPINE CARE COORDINATION POST OP FOLLOW UP VANDA call completed by RN CC. [See 04/06 nurse visit] Vibha Hurtado RN Allergies As of Date: 04/06/2025 (No Known Allergies) Date Reviewed: 03/30/2025 Reviewed by: Ramandeep Williamson RN - Fully Assessed Reason for Visit: Transition Of Care [4074] Prescriptions as of 04/06/2025 - acetaminophen (TYLENOL) 500 mg tablet 2 tablets by ORAL/FEEDING TUBE route every 8 hours. - lidocaine (SALONPAS) 4 % patch Apply 1 patch as directed once daily. - methocarbamol (ROBAXIN) 750 mg tablet Take 1 tablet by mouth three times a day. - oxyCODONE IR (ROXICODONE) 5 mg immediate release tablet 1-2 tablets by ORAL/FEEDING TUBE route every 6 hours as needed for up to 7 days. - calcium carbonate (OS-JARRETT 500) 500 mg calcium (1,250 mg) tablet 1 (one) time each day at the same time - gabapentin (NEURONTIN) 600 mg tablet Take 600 mg by mouth three times a day. - ELDERBERRY FRUIT ORAL Take by mouth. 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*02/08/2020 S/P total knee arthroplasty [Z96.659] 03/18/2025 Spinal stenosis of lumbar region, unspecified w*03/30/2025 Acute post-operative pain [G89.18] 03/31/2025 S/P lumbar fusion [Z98.1] 03/31/2025 Class 1 obesity due to excess calories with bod*03/31/2025 ABLA (acute blood loss anemia) [D62] 03/31/2025 Encounter Status:Closed by VIBHA HURTADO [facility]06/[facility] Tele[facility] (NIQ) REGAN GREEN ([id number]) 1950 M Date Time Provider Department 04/05/25 JOHNATHAN KRAUS During your visit today, we recorded the following information about you: Kaykay Gandhi 04/05/2025 8:50 AM Signed Call received for Johnathan Kraus MD regarding Regan Green. Caller: self Patient Identified by Name and : Regan Green 1950 Reason for Call: Symptoms Are you experiencing any of the following? New weakness: No Falling: No Numbness/tingling of extremities? No Location n/a Changes of bowel control: No Changes in bladder control: Yes peeing blood two days Do you have a fever and/or chills: No Post-Surgical Symptoms (within 3 months of surgery): Date of surgery: 03/30/25 Sutures or Sutter: Unsure Incision: Patient reports no issues Pain level 0-10:0/10 Location: Skin color is dark red and purple going down buttock and down right leg When did the pain begin? 04/02/25 Describe your pain: What medications are you taking for the pain? Other - Do you have any other symptoms? No Is there any additional information the provider should know? No Last Office Visit: 03/10/2025 Next scheduled appointment: Visit date not found Best number to reach caller: [phone] Best time to reach caller: anytime Is it OK to leave a detailed voice message? Yes Reyes Burkett RN 04/05/2025 9:18 AM Signed Date of Surgery w/ Radha Alonzo: 03/30/2025 Surgery: revision L4-5 decompression, L4-5 TLIF Returned call to pt. When I go to the bathroom and urinate, the stool is kind of tinted. Then when peeing, it just started burning when, its all blood coming out of me. I let it drain out and it's all blood. It happened one that night I checked out and the nurses didn't say much about it. Blood is bright red. He shared that it is a honey color to it. He had some burning when the blood is coming out, gomez like sin He is not sure if he has previously had a UTI. He feels that he has the urgency along with the burning. Negative for fever or chills, incision is clean, dry and intact, no other s/s infection. He had a prostatectomy 7-10 years ago. The bleeding has stayed the same for the last 3 voids. Denies lightheadedness, dizziness. Reviewed when to be seen in ER. Verbalized understanding. Update shared w/ EA for review. Reyes Steinberg RN 04/05/2025 10:07 AM Signed Drew Leija PA-C You 3 minutes ago (9:38 AM) Thank you, I agree. Is there a way to have him see urology or PCP for evaluation? Spoke w/ pt. PCP is Dr. 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 Shared clinical update with MIREILLE Francisco. Dr. Juan F Heller is his urologist . , update shared w/ MIREILLE Liu. Pt will meet with PCP and then touch base with urology if needed. He will monitor symptoms and be seen if things worse. EA notified. Allergies As of Date: 04/05/2025 (No Known Allergies) Date Reviewed: 03/30/2025 Reviewed by: Ramandeep Williamson RN - Fully Assessed Reason for Visit: Patient Update [1234] Prescriptions as of 04/05/2025 - acetaminophen (TYLENOL) 500 mg tablet 2 tablets by ORAL/FEEDING TUBE route every 8 hours. - lidocaine (SALONPAS) 4 % patch Apply 1 patch as directed once daily. - methocarbamol (ROBAXIN) 750 mg tablet Take 1 tablet by mouth three times a day. - oxyCODONE IR (ROXICODONE) 5 mg immediate release tablet 1-2 tablets by ORAL/FEEDING TUBE route every 6 hours as needed for up to 7 days. - calcium carbonate (OS-JARRETT 500) 500 mg calcium (1,250 mg) tablet 1 (one) time each day at the same time - gabapentin (NEURONTIN) 600 mg tablet Take 600 mg by mouth three times a day. - ELDERBERRY FRUIT ORAL Take by mouth. 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 Interpret positive results with caution. Performed By: #### U A #### [facility] ([facility]) [address] [place] [address] VIR BLOOD/HGB Moderate Abnormal Negative [facility] Comment on above: Performed By: #### U A #### [facility] ([facility]) [address] [place] [address] VIR Color (U) Bagley Abnormal Yellow, Colorless [facility] Comment on above: Performed By: #### U A #### [facility] ([facility]) [address] [place] [address] VIR Glucose Ql (U) Negative Normal Negative [facility] Comment on above: Performed By: #### U A #### [facility] ([facility]) [address] [place] [address] VIR Ketones Ql (U) Negative Normal Negative [facility] Comment on above: Performed By: #### U A #### [facility] ([facility]) [address] [place] [address] VIR Leukocyte esterase Test strip Ql (U) Negative Normal Negative [facility] Comment on above: Performed By: #### U A #### [facility] ([facility]) [address] [place] [address] VIR MUCOUS Present Abnormal None [facility] Comment on above: Performed By: #### U A #### [facility] ([facility]) [address] [place] [address] VIR Nitrite Ql (U) Negative Normal Negative [facility] Comment on above: Performed By: #### U A #### [facility] ([facility]) [address] [place] [address] VIR PH,URINE 5.5 Normal 5.0-8.5 [facility] Comment on above: Performed By: #### U A #### [facility] ([facility]) [address] [place] [address] VIR Protein Ql (U) 30 mg/dL Abnormal Negative [facility] Comment on above: Performed By: #### U A #### [facility] ([facility]) [address] [place] [address] VIR R.B.CELLS 0 Normal 0-5 [facility] Comment on above: Performed By: #### U A #### [facility] ([facility]) [address] [place] [address] VIR Specific gravity (U) [Rel density] 1.026 Normal 1.003-1.035 [facility] Comment on above: Performed By: #### U A #### [facility] ([facility]) [address] [place] [address] VIR TURBIDITY Cloudy Abnormal Clear [facility] Comment on above: Performed By: #### U A #### [facility] ([facility]) [address] [place] [address] VIR UROBILINOGEN 4 eu/dL Abnormal <1.1 eu/dL [facility] Comment on above: Performed By: #### U A #### [facility] ([facility]) [address] [place] [address] VIR W.B.CELLS 0 Normal 0-5 [facility] Comment on above: Performed By: #### U A #### [facility] ([facility]) [address] [place] [address] VIR URINE CULTUREon 04-05-2025 Bacteria identified Cx Nom (U) CULTURE RESULTS ESCHERICHIA COLI 10,000-50,000 CFU/mL Escherichia coli [ S = SUSCEPTIBLE R = RESISTANT I = INTERMEDIATE S-DO = Susceptible-dose dependent NS = Non-suscceptible NO = No Interpretation ] Organism: ESCHERICHIA COLI Antibiotic Interpretation ARCENIO Status Ampicillin S 4.0 F AMP/SULBACTAM S <=^2.0 F PIPERACIL/TAZOBACTAM S <=^4.0 F Cefazolin (non-urinary) S <=^1.0 F Cefazolin (urinary) S <=^1.0 F Ceftriaxone S <=^0.25 F Gentamicin S <=^1.0 F Ciprofloxacin S <=^0.06 F Levofloxacin S <=^0.12 F Nitrofurantoin S <=^16.0 F Trimethoprim + Sulfamethoxazole S <=^1.0 F Susceptible [facility] Comment on above: Performed By: #### U C #### [facility] ([facility]) [address] [place] [id number] VIR Basic metabolic 2000 panelon 04-02-2025 Anion gap [Moles/Vol] 9 mmol/L Normal 8-15 [facility] Comment on above: Order Comment: Speci men Type: BLOOD SPECIMENOrdering Facility: [facility] Address: [address] [place] [address] Performed By: #### 2 4321-2 ####[facility] [id number] [place] [address] [place] Calcium [Mass/Vol] 8.9 mg/dL Normal 8.5-10.2 [facility] Comment on above: Order Comment: Speci men Type: BLOOD SPECIMENOrdering Facility: [facility] Address: [address] [place] [address] Performed By: #### 2 4321-2 ####[facility] [id number] [place] [id number] [place] Chloride [Moles/Vol] 105 mmol/L Normal 98-107 [facility] Comment on above: Order Comment: Speci men Type: BLOOD SPECIMENOrdering Facility: [facility] Address: [address] [place] [address] Performed By: #### 2 4321-2 ####[facility] [id number] [place] [id number] [place] CO2 [Moles/Vol] 26 mmol/L Normal 22-30 [facility] Comment on above: Order Comment: Speci men Type: BLOOD SPECIMENOrdering Facility: [facility] Address: [address] [place] [address] Performed By: #### 2 4321-2 ####[facility] [id number] [place] [address] [place] Creatinine [Mass/Vol] 0.70 mg/dL Low 0.73-1.22 [facility] Comment on above: Order Comment: Speci men Type: BLOOD SPECIMENOrdering Facility: [facility] Address: [address] [place] [address] Performed By: #### 2 4321-2 ####[facility] [id number] [place] [address] [place] Creatinine and Glomerular filtration rate.predicted panel (S/P/Bld) 97 mL/min/1.73m??? Normal >=60 [facility] Comment on above: Order Comment: Speci men Type: BLOOD SPECIMENOrdering Facility: [facility] Address: [address] [place] [address] Result Comment: Shireen mated Glomerular Filtration Rate (eGFR) is calculated using the 2020 CKD-EPI creatinine equation. This equation utilizes serum creatinine, sex, and age as parameters. The creatinine assay has traceable calibration to isotope dilution-mass spectrometry. Refer to KDIGO guidelines for clinical interpretation. In patients with unstable renal function, e.g. those with acute kidney injury, the eGFR may not accurately reflect actual GFR. Performed By: #### 2 4321-2 ####[facility] [id number] [place] [id number] [place] Glucose [Mass/Vol] 117 mg/dL High 74-99 [facility] Comment on above: Order Comment: Speci men Type: BLOOD SPECIMENOrdering Facility: [facility] Address: [address] [place] [address] Result Comment: The [place] Diabetes Association (ADA) provides guidance for cutoff values for fasting glucose and random glucose. The ADA defines fasting as no caloric intake for at least 8 hours. Fasting plasma glucose results between 100 to 125 mg/dL indicate increased risk for diabetes (prediabetes). Fasting plasma glucose results greater than or equal to 126 mg/dL meet the criteria for diagnosis of diabetes. In the absence of unequivocal hyperglycemia, results should be confirmed by repeat testing. In a patient with classic symptoms of hyperglycemia or hyperglycemic crisis, random plasma glucose results greater than or equal to 200 mg/dL meet the criteria for diagnosis of diabetes. Reference: Standards of Medical Care in Diabetes 2016, Canadian Diabetes Association. Diabetes Care. 2016.39(Suppl 1). Performed By: #### 2 4321-2 ####[facility] [id number] [place] [address] [place] Potassium [Moles/Vol] 3.9 mmol/L Normal 3.7-5.1 [facility] Comment on above: Order Comment: Speci men Type: BLOOD SPECIMENOrdering Facility: [facility] Address: [address] [place] [address] Performed By: #### 2 4321-2 ####[facility] [id number] [place] [address] [place] Sodium [Moles/Vol] 140 mmol/L Normal 136-144 [facility] Comment on above: Order Comment: Speci men Type: BLOOD SPECIMENOrdering Facility: [facility] Address: [address] [place] [address] Performed By: #### 2 4321-2 ####[facility] [id number] [place] [address] [place] Urea nitrogen [Mass/Vol] 9 mg/dL Normal 9-24 [facility] Comment on above: Order Comment: Speci men Type: BLOOD SPECIMENOrdering Facility: [facility] Address: [address] [place] [address] Performed By: #### 2 4321-2 ####[facility] [id number] [place] [address] [place] CBC panel Auto (Bld)on 04-02 Erythrocyte distribution width (RBC) [Ratio] 12.8 % Normal 11.5-15.0 [facility] Comment on above: Order Comment: Speci men Type: BLOOD SPECIMENOrdering Facility: [facility] Address: [address] [place] [address] Performed By: #### 5 8410-2 ####[facility] [id number] [place] [address] [place] Hematocrit (Bld) [Volume fraction] 36.5 % Low 39.0-51.0 [facility] Comment on above: Order Comment: Speci men Type: BLOOD SPECIMENOrdering Facility: [facility] Address: [address] [place] [address] Performed By: #### 5 8410-2 ####[facility] [id number] [place] [address] [place] Hemoglobin (Bld) [Mass/Vol] 12.1 g/dL Low 13.0-17.0 [facility] Comment on above: Order Comment: Speci men Type: BLOOD SPECIMENOrdering Facility: [facility] Address: [address] [place] [address] Performed By: #### 5 8410-2 ####[facility] [id number] [place] [id number] [place] MCH (RBC) [Entitic mass] 30.9 pg Normal 26.0-34.0 [facility] Comment on above: Order Comment: Speci men Type: BLOOD SPECIMENOrdering Facility: [facility] Address: [address] [place] [address] Performed By: #### 5 8410-2 ####[facility] [id number] [address] [address] [place] MCHC (RBC) [Mass/Vol] 33.2 g/dL Normal 30.5-36.0 [facility] Comment on above: Order Comment: Speci men Type: BLOOD SPECIMENOrdering Facility: [facility] Address: [address] [place] [address] Performed By: #### 5 8410-2 ####[facility] [id number] [place] [address] [place] MCV (RBC) [Entitic vol] 93.1 fL Normal 80.0-100.0 [facility] Comment on above: Order Comment: Speci men Type: BLOOD SPECIMENOrdering Facility: [facility] Address: [address] [place] [address] Performed By: #### 5 8410-2 ####[facility] [id number] [place] [address] [place] Nucleated RBC (Bld) [#/Vol] 10*3/uL Normal <0.01 [facility] Comment on above: Order Comment: Speci men Type: BLOOD SPECIMENOrdering Facility: [facility] Address: [address] [place] [address] Performed By: #### 5 8410-2 ####[facility] [id number] [place] [address] [place] Platelet mean volume (Bld) [Entitic vol] 8.9 fL Low 9.0-12.7 [facility] Comment on above: Order Comment: Speci men Type: BLOOD SPECIMENOrdering Facility: [facility] Address: [address] [place] [address] Performed By: #### 5 8410-2 ####[facility] [id number] [place] [id number] [place] Platelets (Bld) [#/Vol] 212 10*3/uL Normal 150-400 [facility] Comment on above: Order Comment: Speci men Type: BLOOD SPECIMENOrdering Facility: [facility] Address: [address] [place] [address] Performed By: #### 5 8410-2 ####[facility] [id number] [place] [address] [place] RBC (Bld) [#/Vol] 3.92 10*6/uL Low 4.20-6.00 [facility] Comment on above: Order Comment: Speci men Type: BLOOD SPECIMENOrdering Facility: [facility] Address: [address] [place] [address] Performed By: #### 5 8410-2 ####[facility] [id number] [place] [address] [place] WBC (Bld) [#/Vol] 8.52 10*3/uL Normal 3.70-11.00 [facility] Comment on above: Order Comment: Speci men Type: BLOOD SPECIMENOrdering Facility: [facility] Address: [address] [place] [address] Performed By: #### 5 8410-2 ####[facility] [id number] [place] [id number] [facility] CNDSon 04-02-2025 CNDS HNO ID: [id number] Author: JOHNATHAN KRAUS MD Service: Neurosurgery Author Type: Physician Type: Discharge Summary Filed: 04/09/2025 09:55 Note Text: DISCHARGE SUMMARY [facility] PATIENT NAME: Regan Green ADMISSION DATE: 03/30/2025 DISCHARGE DATE: 04/02/2025 Attending Physician: Johnathan Kraus MD PCP: Sumanth Light MD [phone] Code Status: Not on file Discharged Against Medical Advice? No Highest Readmission Risk Score: 3 The 30 day readmissions risk score is derived from an internally validated risk model which evaluates patient level characteristics, utilization history, medication orders and lab results up until the day of discharge. Patients with a score of 39 or above are considered highest risk for readmission. Specific patient level drivers will be listed at the bottom of the summary. The 30 day readmissions risk score is derived from an internally validated risk model which evaluates patient level characteristics, utilization history, medication orders and lab results up until the day of discharge. Patients with a score of 40 or above are considered highest risk for readmission. Specific patient level drivers will be listed at the bottom of the summary HPI: Operations During Hospitalization: 03/30/2025: revision L4-5 decompression, L4-5 TLIF Operative Duration: 5 Hr 34 Min 55 Sec Implants Used for Surgery: Implant Name Type Inv. Item Serial No. [employer] Specialist Lot No. [id number] No. Used Action I-FACTOR PEPTIDE ENHANCED BONE GRAFT PUTTY 5CC - [id number] Graft I-FACTOR PEPTIDE ENHANCED BONE GRAFT PUTTY 5CC [employer] [id number] Implanted SCREW JUSTIN 3 JAY 6.5MM 45MM BONE POLYAXIAL REDUCTION NONSTERILE SPINE Screw PAULINA 4 Implanted SOLITARIO JUSTIN 3 6MM TITANIUM 40MM SPINAL RADIOLUCENT - [id number] Solit[employer] SOLITARIO JUSTIN 3 6MM TITANIUM 40MM SPINAL RADIOLUCENT PAULINA SPINE 2 Implanted SCREW JUSTIN 3 TITANIUM SET RADHA SPINE - [id number] Implant SCREW JUSTIN 3 TITANIUM SET RADHA SPINE PAULINA SPINE 4 Implanted Surgical Specimens: * No specimens in log * Incision/Procedure Start Time: 1:09 PM Incision Close/Procedure End Time: 4:50 PM Surgeons and Role: * Johnathan Kraus MD - Primary * Jessica Lee MD - Fellow Priming Mixture Carrier: Howard Yang RN Priming Mixture Carrier (Relief): Radha Sainz RN; Joslyn Howard RN Scrub Person: Luis Alberto Navarro ST Scrub Person (Relief): Omaira Lara ST; Silva Hand RN Procedures During Hospitalization: No procedures performed Hospital Course: 75 y/o M who presents for elective spine surgery. The patient was electively admitted to the [facility]. After being optimized for surgery by the PACE teams, Regan Green was identified and brought into the Operating Room by the anesthesia and nursing teams. Prior to surgery the patient was treated with antibiotics and continued with antibiotics postoperatively. The patient underwent a revision L4-5 decompression, L4-5 TLIF done under General. The patient tolerated the procedure and was taken to PACU, and then to the hospital surgical floor when PACU criteria was made. The patient was then transferred up to H060 049/H060-49 hospital room for postoperative management. Patient was fitted with fitted with sequential compression devices and used Heparin for DVT prophylaxis. POD1: Tolerated surgery well. Began mobilizing. Skilled for [facility] POD2: Drain removed. 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 Continued to mobilize. POD3: PRODUCE LABORER discontinued, pain remained controlled. Had BM. On date of discharge pain well controlled on oral medications. Patient mobilizing with minimal assistance. Patient voiding and passing flatus. Patient was discharged to home in stable condition. Final Diagnosis: Lumbar stenosis Active Hospital Problems as of 04/02/2025 Noted - Resolved A Hospital * (Principal) Spinal stenosis of lumbar region, unspecified whether neurogenic claudication present 03/30/2025 - Present Yes Current Assessment AND Plan Assessment: s/p revision L4-5 decompression, L4-5 TLIF PLAN: -Pain control: continue PO pain regimen -Drain removed -PT/OT rec [facility], patient declining -Upright x-rays reviewed -DVT ppx: continue IPCs, heparin SQ bid -OOB for meals, mobilize at least 3x daily -Bowel regimen -D/c today -D/w Dr. Kraus Acute post-operative pain 03/31/2025 - Present Yes Current Assessment AND Plan Assessment: Post-op pain PLAN: -PRODUCE LABORER stopped -Continue prn PO pain regimen S/P lumbar fusion 03/31/2025 - Present Yes Current Assessment AND Plan Assessment: S/p revision L4-5 decompression, L4-5 TLIF PLAN: -See spinal stenosis POC Class 1 obesity due to excess calories with body mass index (BMI) of 30.0 to 30.9 in adult 03/31/2025 - Present Yes Current Assessment AND Plan Assessment: Obesity -[facility] weight loss info ABLA (acute blood loss anemia) 03/31/2025 - Present Yes Current Assessment AND Plan (more content not included)... Normal [facility] THERAPY NTon 04-02-2025 THERAPY NT HNO ID: [id number] Author: DICK SCHMITT, PT Service: Physical Therapy Author Type: Physical Therapist Type: Therapy (PT/OT/Speech/Resp) Filed: 04/02/2025 15:32 Note Text: PHYSICAL THERAPY MISSED VISIT SERVICE DATE: 04/02/2025 SERVICE TIME: 1443 ROOM: [place] [address] Patient not seen due to Declined to Participate (pt scheduled to DC today). SIGNATURE: Dick Schmitt, PT PATIENT NAME: Regan Green DATE: April 02, 2025 TIME: 3:31 PM Normal [facility] Basic metabolic 2000 panelon 04-01-2025 Anion gap [Moles/Vol] 9 mmol/L Normal 8-15 [facility] Comment on above: Order Comment: Speci men Type: BLOOD SPECIMENOrdering Facility: [facility] Address: [address] [place] [address] Performed By: #### 2 4321-2 ####[facility] [id number] [place] [address] [place] Calcium [Mass/Vol] 8.6 mg/dL Normal 8.5-10.2 [facility] [facility] Comment on above: Order Comment: Speci men Type: BLOOD SPECIMENOrdering Facility: [facility] Address: [address] [place] [address] Performed By: #### 2 4321-2 ####[facility] [id number] [place] [address] [place] Chloride [Moles/Vol] 108 mmol/L High 98-107 [facility] Comment on above: Order Comment: Speci men Type: BLOOD SPECIMENOrdering Facility: [facility] Address: [address] [place] [address] Performed By: #### 2 4321-2 ####[facility] [id number] [place] [id number] [place] CO2 [Moles/Vol] 24 mmol/L Normal 22-30 [facility] Comment on above: Order Comment: Speci men Type: BLOOD SPECIMENOrdering Facility: [facility] Address: [address] [place], [place] [address] Performed By: #### 2 4321-2 ####[facility] [id number] [address] [address] [place] Creatinine [Mass/Vol] 0.77 mg/dL Normal 0.73-1.22 [facility] Comment on above: Order Comment: Lucy thompson Type: BLOOD SPECIMENOrdering Facility: [facility] Address: [address] [place] [address] Performed By: #### 2 4321-2 ####[facility] LABIA [id number] [place] [id number] [place] [facility] Creatinine and Glomerular filtration rate.predicted panel (S/P/Bld) 95 mL/min/1.73m??? Normal >=60 [facility] Comment on above: Order Comment: Lucy thompson Type: BLOOD SPECIMENOrdering Facility: [facility] Address: [address] [place] [address] Result Comment: Shireen mated Glomerular Filtration Rate (eGFR) is calculated using the 2020 CKD-EPI creatinine equation. This equation utilizes serum creatinine, sex, and age as parameters. The creatinine assay has traceable calibration to isotope dilution-mass spectrometry. Refer to KDIGO guidelines for clinical interpretation. In patients with unstable renal function, e.g. those with acute kidney injury, the eGFR may not accurately reflect actual GFR. Performed By: #### 2 4321-2 ####[facility]IA [id number] [address] [address] [place] Glucose [Mass/Vol] 87 mg/dL Normal 74-99 [facility] Comment on above: Order Comment: Lucy thompson Type: BLOOD SPECIMENOrdering Facility: [facility] Address: [address] [place] [id number] Result Comment: The Canadian Diabetes Association (ADA) provides guidance for cutoff values for fasting glucose and random glucose. The ADA defines fasting as no caloric intake for at least 8 hours. Fasting plasma glucose results between 100 to 125 mg/dL indicate increased risk for diabetes (prediabetes). Fasting plasma glucose results greater than or equal to 126 mg/dL meet the criteria for diagnosis of diabetes. In the absence of unequivocal hyperglycemia, results should be confirmed by repeat testing. In a patient with classic symptoms of hyperglycemia or hyperglycemic crisis, random plasma glucose results greater than or equal to 200 mg/dL meet the criteria for diagnosis of diabetes. Reference: Standards of Medical Care in Diabetes 2016, Canadian Diabetes Association. Diabetes Care. 2016.39(Suppl 1). Performed By: #### 2 4321-2 ####[facility] [id number] [place] [address] [place] Potassium [Moles/Vol] 4.3 mmol/L Normal 3.7-5.1 [facility] Comment on above: Order Comment: Speci men Type: BLOOD SPECIMENOrdering Facility: [facility] Address: [address] [place] [address] Performed By: #### 2 4321-2 ####[facility] LABIA [id number] [place] [id number] [place] Sodium [Moles/Vol] 141 mmol/L Normal 136-144 [facility] Comment on above: Order Comment: Speci men Type: BLOOD SPECIMENOrdering Facility: [facility] Address: [address] [place] [address] Performed By: #### 2 4321-2 ####[facility] LABIA [id number] [place] [id number] [place] Urea nitrogen [Mass/Vol] 15 mg/dL Normal 9-24 [facility] Comment on above: Order Comment: Speci men Type: BLOOD SPECIMENOrdering Facility: [facility] Address: [address] [place] [address] Performed By: #### 2 4321-2 ####[facility] LABIA [id number] [place] [id number] [place] CBC panel Auto (Bld)on 04-01 Erythrocyte distribution width (RBC) [Ratio] 13.2 % Normal 11.5-15.0 [facility] Comment on above: Order Comment: Speci men Type: BLOOD SPECIMENOrdering Facility: [facility] Address: [address] [place] [address] Performed By: #### 5 8410-2 ####[facility]CL[facility] [id number] [place] [address] [place] Hematocrit (Bld) [Volume fraction] 34.3 % Low 39.0-51.0 [facility] Comment on above: Order Comment: Speci men Type: BLOOD SPECIMENOrdering Facility: [facility] Address: [address] [place] [address] Performed By: #### 5 8410-2 ####[facility]CL[facility] [id number] [place] [address] [place] Hemoglobin (Bld) [Mass/Vol] 11.0 g/dL Low 13.0-17.0 [facility] Comment on above: Order Comment: Speci men Type: BLOOD SPECIMENOrdering Facility: [facility] Address: [address] [place] [address] Performed By: #### 5 8410-2 ####[facility]CL[facility] [id number] [place] [address] [place] MCH (RBC) [Entitic mass] 30.6 pg Normal 26.0-34.0 [facility] Comment on above: Order Comment: Speci men Type: BLOOD SPECIMENOrdering Facility: [facility] Address: [address] [place] [address] Performed By: #### 5 8410-2 ####[facility] [id number] [place] [id number] [place] MCHC (RBC) [Mass/Vol] 32.1 g/dL Normal 30.5-36.0 [facility] Comment on above: Order Comment: Speci men Type: BLOOD SPECIMENOrdering Facility: [facility] Address: [address] [place] [address] Performed By: #### 5 8410-2 ####[facility]CL[facility] [id number] [place] [address] [place] MCV (RBC) [Entitic vol] 95.3 fL Normal 80.0-100.0 [facility] Comment on above: Order Comment: Speci men Type: BLOOD SPECIMENOrdering Facility: [facility] Address: [address] [place] [address] Performed By: #### 5 8410-2 ####[facility] LABIA [id number] [place] [address] [place] Nucleated RBC (Bld) [#/Vol] 10*3/uL Normal <0.01 [facility] Comment on above: Order Comment: Speci men Type: BLOOD SPECIMENOrdering Facility: [facility] Address: [address] [place] [address] Performed By: #### 5 8410-2 ####[facility]IA [id number] [place] [address] [place] Platelet mean volume (Bld) [Entitic vol] 9.6 fL Normal 9.0-12.7 [facility] Comment on above: Order Comment: Speci men Type: BLOOD SPECIMENOrdering Facility: [facility] Address: [address] [place] [address] Performed By: #### 5 8410-2 ####[facility]IA [id number] [place] [address] [place] Platelets (Bld) [#/Vol] 210 10*3/uL Normal 150-400 [facility] Comment on above: Order Comment: Speci men Type: BLOOD SPECIMENOrdering Facility: [facility] Address: [address] [place] [address] Performed By: #### 5 8410-2 ####[facility] [id number] [place] [address] [place] RBC (Bld) [#/Vol] 3.60 10*6/uL Low 4.20-6.00 [facility] Comment on above: Order Comment: Speci men Type: BLOOD SPECIMENOrdering Facility: [facility] Address: [address] [place] [address] Performed By: #### 5 8410-2 ####[facility]CL[facility] [id number] [place] WBC (Bld) [#/Vol] 7.83 10*3/uL Normal 3.70-11.00 [facility] Comment on above: Order Comment: Speci men Type: BLOOD SPECIMENOrdering Facility: [facility] Address: [address] [place] [address] Performed By: #### 5 8410-2 ####[facility] [id number] [place] [id number] [facility] THERAPY NTon 04-01-2025 THERAPY NT HNO ID: [id number] Author: DICK SCHMITT, PT Service: Physical Therapy Author Type: Physical Therapist Type: Therapy (PT/OT/Speech/Resp) Filed: 04/01/2025 15:36 Note Text: Physical Therapy Treatment Summary SERVICE DATE: 04/01/2025 SERVICE TIME: 1443 to 1525 ROOM: [place] [address] PT 6 Clicks Score: 19 DISCHARGE RECOMMENDATIONS Home Recommended Discharge Disposition Comments: pt reports he is likely to decline HHPT Anticipated Discharge Needs: Physical Assist at Home Physical Assist at Home for: Cleaning, Laundry, Meals, Self Care, Shopping, Transportation Recommended Discharge Equipment: No equipment needs anticipated ASSESSMENT Response to Therapy Interventions: Good Participation in Activities, Improved Tolerance for Activity, Pain Pt gait stable with FWW in hallway. Pt with intermittent sharp shooting pain left low back. May benefit from pain patch. 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 SUBJECTIVE pt agreeable to PT THERAPY DIAGNOSIS Reduced mobility-other TREATMENT INTERVENTIONS Therapeutic Activity (15543), Gait Training (71133) Timed Code Treatment (minutes): 40 Skilled Treatment Time (minutes): 40 TRAINING AND EDUCATION PROVIDED Anatomy and Impact on Deficits, Assistive Device Use, Bed Mobility, Benefits of In-Hospital Mobility, Discharge Planning, Energy Conservation, Expected Functional Level, Falls Prevention, Gait Pattern, Reduction of Deviations, Handout Issued, Home Safety, Positioning, Precautions/Restricti ons, Pain Neuroscience, Patient Exercise/Therapy Program Support Needs, Role of Physical Therapy, Sitting Balance THERAPEUTIC SKILLS USED Activity Dosing, Assessment of Tolerance Including Vitals Response to Activity, Cues for Sequencing/Proper Technique for Activity, Cuing Verbal, Cuing Visual, Management of Critical Lines, Tubes and/or Drains, Movement Facilitation, Teach-Back for Education, Postural Alignment Correction, Physical Assist FUNCTIONAL STATUS Bed Mobility Rolling: Stand By Assistance Supine To Sit: Contact Guard Assistance Sit to Supine: Contact Guard Assistance Scooting: Contact Guard Assistance Transfers Sit To Stand: Contact Guard Assistance Stand To Sit: Contact Guard Assistance Bed to Chair Contact Guard Assistance Bed To Chair Transfer Type: Stepping Bed To Chair Transfer Equipment: Wheeled Walker Gait Contact Guard Assistance Gait Device: Wheeled Walker Gait Distance (feet): 125 Stairs GOALS Patient will demonstrate progress with functional mobility to allow safe discharge to home with available support and/or physical assistance. Rehab Potential: Good Progress Toward Goals: Progressing as expected ACUTE CARE TREATMENT PLAN PT Frequency: 5 Times Per Week Treatment Interventions: Education, Self Care / Home Management, Energy Conservation Training, Joint Mobility, Functional Mobility Training, Strengthening, Balance Training, Neuromuscular Re-education Plan for Next Visit: Bed Mobility, Gait Training, Standing Tolerance, Stair Training SIGNATURE: Dick Schmitt, PT PATIENT NAME: Regan Green DATE: April 01, 2025 TIME: 3:36 PM Normal [facility] THERAPY NT HNO ID: [id number] Author: EMMA MARIA, OTR/L Service: Occupational Therapy Author Type: Occupational Therapist Type: Therapy (PT/OT/Speech/Resp) Filed: 04/01/2025 12:30 Note Text: Occupational Therapy Evaluation Summary SERVICE DATE: 04/01/2025 SERVICE TIME: 1132 to 1202 ROOM: H[facility] OT 6 Clicks Score: 22 DISCHARGE RECOMMENDATIONS Home Recommended Discharge Disposition Comments: with continued assist from family for ADLs/IADLs to ensure safety/adherance to precautions Anticipated Discharge Needs: Physical Assist at Home Physical Assist at Home for: Cleaning, Laundry, Meals, Self Care, Shopping, Transportation Recommended Discharge Equipment: Other: See Comment (Toilet Wiping Aide) ASSESSMENT Response to Therapy Interventions: Good Participation in Activities, Pain pt eager to participate; able to complete OOB ADLs with CGA and use of concrete paving machine operator to don pants with concrete paving machine operator; increased education/cues to adhere to precautions; pt safe to return home with family assist. 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 SUBJECTIVE I was lightheaded earlier COGNITION Cog 6 Start of Session Total Points (Max Score = 24): 24 (04/01/25) Cog 6 End of Session Total Points (Max Score = 24): 24 (04/01/25) 4AT Score: 0 (04/01/25) Delirium Positive/Negative: Negative (04/01/25) THERAPY DIAGNOSIS General symptoms and signs-other TREATMENT INTERVENTIONS Evaluation, Self Group Home Management (67077) Timed Code Treatment (minutes): 15 Skilled Treatment Time (minutes): 30 TRAINING AND EDUCATION PROVIDED Activity Adaptation/Compensato ry Strategies, Adaptive Equipment/DME, Assistive Device Use, Bed Mobility, Benefits of In-Hospital Mobility, Discharge Planning, Functional Mobility Involving ADLs, Grooming Tasks, Home Set-up/Modifications, IADLs/Home Management, Identification of Systems of Support, Insight into Deficits, Life Roles/Routines/Habits , Lower Extremity Bathing, Lower Extremity Dressing, Precautions/Restricti ons, Role of Occupational Therapy, Safety/Judgment, Toileting , Transfer - Bed to Chair, Transfer - Sit to Stand, Upper Extremity Bathing, Upper Extremity Dressing THERAPEUTIC SKILLS USED Activity Dosing, Assessment of Tolerance Including Vitals Response to Activity, Cuing Verbal, Cuing Tactile, Cuing Visual, Therapeutic Use of Self, Physical Assist FUNCTIONAL STATUS Activities of Daily Living Assist Level Additional Information Feeding Set Up Grooming Stand By Assistance Bathing Upper Body Stand By Assistance Bathing Lower Body Minimal Assistance Dressing Upper Body Stand By Assistance Dressing Lower Body Modified Independent, Additional Information use of concrete paving machine operator to don pants, increased cues to maintain prec. Toileting Contact Guard Assistance Mobility Assist Level Additional Information Bed Mobility Rolling: Stand By Assistance Supine To Sit: Stand By Assistance Sit To Supine: Stand By Assistance Sit to Stand Contact Guard Assistance Stand to Sit Contact Guard Assistance Bed to Chair Contact Guard Assistance Bed To Chair Transfer Type: Stepping Bed To Chair Transfer Equipment: Wheeled Walker Toilet/Commode Shower Functional Mobility Contact Guard Assistance, Additional Information Functional Mobility Device: Wheeled Walker small household distance to trasport WC GOALS Patient will demonstrate progress with self-care, cognitive and/or coping needs identified to allow safe discharge to home with available support and/or physical assistance. Rehab Potential: Good Good Rehab Potential Due To: Current objective clinical presentation, Good overall health status, Good support system/ coping skills, Good motivation Progress Toward Goals: Progressing as expected ACUTE CARE TREATMENT PLAN OT Frequency: Discontinue Therapy Services Reasons Therapy Services Discontinued: Goals met Treatment Interventions: Education, Self Care/Home Management, Coping Strategy Education, Pain Management, Functional Mobility Training SIGNATURE: ALINA Rosen/Concepcion PATIENT NAME: Regan Green DATE: April 01, 2025 TIME: 12:30 PM Normal [facility] XR LUMBAR 2V AP/LATon 2024 XR LUMBAR 2V AP/LAT * * *Final Report* * * DATE OF EXAM: Apr 01 2025 12:15PM JENNIFER [id number] - XR LUMBAR 2V AP/LAT / PROCEDURE REASON: Postoperative assessment * * * * Physician Interpretation * * * * EXAMINATION: XR LUMBAR 2V AP/LAT HISTORY: Postoperative assessment. TECHNIQUE: XR LUMBAR 2V AP/LAT Laterality: Number of different views (projections): 2 views M: XB_1 COMPARISON: 03/30/2025 RESULT: Counting Reference: Lumbosacral junction.. For the purposes of this report, the most caudal normal disc space in the lumbar region will be labeled as L5-S1. The iliac crest will serve as a secondary landmark to identify the L4-5 level. Exceptions: none Posterior fusion hardware at L4-5 appears intact and without loosening. There are posterior skin adri. Lumbar alignment shows improvement in anterolisthesis of L4 on L5. Plate and screw fixation around the left acetabulum. No acute fracture or dislocation. There are no bony erosions. IMPRESSION: Intact postoperative changes. Business Taxes Specialist: LU Transcribe Date/Time: Apr 01 2025 12:36P Dictated by : JOHNATHAN URIBE MD This examination was interpreted and the report reviewed and electronically signed by: JOHNATHAN URIBE MD on Apr 01 2025 12:37PM EST [id number] Normal [facility] Basic metabolic 2000 panelon 03-31-2025 Anion gap [Moles/Vol] 11 mmol/L Normal 8-15 [facility] Comment on above: Order Comment: Speci men Type: BLOOD SPECIMENOrdering Facility: [facility] Address: [address] [place] [address] Performed By: #### 2 4321-2 ####[facility] LABCL[facility] [id number] [place] [address] [place] Calcium [Mass/Vol] 8.6 mg/dL Normal 8.5-10.2 [facility] Comment on above: Order Comment: Speci men Type: BLOOD SPECIMENOrdering Facility: [facility] Address: [address] [place] [address] Performed By: #### 2 4321-2 ####[facility]CL[facility] [id number] [place] [address] [place] Chloride [Moles/Vol] 106 mmol/L Normal 98-107 [facility] Comment on above: Order Comment: Speci men Type: BLOOD SPECIMENOrdering Facility: [facility] Address: [address] [place] [address] Performed By: #### 2 4321-2 ####[facility] LABCL[facility] [id number] [place] [id number] [place] CO2 [Moles/Vol] 24 mmol/L Normal 22-30 [facility] Comment on above: Order Comment: Speci men Type: BLOOD SPECIMENOrdering Facility: [facility] Address: [address] [place] [address] Performed By: #### 2 4321-2 ####[facility] LABIA [id number] [place] [address] [place] Creatinine [Mass/Vol] 0.64 mg/dL Low 0.73-1.22 [facility] Comment on above: Order Comment: Speci men Type: BLOOD SPECIMENOrdering Facility: [facility] Address: [address] [place] [address] Performed By: #### 2 4321-2 ####[facility] LABIA [id number] [place] [address] [place] Creatinine and Glomerular filtration rate.predicted panel (S/P/Bld) 100 mL/min/1.73m??? Normal >=60 [facility] Comment on above: Order Comment: Speci men Type: BLOOD SPECIMENOrdering Facility: [facility] Address: [address] [place] [address] Result Comment: Shireen mated Glomerular Filtration Rate (eGFR) is calculated using the 2020 CKD-EPI creatinine equation. This equation utilizes serum creatinine, sex, and age as parameters. The creatinine assay has traceable calibration to isotope dilution-mass spectrometry. Refer to KDIGO guidelines for clinical interpretation. In patients with unstable renal function, e.g. those with acute kidney injury, the eGFR may not accurately reflect actual GFR. Performed By: #### 2 4321-2 ####[facility]CL[facility] [id number] [place] [address] [place] Glucose [Mass/Vol] 100 mg/dL High 74-99 [facility] Comment on above: Order Comment: Speci men Type: BLOOD SPECIMENOrdering Facility: [facility] Address: [address] [place] [address] Result Comment: The Canadian Diabetes Association (ADA) provides guidance for cutoff values for fasting glucose and random glucose. The ADA defines fasting as no caloric intake for at least 8 hours. Fasting plasma glucose results between 100 to 125 mg/dL indicate increased risk for diabetes (prediabetes). Fasting plasma glucose results greater than or equal to 126 mg/dL meet the criteria for diagnosis of diabetes. In the absence of unequivocal hyperglycemia, results should be confirmed by repeat testing. In a patient with classic symptoms of hyperglycemia or hyperglycemic crisis, random plasma glucose results greater than or equal to 200 mg/dL meet the criteria for diagnosis of diabetes. Reference: Standards of Medical Care in Diabetes 2016, Canadian Diabetes Association. Diabetes Care. 2016.39(Suppl 1). Performed By: #### 2 4321-2 ####[facility]CL[facility] [id number] [place] [address] [place] Potassium [Moles/Vol] 4.2 mmol/L Normal 3.7-5.1 [facility] Comment on above: Order Comment: Speci men Type: BLOOD SPECIMENOrdering Facility: [facility] Address: [address] [place] [address] Performed By: #### 2 4321-2 ####[facility]CL[facility] [id number] [place] [id number] [place] Sodium [Moles/Vol] 141 mmol/L Normal 136-144 [facility] Comment on above: Order Comment: Speci men Type: BLOOD SPECIMENOrdering Facility: [facility] Address: [address] [place] [address] Performed By: #### 2 4321-2 ####[facility]CL[facility] [id number] [address], [facility] [place] Urea nitrogen [Mass/Vol] 12 mg/dL Normal 9-24 [facility] Comment on above: Order Comment: Speci men Type: BLOOD SPECIMENOrdering Facility: [facility] Address: [address] [place] [address] Performed By: #### 2 4321-2 ####[facility]CL[facility] [id number] [address], [address] [place] CBC panel Auto (Bld)on 03-31 Erythrocyte distribution width (RBC) [Ratio] 12.9 % Normal 11.5-15.0 [facility] Comment on above: Order Comment: Speci men Type: BLOOD SPECIMENOrdering Facility: [facility] Address: [address] [place] [address] Performed By: #### 5 8410-2 ####[facility]IA [id number] [address], [address] [place] Hematocrit (Bld) [Volume fraction] 34.9 % Low 39.0-51.0 [facility] Comment on above: Order Comment: Speci men Type: BLOOD SPECIMENOrdering Facility: [facility] Address: [address] [place] [address] Performed By: #### 5 8410-2 ####[facility]CL[facility] [id number] [address], [place] [address] [place] Hemoglobin (Bld) [Mass/Vol] 11.5 g/dL Low 13.0-17.0 [facility] Comment on above: Order Comment: Speci men Type: BLOOD SPECIMENOrdering Facility: [facility] Address: [address] [place] [address] Performed By: #### 5 8410-2 ####[facility] [facility] [id number] [address], [facility] [place] MCH (RBC) [Entitic mass] 30.6 pg Normal 26.0-34.0 [facility] Comment on above: Order Comment: Speci men Type: BLOOD SPECIMENOrdering Facility: [facility] Address: [address] [place] [address] Performed By: #### 5 8410-2 ####[facility] [id number] [place] [address] [place] MCHC (RBC) [Mass/Vol] 33.0 g/dL Normal 30.5-36.0 [facility] Comment on above: Order Comment: Speci men Type: BLOOD SPECIMENOrdering Facility: [facility] Address: [address] [place] [address] Performed By: #### 5 8410-2 ####[facility] [id number] [place] [address] [place] MCV (RBC) [Entitic vol] 92.8 fL Normal 80.0-100.0 [facility] Comment on above: Order Comment: Speci men Type: BLOOD SPECIMENOrdering Facility: [facility] Address: [address] [place] [address] Performed By: #### 5 8410-2 ####[facility] [id number] [place] [address] [place] Nucleated RBC (Bld) [#/Vol] 10*3/uL Normal <0.01 [facility] Comment on above: Order Comment: Speci men Type: BLOOD SPECIMENOrdering Facility: [facility] Address: [address] [place] [address] Performed By: #### 5 8410-2 ####[facility] [id number] [place] [address] [place] Platelet mean volume (Bld) [Entitic vol] 9.5 fL Normal 9.0-12.7 [facility] Comment on above: Order Comment: Speci men Type: BLOOD SPECIMENOrdering Facility: [facility] Address: [address] [place] [address] Performed By: #### 5 8410-2 ####[facility] [id number] [place] [id number] [place] Platelets (Bld) [#/Vol] 218 10*3/uL Normal 150-400 [facility] Comment on above: Order Comment: Speci men Type: BLOOD SPECIMENOrdering Facility: [facility] Address: [address] [place] [address] Performed By: #### 5 8410-2 ####[facility] [id number] [place] [id number] [facility] [place] RBC (Bld) [#/Vol] 3.76 10*6/uL Low 4.20-6.00 [facility] Comment on above: Order Comment: Speci men Type: BLOOD SPECIMENOrdering Facility: [facility] Address: [address] [place] [address] Performed By: #### 5 8410-2 ####[facility] [id number] [place] [id number] [place] WBC (Bld) [#/Vol] 11.36 10*3/uL High 3.70-11.00 [facility] Comment on above: Order Comment: Speci men Type: BLOOD SPECIMENOrdering Facility: [facility] Address: [address] [place] [address] Performed By: #### 5 8410-2 ####[facility] [id number] [address] [address] [facility] THERAPY NTon 03-31-2025 THERAPY NT HNO ID: [id number] Author: BERT GENTILE PT Service: Physical Therapy Author Type: Physical Therapist Type: Therapy (PT/OT/Speech/Resp) Filed: 03/31/2025 09:46 Note Text: Physical Therapy Evaluation Summary SERVICE DATE: 03/31/2025 SERVICE TIME: 829 to 929 ROOM: [place] [address] PT 6 Clicks Score: 19 DISCHARGE RECOMMENDATIONS Home PT Recommended Discharge Disposition Comments: pt reports he is likely to decline HHPT Anticipated Discharge Needs: Physical Assist at Home Physical Assist at Home for: Cleaning, Laundry, Meals, Shopping, Transportation Recommended Discharge Equipment: No equipment needs anticipated ASSESSMENT Response to Therapy Interventions: Good Participation in Activities, On-Track to Achieve Discharge Goals, Pain, Requires Additional Time to Complete Activities VSS on RA; Pt is motivated and tolerates session well with moderate post-op pain. Pt requires grossly CGA for all mobility including ambulation of short HH distance with WW. Increased time required for position changes d/t subjective lightheadedness reported, BPs stable. PT provides verbal and written education regarding post-op precautions and walker safety with pt verbalizing understanding. 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 SUBJECTIVE pt agreeable to PT THERAPY DIAGNOSIS Reduced mobility-other TREATMENT INTERVENTIONS $ Evaluation-Moderate (55469) Billed Units: 1 unit Therapeutic Activity (08401) Treatment Minutes: 25 $ Therapeutic Activity (90765) Billed Units: 2 units Gait Training (47644) Treatment Minutes: 20 $ Gait Training (99859) Billed Units: 1 unit Evaluation, Therapeutic Activity (76423), Gait Training (06501) Timed Code Treatment (minutes): 45 Skilled Treatment Time (minutes): 60 TRAINING AND EDUCATION PROVIDED Anatomy and Impact on Deficits, Assistive Device Use, Bed Mobility, Benefits of In-Hospital Mobility, Discharge Planning, Energy Conservation, Expected Functional Level, Falls Prevention, Gait Pattern, Reduction of Deviations, Handout Issued, Home Safety, Positioning, Precautions/Restricti ons, Pain Neuroscience, Patient Exercise/Therapy Program Support Needs, Role of Physical Therapy, Sitting Balance THERAPEUTIC SKILLS USED Activity Dosing, Assessment of Tolerance Including Vitals Response to Activity, Cues for Sequencing/Proper Technique for Activity, Cuing Verbal, Cuing Visual, Management of Critical Lines, Tubes and/or Drains, Movement Facilitation, Teach-Back for Education, Postural Alignment Correction, Physical Assist FUNCTIONAL STATUS Bed Mobility Rolling: Stand By Assistance Supine To Sit: Contact Guard Assistance Sit to Supine: Contact Guard Assistance Scooting: Contact Guard Assistance Transfers Sit To Stand: Contact Guard Assistance Stand To Sit: Contact Guard Assistance Bed to Chair Contact Guard Assistance Bed To Chair Transfer Type: Stepping Bed To Chair Transfer Equipment: Wheeled Walker Gait Contact Guard Assistance Gait Device: Wheeled Walker General Deviations/Observatio ns: Jozef decreased, UE weight bearing on assistive device excessive, Step length decreased, Shuffling Gait Gait Distance (feet): 25 Stairs GOALS Patient will demonstrate progress with functional mobility to allow safe discharge to home with available support and/or physical assistance. Rehab Potential: Good Good Rehab Potential Due To: Good support system/ coping skills, Good motivation Progress Toward Goals: Progressing as expected ACUTE CARE TREATMENT PLAN PT Frequency: 5 Times Per Week Treatment Interventions: Education, Self Care / Home Management, Energy Conservation Training, Joint Mobility, Functional Mobility Training, Strengthening, Balance Training, Neuromuscular Re-education Plan for Next Visit: Bed Mobility, Gait Training, Standing Tolerance, Stair Training SIGNATURE: Bert Gentile, PT PATIENT NAME: Regan Green DATE: March 31, 2025 TIME: 9:46 AM Normal [facility] URINALYSIS, REFLEX MICROSCOP ICon 03-31-2025 Bacteria LM.HPF (Urine sed) [#/Area] Negative Normal Negative [facility] Comment on above: Order Comment: Speci men Type: URINE SPECIMENOrdering Facility: [facility] Address: [address] [place] [address] Performed By: #### L [id number] ####[facility] [id number] [place] [address] [place] Bilirubin Ql (U) Negative Normal Negative [facility] Comment on above: Order Comment: Speci men Type: URINE SPECIMENOrdering Facility: [facility] Address: [address] [place] [address] Performed By: #### L [id number] ####[facility] [id number] [address] [place] [address] [place] Clarity (Unsp spec) Cloudy Abnormal Clear [facility] Comment on above: Order Comment: Speci men Type: URINE SPECIMENOrdering Facility: [facility] Address: [address] [place], [place] [address] Performed By: #### L [id number] ####[facility] [id number] [address] [place] [address] [place] Color (U) Yellow Normal Yellow [facility] Comment on above: Order Comment: Speci men Type: URINE SPECIMENOrdering Facility: [facility] Address: [address] [place] [address] Performed By: #### L [id number] ####[facility] [id number] [address] [place] [address] [place] Epithelial cells LM.HPF (Urine sed) [#/Area] None Seen Normal [facility] Comment on above: Order Comment: Speci men Type: URINE SPECIMENOrdering Facility: [facility] Address: [address] [place], [place] [address] Performed By: #### L [id number] ####[facility] [id number] [address] [place] [address] [place] Glucose Test strip (U) [Mass/Vol] Negative Normal Negative [facility] Comment on above: Order Comment: Speci men Type: URINE SPECIMENOrdering Facility: [facility] Address: [address] [place], [place] [address] Performed By: #### L [id number] ####[facility] [id number] [address] [address] [place] Hemoglobin Ql (U) 3+ Abnormal Negative [facility] Comment on above: Order Comment: Speci men Type: URINE SPECIMENOrdering Facility: [facility] Address: [address] [place], [place] [address] Performed By: #### L [id number] ####[facility] [id number] [address] [place] [address] [place] Hyaline casts (Urine sed) [#/Area] 4-10 /LPF Abnormal 0 /LPF [facility] Comment on above: Order Comment: Speci men Type: URINE SPECIMENOrdering Facility: [facility] Address: [address] [place] [address] Performed By: #### L [id number] ####[facility] [id number] [address] [place] [address] [place] Ketones Ql (U) Negative Normal Negative [facility] Comment on above: Order Comment: Speci men Type: URINE SPECIMENOrdering Facility: [facility] Address: [address] [place] [address] Performed By: #### L [id number] ####[facility] [id number] [place] [address] [place] Leukocyte esterase Test strip Ql (U) 1+ Abnormal Negative [facility] Comment on above: Order Comment: Speci men Type: URINE SPECIMENOrdering Facility: [facility] Address: [address] [place] [address] Performed By: #### L [id number] ####[facility] [id number] [place] [address] [place] Nitrite Ql (U) Negative Normal Negative [facility] Comment on above: Order Comment: Speci men Type: URINE SPECIMENOrdering Facility: [facility] Address: [address] [place] [address] Performed By: #### L [id number] ####[facility] [id number] [place] [address] [place] pH (U) 5.5 [pH] Normal <8.5 [facility] Comment on above: Order Comment: Speci men Type: URINE SPECIMENOrdering Facility: [facility] Address: [address] [place] [address] Performed By: #### L [id number] ####[facility] [id number] [place] [address] [place] Protein (U) [Mass/Vol] 2+ Abnormal Negative [facility] Comment on above: Order Comment: Speci men Type: URINE SPECIMENOrdering Facility: [facility] Address: [address] [place] [address] Performed By: #### L [id number] ####[facility] [id number] [place] [address] [place] RBC LM.HPF (Urine sed) [#/Area] /[HPF] Abnormal 0-2 /HPF [facility] Comment on above: Order Comment: Speci men Type: URINE SPECIMENOrdering Facility: [facility] Address: [address] [place] [address] Performed By: #### L [id number] ####[facility] [id number] [place] [address] [place] Specific gravity (U) [Rel density] 1.019 Normal 1.005-1.030 [facility] Comment on above: Order Comment: Speci men Type: URINE SPECIMENOrdering Facility: [facility] Address: [address] [place] [address] Performed By: #### L [id number] ####[facility] [id number] [place] [address] [place] Urobilinogen Ql (U) 0.2 EU/dL Normal 0.2-1.0 EU/dL [facility] Comment on above: Order Comment: Speci men Type: URINE SPECIMENOrdering Facility: [facility] Address: [address] [place] [address] Performed By: #### L [id number] ####[facility] [id number] [address] [id number] WBC LM.HPF (Urine sed) [#/Area] 0-5 /HPF Normal 0-5 /HPF [facility] Comment on above: Order Comment: Speci men Type: URINE SPECIMENOrdering Facility: [facility] Address: [address] [place] [address] Performed By: #### L [id number] ####[facility] [id number] [address] [place] ANES POSTPROC EVALon 025 ANES POSTPROC EVAL HNO ID: [id number] Author: ROGER SAUCEDO MD Service: ? Author Type: Physician Type: Anesthesia Postprocedure Evaluation Filed: 04/01/2025 10:14 Note Text: POST ANESTHESIA EVALUATION NOTE : 1950 Procedure Summary Date: 03/30/25 Room / Location: [address] [facility] Anesthesia Start: 1139 Anesthesia Stop: 1713 Procedures: TLIF DECOMPRESSION LAMINECTOMY INTERBODY FUSION LUMBAR POSTERIOR (PLIF) LEVEL 1 (Spine levels L4-5) INSERTION INTERBODY BIOMED DEVICE(S) W/ANT INSTR ANCHORING TO DISC SPACE W/INTERBODY FUSION,EA INTERSPACE (Spine levels L4-5) POSTERIOR NON-SEGMENTAL INSTRUMENTATION FOLLOWING LUMBAR FUSION 1 LEVEL PDFI (Spine levels L4-5) AUTOGRAFT FOR SPINE SURGERY ONLY, OBTAINED FROM SAME INCISION (Spine levels L4-5) Diagnosis: Spondylolisthesis of lumbar region Pre-op testing (Spondylolisthesis of lumbar region [M43.16]) (Pre-op testing [Z01.818]) Surgeons: Johnathan Kraus MD Responsible Provider: Roger Saucedo MD Anesthesia Type: general ASA Status: 3 Anesthesia Type: general Airway Type: ETT Last Vitals Vitals Value Taken Time BP 111/61 04/01/25 0941 Temp 36.7 ?C (98.1 ?F) 04/01/25 0941 Pulse 91 04/01/25 0941 Resp 19 04/01/25 0941 SpO2 93 % 04/01/25 0941 Post Anesthesia Patient Status Patient Evaluation: PACU. PACU/ICU Patient Condition: stable. Anticipated Disposition: inpatient floor planned admission. Neurological Status: aware and responsive. Pulmonary Status: breathing comfortably on supplemental oxygen Airway Control: returned to baseline unsupported. Cardiovascular Status: stable. Pain Management: clinically adequate Postoperative Hydration: acceptable. Intraoperative Events: no significant anesthesia events Post Operative Nausea/Vomiting Status: no significant post operative nausea or vomiting Recommendation: further care per PACU/ICU/floor team. Anesthesia Observations No Documentation SIGNATURE: Roger Saucedo MD PATIENT NAME: Regan Green DATE: April 01, 2025 TIME: 10:13 AM CSN: [id number] Normal [facility] ANES PRE-OPon 03-30-2025 ANES PRE-OP HNO ID: [id number] Author: SO SAINZ MD Service: ? Author Type: Anesthesiologist Type: Anesthesia Preprocedure Evaluation Filed: 03/30/2025 11:37 Note Text: ANESTHESIOLOGY DAY OF SURGERY NOTE : 1950 Procedure Information Date/Time: 03/30/25 1115 Procedures: TLIF DECOMPRESSION LAMINECTOMY INTERBODY FUSION LUMBAR POSTERIOR (PLIF) LEVEL 1 (Spine levels L4-5) INSERTION INTERBODY BIOMED DEVICE(S) W/ANT INSTR ANCHORING TO DISC SPACE W/INTERBODY FUSION,EA INTERSPACE (Spine levels L4-5) POSTERIOR NON-SEGMENTAL INSTRUMENTATION FOLLOWING LUMBAR FUSION 1 LEVEL PDFI (Spine levels L4-5) AUTOGRAFT FOR SPINE SURGERY ONLY, OBTAINED FROM SAME INCISION (Spine levels L4-5) Location: [place] [address] / [facility] Surgeons: Johnathan Kraus MD Estimated body mass index is 30.17 kg/m? as calculated from the following: Height as of 03/18/25: 182.9 cm (6'). Weight as of 03/18/25: 100.9 kg (222 lb 7.1 oz). Most recent hematocrit and potassium results: Hematocrit 44.9 03/18/2025 Potassium 3.5 03/12/2017 Relevant Problems CARDIO (+) Varicose veins of right lower extremity with pain I - PHYSICAL EVALUATION AIRWAY Patient intubated: No. Tracheostomy tube not present Mallampati: III. TM distance: >3 FB. Neck ROM: full ROM without neurological symptoms. Mouth opening: adequate. Short neck: no. Thick neck: no DENTAL Dental findings: teeth intact. Additional exam findings: no II - ANESTHESIA PLAN ASA Score: 3 Anesthetic Plan: general Airway type: ETT NPO Status: adequate Beta Radha Monitoring Plan Monitoring plan: standard ASA and invasive hemodynamic monitoring. Monitoring method: arterial Line Post Procedure Analgesic Plan Postoperative analgesic plan: multimodal analgesia. Informed Consent Anesthetic risks, benefits, alternatives, personnel and consent discussed: yes. Patient / Responsible Libertarian agrees to proceed: yes Patient / Surrogate agrees to blood products: Yes Potential Anesthesia issues that may suggest increased risk of complications or contraindication to planned procedure: none. Vitals Value Taken Time BP 156/85 03/30/25 0950 Pulse 100 03/30/25 0950 Resp 16 03/30/25 0950 Temp 36.8 ?C (98.2 ?F) 03/30/25 0950 SpO2 95 % 03/30/25 0950 Facility-Administered Medications as of 03/30/2025 Medication Dose Route Frequency ceFAZolin 2 g in dextrose (iso-osmotic) 50 mL (ANCEF,KEFZOL) 2 g INTRAVENOUS Pre-Op Once [COMPLETED] acetaminophen 1,000 mg tab(s) (TYLENOL) 1,000 mg ORAL Pre-Op Once Outpatient Medications as of 03/30/2025 Medication Sig calcium carbonate (OS-JARRETT 500) 500 mg calcium (1,250 mg) tablet 1 (one) time each day at the same time cyclobenzaprine (FLEXERIL) 10 mg tablet gabapentin (NEURONTIN) 300 mg capsule three times a day. OXYCODONE HCL/ACETAMINOPHEN (PERCOCET ORAL) Take 1 tablet by mouth once daily. diclofenac, EC, (VOLTAREN) 75 mg EC tablet two times a day. ELDERBERRY FRUIT ORAL Take by mouth. aspirin, enteric coated (ASPIRIN, ENTERIC COATED) 81 mg EC tablet Take 81 mg by mouth once daily. sildenafil (REVATIO) 20 [...] by mouth once daily. Until catheter removed I have interviewed and examined the patient. I have reviewed the medical record and/or the pre-anesthesia evaluation, pertinent labs, and test results. This contains updated information obtained within 48 hours of Surgery/Procedure. SIGNATURE: So Sainz MD PATIENT NAME: Regan Green DATE: March 30, 2025 TIME: 11:36 AM CSN: [id number] Normal [facility] BRIEF OP NOTon 03-30-2025 BRIEF OP NOT HNO ID: [id number] Author: JESSICA LEE MD Service: Neurosurgery Author Type: Fellow Type: Brief Op Note Filed: 03/30/2025 17:01 Note Text: BRIEF OP NOTE LOG ID: [id number] Surgery/Procedure Date: 03/30/2025 Incision/Procedure Start Time: 1:09 PM Incision Close/Procedure End Time: 4:50 PM Surgeon(s)/Procedural ist(s) and Physician Intensivist(s): Surgeons and Role: * Johnathan Kraus MD - Primary * Jessica Lee MD - Fellow Procedure(s): revision L4-5 decompression, L4-5 TLIF Anesthesia: General Findings: foraminal stenosis Estimated Blood Loss: 350 mls Specimens: * No specimens in log * Implants: Implant Name Type Inv. Item Serial No. Environmental [employer] Specialist Lot No. LRB No. Used Action I-FACTOR PEPTIDE ENHANCED BONE GRAFT PUTTY 5CC - [id number] Graft I-FACTOR PEPTIDE ENHANCED BONE GRAFT PUTTY 5CC [facility]Async Technologies [facility] [id number] Implanted SCREW JUSTIN 3 JAY 6.5MM 45MM BONE POLYAXIAL REDUCTION NONSTERILE SPINE Screw PAULINA 4 Implanted SOLITARIO JUSTIN 3 6MM TITANIUM 40MM SPINAL RADIOLUCENT - [id number] Sol[employer] SOLITARIO JUSTIN 3 6MM TITANIUM 40MM SPINAL RADIOLUCENT PAULINA SPINE 2 Implanted SCREW JUSTIN 3 TITANIUM SET RADHA SPINE - [id number] Implant SCREW JUSTIN 3 TITANIUM SET RADHA SPINE PAULINA SPINE 4 Implanted Complications: None Pre-Op/Pre-Procedure Diagnosis: degenerative spondylolisthesis Post-Op/Post-Procedur e Diagnosis: same Postop Plan: - No HOB restriction - Perioperative antibiotics: Ancef - DVT prophylaxis: SCDs and subq hepain POD 2 - Dressing: Silverlon adri - XR lumbar POD 2 - Croft out POD 1 - Hemovac x1 SIGNATURE: Jessica Lee MD PATIENT NAME: Regan Green DATE: March 30, 2025 TIME: 5:00 PM PAGER/CONTACT #: [phone] Normal [facility] NURSING PROGon 03-30-2025 NURSING PROG HNO ID: [id number] Author: ROXANNA TANG RN Service: Nursing Author Type: Registered Nurse Type: Nursing Progress Note Filed: 03/31/2025 01:31 Note Text: Transfer Note: PATIENT NAME: Regan Green Patient Location: [place] [address]/[id number] Room: [place] [address] Patient transferred into room/unit H60-49 from PACU via cart. 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 Assessment/VS as documented. Oriented to room, bed lowered, locked, alarms on, call light w/ pt. Admission orders reviewed w/ pt and questions addressed. Applied continuous POX d/t pt having PRODUCE LABORER pump, rate verify Normal [facility] OPERATIVE NOon 03-30-2025 OPERATIVE NO HNO ID: [id number] Author: JOHNATHAN KRAUS MD Service: Neurosurgery Author Type: Physician Type: Operative Report Filed: 03/31/2025 10:45 Note Text: OPERATIVE/PROCEDURE REPORT NEUROSURGERY LOG ID: [id number] Surgery/Procedure Date: 03/30/2025 Incision/Procedure Start Time: 1:09 PM Incision Close/Procedure End Time: 4:50 PM Surgeon(s)/Procedural ist(s) and Physician Intensivist(s): Surgeons and Role: * Johnathan Kraus MD - Primary * Jessica Lee MD - Fellow Procedure(s): 1. Revision decompression L4-5, bilateral L4/5 facetectomies 2. L4-5 combined transforaminal interbody fusion and posterior lateral fusion- placement of biomechanical cage mononsegmental instrumentation at L4/5 3. Use of local autograft 4. Use of I factor Preoperative Diagnosis: lumbar L4/5 Degenerative spondylolisthesis and neurogenic claudication Postoperative Diagnosis: Same Operative Indications: The patient is an 75 year old male with a history of degenerative spondylolisthesis. After the risks, benefits, and alternatives were discussed, the he opted for the above procedures. Risks, Benefits, and Alternatives The patient was counseled extensively regarding the options for treatment including operative and non-operative forms of treatment and after thorough counseling has elected to proceed with surgical treatment. The patient was counseled that with surgical treatment there is the possibility that their condition might not improve or may even worsen. The patient expressed understanding of all the issues described above and has elected to proceed with the aforementioned procedure. Anesthesia: General Findings: 1. Degenerative spondylolisthesis at L4-5 Procedure Details: After the appropriate surgical site was marked, the patient was brought to the operating room. A huddle was performed with all pertinent surgical personnel, anesthesia personnel, and nursing staff. The patient then was transferred from their bed to the operating table [place] and underwent general anesthesia. A Croft catheter was inserted in the usual sterile manner. The patient was then positioned in the prone position. The operative site was appropriately identified and pre-draped. All bony prominences were well padded. Once the prep was allowed 3 minutes to dry, the site was draped in sterile fashion. A surgical time-out was performed. Preoperative antibiotics were verified given within one hour of incision time, prior to incision. A midline lumbar incision was created using a #10 blade scalpel and carried down through the subcutaneous tissue. Monopolar cautery was utilized for hemostasis and then to divide along the midline down to the spinous processes remaining at L2, which was the most cephalad spinous process remaining after his prior decompression. The fascia was opened from L2 down to L5. Dissection was carried out laterally over the transverse processes of L4 and L5, taking care to leave a small amount of tissue overlying the midline dura. A cross table lateral x-ray confirmed the appropriate level. A straight curette was used to carefully dissect scar tissue from the prior laminectomy sites of the medial facets and pars until the pedicles were able to be palpated at L4 and L5. The bulk of the hypertrophied facet joints at L4-5 were removed, using a high-speed air drill to remove the IAP of L4. A Leksell rongeur was then used to remove the majority of at the SAP of L5. A Graves was then used to identify the L4 and L5 pedicles and these pedicles were skeletonized with a combination of burring and using a Kerrison rongeur. The mammillary process of L4 and L5 were identified bilaterally. The high speed air drill was used to make a small regional airline pilot hole. The gear shift along with pedicle probe verification was created the pedicle screw trajectory. Each screw trajectory was tapped, pedicle probe verified, and then a MRI-compatible multi-axial pedicle screw was inserted. The disc space was identified bilaterally and an annulotomy created with a #15 blade scalpel. We chose to approach the TLIF from the right side given the patient had right sided leg symptoms. The disc space was entered with bret and spreaders. The endplates were prepared and a trial was placed into the disc space. A trial interbody cage was used and sized at a 10 x 12 degree. Local autograft and I factor was used to pack the disc space in the anterior region. At that point, the interbody cage with local autograft was introduced into the disk space and positioned in the appropriate fashion. Again, local autograft was used to pack the posterior aspect of the disc space. At that point, small MRI-compatible rods were used to connect the screws on each side. We compressed across the screws L little to achieve some increased lordosis. Cross-table lateral x-ray demonstrated appropriate position of the hardware. The screw nuts were torqued to final ti (more content not included)... Normal [facility] XR LUMBAR SPECIFY 1Von 03-30 XR LUMBAR SPECIFY 1V * * *Final Report* * * DATE OF EXAM: Mar 30 2025 1:00PM ESX [id number] - XR LUMBAR SPECIFY 1V / PROCEDURE REASON: OR13 Pre incisional * * * * Physician Interpretation * * * * EXAMINATION: XR LUMBAR SPECIFY 1V CLINICAL HISTORY: Pain. Technique: XR LUMBAR SPECIFY 1V - 1 image Comparison: None RESULT: Counting Reference: Lumbosacral junction.. For the purposes of this report, the most caudal disc space in the lumbar region will be L5-S1. The iliac crest identify the level of L4-5 level. Grade 1 anterolisthesis L4-L5. Posterior approach surgical probe projects about the L4-L5 interspinous space oriented towards the L4-L5 neural foramen. IMPRESSION: Images performed for surgical localization. Please see operative note for further details. Business Taxes Specialist: LU Transcribe Date/Time: Mar 30 2025 1:34P Dictated by : HITESH VERDUGO DO This examination was interpreted and the report reviewed and electronically signed by: HITESH VERDUGO DO on Mar 30 2025 1:35PM EST [id number] Normal [facility] XR VERIFY LEVEL [id number] 03-30-2025 XR VERIFY LEVEL L-SPINE-NB * * *Final Report* * * DATE OF EXAM: Mar 30 2025 1:52PM ESX [id number] - XR VERIFY LEVEL L-SPINE-NB / PROCEDURE REASON: intra op * * * * Physician Interpretation * * * * INTRAOPERATIVE RADIOGRAPH(S) FOR SPINE LEVEL LOCALIZATION EXAMINATION: XR VERIFY LEVEL L-SPINE-NB HISTORY: intra op. TECHNIQUE: XR VERIFY LEVEL L-SPINE-NB Intraoperative radiologist-surgeon verbal discussion with live image presentation was performed to confirm level of spine localization. 2 images are submitted. Localization based on image performed at 13:30 hours with label localization COMPARISON: 03/30/2025 RESULT: Posterior approach surgical probe projects about L4 pars interarticularis at the level L4-L5 neural foramen. IMPRESSION: Intraoperative spine level localization. CRITICAL TEST/RESULTS: Communicated with JOHNATHAN KRAUS on 03/30/2025 1:54 PM. Images shared via Teams Video Conferencing. Business Taxes Specialist: LU Transcribe Date/Time: Mar 30 2025 1:53P Dictated by : HITESH VERDUGO DO This examination was interpreted and the report reviewed and electronically signed by: HITESH VERDUGO DO on Mar 30 2025 1:55PM EST [id number] N CRITICAL!! Invalid Interpretation Code [facility] CNNURSEon 03-23-2025 CNNURSE Nurse Visit (SPNSMN) REGAN GREEN ([id number]) 1950 M Date Time Provider Department 03/23/25 10:00 AM CARRIE MARTINES During your visit today, we recorded the following information about you: Carrie Martines RN 03/23/2025 10:06 AM Signed Neuro SPINE CARE COORDINATION PRE-OP VISIT Spoke with patient for pre op education. Given both written and verbal instructions re : Skin prep, wound care, pain management and post op restrictions. Provided to patient: [facility] Surgery Guide Yes Reviewed with patient to report to desk J19 for surgery ? Yes. Reviewed with the patient to call [phone] the day before to get surgery report time? Yes. Patient aware eat nothing after midnight prior to surgery, clear liquids only until 2 hours before report time. Yes. Patient aware surgery will be INPATIENT. Discussed care post discharge : Self care and Home Health Care ( PT-OT-nurse). Does patient have transportation to and from surgery ? Yes. Patient to bring Falls Education provided ? Yes Nasal swab obtained ? Yes. Patient instructed in mupirocin treatment : NA as patient was negative. Questions answered and patient voice(s) understanding via teach back. Physical Therapy : TBD, patient aware that no out patient PT in the 6-8 wks following surgery. Patient was instructed to take a few short walks per day and for every hour of sitting to stand and move for about 3-5 mins. Additional Comments : Post -op Support home with . Discussed the surgical guide in detail. I provided all contact numbers for patient to get a hold of the office. I also provided the after hours number. I discussed in detail that, Pain relief post operative- is managed with an opioid. As we are a surgical office we can only provide 7 days of this medication at a time. This medication is for initial post operative and incisional pain. The surgical team will refill every 7 days but when a refill is requested I will call to discuss your healing, pain management and how you are taking the opioid at that time. I will then relay this information to the provider for their recommendations on the next refill and how to proceed. Their goal is to have you off this medication by week 2-3 post operative. Carrie Martines RN Allergies As of Date: 03/23/2025 (No Known Allergies) Date Reviewed: 03/18/2025 Reviewed by: Vance Ferreira DO - Fully Assessed Primary Visit Diagnosis:Pre-op testing [Z01.818] Other Visit Diagnosis:Educational circumstance [Z55.9] Prescriptions as of 03/23/2025 - calcium carbonate (OS-JARRETT 500) 500 mg [...] catheter removed Problem List As Of Date 03/23/2025 Noted Resolved Malignant neoplasm of prostate (HCC) [C61] 02/07/2017 Partial small bowel obstruction (HCC) [K56.600] 03/12/2017 03/12/2017 Rash/skin eruption [R21] 03/12/2017 UTI (urinary tract infection) [N39.0] 05/08/2017 Radiculopathy, lumbar region [M54.16] 12/17/2023 Varicose veins of right lower extremity with pa*02/08/2020 S/P total knee arthroplasty [Z96.659] 03/18/2025 Encounter Status:Closed by CARRIE MARTINES on 03/23/25 Normal [facility] CBC W Auto Differential pane l (Bld)on 03-18-2025 Basophils (Bld) [#/Vol] 0.05 10*3/uL Normal <0.11 [facility] Comment on above: Order Comment: Speci men Type: BLOOD SPECIMENOrdering Facility: [facility] Address: [address] [place] [address] Performed By: #### 5 7021-8 ####[facility] [id number] [address], [place] [address] [place] Basophils/100 WBC (Bld) 0.7 % Normal [facility] Comment on above: Order Comment: Speci men Type: BLOOD SPECIMENOrdering Facility: [facility] Address: [address] [place] [address] Performed By: #### 5 7021-8 ####[facility] [id number] [address], [place] [address] [place] Differential cell count method Nom (Bld) Auto Normal [facility] Comment on above: Order Comment: Speci men Type: BLOOD SPECIMENOrdering Facility: [facility] Address: [address] [place] [address] Performed By: #### 5 7021-8 ####[facility] [id number] [address], [place] [address] [place] Eosinophils (Bld) [#/Vol] 0.16 10*3/uL Normal <0.46 [facility] Comment on above: Order Comment: Speci men Type: BLOOD SPECIMENOrdering Facility: [facility] Address: [address] [place] [address] Performed By: #### 5 7021-8 ####[facility] [id number] [place] [id number] [place] Eosinophils/100 WBC (Bld) 2.2 % Normal [facility] Comment on above: Order Comment: Speci men Type: BLOOD SPECIMENOrdering Facility: [facility] Address: [address] [place] [address] Performed By: #### 5 7021-8 ####[facility] [id number] [address] [place] [address] [place] Erythrocyte distribution width (RBC) [Ratio] 13.1 % Normal 11.5-15.0 [facility] Comment on above: Order Comment: Speci men Type: BLOOD SPECIMENOrdering Facility: [facility] Address: [address] [place] [address] Performed By: #### 5 7021-8 ####[facility] [id number] [place] [address] [place] Hematocrit (Bld) [Volume fraction] 44.9 % Normal 39.0-51.0 [facility] Comment on above: Order Comment: Speci men Type: BLOOD SPECIMENOrdering Facility: [facility] Address: [address] [place] [address] Performed By: #### 5 7021-8 ####[facility] [id number] [place] [address] [place] Hemoglobin (Bld) [Mass/Vol] 15.0 g/dL Normal 13.0-17.0 [facility] Comment on above: Order Comment: Speci men Type: BLOOD SPECIMENOrdering Facility: [facility] Address: [address] [place] [address] Performed By: #### 5 7021-8 ####[facility] [id number] [place] [address] [place] Immature granulocytes (Bld) [#/Vol] 0.07 10*3/uL Normal <0.10 [facility] Comment on above: Order Comment: Speci men Type: BLOOD SPECIMENOrdering Facility: [facility] Address: [address] [place] [address] Performed By: #### 5 7021-8 ####[facility] [id number] [place] [address] [place] Immature granulocytes/100 WBC (Bld) 0.9 % Normal [facility] Comment on above: Order Comment: Speci men Type: BLOOD SPECIMENOrdering Facility: [facility] Address: [address] [place] [address] Performed By: #### 5 7021-8 ####[facility] [id number] [place] [address] [place] Lymphocytes (Bld) [#/Vol] 1.75 10*3/uL Normal 1.00-4.00 [facility] Comment on above: Order Comment: Speci men Type: BLOOD SPECIMENOrdering Facility: [facility] Address: [address] [place] [address] Performed By: #### 5 7021-8 ####[facility] [id number] [place] [address] [place] Lymphocytes/100 WBC (Bld) 23.5 % Normal [facility] Comment on above: Order Comment: Speci men Type: BLOOD SPECIMENOrdering Facility: [facility] Address: [address] [place] [address] Performed By: #### 5 7021-8 ####[facility] [id number] [place] [address] [place] MCH (RBC) [Entitic mass] 30.9 pg Normal 26.0-34.0 [facility] Comment on above: Order Comment: Speci men Type: BLOOD SPECIMENOrdering Facility: [facility] Address: [address] [place] [address] Performed By: #### 5 7021-8 ####[facility] [id number] [place] [address] [place] MCHC (RBC) [Mass/Vol] 33.4 g/dL Normal 30.5-36.0 [facility] Comment on above: Order Comment: Speci men Type: BLOOD SPECIMENOrdering Facility: [facility] Address: [address] [place] [address] Performed By: #### 5 7021-8 ####[facility] [id number] [address], [facility] [place] MCV (RBC) [Entitic vol] 92.4 fL Normal 80.0-100.0 [facility] Comment on above: Order Comment: Speci men Type: BLOOD SPECIMENOrdering Facility: [facility] Address: [address] [place] [address] Performed By: #### 5 7021-8 ####[facility] [id number] [address], [place] [address] [place] Monocytes (Bld) [#/Vol] 1.01 10*3/uL High <0.87 [facility] Comment on above: Order Comment: Speci men Type: BLOOD SPECIMENOrdering Facility: [facility] Address: [address] [place] [address] Performed By: #### 5 7021-8 ####[facility] [id number] [place] [address] [place] Monocytes/100 WBC (Bld) 13.6 % Normal [facility] Comment on above: Order Comment: Speci men Type: BLOOD SPECIMENOrdering Facility: [facility] Address: [address] [place] [address] Performed By: #### 5 7021-8 ####[facility] [id number] [address], [place] [address] [place] Neutrophils (Bld) [#/Vol] 4.40 10*3/uL Normal 1.45-7.50 [facility] Comment on above: Order Comment: Speci men Type: BLOOD SPECIMENOrdering Facility: [facility] Address: [address] [place] [address] Performed By: #### 5 7021-8 ####[facility] [id number] [address], [facility] [place] Neutrophils/100 WBC (Bld) 59.1 % Normal [facility] Comment on above: Order Comment: Speci men Type: BLOOD SPECIMENOrdering Facility: [facility] Address: [address] [place] [address] Performed By: #### 5 7021-8 ####[facility] [id number] [address] [address] [place] Nucleated RBC (Bld) [#/Vol] 10*3/uL Normal <0.01 [facility] Comment on above: Order Comment: Speci men Type: BLOOD SPECIMENOrdering Facility: [facility] Address: [address] [place], [place] [address] Performed By: #### 5 7021-8 ####[facility] [id number] [place] [id number] [place] Nucleated RBC/100 WBC (Bld) [Ratio] 0.0 /100 WBC Normal [facility] Comment on above: Order Comment: Speci men Type: BLOOD SPECIMENOrdering Facility: [facility] Address: [address] [place] [address] Performed By: #### 5 7021-8 ####[facility] [id number] [place] [address] [place] Platelet mean volume (Bld) [Entitic vol] 9.2 fL Normal 9.0-12.7 [facility] Comment on above: Order Comment: Speci men Type: BLOOD SPECIMENOrdering Facility: [facility] Address: [address] [place], [place] [address] Performed By: #### 5 7021-8 ####[facility] [id number] [address] [address] [place] Platelets (Bld) [#/Vol] 268 10*3/uL Normal 150-400 [facility] Comment on above: Order Comment: Speci men Type: BLOOD SPECIMENOrdering Facility: [facility] Address: [address] [place], [place] [address] Performed By: #### 5 7021-8 ####[facility] [id number] [place] [address] [place] RBC (Bld) [#/Vol] 4.86 10*6/uL Normal 4.20-6.00 [facility] Comment on above: Order Comment: Speci men Type: BLOOD SPECIMENOrdering Facility: [facility] Address: [address] [place] [address] Performed By: #### 5 7021-8 ####[facility] [id number] [place] [address] [place] WBC (Bld) [#/Vol] 7.44 10*3/uL Normal 3.70-11.00 [facility] Comment on above: Order Comment: Speci men Type: BLOOD SPECIMENOrdering Facility: [facility] Address: [address] [place] [address] Performed By: #### 5 7021-8 ####[facility] [id number] [place] [address] [place] Ferritin SerPl-mCncon 2024 Ferritin [Mass/Vol] 416.0 ng/mL Normal 30.3-565.7 [facility] Comment on above: Order Comment: Speci men Type: BLOOD SPECIMENOrdering Facility: [facility] Address: [address] [place] [address] Performed By: #### 5 0190-8, 2276-4 ####[facility] [id number] [place] [id number] [place] HISTORY PHYSICALon HISTORY PHYSICAL HNO ID: [id number] Author: VANCE FERREIRA, DO Service: ? Author Type: Resident Type: H&P Filed: 03/18/2025 13:35 Note Text: [facility] HISTORY AND PHYSICAL EXAMINATION SERVICE DATE: 03/18/2025 SERVICE TIME: 1:22 PM PRIMARY CARE PHYSICIAN: Sumanth Light MD Assessment Patient has the following medical conditions which may affect juan-operative course: Radiculopathy, lumbar region CT SPECT scan of the lumbar spine reviewed there is significant uptake at the L4-5 disc level and vacuum disc, at the level above which is also degenerative there is no uptake in the disc and there is some uptake in the bilateral L3-4 facet joints Now scheduled for L4-L5 decompression laminectomy Pt has a hx of lumbar laminectomy L2-L5 in 2023 Patient currently on gabapentin, PRN toradol, cyclobenzaprine, PRN oxycodone and PRN diclofenac for pain control Malignant neoplasm of prostate (HCC) S/p prostatectomy, stable S/P total knee arthroplasty S/p total right knee arthroplasty in 2012, f/b revision same knee ANESTHESIA FINDINGS: Intubation History: No history of difficult intubation. No abnormal airway history Significant Anesthesia Considerations: none Airway History: No history of difficult airway No abnormal airway history Garcia Activity Status Index: METS: Walk indoors, such as around the house (1.75 METs) Walk a block or two on level ground (2.75 METs) Do moderate work around the house, such as vacuuming, sweeping floors, or carrying in groceries (3.50 METs) Climb a flight of stairs or walk up a hill (5.50 METs) DASI Score: 13.5 Patient denies any chest pain or undue shortness of breath with the above physical activity. Clinical Frailty Scale: 2. Well STOP-Bang Score: STOP-Bang Score: 0 ARISCAT Score: Age: 51-80 Preoperative SpO2: 91-95% Preoperative anemia: Yes Duration of surgery: >3 hrs Emergency procedure: No ARISCAT Score: I - PHYSICAL EVALUATION AIRWAY Patient intubated: No. Tracheostomy tube not present Mallampati: II. TM distance: >3 FB. Neck ROM: full ROM without neurological symptoms. Mouth opening: adequate. Short neck: no. Thick neck: no DENTAL Dental findings: teeth intact. II - ANESTHESIA PLAN Beta Radha Monitoring Plan Post Procedure Analgesic Plan Informed Consent Anesthetic risks, benefits, alternatives, personnel and consent discussed: yes. Patient / Responsible Libertarian agrees to proceed: yes Patient / Surrogate agrees to blood products: Yes Prepared for Surgery: optimally prepared for surgery, pending [see comment]. Labs CONSULTS: Patient does not require consults for optimization at this time Planned Anesthetic: The Following Tests/Procedures Have Been Initiated: No orders of the defined types were placed in this encounter. REASON FOR VISIT: Regan Green is a 74 year old male who is scheduled for Procedure(s): TLIF DECOMPRESSION LAMINECTOMY INTERBODY FUSION LUMBAR POSTERIOR (PLIF) LEVEL 1 (N/A) INSERTION INTERBODY BIOMED DEVICE(S) W/ANT INSTR ANCHORING TO DISC SPACE W/INTERBODY FUSION,EA INTERSPACE (N/A) POSTERIOR NON-SEGMENTAL INSTRUMENTATION FOLLOWING LUMBAR FUSION 1 LEVEL PDFI (N/A) AUTOGRAFT FOR SPINE SURGERY ONLY, OBTAINED FROM SAME INCISION (N/A) at the request of @REFPROV2@ for consultation. My final recommendation will be communicated back to the requesting physician by way of shared medical record or letter. Subjective The patient has the following: COVID-19 Immunization Status Current Care Gaps Covid-19 Vaccine ( season) Overdue since 07/05/2024 08/20/2022 Imm Admin: COVID-19 vaccine, age 12+ yr, bivalent ([employer]) 09/18/2021 Imm Admin: COVID-19 original vaccine, full dose, monovalent (MODERNA) 01/18/2021 Imm Admin: COVID-19 original vaccine, full dose, monovalent (MODERNA) Only the first 3 history entries have been loaded, but more history exists. CHIEF COMPLAINT: Pre-Op Evaluation HPI: Pt is a 74 y/o M w/ PMH of prostatic carcinoma, Hx of UTIs, lumbar radiculopathy now scheduled for decompression laminectomy L3-L5 with Dr. Kraus on 03/30/25 REVIEW OF SYSTEMS: General: No weight loss, malaise or fevers. Neurological: Negative for: headaches, impaired sensorium, seizures, TIA and strokes. Respiratory: Negative for: asthma, COPD, current cough, dyspnea, pneumonia within 6 weeks, tobacco use, URI < 2 weeks and obstructive sleep apnea. Cardiovascular: Negative for: angina, anticoagulation therapy, arrhythmia, CAD, chest pain, CHF, congenital heart defect, DVT/PE, hyperlipidemia, hypertension, murmur/valvular heart disease and PVD. GI: Negative for: abdominal pain, GERD, liver disease, nausea, vomiting and ETOH >2 drinks/day. : Negative for: dysuria, frequent urination, hematuria, nephrolithiasis and renal failure. Endocrine: Negative for: diabetes mellitus, hyper (more content not included)... Normal [facility] Iron and Iron binding capaci ty panelon 03-18-2025 Iron [Mass/Vol] 80 ug/dL Normal 41-186 [facility] Comment on above: Order Comment: Speci men Type: BLOOD SPECIMENOrdering Facility: [facility] Address: [address] [place] [address] Performed By: #### 5 0190-8, 2276-4 ####[facility] [id number] [place] [address] [place] Iron binding capacity [Mass/Vol] 326 ug/dL Normal 232-386 [facility] Comment on above: Order Comment: Speci men Type: BLOOD SPECIMENOrdering Facility: [facility] Address: [address] [place] [address] Performed By: #### 5 0190-8, 6-4 ####[facility] [id number] [place] [address] [place] Iron/TIBC [Molar ratio] 24.5 % Normal 15.0-57.0 [facility] Comment on above: Order Comment: Speci men Type: BLOOD SPECIMENOrdering Facility: [facility] Address: [address] [place] [address] Performed By: #### 5 0190-8, 6-4 ####[facility] [id number] [place] [address] [place] NICOTINE/COTININEon 03-18-20 25 Cotinine [Mass/Vol] <2 Normal <2 [facility] Comment on above: Order Comment: Speci men Type: BLOOD SPECIMENOrdering Facility: [facility] Address: [address] [place] [address] Result Comment: Acti ve tobacco product user: Nicotine concentration: 30 - 50 ng/mL Cotinine concentration: 200 - 800 ng/mL Passive exposure to tobacco: Nicotine concentration: < 2 ng/mL Cotinine concentration: < 8 ng/mL Unexposed non-tobacco user or abstinent user for > 2 weeks: Nicotine concentration: < 2 ng/mL Cotinine concentration: < 2 ng/mL This test was developed, and its performance characteristics determined by the [facility] Department of Pathology and Laboratory Medicine. It has not been cleared or approved by the FDA. The [facility] Department of Pathology and Laboratory Medicine is regulated under CLIA as qualified to perform high-complexity testing. This test is used for clinical purposes. It should not be regarded as investigational or for research. Performed By: #### N ICOT ####[facility] [id number] [place] [address] [place] Nicotine [Mass/Vol] <2 Normal <2 [facility] Comment on above: Order Comment: Speci men Type: BLOOD SPECIMENOrdering Facility: [facility] Address: [address] [place] [address] Performed By: #### N ICOT ####[facility] [id number] [place] [address] [place] STAPHYLOCOCCUS AUREUS AND MR SA SCREEN, PCR, NASALon 03-18-2025 S. aureus and MRSA panel YASMIN+probe (Nose) Not detected Normal Not Detected [facility] Comment on above: Order Comment: Speci men Type: SWABOrdering Facility: [facility] Address: [address] [place] [address] Performed By: #### S APCR ####[facility] [id number] [place] [address] [place] TYPE AND SCREEN,30 DAYon ABO AB Normal [facility] Comment on above: Order Comment: Speci men Type: BLOOD SPECIMENOrdering Facility: [facility] Address: [address] [place] [address] Performed By: #### T SCR30 ####[facility] BLOOD BANKCLIA [id number] [place] [address] [place] Rh Nom (Bld) Positive Normal [facility] Comment on above: Order Comment: Speci men Type: BLOOD SPECIMENOrdering Facility: [facility] Address: [address] [place] [address] Performed By: #### T SCR30 ####[facility] BLOOD BANKCLIA [id number] GISSEL BARRIENTOS [id number] [place] Brenna 03-10-2025 CNPN Telephone (SPNSMN) NORMAREGAN OLEARY ([id number]) 1950 M Date Time Provider Department 03/10/25 JOHNATHAN KRAUS SPNSMN During your visit today, we recorded the following information about you: Carrie Martines RN 03/10/2025 4:38 PM Signed Surgery Planning Name: Regan Green Age: [age] year old Wt: 102.1 kg (225 lb) BMI: 33.23 kg/(m2) Patient's Home Address: [address] [place] [address] Diagnosis: Spondylolisthesis of lumbar region Procedure: L4/5 TLIF Special needs: TLIF Cage Length of Surgery:4 Last In-person/VV appointment w/ Surgeon:01/09/25 PMH: PAST MEDICAL HISTORY Diagnosis Date Diverticulosis Osteoarthritis Shingles PSH: PAST SURGICAL HISTORY Procedure Laterality Date HERNIA REPAIR HX HIP SURGERY HX LYSIS OF ADHESIONS abdominal adhesions surgery TOTAL KNEE REPLACEMENT Nicotine: Tobacco Use: Types: Cigarettes HGBA1C: No results found for: HBA1C CBC: Hemoglobin (g/dL) Date Value 03/12/2017 10.1 Hematocrit (%) Date Value 03/12/2017 30.1 WBC (k/uL) Date Value 03/12/2017 9.20 Platelet Count (k/uL) Date Value 03/12/2017 258 Optimization Labs:Blood Management and Nicotine testing Images: XR:NA MRI:NA CT (ALIF):NA Blood Thinner: No Consults: Type(s):None Provider: NA Conservative Therapy: Epidural steroid injections;Muscle relaxers;Membrane stabilizers;Opioids Gabapentin 300mg TID, helps Cyclobenzaprine, 10mg TID Percocet 5mg BID, helps PT notes obtained if completed:NA Other Medication/Concerns: NA Transplant History:No Implants: No Orders Nicotine X HGBA1C N/A Blood MGMT X Pre-op Imaging N/A Surg Elective X PACC X MRSA Swab X Urology/CT Lumbar N/A Trek X Team MC X Education MC X Allergies As of Date: 03/10/2025 (No Known Allergies) Date Reviewed: 11/25/2024 Reviewed by: John Gabriel MA - Fully Assessed Prescriptions as of 03/10/2025 - calcium carbonate (OS-JARRETT 500) 500 mg [...] catheter removed Problem List As Of Date 03/10/2025 Noted Resolved Malignant neoplasm of prostate (HCC) [C61] 02/07/2017 Partial small bowel obstruction (HCC) [K56.600] 03/12/2017 03/12/2017 Rash/skin eruption [R21] 03/12/2017 UTI (urinary tract infection) [N39.0] 05/08/2017 Encounter Status:Closed by CARRIE MARTINES on 03/10/25 [facility] Brenna 01-28-2025 DESHAWN Telephone (NIQ) REGAN GREEN ([id number]) 1950 M Date Time Provider Department 01/28/25 [...] not found Best number to reach caller: [phone] and [phone] Best time to reach caller: anytime Is [...] for scheduling upon return to office. Carrie Martines, RN 02/01/2025 5:12 PM Signed Neuro SPINE CARE [...] the office number for call back. Carrie Martines RN Spine Poultry [employer] Dolores Fuller 02/02/2025 8:25 AM Signed Patient called; rec'd message from nurse re: surgery date/scheduling; patient is requesting call back; [phone] Carrie Martines RN 02/02/2025 9:38 AM Signed Neuro SPINE CARE COORDINATION QUICK NOTE Called patient to discuss surgical scheduling. Patient accepted surgical date of 03/30. We discussed pre op, post op, appointments, recovery and I answered all patient questions. Patient aware that post op appointments will be scheduled as VV and can be Derw Duarte or Dr. Kraus. Patient verbalized understanding of information provided by nurse. Patient instructed to call back should symptoms change or worsen. Patient has no other questions or concerns at this time. Patient advised to follow up with office with any additional issues. Carrie Martines RN Spine Poultry Farmer Meat Allergies As of Date: 01/28/2025 (No Known [...] Encounter Status:Closed by REYES STEINBERG on 01/28/25 [facility] BONE 3 PHASEon 12-09-2024 [place] BONE 3 PHASE * * *Final Report* * * * * * SEE BOTTOM OF REPORT FOR ADDENDED TEXT * * * DATE OF EXAM: Dec 09 2024 3:10PM [facility] 0009 - [place] BONE 3 PHASE / PROCEDURE REASON: Abnormal [...] 188 mGy*cm CT Dose Reduction Employed: Yes Business Taxes Specialist: LU Transcribe Date/Time: Dec 21 2024 9:33A Dictated by : CHARLENE WEBSTER MD This examination was interpreted and the report reviewed and electronically signed by: CHARLENE WEBSTER MD on Dec 09 2024 4:29PM EST This document has been addended by: CHARLENE WEBSTER MD on Dec 21 2024 9:35AM EST [id number] N [facility] NM BONE SPECTon 12-09-2024 NM BONE SPECT [...] 188 mGy*cm CT Dose Reduction Employed: Yes Business Taxes Specialist: LU Transcribe Date/Time: Dec 21 2024 9:33A Dictated by : CHARLENE WEBSTER MD This examination was interpreted and the report reviewed and electronically signed by: CHARLENE WEBSTER MD on Dec 09 2024 4:29PM EST This document has been addended by: CHARLENE WEBSTER MD on Dec 21 2024 9:35AM EST [id number] N Normal [facility] Bone 3 Phase Viewson * [...] shoulders, sternoclavicular, left knee, wrists and feet. [facility] Provider, [facility] - 12/09/2024 * * *Final Report* [...] and bilateral facet joints of L3-L4 level. Business Taxes Specialist: LU Transcribe Date/Time: Dec 09 2024 4:16P Dictated by : CHARLENE WEBSTER MD This examination was interpreted and the report reviewed and electronically signed by: CHARLENE WEBSTER MD on Dec 09 2024 4:29PM [facility] No Panel Informationon 12-09 IMPRESSION: Degenerative uptake at the endplates of L4-5 level and bilateral facet joints of L3-L4 level. Business Tax[employer] Specialist: LU Transcribe Date/Time: Dec 09 2024 4:16P Dictated by : CHARLENE WEBSTER MD This examination was interpreted and the report reviewed and electronically signed by: CHARLENE WEBSTER MD on Dec 09 2024 4:29PM [facility] RADIOLOG[facility] Radiology Study observation (narrative) [facility] No Panel InformationOrdered By: Ccf Provider on 12-09-2024 [facility] ic SPECT Boneon 12-09-2024 * * *Final Report* * * DATE OF EXAM: Dec 09 2024 3:10PM [facility] 0010 - [place] BONE SPECT / PROCEDURE [...] shoulders, sternoclavicular, left knee, wrists and feet. [facility] Provider, Jackson [facility] - 12/09/2024 * * *Final Report* * * DATE OF EXAM: Dec 09 2024 3:10PM [facility] 0010 - [place] BONE SPECT / PROCEDURE [...] and bilateral facet joints of L3-L4 level. Business Taxes Specialist: PSCB Transcribe Date/Time: Dec 09 2024 4:16P Dictated by : CHARLENE WEBSTER MD This examination was interpreted and the report reviewed and electronically signed by: CHARLENE WEBSTER MD on Dec 09 2024 4:29PM EST [facility] CNOVon 11-25-2024 CNOV Office Visit (SPNSMN ) REGAN GREEN ([id number]) 1950 M Date Time Provider Department 11/25/24 3:10 PM JOHNATHAN KRAUS SPNSMN During your visit today, we recorded the following information about you: Pulse Blood pressure Weight Height 80/minute 139/87 102.1 kg 1.753 m Johnathan Kraus MD 12/01/2024 7:07 AM Signed SPINE SURGERY NEW PATIENT PCP: Sumanth Light MD REFERRING PROVIDER: Lisa Palm [address] [facility] [address] 30 minutes Assessment/Plan No diagnosis found. Regan [...] exam Dec (more content not included)... Normal [facility] CBC AND AUTO DIFFon 08-25-20 ABSOLUTE BASOPHIL 0.1 X10E9/L Normal 0.0-0.2 [facility] Comment on above: Performed By: #### C SOPHIA, 83464-1, CBCA, THYR #### [facility] ([id number]) [address], [address] [place] [address] ABSOLUTE NEUTROPHIL 3.7 X10E9/L Normal 1.5-6.6 [facility] Comment on above: Performed By: #### Sujey CORTES, 83105-9, CBCA, THYR #### [facility] ([id number]) [address], [address] [place] [address] Basophils/100 WBC (Bld) 1.1 % Normal [facility] Comment on above: Performed By: #### Sujey CORTES, 75158-4, CBCA, THYR #### [facility] ([id number]) [address], [address] [place] [address] Eosinophils (Bld) [#/Vol] 0.2 10*3/uL Normal 0.0-0.4 [facility] Comment on above: Performed By: #### C SOPHIA, 95548-8, CBCA, THYR #### [facility] ([id number]) [address], [address] [place] [address] Eosinophils/100 WBC (Bld) 2.6 % Normal [facility] Comment on above: Performed By: #### Sujey CORTES, 77257-4, CBCA, THYR #### [facility] ([id number]) [address], [address] [place] [address] Erythrocyte distribution width (RBC) [Ratio] 13.5 % Normal 11.5-15.0 [facility] Comment on above: Performed By: #### C SOPHIA, 77001-3, CBCA, THYR #### [facility] ([id number]) [address], [facility] [address] [place] [address] Hematocrit (Bld) [Volume fraction] 44.7 % Normal 39-49 [facility] Comment on above: Performed By: #### C SOPHIA, 19294-7, CBCA, THYR #### [facility] ([id number]) [address], [facility] [address] [place] [address] Hemoglobin (Bld) [Mass/Vol] 15.0 g/dL Normal 13.0-17.0 [facility] Comment on above: Performed By: #### C SOPHIA, 67429-4, CBCA, THYR #### [facility] ([id number]) [address], [facility] [address] [place] [address] Lymphocytes (Bld) [#/Vol] 1.5 10*3/uL Normal 1.0-3.5 [facility] Comment on above: Performed By: #### C SOPHIA, 90091-8, CBCA, THYR #### [facility] ([id number]) [address] [address] [place] [address] Lymphocytes/100 WBC (Bld) 23.5 % Normal [facility] Comment on above: Performed By: #### C SOPHIA, 63051-6, CBCA, THYR #### [facility] ([id number]) [address] [address] [place] [address] MCH (RBC) [Entitic mass] 32.1 pg Normal 27-34 [facility] Comment on above: Performed By: #### C SOPHIA, 62926-6, CBCA, THYR #### [facility] ([id number]) [address], [address] [place] [address] MCHC (RBC) [Mass/Vol] 33.6 g/dL Normal 32-36 [facility] Comment on above: Performed By: #### C SOPHIA, 93101-6, CBCA, THYR #### [facility] ([id number]) [address], [address] [place] [address] MCV (RBC) [Entitic vol] 96 fL Normal 80-100 [facility] Comment on above: Performed By: #### C SOPHIA, 32555-3, CBCA, THYR #### [facility] ([id number]) [address], [address] [place] [address] Monocytes (Bld) [#/Vol] 0.8 10*3/uL Normal 0-0.9 [facility] Comment on above: Performed By: #### Sujey CORTES, 54016-5, CBCA, THYR #### [facility] ([id number]) [address], [address] [place] [address] Monocytes/100 WBC (Bld) 13.1 % Normal [facility] Comment on above: Performed By: #### C SOPHIA, 78237-7, CBCA, THYR #### [facility] ([id number]) [address], [address] [place] [address] Neutrophils/100 WBC (Bld) 59.7 % Normal [facility] Comment on above: Performed By: #### C SOPHIA, 33254-7, CBCA, THYR #### [facility] ([id number]) [address] [address] [place] [address] Platelet mean volume (Bld) [Entitic vol] 7.5 fL Normal 7-12 [facility] Comment on above: Performed By: #### C SOPHIA, 08286-9, CBCA, THYR #### [facility] ([id number]) [address], [address] [place] [address] Platelets (Bld) [#/Vol] 246 10*3/uL Normal 150-450 [facility] Comment on above: Performed By: #### C SOPHIA, 49003-7, CBCA, THYR #### [facility] ([id number]) [address], [address] [place] [address] RBC COUNT 4.68 X10E12/L Normal 4.10-5.70 [facility] Comment on above: Performed By: #### C SOPHIA, 73712-4, CBCA, THYR #### [facility] ([id number]) [address], [address] [place] [address] WBC (Bld) [#/Vol] 6.2 10*3/uL Normal 4.0-11.0 [facility] Comment on above: Performed By: #### Sujey CORTES, 62484-2, CBCA, THYR #### [facility] ([id number]) [address], [address] [place] [address] COMPREHENSIVE METABOLIC PANE Sandoval 08-25-2024 Albumin [Mass/Vol] 4.6 g/dL Normal 3.2-5.3 [facility] Comment on above: Performed By: #### C SOPHIA, 88676-0, CBCA, THYR #### [facility] ([id number]) [address], [address] [place] [address] ALP [Catalytic activity/Vol] 77 U/L Normal 39-130 [facility] Comment on above: Performed By: #### C SOPHIA, 64177-3, CBCA, THYR #### [facility] ([id number]) [address], [address] [place] [address] ALT [Catalytic activity/Vol] 36 U/L Normal 0-40 [facility] Comment on above: Performed By: #### Sujey CORTES, 73133-4, CBCA, THYR #### [facility] ([id number]) [address], [address] [place] [address] Anion gap [Moles/Vol] 11 mmol/L Normal 5-15 [facility] Comment on above: Performed By: #### C SOPHIA, 85014-0, CBCA, THYR #### [facility] ([id number]) [address], [address] [place] [address] AST [Catalytic activity/Vol] 31 U/L Normal 0-41 [facility] Comment on above: Performed By: #### C SOPHIA, 27270-4, CBCA, THYR #### [facility] ([id number]) [address], [address] [place] [address] Bilirubin [Mass/Vol] 0.5 mg/dL Normal 0.3-1.2 [facility] Comment on above: Performed By: #### C SOPHIA, 28074-8, CBCA, THYR #### [facility] ([id number]) [address], [address] [place] [address] Calcium [Mass/Vol] 9.3 mg/dL Normal 8.5-10.5 [facility] Comment on above: Performed By: #### C SOPHIA, 59766-8, CBCA, THYR #### [facility] ([id number]) [address], [address] [place] [address] Chloride [Moles/Vol] 104 mmol/L Normal 98-109 [facility] Comment on above: Performed By: #### C SOPHIA, 00713-0, CBCA, THYR #### [facility] ([id number]) [address], [address] [place] [address] CO2 [Moles/Vol] 27 mmol/L Normal 22-32 [facility] Comment on above: Performed By: #### C SOPHIA, 37805-6, CBCA, THYR #### [facility] ([id number]) [address], [address] [place] [address] Creatinine [Mass/Vol] 0.68 mg/dL Normal 0.60-1.30 [facility] Comment on above: Result Comment: METH OD TRACEABLE TO IDMS STANDARD Performed By: #### C SOPHIA, 27170-3, CBCA, THYR #### [facility] ([id number]) [address], [facility] [address] [place] [address] eGFR (CKD-EPI) NON-RACE DEPENDENT >90 Normal >59 [facility] Comment on above: Result Comment: Reported eGFR is based on the CKD-EPI 2020 equation that does not use a race coefficient. Performed By: #### C SOPHIA, 58463-6, CBCA, THYR #### [facility] ([id number]) [address] [address] [place] [address] Glucose [Mass/Vol] 84 mg/dL Normal 65-99 [facility] Comment on above: Performed By: #### C SOPHIA, 74914-2, CBCA, THYR #### [facility] ([id number]) [address] [address] [place] [address] Potassium [Moles/Vol] 5.0 mmol/L Normal 3.5-5.0 [facility] Comment on above: Performed By: #### C SOPHIA, 15834-8, CBCA, THYR #### [facility] ([id number]) [address] [address] [place] [address] Protein [Mass/Vol] 7.2 g/dL Normal 6.0-8.0 [facility] Comment on above: Performed By: #### C SOPHIA, 13274-4, CBCA, THYR #### [facility] ([id number]) [address] [address] [place] [address] Sodium [Moles/Vol] 142 mmol/L Normal 134-146 [facility] Comment on above: Performed By: #### Sujey CORTES, 13643-4, CBCA, THYR #### [facility] ([id number]) [address], [address] [place] [address] Urea nitrogen [Mass/Vol] 15 mg/dL Normal 5-27 [facility] Comment on above: Performed By: #### Sujey CORTES, 51823-0, CBCA, THYR #### [facility] ([id number]) [address], [address] [place] [address] Lipid 1996 panelon 4 Cholesterol [Mass/Vol] 191 mg/dL Normal 150-200 [facility] Comment on above: Performed By: #### Sujey CORTES, 99159-0, CBCA, THYR #### [facility] ([id number]) [address], [facility] [address] [place] [address] Cholesterol in HDL [Mass/Vol] 54 mg/dL Normal >39 [facility] Comment on above: Result Comment: HDL <40 mg/dL - High Risk HDL > or = 40mg/dL- Desirable HDL >60 mg/dL - Negative Risk Performed By: #### Sujey CORTES, 26041-9, CBCA, THYR #### [facility] ([id number]) [address], [address] [place] [address] Cholesterol in LDL [Mass/Vol] 127 mg/dL Normal <130 [facility] Comment on above: Result Comment: LDL <100 mg/dL - Desirable LDL >160 mg/dL - High Risk Performed By: #### Sujey CORTES, 75926-9, CBCA, THYR #### [facility] ([id number]) [address], [address] [place] [address] Cholesterol in VLDL [Mass/Vol] 10 mg/dL Normal 0-30 [facility] Comment on above: Performed By: #### C SOPHIA, 15634-8, CBCA, THYR #### [facility] ([id number]) [address] [address] [place] [address] CHOLESTEROL:HDL 3.5 Normal 1.0-5.0 [facility] Comment on above: Performed By: #### C SOPHIA, 07955-4, CBCA, THYR #### [facility] ([id number]) [address] [facility] [address] [place] [address] Triglyceride [Mass/Vol] 50 mg/dL Normal 27-150 [facility] Comment on above: Performed By: #### C SOPHIA, 53916-9, CBCA, THYR #### [facility] ([id number]) [address] [address] [place] [address] THYROID PROFILEon 08-25-2024 Free T4 [Mass/Vol] 0.93 ng/dL Normal 0.61-1.60 [facility] Comment on above: Performed By: #### C SOPHIA, 69797-8, CBCA, THYR #### [facility] ([id number]) [address], [facility] [address] [place] [address] TSH 6.45 uIU/mL High 0.49-4.67 [facility] Comment on above: Performed By: #### C SOPHAI, 94317-3, CBCA, THYR #### [facility] ([id number]) [address] [address] [place] [address] XR Lumbar spine 2 or 3 Views [...] Juarez Granados MD on 04/24/2024 2:36 PM [facility] - 04/24/2024 Lumbosacral spine: 04/23/2024 10:15 [...] Juarez Granados MD on 04/24/2024 2:36 PM [facility] XR Lumbar spine 2 or 3 Views Ordered By: Juarez Granados on 04-24-2024 [employer] Work Phone: XR SPINE LUMBAR 2 [...] Granados MD on 04/24/2024 2:36 PM Normal [facility] XR Lumbar spine 2 or 3 Views on 04-23-2024 Radiology Study observation (narrative) [facility] XR SPINE LUMB BENDING ONLY 2 -3 [...] Menjivar MD on 02/13/2024 2:22 PM Normal [facility] BASIC METABOLIC PANLon 12-27 Anion gap [Moles/Vol] 8 mmol/L Normal 5-15 [facility] Comment on above: Performed By: #### C BC, BMP, 08326-4, 90757-3 ####[facility] ([id number])[address], [place] [address] Calcium [Mass/Vol] 9.2 mg/dL Normal 8.5-10.5 [facility] Comment on above: Performed By: #### C TIP PÉREZ, , 56670-0 ####[facility] ([id number])[address] [address], [place] [address] Chloride [Moles/Vol] 103 mmol/L Normal 98-109 [facility] Comment on above: Performed By: #### C TIP PÉREZ, , 90520-6 ####[facility] ([id number])[address] [address], [place] [address] CO2 [Moles/Vol] 28 mmol/L Normal 22-32 [facility] Comment on above: Performed By: #### TIP CADET, , 07075-8 ####[facility] ([id number])[address] [address] Creatinine [Mass/Vol] 0.77 mg/dL Normal 0.60-1.30 [facility] Comment on above: Result Comment: METH OD TRACEABLE TO IDMS STANDARD Performed By: #### C TIP PÉREZ, , 07564-8 ####[facility] ([id number])[address] [address] eGFR (CKD-EPI) NON-RACE DEPENDENT >90 Normal >59 [facility] Comment on above: Result Comment: Reported eGFR is based on the CKD-EPI 2020 equation that does not use a race coefficient. Performed By: #### C TIP PÉREZ, , 68857-1 ####[facility] ([id number])[address] [address], [place] [address] Glucose [Mass/Vol] 110 mg/dL High 65-99 [facility] Comment on above: Performed By: #### C TIP PÉREZ, , 74404-3 ####[facility] ([id number])[address], [place] [address] Potassium [Moles/Vol] 4.3 mmol/L Normal 3.5-5.0 [facility] Comment on above: Performed By: #### C BC, [facility], , 74598-5 ####[facility] ([id number])[address], [place] [address] Sodium [Moles/Vol] 139 mmol/L Normal 134-146 [facility] Comment on above: Performed By: #### C , [facility], , 41613-5 ####[facility] ([id number])[address], [address] [place] [address] Urea nitrogen [Mass/Vol] 14 mg/dL Normal 5-27 [facility] Comment on above: Performed By: #### Sujey , [facility], , 16454-5 ####[facility] ([id number])[address], [address] [address] Basic Metabolic Panelon 12-06 Anion gap [Moles/Vol] 8 mmol/L 5 - 15 mmol/L [facility] Calcium [Mass/Vol] 9.2 mg/dL 8.5 - 10. 5 mg/dL [facility] Chloride [Moles/Vol] 103 mmol/L 98 - 10 9 mmol/L [facility] [place] CO2 [Moles/Vol] 28 mmol/L 22 - 32 mmol/L [facility] [place] Creatinine [Mass/Vol] 0.77 mg/dL 0.60 - 1.30 mg/dL [facility] [place] Comment on above: METHOD TRACEABLE TO IDMS STANDARD eGFR (CKD-EPI)non-race dependent - PINF [facility] [place] Comment on above: Reported eGFR is based on the CKD-EPI 2020 equation that does not use a race coefficient. Glucose [Mass/Vol] 110 mg/dL High 65 - 99 mg/dL [facility] Interpretation and review of laboratory results Abnormal [facility] Potassium [Moles/Vol] 4.3 mmol/L 3.5 - 5.0 mmol/L [facility] Sodium [Moles/Vol] 139 mmol/L 134 - 146 mmol/L [facility] Urea nitrogen [Mass/Vol] 14 mg/dL 5 - 27 mg/dL [facility] CBC without diffon Erythrocyte distribution width (RBC) [Ratio] 13.3 % 11.5 - 15.0 % [facility] Hematocrit (Bld) [Volume fraction] 36.3 % Low 39 - 49 % [facility] Hemoglobin (Bld) [Mass/Vol] 12.4 g/dL Low 13.0 - 17.0 g/dL [facility] Interpretation and review of laboratory results Abnormal [facility] MCH (RBC) [Entitic mass] 30.2 pg 27 - 34 pg [facility] MCHC (RBC) [Mass/Vol] 34.2 g/dL 32 - 3 6 g/dL [facility] MCV (RBC) [Entitic vol] 88 fL 80 - 100 fL [facility] Platelet mean volume (Bld) [Entitic vol] 7.2 fL 7 - 12 fL [facility] Platelets (Bld) [#/Vol] 243 10*3/uL [facility] RBC (Bld) [#/Vol] 4.12 10*6/uL [facility] WBC corrected for nucl RBC Auto (Bld) [#/Vol] 11.6 High [facility] COMPLETE BLOOD COUNTon 12-27 Erythrocyte distribution width (RBC) [Ratio] 13.3 % Normal 11.5-15.0 [facility] Comment on above: Performed By: #### C TIP PÉREZ, , 69262-5 ####[facility] ([id number])[address] [facility], [address] [place] [address] Hematocrit (Bld) [Volume fraction] 36.3 % Low 39-49 [facility] Comment on above: Performed By: #### C TIP PÉREZ, , ####[facility] ([id number])[address], [address] [place] [address] Hemoglobin (Bld) [Mass/Vol] 12.4 g/dL Low 13.0-17.0 [facility] Comment on above: Performed By: #### C BC, BMP, , ####[facility] ([id number])[address], [address] [place] [address] MCH (RBC) [Entitic mass] 30.2 pg Normal 27-34 [facility] Comment on above: Performed By: #### Sujey PÉREZ, BMP, , ####[facility] ([id number])[address], [address] [place] [address] MCHC (RBC) [Mass/Vol] 34.2 g/dL Normal 32-36 [facility] Comment on above: Performed By: #### Sujey BC, BMP, , ####[facility] ([id number])[address], [address] [place] [address] MCV (RBC) [Entitic vol] 88 fL Normal 80-100 [facility] Comment on above: Performed By: #### Sujey PÉREZ, BMP, , ####[facility] ([id number])[address], [address] [place] [address] Platelet mean volume (Bld) [Entitic vol] 7.2 fL Normal 7-12 [facility] Comment on above: Performed By: #### Sujey BC, BMP, , ####[facility] ([id number])[address], [address], [place] [address] Platelets (Bld) [#/Vol] 243 10*3/uL Normal 150-450 [facility] Comment on above: Performed By: #### Sujey BC, BMP, , 12882-1 ####[facility] ([id number])[address], [address] [place] [address] RBC COUNT 4.12 X10E12/L Normal 4.10-5.70 [facility] Comment on above: Performed By: #### C ELISA, BMP, , 50478-3 ####[facility] ([id number])[address], [address] [place] [address] WBC (Bld) [#/Vol] 11.6 10*3/uL High 4.0-11.0 [facility] Comment on above: Performed By: #### C ELISA, BMP, , 36859-9 ####[facility] ([id number])[address], [address] [place] [address] ECG 12 leadon 12-27-2023 TRACEMASTERVUE [facility] Glucose Glucometer (BldC) [M ass/Vol]on 12-27-2023 Glucose [Mass/Vol] 98 mg/dL 65 - 99 mg/dL [facility] Glucose [Mass/Vol] 98 mg/dL Normal 65-99 [facility] MAGNESIUMon 12-27-2023 Magnesium [Mass/Vol] 1.9 mg/dL Normal 1.8-2.6 [facility] Comment on above: Performed By: #### C ELISA, BMP, , 72321-3 ####[facility] ([id number])[address], [address] [place] [address] Magnesiumon 12-27-2023 Magnesium [Mass/Vol] 1.9 mg/dL 1.8 - 2 .6 mg/dL [facility] No Panel Informationon 12-27 [facility] TROPONIN Ion 12-27-2023 Troponin I.cardiac [Mass/Vol] ng/mL Normal 0.00-0.04 [facility] Comment on above: Performed By: #### C ELISA, BMP, 63306-4, 01052-3 ####[facility] ([id number])[address], [address], [place] [address] Troponin Ion 12-27-2023 Troponin I.cardiac [Mass/Vol] ng/mL 0.00 - 0.04 ng/mL [facility] Troponin I.cardiac [Mass/Vol ]on 12-27-2023 [facility] BASIC METABOLIC PANLon 12-26 Anion gap [Moles/Vol] 9 mmol/L Normal 5-15 [facility] Comment on above: Performed By: #### Sujey PÉREZ BMP #### [facility] ([id number]) [address], [address] [place] [address] Calcium [Mass/Vol] 9.4 mg/dL Normal 8.5-10.5 [facility] Comment on above: Performed By: #### Sujey PÉREZ BMP #### [facility] ([id number]) [address], [address] [place] [address] Chloride [Moles/Vol] 106 mmol/L Normal 98-109 [facility] Comment on above: Performed By: #### Sujey PÉREZ, BMP #### [facility] ([id number]) [address], [address] [place] [address] CO2 [Moles/Vol] 25 mmol/L Normal 22-32 [facility] Comment on above: Performed By: #### Sujey PÉREZ, BMP #### [facility] ([id number]) [address], [address] [place] [address] Creatinine [Mass/Vol] 0.63 mg/dL Normal 0.60-1.30 [facility] Comment on above: Result Comment: METH OD TRACEABLE TO IDMS STANDARD Performed By: #### Sujey PÉREZ, BMP #### [facility] ([id number]) [address], [address] [place] [address] eGFR (CKD-EPI) NON-RACE DEPENDENT >90 Normal >59 [facility] Comment on above: Result Comment: Reported eGFR is based on the CKD-EPI 2020 equation that does not use a race coefficient. Performed By: #### Sujey PÉREZ, BMP #### [facility] ([id number]) [address], [address] [place] [address] Glucose [Mass/Vol] 140 mg/dL High 65-99 [facility] Comment on above: Performed By: #### Sujey PÉREZ, BMP #### [facility] ([id number]) [address] [address] [place] [address] Potassium [Moles/Vol] 4.6 mmol/L Normal 3.5-5.0 [facility] Comment on above: Performed By: #### Sujey PÉREZ, BMP #### [facility] ([id number]) [address], [address] [place] [address] Sodium [Moles/Vol] 140 mmol/L Normal 134-146 [facility] Comment on above: Performed By: #### Sujey PÉREZ, BMP #### [facility] ([id number]) [address], [address] [place] [address] Urea nitrogen [Mass/Vol] 17 mg/dL Normal 5-27 [facility] Comment on above: Performed By: #### Sujey PÉREZ, BMP #### [facility] ([id number]) [address], [address] [place] [address] Basic Metabolic Panelon 02-2 Anion gap [Moles/Vol] 9 mmol/L 5 - 15 mmol/L [facility] Calcium [Mass/Vol] 9.4 mg/dL 8.5 - 10. 5 mg/dL [facility] Chloride [Moles/Vol] 106 mmol/L 98 - 10 9 mmol/L [facility] CO2 [Moles/Vol] 25 mmol/L 22 - 32 mmol/L [facility] Creatinine [Mass/Vol] 0.63 mg/dL 0.60 - 1.30 mg/dL [facility] Comment on above: METHOD TRACEABLE TO IDNY STANDARD eGFR (CKD-EPI)non-race dependent - PINF [facility] Comment on above: Reported eGFR is based on the CKD-EPI 2020 equation that does not use a race coefficient. Glucose [Mass/Vol] 140 mg/dL High 65 - 99 mg/dL [facility] Interpretation and review of laboratory results Abnormal [facility] Potassium [Moles/Vol] 4.6 mmol/L 3.5 - 5.0 mmol/L [facility] Sodium [Moles/Vol] 140 mmol/L 134 - 146 mmol/L [facility] Urea nitrogen [Mass/Vol] 17 mg/dL 5 - 27 mg/dL [facility] CBC without diffon Erythrocyte distribution width (RBC) [Ratio] 13.5 % 11.5 - 15.0 % [facility] Hematocrit (Bld) [Volume fraction] 37.5 % Low 39 - 49 % [facility] Hemoglobin (Bld) [Mass/Vol] 12.7 g/dL Low 13.0 - 17.0 g/dL [facility] Interpretation and review of laboratory results Abnormal [facility] MCH (RBC) [Entitic mass] 30.0 pg 27 - 34 pg [facility] MCHC (RBC) [Mass/Vol] 33.9 g/dL 32 - 3 6 g/dL [facility] MCV (RBC) [Entitic vol] 89 fL 80 - 100 fL [facility] Platelet mean volume (Bld) [Entitic vol] 7.2 fL 7 - 12 fL [facility] Platelets (Bld) [#/Vol] 264 10*3/uL [facility] RBC (Bld) [#/Vol] 4.23 10*6/uL [facility] WBC corrected for nucl RBC Auto (Bld) [#/Vol] 12.6 High [facility] COMPLETE BLOOD COUNTon 12-26 Erythrocyte distribution width (RBC) [Ratio] 13.5 % Normal 11.5-15.0 [facility] Comment on above: Performed By: #### C ELISA, BMP #### [facility] ([id number]) [address], [address] [place] [address] Hematocrit (Bld) [Volume fraction] 37.5 % Low 39-49 [facility] Comment on above: Performed By: #### C ELISA, BMP #### [facility] ([id number]) [address], [address] [place] [address] Hemoglobin (Bld) [Mass/Vol] 12.7 g/dL Low 13.0-17.0 [facility] Comment on above: Performed By: #### C ELISA, BMP #### [facility] ([id number]) [address], [address] [place] [address] MCH (RBC) [Entitic mass] 30.0 pg Normal 27-34 [facility] Comment on above: Performed By: #### Sujey PÉREZ, BMP #### [facility] ([id number]) [address], [address] [place] [address] MCHC (RBC) [Mass/Vol] 33.9 g/dL Normal 32-36 [facility] Comment on above: Performed By: #### C ELISA, BMP #### [facility] ([id number]) [address], [address] [place] [address] MCV (RBC) [Entitic vol] 89 fL Normal 80-100 [facility] Comment on above: Performed By: #### Sujey PÉREZ, BMP #### [facility] ([id number]) [address], [address] [place] [address] Platelet mean volume (Bld) [Entitic vol] 7.2 fL Normal 7-12 [facility] Comment on above: Performed By: #### Sujey PÉREZ, BMP #### [facility] ([id number]) [address], [address] [place] [address] Platelets (Bld) [#/Vol] 264 10*3/uL Normal 150-450 [facility] Comment on above: Performed By: #### C BC, BMP #### [facility] ([id number]) [address], [address] [place] [address] RBC COUNT 4.23 X10E12/L Normal 4.10-5.70 [facility] Comment on above: Performed By: #### C ELISA, BMP #### [facility] ([id number]) [address], [address] [place] [address] WBC (Bld) [#/Vol] 12.6 10*3/uL High 4.0-11.0 [facility] Comment on above: Performed By: #### C BC, BMP #### [facility] ([id number]) [address], [address] [place] [address] ABO Rh Repeaton 12-25-2023 ABO AB [facility] [...] Miguel Avelar on 12/25/2023 4:51 PM Normal [facility] RF Guidance for injection of [...] José Miguel Avelar on 12/25/2023 4:51 PM SECTRAJosé Miguel Camarena MD - 12/25/2023 [place] FLUORO GUIDANCE SPINAL PUNCTURE OPERATIVE INDICATION: Back pain FINDINGS: Intraoperative fluoroscopy for L2-L5 laminectomy. No radiologist present during the examination. Reference air kerma: 1.38 mGy Fluoroscopic time: 5 seconds Number of fluoroscopic images: 3 IMPRESSION: Intraoperative fluoroscopy provided as above. See operative report for additional details. Finalized by José Miguel Avelar on 12/25/2023 4:51 PM [facility] Radiology Study observation (narrative) [facility] RF Guidance for injection of Spine facet jointOrdered By: José Miguel Avelar on 12-25-2023 [facility] Work Phone: Bacteria identified Cx Nom ( U)on 12-21-2023 Service comment (Unsp spec) [Interp] <10,000 ORGANISMS/ML NORMAL URO GENITAL CORINA [facility] ABO Rh Repeaton 12-20-2023 ABO AB [facility] Rh Nom (Bld) Positive [facility] APTTon 12-20-2023 aPTT Coag (PPP) [Time] 31 s [facility] BASIC METABOLIC PANLon 12-20 Anion gap [Moles/Vol] 13 mmol/L Normal 5-15 [facility] Comment on above: Performed By: #### C ALEN PINR, 31482-6, BMP #### [facility] ([id number]) [address], [address] [place] [address] Calcium [Mass/Vol] 10.1 mg/dL Normal 8.5-10.5 [facility] Comment on above: Performed By: #### C BCA, PINR, 13775-4, BMP #### [facility] ([id number]) [address], [address] [place] [address] Chloride [Moles/Vol] 103 mmol/L Normal 98-109 [facility] Comment on above: Performed By: #### C BCA, PINR, 14313-7, BMP #### [facility] ([id number]) [address], [address] [place] [address] CO2 [Moles/Vol] 25 mmol/L Normal 22-32 [facility] Comment on above: Performed By: #### C BCA, PINR, 89634-8, BMP #### [facility] ([id number]) [address], [address] [place] [address] Creatinine [Mass/Vol] 0.76 mg/dL Normal 0.60-1.30 [facility] Comment on above: Result Comment: METH OD TRACEABLE TO IDMS STANDARD Performed By: #### C ALEN, PINR, 59327-0, BMP #### [facility] ([id number]) [address], [address] [place] [address] eGFR (CKD-EPI) NON-RACE DEPENDENT >90 Normal >59 [facility] Comment on above: Result Comment: Reported eGFR is based on the CKD-EPI 2020 equation that does not use a race coefficient. Performed By: #### C BCA, PINR, 35721-5, BMP #### [facility] ([id number]) [address], [address] [place] [address] Glucose [Mass/Vol] 85 mg/dL Normal 65-99 [facility] Comment on above: Performed By: #### C BCA, PINR, 99551-9, BMP #### [facility] ([id number]) [address] [address] [place] [address] Potassium [Moles/Vol] 5.0 mmol/L Normal 3.5-5.0 [facility] Comment on above: Result Comment: SPEC IMEN HEMOLYZED, RESULTS INCREASED MODERATELY HEMOLYZED Performed By: #### C BCA, PINR, 06467-9, BMP #### [facility] ([id number]) [address], [address] [place] [address] Sodium [Moles/Vol] 141 mmol/L Normal 134-146 [facility] Comment on above: Performed By: #### C BCA, PINR, 96177-4, BMP #### [facility] ([id number]) [address], [address] [place] [address] Urea nitrogen [Mass/Vol] 20 mg/dL Normal 5-27 [facility] Comment on above: Performed By: #### C BCA, PINR, 27287-9, BMP #### [facility] ([id number]) [address], [address] [place] [address] Basic Metabolic Panelon 12-05 Anion gap [Moles/Vol] 13 mmol/L 5 - 15 mmol/L [facility] Calcium [Mass/Vol] 10.1 mg/dL 8.5 - 10. 5 mg/dL [facility] Chloride [Moles/Vol] 103 mmol/L 98 - 10 9 mmol/L [facility] CO2 [Moles/Vol] 25 mmol/L 22 - 32 mmol/L [facility] Creatinine [Mass/Vol] 0.76 mg/dL 0.60 - 1.30 mg/dL [facility] Comment on above: METHOD TRACEABLE TO IDNY STANDARD eGFR (CKD-EPI)non-race dependent - PINF [facility] Comment on above: Reported eGFR is based on the CKD-EPI 2020 equation that does not use a race coefficient. Glucose [Mass/Vol] 85 mg/dL 65 - 99 mg/dL [facility] Potassium [Moles/Vol] 5.0 mmol/L 3.5 - 5.0 mmol/L [facility] Comment on above: SPECIMEN HEMOLYZED, RESULTS INCREASED MODERATELY HEMOLYZED Sodium [Moles/Vol] 141 mmol/L 134 - 146 mmol/L [facility] Urea nitrogen [Mass/Vol] 20 mg/dL 5 - 27 mg/dL [facility] CBC AND AUTO DIFFon 12-20-19 ABSOLUTE BASOPHIL 0.1 X10E9/L Normal 0.0-0.2 [facility] Comment on above: Performed By: #### C ALEN PINR, 92295-8, BMP #### [facility] ([id number]) [address], [address] [place] [address] ABSOLUTE NEUTROPHIL 4.4 X10E9/L Normal 1.5-6.6 [facility] Comment on above: Performed By: #### C ALEN, PINR, 94210-7, BMP #### [facility] ([id number]) [address], [address] [place] [address] Basophils/100 WBC (Bld) 0.9 % Normal [facility] Comment on above: Performed By: #### C ALEN PINR, 69230-9, BMP #### [facility] ([id number]) [address], [address] [place] [address] Eosinophils (Bld) [#/Vol] 0.2 10*3/uL Normal 0.0-0.4 [facility] Comment on above: Performed By: #### C ALEN, PINR, 83587-8, BMP #### [facility] ([id number]) [address], [address] [place] [address] Eosinophils/100 WBC (Bld) 2.6 % Normal [facility] Comment on above: Performed By: #### C ALEN PINR, 22643-2, BMP #### [facility] ([id number]) [address], [address] [place] [address] Erythrocyte distribution width (RBC) [Ratio] 13.6 % Normal 11.5-15.0 [facility] Comment on above: Performed By: #### C ALEN, PINR, 70774-3, BMP #### [facility] ([id number]) [address], [address] [place] [address] Hematocrit (Bld) [Volume fraction] 45.1 % Normal 39-49 [facility] Comment on above: Performed By: #### C BCA, PINR, 45237-8, BMP #### [facility] ([id number]) [address], [address] [place] [address] Hemoglobin (Bld) [Mass/Vol] 15.5 g/dL Normal 13.0-17.0 [facility] Comment on above: Performed By: #### C ALEN PINR, 01646-1, BMP #### [facility] ([id number]) [address], [facility] [address] [place] [address] Lymphocytes (Bld) [#/Vol] 1.5 10*3/uL Normal 1.0-3.5 [facility] Comment on above: Performed By: #### C ALEN PINR, 81379-2, BMP #### [facility] ([id number]) [address], [facility] [address] [place] [address] Lymphocytes/100 WBC (Bld) 21.7 % Normal [facility] Comment on above: Performed By: #### C ALEN PINR, 23827-5, BMP #### [facility] ([id number]) [address], [facility] [address] [place] [address] MCH (RBC) [Entitic mass] 30.2 pg Normal 27-34 [facility] Comment on above: Performed By: #### Sujey LOWRY PINR, 72890-8, BMP #### [facility] ([id number]) [address], [address] [place] [address] MCHC (RBC) [Mass/Vol] 34.4 g/dL Normal 32-36 [facility] Comment on above: Performed By: #### C ALEN PINR, 24782-2, BMP #### [facility] ([id number]) [address], [address] [place] [address] MCV (RBC) [Entitic vol] 88 fL Normal 80-100 [facility] Comment on above: Performed By: #### C BCA, PINR, 30532-8, BMP #### [facility] ([id number]) [address], [address] [place] [address] Monocytes (Bld) [#/Vol] 1.0 10*3/uL High 0-0.9 [facility] Comment on above: Performed By: #### C BCA, PINR, 80111-5, BMP #### [facility] ([id number]) [address], [address] [place] [address] Monocytes/100 WBC (Bld) 13.6 % Normal [facility] Comment on above: Performed By: #### C ALEN, PINR, 90561-0, BMP #### [facility] ([id number]) [address], [address] [place] [address] Neutrophils/100 WBC (Bld) 61.2 % Normal [facility] Comment on above: Performed By: #### C ALEN, PINR, 15134-0, BMP #### [facility] ([id number]) [address], [address] [place] [address] Platelet mean volume (Bld) [Entitic vol] 7.8 fL Normal 7-12 [facility] Comment on above: Performed By: #### C ALEN, PINR, 65731-6, BMP #### [facility] ([id number]) [address], [address] [place] [address] Platelets (Bld) [#/Vol] 269 10*3/uL Normal 150-450 [facility] Comment on above: Performed By: #### C ALEN, PINR, 00754-3, BMP #### [facility] ([id number]) [address], [address] [place] [address] RBC COUNT 5.12 X10E12/L Normal 4.10-5.70 [facility] Comment on above: Performed By: #### C BCA, PINR, 92381-0, BMP #### [facility] ([id number]) [address], [address] [place] [address] WBC (Bld) [#/Vol] 7.1 10*3/uL Normal 4.0-11.0 [facility] Comment on above: Performed By: #### C BUCKY LOWRY, 09635-8, BMP #### [facility] ([id number]) [address], [address] [place] [address] CBC auto differentialon 12-05 Basophils (Bld) [#/Vol] 0.1 10*3/uL [facility] Basophils/100 WBC (Bld) 0.9 % [facility] Eosinophils (Bld) [#/Vol] 0.2 10*3/uL [facility] Eosinophils/100 WBC (Bld) 2.6 % [facility] Erythrocyte distribution width (RBC) [Ratio] 13.6 % 11.5 - 15.0 % [facility] Hematocrit (Bld) [Volume fraction] 45.1 % 39 - 49 % [facility] Hemoglobin (Bld) [Mass/Vol] 15.5 g/dL 13.0 - 17.0 g/dL [facility] Interpretation and review of laboratory results Abnormal [facility] Lymphocytes (Bld) [#/Vol] 1.5 10*3/uL [facility] Lymphocytes/100 WBC (Bld) 21.7 % [facility] MCH (RBC) [Entitic mass] 30.2 pg 27 - 34 pg [facility] MCHC (RBC) [Mass/Vol] 34.4 g/dL 32 - 3 6 g/dL [facility] MCV (RBC) [Entitic vol] 88 fL 80 - 100 fL [facility] Monocytes (Bld) [#/Vol] 1.0 10*3/uL High [facility] Monocytes/100 WBC (Bld) 13.6 % [facility] [facility] Neutrophils (Bld) [#/Vol] 4.4 10*3/uL [facility] Neutrophils/100 WBC (Bld) 61.2 % [facility] Platelet mean volume (Bld) [Entitic vol] 7.8 fL 7 - 12 [facility]L [facility] Platelets (Bld) [#/Vol] 269 10*3/uL [facility] RBC (Bld) [#/Vol] 5.12 10*6/uL [facility] WBC corrected for nucl RBC Auto (Bld) [#/Vol] 7.1 [facility] No Panel [facility]on 12-20 [facility] PROTIME AND INRon 12-20-2023 INR Coag (PPP) [Relative time] 1.0 {INR} Normal 0.8-1.1 [facility] Comment on above: Performed By: #### BUCKY Rm BCA, 91479-0, BMP #### [facility] ([id number]) [address], [address] [place] [address] PT Coag (PPP) [Time] 11.3 s Normal 9.8-13.2 [facility] Comment on above: Performed By: #### BUCKY Rm BCA, 48719-8, BMP #### [facility] ([id number]) [address], [address] [place] [address] Protime & INRon 12-20-2023 INR Coag (PPP) [Relative time] 1.0 {INR} [facility] PT Coag (PPP) [Time] 11.3 s [facility] Type and screenon 12-20-2023 ABO AB [facility] Rh Nom (Bld) Positive [facility] URINALYSISon 12-20-2023 Bilirubin Ql (U) Negative Normal NEG [facility] BLOOD/HGB Negative Normal NEG [facility] Color (U) YELLOW Normal YELLOW [facility] Glucose Ql (U) Negative Normal NEG [facility] Ketones Ql (U) Negative Normal NEG [facility] Leukocyte esterase Test strip Ql (U) Negative Normal NEG [facility] MUCOUS PRESENT Abnormal NONE [facility] Nitrite Ql (U) Negative Normal NEG [facility] pH (U) 6.0 [pH] Normal 5.0-8.5 [facility] Protein Ql (U) Trace Abnormal NEG [facility] R.B.CELLS 2 /hpf Normal 0-5 [facility] Specific gravity (U) [Rel density] 1.026 Normal 1.003-1.035 [facility] TURBIDITY CLEAR Normal CLEAR [facility] Urobilinogen (U) [Mass/Vol] mg/dL Normal <1.1 [facility] W.B.CELLS 2 /hpf Normal 0-5 [facility] URINE CULTUREon 12-20-2023 Bacteria identified Cx Nom (U) CULTURE RESULTS <10,000 ORGANISMS/ML NORMAL URO GENITAL CORINA Normal [facility] Comment on above: Performed By: #### 6 30-4 #### [facility] ([id number]) [address] [place] [address], [address] [place] [address] Urinalysison 12-20-2023 Bilirubin Ql (U) Negative Negative^Ne gative [facility] Color (U) YELLOW YELLOW^YELL OW [facility] Glucose (U) [Mass/Vol] Negative Negative^Ne gative mg/dL [facility] Hemoglobin Auto test strip Ql (U) Negative Negative^Ne gative [facility] Interpretation and review of laboratory results Abnormal [facility] Ketones (U) [Mass/Vol] Negative Negative^Ne gative mg/dL [facility] Leukocyte esterase Auto test strip Ql (U) Negative Negative^Ne gative [facility] Mucus Ql (Urine sed) PRESENT Abnormal NONE^NONE [facility] Nitrite Auto test strip Ql (U) Negative Negative^Ne gative [facility] pH (U) 6.0 [pH] 5.0 - 8.5 [facility] Protein (U) [Mass/Vol] Trace Abnormal Negative^Ne gative mg/dL [facility] RBC Auto (Urine sed) [#/Area] 2 [facility] Specific gravity Refractometry automated (U) [Rel density] 1.026 1.003 - 1.035 [facility] Turbidity Ql (U) CLEAR CLEAR^CLEAR [facility] Urobilinogen Qn (U) NINF [facility] WBC Auto (Urine sed) [#/Area] 2 [facility] aPTT Coag (PPP) [Time]on aPTT Coag (Bld) [Time] 31 s Normal 26-37 [facility] Comment on above: Performed By: #### C BCA, PINR, 35510-9, BMP #### [facility] ([id number]) [address], [address] [place] [address] XR SPINE LUMB BENDING ONLY 2 -3 [...] Morrell MD on 11/16/2023 8:57 PM Normal [facility] XR shoulder RT min 2V*on XR shoulder RT min 2V* [facility] Main [place] [address] [place] [address] XRay Report Signed Patient: Regan Green MR#: [id number] 65 : 1950 Acct:[id number] Age/Sex: 73 / M ADM Date: 06/24/23 Loc: [facility] Room: Type: [facility] Attending Dr: Charity Barkley MD Copies [...] Artie Goldsmith M.D.06/24/2023 12:37 PM Dictation Location: [place] [address] Transcribed By: [facility] 06/24/23 1237 Dictated By: Artie Goldsmith DO 06/24/23 1236 Signed By: 06/24/23 1237 Normal [facility] Covid-19 PCR (CVDTB)on SARS-CoV-2 (COVID-19) RNA YASMIN+probe Ql (Unsp spec) Not detected Normal NOT DETECTED [facility] Comment on above: Result Comment: This test is not yet approved or cleared by the [place] FDA. When there are no FDA-approved or cleared tests available, and other criteria are met, FDA can make tests available under an emergency access mechanism called an Emergency Use Authorization (EUA). The EUA for this test is supported by the [employer] of Health and Human Service's (HHS's) declaration [...] SARS-CoV-2. Performed By: #### C VDTB #### [facility] [address] [place] [address] Dr. Keely Fitzgerald MRI Shoulder w/o Lefton 04-2 MRI Shoulder [...] 02/23/2022 1229 Normal [facility] [employer] PELVIS 1 OR 2 [facility] 04-16-20 18 [facility]ELVIS 1 [facility] [address] [place] [address] Patient Name: REGAN GREEN : 1950ex: MAge: Race: WhiteMRN: [id number]. Location: 84Patient Status: OVisit #: [id number] Date: 04/16/2018 9:20:00 AMCompleted Date: 04/16/2018 09:18 AMRequesting Provider: BILLY KILLIAN Attending Provider: BILLY KILLIAN Report Copy To: Signs & Symptoms: M46.1 Sacroiliitis, not elsewhere classified [id number]: AthenaComments: , , , Ordering Provider - BILLY KILLIAN MD , Exam: PELVIS 1 OR 2 VWSAccession #: [id number] PEL VIS 1 OR 2 VWS 04/16/2018 [...] fracture Electronically signed by:Lea Le. Transcribed by: [email or web address], User Resident: Electronically Signed by: LEA LE @ 04/16/2018 10:35 AM Normal [facility] Comment on above: Order Comment: , , = ========= , Ordering Provider - BILYL KILLIAN MD , Vital Signs Date Time Vital Sign Value Performing Clinician Facility 04-14-2025 14:11-0400 Body height 182.9 cm Jodi WILLIAMSON Work Phone: [facility] 04-14-2025 14:11-0400 Body mass index (BMI) [Ratio] 29.02 kg/m2 Jodi WILLIAMSON Work Phone: [facility] 04-14-2025 14:11-0400 Body weight 97.07 kg Jodi WILLIAMSON Work Phone: [facility] 04-14-2025 13:38-0400 Body mass index (BMI) [Ratio] 29.02 kg/m2 Ovi Mcdaniel MD Work Phone: [facility] 04-14-2025 13:38-0400 Body weight 97.07 kg Ovi Mcdaniel MD Work Phone: [facility] 04-14-2025 13:38-0400 Diastolic blood pressure 78 mm[Hg] Ovi Mcdaniel MD Work Phone: [facility] 04-14-2025 13:38-0400 Heart rate 83 /min Ovi Mcdaniel MD Work Phone: [facility] 04-14-2025 13:38-0400 Respiratory rate 18 /min Ovi Mcdaniel MD Work Phone: [facility] 04-14-2025 13:38-0400 SaO2% (BldA) [Mass fraction] 97 % Ovi Mcdaniel MD Work Phone: [facility] 04-14-2025 13:38-0400 Systolic blood pressure 138 mm[Hg] Ovi Mcdaniel MD Work Phone: [facility] 04-06-2025 14:49-0400 Body mass index (BMI) [Ratio] 28.21 kg/m2 Ovi Mcdaniel MD Work Phone: [facility] 04-06-2025 14:49-0400 Body weight 94.35 kg Ovi Mcdaniel MD Work Phone: [facility] 04-06-2025 14:49-0400 Diastolic blood pressure 86 mm[Hg] Ovi Mcdaniel MD Work Phone: [facility] 04-06-2025 14:49-0400 Heart rate 94 /min Ovi Mcdaniel MD Work Phone: [facility] 04-06-2025 14:49-0400 Respiratory rate 18 /min Ovi Mcdaniel MD Work Phone: [facility] 04-06-2025 14:49-0400 SaO2% (BldA) [Mass fraction] 98 % Ovi Mcdaniel MD Work Phone: [facility] 04-06-2025 14:49-0400 Systolic blood pressure 130 mm[Hg] Ovi Mcdaniel MD Work Phone: [facility] 03-18-2025 13:01-0400 Body height 182.9 cm Pacc 8 Work Phone: [facility] 03-18-2025 13:01-0400 Body mass index (BMI) [Ratio] 30.17 kg/m2 Pacc 8 Work Phone: [facility] 03-18-2025 13:01-0400 Body temperature 97.5 [degF] Pacc 8 Work Phone: [facility] 03-18-2025 13:01-0400 Body weight 100.9 kg Pacc 8 Work Phone: [facility] 03-18-2025 13:01-0400 Diastolic blood pressure 81 mm[Hg] Pacc 8 Work Phone: [facility] 03-18-2025 13:01-0400 Heart rate 89 /min Pacc 8 Work Phone: [facility] 03-18-2025 13:01-0400 SaO2% (BldA) [Mass fraction] 95 % Pacc 8 Work Phone: [facility] 03-18-2025 13:01-0400 Systolic blood pressure 146 mm[Hg] Pacc 8 Work Phone: [facility] 11-25-2024 13:57-0500 Body height 175.3 cm Johnathan Kraus MD Work Phone: [facility] 11-25-2024 13:57-0500 Body mass index (BMI) [Ratio] 33.23 kg/m2 Johnathan Kraus MD Work Phone: [facility] 11-25-2024 13:57-0500 Body weight 102.06 kg Johnathan Kraus MD Work Phone: [facility] 11-25-2024 13:57-0500 Diastolic blood pressure 87 mm[Hg] Johnathan Kraus MD Work Phone: [facility] 11-25-2024 13:57-0500 Heart rate 80 /min Johnathan Kraus MD Work Phone: [facility] 11-25-2024 13:57-0500 SaO2% (BldA) [Mass fraction] 97 % Johnathan Kraus MD Work Phone: [facility] 11-25-2024 13:57-0500 Systolic blood pressure 139 mm[Hg] Johnathan Kraus MD Work Phone: [facility] 08-11-2024 09:12-0400 Body height 182.9 cm Sumanth Hill MD Work Phone: [facility] 08-11-2024 09:12-0400 Body mass index (BMI) [Ratio] 30.04 kg/m2 Sumanth Hill MD Work Phone: [facility] 08-11-2024 09:12-0400 Body temperature 96.8 [degF] Sumanth Hill MD Work Phone: [facility] 08-11-2024 09:12-0400 Body weight 100.47 kg Sumanth Hill MD Work Phone: [facility] 08-11-2024 09:12-0400 Diastolic blood pressure 82 mm[Hg] Sumanth Hill MD Work Phone: [facility] 08-11-2024 09:12-0400 Systolic blood pressure 134 mm[Hg] Sumanth Hill MD Work Phone: [facility] 06-04-2024 10:55-0400 Body height 182.9 cm Carl Ssoa BURN TABLE OPERATOR-HARDWARE DEVELOPER Work Phone: [facility] 06-04-2024 10:55-0400 Body mass index (BMI) [Ratio] 30.52 kg/m2 Carl 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 Work Phone: [facility] 06-04-2024 10:55-0400 Body weight 102.06 kg Carl 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 Work Phone: [facility] 06-04-2024 10:55-0400 Diastolic blood pressure 90 mm[Hg] Carl 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 Work Phone: [facility] 06-04-2024 10:55-0400 Heart rate 87 /min Carl 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 Work Phone: [facility] 06-04-2024 10:55-0400 Respiratory rate 16 /min Carl 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 Work Phone: [facility] 06-04-2024 10:55-0400 Systolic blood pressure 138 mm[Hg] Carl 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 Work Phone: [facility] 04-28-2024 12:59-0400 Body height 182.9 cm Juan F Heller MD Work Phone: [facility] 04-28-2024 12:59-0400 Body mass index (BMI) [Ratio] 30.52 kg/m2 Juan F Heller MD Work Phone: [facility] 04-28-2024 12:59-0400 Body weight 102.06 kg Juan F Heller MD Work Phone: [facility] 04-28-2024 12:59-0400 Diastolic blood pressure 85 mm[Hg] Juan F Heller MD Work Phone: [facility] 04-28-2024 12:59-0400 Heart rate 77 /min Juan F Heller MD Work Phone: [facility] 04-28-2024 12:59-0400 Systolic blood pressure 130 mm[Hg] Juan F Heller MD Work Phone: [facility] 04-23-2024 09:44-0400 Body height 185.4 cm Mayco Nolen MD Work Phone: [facility] 04-23-2024 09:44-0400 Body mass index (BMI) [Ratio] 29.69 kg/m2 Mayco Nolen MD Work Phone: [facility] 04-23-2024 09:44-0400 Body weight 102.06 kg Mayco Nolen MD Work Phone: [facility] 04-23-2024 09:44-0400 Diastolic blood pressure 75 mm[Hg] Mayco Nolen MD Work Phone: [facility] 04-23-2024 09:44-0400 Heart rate 79 /min Mayco Nolen MD Work Phone: [facility] 04-23-2024 09:44-0400 Systolic blood pressure 134 mm[Hg] Mayco Nolen MD Work Phone: [facility] 02-12-2024 09:03-0400 Body height 185.4 cm Calr 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 Work Phone: [facility] 02-12-2024 09:03-0400 Body mass index (BMI) [Ratio] 28.37 kg/m2 Carl 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 Work Phone: [facility] 02-12-2024 09:03-0400 Body weight 97.52 kg Carl 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 Work Phone: [facility] 02-12-2024 09:03-0400 Diastolic blood pressure 87 mm[Hg] Carl 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 Work Phone: [facility] 02-12-2024 09:03-0400 Heart rate 85 /min Carl 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 Work Phone: [facility] 02-12-2024 09:03-0400 Systolic blood pressure 135 mm[Hg] Carl 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 Work Phone: [facility] 12-27-2023 11:46-0500 Body temperature 98.29 [degF] Mayco Nolen MD Work Phone: [facility] 12-27-2023 11:46-0500 Diastolic blood pressure 77 mm[Hg] Mayco Nolen MD Work Phone: [facility] 12-27-2023 11:46-0500 Heart rate 84 /min Mayco Nolen MD Work Phone: [facility] 12-27-2023 11:46-0500 Respiratory rate 14 /min Mayco Nolen MD Work Phone: [facility] 12-27-2023 11:46-0500 Systolic blood pressure 127 mm[Hg] Mayco Nolen MD Work Phone: [facility] 12-27-2023 04:23-0500 SaO2% (BldA) [Mass fraction] 94 % Mayco Nolen MD Work Phone: [facility] 12-25-2023 22:54-0500 Body mass index (BMI) [Ratio] 28.76 kg/m2 Mayco Nolen MD Work Phone: [facility] 12-25-2023 22:54-0500 Body weight 96.2 kg Mayco Nolen MD Work Phone: [facility] 12-25-2023 13:27-0500 Body height 182.9 cm Mayco Nolen MD Work Phone: [facility] 12-20-2023 14:20-0500 Body height 182.9 cm [facility] 12-20-2023 14:20-0500 Body mass index (BMI) [Ratio] 29.39 kg/m2 [facility] 12-20-2023 14:20-0500 Body temperature 97.7 [degF] [facility] [address] [facility] 12-20-2023 14:20-0500 Body weight 98.3 kg [facility] 12-20-2023 14:20-0500 Diastolic blood pressure 84 mm[Hg] [facility] 12-20-2023 14:20-0500 Heart rate 77 /min [facility] 12-20-2023 14:20-0500 Respiratory rate 18 /min [facility] 12-20-2023 14:20-0500 SaO2% (BldA) [Mass fraction] 97 % [facility] [address] [place] [address] 12-20-2023 14:20-0500 Systolic blood pressure 132 mm[Hg] [facility] [address] [place] [address] 11-14-2023 09:59-0500 Body height 180.3 cm Carl 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 Work Phone: [facility] 11-14-2023 09:59-0500 Body mass index (BMI) [Ratio] 29.57 kg/m2 Carl 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 Work Phone: [facility] 11-14-2023 09:59-0500 Body weight 96.16 kg Carl 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 Work Phone: [facility] 11-14-2023 09:59-0500 Diastolic blood pressure 86 mm[Hg] Carl 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 Work Phone: [facility] 11-14-2023 09:59-0500 Heart rate 81 /min Carl 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 Work Phone: [facility] 11-14-2023 09:59-0500 Systolic blood pressure 135 mm[Hg] Carl 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 Work Phone: [facility] 05-21-2023 10:00-0400 Body height 182.88 cm Charity Barkley Other [employer] Other 05-21-2023 10:00-0400 Body mass index (BMI) [Ratio] 30.51 kg/m2 Charity Barkley Other [employer] Other 05-21-2023 10:00-0400 Body weight 102.06 kg Charity Barkley Other [employer] Other Encounters Encounter Date Encounter Type Care Provider Facility Start: 06-29-2025 End: 06-29-2025 ambulatory Drew Leija PA-C Work Phone: [facility] Comment on above: SI joint arthritis ( Primary Dx); S/P lumbar fusion; Acute post-operative pain Start: 06-29-2025 End: 06-29-2025 Telemedicine consultation with patient Drew Leija PA-C Work Phone: [facility] Start: 06-02-2025 End: 06-02-2025 [facility] Tay MD [facility] Start: 06-02-2025 End: 06-02-2025 Bamerico jana Tay MD [facility] Start: 06-02-2025 End: 06-02-2025 Office outpatient visit 15 minutes Jessica Tay MD [facility] Comment on above: Melanocytic nevus of trunk (Primary Dx); Actinic keratosis; Lentigines; Seborrheic keratosis; Neoplasm of unspecified behavior of bone, soft tissue, and skin Start: 06-02-2025 End: 06-02-2025 ambulatory JESSICA TAY Not Available Start: 05-12-2025 End: 05-14-2025 Telephone encounter Johnathan Kraus MD Work Phone: Neurology Comment on above: Patient Question Start: 05-12-2025 End: 05-12-2025 ambulatory JODI CANALES [facility] Start: 05-12-2025 End: 05-12-2025 Telemedicine consultation with patient Drew E Jayme DUARTE Work Phone: [facility] Start: 05-12-2025 End: 05-12-2025 ambulatory Drew Block Jayme DUARTE Work Phone: [facility] Comment on above: S/P lumbar fusion (P rimary Dx); Numbness and tingling; Acute post-operative pain Start: 05-05-2025 End: 05-05-2025 Telephone encounter Johnathan Kraus MD Work Phone: Neurology Comment on above: Patient Update; Joy ent Question Start: 04-30-2025 [facility] JODI CANALES [facility] Start: 04-19-2025 End: 04-20-2025 Telephone encounter Johnathan Kraus MD Work Phone: [facility] Comment on above: Patient Question Start: 04-15-2025 End: 04-15-2025 Telephone encounter Sweta Woods CMA [facility] Start: 04-14-2025 End: 04-14-2025 Office outpatient visit 25 minutes Ovi Mcdaniel MD Work Phone: [facility] Comment on above: Encounter for staple removal (Primary Dx); Lumbar radiculopathy, chronic; Status post lumbar spine operative procedure for decompression of spinal cord; Acute bacterial simple cystitis Gross hematuria (Yesica charleen Dx); Adenocarcinoma of prostate ([facility]) Start: 04-14-2025 End: 04-14-2025 ambulatory JODI CANALES [facility] Start: 04-12-2025 End: 04-12-2025 Telephone encounter Jodi Glynn LPN [facility] Start: 04-08-2025 End: 04-19-2025 Telephone encounter Johnathan Kraus MD Work Phone: Neurology Comment on above: Patient Question Start: 04-06-2025 End: 04-06-2025 Transitional care manage srvc 7 day discharge Ovi Mcdaniel MD Work Phone: [facility] Comment on above: Gross hematuria (Yesica charleen Dx); Adenocarcinoma of prostate (CMS-HCC); Radiculopathy, lumbar region Start: 04-06-2025 End: 04-06-2025 ambulatory [facility] Start: 04-06-2025 End: 04-06-2025 Telephone encounter Johnathan Kraus MD Work Phone: [facility] Comment on above: Transition Of Care Start: 04-06-2025 End: 04-06-2025 Nursing evaluation of patient and report Carrie Martines RN [facility] Comment on above: Post-operative state (Primary Dx) Start: 04-06-2025 End: 04-06-2025 ambulatory SUMANTH LIGHT Facility:[facility] Start: 04-05-2025 ambulatory [facility] Start: 04-05-2025 End: 04-05-2025 Telephone encounter Lupe Beard [facility] Comment on above: Patient Update Hematuria, unspecifi ed type (Primary Dx) Start: 03-30-2025 End: 04-02-2025 Evaluation and management of inpatient SUMANTH LIGHT Facility:[facility] Start: 03-23-2025 End: 03-23-2025 ambulatory SUMANTH LIGHT Facility:[facility] Start: 03-21-2025 End: 03-21-2025 ambulatory Walter Morrow RNpaper coater [facility] [facility] Start: 03-18-2025 End: 03-18-2025 Admission to establishment [facility] Work Phone: Pre Anesthesia Start: 03-18-2025 End: 03-18-2025 Anesthesia consultation [facility] 8 Work Phone: Pre Anesthesia Comment on above: Radiculopathy, lumba r region (Primary Dx); Malignant neoplasm of prostate (HCC); Status post total knee replacement, unspecified laterality; Preop examination Start: 03-18-2025 End: 03-18-2025 Preprocedural examination done [facility] 8 Work Phone: [facility] Work Phone: Start: 03-18-2025 Encounter for other preprocedural examination SUMANTH LIGHT [facility] Start: 03-18-2025 End: 03-18-2025 ambulatory SUMANTH LIGHT Facility:[facility] Start: 03-17-2025 End: 03-17-2025 Telemedicine consultation with patient Marek Espinoza PSYD Work Phone: Neurology Pain Start: 03-17-2025 End: 03-17-2025 ambulatory Marek Espinoza PSYD Work Phone: Neurology Pain Comment on above: Spondylolisthesis of lumbar region (Primary Dx) Start: 03-12-2025 ambulatory SUMANTH LOZANO Facility:[facility] Start: 03-10-2025 End: 03-11-2025 ambulatory Johnathan Kraus MD Work Phone: [facility] Start: 03-10-2025 End: 03-11-2025 Patient encounter status Johnathan Kraus MD Work Phone: [facility] Start: 03-10-2025 End: 03-10-2025 Telephone encounter Johnathan Kraus MD Work Phone: [facility] Start: 01-28-2025 End: 01-28-2025 Telephone encounter Johnathan Kraus MD Work Phone: Neurology Comment on above: Schedule Surgery Start: 01-26-2025 End: 01-26-2025 ambulatory [facility] Work Phone: Start: 01-26-2025 End: 01-26-2025 Patient encounter procedure [facility] Work Phone: Start: 01-25-2025 End: 01-25-2025 ambulatory Rosales Corona MD Facility: [facility] Start: 01-09-2025 End: 01-09-2025 ambulatory Johnathan Kraus MD Work Phone: [facility] Comment on above: Spondylolisthesis of lumbar region (Primary Dx); Abnormal findings on diagnostic imaging of other parts of musculoskeletal system Start: 01-09-2025 End: 01-09-2025 Telemedicine consultation with patient Johnathan Kraus MD Work Phone: [facility] Start: 12-09-2024 ambulatory JOHNATHAN KRAUS Fac ility:[facility] Start: 12-09-2024 End: 12-09-2024 Subsequent hospital visit by physician [facility] Work Phone: [facility] Comment on above: Spondylolisthesis of lumbar region [M43.16] Start: 11-25-2024 End: 11-25-2024 ambulatory NARENDRANATH LAKSHMIPATHY Facility:[facility] Start: 11-25-2024 End: 11-25-2024 Patient encounter procedure Johnathan Kraus MD Work Phone: [facility] Comment on above: Spondylolisthesis of lumbar region (Primary Dx); Abnormal findings on diagnostic imaging of other parts of musculoskeletal system Start: 09-07-2024 End: 09-07-2024 ambulatory Rosales Corona MD Facility:[facility] Start: 08-26-2024 End: 08-26-2024 Orders Only Sumanth Hill MD Work Phone: [facility] Start: 08-25-2024 End: 08-25-2024 ambulatory [facility] Start: 08-11-2024 End: 08-11-2024 ambulatory [facility] Start: 08-11-2024 Encounter for genera l adult medical examination without abnormal findings [facility] Start: 08-11-2024 End: 08-11-2024 Patient encounter procedure Sumanth Hill MD Work Phone: [facility] Comment on above: Routine general medi jarrett examination at a health care facility (Primary Dx); Lumbar radiculopathy, chronic; Spondylolisthesis of lumbar region; Pure hypercholesterolemia; Adenocarcinoma of prostate ([facility]-H[facility]) Start: 08-11-2024 End: 08-11-2024 Patient encounter status Sumanth iHll MD Work Phone: [facility] Work Phone: Start: 07-31-2024 End: 07-31-2024 ambulatory [facility] Work Phone: Start: 07-31-2024 End: 07-31-2024 Patient encounter procedure [facility] Work Phone: Start: 07-27-2024 End: 07-27-2024 Telephone encounter Luanne Dowell RN Work Phone: [facility] Comment on above: Request for retro C9 Start: 07-01-2024 End: 07-03-2024 Chart abstracting Unk Pcp (Hist) Neurology Start: 06-18-2024 End: 06-18-2024 ambulatory [facility] CLARK Not Available Start: 06-04-2024 End: 06-04-2024 ambulatory SUMANTH [facility] Start: 06-04-2024 End: 06-04-2024 Office outpatient visit 40 minutes Carl Sosa APRN-HARDWARE DEVELOPER Work Phone: [facility] Comment on above: Spondylolisthesis of lumbar region (Primary Dx) Start: 05-22-2024 End: 05-22-2024 ambulatory [facility] Work Phone: Start: 05-22-2024 End: 05-22-2024 Patient encounter procedure [facility] Work Phone: Start: 04-28-2024 End: 04-28-2024 Office outpatient visit 15 minutes Juan F Heller MD Work Phone: [facility] Comment on above: Adenocarcinoma of pr ostate (CMS-HCC) (Primary Dx) Start: 04-27-2024 End: 04-27-2024 Telephone encounter Kayleigh Garcia LPN [facility] Start: 04-23-2024 End: 04-23-2024 ambulatory [facility] Start: 04-23-2024 End: 04-23-2024 Office outpatient visit 25 minutes Mayco Nolen MD Work Phone: [facility] Comment on above: Spondylolisthesis of lumbar region (Primary Dx); Status post lumbar laminectomy; Radiculopathy, lumbar region Start: 02-12-2024 End: 02-12-2024 ambulatory [facility] Start: 02-12-2024 End: 02-12-2024 Postop follow up visit related to original px Carl 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 Work Phone: [facility] Comment on above: Status post lumbar l aminectomy (Primary Dx); Low back pain, non-specific; Leg pain, right; Weakness of right lower extremity; Sensory deficit, right Start: 01-29-2024 End: 01-29-2024 ambulatory [facility] Work Phone: Start: 01-29-2024 End: 01-29-2024 Patient encounter procedure [facility] Work Phone: Start: 12-28-2023 End: 12-28-2023 amb[facility] Start: 12-25-2023 End: 12-28-2023 ambulatory [facility] Start: 12-25-2023 End: 12-27-2023 ambulatory [facility] Start: 12-25-2023 End: 12-27-2023 Subsequent hospital visit by physician Mayco Nolen MD Work Phone: [facility] Comment on above: Radiculopathy, lumba r region; Neurogenic claudication Start: 12-24-2023 Telephone encounter Marek [facility] Comment on above: surgery Start: 12-20-2023 Telephone encounter Hoda [facility] Start: 12-20-2023 End: 12-20-2023 Patient encounter procedure Shalom León 9 [facility] Comment on above: Radiculopathy, lumba r region; Neurogenic claudication; Monitoring for anticoagulant use; Abnormal urine findings Start: 12-20-2023 End: 12-20-2023 ambulatory [facility]CO [facility]OL[facility] Start: 12-18-2023 Documentation procedure Jasmin Noriega BURN TABLE OPERATOR-HARDWARE DEVELOPER Work Phone: [facility] Start: 12-10-2023 Telephone encounter Myrtle Hatch LPN [facility] Comment on above: surgery Start: 11-27-2023 Telephone encounter Marek [facility] Start: 11-14-2023 End: 11-14-2023 ambulatory [facility] Start: 11-14-2023 End: 11-14-2023 Office outpatient new 45 minutes Carl 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 Work Phone: [facility] Comment on above: Neurogenic claudicat ion (Primary Dx); Lumbar radiculopathy, chronic Start: 11-05-2023 Telephone encounter Dolores Rm MA [facility] Comment on above: Er Follow-up Lumbar radiculopathy , chronic (Primary Dx) Start: 10-30-2023 End: 10-30-2023 ambulatory Charity Barkley Other [employer] Other Start: 10-30-2023 Office outpatient vi sit 15 minutes Charity Barkley [facility] Start: 08-20-2023 End: 08-20-2023 ambulatory Charity Barkley [employer] Other Start: 08-20-2023 Office outpatient vi sit 15 minutes Charity Calvey [facility] Start: 07-23-2023 End: 07-23-2023 ambulatory Charity Calvey [employer] Other Start: 07-23-2023 Office outpatient vi sit 15 minutes Charity Calvey [facility] Start: 06-24-2023 Office outpatient vi sit 15 minutes Charity Calvey [facility] Start: 06-24-2023 End: 06-24-2023 Patient encounter procedure MD Charity Barkley Work Phone: [facility] Start: 06-24-2023 End: 06-24-2023 ambulatory NON STAFF [facility] Work Phone: Start: 05-21-2023 Office outpatient ne w 30 minutes Charity Barkley [facility] Start: 05-21-2023 End: 05-21-2023 ambulatory MD Charity Barkley Work Phone: [facility] Work Phone: Start: 05-21-2023 End: 05-21-2023 Patient encounter procedure MD Charity Barkley Work Phone: [facility] Start: 03-19-2023 End: 03-20-2023 ambulatory NARENDRANATH LAKSHMIPATHY . Facility:[facility] Start: 02-21-2023 End: 02-22-2023 ambulatory NARENDRANATH LAKSHMIPATHY . Facility:[facility] Start: 12-18-2022 End: 12-19-[address] ROMERO SOSA . Facility:[facility] Start: 11-22-2022 End: 11-23-[address] ROMERO SOSA . Facility:[facility] Start: 10-11-2022 Encounter for preprocedural laboratory examination DR ROMERO SOSA . [facility] Start: 10-09-2022 End: 10-09-[address] ROMERO SOSA . Facility:[facility] Start: 10-05-2022 End: 10-06-[address] ROMERO SOSA . Facility:[facility] Start: 10-05-2022 End: 10-06-2022 Encounter for preprocedural laboratory examination DR ROMERO SOSA . Facility:[facility] Start: 10-01-2022 Encounter for preprocedural cardiovascular examination ISELA SALMERON . [facility] Start: 09-26-2022 End: 09-27-2022 ambulatory ISELA [...] Start: 04-16-2018 End: 04-17-2018 Ambulatory BILLY EATONHEIM Facility:[facility] Start: 01-28-2018 End: 01-29-2018 Ambulatory DEFAULT PHYSICIAN Facility:[facility] Procedures Date Procedure Procedure Detail Performing Clinician Start: 06-02-2025 SKIN / NAIL BIOPSY Raj Tay MD Work Phone: Start: 06-02-2025 CRYOTHERAPY SKIN LESION Jessica Tay MD Work Phone: Start: 04-14-2025 Urnls dip stick/tabl et rgnt auto w/o microscopy Jodi WILLIAMSON Work Phone: Start: 04-14-2025 SUTURE REMOVAL Ovi francisco MD Work Phone: Start: 04-14-2025 Adult depression scr eening assessment Ovi Mcdaniel MD Work Phone: Start: 04-06-2025 Adult depression scr eening assessment Ovi Mcdaniel MD Work Phone: Start: 03-18-2025 Antibody screen SUMANTH LOZANO Comment on above: Order Comment: Speci men Type: BLOOD SPECIMENOrdering Facility: [facility] Address: [address] [place] [address] Performed By: #### T [id number] ####CC MAIN BLOOD BANKCLIA [id number] [address] [place] Start: 12-09-2024 Bone &/joint imaging 3 phase study Johnathan Kraus MD Work Phone: Start: 08-25-2024 Lipid 1996 panel - S kenji or Plasma Johnathan Kraus MD Work Phone: Start: 08-11-2024 Adult depression scr eening assessment Sumanth Hill MD Work Phone: Start: 06-04-2024 Follow-up visit Follow-up CONSTANCE SOSA Start: 12-27-2023 Ecg routine ecg w/le ast 12 lds trcg only w/o i&r Christina Varma BURN TABLE OPERATOR-HARDWARE DEVELOPER Work Phone: Start: 12-27-2023 End: 12-27-2023 Basic metabolic panel calcium total Christina Varma BURN TABLE OPERATOR-HARDWARE DEVELOPER Work Phone: Start: 12-26-2023 Basic metabolic pane l calcium total Christina Varma BURN TABLE OPERATOR-HARDWARE DEVELOPER Work Phone: Start: 12-25-2023 Fluor needle/cath spine/paraspinal [...] Adult depression scr eening assessment Dolores Anderson [employer] DELIVERY Start: 06-24-2023 Plain X-ray of right shoulder MD Charity Barkley Work Phone: Start: 05-21-2023 Plain X-ray of left hand MD Charity Barkley Work Phone: Start: 03-25-2023 Colonoscopy Unk (Hist) Plan of Treatment Date Care Activity Detail Author Start: 03-25-2033 Screening for malignant neoplasm of colon [facility] Start: 08-25-2029 Lipid panel Lipid Screening [facility] Start: 07-30-2028 Lipid panel Lipid Screening [facility] Start: 04-02-2028 Diabetes Screening Diabetes Screening [facility] Start: 08-25-2027 Diabetes Screening Diabetes Screening [facility] Start: 12-27-2026 Diabetes Screening Diabetes Screening [facility] Start: 06-02-2026 End: 06-02-2026 Patient encounter procedure 06/02/2026 8:45 AM EDT [facility] [address] [place] [address] Jessica Tay MD [address] [place] [address] [facility] Start: 04-14-2026 Adult BMI Screening Adult BMI Screening [facility] Start: 04-14-2026 Depression Screening Depression Screening [facility] Start: 04-14-2026 Tobacco Screening Tobacco Screening [facility] Start: 04-06-2026 Adult BMI Screening Adult BMI Screening [facility] Start: 04-06-2026 Depression Screening Depression Screening [facility] Start: 04-06-2026 Tobacco Screening Tobacco Screening [facility] Start: 10-12-2025 End: 10-12-2025 Patient encounter procedure 10/12/2025 3:45 PM EST Office Visit [facility] [address] [place] [phone] Juan F Heller MD [facility] [place] [address] [facility] Start: 08-31-2025 End: 08-31-2025 Patient encounter procedure 08/31/2025 11:00 AM EDT Office Visit [facility] [address] [place] [phone] Drew Leija PA-C [address] [place] [address] [facility] Start: 08-18-2025 End: 08-18-2025 Patient encounter procedure [facility] Start: 08-11-2025 Adult BMI Screening Adult BMI Screening [facility] Start: 08-11-2025 Depression Screening Depression Screening [facility] Start: 08-11-2025 Fall Risk Screening Fall Risk Screening [facility] Start: 08-11-2025 Medicare Annual Wellness Visit Medicare Annual Wellness Visit [facility] Start: 08-11-2025 Tobacco Screening Tobacco Screening [facility] Start: 07-05-2025 Influenza vaccination [facility] Start: 06-29-2025 End: 06-29-2025 ambulatory 06/29/2025 8:20 AM EDT [facility] [address] [place] [phone] Drew Leija PA-C [address] [place] [address] [facility] Start: 06-04-2025 Adult BMI Screening Adult BMI Screening [facility] Start: 06-04-2025 Tobacco Screening Tobacco Screening [facility] Start: 06-02-2025 End: 06-02-2025 Patient encounter procedure 06/02/2025 8:45 AM EDT Office Visit [facility] [address] [place] [phone] Jessica Tay MD [address] [place] [address] Arrived [facility] Comment on above: Arrived Start: 05-12-2025 End: 05-12-2025 ambulatory 05/12/2025 10:40 AM EDT [facility] [address] [place] [address] Drew Leija, PA-C [address] [place] [address] [facility] Comment on above: MYC Postop Start: 04-28-2025 Adult BMI Screening Adult BMI Screening [facility] Start: 04-28-2025 Tobacco Screening Tobacco Screening [facility] Start: 04-28-2025 End: 04-28-2025 Patient encounter procedure 04/28/2025 11:15 AM EDT Office Visit [facility] [address] [place] [address] [address] [facility] [place] [address] Jodi Canales PA [address] [place], [place] [phone] [facility] Start: 04-23-2025 Adult BMI Screening Adult BMI Screening [facility] Start: 04-14-2025 End: 04-14-2025 Patient encounter procedure [facility] Start: 04-06-2025 End: 04-06-2025 Patient encounter procedure 04/06/2025 3:00 PM EDT Office Visit [facility] [address] [place] [phone] [place] [address] [place] [address] [phone] [facility] Start: 04-06-2025 End: 04-06-2025 Nursing evaluation of patient and report 04/06/2025 11:00 AM EDT Nurse Visit [facility] [address] [place] [phone] Carrie Martines, [place]RE[place] 1 week Phone [facility] Comment on above: 1 week Phone Postop Start: 04-05-2025 End: 04-05-2025 ambulatory 04/05/2025 4:50 PM EDT Lab [facility] [address] [place] [address] [facility] Start: 03-30-2025 End: 03-30-2025 Admission to same day surgery center 03/30/2025 11:30 AM EDT - 03/30/2025 4:30 PM EDT Surgery Admitting [address] [place] [address] Johnathan Kraus MD [address] [place] [address] TLIF DECOMPRESSION LAMINECTOMY INTERBODY FUSION LUMBAR POSTERIOR (PLIF) LEVEL 1 Admitting Comment on above: TLIF DECOMPRESSION LAMINECTOMY INTERBODY FUSION LUMBAR POSTERIOR (PLIF) LEVEL 1 Start: 03-30-2025 End: 03-30-2025 Anesthesia consultation 03/30/2025 11:30 AM EDT Anesthesia Event Admitting [address] [place] [address] Mildred Gloria, ALEKSANDAR Admitting Start: 03-30-2025 End: 03-30-2025 Arthrodesis posterior interbody lumbar TLIF DECOMPRESSION LAMINECTOMY INTERBODY FUSION LUMBAR POSTERIOR (PLIF) LEVEL 1 Spondylolisthesis of lumbar region Pre-op testing 03/30/2025 11:30 AM EDT [facility] Start: 03-30-2025 End: 03-30-2025 Autograft spine surgery local from same incision AUTOGRAFT FOR SPINE SURGERY ONLY, OBTAINED FROM SAME INCISION Spondylolisthesis of lumbar region Pre-op testing 03/30/2025 11:30 AM EDT [facility] Start: 03-30-2025 End: 03-30-2025 Insj biomchn dev intervertebral dsc spc w/arthrd INSERTION INTERBODY BIOMED DEVICE(S) W/ANT INSTR ANCHORING TO DISC SPACE W/INTERBODY FUSION,EA INTERSPACE Spondylolisthesis of lumbar region Pre-op testing 03/30/2025 11:30 AM EDT [facility] Start: 03-30-2025 End: 03-30-2025 Posterior non-segmental instrumentation POSTERIOR NON-SEGMENTAL INSTRUMENTATION FOLLOWING LUMBAR FUSION 1 LEVEL PDFI Spondylolisthesis of lumbar region Pre-op testing 03/30/2025 11:30 AM EDT [facility] Start: 03-30-2025 Subsequent hospital visit by physician 03/30/2025 11:30 AM EDT Hospital Encounter Admitting [address] [place] [address] Johnathan Kraus MD [address] [facility] [address] [place] [address] Spondylolisthesis of lumbar region [M43.16], Pre-op testing [Z01.818] Admitting Comment on above: Spondylolisthesis of lumbar region [M43. 16], Pre-op testing [Z01.818] Start: 03-23-2025 End: 03-23-2025 Nursing evaluation of patient and report 03/23/2025 10:00 AM EDT Nurse Visit [facility] [address] [place] [phone] Carrie Martines, RN Phone Education [facility] Comment on above: Phone Education Start: 03-18-2025 End: 03-18-2025 ambulatory 03/18/2025 2:00 PM EDT Results Only [place] [id number] [place] [address] Preop lab and nasal swab [place] [id number] Draw Station Comment on above: Preop lab and nasal swab Start: 03-18-2025 End: 03-18-2025 Anesthesia consultation 03/18/2025 1:00 PM EDT PAT Pre Anesthesia [address] [place] [address] 8, [facility] [address] [place] [phone] Preop Pre Anesthesia Comment on above: Preop Start: 03-18-2025 End: 03-18-2025 Patient encounter procedure 03/18/2025 12:30 PM EDT Office Visit Admitting [address] [id number], Admit Interview [address] [place] [address] Preop Admitting Comment on above: Preop Start: 03-17-2025 End: 03-17-2025 ambulatory 03/17/2025 1:00 PM EDT [facility] [address] [facility] [address] Marek Espinoza, PSYD [address] [place] [address] [id number] Pain Comment on above: [id number] Start: 03-15-2025 End: 03-15-2025 Patient encounter procedure 03/15/2025 11:15 AM EDT Office [place] [address] Nancy [employer] Phone Screening Comment on above: Nancy Start: 03-11-2025 End: 03-10-2026 CBC W Auto Differential panel - Blood COMPLETE BLOOD COUNT AND DIFFERENTIAL Lab Routine Spondylolisthesis of lumbar region Pre-op testing Anemia, unspecified type Expected: 03/11/2025 (Approximate), Expires: 03/10/2026 [facility] Comment on above: Expected: 03/11/2025 (Approximate), Expi res: 03/10/2026 Start: 03-11-2025 End: 06-10-2025 CONFIRM BLOOD TYPE CONFIRM BLOOD TYPE Blood Bank Routine Spondylolisthesis of lumbar region Pre-op testing Anemia, unspecified type Expected: 03/11/2025 (Approximate), Expires: 06/10/2025 [facility] Comment on above: Expected: 03/11/2025 (Approximate), Expi res: 06/10/2025 Start: 03-11-2025 End: 03-10-2026 Ferritin [Mass/volume] in Serum or Plasma FERRITIN Lab Routine Spondylolisthesis of lumbar region Pre-op testing Anemia, unspecified type Expected: 03/11/2025, Expires: 03/10/2026 [facility] Comment on above: Expected: 03/11/2025, Expires: Start: 03-11-2025 End: 03-10-2026 Iron and Iron binding capacity panel - Serum or Plasma IRON AND TIBC Lab Routine Spondylolisthesis of lumbar region Pre-op testing Anemia, unspecified type Expected: 03/11/2025 (Approximate), Expires: 03/10/2026 [facility] Comment on above: Expected: 03/11/2025 (Approximate), Expi res: 03/10/2026 Start: 03-11-2025 End: 03-10-2026 NICOTINE/COTININE NICOTINE/COTININE Lab Routine Lumbar spondylosis Expected: 03/11/2025 (Approximate), Expires: 03/10/2026 [facility] Comment on above: Expected: 03/11/2025 (Approximate), Expi res: 03/10/2026 Start: 03-11-2025 End: 09-06-2025 STAPHYLOCOCCUS AUREUS & MRSA SCREEN, PCR, NASAL STAPHYLOCOCCUS AUREUS & MRSA SCREEN, PCR, NASAL Lab Routine Spondylolisthesis of lumbar region Pre-op testing 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) Expected: 03/11/2025 (Approximate), Expires: 09/06/2025 [facility] Work Phone: Comment on above: Expected: 03/11/2025 (Approximate), Expi res: 09/06/2025 Start: 03-11-2025 End: 06-10-2025 TYPE AND SCREEN,30 DAY TYPE AND SCREEN,30 DAY Blood Bank Routine Spondylolisthesis of lumbar region Pre-op testing Anemia, unspecified type Expected: 03/11/2025 (Approximate), Expires: 06/10/2025 [facility] Comment on above: Expected: 03/11/2025 (Approximate), Expi res: 06/10/2025 Start: 02-11-2025 Adult BMI Screening Adult BMI Screening [facility] Start: 02-11-2025 Tobacco Screening Tobacco Screening [facility] Start: 01-09-2025 End: 01-09-2025 ambulatory 01/09/2025 9:30 AM EST [facility] [address] [place] [address] Johnathan Kraus MD [address] [facility] [address] [place] [id number] f/u with provider [facility] Comment on above: f/u with provider Start: 12-25-2024 Adult BMI Screening Adult BMI Screening [facility] Start: 12-25-2024 Tobacco Screening Tobacco Screening [facility] Start: 12-20-2024 Adult BMI Screening Adult BMI Screening [facility] Start: 12-20-2024 [facility]ening [facility] Start: 12-09-2024 End: 12-09-2024 Patient encounter procedure [facility] Comment on above: Weight 225 / Not Diabetic / DX: Abnormal findings on diagnostic imaging of other parts of musculoskeletal system [R93.7] WITH SPECT CT... Start: 11-14-2024 Adult BMI Screening Adult BMI Screening [facility] Start: 11-14-2024 Tobacco Screening Tobacco Screening [facility] Start: 11-04-2024 Advance Directive Discussion Advance Directive Discussion [facility] Start: 10-31-2024 Tobacco Screening Tobacco Screening [facility] Start: 10-23-2024 Fall Risk Screening Fall [facility]ening [facility] Start: 10-22-2024 Adult BMI Screening Adult BMI Screening [facility] Start: 08-11-2024 End: 08-11-2025 CBC W Auto Differential panel - Blood CBC auto differential Lab Routine Pure hypercholesterolemia Expected: 08/11/2024, Expires: 08/11/2025 [employer] Phone: Comment on above: Expected: 08/11/2024, Expires: Start: 08-11-2024 End: 08-11-2025 Comprehensive metabolic 2000 panel - Serum or Plasma Comprehensive metabolic panel Lab Routine Pure hypercholesterolemia Expected: 08/11/2024, Expires: 08/11/2025 [facility] on above: Expected: 08/11/2024, Expires: Start: 08-11-2024 End: 08-11-2025 Lipid 1996 panel - Serum or Plasma Lipid profile Lab Routine Pure hypercholesterolemia Expected: 08/11/2024, Expires: 08/11/2025 [facility] Comment on above: Expected: 08/11/2024, Expires: Start: 08-11-2024 End: 08-11-2025 Thyroid profile includes TSH FT4 Thyroid profile includes TSH FT4 Lab Routine Pure hypercholesterolemia Expected: 08/11/2024, Expires: 08/11/2025 [facility] on above: Expected: 08/11/2024, Expires: Start: 08-11-2024 End: 08-11-2024 Patient encounter procedure 08/11/2024 9:00 AM EDT Office Visit [facility] [address] [place] [phone] Sumanth Hill MD [address] [place] [address] [facility] Start: 07-30-2024 End: 07-30-2024 Patient encounter procedure 07/30/2024 8:30 AM EDT Office Visit [facility] [address] [place] [phone] Sumanth Hill MD [address] [place], [place] [phone] [facility] Start: 07-29-2024 Depression Screening Depression Screening [facility] Start: 07-29-2024 Medicare Annual Wellness Visit Medicare Annual Wellness Visit [facility] Start: 07-05-2024 COVID-19 Vaccine ( season) COVID-19 Vaccine ( season) [facility] Start: 07-05-2024 Covid-19 Vaccine ( season) Covid-19 Vaccine ( season) [facility] Start: 07-05-2024 Influenza vaccination [facility] Start: 06-04-2024 End: 06-04-2024 Patient encounter procedure 06/04/2024 9:45 AM EDT [facility] [address] [place] [phone] Mayco Nolen MD [address] [place] [phone] [facility] Start: 05-01-2024 End: 05-01-2024 Patient encounter procedure 05/01/2024 7:30 AM EDT Appointment [facility] - [facility] [address] [place], [place] [address] [address] Spondylolisthesis of lumbar region [facility] Comment on above: Spondylolisthesis of lumbar region Start: 04-28-2024 End: 04-28-2024 Patient encounter procedure 04/28/2024 1:00 PM EDT Office Visit [facility] [address] [place] [phone] Juan F Heller MD [address] [place] [address] [facility] Start: 04-21-2024 End: 04-21-2024 Patient encounter procedure 04/21/2024 1:45 PM EDT Office Visit [facility] [address] [place] [phone] Juan F Heller MD [address] [place] [address] [facility] Start: 03-25-2024 Screening for malignant neoplasm of colon [facility] Start: 02-13-2024 End: 02-13-2024 Patient encounter procedure 02/13/2024 1:50 PM EDT Office Visit [facility] [address] [place] [phone] Mayco Nolen MD [address] [place] [phone] [facility] Start: 02-12-2024 End: 02-11-2025 XR Lumbar spine Views AP W right bending and W left bending [facility] Comment on above: Expected: 02/12/2024, Expires: Start: 12-25-2023 End: 12-25-2023 Admission to same day surgery center 12/25/2023 2:45 PM EST - 12/25/2023 4:45 PM EST [facility] [address] [place] [phone] Mayco Nolen MD [address] [place] [address] [address] [place] [phone] LAMINECTOMY LUMBAR MULTI LEVEL / L2-L5 [facility] Comment on above: LAMINECTOMY LUMBAR MULTI LEVEL / L2-L5 Start: 12-25-2023 End: 12-25-2023 LAMINECTOMY LUMBAR MULTI LEVEL [facility] Start: 12-25-2023 Subsequent hospital visit by physician 12/25/2023 2:45 PM EST Hospital Encounter [facility] [address] [place] [phone] Mayco Nolen MD [address] [place] [address] [address] [place] [phone] [facility] Start: 12-06-2023 End: 12-06-2023 Patient encounter procedure 12/06/2023 7:00 AM EST [facility] [address] [place] [phone] [facility] Start: 11-14-2023 End: 11-14-2024 XR Lumbar spine Views AP W right bending and W left bending [facility] Work Phone: Comment on above: Expected: 11/14/2023, Expires: Start: 11-04-2023 Advance Directive Discussion Advance Directive Discussion [facility] Start: 07-05-2023 Covid-19 Vaccine ( season) Covid-19 Vaccine () [facility] Start: 07-05-2023 COVID-19 Vaccine ( season) COVID-19 Vaccine ( season) [facility] Start: 2017 Abdominal aortic aneurysm screening Abdominal Aortic Aneurysm (AAA) Screen [facility] Start: 03-04-2017 Medicare Annual Wellness Visit Medicare Annual Wellness Visit [facility] Start: 07-24-2013 Administration of varicella zoster vaccine Zoster (Shingles) Vaccine (1 of 2) [facility] Start: 07-24-2013 Shingrix Vaccine (2 of 3) Shingrix Vaccine (2 of 3) [facility] Start: 2012 RSV Vaccine (1 - 1-dose 60+ series) RSV Vaccine (1 - 1-dose 60+ series) [facility] Start: 1997 Screening for malignant neoplasm of colon [facility] Start: 1971 DTaP,Tdap and Td Vaccines (1 - Tdap) DTaP,Tdap and Td Vaccines (1 - Tdap) [facility] Start: 1971 Urine microalbumin profile DTaP,Tdap,Td Vaccine (1 - Tdap) [facility] Start: 1970 Adult BMI Follow Up Plan Adult BMI Follow Up Plan [facility] Start: 1970 Anxiety Screening Anxiety Screening [facility] Start: 1970 Depression Screening Depression Screening [facility] Start: 1970 Hepatitis C screening Hepatitis C Screening [facility] Start: 1952 Abdominal aortic aneurysm screening Abdominal Aortic Aneurysm Screening [facility] Start: 1952 Screening for malignant neoplasm of colon [facility] End: 04-05-2026 Bacteria identified in Urine by Culture Urine culture (clean catch) Microbiology Routine Hematuria, unspecified type 1 Occurrences starting 04/05/2025 until 04/05/2026 [facility] Comment on above: 1 Occurrences starting 04/05/2025 until 04/05/2026 Bacteria identified in Urine by Culture Urine culture (clean catch) Microbiology Routine Hematuria, unspecified type 04/05/2025 5:05 PM EDT [facility] Cytology non-gynecologic Cytolog y non-gynecologic Pathology and Cytology Routine Gross hematuria Adenocarcinoma of prostate ([facility]) 04/14/2025 4:28 PM EDT [facility] Dermatopathology exam Dermatopat hology exam Pathology and Cytology Timed Neoplasm of unspecified behavior of bone, soft tissue, and skin Release Upon Ordering for 1 Occurrences starting 06/02/2025 [facility] Work Phone: Comment on above: Release Upon Ordering for 1 Occurrences starting 06/02/2025 End: 02-11-2025 MR Lumbar spine WO contrast MR lumbar spine without contrast Imaging Routine Status post lumbar laminectomy Low back pain, non-specific Leg pain, right Weakness of right lower extremity Sensory deficit, right 1 Occurrences starting 02/12/2024 until 02/11/2025 [employer] Work Phone: Comment on above: 1 Occurrences starting 02/12/2024 until 02/11/2025 End: 12-25-2025 NM Bone 3 Phase Views NM BONE 3 PHASE Radiology Routine Abnormal findings on diagnostic imaging of other parts of musculoskeletal system 1 Occurrences starting 11/25/2024 until 12/25/2025 [facility] Comment on above: 1 Occurrences starting 11/25/2024 until 12/25/2025 End: 04-14-2026 Prostatic specific antigen, diagnostic Prostatic specific antigen, diagnostic Lab Routine Adenocarcinoma of prostate ([place]) 1 Occurrences starting 04/14/2025 until 04/14/2026 [employer] Work Phone: Comment on above: 1 Occurrences starting 04/14/2025 until 04/14/2026 End: 12-25-2025 SPECT Bone NM BONE SPECT Radiology Routine Spondylolisthesis of lumbar region 1 Occurrences starting 11/25/2024 until 12/25/2025 [facility] Work Phone: Comment on above: 1 Occurrences starting 11/25/2024 until 12/25/2025 End: 04-05-2026 Urinalysis Urinalysis Lab Routine Hematuria, unspecified type 1 Occurrences starting 04/05/2025 until 04/05/2026 [employer] Work Phone: Comment on above: 1 Occurrences starting 04/05/2025 until 04/05/2026 Urinalysis Urinalysis Lab R outine Hematuria, unspecified type 04/05/2025 5:05 PM EDT Xl[facility]ena Urovysion for bladder Urovysion for bladder Lab Routine Gross hematuria Adenocarcinoma of prostate ([place]) 04/14/2025 4:28 PM EDT [facility] End: 07-29-2026 XR Lumbar spine AP and Lateral XR LUMBAR LIMITED 2V AP/LAT Radiology Routine S/P lumbar fusion SI joint arthritis 1 Occurrences starting 06/29/2025 until 07/29/2026 [facility] Work Phone: Comment on above: 1 Occurrences starting 06/29/2025 until 07/29/2026 Immunizations Immunization Date Immunization Notes Care Provider Yogi rehmankaela 07-09-2024 influenza, high dose seasonal, preservative-free Sumanth Hill MD Work Phone: [facility] 07-09-2024 Pneumococcal Conjuga te 20-valent Sumanth Hill MD Work Phone: [facility] 07-09-2024 influenza virus vacc ine, unspecified formulation Lupe Mariajoseradhamike [facility] 08-05-2023 Influenza, High-dose , Quadrivalent Sumanth Hill MD Work Phone: [facility] 08-05-2023 RSV, bivalent, prote in subunit RSVpreF, diluent reconstituted, 0.5 mL, PF Sumanth Hill MD Work Phone: [facility] 08-05-2023 influenza virus vacc ine, unspecified formulation Carl 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 Work Phone: [facility] 08-20-2022 Influenza, High-dose , [facility]rivalent [facility] influenza virus vacc ine, unspecified formulation Unk (Hist) [facility] 04-26-2022 influenza, injectabl e, quadrivalent, preservative free Dolores Chehi [facility] 09-18-2021 influenza, injectabl e, quadrivalent, preservative free Dolores Chehi [facility] 07-20-2020 Influenza, High-dose , Quadrivalent Dolores Chehi [facility] 08-11-2019 influenza, high dose seasonal, preservative-free Dolores Chehi [facility] 08-11-2019 pneumococcal polysaccharide vaccine, 23 valent Dolores Chehi [facility] 07-31-2018 influenza, injectabl e, quadrivalent, preservative free [facility] 11-20-2017 influenza, seasonal, injectable, preservative free [facility] 11-20-2017 pneumococcal conjuga te vaccine, 13 valent Dolores [facility] 08-19-2013 pneumococcal polysaccharide vaccine, 23 valent Dolores [facility] 05-29-2013 zoster vaccine, live Dolores [facility] 05-29-2013 zoster vaccine, unspecified formulation Dolores [facility] 08-18-2012 influenza virus vacc ine, whole virus Dolores [facility] 08-13-2012 pneumococcal polysaccharide vaccine, 23 valent Dolores [facility] 08-13-2012 zoster vaccine, live Dolores [facility] 09-03-2011 influenza virus vacc ine, whole virus Dolores [facility] 09-11-2010 influenza virus vacc ine, whole virus Dolores [facility] 08-22-2009 influenza virus vacc ine, whole virus Dolores [facility] Payers Date Payer Category Payer Self-pay [id number] 2023 Unknown [id number] 2021 Private Health Insurance [id number] 2019 [facility] [id number] .[id number] 2019 Unknown 2017 Medicare [id number]. [id number] .[id number] 1959 Medicare [id number] 1959 Unknown [id number] 1959 Unknown [id number] 1952 Unknown [id number] 2.16.840.1.891515.3.579.2 .593 1952 Unknown [id number] 2.16.840.1.403282.3.579.2 .593 1952 Unknown [id number] 2.16.840.1.070307.3.579.2 .593 1952 Unknown [id number] 2.16.840.1.742213.3.579.2 .593 1952 Unknown [id number] 2.16.840.1.694473.3.579.2 .593 1952 Unknown [id number] 2.16.840.1.345083.3.579.2 .593 1952 Unknown [id number] 2.16.840.1.420162.3.579.2 .593 1952 Unknown [id number] 2.16.840.1.043873.3.579.2 .593 1952 Unknown [id number] 2.16.840.1.327837.3.579.2 .593 1952 Unknown [id number] 2.16.840.1.824118.3.579.2 .593 1952 Unknown [id number] 2.16.840.1.595405.3.579.2 .593 1952 Unknown [id number] 2.16.840.1.978468.3.579.2 .1286 1952 Unknown [id number] 2.16.840.1.641177.3.579.2 .1286 1952 Unknown [id number] 2.16.840.1.563720.3.579.2 .1285 1952 Unknown [id number] 2.16.840.1.897841.3.579.2 .1285 1952 Unknown [id number] 2.16.840.1.684001.3.579.2 .1285 1952 Unknown [id number] 2.16.840.1.001165.3.579.2 .1285 1952 Unknown [id number] 2.16.840.1.402336.3.579.2 .1285 1952 Unknown [id number] 2.16.840.1.947688.3.579.2 .1285 1952 Unknown [id number] 2.16.840.1.277266.3.579.2 .1952 Unknown [id number] 2.16.840.1.424004.3.579.2 .1952 Unknown [id number] 2.16.840.1.252356.3.579.2 .1285 1952 Unknown [id number] 2.16.840.1.211794.3.579.2 .1285 1952 Unknown [id number] 2.16.840.1.398842.3.579.2 .1285 1952 Unknown [id number] 2.16.840.1.095764.3.579.2 .1285 1952 Unknown [id number] 2.16.840.1.255348.3.579.2 .1285 1952 Unknown [id number] 2.16.840.1.524348.3.579.2 .1285 1952 Unknown [id number] 2.16.840.1.365911.3.579.2 .1285 1952 Unknown [id number] 2.16.840.1.569857.3.579.2 .1285 1952 Unknown [id number] 2.16.840.1.773905.3.579.2 .1286 1952 Unknown [id number] 2.16.840.1.320385.3.579.2 .1259 1952 Unknown [id number] 2.16.840.1.855116.3.579.2 .1259 Unknown [facility] [id number] Unknown [id number] 2.16.840.1.650677.3.579.2 .531 Worker's Compensation [id number] Social History Date Type Detail Facility Unknown if ever smoked [facility] Work Phone: Start: 11-02-2017 End: 11-25-2024 Sex Assigned At [facility] Start: 1950 Sex Assigned At Male F [facility] Start: 11-07-2018 End: 06-18-2024 Tobacco smoking status [facility] Never smoked tobacco (finding) [facility] Start: 02-08-2017 End: 03-18-2025 Tobacco smoking status [facility] Ex-smoker [facility] End: 11-04-1996 History of tobacco use Current smoker [facility] End: 11-04-1996 History of tobacco use Cigarette Smoker [facility] Start: 02-08-2017 End: 03-18-2025 Tobacco use and exposure Smokeless tobacco non-user [facility] Start: 05-01-2017 End: 03-18-2025 Alcoholic beverage intake Current drinker of alcohol (finding) [facility] Start: 11-02-2017 End: 11-25-2024 History of Social function [facility] Start: 1950 Sex assigned at Not on file P [facility] Start: 12-17-2014 Adult Depression Screening Assessment 1 [facility] Start: 07-22-2024 Gender identity Identifies as male gender (finding) [facility] Start: 07-22-2024 Sexual orientation Heterosexual (fin ding) [facility] Start: 01-17-2023 Alcohol Comment socially [facility] Start: 06-09-2015 End: 01-26-2025 Sex Male (finding) [facility] History of tobacco use Passive smoker [facility] Start: 03-18-2025 Alcohol Comment 12 drinks a we ek per pt 03/18/2025 [facility] Has the electric, [employer], [employer], or water company threatened to shut off services in your home in past 12Mo No [facility] (I/We) worried sangeeta er (my/our) food would run out before (I/we) got money to buy more. Never true [facility] Medical Equipment Procedure Code Equipment Code Equipment Origin al Text Equipment Identifier Dates Patch Dura 1x1in Drmtrx-[place] + Clgn Rgnrt Membr Strl Rpl [id number] - [id number] Start: 12-25-2023 I-Factor Peptide Enhanced Bone Graft Putty 5cc - [id number] Start: 03-30-2025 Screw Justin 3 Marycruz nium Set Radha [facility] - [id number] Start: 03-30-2025 Solitario Justin 3 6mm Titanium 40mm Spinal Radiolucent - [id number] Start: 03-30-2025 Screw Justin 3 Serr susan 6.5mm 45mm Bone Polyaxial Reduction Nonsterile Spine [id number] Start: 03-30-2025 Goals Date Patient Goal Desired Activity /State [...] No 03/12/2017 5:46 PM Dolores Viera, [place] [facility] 03-12-2017 Are you blind, or do you have serious difficulty seeing, even when wearing glasses No 03/12/2017 5:46 PM Dolores Viera, [place] [facility] 03-12-2017 Do you have serious difficulty walking or climbing stairs No 03/12/2017 5:46 PM Dolores Viera, [place] No [facility] 03-12-2017 Do you have difficul ty dressing or bathing No 03/12/2017 5:46 PM Dolores Viera, [place] No [facility] 03-12-2017 Because of a physica l, mental, or emotional condition, do you have difficulty doing errands alone such as visiting a physician's office or shopping No 03/12/2017 5:46 PM Dolores Viera RN No [facility] Mental Status Date Assessment Result Facility 03-12-2017 Because of a physica l, mental, or emotional condition, do you have serious difficulty concentrating, remembering, or making decisions No 03/12/2017 5:46 PM Dolores Viera RN No [facility] Clinical Notes 06-14-2022 to 06-29-2025 Patient InstructionsDrew Leija PA-C - 06/29/2025 8:20 AM EDTEminatty Tay MD - 06/02/2025 8:45 AM EDTTelephone Encounter - Carrie Martines RN - 05/14/2025 10:45 AM EDTPatient Instructions Note Date & Type Note Facility 06-29-2025 Instructions Drew Leija PA-C - 06/29/2025 9:24 AM EDT - Continue taking your gabapentin and Flexeril as prescribed; refills remain available through your pain management physician. - Keep doing the spinal stabilization exercises you were given. When lifting your legs, raise one leg at a time instead of both together to reduce strain on your lower back. - There are no surgical restrictions--gradually increase your activities and take a break about every 90 minutes when standing or walking. - A physical therapy order has been sent to you; bring it to a therapist near your home for focused work on your lumbar spine and sacroiliac (SI) joint. - Monitor your back and right-sided SI joint pain over the next 4-6 weeks. If the pain worsens or does not improve, let us know so we can arrange an in-person exam and obtain x-rays. - Your next in-person follow-up is scheduled for August 03 at 11:00 AM at [facility] (off [address] in [place]). If you re doing well before then, you can switch this visit to virtual or move it to your 6-month post-op appointment--just contact us. - If you have questions or issues with your billing statement, call the phone number listed on the bill first. If the issue continues, send a [facility]MNT message or call our office for help. - For any other concerns or questions, feel free to send a [employer] message or call the clinic. documented in this encounter [facility] 06-29-2025 History of Present illness Narrative Images from the original note were not included. SPINE SURGERY FOLLOW UP This is a virtual visit using [employer] Video Visit. It required patient-provider interaction for the medical decision making as documented below. I have communicated my name and active licensure. The patient's identity and physical location were verified at the time of this visit. Either the patient or their legal customer engagement representative has been informed of the risks and benefits of -- and alternatives to -- treatment through a remote evaluation and consents to proceed with the evaluation remotely. SERVICE DATE: 06/29/25 LV: 05/12/2025 SURGERY DATE: 03/30/25 Procedure(s): 1. Revision decompression L4-5, bilateral L4/5 facetectomies 2. L4-5 combined transforaminal interbody fusion and posterior lateral fusion-placement of biomechanical cage mononsegmental instrumentation at L4/5 3. Use of local autograft 4. Use of I factor Regan Green is seen for 3 month post operative follow up. Current symptoms: Kenneth Green is a 75-year-old male presenting for follow-up three months post-surgery, reporting new onset of right-sided back pain. Kenneth reports new onset of right-sided back pain near the waist, around the sacroiliac (SI) joint, which began approximately 4-6 weeks ago. The pain is described as very, very painful in the morning and occasionally radiates into the hip. The pain improves as the day progresses. He rates his back pain as 5/10. He is currently taking gabapentin and Flexeril, which were recently refilled by his pain management physician. Kenneth is performing prescribed exercises, which he finds helpful. However, he notes that certain exercises, such as raising both legs simultaneously while lying on his back, place a burden on the small of his back. He inquires about modifying this exercise to raise one leg at a time. Kenneth recently took his grandchildren to the fair and found that prolonged standing was challenging, stating it was way too long on my feet. Despite this, he expresses satisfaction with the overall outcome of his surgery, stating, I can't believe how it feels honestly, you know, I mean, it's just, it's remarkable, like, why didn't I do this sooner, you know? Incision: No Concerns Activity: Walking 1-2 miles per day Regular BM: Yes Regular Urination: Yes Current Medication: Flexeril and Gabapentin per PM Do you need any refills on pain medication? No PAIN EVALUATION 06/28/2025 1124 Pain Level: 5 Pain Location: Back-Lower Description: Radiating;Sharp Duration Units: Days Intervention/Comfort measure: Medication;Relaxation;Cold;Exercis e;Pillow support Patient Entered Questionnaires 01/03/2025 03/17/2025 04/04/2025 Spine Questions Pain Location: Lower back Lower back Lower back Symptoms from neck/cervical spine: Yes No No Employment Status: Retired 01/03/2025 Neck Questionnaires Benzel Modified VJ Score 14 (Moderate Myelopathy Symptoms) PROMIS Score Percentiles 11/18/2024 01/03/2025 03/17/2025 Physical Health Physical Function Percentile 5 8 12 Sleep Percentile 18* 16* 27* Fatigue Percentile 50 27* 46 Pain Interference Percentile 4 5 4 11/18/2024 01/03/2025 03/17/2025 PROMIS SOCIAL ROLE SCORE Social Role Satisfaction Percentile 31 16* 24* 02/08/2017 11/18/2024 03/14/2025 PROMIS Global Health Scale Physical Health Percentile 31 15 Mental Health Percentile 63 53 34 Patient-reported Percentiles provide an indication of how the patient's score ranks in relation to the general population. Higher percentile rankings indicate better function/quality of life. 50th percentile is the average of the general population and indicates half of respondents had a worse score. Depression Screenin11/18/2024 01/03/2025 03/17/2025 PHQ-9 Score 5 3 2 11/18/2024 01/03/2025 03/17/2025 PHQ-9 Self-harm Question Question 9 Not at all Not at all Not at all PHQ-9 Self-Harm (Item 9) response options: 0 Not at all 1 Several days 2 More than half the days 3 Nearly every day PHQ-9 Levels: 0-4 No to mild depression 5-9 Mild depression 10-14 Moderate depression 15-19 Moderately severe depression 20-27 Severe depression PHYSICAL EXAM: GENERAL APPEARANCE: Well nourished, well developed, and no apparent distress. NEURO PSYCH: Patient oriented to person, place, and time. Mood pleasant. Benign affect. WOUND ASSESSMENT: Incision healing, No drainage DATA REVIEW [facility] records independently reviewed Images independently reviewed with the patient ASSESSMENT/PLAN (M46.1) SI joint arthritis (primary encounter diagnosis) (Z98.1) S/P lumbar fusion (G89.18) Acute post-operative pain Patient is 3 months S/P 03/30/2025: revision L4-5 decompression, L4-5 TLIF and is doing well. No signs or symptoms of infection, 1. S/P lumbar fusion (Z98.1) 2. Acute post-operative pain (G89.18) 3. SI joint arthritis (M46.1) - Three months post-op; overall recovery is progressing well. - Morning pain localized to the right SI joint region with occasional radiation to the hip, improving throughout the day; likely muscular in nature or due to compensatory changes post-fusion. - Continue home exercise program; advised to modify exercises to avoid strain (e.g., perform leg raises one at a time). - Continue gabapentin and Flexeril as prescribed by pain management physician. - Provided education on potential causes of SI joint pain post-fusion, including changes in alignment and compensatory mechanisms. - Advised to take breaks every 90 minutes during prolonged activities. - No current surgical restrictions; may slowly start new activities. - Physical therapy orders to address lumbar and SI joint stabilization will be sent. - Hold off on X-rays unless symptoms worsen or fail to improve. - Follow-up in person on August 03; may convert to virtual or defer to 6-month post-op if symptoms resolve. Location: [address] [facility] use for GPS[facility] [address] [facility] [facility] [address] [facility] [address] [facility] (located on your left hand side, when you come in the building) Neurosurgery On-call (after hours or weekend) [phone] or [phone], ask for neurosurgery on-call I spent a total of 20 minutes on the date of the service which included preparing to see the patient, [id number] patient care, completing clinical documentation, obtaining and/or reviewing separately obtained history, counseling and educating the patient/family/caregiver, ordering medications, tests, or procedures, and care coordination (not separately reported). Drew Leija PA-C [phone] documented in this encounter [facility] [place] 06-02-2025 History of Present illness Narrative Images from the original note were not included. Skin Check Location: Patient requests a skin examination from the waist up Dermatologic history: history of Actinic Keratosis, history of atypical mole(s) Last visit: 1 year ago Established patient Lesions: Location: Right cheek/bilateral evangelical Duration: few months Quality: denies pain, denies itch, denies bleeding Associated symptoms: red, rough, scaly Treatments: none All pertinent medical history, medications, and allergies were reviewed. General Exam: alert, oriented to person, place, and time, normal affect, well appearing Unaccompanied A complete skin exam was offered, pt declined. Areas not examined despite medical recommendation: From the waist down Scalp, Examined Head, Face Examined Neck Examined Chest Examined Back Examined Abdomen Examined Right arm Examined Left arm Examined Hands Examined Digits,nails: Examined Lymphatics: Not examined Skin Exam 1. ACTINIC KERATOSIS (5) Left Buccal Cheek, Left Methodist, Mid Parietal Scalp, Right Malar Cheek, Right Methodist Erythematous scaly papules Patient was counseled regarding these sun-induced growths that can develop into squamous cell carcinoma if left untreated. Discussed treatment options, including cryotherapy and topical preparations. It was emphasized that any treated lesions that fail to resolve should be re-evaluated. Patient elected for treatment with Efudex as this has become a chronic issue. Educated on Efudex treatment. Apply to Scalp and Temples twice a day for two weeks. Discussed that treated areas will become red, crusty, and inflamed. If areas become too uncomfortable, patient may use OTC hydrocortisone cream to help decrease irritation and can discontinue treatment early. Sun exposure should be avoided during treatment. Patient instructed to contact office for any questions or issues during treatment. Lesions that fail to resolve once treated area is healed should be re-evaluated in the office. Handout given to patient Cryotherapy performed today; see procedure note Diagnosis: Actinic keratosis Indication: Precancerous Location: see skin exam Consent: Verbal consent was obtained and risks were discussed, including, but not limited to risks of scarring, darker or family partner pigmentary changes, recurrence, incomplete removal and infection. Method: Liquid nitrogen was used to treat the lesion(s) with two 5-10 second freeze-thaw cycles. Eyes were shielded using cotton pad during procedure Number of lesions treated: 2 Post-procedure instructions: Instructions were given orally and in writing. The office will be contacted if the lesion fails to resolve despite treatment, or if a side effect develops such as abnormal crusting, scabbing, redness or tenderness Cryotherapy, skin lesion - Left Buccal Cheek, Left Methodist, Mid Parietal Scalp, Right Malar Cheek, Right Methodist Related Medications fluorouracil (Efudex) 5 % cream Apply to directed areas on the scalp and temples twice a day x 14 days. Dispense 30 day supply but only use for 14 days. 2. LENTIGINES (2) Generalized, Head - Anterior (Face) Scattered negro macules in sun-exposed areas. The patient was informed that lentigines are benign pigmented lesions that occur on sun-exposed and sun-damaged skin. No treatment is necessary. Recommended regular use of broad spectrum sunscreen SPF 30 or higher 3. MELANOCYTIC NEVUS OF TRUNK Torso - Posterior (Back) Scattered benign appearing, regular brown to light brown melanocytic papules and macules with similar morphology Counseled regarding these benign growths. Rarely, a nevus can develop into malignant melanoma, so any changing nevi should be promptly re-evaluated. 4. SEBORRHEIC KERATOSIS Generalized Stuck on verrucous, negro-brown papules and plaques. Patient was counseled regarding these benign growths. Removal is normally not necessary, but they may be removed if they are symptomatic or for cosmetic reasons. 5. NEOPLASM OF UNSPECIFIED BEHAVIOR OF BONE, SOFT TISSUE, AND SKIN Mid Upper Back [place] papule Lesion biopsy Type of biopsy: tangential Informed consent: discussed and consent obtained Informed consent comment: The risks and benefits of the biopsy were discussed. Risks include but are not limited to bleeding, infection, scarring, pain, and nerve damage. An opportunity to ask questions prior to the procedure was permitted and all questions were answered. Patient was prepped and draped in usual sterile fashion: area cleansed with alcohol. Anesthesia: the lesion was anesthetized in a standard fashion Anesthetic: 1% lidocaine w/ epinephrine 1-100,000 buffered w/ 8.4% NaHCO3 Instrument used: DermaBlade Hemostasis achieved with: electrodesiccation Outcome: patient tolerated procedure well Outcome comment: The specimen was placed in a prelabeled formalin container to be sent for pathology Post-procedure details: sterile dressing applied and wound care instructions given Post-procedure details comment: Emphasized need to contact clinic for any signs of infection, uncontrollable bleeding, or complications. Dressing type: bandage Additional details: Photo taken yes Amount of lidocaine used: 0.5 cc Specimen A - Dermatopathology exam Differential Diagnosis: BCC vs SCC vs scar Check Margins: No Size of lesion: 1.1 x 0.7 cm Diagnosis: (L57.0) Actinic keratosis Plan: Cryotherapy, skin lesion (L81.4) Lentigines (D22.5) Melanocytic nevus of trunk (L82.1) Seborrheic keratosis (D49.2) Neoplasm of unspecified behavior of bone, soft tissue, and skin Plan: Lesion biopsy Next Visit: 1 year, pending bx results documented in this encounter [facility] 05-14-2025 Telephone encounter Note Neuro SPINE CARE COORDINATION QUICK NOTE Returned call to patient to discuss questions. I relayed information as per Drew Duarte. I stated that ok to ride his riding mower as well as his motorcycle try in short bursts of time to see how he is feeling. If having pain or feeling anything wait a few days and then can try again. I also stated that can go on longer car rides but as he is still healing from surgery for another 6 weeks just move a bit if ride will be longer then an hour. Patient verbalized understanding of information provided by nurse. Patient instructed to call back should symptoms change or worsen. Patient has no other questions or concerns at this time. Patient advised to follow up with office with any additional issues. Carrie Martines RN Spine Poultry Farmer [employer] [facility] Work Phone: 05-14-2025 Miscellaneous Notes Neuro SPINE CARE COORDINATION QUICK NOTE Returned call to patient to discuss questions. I relayed information as per Drew Duarte. I stated that ok to ride his riding mower as well as his motorcycle try in short bursts of time to see how he is feeling. If having pain or feeling anything wait a few days and then can try again. I also stated that can go on longer car rides but as he is still healing from surgery for another 6 weeks just move a bit if ride will be longer then an hour. Patient verbalized understanding of information provided by nurse. Patient instructed to call back should symptoms change or worsen. Patient has no other questions or concerns at this time. Patient advised to follow up with office with any additional issues. Carrie Martines RN Spine Poultry Farmer [employer] Pt called in stated that he did just do a virtual but needed some clarification How long can car rides be When and how long can he be on a motorcycle When can he do a riding law mower, and for how long. documented in this encounter [facility] [place] 05-12-2025 Telephone encounter Note Pt called in stated that he did just do a virtual but needed some clarification How long can car rides be When and how long can he be on a motorcycle When can he do a riding law mower, and for how long. ANNT [facility] [place] 05-12-2025 History of Present illness Narrative Images from the original note were not included. SPINE SURGERY FOLLOW UP This is a virtual visit using [employer] Video Visit. It required patient-provider interaction for the medical decision making as documented below. I have communicated my name and active licensure. The patient's identity and physical location were verified at the time of this visit. Either the patient or their legal customer engagement representative has been informed of the risks and benefits of -- and alternatives to -- treatment through a remote evaluation and consents to proceed with the evaluation remotely. SERVICE DATE: 05/12/2025 SURGERY DATE: 03/30/25 Procedure(s): 1. Revision decompression L4-5, bilateral L4/5 facetectomies 2. L4-5 combined transforaminal interbody fusion and posterior lateral fusion-placement of biomechanical cage mononsegmental instrumentation at L4/5 3. Use of local autograft 4. Use of I factor Regan Green is seen for 6 week post operative follow up. Current symptoms: Kenneth Green is a 75-year-old male presenting for follow-up after recent back surgery. Kenneth reports complete resolution of preoperative stabbing back pain, which previously was severe enough to nearly incapacitate him. He now experiences only mild soreness and stiffness in the mornings, which improves with movement. He describes the residual pain as similar to a toothache that dissipates with activity. He has been walking at least a mile daily since three weeks post-surgery and is gradually increasing his distance to two miles. He continues to experience paresthesia in the right calf and foot, described as pins and needles and a sensation of walking on a wet sponge when barefoot. These symptoms were present before surgery and persist postoperatively. He is currently taking gabapentin for these symptoms and inquires about the potential benefits of foot massage. Incision: Denies incisional drainage, fever, chills. Activity: Walking 1-2 miles per day Regular BM: Yes Regular Urination: Yes Current Medication: Flexeril and Gabapentin Do you need any refills on pain medication? No PAIN EVALUATION 05/08/2025 0911 Pain Level: 4 Pain Location: Back-Lower Description: Sore Duration Amount of Time: 8 Duration Units: Hours Frequency: Continuous Intervention/Comfort measure: Medication;Cold Patient Entered Questionnaires 01/03/2025 03/17/2025 04/04/2025 Spine Questions Pain Location: Lower back Lower back Lower back Symptoms from neck/cervical spine: Yes No No Employment Status: Retired 01/03/2025 Neck Questionnaires Benzel Modified VJ Score 14 (Moderate Myelopathy Symptoms) PROMIS Score Percentiles 11/18/2024 01/03/2025 03/17/2025 Physical Health Physical Function Percentile 5 8 12 Sleep Percentile 18* 16* 27* Fatigue Percentile 50 27* 46 Pain Interference Percentile 4 5 4 11/18/2024 01/03/2025 03/17/2025 PROMIS SOCIAL ROLE SCORE Social Role Satisfaction Percentile 31 16* 24* 02/08/2017 11/18/2024 03/14/2025 PROMIS Global Health Scale Physical Health Percentile 31 15 Mental Health Percentile 63 53 34 Patient-reported Percentiles provide an indication of how the patient's score ranks in relation to the general population. Higher percentile rankings indicate better function/quality of life. 50th percentile is the average of the general population and indicates half of respondents had a worse score. Depression Screenin11/18/2024 01/03/2025 03/17/2025 PHQ-9 Score 5 3 2 11/18/2024 01/03/2025 03/17/2025 PHQ-9 Self-harm Question Question 9 Not at all Not at all Not at all PHQ-9 Self-Harm (Item 9) response options: 0 Not at all 1 Several days 2 More than half the days 3 Nearly every day PHQ-9 Levels: 0-4 No to mild depression 5-9 Mild depression 10-14 Moderate depression 15-19 Moderately severe depression 20-27 Severe depression PHYSICAL EXAM: GENERAL APPEARANCE: Well nourished, well developed, and no apparent distress. NEURO PSYCH: Patient oriented to person, place, and time. Mood pleasant. Benign affect. WOUND ASSESSMENT: Incision healing, No drainage DATA REVIEW [facility] records independently reviewed Images independently reviewed with the patient ASSESSMENT/PLAN (Z98.1) S/P lumbar fusion (primary encounter diagnosis) (R20.0, R20.2) Numbness and tingling (G89.18) Acute post-operative pain Patient is 6 weeks S/P 03/30/2025: revision L4-5 decompression, L4-5 TLIF and is doing well. No signs or symptoms of infection, 1. S/P lumbar fusion (Z98.1) - Significant improvement in stabbing back pain post-surgery; no remnants of severe pre-operative pain. - Experiencing morning stiffness and soreness, which improves with activity. - Cleared for gradual increase in physical activity, including bending, twisting, core strengthening, and back strengthening exercises. - Advised to gradually increase lifting capacity, not exceeding 30 pounds until 3 months post-op. - Cleared for stationary biking and swimming; recommended starting with low intensity and gradually increasing duration and intensity. - Will mail exercise regimen to patient. - Scheduled follow-up in 7 weeks on June 29 at 08:20 to assess progress and discuss further management. - Plan to obtain imaging at 6 months and 12 months post-op to monitor fusion progress. 2. Numbness and tingling (R20.0) - Persistent paresthesia in right calf and foot, described as pins and needles and walking on a wet sponge. - Educated patient on the slow healing process of nerves, which can take up to 18 months. - Advised continuation of gabapentin for the next 6-8 weeks to manage symptoms as activity level increases. - Discussed potential benefits of foot massage and acupuncture, though effectiveness is variable. - Will reassess the need for gabapentin and potential weaning at the next follow-up. 3. Acute post-operative pain (G89.18) - Managed with diclofenac and cyclobenzaprine; patient reports better relief with cyclobenzaprine compared to methocarbamol. - Advised continuation of current medications. - No concerns with surgical incision; healing well. - Educated patient on normal post-operative soreness and stiffness, which should improve over time. Follow-Up: 06/29/25 8:20 am [facility] Neurosurgery On-call (after hours or weekend) [phone] or [phone], ask for neurosurgery on-call SIGNATURE: Drew Leija PA-C PATIENT NAME: Regan Green DATE: May 12, 2025 TIME: 10:25 AM PAGER: documented in this encounter [facility] [place] 05-12-2025 Note HNO ID: [id number] Author: DREW LEIJA PA-C Service: ? Author Type: Physician Physician Intensivist Type: Progress Notes Filed: 05/12/2025 11:42 Note Text: SPINE SURGERY FOLLOW UP This is a virtual visit using [employer] Video Visit. It required patient-provider interaction for the medical decision making as documented below. I have communicated my name and active licensure. The patient's identity and physical location were verified at the time of this visit. Either the patient or their legal customer engagement representative has been informed of the risks and benefits of -- and alternatives to -- treatment through a remote evaluation and consents to proceed with the evaluation remotely. SERVICE DATE: 05/12/2025 SURGERY DATE: 03/30/25 Procedure(s): 1. Revision decompression L4-5, bilateral L4/5 facetectomies 2. L4-5 combined transforaminal interbody fusion and posterior lateral fusion-placement of biomechanical cage mononsegmental instrumentation at L4/5 3. Use of local autograft 4. Use of I factor Regan Green is seen for 6 week post operative follow up. Current symptoms: Kenneth Green is a 75-year-old male presenting for follow-up after recent back surgery. Kenneth reports complete resolution of preoperative stabbing back pain, which previously was severe enough to nearly incapacitate him. He now experiences only mild soreness and stiffness in the mornings, which improves with movement. He describes the residual pain as similar to a toothache that dissipates with activity. He has been walking at least a mile daily since three weeks post-surgery and is gradually increasing his distance to two miles. He continues to experience paresthesia in the right calf and foot, described as pins and needles and a sensation of walking on a wet sponge when barefoot. These symptoms were present before surgery and persist postoperatively. He is currently taking gabapentin for these symptoms and inquires about the potential benefits of foot massage. Incision: Denies incisional drainage, fever, chills. Activity: Walking 1-2 miles per day Regular BM: Yes Regular Urination: Yes Current Medication: Flexeril and Gabapentin Do you need any refills on pain medication? No PAIN EVALUATION 05/08/2025 0911 Pain Level: 4 Pain Location: Back-Lower Description: Sore Duration Amount of Time: 8 Duration Units: Hours Frequency: Continuous Intervention/Comfort measure: Medication;Cold Patient Entered Questionnaires 01/03/2025 03/17/2025 04/04/2025 Spine Questions Pain Location: Lower back Lower back Lower back Symptoms from neck/cervical spine: Yes No No Employment Status: Retired 01/03/2025 Neck Questionnaires Benzel Modified VJ Score 14 (Moderate Myelopathy Symptoms) PROMIS Score Percentiles 11/18/2024 01/03/2025 03/17/2025 Physical Health Physical Function Percentile 5 8 12 Sleep Percentile 18* 16* 27* Fatigue Percentile 50 27* 46 Pain Interference Percentile 4 5 4 11/18/2024 01/03/2025 03/17/2025 PROMIS SOCIAL ROLE SCORE Social Role Satisfaction Percentile 31 16* 24* 02/08/2017 11/18/2024 03/14/2025 PROMIS Global Health Scale Physical Health Percentile 31 15 Mental Health Percentile 63 53 34 Patient-reported Percentiles provide an indication of how the patient's score ranks in relation to the general population. Higher percentile rankings indicate better function/quality of life. 50th percentile is the average of the general population and indicates half of respondents had a worse score. Depression Screenin11/18/2024 01/03/2025 03/17/2025 PHQ-9 Score 5 3 2 11/18/2024 01/03/2025 03/17/2025 PHQ-9 Self-harm Question Question 9 Not at all Not at all Not at all PHQ-9 Self-Harm (Item 9) response options: 0 Not at all 1 Several days 2 More than half the days 3 Nearly every day PHQ-9 Levels: 0-4 No to mild depression 5-9 Mild depression 10-14 Moderate depression 15-19 Moderately severe depression 20-27 Severe depression PHYSICAL EXAM: GENERAL APPEARANCE: Well nourished, well developed, and no apparent distress. NEURO PSYCH: Patient oriented to person, place, and time. Mood pleasant. Benign affect. WOUND ASSESSMENT: Incision healing, No drainage DATA REVIEW [facility] records independently reviewed Images independently reviewed with the patient ASSESSMENT/PLAN (Z98.1) S/P lumbar fusion (primary encounter diagnosis) (R20.0, R20.2) Numbness and tingling (G89.18) Acute post-operative pain Patient is 6 weeks S/P 03/30/2025: revision L4-5 decompression, L4-5 TLIF and is doing well. No signs or symptoms of infection, 1. S/P lumbar fusion (Z98.1) - Significant improvement in stabbing back pain post-surgery; no remnants of severe pre-operative pain. - Experiencing morning stiffness and soreness, which improves with activity. - Cleared for gradual increase in physical activity, including bending, twisting, core strengthening, and back strengthening exercises. (more content not included)... [facility] 05-05-2025 Telephone encounter Note Date of Surgery: 03/30/2025 Physician: Johnathan Kraus Procedure: revision L4-5 decompression, L4-5 TLIF NOV: 05/12/25 w/ LIANE Called pt to review message. The patient called the office and shared that the surgery is not being paid. He said it should not be billed to a workman's comp claim, instead it should go to his insurance, [employer], and his Medicare. There are other injections which he gets annually that should to go [facility], but not this surgery. He shared that he previously made sure that the procedure was approved before surgery, but he does not have any documentation for this. [facility] to get a status update. Update shared w/ LIANE and [facility]. [facility] 05-05-2025 Miscellaneous Notes Date of Surgery: 03/30/2025 Physician: Johnathan Kraus Procedure: revision L4-5 decompression, L4-5 TLIF NOV: 05/12/25 w/ LIANE Called pt to review message. The patient called the office and shared that the surgery is not being paid. He said it should not be billed to a workman's comp claim, instead it should go to his insurance, [employer], and his Medicare. There are other injections which he gets annually that should to go [facility], but not this surgery. He shared that he previously made sure that the procedure was approved before surgery, but he does not have any documentation for this. [facility] and [facility] to get a status update. Update shared w/ EA and BRETT, RNNEMESIO. Pt stated that he did get the message for Drew Leija for 05/12 at 10:40. He was stating that he is having problems getting [facility] paid, he did say there was an issue where it went over to workmen's comp when it should have been paid by Medicare and [employer]. He would like a call back. documented in this encounter [facility] 05-05-2025 Telephone encounter Note Pt stated that he did get the message for Drew Leija for 05/12 at 10:40. He was stating that he is having problems getting [facility] paid, he did say there was an issue where it went over to workmen's comp when it should have been paid by Medicare and [employer]. He would like a call back. [facility] 04-20-2025 Telephone encounter Note Neuro SPINE CARE COORDINATION QUICK NOTE Returned call to patient to discuss questions. We discussed his gabapentin and robaxin. Patient has been getting gabapentin prescribed per PM and take 600mg TID. I explained that is not a medication that you can just quit taking. I stated it has to be weaned slowly and recommended talking with PM if feeling like he can come off. Patient also stated that he has not been taking the robaxin as he did not like how it made him feel. Prior to surgery was taking flexeril 10mg TID per PM and patient has gone back to that. I stated that is ok as long as not taking both flexeril and robaxin. I also discuss returning to driving and being off pain medications. Patient was worried about twisting to much and seeing blind spot. I explained that twisting to see blind spot is safe it would just depend on how he is feeling. I recommended a short practice run with someone else in the car incase it is to painful. Patient verbalized understanding of information provided by nurse. Patient instructed to call back should symptoms change or worsen. Patient has no other questions or concerns at this time. Patient advised to follow up with office with any additional issues. Carrie Martines RN Spine P[employer] [facility] 04-20-2025 Miscellaneous Notes Neuro SPINE CARE COORDINATION QUICK NOTE Returned call to patient to discuss questions. We discussed his gabapentin and robaxin. Patient has been getting gabapentin prescribed per PM and take 600mg TID. I explained that is not a medication that you can just quit taking. I stated it has to be weaned slowly and recommended talking with PM if feeling like he can come off. Patient also stated that he has not been taking the robaxin as he did not like how it made him feel. Prior to surgery was taking flexeril 10mg TID per PM and patient has gone back to that. I stated that is ok as long as not taking both flexeril and robaxin. I also discuss returning to driving and being off pain medications. Patient was worried about twisting to much and seeing blind spot. I explained that twisting to see blind spot is safe it would just depend on how he is feeling. I recommended a short practice run with someone else in the car incase it is to painful. Patient verbalized understanding of information provided by nurse. Patient instructed to call back should symptoms change or worsen. Patient has no other questions or concerns at this time. Patient advised to follow up with office with any additional issues. Carrie Martines RN Spine P[employer] Call received for Johnathan Kraus MD regarding Regan Green. Caller: self Patient Identified by Name and : Regan Green 1950 Reason for Call: General - Pt called to see if he should still take gabapentin and methocarbamol. Also would like to know when he could go back driving after surgery Is there any additional information the provider should know? No Last Office Visit: 04/15/2025 Next scheduled appointment: Visit date not found Best number to reach caller: [phone] Best time to reach caller: Any Is it OK to leave a detailed voice message? Yes Kerline Deshpande documented in this encounter [facility] 04-19-2025 Telephone encounter Note Call received for Johnathan Kraus MD regarding Regan Green. Caller: self Patient Identified by Name and : Regan Green 1950 Reason for Call: General - Pt called to see if he should still take gabapentin and methocarbamol. Also would like to know when he could go back driving after surgery Is there any additional information the provider should know? No Last Office Visit: 04/15/2025 Next scheduled appointment: Visit date not found Best number to reach caller: [phone] Best time to reach caller: Any Is it OK to leave a detailed voice message? Yes Kerline Deshpande [facility] 04-19-2025 Telephone encounter Note Neuro SPINE CARE COORDINATION QUICK NOTE Called patient to discuss message and review with Drew Pa-C message. I stated that patient has had follow up and abx regarding UTI. I stated to continue with urology and PCP for continued follow up. Patient did not answer but a detailed message was left on identified line. Carrie Martines RN Spine P[employer] [facility] 04-19-2025 Miscellaneous Notes Neuro SPINE CARE COORDINATION QUICK NOTE Called patient to discuss message and review with Drew Pa-C message. I stated that patient has had follow up and abx regarding UTI. I stated to continue with urology and PCP for continued follow up. Patient did not answer but a detailed message was left on identified line. Carrie Martines RN Spine P[employer] Pt called and stated he had appts for the blood in his urine and the UTI. Pt stated the blood in urine was probably from them pulling out the catheter and it wasn't fully collapsed. Pt stated they gave him a Solvent drug which he was allergic to and broke out in hives. He is now on another drug. Pt stated he won't get any of the results for another month [phone] Neuro SPINE CARE COORDINATION QUICK NOTE Returned call to patient to discuss update. See other encounter as patient had been having blood in his urine. Patient scheduled with urology on 04/14 but saw his PCP Saturday. Patient urine was tested and came back positive for E. Coli. Patient now on 7 days of Bactrim and then will follow up after abx. Will update surgical team as to plan and will let patient know if any recommendations. Patient verbalized understanding of information provided by nurse. Patient instructed to call back should symptoms change or worsen. Patient has no other questions or concerns at this time. Patient advised to follow up with office with any additional issues. aCrrie Martines subsystems engineer Poultry Farmer [employer] Call received for Johnathan Kraus MD regarding Regan Green. Caller: self Patient Identified by Name and : Regan Green 1950 Reason for Call: Patient is calling to update Jamison Kraus that he was diagose with Ecoli Is there any additional information the provider should know? No Last Office Visit: 04/06/2025 Next scheduled appointment: Visit date not found Best number to reach caller: [phone] Best time to reach caller: anytime Is it OK to leave a detailed voice message? Yes Michelle Krause documented in this encounter [facility] 04-16-2025 Telephone encounter Note Pt called and stated he had appts for the blood in his urine and the UTI. Pt stated the blood in urine was probably from them pulling out the catheter and it wasn't fully collapsed. Pt stated they gave him a Solvent drug which he was allergic to and broke out in hives. He is now on another drug. Pt stated he won't get any of the results for another month [phone] [facility] 04-15-2025 Miscellaneous Notes Per Yany at Dr Kraus office there are 23 confirmed adri in his post op xray. Thank you for confirming that. documented in this encounter [facility] 04-15-2025 Telephone encounter Note Per Yany at Dr Kraus office there are 23 confirmed adri in his post op xray. [facility] 04-15-2025 Telephone encounter Note Thank you for confirming that. [facility] 04-15-2025 Telephone encounter Note Neuro SPINE CARE COORDINATION QUICK NOTE I spoke with Drew Duarte regarding this. Based on post operative xray there was 23 adri noted. Called provided number to discussed. Was asked to leave a message on patient information protected line. I verified who and where I was calling from. I provided patient name and bday and confirmed 23 adri. I provided office call back if has any other questions. Patient verbalized understanding of information provided by nurse. Patient instructed to call back should symptoms change or worsen. Patient has no other questions or concerns at this time. Patient advised to follow up with office with any additional issues. Carrie Martines RN Spine P[employer] [facility] 04-15-2025 Miscellaneous Notes Neuro SPINE CARE COORDINATION QUICK NOTE I spoke with Drew Duarte regarding this. Based on post operative xray there was 23 adri noted. Called provided number to discussed. Was asked to leave a message on patient information protected line. I verified who and where I was calling from. I provided patient name and bday and confirmed 23 adri. I provided office call back if has any other questions. Patient verbalized understanding of information provided by nurse. Patient instructed to call back should symptoms change or worsen. Patient has no other questions or concerns at this time. Patient advised to follow up with office with any additional issues. Carrie Martines RN Spine Poultry Farmer [employer] Rec'd call from Jodi at PCP's office - Dr Mcdaniel; states that their office removed patient's adri yesterday (total of 23); states that she needs confirmation of how many adri were placed; not mentioned in Op note; requesting call back w/this information; ph. [phone] Opt 1 (ask to speak w/Jodi) documented in this encounter [facility] 04-15-2025 Telephone encounter Note Rec'd call from Jodi at PCP's office - Dr Mcdaniel; states that their office removed patient's adri yesterday (total of 23); states that she needs confirmation of how many adri were placed; not mentioned in Op note; requesting call back w/this information; ph. [phone] Opt 1 (ask to speak w/Jodi) [facility] 04-14-2025 Evaluation + Plan note Associated Problem(s): Gross hematuria After I get the fish/ cytology results back, I will check to see if Dr. Heller wants anything further. It sounds like it began as trauma following cath removal. Bleeding was initially urethral. If he develops any further hematuria, he will call us right away. Assuming Dr. Heller wants nothing further, we will schedule him for a follow-up in 6 months to recheck UA [facility] 04-14-2025 Miscellaneous Notes Associated Problem(s): Gross hematuria After I get the fish/ cytology results back, I will check to see if Dr. Heller wants anything further. It sounds like it began as trauma following cath removal. Bleeding was initially urethral. If he develops any further hematuria, he will call us right away. Assuming Dr. Heller wants nothing further, we will schedule him for a follow-up in 6 months to recheck UA Associated Problem(s): Adenocarcinoma of prostate (CMS-HCC) I will notify him of the results through MyChart documented in this encounter [facility] 04-14-2025 Evaluation + Plan note Associated Problem(s): Adenocarcinoma of prostate (CMS-HCC) I will notify him of the results through MyChart [facility] 04-14-2025 History of Present illness Narrative Images from the original note were not included. [address] [place] [address] [facility] [id number] Patient: Regan Green Date of : 1950 Encounter Date: 04/14/2025 History of Present Illness: The patient is a 75 y.o. male, an established patient, and is here for blood in the urine. Please see his history below. He had surgery on his spine 03/30. He reports that after the catheter was removed following the procedure he had significant urethral bleeding. There was a stinging sensation when the catheter was removed. He was discharged home with the catheter on 04/02. He reports that he had intermittent hematuria the whole time. He saw his PCP and C&S 04/05/2025 came back positive for 10-50,000 E coli. It sounds like he was started on Bactrim but had a reaction and was switched to Augmentin. He no longer has any gross hematuria. He never had any gross hematuria until the catheter was removed. He denies any dysuria. His stream is fine He has a history of smoking for about 10 years in the 1970s. Summary of old records: Notes from Dr. Heller 04/28/2024 The patient is a 74 y.o. male, an established patient, and is here for He was diagnosed with adenocarcinoma prostate [place] 7 with 2 of 12 cores positive in 2017. He underwent open radical prostatectomy with bilateral pelvic lymph node dissection at [facility] in 2017. Final path T2N0. PSA was undetectable. He had his PSA drawn today which is still pending. He uses 1 liner per day. Urinary incontinence worse if he consumes beer. Otherwise this remains stable. No hematuria. No erections. . Urinalysis today: Recent Labs 04/14/25 1442 EXTPOCURBS Negative EXTPOCUKET Negative EXTPOCUPRO Negative EXTPOCUNIT Negative EXTPOCUBLD Negative EXTPOCUPH 5.0 EXTPOCULEE Negative Last BUN and creatinine: Lab Results Component Value Date BUN 15 08/25/2024 Lab Results Component Value Date CREATININE 0.68 08/25/2024 Last PSA: Lab Results Component Value Date PSA <0.01 04/28/2024 PSA <0.01 04/16/2023 PSA 8.38 09/06/2016 No results found for: PROSTATICSP Past Medical, Family, and Social History Update: The following portions of the patient's history were reviewed and updated as appropriate: allergies, current medications, past family history, past medical history, past social history, past surgical history and problem list. Past Medical History: Diagnosis Date [facility] 2017 prostatectomy Diverticulitis Diverticulosis Fecal impaction ([place]) Inflammation of sacroiliac joint 04/20/1996 Knee pain Low back pain Lumbar disc disorder Neurogenic claudication 12/17/2023 Osteoarthritis SBO (small bowel obstruction) ([place]) 10/04/2023 Shingles UTI (urinary tract infection) 05/08/2017 Varicose veins of right lower extremity with pain 02/08/2020 Visual impairment 12/20/2023 Past Surgical History: Procedure Laterality Date ABDOMINAL ADHESION SURGERY BACK SURGERY 03/30/2025 Fused L4-L5 COLONOSCOPY COLONOSCOPY N/A 03/25/2023 Performed by Johnathan Campbell DO at [facility] HERNIA REPAIR Left inguinal HIP SURGERY Left [...] Current Outpatient Medications Medication Sig Dispense Refill calcium carbonate-vitamin D3 (OSCAL 500 + D) 500 mg(1,250mg) -200 units per tablet Take 1 tablet by mouth in the morning and 1 tablet in the evening. Take with meals. ciprofloxacin HCl (CIPRO) 500 mg tablet Take 1 tablet (500 mg total) by mouth in the morning and 1 tablet (500 mg total) before bedtime. Do all this for 7 days. 14 tablet 0 cyclobenzaprine (FLEXERIL) 10 mg tablet Take 1 tablet (10 mg total) by mouth 3 (three) times a day as needed for muscle spasms. This is an 10 day supply 30 tablet 2 diclofenac (VOLTAREN) 75 mg EC tablet gabapentin (NEURONTIN) 600 mg tablet Take 0.5 tablets (300 mg total) by mouth in the morning. glucosamine/chondr piña A sod (OSTEO BI-FLEX ORAL) Take 1 tablet by mouth in the morning. mv-min/folic/K1/lycopen/lutein (CENTRUM SILVER MEN ORAL) Take 1 tablet by mouth in the morning. oxyCODONE-acetaminophen (PERCOCET) 5-325 mg per tablet Take 1 tablet by mouth in the evening. 1 to 2 tablets daily. lidocaine (SALONPAS) 4 % Place 1 patch on the skin in the morning. (Patient not taking: Reported on 04/14/2025) methocarbamoL (ROBAXIN) 750 mg tablet Take 1 tablet (750 mg total) by mouth 3 (three) times a day. (Patient not taking: Reported on 04/14/2025) No current facility-administered medications for this visit. (All medications reviewed and updated by provider since last office visit or hospitalization) Allergies: Sulfa (sulfonamide antibiotics) Tobacco History: Social History Tobacco Use Smoking Status Former Types: Cigarettes Smokeless Tobacco Never (If patient a smoker, smoking cessation counseling offered) Social History: Social History Substance and Sexual Activity Alcohol Use Yes Alcohol/week: 3.0 standard drinks of alcohol Types: 3 Drinks containing 0.5 oz of alcohol per week Comment: socially Review of Systems: General: Negative for chills and fever. Cardiovascular: Negative for chest pain and shortness of breath. Gastrointestinal: Negative for constipation, diarrhea, nausea, and vomitting. -per HPI Physical Exam: Ht 182.9 cm (6') Wt 97.1 kg (214 lb) BMI 29.02 kg/m Constitutional: He appears well-developed. No distress. Pulmonary/Chest: Effort normal. No respiratory distress. Neurological: He is alert and oriented for age. Gait normal. Nursing note and vitals reviewed. Assessment and Plan: Kenneth was seen today for blood in urine. Diagnoses and all orders for this visit: Gross hematuria - Urovysion for bladder - Cytology non-gynecologic - POCT Urinalysis Auto, W/O Microscopy Adenocarcinoma of prostate ([facility]) - Urovysion for bladder - Cytology non-gynecologic - Prostatic specific antigen, diagnostic; Future Problem List Genitourinary Adenocarcinoma of prostate ([facility]) Overview T1c adenocarcinoma prostate [place] 3 + 3 = 6 5% and [...] waiting. Given the Prolaris score and the [place] 7 I again told him that active [...] prostatectomy with bilateral pelvic lymph node dissection [facility]. Final pathology T2 N0 04/16/23: psa today. Recheck annually. 04/28/24: PSA pending today. Assuming his PSA today remains undetectable he should continue to get his PSA checked annually. He is more than 5 years out from surgery. He was planning to have his PSA drawn annually with his wellness exam. If it becomes detectable or urinary symptoms worsen he will return 04/14/25: due for PSA at the end of the month Current Assessment & Plan I will notify him of the results through [facility] Relevant Orders Urovysion for bladder Cytology non-gynecologic Prostatic specific antigen, diagnostic Gross hematuria - Primary Overview 04/14/25: gross hematuria. It began as urethral bleeding following Croft catheter removal after his spine surgery. Urine culture 04/05/2025 came back positive for E coli. Follow-up UA today is negative. We will check fish/cytology Current Assessment & Plan After I get the fish/ cytology results back, I will check to see if Dr. Heller wants anything further. It sounds like it began as trauma following cath removal. Bleeding was initially urethral. If he develops any further hematuria, he will call us right away. Assuming Dr. Heller wants nothing further, we will schedule him for a follow-up in 6 months to recheck UA Relevant Orders Urovysion for bladder Cytology non-gynecologic POCT Urinalysis Auto, W/O Microscopy (Completed) Follow-up: Dr. Heller in 6 months. PSA within a month TERI MOORE This note was created with the assistance of a speech recognition program. While intending to generate a timely document that accurately reflects the content of the visit, no guarantee can be provided that every grammatical or spelling mistake has been or will be identified or corrected. Thank you for your understanding. TERI Moore 04/14/25 [id number] [facility] History of Present illness Narrative Associated Order(s): $ Suture removal Post-Procedure Diagnose(s): Encounter for staple removal $ Suture removal Date/Time: 04/14/2025 2:23 PM Performed by: Ovi Mcdaniel MD Authorized by: Ovi Mcdaniel MD Location: Lower back. Wound Appearance: clean, warm and pink [place] Removed: 25 Post-procedure assessment: cleaned with alcohol and left to dry. Patient tolerance: patient tolerated the procedure well with no immediate complications [address] [place] [address] Patient: Regan Green Date of : 1950 Encounter Date: 04/14/2025 History of Present Illness: The patient is a 75 y.o. male, an established patient, and is here for Chief Complaint Patient presents with Suture / Staple Removal . Pt had L4-L5 decompression surgery in late March and is here today for suture removal. He developed hematuria after removal of croft catheter and urine cltures were also found to be positive for E coli. He was started on bactrim but he developed a rash. The bactrim was discontinued and ciprofloxacin was started. No further episodes of hematuria The rash is resolved now. All other systems negative on review Suture / Staple Removal Problem List Items Addressed This Visit None Visit Diagnoses Encounter for staple removal - Primary Relevant Orders $ Suture removal Lumbar radiculopathy, chronic Status post lumbar spine operative procedure for decompression of spinal cord Acute bacterial simple cystitis Past Medical, Family, and Social History Update: The following portions of the patient's history were reviewed and updated as appropriate: allergies, current medications, past family history, past medical history, past social history, past surgical history and problem list. Past Medical History: Diagnosis Date Cancer of prostate ([place]) 2017 prostatectomy Diverticulitis Diverticulosis Fecal impaction ([place]) Inflammation of sacroiliac joint 04/20/1996 Knee pain Low back pain Lumbar disc disorder Neurogenic claudication 12/17/2023 Osteoarthritis SBO (small bowel obstruction) ([place]) 10/04/2023 Shingles UTI (urinary tract infection) 05/08/2017 Varicose veins of right lower extremity with pain 02/08/2020 Visual impairment 12/20/2023 Past Surgical History: Procedure Laterality Date ABDOMINAL ADHESION SURGERY BACK SURGERY 03/30/2025 Fused L4-L5 COLONOSCOPY COLONOSCOPY N/A 03/25/2023 Performed by Johnathan Campbell DO at [facility] HERNIA REPAIR Left inguinal HIP SURGERY Left JOINT REPLACEMENT LAMINECTOMY LUMBAR MULTI LEVEL / L2-L5 N/A 12/25/2023 Performed by Mayco Nolen MD at [facility] PROSTATE BIOPSY PROSTATECTOMY REVISION TOTAL KNEE ARTHROPLASTY Right 2012 due to swelling TOTAL KNEE ARTHROPLASTY Right 2012 Current Outpatient Medications Medication Sig Dispense Refill calcium carbonate-vitamin D3 (OSCAL 500 + D) 500 mg(1,250mg) -200 units per tablet Take 1 tablet by mouth in the morning and 1 tablet in the evening. Take with meals. ciprofloxacin HCl (CIPRO) 500 mg tablet Take 1 tablet (500 mg total) by mouth in the morning and 1 tablet (500 mg total) before bedtime. Do all this for 7 days. 14 tablet 0 cyclobenzaprine (FLEXERIL) 10 mg tablet Take 1 tablet (10 mg total) by mouth 3 (three) times a day as needed for muscle spasms. This is an 10 day supply 30 tablet 2 diclofenac (VOLTAREN) 75 mg EC tablet gabapentin (NEURONTIN) 600 mg tablet Take 0.5 tablets (300 mg total) by mouth in the morning. glucosamine/chondr piña A sod (OSTEO BI-FLEX ORAL) Take 1 tablet by mouth in the morning. lidocaine (SALONPAS) 4 % Place 1 patch on the skin in the morning. (Patient not taking: Reported on 04/14/2025) methocarbamoL (ROBAXIN) 750 mg tablet Take 1 tablet (750 mg total) by mouth 3 (three) times a day. (Patient not taking: Reported on 04/14/2025) mv-min/folic/K1/lycopen/lutein (CENTRUM SILVER MEN ORAL) Take 1 tablet by mouth in the morning. oxyCODONE-acetaminophen (PERCOCET) 5-325 mg per tablet Take 1 tablet by mouth in the evening. 1 to 2 tablets daily. No current facility-administered medications for this visit. (All medications reviewed and updated by provider since last office visit or hospitalization) Allergies: Sulfa (sulfonamide antibiotics) Tobacco History: Social History Tobacco Use Smoking Status Former Types: Cigarettes Smokeless Tobacco Never (If patient a smoker, smoking cessation counseling offered) Social History: Social History Substance and Sexual Activity Alcohol Use Yes Alcohol/week: 3.0 standard drinks of alcohol Types: 3 Drinks containing 0.5 oz of alcohol per week Comment: socially Review of Systems: Physical Exam: BP 138/78 Pulse 83 Resp 18 Wt 97.1 kg (214 lb) SpO2 97% BMI 29.02 kg/m Physical Exam Constitutional: General: He is not in acute distress. Appearance: He is well-developed. HENT: Head: Normocephalic. Right Ear: External ear normal. Left Ear: External ear normal. Nose: Nose normal. Eyes: Conjunctiva/sclera: Conjunctivae normal. Pupils: Pupils are equal, round, and reactive to light. Cardiovascular: Rate and Rhythm: Normal rate and regular rhythm. Heart sounds: Normal heart sounds. No murmur heard. Pulmonary: Effort: Pulmonary effort is normal. Breath sounds: Normal breath sounds. No wheezing. Abdominal: General: Bowel sounds are normal. Palpations: Abdomen is soft. There is no mass. Tenderness: There is no abdominal tenderness. Musculoskeletal: General: Normal range of motion. Cervical back: Normal range of motion. Comments: Surgical scar healing well. no poor purulence redness or tenderness. Adri in place Lymphadenopathy: Cervical: No cervical adenopathy. Skin: General: Skin is warm and dry. Findings: No rash. Neurological: Mental Status: He is alert. Cranial Nerves: No cranial nerve deficit. Coordination: Coordination normal. Psychiatric: Behavior: Behavior normal. Lab Results Component Value Date GLU 84 08/25/2024 CALCIUM 9.3 08/25/2024 SODIUM 142 08/25/2024 K 5.0 08/25/2024 CO2 27 08/25/2024 BUN 15 08/25/2024 CREATININE 0.68 08/25/2024 Lab Results Component Value Date WBC 6.2 08/25/2024 HGB 15.0 08/25/2024 HCT 44.7 08/25/2024 MCV 96 08/25/2024 PLT 246 08/25/2024 No results found for: HGBA1C Assessment and Plan: Kenneth was seen today for suture / staple removal. Diagnoses and all orders for this visit: Encounter for staple removal - $ Suture removal Lumbar radiculopathy, chronic Pain improved significantly post surgery Status post lumbar spine operative procedure for decompression of spinal cord Advised patient to contact his surgeon for when would it be safe to drive. Ciproxin will cover for MRSA as well for surgical wound prophylaxis Acute bacterial simple cystitis Continue ciproxin for E coli UTI. F/U with urology for hematuria. Sulfa drugs added to allergy list. Follow-up: Return for Next scheduled follow up. OVI MCDANIEL MD documented in this encounter [facility] 04-12-2025 Miscellaneous Notes Patient called stated he broke out in a horrible rash over the weekend and he does believe it was from the Bactrim. He stopped the medication. Patient wondering if you want him to take something different. Stop bactrim. Start ciproxin for 7 days. Use benadryl 25 mg OTC as needed for itching Patient aware documented in this encounter [facility] 04-12-2025 Telephone encounter Note Patient called stated he broke out in a horrible rash over the weekend and he does believe it was from the Bactrim. He stopped the medication. Patient wondering if you want him to take something different. [facility] 04-12-2025 Telephone encounter Note Stop bactrim. Start ciproxin for 7 days. Use benadryl 25 mg OTC as needed for itching [facility] 04-12-2025 Telephone encounter Note Patient aware [facility] 04-08-2025 Telephone encounter Note Neuro SPINE CARE COORDINATION QUICK NOTE Returned call to patient to discuss update. See other encounter as patient had been having blood in his urine. Patient scheduled with urology on 04/14 but saw his PCP Saturday. Patient urine was tested and came back positive for E. Coli. Patient now on 7 days of Bactrim and then will follow up after abx. Will update surgical team as to plan and will let patient know if any recommendations. Patient verbalized understanding of information provided by nurse. Patient instructed to call back should symptoms change or worsen. Patient has no other questions or concerns at this time. Patient advised to follow up with office with any additional issues. Carrie Martines subsystems engineer Poultry Farmer [employer] [facility] 04-08-2025 Telephone encounter Note Call received for Johnathan Kraus MD regarding Regan Green. Caller: self Patient Identified by Name and : Regan Green 1950 Reason for Call: Patient is calling to update Jamison Kraus that he was diagose with Ecoli Is there any additional information the provider should know? No Last Office Visit: 04/06/2025 Next scheduled appointment: Visit date not found Best number to reach caller: [phone] Best time to reach caller: anytime Is it OK to leave a detailed voice message? Yes Michelle Krause [facility] 04-06-2025 History of Present illness Narrative Images from the original note were not included. [address] [place] [id number] Patient ID: Regan Green is a 75 y.o. male. SUBJECTIVE: Patient ID: Regan Green is a 75 y.o. male. Patient had L4-L5 decompression revision surgery and was discharged 3 days back. Patient developed gross hematuria immediately after removal of Croft catheter he has continued to have hematuria since then. He has dysuria. Denies any suprapubic tenderness. Denies hesitancy. Denies any fever His back pain is under control with oxycodone and diclofenac. He is not taking gabapentin Blood in Urine Pertinent negatives include no abdominal pain, chills, dysuria, fever or vomiting. The following portions of the patient's history were reviewed and updated as appropriate: allergies, current medications, past family history, past medical history, past social history, past surgical history and problem list. REVIEW OF SYSTEMS: Review of Systems Constitutional: Negative for chills and fever. HENT: Negative for ear pain and sore throat. Eyes: Negative for pain and visual disturbance. Respiratory: Negative for cough and shortness of breath. Cardiovascular: Negative for chest pain and palpitations. Gastrointestinal: Negative for abdominal pain and vomiting. Genitourinary: Positive for hematuria. Negative for dysuria. Musculoskeletal: Positive for back pain. Skin: Negative for color change and rash. Neurological: Negative for seizures and syncope. All other systems reviewed and are negative. PHYSICAL EXAMINATION: Vitals: 04/06/25 1449 BP: 130/86 Pulse: 94 Resp: 18 SpO2: 98% Weight: 94.3 kg (208 lb) Physical Exam Constitutional: General: He is not in acute distress. Appearance: He is well-developed. HENT: Head: Normocephalic. Right Ear: External ear normal. Left Ear: External ear normal. Nose: Nose normal. Eyes: Conjunctiva/sclera: Conjunctivae normal. Pupils: Pupils are equal, round, and reactive to light. Cardiovascular: Rate and Rhythm: Normal rate and regular rhythm. Heart sounds: Normal heart sounds. No murmur heard. Pulmonary: Effort: Pulmonary effort is normal. Breath sounds: Normal breath sounds. No wheezing. Abdominal: General: Bowel sounds are normal. Palpations: Abdomen is soft. There is no mass. Tenderness: There is no abdominal tenderness. Musculoskeletal: General: Normal range of motion. Cervical back: Normal range of motion. Comments: Surgical incision n/c/d. Lymphadenopathy: Cervical: No cervical adenopathy. Skin: General: Skin is warm and dry. Findings: No rash. Neurological: Mental Status: He is alert. Cranial Nerves: No cranial nerve deficit. Coordination: Coordination normal. Psychiatric: Behavior: Behavior normal. Latest Reference Range & Units 04/05/25 17:05 Blood Negative Moderate ! COLOR Yellow, Colorless [place] ! Ketones urine Negative Negative Leukocyte esterase Negative Negative Mucous None Present ! NITRITE Negative Negative Ph urine 5.0 - 8.5 5.5 Protein Negative 30 mg/dL ! Turbidity Clear Cloudy ! Urobilinogen <1.1 eu/dL 4 eu/dL ! Glucose, urine Negative Negative BILIRUBIN (URINE) Negative Moderate ! SPECIFIC GRAVITY 1.003 - 1.035 1.026 !: Data is abnormal ASSESSMENT/PLAN: Kenneth was seen today for blood in urine. Diagnoses and all orders for this visit: Gross hematuria Likely related to trauma. Patient advised to see his urologist as soon as possible. Patient counseled about red flags of urinary retention. Patient advised to go to the ER if he develops symptoms of retention. Adenocarcinoma of prostate (CMS-HCC) Resolved. Status post prostatectomy. Radiculopathy, lumbar region Status post decompression Surgery. Patient is under care of pain management services. He will start physical therapy once allowed by his surgeon. Surgical adri removal on day 14 Follow up: Annual visit. [facility] Note Neuro SPINE CARE COORDINATION POST OP FOLLOW UP VANDA call completed by RN CC. [See 04/06 nurse visit] Vibha Hurtado RN [facility] Work Phone: 04-06-2025 Miscellaneous Notes Neuro SPINE CARE COORDINATION POST OP FOLLOW UP VANDA call completed by RN CC. [See 04/06 nurse visit] Vibha Hurtado RN documented in this encounter [facility] 04-06-2025 Note HNO ID: [id number] Author: CARRIE MARTINES RN Service: ? Author Type: Registered Nurse Type: Progress Notes Filed: 04/06/2025 11:28 Note Text: Neuro SPINE CARE COORDINATION POST OP FOLLOW UP Spoke to patient who is 7 days post 03/30/2025: revision L4-5 decompression, L4-5 TLIF . Pain is well controlled with pain meds Tylenol and muscle relaxer Robaxin Incisions is clean, dry, and healing well Ambulatory/Activity: walking well unassisted Additional patient concerns: voiding difficulty (patient seeing PCP today at 3) Follow up: V V with ESTEFANY 05/12 Daily Plan of Care Visit during inpatient stay: yes Plan of Care Visit helpful: yes Additional Notes: Patient overall surgical healing feels that he is doing well. Controlling pain with tylenol and robaxin. Patient has not needed the oxycodone. Patient walking and moving slowly but able to do so. Patient having urination issues that were addressed yesterday /2 with follow up today 04/06. Patient denies any red flag symptoms and denies need for any refills. Patient states incision looks good with no concerns. Will update office with any needs. Carrie Martines RN [facility] 04-06-2025 History of Present illness Narrative Neuro SPINE CARE COORDINATION POST OP FOLLOW UP Spoke to patient who is 7 days post 03/30/2025: revision L4-5 decompression, L4-5 TLIF . Pain is well controlled with pain meds Tylenol and muscle relaxer Robaxin Incisions is clean, dry, and healing well Ambulatory/Activity: walking well unassisted Additional patient concerns: voiding difficulty (patient seeing PCP today at 3) Follow up: V V with ESTEFANY 05/12 Daily Plan of Care Visit during inpatient stay: yes Plan of Care Visit helpful: yes Additional Notes: Patient overall surgical healing feels that he is doing well. Controlling pain with tylenol and robaxin. Patient has not needed the oxycodone. Patient walking and moving slowly but able to do so. Patient having urination issues that were addressed yesterday 2 with follow up today 04/06. Patient denies any red flag symptoms and denies need for any refills. Patient states incision looks good with no concerns. Will update office with any needs. Carrie Martines, RN documented in this encounter [facility] 04-05-2025 Miscellaneous Notes Pt had surgery with Dr Kraus at the [facility] for spine surgery 03/30. Dr wants pt to follow up with you for sx's pt is having. Blood in urine, urgency, afebrile. This has been going on for 3 days. Nurse will call back to get pt sched to see you. Should see someone (physician audiovisual tech or myself) this week given the symtpoms Spoke to pt and [facility] made appt for pt to see his PCP tomorrow. He will keep that appt and see what he says and go from there. documented in this encounter [facility] 04-05-2025 Telephone encounter Note Pt had surgery with Dr Kraus at the [facility] for spine surgery 03/30. Dr wants pt to follow up with you for sx's pt is having. Blood in urine, urgency, afebrile. This has been going on for 3 days. Nurse will call back to get pt sched to see you. [facility] 04-05-2025 Telephone encounter Note Should see someone (physician audiovisual tech or myself) this week given the symtpoms [facility] 04-05-2025 Telephone encounter Note Spoke to pt and [facility] made appt for pt to see his PCP tomorrow. He will keep that appt and see what he says and go from there. [facility] 04-05-2025 Telephone encounter Note Images from the original note were not included. Drew Leija PA-C You 3 minutes ago (9:38 AM) Thank you, I agree. Is there a way to have him see urology or PCP for evaluation? Spoke w/ pt. PCP is Dr. Light and he will see his FUNERAL DIRECTOR AND EMBALMER tomorrow @ 3p. Shared clinical update with MIREILLE Francisco. Dr. Juan F Heller is his urologist . , update shared w/ MIREILLE Liu. Pt will meet with PCP and then touch base with urology if needed. He will monitor symptoms and be seen if things worse. EA notified. [facility] 04-05-2025 Miscellaneous Notes Images from the original note were not included. Drew Leija PA-C You 3 minutes ago (9:38 AM) Thank you, I agree. Is there a way to have him see urology or PCP for evaluation? Spoke w/ pt. PCP is Dr. Light and he will see his FUNERAL DIRECTOR AND EMBALMER tomorrow @ 3p. Shared clinical update with MIREILLE Francisco. Dr. Juan F Heller is his urologist . , update shared w/ MIREILLE Liu. Pt will meet with PCP and then touch base with urology if needed. He will monitor symptoms and be seen if things worse. EA notified. Date of Surgery w/ Radha Alonzo: 03/30/2025 Surgery: revision L4-5 decompression, L4-5 TLIF Returned call to pt. When I go to the bathroom and urinate, the stool is kind of tinted. Then when peeing, it just started burning when, its all blood coming out of me. I let it drain out and it's all blood. It happened one that night I checked out and the nurses didn't say much about it. Blood is bright red. He shared that it is a honey color to it. He had some burning when the blood is coming out, gomez like sin He is not sure if he has previously had a UTI. He feels that he has the urgency along with the burning. Negative for fever or chills, incision is clean, dry and intact, no other s/s infection. He had a prostatectomy 7-10 years ago. The bleeding has stayed the same for the last 3 voids. Denies lightheadedness, dizziness. Reviewed when to be seen in ER. Verbalized understanding. Update shared w/ EA for review. Call received for Johnathan Kraus MD regarding Regan Green. Caller: self Patient Identified by Name and : Regan Green 1950 Reason for Call: Symptoms Are you experiencing any of the following? New weakness: No Falling: No Numbness/tingling of extremities? No Location n/a Changes of bowel control: No Changes in bladder control: Yes peeing blood two days Do you have a fever and/or chills: No Post-Surgical Symptoms (within 3 months of surgery): Date of surgery: 03/30/25 Sutures or Adri: Unsure Incision: Patient reports no issues Pain level 0-10:0/10 Location: Skin color is dark red and purple going down buttock and down right leg When did the pain begin? 04/02/25 Describe your pain: What medications are you taking for the pain? Other - Do you have any other symptoms? No Is there any additional information the provider should know? No Last Office Visit: 03/10/2025 Next scheduled appointment: Visit date not found Best number to reach caller: [phone] Best time to reach caller: anytime Is it OK to leave a detailed voice message? Yes Kaykay Gandhi documented in this encounter [facility] 04-05-2025 Telephone encounter Note Date of Surgery w/ Radha Alonzo: 03/30/2025 Surgery: revision L4-5 decompression, L4-5 TLIF Returned call to pt. When I go to the bathroom and urinate, the stool is kind of tinted. Then when peeing, it just started burning when, its all blood coming out of me. I let it drain out and it's all blood. It happened one that night I checked out and the nurses didn't say much about it. Blood is bright red. He shared that it is a honey color to it. He had some burning when the blood is coming out, gomez like sin He is not sure if he has previously had a UTI. He feels that he has the urgency along with the burning. Negative for fever or chills, incision is clean, dry and intact, no other s/s infection. He had a prostatectomy 7-10 years ago. The bleeding has stayed the same for the last 3 voids. Denies lightheadedness, dizziness. Reviewed when to be seen in ER. Verbalized understanding. Update shared w/ EA for review. [facility] 04-05-2025 Telephone encounter Note Call received for Johnathan Kraus MD regarding Regan Green. Caller: self Patient Identified by Name and : Regan Green 1950 Reason for Call: Symptoms Are you experiencing any of the following? New weakness: No Falling: No Numbness/tingling of extremities? No Location n/a Changes of bowel control: No Changes in bladder control: Yes peeing blood two days Do you have a fever and/or chills: No Post-Surgical Symptoms (within 3 months of surgery): Date of surgery: 03/30/25 Sutures or Adri: Unsure Incision: Patient reports no issues Pain level 0-10:0/10 Location: Skin color is dark red and purple going down buttock and down right leg When did the pain begin? 04/02/25 Describe your pain: What medications are you taking for the pain? Other - Do you have any other symptoms? No Is there any additional information the provider should know? No Last Office Visit: 03/10/2025 Next scheduled appointment: Visit date not found Best number to reach caller: [phone] Best time to reach caller: anytime Is it OK to leave a detailed voice message? Yes Kaykay Gandhi [facility] 04-01-2025 Note HNO ID: [id number] Author: SHIRAZ ELIAS PA-C Service: Neurosurgery Author Type: Physician Physician Intensivist Type: Progress Notes Filed: 04/01/2025 10:33 Note Text: SERVICE DATE: 04/01/2025 SERVICE TIME: 10:33 AM SPINE SURGERY TEAM PROGRESS NOTE After 6 PM (1800) please page Patricia Davis PA-C [phone], backup pager [phone]. Attending: Johnathan Desouza MD Location: [id number] Hospital Day: 3 03/30/2025 2 Days Post-Op S/P: revision L4-5 decompression, L4-5 TLIF MEDICATIONS: Current medications and allergies reviewed. Recommended/planned medication changes discussed in detail in the A/P section below. INTERVAL HPI (Subjective): is a 75 year old male who reports pain is well managed. Continues to use PRODUCE LABORER, discussed weaning off of PRODUCE LABORER today. Drain removed at bedside. Patient reporting improved R thigh sensation today. Denies excessive pain, bleeding, drainage, nausea, vomiting, chest pain, shortness of breath, and light headedness. Overnight events noted: none. Bowel / Bladder dysfunction: No OBJECTIVE: LABS: CBC: Recent Labs 04/01/255 03/31/256 WBC 7.83 11.36* HB 11.0* 11.5* HCT 34.3* 34.9* PLT 210 218 MCV 95.3 92.8 RDWCV 13.2 12.9 COAG: No results for input(s): APTT , INR in the last 168 hours. BMP: Recent Labs 04/01/25 0435 03/31/25 0446 GLUC 87 100* NA 141 141 K 4.3 4.2 CHLOR 108* 106 CO2 24 24 ANION 9 11 BUN 15 12 CREAT 0.77 0.64* CHEM: Recent Labs 04/01/255 03/31/25 0446 CA 8.6 8.6 Estimated Creatinine Clearance: 105.6 mL/min (based on SCr of 0.77 mg/dL). 04/01/25 0132 04/01/25 0552 04/01/25 0700 04/01/25 0941 BP: 114/62 113/64 111/61 Pulse: 88 84 91 Resp: 17 17 16 19 Temp: 36.5 ?C (97.7 ?F) 36.4 ?C (97.5 ?F) 36.7 ?C (98.1 ?F) TempSrc: Oral Oral Oral SpO2: 99% 97% 95% 93% Weight: Height: General: A AND O x Oriented to: person, place, and time, awake and alert. Speech is Normal, full, fluent. Appears stated age, overweight, in no apparent distress. Psychiatric: Mood and affect: Appropriate. Skin: Color, texture, turgor normal. No rashes or lesions - Inspection: No evidence of eythema, warmth, bruising, abrasions, scars, deformity, or lacerations. Dressing c/d/i CV: Normal heart sounds, rate, rhythm, pedal pulses. No audible murmurs, carotid bruits, LE edema.. Respiratory: unlabored breathing Abdomen: Soft and Non-tender Musculoskeletal: Motor: UE BICEPS TRICEPS DELTS Wrist Ext Wrist Flex Log Cooker HI R 5/5 5/5 5/5 5/5 5/5 5/5 5/5 L 5/5 5/5 5/5 5/5 5/5 5/5 5/5 LE Hip Flex Knee Flex Knee Extend Plantarflex Dorsiflex EHL R 5/5 5/5 5/5 5/5 5/5 5/5 L 5/5 5/5 5/5 5/5 5/5 5/5 Sensory: diminished sensation in L lateral thigh. QUALITY CHECKLIST: Lines, Drains, and Airways Line Duration Peripheral 03/30/25 0955 Short Left Forearm 18 Gauge 2 days Peripheral 03/30/25 1210 Right Hand 16 Gauge 1 day Drain Duration Drain/Tube 03/30/25 1626 [facility] Hemovac Back 1 day Indwelling Urinary Catheter 03/30/25 1200 [facility] Coude 16 Fr 1 day Drain removed 04/01 Croft removed on 03/31 Current restraint orders: None Assessment AND Plan Active Hospital Problems as of 04/01/2025 Noted - Resolved POA Hospital * (Principal) Spinal stenosis of lumbar region, unspecified whether neurogenic claudication present 03/30/2025 - Present Yes Current Assessment AND Plan Assessment: s/p revision L4-5 decompression, L4-5 TLIF PLAN: -Pain control: begin weaning PRODUCE LABORER -Drain removed -PT/OT rec HHC, patient declining -Upright x-rays when able -DVT ppx: continue IPCs, heparin SQ bid -OOB for meals, mobilize at least 3x daily -Bowel regimen -Anticipate d/c in 1-2 days -D/w Dr. Kraus Acute post-operative pain 03/31/2025 - Present Yes Current Assessment AND Plan Assessment: Post-op pain PLAN: -Begin weaning PRODUCE LABORER -Continue prn PO pain regimen S/P lumbar fusion 03/31/2025 - Present Yes Current Assessment AND Plan Assessment: S/p revision L4-5 decompression, L4-5 TLIF PLAN: -See spinal stenosis POC Class 1 obesity due to excess calories with body mass index (BMI) of 30.0 to 30.9 in adult 03/31/2025 - Present Yes Current Assessment AND Plan Assessment: Obesity -[facility] weight loss info ABLA (acute blood loss anemia) 03/31/2025 - Present Yes Current Assessment AND Plan Assessment: Postop anemia PLAN: -Trend -Transfuse for Hgb less than 7.0 or symptomatic anemia Medication and Non-Pharmacologic VTE Prophylaxis/Anticoagulants Anticoagulant AND Antiplatelet Medications (From admission, onward) Start Dose Route Frequency Last Action Ordered Stop 04/01/25 0600 heparin 5,000 Units injection (Surgical Risk Categories) 5,000 Units SQ EVERY 8 HOURS Given, 04/01 0514 03/31/25 0947 -- 03/30/25 2130 activity - mobilize patient (fl,oh) VTE Prophylaxis: VTE prophylaxis appropriate Plan of care discussed with: P (more content not included)... [facility] 03-31-2025 Note HNO ID: [id number] Author: KENNETH QUIROGA ? Service: Pharmacy Author Type: Tailor Helper Type: Plan of Care Filed: 03/31/2025 16:46 Note Text: Insurance investigation completed Patient has active prescription insurance: Yes - Patient's insurance is in-network with [facility] Insurance loaded into [place]: Yes Test claim was completed to verify insurance is active: Successful Any questions, please reach out to your medication toy trains and accessories salesperson. [facility] 03-31-2025 Note HNO ID: [id number] Author: ZOILA SANTORO LSW Service: Care Management Author Type: Drop Wirer Type: Care Mgt Initial Assessment Filed: 03/31/2025 12:51 Note Text: CARE MANAGEMENT: ASSESSMENT AND DISCHARGE PLAN SERVICE DATE: March 31, 2025 SERVICE TIME: 12:44 PM PCP: Sumanth Light MD Primary Contact: Extended Emergency Contact Information Primary Emergency Contact: Angelina Green Mobile Relation: Spouse Admission Status: Inpatient Insurance Provider: MEDICARE A AND B Discharge Planning requested by: Per Department Practice Potential Transition Plans Home Advance Directives Current Advance Directive: Health Care Power of Dance Professor, Living Will, Other Document: See Comment (DNR) In Chart: No Research Fellow Attempted to Assist with AD Completion: Yes Action: Education Provided Current Living Arrangements and Support Lives with: Spouse/significant other Type of Residence: Private Residence (House) Does the patient have to climb stairs at home?: Yes, stairs outside the home, stairs within the home (one step outside) Support: Spouse/significant other How do you manage to accomplish the following: Independent: Ambulation, Bathe/Shower, Dress, Meals/Meal Prep, Going to the bathroom, Medication Management, Transportation to appointments/community Current Services/Equipment Current Post-Acute Service(s): DME Current DME Type: Walker Discharge Planning Patient Goal(s): Be able to go home, Better mobility [place] of [place] Explained: [place] of [place] Given: Yes Level of Care Discussed: Home Care Are you interested in bedside delivery of your medications? No Discharge Planning Participant(s): Patient Caregiver Assessment: Caregiver is ready, willing and able to meet the patient's needs as recommended by the inter-professional team: Other: See Comment (pt reported his spouse is able to assist if needed) Transport at Discharge: Transportation Arrangements: Car Destination: Home Needs Prior to Discharge: Needs Prior to Discharge: To Be Determined Post-Acute Discharge Plan: Per medical team, ,anticipating Saturday vs Saturday [place] PT rec home PT CM met with pt. Pt reported he lives with his spouse. Pt denied SNF, HHC, Home O2 prior to admission. CM completed SDOH. No concerns indicated. Pt declined HHC. Pt reported he wants to do outpatient therapy. CM notified medical team. Pt reported his spouse will transport him home at [place] . No skilled needs at this time. Care Management will follow for Post Hospital Transition Needs. Twenty four (24) hours notice is required if any new needs are anticipated in order to ensure a safe discharge. For questions, please contact the civil engineering project manager (Transitional Poultry Farmer Meat) or Drop Wirer assigned to the patient under Treatment team. SIGNATURE: BETO Tracy PATIENT NAME: Regan Green DATE: March 31, 2025 TIME: 12:44 PM [facility] 03-31-2025 Note HNO ID: [id number] Author: SHIRAZ ELIAS PA-C Service: Neurosurgery Author Type: Physician Physician Intensivist Type: Progress Notes Filed: 03/31/2025 10:38 Note Text: SERVICE DATE: 03/31/2025 SERVICE TIME: 10:37 AM SPINE SURGERY TEAM PROGRESS NOTE After 4 PM (1600) please page Marylou Jaimes CNP [phone]. After 6 PM (1800) please page Patricia Davis PA-C [phone] or Johnathan Madrigal PA-C [phone], backup pager [phone]. Attending: Johnathan Desouza MD Location: [id number]/[id number] Hospital Day: 2 03/30/2025 1 Day Post-Op S/P: revision L4-5 decompression, L4-5 TLIF MEDICATIONS: Current medications and allergies reviewed. Recommended/planned medication changes discussed in detail in the A/P section below. INTERVAL HPI (Subjective): is a 75 year old male who reports incisional pain that was well managed with PRODUCE LABORER overnight. Denies any new numbness, weakness or radicular pain. Notes continued numbness in left lateral hip/thigh area that is unchanged from baseline. Denies excessive pain, bleeding, drainage, nausea, vomiting, chest pain, shortness of breath, and light headedness. Overnight events noted: none. Bowel / Bladder dysfunction: No OBJECTIVE: LABS: CBC: Recent Labs 03/31/25 0446 WBC 11.36* HB 11.5* HCT 34.9* PLT 218 MCV 92.8 RDWCV 12.9 COAG: No results for input(s): APTT , INR in the last 168 hours. BMP: Recent Labs 03/31/25 0446 GLUC 100* NA 141 K 4.2 CHLOR 106 CO2 24 ANION 11 BUN 12 CREAT 0.64* CHEM: Recent Labs 03/31/25 044 CA 8.6 Estimated Creatinine Clearance: 127.1 mL/min (A) (based on SCr of 0.64 mg/dL (L)). 03/31/25 0602 03/31/25 0800 03/31/25 0830 03/31/25 1008 BP: 114/65 107/60 Pulse: 87 Resp: 16 18 Temp: 37 ?C (98.6 ?F) TempSrc: Oral SpO2: 95% 96% 98% 95% Weight: Height: General: A AND O x Oriented to: person, place, and time, awake and alert. Speech is Normal, full, fluent. Appears stated age, overweight, in no apparent distress. Psychiatric: Mood and affect: Appropriate. Skin: Color, texture, turgor normal. No rashes or lesions - Inspection: No evidence of eythema, warmth, bruising, abrasions, scars, deformity, or lacerations. Dressing c/d/i CV: Normal heart sounds, rate, rhythm, pedal pulses. No audible murmurs, carotid bruits, LE edema.. Respiratory: unlabored breathing Abdomen: Soft and Non-tender Musculoskeletal: Motor: UE BICEPS TRICEPS DELTS Wrist Ext Wrist Flex Log Cooker HI R 5/5 5/5 5/5 5/5 5/5 5/5 5/5 L 5/5 5/5 5/5 5/5 5/5 5/5 5/5 LE Hip Flex Knee Flex Knee Extend Plantarflex Dorsiflex EHL R / 5/5 5/5 5/5 5/5 5/5 L 5/5 5/5 5/5 5/5 5/5 5/5 Sensory: diminished sensation in L lateral thigh. QUALITY CHECKLIST: Lines, Drains, and Airways Line Duration Peripheral 03/30/25 0955 Short Left Forearm 18 Gauge 1 day Peripheral 03/30/25 1210 Right Hand 16 Gauge <1 day Drain Duration Drain/Tube 03/30/25 1626 [facility] Hemovac Back <1 day Indwelling Urinary Catheter 03/30/25 1200 [facility] Coude 16 Fr <1 day Maintain hemovac, d/c croft Current restraint orders: None Assessment AND Plan Active Hospital Problems as of 03/31/2025 Noted - Resolved POA Hospital * (Principal) Spinal stenosis of lumbar region, unspecified whether neurogenic claudication present 03/30/2025 - Present Yes Current Assessment AND Plan Assessment: s/p revision L4-5 decompression, L4-5 TLIF PLAN: -Pain control: continue present regimen -Trend drain output -PT/OT rec HHC -Upright x-rays when able -DVT ppx: continue IPCs, heparin SQ beginning POD2 -OOB for meals, mobilize at least 3x daily -Bowel regimen -D/c croft catheter -Anticipate d/c in 2-3 days -D/w Dr. Kraus Acute post-operative pain 03/31/2025 - Present Yes Current Assessment AND Plan Assessment: Post-op pain PLAN: -Continue PRODUCE LABORER, begin weaning tomorrow -Continue prn PO pain regimen S/P lumbar fusion 03/31/2025 - Present Yes Current Assessment AND Plan Assessment: S/p revision L4-5 decompression, L4-5 TLIF PLAN: -See spinal stenosis POC Class 1 obesity due to excess calories with body mass index (BMI) of 30.0 to 30.9 in adult 03/31/2025 - Present Yes Current Assessment AND Plan Assessment: Obesity -[facility] weight loss info ABLA (acute blood loss anemia) 03/31/2025 - Present Yes Current Assessment AND Plan Assessment: Postop anemia PLAN: -Trend -Transfuse for Hgb less than 7.0 or symptomatic anemia Medication and Non-Pharmacologic VTE Prophylaxis/Anticoagulants Anticoagulant AND Antiplatelet Medications (From admission, onward) Start Dose Route Frequency Last Action Ordered Stop 04/01/25 0600 heparin 5,000 Units injection (Surgical Risk Categories) 5,000 Units SQ EVERY 8 HOURS Ordered 03/31/25 0947 -- 03/30/25 2130 activity - mobilize patient (ia,oh) VTE Prophylaxis: VTE prophylaxis appropriate Plan of care discussed with: Pro (more content not included)... [facility] 03-30-2025 Note HNO ID: [id number] Author: JESSICA LEE MD Service: Neurosurgery Author Type: Fellow Type: Plan of Care Filed: 03/30/2025 17:04 Note Text: Spine Surgery POC Note Interval HPI: S/p revision L4-5 decompression, L4-[address] Kraus Objective: 03/30/25 0950 BP: 156/85 Pulse: 100 Resp: 16 Temp: 36.8 ?C (98.2 ?F) TempSrc: Temporal SpO2: 95% EXAM: Spine Exam LE Hip Flex Knee Flex Knee Extend Plantarflex Dorsiflex EHL R 5/5 5/5 5/5 5/5 5/5 5/5 L 5/5 5/5 5/5 5/5 5/5 5/5 Postop Plan: - No HOB restriction - Perioperative antibiotics: Ancef - DVT prophylaxis: SCDs and subq hepain POD 2 - Dressing: Silverlon adri - XR lumbar POD 2 - Croft out POD 1 - Hemovac x1 Jessica Lee MD Spine Surgery Fellow Pager# [phone] March 30, 2025 5:03 PM Please page [phone] after 6 PM and on weekends [facility] 03-30-2025 Note HNO ID: [id number] Author: SO SAINZ MD Service: ? Author Type: Anesthesiologist Type: Anesthesia Procedure Notes Filed: 03/30/2025 16:15 Note Text: ANESTHESIOLOGY PROCEDURE NOTE Peripheral Nerve Block General Information Procedure Start Time/Medication Administration: 03/30/2025 12:35 PM Procedure End time: 03/30/2025 12:55 PM Patient location during procedure: OR Timeout Performed Pre-procedure: timeout performed Consent Obtained: Yes Patient identity confirmed: arm band Reason for block: post-op pain management/at surgeon's request Staffing Performed by: anesthesiologist Preparation Sterility Preparation: hand hygiene performed prior to procedure, sterile gloves, drapes, and procedure tray, gown used during line insertion, surgical cap used, mask used, sterile drape used during line insertion, skin prep agent completely dried prior to procedure Site Prep: Chloraprep Procedure Details Patient Position: prone Monitoring: Pulse OX, EKG and NIBP Block Type Trunk: erector spinae plane block Left Sensory Level: L3 Right Sensory Level: L3 Laterality: bilateral Injection Technique: single-shot Ultrasound Guided: Yes Image in Chart: No Local Infiltration: Yes Needle Needle Type: echogenic Needle Gauge: 21 G Needle Length: 10 cm Needle Localization: ultrasound Assessment Injection assessment: negative aspiration, incremental injection and local visualized surrounding nerve on ultrasound Medications Administered bupivacaine (PF) 0.25 % (2.5 mg/mL) injection (SENSORCAINE MPF) - peripheral nerve block 30 mL - 03/30/2025 12:35:00 PM bupivacaine liposome (PF) 1.3 % (13.3 mg/mL) injection (EXPAREL) - INFILTRATION 266 mg - 03/30/2025 12:35:00 PM SIGNATURE: So Sainz MD PATIENT NAME: Regan Green DATE: March 30, 2025 TIME: 1:11 PM CSN: [id number] [facility] 03-30-2025 Note HNO ID: [id number] Author: BONNIE MENDOZA SRNA Service: ? Author Type: Student Type: Anesthesia Procedure Notes Filed: 03/30/2025 12:58 Note Text: ANESTHESIOLOGY PROCEDURE NOTE PIV General Information Procedure Start Time/Medication Administration: 03/30/2025 12:10 PM Procedure End Time: 03/30/2025 12:10 PM Patient Location: OR Staffing Anesthesiologist: So Sainz MD Performed by: anesthesiologist Preparation Sterility Preparation: hand hygiene performed prior to procedure, surgical cap used, mask used, skin prep agent completely dried prior to procedure Sterility Technique Not Completely Performed Due to Extreme Emergency: No Site Prep: alcohol Procedure Details Indication: need for IV access Needle Size/Type: 16 gauge angiocath Orientation: Right Location: Hand Imaging Guidance Used: No SIGNATURE: SAUL Blair PATIENT NAME: Regan Green DATE: March 30, 2025 TIME: 12:58 PM CSN: [id number] [facility] 03-30-2025 Note HNO ID: [id number] Author: SO SAINZ MD Service: ? Author Type: Anesthesiologist Type: Anesthesia Procedure Notes Filed: 03/30/2025 13:15 Note Text: ANESTHESIOLOGY PROCEDURE NOTE Airway General Information Procedure Start Time/Medication Administration: 03/30/2025 12:09 PM Procedure End Time: 03/30/2025 12:09 PM Patient location during procedure: OR Timeout Performed Pre-procedure: timeout performed Consent Obtained: Yes Patient identity confirmed: arm band, care hospitality team member and patient Staffing Anesthesiologist: So Sainz MD SRNA: Bonnie Mendoza SRNA Performed by: SAUL Indications and Patient Condition Indications for airway management: anesthesia and airway protection Preoxygenated: yes anesthesia circuit Patient position: sniffing Method: asleep Cricoid Pressure: No Manual In-Line Stabilization: No Difficult Mask: No Final Airway Details Final airway type: endotracheal airway Final Endotracheal Airway: ETT Cuffed: yes Successful intubation technique: video laryngoscopy Devices used: Gonsalves Endotracheal tube insertion site: oral Blade: Jeremiah Blade size: #4 ETT size (mm): 7.5 Measured from: lips Measurement (cm): 23 Placement verified by: capnometry Cormack-Lehane Classification: grade I - full view of glottis Number of attempts at approach: 1 Failed airway: no Unrecognized esophageal intubation: no Airway not difficult Comments Attending Note For the Bedside procedure, I was physically present during the entire procedure. SRNA, under direct supervision and the remainder of the procedure was performed by the primary surgeon/proceduralist with assistance. Signature: So Sainz MD Date: 03/30/2025 Time: 1:14 PM SIGNATURE: SAUL Blair PATIENT NAME: Regan Green DATE: March 30, 2025 TIME: 12:55 PM CSN: [id number] [facility] 03-23-2025 Note HNO ID: [id number] Author: CARRIE MARTINES RN Service: ? Author Type: Registered Nurse Type: Progress Notes Filed: 03/23/2025 10:06 Note Text: Neuro SPINE CARE COORDINATION PRE-OP VISIT Spoke with patient for pre op education. Given both written and verbal instructions re : Skin prep, wound care, pain management and post op restrictions. Provided to patient: [facility] Surgery Guide Yes Reviewed with patient to report to desk J19 for surgery ? Yes. Reviewed with the patient to call [phone] the day before to get surgery report time? Yes. Patient aware eat nothing after midnight prior to surgery, clear liquids only until 2 hours before report time. Yes. Patient aware surgery will be INPATIENT. Discussed care post discharge : Self care and Home Health Care ( PT-OT-nurse). Does patient have transportation to and from surgery ? Yes. Patient to bring Falls Education provided ? Yes Nasal swab obtained ? Yes. Patient instructed in mupirocin treatment : NA as patient was negative. Questions answered and patient voice(s) understanding via teach back. Physical Therapy : TBD, patient aware that no out patient PT in the 6-8 wks following surgery. Patient was instructed to take a few short walks per day and for every hour of sitting to stand and move for about 3-5 mins. Additional Comments : Post -op Support home with . Discussed the surgical guide in detail. I provided all contact numbers for patient to get a hold of the office. I also provided the after hours number. I discussed in detail that, Pain relief post operative- is managed with an opioid. As we are a surgical office we can only provide 7 days of this medication at a time. This medication is for initial post operative and incisional pain. The surgical team will refill every 7 days but when a refill is requested I will call to discuss your healing, pain management and how you are taking the opioid at that time. I will then relay this information to the provider for their recommendations on the next refill and how to proceed. Their goal is to have you off this medication by week 2-3 post operative. Carrie Martines RN [facility] 03-21-2025 Note HNO ID: [id number] Author: WALTER MORROW RN Service: ? Author Type: Registered Nurse Type: Progress Notes Filed: 03/21/2025 21:49 Note Text: Patient referred to Blood Management for pre-surgical optimization. Hgb 15.0 which exceeds Blood Management guidelines for intervention. [facility] 03-21-2025 History of Present illness Narrative Patient referred to Blood Management for pre-surgical optimization. Hgb 15.0 which exceeds Blood Management guidelines for intervention. documented in this encounter [facility] 03-18-2025 Note HNO ID: [id number] Author: FABIAN LYNN III, MD Service: ? Author Type: Physician Type: Progress Notes Filed: 03/18/2025 13:51 Note Text: Attending Note I evaluated the patient and personally participated in the potter components. I agree with the resident's findings and plan as documented and have discussed the case and management of the patient's care with the resident. Signature: Fabian Lynn III, MD Date: 03/18/2025 Time: 1:51 PM [facility] 03-18-2025 History of Present illness Narrative Attending Note I evaluated the patient and personally participated in the potter components. I agree with the resident's findings and plan as documented and have discussed the case and management of the patient's care with the resident. Signature: Fabian Lynn III, MD Date: 03/18/2025 Time: 1:51 PM documented in this encounter [facility] 03-18-2025 Instructions Vance Ferreira, - 03/18/2025 1:10 PM EDT Images from the original note were not included. [facility] PATIENT PREOPERATIVE INSTRUCTIONS No ref. provider found has scheduled you for your procedure at this surgery center: [facility] [place] [facility] Scheduling Office: [phone] --[address] [place] [address]. Please read below carefully for your personalized instructions. Dietary Restrictions: - No solid food after midnight. - You may have 12 ounces of clear liquids (water, clear juices such as apple juice or gatorade, carbonated beverages, clear tea, black coffee, jello) until 2 hours before scheduled arrival at facility. Medications: Unless instructed differently below, stay on all of your medications until your surgery. If you start any new medications after today's visit, please contact your surgeon. Pre-Surgery Med Instructions Medication Instructions calcium carbonate (OS-JARRETT 500) 500 mg calcium (1,250 mg) tablet Hold 7 days before the surgery diclofenac, EC, (VOLTAREN) 75 mg EC tablet Hold 7 days before the surgery cyclobenzaprine (FLEXERIL) 10 mg tablet Use day of surgery. gabapentin (NEURONTIN) 300 mg capsule Use day of surgery. ELDERBERRY FRUIT ORAL Hold 7 days before the surgery OXYCODONE HCL/ACETAMINOPHEN (PERCOCET ORAL) Use day of surgery. If you take any medications for erectile dysfunction-Cialis (Tadalafil), Levitra, Staxyn (Vardenafil) Viagra (Sildenenafil please do not take these for 48 hours before surgery. If you start any new medications after today's visit, please contact the surgeon's office. If you are currently using a sgew-gwe-zqos injectable or oral medication for diabetes or weight loss such as Dulaglutide (Trulicity), Exenatide (Byetta, Bydureon), Liraglutide (Victoza, Saxenda), Semaglutide (Ozempic, Wegovy, Rybelsus), or Tirzepatide (Mounjaro), the medicine should be stopped at least 7 days before surgery. These medicines can cause food to remain in your stomach for a very long time and increase the risks from surgery and anesthesia. Not stopping the medication for a long enough time may result in your surgery being rescheduled. Blood Thinning Medications: - Stop NSAIDS (Ibuprofen, Advil, Aleve, Motrin, Celebrex, Mobic, etc.) 7 days before surgery, as directed by your surgeon. - Stop Aspirin 7 days before surgery, as directed by your surgeon. Important Reminders: - Candy, mints, and tobacco products are NOT permitted the morning of surgery. - Hearing aids, dentures and glasses may be worn the morning of surgery. - NO jewelry, body piercings, makeup, hairpins or contacts are to be worn the day of surgery. If you develop symptoms such as a fever, cold, or flu, or have other changes to your health within TWO DAYS of scheduled surgery or the morning of surgery, please contact the surgery center above. Personal Belongings: -Please have photo ID and insurance cards. -If you do not have a copy of advance directives on file with us, please bring a copy with you on the day of surgery. - Leave ALL valuables and money at home or with family members. - Please bring high-quality footwear, such as sneakers, to the hospital for ambulating post-surgery. For Outpatient Procedures: - YOU MUST HAVE A RESPONSIBLE MELT HOUSE CENTRIFUGAL OPERATOR TAKE YOU HOME. A CITY CARRIER ASSISTANT OR SYSTEM OPERATOR CANNOT BE MADE A RESPONSIBLE MELT HOUSE CENTRIFUGAL OPERATOR. - We recommend that a responsible person stays with you overnight to take care of you. - You cannot stay in a hotel alone after outpatient surgery. You will not be permitted to have your surgery, if you do not have someone to take care of you. Arrival Time for Surgery: - To obtain your arrival time for surgery, call your physician's office the day before your surgery. - If you have received different instructions about finding out your arrival time from your surgeon, please follow those instructions. - If your surgery is scheduled for Saturday, call the Saturday before. Your surgeon s production scheduler will tell you what time to call the office. - If you have not reached the departmental production scheduler by 5 P.M., call [phone] after 5 P.M. the day before your surgery. Please be aware that emergency situations arise, which may delay or change your surgical time. If this happens, we will notify you as soon as possible and regret any inconvenience. If you already have an Advance Directive, please fax a copy to [phone] or email to for it to be added to your chart. If you do not have an Advance Directive, you can find the appropriate form and more information at [email or web address]. We recommend that you complete the Advance Directive form found on the website and bring it with you the day of your surgery. It can be witnessed and scanned into your chart that day. Vance Ferreira DO documented in this encounter [facility] [place] 03-18-2025 History and physical note Images from the original note were not included. [facility] HISTORY AND PHYSICAL EXAMINATION SERVICE DATE: 03/18/2025 SERVICE TIME: 1:22 PM PRIMARY CARE PHYSICIAN: Sumanth Light MD Assessment Patient has the following medical conditions which may affect juan-operative course: Radiculopathy, lumbar region CT SPECT scan of the lumbar spine reviewed there is significant uptake at the L4-5 disc level and vacuum disc, at the level above which is also degenerative there is no uptake in the disc and there is some uptake in the bilateral L3-4 facet joints Now scheduled for L4-L5 decompression laminectomy Pt has a hx of lumbar laminectomy L2-L5 in 2023 Patient currently on gabapentin, PRN toradol, cyclobenzaprine, PRN oxycodone and PRN diclofenac for pain control Malignant neoplasm of prostate (HCC) S/p prostatectomy, stable S/P total knee arthroplasty S/p total right knee arthroplasty in 2012, f/b revision same knee ANESTHESIA FINDINGS: Intubation History: No history of difficult intubation. No abnormal airway history Significant Anesthesia Considerations: none Airway History: No history of difficult airway No abnormal airway history Garcia Activity Status Index: METS: Walk indoors, such as around the house (1.75 METs) Walk a block or two on level ground (2.75 METs) Do moderate work around the house, such as vacuuming, sweeping floors, or carrying in groceries (3.50 METs) Climb a flight of stairs or walk up a hill (5.50 METs) DASI Score: 13.5 Patient denies any chest pain or undue shortness of breath with the above physical activity. Clinical Frailty Scale: 2. Well STOP-Bang Score: STOP-Bang Score: 0 ARISCAT Score: Age: 51-80 Preoperative SpO2: 91-95% Preoperative anemia: Yes Duration of surgery: >3 hrs Emergency procedure: No ARISCAT Score: I - PHYSICAL EVALUATION AIRWAY Patient intubated: No. Tracheostomy tube not present Mallampati: II. TM distance: >3 FB. Neck ROM: full ROM without neurological symptoms. Mouth opening: adequate. Short neck: no. Thick neck: no DENTAL Dental findings: teeth intact. II - ANESTHESIA PLAN Beta Radha Monitoring Plan Post Procedure Analgesic Plan Informed Consent Anesthetic risks, benefits, alternatives, personnel and consent discussed: yes. Patient / Responsible Libertarian agrees to proceed: yes Patient / Surrogate agrees to blood products: Yes Prepared for Surgery: optimally prepared for surgery, pending [see comment]. Labs CONSULTS: Patient does not require consults for optimization at this time Planned Anesthetic: The Following Tests/Procedures Have Been Initiated: No orders of the defined types were placed in this encounter. REASON FOR VISIT: Regan Green is a 74 year old male who is scheduled for Procedure(s): TLIF DECOMPRESSION LAMINECTOMY INTERBODY FUSION LUMBAR POSTERIOR (PLIF) LEVEL 1 (N/A) INSERTION INTERBODY BIOMED DEVICE(S) W/ANT INSTR ANCHORING TO DISC SPACE W/INTERBODY FUSION,EA INTERSPACE (N/A) POSTERIOR NON-SEGMENTAL INSTRUMENTATION FOLLOWING LUMBAR FUSION 1 LEVEL PDFI (N/A) AUTOGRAFT FOR SPINE SURGERY ONLY, OBTAINED FROM SAME INCISION (N/A) at the request of @[email or web address]@ for consultation. My final recommendation will be communicated back to the requesting physician by way of shared medical record or letter. Subjective The patient has the following: COVID-19 Immunization Status Current Care Gaps Covid-19 Vaccine ( season) Overdue since 07/05/2024 08/20/2022 Imm Admin: COVID-19 vaccine, age 12+ yr, bivalent ([employer]) 09/18/2021 Imm Admin: COVID-19 original vaccine, full dose, monovalent (MODERNA) 01/18/2021 Imm Admin: COVID-19 original vaccine, full dose, monovalent (MODERNA) Only the first 3 history entries have been loaded, but more history exists. CHIEF COMPLAINT: Pre-Op Evaluation HPI: Pt is a 74 y/o M w/ PMH of prostatic carcinoma, Hx of UTIs, lumbar radiculopathy now scheduled for decompression laminectomy L3-L5 with Dr. Kraus on 03/30/25 REVIEW OF SYSTEMS: General: No weight loss, malaise or fevers. Neurological: Negative for: headaches, impaired sensorium, seizures, TIA and strokes. Respiratory: Negative for: asthma, COPD, current cough, dyspnea, pneumonia within 6 weeks, tobacco use, URI < 2 weeks and obstructive sleep apnea. Cardiovascular: Negative for: angina, anticoagulation therapy, arrhythmia, CAD, chest pain, CHF, congenital heart defect, DVT/PE, hyperlipidemia, hypertension, murmur/valvular heart disease and PVD. GI: Negative for: abdominal pain, GERD, liver disease, nausea, vomiting and ETOH >2 drinks/day. : Negative for: dysuria, frequent urination, hematuria, nephrolithiasis and renal failure. Endocrine: Negative for: diabetes mellitus, hyperthyroidism, hypothyroidism and steroid for chronic problem. Hematology: No history of bleeding or clotting disorder. Patient is not taking anti-coagulation or platelet medications. No history of hematological symptoms or problems. Oncology: No history of CA metastasis, chemo within 30 days, or radiotherapy within 90 days. No history of oncological symptoms or problems. Psych: No history of psychiatric symptoms or problems. Musculoskeletal: Negative for joint pain or swelling, back pain or muscle pain. Skin: Negative for lesions, rash and itching. PAST MEDICAL HISTORY Diagnosis Date Diverticulosis Osteoarthritis Shingles PAST SURGICAL HISTORY Procedure Laterality Date HERNIA REPAIR HX HIP SURGERY HX LYSIS OF ADHESIONS abdominal adhesions surgery TOTAL KNEE REPLACEMENT No family history on file. Social History Tobacco Use Smoking status: Former Current packs/day: 0.00 Types: Cigarettes Quit date: 11/04/1996 Years since quittin.3 Passive exposure: Past Smokeless tobacco: Never Substance Use Topics Alcohol use: Yes Comment: 12 drinks a week per pt 03/18/2025 Drug use: No Prior to Admission medications as of 11/25/24 1355 Medication Sig Last Dose Taking calcium carbonate (OS-JARRETT 500) 500 mg calcium (1,250 mg) tablet 1 (one) time each day at the same time Yes diclofenac, EC, (VOLTAREN) 75 mg EC tablet two times a day. Yes cyclobenzaprine (FLEXERIL) 10 mg tablet Yes gabapentin (NEURONTIN) 300 mg capsule three times a day. Yes ELDERBERRY FRUIT ORAL Take by mouth. Yes OXYCODONE HCL/ACETAMINOPHEN (PERCOCET ORAL) Take 1 tablet by mouth once daily. Yes aspirin, enteric coated (ASPIRIN, ENTERIC COATED) 81 mg EC tablet Take 81 mg by mouth once daily. sildenafil (REVATIO) 20 [...] by mouth once daily. Until catheter removed No medication comments found. ALLERGIES No Known Allergies Objective PHYSICAL EXAM: General: Pertinent negatives noted - not alert or oriented and not distressed. Skin: normal color, no rash or lesions. HEENT: Pertinent negatives noted - EOM not intact. Normocephalic, atraumatic. No carotid bruits. Pupils equal and round.. Cardiovascular: regular rate and rhythm, normal S1 and S2, no rub, murmurs, or gallop. Respiratory: normal breath sounds, no wheezes or crackles. Abdomen: Abdomen soft and nontender, no mass. . Extremities: no deformity, no edema or tenderness, no joint swelling or clubbing. Neurological: normal cognition and motor skills. PAIN ASSESSMENT: Pain Pain Level: 8 Pain Location: Back-Lower Description: Sharp, Stabbing Duration Units: Years Frequency: Continuous Intervention/Comfort measure: Cold, Reposition VITALS: BP 146/81 Pulse 89 Temp (Src) 97.5 (Oral) Ht 6' 0 (1.83m) Wt 222 lb 7.1 oz (100.9kg) SpO2 95% BMI 30.16 kg/(m^2). Diagnostic tests reviewed for today's visit: Lab Value Units Date High Low HB No results within date range. HCT No results within date range. WBC No results within date range. PLT No results within date range. NA No results within date range. K No results within date range. GLUC No results within date range. BUN No results within date range. CREAT No results within date range. PTSEC No results within date range. INR No results within date range. APTT No results within date range. ALT No results within date range. AST No results within date range. TBILI No results within date range. TSH No results within date range. Lab Value Units Date High Low HCGQT No results within date range. UHCG No results within date range. HCG, BODY* No results within date range. Lab Value Units Date High Low ABORHD No results within date range. ABSCREEN No results within date range. No results found for: HBA1C No results found for this or any previous visit (from the past 8760 hours). No results found for this or any previous visit (from the past 10082 hours). Instructions Given to Patient: Instructions located in the after visit summary. Patient given verbal and written preop instructions and voices comprehension and compliance. SIGNATURE: Vance Ferreira DO PATIENT NAME: Regan Green DATE: March 18, 2025 TIME: 12:51 PM PAGER/CONTACT #: [facility] [place] 03-18-2025 History and physical note Images from the original note were not included. [facility] Pre[facility]est[facility] HISTORY AND PHYSICAL EXAMINATION SERVICE DATE: 03/18/2025 SERVICE TIME: 1:22 PM PRIMARY CARE PHYSICIAN: Sumanth Light MD Assessment Patient has the following medical conditions which may affect juan-operative course: Radiculopathy, lumbar region CT SPECT scan of the lumbar spine reviewed there is significant uptake at the L4-5 disc level and vacuum disc, at the level above which is also degenerative there is no uptake in the disc and there is some uptake in the bilateral L3-4 facet joints Now scheduled for L4-L5 decompression laminectomy Pt has a hx of lumbar laminectomy L2-L5 in 2023 Patient currently on gabapentin, PRN toradol, cyclobenzaprine, PRN oxycodone and PRN diclofenac for pain control Malignant neoplasm of prostate (HCC) S/p prostatectomy, stable S/P total knee arthroplasty S/p total right knee arthroplasty in 2012, f/b revision same knee ANESTHESIA FINDINGS: Intubation History: No history of difficult intubation. No abnormal airway history Significant Anesthesia Considerations: none Airway History: No history of difficult airway No abnormal airway history Garcia Activity Status Index: METS: Walk indoors, such as around the house (1.75 METs) Walk a block or two on level ground (2.75 METs) Do moderate work around the house, such as vacuuming, sweeping floors, or carrying in groceries (3.50 METs) Climb a flight of stairs or walk up a hill (5.50 METs) DASI Score: 13.5 Patient denies any chest pain or undue shortness of breath with the above physical activity. Clinical Frailty Scale: 2. Well STOP-Bang Score: STOP-Bang Score: 0 ARISCAT Score: Age: 51-80 Preoperative SpO2: 91-95% Preoperative anemia: Yes Duration of surgery: >3 hrs Emergency procedure: No ARISCAT Score: I - PHYSICAL EVALUATION AIRWAY Patient intubated: No. Tracheostomy tube not present Mallampati: II. TM distance: >3 FB. Neck ROM: full ROM without neurological symptoms. Mouth opening: adequate. Short neck: no. Thick neck: no DENTAL Dental findings: teeth intact. II - ANESTHESIA PLAN Beta Radha Monitoring Plan Post Procedure Analgesic Plan Informed Consent Anesthetic risks, benefits, alternatives, personnel and consent discussed: yes. Patient / Responsible Libertarian agrees to proceed: yes Patient / Surrogate agrees to blood products: Yes Prepared for Surgery: optimally prepared for surgery, pending [see comment]. Labs CONSULTS: Patient does not require consults for optimization at this time Planned Anesthetic: The Following Tests/Procedures Have Been Initiated: No orders of the defined types were placed in this encounter. REASON FOR VISIT: Regan Green is a 74 year old male who is scheduled for Procedure(s): TLIF DECOMPRESSION LAMINECTOMY INTERBODY FUSION LUMBAR POSTERIOR (PLIF) LEVEL 1 (N/A) INSERTION INTERBODY BIOMED DEVICE(S) W/ANT INSTR ANCHORING TO DISC SPACE W/INTERBODY FUSION,EA INTERSPACE (N/A) POSTERIOR NON-SEGMENTAL INSTRUMENTATION FOLLOWING LUMBAR FUSION 1 LEVEL PDFI (N/A) AUTOGRAFT FOR SPINE SURGERY ONLY, OBTAINED FROM SAME INCISION (N/A) at the request of @[email or web address]@ for consultation. My final recommendation will be communicated back to the requesting physician by way of shared medical record or letter. Subjective The patient has the following: COVID-19 Immunization Status Current Care Gaps Covid-19 Vaccine ( season) Overdue since 07/05/2024 08/20/2022 Imm Admin: COVID-19 vaccine, age 12+ yr, bivalent ([employer]) 09/18/2021 Imm Admin: COVID-19 original vaccine, full dose, monovalent (MODERNA) 01/18/2021 Imm Admin: COVID-19 original vaccine, full dose, monovalent (MODERNA) Only the first 3 history entries have been loaded, but more history exists. CHIEF COMPLAINT: Pre-Op Evaluation HPI: Pt is a 74 y/o M w/ PMH of prostatic carcinoma, Hx of UTIs, lumbar radiculopathy now scheduled for decompression laminectomy L3-L5 with Dr. Kraus on 03/30/25 REVIEW OF SYSTEMS: General: No weight loss, malaise or fevers. Neurological: Negative for: headaches, impaired sensorium, seizures, TIA and strokes. Respiratory: Negative for: asthma, COPD, current cough, dyspnea, pneumonia within 6 weeks, tobacco use, URI < 2 weeks and obstructive sleep apnea. Cardiovascular: Negative for: angina, anticoagulation therapy, arrhythmia, CAD, chest pain, CHF, congenital heart defect, DVT/PE, hyperlipidemia, hypertension, murmur/valvular heart disease and PVD. GI: Negative for: abdominal pain, GERD, liver disease, nausea, vomiting and ETOH >2 drinks/day. : Negative for: dysuria, frequent urination, hematuria, nephrolithiasis and renal failure. Endocrine: Negative for: diabetes mellitus, hyperthyroidism, hypothyroidism and steroid for chronic problem. Hematology: No history of bleeding or clotting disorder. Patient is not taking anti-coagulation or platelet medications. No history of hematological symptoms or problems. Oncology: No history of CA metastasis, chemo within 30 days, or radiotherapy within 90 days. No history of oncological symptoms or problems. Psych: No history of psychiatric symptoms or problems. Musculoskeletal: Negative for joint pain or swelling, back pain or muscle pain. Skin: Negative for lesions, rash and itching. PAST MEDICAL HISTORY Diagnosis Date Diverticulosis Osteoarthritis Shingles PAST SURGICAL HISTORY Procedure Laterality Date HERNIA REPAIR HX HIP SURGERY HX LYSIS OF ADHESIONS abdominal adhesions surgery TOTAL KNEE REPLACEMENT No family history on file. Social History Tobacco Use Smoking status: Former Current packs/day: 0.00 Types: Cigarettes Quit date: 11/04/1996 Years since quittin.3 Passive exposure: Past Smokeless tobacco: Never Substance Use Topics Alcohol use: Yes Comment: 12 drinks a week per pt 03/18/2025 Drug use: No Prior to Admission medications as of 11/25/24 1355 Medication Sig Last Dose Taking calcium carbonate (OS-JARRETT 500) 500 mg calcium (1,250 mg) tablet 1 (one) time each day at the same time Yes diclofenac, EC, (VOLTAREN) 75 mg EC tablet two times a day. Yes cyclobenzaprine (FLEXERIL) 10 mg tablet Yes gabapentin (NEURONTIN) 300 mg capsule three times a day. Yes ELDERBERRY FRUIT ORAL Take by mouth. Yes OXYCODONE HCL/ACETAMINOPHEN (PERCOCET ORAL) Take 1 tablet by mouth once daily. Yes aspirin, enteric coated (ASPIRIN, ENTERIC COATED) 81 mg EC tablet Take 81 mg by mouth once daily. sildenafil (REVATIO) 20 [...] by mouth once daily. Until catheter removed No medication comments found. ALLERGIES No Known Allergies Objective PHYSICAL EXAM: General: Pertinent negatives noted - not alert or oriented and not distressed. Skin: normal color, no rash or lesions. HEENT: Pertinent negatives noted - EOM not intact. Normocephalic, atraumatic. No carotid bruits. Pupils equal and round.. Cardiovascular: regular rate and rhythm, normal S1 and S2, no rub, murmurs, or gallop. Respiratory: normal breath sounds, no wheezes or crackles. Abdomen: Abdomen soft and nontender, no mass. . Extremities: no deformity, no edema or tenderness, no joint swelling or clubbing. Neurological: normal cognition and motor skills. PAIN ASSESSMENT: Pain Pain Level: 8 Pain Location: Back-Lower Description: Sharp, Stabbing Duration Units: Years Frequency: Continuous Intervention/Comfort measure: Cold, Reposition VITALS: BP 146/81 Pulse 89 Temp (Src) 97.5 (Oral) Ht 6' 0 (1.83m) Wt 222 lb 7.1 oz (100.9kg) SpO2 95% BMI 30.16 kg/(m^2). Diagnostic tests reviewed for today's visit: Lab Value Units Date High Low HB No results within date range. HCT No results within date range. WBC No results within date range. PLT No results within date range. NA No results within date range. K No results within date range. GLUC No results within date range. BUN No results within date range. CREAT No results within date range. PTSEC No results within date range. INR No results within date range. APTT No results within date range. ALT No results within date range. AST No results within date range. TBILI No results within date range. TSH No results within date range. Lab Value Units Date High Low HCGQT No results within date range. UHCG No results within date range. HCG, BODY* No results within date range. Lab Value Units Date High Low ABORHD No results within date range. ABSCREEN No results within date range. No results found for: HBA1C No results found for this or any previous visit (from the past 8760 hours). No results found for this or any previous visit (from the past 84580 hours). Instructions Given to Patient: Instructions located in the after visit summary. Patient given verbal and written preop instructions and voices comprehension and compliance. SIGNATURE: Vance Ferreira DO PATIENT NAME: Regan Green DATE: March 18, 2025 TIME: 12:51 PM PAGER/CONTACT #: documented in this encounter [facility] [place] 03-17-2025 History of Present illness Narrative Images from the original note were not included. Behavioral Medicine Group Session [facility] for Surgical Success/Empowered Relief for Surgery Patient Name: Regan Green CC#: [id number] Date of service: March 17, 2025 I have communicated my name and active licensure. The patient's identity and physical location were verified at the time of this visit. Either the patient or their legal customer engagement representative has been informed of the risks and benefits of -- and alternatives to -- treatment through virtual visit and consents to proceed with the session remotely. Patient location: Regan Green [id number] [address] [place] [address] Patient Entered Questionnaires 11/18/2024 01/03/2025 03/17/2025 PROMIS CAT Fatigue PROMIS Fatigue T-Score 50 (within normal limits) 56 (mild) 51 (within normal limits) PROMIS Fatigue Percentile 50 27 46 11/18/2024 01/03/2025 03/17/2025 PROMIS CAT Pain Interference PROMIS Pain Interference T-Score (range: 10 - 90) 67 (moderate) 66 (moderate) 67 (moderate) PROMIS Pain Interference Percentile 4 5 4 11/18/2024 01/03/2025 03/17/2025 PROMIS CAT Satisfaction with Social Roles PROMIS - Satisfaction with Participation in Social Roles T-Score 45 (Average) 40 (Low) 43 (Average) PROMIS Social Role Satisfaction Percentile 31 16 24 11/18/2024 01/03/2025 03/17/2025 PROMIS CAT Sleep Disturbance PROMIS Sleep Disturbance T-Score 59 (mild) 60 (mild) 56 (mild) PROMIS Sleep Disturbance Percentile 18 16 27 02/08/2017 11/18/2024 03/14/2025 PROMIS Global Health Scale Physical Health Percentile 31 15 Mental Health Percentile 63 53 34 Patient-reported 02/08/2017 11/18/2024 03/14/2025 PROMIS Global Health - (T-Scores - the mean of general population = 50. Five points is a clinically meaningful difference.) Physical T-Score 50.8 44.9 39.8 Mental T-Score 53.3 53.3 50.8 45.8 Multiple values from one day are sorted in reverse-chronological order Percentiles provide an indication of how the patient's score ranks in relation to the general population. Higher percentile rankings indicate better function/quality of life. 50th percentile is the average of the general population and indicates half of respondents had a worse score. > 31st percentile is within normal limits or better * < 31st percentile is at least SD worse than population, which may be clinically relevant < 16th percentile is at least 1 SD worse than population and warrants attention 25 reflects moderate/average levels of pain catastrophizing scores above 30 considered high risk (associated with more pain, lessened treatment response, more depression) 11/18/2024 01/03/2025 03/17/2025 PHQ-9 PHQ-2 Score 1 0 0 PHQ-9 Score 5 (Mild Depression) 3 (None-Minimal Depression) 2 (None-Minimal Depression) Subjective: Patient participated in a 2 hour cognitive and behavioral group focused on coping with pain in the perioperative period for spine surgery. The goal of the following treatment is to improve the patient's health and well-being via cognitive, behavioral, social and/or psychophysiological procedures designed to ameliorate pain related problems. Group members received an orientation to the group and discussed their feelings related to their upcoming or recently had spine surgery. Group materials were distributed including an assessment form to evaluate Pain Catastrophizing and to target negative thought patterns related to pain. Additional materials included a personalized relapse prevention plan and goal setting sheet. Group session included psychoeducation related to the pain and stress response, experiential practice/learning of relaxation technique of deep breathing, orientation to the cognitive and behavioral model of pain and skill building (reframing negative thoughts, de-escalating negative emotions and identifying soothing actions). All of these skills were connected to the experience of spine surgery Objective: Affect is appropriate. The patient paid good attention during the group and did verbalize understanding of the material presented. Medications: Current Outpatient Medications Medication Sig calcium carbonate (OS-JARRETT 500) 500 mg calcium [...] by mouth once daily. Until catheter removed No current facility-administered medications for this visit. A: (M43.16) Spondylolisthesis of lumbar region (primary encounter diagnosis) P: Behavioral pain management skills to optimize spine surgery were taught and materials sent by My Chart Marek Espinoza PSYD Start time 1p Stop time 2:40p documented in this encounter [facility] [place] 03-17-2025 Note HNO ID: [id number] Author: MAREK ESPINOZA PSYD Service: ? Author Type: Psychologist Type: Progress Notes Filed: 03/21/2025 14:31 Note Text: Behavioral Medicine Group Session [facility] for Surgical Success/Empowered Relief for Surgery Patient Name: Regan Green CC#: [id number] Date of service: March 17, 2025 I have communicated my name and active licensure. The patient's identity and physical location were verified at the time of this visit. Either the patient or their legal customer engagement representative has been informed of the risks and benefits of -- and alternatives to -- treatment through virtual visit and consents to proceed with the session remotely. Patient location: Regan Green [id number] [address] [place] [id number] Patient Entered Questionnaires 11/18/2024 01/03/2025 03/17/2025 PROMIS CAT Fatigue PROMIS Fatigue T-Score 50 (within normal limits) 56 (mild) 51 (within normal limits) PROMIS Fatigue Percentile 50 27 46 11/18/2024 01/03/2025 03/17/2025 PROMIS CAT Pain Interference PROMIS Pain Interference T-Score (range: 10 - 90) 67 (moderate) 66 (moderate) 67 (moderate) PROMIS Pain Interference Percentile 4 5 4 11/18/2024 01/03/2025 03/17/2025 PROMIS CAT Satisfaction with Social Roles PROMIS - Satisfaction with Participation in Social Roles T-Score 45 (Average) 40 (Low) 43 (Average) PROMIS Social Role Satisfaction Percentile 31 16 24 11/18/2024 01/03/2025 03/17/2025 PROMIS CAT Sleep Disturbance PROMIS Sleep Disturbance T-Score 59 (mild) 60 (mild) 56 (mild) PROMIS Sleep Disturbance Percentile 18 16 27 02/08/2017 11/18/2024 03/14/2025 PROMIS Global Health Scale Physical Health Percentile 31 15 Mental Health Percentile 63 53 34 Patient-reported 02/08/2017 11/18/2024 03/14/2025 PROMIS Global Health - (T-Scores - the mean of general population = 50. Five points is a clinically meaningful difference.) Physical T-Score 50.8 44.9 39.8 Mental T-Score 53.3 53.3 50.8 45.8 Multiple values from one day are sorted in reverse-chronological order Percentiles provide an indication of how the patient's score ranks in relation to the general population. Higher percentile rankings indicate better function/quality of life. 50th percentile is the average of the general population and indicates half of respondents had a worse score. > 31st percentile is within normal limits or better * < 31st percentile is at least ? SD worse than population, which may be clinically relevant < 16th percentile is at least 1 SD worse than population and warrants attention 25 reflects moderate/average levels of pain catastrophizing scores above 30 considered high risk (associated with more pain, lessened treatment response, more depression) 11/18/2024 01/03/2025 03/17/2025 PHQ-9 PHQ-2 Score 1 0 0 PHQ-9 Score 5 (Mild Depression) 3 (None-Minimal Depression) 2 (None-Minimal Depression) Subjective: Patient participated in a 2 hour cognitive and behavioral group focused on coping with pain in the perioperative period for spine surgery. The goal of the following treatment is to improve the patient's health and well-being via cognitive, behavioral, social and/or psychophysiological procedures designed to ameliorate pain related problems. Group members received an orientation to the group and discussed their feelings related to their upcoming or recently had spine surgery. Group materials were distributed including an assessment form to evaluate Pain Catastrophizing and to target negative thought patterns related to pain. Additional materials included a personalized relapse prevention plan and goal setting sheet. Group session included psychoeducation related to the pain and stress response, experiential practice/learning of relaxation technique of deep breathing, orientation to the cognitive and behavioral model of pain and skill building (reframing negative thoughts, de-escalating negative emotions and identifying soothing actions). All of these skills were connected to the experience of spine surgery Objective: Affect is appropriate. The patient paid good attention during the group and did verbalize understanding of the material presented. Medications: Current Outpatient Medications Medication Sig calcium carbonate (OS-JARRETT 500) 500 mg calcium [...] (for bladder spasms). ketorolac (TORADOL) 10 mg (more content not included)... [facility] 03-10-2025 Telephone encounter Note Surgery Planning Name: Regan Green Age: [age] year old Wt: 102.1 kg (225 lb) BMI: 33.23 kg/(m^2) Patient's Home Address: [address] [place] [id number] Diagnosis: Spondylolisthesis of lumbar region Procedure: L4/5 TLIF Special needs: TLIF Cage Length of Surgery:4 Last In-person/VV appointment w/ Surgeon:01/09/25 PMH: PAST MEDICAL HISTORY Diagnosis Date Diverticulosis Osteoarthritis Shingles PSH: PAST SURGICAL HISTORY Procedure Laterality Date HERNIA REPAIR HX HIP SURGERY HX LYSIS OF ADHESIONS abdominal adhesions surgery TOTAL KNEE REPLACEMENT Nicotine: Tobacco Use: Types: Cigarettes HGBA1C: No results found for: HBA1C CBC: Hemoglobin (g/dL) Date Value 03/12/2017 10.1 Hematocrit (%) Date Value 03/12/2017 30.1 WBC (k/uL) Date Value 03/12/2017 9.20 Platelet Count (k/uL) Date Value 03/12/2017 258 Optimization Labs:Blood Management and Nicotine testing Images: XR:NA MRI:NA CT (ALIF):NA Blood Thinner: No Consults: Type(s):None Provider: NA Conservative Therapy: Epidural steroid injections;Muscle relaxers;Membrane stabilizers;Opioids Gabapentin 300mg TID, helps Cyclobenzaprine, 10mg TID Percocet 5mg BID, helps PT notes obtained if completed:NA Other Medication/Concerns: NA Transplant History:No Implants: No Orders Nicotine X HGBA1C N/A Blood MGMT X Pre-op Imaging N/A Surg Elective X PACC X MRSA Swab X Urology/CT Lumbar N/A Trek X Team MC X Education MC X [facility] 03-10-2025 Miscellaneous Notes Surgery Planning Name: Regan Geren Age: [age] year old Wt: 102.1 kg (225 lb) BMI: 33.23 kg/(m^2) Patient's Home Address: [address] [place] [address] Diagnosis: Spondylolisthesis of lumbar region Procedure: L4/5 TLIF Special needs: TLIF Cage Length of Surgery:4 Last In-person/VV appointment w/ Surgeon:01/09/25 PMH: PAST MEDICAL HISTORY Diagnosis Date Diverticulosis Osteoarthritis Shingles PSH: PAST SURGICAL HISTORY Procedure Laterality Date HERNIA REPAIR HX HIP SURGERY HX LYSIS OF ADHESIONS abdominal adhesions surgery TOTAL KNEE REPLACEMENT Nicotine: Tobacco Use: Types: Cigarettes HGBA1C: No results found for: HBA1C CBC: Hemoglobin (g/dL) Date Value 03/12/2017 10.1 Hematocrit (%) Date Value 03/12/2017 30.1 WBC (k/uL) Date Value 03/12/2017 9.20 Platelet Count (k/uL) Date Value 03/12/2017 258 Optimization Labs:Blood Management and Nicotine testing Images: XR:NA MRI:NA CT (ALIF):NA Blood Thinner: No Consults: Type(s):None Provider: NA Conservative Therapy: Epidural steroid injections;Muscle relaxers;Membrane stabilizers;Opioids Gabapentin 300mg TID, helps Cyclobenzaprine, 10mg TID Percocet 5mg BID, helps PT notes obtained if completed:NA Other Medication/Concerns: NA Transplant History:No Implants: No Orders Nicotine X HGBA1C N/A Blood MGMT X Pre-op Imaging N/A Surg Elective X PACC X MRSA Swab X Urology/CT Lumbar N/A Trek X Team MC X Education MC X documented in this encounter [facility] 01-28-2025 Telephone encounter Note Per SY w/ [...] RNCC for scheduling upon return to office. [facility] 01-28-2025 Miscellaneous Notes Per SY w/ MS [...] not found Best number to reach caller: [phone] and [phone] Best time to reach caller: anytime Is it OK to leave a detailed voice message? Yes Kaykay Gandhi documented in this encounter [facility] 01-28-2025 Telephone encounter Note Call received for [...] not found Best number to reach caller: [phone] and [phone] Best time to reach caller: anytime Is it OK to leave a detailed voice message? Yes Kaykay Gandhi [facility] 01-09-2025 Note HNO ID: [id number] Author: JOHNATHAN KRAUS MD Service: ? Author Type: Physician Type: Progress Notes Filed: 01/09/2025 09:51 Note Text: SPINE SURGERY ESTABLISHED VISIT This is a virtual visit using Kizoom Zoom Video Visit. It required patient-provider interaction for the medical decision making as documented below. I have communicated my name and active licensure. The patient's identity and physical location were verified at the time of this visit. Either the patient or their legal customer engagement representative has been informed of the risks [...] approach the L3-4 (more content not included)... [facility] 01-09-2025 History of Present illness Narrative Images from the original note were not included. SPINE SURGERY ESTABLISHED VISIT This is a virtual visit using Kizoom Zoom Video Visit. It required patient-provider interaction for the medical decision making as documented below. I have communicated my name and active licensure. The patient's identity and physical location were verified at the time of this visit. Either the patient or their legal customer engagement representative has been informed of the risks [...] patient or the patient s personal customer engagement representative. The patient intends to call the office with a decison. Shared decision making occurred while obtaining informed consent. 1. No Orders Entered Today 2. Follow up: Following above Imaging Ordered: None time 30 min SIGNATURE: Johnathan Kraus MD PATIENT NAME: Regan Green DATE: January 09, 2025 TIME: 9:48 AM PAGER: documented in this encounter [facility] 12-09-2024 History of Present illness Narrative RADIOLOGY [...] PATIENT PRESENTS WITH AN IMPLANTABLE OR ATTACHED CONTACT ASSEMBLER: No CREATININE: Creatinine Date Value Ref Range [...] 1025 PATIENT DISCHARGED TO: Ambulatory patient, left [place] department area. Is this a therapy: No A Diagnostic radioactive procedure has taken place, with no further precautions necessary other than routine body substance precautions. More information regarding radiation safety can be found using this link: [email or web address] [email or web address]-%20Diagnostic%20Nuclear %20Medicine%[email or web address] SIGNATURE: Sorin Shane PATIENT NAME: Regan Green DATE: December 09, 2024 TIME: 10:48 AM PAGER/CONTACT #: documented in this encounter [facility] 12-09-2024 Note HNO ID: [id number] Author: CLAUDIA CHOWDHURY Nuclear Tech Service: Nuclear Medicine Author Type: Bridge Operator Slip Type: Progress Notes Filed: 12/09/2024 10:50 Note [...] PATIENT PRESENTS WITH AN IMPLANTABLE OR ATTACHED CONTACT ASSEMBLER: No CREATININE: Creatinine Date Value Ref Range [...] 1025 PATIENT DISCHARGED TO: Ambulatory patient, left [place] department area. Is this a therapy: No A Diagnostic radioactive procedure has taken place, with no further precautions necessary other than routine body substance precautions. More information regarding radiation safety can be found using this link: [email or web address] 20Diagnostic%20Nuclear%20Medicine% 20Procedures.pdf SIGNATURE: Claudia Chowdhury [employer] PATIENT NAME: Regan Green DATE: December 09, 2024 TIME: 10:48 AM PAGER/CONTACT #: [facility] 11-25-2024 History of Present illness Narrative Images from the original note were not included. SPINE SURGERY NEW PATIENT PCP: Sumanth Light MD REFERRING PROVIDER: Lisa Palm [address] [facility] [address] 30 minutes Assessment/Plan No diagnosis found. Regan [...] disc space narrowing. documented in this encounter [facility] 11-25-2024 Note HNO ID: [id number] Author: JOHNATHAN KRAUS MD Service: ? Author Type: Physician Type: Progress Notes Filed: 12/01/2024 07:07 Note Text: SPINE SURGERY NEW PATIENT PCP: Sumanth Light MD REFERRING PROVIDER: Lisa Palm [address] [facility] [address] 30 minutes Assessment/Plan No diagnosis found. Regan [...] 5-14 Normal: PHQ-9 < 5 Data from F Epic on prior therapies: Last PT session: [...] Not tested. SPURLING' (more content not included)... [facility] 08-11-2024 History of Present illness Narrative Images from the original note were not included. [address] [facility] [id number] Subjective: Regan Green is a 74 y.o. male who presents for a Medicare Annual Wellness exam. The following portions of the patient's history were reviewed and updated as appropriate: Health Risk Assessment, allergies, past medical history, past surgical history, social history, family history, and immunization history Accompanied by: self History Provided By: self Language and Other Communication Barriers: Primary Language Spoken: Kazakh Highest Level of Education Completed: high school [...] Do you have a durable power of corporate attorney?: Yes Fall Risk Fall Risk Assessment [...] with pain 02/08/2020 Malignant neoplasm of prostate ([place]) 02/07/2017 Adenocarcinoma of prostate ([place]) 11/20/2016 Past Medical History: Diagnosis Date Cancer of prostate ([place]) 2017 prostatectomy Diverticulitis Diverticulosis Fecal impaction ([place]) Inflammation of sacroiliac joint ([facility]) Knee pain Low back pain Lumbar disc disorder Neurogenic claudication 12/17/2023 Osteoarthritis SBO (small bowel obstruction) ([place]) 10/04/2023 Shingles UTI (urinary tract infection) Varicose veins of right lower extremity with pain 02/08/2020 Visual impairment 12/20/2023 Past Surgical History: Procedure Laterality Date ABDOMINAL ADHESION SURGERY COLONOSCOPY COLONOSCOPY N/A 03/25/2023 Performed by Johnathan Campbell DO at [facility] HERNIA REPAIR Left inguinal HIP SURGERY Left [...] The method used for this test is Deeajy CSID DXI chemiluminescent immunoassay. Values obtained by different [...] includes TSH FT4; Future Adenocarcinoma of prostate ([facility]) Follow Up: Consider inversion table fasting labs documented in this encounter [facility] 08-11-2024 Instructions Sumanth Hill MD - 08/11/2024 [...] services: Not applicable documented in this encounter [facility] 07-27-2024 Miscellaneous Notes Received a request for a retro C9 for PT for patient. Patient's care and surgery with us has never been under a workers comp claim. Call to Chuckie Leyva [phone] advising his of this and call back number provided if he has any additional questions. Fax we received will be scanned into chart. documented in this encounter [facility] 07-27-2024 Telephone encounter Note Received a request for a retro C9 for PT for patient. Patient's care and surgery with us has never been under a workers comp claim. Call to Chuckie [phone], LMOM advising his of this and call back number provided if he has any additional questions. Fax we received will be scanned into chart. [facility] Work Phone: 07-03-2024 Note HNO ID: [id number] Author: LUANNE ELLIOTT APRN.HARDWARE DEVELOPER Service: ? Author Type: Nurse Practitioner Type: Progress Notes Filed: 07/03/2024 16:12 Note Text: Per Triage: Regan Green is a 74 year old male that requests evaluation of lumbar spine. Per review, they have symptoms of right leg pain from right knee to ankle numbness and weakness Patient lives in [facility] [address] Gregorio [...] of imaging with him and injection history [facility] 07-03-2024 History of Present illness Narrative Per Triage: Regan Green is a 74 year old male that requests evaluation of lumbar spine. Per review, they have symptoms of right leg pain from right knee to ankle numbness and weakness Patient lives in [facility] [address] Gregorio [...] Provider or Pain Management Provider at [facility]? No If answer is YES please [...] the facility where the MRI/CT/myelogram was completed: [facility] [address] [place] [address] MRI/CT/myelogram viewable in Epic: No If not, please provide [phone] to fax in imaging reports for review. Also, please inform patient to hand carry imaging disc to appointment. XR (spine) within 12 months: Yes If YES, please ask for the name/address of the facility where the XR was completed: [facility] [address] [place] [address] Dr. Robertson's patients: Have you had previous [...] injections and/or physical therapy was completed PT: [facility] [address] [place] [address] Injections: [facility] [address] [place] [address] Have you tried any other kinds of [...] the surgery was completed: 12/25/2023, Laminectomy L2-L5 [facility] [address] [place] [address] Additional Comments [phone] documented in this encounter [facility] 07-01-2024 Note HNO ID: [id number] Author: ?, ?, ? Service: ? Author Type: ? Type: Progress Notes Filed: 07/03/2024 16:12 Note Text: Patient name: Regan Green Are you being referred by a [facility] Provider or Pain Management Provider at [facility]? No If answer is YES please [...] the facility where the MRI/CT/myelogram was completed: [facility] [address] [place] [address] MRI/CT/myelogram viewable in Epic: No If not, please provide [phone] to fax in imaging reports for review. Also, please inform patient to hand carry imaging disc to appointment. XR (spine) within 12 months: Yes If YES,? please ask for the name/address of the facility where the XR was completed: [facility] [address] [place] [address] Dr. Robertson's patients: Have you had previous [...] injections and/or physical therapy was completed PT: [facility] [address] [facility] [address] Injections: [facility] [address] [place] [address] Have you tried any other kinds of [...] the surgery was completed: 12/25/2023, Laminectomy L2-L5 [address] [address] Additional Comments [phone] [facility] 06-04-2024 History of Present illness Narrative Images from the original note were not included. [facility] [address] [place] [address], [address] [place] [address] * CHART NOTE ? 06/04/2024 Patient: Regan Green 1950 [id number] Nurse Practitioner: Carl Sosa HARDWARE DEVELOPER Physician: Mayco Nolen MD, FAANS IMPRESSION / [...] to the patient's understanding. 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 Patient does not use an assistive device for ambulation. Patient is not diabetic and former smoker. PAST MEDICAL HISTORY Past Medical History: Diagnosis Date Cancer of prostate ([facility]) 2017 prostatectomy Diverticulitis Diverticulosis Fecal impaction ([facility]) Inflammation of sacroiliac joint ([facility]) Knee pain Low back pain Lumbar disc disorder Neurogenic claudication 12/17/2023 Osteoarthritis SBO (small bowel obstruction) ([facility]) 10/04/2023 Shingles UTI (urinary tract infection) Varicose veins of right lower extremity with pain 02/08/2020 Visual impairment 12/20/2023 PAST SURGICAL HISTORY Past Surgical History: Procedure Laterality Date ABDOMINAL ADHESION SURGERY COLONOSCOPY COLONOSCOPY N/A 03/25/2023 Performed by Johnathan Campbell DO at [facility] HERNIA REPAIR Left inguinal HIP SURGERY Left [...] record of the patient encounter. Inadvertent computerized doctorate of chiropractic errors related to syntax, spelling, homophones, and/or [...] Kirk 06/04/24 1157 documented in this encounter [facility] 06-04-2024 Instructions AINSLEY Szymanski - 06/04/2024 9:45 AM EDT Patient was seen today by Dr. Nolen. Patient will call in regards to Lumbar Fusion. JA documented in this encounter [facility] 04-28-2024 History of Present illness Narrative Images from the original note were not included. [address] [place] [address] [address] [facility] [id number] Patient: Regan Green Date of : 1950 Encounter Date: 04/28/2024 History of Present Illness: Chief Complaint: Follow up The patient is a 74 y.o. male, an established patient, and is here for He was diagnosed with adenocarcinoma prostate [place] 7 with 2 of 12 cores positive in 2017. He underwent open radical prostatectomy with bilateral pelvic lymph node dissection at [facility] in 2017. Final path T2N0. 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 02/08/2020 Visual impairment 12/20/2023 Past Surgical History: Procedure Laterality Date ABDOMINAL ADHESION SURGERY COLONOSCOPY COLONOSCOPY N/A 03/25/2023 Performed by Johnathan Campbell DO at [facility] HERNIA REPAIR Left inguinal HIP SURGERY Left LAMINECTOMY LUMBAR MULTI LEVEL / L2-L5 N/A 12/25/2023 Performed by Mayco Nolen MD at [facility] PROSTATE BIOPSY PROSTATECTOMY REVISION TOTAL KNEE [...] orders for this visit: Adenocarcinoma of prostate ([facility]) Problem List Genitourinary Adenocarcinoma of prostate ([facility]) - Primary Overview T1c adenocarcinoma prostate [place] 3 + 3 = 6 5% and [...] prostatectomy with bilateral pelvic lymph node dissection [facility]. Final pathology T2 N0 04/16/23: psa today. Recheck annually. 04/28/24: PSA pending today. Assuming his PSA today remains undetectable he should continue to get his PSA checked annually. He is more than 5 years out from surgery. He was planning to have his PSA drawn annually with his wellness exam. If it becomes detectable or urinary symptoms worsen he will return Follow-up: Juan F Heller MD This note was created with the assistance of a speech recognition program. While intending to generate a timely document that accurately reflects the content of the visit, no guarantee can be provided that every grammatical or spelling mistake has been or will be identified or corrected. Thank you for your understanding. documented in this encounter [facility] 04-27-2024 Miscellaneous Notes This nurse called the Pt. To remind him to get his PSA drawn for his appointment with MD Brian tomorrow. Pt. Did not answer, message was left on his answering machine. documented in this encounter [facility] 04-27-2024 Telephone encounter Note This nurse called the Pt. To remind him to get his PSA drawn for his appointment with MD Brian tomorrow. Pt. Did not answer, message was left on his answering machine. [facility] 04-23-2024 History of Present illness Narrative Images from the original note were not included. [facility] [address] [place] [address], [address] [place] [address] * CHART NOTE ? 04/23/2024 Patient: Regan Green 1950 [id number] Nurse Practitioner: Carl Sosa, HARDWARE DEVELOPER Physician: Mayco Nolen MD, FAANS IMPRESSION / [...] is agreeable to them. 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 Patient does not use an assistive device for ambulation. Patient is not diabetic and former smoker. 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 HERNIA REPAIR Left inguinal HIP SURGERY Left [...] record of the patient encounter. Inadvertent computerized doctorate of chiropractic errors related to syntax, spelling, homophones, and/or inaudibility may be present. Scribe Statement: Scribed for and in the presence of Mayco Nolen MD by Joshua Higginbotham. Provider Statement: I, Mayco Nolen MD personally performed the services described in the documentation, as scribed by Joshua Higginbotham in my presence, and it is both accurate and complete documented in this encounter [facility] 04-23-2024 Instructions Desirae Dawn - 04/23/2024 9:30 AM EDT Patient seen today by Dr. Nolen Referral to Physical and aquatic therapy Referral to Pain management L4-5 Medrol dose pack Flexeril 10 mg Xray lumbar spine FLEX / EXT Patient to call to schedule follow up in 4 weeks KM documented in this encounter [facility] 02-12-2024 History of Present illness Narrative Images from the original note were not included. [facility] [address] [place] [address], [address] [place] [address] * CHART NOTE ? 02/12/2024 Patient: Regan Green 1950 [id number] Physician: Carl Sosa, HARDWARE DEVELOPER CHIEF COMPLAINT Post op. HISTORY OF PRESENT [...] weakness in the RLE. 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 Inadvertent computerized doctorate of chiropractic errors related to syntax, spelling, homophones, and/or inaudibility may be present. JOSEMANUEL Kirk 02/12/24 1030 documented in this encounter [facility] 02-12-2024 Instructions Desirae Dawn - 02/12/2024 9:15 AM EDT Patient was seen today by Misti. Lumbar flexion-extension x-rays. Medrol Dosepak. Refer to physical therapy. Lumbar MRI without contrast. Patient will follow up with Dr. Nolen, Neurosurgeon, once MRI is complete. documented in this encounter [facility] 12-27-2023 Nurse Note Discharge instructions provided to patient. Patient verbalized understanding, and denies any further concerns at this time. IV removed at time of discharged. Patient gathered belongings from room. Patient in no apparent distress. Patient taken to entrance b in a wheelchair with . [facility] 12-27-2023 Nurse Note Discharge instructions provided to patient. Patient verbalized understanding, and denies any further concerns at this time. IV removed at time of discharged. Patient gathered belongings from room. Patient in no apparent distress. Patient taken to entrance b in a wheelchair with . documented in this encounter [facility] 12-27-2023 Plan of care note Problem: Pain Goal: Patient goal is pain score less than 4, able to rest, and participant in treatment plan as appropriate Description: INTERVENTIONS: 1. Encourage patient or legal customer engagement representative to report early pain and ask [...] policy 9. Teach patient or legal customer engagement representative interventions for comforting 12/27/2023 1259 by [...] the bedside 7. Instruct patient/ patient customer engagement representative about use of safety devices 8. Include patient/ patient customer engagement representative in decisions related to safety 12/27/2023 [...] technique 7. Identify and instruct patient/patient customer engagement representative in use of appropriate isolation precautions for identified infection/symptoms 8. Provide and discuss with patient/patient customer engagement representative on educational MDRO sheet 9. Encourage and monitor nutritional status daily and consult broadband installer if indicated 10. Implement neutropenic guidelines as [...] ongoing. Problem: Knowledge Deficit Goal: Patient/patient customer engagement representative demonstrates understanding of disease process, treatment [...] be free from fall Description: Interventions: 1. [place] to environment 2. Hourly rounds addressing the [...] footwear 11. Teach patient and patient customer engagement representative to maintain environment for safety and [...] walker) within reach 19. Request patient customer engagement representative bring adaptive equipment/mobility aids from home or obtain and provide as needed 20. Consult pharmacy regarding effects of med's affecting mobility, cognition, and alternatives 21. Obtain physician order for PT if risk factors associated with mobility are present 22. Obtain physician order for OT as appropriate 23. Utilize diversional activities 24. Educate patient and patient customer engagement representative how to maintain a safe environment during visitation times (notify nurse prior to leaving bedside) 25. Consider appropriateness of medical or non-medical illustrator 26. Set up voiding schedule as appropriate [...] progress towards goal: Plan of care ongoing. [facility] 12-27-2023 Miscellaneous Notes Problem: Pain Goal: Patient goal is pain score less than 4, able to rest, and participant in treatment plan as appropriate Description: INTERVENTIONS: 1. Encourage patient or legal customer engagement representative to report early pain and ask [...] policy 9. Teach patient or legal customer engagement representative interventions for comforting 12/27/2023 1259 by IMREILLE Braswell Outcome: Adequate for Discharge 12/27/2023 1008 [...] the bedside 7. Instruct patient/ patient customer engagement representative about use of safety devices 8. Include patient/ patient customer engagement representative in decisions related to safety 12/27/2023 [...] technique 7. Identify and instruct patient/patient customer engagement representative in use of appropriate isolation precautions for identified infection/symptoms 8. Provide and discuss with patient/patient customer engagement representative on educational MDRO sheet 9. Encourage and monitor nutritional status daily and consult broadband installer if indicated 10. Implement neutropenic guidelines as [...] ongoing. Problem: Knowledge Deficit Goal: Patient/patient customer engagement representative demonstrates understanding of disease process, treatment [...] Score of =/> 25 or indicated by [facility] Assessment Goal: Patient should be free from fall Description: Interventions: 1. [place] to environment 2. Hourly rounds addressing the [...] footwear 11. Teach patient and patient customer engagement representative to maintain environment for safety and [...] walker) within reach 19. Request patient customer engagement representative bring adaptive equipment/mobility aids from home or obtain and provide as needed 20. Consult pharmacy regarding effects of med's affecting mobility, cognition, and alternatives 21. Obtain physician order for PT if risk factors associated with mobility are present 22. Obtain physician order for OT as appropriate 23. Utilize diversional activities 24. Educate patient and patient customer engagement representative how to maintain a safe environment during visitation times (notify nurse prior to leaving bedside) 25. Consider appropriateness of medical or non-medical illustrator 26. Set up voiding schedule as appropriate [...] INTERVENTIONS: 1. Encourage patient or legal customer engagement representative to report early pain and ask [...] policy 9. Teach patient or legal customer engagement representative interventions for comforting Outcome: Progressing Note: [...] the bedside 7. Instruct patient/ patient customer engagement representative about use of safety devices 8. Include patient/ patient customer engagement representative in decisions related to safety Outcome: [...] technique 7. Identify and instruct patient/patient customer engagement representative in use of appropriate isolation precautions for identified infection/symptoms 8. Provide and discuss with patient/patient customer engagement representative on educational MDRO sheet 9. Encourage and monitor nutritional status daily and consult broadband installer if indicated 10. Implement neutropenic guidelines as needed 11. Review exposure to history of communicable disease and recent travel history on admission 12. Encourage annual influenza vaccine 13. Encourage pneumonia vaccine Outcome: Progressing Note: Evaluation of progress towards goal: Patient denies fever. No purulent drainage noted at site. Plan of care ongoing. Problem: Knowledge Deficit Goal: Patient/patient customer engagement representative demonstrates understanding of disease process, treatment [...] Score of =/> 25 or indicated by [facility] Assessment Goal: Patient should be free from fall Description: Interventions: 1. [place] to environment 2. Hourly rounds addressing the [...] footwear 11. Teach patient and patient customer engagement representative to maintain environment for safety and [...] walker) within reach 19. Request patient customer engagement representative bring adaptive equipment/mobility aids from home or obtain and provide as needed 20. Consult pharmacy regarding effects of med's affecting mobility, cognition, and alternatives 21. Obtain physician order for PT if risk factors associated with mobility are present 22. Obtain physician order for OT as appropriate 23. Utilize diversional activities 24. Educate patient and patient customer engagement representative how to maintain a safe environment during visitation times (notify nurse prior to leaving bedside) 25. Consider appropriateness of medical or non-medical illustrator 26. Set up voiding schedule as appropriate [...] INTERVENTIONS: 1. Encourage patient or legal customer engagement representative to report early pain and ask [...] policy 9. Teach patient or legal customer engagement representative interventions for comforting Outcome: Progressing Note: [...] the bedside 7. Instruct patient/ patient customer engagement representative about use of safety devices 8. Include patient/ patient customer engagement representative in decisions related to safety Outcome: [...] technique 7. Identify and instruct patient/patient customer engagement representative in use of appropriate isolation precautions for identified infection/symptoms 8. Provide and discuss with patient/patient customer engagement representative on educational MDRO sheet 9. Encourage and monitor nutritional status daily and consult broadband installer if indicated 10. Implement neutropenic guidelines as needed 11. Review exposure to history of communicable disease and recent travel history on admission 12. Encourage annual influenza vaccine 13. Encourage pneumonia vaccine Outcome: Progressing Note: Evaluation of progress towards goal: patient free from s/s of infection Problem: Knowledge Deficit Goal: Patient/patient customer engagement representative demonstrates understanding of disease process, treatment [...] Score of =/> 25 or indicated by [facility] Assessment Goal: Patient should be free from fall Description: Interventions: 1. [place] to environment 2. Hourly rounds addressing the [...] footwear 11. Teach patient and patient customer engagement representative to maintain environment for safety and [...] walker) within reach 19. Request patient customer engagement representative bring adaptive equipment/mobility aids from home or obtain and provide as needed 20. Consult pharmacy regarding effects of med's affecting mobility, cognition, and alternatives 21. Obtain physician order for PT if risk factors associated with mobility are present 22. Obtain physician order for OT as appropriate 23. Utilize diversional activities 24. Educate patient and patient customer engagement representative how to maintain a safe environment during visitation times (notify nurse prior to leaving bedside) 25. Consider appropriateness of medical or non-medical illustrator 26. Set up voiding schedule as appropriate [...] INTERVENTIONS: 1. Encourage patient or legal customer engagement representative to report early pain and ask [...] policy 9. Teach patient or legal customer engagement representative interventions for comforting Outcome: Progressing Note: [...] the bedside 7. Instruct patient/ patient customer engagement representative about use of safety devices 8. Include patient/ patient customer engagement representative in decisions related to safety Outcome: [...] technique 7. Identify and instruct patient/patient customer engagement representative in use of appropriate isolation precautions for identified infection/symptoms 8. Provide and discuss with patient/patient customer engagement representative on educational MDRO sheet 9. Encourage and monitor nutritional status daily and consult broadband installer if indicated 10. Implement neutropenic guidelines as needed 11. Review exposure to history of communicable disease and recent travel history on admission 12. Encourage annual influenza vaccine 13. Encourage pneumonia vaccine Outcome: Progressing Note: Evaluation of progress towards goal: Patient is being monitored for s/sx of infection. Problem: Knowledge Deficit Goal: Patient/patient customer engagement representative demonstrates understanding of disease process, treatment [...] Score of =/> 25 or indicated by [facility] Assessment Goal: Patient should be free from fall Description: Interventions: 1. [place] to environment 2. Hourly rounds addressing the [...] footwear 11. Teach patient and patient customer engagement representative to maintain environment for safety and [...] walker) within reach 19. Request patient customer engagement representative bring adaptive equipment/mobility aids from home or obtain and provide as needed 20. Consult pharmacy regarding effects of med's affecting mobility, cognition, and alternatives 21. Obtain physician order for PT if risk factors associated with mobility are present 22. Obtain physician order for OT as appropriate 23. Utilize diversional activities 24. Educate patient and patient customer engagement representative how to maintain a safe environment during visitation times (notify nurse prior to leaving bedside) 25. Consider appropriateness of medical or non-medical illustrator 26. 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 HERNIA REPAIR Left inguinal HIP SURGERY Left [...] pass Equipment: RW, gait belt, wound drain Telemetry/Elevator Attendant: Yes Oxygen Used: room air Other: fall [...] Patient will perform bed mobility with Modified Switzer Dates: Start: 12/26/23 Expected End: 01/24/24 Description: Goal Description: with proper BUE placement and sequencing Disciplines: PT Problem: Gait Dates: Start: 12/26/23 Disciplines: PT Goal: Patient will perform gait with Modified Switzer Dates: Start: 12/26/23 Expected End: 01/24/24 Description: With__RW__,__150__feet Goal Description: with proper gait pattern and safety awareness Disciplines: PT Problem: Stairs/Curb Dates: Start: 12/26/23 Disciplines: PT Goal: Patient will perform stairs/curb with Modified [place]itzer Dates: Start: 12/26/23 Expected End: 01/24/24 Description: [...] Goal: Patient will perform transfers with Modified Switzer Dates: Start: 12/26/23 Expected End: 01/24/24 Description: [...] INTERVENTIONS: 1. Encourage patient or legal customer engagement representative to report early pain and ask [...] policy 9. Teach patient or legal customer engagement representative interventions for comforting Outcome: Progressing Note: [...] technique 7. Identify and instruct patient/patient customer engagement representative in use of appropriate isolation precautions for identified infection/symptoms 8. Provide and discuss with patient/patient customer engagement representative on educational MDRO sheet 9. Encourage and monitor nutritional status daily and consult broadband installer if indicated 10. Implement neutropenic guidelines as [...] Nolen MD - Primary Assistants: None Staff: Priming Mixture Carrier Primary: Lily Glasgow RN Priming Mixture Carrier Relief: Dina Roy RN Scrub Person: Janak [...] Name Type Inv. Item Serial No. Environmental Communications Specialist Lot No. LRB No. Used Action PATCH DURA 1X1IN DRMTRX-ONLAY + CLGN RGNRT MEMBR STRL RPL [id number] - [id number] Graft PATCH DURA 1X1IN DRMTRX-ONLAY + CLGN RGNRT MEMBR STRL RPL [id number] PAULINA CRANIOMAXILLOFACIAL [id number] N/A 1 Implanted Estimated Blood Loss: 100 [...] no further orders documented in this encounter [facility] 12-27-2023 Hospital course Narrative Images from the original note were not included. [facility] [address] [place] [address], [address] [place] [address] * NEUROSURGERY DISCHARGE SUMMARY Patient: Regan Green Date of : 1950 Acct: [id number] Primary Care Physician: Sumanth Hill MD Admit [...] mg EC tablet Commonly known as: VOLTAREN [facility] ORAL OSTEO BI-FLEX ORAL oxyCODONE-acetaminophen 5-325 mg per tablet Commonly known as: PERCOCET tiZANidine 4 mg tablet Commonly known as: ZANAFLEX Where to Get Your Medications These medications were sent to [facility] [id number] [facility] [address] [facility] [id number] methocarbamoL 500 mg tablet naloxone 4 mg/actuation [...] acceptable and clinically appropriate. JOSEMANUEL Lainez [facility] Touch 12/27/23 12:28 PM JOSEMANUEL Sandoval 12/27/23 1231 documented in this encounter [facility] 12-27-2023 Hospital Discharge instructions JOSEMANUEL Sandoval - [...] at that time. Other Instructions: Call [facility] Neurosurgery with any questions, . The following attachments cannot be sent through Care Everywhere.Radiculopathy Discharge Instructions (Kazakh)documented in this encounter [facility] 12-27-2023 Plan of care note Problem: Pain Goal: Patient goal is pain score less than 4, able to rest, and participant in treatment plan as appropriate Description: INTERVENTIONS: 1. Encourage patient or legal customer engagement representative to report early pain and ask [...] policy 9. Teach patient or legal customer engagement representative interventions for comforting Outcome: Progressing Note: [...] the bedside 7. Instruct patient/ patient customer engagement representative about use of safety devices 8. Include patient/ patient customer engagement representative in decisions related to safety Outcome: [...] technique 7. Identify and instruct patient/patient customer engagement representative in use of appropriate isolation precautions for identified infection/symptoms 8. Provide and discuss with patient/patient customer engagement representative on educational MDRO sheet 9. Encourage and monitor nutritional status daily and consult broadband installer if indicated 10. Implement neutropenic guidelines as needed 11. Review exposure to history of communicable disease and recent travel history on admission 12. Encourage annual influenza vaccine 13. Encourage pneumonia vaccine Outcome: Progressing Note: Evaluation of progress towards goal: Patient denies fever. No purulent drainage noted at site. Plan of care ongoing. Problem: Knowledge Deficit Goal: Patient/patient customer engagement representative demonstrates understanding of disease process, treatment [...] be free from fall Description: Interventions: 1. [place] to environment 2. Hourly rounds addressing the [...] footwear 11. Teach patient and patient customer engagement representative to maintain environment for safety and [...] walker) within reach 19. Request patient customer engagement representative bring adaptive equipment/mobility aids from home or obtain and provide as needed 20. Consult pharmacy regarding effects of med's affecting mobility, cognition, and alternatives 21. Obtain physician order for PT if risk factors associated with mobility are present 22. Obtain physician order for OT as appropriate 23. Utilize diversional activities 24. Educate patient and patient customer engagement representative how to maintain a safe environment during visitation times (notify nurse prior to leaving bedside) 25. Consider appropriateness of medical or non-medical illustrator 26. Set up voiding schedule as appropriate [...] progress towards goal: Plan of care ongoing. [facility] 12-27-2023 Progress note Formatting of t his note is different from the original. Physical Therapy CANCEL - Deferred Per RN pt is dizzy and diaphoretic laying supine in bed. Will hold PT treatment and attempt to complete session as able. [facility] 12-27-2023 History of Present illness Narrative Images from the original note were not included. [facility] [address] [place] [address], [address] [place] [address] * NEUROSURGERY DAILY PROGRESS NOTE DATE:12/27/2023 PATIENT'S [...] - Home later today JOSEMANUEL Lainez [facility] 12/27/23 6:04 AM To find out which ESTEFANY is on for the day please go to [employer] and use log in [employer] and search for P[facility] Neurosurgery JOSEMANUEL Sandoval 12/26/23 1010 JOSEMANUEL Sandoval 12/27/23 1228 Images from the original note were not included. [facility] [address] [place] [address], [address] [place] [address] * NEUROSURGERY DAILY PROGRESS NOTE DATE:12/26/2023 PATIENT'S [...] later vs in AM JOSEMANUEL Lainez [facility] Touch 12/26/23 9:51 AM To find out which ESTEFANY is on for the day please go to [employer] and use log in [employer] and search for P[facility] Neurosurgery JOSEMANUEL Sandoval 12/26/23 1010 [facility] Plan of care note Problem: Pain Goal: Patient goal is pain score less than 4, able to rest, and participant in treatment plan as appropriate Description: INTERVENTIONS: 1. Encourage patient or legal customer engagement representative to report early pain and ask [...] policy 9. Teach patient or legal customer engagement representative interventions for comforting Outcome: Progressing Note: [...] the bedside 7. Instruct patient/ patient customer engagement representative about use of safety devices 8. Include patient/ patient customer engagement representative in decisions related to safety Outcome: [...] technique 7. Identify and instruct patient/patient customer engagement representative in use of appropriate isolation precautions for identified infection/symptoms 8. Provide and discuss with patient/patient customer engagement representative on educational MDRO sheet 9. Encourage and monitor nutritional status daily and consult broadband installer if indicated 10. Implement neutropenic guidelines as needed 11. Review exposure to history of communicable disease and recent travel history on admission 12. Encourage annual influenza vaccine 13. Encourage pneumonia vaccine Outcome: Progressing Note: Evaluation of progress towards goal: patient free from s/s of infection Problem: Knowledge Deficit Goal: Patient/patient customer engagement representative demonstrates understanding of disease process, treatment [...] Score of =/> 25 or indicated by [facility] Assessment Goal: Patient should be free from fall Description: Interventions: 1. [place] to environment 2. Hourly rounds addressing the [...] footwear 11. Teach patient and patient customer engagement representative to maintain environment for safety and [...] walker) within reach 19. Request patient customer engagement representative bring adaptive equipment/mobility aids from home or obtain and provide as needed 20. Consult pharmacy regarding effects of med's affecting mobility, cognition, and alternatives 21. Obtain physician order for PT if risk factors associated with mobility are present 22. Obtain physician order for OT as appropriate 23. Utilize diversional activities 24. Educate patient and patient customer engagement representative how to maintain a safe environment during visitation times (notify nurse prior to leaving bedside) 25. Consider appropriateness of medical or non-medical illustrator 26. Set up voiding schedule as appropriate [...] goal: patient maintaining body alignment per self [facility] Plan of care note Problem: Pain Goal: Patient goal is pain score less than 4, able to rest, and participant in treatment plan as appropriate Description: INTERVENTIONS: 1. Encourage patient or legal customer engagement representative to report early pain and ask [...] policy 9. Teach patient or legal customer engagement representative interventions for comforting Outcome: Progressing Note: [...] the bedside 7. Instruct patient/ patient customer engagement representative about use of safety devices 8. Include patient/ patient customer engagement representative in decisions related to safety Outcome: [...] technique 7. Identify and instruct patient/patient customer engagement representative in use of appropriate isolation precautions for identified infection/symptoms 8. Provide and discuss with patient/patient customer engagement representative on educational MDRO sheet 9. Encourage and monitor nutritional status daily and consult broadband installer if indicated 10. Implement neutropenic guidelines as needed 11. Review exposure to history of communicable disease and recent travel history on admission 12. Encourage annual influenza vaccine 13. Encourage pneumonia vaccine Outcome: Progressing Note: Evaluation of progress towards goal: Patient is being monitored for s/sx of infection. Problem: Knowledge Deficit Goal: Patient/patient customer engagement representative demonstrates understanding of disease process, treatment [...] Score of =/> 25 or indicated by [facility] Assessment Goal: Patient should be free from fall Description: Interventions: 1. [place] to environment 2. Hourly rounds addressing the [...] footwear 11. Teach patient and patient customer engagement representative to maintain environment for safety and [...] walker) within reach 19. Request patient customer engagement representative bring adaptive equipment/mobility aids from home or obtain and provide as needed 20. Consult pharmacy regarding effects of med's affecting mobility, cognition, and alternatives 21. Obtain physician order for PT if risk factors associated with mobility are present 22. Obtain physician order for OT as appropriate 23. Utilize diversional activities 24. Educate patient and patient customer engagement representative how to maintain a safe environment during visitation times (notify nurse prior to leaving bedside) 25. Consider appropriateness of medical or non-medical illustrator 26. Set up voiding schedule as appropriate [...] towards goal: Patient maintains proper anatomical alignment. [facility] 12-26-2023 Progress note Formatting of t his [...] Medical History: Diagnosis Date Cancer of prostate ([place]) 2017 prostatectomy Diverticulitis Diverticulosis Fecal impaction ([place]) Inflammation of sacroiliac joint ([place]) Knee pain Low back pain Lumbar disc disorder Neurogenic claudication 12/17/2023 Osteoarthritis SBO (small bowel obstruction) ([place]) 10/04/2023 Shingles UTI (urinary tract infection) Varicose veins of right lower extremity with pain 02/08/2020 Visual impairment 12/20/2023 Past Surgical History: Procedure Laterality Date ABDOMINAL ADHESION SURGERY COLONOSCOPY COLONOSCOPY N/A 03/25/2023 Performed by Johnathan Campbell DO at [facility] HERNIA REPAIR Left inguinal HIP SURGERY Left [...] pass Equipment: RW, gait belt, wound drain Telemetry/Elevator Attendant: Yes Oxygen Used: room air Other: fall [...] Patient will perform bed mobility with Modified Switzer Dates: Start: 12/26/23 Expected End: 01/24/24 Description: Goal Description: with proper BUE placement and sequencing Disciplines: PT Problem: Gait Dates: Start: 12/26/23 Disciplines: PT Goal: Patient will perform gait with Modified Switzer Dates: Start: 12/26/23 Expected End: 01/24/24 Description: With__RW__,__150__feet Goal Description: with proper gait pattern and safety awareness Disciplines: PT Problem: Stairs/Curb Dates: Start: 12/26/23 Disciplines: PT Goal: Patient will perform stairs/curb with Modified Switzer Dates: Start: 12/26/23 Expected End: 01/24/24 Description: [...] Goal: Patient will perform transfers with Modified Switzer Dates: Start: 12/26/23 Expected End: 01/24/24 Description: Goal Description: with proper BUE placement and sequencing Disciplines: PT Physical Therapy Care Plan (Resolved) There are no resolved problems. Principal Problem: Radiculopathy, lumbar region Active Problems: Neurogenic claudication [facility] 12-26-2023 Progress note Formatting of t his [...] smoking, drinking alcohol or doing illciit drugs. [employer] 12-26-2023 Plan of care note Problem: Pain Goal: Patient goal is pain score less than 4, able to rest, and participant in treatment plan as appropriate Description: INTERVENTIONS: 1. Encourage patient or legal customer engagement representative to report early pain and ask [...] policy 9. Teach patient or legal customer engagement representative interventions for comforting Outcome: Progressing Note: [...] technique 7. Identify and instruct patient/patient customer engagement representative in use of appropriate isolation precautions for identified infection/symptoms 8. Provide and discuss with patient/patient customer engagement representative on educational MDRO sheet 9. Encourage and monitor nutritional status daily and consult broadband installer if indicated 10. Implement neutropenic guidelines as [...] progress towards goal: progressing with walker [facility] 12-25-2023 Procedure note NEUROSURGERY OPERATIVE NOTE [...] Kerrison punches. I then checked with a Graves elevator and confirmed that there was no [...] with stable vital signs. Complications: None. [facility] 12-25-2023 Procedure note Brief Post-op Note NAME: Regan Green : 1950 PROCEDURE DATE: 12/25/2023 Surgeon: Surgeon(s) and Role: * Mayco Nolen MD - Primary Assistants: None Staff: Priming Mixture Carrier Primary: Lily Glasgow RN Priming Mixture Carrier Relief: Dina Roy RN Scrub Person: Janak [...] Name Type Inv. Item Serial No. Environmental Communications Specialist Lot No. LRB No. Used Action PATCH DURA 1X1IN DRMTRX-ONLAY + CLGN RGNRT MEMBR STRL RPL [id number] - [id number] Graft PATCH DURA 1X1IN DRMTRX-ONLAY + CLGN RGNRT MEMBR STRL RPL [id number] PAULINA CRANIOMAXILLOFACIAL [id number] N/A 1 Implanted Estimated Blood Loss: 100 ml OB Surgical Procedure Blood Loss: Anesthesia EBL: * No values recorded between 12/25/2023 3:09 PM and 12/25/2023 4:54 PM * OB QBL: * No values recorded between 12/25/2023 3:09 PM and 12/25/2023 4:54 PM * Condition: stable Findings: [facility] 12-25-[facility]23 Attending History and physical note HISTORY AND PHYSICAL INTERVAL NOTE: Regan Green 1950 [id number] H&P reviewed. The patient was examined and there are no changes to the H&P. Mayco Nolen MD Source Note - JOSEMANUEL Daniels - 12/20/2023 6:12 PM EST Letter to pain management seeking clarification on post operative pain medications. JOSEMANUEL Jackson [facility] Contact via patient touch 12/20/23 6:21 PM To find out which ESTEFANY is on for the day please go to [employer] and use log in [employer] and search for [facility] Neurosurgery (ESTEFANY and Phone Number is listed) JOSEMANUEL Daniels 12/20/23 1821 JOSEMANUEL Daniels 12/25/23 1330 [facility] 12-25-2023 History and physical note HISTORY AND PHYSICAL INTERVAL NOTE: Regan Green 1950 [id number] H&P reviewed. The patient was examined and there are no changes to the H&P. Mayco Nolen MD Source Note - JOSEMANUEL Daniels - 12/20/2023 6:12 PM EST Letter to pain management seeking clarification on post operative pain medications. JOSEMANUEL Jackson [facility] Contact via patient touch 12/20/23 6:21 PM To find out which ESTEFANY is on for the day please go to [employer] and use log in [employer] and search for [facility] Neuro[facility] (ESTEFANY and Phone Number is listed) JOSEMANUEL Daniels 12/20/23 1821 JOSEMANUEL Daniels 12/25/23 1330 documented in this encounter [facility] 12-24-2023 Miscellaneous Notes I spoke to Kenneth to explain how Medicare authorizes surgeries. Reminded Kenneth of surgery tomorrow 12/25/23 at 2:45pm with TTH arrival time of 12:45 pm documented in this encounter [facility] 12-24-2023 Telephone encounter Note I spoke to Kenneth to explain how Medicare authorizes surgeries. Reminded Kenneth of surgery tomorrow 12/25/23 at 2:45pm with TTH arrival time of 12:45 pm [facility] 12-24-2023 Nurse Note Anesthesia review: Lumb Patel: 12/25: TTH: GA. only hx prostate CA. No c/o CP or SOB. EKGs: LAst PCP note Reviewed and accepted by Dr Vásquez with no further orders [facility] 12-20-2023 Miscellaneous Notes Patient called to advise office that he does not need surgery clearance from PCP. [facility] Telephone encounter Note Patient called to advise office that he does not need surgery clearance from PCP. [facility] 12-20-2023 History and physical note PRE-ADMISSION TESTING HISTORY AND PHYSICAL EXAM DATE: 12/20/23 PCP: Sumanth Hill MD CHIEF COMPLAINT: back pain HISTORY OF PRESENT ILLNESS: Regan Green, a 73 y.o. White or male, presents to [facility] for a pre-surgical H&P. The [...] Medical History: Diagnosis Date Cancer of prostate ([place]) 2017 prostatectomy Diverticulitis Diverticulosis Fecal impaction ([place]) Inflammation of sacroiliac joint ([place]) Knee pain Low back pain Lumbar disc disorder Neurogenic claudication 12/17/2023 Osteoarthritis SBO (small bowel obstruction) ([place]) 10/04/2023 Shingles UTI (urinary tract infection) Varicose veins of right lower extremity with pain 02/08/2020 Visual impairment 12/20/2023 PAST SURGICAL HISTORY: Past Surgical History: Procedure Laterality Date ABDOMINAL ADHESION SURGERY COLONOSCOPY COLONOSCOPY N/A 03/25/2023 Performed by Johnathan Campbell DO at [facility] HERNIA REPAIR Left inguinal HIP SURGERY [...] the most recent lab values available in [facility] at the time of the office visit. PAT labs are pending per surgeon. ASSESSMENT / DIAGNOSIS: Linked DX: Radiculopathy, lumbar region [M54.16] PLAN: Regan Green is scheduled for Linked Case Date: 12/25/2023 Linked Surgeon: Forrest Nolen MD Linked Surgery: Laminectomy Lumbar Multi Level / L2-L5. JOSEMANUEL Santoyo 12/20/23 1511 [facility] 12-20-2023 History and physical note PRE-ADMISSION TESTING HISTORY AND PHYSICAL EXAM DATE: 12/20/23 PCP: Sumanth Hill MD CHIEF COMPLAINT: back pain HISTORY OF PRESENT ILLNESS: Regan Green, a 73 y.o. White or male, presents to [facility] for a pre-surgical H&P. The [...] Medical History: Diagnosis Date Cancer of prostate ([place]) 2017 prostatectomy Diverticulitis Diverticulosis Fecal impaction ([place]) Inflammation of sacroiliac joint ([place]) Knee pain Low back pain Lumbar disc disorder Neurogenic claudication 12/17/2023 Osteoarthritis SBO (small bowel obstruction) ([place]) 10/04/2023 Shingles UTI (urinary tract infection) Varicose veins of right lower extremity with pain 02/08/2020 Visual impairment 12/20/2023 PAST SURGICAL HISTORY: Past Surgical History: Procedure Laterality Date ABDOMINAL ADHESION SURGERY COLONOSCOPY COLONOSCOPY N/A 03/25/2023 Performed by Johnathan Campbell DO at [facility] HERNIA REPAIR Left inguinal HIP SURGERY [...] the most recent lab values available in [facility] at the time of the office visit. PAT labs are pending per surgeon. ASSESSMENT / DIAGNOSIS: Linked DX: Radiculopathy, lumbar region [M54.16] PLAN: Regan Green is scheduled for Linked Case Date: 12/25/2023 Linked Surgeon: Forrest Nolen MD Linked Surgery: Laminectomy Lumbar Multi Level / L2-L5. JOSEMANUEL Santoyo 12/20/23 1511 documented in this encounter [facility] 12-20-2023 Instructions Drew Rosario RN - 12/20/2023 1:45 PM EST Your surgery/procedure is [facility] at [facility] on 12/25 at 2:45 Arrival Time 12:45 [facility] Address: [address] [place] [address]. [place] [address] Park in [address] Parking lot located on [facility]. Report to the Entrance B. Check in at the information desk the surgery. The waiting room located on the second floor. If you have any questions prior to surgery, please call Pre-Admission Clinic at [phone] between 7:30 am and 4:30 pm Saturday through Saturday. If you have questions the morning of surgery, please call the Pre-op Department at [phone]. Notify your SURGEON if you develop any [...] would like to schedule therapy at a [facility] facility, please call [phone] ([phone]). Do not use lotions, creams, powders, perfume, [...] RIGHTS AND RESPONSIBILITIES As a patient at [facility], you have the right to: Receive medical care and be informed of who is taking care of you Be treated with dignity and respect Have a family member/customer engagement representative of choice and your physician notified of your admission Receive information and actively participate in decisions about your care and treatment Refuse care, treatment and services Decide who may provide your support and speak for you Access druze and spiritual services Participate in ethical issues [...] hospital charges and payment methods Patient/patient customer engagement representative responsibilities are to: Provide information about [...] in clean clothes. documented in this encounter [facility] 12-18-2023 History of Present illness Narrative Pre Op Chart Review: Date of Surgery: 12/25/23 Surgeon: Dr. Nolen Operation: LAMINECTOMY LUMBAR MULTI LEVEL / L2-L5 Consent Obtained and Scanned: Not scanned; will follow up with Marek Relevant Past Medical History: Prostate CA SBO [...] 10/04/23 no acute pulmonary pathology Jasmin Noriega, BURN TABLE OPERATOR-HARDWARE DEVELOPER [facility] Contact via patient touch 12/21/23 6:10 AM To find out which ESTEFANY is on for the day please go to [employer] and use log in [employer] and search for [facility] (ESTEFANY and Phone Number is listed) JOSEMANUEL Daniels 12/25/23 9973 documented in this encounter [facility] 12-10-2023 Miscellaneous Notes Regan calls into the [...] would have to speak with Dr. Nolen manufacturing scheduler about surgery. Patient transferred to Dr. Nolen manufacturing scheduler. documented in this encounter [facility] 12-10-2023 Telephone encounter Note Regan calls into [...] would have to speak with Dr. Nolen manufacturing scheduler about surgery. Patient transferred to Dr. Nolen manufacturing scheduler. [facility] 11-27-2023 Miscellaneous Notes Kenneth left a message to ask how many physical therapy visits he should try to complete before scheduling surgery. Left message for Kenneth to let him know at least six visits usually show good effort but if these are unsuccessful he needs to make sure the physical therapist is documenting increase of pain or ineffectiveness. documented in this encounter [facility] 11-27-2023 Telephone encounter Note Kenneth left a message to ask how many physical therapy visits he should try to complete before scheduling surgery. [facility] 11-27-2023 Telephone encounter Note Left message for Kenneth to let him know at least six visits usually show good effort but if these are unsuccessful he needs to make sure the physical therapist is documenting increase of pain or ineffectiveness. [facility] 11-14-2023 History of Present illness Narrative Images from the original note were not included. [facility] [address] [place] [address], [address] [place] [address] * CHART NOTE ? 11/14/2023 Patient: Regan Green 1950 [id number] Nurse Practitioner: Carl Sosa, HARDWARE DEVELOPER Physician: Mayco Nolen MD, FAANS CHIEF COMPLAINT [...] He was seen by [facility] in [place], but was advised they could no longer help. He has not had any interventional pain procedures, but was seen at [facility] in [place], [place], but was advised he should be seen here first. Patient's imaging was discussed and reviewed to their understanding in office today. Patient has not yet exhausted all conservative measures of treatment and is agreeable to them namely CHANTELLE. 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 Inadvertent computerized doctorate of chiropractic errors related to syntax, spelling, homophones, and/or inaudibility may be present. Scribe Statement: Scribed for and in the presence of JOSEMANUEL Kirk by Joshua Higginbotham. JOSEMANUEL Kirk 11/14/23 1630 documented in this encounter [facility] 11-14-2023 Instructions AINSLEY Szymanski - 11/14/2023 9:30 AM EST Patient was seen by Dr. Nolen and JOSEMANUEL Chappell Patient was given an order for an x ray Lumbar spine Flex/Ext Medrol pack Physical therapy Referral for Lumbar to PT services Pain management referral for Lumbar L3-4 Patient will follow up after Pain management JA documented in this encounter [facility] 11-05-2023 Miscellaneous Notes ED Outreach This documentation is being used for Transition of Care purposes: Yes/No: Yes ED Outreach Date: November 05, 2023 ED Outreach Method: COMMUNICATION METHOD: Telephone ED Outreach Attempt: first ED Outreach Outcome: Contacted Patient Name of ED Facility: [facility] Date of ED Discharge: 10/31/2023 [...] with additional concerns. documented in this encounter [facility] 11-05-2023 Telephone encounter Note ED Outreach This documentation is being used for Transition of Care purposes: Yes/No: Yes ED Outreach Date: November 05, 2023 ED Outreach Method: COMMUNICATION METHOD: Telephone ED Outreach Attempt: first ED Outreach Outcome: Contacted Patient Name of ED Facility: [facility] Date of ED Discharge: 10/31/2023 [...] will contact the office with additional concerns. [facility] 10-30-2023 Evaluation note Encounter Date Diagnosis Assessment [...] pain of right shoulder (ICD-10 - M25.511) [facility] Other 10-17-2023 Evaluation note* Encounter Date Diagnosis Assessment Notes [...] pain of right shoulder (ICD-10 - M25.511) [facility] Other 09-19-2023 Evaluation note* Encounter Date Diagnosis [...] pain of right shoulder (ICD-10 - M25.511) [facility] Other 08-21-2023 Evaluation note* Encounter Date Diagnosis [...] pain of right shoulder (ICD-10 - M25.511) [facility] Other 07-18-2023 Evaluation note* Encounter Date Diagnosis [...] given order for occupational therapy and braces [facility] Other 05-16-2023 NoteCONSULTATION CONSULTATION DATE: 03/19/2023 TO: [...] our patients to inform us about any shjb-gnj-zssvnel medications or herbal remedies/nutritional supplements/alternative remedies. 2. [...] treatment options with their primary care provider.[facility] [id number] Note CONSULTATION PROCEDURE DATE: 02/21/2023 PROCEDURE: Right [...] removed. He was discharged after meeting criteriaThe [facility] [id number] NoteCONSULTATION CONSULTATION DATE: 12/18/2022 CHIEF COMPLAINT: Left [...] like to proceed. CC: Sumanth Hill M.D.[facility] [id number] NoteCONSULTATION PROCEDURE DATE: 12/18/2022 PREOPERATIVE DIAGNOSIS: Osteoarthritis [...] will be followed up in the office.[facility] [id number] NoteCONSULTATION CONSULTATION DATE: 11/22/2022 HISTORY OF PRESENT [...] food. We will send a referral to [facility] to have his left CMC joint evaluated. Patient does agree with this, and we will follow him up in the clinic in three months' time.[facility] [id number] NotePROCEDURE: XR HAND LT MIN 3V HISTORY: [...] Electronically authenticated by: ALESSANDRO MEJIA Date: 2022-09-26 22:39[facility]11-17-2022 NoteCONSULTATION CONSULTATION DATE: 09/20/2022 HISTORY OF [...] mg t.i.d., Percocet 5/325 b.i.d., multivitamin and Ehlve-Fv-Jicb. Patient, procedure-holloway, had radiofrequency ablation of his [...] to the clinic thereafter for follow up.[facility] [id number] NoteCONSULTATION CONSULTATION DATE: 08/02/2022 HISTORY OF PRESENT [...] lately, carrying heavy feed bags into the [employer] for hunting season. He knows he is [...] of care and all questions were answered.The [id number] NoteCONSULTATION CONSULTATION DATE: 06/14/2022 This is a [...] and Achilles reflexes are +2. DIAGNOSIS: Code [facility] is 724.6. PLAN: We will authorize for a left SI joint injection, refill his Percocet 5/325 b.i.d. and refill Diclofenac 50 mg t.i.d. He is compliant with his vitamin regimen. At this time, I reiterated the use of heat and stretches. The patient will be followed in the clinic post-procedure and agrees to move forward.[facility] noteNo assessment information available [facility] Work Phone: Evaluation note* Diagnosis Onset Date Resolution Status Left hand pain acute 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, left hand acute [facility] Work Phone: Evaluation note* Diagnosis Onset Date Resolution Status Left hand pain acute 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, left hand acute Left hand pain acute 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, left hand acute [facility] Work Phone: Evaluation note* Diagnosis Spondylolisthesis of lumbar region- Primary Acquired spondylolisthesis Abnormal findings on diagnostic imaging of other parts of musculoskeletal system documented [facility] Diagnosis Spondylolisthesis of lumbar region Acquired spondylolisthesis Abnormal findings on diagnostic imaging of other parts of musculoskeletal system documented [facility] this [facility]* Diagnosis Lumbar radiculopathy, chronic- Primary [facility] Diagnosis Neurogenic claudication- Primary Spinal stenosis of lumbar region Lumbar radiculopathy, chronic [facility] Diagnosis Radiculopathy, lumbar region Thoracic [...] of lumbar region [facility] Diagnosis Adenocarcinoma of prostate ([facility])- Primary Malignant neoplasm of prostate Spondylolisthesis of lumbar region [facility]* Diagnosis Spondylolisthesis of lumbar region- Primary Status post lumbar laminectomy Radiculopathy, lumbar region Thoracic or lumbosacral neuritis or radiculitis, unspecified Spondylolisthesis of lumbar region [facility] Diagnosis Radiculopathy, lumbar region- Primary Thoracic or lumbosacral neuritis or radiculitis, unspecified Radiculopathy, lumbar region Thoracic or lumbosacral neuritis or radiculitis, unspecified Neurogenic claudication Spinal stenosis of lumbar region Neurogenic claudication Spinal stenosis of lumbar region [facility] Diagnosis Spondylolisthesis of lumbar region- Primary [facility]* Diagnosis Status post lumbar laminectomy- Primary Low back pain, non-specific Leg pain, right Pain in soft tissues of limb Weakness of right lower extremity Sensory deficit, right [facility]* Diagnosis Routine general medical examination at a health care facility- Primary Lumbar radiculopathy, chronic Spondylolisthesis of lumbar region Pure hypercholesterolemia Adenocarcinoma of prostate ([facility]) Malignant neoplasm of prostate [facility]* Diagnosis Spondylolisthesis of lumbar region- Primary Acquired spondylolisthesis Abnormal findings on diagnostic imaging of other parts of musculoskeletal system documented [facility]* Diagnosis Onset Date Resolution Status Admit Date Left hand pain acute January 9:17am 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, left hand acute January 26, 2025 9:17am [facility] Work Phone: Evaluation note* Diagnosis Spondylolisthesis of lumbar region- Primary Acquired spondylolisthesis Lumbar spondylosis Lumbosacral spondylosis without myelopathy Pre-op testing Preoperative examination, unspecified 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) Anemia, unspecified type Educational circumstance Spondylolisthesis of lumbar region Acquired spondylolisthesis Pre-op testing Preoperative examination, unspecified documented [facility] this [facility]* Diagnosis Radiculopathy, lumbar region- Primary Thoracic or lumbosacral neuritis or radiculitis, unspecified Malignant neoplasm of prostate (HCC) Malignant neoplasm of prostate Status post total knee replacement, unspecified laterality Preop examination Preoperative examination, unspecified Spondylolisthesis of lumbar region Acquired spondylolisthesis Pre-op testing Preoperative examination, unspecified * Assessment & Plan Note - Vance Ferreira DO - 03/18/2025 12:56 PM EDT Associated Problem(s): S/P total knee arthroplasty S/p total right knee arthroplasty in 2012, f/b revision same knee * Assessment & Plan Note - Vance Ferreira DO - 03/18/2025 12:55 PM EDT Associated Problem(s): Malignant neoplasm of prostate (HCC) S/p prostatectomy, stable * Assessment & Plan Note - Vance Ferreira DO - 03/18/2025 12:52 PM EDT Associated Problem(s): Radiculopathy, lumbar region CT SPECT scan of the lumbar spine reviewed there is significant uptake at the L4-5 disc level and vacuum disc, at the level above which is also degenerative there is no uptake in the disc and there is some uptake in the bilateral L3-4 facet joints Now scheduled for L4-L5 decompression laminectomy Pt has a hx of lumbar laminectomy L2-L5 in 2023 Patient currently on gabapentin, PRN toradol, cyclobenzaprine, PRN oxycodone and PRN diclofenac forpain control documented in this [facility]* Diagnosis Spondylolisthesis of lumbar region- Primary Acquired spondylolisthesis Radiculopathy, lumbar region- Primary Thoracic or lumbosacral neuritis or radiculitis, unspecified Malignant neoplasm of prostate (HCC) Malignant neoplasm of prostate Status post total knee replacement, unspecified laterality Preop examination Preoperative examination, unspecified Spondylolisthesis of lumbar region Acquired spondylolisthesis Pre-op testing Preoperative examination, unspecified documented [facility]* Diagnosis Hematuria, unspecified type- Primary [facility]* Diagnosis Acute bacterial simple cystitis- Primary [facility]* Diagnosis Encounter for staple removal- Primary Lumbar radiculopathy, chronic Status post lumbar spine operative procedure for decompression of spinal cord Acute bacterial simple cystitis Gross hematuria- Primary Adenocarcinoma of prostate (CMS-HCC) Malignant neoplasm of prostate documented in this [facility]* Diagnosis Gross hematuria- Primary Adenocarcinoma of prostate (CMS-HCC) Malignant neoplasm of prostate [facility] Diagnosis Spinal stenosis of lumbar region, unspecified whether neurogenic claudication present- Primary Acute post-operative pain Acute post-operative pain S/P lumbar fusion Arthrodesis status Class 1 obesity due to excess calories with body mass index (BMI) of 30.0 to 30.9 in adult ABLA (acute blood loss anemia) Radiculopathy, lumbar region- Primary Thoracic or lumbosacral neuritis or radiculitis, unspecified Malignant neoplasm of prostate (HCC) Malignant neoplasm of prostate Status post total knee replacement, unspecified laterality Preop examination Preoperative examination, unspecified Post-operative state- Primary Other postprocedural status [facility]* Diagnosis Gross hematuria- Primary Adenocarcinoma of prostate ([facility]) Malignant neoplasm of prostate Radiculopathy, lumbar region Thoracic or lumbosacral neuritis or radiculitis, unspecified documented in this encounter [facility]* Diagnosis Spinal stenosis of lumbar region, unspecified whether neurogenic claudication present- Primary Acute post-operative pain Acute post-operative pain S/P lumbar fusion Arthrodesis status Class 1 obesity due to excess calories with body mass index (BMI) of 30.0 to 30.9 in adult ABLA (acute blood loss anemia) Radiculopathy, lumbar region- Primary Thoracic or lumbosacral neuritis or radiculitis, unspecified Malignant neoplasm of prostate (HCC) Malignant neoplasm of prostate Status post total knee replacement, unspecified laterality Preop examination Preoperative examination, unspecified S/P lumbar fusion- Primary Arthrodesis status Numbness and tingling Disturbance of skin sensation Acute post-operative pain documented in this encounter [facility]* Diagnosis Melanocytic nevus of trunk- Primary Benign neoplasm of skin of trunk, except scrotum Actinic keratosis Lentigines Seborrheic keratosis Neoplasm of unspecified behavior of bone, soft tissue, and skin [facility] Diagnosis Spinal stenosis of lumbar region, unspecified whether neurogenic claudication present- Primary Acute post-operative pain Acute post-operative pain S/P lumbar fusion Arthrodesis status Class 1 obesity due to excess calories with body mass index (BMI) of 30.0 to 30.9 in adult ABLA (acute blood loss anemia) Radiculopathy, lumbar region- Primary Thoracic or lumbosacral neuritis or radiculitis, unspecified Malignant neoplasm of prostate (HCC) Malignant neoplasm of prostate Status post total knee replacement, unspecified laterality Preop examination Preoperative examination, unspecified SI joint arthritis- Primary Sacroiliitis, not elsewhere classified S/P lumbar fusion Arthrodesis status Acute post-operative pain documented in this encounter [facility] general Narrative - Reported* Type Description Date Medical History post knee right replacement Surgical History knee replacement right Surgical History hernia Surgical History prostatectomy Surgical History acetabulum fx Hospitalization History see above Web and Rank Other InstructionsNot on filedocumented in this encounter [...] [facility] Diagnostic Procedure Only (Routine) - Authorized Specialty Diagnoses / Procedures Referred By Contact Referred To Contact MOLECULAR & FUNCTIONAL IMAGING Diagnoses Abnormal findings on diagnostic imaging of other parts of musculoskeletal system Procedures NM BONE 3 PHASE BONE &/JOINT IMAGING 3 PHASE STUDY Johnathan Kraus MD [address] [facility] [address] [place] [address] Molecular & Functional Imaging [address] [place] [address] Referral ID Status Reason Start Date Expiration Date Visits Requested Visits Authorized [id number] Authorized Auto-Generat ed Referral 11/25/2024 12/25/2025 1 1 * Diagnostic Procedure Only (Routine) - Authorized Specialty Diagnoses / Procedures Referred By Contac t Referred To Contact MOLECULAR & FUNCTIONAL IMAGING Diagnoses Spondylolisthesis of lumbar region Procedures NM BONE SPECT RP LOCLZJ BERENICE SPECT W/CT 1 AREA 1 DAY IMAGING Johnathan Kraus MD [address] [place] [address] Molecular & Functional Imaging [address] [place] [address] Referral ID Status Reason Start Date Expiration Date Visits Requested Visits Authorized [id number] Authorized Auto-Generat ed Referral 11/25/2024 12/25/2025 1 1 [facility] for referral (narrative)* Diagnostic Procedure Only (Routine) - Closed Specialty Diagnoses / Procedures Referred By Contact Referred To Contact MOLECULAR & FUNCTIONAL IMAGING Diagnoses Abnormal findings on diagnostic imaging of other parts of musculoskeletal system Procedures NM BONE 3 PHASE BONE &/JOINT IMAGING 3 PHASE STUDY Johnathan Kraus MD [address] [facility] [place] [address] Molecular & Functional Imaging [address] [place] [address] Referral ID Status Reason Start Date Expiration Date V isits Requested Visits Authorized [id number] Closed Auto-Generate d Referral 11/25/2024 12/25/2025 1 1 * Diagnostic Procedure Only (Routine) - Closed Specialty Diagnoses / Procedures Referred By Gaston t Referred To Contact MOLECULAR & FUNCTIONAL IMAGING Diagnoses Spondylolisthesis of lumbar region Procedures NM BONE SPECT RP LOCLZJ BERENICE SPECT W/CT 1 AREA 1 DAY IMAGING Johnathan Kraus MD [address] [place] [address] Molecular & Functional Imaging [address] [place] [address] Referral ID Status Reason Start Date Expiration Date V isits Requested Visits Authorized [id number] Closed Auto-Generate d Referral 11/25/2024 12/25/2025 1 1 [facility] for referral (narrative)* Consultation (Routine) - Pending Review Specialty Diagnoses / Procedures Referred By Contac t Referred To Contact Neurosurgery Diagnoses Lumbar radiculopathy, chronic Sumanth Hill MD [address] [place] [address] Mayco Nolen MD [address] [facility] [address] [place] [address] Referral ID Status Reason Start Date Expiration Date Visits Requested Visits Authorized [id number] Pending Review Specialty Services Required 11/05/2023 11/04/2024 1 1 Counts include 234 beds at the [facility] for referral (narrative)* Consultation (Routine) - Pending Review Specialty Diagnoses / Procedures Referred By Contac t Referred To Contact Pain Medicine Diagnoses Lumbar radiculopathy, chronic Neurogenic claudication Carl Sosa APRN-CNP [address] [address] Referral ID Status Reason Start Date Expiration Date V isits Requested Visits Authorized [id number] Pending Review 11/14/2023 11/13/2024 1 1 * Physical Therapy (Routine) - Pending Review Specialty Diagnoses / Procedures Referred By Contac t Referred To Contact Rehabilitation Diagnoses Lumbar radiculopathy, chronic Neurogenic claudication Carl Sosa APRN-CNP 0 [facility] [address] [place] [address] PT SERVICES RE[facility]IBIL[facility]ATION [address] [place] [address] Referral ID Status Reason Start Date Expiration Date Visits Requested Visits Authorized [id number] Pending Review Specialty Services Required 11/14/2023 11/13/2024 1 1 [facility] Consultation (Routine) - Pending Review Specialty Diagnoses / Procedures Referred By Contac t Referred To Contact Pain Medicine Diagnoses Spondylolisthesis of lumbar region Mayco Nolen MD [address] [place] [address] [address] [place] [phone] James Ly MD [address] [place] [address] COMPREHENSIVE SURGICAL SERVICES [place] [address] Referral ID Status Reason Start Date Expiration Date V isits Requested Visits Authorized [id number] Pending Review 04/23/2024 04/23/2025 1 1 * (Routine) - Pending Review Specialty Diagnoses / Procedures Referred By Contac t Referred To Contact Rehabilitation Diagnoses Spondylolisthesis of lumbar region Mayco Nolen MD [address] [place] [phone] Referral ID Status Reason Start Date Expiration Date Visits Requested Visits Authorized [id number] Pending Review Specialty Services Required 04/23/2024 10/23/2024 1 1 [facility] System Summary Purpose Family History Relationship Condition [...] Gaston t Referred To Contact Rehabilitation Diagnoses Status post lumbar laminectomy Leg pain, right Weakness of right lower extremity Carl Sosa, BURN TABLE OPERATOR-HARDWARE DEVELOPER [address] [facility] [address] [place] [address] [facility] [address] [place] [address] Referral ID Status Reason Start Date Expiration Date Visits Requested Visits Authorized [id number] Authorized Specialty Services Required 02/12/2024 02/11/2025 1 1 Specialty Diagnoses / Procedures Referred By Contac t Referred To Contact Radiology Diagnoses Status post lumbar laminectomy Low back pain, non-specific Leg pain, right Weakness of right lower extremity Sensory deficit, right Procedures MR lumbar spine without contrast Carl Sosa, BURN TABLE OPERATOR-HARDWARE DEVELOPER [address] [address] Referral ID Status Reason Start Date Expiration Date V isits Requested Visits Authorized [id number] Pending Review 02/12/2024 02/11/2025 1 1 Additional Source Comments (unrecognized sect ion and content) No Status Records FoundNo Status Records FoundNo Status Records FoundNo Status Records FoundNo Status Records FoundNo Status Records FoundNo Status Records FoundNo Status Records FoundNo Status Records FoundNo Status Records FoundNo Status Records Found INFORMATION SOURCE (unrecogn ized section and content) DATE CREATED AUTHOR 04/21/2018 [facility] DATE CREATED AUTHOR AUTHOR'S ORGANIZ ATION 02/25/2022 [facility] dical Specialist DATE CREATED AUTHOR AUTHOR'S ORGANIZ ATION 04/12/[address] [facility] DATE CREATED AUTHOR AUTHOR'S ORGANIZ ATION 04/25/2024 [facility] DATE CREATED AUTHOR AUTHOR'S ORGANIZ ATION 06/05/2024 [facility] DATE CREATED AUTHOR AUTHOR'S ORGANIZ ATION 12/22/2024 [facility] DATE CREATED AUTHOR AUTHOR'S ORGANIZ ATION 01/30/[address] [facility] DATE CREATED AUTHOR AUTHOR'S ORGANIZ ATION 04/29/2025 [facility] DATE CREATED AUTHOR AUTHOR'S ORGANIZ ATION 05/16/2025 [facility] DATE CREATED AUTHOR AUTHOR'S ORGANIZ ATION 05/22/2025 [facility] DATE CREATED AUTHOR AUTHOR'S ORGANIZ ATION 06/04/2025 [facility] dical Specialists EPIC REASON FOR VISIT (unrecogniz ed section and content) Reason Comments New Patient Reason Comments Radiology NM Specialty Diagnoses / Procedures Referred By Contact Referred To Contact MOLECULAR & FUNCTIONAL IMAGING Diagnoses Abnormal findings on diagnostic imaging of other parts of musculoskeletal system Procedures NM BONE 3 PHASE BONE &/JOINT IMAGING 3 PHASE STUDY Johnathan Kraus MD [address] [facility] [address] [place] [address] Molecular & Functional Imaging [address] [place] [address] Referral ID Status Reason Start Date Expiration Date V isits Requested Visits Authorized [id number] Closed Auto-Generate d Referral 11/25/2024 12/25/2025 1 1 Reason Onset Date Comments Er Follow-up 11/05/2023 Reason Comments 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 [address] Mayco Nolen MD [address] [facility] [address] [place] [phone] Referral ID Status Reason Start Date Expiration Date Visits Requested Visits Authorized [id number] Pending Review Specialty Services Required 11/05/2023 11/04/2024 1 1 Reason Onset Date Comments surgery 12/10/2023 Reason Comments Follow-up Annual follow up wit h PSA Reason Onset Date Comments surgery 12/24/2023 Reason Comments Follow-up F/u mri results joy ent with worsening RLE radiculopathy Specialty Diagnoses / Procedures Referred By Gaston borges Referred To Contact Referral ID Status Reason Start Date Expiration Date Visits Re quested Visits Authorized [id number] 1 1 Reason Comments Follow-up 4-6 wk lumbar Reason Comments Post-op POST OP LUMBAR GIFTY ECTOMY Reason Comments Annual Exam Reason Onset Date Comments Request for retro C9 07/27/2024 Reason Comments Leg Pain Reason Comments Schedule Surgery Reason Comments Chronic Pain Reason Comments Patient Update Reason Comments Suture / Staple Removal Reason Comments Blood in Urine Reason Comments Transition Of Care Reason Comments Patient Question Reason Comments Patient Update Patient Question Reason Comments Follow Up Reason Comments Skin Check Reason Comments Follow Up Specialty Diagnoses / Procedures Referred By Contac t Referred To Contact Diagnoses S/P lumbar fusion Numbness and tingling Acute post-operative pain Procedures OFFICE/OUTPATIENT [facility] 60 MINUTES Drew Leija, GERALD [address] [place] [address] Phone: tel: fax: Referral ID Status Reason Start Date Expiration Date V isits Requested Visits Authorized [id number] Closed PCP Requested Referral 06/29/2025 05/12/2026 1 1 Care Teams (unrecognized sec tion [...] May 22, 2024 End: May 22, 2024 Aircraft Delivery Checker Relationship Specialty Start Date End Date Sumanth Light PCP - General Family Medicine 12/17/14 Team Status: Inactive Member Role Status Dates NON STAFF Primary Care Provider Active Start: July 31, 2024 End: July 31, 2024 Charity Barkley MD Attending Provider Active Start: July 31, 2024 End: July 31, 2024 Aircraft Delivery Checker Relationship Specialty Start Date End Date Sumanth Light PCP - General Family Medicine 12/17/14 Aircraft Delivery Checker Relationship Specialty Start Date End Date Sumanth Light PCP - General Family Medicine 12/17/14 Aircraft Delivery Checker Relationship Specialty Start Date End Date Sumanth Light PCP - General Family Medicine 12/17/14 Aircraft Delivery Checker Relationship Specialty Start Date End Date Sumanth Hill MD [address] [place] [address] PCP - General Family Medicine 01/16/23 Aircraft Delivery Checker Relationship Specialty Start Date End Date Sumanth Hill MD [address] [place] [address] PCP - General Family Medicine 01/16/23 Aircraft Delivery Checker Relationship Specialty Start Date End Date Sumanth Hill MD [address] [place] [address] PCP - General Family Medicine 01/16/23 Aircraft Delivery Checker Relationship Specialty Start Date End Date Sumanth Hill MD [address] [place] [address] PCP - General Family Medicine 01/16/23 Aircraft Delivery Checker Relationship Specialty Start Date End Date Sumanth Hill MD [address] [place] [address] PCP - General Family Medicine 01/16/23 Aircraft Delivery Checker Relationship Specialty Start Date End Date Sumanth Hill MD [address] [place] [address] PCP - General Family Medicine 01/16/23 Aircraft Delivery Checker Relationship Specialty Start Date End Date Sumanth Hill MD [address] [place] [address] PCP - General Family Medicine 01/16/23 Aircraft Delivery Checker Relationship Specialty Start Date End Date Sumanth Hill MD [address] [place] [address] PCP - General Family Medicine 01/16/23 Aircraft Delivery Checker Relationship Specialty Start Date End Date Sumanth Hill MD [address] [place] [address] PCP - General Family Medicine 01/16/23 Aircraft Delivery Checker Relationship Specialty Start Date End Date Sumanth Hill MD [address] [place] [address] PCP - General Family Medicine 01/16/23 Aircraft Delivery Checker Relationship Specialty Start Date End Date Sumanth Hill MD [address] [place] [address] PCP - General Family Medicine 01/16/23 Aircraft Delivery Checker Relationship Specialty Start Date End Date Sumanth Hill MD [address] [place] [address] PCP - General Family Medicine 01/16/23 Aircraft Delivery Checker Relationship Specialty Start Date End Date Sumanth Hill MD [address] [place] [address] PCP - General Family Medicine 01/16/23 Aircraft Delivery Checker Relationship Specialty Start Date End Date Sumanth Light PCP - General Family Medicine 12/17/14 Team Status: Inactive Member Role Status Dates NON STAFF Primary Care Provider Active Start: January 26, 2025 End: January 26, 2025 Charity Barkley MD Attending Provider Active Start: January 26, 2025 End: January 26, 2025 Aircraft Delivery Checker Relationship Specialty Start Date End Date de Marta Sumanth Malik PCP - General Family Medicine 12/17/14 Aircraft Delivery Checker Relationship Specialty Start Date End Date de Marta Sumanth Malik PCP - General Family Medicine 12/17/14 Aircraft Delivery Checker Relationship Specialty Start Date End Date de Marta Sumanth Malik PCP - General Family Medicine 12/17/14 Aircraft Delivery Checker Relationship Specialty Start Date End Date de Marta Sumanth Malik PCP - General Family Medicine 12/17/14 Aircraft Delivery Checker Relationship Specialty Start Date End Date de Marta Sumanth Malik PCP - General Family Medicine 12/17/14 Aircraft Delivery Checker Relationship Specialty Start Date End Date Ovi Mcdaniel MD [address] [place] [id number] PCP - General Internal Medicine 04/05/25 Aircraft Delivery Checker Relationship Specialty Start Date End Date de Marta Sumanth Malik PCP - General Family Medicine 12/17/14 Aircraft Delivery Checker Relationship Specialty Start Date End Date Ovi Mcdaniel MD [address] [place] [id number] PCP - General Internal Medicine 04/05/25 Aircraft Delivery Checker Relationship Specialty Start Date End Date Ovi Mcdaniel MD [address] [place] [id number] PCP - General Internal Medicine 04/05/25 Aircraft Delivery Checker Relationship Specialty Start Date End Date Oiv Mcdaniel MD [address] [place] [id number] PCP - General Internal Medicine 04/05/25 Aircraft Delivery Checker Relationship Specialty Start Date End Date Ovi Mcdaniel MD [address] [place] [id number] PCP - General Internal Medicine 04/05/25 Aircraft Delivery Checker Relationship Specialty Start Date End Date Ovi Mcdaniel MD [address] [place] [id number] PCP - General Internal Medicine 04/05/25 Aircraft Delivery Checker Relationship Specialty Start Date End Date de [facility], Sumanth Malik PCP - General Family Medicine 12/17/14 Aircraft Delivery Checker Relationship Specialty Start Date End Date de [facility], Sumanth Malik PCP - General Family Medicine 12/17/14 Aircraft Delivery Checker Relationship Specialty Start Date End Date de [facility], Sumanth Malik PCP - General Family Medicine 12/17/14 Aircraft Delivery Checker Relationship Specialty Start Date End Date de Marta, Sumanth Malik PCP - General Family Medicine 12/17/14 Aircraft Delivery Checker Relationship Specialty Start Date End Date de Marta, Sumanth Malik PCP - General Family Medicine 12/17/14 Aircraft Delivery Checker Relationship Specialty Start Date End Date de [facility], Sumanth Malik PCP - General Family Medicine 12/17/14 Goals [...] or prosecute any alcohol or drug abuse patient.[facility] [place]In the event this information is protected by the Federal Confidentiality of Alcohol and Drug Abuse Patient Records regulations: The Federal rules restrict any use of the information to criminally investigate or prosecute any alcohol or drug abuse patient.[facility] [place]In the event this information is protected by the Federal Confidentiality of Alcohol and Drug Abuse Patient Records regulations: The Federal rules restrict any use of the information to criminally investigate or prosecute any alcohol or drug abuse patient.[facility] [place]In the event this information is protected by the Federal Confidentiality of Alcohol and Drug Abuse Patient Records regulations: The Federal rules restrict any use of the information to criminally investigate or prosecute any alcohol or drug abuse patient.[facility] [place]In the event this information is protected by the Federal Confidentiality of Alcohol and Drug Abuse Patient Records regulations: The Federal rules restrict any use of the information to criminally investigate or prosecute any alcohol or drug abuse patient.[facility] [place]In the event this information is protected by the Federal Confidentiality of Alcohol and Drug Abuse Patient Records regulations: The Federal rules restrict any use of the information to criminally investigate or prosecute any alcohol or drug abuse patient.[facility] [place]In the event this information is protected by the Federal Confidentiality of Alcohol and Drug Abuse Patient Records regulations: The Federal rules restrict any use of the information to criminally investigate or prosecute any alcohol or drug abuse patient.[facility] [place]In the event this information is protected by the Federal Confidentiality of Alcohol and Drug Abuse Patient Records regulations: The Federal rules restrict any use of the information to criminally investigate or prosecute any alcohol or drug abuse patient.[facility] [place]In the event this information is protected by the Federal Confidentiality of Alcohol and Drug Abuse Patient Records regulations: The Federal rules restrict any use of the information to criminally investigate or prosecute any alcohol or drug abuse patient.[facility] [place]In the event this information is protected by the Federal Confidentiality of Alcohol and Drug Abuse Patient Records regulations: The Federal rules restrict any use of the information to criminally investigate or prosecute any alcohol or drug abuse patient.[facility] [place]In the event this information is protected by the Federal Confidentiality of Alcohol and Drug Abuse Patient Records regulations: The Federal rules restrict any use of the information to criminally investigate or prosecute any alcohol or drug abuse patient.[facility] [place]In the event this information is protected by the Federal Confidentiality of Alcohol and Drug Abuse Patient Records regulations: The Federal rules restrict any use of the information to criminally investigate or prosecute any alcohol or drug abuse patient.[facility] [place]In the event this information is protected by the Federal Confidentiality of Alcohol and Drug Abuse Patient Records regulations: The Federal rules restrict any use of the information to criminally investigate or prosecute any alcohol or drug abuse patient.[facility] [place]In the event this information is protected by the Federal Confidentiality of Alcohol and Drug Abuse Patient Records regulations: The Federal rules restrict any use of the information to criminally investigate or prosecute any alcohol or drug abuse patient.[facility] [place]In the event this information is protected by the Federal Confidentiality of Alcohol and Drug Abuse Patient Records regulations: The Federal rules restrict any use of the information to criminally investigate or prosecute any alcohol or drug abuse patient.[facility] [place]In the event this information is protected by the Federal Confidentiality of Alcohol and Drug Abuse Patient Records regulations: The Federal rules restrict any use of the information to criminally investigate or prosecute any alcohol or drug abuse patient.[facility] [place]In the event this information is protected by the Federal Confidentiality of Alcohol and Drug Abuse Patient Records regulations: The Federal rules restrict any use of the information to criminally investigate or prosecute any alcohol or drug abuse patient.[facility] [place]In the event this information is protected by the Federal Confidentiality of Alcohol and Drug Abuse Patient Records regulations: The Federal rules restrict any use of the information to criminally investigate or prosecute any alcohol or drug abuse patient.[facility] [place]onIn the event this information is protected by the Federal Confidentiality of Alcohol and Drug Abuse Patient Records regulations: The Federal rules restrict any use of the information to criminally investigate or prosecute any alcohol or drug abuse patient.[facility] [place]onIn the event this information is protected by the Federal Confidentiality of Alcohol and Drug Abuse Patient Records regulations: The Federal rules restrict any use of the information to criminally investigate or prosecute any alcohol or drug abuse patient.[facility] [place]onIn the event this information is protected by the Federal Confidentiality of Alcohol and Drug Abuse Patient Records regulations: The Federal rules restrict any use of the information to criminally investigate or prosecute any alcohol or drug abuse patient.[facility] [place] Scheduled Active and Recently Administ ered Medications [...] 05 (Given - Provider: Bandar Bahena RN) 520 [...] Vibha Saeed RN) lidocaine-EPINEPHrine (XYLOCAINE W/EPI) 1 %-1:[id number] injection (CANCELED) As needed, Starting on Sat12/25/23 [...] BE BASED ON THE PRIMARY CLINICAL RECORDS. [facility] [employer] [facility] provides no warranty or guarantee of the accuracy or completeness of information in this document.
--- NOTE | 2025-06-30 08:36 | PM.CN ---
Consult Note: HPI Data of Consult Patient: known to practice within the last 3 years Requesting Physician: Danielle Davila NP Primary Care Provider: SUMANTH BECK Consult Narrative Reason for consult: f/u Narrative: Regan Green a pleasant 75 year old male presents for evaluation. longstanding hx of back pain and right knee pain post replacement unresponsive to > 6 weeks of PT/provider guided HEP, heat, ice, tylenol and NSAIDs. prior advanced imaging consistent with multilevel lumbar spondylosis, stenosis, and lumbar DDD. pt status post L4/5 fusion, continues to f/u with NS pending PT. pain today 4/10 aching in low back 6/10 in right knee increasing to 10/10 with walking and activity. utilizing flexeril, gabapentin, diclofenac, and perocet with benefit without side effects. cc:: CC: Danielle Davila NP Review of Systems ROS Status of ROS 10 or more systems reviewed and unremarkable except as noted in history and below Musculoskeletal Reports: back pain and joint pain PFSH PFSH Medical History Rheumatoid arthritis ?M06.9 - Rheumatoid arthritis, unspecified (ICD-10) Low back pain ?M54.50 - Low back pain, unspecified (ICD-10) Prostate cancer ?C61 - Malignant neoplasm of prostate (ICD-10) Sacroiliitis, not elsewhere classified ?M46.1 - Sacroiliitis, not elsewhere classified (ICD-10) Surgical History Status post hip surgery ?Z98.890 - Other specified postprocedural states (ICD-10) S/P hernia repair ?Z98.890 - Other specified postprocedural states (ICD-10) ?Z87.19 - Personal history of other diseases of the digestive system (ICD-10) S/P total knee arthroplasty ?Z96.659 - Presence of unspecified artificial knee joint (ICD-10) S/P prostatectomy ?Z90.79 - Acquired absence of other genital organ(s) (ICD-10) Meds Home Medications and Allergies Home Medications ?Medication ?Instructions ?Recorded ?Confirmed ?Type OSCAL WITH D PO .QD 04/18/23 History glucosamine-chondroitin 250 mg-200 2 tab PO .QD 04/18/23 01/25/25 History mg tablet (Osteo Bi-Flex) multivitamin 1 tab PO DAILY 04/18/23 01/25/25 History vitamin B complex (Vitamins B 1 tab PO DAILY 01/22/24 01/25/25 History Complex tablet) cyclobenzaprine 10 mg tablet 10 mg PO TID PRN muscle spasm #90 12/09/24 01/25/25 Rx tabs gabapentin 300 mg capsule 300 mg PO TID #90 caps 12/16/24 01/25/25 Rx oxycodone-acetaminophen 5 mg-325 1 tab PO BID PRN pain #60 tabs 03/10/25 Rx mg tablet (Percocet) diclofenac sodium 75 mg 75 mg PO BID PRN pain #60 tabs 04/19/25 Rx tablet,delayed release oxycodone-acetaminophen 5 mg-325 1 tab PO BID PRN pain #60 tabs 04/29/25 Rx mg tablet (Percocet) oxycodone-acetaminophen 5 mg-325 1 tab PO BID PRN pain #60 tabs 05/26/25 Rx mg tablet (Percocet) cyclobenzaprine 10 mg tablet 10 mg PO TID PRN muscle spasm #90 06/23/25 Rx tabs gabapentin 300 mg capsule 300 mg PO TID #90 caps 06/23/25 Rx oxycodone-acetaminophen 5 mg-325 1 tab PO BID PRN pain #60 tabs 06/23/25 Rx mg tablet (Percocet) Allergies Allergy/AdvReac Type Severity Reaction Status Date / Time Sulfa (Sulfonamide Allergy Rash Verified 04/29/25 10:21 Antibiotics) Exam Constitutional Documenting provider has reviewed patient's vital signs: yes Common normals: no apparent distress, oriented x3, healthy appearing, alert and well nourished General appearance: cooperative [facility] Common normals: normocephalic, hearing grossly normal bilaterally and moist oral mucous membranes Head and scalp: normocephalic Eye Common normals: PERRL Pupil: PERRL Neck & C-Spine Common normals: full ROM General: normal visual inspection Chest Common normals: inspection of chest normal Respiratory Common normals: normal respiratory effort, no retractions and no use of accessory muscles Back & Pelvis Lumbar spine/lower back: ROM limited and straight leg raise negative bilaterally Other: strength 5/5 in BLE altered sensation right L4/5 Extremity Right lower extremity: knee joint Other: moderate pain with palpation, no edema noted. ROM intact Neuro Common normals: oriented x3 Sensorium/orientation: alert Psych Common normals: mental status grossly normal, thought process normal, cooperative, affect normal, speech normal and activity/motor behavior normal Speech: normal speech Thought process: normal thought process Results Additional Findings Additional findings: If on a controlled substance or opioids, I have checked an [place]AR[place] report on this patient and there are no aberrancies noted in the prescribing history.??If on a controlled substance or opioid a drug screen was completed and reviewed within the last year, and if there has not been a drug screen completed we ordered one today to monitor higher risk, state monitored pain medication use. As part of providing excellent, safe, comprehensive care, the following was completed at our patient's visit: 1. A medication reconciliation and review to ensure accurate knowledge of current/active medications, including asking our patients to inform us about any [id number] medications or herbal remedies/nutritional supplements/alternative remedies. 2. A review to specifically ensure our patients have had annual screening for screening for depression, screening for tobacco use, and screening for unhealthy alcohol use. For concerning screenings had a discussion with the patient, provided patient education, and recommended follow-up with primary care provider when appropriate. If patient noted with a risk of falling, they received education on strength, gait, and balance training to prevent future risk of falling. Portions of this note may have been carried over from the previous visit and updated as appropriate. Please note this office utilizes paper charting in addition to the electronic medical record. A list of current medications, vitals, and PMH is available there as the clinical staff outside of myself do not have access to [employer] charting during the clinic day operations. As part of providing quality comprehensive care the current medications, vitals, and PMH were reviewed in the paper chart. Assessment and Plan Assessment and Plan (1) Status post right knee replacement: Assessment and Plan: The patient has had over 3 months of moderate to severe right knee pain with functional impairment and inadequate response to conservative care including NSAIDS (unless there are contraindication such as concurrent blood thinners), multiple oral or topical pain medications, and home exercise program/physical therapy.? Patient has completed >6 weeks of guided home exercise program and/or formal physical therapy program without relief of their symptoms.? The Oswestry Disability Index was completed, and the patient scored a 42%.? (2) Chronic pain of right knee: (3) Myalgia, other site: (4) Lumbar stenosis with neurogenic claudication: Assessment and Plan: 01/25/25 right L4/5 L5/S1 TFESI >50% improvement in radicular pain greater than 3 months (5) Lumbar spondylosis: (6) Post laminectomy syndrome: (7) Lumbar radiculopathy: (8) Chronic prescription opiate use: Assessment and Plan: I feel these medications are improving the patient's quality of life and allow them to tolerate activities of daily living as well as participate in recreational activity.? The patient does not report intolerable side effects. The patient is NOT opioid naive and non-pharmacologic and non-opioid treatment has failed to significantly relieve the patient's pain and improve functionality. The patient has a diagnosis that is related to a somatic or visceral pain etiology. ? ?? I reviewed with the patient the potential risks and side effects with the use of? opioid medications including but not limited to respiratory depression,? sedation, and even . Within the last 12 months I have verified the patient has access to naloxone should? these effects occur. The patient was advised to let? their family know they had Naloxone in case they would need to administer? the medication. I advised the patient to avoid the use of any other? sedation substances including alcohol, THC, and benzodiazepines while? taking opioid medications due to the risk of compounding side effects and? detrimental outcomes. within the last 12 months I have reviewed the SYSTEM SUPPORT DEVELOPER, pain treatment agreement and urine drug screen.? ?? A drug screen was completed within the last year, and no aberrancies were noted regarding their use of controlled substances. The patient understands they are subject to the terms and conditions of the pain contract that they have signed. ? ?? I have checked an OAR[place] report on this patient today and there are no aberrancies noted in the prescribing history.? Plan when pt calls can proceed with right genicular nerve block x1 under fluoroscopy in consideration of RFA for chronic right knee pain post TKR continue current medications risks vs benefits reviewed continue f/u with NS as planned f/u 3 months for medication management, sooner if needed
== END 2025-06-30 08:06 | disposition home or self-care (01) ==
LOC: PM 08:06
PROVIDERS: PCP Family Medicine; Visit Provider Nurse Practitioner
DX: M25.561 Pain in right knee (principal); Z96.651 Presence of right artificial knee joint; M79.18 Myalgia, other site; M48.062 Spinal stenosis, lumbar region with neurogenic claudication; M47.816 Spondylosis without myelopathy or radiculopathy, lumbar region; M96.1 Postlaminectomy syndrome, not elsewhere classified; M54.16 Radiculopathy, lumbar region; Z79.891 Long term (current) use of opiate analgesic
CPT/HCPCS: G0463

== ENCOUNTER 2025-09-22 08:21 | Outpatient (OUT) | payer MEDICARE, OTHER, SELFPAY ==
--- OUTSIDE RECORDS SUMMARY | 2025-09-22 08:27 | XMS_ITS | CCD ---
Author Organization [facility] [place] Care Team Providers Care Dermatology Sales Representative Name Role Phone PHYSICIAN, DEFAULT Unavailable Unavailable [...] SALMERON ., ISELA Consulting Unavailable DEFRANCE, DR JLUIO Primary Care Unavailable [...] ., NARRAMONE Consulting Ceci vailable LAKSHMIPATHY ., LISA Attending [...] Provider UnavailCARL Michaels Referring Unavailable DEFRANCE, SUMANTH Nielsen Primary Care Unavailable SHAISTA NOLEN Referring Unavailable DEFRANCE, SUMANTH Nielsen Primary Care Unavailable CARL SOSA Referring Unavailable DEFRANCE, SUMANTH Nielsen Primary Care Unavailable SHAISTA NOLEN Referring Unavailable DEFRANCE, SUAMNTH Nielsen Primary Care Unavailable SHAISTA NOLEN Admitting Unavailable SHAISTA NOLEN Attending Unavailable SUMANTH HILL Primary Care Unavailable MARIA M VÁSQUEZ Attending Unavailable DEFRANCE, SUMANTH Nielsen Primary Care Unavailable SHAISTA NOLEN Attending Unavailable SHAISTA NOLEN Referring Unavailable SUMANTH HILL Primary Care Unavailable Sumanth Light Primary Care Provider Sumanth Hill MD Primary Care Provider JOHNATHAN KRAUS Referring Unavailable SUMANTH LIGHT Primary Care Unavaila JOHNATHAN Leos Referring Unavailable SUMANTH LIGHT Primary Care Unavaila alex Corona MD, Rosales Leon Attending Unavailable Chloe DELUCA, Rosales Leon Attending Unavailable Ovi Mcdaniel MD Primary Care Provider Unavailable Primary Care Provider UnavailANTONIA Ovalle Attending Unavailable ANTONIA LEIJA Referring Unavailable LIGHT, SUMANTH MALIK Primary Care Unavaila JESSICA Fernandez Attending Unavailable JESSICA TAY Attending Unavailable NON STAFF Primary Care Provider UnavailCharity Duncan MD Attending Provider [phone] SUMANTH LIGHT Primary Care Unavaila JOHNATHAN Leos Admitting Unavailable JOHNATHAN KRAUS Attending Unavailable DE MARTA, SUMANTH MALIK Primary Care Unavaila ble ANTONIA LEIJA Attending Unavailable DE MARTA, SUMANTH MALIK Primary Care Unavaila ble ANTONIA LEIJA Referring Unavailable DE MARTA, SUMANTH KING Primary Care Unavaila ble DE MARTA, SUMANTH KING Primary Care Unavaila ble JOHNATHAN KRAUS Attending Unavailable LISA NICHOLS Referring Unava ilable JOHNATHAN KRAUS Referring Unavailable DE MARTA, SUMANTH MALIK Primary Care Unavaila ble JOHNATHAN KRAUS Attending Unavailable DE MARTA, SUMANTH KING Primary Care Unavaila ble ANTONIA LEIJA Referring Unavailable DE MARTA, SUMANTH KING Primary Care Unavaila ble MAREK ESPINOZA Attending Unavailable DE MARTA, SUMANTH MALIK Primary Care Unavaila ble DE MARTA, SUMANTH KING Primary Care Unavaila ble DE MARTA, SUMANTH MALIK Primary Care Unavaila ble ANTONIA LEIJA Referring Unavailable DE MARTA, SUMANTH MALIK Primary Care Unavaila ble NON STAFF Primary Care Unavailable Charity Barkley Attending Unavailable Charity Barkley Admitting Unavailable SUMANTH HILL Referring Unavailable SUMANTH HILL Primary Care Unavailable OVI MCDANIEL Referring Unavailable LUKAS, OVI Primary Care Unavailable JODI CANALES I Referring Unavailable LUKAS, OVI Primary Care Unavailable JODI CANALES I Referring Unavailable LUKAS, OVI Primary Care Unavailable MINH HELLER Admitting Unavailable MINH HELLER Attending Unavailable MINH HELLER Referring Unavailable LUKAS, OVI Primary Care Unavailable KEN MARY Referring Unavailable LUKAS, OVI Primary Care Unavailable KEN MARY Referring Unavailable LUKAS, OVI Primary Care Unavailable Ovi Mcdaniel MD Primary Care Provider [phone] OVI MCDANIEL Attending Unavailable SUMANTH HILL Referring Unavailable LUKAS, OVI Primary Care Unavailable OVI MCDANIEL Attending Unavailable OVI MCDANIEL Referring Unavailable LUKAS, OVI Primary Care Unavailable JODI CANALES I Attending Unavailable OVI MCDANIEL Referring Unavailable LUKAS, OVI Primary Care Unavailable KEN MARY Attending Unavailable OVI MCDANIEL Referring Unavailable LUKAS, OVI Primary Care Unavailable OVI MCDANIEL Attending Unavailable SUMANTH HILL Referring Unavailable LUKAS, OVI Primary Care Unavailable Allergies Allergy ClassificationReported Allergen(s)Allergy TypeDate of OnsetReaction(s) Facility (13 sources)Sulfonamides (Antibiotic); Translations: [SULFA (SULFONAMIDE ANTIBIOTICS)]Propensity to adverse reactions to [id number] Work Phone: Medications Current Medications MedicationDrug Class(es)DatesSig (Normalized)Sig (Original)amoxicillin 500 mg oral capsule (6 sources)Penicillin-class AntibacterialStart: 02-25-2024 End: 20-50-8808hyselnyxsec (AMOXIL) 500 mg capsule 02/25/2024 08/11/2024 Discontinued (Alternate therapy)amoxicillin 875 mg / clavulanate 125 mg oral tablet (3 sources)Penicillin-class AntibacterialStart: 08-10-2025 End: 78-86-9411atsx 1 tablet by mouth once in the morningamoxicillin-pot clavulanate (AUGMENTIN) 875-125 mg per tablet Take 1 tablet by mouth in the morningand 1 tablet before bedtime. Do all this for 10 days. 20 tablet 08/10/2025 08/18/2025 Discontinued (Patient Stopped On Own)aspirin 81 mg delayed release oral tablet (11 sources)Platelet Aggregation Inhibitor, Nonsteroidal Anti-inflammatory Drug take 1 tablet by mouth once dailyaspirin, enteric coated (ASPIRIN, ENTERIC COATED) 81 mg EC tablet Take 81 mg by mouth once daily. Activebaclofen 10 mg oral tablet (10 sources)gamma-Aminobutyric Acid-ergic AgonistStart: 04-02-2024 End: 36-24-8517cwtf 0.5-1 tablets by mouth three times dailybaclofen (Lioresal) 10 MG tablet TAKE 1/2 - 1 TABLET BY MOUTH 3 TIMES A DAY 04/02/2024 ActiveCalcium (5 sources)Phosphate Binder, CalciumCalcium + D3 Activecalcium carbonate 500 mg oral tablet (20 sources)calcium carbonate (Os-Jarrett) 1250 (500 Ca) MG tablet 1 (one) time each day at the same time Activecalcium carbonate (OS-JARRETT 500) 500 mg calcium (1,250 mg) tablet 1 (one) time each day at the same time Activecalcium carbonate 1250 mg / cholecalciferol 200 unt oral tablet (20 sources)Vitamin Dtake 1 tablet by mouth once in the morningcalcium carbonate-vitamin D3 (OSCAL 500 + D) 500 mg(1,250mg) -200 units per tablet Take 1 tablet bymouth in the morning and 1 tablet in the evening. Take with meals. ActiveCentrum Silver (5 sources)Centrum Silver ActiveChondroitin Sulfates / Glucosamine (5 sources)Osteo Bi-Flex One Per Day Activeciprofloxacin 500 mg oral tablet (15 sources)Quinolone AntimicrobialStart: 04-12-2025 End: 30-97-6832siqo 1 tablet by mouth in the morning, then take 1 tablet by mouth at bedtimeciprofloxacin HCl (CIPRO) 500 mg tablet Indications: Acute bacterial simple cystitis Take 1 tablet (500 mg total) by mouth in the morning and 1 tablet (500 mg total) before bedtime. Do all this for 7days. 14 tablet 04/12/2025 04/19/2025 ActiveStart: 11-39-9911uptt 1 tablet by mouth once daily ciprofloxacin HCl (CIPRO) 500 mg tablet Take 1 tablet by mouth once daily. Until catheter removed 10 tablet 03/05/2017 Activecolchicine 0.6 mg oral tablet (1 source)Start: 69-64-4762gmuy 1 tablet by mouth once dailyColchicine 0.6 mg tablet Active 0.6 MG PO Daily August 12, 2025 12:00am Complies with drug therapycyclobenzaprine hydrochloride 10 mg oral tablet (20 sources)Muscle RelaxantStart: 93-51-5244Ryfepspjxbmrkos Active MG PO May 22, 2024 12:00amStart: 67-53-7784sdud 1 tablet by mouth three times daily as needed for muscle spasmscyclobenzaprine (FLEXERIL) 10 mg tablet Indications: Spondylolisthesis of lumbar region Take 1 tablet (10 mg total) by mouth 3 (three) times a day as needed for muscle spasms. This is an 10 day supply 30 tablet 2 04/23/2024 Activediclofenac sodium 75 mg delayed release oral tablet (20 sources)Nonsteroidal Anti-inflammatory DrugStart: 00-37-3632lpiqoobuvk (VOLTAREN) 75 mg EC tablet 01/19/2024 ActiveStart: 01-19-2024 End: 40-87-7929pthe 75 mg by mouth twice dailyDiclofenac Sodium Active 75 MG PO Twice daily January 29, 2024 12:00amdiclofenac, EC, (VOLTAREN) 75 mg EC tablet two times a day. ActiveDiclofenac Activedocusate sodium 100 mg oral capsule (11 sources)Start: 64-84-1055tswr 1 capsule by mouth twice dailydocusate sodium (COLACE) 100 mg capsule Take 1 capsule by mouth twice daily. To prevent constipation. If you develop diarrhea, please stop this medication. 20 capsule 03/05/2017 ActiveELDERBERRY FRUIT (20 sources) End: 34-61-2815SAELXEVINY FRUIT ORAL Take by mouth in the morning and at bedtime. 04/06/2025 DiscontinuedELDERBERRY FRUIT ORAL Take by mouth. Active ELDERBERRY FRUIT ORAL Take by mouth in the morning and at bedtime. Active Elderberry preparation (5 sources)Elderberry 500 MG as directed Orally Activefluorouracil 50 mg/ml topical cream (3 sources)Nucleoside Metabolic InhibitorStart: 29-27-6375dluijyioqbka (Efudex) 5 % cream Indications: Actinic keratosis Apply to directed areas on the scalpand temples twice a day x 14 days. Dispense 30 day supply but only use for 14 days. 40 g 5ActiveStart: 87-69-2903hkkncnpxnhai (Efudex) 5 % cream Indications: Actinic keratosis Apply to directed areas on the scalpand temples twice a day x 14 days. Dispense 30 day supply but only use for 14 days. 40 g 5Activegabapentin 300 mg oral capsule (20 sources)Anti-epileptic AgentStart: 52-25-6405fwvf 1 tablet by mouth three times dailygabapentin (NEURONTIN) 600 mg tablet Take 600 mg by mouth three times a day. 05/22/2024 ActiveStart: 27-76-3589dbfa 1 capsule by mouth three times dailygabapentin (NEURONTIN) 300 mg capsule Take 1 capsule (300 mg total) by mouth 3 (three) times a day.07/28/2025 ActiveStart: 79-68-5402Allrirqpga Active MG PO May 22, 2024 12:00amStart: 11-07-2023 End: 76-25-2118oeww 0.5 tablet by mouth in the morninggabapentin (NEURONTIN) 600 mg tablet Take 0.5 tablets (300 mg total) by mouth in the morning. 11/07/2023 08/18/2025 Discontinued (Duplicate order)Start: 57-36-3825nqgn 1 capsule by mouth twice dailygabapentin (NEURONTIN) 300 mg capsule TAKE 1 CAPSULE BY MOUTH TWICE A DAY 0 11/07/2023 ActiveStart: 11-07-2023 End: 06-87-1898sufy 600 mg by mouth twice axafz262 mg, oral, 2 times daily, First dose on Sat12/25/23 at 2100, PACU & Post-op, Look-alike/sound-alike medication - verify indication for use.glucosamine/chondr piña A sod (OSTEO BI- FLEX ORAL) (15 sources)take 1 tablet by mouth in the morningglucosamine/chondr piña A sod (OSTEO BI-FLEX ORAL) Take 1 tablet by mouth in the morning. Active End: 62-66-2754byjs 1 capsule by mouth in the morningglucosamine/chondr piña A sod (OSTEO BI-FLEX ORAL) Take 1 capsule by mouth in the morning. 0 12/27/2023 Discontinued (Stop Taking at Discharge)ibuprofen 800 mg oral tablet (1 source)Nonsteroidal Anti-inflammatory DrugStart: 84-71-7685jmyp 1 tablet by mouth every eight hoursIbuprofen 800 mg tablet Active 800 MG PO Every 8 hours 90 August 12, 2025 12:00am Complies with drug therapyketorolac tromethamine 10 mg oral tablet (11 sources)Nonsteroidal Anti-inflammatory Drug, Cyclooxygenase InhibitorStart: 09-05-2184octq 1 tablet by mouth every six hours as neededketorolac (TORADOL) 10 mg tablet Take 1 tablet by mouth every 6 hours as needed for Pain. 15 tablet 03/05/2017 ActivemethylPREDNISolone (14 sources)CorticosteroidStart: 04-23-2024 End: 03-43-8796rszptjEPUNOBJkkizz (MEDROL, CHARMAINE,) 4 mg tablet Indications: Spondylolisthesis of lumbar region follow package directions 21 tablet 04/23/2024 08/11/2024 Discontinued (Alternate therapy)Start: 04-23-2024 methylPREDNISolone (MEDROL, CHARMAINE,) 4 mg tablet Indications: Spondylolisthesis of lumbar region follow package directions 21 tablet 04/23/2024 ActiveStart: 18-27-2052aqcakgMMGFSHDxemab (MEDROL, CHARMAINE,) 4 mg tablet Indications: Status post lumbar laminectomy Take 1 tablet (4 mg total) by mouth See Admin Instructions. Use as directed by package instructions 21 kcsxfm6102/12/2024 ActiveStart: 11-14-2023 End: 42-61-9293crcbqgKPXYDKRjopav (MEDROL, CHARMAINE,) 4 mg tablet Indications: Lumbar radiculopathy, chronic , Neurogenic claudication follow package directions 21 tablet 0 11/14/2023 12/20/2023 DiscontinuedStart: 49-14-5515jslfxsNKDWIXUjqbtc (MEDROL, CHARMAINE,) 4 mg tablet Indications: Lumbar radiculopathy, chronic , Neurogenic claudication follow package directions 21 tablet 0 11/14/2023 Active Start: 10-22-2023 End: 55-46-9793uywgipDBCCUWEvvved (MEDROL, CHARMAINE,) 4 mg tablet follow package directions 21 tablet 0 10/22/2023 11/05/2023 DiscontinuedStart: 10-22-2023 methylPREDNISolone (MEDROL, CHARMAINE,) 4 mg tablet follow package directions 21 tablet 0 10/22/2023 Activemv-min/folic/K1/lycopen/lutein (CENTRUM SILVER MEN ORAL) (20 sources)take 1 tablet by mouth once in the morningmv- min/folic/K1/lycopen/lutein (CENTRUM SILVER MEN ORAL) Take 1 tablet by mouth in the morning. Activetake 1 tablet by mouth once dailymv- min/folic/K1/lycopen/lutein (CENTRUM SILVER MEN ORAL) Take 1 tablet by mouth once daily. Activetake 1 tablet by mouth once dailymv- min/folic/K1/lycopen/lutein (CENTRUM SILVER MEN ORAL) Take 1 tablet by mouth once daily. 0 Activetake 1 tablet by mouth once dailymv- min/folic/K1/lycopen/lutein (CENTRUM SILVER MEN ORAL) Take 1 tablet by mouth once daily. 0naloxone hydrochloride 40 mg/ml nasal spray (3 sources)Opioid AntagonistStart: 69-26-6600aikmecbt (NARCAN) 4 mg/actuation spray,non-aerosol nasal spray Administer 1 spray (4 mg total) intoalternating nostrils as needed for opioid reversal. 1 each 12/27/2023 Activeoxybutynin chloride 5 mg oral tablet (11 sources)Cholinergic Muscarinic AntagonistStart: 21-24-9470ucep 1 tablet by mouth every eight hours as neededoxybutynin (DITROPAN) 5 mg tablet Take 1 tablet by mouth every 8 hours as needed (for bladder spasms). 20 tablet 03/06/2017 ActiveoxyCODONE hydrochloride 5 mg oral tablet (8 sources)Opioid AgonistStart: 04-02-2025 End: 36-99-7856memv 5-10 mg enteral route every six hours as neededoxyCODONE (ROXICODONE) 5 mg immediate release tablet 1-2 tablets (5-10 mg total) by feeding tube route every 6 (six) hours as needed. 04/02/2025 04/09/2025 Active Start: 12-27-2023 End: 76-22-8433mevx 1 tablet by mouth every four hours as needed for pain oxyCODONE (ROXICODONE) 5 mg immediate release tablet Indications: Radiculopathy, lumbar region Take1 tablet (5 mg total) by mouth every 4 (four) hours as needed for pain for up to 7 days. Max Daily Amount: 30 mg 42 tablet 0 12/27/2023 01/03/2024 ActiveStart: 12-27-2023 End: 26-30-4455auyVMWFQP (ROXICODONE) 5 mg immediate release tablet Indications: Radiculopathy, lumbar region Take1-2 tablets (5-10 mg total) by mouth every 6 (six) hours as needed for pain for up to 7 days. Max Daily Amount: 40 mg 56 tablet 0 12/27/2023 12/27/2023 DiscontinuedStart: 12-25-2023 End: 01-77-6976wrxo 1 tablet by mouth every three hours as needed for pain oxyCODONE (ROXICODONE) immediate release tablet 5 mgOXYCODONE HCL/ACETAMINOPHEN (PERCOCET ORAL) (11 sources)take 1 tablet by mouth once dailyOXYCODONE HCL/ACETAMINOPHEN (PERCOCET ORAL) Take 1 tablet by mouth once daily. ActivepredniSONE 5 mg oral tablet (3 sources)Start: 80-89-9754daoz 1 tablet by mouth in the morningpredniSONE (DELTASONE) 5 mg tablet Take 1 tablet (5 mg total) by mouth in the morning. 08/17/2025 ActiveStart: 22-50-3054Lcsngjkeun 5 mg tablet Active 5 MG PO daily 22 05August 17, 2025 12:00am Take 4 pills by mouth x2 days, take 3 pills by mouth x2 days, take 2 pills by mouth x2 days, take 1 pill by mouth x1 day. Co mplies with drug therapyStart: 11-05-2023 End: 38-33-4120bavz 6 tablets by mouth once daily, then take 1 tablet by mouth once daily at mealtimepredniSONE (STERAPRED DS) 10 mg tablet pack Take by mouth daily for 8 days. 6 tabs qd x 3 d then 1 less each day with food 33 tablet 0 11/05/2023 11/13/2023 Activesildenafil 20 mg oral tablet (11 sources)Phosphodiesterase 5 InhibitorStart: 35-99-6750rjnc 2-5 tablets by mouth every hoursildenafil (REVATIO) 20 mg tablet Take 2-5 tablets by mouth one hour prior to sexual activity. 50 tablet 5 05/01/2017 Activesulfamethoxazole 800 mg / trimethoprim 160 mg oral tablet (1 source)Dihydrofolate Reductase Inhibitor Antibacterial, Sulfonamide AntimicrobialStart: 04-07-2025 End: 71-03-7321msyx 1 tablet by mouth once in the morningsulfamethoxazole- trimethoprim (BACTRIM DS) 800-160 mg per tablet Indications: Hematuria, unspecified type , Acute bacterial simple cystitis Take 1 tablet by mouth in the morning and 1 tablet before bedtime. Do all this for 7 days. 14 tablet 04/07/2025 04/12/2025 Discontinued (Allergic response)Super B Complex (5 sources)Super B Complex Active Completed/Discontinued Medications MedicationDrug Class(es)DatesSig (Normalized)Sig (Original)acetaminophen 500 mg oral tablet (13 sources)Start: 04-02-2025 End: 28-39-5752dyak 2 tablets by mouth every eight hoursacetaminophen (TYLENOL) 500 mg tablet 2 tablets by ORAL/FEEDING TUBE route every 8 hours. 04/02/2025 05/12/2025 DiscontinuedStart: 84-46-5740xwsi 2 tablets by mouth every four hours as needed for pain and feveracetaminophen (TYLENOL) 325 mg tablet Take 2 tablets (650 mg total) by mouth every 4 (four) hours as needed for pain or fever. 12/27/2023 ActiveStart: 12-25-2023 End: 23-70-3438ubyn 1 tablet by mouth every four hours as needed for yhvv488 mg, oral, Every 4 hours PRN, mild pain - pain scale 1-3, fever of 38.6, Starting on Sat12/25/23at 1932, PACU & Post-op, Do not give for fever if patient received acetaminophen containing products within 4 hours.Start: 12-25-2023 End: 55-49-3184zqnpgabbceqsg (TYLENOL EXTRA STRENGTH) tablet 1,000 mg acetaminophen 325 mg / oxyCODONE hydrochloride 5 mg oral tablet (20 sources)Opioid AgonistStart: 05-22-2024 End: 62-08-5439Wzoxavpcg-Acetaminophen 5-325 mg tablet Discontinued TAB PO May 22, 2024 12:00am October 21, 2024 8:59amtake 1 tablet by mouth once in the evening, then take 1-2 tablets by mouth once dailyoxyCODONE-acetaminophen (PERCOCET) 5-325 mg per tablet Take 1 tablet by mouth in the evening. 1 to 2 tablets daily. Active End: 95-55-2124yqtn 3 tablets by mouth three times dailyoxyCODONE-acetaminophen (PERCOCET) 5-325 mg per tablet Take 3 tablets by mouth 3 (three) times a day. 0 12/27/2023 Discontinued (Stop Taking at Discharge)take 1 tablet by mouth every four hours as needed for painoxyCODONE-acetaminophen (PERCOCET) 5-325 mg per tablet Take 1 tablet by mouth every 4 (four) hours as needed for pain. 0 Active Percocet ActiveB-complex with vitamin C tablet (13 sources) End: 74-79-4035iovh 2 tablets by mouth in the morningB-complex with vitamin C tablet Take 2 tablets by mouth in the morning. 04/06/2025 Discontinuedtake 2 tablets by mouth in the morningB-complex with vitamin C tablet Take 2 tablets by mouth in the morning. Activetake 2 tablets by mouth in the morningB-complex with vitamin C tablet Take 2 tablets by mouth in the morning. 0 Activetake 2 tablets by mouth in the morningB-complex with vitamin C tablet Take 2 tablets by mouth in the morning. 0bisacodyl 10 mg rectal suppository (1 source)Stimulant LaxativeStart: 12-27-2023 End: 01-42-826439 mg, rectal, As needed, constipation, if no BM within 6 hours of administering Milk of Magnesia, Starting on Sat12/27/23 at 0000, PACU & Post- op, Start Post-Op Day 2 Look-alike/sound-alike medication - verify indication for use.calcium chloride 0.0014 meq/ml / potassium chloride 0.004 meq/ml / sodium chloride 0.103 meq/ml / sodium lactate 0.028 meq/ml injectable solution (2 sources)Start: 12-27-2023 End: 26-95-0155xbuurpld ringers bolusStart: 12-25-2023 End: 98-47-2797oqktgwin ringers infusionceFAZolin (ANCEF) 2,000 mg in sodium chloride 0.9 % 50 mL IVPB-MBP (1 source)Start: 12-25-2023 End: 25-49-6285txgd 2000 mg intravenously every eight hours2,000 mg, intravenous, at 100 mL/hr, Administer over [...] dissolve drug prior to administration, Indication: Surgical prophylaxisclindamycin 300 mg oral capsule (1 source)Lincosamide AntibacterialStart: 08-10-2025 End: 42-47-1141hfav 1 capsule by mouth three times dailyclindamycin (CLEOCIN) 300 mg capsule Take 1 capsule (300 mg total) by mouth 3 (three) times a day for 10 days. 30 capsule 08/10/2025 08/10/2025 Discontinueddexamethasone 0.1 mg/ml oral solution (2 sources)Corticosteroid End: 55-47-0819uoeONYSHngdkf (DECADRON) 0.5 mg/5 mL elixir Take by mouth daily. 0 11/05/2023 Discontinueddocusate sodium 50 mg / sennosides, longterm 8.6 mg oral tablet (1 source)Start: 12-26-2023 End: 72-00-3667bara 1 tablet by mouth twice daily for diarrhea, then take 1 tablet by mouth once daily for diarrhea1 tablet, oral, 2 times daily, First dose on Sat12/26/23 at 0900, PACU & Post-op, Start Post-OpDay 1: Hold for diarrhea0.4 ml enoxaparin sodium 100 mg/ml prefilled syringe (1 source)Low Molecular Weight HeparinStart: 12-26-2023 End: 91-54-385448 mg, subcutaneous, Daily, First dose on Sat12/26/23 at 0600, PACU & Post-op, When Creatinine Clearance 30 mL/min or greater Look-alike/sound-alike medication - verify indication for use.1 ml fentaNYL 0.05 mg/ml injection (1 source)Opioid AgonistStart: 12-25-2023 End: 30-52-2299dqsdmLBD (SUBLIMAZE) injection 50 mcgfentaNYL (SUBLIMAZE) injection 12.5 mcg (1 source)Start: 12-25-2023 End: 04-10-8592fied 12.5 ug intravenously every hour as neededfentaNYL (SUBLIMAZE) injection 12.5 mcgglucagon (rdna) 1 mg injection (1 source)Antihypoglycemic AgentStart: 12-25-2023 End: mg, intramuscular, As needed, low blood sugar, [...] than 70 mg/dL after initial treatment, repeat treatment.150 ml glucose 50 mg/ml injection (3 sources)Start: 12-25-2023 End: 69-48-906331 g, oral, As needed, low blood sugar, blood glucose less than 70 mg/dL, Starting on Sat12/25/23 at 1932, PACU & Post-op, If patient conscious and taking PO. If blood glucose is not greater than70 mg/dL after initial treatment, repeat treatment.Start: 12-25-2023 End: mL, intravenous, As needed, low blood sugar, blood glucose less than 70 mg/dL and unconscious orNPO with IV access, Starting on Sat12/25/23 at [...] treatment, repeat treatment. VESICANT (RED) Warning: HYPERTONIC solution.Start: 12-25-2023 End: 90-62-2480vnmf 70 mg intravenously every xfcp283 mL/hr, intravenous, Continuous PRN, blood glucose less than 70 mg/dL, Starting on Sat12/25/23 at 1932, PACU & Post-op, Use immediately following dextrose 50% or glucagon treatment for patients who are unconscious or NPO. Contact prescriber for additional orders. If blood glucose is not greater than 70 mg/dL after initial treatment, repeat treatment.lidocaine 0.04 mg/mg medicated patch (16 sources)Antiarrhythmic, Amide Local AnestheticStart: 04-03-2025 End: 12-66-0858gcvib 1 dose transdermal route once dailylidocaine (SALONPAS) 4 % patch Apply 1 patch as directed once daily. 5 patch 04/03/2025 06/29/2025 D iscontinuedStart: 12-25-2023 End: 10-91-7121nyugnoifh PF (XYLOCAINE) 10 mg/mL (1 %) injection 1 mgmagnesium hydroxide 80 mg/ml oral suspension (1 source)Start: 12-27-2023 End: mL, oral, 2 times daily PRN, if no BM by post-op day 2, Starting on Sat12/27/23 at 0000, PACU & Post-op, Start Post-Op Day 2: DO NOT use in Renal/Dialysis patients Shake well.methocarbamol 750 mg oral tablet (18 sources)Muscle RelaxantStart: 04-02-2025 End: 29-59-3838udyh 1 tablet by mouth three times dailymethocarbamoL (ROBAXIN) 750 mg tablet Take 1 tablet (750 mg total) by mouth 3 (three) times a day. 0 04/02/2025 08/09/2025 Discontinued (Therapy completed)Start: 12-26-2023 End: 20-11-1944vdkr 1 tablet by mouth three times daily as needed for muscle spasmsmethocarbamoL (ROBAXIN) 500 mg tablet Take 1 tablet (500 mg total) by mouth 3 (three) times a day as needed for muscle spasms for up to 14 days. 42 tablet 0 12/27/2023 01/10/2024 Active2 ml midazolam 1 mg/ml cartridge (1 source)BenzodiazepineStart: 12-25-2023 End: 77-88-6436xkoivhcwz (PF) (VERSED) injection 2 mg2 ml ondansetron 2 mg/ml injection (1 source)Serotonin-3 Receptor AntagonistStart: 12-25-2023 End: 38-23-8185gbid 4 mg intravenously every six hours as needed for nausea and vomiting4 mg, intravenous, Every 6 hours PRN, nausea, vomiting, Starting on Sat12/25/23 at 1932, PACU &Post-op, Administer over 2-5 minutes.polyethylene glycol 3350 87454 mg powder for oral solution (1 source)Osmotic LaxativeStart: 12-25-2023 End: 00-76-602675 g, oral, Daily, First dose on Sat12/25/23 at 1945, PACU & Post-op, Look-alike/sound-alike medication - verify indication for use. Dissolve 1 packet (17 gm) in 8 ounces of water, juice, soda, coffee or tea.125 ml sodium chloride 9 mg/ml prefilled syringe (3 sources)Start: 12-25-2023 End: 17-08-0235oiri 1 dose by mouth once3 mL, intravenous, Every 12 hours scheduled, First dose on Sat12/25/23 at 2100, PACU & Post-op,Once tolerating oral intakeStart: 12-25-2023 End: 20-35-3331mmpbbt chloride 0.9 % flush 3 mLtiZANidine 4 mg oral tablet (18 sources)Central alpha-2 Adrenergic AgonistStart: 12-25-2023 End: 02-67-0845ateh 8 mg by mouth three times daily for muscle spasms8 mg, oral, 3 times daily, First dose on Sat12/25/23 at 2000, PACU & Post-op, Look-alike/sound-alike medication - verify indication for use., Indications: muscle spasmStart: 04-30-2023 End: 85-14-8880tyun 1 tablet by mouth every six hours as neededtiZANidine (ZANAFLEX) tablet 4 mgStart: 04-30-2023 End: 73-48-3353amYLLscexh (ZANAFLEX) 4 mg tablet Indications: muscle spasm Take 2 tablets (8 mg total) by mouth inthe morning and 2 tablets (8 mg total) at noon and 2 tablets (8 mg total) in the evening. Indications: muscle spasm. 0 04/30/2023 12/27/2023 Discontinued (Stop Taking at Discharge)take 1 tablet by mouth every eight hourstiZANidine HCl 4 MG 1 tablet as needed Orally Three times a day Activetriamcinolone acetonide 40 mg/ml injectable suspension (11 sources)CorticosteroidStart: 12-35-8414Zfdlrfi-40 Aug, 40 mgStart: 36-48-4266Tqzvqxn-40 Oct, 20 mgvit C/zinc citrate/elderberry (ELDERBERRY IMMUNE HEALTH ORAL) (1 source) End: 59-49-5521egu C/zinc citrate/elderberry (ELDERBERRY IMMUNE HEALTH ORAL) Take 1 Gum by mouth in the morning. Discontinued (Stop Taking at Discharge) Problems Active Problems Problem ClassificationProblemDateDocumented DateEpisodic/ChronicAcute posthemorrhagic anemia (10 sources)Acute posthemorrhagic anemia; Translations: [Acute posthemorrhagic anemia]Onset: 665310-32-8294AywjwdicRazxsjprr and vision defects (20 sources)Visual impairment; Translations: [Unspecified visual loss]Onset: 602042-49-9051MzzlzycRqpasq of prostate (20 sources)Malignant tumor of prostate; Translations: [Malignant neoplasm of prostate]Onset: 625158-22-1466WgglaosIenlssvgpc and other anemia (1 source)Anemia; Translations: [Anemia, unspecified]08-48-8990QfciafgcLnihqluqn of lipid metabolism (4 sources)Pure hypercholesterolemia; Translations: [Pure hypercholesterolemia, unspecified]Onset: 171837-07-3319MvynkabJfvhmabnw of unspecified nature or uncertain behavior (2 sources)Neoplastic disease; Translations: [Neoplasm of unspecified behavior of bone, soft tissue, and skin]36-22-4893AlnfhysmFrnkczecxdxcem (20 sources)Bilateral primary osteoarthritis of hip; Translations: [Unilateral primary osteoarthritis of first carpometacarpal joint, left hand]Onset: 03-54-0220MaqoyaqAeivr acquired deformities (9 sources)Lumbar spondylolisthesis; Translations: [Spondylolisthesis, lumbar region]90-41-7109EvdodnkbErkit aftercare (1 source)Surgical follow-up; Translations: [Encounter for removal of sutures] 33-45-4959SenxenlsNpxcw and unspecified benign neoplasm (2 sources)Melanocytic nevus of trunk; Translations: [Melanocytic nevi of trunk] 37-85-4265QetyrpakAhxio connective tissue disease (14 sources)History of total knee arthroplasty; Translations: [Presence of unspecified artificial knee joint]Onset: 356627-33-5440EbkfnkgRfcge connective tissue disease (1 source)Presence of unspecified artificial knee joint; Translations: [Status post total knee replacement, unspecified laterality]Onset: 92-38-8641Sdjkxal Other connective tissue disease (1 source)Other muscle spasm; Translations: [OTHER MUSCLE SPASM]Onset: 37-00-3286BwjdqgquInilm connective tissue disease (10 sources)Pain in left hand; Translations: [Pain in limb]Onset: 10-01-2022 EpisodicOther connective tissue disease (4 sources)Impingement syndrome of right shoulderEpisodicOther connective tissue disease (5 sources)Hand pain; Translations: [Pain in left hand]Onset: 08-09-2025 53-56-1149UqgglounQiomd connective tissue disease (12 sources)History of lumbar fusion; Translations: [Arthrodesis status]Onset: 386661-64-3763EbvaheknAmnsd connective tissue disease (8 sources)Pain of left hand; Translations: [Pain in left hand]01-27-2024 EpisodicOther connective tissue disease (1 source)Swelling of hand; Translations: [Other specified soft tissue disorders]37-53-7213WdiyriknXsgik connective tissue disease (2 sources)Other specified soft tissue disorders; Translations: [Other specified soft tissue disorders]Onset: 15-44-3447NrxzklwfYzger injuries and conditions due to external causes (1 source)Personal history of (healed) traumatic fracture; Translations: [PERSONAL HISTORY OF (HEALED) TRAUMATIC FRACTURE]Onset: 60-92-1573MmoxfpbzEomwm nervous system disorders (5 sources)Other chronic pain; Translations: [OTHER CHRONIC PAIN]Onset: 47-46-4251LfaaxxuUvpay nervous system disorders (14 sources)Acute postoperative pain; Translations: [Other acute postprocedural pain]Onset: 657287-68-8526ZomgsvvbPjvxd nervous system disorders (2 sources)Numbness and tingling sensation of skin; Translations: [Anesthesia of skin]21-15-0080DuacevswZfqov nervous system disorders (1 source)Anesthesia of skin; Translations: [Numbness and tingling]Onset: 16-65-2176VtqmvsaeKeowz nervous system disorders (1 source)Paresthesia of skin; Translations: [Numbness and tingling]Onset: 63-03-6813NecccoapXzlsi non-epithelial cancer of skin (1 source)Basal cell carcinoma of truncal skin; Translations: [Basal cell carcinoma of skin of other part of trunk]79-23-4199XkeoltumYuspl non-traumatic joint disorders (4 sources)Other specified arthritis, left hand; Translations: [OTHER SPECIFIED ARTHRITIS LEFT HAND]Onset: 82-09-6863MpbjturPvcos non-traumatic joint disorders (4 sources)Pain in right shoulderEpisodicOther nutritional; endocrine; and metabolic disorders (10 sources)Obesity caused by energy imbalance; Translations: [Class 1 obesity due to excess calories with bodymass index (BMI) of 30.0 to 30.9 in adult]Onset: 352186-39-4667IzloljhIxiic skin disorders (2 sources)Actinic keratosis; Translations: [Actinic keratosis]06-02-2025 EpisodicOther skin disorders (2 sources)Lentiginosis; Translations: [Other melanin hyperpigmentation] 60-59-7369MexwiuxrXvpgw skin disorders (2 sources)Seborrheic keratosis; Translations: [Other seborrheic keratosis] 43-13-8055EwapmtloIklitlwn codes; unclassified (1 source)History of operative procedure on lumbar spinal structure; Translations: [Other specified postprocedural states]88-51-9521MqbeilonWiyfqwhp codes; unclassified (1 source)Postoperative state; Translations: [Other specified postprocedural states]21-94-4476MuhwanmyLwoxhkq and strains (4 sources)Other sprain of right shoulder joint, initial encounterEpisodic Superficial injury; contusion (4 sources)Contusion of right shoulder, initial encounterEpisodicUnclassified (2 sources)Unknown / UNK(Unknown)Onset: 03-80-3440Tdinnnhlathk (4 sources)LOW BACK PAIN, UNSPECIFIED; Translations: [LOW BACK PAIN, UNSPECIFIED]Onset: 18-81-4877Vydmbkcicpzt (1 source)CONTACT W/AND (SUSP) EXPOS COVID-19; Translations: [CONTACT W/AND (SUSP) EXPOS COVID-19]Onset: 95-38-5261Wfyacddbkumb (1 source)Patient encounter tobwnc78-98-2394Uiomteqozwzs (4 sources)History of lumbar -60-5589Yttfeqczsaku (3 sources)SI joint oabrgaqow09-01-6479Yjglampoxiuj (1 source)Annual ExamOnset: 33-45-8856Ponjpsgysvnz (1 source)Suture / Staple RemovalOnset: 04-14-2025 Past or Other Problems Problem ClassificationProblemDateDocumented DateEpisodic/Chronic Administrative/social admission (2 sources)Education and/or schooling finding; Translations: [Problems related to education and literacy, unspecified]Onset: 387084-63-7326SyftniilWzasmh of prostate (5 sources)History of malignant neoplasm of prostate; Translations: [Personal history of malignant neoplasm ofprostate]Onset: 240650-05-2142Ollrbslo Deficiency and other anemia (1 source)Anemia, unspecified; Translations: [Anemia, unspecified type]Onset: 96-36-2444AatuxleiZevawjyxghygn symptoms and ill-defined conditions (18 sources)Unspecified abnormal findings in urine; Translations: [Abnormal urine]Onset: 969728-63-3535IukhxdmyZpptxiwibyjxy and screening for infectious disease (2 sources)Suspected carrier of methicillin resistant staphylococcus aureus; Translations: [Carrier or suspected carrier of Methicillin resistant Staphylococcus aureus]Onset: 646893-57-2325VarwwldjVwirbhitqw obstruction without hernia (20 sources)Partial obstruction of small bowel; Translations: [Partial intestinal obstruction, unspecified as to cause]Onset: 03-12-2017 Resolved: 182590-75-2128XnxpuzchDbbh disorders (20 sources)Mood disordersOnset: 07-29-2023 Resolved: Other acquired deformities (3 sources)Spondylolisthesis, lumbar region; Translations: [Spondylolisthesis, lumbar region]Onset: 63-06-9688VdaserdiHmdqp aftercare (1 source)Encounter for therapeutic drug level monitoring; Translations: [Encounter for therapeutic drug level monitoring]Onset: 06-63-3348KgtyjxabIbesm aftercare (1 source)residential (current) use of 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; 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]Onset: 95-85-5638MkavypyqMuvxy aftercare (1 source)Monitoring status; Translations: [Encounter for therapeutic drug level monitoring]08-12-8258FzogexozJvomp connective tissue disease (3 sources)Arthrodesis status; Translations: [ARTHRODESIS STATUS]Onset: 07-93-0706InpbxuhhBxhcm connective tissue disease (1 source)Other symptoms and signs involving the nervous system; Translations: [Other symptoms and signs involving the nervous system]Onset: 79-39-7840Fdjtjffj Other connective tissue disease (20 sources)Neurogenic claudication; Translations: [Other symptoms and signs involving the nervous system]Onset: 297555-83-8969LgtucgwcLnyzm connective tissue disease (1 source)Pain in right lower limb; Translations: [Pain in right leg]02-12-2024 EpisodicOther connective tissue disease (1 source)Other symptoms and signs involving the musculoskeletal system; Translations: [Other musculoskeletalsymptoms referable to limbs]02-12-2024 EpisodicOther nervous system disorders (2 sources)Other acute postprocedural pain; Translations: [Acute post-operative pain]Onset: 81-82-7681GrcurqkeTxush screening for suspected conditions (not mental disorders or infectious disease) (20 sources)Radiology result abnormal; Translations: [Abnormal findings on diagnostic imaging of other parts ofmusculoskeletal system]Onset: 10-09-2016 Resolved: 839513-96-4720VmmrgqdiYmmeq skin disorders (20 sources)Eruption; Translations: [Rash and other nonspecific skin eruption] Onset: 03-12-2017 Resolved: 101130-35-0553QopembmpOguufwyo codes; unclassified (2 sources)Other specified postprocedural states; Translations: [Other specified postprocedural states]Onset: 74-84-6370YdqqezgoDlbaqydp codes; unclassified (20 sources)Localized edema; Translations: [Localized edema]Onset: 02-08-2020 71-53-2793TbvmjyomExccuclo codes; unclassified (2 sources)History of lumbar laminectomy; Translations: [Other specified postprocedural states]41-97-0393MdgmkpszSouzyuvo codes; unclassified (1 source)Cognitive perceptual pattern; Translations: [Unspecified symptoms and signs involving general sensations and perceptions]18-66-1718Pvrdxrsh Spondylosis; intervertebral disc disorders; other back problems (20 sources)Sacroiliitis, not elsewhere classified; Translations: [Other intervertebral disc degeneration, lumbar region]Onset: 04-20-1996 Resolved: 04-84-9659BsnpifjQxvxmedgigd; intervertebral disc disorders; other back problems (20 sources)Sacrococcygeal disorders, not elsewhere classified; Translations: [Intervertebral disc disorders with radiculopathy, lumbar region]Onset: 80-79-9648OfcijlhyZbhzdoq (1 source)Syncope and collapse; Translations: [Syncope and collapse]Onset: 83-48-0786XwdoxyjmDejntrraexsi (1 source)LOW BACK PAIN, UNSPECIFIED; Translations: [LOW BACK PAIN, UNSPECIFIED] Onset: 61-26-5131Zedhmvfuavku (4 sources)Onset: 08-09-2025 Resolved: 808550-80-8790Wulvrvw tract infections (20 sources)Urinary tract infectious disease; Translations: [Urinary tract infection, site not specified]Onset: 05-08-2017 Resolved: 878060-05-2677KtssudnrLjitnsut veins of lower extremity (20 sources)Pain co-occurrent and due to varicose veins of right leg; Translations: [Varicose veins of right lower extremity with pain]Onset: 941937-36-2012Vyxaozyt Results Test NameValueInterpretationReference RangeFacilityC-REACTIVE PROTEINon 08-09-2025 REACTIVE PROTEIN2.7 mg/dLHigh<=0.7[facility] SystemComment on above:Performed By: #### CMP, 44008-4, CBCA, THYR #### [facility] ([id number]) [address] [place], [place] [address]TJP WITH AUTO DIFFERENTIALon 65-24-3451NUHAXJPPD ABSOLUTE COUNT (10*3/UL) BY AUTOMATED COUNT0.1 10*3/uLNormal0.0-0.2PPike [facility] Comment on above:Performed By: #### CBCA #### [facility] ([facility]) [address] [place] [address] VIRBASOPHILS RELATIVE PERCENT BY AUTOMATED COUNT0.9 %Normal [facility] SystemComment on above:Performed By: #### CBCA #### [facility] ([facility]) [address] [place] [address] VIRCELLAVISION DIFFERENTIAL TYPEAUTOMATED DIFFERENTIALNormal [facility] SystemComment on above:Performed By: #### CBCA #### [facility] ([facility]) [address] [place] [address] VIREosinophils (Bld) [#/Vol]0.3 10*3/uLNormal0.0-0.4AC[facility] SystemComment on above:Performed By: #### CBCA #### [facility] ([facility]) [address] [place] [address] VIREOSINOPHILS RELATIVE PERCENT BY AUTOMATED COUNT2.4 %Normal [facility] SystemComment on above:Performed By: #### CBCA #### [facility] ([facility]) [address] [place] [address] VIRErythrocyte distribution width (RBC) [Ratio]14.4 %Normal 11.5-15[facility] SystemComment on above:Performed By: #### CBCA #### [facility] ([facility]) [address] [place] [address] VIRHematocrit (Bld) [Volume fraction]46.6 %Gorscy66-69KigNptxlvChristus Santa Rosa Hospital – Medical CenterComment on above:Performed By: #### CBCA #### [facility] ([facility]) [address] [place] [address] VIRHemoglobin (Bld) [Mass/Vol]15.4 g/eGXhiwbc87-19ToqFvptuoACMC Healthcare SystemComment on above:Performed By: #### CBCA #### [facility] ([facility]) [address] [place] [address] VIRLYMPHOCYTES ABSOLUTE COUNT (10*3/UL) BY AUTOMATED COUNT1.5 10*3/uLNormal1.0-3.5PPike Community HospitalComment on above:Performed By: #### CBCA #### [facility] ([facility]) [address] [place] [address] VIRLYMPHOCYTES RELATIVE PERCENT BY AUTOMATED COUNT11.9 %Normal [facility] SystemComment on above:Performed By: #### CBCA #### [facility] ([facility]) [address] [place] [address] VIRMCH (RBC) [Entitic mass]30.2 tsVyjlhr06-49RpvYlkokvChristus Santa Rosa Hospital – Medical CenterComment on above:Performed By: #### CBCA #### [facility] ([facility]) [address] [place] [address] VIRMCHC (RBC) [Mass/Vol]33.1 g/yDKnfnms30-56OkgWghmfzChristus Santa Rosa Hospital – Medical CenterComment on above:Performed By: #### CBCA #### [facility] ([facility]) [address] [place] [address] VIRMCV (RBC) [Entitic vol]91 aUOddbhx12-280DpgSofyxf [facility]remont HospitalComment on above:Performed By: #### CBCA #### [facility] ([facility]) [address] [place] [address] VIRMONOCYTES ABSOLUTE COUNT (10*3/UL) BY AUTOMATED COUNT1.1 10*3/uLHigh0.0-0.9AC[facility] SystemComment on above:Performed By: #### CBCA #### [facility] ([facility]) [address] [place] [address] VIRMONOCYTES RELATIVE PERCENT BY AUTOMATED COUNT8.7 %Normal [facility] SystemComment on above:Performed By: #### CBCA #### [facility] ([facility]) [address] [place] [address] VIRNEUTROPHILS ABSOLUTE COUNT BY AUTOMATED COUNT9.4 10*3/uLHigh 1.5-6.6AC[facility] SystemComment on above:Performed By: #### CBCA #### [facility] ([facility]) [address] [place] [address] VIRNEUTROPHILS RELATIVE PERCENT BY AUTOMATED COUNT76.1 %Normal [facility] SystemComment on above:Performed By: #### CBCA #### [facility] ([facility]) [address] [place] [address] VIRPlatelet mean volume (Bld) [Entitic vol]7.8 fLNormal7-12 [facility] SystemComment on above:Performed By: #### CBCA #### [facility] ([facility]) [address] [place] [address] VIRPlatelets (Bld) [#/Vol]284 10*3/yXXakchk524-523PvoUxofnr [facility] HospitalComment on above:Performed By: #### CBCA #### [facility] ([facility]) [address] [place] [address] VIRRBC COUNT5.10 X10E12/LNormal4.1-5.7AC[facility] SystemComment on above:Performed By: #### CBCA #### [facility] ([facility]) [address] [place] [address] VIRWBC (Bld) [#/Vol]12.3 10*3/uLHigh4-11[facility] SystemComment on above:Performed By: #### CBCA #### [facility] ([facility]) [address] [place] [address] VIRERYTHROCYTE SEDIMENTATION RATE (ESR)on 35-82-3031VSE, ERYTHROCYTE SEDIMENTATION RATE23 mm/hHigh0-20[facility] SystemComment on above:Performed By: #### NGOC, 78454-3, CBCA, THYR #### [facility] ([id number]) [address] [place], [place] [address]MKPX ACIDon 82-72-7705Bhdba [Mass/Vol]5.3 mg/dLNormal2.6-7.2 [facility] SystemComment on above:Performed By: #### NGOC, 15084-0, CBCA, THYR #### [facility] ([id number]) [address] [place], [place] [address]ST LUMBAR 2V AP/LATon 30-38-6928WV LUMBAR 2V AP/LAT* * *Final Report* * * DATE OF EXAM: Jul 30 2025 9:21AM NRX 5229 - XR LUMBAR 2V AP/LAT / PROCEDURE REASON: multiple diagnoses * * * * Physician Interpretation * * * * RESULT: EXAM: XR LUMBAR 2V AP/LAT HISTORY: S/P lumbar fusion SI joint arthritis . Increased rt side sciatica pain ; post surgery 3 months ago TECHNIQUE: XR LUMBAR 2V AP/LAT Number of different views (projections): 2 COMPARISON: 04/01/2025 RESULT: COUNTING: Lumbosacral junction. For the purposes of this report, L4-5 is considered the level of the iliac crest and assume there are 5 lumbar-type vertebrae. Anatomic variant: None. BONE MINERAL DENSITY: Normal. HARDWARE: Transpedicular screws and posterior fusion rods L4-L5 in good position. Evidence of discectomy and disc space grafting with metal spacer cage in good unchanged alignment. Laminectomy defect L3-L5. Dorsal cutaneous adri have been removed from comparison. There is plate and screw fixation of the posterior left acetabulum and ischial. Numerous surgical clips overlie the pelvis. ALIGNMENT: There is minimal lumbar curvature apex leftward. There is minimal retrolisthesis L2-L3. VERTEBRAE: Vertebral body heights are maintained. No aggressive osseous lesion. DISK SPACES: There is multilevel loss of disc height advanced at the L3-L4 and L5-S1 levels similar to comparison. Other moderate disc height loss. Moderate endplate degenerative sclerosis with moderate size endplate osteophytes. No endplate erosions. FACETS: Moderate lower lumbar degenerative facet sclerosis and hypertrophy. OTHER JOINTS: Degenerative changes SI joints and hips. SOFT TISSUES: No acute abnormality. IMPRESSION: 1. Postsurgical changes similar to comparison and good position. 2. Moderate to advanced spondylosis. No significant interval change. 3. No acute finding. Transcribe Date/Time: Jul 30 2025 3:05P Dictated by: CASIE ORTIZ MD This examination was interpreted and the report reviewed and electronically signed by: CASIE ORTIZ MD on Jul 30 2025 3:09PM EST Thank you for allowing us to participate in the care of your patient. Should there be any questions regarding this interpretation, please call [phone]. If you are unable to reach us at the number above, please feel free to contact [facility] at [phone]. [id number] HospitalX-ray reportOrdered By: Regan Vigil on 12-57-6791Odnmo reportFIRUC HEALTH [facility] [address] [place] [address] XRay Report Signed Patient: Regan Green MR#: [id number] : 1950 Acct:[id number] Age/Sex: 75 / M ADM Date: 5 Loc: [facility]XD Room: Type: [facility] Attending Dr: Charity Barkley MD Copies to: Charity Barkley MD~ Ordering Provider: Charity Barkley MD Date of Service: 07/28/25 XR/XR hand LT min 3V*: M79.642 - Pain in left hand LEFT HAND - 4 views REASON FOR EXAM: Left first CMC pain that radiates to scaphoid for months. COMPARISON: Left hand 05/21/2023 FINDINGS: No focal soft tissue abnormality or acute bony process. Severe degenerative changes involving the CMC joint of the thumb. Mild to moderate degenerative changes involving the IP joints. No bony erosions. XR/XR hand LT min 3V* IMPRESSION: DEGENERATIVE CHANGES OF THE LEFT HAND WORST AT THE CMC JOINT OF THE THUMB SIMILAR TO THE PRIOR STUDY WITHOUT ACUTE BONY PROCESS. Impression dictated by: Regan Vigil Jr., D.OLeonides 07/28/2025 3:38 PM Dictation Location: [place] [address] Transcribed By: [facility] 07/28/25 1538 Dictated By: Regan Vigil Jr, DO 07/28/25 1537 Signed By: 07/28/25 1538 [facility]*on 52-14-7840HZ hand LT min 3V*[facility] [address] [place] [address] XRay Report Signed Patient: Regan Green MR#: [id number] : 1950 Acct:[id number] Age/Sex: 75 / M ADM Date: 07/28/25 Loc: [facility] Room: Type: [facility] Attending Dr: Charity Barlkey MD Copies to: Charity Barkley MD Ordering Provider: Charity Barkley MD Date of Service: 07/28/25 XR/XR hand LT min 3V*: M79.642 - Pain in left hand LEFT HAND - 4 views REASON FOR EXAM: Left first CMC pain that radiates to scaphoid for months. COMPARISON: Left hand 05/21/2023 FINDINGS: No focal soft tissue abnormality or acute bony process. Severe degenerative changes involving the CMC joint of the thumb. Mild to moderate degenerative changes involving the IP joints. No bony erosions. XR/XR hand LT min 3V* IMPRESSION: DEGENERATIVE CHANGES OF THE LEFT HAND WORST AT THE CMC JOINT OF THE THUMB SIMILAR TO THE PRIOR STUDY WITHOUT ACUTE BONY PROCESS. Impression dictated by: Regan Vigil Jr., D.O. 07/28/2025 3:38 PM Dictation Location: [place] [address] Transcribed By: [facility] 07/28/25 1538 Dictated By: Regan Vigil Jr, DO 07/28/25 1537 Signed By: 07/28/25 1538[facility] Physician GroupDestr of lesionon 07-07-2025 Complexity: simple Destruction method: electrodesiccation and curettage Informed consent: discussed and consent obtained Informed consent comment: The risks of the procedure were discussed, including, but not limited to risks of scarring, darker or sludge filtration operator pigmentary changes, recurrence, infection, and incomplete removal Timeout: patient name, date of , surgical site, and procedure verified Timeout comment: Patient and provider identified site. Site was marked. Photo was taken and shown to patient, patient verified this is the correct site. Procedure prep: Patient was prepped and draped in usual sterile fashion Prep type: Chlorhexidine Anesthesia: the lesion was anesthetized in a standard fashion Anesthetic: 1% lidocaine w/ epinephrine 1-100,000 buffered w/ 8.4% NaHCO3 Curettage performed in three different directions: Yes Curettage cycles: 3 Lesion length (cm): 1.1 Lesion width (cm): 0.7 Margin per side (cm): 0 Final wound size (cm): 1.1 Hemostasis achieved with: aluminum chloride Outcome: patient tolerated procedure well with no complications Post-procedure details: wound care instructions given Post-procedure details comment: Post-procedure instructions were given verbally and in writing. The office will be contacted if the lesion fails to resolve despite treatment, or if a side effect develops such as abnormal crusting, scabbing, reddness, discharge, or tenderness. Additional details: Amount of lidocaine used: 2 cc Previous accession number: [id number] Hospitaltr of lesionOrdered By: Randi Moore on 48-67-9112TQNJHCA [facility] Informationon 06-02-2025 Type of biopsy: tangential Informed consent: discussed [...] taken yes Amount of lidocaine used: 0.5 [facility] UROGRAMon 65-19-5201FF UROGRAMCT UROGRAM STUDY: CT abdomen and pelvis with [...] is present. The adrenal glands, pancreas and spleenappear to be unremarkable. Small bowel is nondilated. [...] by Johnathan Rodriguez MD on 05/18/2025 9:[address] 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 Carrie Martines RN 05/14/2025 10:54 AM Signed Neuro SPINE CARE COORDINATION QUICK NOTE Returned call to patient to discuss questions. I relayed information as per Antonia Avery. I stated that ok to ride his [...] any additional issues. Carrie Martines RN Spine Hogshead Stock Clerk Allergies As of Date: 05/12/2025 (No Known Allergies) Date Reviewed: 03/30/2025 Reviewed by: Ramandeep Williamson RN - Fully Assessed Reason for Visit: Patient Question [4805] Prescriptions as of 05/14/2025 - lidocaine (SALONPAS) [...] 03/31/2025 Encounter Status:Closed by CARRIE MARTINES on [facility]/14/25[facility] [id number] (NIQ) REGAN GREEN ([id number]) 1950 M Date Time Provider Department 05/05/25 JOHNATHAN KRAUS During your visit today, we recorded the following information about you: Anabela Mark 05/05/2025 3:27 PM Addendum Pt stated that he did get the message for Antonia Leija for 05/12 at 10:40. He was stating that he is having problems getting [facility] paid, he did say there was an issue where it went over to [employer] comp when it should have been paid by Medicare and [employer]. He would like a call back. Marcie Steinberg RN 05/05/2025 4:13 PM Signed Date of Surgery: 03/30/2025 Physician: Johnathan Kraus Procedure: revision L4-5 decompression, L4-5 TLIF NOV: 05/12/25 w/ LIANE Called pt to review message. The patient called the office and shared that the surgery is not being paid. He said it should not be billed to a workman's comp claim, instead it should go to his insurance, [employer], and his Medicare. There are other injections which he gets annually that should to go [facility], but not this surgery. He shared that he previously made sure that the procedure was approved before surgery, but he does not have any documentation for this. Email [facility] and [facility] to get a status update. Update shared wDonovan ROB and BRETT RNNEMESIO. Allergies As of Date: 05/05/2025 (No Known Allergies) Date Reviewed: 03/30/2025 Reviewed by: Ramandeep Williamson RN - Fully Assessed Reason for Visit: Patient Update [1234] Patient Question [6537] Prescriptions as of 05/05/2025 - acetaminophen (TYLENOL) [...] loss anemia) [D62] 03/31/2025 Encounter Status:Closed by MARCIE STEINBERG on 05/05/25NoalCSt. Francis HospitalCREATININE, SERUMon 73-70-4126Hnotckofdv [Mass/Vol]0.76 mg/dLNormal 0.60-1.30ProChristus Santa Rosa Hospital – Medical CenterComment on above:Result Comment: METHOD TRACEABLE TO IDMS STANDARDPerformed By: #### LOCKSTITCH WAISTBAND SETTER #### [facility] (TT) [address] [place] [address] VIREGFR (CKD-EPI) NON-RACE DEPENDENT>^90Normal>=60ProChristus Santa Rosa Hospital – Medical CenterComment on above:Result Comment: Reported eGFR is based on the CKD-EPI 2020 equation that does not use a race coefficient.Performed By: #### LOCKSTITCH WAISTBAND SETTER #### [facility] ([facility]) [address] [place] [address] VIRPROSTATIC SPECIFIC ANTIGEN, DIAGNOSTICon 88-40-1971NOJCUALCV SPEC ANT<^0.40Lgnyay1.00-4.00ProChristus Santa Rosa Hospital – Medical CenterComment on above:Result Comment: The method used for this test is [employer] DXI chemiluminescent immunoassay. Values obtained by different assay methods cannot be used interchangeably.Performed By: #### PSA #### [facility] ([facility]) [address] [place] [address] VIRCNPNon 23-85-4320PMBXTotiwmxyy (SPNMMN) REGAN GREEN ([id number]) 1950 M Date Time Provider Department 04/19/25 JOHNATHAN KRAUS SPNMMN During your visit today, we recorded the following information about you: Kerline Deshpande 04/19/2025 4:46 PM Signed Call received for Johnathan Kraus MD regarding Regan Per Norma. Caller: self Patient Identified by Name and : Regan Albarado Norma 1950 Reason for Call: General - Pt called to see if he should still take gabapentin and methocarbamol. Also would like to know when he could go back driving after surgery Is there any additional information the provider should know? No Last Office Visit: 04/15/2025 Next scheduled appointment: Visit date not found Best number to reach caller: [phone] Best time to reach caller: Any Is [...] any additional issues. Carrie Martines RN Spine Hogshead Stock Clerk Allergies As of Date: 04/19/2025 (No Known Allergies) Date Reviewed: 03/30/2025 Reviewed by: Ramandeep Williamson, MIREILLE - Fully Assessed Reason for Visit: Patient Question [2189] Prescriptions as of 04/20/2025 - acetaminophen (TYLENOL) [...] 03/31/2025 Encounter Status:Closed by CARRIE MARTINES on 04/20/25[facility] [id number] (NIQ) REGAN GREEN ([id number]) 1950 M Date Time Provider Department 04/15/25 JOHNATHAN KRAUS During your visit today, we recorded the following information about you: Dolores Fuller 04/15/2025 10:50 AM Signed Rec'd call from Jodi at PCP's office - Dr Mcdaniel; states that their office removed patient's adri yesterday (total of 23); states that she needs confirmation of how many adri were placed; not mentioned in Op note; requesting call back w/this information; ph. [phone] Opt 1 (ask to speak w/Jodi) Carrie Martines, RN 04/15/2025 2:55 PM Signed Neuro SPINE CARE COORDINATION QUICK NOTE I spoke with Antonia Avery regarding this. Based on post operative xray [...] any additional issues. Carrie Martines RN Spine Hogshead Stock Clerk Allergies As of Date: 04/15/2025 (No Known Allergies) Date Reviewed: 03/30/2025 Reviewed by: Ramandeep Williamson RN - Fully Assessed Prescriptions as of 04/15/2025 [...] 03/31/2025 Encounter Status:Closed by CARRIE MARTINES on 04/15/25[facility]$ Suture removalon [id number] Mcdaniel MD 04/14/2025 2:39 PM $ Suture removal Date/Time: 04/14/2025 2:23 PM Performed by: Ovi Mcdaniel MD Authorized by: Ovi Mcdaniel MD Location: Lower back. Wound Appearance: clean, warm and pink [place] Removed: 25 Post-procedure assessment: cleaned with alcohol and left to dry. Patient tolerance: patient tolerated the procedure well with no immediate complications MANUALLY TRANSCRIBED RESULTSMartins Ferry Hospital Urinalysis Auto, W/O Microscopyon 11-70-3321Jckykkcc Poct Urine BloodNegativeCleveland Clinic Foundation System External Poct Urine GlucoseNegativeCleveland Clinic Foundation SystemExternal Poct Urine KetonesNegativeCleveland Clinic Foundation SystemExternal Poct Urine Leukocyte Esterase NegativeCleveland Clinic Foundation SystemExternal Poct Urine NitriteNegativeCleveland Clinic Foundation SystemExternal Poct Urine Vj9VgiUotcmqLicking Memorial Hospital SystemExternal Poct Urine ProteinNegativeCleveland Clinic Foundation SystemInterpretation and review of laboratory resultsProHealth Memorial Hospital Oconomowoc SystemUROVYSION(TM) FOR BLADDERon 83-59-3017RFQHYRYWM FOR BLADDER CANCERSEE COMMENTSSierra Vista Hospital Ambulatory PPGComment on above:Result Comment: Test Result Flag Unit RefValue UroVysion (R) for Bladder Cancer Result Summary [...] specific probe for 9p21 ([employer] [place], [place]). This test has been modified from the accounts receivable representative's instructions. Its performance characteristics were determined by [facility] in a manner consistent with CLIA requirements. This test has not been cleared or approved by the U.S. Food and Drug Administration. Reason for Referral Evaluate for urothelial carcinoma. Specimen Varies Source Urine, Clean Catch, Midstream Released By Mina Escobedo M.D. Test Performed by: [facility] [place] [address] Nail Machine Operator: Gonzales Bryson Ph.D.; CLIA# [id number] By: #### URVY #### [facility] wireLawyer (SDL) [address] [place] [address] VIRUROVYSION(TM) FOR BLADDERURVY UROVYSION(TM) FOR BLADDER CancelledNoMonrovia Community Hospital Ambulatory PPGComment on above:Order Comment: NO RECOLLECT REQUIRED.[facility] [id number] (NIQ) REGAN GREEN ([id number]) 1950 Date Time Provider Department 04/08/25 JOHNATHAN KRAUS During your visit today, we recorded the following information about you: Prudencio Krause Michelle 04/08/2025 9:17 AM Signed Call received for Johnathan Kraus MD regarding Regan Green. Caller: self Patient Identified by Name and : Regan Green 1950 Reason for Call: Patient is calling to rafael Kraus that he was diagose with Ecoli Is there any additional information the provider should know? No Last Office Visit: 04/06/2025 Next scheduled appointment: Visit date not found Best number to reach caller: [phone] Best time to reach caller: anytime Is it OK to leave a detailed voice message? Yes Michelle Prudencio Dining Room Attendant Carrie Martines RN 04/08/2025 1:43 PM Signed Neuro SPINE [...] any additional issues. Carrie Martines RN Spine Hogshead Stock Clerk Katarina Pascual 04/16/2025 2:27 PM Signed Pt [...] any of the results for another month [phone] Carrie Martines RN 04/19/2025 4:26 PM Signed Neuro SPINE CARE COORDINATION QUICK NOTE Called patient to discuss message and review with Antonia Avery message. I stated that patient has had follow up and abx regarding UTI. I stated to continue with urology and PCP for continued follow up. Patient did not answer but a detailed message was left on identified line. Carrie Martines RN Spine Hogshead Stock Clerk Allergies As of Date: 04/08/2025 (No Known Allergies) Date Reviewed: 03/30/2025 Reviewed by: Ramandeep Williamson RN - Fully Assessed Reason for Visit: Patient Question [3537] Prescriptions as of 04/19/2025 - acetaminophen (TYLENOL) [...] 03/31/2025 Encounter Status:Closed by CARRIE MARTINES on 04/19/25[facility] [id number] Visit (SPNSMN) REGAN GREEN ([id number]) 1950 M Date Time Provider Department 04/06/25 11:00 AM CARRIE MARTINES During your visit today, [...] Williamson RN - Fully Assessed Primary Visit Diagnosis:Post-operative state [Z98.890] Prescriptions as of 04/06/2025 - [...] 03/31/2025 Encounter Status:Closed by CARRIE MARTINES on 04/06/25[facility]imaPNon [id number] (SPNSMN) REGAN GREEN ([id number]) 1950 M Date Time Provider Department 04/06/25 [...] Assessed Reason for Visit: Transition Of Care [0684] Prescriptions as of 04/06/2025 - acetaminophen (TYLENOL) [...] 03/31/2025 Encounter Status:Closed by VIBHA HURTADO on 04/06/25[facility] [id number] (NIQ) REGAN GREEN ([id number]) 1950 M Date Time Provider Department 04/05/25 [...] surgery): Date of surgery: 03/30/25 Sutures or [place]: Unsure Incision: Patient reports no issues Pain [...] not found Best number to reach caller: [phone] Best time to reach caller: anytime Is it OK to leave a detailed voice message? Yes Marcie Burkett RN 04/05/2025 9:18 AM Signed Date [...] understanding. Update shared w/ EA for review. Marcie Steinberg RN 04/05/2025 10:07 AM Signed Antonia Leija PA-C You 3 minutes ago (9:38 AM) Thank you, I agree. Is there a way to have him see urology or PCP for evaluation? Spoke w/ pt. PCP is Dr. Light and he will see his POT FISHER tomorrow @ 3p. Shared clinical update with MIREILLE Francisco. Dr. Minh Heller is his urologist . , update [...] loss anemia) [D62] 03/31/2025 Encounter Status:Closed by MARCIE STEINBERG on 04/05/25[facility] 83-94-3113Dglzwbzta Ql (U)ModerateAbnormalNegative [facility]CMC Healthcare SystemComment on above:Result Comment: Not confirmed. Interpret positive results with caution.Performed By: #### UA #### [facility] ([facility]) [address] [place] [address] VIRBLOOD/HGBModerateAbnormalNegativeACMC Healthcare System Comment on above:Performed By: #### UA #### [facility] ([facility]) [address] [place] [address] VIRColor (U)OrangeAbnormalYellow, ColorlessProChristus Santa Rosa Hospital – Medical CenterComment on above:Performed By: #### UA #### [facility] ([facility]) [address] [place] [address] VIRGlucose Ql (U)NegativeNormalNegativeACMC Healthcare SystemComment on above:Performed By: #### UA #### [facility] ([facility]) [address] [place] [address] VIRKetones Ql (U)NegativeNormalNegativeACMC Healthcare SystemComment on above:Performed By: #### UA #### [facility] ([facility]) [address] [place] [address] VIRLeukocyte esterase Test strip Ql (U)NegativeNormalNegative [facility] SystemComment on above:Performed By: #### UA #### [facility] ([facility]) [address] [place] [address] VIRMUCOUSPresentAbnormalNonePPike Community HospitalComment on above:Performed By: #### UA #### [facility] ([facility]) [address] [place] [address] VIRNitrite Ql (U)NegativeNormalNegativeACMC Healthcare SystemComment on above:Performed By: #### UA #### [facility] ([facility]) [address] [place] [address] VIRPH,URINE5.8Sjrlqz5.0-8.5PPike Community HospitalComment on above:Performed By: #### UA #### [facility] ([facility]) [address] [place] [address] VIRProtein Ql (U)30 mg/dLAbnormalNegativeACMC Healthcare SystemComment on above:Performed By: #### UA #### [facility] ([facility]) [address] [place] [address] VIRR.B.NVYUQ5Qynqfl1-5HboYrbqwsPike Community HospitalComment on above:Performed By: #### UA #### [facility] ([facility]) [address] [place] [address] VIRSpecific gravity (U) [Rel density]1.460Qtskgd0.003-1.035 [facility] Healthcare SystemComment on above:Performed By: #### UA #### [facility] ([facility]) [address] [place] [address] VIRTURBIDITYCloudyAbnormalClearCrystal Clinic Orthopedic Center on above:Performed By: #### UA #### [facility] ([facility]) [address] [place] [address] VIRUROBILINOGEN4 eu/dLAbnormal<1.1 eu/dLProChristus Santa Rosa Hospital – Medical CenterComment on above:Performed By: #### UA #### [facility] ([facility]) [address] [place] [address] VIRW.B.IZZOI7Etqmej9-7DruBxbmcj [facility] HospitalComment on above:Performed By: #### UA #### [facility] ([facility]) [address] [place] [address] VIRURINE CULTUREon 67-34-3317Jofmbalj identified Cx Nom (U) CULTURE RESULTS ESCHERICHIA [...] <=^16.0 F Trimethoprim + Sulfamethoxazole S <=^1.0 FSusceptibleACMC Healthcare System Comment on above:Performed By: #### UC #### [facility] ([facility]) [address] [place] [address] VIRBasic metabolic 2000 panelon 43-20-9075Tuvzd gap [Moles/Vol] 9 mmol/LNormal8-15Bl[facility] HospitalComtrinity health grand rap[facility] on above:Order Comment: Specimen Type: BLOOD SPECIMENOrdering Facility: [facility] Address:[address] [place] [address]Bzuxqjikl By: #### 08800-1 ####[facility] LABCL[facility] [id number] [place] [address] [place] AMERICACalcium [Mass/Vol]8.9 mg/dLNormal 8.5-10.2CSalem City Hospital on above:Order Comment: Specimen Type: BLOOD SPECIMENOrdering Facility: [facility] Address:[address] [place], [place] [address]Performed By: #### 50921-9 ####[facility] LABCLIA [id number] [place] [address] [place] AMERICAChloride [Moles/Vol]105 mmol/GVedtsn42-739NjdtizwduAccess Hospital Dayton on above:Order Comment: Specimen Type: BLOOD SPECIMENOrdering Facility: [facility] Address:[address] [place], [place] [address]Performed By: #### 45478-3 ####[facility] LABCLIA [id number] [place] [address] [place] AMERICACO2 [Moles/Vol]26 mmol/RPhzjcy13-20CgfdqatlfAccess Hospital Dayton on above:Order Comment: Specimen Type: BLOOD SPECIMENOrdering Facility: [facility] Address:[address] [place], [place] [address]Performed By: #### 58407-3 ####[facility] LABCLIA [id number] [place] [address] [place] AMERICACreatinine [Mass/Vol] 0.70 mg/dLLow0.73-1.22[facility] on above:Order Comment: Specimen Type: BLOOD SPECIMENOrdering Facility: [facility] Address:[address] [place], [place] [address]Performed By: #### 40612-8 ####[facility]IA [id number] [place] [address] [place] AMERICACreatinine and Glomerular filtration rate.predicted panel (S/P/Bld)97 mL/min/1.73m???Normal>=60[facility] on above:Order Comment: Specimen Type: BLOOD SPECIMENOrdering Facility: [facility] Address:[address] [place], [place] [address]Qesldv Comment: Estimated Glomerular Filtration Rate (eGFR) is calculated using the 2020 CKD-EPI creatinine equation. This equation utilizes serum creatinine, sex, and age as parameters. The creatinine assay has traceable calibration to isotope dilution-mass spectrometry. Refer to KDIGO guidelines for clinical interpretation. In patients with unstable renal function, e.g. those with acute kidney injury, the eGFR may not accurately reflect actual GFR.Performed By: #### 67939-2 ####[facility] LAB[facility] [id number] [place] [address] [place] AMERICAGlucose [Mass/Vol]117 mg/eRGbjz78-52DwuobfjajAccess Hospital [facility] on above:Order Comment: Specimen Type: BLOOD SPECIMENOrdering Facility: [facility] Address:[address] [place], [place] [address]Result Comment: The [place] Diabetes Association (ADA) provides guidance for cutoff [...] Standards of Medical Care in Diabetes 2016, [place] Diabetes Association. Diabetes Care. 2016.39(Suppl 1).Performed By: #### 38053-1 ####[facility] LABCL[facility] [id number] [address] [address] [place] AMERICAPotassium [Moles/Vol]3.9 mmol/L Normal3.7-5.1CSalem City Hospital on above:Order Comment: Specimen Type: BLOOD SPECIMENOrdering Facility: [facility] Address:[address] [place], [place] [address]Performed By: #### 03378-7 ####[facility]CL[facility] [id number] [place] [address] [place] [facility] CENTERSodium [Moles/Vol]140 mmol/EMlqtwn097-787MnkayaapgAccess Hospital [place] on above:Order Comment: Specimen Type: BLOOD SPECIMENOrdering Facility: [facility] Address:[address] [place], [place] [address]Performed By: #### 76061-2 ####[facility] [id number] [place] [address] [place] AMERICAUrea nitrogen [Mass/Vol]9 mg/dLNormal9-24[facility] Comment on above:Order Comment: Specimen Type: BLOOD SPECIMENOrdering Facility: [facility] Address:[address] [place] [address] Performed By: #### 15682-2 ####[facility] LABIA [id number] [place] [address] [place] CBC panel Auto (Bld)on 91-52-3246Zklpmhrrklw distribution width (RBC) [Ratio] 12.8 %Irrrwc31.5-15.0[facility] on above:Order Comment: Specimen Type: BLOOD SPECIMENOrdering Facility: [facility] Address:[address] [place], [place] [address]Performed By: #### 13457-2 ####[facility] LABIA [id number] [address] STATES OF AMERICAHematocrit (Bld) [Volume fraction]36.5 %Low39.0-51.0[facility] on above:Order Comment: Specimen Type: BLOOD SPECIMENOrdering Facility: [facility] Address:[address] [place], [place] [address]Performed By: #### 30020- 2 ####[facility]IA [id number] [place] [address] [place] AMERICAHemoglobin (Bld) [Mass/Vol]12.1 g/dLLow13.0-17.0[facility] on above:Order Comment: Specimen Type: BLOOD SPECIMENOrdering Facility: [facility] Address:[address] [place], [place] [address]Performed By: #### 08005-2 ####[facility] [id number] [address] (RBC) [Entitic mass]30.9 pg Bvwhjo75.0-34.0[facility] on above:Order Comment: Specimen Type: BLOOD SPECIMENOrdering Facility: [facility] Address:[address] [place], [place] [address]Performed By: #### 07909-6 ####[facility] [id number] [address]HC (RBC) [Mass/Vol]33.2 g/dL Kxbumo30.5-36.0[facility] on above:Order Comment: Specimen Type: BLOOD SPECIMENOrdering Facility: [facility] Address:[address] [place], [place] [address]Performed By: #### 80673-7 ####[facility] [id number] [address] (RBC) [Entitic vol]93.1 fL Jxteki43.0-100.0[facility] on above:Order Comment: Specimen Type: BLOOD SPECIMENOrdering Facility: [facility] Address:[address] [place], [place] [address]Performed By: #### 39790-0 ####[facility] [id number] [address] RBC (Bld) [#/Vol] 10*3/uLNormal<0.01[facility] on above:Order Comment: Specimen Type: BLOOD SPECIMENOrdering Facility: [facility] Address:[address] [place], [place] [address]Performed By: #### 55471-5 ####[facility] LABCL[facility] [id number] [address] [address] [place] AMERICAPlatelet mean volume (Bld) [Entitic vol]8.9 fLLow9.0-12.7CSalem City Hospital on above:Order Comment: Specimen Type: BLOOD SPECIMENOrdering Facility: [facility] Address:[address] [place], [place] [address]Performed By: #### 42409- 2 ####[facility] [id number] [place] [address] [place] AMERICAPlatelets (Bld) [#/Vol]212 10*3/pEFvrtqy659-810GsylztccxAccess Hospital [place] on above:Order Comment: Specimen Type: BLOOD SPECIMENOrdering Facility: [facility] Address:[address] [place], [place] [address]Performed By: #### 52226-6 ####[facility] [id number] [place] [address] [place] AMERICARBC (Bld) [#/Vol]3.92 10*6/uLLow 4.20-6.00[facility] on above:Order Comment: Specimen Type: BLOOD SPECIMENOrdering Facility: [facility] Address:[address] [place], [place] [address]Performed By: #### 46096-7 ####[facility] [id number] [address] [address] [place] AMERICAW (Bld) [#/Vol]8.52 10*3/uLNormal3.70-11.00[facility] on above:Order Comment: Specimen Type: BLOOD SPECIMENOrdering Facility: [facility] Address:[address] [place], [place] [address]Performed By: #### 50535-0 ####[facility] LABCLAUDE [id number] [address]ETCNFidelia 46-01-2205ZSZDKJN ID: [id number] Author: JOHNATHAN KRAUS MD Service: Neurosurgery Author Type: Physician Type: Discharge Summary Filed: 04/09/2025 09:55 Note Text: DISCHARGE SUMMARY [facility] PATIENT NAME: Regan Green ADMISSION DATE: 03/30/2025 DISCHARGE DATE: 04/02/2025 Attending Physician: Johnathan Kraus MD PCP: Sumanth Light MD [phone] Code Status: Not on file Discharged Against [...] Implant Name Type Inv. Item Serial No. Lumber Kiln Operator Lot No. LRB No. Used Action I-FACTOR PEPTIDE ENHANCED BONE GRAFT PUTTY 5CC - [id number] Graft I-FACTOR PEPTIDE ENHANCED BONE GRAFT PUTTY 5CC Adometry By [employer] [id number] Implanted SCREW JUSTIN 3 SMITH 6.5MM 45MM BONE POLYAXIAL REDUCTION NONSTERILE SPINE Screw PAULINA 4 Implanted HOME JUSTIN 3 6MM TITANIUM 40MM SPINAL RADIOLUCENT - [id number] Home HOME JUSTIN 3 6MM TITANIUM 40MM SPINAL RADIOLUCENT PAULINA SPINE 2 Implanted SCREW JUSTIN 3 TITANIUM SET SIVAN SPINE - [id number] Implant SCREW JUSTIN 3 TITANIUM SET SIVAN SPINE PAULINA SPINE 4 Implanted Surgical Specimens: * No specimens in log * Incision/Procedure Start Time: 1:09 PM Incision Close/Procedure End Time: 4:50 PM Surgeons and Role: * Johnathan Kraus MD - Primary * Jessica Lee MD - Fellow Surgical Physician Assistant: Howard Yang RN Surgical Physician Assistant (Relief): Radha Sainz RN; Joslyn Howard RN Scrub Person: Luis Alberto Navarro ST Scrub Person (Relief): Omaira Lara ST; Silva Hand RN Procedures During Hospitalization: No procedures performed Hospital Course: 75 y/o M who presents for elective spine surgery. The patient was electively admitted to the [facility]. After being optimized for surgery by [...] The patient was then transferred up to 60 [facility]/H060- hospital room for postoperative management. Patient was fitted with fitted with sequential compression devices and used Heparin for DVT prophylaxis. POD1: Tolerated surgery well. Began mobilizing. Skilled for [facility] POD2: Drain removed. Began weaning JACKERMAN. Continued to mobilize. POD3: JACKERMAN discontinued, pain remained controlled. Had BM. On date of discharge pain well controlled on oral medications. Patient mobilizing with minimal assistance. Patient voiding and passing flatus. Patient was discharged to home in stable condition. Final Diagnosis: Lumbar stenosis Active Hospital Problems as of 04/02/2025 Noted - Resolved [facility] * (Principal) Spinal stenosis of lumbar region, unspecified whether neurogenic claudication present 03/30/2025 - Present Yes Current Assessment AND Plan Assessment: s/p revision L4-5 decompression, L4-5 TLIF PLAN: -Pain control: continue PO pain regimen -Drain removed -PT/OT rec [facility], patient declining -Upright x-rays reviewed -DVT ppx: continue IPCs, heparin SQ bid -OOB for meals, mobilize at least 3x daily -Bowel regimen -D/c today -D/w Dr. Kraus Acute post-operative pain 03/31/2025 - Present Yes Current Assessment AND Plan Assessment: Post-op pain PLAN: -JACKERMAN stopped -Continue prn PO pain regimen S/P [...] Current Assessment AND Plan (more content not included)...NormalBluffton HospitalTHERAPY NTon 14-41-2322XKAMTGP NTHNO ID: [id number] Author: QAMAR SCHMITT, PT Service: Physical Therapy Author Type: Physical Therapist Type: Therapy (PT/OT/Speech/Resp) Filed: 04/02/2025 15:32 Note Text: PHYSICAL THERAPY MISSED VISIT SERVICE DATE: 04/02/2025 SERVICE TIME: 1443 ROOM: [place] [address] Patient not seen due to Declined to Participate (pt scheduled to DC today). SIGNATURE: Qamar Schmitt, PT PATIENT NAME: Regan Green DATE: April 02, 2025 TIME: 3:31 PMNormalBluffton HospitalBasi metabolic 2000 panelon 36-32-0042Oiasn gap [Moles/Vol]9 mmol/LNormal8-15[facility] Comment on above:Order Comment: Specimen Type: BLOOD SPECIMENOrdering Facility: [facility] Address:[address] [place] [address] Performed By: #### 99511-6 ####[facility] LABCLIA [id number] [place] [address] [place] Calcium [Mass/Vol]8.6 mg/dLNormal8.5-10.2CSt. Francis HospitalComment on above:Order Comment: Specimen Type: BLOOD SPECIMENOrdering Facility: [facility] Address:[address] [place], [place] [address]Performed By: #### 82763-0 ####[facility] LABCLIA [id number] [place] [id number] [place] OF AMERICAChloride [Moles/Vol] 108 mmol/MGnoj64-809GaoxhefquAccess Hospital Dayton on above:Order Comment: Specimen Type: BLOOD SPECIMENOrdering Facility: [facility] Address:[address] [place], [place] [address]Performed By: #### 30842-2 ####[facility] LABIA [id number] [place] [id number] [place] AMERICACO2 [Moles/Vol]24 mmol/LNormal 22-30[facility] on above:Order Comment: Specimen Type: BLOOD SPECIMENOrdering Facility: [facility] Address:[address] [place], [place] [address]Performed By: #### 19319-5 ####[facility] LABMA[facility] [id number] [address] STATES OF AMERICACreatinine [Mass/Vol]0.77 mg/dLNormal0.73-1.22[facility] on above:Order Comment: Specimen Type: BLOOD SPECIMENOrdering Facility: [facility] Address:[address] [place], [place] [address]Performed By: #### 83417-3 ####[facility] LABIA [id number] [place] [address] [place] Creatinine and Glomerular filtration rate.predicted panel (S/P/Bld)95 mL/min/1.73m???Normal>=60[facility] on above:Order Comment: Specimen Type: BLOOD SPECIMENOrdering Facility: [facility] Address:[address] [place], [place] [address]Result Comment: Estimated Glomerular Filtration Rate (eGFR) is calculated using the 2020 CKD-EPI cre atinine equation. This equation utilizes serum creatinine, sex, and age as parameters. The creatinine assay has traceable calibration to isotope dilution- mass spectrometry. Refer to KDIGO guidelines for clinical interpretation. In patients with unstable renal function, e.g. those with acute kidney injury, the eGFR may not accurately reflect actual GFR.Performed By: #### 25375-8 ####[facility] LABIA [id number] [place] [address] [place] AMERICAGlucose [Mass/Vol]87 mg/dLNormal 74-99[facility] on above:Order Comment: Specimen Type: BLOOD SPECIMENOrdering Facility: [facility] Address:[address] [place], [place] [address]Result Comment: The [place] Diabetes Association (ADA) provides guidance for cutoff [...] Standards of Medical Care in Diabetes 2016, [place] Diabetes Association. Diabetes Care. 2016.39(Suppl 1).Performed By: #### 03768-7 ####[facility] LABIA [id number] [place] [address] [place] AMERICAPotassium [Moles/Vol]4.3 mmol/L Normal3.7-5.1CSalem City Hospital on above:Order Comment: Specimen Type: BLOOD SPECIMENOrdering Facility: [facility] Address:[address] [place], [place] [address]Performed By: #### 37517-0 ####[facility] [id number] [place] [address] [place] AMERICASodium [Moles/Vol]141 mmol/GOxdisi104-499ZjsheuiyeAccess Hospital [place] on above:Order Comment: Specimen Type: BLOOD SPECIMENOrdering Facility: [facility] Address:[address] [place], [place] [address]Performed By: #### 06608-7 ####[facility] LABCLIA [id number] [place] [address] [place] AMERICAUrea nitrogen [Mass/Vol]15 mg/dLNormal9-24[facility] Comment on above:Order Comment: Specimen Type: BLOOD SPECIMENOrdering Facility: [facility] Address:[address] [place] [address] Performed By: #### 85029-2 ####[facility] LABIA [id number] [place] [id number] [place] CBC panel Auto (Bld)on 03-23-6887Lfuhogbmggq distribution width (RBC) [Ratio] 13.2 %Gjgymu61.5-15.0[facility] on above:Order Comment: Specimen Type: BLOOD SPECIMENOrdering Facility: [facility] Address:[address] [place], [place] [address]Performed By: #### 79252-6 ####[facility]OSPITALIA [id number] [address] STATES WADSWORTH HOSPITALHematocrit (Bld) [Volume fraction]34.3 %Low39.0-51.0Bluffton HospitalComment on above:Order Comment: Specimen Type: BLOOD SPECIMENOrdering Facility: [facility] Address:[address] [place], [place] [address]Performed By: #### 90864- 2 ####[facility] LABIA [id number] [address] STATES OF AMERICAHemoglobin (Bld) [Mass/Vol]11.0 g/dLLow13.0-17.0[facility] on above:Order Comment: Specimen Type: BLOOD SPECIMENOrdering Facility: [facility] Address:[address] [place], [place] [address]Performed By: #### 80384-8 ####[facility] LABIA [id number] [address] AMERICAMCH (RBC) [Entitic mass]30.6 pg Gcmpyc40.0-34.0[facility] on above:Order Comment: Specimen Type: BLOOD SPECIMENOrdering Facility: [facility] Address:[address] [place], [place] [address]Performed By: #### 50702-2 ####[facility] LABIA [id number] [address] (RBC) [Mass/Vol]32.1 g/dL Nactav32.5-36.0[facility] on above:Order Comment: Specimen Type: BLOOD SPECIMENOrdering Facility: [facility] Address:[address] [place], [place] [address]Performed By: #### 52481-5 ####[facility] LABIA [id number] [address] (RBC) [Entitic vol]95.3 fL Jickub30.0-100.0[facility] on above:Order Comment: Specimen Type: BLOOD SPECIMENOrdering Facility: [facility] Address:[address] [place], [place] [address]Performed By: #### 95328-6 ####[facility] LABIA [id number] [address] RBC (Bld) [#/Vol] 10*3/uLNormal<0.01[facility] on above:Order Comment: Specimen Type: BLOOD SPECIMENOrdering Facility: [facility] Address:[address] [place], [place] [address]Performed By: #### 72790-5 ####[facility] LABCLIA [id number] [address]ETPlatelet mean volume (Bld) [Entitic vol]9.6 fLNormal9.0-12.7CSalem City Hospital on above: Order Comment: Specimen Type: BLOOD SPECIMENOrdering Facility: [facility] Address:[address] [place], [place] [address]Performed By: #### 91888- 2 ####[facility] LABCLIA [id number] [address] [address] [facility]ONE HOSPITALPlatelets (Bld) [#/Vol]210 10*3/mYEhagjv630-488ZeigdkwhdAccess Hospital [place] on above:Order Comment: Specimen Type: BLOOD SPECIMENOrdering Facility: [facility] Address:[address] [place], [place] [address]Performed By: #### 18791-8 ####[facility] LABIA [id number] [address] [address] [facility]ST[facility] HOSPITALRB (Bld) [#/Vol]3.60 10*6/uLLow 4.20-6.00[facility] on above:Order Comment: Specimen Type: BLOOD SPECIMENOrdering Facility: [facility] Address:[address] [place], [place] [address]Performed By: #### 80040-3 ####[facility] LABIA [id number] [address] [address] [facility]IMEST[facility] HOSPITALW (Bld) [#/Vol]7.83 10*3/uLNormal3.70-11.00[facility] on above:Order Comment: Specimen Type: BLOOD SPECIMENOrdering Facility: [facility] Address:[address] [place], [place] [address]Performed By: #### 01246-7 ####[facility] LABIA [id number] [address] [address] [facility] OF AMERICATHERAPY NTon 59-10-2473ORAQVMT NTHNO ID: [id number] Author: QAMAR SCHMITT, PT Service: Physical Therapy Author Type: Physical Therapist Type: Therapy (PT/OT/Speech/Resp) Filed: 04/01/2025 15:36 Note Text: Physical Therapy Treatment Summary SERVICE DATE: 04/01/2025 SERVICE TIME: 1443 to 1525 ROOM: [place] [address] PT 6 Clicks Score: 19 DISCHARGE RECOMMENDATIONS [...] Manual, Crutch(es), Grab Bars- Toilet, Shower Chair, Fiscal Accountant PRIOR FUNCTIONAL LEVEL Within Functional Limits 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 SUBJECTIVE pt agreeable to PT THERAPY DIAGNOSIS Reduced mobility-other TREATMENT INTERVENTIONS Therapeutic Activity (80650), Gait Training (91041) Timed Code Treatment (minutes): 40 Skilled Treatment Time (minutes): 40 TRAINING AND EDUCATION PROVIDED Anatomy and Impact on Deficits, Assistive Device Use, Bed Mobility, Benefits of In-Hospital Mobility, Discharge Planning, Energy Conservation, Expected Functional Level, Falls Prevention, Gait Pattern, Reduction of Deviations, Handout Issued, Home Safety, Positioning, Precautions/Restrictions, Pain Neuroscience, Patient Exercise/Therapy Program Support Needs, [...] Gait Training, Standing Tolerance, Stair Training SIGNATURE: Qamar Schmitt PT PATIENT NAME: Regan Green DATE: April 01, 2025 TIME: 3:36 PMNOhio State East Hospital NTHNO ID: [id number] Author: EMMA MARIA OTR/L Service: Occupational Therapy Author Type: Occupational Therapist Type: Therapy (PT/OT/Speech/Resp) Filed: 04/01/2025 12:30 Note Text: Occupational Therapy Evaluation Summary SERVICE DATE: 04/01/2025 SERVICE TIME: 1132 to 1202 ROOM: [place] [address] OT 6 Clicks Score: 22 DISCHARGE RECOMMENDATIONS [...] OOB ADLs with CGA and use of endoscopy technican to don pants with endoscopy technican; increased education/cues to adhere to precautions; pt [...] Manual, Crutch(es), Grab Bars- Toilet, Shower Chair, Fiscal Accountant PRIOR FUNCTIONAL LEVEL Within Functional Limits 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 SUBJECTIVE I was lightheaded earlier COGNITION Cog 6 Start of Session Total Points (Max Score = 24): 24 (04/01/25) Cog 6 End of Session Total Points (Max Score = 24): 24 (04/01/25) 4AT Score: 0 (04/01/25) Delirium Positive/Negative: Negative (04/01/25) THERAPY DIAGNOSIS General symptoms and signs-other TREATMENT INTERVENTIONS Evaluation, Self Fdc Management (63387) Timed Code Treatment (minutes): 15 Skilled Treatment Time (minutes): 30 TRAINING AND EDUCATION PROVIDED Activity Adaptation/Compensatory Strategies, Adaptive Equipment/DME, Assistive Device Use, Bed Mobility, Benefits of In-Hospital Mobility, Discharge Planning, Functional Mobility Involving ADLs, Grooming Tasks, Home Set-up/Modifications, IADLs/Home Management, Identification of Systems of Support, Insight into Deficits, Life Roles/Routines/Habits, Lower Extremity Bathing, Lower Extremity Dressing, Precautions/Restrictions, Role of Occupational Therapy, Safety/Judgment, Toileting , [...] Body Modified Independent, Additional Information use of endoscopy technican to don pants, increased cues to maintain [...] Education, Pain Management, Functional Mobility Training SIGNATURE: Emma Maria OTR/L PATIENT NAME: Regan Green DATE: April 01, 2025 TIME: 12:30 PMNormalBluffton HospitalXR LUMBAR 2V AP/LATon 02-57-5519NQ LUMBAR 2V AP/LAT* * *Final Report* * * DATE OF [...] no bony erosions. IMPRESSION: Intact postoperative changes. Info Print Press Operator: PSCB Transcribe Date/Time: Apr 01 2025 12:36P Dictated by : JOHNATHAN URIBE MD This examination was interpreted and the report reviewed and electronically signed by: JOHNATHAN URIBE MD on Apr 01 2025 12:37PM EST [id number] Medical Specialty Hospital - Southeast OhioBamarshall county hospital metabolic 2000 panel on 81-64-3782Fxtcc gap [Moles/Vol]11 mmol/LNormal8-15[facility] Comment on above:Order Comment: Specimen Type: BLOOD SPECIMENOrdering Facility: [facility] Address:[address] [place] [address] Performed By: #### 81169-8 ####[facility] LABCLIA [id number] [address] [address] [place] Calcium [Mass/Vol]8.6 mg/dLNormal8.5-10.2CSalem City Hospital on above:Order Comment: Specimen Type: BLOOD SPECIMENOrdering Facility: [facility] Address:[address] [place], [place] [address]Performed By: #### 61158-1 ####[facility] LABCLIA [id number] [place] [address] [place] AMERICAChloride [Moles/Vol] 106 mmol/FDkoasx36-703RiirvwippBluffton HospitalComment on above:Order Comment: Specimen Type: BLOOD SPECIMENOrdering Facility: [facility] Address:[address] [place], [place] [address]Performed By: #### 77227-5 ####[facility] LABCLIA [id number] [place] [id number] [place] AMERICACO2 [Moles/Vol]24 mmol/LNormal 22-30[facility] on above:Order Comment: Specimen Type: BLOOD SPECIMENOrdering Facility: [facility] Address:[address] [place], [place] [address]Performed By: #### 64672-6 ####[facility] LABCLIA [id number] [address] [address] [place] AMERICACreatinine [Mass/Vol]0.64 mg/dLLow0.73-1.22[facility] on above:Order Comment: Specimen Type: BLOOD SPECIMENOrdering Facility: [facility] Address:[address] [place], [place] [address]Performed By: #### 23565-7 ####[facility] LABCLIA [id number] [place] [address] [facility] Creatinine and Glomerular filtration rate.predicted panel (S/P/Bld)100 mL/min/1.73m???Normal>=60[facility] on above:Order Comment: Specimen Type: BLOOD SPECIMENOrdering Facility: [facility] Address:[address] [place], [place] [address]Result Comment: Estimated Glomerular Filtration Rate (eGFR) is calculated using the 2020 CKD-EPI cre atinine equation. This equation utilizes serum creatinine, sex, and age as parameters. The creatinine assay has traceable calibration to isotope dilution- mass spectrometry. Refer to KDIGO guidelines for clinical interpretation. In patients with unstable renal function, e.g. those with acute kidney injury, the eGFR may not accurately reflect actual GFR.Performed By: #### 43944-8 ####[facility] LABIA [id number] [place] [address] [facility] HOSPITALGlucose [Mass/Vol]100 mg/dLHigh 74-99[facility] on above:Order Comment: Specimen Type: BLOOD SPECIMENOrdering Facility: [facility] Address:[address] [place], [place] [address]Result Comment: The [place] Diabetes Association (ADA) provides guidance for cutoff [...] Standards of Medical Care in Diabetes 2016, [place] Diabetes Association. Diabetes Care. 2016.39(Suppl 1).Performed By: #### 92360-0 ####[facility] LABCLIA [id number] [address] [address] [place] AMERICAPotassium [Moles/Vol]4.2 mmol/L Normal3.7-5.1CSalem City Hospital on above:Order Comment: Specimen Type: BLOOD SPECIMENOrdering Facility: [facility] Address:[address] [place], [place] [address]Performed By: #### 58327-1 ####[facility] LABCLIA [id number] [place] [address] [place] [facility]ICAL CENTERSodium [Moles/Vol]141 mmol/XKmzhub276-204OcllxvrruAccess Hospital Dayton on above:Order Comment: Specimen Type: BLOOD SPECIMENOrdering Facility: [facility] Address:[address] [place], [place] [address]Performed By: #### 50436-1 ####[facility] LABIA [id number] [place] [address] [place] [facility]OUTHEASTERN MEDICAL CENTERUrea nitrogen [Mass/Vol]12 mg/dLNormal9-24[facility] Comment on above:Order Comment: Specimen Type: BLOOD SPECIMENOrdering Facility: [facility] Address:[address] [place] [address] Performed By: #### 01953-8 ####[facility] LABIA [id number] [place] [address] [place] CBC panel Auto (Bld)on 09-43-7935Rchqadejllm distribution width (RBC) [Ratio] 12.9 %Fbmkrj59.5-15.0[facility] on above:Order Comment: Specimen Type: BLOOD SPECIMENOrdering Facility: [facility] Address:[address] [place], [place] [address]Performed By: #### 40304-0 ####[facility] LABCLIA [id number] [place] [address] [place] AMERICAHematocrit (Bld) [Volume fraction]34.9 %Low39.0-51.0[facility] on above:Order Comment: Specimen Type: BLOOD SPECIMENOrdering Facility: [facility] Address:[address] [place], [place] [address]Performed By: #### 17534- 2 ####[facility] LABIA [id number] [address]ACK STREETHemoglobin (Bld) [Mass/Vol]11.5 g/dLLow13.0-17.0[facility] on above:Order Comment: Specimen Type: BLOOD SPECIMENOrdering Facility: [facility] Address:[address] [place], [place] [address]Performed By: #### 47678-9 ####[facility] LABIA [id number] [address] (RBC) [Entitic mass]30.6 pg Klynei48.0-34.0[facility] on above:Order Comment: Specimen Type: BLOOD SPECIMENOrdering Facility: [facility] Address:[address] [place], [place] [address]Performed By: #### 46770-3 ####[facility] LABIA [id number] [address]ETMCHC (RBC) [Mass/Vol]33.0 g/dL Wepqdy81.5-36.0[facility] on above:Order Comment: Specimen Type: BLOOD SPECIMENOrdering Facility: [facility] Address:[address] [place], [place] [address]Performed By: #### 10000-1 ####[facility] LABIA [id number] [place] [address] [facility] (RBC) [Entitic vol]92.8 fL Nmgkvm81.0-100.0[facility] on above:Order Comment: Specimen Type: BLOOD SPECIMENOrdering Facility: [facility] Address:[address] [place], [place] [address]Performed By: #### 13809-5 ####[facility] LABCLIA [id number] [address] [place] [address] [place] AMERICANucleated RBC (Bld) [#/Vol] 10*3/uLNormal<0.01[facility] on above:Order Comment: Specimen Type: BLOOD SPECIMENOrdering Facility: [facility] Address:[address] [place], [place] [address]Performed By: #### 05198-0 ####[facility] LABCLIA [id number] [place] [id number] [place] AMERICAPlatelet mean volume (Bld) [Entitic vol]9.5 fLNormal9.0-12.7CSalem City Hospital on above: Order Comment: Specimen Type: BLOOD SPECIMENOrdering Facility: [facility] Address:[address] [place], [place] [address]Performed By: #### 78714- 2 ####[facility] LAB[facility] [id number] [place] [address] [place] AMERICAPlatelets (Bld) [#/Vol]218 10*3/cJLjdsju733-506PedeetjyrAccess Hospital [facility] on above:Order Comment: Specimen Type: BLOOD SPECIMENOrdering Facility: [facility] Address:[address] [place], [place] [address]Performed By: #### 17660-3 ####[facility] [id number] [place] [address] [place] AMERICARBC (Bld) [#/Vol]3.76 10*6/uLLow 4.20-6.00[facility] on above:Order Comment: Specimen Type: BLOOD SPECIMENOrdering Facility: [facility] Address:[address] [place], [place] [address]Performed By: #### 07645-5 ####[facility] [id number] [place] [address] [place] AMERICAWBC (Bld) [#/Vol]11.36 10*3/uLHigh3.70-11.00[facility] HospitalComment on above:Order Comment: Specimen Type: BLOOD SPECIMENOrdering Facility: [facility] Address:[address] [place], [place] [address]Performed By: #### 36728-4 ####[facility] LABCLIA [id number] [address] STATES OF AMERICATHERAPY NTon 80-41-0769JGBTLEG NTHNO ID: [id number] Author: BERT GENTILE, PT Service: Physical Therapy Author Type: Physical Therapist Type: Therapy (PT/OT/Speech/Resp) Filed: 03/31/2025 09:46 Note Text: Physical Therapy Evaluation Summary SERVICE DATE: 03/31/2025 SERVICE TIME: 0830 to 0930 ROOM: [place] [address] PT 6 Clicks Score: 19 DISCHARGE RECOMMENDATIONS [...] LEVEL Within Functional Limits 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 SUBJECTIVE pt agreeable to PT THERAPY DIAGNOSIS Reduced mobility-other TREATMENT INTERVENTIONS $ Evaluation-Moderate (86456) Billed Units: 1 unit Therapeutic Activity (24935) Treatment Minutes: 25 $ Therapeutic Activity (35929) Billed Units: 2 units Gait Training (69682) Treatment Minutes: 20 $ Gait Training (34958) Billed Units: 1 unit Evaluation, Therapeutic Activity (46047), Gait Training (25058) Timed Code Treatment (minutes): 45 Skilled Treatment Time (minutes): 60 TRAINING AND EDUCATION PROVIDED Anatomy and Impact on Deficits, Assistive Device Use, Bed Mobility, Benefits of In-Hospital Mobility, Discharge Planning, Energy Conservation, Expected Functional Level, Falls Prevention, Gait Pattern, Reduction of Deviations, Handout Issued, Home Safety, Positioning, Precautions/Restrictions, Pain Neuroscience, Patient Exercise/Therapy Program Support Needs, [...] Guard Assistance Gait Device: Wheeled Walker General Deviations/Observations: Nubia decreased, UE weight bearing on assistive device [...] Green DATE: March 31, 2025 TIME: 9:46 AMNormalCleveland Clinic ClevelandURINALYSIS, REFLEX MICROSCOPICon 88-37-3788Abloonhu LM.HPF (Urine sed) [#/Area]NegativeNormalNegativeAccess Hospital [place] on above:Order Comment: Specimen Type: URINE SPECIMENOrdering Facility: [facility] Address:[address] [place], [place] [address]Performed By: #### [id number] ####[facility] LABCLIA [id number] [address] [place] [address] [place] AMERICABilirubin Ql (U)NegativeNormalNegativeAccess Hospital [place] on above:Order Comment: Specimen Type: URINE SPECIMENOrdering Facility: [facility] Address:[address] [place] [address] Performed By: #### [id number] ####[facility] [id number] [place] [address] [place] Clarity (Unsp spec)CloudyAbnormalProtestant Hospital on above:Order Comment: Specimen Type: URINE SPECIMENOrdering Facility: [facility] Address:[address] [place], [place] [address]Performed By: #### [id number] ####[facility] [id number] [place] [address] [place] AMERICAColor (U)YellowNormal YellowAccess Hospital [place] on above:Order Comment: Specimen Type: URINE SPECIMENOrdering Facility: [facility] Address:[address] [place], [place] [address]Performed By: #### [id number] ####[facility] [id number] [place] [id number] [place] AMERICAEpithelial cells LM.HPF (Urine sed) [#/Area]None SeenNormal [facility] [place] on above:Order Comment: Specimen Type: URINE SPECIMENOrdering Facility: [facility] Address:[address] [place], [place] [address]Performed By: #### [id number] ####[facility] [id number] [address] [place] [address] [place] AMERICAGlucose Test strip (U) [Mass/Vol]NegativeNormalNegativeAccess Hospital [place] on above:Order Comment: Specimen Type: URINE SPECIMENOrdering Facility: [facility] Address:[address] [place], [place] [address]Performed By: #### [id number] ####[facility] [id number] [address] [place] [address] [place] Hemoglobin Ql (U)3+AbnormalNegativeAccess Hospital [place] on above: Order Comment: Specimen Type: URINE SPECIMENOrdering Facility: [facility] Address:[address] [place], [place] [address]Performed By: #### [id number] ####[facility] LAB[facility] [id number] [place] [address] [place] AMERICAHyaline casts (Urine sed) [#/Area]4-10 /LPFAbnormal0 /LPFCSalem City Hospital on above: Order Comment: Specimen Type: URINE SPECIMENOrdering Facility: [facility] Address:[address] [place], [place] [address]Performed By: #### [id number] ####[facility] [id number] [address], [place] [address] [place] AMERICAKetones Ql (U)Negative NormalNegativeAccess Hospital [place] on above:Order Comment: Specimen Type: URINE SPECIMENOrdering Facility: [facility] Address:[address] [place], [place] [address]Performed By: #### [id number] ####[facility]CL[facility] [id number] [address], [facility] [place] OF AMERICALeukocyte esterase Test strip Ql (U)1+AbnormalNegative [facility] [place] on above:Order Comment: Specimen Type: URINE SPECIMENOrdering Facility: [facility] Address:[address] [place], [place] [address]Performed By: #### [id number] ####[facility]IA [id number] [place] [address] [place] AMERICANitrite Ql (U)NegativeNormalNegativeAccess Hospital [place] on above:Order Comment: Specimen Type: URINE SPECIMENOrdering Facility: [facility] Address:[address] [place], [place] [address]Performed By: #### [id number] ####[facility] LABIA [id number] [address] STATES OF [facility] MEDICAL CENTERpH (U)5.5 [pH]Normal <8.5CSt. Francis HospitalComment on above:Order Comment: Specimen Type: URINE SPECIMENOrdering Facility: [facility] Address:[address] [place], [place] [address]Performed By: #### [id number] ####[facility] LABMA[facility] [id number] [address] STATES [facility] HOSPITALProtein (U) [Mass/Vol]2+AbnormalNegativeAccess Hospital [place] on above:Order Comment: Specimen Type: URINE SPECIMENOrdering Facility: [facility] Address:[address] [place], [place] [address]Performed By: #### [id number] ####[facility] [id number] [place] [address] [place] RBC LM.HPF (Urine sed) [#/Area]/[HPF]Abnormal0-2 /HPFBluffton Hospital Comment on above:Order Comment: Specimen Type: URINE SPECIMENOrdering Facility: [facility] Address:[address] [place] [address] Performed By: #### [id number] ####[facility] LABIA [id number] [place] [address] [place] Specific gravity (U) [Rel density]1.272Xgfwee0.005-1.030Bluffton HospitalComment on above:Order Comment: Specimen Type: URINE SPECIMENOrdering Facility: [facility] Address:[address] [place], [place] [address]Performed By: #### [id number] ####[facility] [id number] [place] [address] [place] Urobilinogen Ql (U)0.2 EU/dLNormal0.2-1.0 EU/dLBluffton HospitalComtrinity health grand rapids [facility] on above:Order Comment: Specimen Type: URINE SPECIMENOrdering Facility: [facility] Address:[address] [place] [address] Performed By: #### [id number] ####[facility] [id number] [place] [address] [place] WBC LM.HPF (Urine sed) [#/Area]0-5 /HPFNormal0-5 /HPFBluffton Hospital Comment on above:Order Comment: Specimen Type: URINE SPECIMENOrdering Facility: [facility] Address:[address] [place] [address] Performed By: #### [id number] ####[facility] [id number] [place] [address] [place] ANES POSTPROC EVALon [id number] POSTPROC EVALHNO ID: [id number] Author: VIKRAM SAUCEDO MD Service: ? Author Type: Physician Type: Anesthesia Postprocedure Evaluation Filed: 04/01/2025 10:14 Note Text: POST ANESTHESIA EVALUATION NOTE : 1950 Procedure Summary Date: 03/30/25 Room / Location: [address] [facility] Anesthesia Start: 1139 Anesthesia Stop: 1714 Procedures: TLIF DECOMPRESSION LAMINECTOMY INTERBODY FUSION LUMBAR [...] [Z01.818]) Surgeons: Johnathan Kraus MD Responsible Provider: Vikram Saucedo MD Anesthesia Type: general ASA Status: 3 Anesthesia Type: general Airway Type: ETT Last Vitals Vitals Value Taken Time BP 111/61 04/01/25 0941 Temp 36.7 ?C (98.1 ?F) 04/01/25 0941 Pulse 91 04/01/25 0941 Resp 19 04/01/25 0941 SpO2 93 % 04/01/25 09 Post Anesthesia Patient Status Patient Evaluation: PACU. [...] PACU/ICU/floor team. Anesthesia Observations No Documentation SIGNATURE: Vikram Saucedo MD PATIENT NAME: Regan Green DATE: April 01, 2025 TIME: 10:13 AM CSN: [id number]le PRE-OPon [id number] PRE-OPHNO ID: [id number] Author: SO SAINZ MD Service: ? Author Type: Anesthesiologist Type: Anesthesia Preprocedure Evaluation Filed: 03/30/2025 11:37 Note Text: ANESTHESIOLOGY DAY OF SURGERY NOTE : 1950 Procedure Information Date/Time: 03/30/251114 Procedures: TLIF DECOMPRESSION LAMINECTOMY INTERBODY FUSION LUMBAR POSTERIOR (PLIF) LEVEL 1 (Spine levels L4-5) INSERTION INTERBODY BIOMED DEVICE(S) W/ANT INSTR ANCHORING TO DISC SPACE W/INTERBODY FUSION,EA INTERSPACE (Spine levels L4-5) POSTERIOR NON-SEGMENTAL INSTRUMENTATION FOLLOWING LUMBAR FUSION 1 LEVEL PDFI (Spine levels L4-5) AUTOGRAFT FOR SPINE SURGERY ONLY, OBTAINED FROM SAME INCISION (Spine levels L4-5) Location: MAIN [address] [facility] Surgeons: Johnathan Kraus MD Estimated [...] Airway type: ETT NPO Status: adequate Beta Sivan Monitoring Plan Monitoring plan: standard ASA and invasive hemodynamic monitoring. Monitoring method: arterial Line Post Procedure Analgesic Plan Postoperative analgesic plan: multimodal analgesia. Informed Consent Anesthetic risks, benefits, alternatives, personnel and consent discussed: yes. Patient / Responsible Republican agrees to proceed: yes Patient / Surrogate [...] March 30, 2025 TIME: 11:36 AM CSN: [id number]y Hospitals [facility] OP NOTon 09-09-1856ITONZ OP NOTHNO ID: [id number] Author: JESSICA LEE MD Service: Neurosurgery Author Type: Fellow Type: Brief Op Note Filed: 03/30/2025 17:01 Note Text: BRIEF OP NOTE LOG ID: [id number] Surgery/Procedure Date: 03/30/2025 Incision/Procedure Start Time: 1:09 PM Incision Close/Procedure End Time: 4:50 PM Surgeon(s)/Proceduralist(s) and Commercial Appraiser(s): Surgeons and Role: * Johnathan Kraus MD - Primary * Jessica Lee MD - Fellow Procedure(s): revision L4-5 decompression, L4-5 TLIF Anesthesia: General Findings: foraminal stenosis Estimated Blood Loss: 350 mls Specimens: * No specimens in log * Implants: Implant Name Type Inv. Item Serial No. Lumber Kiln Operator Lot No. LRB No. Used Action I-FACTOR PEPTIDE ENHANCED BONE GRAFT PUTTY 5CC - [id number] Graft I-FACTOR PEPTIDE ENHANCED BONE GRAFT PUTTY 5CC [employer]ometry By [employer] [id number] Implanted SCREW JUSTIN 3 SMITH 6.5MM 45MM BONE POLYAXIAL REDUCTION NONSTERILE SPINE Screw PAULINA 4 Implanted HOME JUSTIN 3 6MM TITANIUM 40MM SPINAL RADIOLUCENT - [id number] Home HOME JUSTIN 3 6MM TITANIUM 40MM SPINAL RADIOLUCENT PAULINA SPINE 2 Implanted SCREW JUSTIN 3 TITANIUM SET SIVAN SPINE - [id number] Implant SCREW JUSTIN 3 TITANIUM SET SIVAN SPINE PAULINA SPINE 4 Implanted Complications: None Pre-Op/Pre-Procedure Diagnosis: degenerative spondylolisthesis Post-Op/Post-Procedure Diagnosis: same Postop Plan: - No HOB restriction - Perioperative antibiotics: Ancef - DVT prophylaxis: SCDs and subq hepain POD 2 - Dressing: Silverlon adri - XR lumbar POD 2 - Croft out POD 1 - Hemovac x1 SIGNATURE: Jessica Lee MD PATIENT NAME: Regan Green DATE: March 30, 2025 TIME: 5:00 PM PAGER/CONTACT #: [phone]y Hospitals [facility] NURSING PROGon [id number] PRONO ID: [id number] Author: ROXANNA TANG RN Service: Nursing Author Type: Registered Nurse Type: Nursing Progress Note Filed: 03/31/2025 01:31 Note Text: Transfer Note: PATIENT NAME: Regan Green Patient Location: [place] [address]/[facility] Room: [place] [address] Patient transferred into room/unit H60-49 from PACU via cart. AANDOx4, states pain increased to 8/10 from transferring from cart to bed and pt pressed button for JACKERMAN pump, will review orders. Assessment/VS as documented. Oriented to room, bed lowered, locked, alarms on, call light w/ pt. Admission orders reviewed w/ pt and questions addressed. Applied continuous POX d/t pt having JACKERMAN pump, rate verifyNormMercy HospitalOPERATIVE NOon [id number] NOHNO ID: [id number] Author: JOHNATHAN KRAUS MD Service: Neurosurgery Author Type: Physician Type: Operative Report Filed: 03/31/2025 10:45 Note Text: OPERATIVE/PROCEDURE REPORT NEUROSURGERY LOG ID: [id number] Surgery/Procedure Date: 03/30/2025 Incision/Procedure Start Time: 1:09 PM Incision Close/Procedure End Time: 4:50 PM Surgeon(s)/Proceduralist(s) and Commercial Appraiser(s): Surgeons and Role: * Johnathan Kraus MD [...] from their bed to the operating table [facility] and underwent general anesthesia. A Croft catheter [...] of at the SAP of L5. A Rosebud was then used to identify the L4 and L5 pedicles and these pedicles were skeletonized with a combination of burring and using a Kerrison rongeur. The mammillary process of L4 and L5 were identified bilaterally. The high speed air drill was used to make a small helicopter pilot hole. The gear shift along with [...] to final ti (more content not included)... NormalCincinnati VA Medical Center LUMBAR SPECIFY 1Von [id number] LUMBAR SPECIFY 1V* * *Final Report* * * DATE OF [...] Please see operative note for further details. Info Print Press Operator: LU Transcribe Date/Time: Mar 30 2025 1:34P Dictated by : HITESH VERDUGO DO This examination was interpreted and the report reviewed and electronically signed by: HITESH VERDUGO DO on Mar 30 2025 1:35PM EST [id number] HospitalXR VERIFY LEVEL L-SPINE-NB on [id number] VERIFY LEVEL L-SPINE-NB* * *Final Report* * * DATE OF [...] PM. Images shared via Teams Video Conferencing. Info Print Press Operator: [employer] Transcribe Date/Time: Mar 30 2025 1:53P Dictated by : HITESH VERDUGO DO This examination was interpreted and the report reviewed and electronically signed by: HITESH VERDUGO DO on Mar 30 2025 1:55PM EST [id number] CRITICAL!!Invalid Interpretation CodeBluffton HospitalCNNURSEon 51-01-3347QKGEQZXVkzmu Visit (SPNSMN) REGAN GREEN ([id number]) 1950 M Date Time Provider Department 03/23/25 10:00 AM CARRIE MARTINES NSMN During your visit today, we recorded the following information about you: Carrie Martines, RN 03/23/2025 10:06 AM Signed Neuro SPINE CARE COORDINATION PRE-OP VISIT Spoke with patient for pre op education. Given both written and verbal instructions re : Skin prep, wound care, pain management and post op restrictions. Provided to patient: [facility] Surgery Guide Yes Reviewed with patient to report to desk J19 for surgery ? Yes. Reviewed with the patient to call [phone] the day before to get surgery report [...] 03/18/2025 Encounter Status:Closed by CARRIE MARTINES on 03/23/25NormalCRegency Hospital Toledo W Auto Differential panel (Bld)on 36-27-1720Giugketqr (Bld) [#/Vol] 0.05 10*3/uLNormal<0.11CSalem City Hospital on above:Order Comment: Specimen Type: BLOOD SPECIMENOrdering Facility: [facility] Address:[address] [place], [place] [address]Performed By: #### 49150-1 ####[facility] [id number] [place] [address] [place] AMERICABasophils/100 WBC (Bld)0.7 % NormalAccess Hospital [place] on above:Order Comment: Specimen Type: BLOOD SPECIMENOrdering Facility: [facility] Address:[address] [place], [place] [address]Performed By: #### 02288-0 ####[facility] LABIA [id number] [place] [address] [place] AMERICADifferential cell count method Nom (Bld)AutoNormAvita Health System Bucyrus [facility] on above:Order Comment: Specimen Type: BLOOD SPECIMENOrdering Facility: [facility] Address:[address] [place], [place] [address]Performed By: #### 51552-5 ####[facility] [id number] [place] [address] [place] AMERICAEosinophils (Bld) [#/Vol]0.16 10*3/uLNormal<0.46[facility] [place] on above:Order Comment: Specimen Type: BLOOD SPECIMENOrdering Facility: [facility] Address:[address] [place], [place] [address]Performed By: #### 65671-8 ####[facility] LABCL[facility] [id number] [place] [address] [place] Eosinophils/100 WBC (Bld)2.2 %NormalAccess Hospital [place] on above: Order Comment: Specimen Type: BLOOD SPECIMENOrdering Facility: [facility] Address:[address] [place], [place] [address]Performed By: #### 44705- 8 ####[facility] LABCL[facility] [id number] [place] [address] [place] AMERICAErythrocyte distribution width (RBC) [Ratio]13.1 %Iuucvb69.5-15.0[facility] [place] on above: Order Comment: Specimen Type: BLOOD SPECIMENOrdering Facility: [facility] Address:[address] [place], [place] [address]Performed By: #### 65656- 8 ####[facility] LABCLIA [id number] [address] STATES OF AMERICAHematocrit (Bld) [Volume fraction]44.9 %Ylapss57.0-51.0[facility] [place] on above:Order Comment: Specimen Type: BLOOD SPECIMENOrdering Facility: [facility] Address:[address] [place], [place] [address]Performed By: #### 91536- 8 ####[facility] LABIA [id number] [place] [address] [place] AMERICAHemoglobin (Bld) [Mass/Vol]15.0 g/hTAhzgby11.0-17.0[facility] [place] on above:Order Comment: Specimen Type: BLOOD SPECIMENOrdering Facility: [facility] Address:[address] [place], [place] [address]Performed By: #### 26684-7 ####[facility]CL[facility] [id number] [place] [address] [place] AMERICAImmature granulocytes (Bld) [#/Vol]0.07 10*3/uLNormal<0.10[facility] [place] on above:Order Comment: Specimen Type: BLOOD SPECIMENOrdering Facility: [facility] Address:[address] [place], [place] [address]Performed By: #### 11703- 8 ####[facility]CL[facility] [id number] [place] [address] [place] AMERICAImmature granulocytes/100 WBC (Bld)0.9 %NormalAccess Hospital [place] on above:Order Comment: Specimen Type: BLOOD SPECIMENOrdering Facility: [facility] Address:[address] [place], [place] [address]Performed By: #### 04575-7 ####[facility]CL[facility] [id number] [place] [address] [place] AMERICALymphocytes (Bld) [#/Vol]1.75 10*3/uLNormal1.00-4.00[facility] [place] on above:Order Comment: Specimen Type: BLOOD SPECIMENOrdering Facility: [facility] Address:[address] [place], [place] [address]Performed By: #### 28325-7 ####[facility] [id number] [place] [address] [place] AMERICALymphocytes/100 WBC (Bld)23.5 % NormalAccess Hospital [place] on above:Order Comment: Specimen Type: BLOOD SPECIMENOrdering Facility: [facility] Address:[address] [place], [place] [address]Performed By: #### 56490-8 ####[facility]CL[facility] [id number] [place] [address] [place] AMERICAMCH (RBC) [Entitic mass]30.9 ejBndhpa01.0-34.0[facility] [place] on above:Order Comment: Specimen Type: BLOOD SPECIMENOrdering Facility: [facility] Address:[address] [place], [place] [address]Performed By: #### 70530-3 ####[facility] [id number] [place] [address] [place] MCHC (RBC) [Mass/Vol]33.4 g/sATfrasc12.5-36.0[facility] [place] on above:Order Comment: Specimen Type: BLOOD SPECIMENOrdering Facility: [facility] Address:[address] [place] [address] Performed By: #### 16192-4 ####[facility] [id number] [place] [address] [place] MCV (RBC) [Entitic vol]92.4 oZXobzhg80.0-100.0[facility] [place] on above:Order Comment: Specimen Type: BLOOD SPECIMENOrdering Facility: [facility] Address:[address] [place] [address] Performed By: #### 23577-7 ####[facility] [id number] [place] [address] [place] Monocytes (Bld) [#/Vol]1.01 10*3/uLHigh<0.87[facility] [place] on above:Order Comment: Specimen Type: BLOOD SPECIMENOrdering Facility: [facility] Address:[address] [place], [place] [address]Performed By: #### 97851-2 ####[facility] [id number] [place] [address] [place] AMERICAMonocytes/100 WBC (Bld)13.6 %NormalAccess Hospital [place] on above:Order Comment: Specimen Type: BLOOD SPECIMENOrdering Facility: [facility] Address:[address] [place], [place] [address]Performed By: #### 70201-0 ####[facility] [id number] [place] [address] [place] AMERICANeutrophils (Bld) [#/Vol]4.40 10*3/uLNormal1.45-7.50[facility] [place] on above:Order Comment: Specimen Type: BLOOD SPECIMENOrdering Facility: [facility] Address:[address] [place], [place] [address]Performed By: #### 74400-4 ####[facility] [id number] [place] [address] [place] AMERICANeutrophils/100 WBC (Bld)59.1 % NormalAccess Hospital [place] on above:Order Comment: Specimen Type: BLOOD SPECIMENOrdering Facility: [facility] Address:[address] [place], [place] [address]Performed By: #### 61805-7 ####[facility] [id number] [place] [address] [place] AMERICANucleated RBC (Bld) [#/Vol]10*3/uLNormal<0.01[facility] [place] on above:Order Comment: Specimen Type: BLOOD SPECIMENOrdering Facility: [facility] Address:[address] [place], [place] [address]Performed By: #### 53171-7 ####[facility] [id number] [place] [address] [place] Nucleated RBC/100 WBC (Bld) [Ratio]0.0 /100 WBCNormalCSt. Francis Hospital Comment on above:Order Comment: Specimen Type: BLOOD SPECIMENOrdering Facility: [facility] Address:[address] [place] [address] Performed By: #### 88152-9 ####[facility] [id number] [place] [address] [place] Platelet mean volume (Bld) [Entitic vol]9.2 fLNormal9.0-12.7CSalem City Hospital on above:Order Comment: Specimen Type: BLOOD SPECIMENOrdering Facility: [facility] Address:[address] [place], [place] [address]Performed By: #### 42545-9 ####[facility] [id number] [place] [address] [place] Platelets (Bld) [#/Vol]268 10*3/uTFjwzpo348-619JrjkkoslgAccess Hospital [place] on above:Order Comment: Specimen Type: BLOOD SPECIMENOrdering Facility: [facility] Address:[address] [place] [address] Performed By: #### 86626-4 ####[facility] [id number] [place] [address] [place] RBC (Bld) [#/Vol]4.86 10*6/uLNormal4.20-6.00[facility] [place] on above:Order Comment: Specimen Type: BLOOD SPECIMENOrdering Facility: [facility] Address:[address] [place], [place] [address]Performed By: #### 21154-8 ####[facility] [id number] [place] [address] [place] AMERICAWBC (Bld) [#/Vol]7.44 10*3/uLNormal3.70-11.00[facility] [place] on above:Order Comment: Specimen Type: BLOOD SPECIMENOrdering Facility: [facility] Address:[address] [place], [place] [address]Performed By: #### 70022-3 ####[facility] [id number] [place] [address] [place] AMERICAFerritin SerPl-mCncon 03-18-2025 Ferritin [Mass/Vol]416.0 ng/tSCcuiop73.3-565.7CSalem City Hospital on above:Order Comment: Specimen Type: BLOOD SPECIMENOrdering Facility: [facility] Address:[address] [place] [address] Performed By: #### 07361-5, 2276-4 ####[facility] LABCLIA [id number] [place] [address] [place] HISTORY PHYSICALon [id number] PHYSICALHNO ID: [id number] Author: VANCE FERREIRA, DO Service: ? Author [...] teeth intact. II - ANESTHESIA PLAN Beta Sivan Monitoring Plan Post Procedure Analgesic Plan Informed Consent Anesthetic risks, benefits, alternatives, personnel and consent discussed: yes. Patient / Responsible Republican agrees to proceed: yes Patient / Surrogate [...] Admin: COVID-19 vaccine, age 12+ yr, bivalent (PFIZER-BIONTECH) 09/18/2021 Imm Admin: COVID-19 original vaccine, full [...] for: diabetes mellitus, hyper (more content not included)...Normal Bluffton HospitalIron and Iron binding capacity panelon 32-84-5806Jyzw [Mass/Vol]80 ug/qEJmpybb24-404HoxzdwoioAccess Hospital [place] on above:Order Comment: Specimen Type: BLOOD SPECIMENOrdering Facility: [facility] Address:[address] [place], [place] [address]Performed By: #### 25068- 8, 2276-02 ####[facility] LABCL[facility] [id number] [address] [place] [address] [place] AMERICAIron binding capacity [Mass/Vol]326 ug/fIQihpbl955-622PyfjteozyAccess Hospital [place] on above:Order Comment: Specimen Type: BLOOD SPECIMENOrdering Facility: [facility] Address:[address] [place], [place] [address]Performed By: #### 82068- 8, 2276-02 ####[facility] LABCL[facility] [id number] [place] [address] [place] AMERICAIron/TIBC [Molar ratio] 24.5 %Idouic76.0-57.0[facility] [place] on above:Order Comment: Specimen Type: BLOOD SPECIMENOrdering Facility: [facility] Address:[address] [place], [place] [address]Performed By: #### 54419-9, 2276-4 ####[facility] [id number] [place] [address] [facility] OF AMERICANICOTINE/COTININEon 03-18-2025 Cotinine [Mass/Vol]<2Normal<2CSalem City Hospital on above:Order Comment: Specimen Type: BLOOD SPECIMENOrdering Facility: [facility] Address:[address] [place], [place] [address]Result Comment: Active tobacco product user: Nicotine concentration: 30 - 50 ng/mL Cotinine concentration: 200 - 800 ng/mL Passive exposure to tobacco: Nicotine concentration: < 2 ng/mL Cotinine concentration: < 8 ng/mL Unexposed non-tobacco user or abstinent user for > 2 weeks: Nicotine concentration: < 2 ng/mL Cotinine concentration: < 2 ng/mL This test was developed, and its performance characteristics determined by the [facility] Department of Pathology and Laboratory Medicine. It has not been cleared or approved by the FDA. The [facility] Department of Pathology and Laboratory Medicine is regulated under CLIA as qualified to perform high-complexity testing. This test is used for clinical purposes. It should not be regarded as investigational or for research.Performed By: #### NICOT ####[facility] [id number] [place] [address] [place] AMERICANicotine [Mass/Vol]<2Normal<2 [facility] on above:Order Comment: Specimen Type: BLOOD SPECIMENOrdering Facility: [facility] Address:[address] [place], [place] [address]Performed By: #### NICOT ####[facility] LABCLIA [id number] [place] [address] [place] OF AMERICASTAPHYLOCOCCUS AUREUS AND MRSA SCREEN, PCR, NASALon 03-18-2025S. aureus and MRSA panel YASMIN+probe (Nose)Not detectedNormalNot DetectedAccess Hospital [place] on above:Order Comment: Specimen Type: SWABOrdering Facility: [facility] Address: [address] [place] [address] Performed By: #### SAPCR ####[facility] LABCLIA [id number] [place] [address] [place] [facility]ENTERTYPE AND SCREEN,30 DAYon [id number]m City [facility] on above: Order Comment: Specimen Type: BLOOD SPECIMENOrdering Facility: [facility] Address:[address] [place], [place] [address]Performed By: #### TSCR30 ####[facility] BLOOD BANKCLIA [id number] [address] STATES OF AMERICARh Nom (Bld)PositiveNormalCSalem City Hospital on above:Order Comment: Specimen Type: BLOOD SPECIMENOrdering Facility: [facility] Address:[address] [place], [place] [address]Performed By: #### TSCR30 ####[facility] BLOOD BANKCLIA [id number] [address] STATES OF [facility] MED[facility] CENTERCNPNon [id number] (SPNSMN) REGAN GREEN Per ([id number]) 1950 M Date Time Provider Department 03/10/25 JOHNATHAN KRAUS SPNSMN During your visit today, we recorded the following information about you: Carrie Martines RN 03/10/2025 4:38 PM Signed Surgery Planning Name: Regan Green Age: [age] year old Wt: 102.1 kg (225 lb) BMI: 33.23 kg/(m2) Patient's Home Address: [address] [place] [address] Diagnosis: Spondylolisthesis of lumbar region Procedure: L4/5 [...] 05/08/2017 Encounter Status:Closed by CARRIE MARTINES on [facility]/25[facility] [id number] (NIQ) REGAN GREEN ([id number]) 1950 M Date Time Provider Department 01/28/25 [...] not found Best number to reach caller: [phone] and [phone] Best time to reach caller: anytime Is it OK to leave a detailed voice message? Yes Marcie Burkett RN 01/28/2025 1:18 PM Signed Per [...] for scheduling upon return to office. Carrie Martines RN 02/01/2025 5:12 PM Signed Neuro SPINE [...] for call back. Carrie Martines RN Spine [employer]head Stock Clerk Dolores Fuller 02/02/2025 8:25 AM Signed Patient called; rec'd message from nurse re: surgery date/scheduling; patient is requesting call back; [phone] Carrie Martines RN 02/02/2025 9:38 AM Signed [...] any additional issues. Carrie Martines RN Spine Hogshead Stock Clerk Allergies As of Date: 01/28/2025 (No Known [...] tract infection) [N39.0] 05/08/2017 Encounter Status:Closed by MARCIE STEINBERG on 01/28/25[facility] BONE 3 PHASEon [id number] BONE 3 PHASE* * *Final Report* * * * * [...] 188 mGy*cm CT Dose Reduction Employed: Yes Info Print Press Operator: LU Transcribe Date/Time: Dec 21 2024 9:33A Dictated by : CHARLENE WEBSTER MD This examination was interpreted and the report reviewed and electronically signed by: CHARLENE WEBSTER MD on Dec 09 2024 4:29PM EST This document has been addended by: CHARLENE WEBSTER MD on Dec 21 2024 9:35AM EST [id number] Shattuck Hospital BONE SPECTon [id number] BONE SPECT* * *Final Report* * * * * [...] 188 mGy*cm CT Dose Reduction Employed: Yes [employer] Operator: LU Transcribe Date/Time: Dec 21 2024 9:33A Dictated by : CHARLENE WEBSTER MD This examination was interpreted and the report reviewed and electronically signed by: CHARLENE WEBSTER MD on Dec 09 2024 4:29PM EST This document has been addended by: CHARLENE WEBSTER MD on Dec 21 2024 9:35AM EST [id number] Shattuck Hospital Bone 3 Phase Viewson 12-09-2024* * *Final Report* * * DATE OF EXAM: Dec 09 2024 3:10PM [facility] 0009 - [place] BONE 3 PHASE / [...] shoulders, sternoclavicular, left knee, wrists and feet. [facility] RADIOLOGYProvider, [facility] [place] - 12/09/2024 * * *Final Report* * [...] and bilateral facet joints of L3-L4 level. [employer] Operator: LU Transcribe Date/Time: Dec 09 2024 4:16P Dictated by : CHARLENE WEBSTER MD This examination was interpreted and the report reviewed and electronically signed by: CHARLENE WEBSTER MD on Dec 09 2024 4:29PM [facility] Panel Informationon 32-69-3974ZQBBAUGATS: Degenerative uptake at the endplates of L4-5 level and bilateral facet joints of L3-L4 level. [employer] Operator: LU Transcribe Date/Time: Dec 09 2024 4:16P Dictated by : CHARLENE WEBSTER MD This examination was interpreted and the report reviewed and electronically signed by: CHARLENE WEBSTER MD on Dec 09 2024 4:29PM [facility] RADIOLOGYRadiology Study observation (narrative)[facility] Panel InformationOrdered By: Ccf Provider on 00-45-2413AyzagvkhaProMedica Flower Hospital Boneon 12-09-2024* * *Final Report* * * DATE OF [...] shoulders, sternoclavicular, left knee, wrists and feet. [facility] RADIOLOGYProvider, [facility] [place] - 12/09/2024 * * *Final Report* * [...] and bilateral facet joints of L3-L4 level. Info Print Press Operator: [facility] Transcribe Date/Time: Dec 09 2024 4:16P Dictated by : CHARLENE WEBSTER MD This examination was interpreted and the report reviewed and electronically signed by: CHARLENE WEBSTER MD on Dec 09 2024 4:29PM [facility] HealthOV [id number] Visit (SPNSMN) REGAN GREEN ([id number]) 1950 M Date Time Provider Department 11/25/24 3:10 PM JOHNATHAN KRAUS SPMN During your visit today, we recorded the following information about you: Pulse Blood pressure Weight Height 80/minute 139/87 102.1 kg 1.753 m Johnathan Kraus MD 12/01/2024 7:07 AM Signed SPINE SURGERY NEW PATIENT PCP: Sumanth Light MD REFERRING PROVIDER: Lisa [place] [address] [facility] [address] 30 minutes Assessment/Plan No diagnosis found. Regan [...] Normal sensory exam Dec (more content not included)...NormalSouthview Medical Center AND AUTO DIFFon 31-87-7483QSHBEFCA BASOPHIL0.1 X10E9/LNormal0.0-0.2Pro[facility] Oak Valley HospitalComment on above:Performed By: #### NGOC, 31296-2, CBCA, THYR #### [facility] ([id number]) [address] [place], [place] [address]GVTAKCCS NEUTROPHIL3.7 X10E9/LNormal1.5-6.6ProMedica Oak Valley HospitalComment on above:Performed By: #### NGOC, 97928-1, CBCA, THYR #### [facility] ([id number]) [address], [address] [place], [place] [address]Snojwvhze/100 WBC (Bld)1.1 %NormalACMC Healthcare System Comment on above:Performed By: #### NGOC, 80588-6, CBCA, THYR #### [facility] ([id number]) [address], [address] [place], [place] [address]Raoygcqvctw (Bld) [#/Vol]0.2 10*3/uLNormal0.0-0.4ACMC Healthcare SystemComment on above:Performed By: #### NGOC, 23150-2, CBCA, THYR #### [facility] ([id number]) [address], [address] [place], [place] [address]Bwlomlmiyia/100 WBC (Bld)2.6 %NormalACMC Healthcare System Comment on above:Performed By: #### NGOC, 55709-0, CBCA, THYR #### [facility] ([id number]) [address] [address] [place], [place] [address]Gsowaalpgaw distribution width (RBC) [Ratio]13.5 %Normal 11.5-15.0ACMC Healthcare SystemComment on above:Performed By: #### NGOC, 94864-9, CBCA, THYR #### [facility] ([id number]) [address], [address] [place], [place] [address]Qhkwtlrczc (Bld) [Volume fraction]44.7 %Gukbmb94-77FuiSmboocChristus Santa Rosa Hospital – Medical CenterComment on above:Performed By: #### NGOC, 78558-1, CBCA, THYR #### [facility] ([id number]) [address], [address] [place], [place] [address]Qyeomhgphj (Bld) [Mass/Vol]15.0 g/sHMwpefa08.0-17.0ProChristus Santa Rosa Hospital – Medical CenterComment on above:Performed By: #### NGOC, 93033-3, CBCA, THYR #### [facility] ([id number]) [address], [address] [place], [place] [address]Qygmjzqyiaq (Bld) [#/Vol]1.5 10*3/uLNormal1.0-3.5PPike Community HospitalComment on above:Performed By: #### NGOC, 34925-6, CBCA, THYR #### [facility] ([id number]) [address], [address] [place], [place] [address]Tnzaqhhwrlg/100 WBC (Bld)23.5 %NormalProChristus Santa Rosa Hospital – Medical Center Comment on above:Performed By: #### NGOC, 47816-9, CBCA, THYR #### [facility] ([id number]) [address], [address] [place], [place] [address]HDM (RBC) [Entitic mass]32.1 kcOhgcup74-83UmeIxbmffChristus Santa Rosa Hospital – Medical CenterComment on above:Performed By: #### NGOC, 83821-4, CBCA, THYR #### [facility] ([id number]) [address], [address] [place], [place] [address]ZZZE (RBC) [Mass/Vol]33.6 g/gXGstihr79-12YwpFqbfbgChristus Santa Rosa Hospital – Medical CenterComment on above:Performed By: #### NGOC, 76074-3, CBCA, THYR #### [facility] ([id number]) [address], [address] [place], [place] [address]STW (RBC) [Entitic vol]96 kSAkfzgk20-659UcbKlcayx [facility]remont HospitalComment on above:Performed By: #### NGOC, 03015-9, CBCA, THYR #### [facility] ([id number]) [address], [address] [place], [place] [address]Viyaztlfb (Bld) [#/Vol]0.8 10*3/uLNormal0-0.9ACMC Healthcare SystemComment on above:Performed By: #### NGOC, 76860-2, CBCA, THYR #### [facility] ([id number]) [address], [address] [place], [place] [address]Oegcggfzg/100 WBC (Bld)13.1 %NormalACMC Healthcare System Comment on above:Performed By: #### NGOC, 91437-0, CBCA, THYR #### [facility] ([id number]) [address], [address] [place], [place] [address]Jkahigvjavl/100 WBC (Bld)59.7 %NormalACMC Healthcare System Comment on above:Performed By: #### NGOC, 97164-1, CBCA, THYR #### [facility] ([id number]) [address], [address] [place] [address]Ssbtwnev mean volume (Bld) [Entitic vol]7.5 fLNormal7-12 ACMC Healthcare SystemComment on above:Performed By: #### NGOC, 93136-7, CBCA, THYR #### [facility] ([id number]) [address], [address] [place] [address]Xgjxnnrks (Bld) [#/Vol]246 10*3/hZEadwso064-745QudUiqhak [facility]remont HospitalComment on above:Performed By: #### NGOC, 71796-6, CBCA, THYR #### [facility] ([id number]) [address], [address] [place], [place] [address]RDL COUNT4.68 X10E12/LNormal4.10-5.70[facility] Comment on above:Performed By: #### NGOC, 18216-0, CBCA, THYR #### [facility] ([id number]) [address], [address] [place] [address]XPJ (Bld) [#/Vol]6.2 10*3/uLNormal4.0-11.0ProChristus Santa Rosa Hospital – Medical CenterComment on above:Performed By: #### NGOC, 26469-4, CBCA, THYR #### [facility] ([id number]) [address], [address] [place] [address]XHPTIKJMTWWPF METABOLIC PANELon 31-88-2470Gdrlkue [Mass/Vol]4.6 g/dLNormal3.2-5.3PPike Community HospitalComment on above:Performed By: #### NGOC, 67232-0, CBCA, THYR #### [facility] ([id number]) [address], [address] [place] [address]ZBN [Catalytic activity/Vol]77 U/IVepyxo30-153IffEqwppmChristus Santa Rosa Hospital – Medical CenterComment on above:Performed By: #### NGOC, 35378-4, CBCA, THYR #### [facility] ([id number]) [address], [address] [place], [place] [address]OIX [Catalytic activity/Vol]36 U/LNormal0-40ACMC Healthcare SystemComment on above:Performed By: #### NGOC, 96306-5, CBCA, THYR #### [facility] ([id number]) [address], [address] [place], [place] [address]Iodsu gap [Moles/Vol]11 mmol/LNormal5-15ProSelect Medical Specialty Hospital - Trumbull HospitalComment on above:Performed By: #### NGOC, 70780-6, CBCA, THYR #### [facility] ([id number]) [address], [address] [place], [place] [address]TUS [Catalytic activity/Vol]31 U/LNormal0-41ProChristus Santa Rosa Hospital – Medical CenterComment on above:Performed By: #### NGOC, 89094-9, CBCA, THYR #### [facility] ([id number]) [address], [address] [place], [place] [address]Qouhvxqur [Mass/Vol]0.5 mg/dLNormal0.3-1.2PPike Community HospitalComment on above:Performed By: #### NGOC, 23518-3, CBCA, THYR #### [facility] ([id number]) [address], [facility] [address] [place], [place] [address]Atllbwf [Mass/Vol]9.3 mg/dLNormal8.5-10.5PPike Community HospitalComment on above:Performed By: #### NGOC, 25870-6, CBCA, THYR #### [facility] ([id number]) [address], [facility] [address] [place], [place] [address]Mlenhewr [Moles/Vol]104 mmol/TVqcapk24-245UoyRglalkChristus Santa Rosa Hospital – Medical CenterComment on above:Performed By: #### NGOC, 75659-7, CBCA, THYR #### [facility] ([id number]) [address] [address] [place], [place] [address]JR1 [Moles/Vol]27 mmol/OVkrexb16-14UfpYbeohsPike Community Hospital Comment on above:Performed By: #### NGOC, 13141-1, CBCA, THYR #### [facility] ([id number]) [address] [address] [place], [place] [address]Uvsqhyygju [Mass/Vol]0.68 mg/dLNormal0.60-1.30ProChristus Santa Rosa Hospital – Medical CenterComment on above:Result Comment: METHOD TRACEABLE TO IDMS STANDARD Performed By: #### NGOC, 48575-2, CBCA, THYR #### [facility] ([id number]) [address], [facility] [address] [place], [place] [address]fCMO (CKD-EPI) NON-RACE DEPENDENT>90Normal>59ProChristus Santa Rosa Hospital – Medical CenterComment on above:Result Comment: Reported eGFR is based on the CKD-EPI 2020 equation that does not use a race coefficient.Performed By: #### NGOC, 64455-7, CBCA, THYR #### [facility] ([id number]) [address], [address] [place], [place] [address]Xtwpnar [Mass/Vol]84 mg/mHPiaqhz69-73YvoPhljlwCedar Park Regional Medical Center on above:Performed By: #### NGOC, 34017-8, CBCA, THYR #### [facility] ([id number]) [address], [address] [place], [place] [address]Gzoeyqscj [Moles/Vol]5.0 mmol/LNormal3.5-5.0ProChristus [facility] Rosa Hospital – Medical CenterComment on above:Performed By: #### NGOC, 50181-7, CBCA, THYR #### [facility] ([id number]) [address], [address] [place], [place] [address]Guhinrv [Mass/Vol]7.2 g/dLNormal6.0-8.0ProChristus [facility] Hospital – Medical CenterComment on above:Performed By: #### NGOC, 76159-2, CBCA, THYR #### [facility] ([id number]) [address], [address] [place], [place] [address]Wqrpof [Moles/Vol]142 mmol/XEdkykw792-950MezMrlmkx [facility] HospitalComment on above:Performed By: #### NGOC, 21349-0, CBCA, THYR #### [facility] ([id number]) [address], [address] [place], [place] [address]Onjs nitrogen [Mass/Vol]15 mg/dLNormal5-27ProChristus [facility] Hospital – Medical CenterComment on above:Performed By: #### NGOC, 38118-4, CBCA, THYR #### [facility] ([id number]) [address], [address] [place], [place] [address]Sfayj 1996 panelon 02-57-8806Lcbjnmdylyl [Mass/Vol]191 mg/dL Sydewo824-987PbtDlsggjChristus Santa Rosa Hospital – Medical CenterComment on above:Performed By: #### NGOC, 14913-7, CBCA, THYR #### [facility] ([id number]) [address], [address] [place] [address]Ayclzjmnppq in HDL [Mass/Vol]54 mg/dLNormal>39ProChristus [facility] Hospital – Medical CenterComment on above:Result Comment: HDL <40 mg/dL - High Risk HDL > or = 40mg/dL- Desirable HDL >60 mg/dL - Negative Risk Performed By: #### NGOC, 49972-7, CBCA, THYR #### [facility] ([id number]) [address], [address] [place], [place] [address]Ogzrpzaikex in LDL [Mass/Vol]127 mg/dLNormal<130ProChristus Santa Rosa Hospital – Medical CenterComment on above:Result Comment: LDL <100 mg/dL - Desirable LDL >160 mg/dL - High Risk Performed By: #### NGOC, 03160-9, CBCA, THYR #### [facility] ([id number]) [address], [address] [place] [address]Edlklxinvxe in VLDL [Mass/Vol]10 mg/dLNormal0-30ProChristus [facility] Hospital – Medical CenterComment on above:Performed By: #### NGOC, 87878-1, CBCA, THYR #### [facility] ([id number]) [address], [address] [place], [place] [address]YBQEZUYWRAV:HDL3.8Cljxmt9.0-5.0ProChristus [facility] Hospital – Medical CenterComment on above:Performed By: #### NGOC, 19069-0, CBCA, THYR #### [facility] ([id number]) [address], [address] [place], [place] [address]Qyiemcxcpdeg [Mass/Vol]50 mg/vPQazovt78-268QwnOrldxu [facility]ont HospitalComment on above:Performed By: #### CMP, 68605-0, CBCA, THYR #### [facility] ([id number]) [address], [address] [place] [address]PMTAKSX PROFILEon 00-00-6865Ywhs T4 [Mass/Vol]0.93 ng/dLNormal 0.61-1.60ProChristus [facility] Rosa Hospital – Medical CenterComment on above:Performed By: #### NGOC, 67031-8, CBCA, THYR #### [facility] ([id number]) [address], [address] [place], [place] [address]POL4.45 uIU/mLHigh0.49-4.67ProChristus [facility] Hospital – Medical CenterComment on above:Performed By: #### NGOC, 34716-7, CBCA, THYR #### [facility] ([id number]) [address], [facility] [address] [place], [place] [address]RJ Lumbar spine 2 or 3 Viewson 04-24-2024 Lumbosacral spine: 04/23/2024 10:15 AM. Reason [...] by Juarez Granados MD on 04/24/2024 2:36 [facility] HOSPITALJuarez Justin MD - 04/24/2024 Lumbosacral spine: 04/23/2024 10:15 [...] Juarez Granados MD on 04/24/2024 2:36 PM [facility] HospitalXR Lumbar spine 2 or 3 ViewsOrdered By: Juarez Granados on 04-39-5442BwcYjjvr[address] [place] [address] Work Phone: XR SPINE LUMBAR 2 OR 3 VWSon 15-56-8830MS SPINE LUMBAR 2 OR 3 VWSXR SPINE LUMBAR 2 OR 3 VWS Lumbosacral [...] by Juarez Granados MD on 04/24/2024 2:36 PMNormalOur Lady of Mercy HospitalXR Lumbar spine 2 or 3 Viewson 36-23-0785Rptrdndfu Study observation (narrative)[facility] HospitalXR SPINE LUMB BENDING ONLY 2-3 VWSon 59-66-4209UL SPINE LUMB BENDING ONLY 2-3 VWSXR SPINE LUMB BENDING ONLY 2-3 VWS History: Lumbar laminectomy Exam/Technique: Lateral flexion and extension views of the lumbar spine were obtained. Comparison: 11/14/2023 Findings: Anterolisthesis of L4-5 is seen but appears stable in both flexion and extension views. There is multilevel disc space narrowing, most severe at L5- S1. The vertebral heights are well-maintained. There is no evidence for an acute osseous abnormality. IMPRESSION: Anterolisthesis at L4-5 that appears stable in both flexion and extension views with stable multilevel disc space narrowing. Finalized by Sumanth Menjivar MD on 02/13/2024 2:22 PMNormalOur Lady of Mercy HospitalBASIC METABOLIC PANLon 41-71-5829Ywopa gap [Moles/Vol]8 mmol/LNormal5-15 [facility] HospitalComment on above:Performed By: #### TIP MITCHELL, 11491-2, 91112-8 ####[facility] ([id number])[address], [address] [place] [address]Uwemlcd [Mass/Vol]9.2 mg/dLNormal8.5-10.5ProMedica La Loma HospitalComment on above:Performed By: #### TIP MITCHELL, 34864-1, 48766-4 ####[facility] ([id number])[address], [address] [place] [address]Lnkuukaj [Moles/Vol]103 mmol/EWowlbx48-856LuhKlvfet [place] HospitalComment on above:Performed By: #### TIP MITCHELL, , 97019-7 ####[facility] ([id number])[address] [address], [place] [address]XR1 [Moles/Vol] 28 mmol/WOkudqt28-95AfkKkjnmxUC HealthComment on above:Performed By: #### TIP MITCHELL, , 25435-7 ####[facility] ([id number])[address], [address], [place] [address]Lwcwzlwbve [Mass/Vol]0.77 mg/dLNormal 0.60-1.30[facility] HospitalComment on above:Result Comment: METHOD TRACEABLE TO IDMS STANDARDPerformed By: #### TIP MITCHELL, , 43568-2 ####[facility] ([id number])[address] [address], [place] [address]qIYC (CKD-EPI) NON-RACE DEPENDENT>90Normal>59ProMetrohealth [facility] Medical Center Comment on above:Result Comment: Reported eGFR is based on the CKD-EPI 2020 equation that does not use a race coefficient.Performed By: #### TIP MITCHELL, , 39148-6 ####[facility] ([id number])[address] [address], [place] [address]Gwemact [Mass/Vol]110 mg/lWRqnv56-19UpdYodula [place] HospitalComment on above:Performed By: #### TIP MITCHELL, , 34951-6 ####[facility] ([id number])[address] [address], [place] [address]Ujcfqkcjj [Moles/Vol] 4.3 mmol/LNormal3.5-5.0ProMetrohealth Cleveland Heights Medical CenterComment on above:Performed By: #### TIP MITCHELL, , 62908-2 ####[facility] ([id number])[address] [place], [place] [address]Dvhnnr [Moles/Vol]139 mmol/LIiiymk643-396NpwMbhezfOur Lady of Mercy HospitalComment on above:Performed By: #### CBC, BMP, 93031-5, 30805-8 ####[facility] ([id number])[address], [address], [place] [address]Yapa nitrogen [Mass/Vol]14 mg/dLNormal5-27 [facility] HospitalComment on above:Performed By: #### CBC, BMP, 03766-1, 21130-1 ####[facility] ([id number])[address], [address], [place] [address]Hbxoh Metabolic Panelon 54-08-6240Kdfaw gap [Moles/Vol]8 mmol/L5 - 15 mmol/[facility]vineica Health SystemCalcium [Mass/Vol]9.2 mg/dL8.5 - 10.5 mg/dLMartins Ferry HospitalChloride [Moles/Vol]103 mmol/L98 - 109 mmol/L [facility] HospitalCO2 [Moles/Vol]28 mmol/L22 - 32 mmol/[facility] SystemCreatinine [Mass/Vol]0.77 mg/dL0.60 - 1.30 mg/dLMartins Ferry Hospital Comment on above:METHOD TRACEABLE TO IDMA STANDARDeGFR (CKD-EPI)non-race dependent- [facility] HospitalComment on above: Reported eGFR is based on the CKD-EPI 2020 equation that does not use a race coefficient. Glucose [Mass/Vol]110 mg/sPMrsw04 - 99 mg/dLMartins Ferry Hospital Interpretation and review of laboratory resultsAbnormalMartins Ferry Hospital Potassium [Moles/Vol]4.3 mmol/L3.5 - 5.0 mmol/LProMedica Health SystemSodium [Moles/Vol]139 mmol/L134 - 146 mmol/[facility] SystemUrea nitrogen [Mass/Vol]14 mg/dL5 - 27 mg/dLMartins Ferry HospitalCBC without diffon 80-59-2720Foblyogglhh distribution width (RBC) [Ratio]13.3 %11.5 - 15.0 % [facility] HospitalHematocrit (Bld) [Volume fraction]36.3 %Low39 - 49 % [facility] HospitalHemoglobin (Bld) [Mass/Vol]12.4 g/dLLow13.0 - 17.0 g/dL [facility] HospitalInterpretation and review of laboratory resultsAbnormal [facility] SystemH (RBC) [Entitic mass]30.2 pg27 - 34 pgPKeenan Private HospitalMCHC (RBC) [Mass/Vol]34.2 g/dL32 - 36 g/dLMartins Ferry HospitalMCV (RBC) [Entitic vol]88 fL80 - 100 [facility] CenterPlatelet mean volume (Bld) [Entitic vol]7.2 fL7 - 12 [facility] CenterPlatelets (Bld) [#/Vol]243 10*3/[facility] HospitalRBC (Bld) [#/Vol]4.12 10*6/[facility] HospitalWBC corrected for nucl RBC Auto (Bld) [#/Vol]11.6HGeisinger-Bloomsburg HospitalCOMPLETE BLOOD COUNTon 64-29-4299Mblpkxclgwk distribution width (RBC) [Ratio]13.3 %Bfehpv59.5-15.0[facility] Comment on above:Performed By: #### CBC, BMP, , 08907-9 ####[facility] ([id number])[address], [address] [place] [id number] Hematocrit (Bld) [Volume fraction]36.3 %Cky06-06TboDjcqxeOur Lady of Mercy HospitalComment on above:Performed By: #### CBC, BMP, , 54253-8 ####[facility] ([id number])[address], [address] [place] [id number] (Bld) [Mass/Vol]12.4 g/dLLow13.0-17.0[facility] HospitalComment on above: Performed By: #### CBC, BMP, , 97186-3 ####[facility] ([id number])[address], [address] [place] [address] 92330IHQ (RBC) [Entitic mass] 30.2 gvVunrqo78-07ImlPktkhp Michele HospitalComment on above:Performed By: #### CBC, BMP, , 65072-2 ####[facility] ([id number])[address], [address] [place] [address] 00908OGZT (RBC) [Mass/Vol]34.2 g/nMLgtqot73-80 [facility]hele HospitalComment on above:Performed By: #### CBC, BMP, , 36795-6 ####[facility] ([id number])[address], [address] [place] [address] 30516YLF (RBC) [Entitic vol]88 aMWqppke73-700GwsGebbva Michele HospitalComment on above:Performed By: #### CBC, BMP, , 28232-9 ####[facility] ([id number])[address], [address] [place] [address] 98143Iimauxis mean volume (Bld) [Entitic vol]7.2 fLNormal7-12[facility] Michele HospitalComment on above:Performed By: #### CBC, BMP, , 62132-0 ####[facility] ([id number])[address], [address] [place] [address] 75315Qnqfesryx (Bld) [#/Vol]243 10*3/qHHwqcku435-413LquJeeicg [facility] Comment on above:Performed By: #### CBC, BMP, , 49839-3 ####[facility] ([id number])[address], [address] [place] [address] 65375UBZ COUNT4.12 X10E12/LNormal4.10-5.70[facility] Michele HospitalComment on above: Performed By: #### CBC, BMP, , 79358-4 ####[facility] ([id number])[address], [address] [place] [address] 90751WXB (Bld) [#/Vol]11.6 10*3/uLHigh4.0-11.0[facility]cy HospitalComment on above:Performed By: #### TIP MITCHELL, , 02706-3 ####[facility] ([id number])[address], [address] [place] [address] 43734DCI 12 leadon 48-24-2577QRNVDHZWGCNUUZ [facility] HospitalGlucose Glucometer (BldC) [Mass/Vol]on 40-18-8728Hikakhn [Mass/Vol]98 mg/dL65 - 99 mg/dLLehigh Valley Hospital–Cedar Crest Glucose [Mass/Vol]98 mg/pUUjwoet86-80IsbZbyhfq [place] HospitalMAGNESIUMon 07-35-3024Iemmolxzn [Mass/Vol]1.9 mg/dLNormal1.8-2.6[facility] Comment on above:Performed By: #### TIP MITCHELL, , 03164-6 ####[facility] ([id number])[address], [address] [place] [address] 18893 Magnesiumon 18-79-6363Gszghdhlm [Mass/Vol]1.9 mg/dL1.8 - 2.6 mg/dLMartins Ferry HospitalNo Panel Informationon 20-91-8460WolXjqahhKeenan Private HospitalTROPONIN I on 21-00-5788Rbdqxdrg I.cardiac [Mass/Vol]ng/mLNormal0.00-0.04ProMetrohealth Cleveland Heights Medical CenterComment on above:Performed By: #### TIP MITCHELL, , 06682-3 ####[facility] ([id number])[address], [address] [place] [address] 38570Cyzspktt Ion 39-64-4197Wezyzthj I.cardiac [Mass/Vol]ng/mL0.00 - 0.04 ng/mL [facility] SystemTroponin I.cardiac [Mass/Vol]on 26-01-8641MusXsjwwfKeenan Private HospitalBASIC METABOLIC PANLon 83-76-6012Driqq gap [Moles/Vol]9 mmol/L Normal5-15ProMetrohealth Cleveland Heights Medical CenterComment on above:Performed By: #### STEPHEN, BMP #### [facility] ([id number]) [address] [address] [place], [place] [address]Cvqztak [Mass/Vol]9.4 mg/dLNormal8.5-10.5PUC HealthComment on above:Performed By: #### STEPHEN, BMP #### [facility] ([id number]) [address], [address] [place], [place] [address]Jjetqodb [Moles/Vol]106 mmol/VRxmgzo89-151KeoYvcorz [place] HospitalComment on above:Performed By: #### STEPHEN, BMP #### [facility] ([id number]) [address], [address] [place], [place] [address]XC9 [Moles/Vol]25 mmol/CQktadt40-35AclRfjmnb [facility] Comment on above:Performed By: #### STEPHEN, BMP #### [facility] ([id number]) [address], [address] [place], [place] [address]Ixaopzbfdg [Mass/Vol]0.63 mg/dLNormal0.60-1.30ProMetrohealth Cleveland Heights Medical CenterComment on above:Result Comment: METHOD TRACEABLE TO IDMS STANDARD Performed By: #### STEPHEN, BMP #### [facility] ([id number]) [address] [address] [place], [place] [address]rGJA (CKD-EPI) NON-RACE DEPENDENT>90Normal>59ProC[facility] Clinic Hillcrest Hospital HospitalComment on above:Result Comment: Reported eGFR is based on the CKD-EPI 2020 equation that does not use a race coefficient.Performed By: #### STEPHEN, BMP #### [facility] ([id number]) [address], [address] [place], [place] [address]Rowdbde [Mass/Vol]140 mg/yVQojd79-09WzdEladfxMetrohealth Cleveland Heights Medical Center Comment on above:Performed By: #### CBC, BMP #### [facility] ([id number]) [address], [address] [place], [place] [address]Finloomhv [Moles/Vol]4.6 mmol/LNormal3.5-5.0ProMetrohealth Cleveland Heights Medical CenterComment on above:Performed By: #### STEPHEN, BMP #### [facility] ([id number]) [address], [address] [place], [place] [address]Iafzqy [Moles/Vol]140 mmol/YPguewj207-225LwcEkydqo [place] HospitalComment on above:Performed By: #### STEPHEN, BMP #### [facility] ([id number]) [address], [address] [place], [place] [address]Iywy nitrogen [Mass/Vol]17 mg/dLNormal5-27ProMetrohealth Cleveland Heights Medical CenterComment on above:Performed By: #### STEPHEN, BMP #### [facility] ([id number]) [address], [address] [place] [address]Ejsid Metabolic Panelon 74-42-0580Adfcc gap [Moles/Vol]9 mmol/L5 - 15 mmol/[facility] HospitaloMedica Health SystemCalcium [Mass/Vol]9.4 mg/dL8.5 - 10.5 mg/dL [facility] HospitalChloride [Moles/Vol]106 mmol/L98 - 109 mmol/LProMedica Health SystemCO2 [Moles/Vol]25 mmol/L22 - 32 mmol/LProMedica Health System Creatinine [Mass/Vol]0.63 mg/dL0.60 - 1.30 mg/dLMartins Ferry HospitalComment on above:METHOD TRACEABLE TO IDMS STANDARDeGFR (CKD-EPI)non-race dependent- PINF [facility] HospitalComment on above: Reported eGFR is based on the CKD-EPI 2020 equation that does not use a race coefficient. Glucose [Mass/Vol]140 mg/rDHxdk82 - 99 mg/dLMartins Ferry Hospital Interpretation and review of laboratory resultsAbnormalMartins Ferry Hospital Potassium [Moles/Vol]4.6 mmol/L3.5 - 5.0 mmol/LPrProMedica Memorial Hospital SystemSodium [Moles/Vol]140 mmol/L134 - 146 mmol/[facility] SystemUrea nitrogen [Mass/Vol]17 mg/dL5 - 27 mg/dLProCrichton Rehabilitation CenterCBC without diffon 79-85-7805Durrabwbuno distribution width (RBC) [Ratio]13.5 %11.5 - 15.0 %[facility]erry HospitalHematocrit (Bld) [Volume fraction]37.5 %Low39 - 49 %[facility] HospitalHemoglobin (Bld) [Mass/Vol]12.7 g/dLLow13.0 - 17.0 g/dLMartins Ferry HospitalInterpretation and review of laboratory results AbnormalMartins Ferry HospitalMCH (RBC) [Entitic mass]30.0 pg27 - 34 pg [facility] HospitalMCHC (RBC) [Mass/Vol]33.9 g/dL32 - 36 g/dLMartins Ferry HospitalMCV (RBC) [Entitic vol]89 fL80 - 100 [facility] Platelet mean volume (Bld) [Entitic vol]7.2 fL7 - 12 [facility] Platelets (Bld) [#/Vol]264 10*3/[facility] Regional HospitalRBC (Bld) [#/Vol]4.23 10*6/[facility] HospitalWBC corrected for nucl RBC Auto (Bld) [#/Vol]12.6 HighLehigh Valley Hospital–Cedar CrestCOMPLETE BLOOD COUNTon 08-76-7773Txxwfldgyzf distribution width (RBC) [Ratio]13.5 %Gtvbml96.5-15.0 [facility] HospitalComment on above:Performed By: #### CBC, BMP #### [facility] ([id number]) [address] [place], [place] [address]Bqbzzqtabd (Bld) [Volume fraction]37.5 %Xwl06-96OmcZiaumm Michele HospitalComment on above:Performed By: #### CBC, BMP #### [facility] ([id number]) [address], [address] [place], [place] [address]Kycrzylltj (Bld) [Mass/Vol]12.7 g/dLLow13.0-17.0Pro[facility]ica Michele HospitalComment on above:Performed By: #### CBC, BMP #### [facility] ([id number]) [address], [address] [place], [place] [address]VQS (RBC) [Entitic mass]30.0 lwLbvxpo83-69BmeCviylp Michele HospitalComment on above:Performed By: #### CBC, BMP #### [facility] ([id number]) [address], [address] [place], [place] [address]IAGE (RBC) [Mass/Vol]33.9 g/oXDpzchv98-36OdfUcvjlh Michele HospitalComment on above:Performed By: #### CBC, BMP #### [facility] ([id number]) [address], [address] [place], [place] [address]HCJ (RBC) [Entitic vol]89 rOEgecui94-953LhqVbgqzo Michele HospitalComment on above:Performed By: #### CBC, BMP #### [facility] ([id number]) [address], [address] [place], [place] [address]Txndsjal mean volume (Bld) [Entitic vol]7.2 fLNormal7-12 [facility] HospitalComment on above:Performed By: #### CBC, BMP #### [facility] ([id number]) [address], [address] [place], [place] [address]Guvbrdgns (Bld) [#/Vol]264 10*3/jMOipebk047-386YdhHdsynk Michele HospitalComment on above:Performed By: #### CBC, BMP #### [facility] ([id number]) [address], [address] [place], [place] [address]CLO COUNT4.23 X10E12/LNormal4.10-5.70[facility] Comment on above:Performed By: #### CBC, BMP #### [facility] ([id number]) [address], [address] [place], [place] [address]IOQ (Bld) [#/Vol]12.6 10*3/uLHigh4.0-11.0[facility] HospitalComment on above:Performed By: #### CBC, BMP #### [facility] ([id number]) [address], [address] [place], [place] [address]SIX Rh Repeaton 82-04-8952IQUNHRyrAguxml Health SystemRh Nom (Bld)PositiveLehigh Valley Hospital–Cedar CrestFL FLUORO GUIDANCE SPINAL PUNCTURE OPERATIVEon 62-46-4305VL FLUORO GUIDANCE SPINAL PUNCTURE OPERATIVEFL FLUORO GUIDANCE SPINAL PUNCTURE OPERATIVE FL FLUORO GUIDANCE SPINAL PUNCTURE OPERATIVE INDICATION: Back pain FINDINGS: Intraoperative fluoroscopy for L2-L5 laminectomy. No radiologist present during the examination. Reference air kerma: 1.38 mGy Fluoroscopic time: 5 seconds Number of fluoroscopic images: 3 IMPRESSION: Intraoperative fluoroscopy provided as above. See operative report for additional details. Finalized by José Miguel Avelar on 12/25/2023 4:51 PMNormalProMetrohealth Cleveland Heights Medical CenterRF Guidance for injection of Spine facet jointon 88-44-7304EJ FLUORO GUIDANCE SPINAL PUNCTURE OPERATIVE INDICATION: Back pain FINDINGS: Intraoperative fluoroscopy for L2-L5 laminectomy. No radiologist present during the examination. Reference air kerma: 1.38 mGy Fluoroscopic time: 5 seconds Number of fluoroscopic images: 3 IMPRESSION: Intraoperative fluoroscopy provided as above. See operative report for additional details. Finalized by José Miguel Avelar on 12/25/2023 4:51 José Miguel Maria MD - 12/25/2023 FL FLUORO GUIDANCE SPINAL PUNCTURE OPERATIVE INDICATION: Back pain FINDINGS: Intraoperative fluoroscopy for L2-L5 laminectomy. No radiologist present during the examination. Reference air kerma: 1.38 mGy Fluoroscopic time: 5 seconds Number of fluoroscopic images: 3 IMPRESSION: Intraoperative fluoroscopy provided as above. See operative report for additional details. Finalized by José Miguel Avelar on 12/25/2023 4:51 PM [facility] HospitalRadiology Study observation (narrative)[facility] HospitalRF Guidance for injection of Spine facet jointOrdered By: José Miguel Avelar on 72-37-3639YueJesbnkKeenan Private Hospital Work Phone: Bacteria identified Cx Nom (U)on 93-33-4033Qzbottc comment (Unsp spec) [Interp]<10,000 ORGANISMS/ML NORMAL URO GENITAL CORINA Le[facility] Hospital–Cedar CrestABO Rh Repeaton 86-48-8479FZKMC [facility]erry HospitalRh Nom (Bld)PositiveLehigh Valley Hospital–Cedar CrestAPTTon 20-65-8201dCFP Coag (PPP) [Time]31 [facility] BASIC METABOLIC PANLon 85-14-6354Lnoye gap [Moles/Vol]13 mmol/LNormal5-15 [facility] HospitalComment on above:Performed By: #### MATEO PINR, 53299- 9, BMP #### [facility] ([id number]) [address], [address] [place], [place] [address]Vscczdu [Mass/Vol]10.1 mg/dLNormal8.5-10.5PUC HealthComment on above:Performed By: #### CBCSarah PINR, 59413-8, BMP #### [facility] ([id number]) [address], [address] [place], [place] [address]Kjqydvqs [Moles/Vol]103 mmol/RPnvbbb45-963SfkRcqnykOur Lady of Mercy HospitalComment on above:Performed By: #### CBCA, PINR, 99133-2, BMP #### [facility] ([id number]) [address], [address] [place], [place] [address]SO0 [Moles/Vol]25 mmol/JTzravd30-80RlaTmvqjvUC Health Comment on above:Performed By: #### BUCKY GALINDO, 40848-0, BMP #### [facility] ([id number]) [address], [address] [place], [place] [address]Ziubkifung [Mass/Vol]0.76 mg/dLNormal0.60-1.30ProMetrohealth Cleveland Heights Medical CenterComment on above:Result Comment: METHOD TRACEABLE TO IDMS STANDARD Performed By: #### BUCKY GALINDO, 97986-2, BMP #### [facility] ([id number]) [address], [address] [place], [place] [address]dBTL (CKD-EPI) NON-RACE DEPENDENT>90Normal>59ProMetrohealth Cleveland Heights Medical CenterComment on above:Result Comment: Reported eGFR is based on the CKD-EPI 2020 equation that does not use a race coefficient.Performed By: #### BUCKY GALINDO, 19895-3, BMP #### [facility] ([id number]) [address], [address] [place], [place] [address]Rbgeggg [Mass/Vol]85 mg/kUBamfol10-83OwrKmoneaOur Lady of Mercy Hospital Comment on above:Performed By: #### BUCKY GALINDO, 97004-3, BMP #### [facility] ([id number]) [address], [address] [place], [place] [address]Ciowgwrpr [Moles/Vol]5.0 mmol/LNormal3.5-5.0ProMetrohealth Cleveland Heights Medical CenterComment on above:Result Comment: SPECIMEN HEMOLYZED, RESULTS INCREASED MODERATELY HEMOLYZEDPerformed By: #### BUCKY GALINDO, 52995-0, BMP #### [facility] ([id number]) [address], [address] [place], [place] [address]Jqhrxo [Moles/Vol]141 mmol/FTtfxri126-737VozWwprzl [place] HospitalComment on above:Performed By: #### BUCKY GALINDO, 03524-5, BMP #### [facility] ([id number]) [address], [address] [place], [place] [address]Uffi nitrogen [Mass/Vol]20 mg/dLNormal5-27[facility] HospitalComment on above:Performed By: #### BUCKY GALINDO, 47264-9, BMP #### [facility] ([id number]) [address], [address] [place], [place] [address]Wtnzu Metabolic Panelon 77-69-0170Spmaa gap [Moles/Vol]13 mmol/L 5 - 15 mmol/[facility] SystemCalcium [Mass/Vol]10.1 mg/dL8.5 - 10.5 mg/dL [facility] HospitalChloride [Moles/Vol]103 mmol/L98 - 109 mmol/[facility] SystemCO2 [Moles/Vol]25 mmol/L22 - 32 mmol/[facility] Creatinine [Mass/Vol]0.76 mg/dL0.60 - 1.30 mg/dLMartins Ferry HospitalComment on above:METHOD TRACEABLE TO IDMA STANDARDeGFR (CKD-EPI)non-race dependent- PINF [facility] HospitalComment on above: Reported eGFR is based on the CKD-EPI 2020 equation that does not use a race coefficient. Glucose [Mass/Vol]85 mg/dL65 - 99 mg/dLMartins Ferry HospitalPotassium [Moles/Vol]5.0 mmol/L3.5 - 5.0 mmol/[facility] Hospital SystemComment on above: SPECIMEN HEMOLYZED, RESULTS INCREASED MODERATELY HEMOLYZED Sodium [Moles/Vol]141 mmol/L134 - 146 mmol/LPrSoutheast Colorado Hospital Health SystemUrea nitrogen [Mass/Vol]20 mg/dL5 - 27 mg/dLLehigh Valley Hospital–Cedar CrestCBC AND AUTO DIFFon 53-59-0047ZECUKJTR BASOPHIL0.1 X10E9/LNormal0.0-0.2PUC HealthComment on above:Performed By: #### BUCKY GALINDO, 40884-7, BMP #### [facility] ([id number]) [address], [address] [place], [place] [address]QTKTNVYQ NEUTROPHIL4.4 X10E9/LNormal1.5-6.6ProCleveland Clinic Hillcrest Hospital HospitalComment on above:Performed By: #### CBCSarah, PINR, 10756-6, BMP #### [facility] ([id number]) [address], [address] [place], [place] [address]Ozolhftzm/100 WBC (Bld)0.9 %NormalOur Lady of Mercy Hospital Comment on above:Performed By: #### CBCSarah PINR, 25132-8, BMP #### [facility] ([id number]) [address], [address] [place], [place] [address]Mvtpeagufbs (Bld) [#/Vol]0.2 10*3/uLNormal0.0-0.4ProCleveland Clinic Hillcrest Hospital HospitalComment on above:Performed By: #### CBCSarah PINR, 03469-4, BMP #### [facility] ([id number]) [address], [address] [place], [place] [address]Dasdbrpybdw/100 WBC (Bld)2.6 %NormalOur Lady of Mercy Hospital Comment on above:Performed By: #### CBCSarah PINR, 93315-3, BMP #### [facility] ([id number]) [address], [address] [place], [place] [address]Reywwevwyhi distribution width (RBC) [Ratio]13.6 %Normal 11.5-15.0ProCleveland Clinic Hillcrest Hospital HospitalComment on above:Performed By: #### CBCSarah, PINR, 96129-0, BMP #### [facility] ([id number]) [address], [address] [place], [place] [address]Zgvufimmeh (Bld) [Volume fraction]45.1 %Umcvll53-43XzwIalqfx [place] HospitalComment on above:Performed By: #### CBCA, PINR, 43777-6, BMP #### [facility] ([id number]) [address], [address] [place], [place] [address]Wssehrbndx (Bld) [Mass/Vol]15.5 g/vEAapzuh33.0-17.0ProCincinnati Shriners Hospitalca [place] HospitalComment on above:Performed By: #### CBCA, PINR, 66648-2, BMP #### [facility] ([id number]) [address], [address] [place], [place] [address]Kqqfklthuvu (Bld) [#/Vol]1.5 10*3/uLNormal1.0-3.5Pro[facility]ica [facility] [place] HospitalComment on above:Performed By: #### CBCA, PINR, 75204-3, BMP #### [facility] ([id number]) [address], [address] [place], [place] [address]Hcwgjrgrrob/100 WBC (Bld)21.7 %NormalProCleveland Clinic Hillcrest Hospital Hospital Comment on above:Performed By: #### CBCSarah, PINR, 83687-8, BMP #### [facility] ([id number]) [address], [address] [place], [place] [address]YXS (RBC) [Entitic mass]30.2 wpUcxypg99-49EkyFewtxx [place] HospitalComment on above:Performed By: #### CBCA, PINR, 49230-1, BMP #### [facility] ([id number]) [address], [address] [place], [place] [address]UEFA (RBC) [Mass/Vol]34.4 g/dQHrjmfi24-61VtyTzxuxi [place] HospitalComment on above:Performed By: #### CBCA, PINR, 28046-3, BMP #### [facility] ([id number]) [address] [place], [place] [address]FRU (RBC) [Entitic vol]88 fYOdnxcs55-782VxaLdbfyp [place] HospitalComment on above:Performed By: #### CBCSarah, PINR, 84632-7, BMP #### [facility] ([id number]) [address], [address] [place], [place] [address]Whmnqozoj (Bld) [#/Vol]1.0 10*3/uLHigh0-0.9ProCincinnati Shriners Hospitalca [place] HospitalComment on above:Performed By: #### CBCA, PINR, 34793-9, BMP #### [facility] ([id number]) [address], [address] [place], [place] [address]Zniafthso/100 WBC (Bld)13.6 %NormalOur Lady of Mercy Hospital Comment on above:Performed By: #### CBCA, PINR, 54411-8, BMP #### [facility] ([id number]) [address], [address] [place], [place] [address]Gknagwiigji/100 WBC (Bld)61.2 %NormalOur Lady of Mercy Hospital Comment on above:Performed By: #### CBCA, PINR, 23848-6, BMP #### [facility] ([id number]) [address], [address] [place] [address]Jwyonksf mean volume (Bld) [Entitic vol]7.8 fLNormal7-12 [facility] HospitalComment on above:Performed By: #### CBCA, PINR, 07122- 9, BMP #### [facility] ([id number]) [address], [address] [place] [address]Mmrnrbjwv (Bld) [#/Vol]269 10*3/hEGdgpzw095-501VqwJcfmvu [place] HospitalComment on above:Performed By: #### CBCA, PINR, 36193-8, BMP #### [facility] ([id number]) [address], [address] [place], [place] [address]NJF COUNT5.12 X10E12/LNormal4.10-5.70[facility] Comment on above:Performed By: #### CBCA, PINR, 64857-8, BMP #### [facility] ([id number]) [address], [address] [place], [place] [address]YYR (Bld) [#/Vol]7.1 10*3/uLNormal4.0-11.0[facility] HospitalComment on above:Performed By: #### CBCA, PINR, 27323-5, BMP #### [facility] ([id number]) [address] [place], [place] [address]GYA auto differentialon 82-21-3889Dwpapmuug (Bld) [#/Vol]0.1 10*3/uLMartins Ferry HospitalBasophils/100 WBC (Bld)0.9 %[facility]erry HospitalEosinophils (Bld) [#/Vol]0.2 10*3/uLMartins Ferry HospitalEosinophils/100 WBC (Bld)2.6 %[facility] HospitalErythrocyte distribution width (RBC) [Ratio]13.6 %11.5 - 15.0 %[facility] HospitalHematocrit (Bld) [Volume fraction]45.1 %39 - 49 %[facility] HospitalHemoglobin (Bld) [Mass/Vol]15.5 g/dL13.0 - 17.0 g/dLMartins Ferry HospitalInterpretation and review of laboratory resultsAbnormBethesda North HospitalLymphocytes (Bld) [#/Vol]1.5 10*3/uLMartins Ferry HospitalLymphocytes/100 WBC (Bld)21.7 %[facility] SystemH (RBC) [Entitic mass]30.2 pg27 - 34 [facility] CenterMCHC (RBC) [Mass/Vol]34.4 g/dL32 - 36 g/dLMartins Ferry HospitalMCV (RBC) [Entitic vol]88 fL80 - 100 fLProMedica Health SystemMonocytes (Bld) [#/Vol]1.0 10*3/uLHigh [facility] HospitalMonocytes/100 WBC (Bld)13.6 %[facility] Neutrophils (Bld) [#/Vol]4.4 10*3/uLCleveland Clinic Foundation SystemNeutrophils/100 WBC (Bld)61.2 %[facility] SystemPlatelet mean volume (Bld) [Entitic vol]7.8 fL 7 - 12 fLPKeenan Private HospitalPlatelets (Bld) [#/Vol]269 10*3/[facility] SystemRBC (Bld) [#/Vol]5.12 10*6/[facility] HospitalWBC corrected for nucl RBC Auto (Bld) [#/Vol]7.1PAurora Medical [facility] System No Panel Informationon [id number] Private HospitalPROTIME AND INRon 10-02-6430OQC Coag (PPP) [Relative time]1.0 {INR}Normal0.8-1.1PUC HealthComment on above:Performed By: #### CBCA, PINR, 83232-6, BMP #### [facility] ([id number]) [address] [place] [address], [address] [place], [place] [address]CB Coag (PPP) [Time]11.3 sNormal9.8-13.2PUC HealthComment on above:Performed By: #### CBCA, PINR, 33831-0, BMP #### [facility] ([id number]) [address], [address] [place], [place] [address]Ujdvlmc & INRon [id number] Coag (PPP) [Relative time]1.0 {INR}[facility] HospitalPT Coag (PPP) [Time]11.3 [facility] Type and screenon [id number] Health SystemRh Nom (Bld)Positive [facility]edar CrestURINALYSISon 10-43-5238Wdczlwkid Ql (U)NegativeNormalNEGOur Lady of Mercy HospitalBLOOD/HGBNegativeNormalNEG [facility] HospitalColor (U)YELLOWNormalYELLOWProMetrohealth [facility] Glucose Ql (U)NegativeNormalNEGProMedica La Loma HospitalKetones Ql (U)Negative NormalNEGProMetrohealth [facility] Medical CenterLeukocyte esterase Test strip Ql (U)Negative NormalNEGProMetrohealth [facility] Medical CenterMUCOUSPRESENTAbnormalNONEPUC HealthNitrite Ql (U)NegativeNormalNEGProMetrohealth [facility] Medical CenterpH (U)6.0 [pH] Normal5.0-8.5PUC HealthProtein Ql (U)TraceAbnormalNEGProCleveland Clinic Hillcrest Hospital HospitalR.B.CELLS2 /hpfNormal0-5POhioHealth Mansfield Hospitalpecific gravity (U) [Rel density]1.131Hbvwes0.003-1.035ProMetrohealth [facility] Medical CenterTURBIDITYCLEAR NormalCLEARPUC HealthUrobilinogen (U) [Mass/Vol]mg/dLNormal<1.1 [facility] HospitalW.B.CELLS2 /hpfNormal0-5PUC HealthURINE CULTUREon [id number] identified Cx Nom (U)CULTURE RESULTS <10,000 ORGANISMS/ML NORMAL URO GENITAL FLORAThe [facility] Comment on above:Performed By: #### 630-4 #### [facility] ([id number]) [address] [place] [address], [address] [place], [place] [address]Huwcvkwdszjt 94-75-3160Gzotiwpyd Ql (U)NegativeNegative^Negative [facility] Health SystemColor (U)YELLOWYELLOW^YELLOWProMedidc Health System Glucose (U) [Mass/Vol]NegativeNegative^Negative mg/dLProMedica Health System Hemoglobin Auto test strip Ql (U)NegativeNegative^NegativeProMedica Health SystemInterpretation and review of laboratory resultsAbnormalProMedica Health SystemKetones (U) [Mass/Vol]NegativeNegative^Negative mg/dLProMedica Health SystemLeukocyte esterase Auto test strip Ql (U)NegativeNegative^Negative [facility] Health SystemMucus Ql (Urine sed)PRESENTAbnormalNONE^NONEProFirelands Regional Medical CenterNitrite Auto test strip Ql (U)NegativeNegative^NegativeMartins Ferry HospitalpH (U)6.0 [pH]5.0 - 8.5PWayne HealthCare Main Campus SystemProtein (U) [Mass/Vol]TraceAbnormalNegative^Negative mg/dLProFirelands Regional Medical CenterRBC Auto (Urine sed) [#/Area]2PQuorum Healthpecific gravity Refractometry automated (U) [Rel density]1.0261.003 - 1.035ProFirelands Regional Medical CenterTurbidity Ql (U)CLEARCLEAR^CLEARMartins Ferry HospitalUrobilinogen Qn (U)NINFPKeenan Private HospitalWBC Auto (Urine sed) [#/Area]2PConemaugh Meyersdale Medical CenteraPTT Coag (PPP) [Time]on 94-75-9412wPZX Coag (Bld) [Time]31 sNormal 26-37Our [facility] of Mercy HospitalComment on above:Performed By: #### CBCA, PINR, 17418-2, BMP #### [facility] ([id number]) [address] [place] [address], [address] [place], [place] [address]GP SPINE LUMB BENDING ONLY 2-3 VWSon 23-97-6966EF SPINE LUMB BENDING ONLY 2-3 VWSXR SPINE LUMB BENDING ONLY 2-3 VWS Clinical [...] by Minh Morrell MD on 11/16/2023 8:57 PMNormalOur Lady of Mercy HospitalCovid-19 PCR (CVDTBH)on 54-25-7424YOIT-CoV-2 (COVID-19) RNA YASMIN+probe Ql (Unsp spec)Not detectedNormalNOT DETECTEDThe [facility] Butler HospitalComment on above: Result Comment: This test is not yet approved or cleared by the [place] FDA. When there are no FDA-approved or cleared tests available, and other criteria are met, FDA can make tests available under an emergency access mechanism called an Emergency Use Authorization (EUA). The EUA for this test is supported by the Placement Specialist of Health and Human Service's (HHS's) declaration [...] of clinical signs and symptoms consistent with SARS-CoV-2.Performed By: #### CVDTBH #### [facility] [address] [place] [address] Dr. Keely FitzgeraldVIBRA [facility]OS[facility] Shoulder w/o Lefton 65-46-1777JYR Shoulder w/o LeftHISTORY: Lifting injury. Patient felt a pop and [...] and signed by Boogie Modi on 02/23/2022 1229NoUniversity Hospitals Portage [facility] Center SpecialistPELVIS 1 OR 2 Son 38-66-1028UWROFS 1 OR 2 VWSUniversSelect Medical Specialty Hospital - YoungstownDepartment of Duxspzmrg[address] [place] [address] Patien t Name: REGAN GREEN : 1950ex: MAge: Race: WhiteMRN: [id number]. Location: 84Patient Status: OVisit #: [id number] Date: 04/16/2018 9:20:00 AMCompleted Date: 04/16/2018 09:18 AMRequesting Provider: BILLY KILLIAN Attending Provider: BILLY KILLIAN Report Copy To: Signs & Symptoms: M46.1 Sacroiliitis, not elsewhere classified N25Bkgdfep: AthenaComments: , , , OrderingProvikelsi - BILLY KILLIAN MD , Exam: PELVIS 1 OR 2 VWSAccession #: [id number] PELVIS 1 OR 2 VWS 04/16/2018 9:18 [...] fracture Electronically signed by:Rios Le. Transcribed by: [email or web address], User Resident: Electronically Signed by: RIOS LE @ 04/16/2018 10:35 [facility]own HospitalComment on above:Order Comment: , , , Ordering Provider - BILLY KILLIAN MD , Vital Signs Date TimeVital SignValuePerforming EjwsmdzilMbyeteyf99-10-9953 08:23-0400Body ferotk026.5 cmOvi Mcdaniel MD Work Phone: [facility]10-15-2025 08:23-0400Body mass index (BMI) [Ratio]31.11 kg/g4VmuxwOvi Mcdaniel MD Work Phone: [facility]10-15-2025 08:23-0400Body bbtury209.25 kgOvi Mcdaniel MD Work Phone: [facility] SystemAbsio [facility] HospitalTbilzn28-25-4471 08:230400Diastolic blood lkduwwxw53 mm[Hg]Ovi Mcdaniel MD Work Phone: [facility]10-15-2025 08:23-0400Heart rate 87 /minOvi Mcdaniel MD Work Phone: [facility]10-15-2025 08:23-0400 Respiratory rate18 /minOvi Mcdaniel MD Work Phone: [facility]10-15-2025 08:23-8269GgE4% (BldA) [Mass fraction]94 %Ovi Mcdaniel MD Work Phone: [facility]10-15-2025 08:23-0400Systolic blood miwtrree515 mm[Hg]Ovi Mcdaniel MD Work Phone: [phone]-[facility]10-06-2025 14:31-0400Body mass index (BMI) [Ratio]29.62 kg/i2Qsdfjg Schlachter CHAIRMAN AND CHIEF EXECUTIVE OFFICER-[employer] Work Phone: [phone]-[facility]10-06-2025 14:31-0400Body qstkowblyqi86.01 [degF]Ken Schlachter CHAIRMAN AND CHIEF EXECUTIVE OFFICER-[employer] Work Phone: [phone]-[facility]10-06-2025 14:31-0400Body bipura81.07 kgKena Schlachter CHAIRMAN AND CHIEF EXECUTIVE OFFICER-[employer] Work Phone: [phone]-[facility]10-06-2025 14:31-0400Diastolic blood fuarijro86 mm[Hg]Ken Duartechter CHAIRMAN AND CHIEF EXECUTIVE OFFICER-[employer] Work Phone: [facility]10-06-2025 14:31-0400Heart rate 90 /minKendra Schlachter CHAIRMAN AND CHIEF EXECUTIVE OFFICER-[employer] Work Phone: [phone]-[facility]10-06-2025 14:31-0400 Respiratory rate16 /minKendra Schlachter CHAIRMAN AND CHIEF EXECUTIVE OFFICER-[employer] Work Phone: [phone]-[facility]10-06-2025 14:31-5409OiI0% (BldA) [Mass fraction]98 %Ken Mary CHAIRMAN AND CHIEF EXECUTIVE OFFICER-[employer] Work Phone: [phone]-[facility]10-06-2025 14:31-0400Systolic blood zsdjbenb215 mm[Hg]Ken Mary CHAIRMAN AND CHIEF EXECUTIVE OFFICER-[employer] Work Phone: [facility]06-11-2025 14:11-0400Body scchau281.9 cmMicjunior Canales TERI Work Phone: [facility]06-11-2025 14:11-0400Body mass index (BMI) [Ratio]29.02 kg/t2Xfhyfzhpjunior Canales PA Work Phone: [facility]06-11-2025 14:11-0400Body .07 kgMicjunior Canales PA Work Phone: [facility]06-11-2025 13:38-0400Body mass index (BMI) [Ratio]29.02 kg/h4CwlxsOvi Mcdaniel MD Work Phone: [facility]06-11-2025 13:38-0400Body .07 kgOvi Mcdaniel MD Work Phone: [facility]06-11-2025 13:38-0400Diastolic blood spvnbyql01 mm[Hg]Ovi Mcdaniel MD Work Phone: [facility]06-11-2025 13:38-0400Heart rate 83 /Ling Mcdaniel MD Work Phone: [facility]06-11-2025 13:38-0400 Respiratory rate18 /Ling Mcdaniel MD Work Phone: [facility]06-11-2025 13:38-2427BbP4% (BldA) [Mass fraction]97 %Ovi Mcdaniel MD Work Phone: [facility]06-11-2025 13:38-0400Systolic blood csivluqq819 mm[Hg]Ovi Mcdaniel MD Work Phone: [facility]06-03-2025 14:49-0400Body mass index (BMI) [Ratio]28.21 kg/q3JflzpOvi Mcdaniel MD Work Phone: [facility]06-03-2025 14:49-0400Body pkeuse12.35 kgOvi Mcdaniel MD Work Phone: [facility]06-03-2025 14:49-0400Diastolic blood cqoboiul64 mm[Hg]Ovi Mcdaniel MD Work Phone: [facility]06-03-2025 14:49-0400Heart rate 94 /minOvi Mcdaniel MD Work Phone: [facility]06-03-2025 14:49-0400 Respiratory rate18 /Ling Mcdaniel MD Work Phone: [facility]06-03-2025 14:49-2220PpF7% (BldA) [Mass fraction]98 %Ovi Mcdaniel MD Work Phone: [facility]06-03-2025 14:49-0400Systolic blood hbborcle994 mm[Hg]Ovi Mcdaniel MD Work Phone: [facility]05-15-2025 13:01-0400Body .9 cmPacc 8 Work Phone: [phone]05-15-2025 13:01-0400Body mass index (BMI) [Ratio]30.17 kg/m2Pacc 8 Work Phone: [phone]05-15-2025 13:01-0400Body temperature 97.5 [degF]Pacc 8 Work Phone: [phone]05-15-2025 13:01-0400Body yxaqew159.9 kgPacc 8 Work Phone: [phone]05-15-2025 13:01-0400Diastolic blood srynxnbl25 mm[Hg]Pacc 8 Work Phone: [phone]05-15-2025 13:01-0400Heart rate89 /min Pacc 8 Work Phone: [phone]05-15-2025 13:01-6944UiL7% (BldA) [Mass fraction]95 %Pac 8 Work Phone: [phone]05-15-2025 13:01-0400Systolic blood aztlfdel234 mm[Hg]Pac 8 Work Phone: [phone]01-22-2025 13:57-0500Body ujevhu123.3 cmJohnathan Kraus MD Work Phone: [phone]01-22-2025 13:57-0500Body mass index (BMI) [Ratio]33.23 kg/d1ZctgnqdJohnathan Kraus MD Work Phone: [phone]01-22-2025 13:57-0500Body .06 kgJohnathan Kraus MD Work Phone: [facility]01-22-2025 13:57-0500Diastolic blood gndfgeod08 mm[Hg]Johnathan Kraus MD Work Phone: [facility]01-22-2025 13:57-0500Heart rate80 /min Johnathan Kraus MD Work Phone: [phone]01-22-2025 13:57-7325YlD2% (BldA) [Mass fraction]97 %Johnathan Kraus MD Work Phone: [phone]01-22-2025 13:57-0500Systolic blood trfzogzt587 mm[Hg]Johnathan Kraus MD Work Phone: [phone]10-08-2024 09:12-0400Body rrkatt930.9 cmSumanth Hill MD Work Phone: [facility]10-08-2024 09:12-0400Body mass index (BMI) [Ratio]30.04 kg/x6OeydsSumanth Hill MD Work Phone: [facility]10-08-2024 09:12-0400Body xnnewmcezew44.8 [degF]Sumanth Hill MD Work Phone: [facility]10-08-2024 09:12-0400Body .47 kgSumanth Hill MD Work Phone: [facility]10-08-2024 09:12-0400Diastolic blood qslkzwyd92 mm[Hg]Sumanth Hill MD Work Phone: [facility]10-08-2024 09:12-0400Systolic blood hdsqanda576 mm[Hg]Sumanth Hill MD Work Phone: [facility]08-01-2024 10:55-0400Body xnhaog388.9 cmPmichelle Sosa CHAIRMAN AND CHIEF EXECUTIVE OFFICER-[employer] Work Phone: [facility]08-01-2024 10:55-0400Body mass index (BMI) [Ratio]30.52 kg/p0Tbvlxrhqjoslyn Sosa CHAIRMAN AND CHIEF EXECUTIVE OFFICER-[employer] Work Phone: [facility]08-01-2024 10:55-0400Body .06 kgCarl Sosa CHAIRMAN AND CHIEF EXECUTIVE OFFICER-[employer] Work Phone: [facility]08-01-2024 10:55-0400Diastolic blood rpzoatua37 mm[Hg]Carl John CHAIRMAN AND CHIEF EXECUTIVE OFFICER-[employer] Work Phone: [facility]08-01-2024 10:55-0400Heart rate 87 /Constance Sosa CHAIRMAN AND CHIEF EXECUTIVE OFFICER-[employer]ER [employer]ALLOP Work Phone: [facility]08-01-2024 10:55-0400 Respiratory rate16 /Constance Sosa CHAIRMAN AND CHIEF EXECUTIVE OFFICER-[employer]ER [employer] Work Phone: [facility]08-01-2024 10:55-0400Systolic blood byujroot190 mm[Hg]Carl Sosa CHAIRMAN AND CHIEF EXECUTIVE OFFICER-[employer]ER [employer]ALLOP Work Phone: [facility]06-25-2024 12:59-0400Body aakigp008.9 Wes Heller MD Work Phone: [facility]06-25-2024 12:59-0400Body mass index (BMI) [Ratio]30.52 kg/y9TgvwpsuMinh Heller MD Work Phone: [facility]06-25-2024 12:59-0400Body nyabuh841.06 kgMinh Heller MD Work Phone: [facility]06-25-2024 12:59-0400Diastolic blood pvbodzly72 mm[Hg]Minh Heller MD Work Phone: [facility]06-25-2024 12:59-0400Heart rate 77 /minMinh Heller MD Work Phone: [facility]06-25-2024 12:59-0400Systolic blood mm[Hg]Minh Heller MD Work Phone: [facility]06-20-2024 09:44-0400Body .4 cmShaista Nolen MD Work Phone: [facility]06-20-2024 09:44-0400Body mass index (BMI) [Ratio]29.69 kg/f3BhxiiShaista Nolen MD Work Phone: [facility]06-20-2024 09:44-0400Body .06 kgShaista Nolen MD Work Phone: [facility]06-20-2024 09:44-0400Diastolic blood mm[Hg]Shaista Nolen MD Work Phone: [facility]06-20-2024 09:44-0400Heart rate 79 /minShaista Nolen MD Work Phone: [facility]06-20-2024 09:44-0400Systolic blood prcqwena488 mm[Hg]Shaista Nolen MD Work Phone: [facility]04-10-2024 09:03-0400Body dyauyy385.4 Curry Sosa APRN-[employer] Work Phone: [facility]04-10-2024 09:03-0400Body mass index (BMI) [Ratio]28.37 kg/z0Twggiszc Sosa CHAIRMAN AND CHIEF EXECUTIVE OFFICER-[employer] Work Phone: [facility] [employer] Ormsec14-38-4388 09:03-0400Body ndppyg93.52 kgCarl Sosa CHAIRMAN AND CHIEF EXECUTIVE OFFICER-[employer] Work Phone: [facility]04-10-2024 09:03-0400Diastolic blood keyfszql42 mm[Hg]Carl Sosa CHAIRMAN AND CHIEF EXECUTIVE OFFICER-[employer] Work Phone: [facility] [employer] Qhwzsz84-85-1850 09:03-0400Heart rate 85 /minCarl Sosa CHAIRMAN AND CHIEF EXECUTIVE OFFICER-[employer] Work Phone: [facility] [employer] Wnrgdg42-55-7677 09:03-0400Systolic blood zsbjdgri128 mm[Hg]Carl Sosa CHAIRMAN AND CHIEF EXECUTIVE OFFICER-[employer] Work Phone: [facility] [employer] Fqqklu71-89-8593 11:46-0500Body lmbquorjkit98.29 [degF]Shaista Nolen MD Work Phone: [facility]02-23-2024 11:46-0500Diastolic blood hfnvmyrj58 mm[Hg]Shaista Nolen MD Work Phone: [facility] [employer] Ahoirb30-49-4615 11:46-0500Heart rate 84 /minShaista Nolen MD Work Phone: [facility] [employer] Hnxmav09-85-6162 11:46-0500 Respiratory rate14 /minShaista Nolen MD Work Phone: [facility]02-23-2024 11:46-0500Systolic blood mm[Hg]Shaista Nolen MD Work Phone: [facility]02-23-2024 04:23-6671NoH8% (BldA) [Mass fraction]94 %Shaista Nolen MD Work Phone: [facility] [employer] Onjtqz23-67-2718 22:54-0500Body mass index (BMI) [Ratio]28.76 kg/s4GkdiiShaista Nolen MD Work Phone: [facility]02-21-2024 22:54-0500Body dghimu51.2 kgShaista Nolen MD Work Phone: [facility]02-21-2024 13:27-0500Body uywtmp113.9 cmShaista Nolen MD Work Phone: [facility]02-16-2024 14:20-0500Body myphjs271.[address]02-16-2024 14:20-0500Body mass index (BMI) [Ratio]29.39 kg/k4Reujf[address]02-16-2024 14:20-0500Body funmlfqpywh83.7 [degF][address]02-16-2024 14:20-0500Body buqlau17.[address]02-16-2024 14:20-0500Diastolic blood ipcwtgnk72 mm[Hg][address]02-16-2024 14:20-0500Heart rate77 /min[address]02-16-2024 14:20-0500Respiratory rate18 /min [address]02-16-2024 14:20-8118WjG2% (BldA) [Mass fraction] 97 %[address]02-16-2024 14:20-0500Systolic blood pressure 132 mm[Hg][address]01-11-2024 09:59-0500Body rebsep903.3 cm Carl Sosa APRN-[employer] Work Phone: [facility]01-11-2024 09:59-0500Body mass index (BMI) [Ratio]29.57 kg/m8ZtpqomfmCarl Sosa CHAIRMAN AND CHIEF EXECUTIVE OFFICER-[employer] Work Phone: [facility]01-11-2024 09:59-0500Body .16 kgCarl Sosa CHAIRMAN AND CHIEF EXECUTIVE OFFICER-[employer]ER [employer] Work Phone: [facility]01-11-2024 09:59-0500Diastolic blood qpabvras95 mm[Hg]Carl Sosa CHAIRMAN AND CHIEF EXECUTIVE OFFICER-[employer]OP Work Phone: [facility] CenterBionym Xyecso65-09-4839 09:59-0500Heart rate 81 /minCarl Sosa CHAIRMAN AND CHIEF EXECUTIVE OFFICER-[employer]ER [employer]OP Work Phone: [facility] SystemCamera Service & Integration Uvgmfh41-86-9171 09:59-0500Systolic blood gwwplorj834 mm[Hg]Carl Sosa CHAIRMAN AND CHIEF EXECUTIVE OFFICER-[employer]ALLOP Work Phone: [facility] System[facility] Zkbkxp50-57-3000 10:00-0400Body kudija468.88 cmCesdrasyousif Barkley Other [facility] Other 07-18-2023 10:00-0400Body mass index (BMI) [Ratio] 30.51 kg/v4Xrwxmwpyousif Barkley Other [facility] Other 07-18-2023 10:00-0400Body dqnolb726.06 kgCobelényousif Barkley Other [facility] Other Encounters Encounter DateEncounter TypeCare ProviderFacilityStart: 08-18-2025 End: 40-09-0182Oevfkgs encounter procedureOvi Mcdaniel MD Work Phone: [facility] Physicians Family MedicineComment on above: Encounter for Medicare annual wellness exam (Primary Dx); Pure hypercholesterolemia; Lumbar radiculopathy, chronicStart: 08-18-2025 End: 60-17-0734vkkbxwspfaQPADOProvidence [facility] Ambulatory PPGStart: 85-60-3851Mawbodeeq for general adult medical examination without abnormal findingsProvidence [facility] Center Ambulatory PPGStart: 08-17-2025 End: 30-12-8431nksdfgdmeqVJTCherrington Hospital Work Phone: Start: 08-17-2025 End: 87-74-9124Eumkepb encounter procedureCharity Barkley MD-[facility] Work Phone: Start: 08-10-2025 End: 55-48-3636Gkaswa-up encounterKen Usman CHAIRMAN AND CHIEF EXECUTIVE OFFICER-[employer]ALL[employer] Work Phone: [facility] Physicians Family MedicineComment on above: Uric acid, CBC auto differential, Erythrocyte Sedimentation Rate (ESR), Additional followed-up results: 2Start: 08-10-2025 End: 53-72-1671Hwnjrclfe encounterSweta Woods [facility] Physicians [facility] Cherokeetart: 08-09-2025 End: 07-90-9772jmrahmjjbbBPUVKKNewport Community Hospitaltart: 08-09-2025 End: 30-86-6773Srorby outpatient visit 15 minutesKen Mary CHAIRMAN AND CHIEF EXECUTIVE OFFICER-[employer] Work Phone: [facility] Physicians [facility] HospitalComment on above: Left hand pain (Primary Dx); Swelling of digit of left handStart: 08-09-2025 End: 36-25-2388rjawaxsrsxNZRBPODaviess Community Hospital Ambulatory PPG Start: 87-18-6186kopnirpllpVZYL E ANDERSONFacility:[facility] Start: 07-28-2025 End: 80-41-9454vwhnvlphddYGCGuernsey Memorial Hospital Work Phone: Start: 07-28-2025 End: 34-73-9117Fkiehyk encounter procedureCooxana Barkley MD-[facility] Work Phone: Start: 07-07-2025 End: 83-06-5406Zplwtld encounter procedureJessica Tay MD Work Phone: [facility] DermatologyComment on above:Basal cell carcinoma (BCC) of skin of other part of torso (Primary Dx)Start: 07-07-2025 End: 60-25-8131vdwwgiifchTQKYMElysia Randle AvailableStart: 07-06-2025 End: 51-84-8093Srqzwlrvqf and management of inpatientTIMWillis-K[facility] HospitalStart: 06-29-2025 End: 32-45-1526xsyepgbpujIpeqRey Leija PA-C Work Phone: [facility] InstituteComment on above:SI joint arthritis (Primary Dx); S/P lumbar fusion; Acute post-operative painStart: 06-29-2025 End: 75-71-0983Sunktdnvyfze consultation with Em Leija PA-C Work Phone: Sp[facility] InstituteStart: 06-02-2025 End: 21-79-5897Znzdtl flowsheetEmtere Tay MD Work Phone: noMA [facility] DermatologyStart: 06-02-2025 End: 67-68-5252Gqndqx flowsheetEmtere Tay MD Work Phone: noms [facility] DermatologyStart: 06-02-2025 End: 47-78-8984Umdwoj outpatient visit 15 minutesEmtere Tay MD Work Phone: n[facility] DermatologyComment on above:Melanocytic nevus of trunk (Primary Dx); Actinic keratosis; Lentigines; Seborrheic keratosis; Neoplasm of unspecified behavior of bone, soft tissue, and skinStart: 06-02-2025 End: 41-98-0175vpauvlqflsYGRGP Sarah MEEKSINot AvailableStart: 05-19-2025 End: 16-33-2321Mbqjpf-up encounterJodi WILLIAMSON Work Phone: [facility] Genito-Urinary SurgeonsComment on above:CT urogramStart: 05-12-2025 End: 02-35-4028Vcacmyajg encounterJohnathan Kraus MD Work Phone: NeurologyComment on above:Patient QuestionStart: 05-12-2025 End: 38-60-3943pdoxulurnqUULXKDRQ I MURPHYProMedica Modesto State Hospitaltart: 05-12-2025 End: 53-63-4701Ygbyzycwohtb consultation with Em Leija PA-C Work Phone: Spdenny InstituteStart: 05-12-2025 End: 00-52-3597vyjvhuizwjMolfRey Leija PA-C Work Phone: Spine InstituteComment on above:S/P lumbar fusion (Primary Dx); Numbness and tingling; Acute post-operative painStart: 05-05-2025 End: 98-88-6211Djosufmqo encounterJohnathan Kraus MD Work Phone: NeurologyComment on above:Patient Update; Patient QuestionStart: 13-30-3202zewasuvdmyQEXXAMEMPeaceHealth St. [facility] Start: 04-19-2025 End: 42-43-2524Izeglmsde encounterJohnathan Kraus MD Work Phone: [facility] InstituteComment on above:Patient QuestionStart: 04-15-2025 End: 80-74-4885Mptiylfwx encounterSweta Woods [facility] Physicians [facility] MedicineStart: 04-14-2025 End: 63-39-4213Jvjjof outpatient visit 25 minutesOvi Mcdaniel MD Work Phone: [facility] Physicians Family MedicineComment on above: Encounter for staple removal (Primary Dx); Lumbar radiculopathy, chronic; Status post lumbar spine operative procedure for decompression of spinal cord; Acute bacterial simple cystitisGross hematuria (Primary Dx); Adenocarcinoma of prostate ([facility]-HCC)Start: 04-14-2025 End: 76-98-9720yuvwozqaikHNOCBWSQLegacy [facility] Ambulatory PPG Start: 04-12-2025 End: 29-89-9656Erfhtyrti encounterJodi Russell [facility] MedicineStart: 04-08-2025 End: 71-31-2609Segoafknk encounterJohnathan Kraus MD Work Phone: NeurologyComment on above:Patient QuestionStart: 04-06-2025 End: 63-42-7360Cukfhinuksoz care manage srvc 7 day dischargeOvi Mcdaniel MD Work Phone: [facility] Family MedicineComment on above: Gross hematuria (Primary Dx); Adenocarcinoma of prostate ([facility]-HCC); Radiculopathy, lumbar regionStart: 04-06-2025 End: 62-52-2917vvsmftclimEUJHXJamaica Hospital Medical Center Ambulatory PPGStart: 04-06-2025 End: 07-40-5942Bvjbgdvqg encounterJohnathan Kraus MD Work Phone: Spine InstituteComment on above:Transition Of Care Start: 04-06-2025 End: 14-01-9923Wuenynh evaluation of patient and reportTaunya Terence RNSpine InstituteComment on above:Post-operative state (Primary Dx)Start: 04-06-2025 End: 06-25-9479sebwuxjiubHQQFV KING LIGHTFacility:[facility] Hospitaltart: 68-23-1391xezyljbhmiMLILUFairview Hospital Start: 04-05-2025 End: 42-85-8165Xxmbpbbua encounterSgiana Beard CMAProMedica Physicians Genito- Urinary SurgeonsComment on above:Patient UpdateHematuria, unspecified type (Primary Dx)Start: 03-30-2025 End: 12-75-1926Jbckfkzlsw and management of inpatientDAVID KING LIGHT Facility:[facility] Hospitaltart: 03-23-2025 End: 63-70-2317ltibtfiyyrNDBLH THOMAS DE FRANCEFacility:[facility] Hospitaltart: 03-21-2025 End: 00-52-4814snyatbmlmrWqafe Goran Chan RNInternal Medicine [facility] HospitalQrstse7Anpbg: 03-18-2025 End: 39-88-1401Fswkmodvm to establishmentTammy Ville [address] Work Phone: Pre AnesthesiaStart: 03-18-2025 End: 02-88-2151Egqojjzmsu consultationTammy Ville [address] Work Phone: Pre AnesthesiaComment on above:Radiculopathy, lumbar region (Primary Dx); Malignant neoplasm of prostate (HCC); Status post total knee replacement, unspecified laterality; Preop examinationStart: 03-18-2025 End: 72-09-9219Wphtvgjxiqhea examination doneTammy Ville [address] Work Phone: [facility] Work Phone: Start: 19-07-2993Wgvmuzmhi for other preprocedural examinationSUMANTH LIGHTBluffton HospitalStart: 03-18-2025 End: 66-86-0911ncpulupgoyASOHQ THOMAS DE FRANCEFacility:[facility] Hospitaltart: 03-17-2025 End: 43-34-8071Mglkttxfjedk consultation with Paul Espinoza PSYD Work Phone: Neurology PainStart: 03-17-2025 End: 39-08-0184vqkevsqbflOxxf Davin PSYD Work Phone: Neurology PainComment on above:Spondylolisthesis of lumbar region (Primary Dx)Start: 91-96-4103dbwywdejdtPCPBP THOMAS DE FRANCE Facility:[facility] Hospitaltart: 03-10-2025 End: 05-41-7703jpkfqscsgkDmmdlnrBarber Kraus MD Work Phone: spine InstituteStart: 03-10-2025 End: 44-83-0124Ebudgmb encounter statusJohnathan Kraus MD Work Phone: [facility] Hospitaltart: 03-10-2025 End: 24-33-9561Ipkzbxili encounterJohnathan Kraus MD Work Phone: Spffv InstituteStart: 01-28-2025 End: 51-66-4317Huyiffcxw encounterJohnathan Kraus MD Work Phone: NeurologyComment on above:Schedule SurgeryStart: 01-26-2025 End: 94-72-2924vecwreohozQdnzwzyegTrinity Health [facility] Campus Work Phone: Start: 01-26-2025 End: 12-04-7249Zxahmlw encounter procedureUnc Health Southeastern Phys[facility] GroupCommunity [facility] Work Phone: Start: 01-25-2025 End: 12-42-9338zvhthjboxmCvzmpmiSonya Corona MDFacility:[facility] Start: 01-09-2025 End: 42-74-0026zldsbhgkauPhgujyuBarber Kraus MD Work Phone: [facility] InstituteComment on above:Spondylolisthesis of lumbar region (Primary Dx); Abnormal findings on diagnostic imaging of other parts of musculoskeletal system Start: 01-09-2025 End: 11-06-5078Ttakdjomlrvc consultation with Freddy Kraus MD Work Phone: spine InstituteStart: 40-04-3846iespqfxjngSZQWWFO P STEINMETZFacility:[facility]ertart: 12-09-2024 End: 49-74-0774Ahamxupkgt hospital visit by [facility]Select [facility] [place] [address] Work Phone: [facility] HOSPComment on above: Spondylolisthesis of lumbar region [M43.16]Start: 11-25-2024 End: 55-16-9777emdwraxbgfCXZDM THOMAS DE FRANCEFacility:[facility] Hospitaltart: 11-25-2024 End: 97-99-8020Rqxubvs encounter procedureJohnathan Kraus MD Work Phone: [facility] InstituteComment on above:Spondylolisthesis of lumbar region (Primary Dx); Abnormal findings on diagnostic imaging of other parts of musculoskeletal system Start: 09-07-2024 End: 28-06-3768eelhhyxacgMcejwhy Vytautas Giedraitis Facility:PM Vivek Start: 08-26-2024 End: 10-79-8599Tdwfbj OnlySumanth Hill MD Work Phone: [facility] Hospitaltart: 08-25-2024 End: 16-21-4869absxtqewffOGLZZ T DEFRANCEProCHI St. Luke's Health – Patients Medical Centertart: 08-11-2024 End: 12-79-0866Ussjsua encounter procedureSumanth Hill MD Work Phone: [facility] Family MedicineComment on above: Routine general medical examination at a health care facility (Primary Dx); Lumbar radiculopathy, chronic; Spondylolisthesis of lumbar region; Pure hypercholesterolemia; Adenocarcinoma of prostate ([facility])Start: 08-11-2024 End: 90-57-1944Cbrtfbi encounter statusDaraheel Hill MD Work Phone: [facility] Work Phone: Start: 07-31-2024 End: 23-55-2752jmgzzwrtdkGvwwdqilgTrinity Health [facility] Work Phone: Start: 07-31-2024 End: 15-22-3631Ktgsxvc encounter procedureUn[facility] Work Phone: Start: 07-27-2024 End: 42-43-6904Yiaweavid encounterIsabel Dowell RN Work Phone: [facility] NeuroSurgeryComment on above: Request for retro E8Nrwcx: 07-01-2024 End: 44-73-7769Behlk abstractingUnk Pcp (Hist)NeurologyStart: 06-04-2024 End: 89-08-7374Blzacb outpatient visit 40 minutesPajoslyn ABERNATHY Work Phone: [facility] Physicians NeuroSurgeryComment on above: Spondylolisthesis of lumbar region (Primary Dx)Start: 05-22-2024 End: 93-26-7664wekwysposkTaqoabsjcTrinity Health System West Campus Work Phone: Start: 05-22-2024 End: 44-60-8336Bbzksos encounter procedureUnc Health Southeastern [facility] Work Phone: Start: 04-28-2024 End: 80-79-9835Sxfstz outpatient visit 15 minutesMinh Heller MD Work Phone: [facility] Genito-Urinary SurgeonsComment on above:Adenocarcinoma of prostate ([facility]) (Primary Dx)Start: 04-27-2024 End: 57-60-8434Wrdqhhpry encounterKayleigh Loza Physicians Genito- Urinary SurgeonsStart: 04-23-2024 End: 70-66-6082czbvgafqjaENCWQ A REINARDProPraneethca [facility] Centertart: 04-23-2024 End: 97-32-1666Jlynbs outpatient visit 25 minutesKefaye Nolen MD Work Phone: [facility] NeuroSurgeryComment on above: Spondylolisthesis of lumbar region (Primary Dx); Status post lumbar laminectomy; Radiculopathy, lumbar regionStart: 02-12-2024 End: 93-86-5037zgpmgwoualARRDCYPB JOHNProMedica Michele HospitalStart: 02-12-2024 End: 54-10-2307Qbonqv follow up visit related to original pxCarl Sosa CHAIRMAN AND CHIEF EXECUTIVE OFFICER-FISHER SCALLOP Work Phone: [facility] NeuroSurgeryComment on above: Status post lumbar laminectomy (Primary Dx); Low back pain, non-specific; Leg pain, right; Weakness of right lower extremity; Sensory deficit, rightStart: 01-29-2024 End: 78-22-5019tqxhjvslflRprbppbzhTrinity Health System [facility] Campus Work Phone: Start: 01-29-2024 End: 11-90-5592Anjfimk encounter procedureUnc Health Sout[facility] Physician GroupMonte[facility] Orth[facility] Work Phone: Start: 12-28-2023 End: 14-16-5083priazugwmzWUGU D PERRINGProMedica Michele HospitalStart: 12-25-2023 End: 32-62-9549xuhusmagpqDTTGU A REINARDProMedica Michele HospitalStart: 12-25-2023 End: 42-52-2585cezvxhamicOKCCG A REINARDProMedica Michele HospitalStart: 12-25-2023 End: 69-79-1784Zxqtktsbyi hospital visit by Sujatha Nolen MD Work Phone: [facility] - Observation UnitComment on above:Radiculopathy, lumbar region; Neurogenic claudicationStart: 85-36-0404Zlfidyvux Foreign Russell NeuroSurgeryComment on above:surgeryStart: 12-20-2023 Telephone encounterHoda AlvaradoMedica Physicians Family MedicineStart: 12-20-2023 End: 98-53-0182Rsfdfsz encounter procedureMetro [facility] 9[facility] On Executive ParkwayComment on above:Radiculopathy, lumbar region; Neurogenic claudication; Monitoring for anticoagulant use; Abnormal urine findingsStart: 12-20-2023 End: 89-12-7540xbhfzmngryDDUCK A REINARDMorrow County Hospital HospitalStart: 25-99-2597Zvedzvcmhekbx procedureElise Amber Noriega CHAIRMAN AND CHIEF EXECUTIVE OFFICER-FISHER SCALLOP Work Phone: [facility] NeuroSurgeryStart: 12-10-2023 Telephone encounterMyrtle Hatch LPNProMedgregory Physicians NeuroSurgery Comment on above:surgeryStart: 88-06-8985Jqepoojoa encounterSliza Noeedicsarah Physicians NeuroSurgeryStart: 11-14-2023 End: 63-84-0050mwldbytihuGDGTADED MILLERMercy Health Willard Hospitaltart: 11-14-2023 End: 32-35-0764Krnqtb outpatient new 45 minutesCarl Sosa CHAIRMAN AND CHIEF EXECUTIVE OFFICER-FISHER SCALLOP Work Phone: [facility] NeuroSurgeryComment on above: Neurogenic claudication (Primary Dx); Lumbar radiculopathy, chronicStart: 74-15-4432Djbeojbiw encounterDolores Anderson CMAProMedica Physicians Family MedicineComment on above:Er Follow-upLumbar radiculopathy, chronic (Primary Dx)Start: 10-30-2023 End: 55-09-8295zjmnhqekikOququft [place] Other [employer] Other Start: 84-91-8376Agkdmj outpatient visit 15 minutes Charity Alas OrthopedicsStart: 08-20-2023 End: 51-92-9907udecpwehkxMmgotvh [place] Other [employer] Other Start: 78-94-1818Bxoujx outpatient visit 15 minutes Charityzafar Alas OrthopedicsStart: 07-23-2023 End: 37-15-2810gqzslxizsjEhoriuh Calvarnol Other [employer] Other Start: 73-01-1965Oliccp outpatient visit 15 minutes Charity FilippoFPG [facility] OrthopedicsStart: 70-05-7767Twqfad outpatient visit 15 minutesColleen CalvarnolFPG [facility] OrthopedicsStart: 06-24-2023 End: 94-94-9787wehdwgqaenYTD STAFFFayette County [facility] Work Phone: Start: 06-24-2023 End: 42-71-8619Nhjjqxh encounter procedureMD Charity Barkley Work Phone: [facility] Start: 49-64-1779Jdapve outpatient new 30 minutesColleen AilinG [facility] OrthopedicsStart: 05-21-2023 End: 69-36-1879dyumfvrjwkCG Charity Barkley Work Phone: [facility] Work Phone: Start: 05-21-2023 End: 79-42-1841Harmfvl encounter procedureMD Charity Barkley Work Phone: [facility] Start: 03-19-2023 End: 18-34-7223fzoekiyxmqHHVJZPILGIPA LAKSHMIPATHY .Facility:M5Wqvth: 02-21-2023 End: 65-61-1267wiqjjjzdbgGDGAPQYCLTEE LAKSHMIPATHY .Facility:G3Mankj: 12-18-2022 End: 77-32-2356rlfhixymreKZ ROMERO S SOSA .Facility:O3Jeusz: 11-22-2022 End: 39-21-9944wmghvlzycxXV ROMERO S SOSA .Facility:V3Ttbjd: 29-19-1411Gfhpqigzq for preprocedural laboratory examinationDR ROMERO S SOSA .[facility] Start: 10-09-2022 End: 00-28-5191rlevtkitgwPP ROMERO S SOSA .Facility:I8Dbchf: 10-05-2022 End: 73-85-3821sbpqeiveqpHF ROMERO S SOSA .Facility:X5Sweja: 10-05-2022 End: 67-23-5611Lpfrczlwa for preprocedural laboratory examinationDR ROMERO S SOSA .Facility:Z7Rvrdg: 95-08-3683Vfveewnqr for preprocedural cardiovascular examinationBELÉN HEIS .[facility] Hospitaltart: 09-26-2022 End: 32-22-6799uucqdzgoitMARO SOLIS .Facility:H1Vniof: 09-26-2022 End: 09-75-5635Ckoesojca for preprocedural cardiovascular examinationBELÉN HEIS .Facility:E0Ehjdv: 09-20-2022 End: 36-53-9363kbzcqtetxdFP ROMERO S SOSA .Facility:O4Cxxjj: 08-02-2022 End: 18-20-0298nkukgnpwkgRN ROMERO S SOSA .Facility:K6Ydqjn: 07-17-2022 End: 07-60-2193uewojpregoMQ ROMERO S SOSA .Facility:B9Sfcgy: 06-14-2022 End: 26-64-1448zcahugblpaPX ROMERO S SOSA .Facility:B6Ftwst: 04-16-2018 End: 43-92-3581OdeddflauhCKCBV EBRAHEIMFacility:[facility]ITALtart: 01-28-2018 End: 71-44-1554UlkhczjxxqVRXGTBE PHYSICIANFacility:[facility] Procedures DateProcedureProcedure DetailPerforming ClinicianStart: 67-27-6832Jazat depression screening assessmentOvi Mcdaniel MD Work Phone: Start: 63-18-3261Lczgg depression screening assessment Ken ABERNATHY Work Phone: Start: 97-49-7615Duuwx X-ray of left handStart: 09-77-9089MDDBTWIDGGH OF LESIONEmily Sarah Tay MD Work Phone: Start: 79-64-0975LTOL / NAIL BIOPSYEmily Sarah Tay MD Work Phone: Start: 57-65-5900VKDOSRJJBCO SKIN LESIONEmily Sarah Tay MD Work Phone: Start: 56-47-2907Luwcs dip stick/tablet rgnt auto w/o microscopyMicjunior WILLIAMSON Work Phone: Start: 46-73-5984XHKVPQ REMOVALOvi Mcdaniel MD Work Phone: Start: 92-74-2422Jbcrv depression screening assessment Ovi Mcdaniel MD Work Phone: Start: 80-83-2624Oozsr depression screening assessment Ovi Mcdaniel MD Work Phone: Start: 75-01-5632Hqrcogkf screenDAVID DE FRANCEComment on above:Order Comment: Specimen Type: BLOOD SPECIMENOrdering Facility: [facility] Address:[address] [place] [address] Performed By: #### [id number] ####CC MAIN BLOOD BANKCLIA [id number] [place] [address] [place] AMERICAStart: 16-61-9513Avho &/joint imaging 3 phase studyJohnathan Kraus MD Work Phone: Start: 23-74-3765Xhlfa 1996 panel - Serum or Plasma Johnathan Kraus MD Work Phone: Start: 59-42-4522Aqlgw depression screening assessment Sumanth Hill MD Work Phone: Start: 35-26-2722Eda routine ecg w/least 12 lds trcg only w/o i&rSabrina Black CHAIRMAN AND CHIEF EXECUTIVE OFFICER-FISHER SCALLOP Work Phone: Start: 12-27-2023 End: 23-64-4670Orokz metabolic panel calcium totalSabrina Black CHAIRMAN AND CHIEF EXECUTIVE OFFICER-FISHER SCALLOP Work Phone: Start: 29-96-5844Asklu metabolic panel calcium total Christina Black CHAIRMAN AND CHIEF EXECUTIVE OFFICER-FISHER SCALLOP Work Phone: Start: 69-85-5558Cmtia needle/cath spine/paraspinal dx/ther Ashutosh Nolen MD Work Phone: Start: 12-25-2023 End: 11-87-7646FAVYRABMEVI LUMBAR MULTI Michelle Nolen MD Work Phone: Start: 59-37-4935SOFZRHPZ ABORViral Nolen MD Work Phone: Start: 18-93-5412Hcluaqtv screenMetro 9Start: 44-15-9643Pximc metabolic panel calcium totalShaista Nolen MD Work Phone: Start: 72-10-8320Thhlj typing serologic aboShaista Nolen MD Work Phone: Start: 38-09-0508FWBIHYDO ABORHShaista Nolen MD Work Phone: Start: 73-72-3133Vgrjh dip stick/tablet rgnt auto w/o microscopyShaista Nolen MD Work Phone: Start: 51-82-2191Dzqztxw bacterial quanttative colony count urineShaista Nolen MD Work Phone: Start: 61-38-1735Qobrg 1996 panel - Serum or PlasmaUnk (Hist)Start: 38-85-2161Dfrzs depression screening assessmentDolores Anderson SENIOR POLICY ADVISOR Start: 46-18-0245Zzaov X-ray of right shoulderMD Charity Barkley Work Phone: Start: 65-06-7470Zxwku X-ray of left handMD Charity Barkley Work Phone: Start: 67-93-5652AylycodutkoAcm (Hist) Plan of Treatment DateCare ActivityDetailAuthorStart: 43-03-0661Vjqwkopgd for malignant neoplasm of colonNOMS HealthcareStart: 17-61-9756Tyuph panelLipid ScreeningTriHealth Bethesda Butler Hospitaltart: 47-66-4886Jkreb panelLipid ScreeningTriHealth Bethesda Butler Hospitaltart: 13-44-2595Vubnxmwd ScreeningDiabetes ScreeningDresser ClinicStart: 08-25-2027 Diabetes ScreeningDiabetes ScreeningTriHealth Bethesda Butler Hospitaltart: 87-33-9980Plcijivh ScreeningDiabetes ScreeningTriHealth Bethesda Butler Hospitaltart: 08-19-2026 End: 33-79-5893Iwcmkne encounter /16/2026 8:30 AM EDT Office Visit [facility] [address] [id number] Ovi Mcdaniel MD [address] [place] [address] [facility] MedicineStart: 45-87-3283Pzogl BMI ScreeningAdult BMI ScreeningProLicking Memorial Hospital SystemStart: 89-90-0468Azklobfkvs ScreeningDepression ScreeningProLicking Memorial Hospital SystemStart: 61-96-7977Ysnu Risk ScreeningFall Risk ScreeningProLicking Memorial Hospital SystemStart: 10-15-2026Medicare Annual Wellness VisitMedicare Annual Wellness VisitProLicking Memorial Hospital SystemStart: 77-60-2078Okhqdzd ScreeningTobacco ScreeningCleveland Clinic Foundation SystemStart: 77-68-4534Dvyzb BMI Follow Up PlanAdult BMI Follow Up Plan [facility] SystemStart: 60-32-0450Uvarh BMI ScreeningAdult BMI Screening [facility] SystemStart: 26-77-5696Kxesvfrtyf ScreeningDepression Screening [facility] SystemStart: 03-19-6709Gfkpwna ScreeningTobacco Screening [facility] SystemStart: 61-98-7711Mtarmku ScreeningTobacco Screening [facility] SystemStart: 06-02-2026 End: 14-46-0930Mzgfvjk encounter bxsurpylr72/30/2026 8:45 AM EDT Office Visit [facility] [address] [place] [phone] Jessica Tay MD [address] [place] [address] [facility] DermatologyStart: 04-14-2026 Adult BMI ScreeningAdult BMI ScreeningProLicking Memorial Hospital SystemStart: 04-14-2026 Depression ScreeningDepression ScreeningCleveland Clinic Foundation SystemStart: 04-14-2026 Tobacco ScreeningTobacco ScreeningCleveland Clinic Foundation SystemStart: 84-69-1804Muvsa BMI ScreeningAdult BMI ScreeningCleveland Clinic Foundation SystemStart: 04-06-2026 Depression ScreeningDepression ScreeningCleveland Clinic Foundation SystemStart: 04-06-2026 Tobacco [facility] SystemStart: 02-16-2026 End: 43-06-4138Nfcchwi encounter pazacztsx92/15/2026 9:00 AM EDT Office Visit [facility] [address] [place], [place] [address] Ovi Mcdaniel MD [address] [place], [place] [address] [facility] MedicineStart: 12-08-2025 End: 40-29-0428Ieregjd encounter hikwwghpw78/04/2026 9:35 AM EST Office Visit [facility] [address] [place] [address] Jessica Tay MD [address] [place] [address] NOMSara Alas DermatologyStart: 10-12-2025 End: 46-42-0440Plzpykn encounter xyzhfyoew81/09/2025 3:45 PM EST Office Visit [facility] [address] [place] [address] [address] [facility] [address] Minh Heller MD [address] [place] [address] [facility]-Urinary SurgeonsStart: 08-31-2025 End: 01-77-3590Rjlixbc encounter naxjikztg77/28/2025 11:00 AM EDT Office Visit [facility] [address] [place] [address] Antonia Leija PA-C [address] [place] [address] Sp[facility] InstituteStart: 08-26-2025 End: 14-65-8343Thsenbsljzzbr metabolic 2000 panel - Serum or PlasmaComprehensive metabolic panel Lab Routine Lumbar radiculopathy, chronic Expected: 08/26/2025 (Approximate), Expires: 08/18/2026[facility] Work Phone: comment on above:Expected: 08/26/2025 (Approximate), Expires: 08/18/2026Start: 08-26-2025 End: 47-38-6634Qyesw 1996 panel - Serum or PlasmaLipid profile Lab Routine Pure hypercholesterolemia Expected: 08/26/2025 (Approximate), Expires: 08/18/2026 [facility] HospitalComment on above:Expected: 08/26/2025 (Approximate), Expires: 08/18/2026Start: 08-18-2025 End: 62-00-4047Wtdleot encounter procedureProNorthport Medical Center [facility]icians [facility] Start: 76-45-6632Xprrz BMI ScreeningAdult BMI ScreeningMartins Ferry Hospital Start: 54-68-3108Ydhmjjghbl ScreeningDepression ScreeningMartins Ferry Hospital Start: 57-67-6239Kzla Risk ScreeningFall Risk ScreeningMartins Ferry Hospital Start: 10-08-2025Medicare Annual Wellness VisitMedicare Annual Wellness Visit [facility] Mediafly [facility] Hospitaltart: 38-06-1192Irztxlb ScreeningTobacco Screening [facility] Greensborotart: 08-09-2025 End: 66-44-2370VIL W Auto Differential panel - BloodMartins Ferry Hospital Comment on above:Expected: 08/09/2025, Expires: 08/09/2026Start: 08-09-2025 End: 58-03-0888ND Hand - left 3 ViewsProMedica Work Phone: comment on above:Expected: 08/09/2025, Expires: 08/09/2026Start: 57-46-8606Afeat X-ray of left handXR hand LT min 3V*[facility] Hospitaltart: 92-83-3442QM Hand - left GE 3 ViewsMartins Ferry Hospitaltart: 44-51-3269CVQZS-19 Vaccine ( season) COVID-19 Vaccine ( season)[facility]art: 07-05-2025 Influenza vaccinationSelect Specialty Hospital - Greensborotart: 06-29-2025 End: 57-39-4684fhorchnofd90/26/2025 8:20 AM EDT [facility] [address] [place] [address] Antonia Leija PA-C [address] [place], [place] [phone] Spine InstituteStart: 84-92-4052Hamhe BMI ScreeningAdult BMI ScreeningProMedica Health SystemStart: 53-69-4743Xyfccln ScreeningTobacco ScreeningProCincinnati Shriners Hospitalca Health SystemStart: 06-02-2025 End: 15-50-7521Xhldrcg encounter azdsfcncb86/30/2025 8:45 AM EDT Office Visit [facility] [address] [place] [address] Jessica Tay MD [address] [place] [address] ArrivedKARSTEN Alas DermatologyComment on above:ArrivedStart: 05-12-2025 End: 38-77-4067tetymhimik44/09/2025 10:40 AM EDT [facility] [address] [place] [address] Antonia Leija PA-C [address] [place] [address] MYC Postop [facility] InstituteComment on above:MYC PostopStart: 31-32-0185Ndczq BMI Screening Adult BMI ScreeningProCincinnati Shriners Hospitalca Health SystemStart: 22-27-0580Srckerz Screening Tobacco ScreeningProCincinnati Shriners Hospitalca Health SystemStart: 04-28-2025 End: 80-32-6165Bswfgts encounter fpzltpwau15/25/2025 11:15 AM EDT Office Visit [facility] [address] [place] [address] [address] [place] [address] Jodi Canales PA [address] [place] [address] [facility] Genito-Urinary SurgeonsStart: 47-91-5489Uwelj BMI ScreeningAdult BMI Screening [facility] SystemStart: 04-14-2025 End: 81-75-8732Hkworna encounter procedureProNorthport Medical Center Physicians Family [facility] Start: 04-06-2025 End: 98-15-6866Yvxijeg encounter dejzjqzrc68/03/2025 3:00 PM EDT Office Visit [address] Ovi Mcdaniel MD [address] [place] [address] [facility]art: 04-06-2025 End: 44-41-5525Aejhppo evaluation of patient and nwemwr1304/06/2025 11:00 AM EDT Nurse Visit [facility] [address] [place] [address] Carrie Martines RN 1 week Phone PostopSpine InstituteComment on above:1 week Phone PostopStart: 04-05-2025 End: 05-92-9997hjcxjeqfrx50/02/2025 4:50 PM EDT [facility] [address] [place] [address] [phone] Hardin Memorial Hospital - LabStart: 03-30-2025 End: 48-94-8853Topaxhzvp to same day surgery vnbcnz4403/30/2025 11:30 AM EDT - 03/30/2025 4:30 PM EDT Surgery Admitting [address] [place] [address] Johnathan Kraus MD [address] [facility] [address] [place], [place] [id number] TLIF DECOMPRESSION LAMINECTOMY INTERBODY FUSION LUMBAR POSTERIOR (PLIF) LEVEL 1AdmittingComment on above:TLIF DECOMPRESSION LAMINECTOMY INTERBODY FUSION LUMBAR POSTERIOR (PLIF) LEVEL 1Start: 03-30-2025 End: 10-56-5238Vwdolbyavz dvwoclymuoub71/27/2025 11:30 AM EDT Anesthesia Event Admitting [address] [place] [address] Mildred Gloria CTAdmittingStart: 03-30-2025 End: 20-76-8367Rmmuhqphvwc posterior interbody lumbarTLIF DECOMPRESSION LAMINECTOMY INTERBODY FUSION LUMBAR POSTERIOR (PLIF) LEVEL 1 Spondylolisthesis of lumbar region Pre-op testing 03/30/2025 11:30 AM [facility] MAIN PAVILIONStart: 03-30-2025 End: 50-21-1035Brxgzvvcs spine surgery local from same incisionAUTOGRAFT FOR SPINE SURGERY ONLY, OBTAINED FROM SAME INCISION Spondylolisthesis of lumbar region Pre-op testing 03/30/2025 11:30 AM [facility] MAIN PAVILIONStart: 03-30-2025 End: 90-56-9328Lhre biomchn dev intervertebral dsc spc w/arthrdINSERTION INTERBODY BIOMED DEVICE(S) W/ANT INSTR ANCHORING TO DISC SPACE W/INTERBODY FUSION,EA INTERSPACE Spondylolisthesis of lumbar region Pre-op testing 03/30/2025 11:30 AM [facility] MAIN PAVILIONStart: 03-30-2025 End: 15-57-2286Npdkeglrk non-segmental instrumentationPOSTERIOR NON-SEGMENTAL INSTRUMENTATION FOLLOWING LUMBAR FUSION 1 LEVEL PDFI Spondylolisthesis of lumbar region Pre-op testing 03/30/2025 11:30 AM [facility] MAIN PAVILIONStart: 03-30-2025 Subsequent hospital visit by zlbitifan22/27/2025 11:30 AM EDT Hospital Encounter Admitting [address] [place] [address] Johnathan Kraus MD [address] [facility] [address] [place] [address] Spondylolisthesis of lumbar region [M43.16], Pre-op testing [Z01.818]Admitting Comment on above:Spondylolisthesis of lumbar region [M43.16], Pre-op testing [Z01.818]Start: 03-23-2025 End: 69-60-2689Yjauyyx evaluation of patient and zmhmwi7403/23/2025 10:00 AM EDT Nurse Visit [facility] [address] [place] [id number] Carrie Martines, RN Phone EducationDuke Raleigh Hospital InstituteComment on above:Phone Education Start: 03-18-2025 End: 37-61-0534ytwhyvfluk50/15/2025 2:00 PM EDT Results Only Main [place] [address] Draw Station [address] [address] Preop lab and nasal swabMain [facility] Draw StationComment on above:Preop lab and nasal swabStart: 03-18-2025 End: 91-85-1519Veybgvbout ectpejvragap35/15/2025 1:00 PM EDT PAT Pre Anesthesia [address] [place] [id number] 8, Pacc Main [address] [place] [phone] PreopPre AnesthesiaComment on above: PreopStart: 03-18-2025 End: 86-25-6321Wlrmcii encounter /15/2025 12:30 PM EDT Office Visit Admitting [address] [place] [id number] A12, Admit Interview [address] [place] [phone] PreopAdmittingComment on above:PreopStart: 03-17-2025 End: 93-58-7246sstxcjeyhq26/14/2025 1:00 PM EDT [facility] Neurology Pain [address] [place] [phone] Marek Espinoza, PSYD [address] [place] [address] Xtiq9FFBhmypnsna PainComment on above:Nlnd9GDZhwzy: 03-15-2025 End: 62-64-8343Qqgjssn encounter mtngogmjf17/12/2025 11:15 AM EDT Office [place] [address] [employer] Clearance Phone ScreeningComment on above:RegiStart: 03-11-2025 End: 69-00-9251DYA W Auto Differential panel - BloodCOMPLETE BLOOD COUNT AND DIFFERENTIAL Lab Routine Spondylolisthesis of lumbar region Pre-op testing Anemia, unspecified type Expected: 03/11/2025 (Approximate), Expires: 03/10/2026 [facility] SystemComment on above:Expected: 03/11/2025 (Approximate), Expires: 03/10/2026Start: 03-11-2025 End: 59-95-1616VZNQFSG BLOOD TYPECONFIRM BLOOD TYPE Blood Bank Routine Spondylolisthesis of lumbar region Pre-op testing Anemia, unspecified type Expected: 03/11/2025 (Approximate), Expires: 06/10/2025[facility] ClinicComment on above:Expected: 03/11/2025 (Approximate), Expires: 06/10/2025Start: 03-11-2025 End: 77-74-1358Lwchuaby [Mass/volume] in Serum or PlasmaFERRITIN Lab Routine Spondylolisthesis of lumbar region Pre-op testing Anemia, unspecified type Expe cted: 03/11/2025, Expires: 03/10/2026[facility] CompanyComment on above:Expected: 03/11/2025, Expires: 03/10/2026Start: 03-11-2025 End: 44-72-2630Lkou and Iron binding capacity panel - Serum or PlasmaIRON AND TIBC Lab Routine Spondylolisthesis of lumbar region Pre-op testing Anemia, unspecified type Expected: 03/11/2025 (Approximate), Expires: 03/10/2026 [facility] SystemComment on above:Expected: 03/11/2025 (Approximate), Expires: 03/10/2026Start: 03-11-2025 End: 23-36-8064ALYNAOOM/COTININENICOTINE/COTININE Lab Routine Lumbar spondylosis Expected: 03/11/2025 (Approximate), Expires: 03/10/2026[facility] ClinicComment on above:Expected: 03/11/2025 (Approximate), Expires: 03/10/2026Start: 03-11-2025 End: 05-71-9985GVNQTTBVNWMZEM AUREUS & MRSA SCREEN, PCR, NASALSTAPHYLOCOCCUS AUREUS & MRSA SCREEN, PCR, NASAL Lab Routine Spondylolisthesis of lumbar region Pre-op testing 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) Expected: 03/11/2025 (Approximate), Expires: 09/06/2025[facility] Work Phone: Comment on above:Expected: 03/11/2025 (Approximate), Expires: 09/06/2025Start: 03-11-2025 End: 73-39-4055EACC AND SCREEN,30 DAYTYPE AND SCREEN,30 DAY Blood Bank Routine Spondylolisthesis of lumbar region Pre-op testing Anemia,unspecified type Expected: 03/11/2025 (Approximate), Expires: 06/10/2025levelcone health medcenter high point ClinicComment on above:Expected: 03/11/2025 (Approximate), Expires: 06/10/2025Start: 06-68-2918Jwlcg BMI ScreeningAdult BMI ScreeningProCincinnati Shriners Hospitalca Health SystemStart: 71-95-1118Yrakjmj ScreeningTobacco ScreeningProCincinnati Shriners Hospitalca Health SystemStart: 01-09-2025 End: 77-17-0026tkuwzxcqka00/08/2025 9:30 AM EST [facility] [place] [address] [place] [address] Johnathan Kraus MD [address] [facility] [address] [place] [id number] f/u with providerSchicora InstituteComment on above:f/u with providerStart: 39-82-3547Wxuga BMI ScreeningAdult BMI ScreeningProMedica Health SystemStart: 15-84-9896Gjgpckk ScreeningTobacco ScreeningProMedica Health SystemStart: 52-42-4890Gfijh BMI ScreeningAdult BMI ScreeningProMedica Health SystemStart: 48-70-2978Utjbvdh ScreeningTobacco ScreeningProMedica Health SystemStart: 12-09-2024 End: 93-11-4527Mbnnttl encounter procedureRADIO LAKEVILLE HOSPITAL HOSPComment on above:Weight 225 / Not Diabetic / DX: Abnormal findings on diagnostic imaging of other parts of musculoskeletal system [R93.7] WITH SPECT CT...Start: 11-14-2024 Adult BMI ScreeningAdult BMI ScreeningProMedica Health SystemStart: 11-14-2024 Tobacco ScreeningTobacco ScreeningProMedica Health SystemStart: 11-04-2024 Advance Directive DiscussionAdvance Directive DiscussionDresser ClinicStart: 03-88-7480Yknjkog ScreeningTobacco ScreeningCleveland Clinic Foundation SystemStart: 72-10-5683Pzgn Risk ScreeningFall Risk ScreeningSelect Specialty Hospital - Greensborotart: 33-09-5662Qjjnb BMI ScreeningAdult BMI ScreeningSelect Specialty Hospital - Greensborotart: 08-11-2024 End: 62-61-0613VAC W Auto Differential panel - BloodCBC auto differential Lab Routine Pure hypercholesterolemia Expected: 08/11/2024, Expires: 08/11/2025 [facility] Work Phone: comment on above:Expected: 08/11/2024, Expires: 08/11/2025Start: 08-11-2024 End: 79-25-3953Ktlwjqvchvxvq metabolic 2000 panel - Serum or PlasmaComprehensive metabolic panel Lab Routine Pure hypercholesterolemia Expected: 08/11/2024, Expires: 08/11/2025ProLicking Memorial Hospital SystemComment on above:Expected: 08/11/2024, Expires: 08/11/2025Start: 08-11-2024 End: 09-48-5634Exmyr 1996 panel - Serum or PlasmaLipid profile Lab Routine Pure hypercholesterolemia Expected: 08/11/2024, Expires: 08/11/2025[facility] Ferry HospitalComment on above:Expected: 08/11/2024, Expires: 08/11/2025Start: 08-11-2024 End: 93-75-6015Wcxhiye profile includes TSH IQ3Yuuprbd profile includes TSH FT4 Lab Routine Pure hypercholesterolemia Expected: 08/11/2024, Expires: 08/11/2025 [facility] SystemComment on above:Expected: 08/11/2024, Expires: 08/11/2025Start: 08-11-2024 End: 42-21-6729Danzvth encounter xcixihhlf30/08/2024 9:00 AM EDT Office Visit [facility] [address] [place] [phone] Sumanth Hill MD [address] [place] [address] [facility] MedicineStart: 07-30-2024 End: 77-90-5359Cksmvwu encounter /26/2024 8:30 AM EDT Office Visit [facility] [address] [place], [phone] Sumanth Hill MD [address] [place], [place] [phone] [facility] MedicineStart: 44-84-4739Srnjazbqru ScreeningDepression ScreeningProLicking Memorial Hospital SystemStart: 09-25-2024Medicare Annual Wellness VisitMedicare Annual Wellness VisitProGeorgetown Behavioral Hospitaltart: 11-32-0553IERFA-19 Vaccine ( season)COVID-19 Vaccine ()[facility] SystemStart: 96-33-3149Wgyvz-19 Vaccine ( season)Covid-19 Vaccine ( season)[facility] Hospitaltart: 03-29-5564Awjxjydwv vaccinationTriHealth Bethesda Butler Hospitaltart: 06-04-2024 End: 05-11-6202Jqpfpyh encounter kcdflennh07/01/2024 9:45 AM EDT Office Visit [facility] [address] [place] [phone] Shaista Nolen MD [address] [place] [phone] [facility] Start: 05-01-2024 End: 46-94-9798Bsfrmpr encounter wbvlpwjhy64/28/2024 7:30 AM EDT [facility] [address] [place] [phone] Spondylolisthesis of lumbar regionProCleveland Clinic Mentor Hospitalrj Olvera Rarden - Total RehabComment on above:Spondylolisthesis of lumbar region Start: 04-28-2024 End: 57-93-2541Xkurcrh encounter ysixikkxe98/25/2024 1:00 PM EDT Office Visit [facility] [address] [place] [address] [place] [phone] Minh Heller MD [address] [place] [address] [facility]-Urinary SurgeonsStart: 04-21-2024 End: 88-56-1264Dscrfzy encounter aqxuknbwz68/18/2024 1:45 PM EDT Office Visit [facility] [address] [place] [address] [place] [phone] Minh Heller MD [address] [place] [address] [facility]ito-Urinary SurgeonsStart: 67-48-2241Mogpulhab for malignant neoplasm of colonTriHealth Bethesda Butler Hospitaltart: 02-13-2024 End: 37-92-6104Yqlveno encounter uslebcjut88/11/2024 1:50 PM EDT Office Visit [facility] [address] [place] [phone] Shaista Nolen MD [address] [place] [phone] [facility] Start: 02-12-2024 End: 69-11-0895KR Lumbar spine Views AP W right bending and W left bending [facility] SystemComment on above:Expected: 02/12/2024, Expires: 02/11/2025Start: 12-25-2023 End: 37-36-1536Rbusofpvx to same day surgery wjjmkq5112/25/2023 2:45 PM EST - 12/25/2023 4:45 PM EST Surgery [facility] - Surgery [address] [place] [phone] Shaista Nolen MD [address] [place] [address] [address] [place] [address] LAMINECTOMY LUMBAR MULTI LEVEL / L2-R3KlqSvvsooOur Lady of Mercy Hospital - Surgery Comment on above:LAMINECTOMY LUMBAR MULTI LEVEL / L2-L3Hwkan: 12-25-2023 End: 55-39-6387EIRKIQJZTAB LUMBAR MULTI LEVELCleveland Clinic Foundation SystemStart: 83-31-3050Nrjchidrll hospital visit by ybbseqqfl23/21/2024 2:45 PM EST Hospital Encounter [facility] [address] [place] [address] Shaista Nolen MD [address] [facility] [address] [place] [address] [facility] SurgeryStart: 12-06-2023 End: 77-44-7478Xrybpwx encounter tztxljibu84/02/2024 7:00 AM EST Appointment [facility] - Total Rehab [address] [place] [phone] [facility] Total RehabStart: 11-14-2023 End: 26-02-6416MN Lumbar spine Views AP W right bending and W left bending [facility] Work Phone: Comment on above:Expected: 11/14/2023, Expires: 11/14/2024Start: 15-48-6406Qwncxxe Directive DiscussionAdvance Directive DiscussionTriHealth Bethesda Butler Hospitaltart: 50-44-7888Mgwow-19 Vaccine ( season) Covid-19 Vaccine ( season)[facility] Hospitaltart: 63-41-6214IXKUA-19 Vaccine ( season)COVID-19 Vaccine ( season)[facility] Greensborotart: 44-03-8728Ygplhykoc aortic aneurysm screeningAbdominal Aortic Aneurysm (AAA) ScreenProLicking Memorial Hospital SystemStart: 05-01-2017Medicare Annual Wellness VisitMedicare Annual Wellness VisitTriHealth Bethesda Butler Hospitaltart: 16-73-9915Gewsoimuhtgcki of varicella zoster vaccineZoster (Shingles) Vaccine (1 of 2)[facility] Greensborotart: 86-77-9628Hgalispj Vaccine (2 of 3)Shingrix Vaccine (2 of 3)[facility] Hospitaltart: 49-79-7603AJS Vaccine (1 - 1-dose 60+ series)RSV Vaccine (1 - 1-dose 60+ series)[facility] Hospitaltart: 1997 Screening for malignant neoplasm of colonTriHealth Bethesda Butler Hospitaltart: 1971 DTaP,Tdap and Td Vaccines (1 - Tdap)DTaP,Tdap and Td Vaccines (1 - Tdap) [facility] Greensborotart: 94-46-9875Gdxii microalbumin profileDTaP,Tdap,Td Vaccine (1 - Tdap)[facility] Hospitaltart: 73-29-7509Wgxvd BMI Follow Up PlanAdult BMI Follow Up PlanSelect Specialty Hospital - Greensborotart: 93-13-6833Ihbusdb Screening Anxiety ScreeningTriHealth Bethesda Butler Hospitaltart: 80-81-6374Tmonosudio ScreeningDepression ScreeningTriHealth Bethesda Butler Hospitaltart: 66-10-3549Oreuckcrc C screeningHepatitis C ScreeningTriHealth Bethesda Butler Hospitaltart: 29-64-2154Kxnxkczpd aortic aneurysm screening Abdominal Aortic Aneurysm ScreeningSelect Medical Specialty Hospital - Columbus Southrt: 43-90-7287Udhrirkms for malignant neoplasm of colonPerry County Memorial Hospital End: 25-34-6676Zsuvtilf identified in Urine by CultureUrine culture (clean catch) Microbiology Routine Hematuria, unspecified type 1 Occurrences starting 04/05/2025 until 04/05/2026[facility] HospitalComment on above:1 Occurrences starting 04/05/2025 until 6Bacteria identified in Urine by Culture Urine culture (clean catch) Microbiology Routine Hematuria, unspecified type 04/05/2025 5:05 PM [facility] End: 44-08-9697S-reactive proteinC-reactive protein Lab Routine Left hand pain Swelling of digit of left hand 1 Occurrences wvxnbwaq28/06/2025 until 08/09/2026 [facility] HospitalComment on above:1 Occurrences starting 08/09/2025 until 6C-reactive proteinC-reactive protein Lab Routine Left hand pain Swelling of digit of left hand 08/09/2025 3:35 PM [facility] Cytology non-gynecologicCytology non-gynecologic Pathology and Cytology Routine Gross hematuria [place] of [place] [place] 04/14/2025 4:28 PM EDT [facility] HospitalDermatopathology examDermatopathology exam Pathology and Cytology Timed Neoplasm of unspecified behavior of bone, soft tissue, and skin Release Upon Ordering for 1 Occurrences starting 06/02/2025[facility] Work Phone: comment on above:Release Upon Ordering for 1 Occurrences starting 06/02/2025 End: 26-94-2162Lkfmqmgblfl sedimentation rateErythrocyte Sedimentation Rate (ESR) Lab Routine Left hand pain Swelling of digit of left hand 1 Occurrences starting 08/09/2025 until 08/09/2026[facility] SystemComment on above:1 Occurrences starting 08/09/2025 until 08/09/2026Erythrocyte sedimentation rate Erythrocyte Sedimentation Rate (ESR) Lab Routine Left hand pain Swelling of digit of left hand 08/09/2025 3:35 PM [facility] End: 96-55-8798NP Lumbar spine WO contrastMR lumbar spine without contrast Imaging Routine Status post lumbar laminectomy Low back pain, non-specific Leg pain, right Weakness of right lower extremity Sensory deficit, right 1 Occurrences starting 02/12/2024 until 02/11/2025[facility] Work Phone: Comment on above:1 Occurrences starting 02/12/2024 until 02/11/2025 End: 44-58-7429IO Bone 3 Phase ViewsNM BONE 3 PHASE Radiology Routine Abnormal findings on diagnostic imaging of other parts of musculoskeletal system 1 Occurrences starting 11/25/2024 until 12/25/2025leveland ClinicComment on above:1 Occurrences starting 11/25/2024 until 12/25/2025 End: 16-07-8936Vzkwplwsg specific antigen, diagnosticProstatic specific antigen, diagnostic Lab Routine Aden[place] of prostate [place] [place] 1 Occurrences starting 04/14/2025 until 04/14/2026[facility] Work Phone: Comment on above:1 Occurrences starting 04/14/2025 until 04/14/2026 End: 16-61-4211VSJCH BoneNM BONE SPECT Radiology Routine Spondylolisthesis of lumbar region 1 Occurrences starting 11/25/2024 until 12/25/2025[facility] Work Phone: Comment on above:1 Occurrences starting 11/25/2024 until 12/25/2025 End: 83-85-5057Zjpuj [Mass/volume] in Serum or PlasmaUric acid Lab Routine Left hand pain Swelling of digit of left hand 1 Occurrences starting 08/09/2025 until 08/09/2026[facility] HospitalComment on above:1 Occurrences starting 08/09/2025 until 08/09/2026Urate [Mass/volume] in Serum or PlasmaUric acid Lab Routine Left hand pain Swelling of digit of left hand 08/09/2025 3:[facility] End: 11-77-9310BoakjpzgdoZqapjimfwl Lab Routine Hematuria, unspecified type 1 Occurrences starting 04/05/2025 until 04/05/2026[facility] SystemAbs[facility] Work Phone: comment on above:1 Occurrences starting 04/05/2025 until 04/05/2026UrinalysisUrinalysis Lab Routine Hematuria, unspecified type 04/05/2025 5:05 PM [facility] HospitalUrovysion for bladderUrovysion for bladder Lab Routine Gross hematuria Adenocarcinoma of prostate ([facility]) 04/14/2025 4:28 PM [facility] CenterOmnireliant [facility] End: 67-67-9700NW Lumbar spine AP and LateralXR LUMBAR LIMITED 2V AP/LAT Radiology Routine S/P lumbar fusion SI joint arthritis 1 Occurrences starting 06/29/2025 until 07/29/2026[facility] Work Phone: Comment on above:1 Occurrences starting 06/29/2025 until 07/29/2026 Immunizations Immunization DateImmunizationNotesCare TipyrzguAaqoankn93-15-9549Gcduzxjwi High Dose Preservative Free Tabatha Mcdaniel MD Work Phone: [facility] HospitalTdssbo57-26-3064wercuetps, high dose seasonal, preservative-Johana Hill MD Work Phone: [facility] SystemAbsio [facility] HospitalFcllng47-42-0409Mztxbzoyuspa Conjugate 20-valentSumanth Hill MD Work Phone: [facility] HospitalRmgliw86-56-4169mudmsllbn virus vaccine, unspecified formulationSherri Kisha [facility] 63-17-0774Ccqegatdi, High-dose, QuadrivalentSumanth Hill MD Work Phone: [facility]10-02-2023RSV, bivalent, protein subunit RSVpreF, diluent reconstituted, 0.5 mL, PFDavisuly Hill MD Work Phone: [facility] HospitalLsbjun14-81-4378bglgsmopz virus vaccine, unspecified formulationPajoslyn Sosa APRNJT Work Phone: [facility] HospitalTggzfy06-49-6982Yqbbckorx, High-dose, QuadrivalentKristina [facility]10-17-2022influenza virus vaccine, unspecified formulationUnk (Hist)[facility] Healthcare SystemMerkhh17-90-3216Ectposohh, Injectable, quadrivalent (PF)Ovi Mcdaniel MD Work Phone: [facility] HospitalZgjryq21-33-8386yqoezhumo, injectable, quadrivalent, preservative freeKristina [facility]11-15-2021Influenza, Injectable, quadrivalent (PF)Ovi Mcdaniel MD Work Phone: [facility] HospitalCqkrfn13-31-8439rdphpdhdh, injectable, quadrivalent, preservative freeKristina [facility])09-16-2020Influenza, High-dose, QuadrivalentKristina [facility]10-08-2019Influenza High Dose Preservative Free Tabatha Mcdaniel MD Work Phone: [facility] HospitalWhqudj55-93-5501dvrulhvzy, high dose seasonal, preservative-freePaulettea SybilTrumbull Regional Medical Center10-08-2019 Pneumococcal Emili Mcdaniel MD Work Phone: [facility] HospitalDkeupm68-77-3164mnppqpkzwwtx polysaccharide vaccine, 23 valentDolores Anderson [facility] 05-44-3447Iqbrhontv, Injectable, quadrivalent (PF)Ovi Mcdaniel MD Work Phone: [facility] HospitalLlflbd01-44-8949xaxqnbmum, injectable, quadrivalent, preservative freeEvensmook DevineTrumbull Regional Medical Center01-17-2018Influenza (IM) Preservative Rob Mcdaniel MD Work Phone: [facility] HospitalAypamh44-36-2935dcfudqzbm, seasonal, injectable, preservative freeDolores DevineTrumbull Regional Medical Center01-17-2018 Pneumococcal Conjugate 13-Neo Mcdaniel MD Work Phone: [facility] HospitalGhtspq11-85-4674chyvjyndvlhh conjugate vaccine, 13 valentDolores Anderson [facility]10-16-2013 Pneumococcal PolysaccharideOvi Mcdaniel MD Work Phone: [facility] HospitalKhdtnx62-97-8653oaaafwchiesl polysaccharide vaccine, 23 valentPaulettesarah Justin [facility] 12-46-8152EatytvAntoinette Mcdaniel MD Work Phone: [facility]07-26-2013zoster vaccine, live Dolores Justin [facility]07-26-2013zoster vaccine, unspecified formulationEvenscameronsarah Justin [facility]10-15-2012influenza virus vaccine, whole virusPaulettesarah SybilTrumbull Regional Medical Center10-15-2012Influenza Chris Mcdaniel MD Work Phone: [facility] HospitalTegjjj28-99-1089Lrchefocpahm PolysaccharideOvi Mcdaniel MD Work Phone: [facility] HospitalGtxbey11-30-1835mbbccioyvpmn polysaccharide vaccine, 23 valentDolores Anderson [facility] 66-61-4555Uvetrjkarina Wolffd MD Work Phone: [facility]10-10-2012zoster vaccine, live Dolores SybilTrumbull Regional Medical Center10-31-2011influenza virus vaccine, whole virusPaulettea Justin [facility]10-31-2011Influenza Whole Ovi Mcdaniel MD Work Phone: [facility] HospitalKzgsyf91-88-6908zxegbfzdd virus vaccine, whole virusEvensmook SybilTrumbull Regional Medical Center11-08-2010Influenza Chris Mcdaniel MD Work Phone: [facility] HospitalSfsmqo49-04-6443dewxvsril virus vaccine, whole virusDolores Anderson [facility]10-19-2009Influemikki Mcdaniel MD Work Phone: [facility] Payers DatePayer CategoryPayerPolicy [id number]-[id number] [id number]'s Comp, Other (unspecified) WORKERS COMPENSATION [id number] Private Health [id number] Commercial IndemnityMEDICAL MUTUAL [id number] 2019Unknown2017Medicare [id number] [id number] 1960 [id number] 2.16840.1.578904.3.57[id number] 2.840.1.317504.3.57[id number] 2.840.1.202697.3.57[id number] 2.16840.1.209049.3.57[id number] 2.16840.1.525313.3.57[id number] 2.16840.1.675643.3.57[id number] 2.16840.1.408839.3.579.[id number] 2.16840.1.633086.3.57[id number] 2.16840.1.856659.3.57[id number] 2.16.840.1.406956.3.579.2.04067-45-9742Mcchbxp7358517 2.16.840.1.854576.3.57[id number] 2.16.840.1.241331.3.579.[id number] 2.16.840.1.134855.3.579.2.546386-19-5307Hgfaobz06841495 2.16.840.1.842223.3.579.2.0[id number] 2.16.840.1.709317.3.579.2.874654-55-9540Jaevrsv15213865 2.16.840.1.759645.3.579.2.920129-93-8219Acbkvkm53004545 2.16.840.1.105915.3.579.2.[id number] 2.16.840.1.539585.3.57[id number] 2.16.840.1.755156.3.579.2.[id number] 2.16.840.1.968428.3.579.2.4[id number] 2.16.840.1.005057.3.57[id number] 2.16.840.1.483059.3.57[id number] 2.16.840.1.763924.3.579.[id number] 2.16.840.1.559517.3.579.2.9[id number] 2.840.1.965262.3.579.2.851668-13-3486Ireyein803007064 2..840.1.890511.3.579.2.194882-55-1506Fvzliuc007856426 2.840.1.856855.3.57[id number] 2.840.1.089383.3.579.2.810634-66-4213Ovsamyo613260118 2.0.1.841143.3.579.2.863704-58-1681Agirusw49468630 2.0.1.958893.3.579.2.84[id number] 2.0.1.032942.3.579.2.61[id number] 2.0.1.709192.3.579.2.4[id number] 2.840.1.650815.3.57[id number] 2.0.1.567784.3.57[id number] 2.0.1.646944.3.579.2.1286UnknownMutual of [id number] s0i9uy7p-6l81-1t74-399e-[id number] 2.840.1.165496.3.579.2.531Worker's [id number] Social History DateTypeDetailFacilityUnknown if ever smokedFayette County Memorial Hospital [facility] Work Phone: Start: 11-02-2017 End: 94-88-2554Pbk Assigned At [facility] Centertart: 29-91-5544Vyq Assigned At [facility] Hospitaltart: 11-07-2018 End: 80-30-7595Irwqtxl smoking status NHISNever smoked tobacco (finding) [facility] Hospitaltart: 02-08-2017 End: 06-90-0582Lldmhpk smoking status NHISEx-smokerMartins Ferry Hospital End: 58-88-6675Ocvzdlb of tobacco useCurrent smokerMartins Ferry Hospital End: 40-06-7983Ppzsjjy of tobacco useCigarette SmokerMartins Ferry Hospital Start: 02-08-2017 End: 62-60-9418Kvjmqab use and exposureSmokeless tobacco non-userSelect Specialty Hospital - Greensborotart: 05-01-2017 End: 38-81-8335Yswvlvfbr beverage intakeCurrent drinker of alcohol (finding) [facility] Greens[facility]otart: 11-02-2017 End: 31-43-1452Digytev of Social functionTriHealth Bethesda Butler Hospitaltart: 57-48-1034Qho assigned at novant healthNot on fileSelect Specialty Hospital - Greensborotart: 48-60-2075Kngfp Depression Screening Clngdrmtmf6Tatgeeash ClinicStart: 58-37-0746Rsikkm identity Identifies as male gender (finding)[facility] Hospitaltart: 41-38-2830Jqzwqe orientationHeterosexual (finding)[facility] Hospitaltart: 51-14-5517Wilfjyx CommentsociallyPWayne HealthCare Main Campus SystemStart: 06-09-2015 End: 61-88-2301RuiZtkv (finding)[facility] HospitalHistory of tobacco use Passive smokerTriHealth Bethesda Butler Hospitaltart: 73-41-5228Ubkmdul Agcmdbr01 drinks a week per pt 03/18/2025leveland ClinicHas the electric, gas, oil, or water company threatened to shut off services in your home in past 12MoNoClKettering Health Dayton (I/We) worried whether (my/our) food would run out before (I/we) got money to buy more.Never trueTriHealth Bethesda Butler Hospitaltart: 47-72-3401Tpndxaxkq beverage intakeEx- drinker (finding)[facility] SystemHow often do you have a drink containing alcohol?NeverProLicking Memorial Hospital System Medical Equipment Procedure CodeEquipment CodeEquipment Original TextEquipment IdentifierDates Patch Dura 1x1in Drmtrx-[place] + Clgn Rgnrt Membr Strl Rpl [id number] - [id number]: 70-13-7279O-Factor Peptide Enhanced Bone Graft Putty 5cc - [id number]_pqhQrdyx: 13-66-0654Ljxdm Justin 3 Titanium Set Sivan Spine - [id number]_qzlOmrnd: 71-34-5286Mkj Justin 3 6mm Titanium 40mm Spinal Radiolucent - [id number]_druHcqew: 20-00-8421Sxdtx Justin 3 Smith 6.5mm 45mm Bone Polyaxial Reduction Nonsterile [id number]_lcvRpufd: 03-30-2025 Goals DatePatient GoalDesired Activity/StatePersonal health goalComment on above: Evaluation of progress towards goal: under assessment, has NGPersonal health goalComment on above: Evaluation of progress towards goal: Patient will discharge home with , self care. - Jace Barragan RN 12/26/23 11:57 AM Functional Status JgheSuivgpyeeqOsmcovZcerswsf76-18-4219Mbmxm score [AUDIT-C]0 08/18/2025 8:29 AM EDT Jodi Glynn [facility]05-09-2017Are you deaf, or do you have serious difficulty hearingNo 03/12/2017 5:46 PM Dolores Viera RN [facility] SystemDeqjmk12-24-3403Vbk you blind, or do you have serious difficulty seeing, even when wearing glassesNo 03/12/2017 5:46 PM Dolores Viera RN NoCRegency Hospital CompanyThjgin72-68-0529Cj you have serious difficulty walking or climbing stairsNo 03/12/2017 5:46 PM Dolores Viera RN [facility]05-09-2017 Do you have difficulty dressing or bathingNo 03/12/2017 5:46 PM Dolores Viera RN [facility] SystemIhqfcf06-24-3254Iflgytk of a physical, mental, or emotional condition, do you have difficulty doing errands alone such as visiting a physician's office or shoppingNo 03/12/2017 5:46 PM Dolroes Viera RN [facility] Mental Status ZzmzCrbimosrkfWoahxqGohttbni89-50-9361Nllrsbc of a physical, mental, or emotional condition, do you have serious difficulty concentrating, remembering, or making decisionsNo 03/12/2017 5:46 PM Dolores Viera RN [facility] Clinical Notes 06-14-2022 to 08-18-2025 Note Date & [id number] History of Present illness Narrative* Ovi Mcdaniel MD - 08/18/2025 8:30 AM EDT Images from the original note were not included. [id number] [facility] [id number] Subjective: Regan Green is a 75 y.o. male who presents for a Medicare Annual Wellness exam. The following portions of the patient's history were reviewed and updated as appropriate: Health Risk Assessment, allergies, past medical history, past surgical history, social history, family history, and immunization history Accompanied by: self History Provided By: self Language and Other Communication Barriers: Primary Language Spoken: Cymro Highest Level of Education Completed: high school [...] Do you have a durable power of employment law attorney?: Yes Fall Risk Fall Risk Assessment [...] do you consume in a week?: (!) 10 or more Do you exercise for 30 or more minutes on average at least 3 days a week?: Often Do you have any tooth, denture, or oral problems?: No Do you snore or has anyone told you that you snore?: No Do you try to eat a balanced diet?: Yes Do you experience leakage of urine, also known as urinary incontinence?: (!) Sometimes Do you have difficulty bathing?: No Do you have difficulty dressing?: No Do you have difficulty grooming?: No Do you have difficulty eating?: No Do you have difficulty getting out of a chair?: No Do you have difficulty walking?: No Do you have difficulty using the toilet?: No Do you have difficulty doing laundry?: No Do you have difficulty with housekeeping?: No Do you have difficulty preparing a meal?: No Do you have difficulty shopping?: No Do you have difficulty using transportation?: No Do you have difficulty paying bills?: No Do you have difficulty managing finances?: No Personal Health During the past 4 weeks, how would you rate your overall health?: Good Do you understand how to take all of your medications?: Yes How confident are you that you can control and manage most of your health problems?: Very confident In the past 12 months, how many times have you been hospitalized?: (!) One Safety Assessment Do you have throw rugs on the floor?: (!) Yes Do you feel safe at your home?: Yes Do you feel unsteady when walking?: No Are you having difficulty with driving?: No Do you have trouble seeing?: No Do you use a bath bar/seat?: No Do you use a raised toilet seat?: No Do you use a cane?: No Do you use a walker?: No Do you use a wheelchair?: No Vitals: Vitals: 08/18/25 0823 BP: 118/72 Pulse: 87 Resp: 18 SpO2: 94% Body mass index is 31.11 kg/m . History: Hospitalizations during the past 12 months: no Patient Active Problem List Diagnosis Date Noted Gross hematuria 04/14/2025 Visual impairment 12/20/2023 Radiculopathy, lumbar region 12/17/2023 Neurogenic claudication 12/17/2023 Localized edema 02/08/2020 Varicose veins of right lower extremity with pain 02/08/2020 [place] [place]/07[place]2017 [place] of [place] [place] 11/20/2016 Past Medical History: Diagnosis Date [place] of [place] [place] 2017 prostatectomy Diverticulitis Diverticulosis Fecal impaction [place] [place] Inflammation of sacroiliac joint 04/20/1996 Knee pain Low back pain Lumbar disc disorder Neurogenic claudication 12/17/2023 Osteoarthritis SBO (small bowel obstruction) [place] [place] 10/04/2023 Shingles UTI (urinary tract infection) 05/08/2017 Varicose veins of right lower extremity with pain 02/08/2020 Visual impairment 12/20/2023 Past Surgical History: Procedure Laterality Date ABDOMINAL ADHESION SURGERY BACK SURGERY 03/30/2025 Fused L4-L5 COLONOSCOPY COLONOSCOPY N/A 03/25/2023 Performed by Johnathan Campbell DO at [facility] CYSTOSCOPY N/A 07/06/2025 Performed by Minh Heller MD at [facility] HERNIA REPAIR Left inguinal HIP SURGERY Left JOINT REPLACEMENT LAMINECTOMY LUMBAR MULTI LEVEL / L2-L5 N/A 12/25/2023 Performed by Shaista Nolen MD at [place] [facility] PROSTATE BIOPSY PROSTATECTOMY REVISION TOTAL KNEE ARTHROPLASTY Right 2013 due to swelling TOTAL KNEE ARTHROPLASTY Right 2013 Family History Adopted: Yes Problem Relation Age of Onset Anesthesia problems Neg Hx Social History Tobacco Use Smoking status: Former Types: Cigarettes Smokeless tobacco: Never Substance Use Topics Alcohol use: Not Currently Comment: socially Allergies: Allergies Allergen Reactions Sulfa (Sulfonamide Antibiotics) Rash Current Outpatient Medications Medication Sig Dispense Refill calcium carbonate-vitamin D3 (OSCAL 500 + D) 500 mg(1,250mg) -200 units per tablet Take 1 tablet bymouth in the morning and 1 tablet in the evening. Take with meals. cyclobenzaprine (FLEXERIL) 10 mg tablet Take 1 tablet (10 mg total) by mouth 3 (three) times a day as needed for muscle spasms. This is an 10 day supply 30 tablet 2 gabapentin (NEURONTIN) 300 mg capsule Take 1 capsule (300 mg total) by mouth 3 (three) times a day. glucosamine/chondr piña A sod (OSTEO BI-FLEX ORAL) Take 1 tablet by mouth in the morning. mv-min/folic/K1/lycopen/lutein (CENTRUM SILVER MEN ORAL) Take 1 tablet by mouth in the morning. oxyCODONE-acetaminophen (PERCOCET) 5-325 mg per tablet Take 1 tablet by mouth in the evening. 1 to 2 tablets daily. predniSONE (DELTASONE) 5 mg tablet Take 1 tablet (5 mg total) by mouth in the morning. diclofenac (VOLTAREN) 75 mg EC tablet (Patient not taking: Reported on 08/18/2025) No current facility-administered medications for this visit. Immunization History Administered Date(s) Administered COVID-19, mRNA, LNP-S, PF, 100mcg/0.5mL Dose 12/21/2020, 01/18/2021, 09/18/2021 Covid-19, Mrna, Lnp-s, Bivalent, Pf, 30mcg/0.3 ml 08/20/2022 Influenza (IM) Preservative Free 11/20/2017 Influenza High Dose Preservative Free IM 08/11/2019, 07/09/2024 Influenza Whole 08/22/2009, 09/11/2010, 09/03/2011, 08/18/2012 Influenza, High-dose, Quadrivalent 07/20/2020, 08/20/2022, 08/05/2023 Influenza, Injectable, quadrivalent (PF) 07/31/2018, 09/18/2021, 04/26/2022 Pneumococcal Conjugate 13-Valent 11/20/2017 Pneumococcal Conjugate 20-valent 07/09/2024 Pneumococcal Polysaccharide 08/13/2012, 08/19/2013, 08/11/2019 RSV, bivalent, protein subunit RSVpreF, diluent reconstituted, 0.5 mL, PF 08/05/2023 Zoster Live 08/13/2012, 05/29/2013 Medication Adherence: Original 4-item [place] Scale Do you ever forget to take your medicine? yes Are you careless at times about taking your medicine? yes When you feel better, do you sometimes stop taking your medicine? yes Sometimes if you feel worse when you take your medicine, do you stop taking it? yes Score: 4 Scoring: high-low; yes=0 no=1. Range 0-4. By reversing the wording of four questions about the way patients might experience drug omissions, the sum of yes answers would provide a composite measureof non-adherence. Higher scores indicate higher adherence. Cognitive Screening: Clock Drawing Test: Normal Mini-Co/3 Patient Concerns for Cognitive Function: no Family [...] Review of Systems: Review of Systems Constitutional: Negative for chills and fever. HENT: Negative for ear pain and sore throat. Eyes: Negative for pain and visual disturbance. Respiratory: Negative for cough and shortness of breath. Cardiovascular: Negative for chest pain and palpitations. Gastrointestinal: Negative for abdominal pain and vomiting. Genitourinary: Negative for dysuria and hematuria. Musculoskeletal: Negative for arthralgias and back pain. R thumb pain and hand swelling Skin: Negative for color change and rash. Neurological: Negative for seizures and syncope. All other systems reviewed and are negative. Objective: Physical Exam Constitutional: General: He is not [...] Cervical back: Normal range of motion. Comments: Mild swelling on the R hand dorsum Exquisite tenderness and limited range of movement of the 1st CMC joint Minimal redness but there is increased warmth Lymphadenopathy: Cervical: No cervical adenopathy. Skin: General: Skin is warm and dry. Findings: No rash. Neurological: Mental Status: He is alert. Cranial Nerves: No cranial nerve deficit. Coordination: Coordination normal. Psychiatric: Behavior: Behavior normal. Lab on 08/09/2025 Component Date Value Ref Range Status URIC ACID 08/09/2025 5.3 2.6 - 7.2 mg/dL Final WBC 08/09/2025 12.3 (H) 4 - 11 x10E9/L Final RBC Count 08/09/2025 5.10 4.1 - 5.7 X10E12/L Final Hemoglobin 08/09/2025 15.4 13 - 17 g/dL Final Hematocrit 08/09/2025 46.6 39 - 50 % Final MCV 08/09/2025 91 80 - 100 fL Final MCH 08/09/2025 30.2 27 - 34 pg Final MCHC 08/09/2025 33.1 32 - 36 g/dL Final RDW 08/09/2025 14.4 11.5 - 15 % Final Platelet Count 08/09/2025 284 150 - 450 X10E9/L Final MPV 08/09/2025 7.8 7 - 12 fL Final Neutrophils % 08/09/2025 76.1 % Final Lymphocytes % 08/09/2025 11.9 % Final Monocytes % 08/09/2025 8.7 % Final Eosinophils % 08/09/2025 2.4 % Final Basophils % 08/09/2025 0.9 % Final Neutrophils Absolute (A) 08/09/2025 9.4 (H) 1.5 - 6.6 10*3/uL Final Lymphocytes Absolute 08/09/2025 1.5 1.0 - 3.5 10*3/uL Final Monocytes Absolute 08/09/2025 1.1 (H) 0.0 - 0.9 10*3/uL Final Eosinophils Absolute 08/09/2025 0.3 0.0 - 0.4 10*3/uL Final Basophils Absolute 08/09/2025 0.1 0.0 - 0.2 10*3/uL Final Differential Type 08/09/2025 AUTOMATED DIFFERENTIAL Final ESR, Erythrocyte Sedimentation Rate 08/09/2025 23 (H) 0 - 20 mm/h Final C REACTIVE PROTEIN 08/09/2025 2.7 (H) <=0.7 mg/dL Final Advanced Directives: Living Will: Yes DPA for Health Care: Yes Discussion and Summary: Risk findings: none Personalized Prevention Plan Services: Specialty Evaluation Advised:N/A Preventative Programs Recommended: N/A Prevention Counseling and Education Materials:N/A Diseases: N/A Immunizations: N/A Nutrition: N/A Activity/Exercise/Safety/Misc: N/A The above recommendations were discussed with the patient. Medicare Available Services: Copy to patient and copy in patient's medical record. Assessment/Plan: Regan Green has been seen for a well visit today. Preventative recommendations were reviewed. Any chronic conditions that have been addressed include those listed below. Kenneth was seen today for annual exam. Diagnoses and all orders for this visit: Encounter for Medicare annual wellness exam Pure hypercholesterolemia - Lipid profile; Future Lumbar radiculopathy, chronic - Comprehensive metabolic panel; Future Plan: -yearly labs -covid vaccine recommended. Flu vaccine done this uear -Patient noted to have elevated BMI and the following intervention(s) were applied: encouragement to exercise. -follow up with ortho for hand cellulitis/teno-synovisitis Follow Up: 6 months documented in this encounterACMC Healthcare SystemCamera Service & Integration [id number] Miscellaneous Notes* Telephone Encounter - Sweta Woods CMA - 08/10/2025 11:01 AM EDT Faxed PCP note from 08/09/25, labs and xray to Dr Barkley per patient request. [facility] Telephone encounter Note* Telephone Encounter - Sweta Woods CMA - 08/10/2025 11:01 AM EDT Faxed PCP note from 08/09/25, labs and xray to Dr Barkley per patient request. [facility] NoteXR HAND LT MIN 3 VWS Procedure: Left hand radiographs performed Number of views:3 History:Hand pain Comparison:None Findings: There is no fracture, dislocation, or destructive lesion. There is diffuse osteopenia. There is particular narrowing at the first carpometacarpal joint. There is also narrowing at the PIP and DIP joints. The soft tissues are unremarkable. Impression: No acute findings. Finalized by Chidi Hua MD on 08/10/2025 9:15 [facility] 08-10-2025 Miscellaneous Notes* Telephone Encounter - Iqra Plata CMA - 08/10/2025 8:23 AM EDT ----- Message from JOSEMANUEL Stauffer sent at 08/10/2025 8:25 AM EDT ----- Looks like an infection is going on, wbc is high along with inflammatory markers, his uric acid is normal, I do not have x-ray back yet. I sent clindamycin 300mg tid for ten days. I want him to call Dr Gomez as well since he recently had injection in his thumb and he has a lot of pain and swellingin that area. Please fax labs to her office as well. ----- Message ----- From: Val, Background User Sent: 08/09/2025 10:47 PM EDT To: JOSEMANUEL Stauffer * Telephone Encounter - Iqra Plata CMA - 08/10/2025 8:23 AM EDT Patient informed of results and instructions. He will call Dr. Gomez office. * Telephone Encounter - Iqra Plata CMA - 08/10/2025 8:23 AM EDT ----- Message from JOSEMANUEL Stauffer sent at 08/10/2025 10:05 AM EDT ----- X-ray was negative ----- Message ----- From: Interface - Rad Results/Orders In 1 Sent: 08/10/2025 9:16 AM EDT To: JOSEMANUEL Stauffer * Telephone Encounter - Iqra Plata CMA - 08/10/2025 8:23 AM EDT Patient informed of negative x-ray. He voiced understanding. documented in this encounter[facility]10-[facility] Telephone encounter Note* Telephone Encounter - Iqra Plata CMA - 08/10/2025 8:23 AM EDT ----- Message from JOSEMANUEL Stauffer sent at 08/10/2025 8:25 AM EDT ----- Looks like an infection is going on, wbc is high along with inflammatory markers, his uric acid is normal, I do not have x-ray back yet. I sent clindamycin 300mg tid for ten days. I want him to call Dr Gomez as well since he recently had injection in his thumb and he has a lot of pain and swellingin that area. Please fax labs to her office as well. ----- Message ----- From: Lab, Background User Sent: 08/09/2025 10:47 PM EDT To: JOSEMANUEL Stauffer [facility] Telephone encounter Note* Telephone Encounter - Iqra Plata CMA - 08/10/2025 8:23 AM EDT Patient informed of results and instructions. He will call Dr. Gomez office. [facility] Telephone encounter Note* Telephone Encounter - Iqra Plata CMA - 08/10/2025 8:23 AM EDT ----- Message from JOSEMANUEL Stauffer sent at 08/10/2025 10:05 AM EDT ----- X-ray was negative ----- Message ----- From: Interface - Rad Results/Orders In 1 Sent: 08/10/2025 9:16 AM EDT To: JOSEMANUEL Stauffer [facility] Telephone encounter Note* Telephone Encounter - Iqra Plata CMA - 08/10/2025 8:23 AM EDT Patient informed of negative x-ray. He voiced understanding. [facility]10-[facility] History of Present illness Narrative* JOSEMANUEL Stauffer - 08/09/2025 2:30 PM EDT Images from the original note were not included. [id number] [facility] [id number] SUBJECTIVE: Patient ID: Regan Green is a 75 y.o. male. Patient presents to the office with complaints of left hand pain. He has swelling to left thumb andpain with ROM. He did have an injection two weeks ago and did have some swelling after which he hasnot had in the past but she feels like his arthritis has gotten worse. He was working in the gardenand was afraid he got bit by something but there is no wound from bite. He has redness and warmth to hand. It is painful at night and worse. Denies any fever. Does seen hand orthopedic. No history ofgout Hand Pain Pertinent negatives include no chest pain or numbness. The following portions of the patient's history were reviewed and updated as appropriate: allergies, current medications, past family history, past medical history, past social history, past surgicalhistory and problem list. REVIEW OF SYSTEMS: Review of Systems Constitutional: Negative for fatigue, fever and unexpected weight change. HENT: Negative for congestion, ear pain, sinus pressure, sinus pain and sore throat. Eyes: Negative for photophobia, pain, discharge and visual disturbance. Respiratory: Negative for cough and shortness of breath. Cardiovascular: Negative for chest pain, palpitations and leg swelling. Gastrointestinal: Negative for abdominal pain, diarrhea, nausea and vomiting. Endocrine: Negative for polydipsia, polyphagia and polyuria. Genitourinary: Negative for difficulty urinating, frequency, hematuria and urgency. Musculoskeletal: Negative for arthralgias, gait problem, joint swelling and neck pain. Skin: Negative for pallor and rash. Redness and warmth to left hand/left thumb Neurological: Negative for dizziness, weakness, light-headedness and numbness. Psychiatric/Behavioral: Negative for sleep disturbance. The patient is not nervous/anxious. PHYSICAL EXAMINATION: Vitals: 08/09/25 1431 BP: 142/82 BP Site: Left Arm BP Postition: Sitting BP CUFF SIZE: L (13-17 inches) Pulse: 90 Resp: 16 Temp: 36.7 C (98 F) TempSrc: Tympanic SpO2: 98% Weight: 99.1 kg (218 lb 6.4 oz) Physical Exam Constitutional: Appearance: He is well-developed. HENT: Head: Normocephalic and atraumatic. Right Ear: External ear normal. Left Ear: External ear normal. Eyes: Conjunctiva/sclera: Conjunctivae normal. Pupils: Pupils are equal, round, and reactive to light. Cardiovascular: Rate and Rhythm: Normal rate and regular rhythm. Heart sounds: Normal heart sounds. Pulmonary: Effort: Pulmonary effort is normal. Breath sounds: Normal breath sounds. Musculoskeletal: Left hand: Swelling present. Decreased range of motion. Cervical back: Normal range of motion. Comments: Swelling to left thumb and decreased ROM and pain. Has redness and warmth to hand. Skin: General: Skin is warm and dry. Neurological: Mental Status: He is alert and oriented to person, place, and time. Psychiatric: Mood and Affect: Mood normal. ASSESSMENT/PLAN: Kenneth was seen today for hand pain. Diagnoses and all orders for this visit: Left hand pain - X-ray hand left minimum 3 views; Future - Uric acid; Future - CBC auto differential; Future - Erythrocyte Sedimentation Rate (ESR); Future - C-reactive protein; Future Swelling of digit of left hand - X-ray hand left minimum 3 views; Future - Uric acid; Future - CBC auto differential; Future - Erythrocyte Sedimentation Rate (ESR); Future - C-reactive protein; Future Follow-up: X-ray left hand Cbc,crp,sed rate, uric acid will call with results Concern for infection, gout, Patient noted to have elevated BMI and the following intervention(s) were applied: encouragement toexercise. JOSEMANUEL Stauffer 08/09/25 1505 documented in this encounterMart[facility]09-24-2025 Evaluation note* Diagnosis Onset Date Resolution Status Admit Date Left hand pain acuteSeptember 2024 8:34amUnilateral primary osteoarthritis of first carpometacarpal joint, left handacuteSeptember 2024 8:34am [facility] Work Phone: 1(686) 889-935609-24-2025 Evaluation note* Diagnosis Onset Date Resolution Status Admit Date Left hand pain acuteSeptember 2024 8:34amUnilateral primary osteoarthritis of first carpometacarpal joint, left handacuteSeptember 2024 8:34amInflammation of hand jointacuteOctober 2024 3:18pmLeft hand painacuteOctober 2024 3:18pmUnilateral primary osteoarthritis of first carpometacarpal joint, left handacuteOctober 2024 3:18pm [facility] Work Phone: 1(774) 857-875609-03-2025 History of Present illness Narrative* Jessica Tay MD - 07/07/2025 2:05 PM EDT Follow up Diagnosis: Basal Cell Carcinoma Location: mid upper back Last visit: 6 weeks ago Symptoms: red Status: healed Procedure performed: Shave biopsy Date of procedure: 06/02/2025 Here today for ED&C. All pertinent medical history, medications, and allergies were reviewed. General Exam: alert, oriented to person, place, and time, normal affect, well appearing Unaccompanied A focused exam completed based on patient reported problems, see below: Skin Exam 1. BASAL CELL CARCINOMA (BCC) OF SKIN OF OTHER PART OF [place] Mid Upper Back [place] macule at biopsy site Destr of lesion Complexity: simple Destruction method: electrodesiccation and curettage Informed consent: discussed and consent obtained Informed consent comment: The risks of the procedure were discussed, including, but not limited to risks of scarring, darker or sludge filtration operator pigmentary changes, recurrence, infection, and incomplete removal Timeout: patient name, date of , surgical site, and procedure verified Timeout comment: Patient and provider identified site. Site was marked. Photo was taken and shown to patient, patient verified this is the correct site. Procedure prep: Patient was prepped and draped in usual sterile fashion Prep type: Chlorhexidine Anesthesia: the lesion was anesthetized in a standard fashion Anesthetic: 1% lidocaine w/ epinephrine 1-100,000 buffered w/ 8.4% NaHCO3 Curettage performed in three different directions: Yes Curettage cycles: 3 Lesion length (cm): 1.1 Lesion width (cm): 0.7 Margin per side (cm): 0 Final wound size (cm): 1.1 Hemostasis achieved with: aluminum chloride Outcome: patient tolerated procedure well with no complications Post-procedure details: wound care instructions given Post-procedure details comment: Post-procedure instructions were given verbally and in writing. Theoffice will be contacted if the lesion fails to resolve despite treatment, or if a side effect develops such as abnormal crusting, scabbing, reddness, discharge, or tenderness. Additional details: Amount of lidocaine used: 2 cc Previous accession number: [id number] Emphasized to return to clinic for any signs of recurrence prior to next visit. Next Visit: 6 month skin check documented in this encounterPerry County [facility] [id number] Instructions* Patient Instructions* Antonia Leija PA-C - 06/29/2025 9:24 AM EDT - Continue taking your gabapentin and Flexeril as prescribed; refills remain available through yourpain management physician. - Keep doing the spinal [...] to a therapist near your home for focusedwork on your lumbar spine and sacroiliac (SI) joint. - Monitor your back and right-sided SI joint pain over the next 4-6 weeks. If the pain worsens or does not improve, let us know so we can arrange an in-person exam and obtain x-rays. - Your next in-person follow-up is scheduled for August 03 at 11:00 AM at [facility] (off [address]). If you re doing well before then, you can switch this visit to virtual or move it to your 6- month post-op appointment--just contact us. - If you have questions or issues with your billing statement, call the phone number listed on the bill first. If the issue continues, send a MyChart message or call our office for help. - For any other concerns or questions, feel free to send a MyChart message or call the clinic. documented in this encounterAcmc Healthcare System08-26-2025 History of Present illness Narrative* Antonia Leija, GERALD - 06/29/2025 8:20 AM EDT Images from the original note were not included. SPINE SURGERY FOLLOW UP This is a virtual visit using [employer] Zoom Video Visit. It required patient- provider interaction for the medical decision making as documented below. I have communicated my name and active licensure. The patient's identity and physical location wereverified at the time of this visit. Either the patient or their legal escrow representative has been informed of the risks and benefits of -- and alternatives to -- treatment through a remote evaluation andconsents to proceed with the evaluation remotely. SERVICE [...] 75-year-old male presenting for follow-up three months post- surgery, reporting newonset of right-sided back pain. Kenneth reports new onset of right-sided back pain near the waist, around the sacroiliac (SI) joint, which began approximately 4-6 weeks ago. The pain is described as very, very painful in the morning and occasionally radiates into the hip. The pain improves as the dayprogresses. He rates his back pain as 5/10. He is currently taking gabapentin and Flexeril, which were recently refilled by his pain management physician. Kenneth is performing prescribed exercises, which he finds helpful. However, he notes that certain exercises, such as raising both legs simultaneously while lying on his back, place a burden on the smallof his back. He inquires about modifying this exercise to raise one leg at a time. Kenneth recently took his grandchildren to the [facility] and found that prolonged standing was challenging, [...] Description: Radiating;Sharp Duration Units: Days Intervention/Comfort measure: Medication;Relaxation;Cold;Exercise;Pillow support Patient Entered Questionnaires 01/03/2025 03/17/2025 04/04/2025 [...] may convert to virtual or defer to 6- month post-op if symptoms resolve. Location: [address] Address to use for GPS: [address] [facility] take the F Elevator (located on your left hand side, when you come in the building) Neurosurgery On-call (after hours or weekend) [phone] or [phone], ask for neurosurgery on-call I spent a total of 20 minutes on the date of the service which included preparing to see the patient, [id number] patient care, completing clinical documentation, obtaining and/or reviewing separately obtained history, counseling and educating the patient/family/caregiver, ordering medications, imelda ts, or procedures, and care coordination (not separately reported). Antonia Leija PA-C [phone] documented in this encounterAcmc Healthcare System08-26-2025 NoteHNO ID: [id number] Author: ANTONIA LEIJA PA-C Service: ? Author Type: Physician Commercial Appraiser Type: Progress Notes Filed: 06/29/2025 09:26 Note Text: SPINE SURGERY FOLLOW UP This is a virtual visit using [employer] Video Visit. It required patient-provider interaction for the medical decision making as documented below. I have communicated my name and active licensure. The patient's identity and physical location were verified at the time of this visit. Either the patient or their legal escrow representative has been informed of the risks [...] Description: Radiating;Sharp Duration Units: Days Intervention/Comfort measure: Medication;Relaxation;Cold;Exercise;Pillow support Patient Entered Questionnaires 01/03/2025 03/17/2025 04/04/2025 Spine Questions Pain Location: Lower back Lower back Lower back Symptoms from neck/cervical spine: Yes No No Employment Status: Retired 01/03/2025 Neck Questionnaires Benzel Modified JV Score 14 (Moderate Myelopathy Symptoms) PROMIS Score [...] 1. S/P lumbar fusion (Z98.1) 2. Acute post (more content not included)...[facility] [id number] History of Present illness Narrative* Jessica Tay MD - 06/02/2025 8:45 AM EDT Images from the original note were not included. Skin Check Location: Patient requests a skin examination from the waist up Dermatologic history: history of Actinic Keratosis, history of atypical mole(s) Last visit: 1 year ago Established patient Lesions: Location: Right cheek/bilateral anabaptist Duration: few months Quality: denies pain, denies [...] ACTINIC KERATOSIS (5) Left Buccal Cheek, Left Hoahaoism, Mid Parietal Scalp, Right Malar Cheek, Right Hoahaoism Erythematous scaly papules Patient was counseled regarding these sun-induced growths that can develop into squamous cell carcinoma if left untreated. Discussed treatment options, including cryotherapy and topical preparations.It was emphasized that any treated lesions that [...] should be re-evaluated in the office. Handout givento patient Cryotherapy performed today; see procedure note Diagnosis: Actinic keratosis Indication: Precancerous Location: see skin exam Consent: Verbal consent was obtained and risks were discussed, including, but not limited to risks of scarring, darker or sludge filtration operator pigmentary changes, recurrence, incomplete removal and infection. [...] skin lesion - Left Buccal Cheek, Left Hoahaoism, Mid Parietal Scalp, Right Malar Cheek, Right Hoahaoism Related Medications fluorouracil (Efudex) 5 % cream Apply to directed areas on the scalp and temples twice a day x 14 days. Dispense 30 day supply but only use for 14 days. 2. LENTIGINES (2) Generalized, Head - Anterior (Face) Scattered negro macules in sun-exposed areas. The patient was informed that lentigines are benign pigmented lesions that occur on sun-exposed andsun-damaged skin. No treatment is necessary. Recommended regular [...] SOFT TISSUE, AND SKIN Mid Upper Back [place] papule Lesion biopsy Type of biopsy: tangential [...] year, pending bx results documented in this encounterPerry County Memorial [id number] Telephone encounter Note* Telephone Encounter - Carrie Martines RN - 05/14/2025 10:45 AM EDT Neuro SPINE CARE COORDINATION QUICK NOTE Returned call to patient to discuss questions. I relayed information as per Antonia Avery. I stated that ok to ride his riding mower as well as his motorcycle try in short bursts of time to see how he isfeeling. If having pain or feeling anything wait a few days and then can try again. I also stated that can go on longer car rides but as he is still healing from surgery for another 6 weeks just movea bit if ride will be longer then an hour. Patient verbalized understanding of information provided by nurse. Patient instructed to call back should symptoms change or worsen. Patient has no other questions or concerns at this time. Patient advised to follow up with office with any additional issues. Carrie Martines RN Spine Hogshead Stock Clerk [facility] Work Phone: [phone]) 670-765807-11-2025 Miscellaneous Notes* Telephone Encounter - Carrie Martines RN - 05/14/2025 10:45 AM EDT Neuro SPINE CARE COORDINATION QUICK NOTE Returned call to patient to discuss questions. I relayed information as per Antonia Avery. I stated that ok to ride his riding mower as well as his motorcycle try in short bursts of time to see how he isfeeling. If having pain or feeling anything wait a few days and then can try again. I also stated that can go on longer car rides but as he is still healing from surgery for another 6 weeks just movea bit if ride will be longer then an hour. Patient verbalized understanding of information provided by nurse. Patient instructed to call back should symptoms change or worsen. Patient has no other questions or concerns at this time. Patient advised to follow up with office with any additional issues. Carrie Martines RN Spine Hogshead Stock Clerk * Telephone Encounter - Anabela Mark - 05/12/2025 11:31 AM EDT Pt called in stated that he did just do a virtual but needed some clarification How long can car rides be When and how long can he be on a motorcycle When can he do a riding law mower, and for how long. documented in this encounterAcmc Healthcare System07-09-2025 Telephone encounter Note * Telephone Encounter - Anabela Mark - 05/12/2025 11:31 AM EDT Pt called in stated that he did just do a virtual but needed some clarification How long can car rides be When and how long can he be on a motorcycle When can he do a riding law mower, and for how long. [facility]07-09-2025 History of Present illness Narrative* Antonia Leija PA-C - 05/12/2025 10:40 AM EDT Images from the original note were not included. SPINE SURGERY FOLLOW UP This is a virtual visit using [employer] Video Visit. It required patient- provider interaction for the medical decision making as documented below. I have communicated my name and active licensure. The patient's identity and physical location wereverified at the time of this visit. Either the patient or their legal escrow representative has been informed of the risks and benefits of -- and alternatives to -- treatment through a remote evaluation andconsents to proceed with the evaluation remotely. SERVICE [...] when barefoot. These symptoms were present before surgeryand persist postoperatively. He is currently taking gabapentin [...] swimming; recommended starting with low intensity and graduallyincreasing duration and intensity. - Will mail exercise [...] VV Neurosurgery On-call (after hours or weekend) [phone] or [phone], ask for neurosurgery on-call SIGNATURE: Antonia Leija PA-C PATIENT NAME: Regan Green DATE: May 12, 2025 TIME: 10:25 AM PAGER: documented in this encounterAcmc Healthcare System07-09-2025 NoteHNO ID: [id number] Author: ANTONIA LEIJA PA-C Service: ? Author Type: Physician Commercial Appraiser Type: Progress Notes Filed: 05/12/2025 11:42 Note Text: SPINE SURGERY FOLLOW UP This is a virtual visit using [employer] Video Visit. It required patient-provider interaction for the medical decision making as documented below. I have communicated my name and active licensure. The patient's identity and physical location were verified at the time of this visit. Either the patient or their legal escrow representative has been informed of the risks [...] and back strengthening exercises. (more content not included)...[facility]07-02-2025 Telephone encounter Note* Telephone Encounter - Marcie Steinberg RN - 05/05/2025 3:46 PM EDT Date of Surgery: 03/30/2025 Physician: Johnathan Kraus Procedure: revision L4-5 decompression, L4-5 TLIF NOV: 05/12/25 w/ LIANE Called pt to review message. The patient called the office and shared that the surgery is not being paid. He said it should not be billed to a workman's comp claim, instead it should go to his insurance, [employer] [place], and his Medicare. There are other injections which he gets annually that should to go [facility], but not this surgery. He shared that he previously made sure that the procedure was approved before surgery, but he does not have any documentation for this. Email sent to [facility] to get a status update. Update shared w/ LIANE and BRETT RNCC. [facility]07-02-2025 Miscellaneous Notes* Telephone Encounter - Marcie Steinberg RN - 05/05/2025 3:46 PM EDT Date of Surgery: 03/30/2025 Physician: Johnathan Kraus Procedure: revision L4-5 decompression, L4-5 TLIF NOV: 05/12/25 w/ LIANE Called pt to review message. The patient called the office and shared that the surgery is not being paid. He said it should not be billed to a workman's comp claim, instead it should go to his insurance, Medical [employer], and his Medicare. There are other injections which he gets annually that should to go [facility], but not this surgery. He shared that he previously made sure that the procedure was approved before surgery, but he does not have any documentation for this. Email sent to [facility] to get a status update. Update shared w/ LIANE and BRETT, RNCC. * Telephone Encounter - Anabela Mark - 05/05/2025 2:16 PM EDT Pt stated that he did get the message for Antonia Leija for 05/12 at 10:40. He was stating that he is having problems getting [facility] paid, he did say there was an issue where it went over to workDN2K's comp when it should have been paid by Medicare and [employer]. He would like a call back. documented in this encounterAcmc Healthcare System07-02-2025 Telephone encounter Note * Telephone Encounter - Anabela Mark - 05/05/2025 2:16 PM EDT Pt stated that he did get the message for Antonia Jayme for 05/12 at 10:40. He was stating that he is having problems getting [facility] paid, he did say there was an issue where it went over to workmen's comp when it should have been paid by Medicare and [employer]. He would like a call back. [facility]06-17-2025 Telephone encounter Note* Telephone Encounter - Carrie Martines RN - 04/20/2025 4:56 PM EDT Neuro SPINE CARE COORDINATION QUICK NOTE Returned call to patient to discuss questions. We discussed his gabapentin and robaxin. Patient hasbeen getting gabapentin prescribed per PM and take [...] medications. Patient was worried about twisting to muchand seeing blind spot. I explained that twisting [...] any additional issues. Carrie Martines RN Spine Hogshead Stock Clerk [facility]06-17-2025 Miscellaneous Notes* Telephone Encounter - Carrie Martines RN - 04/20/2025 4:56 PM EDT Neuro SPINE CARE COORDINATION QUICK NOTE Returned call to patient to discuss questions. We discussed his gabapentin and robaxin. Patient hasbeen getting gabapentin prescribed per PM and take [...] medications. Patient was worried about twisting to muchand seeing blind spot. I explained that twisting [...] office with any additional issues. Carrie Martines legal support specialist Hogshead Stock Clerk * Telephone Encounter - Kerline Deshpande - 04/19/2025 4:44 PM EDT Call received for Johnathan Kraus MD regarding [...] not found Best number to reach caller: [phone] Best time to reach caller: Any Is it OK to leave a detailed voice message? Yes Kerline Deshpande documented in this encounterAcmc Healthcare System06-16-2025 Telephone encounter Note * Telephone Encounter - Kerline Deshpande - 04/19/2025 4:44 PM EDT Call received for Johnathan Kraus MD regarding [...] not found Best number to reach caller: [phone] Best time to reach caller: Any Is it OK to leave a detailed voice message? Yes Kerline Deshpande [facility]06-16-2025 Telephone encounter Note* Telephone Encounter - Carrie Martines RN - 04/19/2025 4:07 PM EDT Neuro SPINE CARE COORDINATION QUICK NOTE Called patient to discuss message and review with Antonia Pa-C message. I stated that patient has had follow up and abx regarding UTI. I stated to continue with urology and PCP for continued follow up. Patient did not answer but a detailed message was left on identified line. Carrie Martines RN Spine Hogshead Stock Clerk [facility]06-16-2025 Miscellaneous Notes* Telephone Encounter - Carrie Martines RN - 04/19/2025 4:07 PM EDT Neuro SPINE CARE COORDINATION QUICK NOTE Called patient to discuss message and review with Antonia Pa-C message. I stated that patient has had follow up and abx regarding UTI. I stated to continue with urology and PCP for continued follow up. Patient did not answer but a detailed message was left on identified line. Carrie Martines RN Spine Hogshead Stock Clerk * Telephone Encounter - Katarina Pascual - 04/16/2025 2:23 PM EDT Pt called and stated he had appts [...] any of the results for another month [phone] * Telephone Encounter - Carrie Martines RN - 04/08/2025 1:36 PM EDT Neuro SPINE CARE COORDINATION QUICK NOTE Returned call to patient to discuss update. See other encounter as patient had been having blood inhis urine. Patient scheduled with urology on 04/14 but saw his PCP Saturday. Patient urine was testedand came back positive for E. Coli. Patient [...] any additional issues. Carrie Martines RN Spine Hogshead Stock Clerk * Telephone Encounter - Michelle De - 04/08/2025 9:13 AM EDT Call received for Johnathan Kraus MD regarding Regan Green. Caller: self Patient Identified by Name and : Regan Green 1950 Reason for Call: Patient is calling to rafael Kraus that he was diagose with Ecoli Is there any additional information the provider should know? No Last Office Visit: 04/06/2025 Next scheduled appointment: Visit date not found Best number to reach caller: [phone] Best time to reach caller: anytime Is it OK to leave a detailed voice message? Yes Michelle Krause documented in this encounterAcmc Healthcare System06-13-2025 Telephone encounter Note * Telephone Encounter - Katarina Pascual - 04/16/2025 2:23 PM EDT Pt called and stated he had appts [...] any of the results for another month [phone] [facility]06-12-2025 Miscellaneous Notes* Telephone Encounter - Sweta Woods CMA - 04/15/2025 3:00 PM EDT Per Yany at Dr Kraus office there are 23 confirmed adri in his post op xray. * Telephone Encounter - Ovi Mcdaniel MD - 04/15/2025 3:00 PM EDT Thank you for confirming that. documented in this encounterMartins Ferry Hospital06-12-2025 Telephone encounter Note* Telephone Encounter - Sweta Woods CMA - 04/15/2025 3:00 PM EDT Per Yany at Dr Kraus office there are 23 confirmed adri in his post op xray. [facility]06-12-2025 Telephone encounter Note* Telephone Encounter - Ovi Mcdaniel MD - 04/15/2025 3:00 PM EDT Thank you for confirming that. [facility]06-12-2025 Telephone encounter Note* Telephone Encounter - Carrie Martines RN - 04/15/2025 2:53 PM EDT Neuro SPINE CARE COORDINATION QUICK NOTE I spoke with Antonia Avery regarding this. Based on post operative xray there was 23 adri noted. Called provided number to discussed. Was asked to leave a message on patient information protected line. I verified who and where I was calling from. I provided patient name and bday and confirmed 23staples. I provided office call back if has any other questions. Patient verbalized understanding of information provided by nurse. Patient instructed to call back should symptoms change or worsen. Patient has no other questions or concerns at this time. Patient advised to follow up with office with any additional issues. Carrie Martines RN Spine Hogshead Stock Clerk [facility]06-12-2025 Miscellaneous Notes* Telephone Encounter - Carrie Martines RN - 04/15/2025 2:53 PM EDT Neuro SPINE CARE COORDINATION QUICK NOTE I spoke with Antonia Avery regarding this. Based on post operative xray there was 23 adri noted. Called provided number to discussed. Was asked to leave a message on patient information protected line. I verified who and where I was calling from. I provided patient name and bday and confirmed 23staples. I provided office call back if has any other questions. Patient verbalized understanding of information provided by nurse. Patient instructed to call back should symptoms change or worsen. Patient has no other questions or concerns at this time. Patient advised to follow up with office with any additional issues. Carrie Martines RN Spine Hogshead Stock Clerk * Telephone Encounter - Dolores Fuller - 04/15/2025 10:15 AM EDT Rec'd call from Jodi at PCP's office - Dr Mcdaniel; states that their office removed patient's adri yesterday (total of 23); states that she needs confirmation of how many adri were placed;not mentioned in Op note; requesting call back w/this information; ph. [phone] Opt 1 (ask to speak w/Jodi) documented in this encounterAcmc Healthcare System06-12-2025 Telephone encounter Note * Telephone Encounter - Dolores Fuller - 04/15/2025 10:15 AM EDT Rec'd call from Jodi at PCP's office - Dr Mcdaniel; states that their office removed patient's adri yesterday (total of 23); states that she needs confirmation of how many adri were placed;not mentioned in Op note; requesting call back w/this information; ph. [phone] Opt 1 (ask to speak w/Jodi) [facility]06-11-2025 Evaluation + Plan note* Assessment & Plan Note - TERI Moore - 04/14/2025 2:42 PM EDTAssociated Problem(s): Gross hematuria After I get the [...] follow-up in 6 months to recheck [facility] [employer] [id number] Miscellaneous Notes* Assessment & Plan Note - TERI Moore - 04/14/2025 2:42 PM EDTAssociated Problem(s): Gross hematuria After I get the [...] follow-up in 6 months to recheck UA * Assessment & Plan Note - TERI Moore - 04/14/2025 2:39 PM EDT Associated Problem(s): Adenocarcinoma of prostate ([facility]) I will notify him of the results through MyChart documented in this encounterRutland Regional Medical CenterEcho36006-11-2025 Evaluation + Plan note* Assessment & Plan Note - TERI Moore - 04/14/2025 2:39 PM EDT Associated Problem(s): Adenocarcinoma of prostate ([facility]) I will notify him of the results through [employer] [facility] [id number] History of Present illness Narrative* TERI Moore - 04/14/2025 2:15 PM EDT Images from the original note were not included. [address] [place] [address] [facility] [address] Patient: Regan Green Date of : 1950 [...] for He was diagnosed with adenocarcinoma prostate [place] 7 with 2 of 12 cores positive in 2017. He underwent open radical prostatectomy with bilateral pelvic lymph node dissection at [facility] in 2017. Final path T2N0. PSA was undetectable. He had his PSA drawn today which is still pending. He uses 1 liner per day. Urinaryincontinence worse if he consumes beer. Otherwise this [...] past medical history, past social history, past surgicalhistory and problem list. Past Medical History: Diagnosis Date [place] 2017 prostatectomy Diverticulitis Diverticulosis Fecal impaction [place] Inflammation of sacroiliac joint 04/20/1996 Knee pain Low back pain Lumbar disc disorder Neurogenic claudication 12/17/2023 Osteoarthritis SBO (small bowel obstruction) [place] 10/04/2023 Shingles UTI (urinary tract infection) 05/08/2017 Varicose veins of right lower extremity with pain 02/08/2020 Visual impairment 12/20/2023 Past Surgical History: Procedure Laterality Date ABDOMINAL ADHESION SURGERY BACK SURGERY 03/30/2025 Fused L4-L5 COLONOSCOPY COLONOSCOPY N/A 03/25/2023 Performed by Johnathan Campbell DO at [facility] HERNIA REPAIR Left inguinal HIP SURGERY Left JOINT REPLACEMENT LAMINECTOMY LUMBAR MULTI LEVEL / L2-L5 N/A 12/25/2023 Performed by Shaista Nolen MD at [facility] PROSTATE BIOPSY PROSTATECTOMY REVISION TOTAL KNEE ARTHROPLASTY Right 2012 due to swelling TOTAL KNEE ARTHROPLASTY Right 2012 Family History Adopted: Yes Problem Relation Age of Onset Anesthesia problems Neg Hx Current Outpatient Medications Medication Sig Dispense Refill calcium carbonate-vitamin D3 (OSCAL 500 + D) 500 mg(1,250mg) -200 units per tablet Take 1 tablet bymouth in the morning and 1 tablet in [...] in the morning. (Patient not taking: Reported on04/14/2025) methocarbamoL (ROBAXIN) 750 mg tablet Take 1 [...] Urinalysis Auto, W/O Microscopy Adenocarcinoma of prostate [place] [place] - Urovysion for bladder - Cytology non-gynecologic - Prostatic specific antigen, diagnostic; Future Problem List Genitourinary Adenocarcinoma of prostate [place] [place] Overview T1c adenocarcinoma prostate [place] 3 + 3 = 6 5% and [...] referral to the radiation oncologist to discuss thattreatment further. Plan to have him return after to discuss. He additionally is using homeopathic medicine with [facility] which I again told him there is not great data to suggest this would help him 03/20 open radical prostatectomy with bilateral pelvic lymph node dissection [facility]. Finalpathology T2 N0 04/16/23: psa today. Recheck annually. [...] notify him of the results through MyChart Relevant Orders Urovysion for bladder Cytology non-gynecologic [...] you for your understanding. TERI Moore 04/14/25 1443 documented in this encounterMartins Ferry Hospital06-11-2025 History of Present illness Narrative* Ovi Mcdaniel MD - 04/14/2025 2:00 PM EDTAssociated Order(s): $ Suture removal Post-Procedure Diagnose(s): Encounter for staple removal $ Suture removal Date/Time: 04/14/2025 2:23 PM Performed by: Ovi Mcdaniel MD Authorized by: Oiv Mcdaniel MD Location: Lower back. Wound Appearance: clean, warm and pink [place] Removed: 25 Post-procedure assessment: cleaned with alcohol and left to dry. Patient tolerance: patient tolerated the procedure well with no immediate complications * Ovi Mcdaniel MD - 04/14/2025 2:00 PM EDT [address] [facility] [address] Patient: Regan Green Date of : 1950 [...] developed a rash. The bactrim was discontinued andciprofloxacin was started. No further episodes of hematuria [...] past medical history, past social history, past surgicalhistory and problem list. Past Medical History: Diagnosis Date Cancer of prostate [place] 2017 prostatectomy Diverticulitis Diverticulosis Fecal impaction [place] [place] Inflammation of sacroiliac joint 04/20/1996 Knee pain Low back pain Lumbar disc disorder Neurogenic claudication 12/17/2023 [place] ([place] [place]/04/2023 Shingles UTI (urinary tract infection) 05/08/2017 Varicose veins of right lower extremity with pain 02/08/2020 Visual impairment 12/20/2023 Past Surgical History: Procedure Laterality Date ABDOMINAL ADHESION SURGERY BACK SURGERY 03/30/2025 Fused L4-L5 COLONOSCOPY COLONOSCOPY N/A 03/25/2023 Performed by Johnathan Campbell DO at [facility] HERNIA REPAIR Left inguinal HIP SURGERY Left JOINT REPLACEMENT LAMINECTOMY LUMBAR MULTI LEVEL / L2-L5 N/A 12/25/2023 Performed by Shaista Nolen MD at [facility] PROSTATE BIOPSY PROSTATECTOMY REVISION TOTAL KNEE ARTHROPLASTY Right 2013 due to swelling TOTAL KNEE ARTHROPLASTY Right 2013 Current Outpatient Medications Medication Sig Dispense Refill calcium carbonate-vitamin D3 (OSCAL 500 + D) 500 mg(1,250mg) -200 units per tablet Take 1 tablet bymouth in the morning and 1 tablet in [...] in the morning. (Patient not taking: Reported on04/14/2025) methocarbamoL (ROBAXIN) 750 mg tablet Take 1 [...] well. no poor purulence redness or tenderness. [place] in place Lymphadenopathy: Cervical: No cervical adenopathy. [...] up. OVI MCDANIEL MD documented in [facility] Miscellaneous Notes* Telephone Encounter - Jodi Glynn LPN - 04/12/2025 9:33 AM EDT Patient called stated he broke out in a horrible rash over the weekend and he does believe it was from the Bactrim. He stopped the medication. Patient wondering if you want him to take something different. * Telephone Encounter - Ovi Mcdaniel MD - 04/12/2025 9:33 AM EDT Stop bactrim. Start ciproxin for 7 days. Use benadryl 25 mg OTC as needed for itching * Telephone Encounter - Jodi Glynn LPN - 04/12/2025 9:33 AM EDT Patient aware documented in this encounterMart[facility]06-[facility]25 Telephone encounter Note* Telephone Encounter - Jodi Glynn LPN - 04/12/2025 9:33 AM EDT Patient called stated he broke out in a horrible rash over the weekend and he does believe it was from the Bactrim. He stopped the medication. Patient wondering if you want him to take something different. [facility] Telephone encounter Note* Telephone Encounter - Ovi Mcdaniel MD - 04/12/2025 9:33 AM EDT Stop bactrim. Start ciproxin for 7 days. Use benadryl 25 mg OTC as needed for itching [facility]06-09-[facility] Telephone encounter Note* Telephone Encounter - Jodi Glynn LPN - 04/12/2025 9:33 AM EDT Patient aware [facility] Telephone encounter Note* Telephone Encounter - Carrie Martines RN - 04/08/2025 1:36 PM EDT Neuro SPINE CARE COORDINATION QUICK NOTE Returned call to patient to discuss update. See other encounter as patient had been having blood inhis urine. Patient scheduled with urology on 04/14 but saw his PCP Saturday. Patient urine was testedand came back positive for E. Coli. Patient [...] with office with any additional issues. Carrie Martines, legal support specialist Hogshead Stock Clerk [facility]06-05-2025 Telephone encounter Note* Telephone Encounter - Speed Dining Room AttendantMichelle Krause - 04/08/2025 9:13 AM EDT Call received for Johnathan Kraus MD regarding Regan Green. Caller: self Patient Identified by Name and : Regan Per Norma 1950 Reason for Call: Patient is calling to rafael Karus that he was diagose with Ecoli Is there any additional information the provider should know? No Last Office Visit: 04/06/2025 Next scheduled appointment: Visit date not found Best number to reach caller: [phone] Best time to reach caller: anytime Is it OK to leave a detailed voice message? Yes Michelle Flannery Dining Room Attendant [facility]06-03-2025 History of Present illness Narrative* Ovi Mcdaniel MD - 04/06/2025 3:00 PM EDT Images from the original note were not included. [address] [facility] [id number] Patient ID: Regan Green is a 75 y.o. male. SUBJECTIVE: Patient ID: Regan Green is a 75 y.o. male. Patient had L4-L5 decompression revision surgery and was discharged 3 days back. Patient developed gross hematuria immediately after removal of Croft catheter he has continued to have hematuria sincethen. He has dysuria. Denies any suprapubic tenderness. [...] past medical history, past social history, past surgicalhistory and problem list. REVIEW OF SYSTEMS: Review [...] Blood Negative Moderate ! COLOR Yellow, Colorless [place] ! Ketones urine Negative Negative Leukocyte esterase [...] Follow up: Annual visit. [facility] encounterR[facility] Telephone encounter Note* Telephone Encounter - Vibha Hurtado RN - 04/06/2025 11:32 AM EDT Neuro SPINE CARE COORDINATION POST OP FOLLOW UP VANDA call completed by RN CC. [See 04/06 nurse visit] Vibha Hurtado RN [facility] Work Phone: 1(303) 758-838506-03-2025 Miscellaneous Notes* Telephone Encounter - Vibha Hurtado RN - 04/06/2025 11:32 AM EDT Neuro SPINE CARE COORDINATION POST OP FOLLOW UP VANDA call completed by RN CC. [See 04/06 nurse visit] Vibha Hurtado RN documented in this encounterAcmc Healthcare System06-03-2025 NoteHNO ID: [id number] Author: CARRIE MARTINES RN Service: ? Author [...] update office with any needs. Carrie Martines RNBl[facility]06-03-2025 History of Present illness Narrative* Carrie Martines RN - 04/06/2025 11:09 AM EDT Neuro SPINE CARE COORDINATION POST OP FOLLOW [...] denies need for any refills. Patient states incisionlooks good with no concerns. Will update office with any needs. Carrie Martines RN documented in this encounterAcmc Healthcare System06-02-2025 Miscellaneous Notes* Telephone Encounter - Lupe Beard CMA - 04/05/2025 9:59 AM EDT Pt had surgery with Dr Kraus at the [facility] for spine surgery 03/30. wants pt to follow up with you for sx's pt is having. Blood in urine, urgency, afebrile. This has been going on for3 days. Nurse will call back to get pt sched to see you. * Telephone Encounter - Minh Heller MD - 04/05/2025 9:59 AM EDT Should see someone (physician help desk support specialist or myself) this week given the symtpoms * Telephone Encounter - Lupe Beard CMA - 04/05/2025 9:59 AM EDT Spoke to pt and [facility] made appt for pt to see his PCP tomorrow. He will keep that appt and see what he says and go from there. documented in this encounterMartins [facility]erry Hospital06-02-2025 Telephone encounter Note* Telephone Encounter - Lupe Beard CMA - 04/05/2025 9:59 AM EDT Pt had surgery with Dr Kraus at the [facility] for spine surgery 03/30. Dr wants pt to follow up with you for sx's pt is having. Blood in urine, urgency, afebrile. This has been going on for3 days. Nurse will call back to get pt sched to see you. [facility]06-02-[facility] Telephone encounter Note* Telephone Encounter - Minh Heller MD - 04/05/2025 9:59 AM EDT Should see someone (physician help desk support specialist or myself) this week given the symtpoms [facility]06-[facility] Telephone encounter Note* Telephone Encounter - Lupe Beard CMA - 04/05/2025 9:59 AM EDT Spoke to pt and [facility] made appt for pt to see his PCP tomorrow. He will keep that appt and see what he says and go from there. [facility] Telephone encounter Note* Telephone Encounter - Marcie Steinberg RN - 04/05/2025 9:43 AM EDT Images from the original note were not included. Antonia Leija PA-C You 3 minutes ago (9:38 AM) Thank you, I agree. Is there a way to have him see urology or PCP for evaluation? Spoke w/ pt. PCP is Dr. Light and he will see his POT FISHER tomorrow @ 3p. Shared clinical update withRDorene Francisco. Dr. Minh Heller is his urologist . , update shared w/ MIREILLE Liu. Pt will meet with PCP and then touch base with urology if needed. He will monitor symptoms and be seen if things worse. EA notified. [facility]06-02-2025 Miscellaneous Notes* Telephone Encounter - Marcei Steinberg RN - 04/05/2025 9:43 AM EDT Images from the original note were not included. Antonia Leija PA-C You 3 minutes ago (9:38 AM) Thank you, I agree. Is there a way to have him see urology or PCP for evaluation? Spoke w/ pt. PCP is Dr. Light and he will see his POT FISHER tomorrow @ 3p. Shared clinical update withRDorene Francisco. Dr. Minh Heller is his urologist . , update shared w/ MIREILLE Liu. Pt will meet with PCP and then touch base with urology if needed. He will monitor symptoms and be seen if things worse. EA notified. * Telephone Encounter - Marcie Stienberg RN - 04/05/2025 9:02 AM EDT Date of Surgery w/ Radha Alonzo: 03/30/2025 Surgery: revision L4-5 decompression, L4-5 TLIF Returned call to pt. When I go to the bathroom and urinate, the stool is kind of tinted. Then whenpeeing, it just started burning when, its all [...] understanding. Update shared w/ EA for review. * Telephone Encounter - Kaykay Gandhi - 04/05/2025 8:35 AM EDT Call received for Johnathan Kraus MD regarding [...] not found Best number to reach caller: [phone] Best time to reach caller: anytime Is it OK to leave a detailed voice message? Yes Kaykay Gandhi documented in this encounterAcmc [facility] System06-02-2025 Telephone encounter Note * Telephone Encounter - Marcie Steinberg RN - 04/05/2025 9:02 AM EDT Date of Surgery w/ Radha Alonzo: 03/30/2025 Surgery: revision L4-5 decompression, L4-5 TLIF Returned call to pt. When I go to the bathroom and urinate, the stool is kind of tinted. Then whenpeeing, it just started burning when, its all [...] understanding. Update shared w/ EA for review. [facility]06-02-2025 Telephone encounter Note* Telephone Encounter - Kaykay Gandhi - 04/05/2025 8:35 AM EDT Call received for Johnathan Kraus MD regarding Regan Dodgeier. Caller: self Patient Identified by Name and [...] not found Best number to reach caller: [phone] Best time to reach caller: anytime Is it OK to leave a detailed voice message? Yes Kaykay Gandhi [facility]05-29-2025 NoteHNO ID: [id number] Author: SHIRAZ ELIAS PA-C Service: Neurosurgery Author Type: Physician Commercial Appraiser Type: Progress Notes Filed: 04/01/2025 10:33 Note Text: SERVICE DATE: 04/01/2025 SERVICE TIME: 10:33 AM SPINE SURGERY TEAM PROGRESS NOTE After 6 PM (1800) please page Patricia Davis PA-C [phone], backup pager [phone]. Attending: Johnathan Desouza MD Location: H060 049/[id number] Hospital Day: 3 03/30/2025 2 Days Post-Op S/P: revision L4-5 decompression, L4-5 TLIF MEDICATIONS: Current medications and allergies reviewed. Recommended/planned medication changes discussed in detail in the A/P section below. INTERVAL HPI (Subjective): is a 75 year old male who reports pain is well managed. Continues to use JACKERMAN, discussed weaning off of JACKERMAN today. Drain removed at bedside. Patient reporting improved R thigh sensation today. Denies excessive pain, bleeding, drainage, nausea, vomiting, chest pain, shortness of breath, and light headedness. Overnight events noted: none. Bowel / Bladder dysfunction: No OBJECTIVE: LABS: CBC: Recent Labs 04/01/25 0435 03/31/25 0446 WBC 7.83 11.36* HB 11.0* 11.5* HCT [...] 12 CREAT 0.77 0.64* CHEM: Recent Labs 04/01/25 0435 03/31/25 0446 CA 8.6 8.6 Estimated Creatinine [...] BICEPS TRICEPS DELTS Wrist Ext Wrist Flex Roll Sheeting Cutter HI R 5/5 5/5 5/5 5/5 5/5 [...] 1 day Drain Duration Drain/Tube 03/30/25 1626 [facility] Hemovac Back 1 day Indwelling Urinary Catheter 03/30/25 1200 [facility] Coude 16 Fr 1 day Drain removed 04/01 Croft removed on 03/31 Current restraint orders: None Assessment AND Plan Active Hospital Problems as of 04/01/2025 Noted - Resolved [facility] * (Principal) Spinal stenosis of lumbar region, unspecified whether neurogenic claudication present 03/30/2025 - Present Yes Current Assessment AND Plan Assessment: s/p revision L4-5 decompression, L4-5 TLIF PLAN: -Pain control: begin weaning JACKERMAN -Drain removed -PT/OT rec HHC, patient declining -Upright x-rays when able -DVT ppx: continue IPCs, heparin SQ bid -OOB for meals, mobilize at least 3x daily -Bowel regimen -Anticipate d/c in 1-2 days -D/w Dr. Kraus Acute post-operative pain 03/31/2025 - Present Yes Current Assessment AND Plan Assessment: Post-op pain PLAN: -Begin weaning JACKERMAN -Continue prn PO pain regimen S/P lumbar [...] care discussed with: P (more content not included)...[facility]05-28-2025 NoteHNO ID: [id number] Author: KENNETH QUIROGA ? Service: Pharmacy Author Type: Director Health Type: Plan of Care Filed: 03/31/2025 16:46 Note Text: Insurance investigation completed Patient has active prescription insurance: Yes - Patient's insurance is in-network with [facility] Insurance loaded into [place]: Yes Test claim was completed to verify insurance is active: Successful Any questions, please reach out to your medication patient appointment coordinator.[facility]05-28-2025 NoteHNO ID: [id number] Author: ZOILA SANTORO LSW Service: Care Management Author Type: Manager Water Type: Care Mgt Initial Assessment Filed: 03/31/2025 [...] Current Advance Directive: Health Care Power of Mortgage Consultant, Living Will, Other Document: See Comment (DNR) In Chart: No Photography Editor Attempted to Assist with AD Completion: Yes [...] Be able to go home, Better mobility [place] of Choice Explained: [place] of Choice Given: Yes Level of Care [...] safe discharge. For questions, please contact the manager event (Transitional Hogshead Stock Clerk) or Manager Water assigned to the patient under Treatment team. SIGNATURE: BETO Tracy PATIENT NAME: Regan Green DATE: March 31, 2025 TIME: 12:44 [facility]05-28-2025 NoteHNO ID: [id number] Author: SHIRAZ ELIAS PA-C Service: Neurosurgery Author Type: Physician Commercial Appraiser Type: Progress Notes Filed: 03/31/2025 10:38 Note Text: SERVICE DATE: 03/31/2025 SERVICE TIME: 10:37 AM SPINE SURGERY TEAM PROGRESS NOTE After 4 PM (1600) please page Marylou Jaimes CNP [phone]. After 6 PM (1800) please page Patricia Davis PA-C [phone] or Johnathan Madrigal PA-C [phone], backup pager [phone]. Attending: Johnathan Desouza MD Location: H060 049/[id number] Hospital Day: 2 03/30/2025 1 Day Post-Op S/P: revision L4-5 decompression, L4-5 TLIF MEDICATIONS: Current medications and allergies reviewed. Recommended/planned medication changes discussed in detail in the A/P section below. INTERVAL HPI (Subjective): is a 75 year old male who reports incisional pain that was well managed with JACKERMAN overnight. Denies any new numbness, weakness or [...] last 168 hours. BMP: Recent Labs 03/31/25 044 GLUC 100* NA 141 K 4.2 CHLOR 106 CO2 24 ANION 11 BUN 12 CREAT 0.64* CHEM: Recent Labs 03/31/25445 CA 8.6 Estimated Creatinine Clearance: 127.1 mL/min [...] BICEPS TRICEPS DELTS Wrist Ext Wrist Flex Roll Sheeting Cutter HI R 5/5 5/5 5/5 5/5 5/5 [...] <1 day Drain Duration Drain/Tube 03/30/25 1626 [facility] Hemovac Back <1 day Indwelling Urinary Catheter 03/30/25 1200 [facility] Coude 16 Fr <1 day Maintain hemovac, d/c croft Current restraint orders: None Assessment AND Plan Active Hospital Problems as of 03/31/2025 Noted - Resolved [facility] * (Principal) Spinal stenosis of lumbar [...] AND Plan Assessment: Post-op pain PLAN: -Continue JACKERMAN, begin weaning tomorrow -Continue prn PO pain [...] care discussed with: Pro (more content not included)...[facility]05-27-2025 NoteHNO ID: [id number] Author: JESSICA LEE MD Service: Neurosurgery Author [...] Jessica Lee MD Spine Surgery Fellow Pager# [phone] March 30, 2025 5:03 PM Please page [phone] after 6 PM and on weekendOhioHealth Nelsonville Health Center05-27-2025 NoteHNO ID: [id number] Author: SO SAINZ MD Service: ? Author [...] March 30, 2025 TIME: 1:11 PM CSN: [id number]. Francis Hospital05-27-2025 NoteHNO ID: [id number] Author: BONNIE MENDOZA SRNA Service: ? Author [...] March 30, 2025 TIME: 12:58 PM CSN: [id number]. Francis Hospital05-27-2025 NoteHNO ID: [id number] Author: SO SAINZ MD Service: ? Author Type: Anesthesiologist Type: Anesthesia Procedure Notes Filed: 03/30/2025 13:15 Note Text: ANESTHESIOLOGY PROCEDURE NOTE Airway General Information Procedure Start Time/Medication Administration: 03/30/2025 12:09 PM Procedure End Time: 03/30/2025 12:09 PM Patient location during procedure: OR Timeout Performed Pre-procedure: timeout performed Consent Obtained: Yes Patient identity confirmed: arm band, care clinical team manager and patient Staffing Anesthesiologist: So Sainz MD [...] Successful intubation technique: video laryngoscopy Devices used: [place] Endotracheal tube insertion site: oral Blade: Jeremiah [...] March 30, 2025 TIME: 12:55 PM CSN: [id number]. Francis Hospital05-20-2025 NoteHNO ID: [id number] Author: CARRIE MARTINES RN Service: ? Author Type: Registered Nurse Type: Progress Notes Filed: 03/23/2025 10:06 Note Text: Neuro SPINE CARE COORDINATION PRE-OP VISIT Spoke with patient for pre op education. Given both written and verbal instructions re : Skin prep, wound care, pain management and post op restrictions. Provided to patient: [facility] Surgery Guide Yes Reviewed with patient to report to desk J19 for surgery ? Yes. Reviewed with the patient to call [phone] the day before to get surgery report [...] by week 2-3 post operative. Carrie Martines RNBluffton Hospital05-18-2025 NoteHNO ID: [id number] Author: WALTER MORROW RN Service: ? Author Type: Registered Nurse Type: Progress Notes Filed: 03/21/2025 21:49 Note Text: Patient referred to Blood Management for pre-surgical optimization. Hgb 15.0 which exceeds Blood Management guidelines for intervention.[facility]05-18-2025 History of Present illness Narrative* Walter Morrow RN - 03/21/2025 9:49 PM EDT Patient referred to Blood Management for pre-surgical optimization. Hgb 15.0 which exceeds Blood Management guidelines for intervention. documented in this encounterAcmc Healthcare System05-15-2025 NoteHNO ID: [id number] Author: FABIAN LYNN III, MD Service: ? [...] Lynn III, MD Date: 03/18/2025 Time: 1:51 [facility]05-15-2025 History of Present illness Narrative* Fabian Lynn III, MD - 03/18/2025 1:51 PM EDT Attending Note I evaluated the patient and personally participated in the potter components. I agree with the resident's findings and plan as documented and have discussed the case and management of the patient's carewith the resident. Signature: Fabian Lynn III, MD Date: 03/18/2025 Time: 1:51 PM documented in this encounterAcmc Healthcare System05-15-2025 Instructions* Patient Instructions* Vance Ferreira DO - 03/18/2025 1:10 PM EDT Images from the original note were not included. [facility] PATIENT PREOPERATIVE INSTRUCTIONS No ref. provider found has scheduled you for your procedure at this surgery center: [facility] [place] Scheduling Office: [phone] --[address] [place] [address]. Please read below carefully for your personalized [...] office. If you are currently using a ewwm-qba-cntw injectable or oral medication for diabetes or weight loss such as Dulaglutide (Trulicity), Exenatide (Byetta, Bydureon), Liraglutide (Victoza, Saxenda), Semaglutide (Ozempic, Wegovy, Rybelsus), or Tirzepatide (Mounjaro), the medicine should be stopped at least 7 days before surgery. These medicines can cause food to remain in your stomach for a very longtime and increase the risks from surgery and [...] Procedures: - YOU MUST HAVE A RESPONSIBLE USED CAR RENOVATOR TAKE YOU HOME. A RUG HOOKER OR OCCUPATIONAL THERAPY CO DIRECTOR CANNOT BE MADE A RESPONSIBLE USED CAR RENOVATOR. - We recommend that a responsible person stays with you overnight to take care of you. - You cannot stay in a hotel alone after outpatient surgery. You will not be permitted to have yoursurgery, if you do not have someone to [...] call the Saturday before. Your surgeon s senior director finance will tell you what time to call the office. - If you have not reached the departmental senior director finance by 5 P.M., call [phone] after 5 P.M. the day before your surgery. Please be aware that emergency situations arise, which may delay or change your surgical time. If this happens, we will notify you as soon as possible and regret any inconvenience. If you already have an Advance Directive, please fax a copy to [phone] or email to for it to be added to your chart. If you do not have an Advance Directive, you can find the appropriate form and more information at [email or web address]. We recommend that youcomplete the Advance Directive form found on the website and bring it with you the day of your surgery. It can be witnessed and scanned into your chart that day. Vance FerreiraDO documented in this encounterAcmc Healthcare System05-15-2025 History and physical note * Vance Ferreira DO - 03/18/2025 12:51 PM EDT Images from the original note were not included. [facility] Pre-[facility]est[facility]ation [facility] HISTORY [...] PRN oxycodone and PRN diclofenac forpain control Malignant neoplasm of prostate (HCC) S/p [...] teeth intact. II - ANESTHESIA PLAN Beta Sivan Monitoring Plan Post Procedure Analgesic Plan Informed Consent Anesthetic risks, benefits, alternatives, personnel and consent discussed: yes. Patient / Responsible Republican agrees to proceed: yes Patient / Surrogate [...] be communicated back to the requesting physician byway of shared medical record or letter. Subjective The patient has the following: COVID-19 Immunization Status Current Care Gaps Covid-19 Vaccine ( season) Overdue since 07/05/2024 08/20/2022 Imm Admin: COVID-19 vaccine, age 12+ yr, bivalent (PFIZER-BIONTECH) 09/18/2021 Imm Admin: COVID-19 original vaccine, full dose, monovalent (MODERNA) 01/18/2021 Imm Admin: COVID-19 original vaccine, full dose, monovalent (MODERNA) Only the first 3 history entries have been loaded, but more history exists. CHIEF COMPLAINT: Pre-Op Evaluation HPI: Pt is a 74 y/o M w/ PMH of prostatic carcinoma, Hx of UTIs, lumbar radiculopathy now scheduledfor decompression laminectomy L3-L5 with Dr. Kraus on 03/30/25 REVIEW OF SYSTEMS: General: No weight loss, malaise or fevers. Neurological: Negative for: headaches, impaired sensorium, seizures, TIA and strokes. Respiratory: Negative for: asthma, COPD, current cough, dyspnea, pneumonia within 6 weeks, tobacco use, URI <2 weeks and obstructive sleep apnea. Cardiovascular: Negative [...] or any previous visit (from the past [id number] hours). Instructions Given to Patient: Instructions located in the after visit summary. Patient given verbal and written preop instructions and voices comprehension and compliance. SIGNATURE: Vance Ferreira DO PATIENT NAME: Regan Green DATE: March 18, 2025 TIME: 12:51 PM PAGER/CONTACT #: [facility]05-15-2025 History and physical note* Vance Ferreira DO - 03/18/2025 12:51 PM EDT Images from the original note [...] PRN oxycodone and PRN diclofenac forpain control Malignant neoplasm of prostate (HCC) S/p [...] teeth intact. II - ANESTHESIA PLAN Beta Sivan Monitoring Plan Post Procedure Analgesic Plan Informed Consent Anesthetic risks, benefits, alternatives, personnel and consent discussed: yes. Patient / Responsible Republican agrees to proceed: yes Patient / Surrogate [...] be communicated back to the requesting physician byway of shared medical record or letter. Subjective The patient has the following: COVID-19 Immunization Status Current Care Gaps Covid-19 Vaccine () Overdue since 07/05/2024 08/20/2022 Imm Admin: COVID-19 vaccine, age 12+ yr, bivalent (Errand [employer] Delivery Business Plan) 09/18/2021 Imm Admin: COVID-19 original vaccine, full dose, monovalent (MODERNA) 01/18/2021 Imm Admin: COVID-19 original vaccine, full dose, monovalent (MODERNA) Only the first 3 history entries have been loaded, but more history exists. CHIEF COMPLAINT: Pre-Op Evaluation HPI: Pt is a 74 y/o M w/ PMH of prostatic carcinoma, Hx of UTIs, lumbar radiculopathy now scheduledfor decompression laminectomy L3-L5 with Dr. Kraus on 03/30/25 REVIEW OF SYSTEMS: General: No weight loss, malaise or fevers. Neurological: Negative for: headaches, impaired sensorium, seizures, TIA and strokes. Respiratory: Negative for: asthma, COPD, current cough, dyspnea, pneumonia within 6 weeks, tobacco use, URI <2 weeks and obstructive sleep apnea. Cardiovascular: Negative [...] or any previous visit (from the past 29894 hours). Instructions Given to Patient: Instructions located in the after visit summary. Patient given verbal and written preop instructions and voices comprehension and compliance. SIGNATURE: Vance Ferreira DO PATIENT NAME: Regan Green DATE: March 18, 2025 TIME: 12:51 PM PAGER/CONTACT #: documented in this encounterAcmc Healthcare System05-14-2025 History of Present illness Narrative* Marek Espinoza PSYD - 03/17/2025 1:00 PM EDT Images from the original note were not included. Behavioral Medicine Group Session TREK for Surgical Success/Empowered Relief for Surgery Patient Name: Regan Green CC#: [id number] Date of service: March 17, 2025 I have communicated my name and active licensure. The patient's identity and physical location wereverified at the time of this visit. Either the patient or their legal escrow representative has been informed of the risks and benefits of -- and alternatives to -- treatment through virtual visit and consents to proceed with the session remotely. Patient location: Regan Green [id number] [facility] [address] Patient Entered Questionnaires 11/18/2024 01/03/2025 03/17/2025 PROMIS [...] population = 50. Five points is a clinicallymeaningful difference.) Physical T-Score 50.8 44.9 39.8 Mental [...] target negative thought patterns related to pain. Additionalmaterials included a personalized relapse prevention plan and [...] 1p Stop time 2:40p documented in this encounterAcmc Healthcare System05-14-2025 NoteHNO ID: [id number] Author: MAREK ESPINOZA PSYD Service: ? Author Type: Psychologist Type: Progress Notes Filed: 03/21/2025 14:31 Note Text: Behavioral Medicine Group Session TREK for Surgical Success/Empowered Relief for Surgery Patient Name: Regan Green CC#: [id number] Date of service: March 17, 2025 I have communicated my name and active licensure. The patient's identity and physical location were verified at the time of this visit. Either the patient or their legal escrow representative has been informed of the risks and benefits of -- and alternatives to -- treatment through virtual visit and consents to proceed with the session remotely. Patient location: Regan Green [id number] [address] [place] [address] Patient Entered Questionnaires 11/18/2024 01/03/2025 03/17/2025 PROMIS [...] ketorolac (TORADOL) 10 mg (more content not included)...[facility]05-07-2025 Telephone encounter Note* Telephone Encounter - Carrie Martines RN - 03/10/2025 4:21 PM EDT Surgery Planning Name: Regan Green Age: [age] year old Wt: 102.1 kg (225 lb) BMI: 33.23 kg/(m^2) Patient's Home Address: [address] [place] [id number] Diagnosis: Spondylolisthesis of lumbar region Procedure: L4/5 [...] X Team MC X Education MC X [facility]05-07-[facility] Miscellaneous Notes* Telephone Encounter - Carrie Martines RN - 03/10/2025 4:21 PM EDT Surgery Planning Name: Regan Green Age: [age] year old Wt: 102.1 kg (225 lb) BMI: 33.23 kg/(m^2) Patient's Home Address: [address] [place] [id number] Diagnosis: Spondylolisthesis of lumbar region Procedure: L4/5 [...] X Education MC X documented in this encounterAcmc Healthcare System03-27-2025 Telephone encounter Note * Telephone Encounter - Marcie Steinberg RN - 01/28/2025 1:17 PM EDT Per SY w/ MS on 01/09/25: It be my suggestion that we decompress and fuse L4-5 alone knowing that there is some uptake in the facet joints at L3-4. If back pain persists and not significant after surgery we can always come back later and approach the L3-4 level from a lateral approach. Shared with RNCC for scheduling upon return to office. [facility]03-27-[facility]25 Miscellaneous Notes* Telephone Encounter - Marcie Steinberg RN - 01/28/2025 1:17 PM EDT Per SY w/ MS on 01/09/25: It be my suggestion that we decompress and fuse L4-5 alone knowing that there is some uptake in the facet joints at L3-4. If back pain persists and not significant after surgery we can always come back later and approach the L3-4 level from a lateral approach. Shared with RNCC for scheduling upon return to office. * Telephone Encounter - Kaykay Gandhi - 01/28/2025 10:34 AM EDT Call received for Johnathan Kraus MD regarding [...] not found Best number to reach caller: [phone] and [phone] Best time to reach caller: anytime Is it OK to leave a detailed voice message? Yes Kaykay Gandhi documented in this encounterAcmc Healthcare System03-27-2025 Telephone encounter Note * Telephone Encounter - Kaykay Gandhi - 01/28/2025 10:34 AM EDT Call received for Johnathan Kraus MD regarding [...] not found Best number to reach caller: [phone] and [phone] Best time to reach caller: anytime Is it OK to leave a detailed voice message? Yes Kaykay Gandhi [facility]03-08-2025 NoteHNO ID: [id number] Author: JOHNATHAN KRAUS MD Service: ? Author Type: Physician Type: Progress Notes Filed: 01/09/2025 09:51 Note Text: SPINE SURGERY ESTABLISHED VISIT This is a virtual visit using [employer] Video Visit. It required patient-provider interaction for the medical decision making as documented below. I have communicated my name and active licensure. The patient's identity and physical location were verified at the time of this visit. Either the patient or their legal escrow representative has been informed of the risks [...] and approach the L3-4 (more content not included)...[facility]03-08-2025 History of Present illness Narrative* Johnathan Kraus MD - 01/09/2025 9:48 AM EST Images from the original note were not included. SPINE SURGERY ESTABLISHED VISIT This is a virtual visit using [employer] Video Visit. It required patient- provider interaction for the medical decision making as documented below. I have communicated my name and active licensure. The patient's identity and physical location wereverified at the time of this visit. Either the patient or their legal escrow representative has been informed of the risks and benefits of -- and alternatives to -- treatment through a remote evaluation andconsents to proceed with the evaluation remotely. DATE [...] as well and its indications and back pain.We discussed from a surgical standpoint either decompressing and fusing L4-5 alone plus or minus the addition of the L3-4 level. We talked about the pros and cons of both. It be my suggestion that wedecompress and fuse L4-5 alone knowing that there is some uptake in the facet joints at L3-4. If back pain persists and not significant after surgery we can always come back later and approach the L3-4 level from a lateral approach. I think we both agreed to that and are comfortable with it. I wentover the risks and the percentages of those [...] the patient or the patient s personal escrow representative. The patient intends to call the office with a decison. Shared decision making occurred while obtaining informed consent. 1. No Orders Entered Today 2. Follow up: Following above Imaging Ordered: None time 30 min SIGNATURE: Johnathan Kraus MD PATIENT NAME: Regan Green DATE: January 09, 2025 TIME: 9:48 AM PAGER: documented in this encounterAcmc Healthcare System02-05-2025 History of Present illness Narrative* Claudia Chowdhury, Nuclear Tech - 12/09/2024 10:30 AM EST RADIOLOGY SERVICE PROGRESS NOTE SERVICE DATE: 12/09/2024 [...] PATIENT PRESENTS WITH AN IMPLANTABLE OR ATTACHED CEMENT LOADER: No CREATININE: Creatinine Date Value Ref Range [...] information regarding radiation safety can be found usingthis link: [email or web address] 20Diagnostic%20Nuclear%20Medicine%20Procedures.pdf SIGNATURE: Claudia D ChowdhurySorin delgadillo PATIENT NAME: Regan Green DATE: December 09, 2024 TIME: 10:48 AM PAGER/CONTACT #: documented in this encounterAcmc Healthcare System02-05-2025 NoteHNO ID: [id number] Author: CLAUDIA CHOWDHURY Nuclear Tech Service: Nuclear Medicine Author Type: Western Philosophy Professor Type: Progress Notes Filed: 12/09/2024 10:50 Note [...] PATIENT PRESENTS WITH AN IMPLANTABLE OR ATTACHED CEMENT LOADER: No CREATININE: Creatinine Date Value Ref Range [...] safety can be found using this link: [email or web address] 20Diagnostic%20Nuclear%20Medicine%20Procedures.pdf SIGNATURE: Claudia Chowdhury, LinguaLeo PATIENT NAME: Regan Green DATE: December 09, 2024 TIME: 10:48 AM PAGER/CONTACT #:[id number] History of Present illness Narrative* Johnathan Kraus MD - 11/25/2024 3:10 PM EST Images from the original note were not included. SPINE SURGERY NEW PATIENT PCP: Sumanth Light MD REFERRING PROVIDER: Lisa Nichols [address] [facility] [address] 30 minutes Assessment/Plan No diagnosis found. Regan Green has a condition that requires further workup. Patient's XR prior to surgery shows a slip forward of L4 on L5 due to arthritis, which could cause back pain. After surgery, the slip has increased and there is a greater degree of instability. It isdifficult to determine the etiology of the patient's back pain. The patient's MRI shows multilevel arthritic degeneration. There is severe stenosis at L4-5 causing nerve compression, which is likely c ausing his leg symptoms. Surgical option would be [...] presence of Dr. Johnathan Kraus. Electronically signed, Shireen GardinerermanFara November 25, 2024 3:29 PM Subjective Regan [...] multilevel disc space narrowing. documented in this encounterAcmc Healthcare System01-22-2025 NoteHNO ID: [id number] Author: JOHNATHAN KRAUS MD Service: ? Author Type: Physician Type: Progress Notes Filed: 12/01/2024 07:07 Note Text: SPINE SURGERY NEW PATIENT PCP: Sumanth Light MD REFERRING PROVIDER: Lisa Nichols [address] [facility] [address] 30 minutes Assessment/Plan No diagnosis found. Regan [...] 5-14 Normal: PHQ-9 < 5 Data from [facility] Epic on prior therapies: Last PT session: [...] SIGN: Not tested. SPURLING' (more content not included)...[facility]10-08-2024 History of Present illness Narrative* Sumanth Hill MD - 08/11/2024 9:00 AM EDT Images from the original note were not included. [address] [facility] [id number] Subjective: Regan Green is a 74 y.o. male who presents for a Medicare Annual Wellness exam. The following portions of the patient's history were reviewed and updated as appropriate: Health Risk Assessment, allergies, past medical history, past surgical history, social history, family history, and immunization history Accompanied by: self History Provided By: self Language and Other Communication Barriers: Primary Language Spoken: Cymro Highest Level of Education Completed: high school [...] Do you have a durable power of employment law attorney?: Yes Fall Risk Fall Risk Assessment [...] with pain 02/08/2020 [place] [place] 02/07/2017 Adenocarcinoma of prostate [place] [place] 11/20/2016 Past Medical History: Diagnosis Date Cancer of prostate [place] 2017 prostatectomy Diverticulitis Diverticulosis Fecal impaction [place] [place] Inflammation of sacroiliac joint [place] [place] Knee pain Low back pain Lumbar disc disorder Neurogenic claudication 12/17/2023 Osteoarthritis SBO (small bowel obstruction) [place] [place] 10/04/2023 Shingles UTI (urinary tract infection) Varicose veins of right lower extremity with pain 02/08/2020 Visual impairment 12/20/2023 Past Surgical History: Procedure Laterality Date ABDOMINAL ADHESION SURGERY COLONOSCOPY COLONOSCOPY N/A 03/25/2023 Performed by Johnathan Campbell DO at [facility] Left inguinal HIP SURGERY Left JOINT REPLACEMENT LAMINECTOMY LUMBAR MULTI LEVEL / L2-L5 N/A 12/25/2023 Performed by Shaista Nolen MD at [facility] PROSTATE BIOPSY PROSTATECTOMY REVISION TOTAL KNEE [...] -200 units per tablet Take 1 tablet bymouth in the morning and 1 tablet in [...] of yes answers would provide a composite measureof non-adherence. Higher scores indicate higher adherence. Cognitive [...] method used for this test is [employer] DXI chemiluminescent immunoassay. Values obtained by different [...] includes TSH FT4; Future Adenocarcinoma of prostate ([facility]) Follow Up: Consider inversion table fasting labs documented in this encounterACMC Healthcare SystemCamera Service & Integration [id number] Instructions* Patient Instructions* Sumanth Hill MD - 08/11/2024 9:00 AM [...] therapy services: Not applicable documented in this encounterMartins Ferry Hospital09-23-2024 Miscellaneous Notes* Telephone Encounter - Isabel Dowell RN - 07/27/2024 9:20 AM EDT Received a request for a retro C9 for PT for patient. Patient's care and surgery with us has never been under a workers comp claim. Call to Chuckie [phone] advising his of this and call back number provided if he has any additional questions. Fax we received will be scanned into chart. documented in this encounterMartins Ferry Hospital09-23-2024 Telephone encounter Note* Telephone Encounter - Isabel Dowell RN - 07/27/2024 9:20 AM EDT Received a request for a retro C9 for PT for patient. Patient's care and surgery with us has never been under a workers comp claim. Call to Chuckie [phone] advising his of this and call back number provided if he has any additional questions. Fax we received will be scanned into chart. [facility] [employer] Work Phone: 1(291) 265-707608-30-2024 History of Present illness Narrative* Isabel Elliott APRN.FISHER SCALLOP - 07/03/2024 4:08 PM EDT Per Triage: Regan Green is a 74 year old male that requests evaluation of lumbar spine. Per review, they have symptoms of right leg pain from right knee to ankle numbness and weakness Patient lives in [place] [address] Gregorio Nichols 's office referring the patient to be seen in Neuro Surgeryfor 2nd opinion for lumbar stenosis. Is this [...] of imaging with him and injection history * Ling Esteves - 07/01/2024 2:32 PM EDT Patient name: Regan Green Are you being referred by a Center for [facility] Health Provider or Pain Management Provider at [facility]? No If answer is YES please schedule directly with surgeon, triage does not need to be completed. Is this a self-referral No If not, who is the Referring Provider Dr. Gregorio Nichols 's office referring the patient to be [...] the facility where the MRI/CT/myelogram was completed: [facility] [address] [place] [address] MRI/CT/myelogram viewable in Epic: No If not, please provide [phone] to fax in imaging reports for review. Also, please inform patient to hand carry imaging disc to appointment. XR (spine) within 12 months: Yes If YES, please ask for the name/address of the facility where the XR was completed: [facility] [address] [place] [address] Dr. Robertson's patients: Have you had previous EMG/Nerve Conduction Study, Ultrasound, or MRI for thesesame symptoms? If YES, please ask for the [...] injections and/or physical therapy was completed PT: [facility] [address] [place] [address] Injections: [facility] [address] [place] [address] Have you tried any other kinds of [...] the surgery was completed: 12/25/2023, Laminectomy L2-L5 [facility] [address] [place] [address] Additional Comments [phone] documented in this encounterAcmc Healthcare System08-01-2024 History of Present illness Narrative* Cral Sosa APRN-LATOYA - 06/04/2024 9:45 AM EDT Images from the original note were not included. [facility] [address] [place] [address], [address] [place] [address] * CHART NOTE ? 06/04/2024 Patient: Regan Green 1950 [id number] Nurse Practitioner: Carl Sosa CNP Physician: Shaista Nolen MD, FAANS IMPRESSION / PLAN 74 y.o. male with right lower extremity radiculopathy. Imaging demonstrated a L4-5 spondylolisthesis. Given the failure of conservative therapies to improve the patients condition he is a surgical candidate for a L4-5 realignment and fusion. He would like time to consider surgery and will call whenhe Is ready to schedule. HISTORY OF PRESENT ILLNESS 74 y.o. male s/p L2-L5 laminectomy on 12/25/23 presents to the clinic as a follow up for RLE radiculopathy with findings of L4-5 spondylolisthesis. He was referred to pain management for CHANTELLE, aquatic therapy, and prescribed anti- inflammatory medications. Kenneth reports he is not having [...] to the patient's understanding. Denies loss of professional housing consultant strength, saddle anesthesia, urinary or bowel dysfunction, weakness, and loss of balance. Patient does not use an assistive device for ambulation. Patient is not diabetic and former smoker. PAST MEDICAL HISTORY Past Medical History: Diagnosis Date Cancer of prostate [place] 2017 prostatectomy Diverticulitis Diverticulosis Fecal impaction [place] [place] Inflammation of sacroiliac joint [facility] Knee pain Low back pain Lumbar disc disorder Neurogenic claudication 12/17/2023 Osteoarthritis SBO (small bowel obstruction) ([facility] 10/04/2023 Shingles UTI (urinary tract infection) Varicose veins of right lower extremity with pain 02/08/2020 Visual impairment 12/20/2023 PAST SURGICAL HISTORY Past Surgical History: Procedure Laterality Date ABDOMINAL ADHESION SURGERY COLONOSCOPY COLONOSCOPY N/A 03/25/2023 Performed by Johnathan Campbell DO at [facility] Left inguinal HIP SURGERY Left LAMINECTOMY LUMBAR MULTI LEVEL / L2-L5 N/A 12/25/2023 Performed by Shaista Nolen MD at [facility] PROSTATE BIOPSY PROSTATECTOMY REVISION TOTAL KNEE [...] By: Carl Sosa CNP in conjunction with Shaista Nolen MD This note was created with the assistance of a speech recognition program with the goal of generating a timely record of the patient encounter. Inadvertent computerized carpenter refrigerator errors related to syntax, spelling, homophones, and/or inaudibility may be present. Scribe Statement: Scribed for and in the presence of Shaista Nolen MD by Cheo Rodriguez. Provider Statement: I, Shaista Nolen MD personally performed the services described in the documentation, as scribedby Joshua Higginbotham in my presence, and it is both accurate and complete Cheo Rodriguez 06/04/24 [id number] Kirk 06/04/24 1157 documented in this encounterMartins Ferry Hospital08-01-2024 Instructions* Patient Instructions* AINSLEY Szymanski - 06/04/2024 9:45 AM EDT Patient was seen today by Dr. Nolen. Patient will call in regards to Lumbar Fusion. JA documented in this encounterMartins Ferry Hospital06-25-2024 History of Present illness Narrative* Minh Heller MD - 04/28/2024 1:00 PM EDT Images from the original note were not included. [address] [place] [address] [address] [facility] [address] [facility] [id number] Patient: Regan Green Date of : 1950 Encounter Date: 04/28/2024 History of Present Illness: Chief Complaint: Follow up The patient is a 74 y.o. male, an established patient, and is here for He was diagnosed with adenocarcinoma prostate Gary 7 with 2 of 12 cores positive in 2017. He underwent open radical prostatectomy with bilateral pelvic lymph node dissection at [facility] in 2017. Final path T2N0. PSA was undetectable. He had his PSA drawn today which is still pending. He uses 1 liner per day. Urinaryincontinence worse if he consumes beer. Otherwise this remains stable. No hematuria. No erections. . Summary of old records: Urinalysis today: No results for input(s): EXTPOCURCO , EXTPOCURCH , EXTPOCAPP , EXTPOCURBS , EXTPOCURBIL , EXTPOCUKET , EXTPOCUSPG , EXTPOCUHGB , EXTPOCUPRO , EXTPOCUURO , EXTPOCULEU , EXTPOCUNIT , EXTPOCUWBC , EXTPOCUBLD , EXTPOCURBC , EXTPOCUCRY , EXTPOCUBAC , EXTPOCUTREP , EXTPOCUPH , EXTPOCUL EE in the last 72 hours. Last BUN [...] past medical history, past social history, past surgicalhistory and problem list. Past Medical History: Diagnosis Date Cancer of prostate [place] [place] [place] 2017 prostatectomy Diverticulitis Diverticulosis Fecal impaction [place] [place] [place] Inflammation of sacroiliac joint [place] [place] [place] Knee pain Low back pain Lumbar disc disorder Neurogenic claudication 12/17/2023 Osteoarthritis SBO (small bowel obstruction) [place] [place] 10/04/2023 Shingles UTI (urinary tract infection) Varicose veins of right lower extremity with pain 02/08/2020 Visual impairment 12/20/2023 Past Surgical History: Procedure Laterality Date ABDOMINAL ADHESION SURGERY COLONOSCOPY COLONOSCOPY N/A 03/25/2023 Performed by Johnathan Campbell DO at [facility] Left inguinal HIP SURGERY Left LAMINECTOMY LUMBAR MULTI LEVEL / L2-L5 N/A 12/25/2023 Performed by Shaista Nolen MD at [facility] PROSTATE BIOPSY PROSTATECTOMY REVISION TOTAL KNEE [...] -200 units per tablet Take 1 tablet bymouth in the morning and 1 tablet in [...] by mouth in the morning. methylPREDNISolone (MEDROL, CHARMAINE,) 4 mg tablet follow package directions 21 [...] orders for this visit: Adenocarcinoma of prostate ([facility]) Problem List Genitourinary Adenocarcinoma of prostate ([facility]) - Primary Overview T1c adenocarcinoma prostate Clifton 3 + 3 = 6 5% and [...] waiting. Given the Prolaris score and the Clifton 7 I again told him that active surveillance would not be recommended. He is still not sure which treatment option he would like. I gave him a referral to the radiation oncologist to discuss thattreatment further. Plan to have him return after to discuss. He additionally is using homeopathic medicine with THC which I again told him there is not great data to suggest this would help him 03/20 open radical prostatectomy with bilateral pelvic lymph node dissection [facility]. Finalpathology T2 N0 04/16/23: psa today. Recheck annually. [...] you for your understanding. documented in this encounterMartins Ferry Hospital06-24-2024 Miscellaneous Notes* Telephone Encounter - Kayleigh Garcia LPN - 04/27/2024 12:00 PM EDT This nurse called the Pt. To remind him to get his PSA drawn for his appointment with MD Brian tomorrow. Pt. Did not answer, message was left on his answering machine. documented in this [facility]06-24-2024 Telephone encounter Note* Telephone Encounter - Kayleigh Garcia LPN - 04/27/2024 12:00 PM EDT This nurse called the Pt. To remind him to get his PSA drawn for his appointment with MD Brian tomorrow. Pt. Did not answer, message was left on his answering machine. [facility]06-20-[facility] History of Present illness Narrative* Shaista Nolen MD - 04/23/2024 9:30 AM EDT Images from the original note were not included. [facility] [address] [place] [address], [address] [place] [address] * CHART NOTE ? 04/23/2024 Patient: Regan Green 1950 [id number] Nurse Practitioner: Carl Sosa, FISHER SCALLOP Physician: Shaista Nolen MD, FAANS IMPRESSION / PLAN 74 y.o. male with radicular symptoms down the RLE. Findings of L4-5 spondylolisthesis. Exam showed no evidence of weakness. As he has yet to exhaust conservative therapies we will refer him to pain management for CHANTELLE. We will refer him to aquatic therapy and prescribe him with anti-inflammatory medi cation. Recommend f/e XR and follow up to [...] conservative measures of treatment and is agreeable tothem. Denies loss of professional housing consultant strength, saddle anesthesia, urinary or bowel dysfunction, weakness, numbness or tingling, and loss of balance. Patient does not use an assistive device for ambulation. Patient isnot diabetic and former smoker. PAST MEDICAL HISTORY Past Medical History: Diagnosis Date [place] [place] prostatectomy Diverticulitis Diverticulosis Fecal impaction [place] [place] Inflammation of [place]roiliac [place] [place] Knee pain Low back pain Lumbar disc disorder Neurogenic claudication 12/17/2023 Osteoarthritis SBO (small bowel obstruction) [place] [place] 10/04/2023 Shingles UTI (urinary tract infection) Varicose veins of right lower extremity with pain 02/08/2020 Visual impairment 12/20/2023 PAST SURGICAL HISTORY Past Surgical History: Procedure Laterality Date ABDOMINAL ADHESION SURGERY COLONOSCOPY COLONOSCOPY N/A 03/25/2023 Performed by Johnathan Campbell DO at [facility] HERNIA REPAIR Left inguinal HIP SURGERY Left LAMINECTOMY LUMBAR MULTI LEVEL / L2-L5 N/A 12/25/2023 Performed by Shaista Nolen MD at [facility] PROSTATE BIOPSY PROSTATECTOMY REVISION TOTAL KNEE [...] is concerning for instability. Electronically Signed By: Shaista Nolen MD This note was created with the assistance of a speech recognition program with the goal of generating a timely record of the patient encounter. Inadvertent computerized carpenter refrigerator errors related to syntax, spelling, homophones, and/or inaudibility may be present. Scribe Statement: Scribed for and in the presence of Shaista Nolen MD by Joshua Higginbotham. Provider Statement: I, Shaista Nolen MD personally performed the services described in the documentation, as scribedby Joshua Higginbotham in my presence, and it is both accurate and complete documented in this encounterMart[facility] Instructions* Patient Instructions* Desirae Dawn - 04/23/2024 9:30 AM EDT Patient seen today by Dr. Nolen Referral to Physical and aquatic therapy Referral to Pain management L4-5 Medrol dose pack Flexeril 10 mg Xray lumbar spine FLEX / EXT Patient to call to schedule follow up in 4 weeks KM documented in this encounterMart[facility]04-10-2024 History of Present illness Narrative* JOSEMANUEL Kirk - 02/12/2024 9:15 AM EDT Images from the original note were not included. [facility] [address] [place] [address], [address] [place] [address] * CHART NOTE ? 02/12/2024 Patient: Regan Green 1950 [id number] Physician: Carl Sosa CNP CHIEF COMPLAINT Post op. HISTORY OF [...] and was advised he may have bursitis, andwas advised to try muscle relaxers which, he states, don't seem to be helping. The pain is increased with prolonged walking. He states he notices his right foot slapping the ground at the time, with weakness in the RLE. Denies loss of professional housing consultant strength, saddle anesthesia, urinary or bowel dysfunction, [...] Take 1 tablet by mouth once daily., Disp:, Rfl: naloxone (NARCAN) 4 mg/actuation spray,non-aerosol nasal spray, Administer 1 spray (4 mg total) into alternating nostrils as needed for opioid reversal., Disp: 1 each, Rfl: 0 oxyCODONE-acetaminophen (PERCOCET) 5-325 mg per tablet, Take 1 tablet by mouth in the evening. 1 to2 tablets daily., Disp: , Rfl: tiZANidine (ZANAFLEX) 4 mg tablet, , Disp: , Rfl: acetaminophen (TYLENOL) 325 mg tablet, Take 2 tablets (650 mg total) by mouth every 4 (four) hours as needed for pain or fever., Disp: , Rfl: methylPREDNISolone (MEDROL, CHARMAINE,) 4 mg tablet, Take 1 tablet (4 [...] and was advised he may have bursitis, andwas advised to try muscle relaxers which, he states, don't seem to be helping. The pain is increased with prolonged walking. He states he notices his right foot slapping the ground at the time, with weakness in the RLE. PLAN: Lumbar flexion-extension x-rays. Medrol Dosepak. Refer to physical therapy. Lumbar MRI without contrast. Patient is status post lumbar laminectomy with new pain into the rightlower extremity, sensory deficit, and 4/5 weakness. Patient will follow up with Dr. Nolen, Neurosurgeon, once MRI is complete. Electronically Signed By: Carl Sosa, FISHER SCALLOP This note was created with the assistance of a speech recognition program with the goal of generating a timely record of the patient encounter. Inadvertent computerized carpenter refrigerator errors related to syntax, spelling, homophones, and/or inaudibility may be present. JOSEMANUEL Kirk 02/12/24 1039 documented in this encounterMart[facility]04-10-2024 Instructions* Patient Instructions* Desirae Dawn - 02/12/2024 9:15 AM EDT Patient was seen today by Misti. Lumbar flexion-extension x-rays. Medrol Dosepak. Refer to physical therapy. Lumbar MRI without contrast. Patient will follow up with Dr. Nolen, Neurosurgeon, once MRI is complete. documented in this encounterMartins Ferry [facility]02-23-2024 Nurse Note* Michaelle Zeng RN - 12/27/2023 1:01 PM EST Discharge instructions provided to patient. Patient verbalized understanding, and denies any further concerns at this time. IV removed at time of discharged. Patient gathered belongings from room. Patient in no apparent distress. Patient taken to entrance b in a wheelchair with . [facility] Nurse Note* Michaelle Zeng RN - 12/27/2023 1:01 PM EST Discharge instructions provided to patient. Patient verbalized understanding, and denies any further concerns at this time. IV removed at time of discharged. Patient gathered belongings from room. Patient in no apparent distress. Patient taken to entrance b in a wheelchair with . documented in this encounterMartins Ferry [facility]02-23-2024 Plan of care note * Plan of Care - Michaelle Zeng RN - 12/27/2023 12:59 PM EST Problem: Pain Goal: Patient goal is pain score less than 4, able to rest, and participant in treatment plan as appropriate Description: INTERVENTIONS: 1. Encourage patient or legal escrow representative to report early pain and ask [...] per policy 9. Teach patient or legal escrow representative interventions for comforting 12/27/2023 1259 by [...] at the bedside 7. Instruct patient/ patient escrow representative about use of safety devices 8. Include patient/ patient escrow representative in decisions related to safety 12/27/2023 [...] hygiene technique 7. Identify and instruct patient/patient escrow representative in use of appropriate isolation precautionsfor identified infection/symptoms 8. Provide and discuss with patient/patient escrow representative on educational MDRO sheet 9. Encourage and monitor nutritional status daily and consult hardware supplies sales representative if indicated 10. Implement neutropenic guidelines as [...] care ongoing. Problem: Knowledge Deficit Goal: Patient/patient escrow representative demonstrates understanding of disease process, treatment plan,medications, and discharge instructions Description: INTERVENTIONS 1. Complete [...] of =/> 25 or indicated by [facility] Assessment Goal: Patient should be free from fall Description: Interventions: 1. [place] to environment 2. Hourly rounds addressing the [...] non-skid footwear 11. Teach patient and patient escrow representative to maintain environment for safety and [...] (cane, walker) within reach 19. Request patient escrow representative bring adaptive equipment/mobility aids from home or obtain and provide as needed 20. Consult pharmacy regarding effects of med's affecting mobility, cognition, and alternatives 21. Obtain physician order for PT if risk factors associated with mobility are present 22. Obtain physician order for OT as appropriate 23. Utilize diversional activities 24. Educate patient and patient escrow representative how to maintain a safe environment during visitationtimes (notify nurse prior to leaving bedside) 25. Consider appropriateness of medical or non-site medical director 26. Set up voiding schedule as appropriate [...] progress towards goal: Plan of care ongoing. [facility] Miscellaneous Notes* Plan of Care - Michaelle Zeng RN - 12/27/2023 12:59 PM EST Problem: Pain Goal: Patient goal is pain score less than 4, able to rest, and participant in treatment plan as appropriate Description: INTERVENTIONS: 1. Encourage patient or legal escrow representative to report early pain and ask [...] per policy 9. Teach patient or legal escrow representative interventions for comforting 12/27/2023 1259 by [...] at the bedside 7. Instruct patient/ patient escrow representative about use of safety devices 8. Include patient/ patient escrow representative in decisions related to safety 12/27/2023 [...] hygiene technique 7. Identify and instruct patient/patient escrow representative in use of appropriate isolation precautionsfor identified infection/symptoms 8. Provide and discuss with patient/patient escrow representative on educational MDRO sheet 9. Encourage and monitor nutritional status daily and consult hardware supplies sales representative if indicated 10. Implement neutropenic guidelines as [...] care ongoing. Problem: Knowledge Deficit Goal: Patient/patient escrow representative demonstrates understanding of disease process, treatment plan,medications, and discharge instructions Description: INTERVENTIONS 1. Complete [...] of =/> 25 or indicated by [facility] Assessment Goal: Patient should be free from fall Description: Interventions: 1. [place] to environment 2. Hourly rounds addressing the [...] non-skid footwear 11. Teach patient and patient escrow representative to maintain environment for safety and [...] (cane, walker) within reach 19. Request patient escrow representative bring adaptive equipment/mobility aids from home or obtain and provide as needed 20. Consult pharmacy regarding effects of med's affecting mobility, cognition, and alternatives 21. Obtain physician order for PT if risk factors associated with mobility are present 22. Obtain physician order for OT as appropriate 23. Utilize diversional activities 24. Educate patient and patient escrow representative how to maintain a safe environment during visitationtimes (notify nurse prior to leaving bedside) 25. Consider appropriateness of medical or non-site medical director 26. Set up voiding schedule as appropriate [...] progress towards goal: Plan of care ongoing. * Plan of Care - Michaelle Zeng RN - 12/27/2023 10:11 AM EST Problem: Pain Goal: Patient goal is pain score less than 4, able to rest, and participant in treatment plan as appropriate Description: INTERVENTIONS: 1. Encourage patient or legal escrow representative to report early pain and ask [...] per policy 9. Teach patient or legal escrow representative interventions for comforting Outcome: Progressing Note: [...] at the bedside 7. Instruct patient/ patient escrow representative about use of safety devices 8. Include patient/ patient escrow representative in decisions related to safety Outcome: [...] hygiene technique 7. Identify and instruct patient/patient escrow representative in use of appropriate isolation precautionsfor identified infection/symptoms 8. Provide and discuss with patient/patient escrow representative on educational MDRO sheet 9. Encourage and monitor nutritional status daily and consult hardware supplies sales representative if indicated 10. Implement neutropenic guidelines as needed 11. Review exposure to history of communicable disease and recent travel history on admission 12. Encourage annual influenza vaccine 13. Encourage pneumonia vaccine Outcome: Progressing Note: Evaluation of progress towards goal: Patient denies fever. No purulent drainage noted at site. Plan of care ongoing. Problem: Knowledge Deficit Goal: Patient/patient escrow representative demonstrates understanding of disease process, treatment plan,medications, and discharge instructions Description: INTERVENTIONS 1. Complete [...] of =/> 25 or indicated by [facility] Assessment Goal: Patient should be free from fall Description: Interventions: 1. [place]vo to environment 2. Hourly rounds addressing the [...] non-skid footwear 11. Teach patient and patient escrow representative to maintain environment for safety and [...] (cane, walker) within reach 19. Request patient escrow representative bring adaptive equipment/mobility aids from home or obtain and provide as needed 20. Consult pharmacy regarding effects of med's affecting mobility, cognition, and alternatives 21. Obtain physician order for PT if risk factors associated with mobility are present 22. Obtain physician order for OT as appropriate 23. Utilize diversional activities 24. Educate patient and patient escrow representative how to maintain a safe environment during visitationtimes (notify nurse prior to leaving bedside) 25. Consider appropriateness of medical or non-site medical director 26. Set up voiding schedule as appropriate [...] progress towards goal: Plan of care ongoing. * PT/OT/SCALE AGENT - Derick Brandt PT - 12/27/2023 9:11 AM EST Physical Therapy CANCEL - Deferred Per RN pt is dizzy and diaphoretic laying supine in bed. Will hold PT treatment and attempt to complete session as able. * Plan of Care - Pineda Alexandra RN - 12/27/2023 2:00 AM EST Problem: Pain Goal: Patient goal is pain score less than 4, able to rest, and participant in treatment plan as appropriate Description: INTERVENTIONS: 1. Encourage patient or legal escrow representative to report early pain and ask [...] per policy 9. Teach patient or legal escrow representative interventions for comforting Outcome: Progressing Note: [...] at the bedside 7. Instruct patient/ patient escrow representative about use of safety devices 8. Include patient/ patient escrow representative in decisions related to safety Outcome: [...] hygiene technique 7. Identify and instruct patient/patient escrow representative in use of appropriate isolation precautionsfor identified infection/symptoms 8. Provide and discuss with patient/patient escrow representative on educational MDRO sheet 9. Encourage and monitor nutritional status daily and consult hardware supplies sales representative if indicated 10. Implement neutropenic guidelines as needed 11. Review exposure to history of communicable disease and recent travel history on admission 12. Encourage annual influenza vaccine 13. Encourage pneumonia vaccine Outcome: Progressing Note: Evaluation of progress towards goal: patient free from s/s of infection Problem: Knowledge Deficit Goal: Patient/patient escrow representative demonstrates understanding of disease process, treatment plan,medications, and discharge instructions Description: INTERVENTIONS 1. Complete [...] of =/> 25 or indicated by [facility] Assessment Goal: Patient should be free from fall Description: Interventions: 1. [place]vo to environment 2. Hourly rounds addressing the [...] non-skid footwear 11. Teach patient and patient escrow representative to maintain environment for safety and [...] (cane, walker) within reach 19. Request patient escrow representative bring adaptive equipment/mobility aids from home or obtain and provide as needed 20. Consult pharmacy regarding effects of med's affecting mobility, cognition, and alternatives 21. Obtain physician order for PT if risk factors associated with mobility are present 22. Obtain physician order for OT as appropriate 23. Utilize diversional activities 24. Educate patient and patient escrow representative how to maintain a safe environment during visitationtimes (notify nurse prior to leaving bedside) 25. Consider appropriateness of medical or non-site medical director 26. Set up voiding schedule as appropriate [...] goal: patient maintaining body alignment per self * Plan of Care - José Miguel Devine RN - 12/26/2023 3:24 PM EST Problem: Pain Goal: Patient goal is pain score less than 4, able to rest, and participant in treatment plan as appropriate Description: INTERVENTIONS: 1. Encourage patient or legal escrow representative to report early pain and ask [...] per policy 9. Teach patient or legal escrow representative interventions for comforting Outcome: Progressing Note: [...] at the bedside 7. Instruct patient/ patient escrow representative about use of safety devices 8. Include patient/ patient escrow representative in decisions related to safety Outcome: [...] hygiene technique 7. Identify and instruct patient/patient escrow representative in use of appropriate isolation precautionsfor identified infection/symptoms 8. Provide and discuss with patient/patient escrow representative on educational MDRO sheet 9. Encourage and monitor nutritional status daily and consult hardware supplies sales representative if indicated 10. Implement neutropenic guidelines as needed 11. Review exposure to history of communicable disease and recent travel history on admission 12. Encourage annual influenza vaccine 13. Encourage pneumonia vaccine Outcome: Progressing Note: Evaluation of progress towards goal: Patient is being monitored for s/sx of infection. Problem: Knowledge Deficit Goal: Patient/patient escrow representative demonstrates understanding of disease process, treatment plan,medications, and discharge instructions Description: INTERVENTIONS 1. Complete [...] of =/> 25 or indicated by [facility] Assessment Goal: Patient should be free from fall Description: Interventions: 1. Salvo to environment 2. Hourly rounds addressing the [...] non-skid footwear 11. Teach patient and patient escrow representative to maintain environment for safety and [...] (cane, walker) within reach 19. Request patient escrow representative bring adaptive equipment/mobility aids from home or obtain and provide as needed 20. Consult pharmacy regarding effects of med's affecting mobility, cognition, and alternatives 21. Obtain physician order for PT if risk factors associated with mobility are present 22. Obtain physician order for OT as appropriate 23. Utilize diversional activities 24. Educate patient and patient escrow representative how to maintain a safe environment during visitationtimes (notify nurse prior to leaving bedside) 25. Consider appropriateness of medical or non-site medical director 26. Set up voiding schedule as appropriate [...] towards goal: Patient maintains proper anatomical alignment. * PT/OT/SCALE AGENT - Clay Ortega PT - 12/26/2023 2:55 PM EST Physical Therapy Evaluation Discharge Recommendations PT Recommendations: [...] with planned lumbar laminectomy at L2-L5 d/t radiculopathyof lumbar region. Past Medical History: Diagnosis Date [place] [place] Diverticulitis Diverticulosis Fecal impaction [place] [place] Inflammation of sacroiliac joint [place] [place] Knee pain Low back pain Lumbar disc disorder Neurogenic claudication 12/17/2023 Osteoarthritis SBO (small bowel obstruction) [place] [place] 10/04/2023 Shingles UTI (urinary tract infection) Varicose veins of right lower extremity with pain 02/08/2020 Visual impairment 12/20/2023 Past Surgical History: Procedure Laterality Date ABDOMINAL ADHESION SURGERY COLONOSCOPY COLONOSCOPY N/A 03/25/2023 Performed by Johnathan Campbell DO at [facility] HERNIA REPAIR Left inguinal HIP SURGERY Left LAMINECTOMY LUMBAR MULTI LEVEL / L2-L5 N/A 12/25/2023 Performed by Shaista Nolen MD at [facility] PROSTATE BIOPSY PROSTATECTOMY REVISION TOTAL KNEE ARTHROPLASTY Right 2012 due to swelling TOTAL KNEE ARTHROPLASTY Right 2012 PT Treatment/Interventions: Functional transfer training, LE strengthening/ROM, Endurance training,Patient/family training, Equipment eval/education, Balance, Bed mobility, Gait [...] pass Equipment: RW, gait belt, wound drain Telemetry/Greenhouse Instructor: Yes Oxygen Used: room air Other: fall [...] Gait Base of Support: Narrow Pattern: Decreased nubia, R Decreased heel strike, L Decreased heel [...] Patient will perform bed mobility with Modified [place] Dates: Start: 12/26/23 Expected End: 01/24/24 Description: Goal Description: with proper BUE placement and sequencing Disciplines: PT Problem: Gait Dates: Start: 12/26/23 Disciplines: PT Goal: Patient will perform gait with Modified [place] Dates: Start: 12/26/23 Expected End: 01/24/24 Description: With__RW__,__150__feet Goal Description: with proper gait pattern and safety awareness Disciplines: PT Problem: Stairs/Curb Dates: Start: 12/26/23 Disciplines: PT Goal: Patient will perform stairs/curb with Modified [place] Dates: Start: 12/26/23 Expected End: 01/24/24 Description: [...] Goal: Patient will perform transfers with Modified [place] Dates: Start: 12/26/23 Expected End: 01/24/24 Description: Goal Description: with proper BUE placement and sequencing Disciplines: PT Physical Therapy Care Plan (Resolved) There are no resolved problems. Principal Problem: Radiculopathy, lumbar region Active Problems: Neurogenic claudication * Discharge Planning Note - Jace Silva RN - 12/26/2023 10:30 AM EST Images from the original note were not [...] home with , self care. - Jace Barragan RN 12/26/23 11:57 AM Met with patient to review transitions of care. Pt lives with his in a one story home. There are three steps to enter with a iron railing. He states that his works during the day. Explainedthat PT has been ordered and educated him [...] smoking, drinking alcohol or doing illciit drugs. * Plan of Care - Bandar Bahena RN - 12/26/2023 4:43 AM EST Problem: Pain Goal: Patient goal is pain score less than 4, able to rest, and participant in treatment plan as appropriate Description: INTERVENTIONS: 1. Encourage patient or legal escrow representative to report early pain and ask [...] per policy 9. Teach patient or legal escrow representative interventions for comforting Outcome: Progressing Note: [...] hygiene technique 7. Identify and instruct patient/patient escrow representative in use of appropriate isolation precautionsfor identified infection/symptoms 8. Provide and discuss with patient/patient escrow representative on educational MDRO sheet 9. Encourage and monitor nutritional status daily and consult hardware supplies sales representative if indicated 10. 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 [...] rongeurs and bilateral foraminotomies were completed at theabove-mentioned levels using Kerrison punches. I then checked with a Rosebud elevator and confirmedthat there was no residual lateral recess or [...] room with stable vital signs. Complications: None. * Brief Op Note - Shaista Nolen MD - 12/25/2023 3:09 PM EST Brief Post-op Note NAME: Regan Green : 1950 PROCEDURE DATE: 12/25/2023 Surgeon: Surgeon(s) and Role: * Shaista Nolen MD - Primary Assistants: None Staff: Surgical Physician Assistant Primary: Lily Glasgow RN Surgical Physician Assistant Relief: Dina Roy RN Scrub Person: Janak [...] Bloody 12/26/23444 Output (mL) 50 mL 12/26/23 044 Implants: Implant Name Type Inv. Item Serial No. Lumber Kiln Operator Lot No. LRB No. Used Action PATCH DURA 1X1IN DRMTRX-ONLAY + CLGN RGNRT MEMBR STRL RPL [id number] - [id number] Graft PATCH DURA 1X1IN DRMTRX-ONLAY + CLGN RGNRT MEMBR STRL RPL [id number] PAULINA CRANIOMAXILLOFACIAL [id number] N/A 1 Implanted Estimated Blood Loss: 100 ml OB Surgical Procedure Blood Loss: Anesthesia EBL: * No values recorded between 12/25/2023 3:09 PM and 12/25/2023 4:54 PM * OB QBL: * No values recorded between 12/25/2023 3:09 PM and 12/25/2023 4:54 PM * Condition: stable Findings: severe lateral recess stenosis * Perioperative Nursing Note - Lou Johnson RN - 12/24/2023 7:05 AM EST Anesthesia review: Lumb Patel: 12/25: TTH: GA. only hx prostate CA. No c/o CP or SOB. EKGs: LAst PCP note Reviewed and accepted by Dr Vásquez with no further orders documented in this [facility]02-23-2024 Hospital course Narrative* Christina Varma APRN-LATOYA - 12/27/2023 12:28 PM EST Images from the original note were not included. [facility] [address] [place] [address], [address] [place] [address] * NEUROSURGERY DISCHARGE SUMMARY Patient: Regan Green Date of : 1950 Acct: [id number] Primary Care Physician: Sumanth Hill MD Admit [...] mg EC tablet Commonly known as: VOLTAREN [facility] ORAL OSTEO BI-FLEX ORAL oxyCODONE-acetaminophen 5-325 mg per tablet Commonly known as: PERCOCET tiZANidine 4 mg tablet Commonly known as: ZANAFLEX Where to Get Your Medications These medications were sent to [facility] [id number] [facility] [address] [facility] [address] [facility] [id number] methocarbamoL 500 mg tablet naloxone 4 mg/actuation [...] for 7 days. The reasons for opiate painmedication therapy in this case is acute postoperative pain. The risks versus benefits of opiate therapy, and extended opiate therapy have been discussed with the patient and have been deemed acceptable and clinically appropriate. JOSEMANUEL Lainez [facility] Patient Touch 12/27/23 12:28 PM JOSEMANUEL Sandoval 12/27/23 1238 documented in this encounterMart[facility] Hospital Discharge instructions* Discharge Instructions* JOSEMANUEL Sandoval - 12/27/2023 12:00 PM EST [...] remove at that time. Other Instructions: Call [facility] Neurosurgery with any questions, . * Attachments The following attachments cannot be sent through Care Everywhere. * Radiculopathy Discharge Instructions (Cymro) documented in this encounterMartins Ferry Hospital02-23-2024 Plan of care note * Plan of Care - Michaelle Zeng RN - 12/27/2023 10:11 AM EST Problem: Pain Goal: Patient goal is pain score less than 4, able to rest, and participant in treatment plan as appropriate Description: INTERVENTIONS: 1. Encourage patient or legal escrow representative to report early pain and ask [...] per policy 9. Teach patient or legal escrow representative interventions for comforting Outcome: Progressing Note: [...] at the bedside 7. Instruct patient/ patient escrow representative about use of safety devices 8. Include patient/ patient escrow representative in decisions related to safety Outcome: [...] hygiene technique 7. Identify and instruct patient/patient escrow representative in use of appropriate isolation precautionsfor identified infection/symptoms 8. Provide and discuss with patient/patient escrow representative on educational MDRO sheet 9. Encourage and monitor nutritional status daily and consult hardware supplies sales representative if indicated 10. Implement neutropenic guidelines as needed 11. Review exposure to history of communicable disease and recent travel history on admission 12. Encourage annual influenza vaccine 13. Encourage pneumonia vaccine Outcome: Progressing Note: Evaluation of progress towards goal: Patient denies fever. No purulent drainage noted at site. Plan of care ongoing. Problem: Knowledge Deficit Goal: Patient/patient escrow representative demonstrates understanding of disease process, treatment plan,medications, and discharge instructions Description: INTERVENTIONS 1. Complete [...] of =/> 25 or indicated by [facility] Assessment Goal: Patient should be free from fall Description: Interventions: 1. Salvo to environment 2. Hourly rounds addressing the [...] non-skid footwear 11. Teach patient and patient escrow representative to maintain environment for safety and [...] (cane, walker) within reach 19. Request patient escrow representative bring adaptive equipment/mobility aids from home or obtain and provide as needed 20. Consult pharmacy regarding effects of med's affecting mobility, cognition, and alternatives 21. Obtain physician order for PT if risk factors associated with mobility are present 22. Obtain physician order for OT as appropriate 23. Utilize diversional activities 24. Educate patient and patient escrow representative how to maintain a safe environment during visitationtimes (notify nurse prior to leaving bedside) 25. Consider appropriateness of medical or non-site medical director 26. Set up voiding schedule as appropriate [...] progress towards goal: Plan of care ongoing. [facility] [employer] [id number] Progress note* PT/OT/SCALE AGENT - Derick Brandt PT - 12/27/2023 9:11 AM EST Physical Therapy CANCEL - Deferred Per RN pt is dizzy and diaphoretic laying supine in bed. Will hold PT treatment and attempt to complete session as able. [facility] History of Present illness Narrative* Christina Varma APRN-LATOYA - 12/27/2023 6:04 AM EST Images from the original note were not included. [facility] [address] [place] [address], [address] [place] [address] * NEUROSURGERY DAILY PROGRESS NOTE DATE:12/27/2023 PATIENT'S [...] was present pre operatively. C/o mild-moderate incisional pa in. Ambulating in halls with walker. PHYSICAL EXAM [...] - Home later today JOSEMANUEL Lainez [facility] Patient Touch 12/27/23 6:04 AM To find out which ESTEFANY is on for the day please go to Rippld and use log in LiveProfile and search for PTH Neurosurgery JOSEMANUEL Sandoval 12/26/23 1010 JOSEMANUEL Sandoval 12/27/23 1228 * JOSEMANUEL Sandoval - 12/26/2023 9:51 AM EST Images from the original note were not included. [facility] [address] [place] [address], [address] [place] [address] * NEUROSURGERY DAILY PROGRESS NOTE DATE:12/26/2023 PATIENT'S [...] present during the examination. Reference air kerma: 1.38mGy Fluoroscopic time: 5 seconds Number of fluoroscopic images: 3 IMPRESSION: Intraoperative fluoroscopy provided as above. See operative report for additional details. Finalizedby José Miguel Avelar on 12/25/2023 4:51 PM [...] later vs in AM JOSEMANUEL Lainez [facility] Patient Touch 12/26/23 9:51 AM To find out which ESTEFANY is on for the day please go to Rippld and use log in LiveProfile and search for P[facility] Neurosurgery JOSEMANUEL Sandoval 12/26/23 1010 documented in this encounterMartins Ferry Hospital02-23-2024 Plan of care note * Plan of Care - Pineda Alexandra RN - 12/27/2023 2:00 AM EST Problem: Pain Goal: Patient goal is pain score less than 4, able to rest, and participant in treatment plan as appropriate Description: INTERVENTIONS: 1. Encourage patient or legal escrow representative to report early pain and ask [...] per policy 9. Teach patient or legal escrow representative interventions for comforting Outcome: Progressing Note: [...] at the bedside 7. Instruct patient/ patient escrow representative about use of safety devices 8. Include patient/ patient escrow representative in decisions related to safety Outcome: [...] hygiene technique 7. Identify and instruct patient/patient escrow representative in use of appropriate isolation precautionsfor identified infection/symptoms 8. Provide and discuss with patient/patient escrow representative on educational MDRO sheet 9. Encourage and monitor nutritional status daily and consult hardware supplies sales representative if indicated 10. Implement neutropenic guidelines as needed 11. Review exposure to history of communicable disease and recent travel history on admission 12. Encourage annual influenza vaccine 13. Encourage pneumonia vaccine Outcome: Progressing Note: Evaluation of progress towards goal: patient free from s/s of infection Problem: Knowledge Deficit Goal: Patient/patient escrow representative demonstrates understanding of disease process, treatment plan,medications, and discharge instructions Description: INTERVENTIONS 1. Complete [...] of =/> 25 or indicated by [facility] Assessment Goal: Patient should be free from fall Description: Interventions: 1. Salvo to environment 2. Hourly rounds addressing the [...] non-skid footwear 11. Teach patient and patient escrow representative to maintain environment for safety and [...] (cane, walker) within reach 19. Request patient escrow representative bring adaptive equipment/mobility aids from home or obtain and provide as needed 20. Consult pharmacy regarding effects of med's affecting mobility, cognition, and alternatives 21. Obtain physician order for PT if risk factors associated with mobility are present 22. Obtain physician order for OT as appropriate 23. Utilize diversional activities 24. Educate patient and patient escrow representative how to maintain a safe environment during visitationtimes (notify nurse prior to leaving bedside) 25. Consider appropriateness of medical or non-site medical director 26. Set up voiding schedule as appropriate [...] goal: patient maintaining body alignment per self [facility]02-22-2024 Plan of care note* Plan of Care - José Miguel Devine RN - 12/26/2023 3:24 PM EST Problem: Pain Goal: Patient goal is pain score less than 4, able to rest, and participant in treatment plan as appropriate Description: INTERVENTIONS: 1. Encourage patient or legal escrow representative to report early pain and ask [...] per policy 9. Teach patient or legal escrow representative interventions for comforting Outcome: Progressing Note: [...] at the bedside 7. Instruct patient/ patient escrow representative about use of safety devices 8. Include patient/ patient escrow representative in decisions related to safety Outcome: [...] hygiene technique 7. Identify and instruct patient/patient escrow representative in use of appropriate isolation precautionsfor identified infection/symptoms 8. Provide and discuss with patient/patient escrow representative on educational MDRO sheet 9. Encourage and monitor nutritional status daily and consult hardware supplies sales representative if indicated 10. Implement neutropenic guidelines as needed 11. Review exposure to history of communicable disease and recent travel history on admission 12. Encourage annual influenza vaccine 13. Encourage pneumonia vaccine Outcome: Progressing Note: Evaluation of progress towards goal: Patient is being monitored for s/sx of infection. Problem: Knowledge Deficit Goal: Patient/patient escrow representative demonstrates understanding of disease process, treatment plan,medications, and discharge instructions Description: INTERVENTIONS 1. Complete [...] be free from fall Description: Interventions: 1. Salvo to environment 2. Hourly rounds addressing the [...] non-skid footwear 11. Teach patient and patient escrow representative to maintain environment for safety and [...] (cane, walker) within reach 19. Request patient escrow representative bring adaptive equipment/mobility aids from home or obtain and provide as needed 20. Consult pharmacy regarding effects of med's affecting mobility, cognition, and alternatives 21. Obtain physician order for PT if risk factors associated with mobility are present 22. Obtain physician order for OT as appropriate 23. Utilize diversional activities 24. Educate patient and patient escrow representative how to maintain a safe environment during visitationtimes (notify nurse prior to leaving bedside) 25. Consider appropriateness of medical or non-site medical director 26. Set up voiding schedule as appropriate [...] towards goal: Patient maintains proper anatomical alignment. [facility]02-22-2024 Progress note* PT/OT/SCALE AGENT - Clayhailee Ortega, PT - 12/26/2023 2:55 PM EST Physical Therapy Evaluation Discharge Recommendations PT Recommendations: [...] 6 Clicks: Basic Mobility Raw Score: 18 [facility] G Code Modifier: CK Therapy Plan Need for skilled Physical Therapy to address deficits in functional mobility due to a status decline resulting from recent admit on 12/25/23 with planned lumbar laminectomy at L2-L5 d/t radiculopathyof lumbar region. Past Medical History: Diagnosis Date [place] [place] prostatectomy Diverticulitis Diverticulosis Fecal impaction [place] [place] Inflammation of sacroiliac joint [place] [place] Knee pain Low back pain Lumbar disc disorder Neurogenic claudication 12/17/2023 Osteoarthritis SBO (small bowel obstruction) [place] [place] 10/04/2023 Shingles UTI (urinary tract infection) Varicose veins of right lower extremity with pain 02/08/2020 Visual impairment 12/20/2023 Past Surgical History: Procedure Laterality Date ABDOMINAL ADHESION SURGERY COLONOSCOPY COLONOSCOPY N/A 03/25/2023 Performed by Johnathan Campbell DO at [facility] HERNIA REPAIR Left inguinal HIP SURGERY Left LAMINECTOMY LUMBAR MULTI LEVEL / L2-L5 N/A 12/25/2023 Performed by Shaista Nolen MD at [facility] PROSTATE BIOPSY PROSTATECTOMY REVISION TOTAL KNEE ARTHROPLASTY Right 2013 due to swelling TOTAL KNEE ARTHROPLASTY Right 2013 PT Treatment/Interventions: Functional transfer training, LE strengthening/ROM, Endurance training,Patient/family training, Equipment eval/education, Balance, Bed mobility, Gait [...] pass Equipment: RW, gait belt, wound drain Telemetry/Greenhouse Instructor: Yes Oxygen Used: room air Other: fall [...] Gait Base of Support: Narrow Pattern: Decreased nubia, R Decreased heel strike, L Decreased heel [...] Patient will perform bed mobility with Modified [place] Dates: Start: 12/26/23 Expected End: 01/24/24 Description: Goal Description: with proper BUE placement and sequencing Disciplines: PT Problem: Gait Dates: Start: 12/26/23 Disciplines: PT Goal: Patient will perform gait with Modified [place] Dates: Start: 12/26/23 Expected End: 01/24/24 Description: With__RW__,__150__feet Goal Description: with proper gait pattern and safety awareness Disciplines: PT Problem: Stairs/Curb Dates: Start: 12/26/23 Disciplines: PT Goal: Patient will perform stairs/curb with Modified [place] Dates: Start: 12/26/23 Expected End: 01/24/24 Description: [...] Goal: Patient will perform transfers with Modified [place] Dates: Start: 12/26/23 Expected End: 01/24/24 Description: Goal Description: with proper BUE placement and sequencing Disciplines: PT Physical Therapy Care Plan (Resolved) There are no resolved problems. Principal Problem: Radiculopathy, lumbar region Active Problems: Neurogenic claudication [facility] Progress note* Discharge Planning Note - Jace Silva RN - 12/26/2023 10:30 AM EST Images from the original note were not [...] home with , self care. - Jace Barragan RN 12/26/23 11:57 AM Met with patient to review transitions of care. Pt lives with his in a one story home. There are three steps to enter with a iron railing. He states that his works during the day. Explainedthat PT has been ordered and educated him [...] smoking, drinking alcohol or doing illciit drugs. [facility]02-[facility] Plan of care note* Plan of Care - Bandar Bahena RN - 12/26/2023 4:43 AM EST Problem: Pain Goal: Patient goal is pain score less than 4, able to rest, and participant in treatment plan as appropriate Description: INTERVENTIONS: 1. Encourage patient or legal escrow representative to report early pain and ask [...] per policy 9. Teach patient or legal escrow representative interventions for comforting Outcome: Progressing Note: [...] hygiene technique 7. Identify and instruct patient/patient escrow representative in use of appropriate isolation precautionsfor identified infection/symptoms 8. Provide and discuss with patient/patient escrow representative on educational MDRO sheet 9. Encourage and monitor nutritional status daily and consult hardware supplies sales representative if indicated 10. Implement neutropenic guidelines as [...] of progress towards goal: progressing with walker [facility]02-21-2024 Procedure note* Op Note - Shaista Nolen MD - 12/25/2023 3:09 PM EST NEUROSURGERY OPERATIVE NOTE Patient Name: Regan Green Patient Patient Date of : 1950 Date of Surgery: 12/25/2023 Preoperative Diagnosis: Degenerative lumbar spondylosis L2-L5 with neural compression and neurogenic claudication Postoperative Diagnosis: Same as above Surgeon: Shaista Nolen MD Anesthesia: General endotracheal Procedures Performed: [...] anesthetized, and positioned prone on the Unruly table.C-arm was utilized to michael a midline incision. [...] rongeurs and bilateral foraminotomies were completed at theabove-mentioned levels using Kerrison punches. I then checked with a Rosebud elevator and confirmedthat there was no residual lateral recess or [...] room with stable vital signs. Complications: None. [facility] [id number] Procedure note* Brief Op Note - Shaista Nolen MD - 12/25/2023 3:09 PM EST Brief Post-op Note NAME: Regan Green : 1950 PROCEDURE DATE: 12/25/2023 Surgeon: Surgeon(s) and Role: * Shaista Nolen MD - Primary Assistants: None Staff: Surgical Physician Assistant Primary: Lily Glasgow RN Surgical Physician Assistant Relief: Dina Roy RN Scrub Person: Janak [...] Implant Name Type Inv. Item Serial No. Lumber Kiln Operator Lot No. LRB No. Used Action PATCH DURA 1X1IN DRMTRX-ONLAY + CLGN RGNRT MEMBR STRL RPL [id number] - [id number] Graft PATCH DURA 1X1IN DRMTRX-ONLAY + CLGN RGNRT MEMBR STRL RPL [id number] PAULINA CRANIOMAXILLOFACIAL [id number] N/A 1 Implanted Estimated Blood Loss: 100 ml OB Surgical Procedure Blood Loss: Anesthesia EBL: * No values recorded between 12/25/2023 3:09 PM and 12/25/2023 4:54 PM * OB QBL: * No values recorded between 12/25/2023 3:09 PM and 12/25/2023 4:54 PM * Condition: stable Findings: severe lateral recess stenosis [facility] [id number] Attending History and physical note* Shaista Nolen MD - 12/25/2023 1:30 PM EST HISTORY AND PHYSICAL INTERVAL NOTE: Regan Green 1950 [id number] H&P reviewed. The patient was examined and there are no changes to the H&P. Shaista Nolen MD Source Note - JOSEMANUEL Daniels - 12/20/2023 6:12 PM EST Letter to pain management seeking clarification on post operative pain medications. JOSEMANUEL [facility] Contact via patient touch 12/20/23 6:21 PM To find out which ESTEFANY is on for the day please go to Rippld and use log in LiveProfile and search for P[facility] Neurosurgery (ESTEFANY and Phone Number is listed) JOSEMANUEL Daniels 12/20/23 182 JOSEMANUEL Daniels 12/25/23 2017 [facility] History and physical note* Shaista Nolen MD - 12/25/2023 1:30 PM EST HISTORY AND PHYSICAL INTERVAL NOTE: Regan Green 1950 [id number] H&P reviewed. The patient was examined and there are no changes to the H&P. Shaista Nolen MD Source Note - JOSEMANUEL Daniels - 12/20/2023 6:12 PM EST Letter to pain management seeking clarification on post operative pain medications. JOSEMANUEL [facility] Contact via patient touch 12/20/23 6:21 PM To find out which ESTEFANY is on for the day please go to Rippld and use log in LiveProfile and search for [facility] Neurosurgery (ESTEFANY and Phone Number is listed) JOSEMANUEL Daniels 12/20/23 182 JOSEMANUEL Daniels 12/25/23 5004 documented in this encounterRutland [facility] Medical CenterEcho36002-20-2024 Miscellaneous Notes* Telephone Encounter - Marek Carias MA - 12/24/2023 2:21 PM EST I spoke to Kenneth to explain how Medicare authorizes surgeries. Reminded Kenneth of surgery tomorrow 12/25/23 at 2:45pm with TTH arrival time of 12:45 pm documented in this encounterMart[facility]erry [facility]02-20-2024 Telephone encounter Note* Telephone Encounter - Marek Carias MA - 12/24/2023 2:21 PM EST I spoke to Kenneth to explain how Medicare authorizes surgeries. Reminded Kenneth of surgery tomorrow 12/25/23 at 2:45pm with TTH arrival time of 12:45 pm [facility] Nurse Note* Perioperative Nursing Note - Lou Johnson RN - 12/24/2023 7:05 AM EST Anesthesia review: Lumb Patel: 12/25: TTH: GA. only hx prostate CA. No c/o CP or SOB. EKGs: LAst PCP note Reviewed and accepted by Dr Vásquez with no further orders [facility] [employer] [id number] Miscellaneous Notes* Telephone Encounter - Hoda Villaseñor CMA - 12/20/2023 3:14 PM EST Patient called to advise office that he does not need surgery clearance from PCP. documented in this encounterMartins [facility]erry [facility]02-16-2024 Telephone encounter Note* Telephone Encounter - Hoda Villaseñor CMA - 12/20/2023 3:14 PM EST Patient called to advise office that he does not need surgery clearance from PCP. [facility] History and physical note* Sindi Jordan, CHAIRMAN AND CHIEF EXECUTIVE OFFICER-FISHER SCALLOP - 12/20/2023 1:45 PM EST PRE-ADMISSION TESTING HISTORY AND PHYSICAL EXAM DATE: 12/20/23 PCP: Sumanth Hill MD CHIEF COMPLAINT: back pain HISTORY OF PRESENT ILLNESS: Regan Green, a 73 y.o. White or male, presents to [facility] for a pre-surgical H&P. The patient [...] Medical History: Diagnosis Date [place] [place] prostatectomy Diverticulitis Diverticulosis Fecal impaction [place] [place] Inflammation of sacroiliac joint [place] [place] Knee pain Low back pain Lumbar disc disorder Neurogenic claudication 12/17/2023 Osteoarthritis SBO (small bowel obstruction) [place] [place] 10/04/2023 Shingles UTI (urinary tract infection) Varicose veins of right lower extremity with pain 02/08/2020 Visual impairment 12/20/2023 PAST SURGICAL HISTORY: Past Surgical History: Procedure Laterality Date ABDOMINAL ADHESION SURGERY COLONOSCOPY COLONOSCOPY N/A 03/25/2023 Performed by Johnathan Campbell DO at [facility] HERNIA REPA[facility] Left inguinal HIP SURGERY [...] [facility] at the time ofthe office visit. PAT labs are pending per surgeon. ASSESSMENT / DIAGNOSIS: Linked DX: Radiculopathy, lumbar region [M54.16] PLAN: Regan Green is scheduled for Linked Case Date: 12/25/2023 Linked Surgeon: Forrest Nolen MD Linked Surgery: Laminectomy Lumbar Multi Level / L2-L5. JOSEMANUEL Santoyo 12/20/23 1511 [facility] CenterAcheli[facility] Therapeutics [id number] History and physical note* JOSEMANUEL Santoyo - 12/20/2023 1:45 PM EST PRE-ADMISSION TESTING HISTORY AND PHYSICAL EXAM DATE: 12/20/23 PCP: Sumanth Hill MD CHIEF COMPLAINT: back pain HISTORY OF PRESENT ILLNESS: Regan Green, a 73 y.o. White or male, presents to [facility] for a pre-surgical H&P. The patient [...] Medical History: Diagnosis Date [place] [place] prostatectomy Diverticulitis Diverticulosis Fecal impaction [place] [place] Inflammation of sacroiliac joint [place] [place] Knee pain Low back pain Lumbar disc disorder Neurogenic claudication 12/17/2023 Osteoarthritis SBO (small bowel obstruction) [place] [place] 10/04/2023 Shingles UTI (urinary tract infection) Varicose veins of right lower extremity with pain 02/08/2020 Visual impairment 12/20/2023 PAST SURGICAL HISTORY: Past Surgical History: Procedure Laterality Date ABDOMINAL ADHESION SURGERY COLONOSCOPY COLONOSCOPY N/A 03/25/2023 Performed by Johnathan Campbell DO at [facility] HERNIA REPAIR Left inguinal HIP SURGERY Left PROSTATE BIOPSY PROSTATECTOMY REVISION TOTAL KNEE ARTHROPLASTY Right 2012 due to swelling TOTAL KNEE ARTHROPLASTY 2012 FAMILY HISTORY: Family History Adopted: Yes [...] the most recent lab values available in [place] at the time ofthe office visit. PAT labs are pending per surgeon. ASSESSMENT / DIAGNOSIS: Linked DX: Radiculopathy, lumbar region [M54.16] PLAN: Regan Green is scheduled for Linked Case Date: 12/25/2023 Linked Surgeon: Forrest Nolen MD Linked Surgery: Laminectomy Lumbar Multi Level / L2-L5. JOSEMANUEL Santoyo 12/20/23 1511 documented in this encounterACMC Healthcare SystemAbsio [facility] [id number] Instructions* Patient Instructions* Antonia Rosario RN - 12/20/2023 1:45 PM EST Your surgery/procedure is scheduled at [facility] on 12/25 at 2:45 Arrival Time 12:45 [facility] Address: [address] [place] [address] in Parking lot located on [facility]. Report to the Entrance B. Check in at the information desk the surgery. The waiting room located on the second floor. If you have any questions prior to surgery, please call Pre-Admission Clinic at [phone] between 7:30 am and 4:30 pm Saturday through Saturday. If you have questions the morning of surgery, please call the Pre-op Department at [phone]. Notify your SURGEON if you develop any [...] specifically instructed by your surgeon to stop. STOPtaking all herbal products/teas one week prior to [...] would like to schedule therapy at a [facility] facility, please call [phone] ([phone]). Do not use lotions, creams, powders, perfume, make up, cologne or after-shaves day of surgery. Remove ALL jewelry including wedding rings, body piercings,hair extensions that contain metal, nailpolish, make-up, and contact lens. You may brush [...] items and leave them in the car untilyou are taken to your room after surgery. [...] following some types of surgeries involving the eyes,ears, sinuses and throat. Always follow your doctor's [...] RIGHTS AND RESPONSIBILITIES As a patient at [facility], you have the right to: Receive medical care and be informed of who is taking care of you Be treated with dignity and respect Have a family member/escrow representative of choice and your physician notified of your admission Receive information and actively participate in decisions about your care and treatment Refuse care, treatment and services Decide who may provide your support and speak for you Access sabianist and spiritual services Participate in ethical issues [...] of hospital charges and payment methods Patient/patient escrow representative responsibilities are to: Provide information about [...] Germs live on your skin. This special soapwill help lower the amount of germs so [...] skin to hard. Be sure to wash thearea of your surgery very well. If showering, [...] surgery in clean clothes. documented in this encounter[facility]02-[facility] History of Present illness Narrative* JOSEMANUEL Daniels - 12/18/2023 4:05 PM EST Pre Op Chart Review: Date of Surgery: [...] 10/04/23 no acute pulmonary pathology JOSEMANUEL Jackson [facility] Contact via patient touch 12/21/23 6:10 AM To find out which ESTEFANY is on for the day please go to Ripp[employer] and use log in LiveProfile and search for [facility] (ESTEFANY and Phone Number is listed) JOSEMANUEL Daniels 12/25/23 1513 documented in this encounterMartins Ferry Hospital02-06-2024 Miscellaneous Notes* Telephone Encounter - Myrtle Hatch LPN - 12/10/2023 1:49 PM EST Regan calls into the office stating that he was seen previously in the office. Patient stated thathe could not have surgery due to his [...] would have to speak with Dr. Nolen medical services assistant about surgery. Patient transferred to Dr. Nolen medical services assistant. documented in this encounterMartins Ferry Hospital02-06-2024 Telephone encounter Note* Telephone Encounter - Myrtle Hatch LPN - 12/10/2023 1:49 PM EST Regan calls into the office stating that he was seen previously in the office. Patient stated thathe could not have surgery due to his [...] would have to speak with Dr. Nolen medical services assistant about surgery. Patient transferred to Dr. Nolen medical services assistant. [facility]01-24-[facility] Miscellaneous Notes* Telephone Encounter - Marek Carias MA - 11/27/2023 12:17 PM EST Kenneth left a message to ask how many physical therapy visits he should try to complete before scheduling surgery. * Telephone Encounter - Marek Carias MA - 11/27/2023 12:17 PM EST Left message for Kenneth to let him know at least six visits usually show good effort but if these are unsuccessful he needs to make sure the physical therapist is documenting increase of pain or ineffectiveness. documented in this encounterMartins Ferry Hospital01-24-2024 Telephone encounter Note* Telephone Encounter - Marek Carias MA - 11/27/2023 12:17 PM EST Kenneth left a message to ask how many physical therapy visits he should try to complete before scheduling surgery. [facility] Telephone encounter Note* Telephone Encounter - Marek Carias MA - 11/27/2023 12:17 PM EST Left message for Kenneth to let him know at least six visits usually show good effort but if these are unsuccessful he needs to make sure the physical therapist is documenting increase of pain or ineffectiveness. [facility]01-[facility] History of Present illness Narrative* Carl Sosa APRN-LATOYA - 11/14/2023 9:30 AM EST Images from the original note were not included. [facility] [address] [place] [address], [address] [place] [address] * CHART NOTE ? 11/14/2023 Patient: Regan Green 1950 [id number] Nurse Practitioner: Carl Sosa CNP Physician: Shaista Nolen MD, FAANS CHIEF COMPLAINT Low back [...] He was seen by [facility] in [place], but was advised they could no longer help. He has not had any interventional pain procedures, but was seen at [facility] in [place], [place], but was advised he should be seen here first. Patient's imaging was discussed and reviewed to their understanding in office today. Patient has not yet exhausted all conservative measures of treatment and is agreeable to them namely CHANTELLE. Denies loss of professional housing consultant s trength, saddle anesthesia, urinary or bowel dysfunction, and [...] 1 tablet by mouth every 4 (four) hoursas needed for pain., Disp: , Rfl: tiZANidine (ZANAFLEX) 4 mg tablet, Take 1 tablet (4 mg total) by mouth every 8 (eight) hours as needed for muscle spasms., Disp: , Rfl: methylPREDNISolone (MEDROL, CHARMAINE,) 4 mg tablet, follow package directions, Disp: [...] 03/25/2023 Performed by Johnathan Campbell DO at [facility] HERNIA REPAIR Left inguinal HIP SURGERY Left [...] Right achilles 2+ Left achilles 2+ Right professional housing consultant 2+ Left professional housing consultant 2+ Right Mack reflex absent and left [...] visible abscess or suspicious gas within the [id number] Close clinical follow-up and short-term progress repeat [...] but was seen at [facility] in [place], [place], but was advised he should be seen here first. Patient's imaging was discussed and reviewed to their understanding in office today. Patient has not yet exhaustedall conservative measures of treatment and is agreeable to them namely CHANTELLE. PLAN: Lumbar flexion/extension x-rays. Medrol dose charmaine. Refer to PT. Refer to Pain Management for L3-4 CHANTELLE. Follow up after injections. Electronically Signed By: Carl Sosa CNP in conjunction with Shaista Nolen MD This note was created with the assistance of a speech recognition program with the goal of generating a timely record of the patient encounter. Inadvertent computerized carpenter refrigerator errors related to syntax, spelling, homophones, and/or inaudibility may be present. Scribe Statement: Scribed for and in the presence of JOSEMANUEL Kirk by Joshua Higginbotham. JOSEMANUEL Kirk 11/14/23 1630 documented in this encounterACMC Healthcare SystemAbsio [facility] [id number] Instructions* Patient Instructions* AINSLEY Szymanski - 11/14/2023 9:30 AM EST Patient was seen by Dr. Nolen and JOSEMANUEL Chappell Patient was given an order for an x ray Lumbar spine Flex/Ext Medrol pack Physical therapy Referral for Lumbar to PT services Pain management referral for Lumbar L3-4 Patient will follow up after Pain management JA documented in this encounterACMC Healthcare SystemAbsio [facility] [id number] Miscellaneous Notes* Telephone Encounter - Dolores Anderson CMA - 11/05/2023 9:48 AM EST ED Outreach This documentation is being used for Transition of Care purposes: Yes/No: Yes ED Outreach Date: November 05, 2023 ED Outreach Method: COMMUNICATION METHOD: Telephone ED Outreach Attempt: first ED Outreach Outcome: Contacted Patient Name of ED Facility: [facility] Date of ED Discharge: 10/31/2023 [...] office with additional concerns. documented in this encounterMartins Ferry Hospital01-02-2024 Telephone encounter Note* Telephone Encounter - Dolores Anderson CMA - 11/05/2023 9:48 AM EST ED Outreach This documentation is being used for Transition of Care purposes: Yes/No: Yes ED Outreach Date: November 05, 2023 ED Outreach Method: COMMUNICATION METHOD: Telephone ED Outreach Attempt: first ED Outreach Outcome: Contacted Patient Name of ED Facility: [facility] Date of ED Discharge: 10/31/2023 [...] will contact the office with additional concerns. [facility]12-27-2023 Evaluation note* Encounter Date Diagnosis Assessment Notes Treatment Notes Treatment Clinical Notes Oct, Primary osteoarthrit is of first carpometacarpal joint of left hand (ICD-10 - M18.12) We performed a cortisone injection into the CMC joint under sterile technique. The patient tolerated this well without complication. We discussed that the finger may feel numb and tingle for hours after this injection. Oct,Sprain of other part of right shoulder region, initial encounter (ICD-10 - S43.491A) Oct,ontusion of right shoulder, initial encounter (ICD-10 - S40.011A) Oct,rthritis of right shoulder region (ICD-10 - M19.011) Oct,Subacromial impingement of right shoulder (ICD-10 - M75.41) Oct,cute pain of right shoulder (ICD-10 - M25.511) [facility] Other 10-17-2023 Evaluation note* Encounter Date Diagnosis Assessment Notes Treatment Notes Treatment Clinical Notes Aug, Primary osteoarthrit is of first carpometacarpal joint of left hand (ICD-10 - M18.12) We performed a cortisone injection into the CMC joint under sterile technique. The patient tolerated this well without complication. We discussed that the finger may feel numb and tingle for hours after this injection. Aug,Sprain of other part of right shoulder region, initial encounter (ICD-10 - S43.491A) Aug,ontusion of right shoulder, initial encounter (ICD-10 - S40.011A) Aug,rthritis of right shoulder region (ICD-10 - M19.011) Aug,Subacromial impingement of right shoulder (ICD-10 - M75.41) Aug,cute pain of right shoulder (ICD-10 - M25.511) [facility] Other 09-19-2023 Evaluation note* Encounter Date Diagnosis Assessment Notes Treatment Notes Treatment Clinical Notes Jul, Sprain of other part of right shoulder region, initial encounter (ICD-10 - S43.491A) Jul,rimary osteoarthritis of first carpometacarpal joint of left hand (ICD-10 - M18.12) Jul,ontusion of right shoulder, initial encounter (ICD-10 - S40.011A) Jul,rthritis of right shoulder region (ICD-10 - M19.011) Jul,Subacromial impingement of right shoulder (ICD-10 - M75.41)Right shoulder injected with cortisone under sterile technique, patient tolerated well Jul,cute pain of right shoulder (ICD-10 - M25.511) [facility] Other 08-21-2023 Evaluation note* Encounter Date Diagnosis Assessment Notes Treatment Notes Treatment Clinical Notes Jun, Sprain of other part of right shoulder region, initial encounter (ICD-10 - S43.491A) Patient instructed on the use of Lidocaine Patches and Voltaren Gel Jun,rimary osteoarthritis of first carpometacarpal joint of left hand (ICD-10 - M18.12)Patient doing well, he will continue to progress and allow cortisone to continue to keep pain undercontrol. Jun,ontusion of right shoulder, initial encounter (ICD-10 - S40.011A) Jun,rthritis of right shoulder region (ICD-10 - M19.011) Jun,Subacromial impingement of right shoulder (ICD-10 - M75.41) Jun,cute pain of right shoulder (ICD-10 - M25.511) [facility] Other 07-18-2023 Evaluation note* Encounter Date Diagnosis Assessment Notes Treatment Notes Treatment Clinical Notes May, Left hand pain (ICD-10 - M79.642 ) May,rimary osteoarthritis of first carpometacarpal joint of left hand (ICD-10 - M18.12)The patient is suffering from degenerative arthritis involving the thumb CMC joint. We discussed the conservative treatment options which can be beneficial in relieving pain, including hand occupational therapy, wearing a brace, and non-steroidal anti-inflammatory medication. We discussed the use of occasional cortisone injections that can provide pain relief. , We performed a cortisone injectioninto the CMC joint under sterile technique. The patient tolerated this well without complication. We discussed that the finger may feel numb and tingle for hours after this injection. Patient given order for occupational therapy and braces [facility] Other 05-16-2023 NoteCONSULTATION CONSULTATION DATE: 03/19/2023 TO: [...] our patients to inform us about any [id number]-[id number] medications or herbal remedies/nutritional supplements/alternative remedies. 2. [...] treatment options with their primary care provider.[facility] [id number] Note CONSULTATION PROCEDURE DATE: 02/21/2023 PROCEDURE: Right [...] removed. He was discharged after meeting criteriaThe [facility] [id number] NoteCONSULTATION CONSULTATION DATE: 12/18/2022 CHIEF COMPLAINT: Left [...] would like to proceed. CC: Sumanth Hill M.D.[facility]02-14-2023 NoteCONSULTATION PROCEDURE DATE: 12/18/2022 PREOPERATIVE [...] will be followed up in the office.[facility] [id number] NoteCONSULTATION CONSULTATION DATE: 11/22/2022 HISTORY OF PRESENT [...] food. We will send a referral to [facility] to have his left CMC joint evaluated. Patient does agree with this, and we will follow him up in the clinic in three months' time.[facility] [id number] NotePROCEDURE: XR HAND LT MIN 3V HISTORY: [...] authenticated by: ALESSANDRO MEJIA Date: 2022-09-26 22:39[facility] [id number] NoteCONSULTATION CONSULTATION DATE: 09/20/2022 HISTORY OF PRESENT [...] mg t.i.d., Percocet 5/325 b.i.d., multivitamin and Nemvh-Qj-Pmnx. Patient, procedure-holloway, had radiofrequency ablation of his [...] to the clinic thereafter for follow up.[facility] [id number] NoteCONSULTATION CONSULTATION DATE: 08/02/2022 HISTORY OF PRESENT [...] of care and all questions were answered.[facility] [id number] NoteCONSULTATION CONSULTATION DATE: 06/14/2022 This is a [...] and Achilles reflexes are +2. DIAGNOSIS: Code [facility] is 724.6. PLAN: We will authorize for a left SI joint injection, refill his Percocet 5/325 b.i.d. and refill Diclofenac 50 mg t.i.d. He is compliant with his vitamin regimen. At this time, I reiterated the use of heat and stretches. The patient will be followed in the clinic post-procedure and agrees to move forward.[facility] HospitalEvaluation noteNo assessment information available [facility] Work Phone: Evaluation note* Diagnosis Onset Date Resolution Status Left hand pain acuteUnilateral primary osteoarthritis of first carpometacarpal joint, left hand acute [facility] Work Phone: Evaluation note* Diagnosis Onset Date Resolution Status Left hand pain acuteUnilateral primary osteoarthritis of first carpometacarpal joint, left hand acuteLeft hand painacuteUnilateral primary osteoarthritis of first carpometacarpal joint, left handacute [facility] Work Phone: Evaluation note* Diagnosis Spondylolisthesis of lumbar region- Primary Acquired spondylolisthesis Abnormal findings on diagnostic imaging of other parts of musculoskeletal system [facility] Diagnosis Spondylolisthesis of lumbar region Acquired spondylolisthesis Abnormal findings on diagnostic imaging of other parts of musculoskeletal system documented in this encounter [facility] SystemEvaluwilmington hospital note* Diagnosis Lumbar radiculopathy, chronic- Primary [facility]* Diagnosis Neurogenic claudication- Primary Spinal stenosis of lumbar region Lumbar radiculopathy, chronic documented [facility] encounter [facility]* Diagnosis Radiculopathy, lumbar region Thoracic [...] region documented in [facility] encounter [facility]* Diagnosis Adenocarcinoma of prostate (CMS-HCC)- Primary Malignant neoplasm of prostate Spondylolisthesis of lumbar region documented [facility] encounter [facility]* Diagnosis Spondylolisthesis of lumbar region- Primary Status post lumbar laminectomy Radiculopathy, lumbar region Thoracic or lumbosacral neuritis or radiculitis, unspecified Spondylolisthesis of lumbar region documented [facility] encounter [facility]* Diagnosis Radiculopathy, lumbar region- Primary Thoracic or lumbosacral neuritis or radiculitis, unspecified Radiculopathy, lumbar region Thoracic or lumbosacral neuritis or radiculitis, unspecified Neurogenic claudication Spinal stenosis of lumbar region Neurogenic claudication Spinal stenosis of lumbar region documented [facility] encounter [facility]* Diagnosis Spondylolisthesis of lumbar region- Primary documented [facility]* Diagnosis Status post lumbar laminectomy- Primary Low back pain, non-specific Leg pain, right Pain in soft tissues of limb Weakness of right lower extremity Sensory deficit, right documented in this encounter [facility]* Diagnosis Routine general medical examination at a health care facility- Primary Lumbar radiculopathy, chronic Spondylolisthesis of lumbar region Pure hypercholesterolemia Adenocarcinoma of prostate ([facility]-HCC) Malignant neoplasm of prostate documented in this encounter [facility]* Diagnosis Spondylolisthesis of lumbar region- Primary Acquired spondylolisthesis Abnormal findings on diagnostic imaging of other parts of musculoskeletal system documented in this encounter [facility] note* Diagnosis Onset Date Resolution Status Admit Date Left hand pain acuteChristian [facility]ch 2024 9:17amUnilateral primary osteoarthritis of first carpometacarpal joint, left handacuteChristian Health Care Centerch 2024 9:17am [facility] Work Phone: Evaluation note* Diagnosis Spondylolisthesis of lumbar region- Primary Acquired spondylolisthesis Lumbar spondylosis Lumbosacral spondylosis without myelopathy Pre-op testing Preoperative examination, unspecified 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) Anemia, unspecified type Educational circumstance Spondylolisthesis of lumbar region Acquired spondylolisthesis Pre-op testing Preoperative examination, unspecified documented in this encounter [facility]* Diagnosis Radiculopathy, lumbar region- Primary Thoracic [...] diclofenac forpain control documented in this encounter [facility]* Diagnosis Spondylolisthesis of lumbar region- Primary Acquired spondylolisthesis Radiculopathy, lumbar region- Primary Thoracic or lumbosacral neuritis or radiculitis, unspecified Malignant neoplasm of prostate (HCC) Malignant neoplasm of prostate Status post total knee replacement, unspecified laterality Preop examination Preoperative examination, unspecified Spondylolisthesis of lumbar region Acquired spondylolisthesis Pre-op testing Preoperative examination, unspecified documented in this encounter [facility]* Diagnosis Hematuria, unspecified type- Primary documented in this [facility]* Diagnosis Acute bacterial simple cystitis- Primary documented in this encounter [facility]Eval[facility]* Diagnosis Encounter for staple removal- Primary Lumbar radiculopathy, chronic Status post lumbar spine operative procedure for decompression of spinal cord Acute bacterial simple cystitis Gross hematuria- Primary Adenocarcinoma of prostate (CMS-HCC) Malignant neoplasm of prostate documented in this encounter [facility]* Diagnosis Gross hematuria- Primary Adenocarcinoma of prostate (CMS-HCC) Malignant neoplasm of prostate documented in this encounter [facility]* Diagnosis Spinal stenosis of lumbar [...] Other postprocedural status documented in this encounter [facility]* Diagnosis Gross hematuria- Primary Adenocarcinoma of prostate (CMS-HCC) Malignant neoplasm of prostate Radiculopathy, lumbar region Thoracic or lumbosacral neuritis or radiculitis, unspecified documented in this encounter [facility]* Diagnosis Spinal stenosis of lumbar [...] Acute post-operative pain documented [facility] this encounter [facility]* Diagnosis Melanocytic nevus of trunk- Primary Benign neoplasm of skin of trunk, except scrotum Actinic keratosis Lentigines Seborrheic keratosis Neoplasm of unspecified behavior of bone, soft tissue, and skin documented in this encounter [facility] HealthcareEvaluation note* Diagnosis Spinal stenosis of lumbar region, [...] Acute post-operative pain documented in this encounter [facility]* Diagnosis Basal cell carcinoma (BCC) of skin of other part of torso- Primary documented in this encounter [facility] HealthcareEvaluation note* Diagnosis Onset Date Resolution Status Admit Date Left hand pain acuteSeptember 2024 8:34amUnilateral primary osteoarthritis of first carpometacarpal joint, left handacuteSeptember 2024 8:34am [facility] Work Phone: Evaluation note* Diagnosis Gross hematuria- Primary Adenocarcinoma of prostate (CMS-HCC) Malignant neoplasm of prostate Left hand pain- Primary Pain in soft tissues of limb Swelling of digit of left hand documented in this encounter [facility] Diagnosis Gross hematuria- Primary Adenocarcinoma of prostate (CMS-HCC) Malignant neoplasm of prostate Encounter for Medicare annual wellness exam- Primary Pure hypercholesterolemia Lumbar radiculopathy, chronic documented in this encounter [facility] System[facility] general Narrative - Reported* Type Description Date Medical History post knee right replacement Surgical Historyknee replacement rightSurgical HistoryherniaSurgical History prostatectomySurgical Historyacetabulum fxHospitalization Historysee [facility] Other InstructionsNot on filedocumented in this encounter [...] on filedocumented in this encounter [facility] SystemInstructions* Attachments The following attachments cannot be sent through Care Everywhere. * Hand pain (Cymro) documented in this encounterProMedica Health SystemInstructionsNot on file documented in this encounterProMedica Health SystemReason for referral (narrative)* Diagnostic Procedure Only (Routine) - AuthorizedSpecialtyDiagnoses / ProceduresReferred By ContactReferred To ContactMOLECULAR & FUNCTIONAL IMAGING Diagnoses Abnormal findings on diagnostic imaging of other parts of musculoskeletal system Procedures NM BONE 3 PHASE BONE &/JOINT IMAGING 3 PHASE STUDY Johnathan Kraus MD [address] [facility] [address] [place] [address] Molecular & Functional Imaging [address] [place] [address] Referral IDStatusReasonStart DateExpiration DateVisits RequestedVisits [id number] Auto-Generated Referral / * Diagnostic Procedure Only (Routine) - AuthorizedSpecialtyDiagnoses / ProceduresReferred By ContactReferred To ContactMOLECULAR & FUNCTIONAL IMAGING Diagnoses Spondylolisthesis of lumbar region Procedures NM BONE SPECT RP LOCLZJ BERENICE SPECT W/CT 1 AREA 1 DAY IMAGING Johnathan Kraus MD [address] [place] [address] Molecular & Functional Imaging [address] [place] [address] Referral IDStatusReasonStart DateExpiration DateVisits RequestedVisits [id number] Auto-Generated Referral [facility] for referral (narrative)* Diagnostic Procedure Only (Routine) - ClosedSpecialtyDiagnoses / ProceduresReferred By ContactReferred To ContactMOLECULAR & FUNCTIONAL IMAGING Diagnoses Abnormal findings on diagnostic imaging of other parts of musculoskeletal system Procedures NM BONE 3 PHASE BONE &/JOINT IMAGING 3 PHASE STUDY Johnathan Kraus MD [address] [place] [address] Molecular & Functional Imaging [address] [place] [address] Referral IDStatusMarciasonStart DateExpiration DateVisits RequestedVisits [id number] Auto-Generated Referral * Diagnostic Procedure Only (Routine) - ClosedSpecialtyDiagnoses / Procedures Referred By ContactReferred To ContactMOLECULAR & FUNCTIONAL IMAGING Diagnoses Spondylolisthesis of lumbar region Procedures NM BONE SPECT RP LOCLZJ BERENICE SPECT W/CT 1 AREA 1 DAY IMAGING Johnathan Kraus MD [address] [place] [address] Molecular & Functional Imaging [address] [place] [address] Referral IDStatShaquilleasonStart DateExpiration DateVisits RequestedVisits [id number] Auto-Generated Referral 1/22/05596/ [facility] for referral (narrative)* Consultation (Routine) - Pending ReviewSpecialtyDiagnoses / ProceduresReferred By ContactReferred To ContactNeurosurgery Diagnoses Lumbar radiculopathy, chronic Sumanth Hill MD [address] [place] [address] Shaista Nolen MD [address] [facility] [address] [place] [phone] Referral IDStatusReasonStart DateExpiration DateVisits RequestedVisits [id number] Review Specialty Services Required / [facility] for referral (narrative)* Consultation (Routine) - Pending ReviewSpecialtyDiagnoses / ProceduresReferred By ContactReferred To ContactPain Medicine Diagnoses Lumbar radiculopathy, chronic Neurogenic claudication Carl Sosa APRN-CNP [address] [address] Referral IDStatusReasonStart DateExpiration DateVisits RequestedVisits [id number] Review/ * Physical Therapy (Routine) - Pending ReviewSpecialtyDiagnoses / Procedures Referred By ContactReferred To ContactRehabilitation Diagnoses Lumbar radiculopathy, chronic Neurogenic claudication Carl Sosa APRN-CNP [address] [facility] [address] [place] [address] PT SERVICES REHIBILITATION [address] [place] [phone] Referral IDStatusReasonStart DateExpiration DateVisits RequestedVisits [id number] Review Special[facility] Services [facility] / [facility] SystemReason for referral (narrative)* Consultation (Routine) - Pending ReviewSpecialtyDiagnoses / ProceduresReferred By ContactReferred To ContactPain Medicine Diagnoses Spondylolisthesis of lumbar region Shaista Nolen MD [address] [place] [address] [address] [place] [phone] James Ly MD [address] [employer] [place] [address] Referral IDStatusReasonStart DateExpiration DateVisits RequestedVisits [id number] Review/ * (Routine) - Pending ReviewSpecialtyDiagnoses / ProceduresReferred By Contact Referred To ContactRehabilitation Diagnoses Spondylolisthesis of lumbar region Shaista Nolen MD [address] [place] [address] [address] [place] [phone] Referral IDStatusReasonStart DateExpiration DateVisits RequestedVisits [id number] Review Specialty Services Required [facility] SystemReason for referral (narrative)No reason for referral information availableCrystal Clinic [facility] Work Phone: Summary Purpose Family History No Family History Records Found Relationship Condition Age at Onset Recorded Date/T akil father Unknown Not SpecifiedDeceasedUnknownChronic obstructive pulmonary diseaseUnknown Relationship Condition Age at Onset Recorded Date/T akil father Unknown motherDeceasedUnknownChronic obstructive pulmonary diseaseUnknown Advance Directives No Advanced Directives Records Found Advance Directive Response Recorded Date/ Time Advance Directives No September 12, 2019 2:23pm Code StatusDate ActivatedDate InactivatedCommentsFull Code10/04/2023 11:04 AM 10/06/2023 2:53 PMCode StatusDate ActivatedDate InactivatedCommentsFull Code 10/04/2023 11:04 AM10/06/2023 2:53 PMDate ActivatedDate InactivatedComments 12/27/2023 2:16 AM12/27/2023 2:55 PMDate ActivatedDate InactivatedComments 10/04/2023 11:04 AM10/06/2023 2:53 PMDate ActivatedDate InactivatedComments 12/27/2023 2:16 AM12/27/2023 2:55 PMDate ActivatedDate InactivatedComments 10/04/2023 11:04 AM10/06/2023 2:53 PMCode StatusDate ActivatedDate Inactivated CommentsFull Code12/27/2023 2:16 AM12/27/2023 2:55 PMCode StatusDate ActivatedDate InactivatedCommentsFull Code10/04/2023 11:04 AM10/06/2023 2:53 PM Chief Complaint and Reason for Visit Chief Complaint M79.642 Chief Complaint 3 months Reason for Visit Left hand pain Unilateral primary osteoarthritis of first carpometacarpal joint, left hand Chief Complaint 3 month follow up Reason for Visit Left hand pain Unilateral primary osteoarthritis of first carpometacarpal joint, left hand Chief Complaint 3 month follow up 10 WEEKSReason for VisitLeft hand pain Unilateral primary osteoarthritis of first carpometacarpal joint, left hand Left hand pain Unilateral primary osteoarthritis of first carpometacarpal joint, left hand Chief Complaint Admit Date 3 MONTHS January 26, 2025 9:1 7am Reason for Visit Admit Date Left hand pain January 26, 2025 9:1 7am 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, left hand January 26, 2025 9:17am Chief Complaint Admit Date 3 MONTHS July 28, 2025 8:34am M79.642 - Pain in left hand July 282024 8:40am Reason for Visit Admit Date Left hand pain July 28, 2025 8:34am 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, left hand July 28, 2025 8:34am Chief Complaint Admit Date 3 MONTHS July 28, 2025 8:34am M79.642 - Pain in left hand July 282024 8:40am RECHECK LT THUMB PER CLINICAL August 172024 3:18pm Reason for Visit Admit Date Left hand pain July 28, 2025 8:34am 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, left hand July 28, 2025 8:34am Inflammation of hand joint August 17, 2025 3:18pm Left hand pain August 17, 2025 3 :18pm 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, left hand August 17, 2025 3:18pm Reason for Referral SpecialtyDiagnoses / ProceduresReferred By ContactReferred To Contact Rehabilitation Diagnoses Status post lumbar laminectomy Leg pain, right Weakness of right lower extremity Carl Sosa APRN-FISHER SCALLOP [address] [address] [facility] [address] [place] [phone] Referral IDStatusReasonStart DateExpiration DateVisits RequestedVisits [id number] Specialty Services Required [id number] / ProceduresReferred By ContactReferred To ContactRadiology Diagnoses Status post lumbar laminectomy Low back pain, non-specific Leg pain, right Weakness of right lower extremity Sensory deficit, right Procedures MR lumbar spine without contrast Carl Sosa APRN-FISHER SCALLOP [address] [address] Referral IDStatusReasonStart DateExpiration DateVisits RequestedVisits [id number] Review Additional Source Comments (unrecognized sect ion and content) No Status Records FoundNo Status Records FoundNo Status Records FoundNo Status Records FoundNo Status Records FoundNo Status Records FoundNo Status Records FoundNo Status Records FoundNo Status Records FoundNo Status Records FoundNo Status Records FoundNo Status Records Found INFORMATION SOURCE (unrecogn ized section and content) DATE CREATED AUTHOR 04/21/2018 [facility] DATE CREATED AUTHOR AUTHOR'S ORGANIZ ATION 02/25/2022 [facility] [employer] DATE CREATED AUTHOR AUTHOR'S ORGANIZ ATION 04/12/2023 [facility] DATE CREATED AUTHOR AUTHOR'S ORGANIZ ATION 04/25/2024 [facility] DATE CREATED AUTHOR AUTHOR'S ORGANIZ ATION 12/22/2024 [facility] DATE CREATED AUTHOR AUTHOR'S ORGANIZ ATION 01/30/2025 [facility] DATE CREATED AUTHOR AUTHOR'S ORGANIZ ATION 06/30/2025 [facility] DATE CREATED AUTHOR AUTHOR'S ORGANIZ ATION 07/09/2025 [facility] DATE CREATED AUTHOR AUTHOR'S ORGANIZ ATION 08/06/2025 [facility] DATE CREATED AUTHOR AUTHOR'S ORGANIZ ATION 08/07/2025 [facility] DATE CREATED AUTHOR AUTHOR'S ORGANIZ ATION 08/12/2025 [facility] DATE CREATED AUTHOR AUTHOR'S ORGANIZ ATION 08/19/2025 [facility] REASON FOR VISIT (unrecogniz ed section and content) ReasonCommentsNew PatientReasonCommentsRadiology NMSpecialtyDiagnoses / ProceduresReferred By ContactReferred To ContactMOLECULAR & FUNCTIONAL IMAGING Diagnoses Abnormal findings on diagnostic imaging of other parts of musculoskeletal system Procedures NM BONE 3 PHASE BONE &/JOINT IMAGING 3 PHASE STUDY Johnathan Kraus MD [address] [facility] [address] [place] [address] Molecular & Functional Imaging [address] [place] [address] Referral IDStatusReasonStart DateExpiration DateVisits RequestedVisits [id number] Auto-Generated Referral /[id number] DateCommentsEr Follow-up4ReasonComments New Patientnp/lumbar/[facility] films/no w/c/mailed pktSpecialtyDiagnoses / ProceduresReferred By ContactReferred To ContactNeurosurgery Diagnoses Lumbar radiculopathy, chronic Defrance, Sumanth Nielsen MD [address] [place] [address] Shaista Nolen MD [address] [facility] [address] [place] [phone] Referral IDStatusRenorth kansas city hospitalStwichita DateExpiration DateVisits RequestedVisits [id number] Review Specialty Services Required /[id number] ListUasapkqbuzhmtfu81/06/2024ReasonComments Follow-[facility]Ann[facility] ReasonCommentsFollow-upF/u mri results patient with worsening RLE radiculopathy SpecialtyDiagnoses / ProceduresReferred By ContactReferred To Contact Referral IDStatusReasonStwichita DateExpiration DateVisits RequestedVisits [id number] wk lumbarReasonCommentsPost-opPOST OP LUMBAR LAMINECTOMYReasonCommentsAnnual ExamReasonOnset DateCommentsRequest for retro C94ReasonCommentsLeg PainReasonCommentsSchedule SurgeryReason CommentsChronic PainReasonCommentsPatient UpdateReasonCommentsSuture / Staple RemovalReasonCommentsBlood in UrineReasonCommentsTransition Of CareReason CommentsPatient QuestionReasonCommentsPatient UpdatePatient QuestionReason CommentsFollow UpReasonCommentsSkin CheckReasonCommentsFollow UpSpecialty Diagnoses / ProceduresReferred By ContactReferred To Contact Diagnoses S/P lumbar fusion Numbness and tingling Acute post-operative pain Procedures OFFICE/OUTPATIENT [facility] 60 MINUTES Antonia Leija, PA-C [address] [place] [address] Phone: tel: fax: Referral IDStatusReasonStart DateExpiration DateVisits RequestedVisits [id number] PCP Requested Referral /[id number]-rdEbhclmTabyxjfrSfxb PainleftReason CommentsAnnual ExamMedicare wellness Care Teams (unrecognized sec tion and content) Team Status: Inactive Member Role Status Dates Charity Barkley MD Attending Provider Active Team Status: Active Member Role Status Dates NON STAFF Primary Care Provider Active Team Status: Inactive Member Role Status Dates Charity Barkley MD Attending Provider Active NON STAFFPrimary Care ProviderActive Team Status: Inactive Member Role Status Dates NON STAFF Primary Care Provider Active Heath Florian ProviderActive Team Status: Inactive Member Role Status Dates NON STAFF Primary Care Provider Active Start: January 29, 2024 End: January 284CHeath Zafar ProviderActiveStart: January 29, 2024 End: January 29, 2024 Team Status: Inactive Member Role Status Dates NON STAFF Primary Care Provider Active Start: May 22, 2024 End: May 22Heath Zafar ProviderActiveStart: May 22, 2024 End: May 22, 2024Team MemberRelationshipSpecialtyStart DateEnd Date Sumanth Light PCP - [facility] Medicine12/17/14 Team Status: Inactive Member Role Status Dates NON STAFF Primary Care Provider Active Start: July 31, 2024 End: July 314CHeath Zafar ProviderActiveStart: July 31, 2024 End: July 31, 2024Team MemberRelationshipSpecialtyStart DateEnd Date Sumanth Light PCP - GeneralFamily Medicine12/17/14Team MemberRelationshipSpecialtyStart DateEnd Date Sumanth Light PCP - GeneralFamily Medicine12/17/14Team MemberRelationshipSpecialtyStart DateEnd Date Sumanth Light PCP - GeneralFamily Medicine12/17/14Team MemberRelationshipSpecialtyStart DateEnd Date Sumanth Hill MD [address] [place] [address] PCP - Generalmily Medicine01/16/23Team MemberRelationshipSpecialtyStart DateEnd Date Sumanth Hill MD [address] [place] [address] PCP - Generalmily Medicine01/16/23am MemberRelationshipSpecialtyStart DateEnd Date Sumanth Hill MD [address] [place] [address] PCP - Generalmily Medicine01/16/23Team MemberRelationshipSpecialtyStart DateEnd Date Sumanth Hill MD [address] [place] [address] PCP - Generalmily Medicine01/16/23am MemberRelationshipSpecialtyStart DateEnd Date Sumanth Hill MD [address] [place] [address] PCP - Generalmily Medicine01/16/23Team MemberRelationshipSpecialtyStart DateEnd Date Sumanth Hill MD [address] [place] [address] PCP - GeneralFamily Medicine01/16/23Team MemberRelationshipSpecialtyStart DateEnd Date Sumanth Hill MD [address] [place] [address] PCP - GeneralFamily Medicine01/16/23Team MemberRelationshipSpecialtyStart DateEnd Date Sumanth Hill MD [address] [place] [address] PCP - GeneralFamily Medicine01/16/23Team MemberRelationshipSpecialtyStart DateEnd Date Sumanth Hill MD [address] [place] [address] PCP - Generalmily Medicine01/16/23Team MemberRelationshipSpecialtyStart DateEnd Date Sumanth Hill MD [address] [place] [address] PCP - Generalmily Medicine01/16/23Team MemberRelationshipSpecialtyStart DateEnd Date Sumanth Hill MD [address] [place] [address] PCP - GeneralFamily Medicine01/16/23Team MemberRelationshipSpecialtyStart DateEnd Date Sumanth Hill MD [address] [place] [address] PCP - GeneralFamily Medicine01/16/23Team MemberRelationshipSpecialtyStart DateEnd Date Sumanth Hill MD [address] [place] [address] PCP - GeneralFamily Medicine01/16/23Team MemberRelationshipSpecialtyStart DateEnd Date de [facility], Sumanth Malik PCP - GeneralFamily Medicine12/17/14 Team Status: Inactive Member Role Status Dates NON STAFF Primary Care Provider Active Start: January 26, 2025 End: January 26ollHeath Ash ProviderActiveStart: January 26, 2025 End: January 26, 2025Team MemberRelationshipSpecialtyStart DateEnd Date de Marta, Sumanth Malik PCP - GeneralFamily Medicine12/17/14Team MemberRelationshipSpecialtyStart DateEnd Date de Sumanth Nelson PCP - GeneralFamily Medicine12/17/14Team MemberRelationshipSpecialtyStart DateEnd Date de Sumanth Nelson PCP - GeneralFamily Medicine12/17/14Team MemberRelationshipSpecialtyStart DateEnd Date de [facility], Sumanth Malik PCP - GeneralFamily Medicine12/17/14Team MemberRelationshipSpecialtyStart DateEnd Date [facility] P[facility] - GeneralFamily Medicine12/17/14Team MemberRelationshipSpecialtyStart DateEnd Date Ovi Mcdaniel MD [address] [place], [place] [id number] PCP - GeneralInternal Medicine04/05/25Team MemberRelationshipSpecialtyStart Date End Date de Sumanth Nelson PCP - GeneralFamily Medicine12/17/14am MemberRelationshipSpecialtyStart DateEnd Date Ovi Mcdaniel MD [address] [place] [address] PCP - GeneralInternal Medicine04/05/25am MemberRelationshipSpecialtyStart Date End Date Ovi Mcdaniel MD [address] [place] [address] PCP - GeneralInternal Medicine04/05/25 MemberRelationshipSpecialtyStart Date End Date Ovi Mcdaniel MD [address] [place] [address] PCP - GeneralInternal Medicine04/05/25am MemberRelationshipSpecialtyStart Date End Date Ovi Mcdaniel MD [address] [place] [address] PCP - GeneralInternal Medicine04/05/25am MemberRelationshipSpecialtyStart Date End Date Ovi Mcdaniel MD [address] [place] [address] PCP - GeneralInternal Medicine04/05/25am MemberRelationshipSpecialtyStart Date End Date de Sumanth Nelson PCP - GeneralFamily Medicine12/17/14Team MemberRelationshipSpecialtyStart DateEnd Date de Sumanth Nelson PCP - Generalmily Medicine12/17/14Team MemberRelationshipSpecialtyStart DateEnd Date de Sumanth Nelson PCP - [facility] Medicine12/17/14Team MemberRelationshipSpecialtyStart DateEnd Date de Sumanth Nelson PCP - [facility] Medicine12/17/14Team MemberRelationshipSpecialtyStart DateEnd Date de Sumanth Nelson PCP - [facility]12/17/14Team MemberRelationshipSpecialtyStart DateEnd Date Sumanth Nelson PCP - [facility]12/17/14Team MemberRelationshipSpecialtyStart DateEnd Date Ovi Mcdaniel MD [address] [place] [address] PCP - [facility]04/05/25 Team Status: Inactive Member Role Status Dates NON STAFF Primary Care Provider Active Start: July 28, 2025 End: July 28Heath Zafar ProviderActiveStart: July 28, 2025 End: July 28, 2025 Team Status: Active Member Role Status Dates NON STAFF Primary Care Provider Active Start: July 28, 2025 Heath Florian ProviderActiveStart: July 28, 2025 Team MemberRelationshipSpecialtyStart DateEnd Date Ovi Mcdaniel MD [address] [place] [address] PCP - [facility] Medicine04/05/25 Team Status: Inactive Member Role Status Dates NON STAFF Primary Care Provider Active Start: August 17, 2025 End: August 17Heath Zafar ProviderActiveStart: August 17, 2025 End: August 17, 2025 Goals (unrecognized section and content) Goals may be documented in a n alternate section Source Comments (unrecognize d section and content) In the event this informatio n is protected by the Federal Confidentiality of Alcohol and Drug Abuse Patient Records regulations: The Federal rules restrict any use of the information to criminally investigate or prosecute any alcohol or drug abuse patient.[facility] SystemIn the event this information is protected by the Federal Confidentiality of Alcohol and Drug Abuse Patient Records regulations: The Federal rules restrict any use of the information to criminally investigate or prosecute any alcohol or drug abuse patient.[facility] SystemIn the event this information is protected by the Federal Confidentiality of Alcohol and Drug Abuse Patient Records regulations: The Federal rules restrict any use of the information to criminally investigate or prosecute any alcohol or drug abuse patient.[facility] SystemIn the event this information is protected by the Federal Confidentiality of Alcohol and Drug Abuse Patient Records regulations: The Federal rules restrict any use of the information to criminally investigate or prosecute any alcohol or drug abuse patient.[facility] SystemIn the event this information is protected by the Federal Confidentiality of Alcohol and Drug Abuse Patient Records regulations: The Federal rules restrict any use of the information to criminally investigate or prosecute any alcohol or drug abuse patient.[facility] SystemIn the event this information is protected by the Federal Confidentiality of Alcohol and Drug Abuse Patient Records regulations: The Federal rules restrict any use of the information to criminally investigate or prosecute any alcohol or drug abuse patient.[facility] SystemIn the event this information is protected by the Federal Confidentiality of Alcohol and Drug Abuse Patient Records regulations: The Federal rules restrict any use of the information to criminally investigate or prosecute any alcohol or drug abuse patient.[facility] SystemIn the event this information is protected by the Federal Confidentiality of Alcohol and Drug Abuse Patient Records regulations: The Federal rules restrict any use of the information to criminally investigate or prosecute any alcohol or drug abuse patient.[facility] SystemIn the event this information is protected by the Federal Confidentiality of Alcohol and Drug Abuse Patient Records regulations: The Federal rules restrict any use of the information to criminally investigate or prosecute any alcohol or drug abuse patient.[facility] SystemIn the event this information is protected by the Federal Confidentiality of Alcohol and Drug Abuse Patient Records regulations: The Federal rules restrict any use of the information to criminally investigate or prosecute any alcohol or drug abuse patient.[facility] SystemIn the event this information is protected by the Federal Confidentiality of Alcohol and Drug Abuse Patient Records regulations: The Federal rules restrict any use of the information to criminally investigate or prosecute any alcohol or drug abuse patient.[facility] SystemIn the event this information is protected by the Federal Confidentiality of Alcohol and Drug Abuse Patient Records regulations: The Federal rules restrict any use of the information to criminally investigate or prosecute any alcohol or drug abuse patient.[facility] SystemIn the event this information is protected by the Federal Confidentiality of Alcohol and Drug Abuse Patient Records regulations: The Federal rules restrict any use of the information to criminally investigate or prosecute any alcohol or drug abuse patient.[facility] SystemIn the event this information is protected by the Federal Confidentiality of Alcohol and Drug Abuse Patient Records regulations: The Federal rules restrict any use of the information to criminally investigate or prosecute any alcohol or drug abuse patient.[facility] the event this information is protected by the Federal Confidentiality of Alcohol and Drug Abuse Patient Records regulations: The Federal rules restrict any use of the information to criminally investigate or prosecute any alcohol or drug abuse patient.[facility] SystemIn the event this information is protected by the Federal Confidentiality of Alcohol and Drug Abuse Patient Records regulations: The Federal rules restrict any use of the information to criminally investigate or prosecute any alcohol or drug abuse patient.[facility] SystemIn the event this information is protected by the Federal Confidentiality of Alcohol and Drug Abuse Patient Records regulations: The Federal rules restrict any use of the information to criminally investigate or prosecute any alcohol or drug abuse patient.[facility] SystemIn the event this information is protected by the Federal Confidentiality of Alcohol and Drug Abuse Patient Records regulations: The Federal rules restrict any use of the information to criminally investigate or prosecute any alcohol or drug abuse patient.[facility] SystemIn the event this information is protected by the Federal Confidentiality of Alcohol and Drug Abuse Patient Records regulations: The Federal rules restrict any use of the information to criminally investigate or prosecute any alcohol or drug abuse patient.[facility] SystemIn the event this information is protected by the Federal Confidentiality of Alcohol and Drug Abuse Patient Records regulations: The Federal rules restrict any use of the information to criminally investigate or prosecute any alcohol or drug abuse patient.[facility] SystemIn the event this information is protected by the Federal Confidentiality of Alcohol and Drug Abuse Patient Records regulations: The Federal rules restrict any use of the information to criminally investigate or prosecute any alcohol or drug abuse patient.[facility] Scheduled Active and Recently Administ ered Medications (unrecognized section and content) Medication Order12/25//// acetaminophen (TYLENOL EXTRA STRENGTH) tablet 1,000 mg (COMPLETED) 1,000 mg, oral, Once, On Sat12/25/23 at 1445, For 1 dose, Pre-op * 1456 (Given - Provider: Vibha Saeed RN) [...] drug prior to administration, Indication: Surgical prophylaxis * 1944 (Due) * 2113 (New Bag - Provider: Shira Thomas RN) * 2143 (Stop Bag - Provider: Bandar Bahena, RN) enoxaparin (LOVENOX) syringe 40 mg 40 mg, subcutaneous, Daily, First dose on Tanya 12/26/23 at 0600, PACU & Post-op, When Creatinine Clearance 30 mL/min or greater Look-alike/sound-alike medication - verify indication for use. * 0525 (Given - Provider: Bandar Bahena, RN) * 05 (Given - Provider: Pineda Alexandra RN) gabapentin (NEURONTIN) tablet 600 mg 600 mg, oral, 2 times daily, First dose on Sat12/25/23 at 2100, PACU & Post-op, Look-alike/sound-alike medication - verify indication for use. * 2003 (Given - Provider: Shira Thomas RN) * 822 (Given - Provider: José Miguel Devine RN) * 2022 (Given - Provider: Pineda Alexandra, RN) * 0944 (Given - Provider: Michaelle Zeng, MIREILLE) gentamicin 160 mg in 0.9% sod chl 1000 mL irrigation (bag) (COMPLETED) irrigation, Once, On Sat12/25/23 at 1600, For 1 dose, Intra-op * 1520 (Given - Provider: Shaista Nolen MD - Comment: GAVE TO STERILE TABLE FOR SURGEONS USE.) * 1600 (Due) lactated ringers bolus (COMPLETED) 1,000 mL, intravenous, at 2,000 mL/hr, Administer over 0.5 Hours, Once, On Sat12/27/23 at 0915, For1 dose * 0905 (New Bag - Provider: Michaelle Zeng RN) * 0935 (Stop Bag - Provider: Michaelle Zeng, MIRIELLE) methocarbamoL (ROBAXIN) tablet 500 mg 500 mg, oral, 4 times daily, First dose on Tanya 12/26/23 at 0900 * 0912 (Given - Provider: José Miguel Devine RN) * 1414 (Given - Provider: José Miguel Devine RN) * 1752 (Given - Provider: José Miguel Devine RN) * 2149 (Given - Provider: Pineda Alexandra, RN) * 0945 (Given - Provider: Michaelle Zeng, MIREILLE) polyethylene glycol (GLYCOLAX) packet 17 g 17 g, oral, Daily, First dose on Sat12/25/23 at 1945, PACU & Post-op, Look-alike/sound-alike medication - verify indication for use. Dissolve 1 packet (17 gm) in 8 ounces of water, juice, soda, coffee or tea. * 2055 (Given - Provider: Shira Thomas RN) * 08 (Given - Provider: José Miguel Devine RN) * 0944 (Given - Provider: Michaelle Zeng, MIREILLE) sennosides-docusate sodium (SENOKOT-S) 8.6-50 mg 1 tablet 1 tablet, oral, 2 times daily, First dose on Tanya 12/26/23 at 0900, PACU & Post- op, Start Post-OpDay 1: Hold for diarrhea * 821 (Given - Provider: José Miguel Devine RN) * 2022 (Given - Provider: Pineda Alexandra RN) * 0944 (Given - Provider: Michaelle Zeng, MIREILLE) sodium chloride 0.9 % flush 3 mL 3 mL, intravenous, Every 12 hours scheduled, First dose on Sat12/25/23 at 2100, PACU & Post-op,Once tolerating oral intake * 2099 (Given - Provider: Shira Thomas RN) * 0823 (Given - Provider: José Miguel Devine RN) * 2022 (Given - Provider: Pineda Alexandra, MIREILLE) * 0900 (Not Given - Provider: Michaelle Zeng RN - Reason: IV infusing) sodium chloride 0.9 % flush 3 mL (CANCELED) 3 mL, intravenous, Every 12 hours scheduled, First dose on Sat12/25/23 at 1445, Pre-op * 1445 (Not Given - Provider: Vibha Saeed RN - Reason: IV infusing) * 2100 (Given - Provider: Shira Thomas RN) tiZANidine (ZANAFLEX) tablet 8 mg (CANCELED) 8 mg, oral, 3 times daily, First dose on Sat12/25/23 at 2000, PACU & Post-op, Look-alike/sound-alike medication - verify indication for use., Indications: muscle spasm * 194 (Given - Provider: Shira Thomas, MIREILLE) * 0800 (Not Given - Provider: José Miguel Devine RN - Reason: See Provider Order) Medication Order// lactated ringers infusion (CANCELED) 75 mL/hr, intravenous, Continuous, Starting on Sat12/25/23 at 1445, Pre-op, If fluid restriction isnot indicated, infuse at a rate up to 5 mL/kg/hr not to exceed the total replacement volume (2 ml/kg/hr) from the time NPO status was initiated. * 1445 (New Bag - Provider: Vibha Saeed RN) * 1948 (New Bag - Provider: Shira Thomas RN) * 190 (Stop Bag - Provider: Pineda Alexandra RN - Comment: not hanging at start of shift) Medication Order// acetaminophen (TYLENOL) tablet 650 mg 650 mg, oral, Every 4 hours PRN, mild pain - pain scale 1-3, fever of 38.6, Starting on Sat12/25/23at 1932, PACU & Post-op, Do not give for fever if patient received acetaminophen containing products within 4 hours. bisacodyL (DULCOLAX) suppository 10 mg 10 mg, rectal, As needed, constipation, if no BM within 6 hours of administering Milk of Magnesia, Starting on Sat12/27/23 at 0000, PACU & Post-op, Start Post- Op Day 2 Look-alike/sound-alike medication - verify indication for use. dextrose (GLUTOSE) 40 % gel 15 g 15 g, oral, As needed, low blood sugar, blood glucose less than 70 mg/dL, Starting on Sat12/25/23 at 1932, PACU & Post-op, If patient conscious and taking PO. If blood glucose is not greater than70 mg/dL after initial treatment, repeat treatment. dextrose [...] glucose less than 70 mg/dL and unconscious orNPO with IV access, Starting on Sat12/25/23 at [...] medication orders once tolerating oral intake and switchto oral regimen. Notify prescriber if patient reported pain level remains unchanged or uncontrolledwith current medication regimen. Look-alike/sound-alike medication - verify [...] Look-alike/sound-alike medication - verify indication for use. * 1723 (Given - Provider: Sheri Adler RN) * 1741 (Given - Provider: Sheri Adler RN) glucagon HCL injection 1 mg 1 mg, intramuscular, As needed, low blood sugar, blood glucose less than 70 mg/dL and unconscious or NPO without IV access., Starting on Sat12/25/23 at 1932, PACU & Post-op, If conscious and not NPO, immediately follow with meal tray or high protein (7Grams) snack if tray not available. If NPO,initiate IV 5% Dextrose/Water at 100 mL/hr and contact prescriber for additional orders. If blood glucose is not greater than 70 mg/dL after initial treatment, repeat treatment. lidocaine PF (XYLOCAINE) 10 mg/mL (1 %) injection 1 mg (CANCELED) 1 mg (0.1 mL), intradermal, As needed, times 1 per IV attempt for IV start pain control, Starting on Sat12/25/23 at 1434, Pre-op * 1445 (Given - Provider: Vibha Saeed RN) lidocaine-EPINEPHrine (XYLOCAINE W/EPI) 1 %-[id number] injection (CANCELED) As needed, Starting on Sat12/25/23 at 1551, Intra-op * 1551 (Given - Provider: Shaista Nolen MD) magnesium hydroxide (MILK OF MAGNESIA) [...] midazolam (VERSED) ineffective, Indication: Other, Indication: anxiety * 1458 (Given - Provider: Vibha Saeed RN) ondansetron (PF) (ZOFRAN) injection 4 mg 4 mg, intravenous, Every 6 hours PRN, nausea, vomiting, Starting on Sat12/25/23 at 1932, PACU &Post-op, Administer over 2-5 minutes. oxyCODONE (ROXICODONE) immediate release tablet 10 mg(Linked Group 2) 10 mg, oral, Every 3 hours PRN, severe pain - pain scale 7-10, Starting on Sat12/25/23 at 1715, PACU & Post-op, Look-alike/sound-alike medication - verify indication for use. Immediate release. * 172 (Given - Provider: Sheri Adler RN) * 2056 (Given - Provider: Shira Thomas RN) * 2335 (Given - Provider: Bandar Bahena, RN) * 0451 (Given - Provider: Bandar Bahena, MIREILLE) * 1227 (Given - Provider: José Miguel Devine RN) * 1752 (Given - Provider: José Miguel Devine, RN) * 0944 (Given - Provider: Michaelle Zeng, RN) oxyCODONE (ROXICODONE) immediate release tablet 5 mg(Linked Group 2) 5 mg, oral, Every 3 hours PRN, moderate pain - pain scale 4-6, Starting on Sat12/25/23 at 1715, PACU & Post-op, Look-alike/sound-alike medication - verify indication for use. Immediate release. * 1721 (See Alternative - Provider: Sheri Adler RN) * 2056 (See Alternative - Provider: Shira Thomas RN) * 2335 (See Alternative - Provider: Bandar Bahena, RN) * 0451 (See Alternative - Provider: Bandar Bahena, RN) * 1227 (See Alternative - Provider: José Miguel Devine RN) * 1752 (See Alternative - Provider: José Miguel Devine RN) * 0944 (See Alternative - Provider: Michaelle Zeng, RN) sodium chloride 0.9 % flush 3 mL 3 mL, intravenous, As needed, line care, before and after each intermittent use, Starting on Sat12/25/23 at 1932, PACU & Post-op, Once tolerating oral intake thrombin (recombinant) (RECOTHROM) solution (CANCELED) As needed, Starting on Sat12/25/23 at 1556, Intra-op * 1520 (Given - Provider: Shaista Nolen MD) tiZANidine (ZANAFLEX) tablet 4 mg (CANCELED) 4 mg, oral, Every 6 hours PRN, muscle spasms, Starting on Sat12/25/23 at 1434, Pre-op, Look-alike/sound-alike medication - verify indication for use. * 1457 (Given - Provider: Vibha Saeed RN) Order Group 1: fentaNYL (SUBLIMAZE) injection 12.5 mcgJump to med 12.5 mcg, intravenous, Every 1 hour prn, mild pain - pain scale 1-3, Starting on Sat12/25/23 at 1932, PACU & Post-op, Discontinue NPO pain medication orders once tolerating oral intake and switchto oral regimen. Notify prescriber if patient reported pain level remains unchanged or uncontrolledwith current medication regimen. Look-alike/sound-alike medication - verify [...] BE BASED ON THE PRIMARY CLINICAL RECORDS. [employer] [facility]. provides no warranty or guarantee of the accuracy or completeness of information in this document.
--- NOTE | 2025-09-22 08:53 | PM.CN ---
Consult Note: HPI Data of Consult Patient: known to practice within the last 3 years Requesting Physician: Danielle Davila NP Primary Care Provider: SUMANTH BECK Consult Narrative Reason for consult: f/u Narrative: Regan Green a pleasant 75 year old male presents for evaluation. longstanding hx of back pain and right knee pain post replacement unresponsive to > 6 weeks of PT/provider guided HEP, heat, ice, tylenol and NSAIDs. prior advanced imaging consistent with multilevel lumbar spondylosis, stenosis, and lumbar DDD. pt status post L4/5 fusion, continues to f/u with NS pending PT. pain today 4/10 aching in low back 6/10 in right knee increasing to 10/10 with walking and activity. utilizing flexeril, gabapentin, diclofenac, and perocet with benefit without side effects. cannot afford interventional therapy at this time. cc:: CC: Danielle Davila NP Review of Systems ROS Status of ROS 10 or more systems reviewed and unremarkable except as noted in history and below Musculoskeletal Reports: back pain and joint pain PFSH PFSH Medical History Rheumatoid arthritis ?M06.9 - Rheumatoid arthritis, unspecified (ICD-10) Low back pain ?M54.50 - Low back pain, unspecified (ICD-10) Prostate cancer ?C61 - Malignant neoplasm of prostate (ICD-10) Sacroiliitis, not elsewhere classified ?M46.1 - Sacroiliitis, not elsewhere classified (ICD-10) Surgical History Status post hip surgery ?Z98.890 - Other specified postprocedural states (ICD-10) S/P hernia repair ?Z98.890 - Other specified postprocedural states (ICD-10) ?Z87.19 - Personal history of other diseases of the digestive system (ICD-10) S/P total knee arthroplasty ?Z96.659 - Presence of unspecified artificial knee joint (ICD-10) S/P prostatectomy ?Z90.79 - Acquired absence of other genital organ(s) (ICD-10) Meds Home Medications and Allergies Home Medications ?Medication ?Instructions ?Recorded ?Confirmed ?Type OSCAL WITH D PO .QD 04/18/23 History glucosamine-chondroitin 250 mg-200 2 tab PO .QD 04/18/23 01/25/25 History mg tablet (Osteo Bi-Flex) multivitamin 1 tab PO DAILY 04/18/23 01/25/25 History vitamin B complex (Vitamins B 1 tab PO DAILY 01/22/24 01/25/25 History Complex tablet) cyclobenzaprine 10 mg tablet 10 mg PO TID PRN muscle spasm #90 12/09/24 01/25/25 Rx tabs gabapentin 300 mg capsule 300 mg PO TID #90 caps 12/16/24 01/25/25 Rx oxycodone-acetaminophen 5 mg-325 1 tab PO BID PRN pain #60 tabs 03/10/25 Rx mg tablet (Percocet) diclofenac sodium 75 mg 75 mg PO BID PRN pain #60 tabs 04/19/25 Rx tablet,delayed release oxycodone-acetaminophen 5 mg-325 1 tab PO BID PRN pain #60 tabs 04/29/25 Rx mg tablet (Percocet) oxycodone-acetaminophen 5 mg-325 1 tab PO BID PRN pain #60 tabs 05/26/25 Rx mg tablet (Percocet) cyclobenzaprine 10 mg tablet 10 mg PO TID PRN muscle spasm #90 06/23/25 Rx tabs gabapentin 300 mg capsule 300 mg PO TID #90 caps 06/23/25 Rx oxycodone-acetaminophen 5 mg-325 1 tab PO BID PRN pain #60 tabs 06/23/25 Rx mg tablet (Percocet) diclofenac sodium 75 mg 75 mg PO BID PRN pain #60 tabs 07/27/25 Rx tablet,delayed release gabapentin 300 mg capsule 300 mg PO TID #90 caps 07/27/25 Rx oxycodone-acetaminophen 5 mg-325 1 tab PO BID PRN pain #60 tabs 07/27/25 Rx mg tablet (Percocet) naloxone 4 mg/actuation nasal 4 mg intranasal Q3M PRN opioid 07/28/25 Rx spray (Narcan) overdose #2 ea gabapentin 300 mg capsule 300 mg PO TID #90 caps 08/25/25 Rx oxycodone-acetaminophen 5 mg-325 1 tab PO BID PRN pain #60 tabs 08/25/25 Rx mg tablet (Percocet) Allergies Allergy/AdvReac Type Severity Reaction Status Date / Time Sulfa (Sulfonamide Allergy Rash Verified 04/29/25 10:21 Antibiotics) Exam Constitutional Documenting provider has reviewed patient's vital signs: yes Common normals: no apparent distress, oriented x3 and alert General appearance: cooperative HENMT Common normals: normocephalic, hearing grossly normal bilaterally and moist oral mucous membranes Head and scalp: normocephalic Eye Common normals: PERRL Pupil: PERRL Neck & C-Spine Common normals: full ROM General: normal visual inspection Chest Common normals: inspection of chest normal Respiratory Common normals: normal respiratory effort, no retractions and no use of accessory muscles Back & Pelvis Lumbar spine/lower back: ROM limited and straight leg raise negative bilaterally Other: strength 5/5 in BLE altered sensation right L4/5 Extremity Right lower extremity: knee joint Other: moderate pain with palpation, mild edema noted. ROM intact Neuro Common normals: oriented x3 Sensorium/orientation: alert Psych Common normals: mental status grossly normal, thought process normal, cooperative, affect normal, speech normal and activity/motor behavior normal Speech: normal speech Thought process: normal thought process Results Additional Findings Additional findings: If on a controlled substance or opioids, I have checked an [place]AR[place] report on this patient and there are no aberrancies noted in the prescribing history.??If on a controlled substance or opioid a drug screen was completed and reviewed within the last year, and if there has not been a drug screen completed we ordered one today to monitor higher risk, state monitored pain medication use. As part of providing excellent, safe, comprehensive care, the following was completed at our patient's visit: 1. A medication reconciliation and review to ensure accurate knowledge of current/active medications, including asking our patients to inform us about any [id number] medications or herbal remedies/nutritional supplements/alternative remedies. 2. A review to specifically ensure our patients have had annual screening for screening for depression, screening for tobacco use, and screening for unhealthy alcohol use. For concerning screenings had a discussion with the patient, provided patient education, and recommended follow-up with primary care provider when appropriate. If patient noted with a risk of falling, they received education on strength, gait, and balance training to prevent future risk of falling. Portions of this note may have been carried over from the previous visit and updated as appropriate. Please note this office utilizes paper charting in addition to the electronic medical record. A list of current medications, vitals, and PMH is available there as the clinical staff outside of myself do not have access to [facility] charting during the clinic day operations. As part of providing quality comprehensive care the current medications, vitals, and PMH were reviewed in the paper chart. Assessment and Plan Assessment and Plan (1) Status post right knee replacement: Assessment and Plan: The patient has had over 3 months of moderate to severe right knee pain with functional impairment and inadequate response to conservative care including NSAIDS (unless there are contraindication such as concurrent blood thinners), multiple oral or topical pain medications, and home exercise program/physical therapy.? Patient has completed >6 weeks of guided home exercise program and/or formal physical therapy program without relief of their symptoms.? The Oswestry Disability Index was completed, and the patient scored a 32%.? (2) Chronic pain of right knee: (3) Myalgia, other site: (4) Lumbar stenosis with neurogenic claudication: Assessment and Plan: 01/25/25 right L4/5 L5/S1 TFESI >50% improvement in radicular pain greater than 3 months (5) Lumbar spondylosis: (6) Post laminectomy syndrome: (7) Lumbar radiculopathy: (8) Chronic prescription opiate use: Assessment and Plan: I feel these medications are improving the patient's quality of life and allow them to tolerate activities of daily living as well as participate in recreational activity.? The patient does not report intolerable side effects. The patient is NOT opioid naive and non-pharmacologic and non-opioid treatment has failed to significantly relieve the patient's pain and improve functionality. The patient has a diagnosis that is related to a somatic or visceral pain etiology. ? ?? I reviewed with the patient the potential risks and side effects with the use of? opioid medications including but not limited to respiratory depression,? sedation, and even . Within the last 12 months I have verified the patient has access to naloxone should? these effects occur. The patient was advised to let? their family know they had Naloxone in case they would need to administer? the medication. I advised the patient to avoid the use of any other? sedation substances including alcohol, THC, and benzodiazepines while? taking opioid medications due to the risk of compounding side effects and? detrimental outcomes. within the last 12 months I have reviewed the [employer], pain treatment agreement and urine drug screen.? ?? A drug screen was completed within the last year, and no aberrancies were noted regarding their use of controlled substances. The patient understands they are subject to the terms and conditions of the pain contract that they have signed. ? ?? I have checked an [place]ARRS report on this patient today and there are no aberrancies noted in the prescribing history.? Plan when pt calls can proceed with right genicular nerve block x1 under fluoroscopy in consideration of RFA for chronic right knee pain post TKR continue current medications risks vs benefits reviewed continue f/u with NS as planned f/u 3 months for medication management, sooner if needed
== END 2025-09-22 08:22 | disposition home or self-care (01) ==
LOC: PM 08:22
PROVIDERS: PCP Family Medicine; Visit Provider Nurse Practitioner
DX: M48.062 Spinal stenosis, lumbar region with neurogenic claudication (principal); M79.18 Myalgia, other site; M25.561 Pain in right knee; G89.29 Other chronic pain; M47.816 Spondylosis without myelopathy or radiculopathy, lumbar region; M96.1 Postlaminectomy syndrome, not elsewhere classified; Z79.891 Long term (current) use of opiate analgesic; Z96.651 Presence of right artificial knee joint
CPT/HCPCS: G0463